=== PATIENT | male | born 1940 | race Caucasian/White ===

== ENCOUNTER 2016-05-14 15:08 | Inpatient (IN) | payer MEDICARE, MEDICAID ==
[~2016-05-14] VITALS: Ht 182.9 cm; Wt 74.5 kg
[~2016-05-14 15:08] MED LIST: ASPIRIN ADULT L81 M3 PO; CARDIZEM LA240 MG PO; CEFDINIR300 M1 PO; CYCLOBENZAPRINE10 MG PO; DELTASONE20 MG PO; DIGITEK250 MCG PO; FLEXERIL10 MG PO; OMEPRAZOLE20 MG PO; POTASSIUM CHLO10 ME4 PO; SYMBICORT1 AE1 IH; TAMSULOSIN HYD0.4 MG PO; VICODIN 7.5/501 EACH PO; XARELTO20 MG PO
--- NOTE | 2016-05-14 15:42 | HISTORY AND PHYSICAL REPORT ---
Demographics: Admit date: 05/14/16 Chief complaint: SHORTNESS OF BREATH PRIMARY DIAGNOSIS: EXACERBATION OF COPD FAILED OP TEST Allergies: Coded Allergies: No Known Allergies (01/02/16) History of present illness: History of present illness: 75 YEAR OLD male with COPD and atrial fibrillation who presented to office last week with complaint of dyspneA WITH cough productive of yellow sputum. patient was started on antibiotics. In follow up 72 hours later patient had not improved and was more dypneic . Despite this he refused hospitalization. Patient returned to today feeling poorly with dyspnea and cough. His lungs had diffuse rhonchi and wheezes with right basilar rales. He has been admitted for treatment of acute bronchitis and pneumonia with copd exacerbation Past medical history: Family HX Family Hx Insignificant Yes Immunization HX DT/Tetanus Unknown Flu NEVER Pneumonia REFUSED General CAD? No Angina: No AL: Yes Hypertension? Yes Hyperlipidemia? Yes CHF? No DVT? No PE? No COPD? Yes Asthma? Yes Anemia? No GERD? No Gastric ulcers? No GI Bleed? No Hernia? No Thyroid Problems? No Hypothyroidism? No CVA? No Seizures? No Diabetes? No Renal Insuffiency? No UTI? No Stones? No GB Disease: No Nephritic Syndrome? No Asplenia? No Hepatitis? No Sickle Cell Disease? No Arthritis? No Migraines? No Cataracts? Yes Glaucoma? No MRSA? No HIV? No TB? No Anxiety? No Depression? No Cancer? No More? Yes Additional hx: ATRIAL FIB Past Surgical HX Previous Surgery?Y HERNIA REPAIR 1959' LT MUSCLE ARM & LEG RIGHT KNEE SURGERY CATARACTS ON R EYE Current home meds: Reported Medications Aspirin (Aspirin EC) 81 MG PO DAILY 30 Days Potassium Chloride 10 MEQ PO DAILY 30 Days Omeprazole (Omeprazole 20MG) 20 MG PO DAILY 30 Days BUDESONIDE/FORMOTEROL FUMARATE (Symbicort 160-4.5 Mcg Inhaler) 1 PUFF IH BID 30 Days Cyclobenzaprine Hcl (Cyclobenzaprine 10MG) 10 MG PO DAILY TAMSULOSIN HCL (Tamsulosin 0.4MG) 0.4 MG PO QHS Digoxin (Digitek) 250 MCG PO DAILY Social Hx: Smoking HX Tobacco No Alcohol Alcohol: No Hx of Drug Use Drug Use? No Review of systems: Constitutional chills, fever. Respiratory see HPI. Cardiovascular no symptoms reported Gastrointestinal/Abdominal no symptoms reported Genitourinary no symptoms reported. Musculoskeletal no symptoms reported. Neurological Yes: no symptoms reported. 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 COPD exacerbation 2. Pneumonia Plan: admit for IV antibiotics, steroids
[2016-05-14 16:05] LABS: HEMOGLOBIN 17.4 g/dL (14.1-18.0); LYMPH # 4.7 K/mm3 (0.7-4.5); LYMPH % 23.5 % (10-50)
[2016-05-14 16:08] LABS: BUN 26 mg/dL (7-18); GFR (ESTIMATED) 59 ML/MIN (>60)
[2016-05-14 16:41] VITALS: BP 110/80
[2016-05-14] MEDS ORDERED: DALIRESP500 MCG PO (16:58)
[2016-05-14] MEDS ORDERED: AZITHROMYCIN250 M1 PO (16:59)
[2016-05-14] MEDS ORDERED: FUROSEMIDE 40MG40 M1 PO (16:59)
[2016-05-14] MEDS ORDERED: ACETAMINOPHEN-H1 TA2 PO (17:00)
[2016-05-14 17:06] LABS: NEUTROPHILS 63 % (42-76)
[2016-05-14 17:14] VITALS: BP 117/79
[2016-05-14 17:27] LABS: ALLEN'S TEST Y
[2016-05-14 17:28] LABS: OXYGEN RA
[2016-05-14 17:49] VITALS: BP 120/73
[2016-05-14 19:47] VITALS: BP 116/52
[2016-05-14 20:11] VITALS: BP 116/52
[2016-05-15] VITALS (8 sets, daily range): BP systolic 111–135; BP diastolic 62–77
[2016-05-15 06:19] LABS: LYMPH % 29.1 % (10-50)
[2016-05-15 06:31] LABS: HEMOGLOBIN 15.1 g/dL (14.1-18.0)
--- NOTE | 2016-05-15 06:52 | RADIOLOGY REPORT PS360 ---
CHEST(2 VIEWS-NOT PORTABLE) HISTORY: shortness of breath, emphysema R/O PNEUMONIA ORDERING PHYSICIAN: Fletcher Stevenson MD PATIENT AGE: 75 years COMPARISON: 08/24/2015 FINDINGS: The cardiomediastinal silhouette and pulmonary vascularity are within normal limits. Chronic interstitial changes are present with pleural thickening bilaterally and chronic parenchymal opacity in the left lower lobe. The findings are similar when compared to 07/13/2015. No lobar consolidation or collapse.. No acute bony abnormalities. IMPRESSION: COPD with chronic pleural parenchymal changes, no acute finding
--- NOTE | 2016-05-15 07:04 | ACUTE CARE PROGRESS NOTE (QUA) ---
Progress Notes Subjective Date 05/15/16 Time 0701 Note Patient reports feeling about the same. Cough is productive of thick white sputum. No fevers overnight. He is awake and alert. Standing at bedside he has audible chest congestion. When asked to cough he seems mostly to produce sputum and phlegm from the back of his throat as opposed coughing. Lung exam reveals diffuse rhonchi and expiratory wheezes. Heart has a regular rate and rhythm. Chest x-ray from yesterday when compared to previous chest x-rays shows chronic changes with questionable RIGHT lower lobe infiltrate best seen on the lateral film Await cultures. Continue antibiotics. Start steroids. Speech consult for swallowing evaluation Objective Findings Last VS-Temp:97.9 B/P:111/62 Pulse:65 Resp:18 SaO2:96 OXYGEN Last weight lbs:164 oz:4 K.503 Method:Bed Scales Laboratory Tests 05/15/16 0600: WBC 17.2 H, RBC 5.34, Hgb 15.1, Hct 46.0, MCV 86.2, RDW 14.9, Plt Count 186, MPV 9.2, Gran % 60.4, Gran # 10.4 H, Lymphocytes % 29.1, Monocytes % 5.3, Eosinophils % 4.6, Basophils % 0.6, Lymphocytes # 5.0 H, Monocytes # 0.9, Eosinophils # 0.8 H, Basophils # 0.1, PUBS MCHC 32.5, MCH 28.0 05/14/16 1726: ABG pH 7.44, ABG pCO2 (Temp Corrct 42.9, ABG pO2 (Temp Correct 65.0 L, ABG HCO3 29.2 H, ABG Total CO2 30.0 H, ABG O2 Sat (Calculated) 93, Serg Test Y, Blood Gas Comments RIGHT RADIAL 05/14/16 1550: Sodium 136, Potassium 4.2, Chloride 96 L, Carbon Dioxide 35 H, BUN 26 H, Creatinine 1.2, Estimated GFR (MDRD) 59, Glucose 118 H, Calcium 8.6, WBC 19.8 H, RBC 6.17, Hgb 17.4, Hct 53.1 H, MCV 86.0, RDW 15.0, Plt Count 206, MPV 9.8, Gran % 66.8, Gran # 13.2 H, Total Counted 100, Lymphocytes % 23.5, Monocytes % 5.6, Eosinophils % 3.2, Basophils % 0.9, Neutrophils 63, Lymphocytes (Manual) 32 , Lymphocytes # 4.7 H, Monocytes (Manual) 5, Monocytes # 1.1 H, Eosinophils # 0.6 H, Basophils # 0.2, Platelet Estimate NORMAL, Macrocytosis 3+, PUBS MCHC 32.8, MCH 28.2, Mycoplasma pneumon IgM NON-REACTIVE Microbiology 05/14 2154 SPUTUM: Sputum Culture - RES 05/14 2154 SPUTUM: Gram Stain - RES 05/14 1549 BLOOD: Anaerobic Blood Culture - RECD 05/14 155 BLOOD: Aerobic Blood Culture - RECD 05/14 155 BLOOD: Anaerobic Blood Culture - RECD 05/14 1549 BLOOD: Aerobic Blood Culture - RECD Reviewed: medications, vital signs, lab results Assessment/Plan Problem List 1. COPD exacerbation 2. Pneumonia Patient condition Stable This inpt stay is expected to cross 2 MNs from start of care Yes
--- NOTE | 2016-05-15 07:42 | PHARMACY CLINIC NOTE ---
Patient Demographics Patient Demographics Admission date: 05/14/16 Date: 05/15/16 Time: 0741 Allergies Coded Allergies: No Known Allergies (01/02/16) HEIGHT- FT: 6 IN: 0.00 K.503 VTE General Information Labs: Laboratory Tests 05/15 05/14 0600 1550 Hematology Hgb (14.1 - 18.0 g/dL) 15.1 17.4 Hct (42.0 - 52.0 %) 46.0 53.1 H Plt Count (142 - 424 K/mm3) 186 206 Disclaimer The following section includes nursing documentation that has been pulled in for pharmacy review. Clinical trial participant? No VTE prophylaxis [id number] VTE prophylaxis ordered? Yes Type of prophylaxis/treatment: KISHOR at 0742
--- NOTE | 2016-05-15 15:33 | ST BEDSIDE DYSPHAGIA EVAL ---
SUBJECTIVE-DYSPHAGIA Date: 05/15/16 Time: 1500 Eval Type: Initial Certification - Admitted Date: 05/14/16 Primary Diagnosis: EXACERBATION OF COPD FAILED OP TEST Reason for Consult: DYSPHAGIA Pt/Caregiver Concerns: PATIENT REPORTS NO DIFFICULTIES Onset of symptoms- 05/14/16 0100 Symptoms have worsened? NO improved? NO resolved? NO since onset. Current Diet: REGULAR/THINS Allergies Coded Allergies: No Known Allergies (01/02/16) Home Medications Reported Medications Roflumilast (Daliresp) 500 MCG PO DAILY #30 Azithromycin (Azithromycin 250MG Tab) 250 MG PO DAILY #15 Furosemide 40 MG PO BID #30 HYDROCODONE/ACETAMINOPHEN (Hydrocodon-Acetaminophen 5-325) 1 TAB PO PRN PRN PAIN #30 Aspirin (Aspirin EC) 81 MG PO DAILY 30 Days Potassium Chloride 10 MEQ PO DAILY 30 Days Omeprazole (Omeprazole 20MG) 20 MG PO DAILY 30 Days BUDESONIDE/FORMOTEROL FUMARATE (Symbicort 160-4.5 Mcg Inhaler) 1 PUFF IH BID 30 Days Cyclobenzaprine Hcl (Cyclobenzaprine 10MG) 10 MG PO DAILY TAMSULOSIN HCL (Tamsulosin 0.4MG) 0.4 MG PO QHS Digoxin (Digitek) 250 MCG PO DAILY Is this assessment r/t stroke? No OBJECTIVE COMMUNICATION/COGNITION Barriers to communication/cog? No ORAL-MOTOR STRUCTURE/FUNCTION Structure/Function WFL: Labial, Buccal, Lingual, Velar, Mandibular. Facial Asymmetry None Laryngeal Function Strong: Voluntary Cough, Throat Clearing. Vocal Quality Normal Dentition Edentulous RESPIRATORY STATUS/HISTORY Is resp status/hx a concern? Yes Requires Oxygen: Cannula Breathes from mouth? No Risk-fatigue due to comp.resp? Yes DYSPHAGIA SIGNS W/CONSISTENCY Any S/S of Dysphagia? No ASSESSMENT/PLAN ASSESSMENT Impression Mr. Sawyer, a 75 year old male, was referred for a bedside evaluation of swallowing by his physician, Dr. Stevenson. Mr. Sawyer reports he has no difficulties with swallowing. He said he will get choked on water occasionally. Mr. Sawyer was given the following consistencies: thins via straw and open cup and regular. No signs of dysphagia were noted. At this time, no diet modifications are warranted. Speech therapy is not recommended. Should problems continue, a modfied barium swallow would be recommended. PLAN SWALLOW GUIDELINES Standard Aspiration Prec. PATIENT/CAREGIVER EDUCATION Able-recall/restate what told? Yes RN educated on Diet Consistency Rehab Medicare G Code Plan Medicare/G Code eligible? 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
[2016-05-16] VITALS (7 sets, daily range): BP systolic 101–138; BP diastolic 51–66
[2016-05-16 06:59] LABS: HEMOGLOBIN 15.8 g/dL (14.1-18.0); LYMPH # 1.8 K/mm3 (0.7-4.5); LYMPH % 7.4 % (10-50)
--- NOTE | 2016-05-16 08:18 | ACUTE CARE PROGRESS NOTE (QUA) ---
Progress Notes Subjective Date 05/16/16 Time 0816 Note Patient finally feels like he is starting to improve. He notices less dyspnea. Speech evaluation was had yesterday and he does not aspirate. Patient appears comfortable and is resting without any nasal cannula oxygen. Lung exam is significant for less wheezing compared to yesterday but rhonchi remain. There are no focal rales. White count has increased but I believe this is due to the steroids 1. Continue steroids and antibiotics 2. Pulmonary consultation today 3. Given Vistaril when necessary anxiety Objective Findings Last VS-Temp:98.2 B/P:135/64 Pulse:86 Resp:20 SaO2:93 OXYGEN Last weight lbs:164 oz:4 K.503 Method:Bed Scales Laboratory Tests 05/16/16 0605: Sodium 134 L, Potassium 3.8, Chloride 98, Carbon Dioxide 29, BUN 24 H, Creatinine 1.0, Estimated Creat Clear 68, Estimated GFR (MDRD) 73, Glucose 150 H, Calcium 8.5, WBC 24.6 *H, RBC 5.46, Hgb 15.8, Hct 47.2, MCV 86.4, RDW 15.3, Plt Count 185, MPV 10.0, Gran % 90.6 H, Gran # 22.3 H, Lymphocytes % 7.4 L, Monocytes % 1.9, Eosinophils % 0.0 L, Basophils % 0.1, Lymphocytes # 1.8, Monocytes # 0.5, Eosinophils # 0.0, Basophils # 0.0, PUBS MCHC 33.6, MCH 29.0 Assessment/Plan Problem List 1. COPD exacerbation 2. Pneumonia Patient condition Stable This inpt stay is expected to cross 2 MNs from start of care Yes at 0817
[2016-05-16 09:34] LABS: NEUTROPHILS 93 % (42-76)
--- NOTE | 2016-05-16 18:07 | CONSULT NOTE ---
Consult Note Note: Reason for consultation: Chronic obstructive pulmonary disease exacerbation Requested by: Dr. Stevenson Chief complaint: "My chest was hurting so much." History of present illness: Mr. 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 I have been following him for several years and last saw him in mid March at which time he was relatively stable, dyspneic with ordinary activities of daily living and complaining of a persistent cough which was productive of variable amounts of thick white, sometimes yellow or brownish sputum. He was wheezing, as always lately despite taking Symbicort 160/4.5 twice daily, Atrovent and azithromycin on Wednesdays and Fridays to help prevent exacerbations. Unfortunately, Mr. Sawyer continues to smoke (although he denies it). I watched him light up a cigarette after the last visit when he went out to the parking lot. In the last several weeks, he's been more dyspneic than usual and has had more cough now productive of darker sputum. He said that the reason he came to the hospital was because he was having severe substernal chest pains radiating to the LEFT side. He was also much more breathless than usual. Treatment with methylprednisolone, bronchodilators and levofloxacin has helped quite a bit and I suspect that cessation of smoking here has also been of benefit to him. He feels much better today and is coughing up sputum more readily. He is not recall having any fever area of his appetite is good and he was eating when I came to his bedside. The tray was pretty much clean. He has chronic pain which is always with him. Mr. Sawyer says he sleeping better and he has not recently had symptoms of esophageal reflux. He is edentulous. The rest of the 14 point review of systems is currently negative. He has chronic lymphocytic leukemia which does not require treatment currently. Dr. Boyce is following him for this. I reviewed the inpatient medications. Social history: Mrs. Sawyer has Occasions of diabetes and Mr. Sawyer is her primary caregiver. A neighbor has come over to help now. This neighbor is the sister of the young man who helps Mr. Sawyer around the house and to is now his healthcare surrogate. Mr. Sawyer tried to chop wood during a nice day a couple of weeks ago. "I could only get through one piece and then I quit." Breathlessness stopped him. 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 Family history is significant for the fact that his father of lung cancer. All of his siblings have and he has no family except his . They never had children, I believe. On physical examination, Mr. Somers is a chronically ill-appearing man who is alert and oriented and appears much better than described in the medical record. He actually appears better than he did at the time of the last visit to me. Vital signs: Blood pressure 138/61, temperature 98.6, pulse 50, respiratory rate 20 and oxygen saturation 97 percent on room air. HEENT: Sclerae clear; oropharynx; no evidence of thrush. Neck: No adenopathy Chest: Symmetrical expansion; hyperresonance by percussion bilaterally; prolonged expiratory phase of ventilation with diffuse expiratory wheezes. Heart: Regular rhythm; no murmur Skin: Ecchymoses over the forearms; no rash Extremities: No clubbing or edema. I reviewed his chest x-ray and see no evidence of pneumonia. Assessment and plan: Mr. Sawyer is suffering an acute exacerbation of chronic obstructive pulmonary disease likely brought on by smoking. Chest pain has apparently resolved and he told me that he had seen a sander and polisher here. That is apparently not the case. If he will admit that he smoking and except some help in quitting, he may suffer from frequent exacerbations less. I recommend that he go home on azithromycin on Wednesdays and Fridays as well as Daliresp in addition to his other respiratory medications. Thank you for the opportunity to participate in his care once again. at 1807
[2016-05-17] VITALS (7 sets, daily range): BP systolic 105–131; BP diastolic 56–75
[2016-05-17 06:40] LABS: LYMPH # 1.5 K/mm3 (0.7-4.5)
[2016-05-17 08:34] LABS: NEUTROPHILS 91 % (42-76)
--- NOTE | 2016-05-17 08:48 | ACUTE CARE PROGRESS NOTE (QUA) ---
Progress Notes Subjective Date 05/17/16 Time 0845 Note Patient reports feeling better. His cough remains productive and his sputum has grown Staphylococcus hemolyticus. This is sensitive to clindamycin. He is in no distress. Lungs still have diffuse rhonchi but no wheezing. Heart has a regular rate and rhythm. White blood cell count is decreased I have switched his antibiotics to IV clindamycin for the next 24 hours. I anticipate discharge tomorrow with oral clindamycin. Patient also needs to stop smoking. Objective Findings Last VS-Temp:97.6 B/P:105/56 Pulse:83 Resp:22 SaO2:95 ROOM AIR Last weight lbs:164 oz:4 K.503 Method:Bed Scales Laboratory Tests 05/17/16 0615: WBC 19.0 H, RBC 5.27, Hgb 15.0, Hct 46.0, MCV 87.4, RDW 15.3, Plt Count 200, MPV 9.6, Gran % 88.6 H, Gran # 16.9 H, Total Counted 100, Lymphocytes % 8.0 L , Monocytes % 3.2, Eosinophils % 0.1, Basophils % 0.1, Neutrophils 91 H, Lymphocytes (Manual) 5 L, Lymphocytes # 1.5, Monocytes (Manual) 4, Monocytes # 0.6, Eosinophils # 0.0, Basophils # 0.0, Platelet Estimate NORMAL, PUBS MCHC 32.6, MCH 28.5 Assessment/Plan Problem List 1. COPD exacerbation 2. Pneumonia Patient condition Improving Plan: continue current care, make medication changes This inpt stay is expected to cross 2 MNs from start of care Yes at 0847
[2016-05-18 00:20] VITALS: BP 144/71
[2016-05-18 03:47] VITALS: BP 139/75
[2016-05-18 07:17] LABS: HEMOGLOBIN 14.9 g/dL (14.1-18.0); LYMPH # 2.6 K/mm3 (0.7-4.5); LYMPH % 15.6 % (10-50)
--- NOTE | 2016-05-18 07:25 | ACUTE CARE PROGRESS NOTE (QUA) ---
Progress Notes Subjective Date 05/18/16 Time 0723 Note Patient feels better. Sputum production is decreasing. He denies dyspnea this morning and has been resting without any use of supplemental oxygen. Patient looks better. Lung exam still has rhonchi and faint wheezes although rhonchi clear significantly after coughing. Heart has regular rate and rhythm. Patient is improving. He will be discharged home to continue outpatient steroids and antibiotics. He will follow-up in the office in one week Objective Findings Last VS-Temp:97.1 B/P:139/75 Pulse:66 Resp:18 SaO2:92 ROOM AIR Last weight lbs:164 oz:4 K.503 Method:Bed Scales Assessment/Plan Problem List 1. COPD exacerbation 2. Acute bronchitis 3. Infection, staphylococcal Patient condition Improving Plan: initiate discharge plan This inpt stay is expected to cross 2 MNs from start of care Yes at 0772
--- NOTE | 2016-05-18 07:26 | Discharge Summary ---
Demographics Admit date: 05/14/16 Discharge date: 05/18/16 Discharge diagnoses Problem List 1. COPD exacerbation 2. Acute bronchitis 3. Infection, staphylococcal History of present illness History of present illness 75 YEAR OLD male with COPD and atrial fibrillation who presented to office last week with complaint of dyspneA WITH cough productive of yellow sputum. patient was started on antibiotics. In follow up 72 hours later patient had not improved and was more dypneic . Despite this he refused hospitalization. Patient returned to today feeling poorly with dyspnea and cough. His lungs had diffuse rhonchi and wheezes with right basilar rales. He has been admitted for treatment of acute bronchitis and pneumonia with copd exacerbation. Patient was admitted and chest x-ray did not reveal any pneumonia. White blood cell count was elevated. Patient was started on Levaquin intravenously and IV Solu-Medrol. Within 24 hours of IV Solu-Medrol patient's wheezing began to improve. After 48 hours his sputum culture grew Staphylococcus hemolyticus that was sensitive to clindamycin. Antibiotics were switched to IV clindamycin. Patient's rhonchi improved after switching antibiotics. After 24 hours patient became significantly more ambulatory and was able to be weaned from oxygen. He was evaluated by pulmonology service who agreed with diagnosis of chronic obstructive pulmonary disease exacerbation. Patient has chronic bronchitis as well. On the day of discharge the patient still had pain wheezing but significantly improved. He was ambulating without dyspnea. He was discharged home and will follow-up in the office in one week. Medications Medications: Discharge meds are as noted. Follow up Follow up in office in: 7 DAYS with: Fletcher Stevenson MD at [id number]
[2016-05-18] MEDS ORDERED: PREDNISONE20 MG PO (07:28)
[2016-05-18] MEDS ORDERED: CLINDAMYCIN HC300 MG PO (07:28)
[2016-05-18] MEDS ORDERED: VISTARIL25 MG PO (07:30)
[2016-05-18 08:30] VITALS: BP 135/75
[2016-05-18 08:35] VITALS: BP 135/75
[2016-05-18 08:50] LABS: NEUTROPHILS 84 % (42-76)
[2016-05-18 09:45] VITALS: BP 135/75
== END 2016-05-18 09:55 | disposition home or self-care (01) | DRG 192 ==
LOC: 2ND 15:08
PROVIDERS: Family Medicine
DX: J44.1 Chronic obstructive pulmonary disease with (acute) exacerbation (principal); I48.91 Unspecified atrial fibrillation; B95.7 Other staphylococcus as the cause of diseases classified elsewhere; J20.9 Acute bronchitis, unspecified; J44.0 Chronic obstructive pulmonary disease with (acute) lower respiratory infection; I10 Essential (primary) hypertension
CPT/HCPCS: G0238

== ENCOUNTER 2016-10-24 14:28 | Inpatient (IN) | payer MEDICARE, MEDICAID ==
[~2016-10-24] VITALS: Ht 182.9 cm; Wt 86.2 kg
[2016-10-24] VITALS (12 sets, daily range): BP systolic 108–156; BP diastolic 53–94
[~2016-10-24 14:28] MED LIST changes: +ACETAMINOPHEN-H1 TA2 PO; +AZITHROMYCIN250 M1 PO; +CLINDAMYCIN HC300 MG PO; +DALIRESP500 MCG PO; +FUROSEMIDE 40MG40 M1 PO; +PREDNISONE20 MG PO; +VISTARIL25 MG PO
--- NOTE | 2016-10-24 14:37 | Emergency Room Report ---
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 N Clinical Suspician of Infection? N Mental Status: 1 - Regular (Normal Baseline) Sepsis Risk:Severe Sepsis Risk Have you (or family members/close friends) recently traveled outside the [place]? N If Yes, where/when: Have you had exposure to infectious disease within the past month? TB? Other? Specify: Comment The patient arrives by ambulance complaining of rapid heartbeat, shortness breath, chest pain. He says that he has chronic chest pain but it is worse today. He indicates he has a history of an irregular heartbeat in the past and has been told he needs a pacemaker. He does not know his specific diagnosis. He says he has been short of breath since Saturday. He has a history of chronic obstructive pulmonary disease. 3 hours ago he began dispensing a racing heartbeat and had increased chest pain, increased shortness of breath, diaphoresis, and near syncope. ALLERGIES Coded Allergies: No Known Allergies (10/24/16) Home Medications Reported Medications Roflumilast (Daliresp) 500 MCG PO DAILY #30 TAB Bisoprolol Fumarate 5 MG PO DAILY #30 Furosemide 40 MG PO BID #30 HYDROCODONE/ACETAMINOPHEN (Hydrocodon-Acetaminophen 5-325) 1 TAB PO PRN PRN PAIN #30 CETIRIZINE HCL (Cetirizine 10MG) 10 MG PO DAILYP PRN allergies Roflumilast (Daliresp) 500 MCG PO DAILY Azithromycin (Azithromycin 250MG TAB) 250 MG PO DAILY Aspirin (Aspirin EC) 81 MG PO DAILY 30 Days Potassium Chloride 10 MEQ PO DAILY 30 Days Omeprazole (Omeprazole 20MG) 20 MG PO DAILY 30 Days Cyclobenzaprine Hcl (Cyclobenzaprine 10MG) 10 MG PO DAILY TAMSULOSIN HCL (Tamsulosin 0.4MG) 0.4 MG PO QHS Digoxin (Digitek) 250 MCG PO DAILY History Medical History General CAD? No Angina: No [place]: Yes Hypertension? Yes Hyperlipidemia? Yes CHF? No DVT? No PE? No COPD? Yes Asthma? Yes Anemia? No GERD? No Gastric ulcers? No GI Bleed? No Hernia? No Thyroid Problems? No Hypothyroidism? No CVA? No Seizures? No Diabetes? No Renal Insuffiency? No End Stage Renal Disease? No UTI? No Stones? No GB Disease: No Nephritic Syndrome? No Asplenia? No Hepatitis? No Sickle Cell Disease? No Arthritis? No Migraines? No Cataracts? Yes Glaucoma? No MRSA? No HIV? No TB? No Anxiety? No Depression? No Cancer? No More? Yes Additional hx: ATRIAL FIB Immunization Hx Ped.Immunizations UTD Yes DT/Tetanus Unknown Flu Refused Pneumonia Received In Past Surgical Hx Previous Surgery?Y HERNIA REPAIR LT MUSCLE ARM & LEG RIGHT KNEE SURGERY CATARACTS ON R EYE HERNIA 2016 Family History Family Hx Diabetes No CAD No Hypertension Yes Hyperlipidemia No Cancer No TB No Social History Smoking Hx Smoker: Former Smoker Tobacco: No Type Cigarettes Packs/day < 1 Pack Alcohol Alcohol: No Review of Systems All Other Systems Reviewed and Negative Constitutional diaphoresis, weakness Respiratory shortness of breath Cardiovascular chest pain, palpitations Physical Exam Vital Signs Vital Signs Date Time Temp Pulse Resp B/P Pulse O2 O2 Flow FiO2 Ox Delivery Rate 10/24 1611 118 24 126/75 99 15 10/24 1432 97.8 157 26 98 General Appearance moderate distress, tachypnea with auditory wheezing and rhonchi Eye Exam - bilateral eye normal exam, bilateral eye PERRL, bilateral eye EOMI Ear, Nose, Throat hearing grossly normal, normal ENT inspection Neck normal inspection, non-tender, supple, full range of motion Respiratory Status Yes: trachea midline, chest symmetrical, non tender chest. No: respiratory distress. Lung Sounds bilateral: normal breath sounds, lungs clear. Cardiovascular no peripheral edema, no gallop, no JVD, no murmur, no rub, tachycardia, irregularly irregular Peripheral Pulses Pulses normal Yes Gastrointestinal normal bowel sounds, normal exam, non tender, soft, no organomegaly Extremities non-tender, normal range of motion, normal inspection Neurologic alert, normal exam, oriented x 3 Mental status normal mood/affect Skin intact, normal color, warm/dry Medical Decision Making LABS/Meds/Orders Pt receiving controlled substance in ED? No Results/Orders Laboratory Tests 10/24/16 1435: B-Natriuretic Peptide 35 10/24/16 1435: Sodium 143, Potassium 4.0, Chloride 105, Carbon Dioxide 29, BUN 12, Creatinine 1.0, Estimated Creat Clear 74, Estimated GFR (MDRD) 73, Glucose 103, Calcium 8.5 , Total Bilirubin 0.6, AST 14 L, ALT 12, Alkaline Phosphatase 117 H, Creatine Kinase 48, CK-MB (CK-2) Rel Index 1.0, CK and CKMB Interp < 0.5, Troponin I < 0.02, Total Protein 7.1, Albumin 3.0 L, Globulin 4.1 H, Albumin/Globulin Ratio 0.7 L, PT 10.1, INR 0.94, APTT 24.1, WBC 18.2 H, RBC 5.97, Hgb 15.6, Hct 50.3, MCV 84.3, RDW 15.4, Plt Count 188, MPV 9.0, Gran % 52.2, Gran # 9.5 H, Total Counted 100, Lymphocytes % 30.0, Monocytes % 4.1, Eosinophils % 12.6 H, Basophils % 1.1, Neutrophils 48, Lymphocytes (Manual) 34, Lymphocytes # 5.5 H, Monocytes (Manual) 4, Monocytes # 0.8, Eosinophils # 2.3 H, Eosinophils # ( Manual) 10 H, Basophils # 0.2, Basophils # (Manual) 4 H, Platelet Estimate NORMAL, PUBS MCHC 31.0 L, MCH 26.1 L, Digoxin < 0.20 L Current Medication Orders Sig/Martin Start time Last Medication Dose Route Stop Time Status Admin Sodium Chloride 1,000 ML .STK-MED ONE 10/24 1630 DC IV Digoxin 0.25 MG ONCE ONE 10/24 161 WI 10/24 IV 10/24 161 1647 Diltiazem HCl 100 MG ONCE ONE 10/24 1514 10/24 Sodium Chloride 100 ML IV 10/25 0114 1649 Diltiazem HCl 20 MG ONCE ONE 10/24 151 WI 10/24 IV 10/24 151 1650 Enoxaparin Sodium 80 MG ONCE ONE 10/24 151 WI 10/24 SC 10/24 151 1647 Etomidate 7.5 MG ONCE ONE 10/24 151 WI IV 10/24 151 Furosemide 40 MG ONCE ONE 10/24 151 DC 07/ IV 10/24 1516 1647 Morphine Sulfate 4 MG ONCE ONE 10/24 1515 DC 07/ IV 10/24 1516 1648 Ondansetron HCl 4 MG ONCE ONE 10/24 1515 DC 07/ IV 10/24 1516 1646 Sodium Chloride 100 ML .STK-MED ONE 10/24 1502 DC IV Diltiazem HCl 0 .STK-MED ONE 10/24 1501 DC IV Sodium Chloride 1,000 ML .STK-MED ONE 10/24 1449 DC IV Aspirin 0 .STK-MED ONE 10/24 1437 DC .ROUTE Nitroglycerin 0 .STK-MED ONE 10/24 1437 DC SL Diltiazem HCl 0 .STK-MED ONE 10/24 1435 DC IV Sodium Chloride 10 ML PRN PRN 10/24 1430 AC IV 10/25 1430 Orders Procedure Date/time Status BRAIN NATRIURETIC PEPTIDE 10/24 1506 Complete DIGOXIN 10/24 1442 Complete DIFFERENTIAL-WBC 10/24 1435 Complete ELECTROCARDIOGRAM REQUEST 10/24 1431 Active CHEST-PORTABLE 10/24 1431 Active IV SALINE LOCK 10/24 1431 Active PARTIAL THROMBOPLASTIN TIME 10/24 1431 Complete PROTHROMBIN TIME 10/24 1431 Complete CBC WITH AUTO DIFF 10/24 1431 Complete CARDIAC ENZYMES 10/24 1431 Complete CHEM 12 PROFILE 10/24 1431 Complete 12 LEAD EKG-RUSH (INITIAL) 10/24 UNK Active CM/EKG CM/EKG Comments EKG interpreted by John Randall MD: Rhythm: Atrial fibrillation with rapid response Rate: 161 [place]: LEFT Ectopy: none Conduction: RIGHT bundle branch block, old ST Segment Changes: none T Wave Changes: none Q Waves: none No evidence of acute ischemia or injury XRAY/CT/US XRAY/CT/US XRAY chest Comment X-ray interpreted by radiologist: Congestive heart failure, chronic pleural thickening Progress - 3:10 PM: Case discussed with Dr. Armstrong. He recommends continuing Cardizem drip, Lasix, anticoagulate with Lovenox, and admit. 4:25 PM: I have discussed the case with Dr. Sutherland for Dr. Stevenson who agrees to admit the patient to the hospital. We discussed the patient's clinical information, including history, exam, laboratory and radiology results and ED course. Per hospital procedure, I will write temporary bridge inpatient orders on the patient. Specific orders requested by the admitting physician: No antibiotics at this time. Continue Cardizem drip. Repeat digoxin dose at 10 PM. Admit to stepdown unit. Procedures Cath/NG/IV/CPR/Add.Proc Progress Cardioversion performed for rapid atrial fibrillation with chest pain, shortness of breath, respiratory distress. Informed consent obtained. The patient was sedated with etomidate 7.5 mg. 100 percent oxygen by nonrebreather mask. alarm security or surveillance monitor. Defibrillator pads applied. Cardioverted with 120 J, 200 J, 200 J biphasic without change in rhythm. The patient tolerated well. Departure Departure Disposition Still a Patient Clinical Impression Primary Impression: Rapid atrial fibrillation Secondary Impressions: Chest pain Qualifiers: Chest pain type: unspecified Qualified Code: R07.9 - Chest pain, unspecified Congestive heart failure Qualifiers: Congestive heart failure type: unspecified congestive heart failure type Congestive heart failure chronicity: acute Qualified Code: I50.9 - Heart failure, unspecified Condition STABLE Referrals Fletcher Stevenson MD (Family) ED Critical Care Critical Care Yes Time spent 30-74 min Vital system(s) involved: Circulatory Failure I was present at bedside for Coordinating pt's care, Interpreting EKGs/Strips , During my initial exam, Reviewing lab results, Reviewing old records, Discussing pt condition, For re-examinations, Examining radiographs
[2016-10-24 14:57] LABS: HEMOGLOBIN 15.6 g/dL (14.1-18.0); LYMPH # 5.5 K/mm3 (0.7-4.5)
--- OUTSIDE RECORDS SUMMARY | 2016-10-24 15:02 | External Medical Summary Rpt ---
Author Author , Organization [employer] Address Unknown Phone Unavailable Care Team Providers Care Rail Engineer Name Role Phone A Kristy QUEZADA MD PSC, A Unavailable Unavailable Kristy QUEZADA MD PSC [facility], [facility] Unavailable Unavailable [facility], [facility] Unavailable Unavailable SOL SUN KAYODE, Unavailable Unavailable SOL SUN KAYODE ALLRAN JR RITA, ALLRAN Unavailable Unavailable JR RITA AYOOB AND, AYOOB AND Unavailable Unavailable BEINEKE, BEINEKE Unavailable Unavailable TANYA AND, TANYA Unavailable Unavailable AND BESSON JENNA, BESSON Unavailable Unavailable JENNA WALLACE JAMILAH, Unavailable Unavailable WALLACE JAMILAH WALLACE JAMILAH, Unavailable Unavailable WALLACE JAMILAH FONTANEZ ALL, FONTANEZ ALL Unavailable Unavailable ROBBINS JESS, ROBBINS Unavailable Unavailable JESS [facility] Unavailable Unavailable SERVICE, [facility] Unavailable Unavailable SERVICE, [facility] Unavailable Unavailable [facility], [facility] Unavailable Unavailable [facility], [facility] Unavailable Unavailable LAB, [facility] COOK JOSH, COOK JOSH Unavailable Unavailable BRENDEN REINA, BRENDEN REINA Unavailable Unavailable FRANCESCA EMY, Unavailable Unavailable FRANCESCA EMY FRANCESCA EMY, Unavailable Unavailable FRANCESCA EMY FRANCESCA, SHASHI, Unavailable Unavailable FRANCESCA, SHASHI ARIANNA CHR, Unavailable Unavailable ARIANNA CHR DELL CAR, DELL CAR Unavailable Unavailable EVAN PHI, Unavailable Unavailable EVAN PHI FIELD AMB, FIELD AMB Unavailable Unavailable QUAN, Unavailable Unavailable QUAN PELAEZ NAN, PELAEZ Unavailable Unavailable NAN MAHMOOD LEATHA, MAHMOOD LEATHA Unavailable Unavailable TAYLOR KEYANA, TAYLOR Unavailable Unavailable KEYANA [facility] Unavailable Unavailable INC, [facility] Unavailable Unavailable HOSPITAL P, [facility] DONTE RUIZ, Unavailable Unavailable DONTE RUIZ [facility], Unavailable Unavailable [facility] ARMENDARIZ JENNA, ARMENDARIZ JENNA Unavailable Unavailable HUI MIKHAIL, HUI MIKHAIL Unavailable Unavailable BECKY MAR, BECKY Unavailable Unavailable MAR [facility], [facility] KUMAR MARIAN, Unavailable Unavailable KUMAR MARIAN NINI, CALLIE W, Unavailable Unavailable NINI, CALLIE W [facility] Un[facility] Un[facility] GLENN JR, GLENN JR Unavailable Unavailable GLENN JR DWI, GLENN Unavailable Unavailable JR DWI [facility] Un[facility] Unavailable [facility], [facility] CHERISE ART, CHERISE Unavailable Unavailable ART JAMES CON, JAMES CON Unavailable Unavailable POLLOCK, POLLOCK Unavailable Unavailable POLLOCK JAM, Unavailable Unavailable POLLOCK JAM POLLOCK JAM, Unavailable Unavailable POLLOCK JAM NELLY, JANE P, Unavailable Unavailable NELLY, JANE P [facility] Unavailable Unavailable LAB [facility] Unavailable Unavailable [facility], [facility] LORI BET, LORI BET Unavailable Unavailable KIRILL, KIRILL Unavailable Unavailable KIRILL JENNA, KIRILL JENNA Unavailable Unavailable ALIRIO BRILL YOL, Unavailable Unavailable ALIRIO BRILL YOL REYEZ CLEO, REYEZ CLEO Unavailable [facility]available [facility] Unavailable Unavailable LAB[facility] PAVEZ MAR, PAVEZ MAR Unavailable Unavailable PAULA JURGEN Unavailable Unavailable ANNEL, PAULA JURGEN [facility]EL [facility] Unavailable [facility]available [facility], [id number], Unavailable Unavailable [id number] Unavailable [facility]available [id number] [address] [id number], [facility] [id number] [address] [id number] TANIYA ABIMAEL, TANIYA ABIMAEL Unavailable Unavailable SHANELL CAR, Unavailable Unavailable SHANELL CAR SHASHY KEY, SHASHY Unavailable Unavailable KEY RHIANNON, RHIANNON Unavailable Unavailable SONG MIREYA, SONG MIREYA Unavailable Unavailable [facility], MILDRED Unavailable Unavailable [facility] Unavailable [facility] Unavailable Un[facility] Unavailable Un[facility], [facility] Unavailable Unavailable [facility], [facility] JAMES DON, Unavailable Unavailable JAMES DON JAMES DON, Unavailable Unavailable JAMES DON JAMES, DON R, Unavailable Unavailable JAMES, DON R RAYMOND RONNY, RAYMOND Unavailable Unavailable RONNY JANENE PALMA, JANENE Unavailable Unavailable PALMA JANENE MADALYN, JANENE Unavailable Unavailable MADALYN DAVIS, OTTO Unavailable Unavailable [facility], Unavailable Unavailable [facility] Unavailable [facility] HIEU GAMEZ, HIEU Unavailable Unavailable [facility], Unavailable [facility], Unavailable [facility]available [facility] LUKEKEISHAJERO NIXON, Unavailable Unavailable JONAHTIMOTEOYA MAR Purpose Continuity of Care Document - 04-25-2007 through 2016 Problems Code Diagnosis DOS Provider Status 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 09-11-2016 [facility] E785 HYPERLIPIDE 09-04-2016 [facility] PHYSICIANS UNSPECIFIED GROUP I119 HYPERTENSIV 09-04-2016 [facility] E HEART PHYSICIANS DISEASE GROUP WITHOUT HEART FAILURE 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 J410 SIMPLE 09-04-2016 Darnell GARLAND MD PSC BRONCHITIS J449 CHRONIC 09-04-2016 [facility] OBSTRUCTIVE PHYSICIANS PULMONARY GROUP DISEASE UNS R0600 DYSPNEA 09-04-2016 [facility] UNSPECIFIED PHYSICIANS GROUP R938 ABNORMAL 09-04-2016 [facility] FIND ON DX PHYSICIANS IMAGING OT GROUP SPEC BODY STRCT I200 UNSTABLE 08-27-2016 [facility] ANGINA PHYSICIANS GROUP I10 ESSENTIAL 08-25-2016 [facility] P N P45150 ASH TAZLINA 08-25-2016 [facility] ANGINA PECTORIS I272 OTHER 08-25-2016 [facility] R0602 SHORTNESS 08-25-2016 [facility] R079 CHEST PAIN 08-25-2016 [facility] I4891 UNSPECIFIED 07-03-2016 [facility]IAL HOME FIBRILLATIO MEDICAL N EQUIPME I482 CHRONIC 06-14-2016 Darnell QUEZADA ATRIAL PSC FIBRILLATIO N J9610 CHRONIC 06-14-2016 Darnell QUEZADA RESPIRATORY PSC FAIL UNS HYPOXIA/HYP ERCAPNIA R296 REPEATED 06-14-2016 Darnell KHAN MD PSC B957 OTH 05-14-2016 [facility] STAPHY[facility]OC [facility] CUSS CAUSE INC OF DZ CLASSIFIED ELSW J209 ACUTE 05-14-2016 [facility] BRONCHITIS [facility] UNSPECIFIED INC J440 COPD WITH 05-14-2016 [facility] ACUTE LOWER [facility] INC RESPIRATORY INFECTION J441 CHRONIC 05-14-2016 [facility] OBSTRUCTIVE [facility] PULMONARY INC DZ W/EXACERBAT ION 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-08-2016 Darnell CARR MD PSC FIBRILLATIO N C9110 CHRONIC 01-11-2016 [facility] 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 R634 ABNORMAL 01-11-2016 [facility] WEIGHT LOSS [facility] INC R1110 VOMITING 01-09-2016 [facility] UNSPECIFIED PHYSICIANS GROUP K828 OTHER 01-02-2016 [place] SPECIFIED MEDICAL DISEASES OF IMAGING ASS GALLBLADDER R630 ANOREXIA 01-02-2016 [facility] K921 MELENA 11-07-2015 [facility] PHYSICIANS GROUP K5710 DIVERTICULO 11-03-2015 [place] SIS SM MEDICAL INTEST W/O IMAGING ASS PERF/ABSC W/O BLEED R195 OTHER FECAL 11-03-2015 [facility] ABNORMALITI IMAGING ASS ES U14545 LYMPHOCYTOS 10-26-2015 [facility] IS PATHOLOGY SYMPTOMATIC LAB NETW J690 PNEUMONITIS 10-26-2015 [facility] DUE TO SERV INHALATION [facility] OF FOOD AND VOMIT B370 CANDIDAL 10-19-2015 [facility] STOMATITIS SERV [facility] R112 NAUSEA WITH 10-19-2015 [facility] VOMIT[facility] SERV UNSPECIFIED FOUNDATION I509 HEART 10-15-2015 [facility] FAILURE HOME UNSPECIFIED MEDICAL EQUIPME R531 WEAKNESS 09-20-2015 [facility] 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 SERV [facility] R9431 ABNORMAL 09-18-2015 [facility] ELECTROCARD SERV IOGRAM [facility] I4510 UNSPECIFIED 09-15-2015 [facility] RIGHT [facility] BUNDLE-BRAN FOUNDATION CH BLOCK R001 BRADYCARDIA 09-15-2015 [facility] UNSPECIFIED F[facility]ATION B965 PSEUDOMONAS 09-14-2015 [facility] CAUSE OF SERV DZ [facility] CLASSIFIED ELSEWHERE J9600 ACUTE 09-14-2015 [facility]ATORY SERV FAIL UNS FOUNDATION HYPOXIA/HYP ERCAPNIA J9811 ATELECTASIS 09-14-2015 [facility] M28581 ENCOUNTER 09-14-2015 [facility] SURG [facility] AFTERCARE [facility] FLW SURG DIGESTIVE SYS Z049 ENCOUNTER 09-13-2015 [facility] EXAMINATION SERV &OBSERVATIO FOUNDATION N FOR UNS REASON K5900 CONSTIPATIO 09-12-2015 [facility] N [facility] UNSPECIFIED F[facility]ATION R140 ABDOMINAL 09-10-2015 [facility] DISTENSION SERV GASEOUS [facility] R0989 OTH SPEC SX 09-09-2015 [facility] & SIGNS SERV INVLV THE FOUNDATION CIRC & RESP SYS R918 OTHER 09-09-2015 [facility] NONSPECIFIC SERV ABNORMAL [facility] FINDING OF LUNG FIELD A419 SEPSIS 09-08-2015 [facility] UNSPECIFIED SERV ORGANISM FOUNDATION E873 ALKALOSIS 09-08-2015 [facility] E876 HYPOKALEMIA 09-08-2015 [facility] J90 PLEURAL 09-08-2015 [facility] EFFUSION SERV NOT FOUNDATION ELSEWHERE CLASSIFIED J9620 ACUTE 09-08-2015 [facility] CHRONIC SERV RESP FAIL FOUNDATION UNS HYPOXIA/HYP ERCAPNIA J984 OTHER 09-08-2015 [facility] DISORDERS SERV OF LUNG FOUNDATION R109 UNSPECIFIED 09-08-2015 [facility] ABDOMINAL SERV PAIN [facility] Z4682 ENCOUNTER 09-08-2015 [facility] ADJUST HOSPI NON-VASCULA R CATHETER 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-07-2015 [facility] DISORDER SERV UNSPECIFIED FOUNDATION I517 CARDIOMEGAL 09-07-2015 [facility] Y SERV [facility] I5189 OTHER 09-07-2015 [facility] ILL-DEFINED SERV HEART [facility] DISEASES R0902 HYPOXEMIA 09-06-2015 [facility] R0689 OTHER 09-02-2015 [facility] ABNORMALITI SERV ES OF FOUNDATION BREATHING J942 HEMOTHORAX 08-30-2015 [facility] J948 OTHER 08-30-2015 [facility] SPECIFIED SERV PLEURAL FOUNDATION CONDITIONS L538 OTHER 08-30-2015 [facility] SPECIFIED SERV ERYTHEMATOU FOUNDATION S CONDITIONS Z9889 OTHER 08-30-2015 [facility] SPECIFIED SERV POSTPROCEDU FOUNDATION RAL STATES 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 K4030 UNILAT 08-25-2015 [place] [facility] NGUYEN W/OBST HOSPI W/O GANGRN NOT RECUR K4040 UNILAT 08-25-2015 [facility] IN[facility]INAL SERV NGUYEN FOUNDATION W/GANGREN NOT SPEC RECUR 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-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 [facility] 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 USE SERV OF [facility] ANTICOAGULA NTS K78818 ELEVATED 08-24-2015 [facility] P UNSPECIFIED K4090 UNILAT 08-24-2015 [facility] INGUINAL SERV NGUYEN W/O FOUNDATION OBST/GANGRE N NOT RECUR K5660 UNSPECIFIED 08-24-2015 [facility] INTESTINAL AMBULANCE SERVICE OBSTRUCTION R1031 RIGHT LOWER 08-24-2015 [facility] PAIN HOSPI 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 J189 PNEUMONIA 08-03-2015 [place] UNSPECIFIED MEDICAL ORGANISM IMAGING ASS J439 EMPHYSEMA 08-03-2015 [place] UNSPECIFIED [facility] INTERNAL MED J929 PLEURAL 08-03-2015 [place] [facility] WITHOUT IMAGING ASS ASBESTOS R002 PALPITATION 08-03-2015 [facility] S [facility] R031 NONSPECIFIC 08-03-2015 [facility] LOW SERV BLOOD-PRESS FOUNDATION URE READING R42 DIZZINESS 08-03-2015 [facility] AND [facility] GIDDINESS FOUNDATION 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 08-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 [place] 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 MED J42 UNSPECIFIED 07-13-2015 [place] CHRONIC MEDICAL BRONCHITIS IMAGING ASS Z7722 CONTACT W/ 07-13-2015 [facility] & SUSPECTED SERV EXPOS [facility] ENVIR TOBACCO SMOKE J40 BRONCHITIS 03-25-2015 [place] NOT MEDICAL SPECIFIED IMAGING ASS ACUTE OR CHRONIC R091 PLEURISY 01-21-2015 [facility] 4280 CONGESTIVE 01-14-2015 [facility] HOME FAILURE MEDICAL UNSPECIFIED EQUIPME 15829 OBSTRUCTIVE 01-14-2015 [facility] WITHOUT EXACERBAT 496 CHRONIC 01-14-[address] [facility] HOME OBSTRUCTION MEDICAL NEC EQUIPME 64092 NUCLEAR 12-28-2014 [facility] SCLEROSIS JAMILAH 31717 OBST 09-06-2014 A Kristy QUEZADA CHRONIC PSC BRONCHITIS W/ACUTE BRONCHITIS 58420 LOSS OF 09-06-2014 A Kristy QUEZADA WEIGHT PSC 53220 OTHER CHEST 09-06-2014 A Kristy QUEZADA PAIN PSC 52267 OBSTRUCTIVE 09-05-2014 [facility] SLEEP HOME APNEA MEDICAL EQUIPME 7242 LUMBAGO 04-01-2014 A Kristy QUEZADA MD PSC V0382 NEED PROPH 04-01-2014 A Kristy QUEZADA VACCINATION PSC AGAINST STREP PNEUMONE 25639 ATRIAL 01-13-2014 [facility] F[facility]RILLATIO [facility] N INC 08783 REFLUX 01-13-2014 [facility] ESOPHAGITIS [facility] INC 86766 UNS 01-13-2014 [facility] GASTRITIS&G [facility] ASTRODUODIT INC IS W/O MENTION HEMORR 51463 ABDOMINAL 01-13-2014 [facility] PAIN, [facility] GENERALIZED INC V5869 LONG-TERM 01-13-2014 [facility] (CURRENT) [facility] USE OF INC OTHER MEDICATIONS 55712 CHEST PAIN 11-24-2013 [facility] UNSPECIFIED [facility] INC 5110 PLEURISY 10-29-2013 [place] WITHOUT MEDICAL MENTION IMAGING ASS EFFUS/CURRE NT TB 7862 COUGH 10-29-2013 [facility] 81920 INSOMNIA 12-16-2012 A Kristy QUEZADA UNSPECIFIED PSC 89522 OTHER 12-16-2012 A Kristy QUEZADA MALAISE AND PSC FATIGUE 47472 FEVER 05-23-2012 J[facility] UNSPECIFIED DON 40698 WHEEZING 05-23-2012 JAMES DON 1120 CANDIDIASIS 05-21-2012 JAMES OF MOUTH DON 78943 OTHER 05-21-2012 FRANCESCA DISEASES OF EMY LUNG NOT ELSEWHERE CLASSIFIED 4940 BRONCHIECTA 01-28-2012 [place] SIS WITHOUT MEDICAL ACUTE IMAGING ASS EXACERBATIO N 5119 UNSPECIFIED 01-28-2012 [place] PLEURAL MEDICAL EFFUSION IMAGING ASS 59916 OTHER 01-28-2012 [facility] NONSPECIFIC [facility] ABNORMAL INC FINDING OF LUNG FIELD 09867 OSTEOARTHRO 01-02-2012 JAMES S INVLV MX DON SITES BUT NOT SPEC GEN 79200 OBSTRUCTIVE 11-12-2011 [facility] CHRONIC [facility] BRONCHITIS INC WITH EXACERBATIO N 99392 ESOPHAGEAL 11-12-2011 [facility] REFLUX [facility] INC 2859 UNSPECIFIED 10-05-2011 [facility] ANEMIA [facility] INC 5180 PULMONARY 10-05-2011 [place] COLLAPSE [facility] 486 PNEUMONIA, 09-28-2011 [place] ORGANISM MEDICAL UNSPECIFIED IMAGING ASS 5070 PNEUMONITIS 09-28-2011 [place] DUE TO JAM INHALATION OF FOOD OR VOMITUS 26971 SHORTNESS 09-28-2011 [facility] OF BREATH [facility] INC 15981 ABDOMINAL 09-28-2011 [facility] PAIN, [facility] EPIGASTRIC INC V1261 PERSONAL 09-28-2011 [facility] HISTORY JAM PNEUMONIA RECURRENT 46678 PNEUMONIA 06-08-2011 JAMES DUE TO DON OTHER SPECIFIED BACTERIA 2724 OTHER AND 05-11-2011 [facility] UNSPECIFIED PHYSICIANS [place] HYPERLIPIDE [place] 2768 HYPOPOTASSE 05-11-2011 [facility] [place] PHYSICIANS [place] 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 6019 UNSPECIFIED 05-11-2011 [place] [address] PAIN IN 05-11-2011 COMBINED JOINT, PHYSICIANS MULTIPLE LA SITES 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 5183 PULMONARY 11-28-2009 [facility] A 56617 ACUTE 11-28-2009 [facility] SERV FAILURE FOUNDATIO 7856 ENLARGEMENT 11-28-2009 [facility] NODES 7931 NONSPEC 11-28-2009 [facility] FIND RAD SERV OTH EXAM FOUNDATIO BODY STRUCT LUNG FIELD V1582 PERS HX 11-28-2009 [place] TOBACCO USE [facility] PRESENTING [facility] V7282 PRE-OPERATI 11-28-2009 [facility] VE SERV RESPIRATORY FOUNDATIO EXAMINATION 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 42322 DYSPHAGIA 11-18-2009 [place] UNSPECIFIED MEDICAL IMAGING ASS 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 88409 OSTEOARTHRO 08-23-2009 [facility] SIS UNSPEC DON R WHETHER GEN/LOC LOWER LEG 82389 OSTEOARTHRO 08-23-2009 [facility] S UNSPEC DON R GEN/LOC OTH SPEC SITES 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 RUIZ A N OF RETINA UNSPECIFIED 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 [facility] & 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-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[facility] & SENILE [facility]ITREOUS MACULAR ASSOCIATES DEGENERAMANDIO O N OF RETINA 86191 CRYSTALLINE 07-20-2008 [facility] & DEPOSITS VITREOUS IN VITREOUS ASSOCIATES O 4610 ACUTE 02-27-2008 E[facility], MAXILLARY DON R SINUSITIS 4659 ACUTE URIS 02-27-2008 [facility], OF DON R UNSPECIFIED SITE 8472 LUMBAR 11-14-2007 ERIKA, SPRAIN AND DON R STRAIN 4660 ACUTE 08-02-2007 JAMES, BRONCHITIS DON R 4871 INFLUENZA 07-04-2007 [facility], WITH OTHER DON R RESPIRATORY MANIFESTATI ONS 53092 PAIN IN 04-25-2007 JAMES, JOINT, DON R SHOULDER REGION 98581 UNSPECIFIED 04-25-2007 E[facility], SYNOVITIS DON R AND TENOSYNOVIT IS D64.9 ANEMIA, UNSPECIFIED D72.829 ELEVATED WHITE BLOOD CELL COUNT, UNSPECIFIED I45.2 BIFASCICULA R BLOCK I48.91 UNSPECIFIED ATRIAL FIBRILLATIO N J44.0 CHRONIC OBSTRUCTIVE PULMON DISEASE W ACUTE LOWER RESP INFCT J44.9 CHRONIC OBSTRUCTIVE PULMONARY DISEASE, UNSPECIFIED K40.90 UNIL INGUINAL HERNIA, W/O OBST OR GANGR, NOT SPCF RECUR K56.69 OTHER INTESTINAL OBSTRUCTION R07.9 CHEST PAIN, UNSPECIFIED R10.9 UNSPECIFIED ABDOMINAL PAIN Medications Na ND Rx Da Fi Fi Am Da Di Ph RX Ph St me C No te ll ll ou ys ag ar # ys at rm s nt no ma ic us Or Da si cy ia de te s n re d CE 16 05 06 30 30 00 RI Ac TI 71 -2 -1 .0 00 TE ti RI 40 3- 6- 00 01 ve ZI 27 20 20 18 AI NE 10 17 17 50 D 2 54 PH HC AR L MA 10 CY MG #3 93 TA 8 BL ET LO 63 05 08 3 [address] Ac RA 30 -1 -1 .0 TE 41 EP ti ZE 40 7- 6- 00 28 HE ve PA 77 20 20 AI NS M 30 10 10 D 1 5 PH DO MG AR N MA R TA CY BL ET 03 93 8 # 03 93 LO 00 05 06 3 [address] Ac RA 22 -1 -2 .0 TE 41 EP ti ZE 82 7- 1- 00 28 HE ve PA 05 20 20 AI NS M 95 10 10 D 1 0 PH DO MG AR N MA R TA CY BL ET 03 93 8 # 03 93 LO 00 05 05 3 [address] Ac RA 22 -1 -1 .0 TE 41 EP ti ZE 82 7- 7- 00 28 HE ve PA 05 20 20 AI NS M 95 10 10 D 1 0 PH DO MG AR N MA R TA CY BL ET 03 93 8 # 03 93 TN 00 04 04 00 12 6 RI 72 No Ac OM 60 -1 -2 0. TE 86 t ti ET 31 2- 4- 00 86 Av ve PERAZA 58 20 20 0 AI ai ZI 55 08 08 D la NE 8 PH bl -C AR e OD M EI #3 NE 93 8 SY RU P Procedures Procedure DOS Code Location Performer Comment ADMN SET A7003 YOUR YOUR SM VOL 7 PHARMACY PHARMACY NONFILTR card.io PNEUMAT NEBULIZR DISPBL ALBUTEROL J7620 YOUR YOUR TO 2.5 7 PHARMACY PHARMACY MG & card.io IPRATROPI UM BROM TO 0.5 MG ALBUTEROL J7620 A C A C TO 2.5 7 PILAR QUEZADA MD MG & PSC PSC IPRATROPI UM BROM TO 0.5 MG ECG 65295 [facility] ROUTINE 7 PHYSICIAN ECG S GROUP W/LEAST 12 LDS I&R ONLY R & L HRT 50130 [facility] CATH 7 PHYSICIAN WINJX HRT S GROUP ART& L VENTR IMG RADIOLOGI 54083 [facility] C 7 MEDICAL EXAMINATI IMAGING ON CHEST ASS [place] FRONTAL ECG 35885 [facility] ELIZABETH ROUTINE 7 [facility] W/LEAST P 12 LDS I&R ONLY ADMN SET A7003 YOUR YOUR SM VOL 7 PHARMACY PHARMACY NONFILTR [employer] PNEUMAT NEBULIZR DISPBL ALBUTEROL J7620 YOUR YOUR TO 2.5 7 PHARMACY PHARMACY [employer] IPRATROPI UM BROM TO 0.5 MG O2 CONC 1 E1390 [facility] [place] 7 HOME HOME 85%/>02 MEDICAL MEDICAL CONC AT EQUIPME EQUIPME PRSC FLW RATE O2 CONC 1 E1390 [facility] [place] 7 HOME HOME 85%/>02 MEDICAL MEDICAL CONC AT EQUIPME EQUIPME PRSC FLW RATE RADIOLOGI 20668 [facility] C EXAM 7 MEDICAL MEDICAL CHEST 2 IMAGING IMAGING VIEWS ASS ASS FRONTAL&L ATERAL O2 CONC 1 E1390 [facility] [place] 7 HOME HOME 85%/>02 MEDICAL MEDICAL CONC AT EQUIPME EQUIPME PRSC FLW RATE O2 CONC 1 E1390 [facility] [place] 6 HOME HOME 85%/>02 MEDICAL MEDICAL CONC AT EQUIPME EQUIPME PRSC FLW RATE O2 CONC 1 E1390 [facility] [place] 6 HOME HOME 85%/>02 MEDICAL MEDICAL CONC AT EQUIPME EQUIPME PRSC FLW RATE PHRM Q0513 YOUR YOUR DISPENSIN 6 PHARMACY PHARMACY G FEE [employer] INHALATIO N RX; PER 30 DAYS ALBUTEROL J7620 YOUR YOUR TO 2.5 6 PHARMACY PHARMACY [employer] IPRATROPI UM BROM TO 0.5 MG ADMN SET A7003 YOUR YOUR SM VOL 6 PHARMACY PHARMACY [facility] LLC LLC PNEUMAT NEBULIZR DISPBL O2 CONC 1 E1390 [facility] [place] 6 HOME HOME 85%/>02 MEDICAL MEDICAL CONC AT [facility] G0463 [facility] A[facility] OUTPATIEN 6 [facility] T CLIN INC INC VISIT ASSESS & MGMT PT O2 CONC [address] [facility] 6 HOME HOME 85%/>02 MEDICAL MEDICAL CONC AT EQUIPCHI [facility] FLW RATE COMPREHEN 89921 [facility] SIVE 6 MEM HOSP MEM HOS[facility] METABOLIC INC INC PANEL LOCM Q9967 [facility] [phone] MEM HOS[facility] MG/ML INC INC IODINE CONCENTRA TION PER ML COLLECTIO 54630 [facility] N VENOUS 6 [facility] [place] [address] [facility] ABDOMEN 6 MEM HOS[facility]OS[facility] W/CONTRAS INC INC T MATERIAL BLOOD 76726 [facility] COUNT 6 MEM H[facility] COMPLETE INC INC AUTO&AUTO DIFRNTL WBC ANES 47388 [facility] UPPER GI 6 ANESTH PALMA ENDOSCOPY OF THE PROXIMAL BLUE TO DUODENUM O2 CONC [address] [facility] [facility] 6 HOME HOME 85%/>02 MEDICAL MEDICAL CONC AT [facility] FL[facility] RATE O2 CONC [address] [facility] 6 HOME MAR 85%/>02 MEDICAL CONC AT [facility] FLW RATE RADEX 28094 LUCY AYALA UPPER GI 6 [facility] W/WO INC INC GLUCAGON/ DELAY IMAGES W/KUB RADEX 60505 [place] ALL UPPER GI 6 MEDICAL W/WO IMAGING GLUCAGON/ ASS DELAY IMGES W/O KUB FLOW 70764 LUCY AYAL[facility] CYTOMETRY 6 [facility] CELL INC INC SURF MARKER TECHL ONLY 1ST FLOW 23229 LUC[facility] AYAL[facility] CYTOMETRY 6 [facility] CELL INC INC SURF MARKER TECHL ONLY EA COLLECTIO 43453 LUC[facility] AYALA N VENOUS 6 [facility] BLOOD INC INC VENIPUNCT URE FLOW 21213 MOLECULAR MOLECULAR CYTOMETRY 6 INTERPJ PATHOLOGY PATHOLOGY 2-8 LAB NETW LAB NETW MARKERS NEBULIZER E0570 MILDRED LEVY WITH 6 HOME HOME COMPRESSO MEDICAL MEDICAL R EQUIPME EQUIPME O2 CONC 1 E1390 MILDRED DILLON DEL PORT 6 HOME KEY 85%/>02 MEDICAL CONC AT EQUIPME PRSC FLW RATE WALKER E0143 [facility] FOLDING 6 WHEELED ADJUSTABL E/FIXED HEIGHT SEAT E0156 [facility] ATTACHMEN 6 T WALKER ECG 04127 [place] TANIYA ABIMAEL ROUTINE 6 MEDICAL ECG SERV W/LEAST FOUNDATIO 12 LDS N I&R ONLY ECG 06994 [place] PELAEZ ROUTINE 6 MEDICAL NAN ECG SERV W/LEAST FOUNDATIO 12 LDS N I&R ONLY SBSQ 19703 [facility] 6 MEDICAL KEYANA CARE/DAY SERV 25 FOUNDATIO MINUTES N RADIOLOGI 54217 [place] JAMES CON C 6 MEDICAL EXAMINATI SERV ON CHEST FOUNDATIO SINGLE N VIEW FRONTAL RADIOLOGI 74880 [place] WILLIEK C 6 MEDICAL AYA MAR EXAMINATI SERV ON CHEST FOUNDATIO SINGLE N VIEW FRONTAL SBSQ 13134 [place] [facility] 6 MEDICAL KEYANA CARE/DAY SERV 15 FOUNDATIO MINUTES N SBSQ [address] [facility] 6 MEDICAL KEYANA CARE/DAY SERV 15 FOUNDATIO MINUTES N RADIOLOGI 28524 [place] ARMENDARIZ JENNA C 6 MEDICAL EXAMINATI SERV ON CHEST FOUNDATIO SINGLE N VIEW FRONTAL RADIOLOGI 65876 [place] MAHMOOD LEATHA C 6 MEDICAL EXAMINATI SERV ON CHEST FOUNDATIO SINGLE N VIEW FRONTAL SBSQ [address] [place] [address] [facility] 6 MEDICAL CARE/DAY SERV 25 FOUNDATIO MINUTES N RADIOLOGI 08073 [place] MAHMOOD LEATHA C 6 MEDICAL EXAMINATI SERV ON CHEST FOUNDATIO SINGLE N VIEW FRONTAL RADEX 48083 [place] OTTO ABDOMEN 1 6 MEDICAL SUSAN SERV ANTEROPOS FOUNDATIO TERIOR N VIEW ECG 14228 [facility] ROUTINE 6 MEDICAL ECG SERV W/LEAST FOUNDATIO 12 LDS N I&R ONLY SBSQ 69930 [facility] 6 MEDICAL CARE/DAY SERV 25 FOUNDATIO MINUTES N CRIT[address] [facility] 6 MEDICAL ILL/INJUR SERV ED FOUNDATIO PATIENT N INIT 30-74 MIN ECG 65885 [facility] ROUTINE 6 MEDICAL ECG SERV W/LEAST FOUNDATIO 12 LDS N I&R ONLY RADEX 36352 [facility] 6 Y OF CAR [place] [facility] TER[place]IEW RADIOLOGI 23897 [place] MAHMOOD LEATHA C 6 MEDICAL EXAMINATI SERV ON CHE[place] [address] [place] REYEZ CLEO ABDOMEN & 6 MEDICAL PELVIS SERV W/CONTRAS FOUNDATIO T N [place] [address] THORAX 15933 [place] CRANE CON 6 MEDICAL W/CONTRAS SERV T FOUNDATIO MATERIAL N RADEX 95492 [facility] SHANELL ABDOMEN 1 6 Y OF CAR [place] [facility] TERIOR VIEW RADIOLOGI 59218 [place] ZAGUROVSK C 6 MEDICAL AYA MAR EXAMINATI SERV ON CHEST FOUNDATIO SINGLE N VIEW FRONTAL SBSQ 29317 [facility] 6 MEDICAL CARE/DAY SERV 25 FOUNDATIO MINUTES N RADEX ABD 01705 [place] PAULA COMPL 6 MEDICAL JURGEN AQT ABD SERV ANNEL W/S/E/D FOUNDATIO VIEWS 1 N VIEW CH RADIOLOGI 34817 [place] CRANE CON C 6 MEDICAL EXAMINATI SERV ON CHEST FOUNDATIO SINGLE N VIEW FRONTAL SBSQ 21821 [facility] 6 MEDICAL AND CARE/DAY SERV 25 FOUNDATIO MINUTES [address] [facility] 6 MEDICAL [place] CARE/DAY SERV 30 FOUNDATIO MINUTES N ECG 48814 [facility] ROUTINE 6 MEDICAL ECG SERV W/LEAST FOUNDATIO 12 LDS N I&R ONLY ECHO 05522 [place] [facility] 6 MEDICAL ERIKA 2D SERV W/WOM-MOD FOUNDATIO E COMPL N SPEC&COLR D SBSQ 38542 [facility] 6 MEDICAL AND CARE/DAY SERV 25 FOUNDATIO MINUTES N RADIOLOGI 67853 [place] JAMES CON C 6 MEDICAL EXAMINATI SERV ON CHEST FOUNDATIO SINGLE N VIEW FRONTAL RADIOLOGI 75852 [place] JAMES CON C 6 MEDICAL EXAMINATI SERV ON CHEST FOUNDATIO SINGLE N VIEW FRONTAL ECG 43489 [place] SAGE CHI ROUTINE 6 MEDICAL ECG SERV W/LEAST FOUNDATIO 12 LDS N I&R ONLY RADIOLOGI 01979 [place] [facility] MED[facility] AYA MAR EXAMINATI SERV ON CHEST FOUNDATIO SINGLE N VIEW FRONTAL RADEX 78301 [facility] ABDOMEN 1 6 Y OF CAR [place] [facility] TERIOR VIEW RADEX 32232 [place] CHERISE ABDOMEN 1 6 MEDICAL ART SERV ANTEROPOS FOUNDATIO TERIOR N VIEW RADIOLOGI 68955 [place] ROBBINS C 6 MEDICAL JESS EXAMINATI SERV ON CHEST FOUNDATIO SINGLE N VIEW FRONT[place] CT THORAX 18654 [place] ARMENDARIZ JENNA 6 MEDICAL W/[place] [address] [place] AYOOB AND ABDOMEN & 6 MEDICAL PELVIS SERV W/CONTRAS FOUNDATIO T N MATERIAL RADIOLOGI 53740 [place] LUKEROK C 6 MEDICAL AYA MAR EXAMINATI SERV ON CHEST FOUNDATIO SINGLE N VIEW FRONTAL RADEX 40502 [facility] ABDOMEN 1 6 Y OF CAR [place] [facility] TERIOR VIEW RADEX 71777 [facility] ABDOMEN 1 6 Y OF CAR [place] [facility] TERIOR VIEW SBSQ 70772 [facility] 6 MEDICAL AND CARE/DAY SERV 25 FOUNDATIO MINUTES N SBSQ 85122 [facility] 6 MEDICAL AND CARE/DAY SERV 25 FOUNDATIO MINUTES N RADIOLOGI 80329 [place] DELL CAR C 6 MEDICAL EXAMINATI SERV ON CHEST FOUNDATIO SINGLE N VIEW FRONTAL RADIOLOGI 03764 [place] JAMES CON C 6 MEDICAL EXAMINATI SERV ON CHEST FOUNDATIO SINGLE N VIEW FRONTAL ECG 64306 [place] PELAEZ ROUTINE 6 MEDICAL NAN ECG SERV W/LEAST FOUNDATIO 12 LDS N I&R ONLY ECG 87498 [facility] AM[facility] MIKHAIL ROUTINE 6 MEDICAL ECG SERV W/LEAST FOUNDATIO 12 LDS N I&R ONLY ARTL 49485 UNIVERSIT UNIVERS CATHJ/CAN 6 Y OF Y OF [facility] MN[facility] [place] [address] [facility] SURG 6 MEDICAL FRANCO PATHOLOGY SERV FOUNDATIO GROSS&JESS N ROSCOPIC EXAM LEVEL III 03158 [facility] SURG 6 MEDICAL FRANCO PATHOLOGY SERV FOUNDATIO GROSS&JESS N ROSCOPIC EXAM ANESTHESI 86068 UNIVERS LORI BET A HERNIA 6 Y OF REPAIR [place] [facility] ABDOMEN NOS SBSQ 65092 [facility] 6 MEDICAL RONNY CARE/DAY SERV 25 FOUNDATIO MINUTES N RPR 1ST 38015 [facility] 6 MEDICAL RONNY HRNA AGE SERV 5 YRS/> FOUNDATIO INCARCERA N KISHOR THER 78335 LUCY AYALA PROPH/DX 6 [facility] NJX EA INC INC SEQL IV PUSH SBST/DRUG FAC CREATINE 75595 LUCY AYALA KINASE 6 [facility] [place] [address] LUCY AYALA LIPASE 6 [place] [address] [place] FONTANE[place] ALL ABDOMEN & 6 MEDICAL PELVIS IMAGING W/O ASS CONTRAST MATERIAL INITIAL 68139 [facility] 6 MEDICAL CHR CARE/DAY SERV [place] [address] LUCY AYALA AMYLASE 6 [facility] INC INC CREATINE 23377 LUCY AYALA KINASE MB 6 [facility] FRACTION INC INC ONLY INJECTION J2405 LUCY AYALA 6 [facility] ONDANSETR INC INC ON HCL PER 1 MG INJ J2543 LUCY AYALA PIPERACIL 6 [facility] YONATHAN INC INC SOD/TAZOB ACTAM SOD 1 G/0.125 G RADIOLOGI 19494 [place] FONT[place] ALL C 6 MEDICAL EXAMINATI IMAGING ON [place] [address] LUCYJOAN AYALA TROPONIN 6 [facility] QUANTITAT INC INC ARCENIO ECG 45179 LUCY AYALA ROUTINE 6 [facility] ECG INC INC W/LEAST 12 LDS TRCG ONLY W/[place] [address] LUCY AYALA INFUSION 6 [facility] THERAPY/P INC INC ROPHYLAXI S /DX 1ST TO 1 HR COMPREHEN 80839 LUCY AYALA SIVE 6 [facility] METABOLIC INC INC PANEL ECG 85283 LUCY IVÁNMARIBEL ROUTINE 6 [facility] W/LEAST P 12 LDS I&R ONLY GROUND A0425 [facility] MILEAGE 6 AMBULANCE AMBULANCE PER SERVICE SERVICE STATUTE MILE AMBULANCE A0429 [facility] SERVICE 6 AMBULANCE AMBULANCE BLS SERVICE SERVICE EMERGENCY TRANSPORT BLOOD 54258 LUCY AYALA COUNT 6 [facility] COMPLETE INC INC AUTO&AUTO DIFRNTL WBC COLLECTIO 94142 A Kristy WEST N VENOUS 6 PILAR PLEITEZ BLOOD PSC VENIPUNCT URE BLOOD 32009 A Kristy ROY JENNA COUNT 6 PILAR PLEITEZ COMPLETE PSC AUTO&AUTO DIFRNTL WBC NEBULIZER E0570 MILDRED MILDRED WITH 6 HOME HOME COMPRESSO MEDICAL MEDICAL R EQUIPME EQUIPME ECG 74992 LUCY BEVERLY ROUTINE 6 [facility] W/LEAST P 12 LDS I&R ONLY RADIOLOGI 18608 [place] FRANCESCA C 6 MEDICAL EMY EXAMINATI IMAGING ON CHEST ASS SINGLE VIEW FRONTAL INITIAL 53133 [facility] 6 [facility] CARE/DAY INTERNAL 70 MED MINUTES NEBULIZER E0570 MILDRED LEVY WITH 6 HOME HOME COMPRESSO MEDICAL MEDICAL R EQUIPME EQUIPME COLLECTIO 65882 LUCY AYALA N VENOUS 6 [facility] BLOOD INC INC VENIPUNCT URE COMPREHEN 25461 LUCY AYALA SIVE 6 [facility] METABOLIC INC INC PANEL PHRM Q0513 YOUR YOUR DISPENSIN 6 PHARMACY PHARMACY [facility] [employer] INHALATIO N RX; PER 30 DAYS RADIOLOGI 99543 [facility] ALL C 6 MEDICAL EXAMINATI IMAGING ON CHEST ASS SINGLE VIEW FRONTAL BLOOD 17618 LUCY AYALA COUNT 6 [facility] COMPLETE INC INC AUTO&AUTO DIFRNTL WBC RADIOLOGI 84881 LUCY AAYLA C EXAM 6 [facility] CHEST 2 INC INC VIEWS FRONTAL&L ATERAL ADMN SET A7003 YOUR YOUR SM VOL 6 PHARMACY PHARMACY NONFILTR [employer] PNEUMAT NEBULIZR DISPBL ALBUTEROL J7620 YOUR YOUR TO 2.5 6 PHARMACY PHARMACY [employer] IPRATROPI UM BROM TO 0.5 MG NEBULIZER E0570 MILDRED MILDRED WITH 6 HOME HOME COMPRESSO MEDICAL MEDICAL R EQUIPME EQUIPME NEBULIZER E0570 MILDRED MILDRED WITH 6 HOME HOME COMPRESSO MEDICAL MEDICAL R EQUIPME EQUIPME PHRM Q0513 YOUR YOUR DISPENSIN 5 PHARMACY PHARMACY [employer] INHALATIO N RX; PER 30 DAYS ALBUTEROL J7620 YOUR YOUR TO 2.5 5 PHARMACY PHARMACY So[facility] IPRATROPI UM BROM TO 0.5 MG RADIOLOGI 76707 [facility] ALL C EXAM 5 MEDICAL CHEST 2 IMAGING VIEWS ASS FRONTAL&L ATERAL CT THORAX 56173 LUCY AYALA 5 [facility] W/CONTRAS INC INC T MATERIAL RADIOLOGI 75473 LUCY AYALA C EXAM 5 [facility] CHEST 2 INC INC VIEWS FRONTAL&L ATERAL PHARM G0333 YOUR YOUR DISPEN 5 PHARMACY PHARMACY FEE INHAL [employer] RX; INITIAL 30-DAY SUPPLY NEBULIZER E0570 MILDRED LEVY WITH 5 HOME HOME COMPRESSO MEDICAL MEDICAL R EQUIPME EQUIPME ALBUTEROL J7620 YOUR YOUR TO 2.5 5 PHARMACY PHARMACY [employer] IPRATROPI UM BROM TO 0.[address] [facility] REMOVAL 5 JAMILAH JAMILAH INSERTION OF LENS CONTINUOU E0601 MILDRED ELVY S 5 HOME HOME POSITIVE MEDICAL MEDICAL AIRWAY EQUIPME EQUIPME PRESSURE DEVICE CONTINUOU E0601 MILDRED LEVY S 5 HOME HOME POSITIVE MEDICAL MEDICAL AIRWAY EQUIPME EQUIPME PRESSURE DEVICE CONTINUOU E0601 MILDRED LEVY S 5 HOME HOME POSITIVE MEDICAL MEDICAL AIRWAY EQUIPME EQUIPME PRESSURE DEVICE CONTINUOU E0601 MILDRED LEVY S 5 HOME HOME POSITIVE MEDICAL MEDICAL AIRWAY EQUIPME EQUIPME PRESSURE DEVICE CONTINUOU E0601 MILDRED LEVY S 5 HOME HOME POSITIVE MEDICAL MEDICAL AIRWAY EQUIPME EQUIPME PRESSURE DEVICE CONTINUOU E0601 MILDRED LEVY S 4 HOME HOME POSITIVE MEDICAL MEDICAL AIRWAY EQUIPME EQUIPME PRESSURE DEVICE FULL FACE A7030 MILDRED LEVY MASK 4 HOME HOME USED MEDICAL MEDICAL W/POS EQUIPME EQUIPME ARWAY PRESS DEVICE EA POLYSOM 13627 NEERAJ NIXON 6/>YRS 4 SLEEP 4/> NEUROSCIE ADDL NCES CENT AMA ATTND POLYSOM 33340 LUCY AYALA 6/>YRS 4 [facility] SLEEP 4/> INC INC ADDL AMA ATTND IMC/IMC G0461 LUCY AYALA PER 4 [facility] SPECIMEN; INC INC 1ST SNGL/MPX ANTIBODY STN SPECIAL 62970 LUCY AYALA STAIN 4 [facility] GROUP 1 INC INC MICROORGA NISMS I&R SPCL STN 38236 LUCY AYALA 2 I&R 4 [facility] EXCPT INC INC MICROORG/ ENZYME/[place] [address] LUCY AYALA SURG 4 [facility] PATHOLOGY INC INC GROSS&[place] [address] LUCY AYALA INFUSION 4 [facility] THERAPY INC INC PROPHYLAX IS/[place] [address] LUCY AYALA INFUSION 4 [facility] THERAPY/P INC INC ROPHYLAXI S /DX 1ST TO 1 HR SPMTRY 79614 LUCY AYALA W/VC 4 [facility] EXPIRATOR INC INC Y ALFREDO W/WO MXML VOL VNTJ ECHO 71696 LUCY LUCY TTHRC R-T 4 [facility] 2D INC INC W/WOM-MOD E COMPL SPEC&COLR D MYOCARDIA 73569 LUCY AYALA L SPECT 4 [facility] MULTIPLE INC INC STUDIES CV STRS 19668 GLENN ELIZABETH JR TST 4 DWI DWI XERS&/OR RX CONT ECG I&R ONLY MYOCARDIA 87482 TEX Parra 4 MEDICAL EMY PERFUSION IMAGING PLANAR ASS MULTIPLE STUDIES CV STRS 63551 KEITH PARKER JOSH TST 4 XERS&/OR RX CONT ECG W/O I&R RADIOLOGI 14055 LUCY AYALA C EXAM 4 [facility] CHEST 2 INC INC VIEWS FRONTAL&L ATERAL PRTBLE E0431 MILDRED MILDRED GASEOUS 3 HOME HOME O2 SYS MEDICAL MEDICAL RENT; EQUIPME EQUIPME FLWMTR HUMIDFR&M ASK PRTBLE E0431 MILDRED MILDRED GASEOUS 3 HOME HOME O2 SYS MEDICAL MEDICAL RENT; EQUIPME EQUIPME FLWMTR HUMIDFR&M ASK PRTBLE E0431 MILDRED MLIDRED GASEOUS 3 HOME HOME O2 SYS MEDICAL MEDICAL RENT; EQUIPME EQUIPME FLWMTR HUMIDFR&M ASK PRTBLE E0431 MILDRED MILDRED GASEOUS 3 HOME HOME O2 SYS MEDICAL MEDICAL RENT; EQUIPME EQUIPME FLWMTR HUMIDFR&M ASK INJ J0702 ERIKA JAMES BETAMETHA 3 DON DON SONE ACETATE & PHOSPHATE 3 MG RADIOLOGI 47999 FRANCESCA MA C EXAM 3 EMY EMY CHEST 2 VIEWS FRONTAL&L ATERAL INJECTION J0690 ERIKA WHITLOCKHENS 3 DON DON CEFAZOLIN SODIUM 500 MG PRTBLE E0431 MILDRED MILDRED GASEOUS 3 HOME HOME O2 SYS MEDICAL MEDICAL RENT; EQUIPME EQUIPME FLWMTR HUMIDFR&M ASK PRTBLE E0431 MILDRED MILDRED GASEOUS 2 HOME HOME O2 SYS MEDICAL MEDICAL RENT; EQUIPME EQUIPME FLWMTR HUMIDFR&M ASK PRTBLE E0431 MILDRED BARBERRELL GASEOUS 2 HOME HOME O2 SYS MEDICAL MEDICAL RENT; EQUIPME EQUIPME FLWMTR HUMIDFR&M ASK CT THORAX 43156 LUCY AYALA W/O 2 [facility] CONTRAST INC INC MATERIAL 3D 39016 LUCY AYALA RENDERING 2 [facility] INC INC W/INTERP& POSTPROC DIFF WORK STATION PRTBLE E0431 MILDRED MILDRED GASEOUS 2 HOME HOME O2 SYS MEDICAL MEDICAL RENT; EQUIPME EQUIPME FLWMTR HUMIDFR&M ASK TOBACCO 23105 JAMES JAMES USE 2 DON DON CESSATION INTERMEDI ATE 3-10 MINUTES PRTBLE E0431 MILDRED MILDRED GASEOUS 2 HOME HOME O2 SYS MEDICAL MEDICAL RENT; EQUIPME EQUIPME FLWMTR HUMIDFR&M ASK PRTBLE E0431 MILDRED MILDRED GASEOUS 2 HOME HOME O2 SYS MEDICAL MEDICAL RENT; EQUIPME EQUIPME FLWMTR HUMIDFR&M ASK SPMTRY 87963 LUCY AYALA W/VC 2 [facility] EXPIRATOR INC INC Y ALFREDO W/WO MXML VOL VNTJ RADIOLOGI 59457 LUCY AYALA C EXAM 2 [facility] CHEST 2 INC INC VIEWS FRONTAL&L ATERAL PRTBLE E0431 MILDRED BARBERRELL GASEOUS 2 HOME HOME O2 SYS MEDICAL MEDICAL RENT; EQUIPME EQUIPME FLWMTR HUMIDFR&M ASK NONINVASI 05161 LUCY AYALA VE 2 [facility] EAR/PULSE INC INC OXIMETRY SINGLE DETER THORACENT 08054 LUCY AYALA ESIS 2 [facility] PUNCTURE INC INC PLEURAL CAVITY ASPIRATIO N CYTP 70962 PATHOLOGY PATHOLOGY SLCTV 2 & & CELL CYTOLOGY CYTOLOGY ENHANCEME LAB LAB NT INTERPJ XCPT C/V COLLECTIO 72881 LUCY AYALA N VENOUS 2 [facility] BLOOD INC INC VENIPUNCT URE RADIOLOGI 48785 LUCY AYALA C EXAM 2 [facility] CHEST 2 INC INC VIEWS FRONTAL&L ATERAL CYANOCOBA 70161 LUCY AYALA BETTIE 2 [facility] VITAMIN INC INC B-12 TISS FRED 96264 LUCY AYALA SLIDE 2 [facility] SAMPS INC INC SKN/HR/NL S FNGI/ECTO PARASIT CUL BACT 99151 LUCY AYALA XCPT 2 [facility] URINE INC INC BLOOD/STO OL AEROBIC ISOL CULTURE 82489 LUCY AYALA BACTERIAL 2 [facility] ANY INC INC SOURCE ANAEROBIC ISO&ID CULTURE 34366 LUCY AYALA TUBERCLE/ 2 [facility] OTH INC INC ACID-FAST BACILLI ANY ISOL SMR PRIM 97094 LUCY AYALA SRC 2 [facility] GRAM/GIEM INC INC SA STAIN BCT FUNGI/VAHID L CELL 43401 LUCY AYALA COUNT 2 [facility] MISC BODY INC INC FLUIDS W/[place] [address] LUCY AYALA GUIDANCE 2 [facility] [place] [address] LUCY AYAL[facility] IRON 2 [facility] INC INC CARBOXYHE 93308 LUCY AYALA MOGLOBIN 2 [facility] QUANTITAT INC INC ARCENIO BLOOD 86855 LUCY AYALA GASES ANY 2 [facility] INC INC COMBINATI ON PH PCO2 PO2 CO2 HCO3 GLUCOSE 39163 LUCY AYALA BODY 2 [facility] FLUID INC INC OTHER THAN BLOOD IRON 87179 LUCY AYALA BINDING 2 [facility] CAPACITY INC INC LACTATE 45115 LUCY AYALA DEHYDROGE 2 [facility] NASE LDH INC INC PROTEIN 60280 LUCY AYALA XCPT 2 [facility] REFRACTOM INC INC ETRY SERUM PLASMA/WH L BLD CT THORAX 08041 LUCY AYALA W/O 2 [facility] CONTRAST INC INC MATERIAL CT THORAX 95976 LUCY AYALA W/O 2 [facility] CONTRAST INC INC MATERIAL SPUTUM 74702 LUCY AYALA OBTAINING 2 [facility] SPEC INC INC AEROSOL INDUCED TX SPX 3D 02401 [facility] ANFRANCESCA RENDERING 2 MEDICAL EMY IMAGING W/INTERP& ASS POSTPROC DIFF WORK STATION ECG 14636 LUCY AYALA ROUTINE 2 [facility] ECG INC INC W/LEAST 12 LDS TRCG ONLY W/O I&R ECG 26820 RUSH BEVERLY ROUTINE 2 JENNA JENNA ECG W/LEAST 12 LDS I&R ONLY PRTBLE E0431 MILDRED MILDRED GASEOUS 2 HOME HOME O2 SYS MEDICAL MEDICAL RENT; EQUIPME EQUIPME FLWMTR HUMIDFR&M ASK PRTBLE E0431 MILDRED MILDRED GASEOUS 2 HOME HOME O2 SYS MEDICAL MEDICAL RENT; EQUIPME EQUIPME FLWMTR HUMIDFR&M ASK SPMTRY 75707 MARIS POLLOCK W/VC 2 JAM JAM EXPIRATOR Y ALFREDO W/WO MXML VOL VNTJ PRTBLE E0431 MILDRED MILDRED GASEOUS 2 HOME HOME O2 SYS MEDICAL MEDICAL RENT; EQUIPME EQUIPME FLWMTR HUMIDFR&M ASK PRTBLE E0431 MILDRED MILDRED GASEOUS 2 HOME HOME O2 SYS MEDICAL MEDICAL RENT; EQUIPME EQUIPME FLWMTR HUMIDFR&M ASK RADIOLOGI 62201 ERIKA JAMES C EXAM 2 DON DON CHEST 2 VIEWS FRONTAL&L ATERAL CT THORAX 94229 [place] FRANCESCA 2 MEDICAL EMY W/CONTRAS IMAGING T ASS MATERIAL BLOOD 80732 COMBINED COMBINED COUNT 2 PHYSICIAN PHYSICIAN COMPLETE S LA S LA AUTO&[place] [address] COMBINED COMBINED PROSTATE 2 PHYSICIAN PHYSICIAN SPECIFIC S LA S LA ANTIGEN TOTAL LIPID 26324 COMBINED COMBINED PANEL 2 PHYSICIAN PHYSICIAN S LA S LA COMPREHEN 30158 COMBINED COMBINED SIVE 2 PHYSICIAN PHYSICIAN METABOLIC S LA S LA PANEL PRTBLE E0431 MILDRED BARBERRELL GASEOUS 2 HOME HOME O2 SYS MEDICAL MEDICAL RENT; EQUIPME EQUIPME FLWMTR HUMIDFR&M ASK O2 CONC 1 E1390 MILDRED MILDRED DEL PORT 2 HOME HOME 85%/>02 MEDICAL MEDICAL CONC AT EQUIPME EQUIPME [facility] FLW RATE O2 CONC 1 E1390 MILDRED LUIS PORT 1 HOME HOME 85%/>02 MEDICAL MEDICAL CONC AT EQUIPME EQU[facility]ME [facility] FLW RATE PRTBLE E0431 MILDRED LEVY GASEOUS 1 HOME HOME O2 SYS MEDICAL MEDICAL RENT; EQUIPME EQUIPME FLWMTR HUMIDFR&M ASK PRTBLE E0431 MILDRED LEVY GASEOUS 1 HOME HOME O2 SYS MEDICAL MEDICAL RENT; EQUIPME EQUIPME FLWMTR HUMIDFR&M ASK O2 CONC 1 E1390 MILDRED [place] 1 HOME HOME 85%/>02 MEDICAL MEDICAL CONC AT EQUIPME EQUIPME [facility] FLW RATE O2 CONC 1 E1390 MILDRED LUIS PORT 1 HOME HOME 85%/>02 MEDICAL MEDICAL CONC AT EQUIPME EQUIPME [facility] FLW RATE PRTBLE E0431 MILDRED LEVY GASEOUS 1 HOME HOME O2 SYS MEDICAL MEDICAL RENT; EQUIPME EQUIPME FLWMTR HUMIDFR&M ASK PRTBLE E0431 MILDRED LEVY GASEOUS 1 HOME HOME O2 SYS MEDICAL MEDICAL RENT; EQUIPME EQUIPME FLWMTR HUMIDFR&M ASK O2 CONC 1 E1390 MILDRED [place] 1 HOME HOME 85%/>02 MEDICAL MEDICAL CONC AT EQUIPME EQUIPME [facility] FLW RATE O2 CONC 1 E1390 MILDRED [place] 1 HOME MED HOME MED 85%/>02 EQUIP. L EQUIP. L CONC AT [facility] FLW RATE PRTBLE E0431 MILDRED LEVY GASEOUS 1 HOME MED HOME MED O2 SYS EQUIP. L EQUIP. L RENT; FLWMTR HUMIDFR&M ASK PRTBLE E0431 MILDRED LEVY GASEOUS 1 HOME MED HOME MED O2 SYS EQUIP. L EQUIP. L RENT; FLWMTR HUMIDFR&M ASK O2 CONC 1 E1390 MILDRED [place] 1 HOME MED HOME MED 85%/>02 EQUIP. L EQUIP. L CONC AT [facility] FLW RATE O2 CONC 1 E1390 MILDRED LEVY [facility] 1 HOME MED HOME MED 85%/>02 EQUIP. L EQUIP. L CONC AT [facility] FLW RATE PRTBLE E0431 MILDRED LEVY GASEOUS 1 HOME MED HOME MED O2 SYS EQUIP. L EQUIP. L RENT; [facility] HUMIDFR&M ASK PRTBLE E0431 MILDRED LEVY GASEOUS 1 HOME MED HOME MED O2 SYS EQUIP. L EQUIP. L RENT; [facility] HUMIDFR&M ASK O2 CONC 1 E1390 MILDRED LEVY [facility] 1 HOME MED HOME MED 85%/>02 EQUIP. L EQUIP. L CONC AT [facility] FLW RATE PRTBLE E0431 MILDRED LEVY GASEOUS 1 HOME MED HOME MED O2 SYS EQUIP. L EQUIP. L RENT; [facility] HUMIDFR&M ASK O2 CONC 1 E1390 MILDRED LEVY [facility] 1 HOME MED HOME MED 85%/>02 EQUIP. L EQUIP. L CONC AT [facility] FLW RATE PRTBLE E0431 MILDRED LEVY GASEOUS 0 HOME MED HOME MED O2 SYS EQUIP. L EQUIP. L RENT; [facility] HUMIDFR&M ASK O2 CONC 1 E1390 MILDRED LEVY [facility] 0 HOME MED HOME MED 85%/>02 EQUIP. L EQUIP. L CONC AT [facility] FLW RATE O2 CONC 1 E1390 MILDRED LEVY [facility] 0 HOME MED HOME MED 85%/>02 EQUIP. L EQUIP. L CONC AT [facility] FLW RATE PRTBLE E0431 MILDRED LEVY GASEOUS 0 HOME MED HOME MED O2 SYS EQUIP. L EQUIP. L RENT; [facility] HUMIDFR&M ASK PRTBLE E0431 MILDRED L[facility] GASEOUS 0 HOME MED HOME MED O2 SYS EQUIP. L EQUIP. L RENT; [facility] HUMIDFR&M ASK O2 CONC 1 E1390 [place] DEL PORT 0 HOME MED HOME MED 85%/>02 EQUIP. L EQUIP. L CONC AT [facility] FLW RATE PRTBLE E0431 [facility] L[facility]Y GASEOUS 0 HOME MED HOME MED O2 SYS EQUIP. L EQUIP. L RENT; [facility] HUMIDFR&M ASK O2 CONC 1 E1390 [place] DEL PORT 0 HOME MED HOME MED 85%/>02 EQUIP. L EQUIP. L CONC AT [facility] FLW RATE CULTURE 94182 [facility] FUNGI 0 Y Y DEFINITIV [facility] E ID EACH ORGANISM YEAST CULTURE 65487 [facility] FNGI 0 Y Y MOLD/YEAS [facility] T PRSMPTV OTH XCPT BLOOD SPECIAL 51095 [place] STAIN 0 [facility] 1 SERV MICROORGA FOUNDATIO NISMS I&R BRONCHOSC 64374 [place]UMAR OPY 0 MEDICAL MARIAN W/TRANSBR SERV ONCHIAL FOUNDATIO LUNG BX 1 LOBE BRONCHOSC 94932 [place] OPY 0 MEDICAL MARIAN NEEDLE BX SERV TRACHEA FOUNDATIO MAIN STEM&/BRO N CONCENTRA 30395 [facility] TION 0 Y Y INFECTIOU [facility] S AGENTS VIRUS 52460 [facility] TISS CUL 0 Y [facility] ON [facility]TOPATH[facility] C EFFECT IADNA NOS 84105 [facility] 0 Y Y AMPLIFIED [facility] PROBE TQ EACH ORGANISM CYTP FINE 64949 [place]ENDEN REINA NDL 0 MEDICAL ASPIRATE SERV IMMT FOUNDATIO CYTOHIST STD DX 1ST CYTP EVAL 92542 [place] REINA FINE 0 MEDICAL NEEDLE SERV ASPIRATE FOUNDATIO INTERP & RE[place] [address] [place] AL[place] SURG 0 [facility] BRILL YOL PATHOLOGY SERV FOUNDATIO GROSS&JESS ROSCOPIC EXAM VIRUS 90485 [facility] CENTRIFUG 0 Y Y E ENHNCD [facility] ID IMFLUOR STAIN EA SMR PRIM 34819 [facility] SRC 0 Y Y GRAM/GIEM [facility] SA STAIN BCT FUNGI/VAHID L CUL BACT 41188 [facility] XCPT 0 Y Y URINE [facility] BLOOD/STO OL AEROBIC ISOL IAADI 88856 [facility] PNEUMOCUS 0 Y Y TIS [facility] CARINII BRNCHSC 69474 [facility] W/BRNCL 0 Y Y [facility] SMR PRIM 63450 [facility] SRC 0 Y Y FLUORESCE [facility] NT&/AFS BCT FNGI PARASIT TISS FRED 17813 [facility] SLIDE 0 Y Y [facility] SKN/HR/NL S FNGI/ECTO PARASIT CULTURE 51118 [facility] TUBERCLE/ 0 [facility] ANY ISOL CELL 01279 [facility] COUNT 0 Y Y MISC BODY [facility] FLUIDS W/DIFFERE NTIAL COUNT RADIOLOGI 57134 [place] ROBBINS C 0 MEDICAL JESS EXAMINATI SERV ON CHEST FOUNDATIO [place] FRONTAL INJECTION J2250 [facility] 0 Y Y [place] [facility] HCL PER 1 MG INJECTION J3010 [facility] FENTANYL 0 Y Y CITRATE [facility] 0.1 MG O2 CONC 1 E1390 [place] PORT 0 HOME MED HOME MED 85%/>02 EQUIP. L EQUIP. L CONC AT [facility] FLW RATE PRTBLE E0431 ML[facility]RED LEVY GASEOUS 0 HOME MED HOME MED O2 SYS EQUIP. L EQUIP. L RENT; [facility] HUMIDFR&M ASK PHLEBOTOM 10858 COMBINED COMBINED Y 0 PHYSICIAN PHYSICIAN THERAPEUT S LA S LA IC SEPARATE PROCEDURE RADEX 30348 [facility] ESOPHAGUS 0 [facility] INC INC DUP-SCAN 20022 [facility] XTR VEINS 0 [facility] COMPLETE INC INC BILATERAL STUDY BLOOD 02455 [facility] COUNT 0 [facility] COMPLETE INC INC AUTO&AUTO DIFRNTL WBC COLLECTIO 24820 [facility] N VENOUS 0 [facility] BLOOD INC INC VENIPUNCT URE BRNCDILAT 71689 [facility] RSPSE 0 [facility] SPMTRY INC INC PRE&POST- BRNCDILAT ADMN PULMONARY 64366 [place] POLLOCK STRESS 0 MEDICAL JAM TESTING SERV SIMPLE FOUNDATIO COMPREHEN 70566 [facility] SIVE 0 [facility] METABOLIC INC INC PANEL COMPREHEN 19672 COMBINED COMBINED SIVE 0 PHYSICIAN PHYSICIAN METABOLIC S LAB S LAB PANEL COLLECTIO 87263 COMBINED COMBINED N VENOUS 0 PHYSICIAN PHYSICIAN BLOOD S LAB S LAB VENIPUNCT [address] THORAX 39831 LUCY AYALA W/O 0 [facility] CONTRAST INC INC MATERIAL 3D 67419 LUCY AYALA RENDERING 0 [facility] INC INC W/INTERP& POSTPROC DIFF WORK STATION RADIOLOGI 35839 [place] FRANCESCA Wagner EXAM 0 MEDICAL EMY CHEST 2 IMAGING VIEWS ASS FRONTAL&L ATERAL PRTBLE E0431 [facility] MIL[facility]ED GASEOUS 0 HOME MED HOME MED O2 SYS EQUIP. [facility] CONC 1 E1390 [place] MIL[place] DEL PORT 0 HOME MED HOME MED 85%/>02 EQUIP. EQUIP. CONC AT [facility] FLW RATE O2 CONC 1 E1390 [place] DEL [place] 0 HOME MED HOME MED 85%/>02 EQUIP. EQUIP. CONC AT [facility] FLW RATE PRTBLE E0431 [facility] MILDRED GASEOUS 0 HOME MED HOME MED O2 SYS EQUIP. EQUIP. RENT; [facility] HUMIDFR&M ASK ECG 96393 ERIKA JAMES, ROUTINE 0 DON R DON R ECG W/LEAST 12 LDS W/I&R RADIOLOGI 23545 ERIKA JAMES C EXAM 0 DON R DON R CHEST 2 VIEWS FRONTAL&L ATERAL INJECTION J1940 ERIKA JAMES 0 DON R DON R FUROSEMID E UP TO 20 MG RADIOLOGI 61712 ERIKA JAMES C 0 DON R DON R EXAMINATI ON CHEST [facility] 56956 ERIKA JAMES, DISCHARGE 0 DON R DON R DAY MANAGEMEN T 30 MIN/< RADIOLOGI 20747 [place] Kristy VILLEGAS EXAM 0 MEDICAL JANE P CHEST 2 IMAGING VIEWS ASSOCIATE FRONTAL&L S ATERAL SBSQ 29008 [facility] 0 DON R DON R CARE/DAY 25 MINUTES SBSQ 39434 [facility] 0 DON R DON R CARE/DAY 25 MINUTES SBSQ 01074 [facility] 0 DON R DON R CARE/DAY 25 MINUTES 3D 78256 [facility], RENDERING 0 MEDICAL SHASHI IMAGING W/INTERP& ASSOCIATE POSTPROC S DIFF WORK STATION CT THORAX 89446 [facility] W/CONTRAS IMAGING T ASSOCIATE MATERIAL S [facility] 76136 [facility] 0 DON R DON R CARE/DAY 25 MINUTES [facility] 92800 [facility] 0 DON R DON R CARE/DAY 25 MINUTES INITIAL 53981 [facility] 0 DON R DON R CARE/DAY 50 MINUTES RADIOLOGI 19234 [place] FRANCESCA EXAM 0 MEDICAL SHASHI CHEST 2 IMAGING VIEWS ASSOCIATE FRONTAL&L S ATERAL RADIOLOGI 13525 ERIKA JAMES 0 DON R DON R EXAMINATI ON CHEST [facility] FRONTAL OPHTH 65379 [facility] 9 DONTE A DONTE A XM&EVAL COMPRHNSV ESTAB PT 1/ SCANNING 01271 RETINA & NINI, OPHTHALMI 9 VITREOUS CALLIE W C IMAGING ASSOCIATE S O POSTERIOR SGM UNI OPHTH 25944 [facility] NINI, MEDICAL 9 VITREOUS CALLIE W XM&EVAL ASSOCIATE INTERMEDI S O ATE ESTAB PT INJECTION J1040 ERIKA JAMES, 8 DON R DON R METHYLPRE DNISOLONE ACETATE 80 MG OPHTH 64800 [facility] NINI, MEDICAL 8 VITREOUS CALLIE W XM&EVAL ASSOCIATE INTERMEDI S O ATE ESTAB PT SCANNING 47698 [facility] & NINI, OPHTHALMI 8 VITREOUS CALLIE W C IMAGING ASSOCIATE S O POSTERIOR SGM UNI INJECTION J1040 ERIKA JAMES, Adán DON R DON R METHYLPRE DNISOLONE ACETATE 80 MG OPHTH 71490 SARA RUIZ, [facility] 8 DONTE KENT A XM&EVAL COMPRHNSV ESTAB PT 1/ SCANNING 87475 RET[facility] & NINI, OPHTHALMI 8 VITREOUS CALLIE Winkler C IMAGING ASSOCIATE S O POSTERIOR SGM UNI OPHTH 24387 [facility] NINI, MEDICAL 8 VITREOUS CALLIE W XM&EVAL ASSOCIATE INTERMEDI S O ATE ESTAB PT INJECTION J1040 ERIKA JAMES 8 DON R DON R METHYLPRE DNISOLONE ACETATE 80 MG RADIOLOGI 58640 ERIKA JAMES C EXAM 8 DON R DON R CHEST 2 VIEWS FRONTAL&L ATERAL OPHTH 44013 [facility] & RET[facility] & MEDICAL 8 VITREOUS VITREOUS XM&EVAL ASSOCIATE ASSOCIATE INTERMEDI S O S O ATE ESTAB PT SCANNING 02939 RET[facility] & RETINA & OPHTHALMI 8 VITREOUS VITREOUS C IMAGING ASSOCIATE ASSOCIATE S O S O POSTERIOR SGM UNI SCANNING 48443 RETINA & RETINA & OPHTHALMI 8 VITREOUS VITREOUS C IMAGING ASSOCIATE ASSOCIATE S O S O POSTERIOR SGM UNI OPHTH 55777 [facility] & RETINA & MEDICAL 8 VITREOUS VITREOUS XM&EVAL ASSOCIATE ASSOCIATE INTERMEDI S O S O ATE ESTAB PT INJECTION J1100 ERIKA JAMES, Adán DON R DON R DEXAMETHO SONE SODIUM PHOSPHATE 1 MG Encounters Encounter Start End Date Code Location Performer Type Date OFFICE 24800 [facility] RHIANNON OUTPATIEN 7 7 PHYSICIAN T VISIT S GROUP 40 MINUTES OFFICE 44319 Darnell VELASQUEZ 7 7 PILAR P[place]ITE[place] T VISIT [facility] 15 MINUTES OFFICE 60253 [facility] 7 7 Y OF CK T VISIT [place] 25 HOSPI [facility] LUCY - 7 7 [facility] INPATIENT INC OFFICE 94592 A Kristy ROY OUTPATIEN 7 7 [place]ITE[place] T VISIT [facility] 15 MINUTES OFFICE 64494 A Kristy VELASQUEZ 7 7 [place] T VISIT [facility] 15 MINUTES HOSPITAL LUCY - 6 6 [facility] OUTPATIEN [facility] T OFFICE 39274 [place] [facility] OUTPATIEN 6 6 MEDICAL JAM T VISIT SERV 25 FOUNDATIO MINUTES N OFFICE 74095 [facility] ALLRAN JR OUTPATIEN 6 6 PHYSICIAN RITA T VISIT S GROUP 10 MINUTES HOSPITAL LUCY - 6 6 [facility] OUTPATIEN INC T OFFICE 31161 LUCY EVAN OUTPATIEN 6 6 [facility] VISIT [facility] 10 P MINUTES OFFICE 38011 [place] OUTPATI[place] 6 6 MEDICAL JAM T VISIT SERV 15 FOUNDATIO MINUTES N OFFICE 57944 [facility] ALLRAN JR OUTPATIEN 6 6 PHYSICIAN RITA T VISIT S GROUP 15 MINUTES OFFICE 99752 LUCY EVAN OUTPATIEN 6 6 [facility] 20 HOSPITAL MINUTES HOSPITAL LUCY - 6 6 [facility] OUTPATIEN INC T OFFICE 19596 [facility] ALLRAN JR OUTPATIEN 6 6 PHYSICIAN RITA T NEW 45 S GROUP MINUTES HOSPITAL LUCY - 6 6 [facility] OUTPATIEN INC T OFFICE 72527 [place] OUTPATIEN 6 6 MEDICAL JAM T VISIT SERV 25 FOUNDATIO MINUTES N OFFICE 84649 [place] OUTPATI[facility] 6 6 MEDICAL JAM T VISIT SERV 25 FOUNDATIO MINUTES HOSPITAL LUCY - 6 6 [facility] OUTPATIEN INC T [facility]ERGENCY 67906 [facility] 6 Y OF MADALYN VISIT [facility] HOSPI SEVERITY& THREAT FUN OFFICE 58739 A C KIRILL WEST OUTPATIEN 6 6 P[place]AR [place]ITE[place] T VISIT PSC 15 MINUTES OFFICE 46287 A Kristy WEST OUTPATIEN 6 6 [place] T VISIT [facility] 15 MINUTES OFFICE 04506 [place] OUTPATIEN 6 6 MEDICAL JAM T VISIT SERV 40 FOUNDATIO MINUTES HOSPITAL LUCY - 6 6 [facility] INPATIENT INC OFFICE 50864 [place] OUTPATIEN 6 6 MEDICAL T VISIT SERV 25 FOUNDATIO MINUTES [facility] LUCY - 6 6 [facility] OUTPATIEN [facility] OFFICE 99637 [place] OUTPATIEN 6 6 MEDICAL JAM T VISIT SERV 15 FOUNDATIO MINUTES [facility] LUCY - 5 5 [facility] OUTPATIEN [facility] LUCY - 5 5 [facility] OUTPATIEN [facility] LUCY - 5 5 [facility] OUTPATIEN [facility] OFFICE 89810 A C FIELD AMB OUTPATIEN 5 5 PILAR [place]LEITE[place] T VISIT PSC 15 MINUTES OFFICE 44645 A C FIELD AMB OUTPATIEN 4 4 P[place] T VISIT PSC 15 MINUTES HOSPITAL LUCY - 4 4 [facility] OUTPATIEN [facility] LUCY - 4 4 [facility]PATIEN [facility] LUCY - 4 4 [facility] LUCY - 4 4 [facility] LUCY [facility] 4 4 [facility] LUCY - 4 4 [facility] OUTPATIEN [facility] LUCY - 4 4 [facility] OUTPATIEN [facility] OFFICE 71116 FIELD AMB FIELD AMB OUTPATIEN 4 4 T VISIT 15 MINUTES OFFICE 96083 FIELD AMB FIELD AMB OUTPATIEN 3 3 T VISIT 15 MINUTES OFFICE 26936 A C FIELD AMB OUTPATIEN 3 3 PILAR PLEITEZ T NEW 30 PSC MINUTES OFFICE 11700 ERIKA MELENDREZS OUTPATIEN 3 3 DON DON T VISIT 15 MINUTES HOSPITAL LUCY - 3 3 [facility]PATIEN [facility] OFFICE 77414 JAMES JAMES OUTPATIEN 3 3 DON DON T VISIT 15 MINUTES HOSPITAL LUCY - 2 2 [facility]PATI[facility] OFFICE 61788 JAMES JAMES OUTPATIEN 2 2 DON DON T VISIT 15 MINUTES HOSPITAL LUCY - 2 2 [facility] OUTPATIEN [facility] LUCY - 2 2 [facility] LUCY - 2 2 [facility] LUCY - 2 2 [facility] OFFICE 02501 JAMES JAMES OUTPATIEN 2 2 DON DON T VISIT 15 MINUTES OFFICE 57516 JAMES JAMES OUTPATIEN 1 1 DON DON T VISIT 15 MINUTES OFFICE 74964 JAMES JAMES OUTPATIEN 1 1 DON DON T VISIT 15 MINUTES OFFICE 16424 JAMES JAMES OUTPATIEN 1 1 DON DON T VISIT 15 MINUTES OFFICE 66746 JAMES JAMES OUTPATIEN 1 1 DON DON T VISIT 15 MINUTES HOSPITAL UNIVERSIT - 0 0 [facility] L[facility] - 0 0 [facility] LUCY - 0 0 [facility]UC[facility] - 0 0 [facility] LUCY - 0 0 [facility] OFFICE 09317 ERIKA JAMES OUTPATIEN 0 0 DON R DON R T VISIT 15 MINUTES OFFICE 86417 ERIKA JAMES OUTPATIEN 0 0 DON R DON R T VISIT 25 MINUTES OFFICE 08691 ERIKA JAMES OUTPATIEN 0 0 DON R DON R T VISIT 15 MINUTES OFFICE 77603 ERIKA JAMES OUTPATIEN 8 8 DON R DON R T VISIT 15 MINUTES OFFICE 69429 EIRKA JAMES OUTPATIEN 8 8 DON R DON R T VISIT 15 MINUTES OFFICE 54719 ERIKA JAMES OUTPATIEN 8 8 DON R DON R T VISIT 15 MINUTES OFFICE 00199 ERIKA JAMES OUTPATIEN 8 8 DON R DON R T VISIT 15 MINUTES OFFICE 13556 ERIKA JAMES OUTPATIEN 8 8 DON R DON R T VISIT 15 MINUTES
--- OUTSIDE RECORDS SUMMARY | 2016-10-24 15:02 | External Medical Summary Rpt ---
Author Author , Organization [employer] Address Unknown Phone Unavailable Care Team Providers Care Stripper Color Name Role Phone A Kristy QUEZADA MD [...] Unavailable [facility]available Unavailable SERVICE, [facility] Unavailable Unavailable SERVICE, Powered by [facility] Unavailable Unavailable [place], [...] TAYLOR KEYANA, TAYLOR Unavailable Unavailable KEYANA LUCY [facility] Unavailable Unavailable INC, [facility] Unavailable Unavailable HOSPITAL P, [facility] DONTE RUIZ, Unavailable Unavailable DONTE RUIZ [facility], Unavailable Unavailable [facility] ARMENDARIZ JENNA, ARMENDARIZ JENNA Unavailable Unavailable HUI MIKHAIL, HUI MIKHAIL Unavailable Unavailable BECKY MAR, BECKY Unavailable Unavailable [facility], [facility] KUMAR MARIAN, Unavailable Unavailable KUMAR MARIAN NINI, CALLIE W, Unavailable Unavailable NINI, CALLIE W [facility] Un[facility] Un[facility] GLENN JR, GLENN JR Unavailable Unavailable GLENN JR DWI, GLENN Unavailable Unavailable JR DWI [facility] Unavailable Unavailable INTERNAL MED, [facility] CHERISE ART, CHERISE Unavailable Unavailable [...] PHARM #[id number] [facility] Unavailable Unavailable [id number] # [id number], [facility] [id number] # [id number] TANIYA ABIMAEL, TANIYA ABIMAEL Unavailable [...] Unavailable [facility], Unavailable Unavailable [facility] Unavailable [facility] HIEU GAMEZ, HIEU Unavailable Unavailable [facility], Unavailable [facility], Unavailable [facility]available [facility] LUKEKEISHAJERO NIXON, Unavailable Unavailable JONAHTIMOTEOYA MAR Purpose Continuity of Care Document - 04-25-2007 through 2016 Problems Code Diagnosis DOS Provider Status 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 09-11-2016 [facility] E785 HYPERLIPIDE 09-04-2016 [facility] UNSPECIFIED GROUP I119 HYPERTENSIV 09-04-2016 [facility] E HEART PHYSICIANS DISEASE GROUP WITHOUT HEART FAILURE 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 W/[facility] P ANGINA PECTORIS I272 OTHER 08-25-2016 [facility] SHORTNESS 08-25-2016 [facility] R079 CHEST PAIN 08-25-2016 [facility] UNSPECIFIED [facility]ING ASS I4891 UNSPECIFIED 07-03-2016 [...] MD PSC FIBRILLATIO N C9110 CHRONIC 01-11-2016 [facility] 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 R634 ABNORMAL 01-11-2016 [facility] WE[facility] R1110 VOMITING 01-09-2016 [facility] UNSPECIFIED PHYSICIANS GROUP K828 OTHER 01-02-2016 [facility] SPECIFIED MEDICAL DISEASES OF IMAGING ASS GALLBLADDER R630 ANOREXIA 01-02-2016 [facility] K921 MELENA 11-07-2015 [facility] GROUP K5710 DIVERTICULO 11-03-2015 [facility] SIS SM MEDICAL INTEST W/O IMAGING ASS PERF/ABSC W/O BLEED R195 OTHER FECAL 11-03-2015 [facility] ABNORMALITI IMAGING ASS ES S51342 LYMPHOCYTOS 10-26-2015 [facility] IS PATHOLOGY SYMPTOMATIC LAB NETW J690 PNEUMONITIS 10-26-2015 [facility] DUE TO SERV INHALATION [facility] OF FOOD AND VOMIT B370 CANDIDAL 10-19-2015 [facility] STOMATITIS SERV [facility] R112 NAUSEA WITH 10-19-2015 [facility] VOM[facility] UNSPECIFIED FOUNDATION I509 HEART 10-15-2015 [facility] FAILURE HOME UNSPECIFIED MEDICAL EQUIPME R531 WEAKNESS 09-20-2015 [facility] 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 SERV [facility] R9431 ABNORMAL 09-18-2015 [facility] ELECTROCARD SERV IOGRAM [facility] I4510 UNSPECIFIED 09-15-2015 [facility] RIGHT [facility] BUNDLE-BRAN FOUNDATION CH BLOCK R001 BRADYCARDIA 09-15-2015 [facility] UNSPECIFIED FOUNDATION B965 PSEUDOMONAS 09-14-2015 [facility] CAUSE OF SERV DZ [facility] CLASSIFIED ELSEWHERE J9600 ACUTE 09-14-2015 [facility]ATORY SERV FAIL UNS FOUNDATION HYPOXIA/HYP ERCAPNIA J9811 ATELECTASIS 09-14-2015 [facility] L49164 ENCOUNTER 09-14-2015 [facility] SURG [facility] AFTERCARE [facility] FLW SURG DIGESTIVE SYS Z049 ENCOUNTER 09-13-2015 [facility] EXAMINATION SERV &OBSERVATIO FOUNDATION N FOR UNS REASON K5900 CONSTIPATIO 09-12-2015 [facility] N SERV UNSPECIFIED FOUNDATION R140 ABDOMINAL 09-10-2015 [facility] DISTENSION SERV GASEOUS FOUNDATION R0989 OTH SPEC SX 09-09-2015 [facility] & SIGNS SERV INVLV THE FOUNDATION CIRC & RESP SYS R918 OTHER 09-09-2015 [facility] NONSPECIFIC SERV ABNORMAL [facility]OUNDATION FINDING OF LUNG FIELD A419 SEPSIS 09-08-2015 [facility] UNSPECIFIED SERV ORGANISM FOUNDATION E873 ALKALOSIS 09-08-2015 [facility] E876 HYPOKALEMIA 09-08-2015 [place] [facility] J90 PLEURAL 09-08-2015 [facility] EFFUSION SERV NOT FOUNDATION ELSEWHERE CLASSIFIED J9620 ACUTE 09-08-2015 [facility] CHRONIC SERV RESP FAIL FOUNDATION UNS HYPOXIA/HYP ERCAPNIA J984 OTHER 09-08-2015 [facility] DISORDERS SERV OF LUNG FOUNDATION R109 UNSPECIFIED 09-08-2015 [facility] ABDOMINAL SERV PAIN FOUND[facility] Z4682 ENCOUNTER 09-08-2015 [facility] ADJUST HOSPI NON-VASCULA R CATHETER 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-07-2015 [facility] DISORDER SERV UNSPECIFIED FOUNDATION I517 CARDIOMEGAL 09-07-2015 [facility] Y [facility] I5189 OTHER 09-07-2015 [facility] ILL-DEFINED SERV HEART [facility] DISEASES R0902 HYPOXEMIA 09-06-2015 [facility] R0689 OTHER 09-02-2015 [facility] ABNORMALITI SERV ES OF FOUNDATION BREATHING J942 HEMOTHORAX 08-30-2015 [facility] J948 OTHER 08-30-2015 [facility] SPECIFIED SERV PLEURAL FOUNDATION CONDITIONS L538 OTHER 08-30-2015 [facility] SPECIFIED SERV ERYTHEMATOU FOUNDATION S CONDITIONS Z9889 OTHER 08-30-2015 [facility] SPECIFIED SERV POSTPROCEDU FOUNDATION RAL STATES 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 K4030 UNILAT 08-25-2015 [facility] INGUINAL [facility] N[facility] W/OBST HOSPI W/O GANGRN NOT RECUR K4040 UNILAT 08-25-2015 [facility]AL [facility] NGUYEN FOUNDATION W/GANGREN NOT SPEC RECUR 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 08-25-2015 [facility] CURRENT USE SERV OF [facility]ATION ANTICOAGULA NTS N73108 ELEVATED 08-24-2015 [facility] P UNSPECIFIED K4090 UNILAT 08-24-2015 [facility]AL SERV NGUYEN W/O FOUNDATION OBST/GANGRE N NOT RECUR K5660 UNSPECIFIED 08-24-2015 [facility] INTESTINAL AMBULANCE SERVICE OBSTRUCTION R1031 RIGHT LOWER 08-24-2015 [facility] PAIN HOSPI 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 08-24-2015 [facility] 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 J189 PNEUMONIA 08-03-2015 [facility] UNSPECIFIED MEDICAL ORGANISM IMAGING ASS J439 EMPHYSEMA 08-03-2015 [place] UNSPECIFIED [place] INTERNAL MED J929 PLEURAL 08-03-2015 [facility] WITHOUT IMAGING ASS ASBESTOS R002 PALPITATION 08-03-2015 [facility] S [facility] R031 NONSPECIFIC 08-03-2015 [facility] LOW SERV BLOOD-PRESS [facility]OUNDATION URE READING R42 DIZZINESS 08-03-2015 [facility] AND [facility] GIDDINESS FOUND[facility] 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 08-03-2015 [place] SUPPLEMENTA INTERNAL L OXYGEN MED J42 UNSPECIFIED 07-13-2015 [facility] CHRONIC MEDICAL BRONCHITIS IMAGING ASS Z7722 CONTACT W/ 07-13-2015 [facility] & SUSPECTED SERV EXPOS [facility] ENVIR TOBACCO SMOKE J40 BRONCHITIS 03-25-2015 [facility] NOT MEDICAL SPECIFIED IMAGING ASS ACUTE OR CHRONIC R091 PLEURISY 01-21-2015 [facility] 4280 CONGESTIVE 01-14-2015 [facility] HE[facility] HOME FAILURE MEDICAL UNSPECIFIED EQUIPME 67446 OBSTRUCTIVE 01-14-2015 [facility] WITHOUT EXACERBAT 496 CHRONIC 01-14-[address] [facility] [address] HOME OBSTRUCTION MEDICAL NEC EQUIPME 55819 NUCLEAR 12-28-2014 [facility] SCLEROSIS JAMILAH 44797 OBST 09-06-2014 A Kristy QUEZADA CHRONIC PSC BRONCHITIS W/ACUTE BRONCHITIS 40854 LOSS OF 09-06-2014 A Kristy QUEZADA WEIGHT PSC 15075 OTHER CHEST 09-06-2014 A Kristy QUEZADA PAIN PSC 52643 OBSTRUCTIVE 09-05-2014 [facility] SLEEP HOME APNEA MEDICAL EQUIPME 7242 LUMBAGO 04-01-2014 A Kristy QUEZADA MD PSC V0382 NEED PROPH 04-01-2014 A Kristy QUEZADA VACCINATION PSC AGAINST STREP PNEUMONE 42822 ATRIAL 01-13-2014 [facility] FIBRILLATIO [facility] N INC 29043 REFLUX 01-13-2014 [facility] ESOPHAGITIS [facility] INC 58923 UNS 01-13-2014 [facility] GASTRITIS&G [facility] ASTRODUODIT INC IS W/O MENTION HEMORR 70413 ABDOMINAL 01-13-2014 [facility] PAIN, MEM [facility] GENERALIZED INC V5869 LONG-TERM 01-13-2014 [facility] (CURRENT) [facility] USE OF INC OTHER MEDICATIONS 12828 CHEST PAIN 11-24-2013 [facility] UNSPECIFIED [facility] INC 5110 PLEURISY 10-29-2013 [facility] WITHOUT MEDICAL MENTION IMAGING ASS EFFUS/CURRE NT TB 7862 COUGH 10-29-2013 [facility] 92259 INSOMNIA 12-16-2012 A Kristy QUEZADA UNSPECIFIED PSC 02280 OTHER 12-16-2012 A Kristy QUEZADA MALAISE AND PSC FATIGUE 20516 FEVER 05-23-2012 [facility] UNSPECIFIED DON 99614 WHEEZING 05-23-2012 J[facility] DON 1120 CANDIDIASIS 05-21-2012 J[facility] OF MOUTH DON 72683 OTHER 05-21-2012 FRANC[facility]CA DISEASES OF EMY LUNG NOT ELSEWHERE CLASSIFIED 4940 BRONCHIECTA 01-28-2012 [facility] SIS WITHOUT MEDICAL ACUTE IMAGING ASS EXACERBATIO N 5119 UNSPECIFIED 01-28-2012 [facility] PLEURAL MEDICAL EFFUSION IMAGING ASS 21289 OTHER 01-28-2012 [facility] NONSPECIFIC [facility] ABNORMAL INC FINDING OF LUNG FIELD 76190 OSTEOARTHRO 01-02-2012 JAMES S INVLV MX DON SITES [place] [address] OBSTRUCTIVE 11-12-2011 [facility] CHRONIC [facility] BRONCHITIS INC WITH EXACERBATIO N 76301 ESOPHAGEAL 11-12-2011 [facility] REFLUX [facility] INC 2859 UNSPECIFIED 10-05-2011 [facility] ANEMIA [facility] INC 5180 PULMONARY 10-05-2011 [facility] COLLAPSE MEDICAL IMAGING ASS 486 PNEUMONIA, 09-28-2011 [facility] ORGANISM MEDICAL UNSPECIFIED IMAGING ASS 5070 PNEUMONITIS 09-28-2011 [place] DUE TO JAM INHALATION OF FOOD OR VOMITUS 17574 SHORTNESS 09-28-2011 [facility] OF BREATH [facility] INC 80994 ABDOMINAL 09-28-2011 [facility] PAIN, MEM [facility] EPIGASTRIC INC V1261 PERSONAL 09-28-2011 [facility] HISTORY JAM PNEUMONIA RECURRENT 79442 PNEUMONIA 06-08-2011 [facility] DUE TO DON OTHER SPECIFIED BACTERIA 2724 OTHER AND 05-11-2011 [facility] UNSPECIFIED PHYSICIANS [place] HYPERLIPIDE [place] 2768 HYPOPOTASSE 05-11-2011 [facility] [place] PH[facility]IC[facility] [place] 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 55222 OSTEOARTHRO 08-23-2009 [facility] SIS UNSPEC DON R WHETHER GEN/LOC LOWER LEG 35395 OSTEOARTHRO 08-23-2009 [facility] S UNSPEC DON R GEN/LOC OTH SPEC SITES 13765 MACULAR 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 RUIZ A N OF RETINA UNSPECIFIED 01150 NONEXUDATIV 07-20-2008 [facility] & 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 79551 EXUDATIVE 07-20-2008 [facility] & SENILE [facility] DEGENERAMANDIO O N OF RETINA 46578 CRYSTALLINE 07-20-2008 [facility] & DEPOSITS VITREOUS IN VITREOUS ASSOCIATES O 4610 ACUTE 02-27-2008 ERIKA, MAXILLARY DON R SINUSITIS 4659 ACUTE URIS 02-27-2008 E[facility]KA, OF DON R UNSPECIFIED SITE 8472 LUMBAR 11-14-2007 ERIKA, SPRAIN AND DON R STRAIN 4660 ACUTE 08-02-2007 JAMES, BRONCHITIS DON R 4871 INFLUENZA 07-04-2007 ERIKA, WITH OTHER DON R RESPIRATORY MANIFESTATI ONS 52209 PAIN IN 04-25-2007 JAMES, JOINT, DON R SHOULDER REGION 91969 UNSPECIFIED 04-25-2007 ERIKA, SYNOVITIS DON R AND [...] ET 03 93 8 # 03 93 [place] 00 04 04 00 12 6 RI [...] YOUR SM VOL 7 PHARMACY PHARMACY NONFILTR [employer] PNEUMAT NEBULIZR DISPBL ALBUTEROL J7620 YOUR YOUR TO 2.5 7 PHARMACY PHARMACY [employer] IPRATROPI UM BROM TO 0.5 MG ALBUTEROL J7620 A C A C TO 2.5 7 PILAR QUEZADA MD MG & PSC PSC IPRATROPI UM BROM TO 0.5 MG ECG 76928 [facility] ROUTINE 7 PHYSICIAN ECG S GROUP W/LEAST 12 LDS I&R ONLY R & L HRT 22286 [facility] CATH 7 PHYSICIAN WINJX HRT S GROUP ART& L VENTR IMG RADIOLOGI 15208 [facility] C 7 MEDICAL EXAMINATI IMAGING ON CHEST ASS SINGLE VIEW FRONTAL ECG 73141 [facility] EL[facility]AB[facility] ROUTINE 7 [facility] W/LEAST P 12 LDS I&R ONLY ADMN SET A7003 YOUR YOUR SM VOL 7 PHARMACY PHARMACY NONFILTR [employer] PNEUMAT NEBULIZR DISPBL ALBUTEROL J7620 YOUR YOUR TO 2.5 7 PHARMACY PHARMACY [employer] IPRATROPI UM BROM TO 0.5 MG O2 CONC 1 E1390 [facility] [place] 7 HOME HOME 85%/>02 MEDICAL MEDICAL CONC AT EQUIPME EQUIPME PRSC FLW RATE O2 CONC 1 E1390 [facility] [place] 7 HOME HOME 85%/>02 MEDICAL MEDICAL CONC AT EQUIPME EQUIPME PRSC FLW RATE RADIOLOGI 39590 [facility] C EXAM 7 MEDICAL MEDICAL CHEST [...] YOUR DISPENSIN 6 PHARMACY PHARMACY G FEE [employer] INHALATIO N RX; PER 30 DAYS ALBUTEROL J7620 YOUR YOUR TO 2.5 6 PHARMACY PHARMACY [employer] IPRATROPI UM BROM TO 0.5 MG ADMN SET A7003 YOUR YOUR SM VOL 6 PHARMACY PHARMACY NONFILTR LLC LLC PNEUMAT NEBULIZR DISPBL O2 CONC 1 E1390 [facility] 6 HOME HOME 85%/>02 MEDICAL MEDICAL CONC [facility] G0463 [facility] AYALA OUTPATIEN 6 MEM H[facility] T CLIN INC INC VISIT ASSESS & MGMT PT O2 CONC 1 E1390 [facility] 6 HOME HOME 85%/>02 MEDICAL MEDICAL [facility] FL[facility] COMPREHEN 16014 [facility] A[facility]AL[facility] SIVE 6 MEM HOSP MEM [facility]OSP METABOLIC INC INC PANEL LOCM Q9967 [facility] AYALA 300-399 6 MEM HOS[facility] MG/ML INC INC IODINE CONCENTRA TION PER ML COLLECTIO 94208 [facility] AYAAL N VENOUS 6 [facility] [place] [address] [facility] ABDOMEN 6 MEM H[facility] W/CONTRAS INC INC T MATERIAL BLOOD 74842 [facility] COUNT 6 MEM H[facility] COMPLETE INC INC AUTO&AUTO DIFRNTL WBC ANES 69482 [facility] UPPER GI 6 ANESTH PALMA ENDOSCOPY OF THE PROXIMAL BLUE TO DUODENUM O2 CONC 1 E1390 [facility] 6 HOME HOME 85%/>02 MEDICAL MEDICAL CONC [facility] O2 CONC 1 E1390 [facility] 6 HOME MAR 85%/>02 MEDICAL CONC AT [facility] FLW RATE RADEX 61741 [facility] AYALA UPPER GI 6 MEM HOSP [facility]OS[facility] W/WO INC INC GLUCAGON/ DELAY IMAGES W/KUB RADEX 24634 [facility] FONTANEZ ALL UPPER GI 6 MEDICAL W/WO IMAGING GLUCAGON/ ASS DELAY IMGES W/O KUB FLOW 82981 [facility] CYTOMETRY 6 MEM HOSP MEM HOS[facility] CELL INC INC SURF MARKER TECHL ONLY 1ST FLOW 46924 [facility] CYTOMETRY 6 MEM HOS[facility] MEM HOS[facility] CELL INC INC SURF MARKER TECHL ONLY EA COLLECTIO 42156 [facility] A[facility] N VENOUS 6 MEM HOSP MEM HOSP BLOOD INC INC VENIPUNCT URE FLOW 37959 MOLECULAR MOLECULAR CYTOMETRY 6 INTERPJ PATHOLOGY PATHOLOGY [...] ABLECARE ABLECARE ATTACHMEN 6 T WALKER ECG 76427 [place] TANIYA ABIMAEL ROUTINE 6 MEDICAL ECG SERV W/LEAST FOUNDATIO 12 LDS N I&R ONLY ECG 32594 [place] PELAEZ ROUTINE 6 MEDICAL NAN ECG SERV W/LEAST FOUNDATIO 12 LDS N I&R ONLY SBSQ 73974 [facility] 6 MEDICAL KEYANA CARE/DAY SERV 25 FOUNDATIO MINUTES N RADIOLOGI 84077 [place] JAMES CON C 6 MEDICAL EXAMINATI SERV ON CHEST FOUNDATIO SINGLE N VIEW FRONTAL RADIOLOGI 99672 [place] WILLIEK C 6 MEDICAL AYA MAR EXAMINATI SERV ON CHEST FOUNDATIO SINGLE N VIEW FRONTAL SBSQ 70489 [place] [facility] 6 MEDICAL KEYANA CARE/DAY SERV 15 FOUNDATIO MINUTES N SBSQ 32272 [facility] 6 MEDICAL KEYANA CARE/DAY SERV 15 FOUNDATIO MINUTES N RADIOLOGI 32829 [place] ARMENDARIZ JENNA C 6 MEDICAL EXAMINATI SERV ON CHEST FOUNDATIO SINGLE N VIEW FRONTAL RADIOLOGI 70257 [place] MAHMOOD LEATHA C 6 MEDICAL EXAMINATI SERV ON CHEST FOUNDATIO SINGLE N VIEW FRONTAL SBSQ 04328 [place] [facility] 6 MEDICAL CARE/DAY SERV 25 FOUNDATIO MINUTES N RADIOLOGI 54800 [place] MAHMOOD LEATHA C 6 MEDICAL EXAMINATI SERV ON CHEST FOUNDATIO SINGLE N VIEW FRONTAL RADEX 07447 [place] ABDOMEN 1 6 MEDICAL SUSAN SERV ANTEROPOS FOUNDATIO TERIOR N VIEW ECG 59852 [facility] ROUTINE 6 MEDICAL ECG SERV W/LEAST FOUNDATIO 12 LDS N I&R ONLY SBSQ 97634 [facility] 6 MEDICAL CARE/DAY SERV 25 FOUNDATIO MINUTES N CRITICAL 09465 [facility] 6 MEDICAL ILL/INJUR SERV ED FOUNDATIO PATIENT N INIT 30-74 MIN ECG 91380 [facility] ROUTINE 6 MEDICAL ECG SERV W/LEAST FOUNDATIO 12 LDS N I&R ONLY RADEX 75762 [facility] 6 Y OF CAR [facility]TEROPOS HOS[facility] TERIOR VIEW RADIOLOGI 61284 [place] MAHMOOD LEATHA C 6 MEDICAL EXAMINATI SERV [place] [address] [place] REYEZ CLEO ABDOMEN & 6 MEDICAL PELVIS SERV W/CONTRAS FOUNDATIO T N MATERIAL [facility] THORAX 85434 [place] CON 6 MEDICAL W/CONTRAS SERV T FOUNDATIO MATERIAL N RADEX 16347 [facility] SH[facility] ABDOMEN 1 6 Y OF CAR [facility] ANTEROPOS [facility] TERIOR VIEW RADIOLOGI 26632 [place] ZAGUROVSK C 6 MEDICAL AYA MAR EXAMINATI SERV ON CHEST FOUNDATIO SINGLE N VIEW FRONTAL SBSQ 50852 [facility] 6 MEDICAL CARE/DAY SERV 25 FOUNDATIO MINUTES N RADEX ABD 70246 [place] PAULA COMPL 6 MEDICAL JURGEN AQT ABD SERV ANNEL W/S/E/D FOUNDATIO VIEWS 1 N VIEW CH RADIOLOGI 57574 [place] CON C 6 MEDICAL EXAMINATI SERV ON CHEST FOUNDATIO SINGLE N VIEW FRONTAL SBSQ 94479 [facility] 6 MEDICAL AND CARE/DAY SERV 25 FOUNDATIO MINUTES N INITIAL 18589 [facility] 6 MEDICAL SUN KAYODE CARE/DAY SERV 30 FOUNDATIO MINUTES N ECG 94940 [facility] ROUTINE 6 MEDICAL ECG SERV W/LEAST FOUNDATIO 12 LDS N I&R ONLY ECHO 65692 [place] [facility] MEDICAL ERIKA 2D SERV W/WOM-MOD FOUNDATIO E COMPL N SPEC&COLR D SBSQ 91213 [facility] 6 MEDICAL AND CARE/DAY SERV 25 FOUNDATIO MINUTES N RADIOLOGI 52973 [place] CON C 6 MEDICAL EXAMINATI SERV ON CHEST FOUNDATIO SINGLE N VIEW FRONTAL RADIOLOGI 70204 [place] CON C 6 MEDICAL EXAMINATI SERV ON CHEST FOUNDATIO SINGLE N VIEW FRONTAL ECG 99033 [place] SAGE CHI ROUTINE 6 MEDICAL ECG SERV W/LEAST FOUNDATIO 12 LDS N I&R ONLY RADIOLOGI 72859 [facility] MEDICAL AYA MAR EXAMINATI SERV ON CHEST FOUNDATIO SINGLE N VIEW FRONTAL RADEX 61897 [facility] SH[facility] ABDOMEN 1 6 Y OF CAR [facility] [facility]OS[facility] TERIOR VIEW RADEX 64120 [place] CHERISE ABDOMEN 1 6 MEDICAL ART SERV ANTEROPOS FOUNDATIO TERIOR N VIEW RADIOLOGI 63509 [place] ROBBINS C 6 MEDICAL JESS EXAMINATI SERV ON CHEST FOUNDATIO SINGLE N VIEW FRONTAL CT THORAX 10168 [place] ARMENDARIZ JENNA 6 MEDICAL W/[place] [address] [place] AYOOB AND ABDOMEN & 6 MEDICAL PELVIS SERV W/CONTRAS FOUNDATIO T N MATERIAL RADIOLOGI 57321 [place] LUKEROK C 6 MEDICAL AYA MAR EXAMINATI SERV ON CHEST FOUNDATIO SINGLE N VIEW FRONTAL RADEX 92309 [facility] SH[facility] ABDOMEN 1 6 Y OF CAR [facility] [facility] TERIOR VIEW RADEX 74125 [facility] ABDOMEN 1 6 Y OF CAR [facility] ANTER[facility] TERIOR VIEW SBSQ 91811 [facility] 6 MEDICAL AND CARE/DAY SERV 25 FOUNDATIO MINUTES N SBSQ 68686 [facility] 6 MEDICAL AND CARE/DAY SERV 25 FOUNDATIO MINUTES N RADIOLOGI 54486 [place] DELL CAR C 6 MEDICAL EXAMINATI SERV ON CHEST FOUNDATIO SINGLE N VIEW FRONTAL RADIOLOGI 31985 [place] JAMES CON C 6 MEDICAL EXAMINATI SERV ON CHEST FOUNDATIO SINGLE N VIEW FRONTAL ECG 40014 [place] PELAE[place] ROUTINE 6 MEDICAL NAN ECG SERV W/LEAST FOUNDATIO 12 LDS N I&R ONLY ECG 25750 [facility] AMES MIKHAIL ROUTINE 6 MEDICAL ECG SERV W/LEAST FOUNDATIO 12 LDS N I&R ONLY ARTL 12841 [facility] UNIVERS CATHJ/CAN 6 Y OF Y OF NULJ [facility] MNTR/[facility] [place] [address] [facility] SURG 6 MEDICAL FRANCO PATHOLOGY SERV FOUNDATIO GROSS&JESS N ROSCOPIC EXAM LEVEL III 44591 [facility] SURG 6 MEDICAL FRANCO PATHOLOGY SERV FOUNDATIO GROSS&JESS N ROSCOPIC EXAM ANESTHESI 38539 UNIVERS LORI BET A HERNIA 6 Y OF REPAIR [facility] ABDOMEN NOS SBSQ 97560 [facility] 6 MEDICAL RONNY CARE/DAY SERV 25 FOUNDATIO MINUTES N RPR 1ST 76198 [facility] RONNY HRNA AGE SERV 5 YRS/> FOUNDATIO INCARCERA N KISHOR THER 61958 [facility] PROPH/DX 6 [facility] NJX EA INC INC SEQL IV PUSH SBST/DRUG FAC CREATINE 38872 [facility] KINASE 6 [facility] [place] [address] [facility] LIPASE 6 [place] [address] [facility] ALL ABDOMEN & 6 MEDICAL PELVIS IMAGING W/O ASS CONTRAST MATERIAL INITIAL 27523 [facility] 6 MEDICAL CHR CARE/DAY SERV [place] [address] [facility] AMYLASE 6 [facility] INC INC CREATINE 64138 [facility] KINASE MB 6 [facility] FRACTION INC INC ONLY INJECTION J2405 [facility] 6 [facility] ONDANSETR INC INC ON HCL PER 1 MG INJ J2543 [facility] PIPERACIL 6 [facility] YONATHAN INC INC SOD/TAZOB ACTAM SOD 1 G/0.125 G RADIOLOGI 49542 [facility] ALL C 6 MEDICAL EXAMINATI IMAGING [place] [address] L[facility]YJOAN A[facility] TROPONIN 6 [facility] QUANTITAT INC INC ARCENIO ECG 96204 [facility] ROUTINE 6 [facility] ECG INC INC W/LEAST 12 LDS TRCG ONLY W/[place] [address] [facility] INFUSION 6 [facility] THERAPY/P INC INC ROPHYLAXI S /DX 1ST TO 1 HR COMPREHEN 39739 [facility] SIVE 6 [facility] METABOLIC INC INC PANEL ECG 61070 LUCY IVÁNMARIBEL ROUTINE 6 [facility] W/LEAST P 12 LDS I&R ONLY GROUND A0425 [facility] 6 AMBULANCE AMBULANCE PER SERVICE SERVICE STATUTE MILE AMBULANCE A0429 [facility] SERVICE 6 AMBULANCE AMBULANCE BLS SERVICE SERVICE EMERGENCY TRANSPORT BLOOD 84494 [facility] COUNT 6 [facility] COMPLETE INC INC AUTO&AUTO DIFRNTL WBC COLLECTIO 49552 A Kristy WEST N VENOUS 6 [facility] BLOOD PSC VENIPUNCT URE BLOOD 37973 A Kristy ROY JENNA COUNT 6 [facility] [place] COMPLETE PSC AUTO&AUTO DIFRNTL WBC NEBULIZER E0570 [facility] MIL[facility] WITH 6 HOME HOME COMPRESSO MEDICAL MEDICAL R EQUIPME EQUIPME ECG 43887 LUCY BEVERLY ROUTINE 6 [facility] W/LEAST P 12 LDS I&R ONLY RADIOLOGI 10807 [facility] FRANCES[facility] C 6 MEDICAL EMY EXAMINATI IMAGING ON CHEST ASS SINGLE [place]IEW FRONTAL INITIAL 93190 [facility] 6 [facility] CARE/DAY INTERNAL 70 MED MINUTES NEBULIZER E0570 MILDRED LEVY WITH 6 HOME HOME [facility]PRESSO MEDICAL MEDICAL R EQUIPME EQUIPME COLLECTIO 98811 LUCY AYALA N VENOUS 6 [facility] BLOOD INC INC VENIPUNCT URE COMPREHEN 38602 LUCY AYALA SIVE 6 [facility] METABOLIC INC INC PANEL PHRM Q0513 YOUR YOUR DISPENSIN 6 PHARMACY PHARMACY [employer] INHALATIO N RX; PER 30 DAYS RADIOLOGI 72001 [facility] ALL C 6 MEDICAL EXAMINATI IMAGING ON CHEST ASS SINGLE VIEW FRONTAL BLOOD 67890 LUCY AYALA COUNT 6 [facility] COMPLETE INC INC AUTO&AUTO DIFRNTL WBC RADIOLOGI 32842 LUCY AYALA C EXAM 6 [facility] CHEST 2 INC INC VIEWS FRONTAL&L ATERAL ADMN SET A7003 YOUR YOUR SM VOL 6 PHARMACY PHARMACY NONFILTR [employer] PNEUMAT NEBULIZR DISPBL ALBUTEROL J7620 YOUR YOUR TO 2.5 6 PHARMACY PHARMACY [employer] IPRATROPI UM BROM TO 0.5 MG NEBULIZER E0570 MILDRED MILDRED WITH 6 HOME HOME COMPRESSO MEDICAL MEDICAL R EQUIPME EQUIPME NEBULIZER E0570 MILDRED MILDRED WITH 6 HOME HOME COMPRESSO MEDICAL MEDICAL R EQUIPME EQUIPME PHRM Q0513 YOUR YOUR DISPENSIN 5 PHARMACY PHARMACY [employer] INHALATIO N RX; PER 30 DAYS ALBUTEROL J7620 YOUR YOUR TO 2.5 5 PHARMACY PHARMACY [employer] IPRATROPI UM BROM TO 0.5 MG RADIOLOGI 76341 [facility] ALL C EXAM 5 MEDICAL CHEST 2 IMAGING VIEWS ASS FRONTAL&L ATERAL CT THORAX 08484 LUCY AAYLA 5 [facility] W/CONTRAS INC INC T MATERIAL RADIOLOGI 09767 LUCY AYALA C EXAM 5 [facility] CHEST 2 INC INC VIEWS FRONTAL&L ATERAL PHARM G0333 YOUR YOUR DISPEN 5 PHARMACY PHARMACY FEE INHAL [employer] RX; INITIAL 30-DAY SUPPLY NEBULIZER E0570 MILDRED LEVY WITH 5 HOME HOME [facility]PRESS[facility] MEDICAL MEDICAL R EQUIPME EQUIPME ALBUTEROL J7620 YOUR YOUR TO 2.5 5 PHARMACY PHARMACY [employer] IPRATROPI UM BROM TO 0.5 MG CATARACT 87774 [facility] REMOVAL 5 JAMILAH JAMILAH INSERTION OF LENS CONTINUOU E0601 MILDRED LEVY S 5 HOME [...] EQUIPME EQUIPME ARWAY PRESS DEVICE EA POLYSOM 24668 NEERAJ NIXON 6/>YRS 4 SLEEP 4/> NEUROSCIE ADDL NCES CENT AMA ATTND POLYSOM 78823 LUCY AYALA 6/>YRS 4 [facility] SLEEP 4/> INC INC ADDL AMA ATTND IMC/IMC G0461 LUCY AYALA PER 4 [facility] SPECIMEN; INC INC 1ST SNGL/MPX ANTIBODY STN SPECIAL 37678 LUCY AYALA STAIN 4 [facility] GROUP 1 INC INC MICROORGA NISMS I&R SPCL STN 90536 LUCY AYALA 2 I&R 4 [facility] EXCPT INC INC MICROORG/ ENZYME/[place] [address] LUCY AYALA SURG 4 [facility] PATHOLOGY INC INC GROSS&[place] EX[place] [address] LUCY AYALA INFUSION 4 [facility] THERAPY INC INC PROPHYLAX IS/[place] [address] LUCY AYALA INFUSION 4 [facility] THERAPY/P INC INC ROPHYLAXI S /DX 1ST TO 1 HR SPMTRY 86809 LUCY AYALA W/VC 4 [facility] EXPIRATOR INC INC Y ALFREDO W/WO MXML VOL VNTJ ECHO 75687 LUCY LUCY TTHRC R-T 4 [facility] 2D INC INC W/WOM-MOD E COMPL SPEC&COLR D MYOCARDIA 62985 LUCY AYALA L SPECT 4 [facility] MULTIPLE INC INC STUDIES CV STRS 94648 GLENN ELIZABETH JR TST 4 DWI DWI XERS&/OR RX CONT ECG I&R ONLY MYOCARDIA 33582 TEX Parra 4 MEDICAL EMY PERFUSION IMAGING PLANAR ASS MULTIPLE STUDIES CV STRS 88182 KEITH PARKER JOSH TST 4 XERS&/OR RX CONT ECG W/O I&R RADIOLOGI 74819 LUCY AYALA C EXAM 4 [facility] CHEST 2 INC INC [...] SONE ACETATE & PHOSPHATE 3 MG RADIOLOGI 87329 FRANCESCA MA C EXAM 3 EMY EMY [...] EQUIPME EQUIPME FLWMTR HUMIDFR&M ASK CT THORAX 73898 LUCY AYALA W/O 2 [facility] CONTRAST INC INC MATERIAL 3D 79723 LUCY AYALA RENDERING 2 [facility] INC INC W/INTERP& POSTPROC DIFF WORK STATION PRTBLE E0431 MILDRED MILDRED GASEOUS 2 HOME HOME O2 SYS MEDICAL MEDICAL RENT; EQUIPME EQUIPME FLWMTR HUMIDFR&M ASK TOBACCO 73388 JAMES JAMES USE 2 DON DON CESSATION INTERMEDI ATE 3-10 MINUTES PRTBLE E0431 MILDRED MILDRED GASEOUS 2 HOME HOME O2 SYS MEDICAL MEDICAL RENT; EQUIPME EQUIPME FLWMTR HUMIDFR&M ASK PRTBLE E0431 MILDRED MILDRED GASEOUS 2 HOME HOME O2 SYS MEDICAL MEDICAL RENT; EQUIPME EQUIPME FLWMTR HUMIDFR&M ASK SPMTRY 26295 LUCY AYALA W/VC 2 [facility] EXPIRATOR INC INC Y ALFREDO W/WO MXML VOL VNTJ RADIOLOGI 85215 LUCY AYALA C EXAM 2 [facility] CHEST 2 INC INC VIEWS FRONTAL&L ATERAL PRTBLE E0431 MILDRED BARBERRELL GASEOUS 2 HOME HOME O2 SYS MEDICAL MEDICAL RENT; EQUIPME EQUIPME FLWMTR HUMIDFR&M ASK NONINVASI 37702 LUCY AYALA VE 2 [facility] EAR/PULSE INC INC OXIMETRY SINGLE DETER THORACENT 88779 LUCY AYALA ESIS 2 [facility] PUNCTURE INC INC PLEURAL CAVITY ASPIRATIO N CYTP 30707 PATHOLOGY PATHOLOGY SLCTV 2 & & CELL CYTOLOGY CYTOLOGY ENHANCEME LAB LAB NT INTERPJ XCPT C/V COLLECTIO 45126 LUCY AYALA N VENOUS 2 [facility] BLOOD INC INC VENIPUNCT URE RADIOLOGI 46426 LUCY AYALA C EXAM 2 [facility] CHEST 2 INC INC VIEWS FRONTAL&L ATERAL CYANOCOBA 59087 LUCY AYALA BETTIE 2 [facility] VITAMIN INC INC B-12 TISS FRED 07209 LUCY AYALA SLIDE 2 [facility] SAMPS INC INC SKN/HR/NL S FNGI/ECTO PARASIT CUL BACT 52302 LUCY AYALA XCPT 2 [facility] URINE INC INC BLOOD/STO OL AEROBIC ISOL CULTURE 32190 LUCY AYALA BACTERIAL 2 [facility] ANY INC INC SOURCE ANAEROBIC ISO&ID CULTURE 43638 LUCY AYALA TUBERCLE/ 2 [facility] OTH INC INC ACID-FAST BACILLI ANY ISOL SMR PRIM 15742 LUCY AYALA SRC 2 [facility] GRAM/GIEM INC INC SA STAIN BCT FUNGI/VAHID L CELL 26749 LUCY AYALA COUNT 2 [facility] MISC BODY INC [place] [address] LUCY AYALA GUIDANCE 2 [facility] [place] [address] LUCY AYALA IRON 2 [facility] INC INC CARBOXYHE 86212 LUCY AYALA MOGLOBIN 2 [facility] QUANTITAT INC INC ARCENIO BLOOD 24764 LUCY AYALA GASES ANY 2 [facility] INC INC COMBINATI ON PH PCO2 PO2 CO2 HCO3 GLUCOSE 64222 LUCY AYALA BODY 2 [facility] FLUID INC INC OTHER THAN BLOOD IRON 57040 LUCY AYALA BINDING 2 [facility] CAPACITY INC INC LACTATE 75649 LUCY AYALA DEHYDROGE 2 [facility] NASE LDH INC INC PROTEIN 91888 LUCY AYALA XCPT 2 [facility] REFRACTOM INC INC ETRY SERUM PLASMA/WH L BLD CT THORAX 65724 LUCY AYALA W/O 2 [facility] CONTRAST INC INC MATERIAL CT THORAX 94377 LUCY AYALA W/O 2 [facility] CONTRAST INC INC MATERIAL SPUTUM 99816 LUCY AYALA OBTAINING 2 [facility] SPEC INC INC AEROSOL INDUCED TX SPX 3D 20966 [facility] ANFRANCESCA RENDERING 2 MEDICAL EMY IMAGING W/INTERP& ASS POSTPROC DIFF WORK STATION ECG 41691 LUCY AYALA ROUTINE 2 [facility] ECG INC INC W/LEAST 12 LDS TRCG ONLY W/O I&R ECG 12542 RUSH BEVERLY ROUTINE 2 JENNA JENNA ECG W/LEAST 12 LDS I&R ONLY PRTBLE E0431 MILDRED MILDRED GASEOUS 2 HOME HOME O2 SYS MEDICAL MEDICAL RENT; EQUIPME EQUIPME FLWMTR HUMIDFR&M ASK PRTBLE E0431 MILDRED MILDRED GASEOUS 2 HOME HOME O2 SYS MEDICAL MEDICAL RENT; EQUIPME EQUIPME FLWMTR HUMIDFR&M ASK SPMTRY 86348 MARIS POLLOCK W/VC 2 JAM JAM EXPIRATOR Y ALFREDO W/WO MXML VOL VNTJ PRTBLE E0431 MILDRED MILDRED GASEOUS 2 HOME HOME O2 SYS MEDICAL MEDICAL RENT; EQUIPME EQUIPME FLWMTR HUMIDFR&M ASK PRTBLE E0431 MILDRED MILDRED GASEOUS 2 HOME HOME O2 SYS MEDICAL MEDICAL RENT; EQUIPME EQUIPME FLWMTR HUMIDFR&M ASK RADIOLOGI 46580 ERIKA JAMES C EXAM 2 DON DON CHEST 2 VIEWS FRONTAL&L ATERAL CT THORAX 85097 [place] FRANCESCA 2 MEDICAL EMY W/CONTRAS IMAGING T ASS MATERIAL BLOOD 50263 COMBINED COMBINED COUNT 2 PHYSICIAN PHYSICIAN COMPLETE S LA S LA AUTO&[place] [address] COMBINED COMBINED PROSTATE 2 PHYSICIAN PHYSICIAN SPECIFIC S LA S LA ANTIGEN TOTAL LIPID 58454 COMBINED COMBINED PANEL 2 PHYSICIAN PHYSICIAN S LA S LA COMPREHEN 41844 COMBINED COMBINED SIVE 2 PHYSICIAN PHYSICIAN METABOLIC S LA S LA PANEL PRTBLE E0431 MILDRED BARBERRELL GASEOUS 2 HOME HOME O2 SYS MEDICAL MEDICAL RENT; EQUIPME EQUIPME FLWMTR HUMIDFR&M ASK O2 CONC 1 E1390 MILDRED MILDRED DEL PORT 2 HOME HOME 85%/>02 MEDICAL MEDICAL CONC AT EQUIPME EQUIPME [facility] FLW RATE O2 CONC 1 E1390 MILDRED [place] 1 HOME HOME 85%/>02 MEDICAL MEDICAL CONC AT EQUIPME [facility] FL[facility] PRTBLE E0431 MILDRED LEVY GASEOUS 1 HOME HOME O2 SYS MEDICAL MEDICAL RENT; EQUIPME EQUIPME FLWMTR HUMIDFR&M ASK PRTBLE E0431 MILDRED LEVY GASEOUS 1 HOME HOME O2 SYS MEDICAL MEDICAL RENT; EQUIPME EQUIPME FLWMTR HUMIDFR&M ASK O2 CONC 1 E1390 MILDRED [place] 1 HOME HOME 85%/>02 MEDICAL MEDICAL CONC AT EQUIPME EQUIPME [facility] FLW RATE O2 CONC 1 E1390 MILDRED [place] 1 HOME HOME 85%/>02 MEDICAL MEDICAL CONC AT EQUIPME EQUIPME [facility] FLW RATE PRTBLE E0431 MILDRED LEVY GASEOUS 1 HOME HOME O2 SYS MEDICAL MEDICAL RENT; EQUIPME EQUIPME FLWMTR HUMIDFR&M ASK PRTBLE E0431 MILDRED LEVY GASEOUS 1 HOME HOME O2 SYS MEDICAL MEDICAL RENT; EQUIPME EQUIPME FLWMTR HUMIDFR&M ASK O2 CONC 1 E1390 MIL[place] 1 HOME HOME 85%/>02 MEDICAL MEDICAL CONC AT EQUIPME EQUIPME [facility] FLW RATE O2 CONC 1 E1390 MILDRED [place] 1 HOME MED HOME MED 85%/>02 EQUIP. L EQUIP. L CONC AT [facility] FLW RATE PRTBLE E0431 MILDRED LEVY GASEOUS 1 HOME MED HOME MED O2 SYS EQUIP. L EQUIP. L RENT; FLWMTR HUMIDFR&M ASK PRTBLE E0431 MILDRED LEVY GASEOUS 1 HOME MED HOME MED O2 SYS EQUIP. L EQUIP. L RENT; FLWMTR HUMIDFR&M ASK O2 CONC 1 E1390 MIL[place] 1 HOME MED HOME MED 85%/>02 EQUIP. L EQUIP. L CONC AT [facility] FLW RATE O2 CONC 1 E1390 MILDRED LEVY [facility] PORT 1 HOME MED HOME MED 85%/>02 EQUIP. L EQUIP. L CONC AT [facility] FLW RATE PRTBLE E0431 MILDRED LEVY GASEOUS 1 HOME MED HOME MED O2 SYS EQUIP. L EQUIP. L RENT; [facility] HUMIDFR&M ASK PRTBLE E0431 MILDRED LEVY GASEOUS 1 HOME MED HOME MED O2 SYS EQUIP. L EQUIP. L RENT; [facility] HUMIDFR&M ASK O2 CONC [address] [facility] 1 HOME MED HOME MED 85%/>02 EQUIP. L EQUIP. L CONC AT [facility] FLW RATE PRTBLE E0431 MILDRED LEVY GASEOUS 1 HOME MED HOME MED O2 SYS EQUIP. L EQUIP. L RENT; [facility] HUMIDFR&M ASK O2 CONC [address] [facility] 1 HOME MED HOME MED 85%/>02 EQUIP. L EQUIP. L CONC AT [facility] FLW RATE PRTBLE E0431 MILDRED LEVY GASEOUS 0 HOME MED HOME MED O2 SYS EQUIP. L EQUIP. L RENT; [facility] HUMIDFR&M ASK O2 CONC 1 E1390 MILDRED LEVY [facility] PORT 0 HOME MED HOME MED 85%/>02 EQUIP. L EQUIP. L CONC AT [facility] FLW RATE O2 CONC 1 E1390 MILDRED LEVY [facility] PORT 0 HOME MED HOME MED 85%/>02 EQUIP. L EQUIP. L CONC AT [facility] FLW RATE PRTBLE E0431 MILDRED LEVY GASEOUS 0 HOME MED HOME MED O2 SYS EQUIP. L EQUIP. L RENT; [facility] HUMIDFR&M ASK PRTBLE E0431 MILDRED LEVY GASEOUS 0 HOME MED HOME MED O2 SYS EQUIP. L EQUIP. L RENT; [facility] HUMIDFR&M ASK O2 CONC 1 E1390 [place] 0 HOME MED HOME MED 85%/>02 EQUIP. L EQUIP. L CONC AT [facility] FLW RATE PRTBLE E0431 MILDRED LEVY GASEOUS 0 HOME MED HOME MED O2 SYS EQUIP. L EQUIP. L RENT; FLWMTR HUMIDFR&M ASK O2 CONC 1 E1390 [place] 0 HOME MED HOME MED 85%/>02 EQUIP. L EQUIP. L CONC AT [facility] FLW RATE CULTURE 13738 [facility] FUNGI 0 Y Y DEFINITIV [facility] E ID EACH ORGANISM YEAST CULTURE 63232 [facility] FNGI 0 Y Y MOLD/YEAS [facility] T PRSMPTV OTH XCPT BLOOD SPECIAL 04103 [place] ALIRIO STAIN 0 [facility] YOL GROUP 1 SERV MICROORGA FOUNDATIO NISMS I&R BRONCHOSC 48598 [place] KUMAR OPY 0 MEDICAL MARIAN W/TRANSBR SERV ONCHIAL FOUNDATIO LUNG BX 1 LOBE BRONCHOSC 71408 [place] KUMAR OPY 0 MEDICAL MARIAN NEEDLE BX SERV TRACHEA FOUNDATIO MAIN STEM&/BRO N CONCENTRA 09544 [facility] TION 0 Y Y INFECTIOU [facility] S AGENTS VIRUS 48251 [facility] TISS CUL 0 Y [facility] ON CYTOPATHI C EFFECT IADNA NOS 86042 [facility] 0 Y Y AMPLIFIED [facility] PROBE TQ EACH ORGANISM CYTP FINE 79480 [place] BRENDEN REINA NDL 0 MEDICAL ASPIRATE SERV IMMT FOUNDATIO CYTOHIST STD DX 1ST CYTP EVAL 33591 [place] REINA FINE 0 MEDICAL NEEDLE SERV ASPIRATE FOUNDATIO INTERP & RE[place] [address] [place] ALIRIO SURG 0 [facility] BRILL YOL PATHOLOGY SERV FOUNDATIO GROSS&JESS ROSCOPIC EXAM VIRUS 49722 [facility] CENTRIFUG 0 Y Y E ENHNCD [facility] ID IMFLUOR STAIN EA SMR PRIM 43133 [facility] SRC 0 Y Y GRAM/GIEM [facility] SA STAIN BCT FUNGI/VAHID L CUL BACT 77418 [facility] XCPT 0 Y Y URINE [facility] BLOOD/STO OL AEROBIC ISOL IAADI 30368 [facility] PNEUMOCUS 0 Y Y TIS [facility] CARINII BRNCHSC 56223 [facility] W/BRNCL 0 Y Y [facility] LAVAGE SMR PRIM 91329 [facility] SRC 0 Y Y FLUORESCE [facility] NT&/AFS BCT FNGI PARASIT TISS FRED 38099 [facility] SLIDE 0 Y Y [facility] SKN/HR/NL S FNGI/ECTO PARASIT CULTURE 47051 [facility] TUBERCLE/ 0 Y Y [facility] ACID-FAST BACILLI ANY ISOL CELL 57085 [facility] COUNT 0 Y Y MISC BODY [facility] FLUIDS W/DIFFERE NTIAL COUNT RADIOLOGI 64140 [place] ROBBINS C 0 MEDICAL JESS EXAMINATI SERV ON CHEST FOUNDATIO [place] FRONTAL INJECTION J2250 [facility] 0 Y Y MIDAZOLAM [facility] HCL PER 1 MG INJECTION J3010 [facility] FENTANYL 0 Y Y CITRATE [facility] 0.1 MG O2 CONC 1 E1390 MILDRED LEVY [place] 0 HOME MED HOME MED 85%/>02 EQUIP. L EQUIP. L CONC AT [facility] FLW RATE PRTBLE E0431 MILDRED LEVY GASEOUS 0 HOME MED HOME MED O2 SYS EQUIP. L EQUIP. L RENT; FLWMTR HUMIDFR&M ASK PHLEBOTOM 01923 COMBINED COMBINED Y 0 PHYSICIAN PHYSICIAN THERAPEUT S LA S LA IC SEPARATE PROCEDURE RADEX 57947 LUCY AYALA ESOPHAGUS 0 [facility] INC INC DUP-SCAN 88948 LUCY AYALA XTR VEINS 0 [facility] COMPLETE INC INC BILATERAL STUDY BLOOD 52674 LUC[facility]AL[facility] COUNT 0 [facility] COMPLETE INC INC AUTO&AUTO DIFRNTL WBC COLLECTIO 55035 LUCY AYALA N VENOUS 0 [facility] BLOOD INC INC VENIPUNCT URE BRNCDILAT 72262 LUCY AYALA RSPSE 0 [facility] SPMTRY INC INC PRE&POST- BRNCDILAT ADMN PULMONARY 87727 [place] POLLOCK STRESS 0 MEDICAL JAM TESTING SERV SIMPLE FOUNDATIO COMPREHEN 92769 LUCY AYALA SIVE 0 [facility] METABOLIC INC INC PANEL COMPREHEN 67706 COMBINED COMBINED SIVE 0 PHYSICIAN PHYSICIAN METABOLIC S LAB S LAB PANEL COLLECTIO 77464 COMBINED COMBINED N VENOUS 0 PHYSICIAN PHYSICIAN BLOOD S LAB S LAB VENIPUNCT URE CT THORAX 90097 LUCY AYALA W/O 0 MEM [facility] CONTRAST INC INC MATERIAL 3D 38160 LUCY AYALA RENDERING 0 [facility] INC INC W/INTERP& POSTPROC DIFF WORK STATION RADIOLOGI 69647 [place] FRANCESCA Wganer EXAM 0 MEDICAL EMY CHEST 2 IMAGING VIEWS ASS FRONTAL&L ATERAL PRTBLE E0431 MILDRED MILDRED GASEOUS 0 HOME MED HOME MED O2 SYS EQUIP. [facility]. [facility] H[facility] ASK O2 CONC 1 E1390 MILDRED MIL[place] PORT 0 HOME MED HOME MED 85%/>02 EQUIP. EQUIP. CONC AT [facility] FLW RATE O2 CONC 1 E1390 MILDRED [place] 0 HOME MED HOME MED 85%/>02 EQUIP. EQUIP. CONC AT [facility] FLW RATE PRTBLE E0431 MILDRED MILDRED GASEOUS 0 HOME MED HOME MED O2 SYS EQUIP. EQUIP. RENT; [facility] HUMIDFR&M ASK ECG 60284 ERIKA JAMES, ROUTINE 0 DON R DON R ECG W/LEAST 12 LDS W/I&R RADIOLOGI 97585 ERIKA JAMES C EXAM 0 DON R DON R CHEST 2 VIEWS FRONTAL&L ATERAL INJECTION J1940 ERIKA JAMES 0 DON R DON R FUROSEMID E UP TO 20 MG RADIOLOGI 82796 ERIKA JAMES C 0 DON R DON R EXAMINATI ON CHEST [facility] 42161 ERIKA JAMES, DISCHARGE 0 DON R DON R DAY MANAGEMEN T 30 MIN/< RADIOLOGI 43315 [place] Kristy VILLEGAS EXAM 0 MEDICAL JANE P CHEST 2 IMAGING VIEWS ASSOCIATE FRONTAL&L S ATERAL SBSQ 47480 [facility] 0 DON R DON R CARE/DAY 25 MINUTES SBSQ 29326 [facility] 0 DON R DON R CARE/DAY 25 MINUTES SBSQ 53125 [facility] 0 DON R DON R CARE/DAY 25 MINUTES 3D 26066 [facility], RENDERING 0 MEDICAL SHASHI IMAGING W/INTERP& ASSOCIATE POSTPROC S DIFF WORK STATION CT THORAX 29919 [facility] MEDICAL SHASHI W/CONTRAS IMAGING T ASSOCIATE MATERIAL S [facility] 57493 [facility] 0 DON R DON R CARE/DAY 25 MINUTES [facility] 29436 [facility] 0 DON R DON R CARE/DAY 25 MINUTES INITIAL 34338 [facility] 0 DON R DON R CARE/DAY 50 MINUTES RADIOLOGI 76514 [place] FRANCESCA EXAM 0 MEDICAL SHASHI CHEST 2 IMAGING VIEWS ASSOCIATE FRONTAL&L S ATERAL RADIOLOGI 31890 ERIKA JAMES 0 DON R DON R EXAMINATI ON CHEST SINGLE VIEW FRONTAL OPHTH 49628 [facility] 9 DONTE A DONTE A XM&EVAL COMPRHNSV ESTAB PT 1/ SCANNING 10610 RETINA & NINI, OPHTHALMI 9 VITREOUS CALLIE W C IMAGING ASSOCIATE S O POSTERIOR SGM UNI OPHTH 89453 [facility] & NINI, MEDICAL 9 VITREOUS CALLIE W XM&EVAL ASSOCIATE INTERMEDI S O ATE ESTAB PT INJECTION J1040 ERIKA JAMES, 8 DON R DON R METHYLPRE DNISOLONE ACETATE 80 MG OPHTH 21673 [facility] & NINI, MEDICAL 8 VITREOUS CALLIE W XM&EVAL ASSOCIATE INTERMEDI S O ATE ESTAB PT SCANNING 65590 RETINA & NINI, OPHTHALMI 8 VITREOUS CALLIE W C IMAGING ASSOCIATE S O POSTERIOR SGM UNI INJECTION J1040 ERIKA JAMES, Adán DON R DON R METHYLPRE DNISOLONE ACETATE 80 MG OPHTH 97596 SARA RUIZ, [facility] 8 DONTE KENT A XM&EVAL COMPRHNSV ESTAB PT 1/ SCANNING 47375 RETINA & NINI, OPHTHALMI 8 VITREOUS CALLIE Winkler C IMAGING ASSOCIATE S O POSTERIOR SGM UNI OPHTH 19911 RETINA & NINI, MEDICAL 8 VITREOUS CALLIE W XM&EVAL ASSOCIATE INTERMEDI S O ATE ESTAB PT INJECTION J1040 ERIKA JAMES 8 DON R DON R METHYLPRE DNISOLONE ACETATE 80 MG RADIOLOGI 34659 ERIKA JAMES C EXAM 8 DON R DON R CHEST 2 VIEWS FRONTAL&L ATERAL OPHTH 73227 RETINA & RETINA & MEDICAL 8 VITREOUS VITREOUS XM&EVAL ASSOCIATE ASSOCIATE INTERMEDI S O S O ATE ESTAB PT SCANNING 21396 RETINA & RETINA & OPHTHALMI 8 VITREOUS VITREOUS C IMAGING ASSOCIATE ASSOCIATE S O S O POSTERIOR SGM UNI SCANNING 84028 RETINA & RETINA & OPHTHALMI 8 VITREOUS VITREOUS C IMAGING ASSOCIATE ASSOCIATE S O S O POSTERIOR SGM UNI OPHTH 08824 RETINA & RETINA & MEDICAL 8 VITREOUS VITREOUS XM&EVAL ASSOCIATE ASSOCIATE INTERMEDI S O S O ATE ESTAB PT INJECTION [id number] ERIKA JAMES, Adán DON R DON R DEXAMETHO SONE SODIUM PHOSPHATE 1 MG Encounters Encounter Start End Date Code Location Performer Type Date OFFICE 58593 [facility]ON OUTPATIEN 7 7 PHYSICIAN T VISIT S GROUP 40 MINUTES OFFICE 74172 Darnell VELASQUEZ 7 7 [place] [place] T VISIT PSYCHIATRIC 15 MINUTES OFFICE 79654 [facility] OUTPATIEN 7 7 Y OF CK T VISIT [place] 25 HOSPI [facility] LUC[facility] - 7 7 [facility] OFFICE 78315 A Kristy ROY OUTPATIEN 7 7 [place] [place] T VISIT PSYCHIATRIC 15 MINUTES OFFICE 96999 A Kristy VELASQUEZ 7 7 [place] [place] T VISIT PSC 15 MINUTES [facility] - [facility] [place] 00281 [place] [facility] [facility] 6 6 MEDICAL JAM T VISIT SERV 25 FOUNDATIO MINUTES N OFFICE 85762 [facility] ALLRAN JR OUTPATIEN 6 6 PHYSICIAN RITA T VISIT S GROUP 10 MINUTES [facility]OSPITAL L[facility] - 6 6 [facility] T OFFICE 34172 [facility] OUTPATIEN 6 6 [facility] VISIT [facility] 10 P MINUTES OFFICE 01446 [place] 6 6 MEDICAL JAM T VISIT SERV 15 FOUNDATIO MINUTES N OFFICE 80289 [facility] OUTPATIEN 6 6 PHYSICIAN RITA T VISIT S GROUP 15 MINUTES OFFICE 49403 [facility] OUTPATIEN 6 6 [facility] 20 HOSPITAL MINUTES [facility]OSPITAL LUCY - 6 6 [facility] OUTPATI[facility] INC T OFFICE 50461 [facility] OUTPATIEN 6 6 PHYSICIAN RITA T NEW 45 S GROUP MINUTES HOSPITAL LUCY - 6 6 [facility] T OFFICE 82078 [place] [facility] 6 6 MEDICAL JAM T VISIT SERV 25 FOUNDATIO MINUTES N OFFICE 76925 [place] [facility] 6 6 MEDICAL JAM T VISIT SERV 25 FOUNDATIO MINUTES [facility]OSPITAL LUCY - 6 6 [facility] OUTPATIEN INC T EMERGENCY 52581 [facility] 6 6 Y OF MADALYN VISIT [facility] HOSPI SEVERITY& THREAT FUN OFFICE 87854 A C KIRILL WEST OUTPATIEN 6 6 [place] T VISIT PSC 15 MINUTES OFFICE 48121 A Kristy WEST OUTPATIEN 6 6 [place] T VISIT PSC 15 MINUTES OFFICE 94485 [place] 6 6 MEDICAL JAM T VISIT SERV 40 FOUNDATIO MINUTES [facility]OSPITAL LUCY - 6 6 [facility]IENT [facility] OFFICE 49718 [place] [facility] 6 6 MEDICAL T VISIT SERV 25 FOUNDATIO MINUTES [facility] - 6 6 [facility]PAT[facility]EN [facility] OFFICE 90212 [place]PATI[facility] 6 6 MEDICAL JAM T VISIT SERV 15 FOUNDATIO MINUTES [facility] - 5 5 [facility] LUCY [facility] 5 5 [facility] OUTPAT[facility]EN [facility] LUCY - 5 5 [facility] OFFICE 55857 A C FIELD AMB OUTPATIEN 5 5 [place] T VISIT PSC 15 MINUTES OFFICE 76698 A C FIELD AMB OUTPATIEN 4 4 [facility] [place] T VISIT PSC 15 MINUTES [facility]OSPITAL LUCY - 4 4 [facility]UC[facility] - 4 4 [facility] LUCY - 4 4 [facility] LUCY - 4 4 [facility] LUCY - 4 4 [facility] - 4 4 [facility] 4 4 [facility] OFFICE 17129 FIELD AMB FIELD AMB OUTPATIEN 4 4 T VISIT 15 MINUTES OFFICE 77852 FIELD AMB FIELD AMB OUTPATIEN 3 3 T VISIT 15 MINUTES OFFICE 84243 A C FIELD AMB OUTPATIEN 3 3 PILAR PLEITEZ T NEW 30 PSC MINUTES OFFICE 09993 ERIKA MELENDREZS OUTPATIEN 3 3 DON DON T VISIT 15 MINUTES [facility] LUC[facility] - 3 3 [facility] OFFICE 70650 JAMES JAMES OUTPATIEN 3 3 DON DON T VISIT 15 MINUTES [facility] LUCY - 2 2 [facility] OFFICE 67117 JAMES JAMES OUTPATIEN 2 2 DON DON T VISIT 15 MINUTES [facility] LUCY - 2 2 [facility] - 2 2 [facility] LUCY - 2 2 [facility] LUCY - 2 2 [facility] OFFICE 00187 JAMES JAMES OUTPATIEN 2 2 DON DON T VISIT 15 MINUTES OFFICE 81251 JAMES JAMES OUTPATIEN 1 1 DON DON T VISIT 15 MINUTES OFFICE [id number] JAMES JAMES OUTPATIEN 1 1 DON DON T VISIT 15 MINUTES OFFICE [id number] JAMES JAMES OUTPATIEN 1 1 DON DON T VISIT 15 MINUTES OFFICE [id number] JAMES JAMES OUTPATIEN 1 1 DON DON T VISIT 15 [facility]ES [facility] OFFICE [id number] ERIKA JAMES OUTPATIEN 0 0 DON R DON R T VISIT 15 MINUTES OFFICE [id number] ERIKA JAMES OUTPATIEN 0 0 DON R DON R T VISIT 25 MINUTES OFFICE [id number] ERIKA JAMES OUTPATIEN 0 0 DON R DON R T VISIT 15 MINUTES OFFICE [id number] ERIKA JAMES OUTPATIEN 8 8 DON R DON R T VISIT 15 MINUTES OFFICE 11230 ERIKA JAMES OUTPATIEN 8 8 DON R DON R T VISIT 15 MINUTES OFFICE [id number] ERIKA JAMES OUTPATIEN 8 8 DON R DON R T VISIT 15 MINUTES OFFICE [id number] ERIKA JAMES OUTPATIEN 8 8 DON R DON R T VISIT 15 MINUTES OFFICE [id number] ERIKA JAMES OUTPATIEN 8 8 DON R DON R T VISIT 15 MINUTES
--- OUTSIDE RECORDS SUMMARY | 2016-10-24 15:09 | External Medical Summary Rpt ---
Author Author , Organization [employer] Address Unknown Phone Unavailable Care Team Providers Care Balance Staff Inspector Name Role Phone A Kristy QUEZADA MD [...] JENNA WALLACE JAMILAH, Unavailable Unavailable WALLACE JAMILAH WALALCE JAMILAH, Unavailable Unavailable WALLACE JAMILAH FONTANEZ ALL, FONTANEZ ALL Unavailable Unavailable ROBBINS JESS, ROBBINS Unavailable Unavailable JESS [facility] Unavailable Unavailable SERVICE, [facility] Unavailable Unavailable SERVICE, [facility] Unavailable Unavailable [facility], [facility] Unavailable Unavailable [facility], [facility] Unavailable Unavailable LAB, [facility] COOK JOSH, COOK JOSH Unavailable Unavailable FRANCESCA EMY, Unavailable Unavailable FRANCESCA [...] Unavailable TAYLOR KEYANA, TAYLOR Unavailable Unavailable KEYANA [facility] Unavailable Unavailable INC, [facility] Unavailable Unavailable HOSPITAL P, [facility] P DONTE RUIZ A, Unavailable Unavailable DONTE RUIZ [facility], Unavailable Unavailable [facility] ARMENDARIZ JENNA, ARMENDARIZ JENNA Unavailable Unavailable HUI MIKHAIL, HUI MIKHAIL Unavailable Unavailable BECKY NIXON, BECKY Unavailable Unavailable [facility], [facility] NINI, CALLIE W, Unavailable Unavailable NINI, CALLIE W [facility] Un[facility] Un[facility] Un[facility] GLENN JR, GLENN JR Unavailable Unavailable GLENN JR DWI, GLENN Unavailable Unavailable JR DWI [facility] Unavailable Unavailable INTERNAL MED, [facility] JAMES CON, JAMES CON Unavailable Unavailable POLLOCK, POLLOCK Unavailable Unavailable POLLOCK JAM, Unavailable Unavailable POLLOCK JAM POLLOCK JAM, Unavailable Unavailable POLLOCK JAM NELLY KEY, NELLY Unavailable Unavailable KEY NELLY, JANE P, Unavailable Unavailable NELLY, JANE P [facility] Unavailable Unavailable LAB [facility], [facility] Unavailable Unavailable [facility], [facility] LORI BET, LORI BET Unavailable Unavailable KIRILL, KIRILL Unavailable Unavailable KIRILL JENNA, KIRILL JENNA Unavailable Unavailable REYEZ CLEO, REYEZ CLEO Unavailable [facility]available [facility] Unavailable Unavailable LAB[facility] PAVEZ MAR, PAVEZ MAR Unavailable Unavailable PAULA JURGEN Unavailable Unavailable ANNEL, PAULA JURGEN ANNEL [facility]available [facility], [id number], Unavailable Unavailable [id number] Unavailable Unavailable [id number] [address] [id number], [facility] [id number] # [id number] SHANELL CAR, Unavailable Unavailable SHANELL CAR SHASHY [...] RONNY JANENE PALMA, JANENE Unavailable Unavailable PALMA JNAENE BERGMAN, JANENE Unavailable Unavailable OTTO BOOTH Unavailable Unavailable [facility], Unavailable Unavailable [facility] Unavailable [facility] HIEU FRANCO, HIEU Unavailable Unavailable [facility], Unavailable [facility], Unavailable [facility]available [facility] ZAGUROVSKAYA MAR, Unavailable Unavailable ZAGUROVSKAYA MAR Purpose Continuity of Care Document - 04-25-2007 through 2016 Problems Code Diagnosis DOS Provider Status 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 UNSPECIFIED GROUP I119 HYPERTENSIV 09-04-[address] [facility] E HEART PHYSICIANS DISEASE GROUP WITHOUT HEART FAILURE I2510 [facility] [place] 09-04-[address] 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 ANTERIOR PHYSICIANS FASCICULAR GROUP BLOCK J410 SIMPLE 09-04-2016 A Kristy GARLAND MD PSC BRONCHITIS J449 CHRONIC 09-04-[address] [facility] OBSTRUCTIVE PHYSICIANS PULMONARY GROUP DISEASE UNS R0600 DYSPNEA 09-04-[address] [facility] UNSPECIFIED PHYSICIANS GROUP R938 ABNORMAL 09-04-[address] [facility] FIND ON DX PHYSICIANS IMAGING OT GROUP SPEC BODY STRCT I200 UNSTABLE 08-27-[address] [facility] ANGINA PHYSICIANS GROUP I10 ESSENTIAL 08-25-2016 [facility] P N [id number] [facility] [place] 08-25-2016 [facility] W/[facility] P ANGINA PECTORIS I272 OTHER 08-25-2016 [facility] P HYPERTENSIO N R0602 SHORTNESS 08-25-2016 [place] [facility] R079 CHEST PAIN 08-25-2016 [facility] I4891 UNSPECIFIED 07-03-2016 [facility] ATRIAL HOME FIBRILLATIO MEDICAL N EQUIPME I482 CHRONIC 06-14-2016 A Kristy QUEZADA ATRIAL PSC FIBRILLATIO N J9610 CHRONIC 06-14-2016 A Kristy QUEZADA RESPIRATORY PSC FAIL UNS HYPOXIA/HYP ERCAPNIA R296 REPEATED 06-14-2016 A Kristy KHAN MD PSC B957 OTH 05-14-2016 [facility] CUSS CAUSE INC OF DZ CLASSIFIED ELSW J209 ACUTE 05-14-2016 [facility] BRONCHITIS [facility] UNSPECIFIED INC J440 COPD WITH 05-14-2016 [facility] ACUTE LOWER [facility] INC RESPIRATORY INFECTION J441 CHRONIC 05-14-2016 [facility] OBSTRUCTIVE [facility] PULMONARY INC DZ W/EXACERBAT ION 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 UNSPECIFIED PHYSICIANS GROUP K828 OTHER 01-02-2016 [facility] SPECIFIED MEDICAL DISEASES OF IMAGING ASS GALLBLADDER R630 ANOREXIA 01-02-2016 [facility] K921 MELENA 11-07-[address] [facility] K5710 DIVERTICULO 11-03-2015 [facility] S[facility] SM MEDICAL INTEST W/O IMAGING ASS PERF/ABSC W/O BLEED R195 OTHER FECAL 11-03-2015 [facility] ABNORMALITI IM[facility] ASS ES A95228 LYMPHOCYTOS 10-26-2015 [facility] IS PATHOLOGY SYMPTOMATIC LAB NETW J690 PNEUMONITIS 10-26-2015 [facility] INHALATION [facility] OF FOOD AND VOMIT B370 CANDIDAL 10-19-2015 [facility] STOMATITIS SERV [facility] R112 NAUSEA WITH 10-19-2015 [facility] VOMIT[facility] SERV UNSPECIFIED FOUNDATION I509 HEART 10-15-2015 [facility] FAILURE HOME UNSPECIFIED MEDICAL EQUIPME R531 WEAKNESS 09-20-2015 [facility] 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 [facility] R BLOCK SERV [facility] R9431 ABNORMAL 09-18-2015 [facility] ELECTROCARD SERV IOGRAM FOUND[facility] I4510 UNSPECIFIED 09-15-2015 [facility] RIGHT [facility] BUNDLE-BRAN FOUND[facility] CH BLOCK R001 BRADYCARDIA 09-15-2015 [facility] UNSPECIFIED FOUNDATION B965 PSEUDOMONAS 09-14-2015 [facility] CAUSE OF SERV DZ [facility] CLASSIFIED ELSEWHERE J9600 ACUTE 09-14-2015 [facility] RESPIRATORY SERV FAIL UNS FOUNDATION HYPOXIA/HYP ERCAPNIA J9811 ATELECTASIS 09-14-2015 [facility] N03060 ENCOUNTER 09-14-2015 [facility] SURG [facility] AFTERCARE [facility] FLW SURG DIGESTIVE SYS Z049 ENCOUNTER 09-13-2015 [facility] EXAMINATION SERV &OBSERVATIO FOUNDATION N FOR UNS REASON K5900 CONSTIPATIO 09-12-2015 [facility] N SERV UNSPECIFIED FOUNDATION R140 ABDOMINAL 09-10-2015 [facility] DISTENSION SERV GASEOUS [facility]OUNDATION R0989 OTH SPEC SX 09-09-2015 [facility] & SIGNS SERV INVLV THE FOUNDATION CIRC & RESP SYS R918 OTHER 09-09-2015 [facility] NONSPECIFIC SERV ABNORMAL [facility]OUNDATION FINDING OF LUNG FIELD A419 SEPSIS 09-08-2015 [facility] UNSPECIFIED SERV ORGANISM FOUNDATION E873 ALKALOSIS 09-08-2015 [facility] E876 HYPOKALEMIA 09-08-2015 [facility] J90 PLEURAL 09-08-2015 [facility] EFFUSION SERV NOT FOUNDATION ELSEWHERE CLASSIFIED J9620 ACUTE 09-08-2015 [facility] CHRONIC SERV RESP FAIL FOUNDATION UNS HYPOXIA/HYP ERCAPNIA J984 OTHER 09-08-2015 [facility] DISORDERS SERV OF LUNG FOUNDATION R109 UNSPECIFIED 09-08-2015 [facility] ABDOMINAL SERV PAIN FOUND[facility] Z4682 ENCOUNTER 09-08-2015 [facility] NON-VASCULA R CATHETER 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-07-2015 [facility] DISORDER SERV UNSPECIFIED FOUNDATION I517 CARDIOMEGAL 09-07-2015 [facility] Y SERV [facility] I5189 OTHER 09-07-2015 [facility] ILL-DEFINED SERV HEART [facility]OUNDATION DISEASES R0902 HYPOXEMIA 09-06-2015 [facility] R0689 OTHER 09-02-2015 [facility] ABNORMALITI SERV ES OF FOUNDATION BREATHING J942 HEMOTHORAX 08-30-2015 [facility] J948 OTHER 08-30-2015 [facility] SPECIFIED SERV PLEURAL FOUNDATION CONDITIONS L538 OTHER 08-30-2015 [facility] SPECIFIED SERV ERYTHEMATOU FOUNDATION S CONDITIONS Z9889 OTHER 08-30-2015 [facility] SPECIFIED SERV POSTPROCEDU FOUNDATION RAL STATES 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 J189 PNEUMONIA 08-03-2015 [facility] UNSPECIFIED [facility]ICAL ORGANISM IMAGING ASS J439 EMPHYSEMA 08-03-2015 [place] UNSPECIFIED BRUIN INTERNAL MED J929 PLEURAL 08-03-2015 [facility] WITHOUT IMAGING ASS ASBESTOS R002 PALPITATION 08-03-2015 [facility] S [facility] R031 NONSPECIFIC 08-03-2015 [facility] LOW SERV BLOOD-PRESS [facility] URE READING R42 DIZZINESS 08-03-2015 [facility] AND SERV GIDDINESS [facility] 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 MED J42 UNSPECIFIED 07-13-2015 [place] CHRONIC MEDICAL BRONCHITIS IMAGING ASS Z7722 CONTACT W/ 07-13-2015 [facility] & SUSPECTED SERV EXPOS [facility] ENVIR TOBACCO SMOKE J40 BRONCHITIS 03-25-2015 [facility] NOT MEDICAL SPECIFIED IMAGING ASS ACUTE OR CHRONIC R091 PLEURISY 01-21-2015 [facility] 4280 CONGESTIVE 01-14-2015 [facility] HE[facility] HOME FAILURE MEDICAL UNSPECIFIED EQUIPME 32136 OBSTRUCTIVE 01-14-2015 [facility] WITHOUT EXACERBAT 496 CHRONIC 01-14-[address] [facility] HOME OBSTRUCTION MEDICAL NEC EQUIPME 63602 NUCLEAR 12-28-2014 [facility] SCLEROSIS JAMILAH 44791 OBST 09-06-2014 A Kristy QUEZADA CHRONIC PSC BRONCHITIS W/ACUTE BRONCHITIS 09660 LOSS OF 09-06-2014 A Kristy QUEZADA WEIGHT PSC 09292 OTHER CHEST 09-06-2014 A Kristy QUEZADA PAIN PSC 36307 OBSTRUCTIVE 09-05-2014 [facility] SLEEP HOME APNEA MEDICAL EQUIPME 7242 LUMBAGO 04-01-2014 A Kristy QUEZADA MD PSC V0382 NEED PROPH 04-01-2014 A Kristy QUEZADA VACCINATION PSC AGAINST STREP PNEUMONE 21080 ATRIAL 01-13-2014 [facility] FIBRILLATIO [facility] N INC 42909 REFLUX 01-13-2014 [facility] ESOPHAGITIS [facility] INC 78607 UNS 01-13-2014 [facility] GASTRITIS&G [facility] ASTRODUODIT INC IS W/O MENTION HEMORR 53329 ABDOMINAL 01-13-2014 [facility] PAIN, [facility] GENERALIZED INC V5869 LONG-TERM 01-13-2014 [facility] (CURRENT) [facility] USE OF INC OTHER MEDICATIONS 95761 CHEST PAIN 11-24-2013 [facility] UNSPECIFIED [facility] INC 5110 PLEURISY 10-29-2013 [facility] WITHOUT MEDICAL MENTION IMAGING ASS EFFUS/CURRE NT TB 7862 COUGH 10-29-2013 [facility] 45780 INSOMNIA 12-16-2012 A Kristy ANDREAIFIED PSC 73898 OTHER 12-16-2012 Darnell QUEZADA MALAISE AND PSC FATIGUE 26842 FEVER 05-23-2012 J[facility] UNSPECIFIED DON 47270 WHEEZING 05-23-2012 JAMES DON 1120 CANDIDIASIS 05-21-2012 J[facility] OF MOUTH DON 39473 OTHER 05-21-2012 FRANCESCA DISEASES OF EMY LUNG NOT ELSEWHERE CLASSIFIED 4940 BRONCHIECTA 01-28-2012 [place] SIS WITHOUT MEDICAL ACUTE IMAGING ASS EXACERBATIO N 5119 UNSPECIFIED 01-28-2012 [facility] PLEURAL MEDICAL EFFUSION IMAGING ASS 70922 OTHER 01-28-2012 [facility] NONSPECIFIC [facility] ABNORMAL INC FINDING OF LUNG FIELD 17405 OSTEOARTHRO 01-02-2012 JAMES S INVLV MX DON SITES BUT [place] SPEC GEN 80074 OBSTRUCTIVE 11-12-2011 [facility] CHRONIC [facility] BRONCHITIS INC WITH EXACERBATIO N 73679 ESOPHAGEAL 11-12-2011 [facility] REFLUX [facility] INC 2859 UNSPECIFIED 10-05-2011 [facility] ANEMIA [facility] INC 5180 PULMONARY 10-05-2011 [facility] 486 PNEUMONIA, 09-28-2011 [facility] ORGANISM MEDICAL UNSPECIFIED IMAGING ASS 5070 PNEUMONITIS 09-28-2011 [place] DUE TO JAM INHALATION OF FOOD OR VOMITUS 12869 SHORTNESS 09-28-2011 [facility] OF BREATH [facility] INC 78128 ABDOMINAL 09-28-2011 [facility] PAIN, [facility] EPIGASTRIC INC V1261 PERSONAL 09-28-2011 [facility] HISTORY JAM PNEUMONIA RECURRENT 26571 PNEUMONIA 06-08-2011 JAMES DUE TO DON OTHER SPECIFIED BACTERIA 2724 OTHER AND 05-11-2011 [facility] UNSPECIFIED PHYSICIANS [place] HYPERLIPIDE [place] 2768 HYPOPOTASSE 05-11-2011 [facility] [place] PHYSICIANS [place] 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 6019 UNSPECIFIED 05-11-2011 [place] [address] PAIN IN 05-11-2011 COMBINED JOINT, PHYSICIANS MULTIPLE LA SITES 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 5183 PULMONARY 11-28-2009 [facility] A 20092 ACUTE 11-28-2009 [facility] RESPIRATORY SERV FAILURE FOUNDATIO 7856 ENLARGEMENT 11-28-2009 [facility] NODES 7931 NONSPEC 11-28-2009 [place] [facility] F[facility] RAD SERV OTH EXAM FOUNDATIO BODY STRUCT LUNG FIELD V1582 PERS HX 11-28-2009 [facility] PRESENTING [facility] V7282 PRE-OPERATI 11-28-2009 [place] [facility] VE SERV RESPIRATORY FOUNDATIO EXAMINATION 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 16056 DYSPHAGIA 11-18-2009 [place] UNSPECIFIED [facility]ICAL IMAGING ASS 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, 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, ATORY DON R PULMONARY FIBROSIS 12946 OSTEOARTHRO 08-23-2009 JAMES, SIS UNSPEC DON R WHETHER GEN/LOC LOWER LEG 12183 OSTEOARTHRO 08-23-2009 ERIKA, S UNSPEC DON R GEN/LOC OTH SPEC SITES 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 RUIZ A N OF RETINA UNSPECIFIED 81281 NONEXUDATIV 07-20-2008 RET[facility] & 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 44858 EXUDATIVE 07-20-2008 [facility] & SENILE [facility] DEGENERATIO O N OF RETINA 41147 CRYSTALLINE 07-20-2008 RET[facility] & DEPOSITS VITREOUS IN VITREOUS ASSOCIATES O 4610 ACUTE 02-27-2008 JAMES, MAXILLARY DON R SINUSITIS 4659 ACUTE URIS 02-27-2008 ERIKA, OF DON R UNSPECIFIED SITE 8472 LUMBAR 11-14-2007 JAMES, SPRAIN AND DON R STRAIN 4660 ACUTE 08-02-2007 JAMES, BRONCHITIS DON R 4871 INFLUENZA 07-04-2007 ERIKA, WITH OTHER DON R RESPIRATORY MANIFESTATI ONS 86213 PAIN IN 04-25-2007 JAMES, JOINT, DON R SHOULDER REGION 09379 UNSPECIFIED 04-25-2007 JAMES, SYNOVITIS DON R AND TENOSYNOVIT IS Medications Na ND Rx Da Fi Fi [...] ET 03 93 8 # 03 93 MA 00 04 04 00 12 6 RI 72 No Ac OM 60 -1 -2 0. TE 86 t ti ET 31 2 4 00 86 Av ve PERAZA 58 20 20 0 AI ai ZI 55 08 08 D la NE 8 PH bl -C AR e OD M EI #3 NE 93 8 SY RU P Procedures Procedure DOS Code Location Performer Comment ADMN SET A7003 YOUR YOUR SM VOL 7 PHARMACY PHARMACY [facility] [employer] [employer] [facility] PNEUMAT NEBULIZR DISPBL ALBUTEROL J7620 YOUR YOUR TO 2.5 7 PHARMACY PHARMACY & [facility] [facility] IPRATROPI UM BROM TO 0.5 MG ALBUTEROL J7620 A C A C TO 2.5 7 PILAR QUEZADA MD MG & PSC PSC IPRATROPI UM BROM TO 0.5 MG ECG 92576 [facility] ROUTINE 7 PHYSICIAN ECG S GROUP W/LEAST 12 LDS I&R ONLY R & L HRT 87860 [facility] CATH 7 PHYSICIAN WINJX HRT S GROUP ART& L VENTR IMG RADIOLOGI [address] [facility] [address] C 7 MEDICAL EXAMINATI IMAGING ON CHEST ASS SINGLE VIEW FRONTAL ECG 00330 [facility] ELIZABETH JR ROUTINE 7 [facility] W/LEAST P 12 LDS I&R ONLY ADMN SET A7003 YOUR YOUR SM VOL 7 PHARMACY PHARMACY [employer] PNEUMAT NEBULIZR DISPBL ALBUTEROL J7620 YOUR YOUR TO 2.5 7 PHARMACY PHARMACY [facility] IPRATROPI UM BROM TO 0.5 MG O2 CONC 1 E1390 [facility] 7 HOME HOME 85%/>02 MEDICAL MEDICAL CONC AT EQUIPME EQUIPME PRSC FLW RATE O2 CONC 1 E1390 [facility] 7 HOME HOME 85%/>02 MEDICAL MEDICAL CONC AT EQUIPME EQUIPME PRSC [place] RADIOLOGI 92483 [facility] C EXAM 7 MEDICAL MEDICAL CHEST 2 IMAGING IMAGING VIEWS ASS ASS FRONTAL&L ATERAL O2 CONC 1 E1390 [facility] [place] 7 HOME HOME 85%/>02 MEDICAL MEDICAL CONC AT EQUIPME EQUIPME PRSC FLW RATE O2 CONC 1 E1390 [facility] [place] 6 HOME HOME 85%/>02 MEDICAL MEDICAL CONC AT EQUIPME EQUIPME PRSC FLW R[place] O2 CONC 1 E1390 [facility] HOME HOME 85%/>02 MEDICAL MEDICAL CONC AT EQUIPME EQUIPME PRSC FLW RATE PHRM Q0513 YOUR YOUR DISPENSIN 6 PHARMACY PHARMACY G FEE [facility] INHALATIO N RX; PER 30 DAYS ADMN SET A7003 YOUR YOUR SM VOL 6 PHARMACY PHARMACY [employer] PNEUMAT NEBULIZR DISPBL ALBUTEROL J7620 YOUR YOUR TO 2.5 6 PHARMACY PHARMACY [facility] IPRATROPI UM BROM TO 0.5 MG O2 CONC 1 E1390 [facility] 6 HOME HOME 85%/>02 MEDICAL MEDICAL CONC AT EQUIPME [facility]QU[facility] G0463 [facility] AYALA OUTPATIEN 6 MEM H[facility] T CLIN INC INC VISIT ASSESS & MGMT PT O2 CONC 1 E1390 [facility] [place] 6 HOME HOME 85%/>02 MEDICAL MEDICAL CONC [place] [address] L[facility] AYALA ABDOMEN 6 [facility] W/CONTRAS INC INC T MATERIAL LOCM Q9967 L[facility] AYALA [phone] 6 [facility] MG/ML INC INC IODINE CONCENTRA TION PER ML COLLECTIO 77267 [facility] AYALA N VENOUS 6 [facility] BLOOD INC INC VENIPUNCT URE COMPREHEN 23782 [facility] A[facility]AL[facility] SIVE 6 [facility] METABOLIC INC INC PANEL BLOOD 35123 [facility] AYALA COUNT 6 [facility] COMPLETE INC INC AUTO&AUTO DIFRNTL WBC ANES 57000 [facility] UPPER GI 6 ANESTH PALMA ENDOSCOPY OF THE PROXIMAL BLUE TO DUODENUM O2 CONC 1 E1390 [facility] [place] 6 HOME HOME 85%/>02 MEDICAL MEDICAL CONC AT EQUIPME EQUIPME PRS FLW RATE RADEX 24079 TEX FONTANEZ ALL UPPER GI 6 MEDICAL W/WO IMAGING GLUCAGON/ ASS DELAY IMGES W/O KUB O2 CONC 1 E1390 [facility] 6 HOME MAR 85%/>02 MEDICAL CONC AT EQUIPME [facility] FLW RATE RADEX 98061 [facility] AYALA UPPER GI 6 [facility] HOS[facility] W/WO INC INC GLUCAGON/ DELAY IMAGES W/KUB FLOW 53535 [facility] AYALA CYTOMETRY 6 [facility] CELL INC INC SURF MARKER TECHL ONLY 1ST FLOW 37916 MOLECULAR MOLECULAR CYTOMETRY 6 [facility] PATHOLOGY 2-8 LAB NETW LAB NETW MARKERS FLOW 56594 [facility] AYALA CYTOMETRY 6 [facility] CELL INC INC SURF MARKER TECHL ONLY EA COLLECTIO 65064 [facility] AYALA N VENOUS 6 [facility] BLOOD INC INC VENIPUNCT URE NEBULIZER E0570 [facility] LEV[facility] WITH 6 HOME HOME COMPRESSO MEDICAL MEDICAL R EQUIPME EQUIPME O2 CONC 1 E1390 [facility] [place] 6 HOME KEY 85%/>02 MEDICAL CONC AT EQUIPME [facility] FLW RATE SEAT E0156 [facility] ATTACHMEN 6 T WALKER WALKER E0143 [facility] FOLDING 6 WHEELED ADJUSTABL E/FIXED HEIGHT ECG 88333 [place] [facility] ROUTINE 6 MEDICAL ECG SERV W/LEAST FOUNDATIO 12 LDS N I&R ONLY ECG 68870 [place] [facility] ROUTINE 6 MEDICAL NAN ECG SERV W/LEAST FOUNDATIO 12 LDS N I&R ONLY RADIOLOGI 47067 [place] JAMES CON C 6 MEDICAL EXAMINATI SERV ON CHEST FOUNDATIO SINGLE N VIEW FRONTAL SBSQ 07707 [place] [facility] 6 MEDICAL KEYANA CARE/DAY SERV 25 FOUNDATIO MINUTES N SBSQ 75143 [facility] 6 MEDICAL KEYANA CARE/DAY SERV 15 FOUNDATIO MINUTES N RADIOLOGI 48976 [place] [facility] C 6 MEDICAL AYA MAR EXAMINATI SERV ON CHEST FOUNDATIO SINGLE N VIEW FRONTAL RADIOLOGI 66572 [place] [facility] C 6 MEDICAL EXAMINATI SERV ON CHEST FOUNDATIO SINGLE N VIEW FRONTAL SBSQ 29743 [facility] 6 MEDICAL KEYANA CARE/DAY SERV 15 FOUNDATIO MINUTES N SBSQ 46368 [place] [facility] 6 MEDICAL CARE/DAY SERV 25 FOUNDATIO MINUTES N RADIOLOGI 88663 [place] [facility] C 6 MEDICAL EXAMINATI SERV ON CHEST FOUNDATIO SINGLE N VIEW FRONTAL RADIOLOGI 73047 [place] [facility] C 6 MEDICAL EXAMINATI SERV ON CHEST FOUNDATIO SINGLE N [place]IEW FRONTAL ECG [address] [place] [facility] ROUTINE 6 MEDICAL ECG SERV W/LEAST FOUNDATIO 12 LDS N I&R ONLY SBSQ 71548 [place] [facility] 6 MEDICAL CARE/DAY SERV 25 FOUNDATIO MINUTES N RADEX 50553 [place] [facility] ABDOMEN 1 6 MEDICAL SUSAN SERV ANTEROPOS FOUNDATIO TERIOR N VIEW CRITICAL 29105 [place] [facility] CARE 6 MEDICAL ILL/INJUR SERV ED FOUNDATIO PATIENT N INIT 30-74 MIN RADEX 18449 [facility] ABDOMEN 1 6 Y OF CAR [place] [facility] TERIOR VIEW ECG [address] [place] [facility] ROUTINE 6 MEDICAL ECG SERV W/LEAST FOUNDATIO 12 LDS N I&R ONLY RADIOLOGI 51978 [place] [facility] LE[facility] C 6 MEDICAL EXAMINATI SERV ON CHEST FOUNDATIO SINGLE N VIEW FRONTAL RADIOLOGI 26163 [place] [facility] C 6 MEDICAL AYA MAR EXAMINATI SERV ON CHEST FOUNDATIO SINGLE N VIEW FRONTAL SBSQ 81204 [facility] 6 MEDICAL CARE/DAY SERV [address] [place] [address] [place] [facility] ABDOMEN & 6 MEDICAL PELVIS SERV W/CONTRAS FOUNDATIO T N MATERIAL RADEX 36483 [facility] ABDOMEN 1 7 Y OF CAR TEX ANTEROPOS HOSPI TERIOR VIEW CT THORAX [address] [place] [facility] CON 6 MEDICAL W/CONTRAS SERV T FOUNDATIO MATERIAL N RADEX ABD 54170 [place] [facility] COMPL 6 MEDICAL JURGEN AQT ABD SERV ANNEL W/S/E/D FOUNDATIO VIEWS 1 N VIEW CH INITIAL [address] [place] [address] MEDICAL SUN KAYODE CARE/DAY SERV 30 FOUNDATIO MINUTES N ECG 35783 [facility] ROUTINE 6 MEDICAL ECG SERV W/LEAST FOUNDATIO 12 LDS N I&R ONLY SBSQ 80512 [place] [address] MEDICAL AND CARE/DAY SERV 25 FOUNDATIO MINUTES N RADIOLOGI 89312 [place] [facility] CON C 6 MEDICAL EXAMINATI SERV ON CHEST FOUNDATIO SINGLE N VIEW FRONTAL ECHO 08449 [place] [facility] TTH[facility] R-T 6 MEDICAL ERIKA 2D SERV W/WOM-MOD FOUNDATIO E COMPL N SPEC&COLR D SBSQ 75310 [place] [address] MEDICAL AND CARE/DAY SERV 25 FOUNDATIO MINUTES N RADIOLOGI 89957 [place] [facility] CON C 6 MEDICAL EXAMINATI SERV ON CHEST FOUNDATIO SINGLE N VIEW FRONTAL RADIOLOGI 93639 [place] [facility] CON C 6 MEDICAL EXAMINATI SERV ON CHEST FOUNDATIO SINGLE N VIEW FRONTAL ECG 20443 [facility] ROUTINE 6 MEDICAL ECG SERV W/LEAST FOUNDATIO 12 LDS N I&R ONLY RADIOLOGI 58014 [place] [facility]ER[facility] C 6 MEDICAL AYA MAR EXAMINATI SERV ON CHEST FOUNDATIO SINGLE N VIEW FRONTAL RADEX 07960 [facility] ABDOMEN 1 6 Y OF CAR TEX ANTEROPOS HOSPI TERIOR VIEW RADEX 64467 [place] [facility]EROG[place] ABDOMEN 1 6 MEDICAL AYA MAR SERV ANTEROPOS FOUNDATIO TERIOR N VIEW RADIOLOGI 85155 [place] [facility] C 6 MEDICAL JESS EXAMINATI SERV ON CHEST FOUNDATIO SINGLE N VIEW FRONTAL RADIOLOGI 17024 [place] [facility]OGALL[facility] C 6 MEDICAL AYA MAR EXAMINATI SERV ON [place] [address] [place] AYOO[facility] AND ABDOMEN & 6 MEDICAL PELVIS SERV W/CONTRAS FOUNDATIO T N MATERIAL RADEX 70150 [facility]ANELL ABDOMEN 1 7 Y OF CAR TEX ANTEROPOS HOSPI TERIOR VIEW CT THORAX [address] [place] ARMENDARIZ JENNA 6 MEDICAL W/CONTRAS SERV T FOUNDATIO MATERIAL N RADEX 64554 [facility] SHANELL ABDOMEN 1 6 Y OF CAR [place] [facility] TERIOR VIEW SBSQ 00465 [facility] 6 MEDICAL AND CARE/DAY SERV 25 FOUNDATIO MINUTES N RADIOLOGI 72946 [place] DELL CAR C 6 MEDICAL EXAMINATI SERV ON CHEST FOUNDATIO SINGLE N VIEW FRONTAL SBSQ 26363 [facility] 6 MEDICAL AND CARE/DAY SERV 25 FOUNDATIO MINUTES N RADIOLOGI 48262 [place] JAMES CON C 6 MEDICAL EXAMINATI SERV ON CHEST FOUNDATIO SINGLE N VIEW FRONTAL ECG 47338 [place] PELAEZ ROUTINE 6 MEDICAL NAN ECG SERV W/LEAST FOUNDATIO 12 LDS N I&R ONLY ECG 19921 [place] HUI MIKHAIL ROUTINE 6 MEDICAL ECG SERV W/LEAST FOUNDATIO 12 [place] [address] [place] HIEU SURG 6 MEDICAL FRANCO PATHOLOGY SERV FOUNDATIO GROSS&JESS N ROSCOPIC EXAM LEVEL III 08804 [place] HIEU SURG 6 MEDICAL FRANCO PATHOLOGY SERV FOUNDATIO GROSS&JESS N ROSCOPIC EXAM SBSQ 89936 [facility] 6 MEDICAL RONNY CARE/DAY SERV 25 FOUNDATIO MINUTES N ARTL 54777 [facility] CATHJ/CAN 6 Y OF Y OF N[facility] MNTR/[facility] SFUSION SPX PRQ ANESTHESI 60925 [facility] LORI BET A HERNIA 6 Y OF REPAIR [place] [facility] ABDOMEN NOS RPR 1ST 51366 [facility] 6 MEDICAL RONNY HRNA AGE SERV 5 YRS/> FOUNDATIO INCARCERA N KISHOR INITIAL 87991 [facility] 6 MEDICAL CHR CARE/DAY SERV 50 FOUNDATIO MINUTES N GROUND A0425 [facility] MILEAGE 6 AMBULANCE AMBULANCE PER SERVICE SERVICE STATUTE MILE AMBULANCE A0429 [facility] SERVICE 6 AMBULANCE AMBULANCE BLS SERVICE SERVICE EMERGENCY TRANSPORT BLOOD 96053 LUCY AYALA COUNT 6 [facility] COMPLETE INC INC AUTO&[place] [address] LUC[facility] AYALA LIPASE 6 [facility] INC INC CREATINE 54567 LUCY AYALA KINASE 6 [facility] [place] [address] LUCY AYALA TROPONIN 6 [facility] [place] [address] LUCY AYALA AMYLASE 6 [facility] INC INC CREATINE 64056 LUCY AYALA KINASE MB 6 [facility] FRACTION INC INC ONLY COMPREHEN 56442 LUC[facility] AYALA SIVE 6 [facility] METABOLIC INC INC PANEL INJECTION J2405 LUC[facility] AYALA 6 [facility] ONDANSETR INC INC ON HCL PER 1 MG INJ J2543 LUCY AYALA PIPERACIL 6 [facility] YONATHAN INC INC SOD/TAZOB ACTAM SOD 1 G/0.125 G ECG 22729 LUCY BEVERLY ROUTINE [address] [facility] W/LEAST P 12 LDS I&R ONLY RADIOLOGI 65810 [place] FONTANE[place] ALL C 6 MEDICAL EXAMINATI IMAGING [place] [address] LUCY AYALA INFUSION 6 [facility] THERAPY/P INC INC ROPHYLAXI S /DX 1ST TO 1 HR THER 71386 LUCY AYALA PROPH/DX 6 [facility] NJX EA INC INC SEQL IV PUSH SBST/[place] [address] [place] FONT[place] ALL ABDOMEN & 6 MEDICAL PELVIS IMAGING W/O ASS CONTRAST MATERIAL ECG 35090 LUCY LUCY ROUTINE 6 [facility] ECG INC INC W/LEAST 12 LDS TRCG ONLY W/O I&R BLOOD 63894 Darnell ROY JENNA COUNT 6 [facility] COMPLETE PSC AUTO&AUTO DIFRNTL WBC COLLECTIO 91937 Darnell WEST N VENOUS 6 PILAR PLEITEZ BLOOD PSC VENIPUNCT URE NEBULIZER E0570 MILDRED LEVY WITH 6 HOME HOME COMPRESSO MEDICAL MEDICAL R EQUIPME EQUIPME INITIAL [address]/DAY INTERNAL 70 MED MINUTES RADIOLOGI 58273 [place] FRANCESCA C 6 MEDICAL EMY EXAMINATI IMAGING ON CHEST ASS SINGLE VIEW FRONTAL ECG 74003 LUCY BEVERLY ROUTINE [address] [facility] W/LEAST P 12 LDS I&R ONLY NEBULIZER E0570 MILDRED LEVY WITH 6 HOME HOME COMPRESSO MEDICAL MEDICAL R EQUIPME EQUIPME COLLECTIO 42737 LUCY AYALA N VENOUS 6 [facility] BLOOD INC INC VENIPUNCT URE ADMN SET A7003 YOUR YOUR SM VOL 6 PHARMACY PHARMACY NONFILTR [facility] PNEUMAT NEBULIZR DISPBL COMPREHEN 50900 LUCY AYALA SIVE 6 [facility] METABOLIC INC INC PANEL BLOOD 61658 LUCY AYALA COUNT 6 [facility] COMPLETE INC INC AUTO&AUTO DIFRNTL WBC PHRM Q0513 YOUR YOUR DISPENSIN 6 PHARMACY PHARMACY G FEE [facility] INHALATIO N RX; PER 30 DAYS RADIOLOGI 66774 LUCY Wagner EXAM 6 [facility] CHEST 2 INC INC VIEWS FRONTAL&L ATERAL RADIOLOGI 93912 [place] FONT[place] ALL C 6 MEDICAL EXAMINATI IMAGING ON CHEST ASS SINGLE VIEW FRONTAL ALBUTEROL J7620 YOUR YOUR TO 2.5 6 PHARMACY PHARMACY [facility] [employer] LLC IPRATROPI UM BROM TO 0.5 MG NEBULIZER E0570 MILDRED LEVY WITH 6 HOME HOME COMPRESSO MEDICAL MEDICAL R EQUIPME EQUIPME NEBULIZER E0570 MILDRED LEVY WITH 6 HOME HOME COMPRESSO MEDICAL MEDICAL R EQUIPME EQUIPME PHRM Q0513 YOUR YOUR DISPENSIN 5 PHARMACY PHARMACY G FEE [facility] LLC INHALATIO N RX; PER 30 DAYS ALBUTEROL J7620 YOUR YOUR TO 2.5 5 PHARMACY PHARMACY MG & [facility] IPRATROPI UM BROM TO 0.5 MG RADIOLOGI 76371 [facility] ALL C EXAM 5 MEDICAL CHEST 2 IMAGING VIEWS ASS FRONTAL&L ATERAL CT THORAX 45780 [facility] ALL 5 MEDICAL W/CONTRAS IMAGING T ASS MATERIAL RADIOLOGI 58595 [facility] ALL C EXAM 5 MEDICAL CHEST 2 IMAGING VIEWS ASS FRONTAL&L ATERAL NEBULIZER E0570 MILDRED LEVY WITH 5 HOME HOME COMPRESSO MEDICAL MEDICAL R EQUIPME EQUIPME PHARM G0333 YOUR YOUR DISPEN 5 PHARMACY PHARMACY FEE [facility] [employer] [facility] RX; INITIAL 30-DAY SUPPLY ALBUTEROL J7620 YOUR YOUR TO 2.5 5 PHARMACY PHARMACY [facility] IPRATROPI UM BROM TO 0.5 MG CATARACT 63061 [facility] REMOVAL 5 JAMILAH JAMILAH INSERTION OF LENS CONTINUOU E0601 MILDRED LEVY S 5 HOME HOME POSITIVE MEDICAL MEDICAL AIRWAY EQUIPME EQUIPME PRESSURE DEVICE CONTINUOU E0601 MILDRED MILDRED S 5 HOME HOME POSITIVE MEDICAL MEDICAL AIRWAY EQUIPME EQUIPME PRESSURE DEVICE CONTINUOU E0601 MILDRED MILDRED S 5 HOME HOME POSITIVE MEDICAL MEDICAL AIRWAY EQUIPME EQUIPME PRESSURE DEVICE CONTINUOU E0601 MILDRED BARBERRELL S 5 HOME HOME POSITIVE MEDICAL MEDICAL AIRWAY EQUIPME EQUIPME PRESSURE DEVICE CONTINUOU E0601 MILDRED LEVY S 5 HOME HOME POSITIVE MEDICAL MEDICAL AIRWAY EQUIPME EQUIPME PRESSURE DEVICE CONTINUOU E0601 MILDRED LEVY S 4 HOME HOME POSITIVE MEDICAL MEDICAL AIRWAY EQUIPME EQUIPME PRESSURE DEVICE FULL FACE A7030 MILDRED MILDRED MASK 4 HOME HOME USED MEDICAL MEDICAL W/POS EQUIPME EQUIPME ARWAY PRESS DEVICE EA POLYSOM 41162 NEERAJ KERN MAR 6/>YRS 4 SLEEP 4/> NEUROSCIE ADDL NCES CENT AMA ATTND POLYSOM 65261 LUCY AYALA 6/>YRS 4 [facility] SLEEP 4/> [place] [address] LUCY AYALA SURG 4 [facility] PATHOLOGY INC INC GROSS&JESS ROSCOPIC EXAM IMC/IMC G0461 LUCY AYALA PER 4 [facility] SPECIMEN; INC INC 1ST SNGL/MPX ANTIBODY STN SPECIAL 00387 LUCY AYALA STAIN 4 [facility] GROUP 1 INC INC MICROORGA NISMS I&R SPCL STN 96423 LUCY YAALA 2 I&R 4 [facility] EXCPT INC INC MICROORG/ ENZYME/[place] [address] LUCY AYALA INFUSION 4 [facility] THERAPY INC INC PROPHYLAX [place] [address] LUCY AYALA INFUSION 4 [facility] THERAPY/P INC INC ROPHYLAXI S /DX 1ST TO 1 HR SPMTRY 21377 LUCY AYALA W/VC 4 [facility] EXPIRATOR INC INC Y ALFREDO W/WO MXML VOL VNTJ ECHO 77798 LUCY AYALA TTHRC R-T 4 [facility] 2D INC INC W/WOM-MOD E COMPL SPEC&COLR D CV STRS 88588 GLENN MORALES GLENN JR TST 4 DWI DWI XERS&/OR RX CONT ECG I&R ONLY MYOCARDIA 33672 LUCY AYALA L SPECT 4 [facility] MULTIPLE INC INC STUDIES MYOCARDIA 40193 TEX MA L 4 MEDICAL EMY PERFUSION IMAGING PLANAR ASS MULTIPLE STUDIES CV STRS 92236 KEITH MORENO TST 4 XERS&/OR RX CONT ECG W/O I&R RADIOLOGI 27431 [place] FRANCESCA C EXAM 4 MEDICAL EMY CHEST 2 IMAGING VIEWS ASS [...] SONE ACETATE & PHOSPHATE 3 MG RADIOLOGI 06909 LUCY AYALA C EXAM 3 [facility] CHEST 2 INC INC VIEWS FRONTAL&L ATERAL INJECTION J0690 ERIKA JAMES 3 DON DON CEFAZOLIN SODIUM 500 MG PRTBLE E0431 MILDRED MILDRED GASEOUS 3 HOME HOME O2 SYS MEDICAL MEDICAL RENT; EQUIPME EQUIPME FLWMTR HUMIDFR&M ASK PRTBLE E0431 MILDRED MILDRED GASEOUS 2 HOME HOME O2 SYS MEDICAL MEDICAL RENT; EQUIPME EQUIPME FLWMTR HUMIDFR&M ASK PRTBLE E0431 MILDRED MILDRED GASEOUS 2 HOME HOME O2 SYS MEDICAL MEDICAL RENT; EQUIPME EQUIPME FLWMTR HUMIDFR&M ASK CT THORAX 64713 [place] FRANCES[place] W/O 2 MEDICAL EMY CONTRAST IMAGING MATERIAL ASS 3D 98405 [place] FR[place] RENDERING 2 MEDICAL EMY IMAGING W/INTERP& ASS POSTPROC DIFF WORK STATION PRTBLE E0431 MILDRED MILDRED GASEOUS 2 HOME HOME O2 SYS MEDICAL MEDICAL RENT; EQUIPME EQUIPME FLWMTR HUMIDFR&M ASK TOBACCO 70461 ERIKA WHITLOCKHENS USE 2 DON DON CESSATION INTERMEDI ATE 3-10 MINUTES PRTBLE E0431 MILDRED MILDRED GASEOUS 2 HOME HOME O2 SYS MEDICAL MEDICAL RENT; EQUIPME EQUIPME FLWMTR HUMIDFR&M ASK PRTBLE E0431 MILDRED MILDRED GASEOUS 2 HOME HOME O2 SYS MEDICAL MEDICAL RENT; EQUIPME EQUIPME FLWMTR HUMIDFR&M ASK RADIOLOGI 37389 [place] FRANCESCA C EXAM 2 MEDICAL EMY CHEST 2 IMAGING VIEWS ASS FRONTAL&L ATERAL SPMTRY 00924 MARIS POLLOCK W/VC 2 JAM JAM EXPIRATOR Y ALFREDO W/WO MXML VOL VNTJ PRTBLE E0431 MILDRED MILDRED GASEOUS 2 HOME HOME O2 SYS MEDICAL MEDICAL RENT; EQUIPME EQUIPME FLWMTR [place]FR&[place] [address] LUCY AYALA IRON 2 [facility] INC INC CARBOXYHE 11294 LUCY AYALA MOGLOBIN 2 [facility] QUANTITAT INC INC ARECNIO BLOOD 46000 LUCY AYALA GASES ANY 2 [facility] INC INC COMBINATI ON PH PCO2 PO2 CO2 HCO3 GLUCOSE 97617 LUCY AYALA BODY 2 [facility] FLUID INC INC OTHER THAN BLOOD IRON 13563 LUCY AYALA BINDING 2 [facility] CAPACITY INC INC LACTATE 19971 LUCY AYALA DEHYDROGE 2 [facility] NASE LDH INC INC PROTEIN 46722 LUCY AYALA XCPT 2 [facility] REFRACTOM INC INC ETRY SERUM PLASMA/WH L BLD CYANOCOBA 96888 LUCY AYALA BETTIE 2 [facility] VITAMIN INC INC B-12 THORACENT 95992 LUCY AYALA ESIS 2 [facility] PUNCTURE INC INC PLEURAL CAVITY ASPIRATIO N COLLECTIO 66238 LUCY AYALA N VENOUS 2 [facility] BLOOD INC INC VENIPUNCT URE CYTP 81957 PATHOLOGY PATHOLOGY SLCTV 2 & & CELL CYTOLOGY CYTOLOGY ENHANCEME LAB LAB NT INTERPJ XCPT C/V NONINVASI 28363 LUCY AYALA VE 2 [facility] EAR/PULSE INC INC OXIMETRY SINGLE DETER TISS FRED 40158 LUCY LUCY SLIDE 2 [facility] SAMPS INC INC SKN/HR/NL S FNGI/ECTO PARASIT CUL BACT 77867 LUCY BOBON XCPT 2 [facility] URINE INC INC BLOOD/STO OL AEROBIC ISOL CULTURE 44466 LUCYJOAN AYALA BACTERIAL 2 [facility] ANY INC INC SOURCE ANAEROBIC ISO&ID CULTURE 82977 LUCY AYALA TUBERCLE/ 2 [facility] OTH INC INC ACID-FAST BACILLI ANY ISOL RADIOLOGI 03067 LUCY AYALA C EXAM 2 [facility] CHEST 2 INC INC VIEWS FRONTAL&L ATERAL CT THORAX 05241 LUCY AYALA W/O 2 [facility] CONTRAST INC INC MATERIAL CELL 45039 LUCY AYALA COUNT 2 [facility] MISC BODY INC INC FLUIDS W/DIFFERE NTIAL COUNT SMR PRIM 50348 LUCY LUCY SRC 2 [facility] GRAM/GIEM INC INC SA STAIN BCT FUNGI/[place] [address] LUCY AYALA GUIDANCE 2 [facility] NEEDLE INC INC PLACEMENT 3D 02365 [place] FRACNESCA RENDERING 2 MEDICAL EMY IMAGING W/INTERP& ASS POSTPROC DIFF WORK STATION ECG 57570 LUCY AYALA ROUTINE 2 [facility] ECG INC INC W/LEAST 12 LDS TRCG ONLY W/O I&R SPUTUM 30637 LUCY AYALA OBTAINING 2 [facility] SPEC INC INC AEROSOL INDUCED TX SPX ECG 07696 RUSH BEVERLY ROUTINE 2 JENNA JENNA ECG W/LEAST 12 LDS I&R ONLY CT THORAX 88411 LUCY AYALA W/O 2 [facility] CONTRAST INC INC MATERIAL PRTBLE E0431 MILDRED MILDRED GASEOUS 2 HOME HOME O2 SYS MEDICAL MEDICAL RENT; EQUIPME EQUIPME FLWMSR HUMIDFR&M ASK PRTBLE E0431 MILDRED MILDRED GASEOUS 2 HOME HOME O2 SYS MEDICAL MEDICAL RENT; EQUIPME EQUIPME FLWMTR HUMIDFR&M ASK SPMTRY 14516 LUCY AYALA W/VC 2 [facility] EXPIRATOR INC INC Y ALFREDO W/WO MXML VOL VNTJ PRTBLE E0431 MILDRED MILDRED GASEOUS 2 HOME HOME O2 SYS MEDICAL MEDICAL RENT; EQUIPME EQUIPME FLWMTR HUMIDFR&M ASK PRTBLE E0431 MILDRED BARBERRELL GASEOUS 2 HOME HOME O2 SYS MEDICAL MEDICAL RENT; EQUIPME EQUIPME FLWMTR HUMIDFR&M ASK RADIOLOGI 06948 ERIKA JAMES C EXAM 2 DON DON CHEST 2 VIEWS FRONTAL&L ATERAL CT THORAX 53811 [place] FRANCESCA 2 MEDICAL EMY W/CONTRAS IMAGING T ASS MATERIAL COMPREHEN 41495 COMBINED COMBINED SIVE 2 PHYSICIAN PHYSICIAN [place] [address] COMBINED COMBINED PROSTATE 2 PHYSICIAN PHYSICIAN SPECIFIC S LA S LA ANTIGEN TOTAL LIPID 47143 COMBINED COMBINED PANEL 2 PHYSICIAN PHYSICIAN S LA S LA BLOOD 54024 COMBINED COMBINED COUNT 2 PHYSICIAN PHYSICIAN COMPLETE S LA S LA AUTO&AUTO DIFRNTL WBC PRTBLE E0431 MILDRED LEVY GASEOUS 2 HOME HOME O2 SYS MEDICAL MEDICAL RENT; EQUIPME EQUIPME FLWMTR HUMIDFR&M ASK O2 CONC 1 E1390 MILDRED LEVY DEL PORT 2 HOME HOME 85%/>02 MEDICAL MEDICAL CONC AT EQUIPME EQUIPME PRSC FLW RATE O2 CONC 1 E1390 MILDRED LEVY [place] 1 HOME HOME 85%/>02 MEDICAL MEDICAL CONC AT EQUIPME EQUIPME PRSC FLW RATE PRTBLE E0431 MILDRED MILDRED GASEOUS 1 HOME HOME O2 SYS MEDICAL MEDICAL RENT; EQUIPME EQUIPME FLWMTR HUMIDFR&M ASK PRTBLE E0431 MILDRED MILDRED GASEOUS 1 HOME HOME O2 SYS MEDICAL MEDICAL RENT; EQUIPME EQUIPME FLWMTR HUMIDFR&M ASK O2 CONC 1 E1390 MILDRED LEVY [place] 1 HOME HOME 85%/>02 MEDICAL MEDICAL CONC AT EQUIPME EQUIPME PRSC FLW RATE O2 CONC 1 E1390 MILDRED [place] 1 HOME HOME 85%/>02 MEDICAL MEDICAL CONC AT EQUIPME EQUIPME [facility] FLW RATE PRTBLE E0431 MILDRED LEVY GASEOUS 1 HOME HOME O2 SYS MEDICAL MEDICAL RENT; [facility] ASK PRTBLE E0431 MILDRED LEVY GASEOUS 1 HOME HOME O2 SYS MEDICAL MEDICAL RENT; EQUIPME EQUIPME [facility] HUMIDFR&M ASK O2 CONC 1 E1390 MILDRED [place] 1 HOME HOME 85%/>02 MEDICAL MEDICAL CONC AT EQUIPME EQUIPME [facility] FLW RATE O2 CONC 1 E1390 MILDRED LUIS [facility] 1 HOME MED HOME MED 85%/>02 EQUIP. L EQUIP. L CONC AT [facility] FLW RATE PRTBLE E0431 MILDRED LEVY GASEOUS 1 HOME MED HOME MED O2 SYS EQUIP. L EQUIP. L RENT; [facility] HUMIDFR&M ASK PRTBLE E0431 MILDRED LEVY GASEOUS 1 HOME MED HOME MED O2 SYS EQUIP. L EQUIP. L RENT; [facility] HUMIDFR&M ASK O2 CONC 1 E1390 [place] 1 HOME MED HOME MED 85%/>02 EQUIP. L EQUIP. L CONC AT [facility] FLW RATE O2 CONC 1 E1390 MILDRED LUIS [facility] 1 HOME MED HOME MED 85%/>02 EQUIP. L EQUIP. L CONC AT [facility] FLW RATE PRTBLE E0431 MILDRED LEVY GASEOUS 1 HOME MED HOME MED O2 SYS EQUIP. L EQUIP. L RENT; [facility] HUMIDFR&M ASK PRTBLE E0431 MILDRED LEVY GASEOUS 1 HOME MED HOME MED O2 SYS EQUIP. L EQUIP. L RENT; [facility] HUMIDFR&M ASK O2 CONC 1 E1390 [place] 1 HOME MED HOME MED 85%/>02 EQUIP. L EQUIP. L CONC AT [facility] FLW RATE O2 CONC 1 E1390 MILDRED [place] 1 HOME MED HOME MED 85%/>02 EQUIP. L EQUIP. L CONC AT [facility] FLW RATE PRTBLE E0431 MILDRED LEVY GASEOUS 1 HOME MED HOME MED O2 SYS EQUIP. L EQUIP. L RENT; FLWMS[facility] HUMIDFR&M ASK PRTBLE E0431 MILDRED BARBERRELL GASEOUS 0 HOME MED HOME MED O2 SYS EQUIP. L EQUIP. L RENT; [facility] HUMIDFR&M ASK O2 CONC 1 E1390 [place] 0 HOME MED HOME MED 85%/>02 EQUIP. L EQUIP. L CONC AT [facility] FLW RATE O2 CONC 1 E1390 MILDRED [place] 0 HOME MED HOME MED 85%/>02 EQUIP. L EQUIP. L CONC AT [facility] FLW RATE PRTBLE E0431 MILDRED LEVY GASEOUS 0 HOME MED HOME MED O2 SYS EQUIP. L EQUIP. L RENT; [facility] HUMIDFR&M ASK PRTBLE E0431 MILDRED BARBERRELL GASEOUS 0 HOME MED HOME MED O2 SYS EQUIP. L EQUIP. L RENT; [facility] HUMIDFR&M ASK O2 CONC 1 E1390 MILDRED [place] 0 HOME MED HOME MED 85%/>02 EQUIP. L EQUIP. L CONC AT [facility] FLW RATE O2 CONC 1 E1390 MILDRED [place] 0 HOME MED HOME MED 85%/>02 EQUIP. L EQUIP. L CONC AT [facility] FLW RATE PRTBLE E0431 MILDRED LEVY GASEOUS 0 HOME MED HOME MED O2 SYS EQUIP. L EQUIP. L RENT; [facility] HUMIDFR&M ASK CULTURE 34804 [facility] FNGI 0 Y Y MOLD/[facility] T PRSMPTV OTH XCPT BLOOD BRONCHOSC 66165 [facility] 0 Y Y [facility] 1 LOBE BRONCHOSC 51637 [facility] 0 Y Y NEEDLE [facility] TRACHEA MAIN STEM&/BRO N SPECIAL 33562 [facility] STAIN 0 Y Y GROUP 1 [facility] MICROORGA NISMS I&R CYTP FINE 11438 [facility] NDL 0 Y Y ASPIRATE [facility] IMMT CYTOHIST STD DX 1ST CYTP EVAL 09372 [facility] FINE 0 Y Y NEEDLE [facility] ASPIRATE INTERP & REPORT BRNCHSC 70277 [facility] W/BRNCL 0 Y Y ALVEOLAR [facility] LAVAGE CONCENTRA 62421 [facility] TION 0 Y Y INFECTIOU [facility] S AGENTS VIRUS 17792 [facility] TISS CUL 0 Y Y INOCULATI [facility] ON CYTOPATHI C EFFECT IADNA NOS 19732 [facility] 0 Y Y AMPLIFIED [facility] PROBE TQ EACH ORGANISM CULTURE 33475 [facility] FUNGI 0 [facility] E ID EACH ORGANISM YEAST SMR PRIM 79398 [facility] SRC 0 Y Y GRAM/GIEM [facility] SA STAIN BCT FUNGI/VAHID L VIRUS 09996 [facility] CENTRIFUG 0 Y Y E ENHNCD [facility] ID IMFLUOR STAIN EA CELL 15120 [facility] COUNT 0 Y Y MISC BODY [facility] FLUIDS W/[place] [address] [facility] SURG 0 Y Y PATHOLOGY [facility] GROSS&JESS ROSCOPIC EXAM CUL BACT 53007 [facility] XCPT 0 Y Y URINE [facility] BLOOD/STO OL AEROBIC ISOL SMR PRIM 92741 [facility] SRC 0 Y Y FLUORESCE [facility] NT&/AFS BCT FNGI PARASIT TISS FRED 75258 [facility] SLIDE 0 Y Y [facility] SKN/HR/NL S FNGI/ECTO PARASIT CULTURE 73369 [facility] TUBERCLE/ 0 Y Y OTH [facility] ACID-FAST BACILLI ANY ISOL IAADI 47428 [facility] PNEUMOCUS 0 Y Y TIS [facility] CARINII INJECTION J2250 [facility] 0 Y Y MIDAZOLAM [facility] HCL PER 1 MG RADIOLOGI 35604 [facility] C 0 Y Y EXAMINATI [facility] ON CHEST SINGLE VIEW FRONTAL INJECTION J3010 [facility] FENTANYL 0 Y Y [facility] 0.1 MG O2 CONC 1 E1390 MILDRED LEVY [place] 0 HOME MED HOME MED 85%/>02 EQUIP. L EQUIP. L CONC AT [facility] FLW RATE PRTBLE E0431 MILDRED LEVY GASEOUS 0 HOME MED HOME MED O2 SYS EQUIP. L EQUIP. L RENT; FLWMTR HUMIDFR&M ASK PHLEBOTOM 64516 COMBINED COMBINED Y 0 PHYSICIAN PHYSICIAN THERAPEUT S LA S LA IC SEPARATE PROCEDURE RADEX 19444 [place] FRANC[facility] ESOPHAGUS 0 MEDICAL EMY IMAGING ASS DUP-SCAN 19784 [place] FRANC[facility] XTR VEINS 0 MEDICAL EMY COMPLETE IMAGING ASS BILATERAL STUDY COLLECTIO 18411 LUCY AYALA N VENOUS 0 [facility] BLOOD INC INC VENIPUNCT URE COMPREHEN 64303 LUCY AYALA SIVE 0 [facility] METABOLIC INC INC PANEL BLOOD 54063 LUCY AYALA COUNT 0 [facility] COMPLETE INC INC AUTO&AUTO DIFRNTL WBC PULMONARY 44751 [place] STRESS 0 MEDICAL JAM TESTING SERV SIMPLE FOUNDATIO BRNCDILAT 03637 LUCY AYALA RSPSE 0 [facility] SPMTRY INC INC PRE&POST- BRNCDILAT ADMN CT THORAX 87221 [place] NELLY W/O 0 MEDICAL KEY CONTRAST IMAGING MATERIAL ASS COMPREHEN 29514 COMBINED COMBINED SIVE 0 PHYSICIAN PHYSICIAN METABOLIC S LAB S LAB PANEL COLLECTIO 34544 COMBINED COMBINED N VENOUS 0 PHYSICIAN PHYSICIAN BLOOD S LAB S LAB VENIPUNCT URE 3D 68146 [place] NELLY RENDERING 0 MEDICAL KEY IMAGING W/INTERP& ASS POSTPROC DIFF WORK STATION RADIOLOGI 02175 [place] FRANCESCA C EXAM 0 MEDICAL EMY CHEST 2 IMAGING VIEWS ASS FRONTAL&L ATERAL O2 CONC 1 E1390 [facility] LEVY DEL PORT 0 HOME MED HOME MED 85%/>02 EQUIP. EQUIP. CONC AT [facility] FLW RATE PRTBLE E0431 [facility] BARBERRELL GASEOUS 0 HOME MED HOME MED O2 SYS EQUIP. EQUIP. RENT; [facility] FLWMTR HUMIDFR&M ASK PRTBLE E0431 [facility] GASEOUS 0 HOME MED HOME MED O2 SYS EQUIP. EQUIP. RENT; [facility] FLWMTR HUMIDFR&M ASK RADIOLOGI 62496 ERIKA JAMES C EXAM 0 DON R DON R CHEST 2 VIEWS FRONTAL&L ATERAL O2 CONC 1 E1390 [place] LEVY DEL PORT 0 HOME MED HOME MED 85%/>02 EQUIP. EQUIP. CONC AT [facility] FLW RATE ECG 33892 ERIKA JAMES, ROUTINE 0 DON R DON R ECG W/LEAST 12 LDS W/I&R INJECTION J1940 ERIKA JAMES, 0 DON R DON R FUROSEMID E UP TO 20 MG RADIOLOGI 89751 ERIKA JAMES 0 DON R DON R EXAMINATI ON CHEST [place] [facility] [address]96[address] ERIKA JAMES, DISCHARGE 0 DON R DON R DAY MANAGEMEN T 30 MIN/< [facility] [address] [facility] 0 DON R DON R CARE/DAY 25 MINUTES RADIOLOGI 68820 Kristy VALENTIN EXAM 0 MEDICAL JANE P CHEST 2 IMAGING VIEWS ASSOCIATE FRONTAL&L S ATERAL [facility] [address] [facility] 0 DON R DON R CARE/DAY 25 MINUTES [facility] [address] [facility] 0 DON R DON R CARE/DAY 25 MINUTES [facility] [address]165 [facility] 0 DON R DON R CARE/DAY [address] THORAX 89338 [place] FRANCESCA, 0 MEDICAL SHASHI W/CONTRAS IMAGING T ASSOCIATE MATERIAL S 3D 24998 [place] FRANCESCA, RENDERING 0 MEDICAL SHASHI IMAGING W/INTERP& ASSOCIATE POSTPROC S DIFF WORK STATION [facility] [address] [facility] 0 DON R DON R CARE/DAY 25 MINUTES INITIAL 88973 [facility] 0 DON R DON R CARE/DAY 50 MINUTES RADIOLOGI 45157 ERIKA JAMES 0 DON R DON R EXAMINATI ON CHEST [place] FRONTAL RADIOLOGI 88611 [place] Kristy MA EXAM 0 MEDICAL SHASHI CHEST 2 IMAGING VIEWS ASSOCIATE FRONTAL&L S ATERAL OPHTH 01807 RUIZ, KIT [facility] 9 DONTE A DONTE A XM&EVAL COMPRHNSV ESTAB PT 1/> SCANNING 35188 RETINA & NINI, OPHTHALMI 9 VITREOUS CALLIE W C IMAGING ASSOCIATE S O POSTERIOR SGM UNI OPHTH 42438 RETINA & NINI, MEDICAL 9 VITREOUS CALLIE W XM&EVAL ASSOCIATE INTERMEDI S O ATE ESTAB PT INJECTION J1040 ERIKA JAMES 8 DON R DON R METHYLPRE DNISOLONE ACETATE 80 MG SCANNING 45752 RETINA & NINI, OPHTHALMI 8 VITREOUS CALLIE W C IMAGING ASSOCIATE S O POSTERIOR SGM UNI OPHTH 43928 RETINA & NINI, MEDICAL 8 VITREOUS CALLIE W XM&EVAL ASSOCIATE INTERMEDI S O ATE ESTAB PT INJECTION J1040 ERIKA JAMES 8 DON R DON R METHYLPRE DNISOLONE ACETATE 80 MG [facility] 84546 [facility] DONTE A DONTE A XM&EVAL COMPRHNSV ESTAB PT 1/> SCANNING 03850 RETINA & NINI, OPHTHALMI 8 VITREOUS CALLIE W C IMAGING ASSOCIATE S O POSTERIOR SGM UNI OPHTH 80400 RETINA & NINI, MEDICAL 8 VITREOUS CALLIE W XM&EVAL ASSOCIATE INTERMEDI S O ATE ESTAB PT INJECTION J1040 ERIKA JAMES 8 DON R DON R METHYLPRE DNISOLONE ACETATE 80 MG RADIOLOGI 14466 ERIKA JAMES C EXAM 8 DON R DON R CHEST 2 VIEWS FRONTAL&L ATERAL SCANNING 31140 RETINA & RETINA & OPHTHALMI 8 VITREOUS VITREOUS C IMAGING ASSOCIATE ASSOCIATE S O S O POSTERIOR SGM UNI OPHTH 45387 RETINA & RETINA & MEDICAL 8 VITREOUS VITREOUS XM&EVAL ASSOCIATE ASSOCIATE INTERMEDI S O S O ATE ESTAB PT OPHTH 54961 RETINA & RETINA & MEDICAL 8 VITREOUS VITREOUS XM&EVAL ASSOCIATE ASSOCIATE INTERMEDI S O S O ATE ESTAB PT SCANNING 39131 RETINA & RETINA & OPHTHALMI 8 VITREOUS VITREOUS C IMAGING ASSOCIATE ASSOCIATE S O S O POSTERIOR SGM UNI INJECTION J1100 ERIKA JAMES, Adán RUTHERFORD R DON R DEXAMETHO SONE SODIUM PHOSPHATE 1 MG Encounters Encounter Start End Date Code Location Performer Type Date OFFICE [address] [facility] RHIANNON OUTGINO 7 7 PHYSICIAN T VISIT S GROUP 40 MINUTES OFFICE 70870 A Kristy VELASQUEZ 7 7 [facility]ES [facility] 7 Y OF CK T VISIT [place] 25 HOSPI MINUTES OFFICE 30897 Darnell [facility] OUTGINO 7 7 [facility]ES [facility] LUCY - 7 7 [facility] OFFICE 99973 Darnell [facility] OUTPATIRYLEE 7 7 PILAR [place] T VISIT [facility] 15 MINUTES OFFICE 64943 [facility] PO[facility]OCK OUTPATIEN 6 6 MEDICAL JAM T VISIT SERV 25 FOUNDATIO MINUTES [facility] - 6 6 [facility] T OFFICE [address] [facility] [place] OUTPATIEN 6 6 PHYSICIAN RITA T VISIT S GROUP 10 MINUTES [facility]OSP[facility] - 6 6 [facility] T OFFICE 12595 [facility] [place] [facility]PATI[facility] 6 6 [facility] 10 P MINUTES OFFICE 25496 [place] OUTPATIEN 6 6 MEDICAL JAM T VISIT SERV 15 FOUNDATIO MINUTES N OFFICE 21444 [facility] DICKEYIMONE OUTPATIEN [address] [facility] 20 HOSPITAL MINUTES P OFFICE [address] [facility] ALLRAN JR OUTPATIEN 6 6 PHYSICIAN RITA T VISIT S GROUP 15 MINUTES [facility]OSPITAL LUCY - 6 6 [facility] T OFFICE [address] [facility] ALLRAN JR OUTPATIEN 6 6 PHYSICIAN RITA T NEW 45 S GROUP MINUTES OFFICE 16635 [place] OUTPATIEN 6 6 MEDICAL JAM T VISIT SERV 25 FOUNDATIO MINUTES [facility] LUCY - 6 6 [facility] OUTPATIEN INC T OFFICE 93182 [place] OUTPATIEN 6 6 MEDICAL JAM T VISIT SERV 25 FOUNDATIO MINUTES HOSPITAL LUCY - 6 6 [facility] OUTPATIEN INC T EMERGENCY 73506 [facility] DEPT 6 6 Y OF MADALYN [facility]ISIT [facility] SEVER[facility]& [facility] OFFICE 16140 A Kristy WEST OUTPATIEN 6 6 PILAR PLEITEZ T VISIT PSC 15 MINUTES OFFICE 97018 A Kristy WEST OUTPATIEN 6 6 PILAR PLEITEZ T VISIT PSC 15 MINUTES OFFICE 23509 [place] OUTPATIEN 6 6 MEDICAL JAM T VISIT SERV 40 FOUNDATIO MINUTES N HOSPITAL LUCY - 6 6 [facility] INPATIENT INC OFFICE 95230 [place] OUTPATIEN 6 6 MEDICAL T VISIT SERV 25 FOUNDATIO MINUTES [facility] LUCY - 6 6 [facility] OUTPATIEN INC T OFFICE 58276 [place] OUTPATI[facility] 6 6 MEDICAL JAM T VISIT SERV 15 FOUNDATIO MINUTES [facility] LUCY - 5 5 [facility] LUCY - 5 5 [facility] LUCY - 5 5 [facility] OFFICE 12233 A C FIELD AMB OUTPATIEN 5 5 PILAR PLEITEZ T VISIT PSC 15 MINUTES OFFICE 95672 A C FIELD AMB OUTPATIEN 4 4 PILAR PLE[facility] T VISIT PSC 15 MINUTES [facility]OSP[facility] LUCY - 4 4 [facility] LUCY - 4 4 [facility] LUCY - 4 4 [facility] LUCY [facility] 4 4 [facility] LUCY - 4 4 [facility] LUCY - 4 4 [facility] LUCY - 4 4 [facility] OFFICE 27765 FIELD AMB FIELD AMB OUTPATIEN 4 4 T VISIT 15 MINUTES OFFICE 37577 FIELD AMB FIELD AMB OUTPATIEN 3 3 T VISIT 15 MINUTES OFFICE 75292 A C FIELD AMB OUTPATIEN 3 3 PILAR PLEITEZ T NEW 30 PSC MINUTES OFFICE 01423 ERIKA MELENDREZS OUTPATIEN 3 3 DON DON T VISIT 15 MINUTES [facility]OSP[facility] LUCY - 3 3 [facility] OFFICE 37558 ERIKA WHITLOCKHENS OUTPATIEN 3 3 DON DON T VISIT 15 MINUTES [facility]OSPITAL LUCY - 2 2 [facility] OFFICE 47803 ERIKA MELENDREZS OUTPATIEN 2 2 DON DON T VISIT 15 MINUTES HOSPITAL LUCY - 2 2 [facility]PATI[facility] LUCY - 2 2 [facility] LUC[facility] 2 2 [facility] LUCY - 2 2 [facility] OFFICE 21860 ERIKA MELENDREZS OUTPATIEN 2 2 DON DON T VISIT 15 MINUTES OFFICE 95744 ERIKA WHITLOCKHENS OUTPATIEN 1 1 DON DON T VISIT 15 MINUTES OFFICE 61472 ERIKA WHITLOCKHENS OUTPATIEN 1 1 DON DON T VISIT 15 MINUTES OFFICE 11036 ERIKA WHITLOCKHENS OUTPATIEN 1 1 DON DON T VISIT 15 MINUTES OFFICE 25200 ERIKA JAMES OUTPATIEN 1 1 DON DON T VISIT 15 MINUTES HOSPITAL UNIVERSIT - 0 0 [facility] LUCY - 0 0 [facility] - 0 0 [facility] 0 0 [facility] LUCY - 0 0 [facility] OFFICE 16653 ERIKA JAMES, OUTPATIEN 0 0 DON R DON R T VISIT 15 MINUTES OFFICE 68125 ERIKA JAMES OUTPATIEN 0 0 DON R DON R T VISIT 25 MINUTES OFFICE 89308 ERIKA JAMES OUTPATIEN 0 0 DON R DON R T VISIT 15 MINUTES OFFICE 92730 JAMESERIKA OUTPATIEN 8 8 DON R DON R T VISIT 15 MINUTES OFFICE 43006 ERIKA JAMES OUTPATIEN 8 8 DON R DON R T VISIT 15 MINUTES OFFICE 54774 ERIKA JAMES OUTPATIEN 8 8 DON R DON R T VISIT 15 MINUTES OFFICE 78358 ERIKA JAMES OUTPATIEN 8 8 DON R DON R T VISIT 15 MINUTES OFFICE 63770 ERIKA JAMES OUTPATIEN 8 8 DON R DON R T VISIT 15 MINUTES
--- OUTSIDE RECORDS SUMMARY | 2016-10-24 15:09 | External Medical Summary Rpt ---
Author Author , Organization [employer] Address Unknown Phone Unavailable Care Team Providers Care Substance Abuse Nurse Name Role Phone A Kristy QUEZADA MD [...] Unavailable [facility] Un[facility] Unavailable [facility], [facility] Unavailable Unavailable SERVICE, [facility] Unavailable Unavailable [place], [...] Unavailable TAYLOR KEYANA, TAYLOR Unavailable Unavailable KEYANA [facility] Unavailable Unavailable INC, [facility] Unavailable Unavailable [facility]OSPITAL P, [facility] DONTE RUIZ A, Unavailable Unavailable DONTE RUIZ [facility], Unavailable Unavailable [facility] ARMENDARIZ JENNA, ARMENDARIZ JENNA Unavailable Unavailable HUI MIKHAIL, HUI MIKHAIL Unavailable Unavailable BECKY NIXON, BECKY Unavailable Unavailable [facility], [facility] NINI, CALLIE W, Unavailable Unavailable NINI, CALLIE W [facility] Un[facility] Un[facility] GLENN JR, GLENN JR Unavailable Unavailable GLENN JR DWI, GLENN Unavailable Unavailable JR DWI [facility] Unavailable Unavailable INTERNAL MED, [facility] JAMES CON, JAMES CON Unavailable [...] PHARM #[id number] [facility] Unavailable Unavailable [id number] # [id number], [facility] [id number] # [id number] SHANELL CAR, Unavailable Unavailable SHANELL [...] JANENE PALMA, JANENE Unavailable Unavailable PALMA JANENE BERGMAN, JANENE Unavailable Unavailable OTTO BOOTH Unavailable Unavailable [facility], Unavailable [facility]available [facility] HIEU FRANCO, HIEU Unavailable Unavailable [facility], Unavailable [facility], Unavailable Unavailable [facility] ZAGUROVSKAYA MAR, Unavailable Unavailable ZAGUROVSKAYA MAR Purpose Continuity of Care Document - 04-25-2007 through 2016 Problems Code Diagnosis DOS Provider Status 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 09-11-2016 [facility] E785 HYPERLIPIDE 09-04-2016 [facility] UNSPECIFIED GROUP I119 HYPERTENSIV 09-04-2016 [facility] E HEART PHYSICIANS DISEASE GROUP WITHOUT HEART FAILURE 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 FASCICULAR GROUP BLOCK J410 SIMPLE 09-04-2016 A Kristy GARLAND MD PSC BRONCHITIS J449 CHRONIC 09-04-2016 [facility] OBSTRUCTIVE PHYSICIANS PULMONARY GROUP DISEASE UNS R0600 DYSPNEA 09-04-2016 [facility] UNSPECIFIED PHYSICIANS GROUP R938 ABNORMAL 09-04-2016 [facility] FIND ON DX PHYSICIANS IMAGING OT GROUP SPEC BODY STRCT I200 UNSTABLE 08-27-2016 [facility] ANGINA PHYSICIANS GROUP I10 ESSENTIAL 08-25-2016 [facility] P N F28006 ASHD [place] 08-25-2016 [facility] P ANGINA PECTORIS I272 OTHER 08-25-2016 [facility] P HYPERTENSIO N R0602 SHORTNESS 08-25-2016 [place] [facility] R079 CHEST PAIN 08-25-2016 [facility] I4891 UNSPECIFIED 07-03-2016 [...] MD PSC FIBRILLATIO N C9110 CHRONIC 01-11-2016 [facility] 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 R634 ABNORMAL 01-11-2016 [facility] INC R1110 VOMITING 01-09-2016 [facility] UNSPECIFIED PHYSICIANS GROUP K828 OTHER 01-02-2016 [facility] SPEC[facility] DISEASES OF IMAGING ASS GALLBLADDER R630 ANOREXIA 01-02-2016 [facility] K921 MELENA 11-07-2015 [facility] K5710 DIVERTICULO 11-03-2015 [place] S[facility] SM MEDICAL INTEST W/O IMAGING ASS PERF/ABSC W/O BLEED R195 OTHER FECAL 11-03-2015 [facility] ABNORMALITI IMAGING ASS ES S01680 LYMPHOCYTOS 10-26-2015 MOLECULAR IS PATHOLOGY SYMPTOMATIC LAB NETW J690 PNEUMONITIS 10-26-2015 [facility] DUE TO SERV INHALATION [facility]OUNDATION OF FOOD AND VOMIT B370 CANDIDAL 10-19-2015 [facility] STOMATITIS SERV [facility] R112 NAUSEA WITH 10-19-2015 [facility] VOMITING SERV UNSPECIFIED FOUNDATION I509 HEART 10-15-2015 [facility] FAILURE HOME UNSPECIFIED MEDICAL EQUIPME R531 WEAKNESS 09-20-2015 [facility] 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 [facility] R BLOCK SERV FOUND[facility] R9431 ABNORMAL 09-18-2015 [facility] ELECTROCARD SERV IOGRAM FOUNDATION I4510 UNSPECIFIED 09-15-2015 [facility] RIGHT SERV BUNDLE-BRAN FOUNDATION CH BLOCK R001 BRADYCARDIA 09-15-2015 [facility] UNSPECIFIED FOUNDATION B965 PSEUDOMONAS 09-14-2015 [facility] CAUSE OF SERV DZ [facility] CLASSIFIED ELSEWHERE J9600 ACUTE 09-14-2015 [facility] RESPIRATORY SERV FAIL UNS FOUNDATION HYPOXIA/HYP ERCAPNIA J9811 ATELECTASIS 09-14-2015 [facility] D66326 ENCOUNTER 09-14-2015 [facility] SURG SERV AFTERCARE F[facility] FLW SURG DIGESTIVE SYS Z049 ENCOUNTER 09-13-2015 [facility] EXAMINATION SERV &OBSERVATIO FOUNDATION N FOR UNS REASON K5900 CONSTIPATIO 09-12-2015 [facility] N SERV UNSPECIFIED FOUNDATION R140 ABDOMINAL 09-10-2015 [facility] DISTENSION SERV GASEOUS FOUNDATION R0989 OTH SPEC SX 09-09-2015 [facility] & SIGNS SERV INVLV THE FOUNDATION CIRC & RESP SYS R918 OTHER 09-09-2015 [facility] NONSPECIFIC SERV ABNORMAL FOUNDATION FINDING OF LUNG FIELD A419 SEPSIS 09-08-2015 [facility] UNSPECIFIED SERV ORGANISM FOUNDATION E873 ALKALOSIS 09-08-2015 [facility] E876 HYPOKALEMIA 09-08-2015 [facility] J90 PLEURAL 09-08-2015 [facility] EFFUSION SERV NOT FOUNDATION ELSEWHERE CLASSIFIED J9620 ACUTE 09-08-2015 [facility] CHRONIC SERV RESP FAIL FOUNDATION UNS HYPOXIA/HYP ERCAPNIA J984 OTHER 09-08-2015 [facility] DISORDERS SERV OF LUNG FOUNDATION R109 UNSPECIFIED 09-08-2015 [facility] ABDOMINAL SERV PAIN FOUNDATION Z4682 ENCOUNTER 09-08-2015 [facility] ADJUST HOSPI NON-VASCULA R CATHETER 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 SERV UNSPECIFIED FOUNDATION I517 CARDIOMEGAL 09-07-2015 [facility] Y SERV [facility] I5189 OTHER 09-07-2015 [facility] ILL-DEFINED SERV HEART FOUNDATION DISEASES R0902 HYPOXEMIA 09-06-2015 [facility] R0689 OTHER 09-02-2015 [facility] ABNORMALITI SERV ES OF FOUNDATION BREATHING J942 HEMOTHORAX 08-30-2015 [facility] J948 OTHER 08-30-2015 [facility] SPECIFIED SERV PLEURAL FOUNDATION CONDITIONS L538 OTHER 08-30-2015 [facility] SPECIFIED SERV ERYTHEMATOU FOUNDATION S CONDITIONS Z9889 OTHER 08-30-2015 [place] [facility] SPECIFIED SERV POSTPROCEDU FOUNDATION RAL STATES 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 K4030 UNILAT 08-25-2015 [facility] INGUINAL [facility] NGUYEN W/OBST HOSPI W/O GANGRN NOT RECUR K4040 UNILAT 08-25-2015 [facility] INGUINAL SERV NGUYEN FOUNDATION W/GANGREN NOT SPEC RECUR Z7901 REGISTERED ART THERAPIST 08-25-2015 [facility] CURRENT USE SERV OF FOUNDATION ANTICOAGULA NTS Y97410 ELEVATED 08-24-2015 [facility] P UNSPECIFIED K4090 UNILAT 08-24-2015 [place] [facility] INGUINAL SERV NGUYEN W/O FOUNDATION OBST/GANGRE N NOT RECUR K5660 UNSPECIFIED 08-24-2015 [facility] INTESTINAL AMBULANCE SERVICE OBSTRUCTION R1031 RIGHT LOWER 08-24-2015 [facility] QU[facility]RANT [facility] PAIN HOSPI 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 J189 PNEUMONIA 08-03-2015 [place] UNSPECIFIED MEDICAL ORGANISM IMAGING ASS J439 EMPHYSEMA 08-03-2015 [place] UNSPECIFIED [place] INTERNAL MED J929 PLEURAL 08-03-2015 [place] [facility] WITHOUT IMAGING ASS ASBESTOS R002 PALPITATION 08-03-2015 [place] [facility] S SERV [facility] R031 NONSPECIFIC 08-03-2015 [place] [facility] LOW SERV BLOOD-PRESS [facility] URE READING R42 DIZZINESS 08-03-2015 [place] [facility] AND SERV GIDDINESS [facility] 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 08-03-2015 [place] SUPPLEMENTA INTERNAL L OXYGEN MED J42 UNSPECIFIED 07-13-2015 [place] CHRONIC MEDICAL BRONCHITIS IMAGING ASS Z7722 CONTACT W/ 07-13-2015 [place] [facility] & SUSPECTED SERV EXPOS [facility] ENVIR TOBACCO SMOKE J40 BRONCHITIS 03-25-2015 [place] NOT MEDICAL SPECIFIED IMAGING ASS ACUTE OR CHRONIC R091 PLEURISY 01-21-2015 [facility] 4280 CONGESTIVE 01-14-2015 [facility] HE[facility] HOME FAILURE MEDICAL UNSPECIFIED EQUIPME 06465 OBSTRUCTIVE 01-14-2015 [facility] WITHOUT EXACERBAT 496 CHRONIC 01-14-[address] [facility] [address] HOME OBSTRUCTION MEDICAL NEC EQUIPME 63878 NUCLEAR 12-28-2014 [facility] SCLEROSIS JAMILAH 16145 OBST 09-06-2014 A Kristy QUEZADA CHRONIC PSC BRONCHITIS W/ACUTE BRONCHITIS 45187 LOSS OF 09-06-2014 A Kristy QUEZADA WEIGHT PSC 49515 OTHER CHEST 09-06-2014 A Kristy QUEZADA PAIN PSC 06090 OBSTRUCTIVE 09-05-2014 [facility] SLEEP HOME APNEA MEDICAL EQUIPME 7242 LUMBAGO 04-01-2014 A Kristy QUEZADA MD PSC V0382 NEED PROPH 04-01-2014 A Kristy QUEZADA VACCINATION PSC AGAINST STREP PNEUMONE 40634 ATRIAL 01-13-2014 [facility] FIBRILLATIO [facility] N INC 78963 REFLUX 01-13-2014 [facility] ESOPHAGITIS [facility] INC 90713 UNS 01-13-2014 [facility] GASTRITIS&G [facility] ASTRODUODIT INC IS W/O MENTION HEMORR 13068 ABDOMINAL 01-13-2014 [facility] PAIN, MEM [facility] GENERALIZED INC V5869 LONG-TERM 01-13-2014 [facility] (CURRENT) [facility] USE OF INC OTHER MEDICATIONS 22602 CHEST PAIN 11-24-2013 [facility] UNSPECIFIED [facility] INC 5110 PLEURISY 10-29-2013 [place] WITHOUT MEDICAL MENTION IMAGING ASS EFFUS/CURRE NT TB 7862 COUGH 10-29-2013 [facility] 53475 INSOMNIA 12-16-2012 A Kristy ANDREAIFIED PSC 84328 OTHER 12-16-2012 Darnell QUEZADA MALAISE AND PSC FATIGUE 79296 FEVER 05-23-2012 J[facility] UNSPECIFIED DON 38071 WHEEZING 05-23-2012 J[facility] DON 1120 CANDIDIASIS 05-21-2012 J[facility] OF MOUTH DON 01610 OTHER 05-21-2012 FRANC[facility]CA DISEASES OF EMY LUNG NOT ELSEWHERE CLASSIFIED 4940 BRONCHIECTA 01-28-2012 [place] SIS WITHOUT MEDICAL ACUTE IMAGING ASS EXACERBATIO N 5119 UNSPECIFIED 01-28-2012 [place] PLEURAL MEDICAL EFFUSION IMAGING ASS 44077 OTHER 01-28-2012 [facility] NONSPECIFIC [facility] ABNORMAL INC FINDING OF LUNG FIELD 13541 OSTEOARTHRO 01-02-2012 JAMES S INVLV MX DON SITES [place] 97949 OBSTRUCTIVE 11-12-2011 [facility] CHRONIC [facility] BRONCHITIS INC WITH EXACERBATIO N 63176 ESOPHAGEAL 11-12-2011 [facility] REFLUX [facility] INC 2859 UNSPECIFIED 10-05-2011 [facility] ANEMIA [facility] INC 5180 PULMONARY 10-05-2011 [place] [facility]LL[facility]SE [facility] 486 PNEUMONIA, 09-28-2011 [place] ORGANISM MEDICAL UNSPECIFIED IMAGING ASS 5070 PNEUMONITIS 09-28-2011 [place] DUE TO JAM INHALATION OF FOOD OR VOMITUS 91070 SHORTNESS 09-28-2011 [facility] OF BREATH [facility] INC 25105 ABDOMINAL 09-28-2011 [facility] PAIN, MEM [facility]OS[facility] EPIGASTRIC INC V1261 PERSONAL 09-28-2011 [place] HISTORY JAM PNEUMONIA RECURRENT 20302 PNEUMONIA 06-08-2011 J[facility] DUE TO DON OTHER SPECIFIED BACTERIA 2724 OTHER AND 05-11-2011 [facility] UNSPECIFIED PHYSICIANS [place] HYPERLIPIDE [place] 2768 HYPOPOTASSE 05-11-2011 [facility] [place] PHYSICIANS [place] 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 6019 UNSPECIFIED 05-11-2011 [place] [address] PAIN IN 05-11-2011 COMBINED JOINT, PHYSICIANS MULTIPLE LA SITES 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 5183 PULMONARY 11-28-2009 [facility] A 51951 ACUTE 11-28-2009 [place] [facility] RESPIRATORY SERV FAILURE FOUNDATIO 7856 ENLARGEMENT 11-28-2009 [facility] NODES 7931 NONSPEC 11-28-2009 [place] [facility] FIND RAD SERV OTH EXAM [facility]ATIO BODY STRUCT LUNG FIELD V1582 PERS HX 11-28-2009 [facility] V7282 PRE-OPERATI 11-28-2009 [place] [facility] VE SERV RESPIRATORY [facility]ATIO EXAMINATION 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 26781 DYSPHAGIA 11-18-2009 [place] UNSPECIFIED MEDICAL IMAGING ASS 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, 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, ATORY DON R PULMONARY FIBROSIS 21319 OSTEOARTHRO 08-23-2009 JAMES, SIS UNSPEC DON R WHETHER GEN/LOC LOWER LEG 19822 OSTEOARTHRO 08-23-2009 ERIKA, S UNSPEC DON R GEN/LOC OTH SPEC SITES 31568 MACULAR 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 RUIZ A N OF RETINA UNSPECIFIED 54103 NONEXUDATIV 07-20-2008 RET[facility] & 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 05802 EXUDATIVE 07-20-2008 [facility] & SENILE [facility] DEGENERATIO O N OF RETINA 55057 CRYSTALLINE 07-20-2008 [place] & DEPOSITS VITREOUS IN VITREOUS ASSOCIATES O 4610 ACUTE 02-27-2008 JAMES, MAXILLARY DON R SINUSITIS 4659 ACUTE URIS 02-27-2008 ERIKA, OF DON R UNSPECIFIED SITE 8472 LUMBAR 11-14-2007 JAMES, SPRAIN AND DON R STRAIN 4660 ACUTE 08-02-2007 JAMES, BRONCHITIS DON R 4871 INFLUENZA 07-04-2007 ERIKA, WITH OTHER DON R RESPIRATORY MANIFESTATI ONS 64870 PAIN IN 04-25-2007 JAMES, JOINT, DON R SHOULDER REGION 18690 UNSPECIFIED 04-25-2007 JAMES, SYNOVITIS DON R AND [...] ET 03 93 8 # 03 93 SD 00 04 04 00 12 6 RI [...] YOUR YOUR SM VOL 7 PHARMACY PHARMACY [facility] [employer] [facility] PNEUMAT NEBULIZR DISPBL ALBUTEROL J7620 YOUR YOUR TO 2.5 7 PHARMACY PHARMACY & [employer] [facility] IPRATROPI UM BROM TO 0.5 MG ALBUTEROL J7620 A C A C TO 2.5 7 PILAR QUEZADA MD MG & PSC PSC IPRATROPI UM BROM TO 0.5 MG ECG 09181 [facility] ROUTINE 7 PHYSICIAN ECG S GROUP W/LEAST 12 LDS I&R ONLY R & L HRT 62018 [facility] CATH 7 PHYSICIAN WINJX HRT S GROUP ART& L VENTR IMG RADIOLOGI 09174 [place] [facility] 7 MEDICAL EXAMINATI IMAGING ON CHEST ASS SINGLE VIEW FRONTAL ECG 97285 [facility] ELIZABETH JR ROUTINE 7 [facility] W/LEAST P 12 LDS I&R ONLY ADMN SET A7003 YOUR YOUR SM VOL 7 PHARMACY PHARMACY [employer] PNEUMAT NEBULIZR DISPBL ALBUTEROL J7620 YOUR YOUR TO 2.5 7 PHARMACY PHARMACY [employer] IPRATROPI UM BROM TO 0.5 MG O2 CONC 1 E1390 [facility] [place] 7 HOME HOME 85%/>02 MEDICAL MEDICAL CONC AT EQUIPME EQUIPME PRSC FLW RATE O2 CONC 1 E1390 [facility] [place] 7 HOME HOME 85%/>02 MEDICAL MEDICAL CONC AT EQUIPME EQUIPME PRSC [place]W [place] RADIOLOGI 28118 [facility] C EXAM 7 MEDICAL MEDICAL CHEST 2 IMAGING IMAGING VIEWS ASS ASS FRONTAL&L ATERAL O2 CONC 1 E1390 [facility] [place] 7 HOME HOME 85%/>02 MEDICAL MEDICAL CONC AT EQUIPME EQUIPME PRSC FLW RATE O2 CONC 1 E1390 [facility] [place] 6 HOME HOME 85%/>02 MEDICAL MEDICAL CONC AT EQUIPME EQUIPME PRSC FLW RATE O2 CONC 1 E1390 [facility] HOME HOME 85%/>02 MEDICAL MEDICAL CONC AT EQUIPME EQUIPME PRSC FLW RATE PHRM Q0513 YOUR YOUR DISPENSIN 6 PHARMACY PHARMACY [employer] INHALATIO N RX; PER 30 DAYS ADMN SET A7003 YOUR YOUR SM VOL 6 PHARMACY PHARMACY [employer] PNEUMAT NEBULIZR DISPBL ALBUTEROL J7620 YOUR YOUR TO 2.5 6 PHARMACY PHARMACY [employer] IPRATROPI UM BROM TO 0.5 MG O2 CONC 1 E1390 [facility] 6 HOME HOME 85%/>02 MEDICAL MEDICAL CONC AT EQUIPME [facility]QU[facility]ME [facility] G0463 [facility] AYALA OUTPATIEN 6 [facility] T CLIN INC INC VISIT ASSESS & MGMT PT O2 CONC 1 E1390 [facility] [place] 6 HOME HOME 85%/>02 MEDICAL MEDICAL CONC [place] [address] [facility] A[facility] ABDOMEN 6 [facility] W/CONTRAS INC INC T MATERIAL LOCM Q9967 L[facility] AYALA [phone] 6 [facility] MG/ML INC INC IODINE CONCENTRA TION PER ML COLLECTIO 82010 [facility] N VENOUS 6 [facility] BLOOD INC INC VENIPUNCT URE COMPREHEN 93284 [facility] SIVE 6 [facility]OS[facility] METABOLIC INC INC PANEL BLOOD 57505 [facility] AYAL[facility] COUNT 6 [facility] COMPLETE INC INC AUTO&AUTO DIFRNTL WBC ANES 13779 [facility] UPPER GI 6 ANESTH [place] ENDOSCOPY OF THE PROXIMAL BLUE TO DUODENUM O2 CONC 1 E1390 [facility] [place] 6 HOME HOME 85%/>02 MEDICAL MEDICAL CONC AT EQUIPME EQUIPME PRS FLW RATE RADEX 25502 TEX FONTANEZ ALL UPPER GI 6 MEDICAL W/WO IMAGING GLUCAGON/ ASS DELAY IMGES W/O KUB O2 CONC 1 E1390 [facility] [place] 6 HOME MAR 85%/>02 MEDICAL CONC AT EQUIPME [facility] FLW RATE RADEX 59538 LUCY AYALA UPPER GI 6 [facility] W/WO INC INC GLUCAGON/ DELAY IMAGES W/KUB FLOW 25872 LUC[facility] AYALA CYTOMETRY 6 [facility] CELL INC INC SURF MARKER TECHL ONLY 1ST FLOW 14451 MOLECULAR MOLECULAR CYTOMETRY 6 [facility] PATHOLOGY PATHOLOGY 2-8 LAB NETW LAB NETW MARKERS FLOW 70641 [facility] AYALA CYTOMETRY 6 [facility]OS[facility] CELL INC INC SURF MARKER TECHL ONLY EA COLLECTIO 73681 [facility] A[facility]ALA N VENOUS 6 [facility] BLOOD INC INC VENIPUNCT URE NEBULIZER E0570 [facility] LEVY WITH 6 HOME HOME COMPRESSO MEDICAL MEDICAL R EQUIPME EQUIPME O2 CONC 1 E1390 [facility] [place] 6 HOME KEY 85%/>02 MEDICAL CONC AT EQUIPME [facility] FLW RATE SEAT E0156 [facility] ATTACHMEN 6 T WALKER WALKER E0143 [facility] FOLDING 6 WHEELED ADJUSTABL E/FIXED HEIGHT ECG 07697 [place] [facility] ROUTINE 6 MEDICAL ECG SERV W/LEAST FOUNDATIO 12 LDS N I&R ONLY ECG [address] [place] [facility] ROUTINE 6 MEDICAL NAN ECG SERV W/LEAST FOUNDATIO 12 LDS N I&R ONLY RADIOLOGI 76822 [place] [facility] CON C 6 MEDICAL EXAMINATI SERV ON CHEST FOUNDATIO S[place] N [place] FRONTAL SBSQ 04192 [place] [facility] 6 MEDICAL KEYANA CARE/DAY SERV 25 FOUNDATIO MINUTES N SBSQ 62282 [facility] 6 MEDICAL KEYANA CARE/DAY SERV 15 FOUNDATIO MINUTES N RADIOLOGI 53084 [place] [facility] 6 MEDICAL AYA MAR EXAMINATI SERV ON CHEST FOUNDATIO SINGLE N VIEW FRONTAL RADIOLOGI 32975 [place] [facility] C 6 MEDICAL EXAMINATI SERV ON CHEST FOUNDATIO SINGLE N [place] FRONTAL SBSQ 48044 [place] [facility] 6 MEDICAL KEYANA CARE/DAY SERV 15 FOUNDATIO MINUTES N SBSQ 34747 [place] [facility] 6 MEDICAL CARE/DAY SERV 25 FOUNDATIO MINUTES N RADIOLOGI 83748 [place] [facility] C 6 MEDICAL EXAMINATI SERV ON CHEST FOUNDATIO SINGLE N [place]IEW FRONTAL RADIOLOGI 69052 [place] [facility] C 6 MEDICAL EXAMINATI SERV ON CHEST FOUNDATIO SINGLE N VIEW FRONTAL ECG 25276 [place] [facility] ROUTINE 6 MEDICAL ECG SERV W/LEAST FOUNDATIO 12 LDS N I&R ONLY SBSQ 60846 [place] [facility] 6 MEDICAL CARE/DAY SERV 25 FOUNDATIO MINUTES N RADEX 78468 [place] [facility] ABDOMEN 1 6 MEDICAL SUSAN SERV ANTEROPOS FOUNDATIO TERIOR N VIEW CRITICAL 46415 [place] [facility] CARE 6 MEDICAL ILL/INJUR SERV ED FOUNDATIO PATIENT N INIT 30-74 MIN RADEX 66425 [facility] SHANELL ABDOMEN 1 6 Y OF CAR [place] [facility] TERIOR VIEW ECG 78591 [place] [facility] ROUTINE 6 MEDICAL ECG SERV W/LEAST FOUNDATIO 12 LDS N I&R ONLY RADIOLOGI 60974 [place] [facility] LEATHA C 6 MEDICAL EXAMINATI SERV ON CHEST FOUNDATIO SINGLE N VIEW FRONTAL RADIOLOGI 46203 [place] [facility] C 6 MEDICAL AYA MAR EXAMINATI SERV ON CHEST FOUNDATIO SINGLE N VIEW FRONTAL SBSQ 30902 [facility] 6 MEDICAL CARE/DAY SERV [address] [place] [address] [place] REYE[facility] CLEO ABDOMEN & 6 MEDICAL PELVIS SERV W/CONTRAS FOUNDATIO T N MATERIAL RADEX 19757 [facility] ABDOMEN 1 6 Y OF CAR [place] [facility]TEROP[facility] [place] THORAX [address] [place] CON 6 MEDICAL W/CONTRAS SERV T FOUNDATIO MATERIAL N RADEX ABD 27744 [place] [facility] COMPL 6 MEDICAL JURGEN AQT ABD SERV ANNEL W/S/E/D FOUNDATIO VIEWS 1 N VIEW CH INITIAL [address] [place] [address] MEDICAL SUN KAYODE CARE/DAY SERV 30 FOUNDATIO MINUTES N ECG 40714 [facility] ROUTINE 6 MEDICAL ECG SERV W/LEAST FOUNDATIO 12 LDS N I&R ONLY SBSQ 10608 [place] [address] MEDICAL AND CARE/DAY SERV 25 FOUNDATIO MINUTES N RADIOLOGI 78732 [place] [facility] CON C 6 MEDICAL EXAMINATI SERV ON CHEST FOUNDATIO SINGLE [place] FRONTAL ECHO 87327 [place] [facility] TTHRC R-T 6 MEDICAL ERIKA 2D SERV W/WOM-MOD FOUNDATIO E COMPL N SPEC&COLR D SBSQ 22811 [place] [address] MEDICAL AND CARE/DAY SERV 25 FOUNDATIO MINUTES N RADIOLOGI 23319 [place] [facility] CON C 6 MEDICAL EXAMINATI SERV ON CHEST FOUNDATIO SINGLE N [place] FRONTAL RADIOLOGI 51778 [place] CON C 6 MEDICAL EXAMINATI SERV ON CHEST FOUNDATIO SINGLE N VIEW FRONTAL ECG 30604 [facility] ROUTINE 6 MEDICAL ECG SERV W/LEAST FOUNDATIO 12 LDS N I&R ONLY RADIOLOGI 88018 [place] LUKEROVSK C 6 MEDICAL AYA MAR EXAMINATI SERV ON CHEST FOUNDATIO SINGLE N VIEW FRONTAL RADEX 72357 [facility] SHANE[facility] ABDOMEN 1 6 Y OF CAR [place] ANTEROPOS HOSPI TERIOR [place]IEW RADEX 44667 [place] LUKEROGALLITOK ABDOMEN 1 6 MEDICAL AYA MAR SERV ANTEROPOS FOUNDATIO TERIOR N VIEW RADIOLOGI 74527 [place] [facility] C 6 MEDICAL JESS EXAMINATI SERV ON CHEST FOUNDATIO SINGLE N [place] FRONTAL RADIOLOGI 11056 [place] LUKEROGALLIT[facility] C 6 MEDICAL AYA MAR EXAMINATI SERV ON CHE[place] [address] [place] AYOOB AND ABDOMEN & 6 MEDICAL PELVIS SERV W/CONTRAS FOUNDATIO T N MATERIAL RADEX 16434 [facility] SHANE[facility] ABDOMEN 1 6 Y OF CAR [place] [facility] [place] THORAX 52420 [place] ARMENDARIZ JENNA 6 MEDICAL W/CONTRAS SERV T FOUNDATIO MATERIAL N RADEX 58673 UNIVERSIT SHANELL ABDOMEN 1 6 Y OF CAR [place] [facility] TERIOR VIEW SBSQ 27403 [facility] 6 MEDICAL AND CARE/DAY SERV 25 FOUNDATIO MINUTES N RADIOLOGI 35069 [place] DELL CAR C 6 MEDICAL EXAMINATI SERV ON CHEST FOUNDATIO SINGLE N VIEW FRONTAL SBSQ 39215 [facility] 6 MEDICAL AND CARE/DAY SERV 25 FOUNDATIO MINUTES N RADIOLOGI 39363 [place] JAMES CON C 6 MEDICAL EXAMINATI SERV ON CHEST FOUNDATIO SINGLE N VIEW FRONTAL ECG 42027 [place] PELAEZ ROUTINE 6 MEDICAL NAN ECG SERV W/LEAST FOUNDATIO 12 LDS N I&R ONLY ECG 54032 [place] HUI MIKHAIL ROUTINE 6 MEDICAL ECG SERV W/LEAST FOUNDATIO 12 LDS [place] [address] [place] HIEU SURG 6 MEDICAL FRANCO PATHOLOGY SERV FOUNDATIO GROSS&JESS N ROSCOPIC EXAM LEVEL III 28407 [place] HIEU SUR[place] 6 MEDICAL FRANCO PATHOLOGY SERV FOUNDATIO GROSS&JESS N ROSCOPIC EXAM SBSQ 81092 [facility] 6 MEDICAL RONNY CARE/DAY SERV 25 FOUNDATIO MINUTES N ARTL 39758 [facility] CATHJ/CAN 6 Y OF Y OF NULJ [facility] SFUSION SPX PRQ ANESTHESI 56610 [facility] BET A HERNIA 6 Y OF REPAIR [facility] A[facility] NOS RPR 1ST 82710 [facility] 6 MEDICAL RONNY HRNA AGE SERV 5 YRS/> FOUNDATIO INCARCERA N KISHOR INITIAL 34928 [facility] 6 MEDICAL CHR CARE/DAY SERV 50 FOUNDATIO MINUTES N GROUND A0425 [facility] MILEAGE 6 AMBULANCE AMBULANCE PER SERVICE SERVICE STATUTE MILE AMBULANCE A0429 [facility] SERVICE 6 AMBULANCE AMBULANCE BLS SERVICE SERVICE EMERGENCY TRANSPORT BLOOD 86218 [facility] COUNT 6 [facility] COMPLETE INC INC AUTO&[place] [address] [facility] LIPASE 6 [facility] INC INC CREATINE 11572 [facility] KINASE 6 [facility] [place] [address] [facility] TROPONIN 6 [facility] [address] [facility] AMYLASE 6 [facility] INC INC CREATINE 56745 [facility] KINASE MB 6 [facility] FRACTION INC INC ONLY COMPREHEN 56814 [facility] SIVE 6 [facility] METABOLIC INC INC PANEL INJECTION J2405 [facility] ONDANSETR INC INC ON HCL PER 1 MG INJ J2543 [facility] PIPERACIL 6 [facility] YONATHAN INC INC SOD/TAZOB ACTAM SOD 1 G/0.125 G ECG 61607 [facility] BEVERLY ROUTINE 6 [facility] W/LEAST P 12 LDS I&R ONLY RADIOLOGI 35447 [place] FONTANE[facility] ALL C 6 MEDICAL EXAMINATI [place]AGING [place] [address] [facility] INFUSION 6 [facility] THERAPY/P INC INC ROPHYLAXI S /DX 1ST TO 1 HR THER 93316 [facility] PROPH/DX 6 [facility] NJX EA INC INC SEQL IV PUSH SBST/[place] [address] [place] ALL ABDOMEN & 6 MEDICAL PELVIS IMAGING W/O ASS CONTRAST MATERIAL ECG 83812 LUCY LUCY ROUTINE 6 [facility] ECG INC INC W/LEAST 12 LDS TRCG ONLY W/O I&R BLOOD 54006 Darnell ROY JENNA COUNT 6 [place] P[place] COMPLETE PSC AUTO&AUTO DIFRNTL WBC COLLECTIO 92404 Darnell WEST N VENOUS 6 [place] BLOOD PSC VENIPUNCT URE NEBULIZER E0570 MILDRED LEVY WITH 6 HOME HOME COMPRESSO MEDICAL MEDICAL R EQUIPME EQUIPME INITIAL [address]/DAY INTERNAL 70 MED MINUTES RADIOLOGI 29568 [place]ANC[place] C 6 MEDICAL EMY EXAMINATI IMAGING ON CHEST ASS SINGLE VIEW FRONTAL ECG 73077 LUCY BEVERLY ROUTINE 6 [facility] W/LEAST P 12 LDS I&R ONLY NEBULIZER E0570 MILDRED LEVY WITH 6 HOME HOME COMPRESSO MEDICAL MEDICAL R EQUIPME EQUIPME COLLECTIO 04083 LUCY AYALA N VENOUS 6 [facility] BLOOD INC INC VENIPUNCT URE ADMN SET A7003 YOUR YOUR SM VOL 6 PHARMACY PHARMACY NONFILTR [employer] PNEUMAT NEBULIZR DISPBL COMPREHEN 24919 LUCY AYALA SIVE 6 [facility] METABOLIC INC INC PANEL BLOOD 69669 LUCY AYALA COUNT 6 [facility] COMPLETE INC INC AUTO&AUTO DIFRNTL WBC PHRM Q0513 YOUR YOUR DISPENSIN 6 PHARMACY PHARMACY G FEE [employer] INHALATIO N RX; PER 30 DAYS RADIOLOGI 56300 LUCY Wagner EXAM 6 [facility] CHEST 2 INC INC VIEWS FRONTAL&L ATERAL RADIOLOGI 39818 [place]ONT[place] ALL C 6 MEDICAL EXAMINATI IMAGING [...] TO 2.5 5 PHARMACY PHARMACY [employer] IPRATROPI UM BROM TO 0.5 MG RADIOLOGI 57693 [facility] ALL C EXAM 5 MEDICAL CHEST 2 IMAGING VIEWS ASS FRONTAL&L ATERAL CT THORAX 54545 [facility] ALL 5 MEDICAL W/CONTRAS IMAGING T ASS MATERIAL RADIOLOGI 12978 [facility] ALL C EXAM 5 MEDICAL CHEST 2 IMAGING VIEWS ASS FRONTAL&L ATERAL NEBULIZER E0570 MILDRED LEVY WITH 5 HOME HOME COMPRESSO MEDICAL MEDICAL R EQUIPME EQUIPME PHARM [id number] YOUR YOUR DISPEN 5 PHARMACY PHARMACY F[employer] RX; INITIAL 30-DAY SUPPLY ALBUTEROL J7620 YOUR YOUR TO 2.5 5 PHARMACY PHARMACY [employer] IPRATROPI UM BROM TO 0.5 MG CATARACT 64375 [facility] REMOVAL 5 JAMILAH JAMILAH INSERTION OF LENS [...] EQUIPME EQUIPME ARWAY PRESS DEVICE EA POLYSOM 53743 NEERAJ KERN MAR 6/>YRS 4 SLEEP 4/> NEUROSCIE ADDL NCES CENT AMA ATTND POLYSOM 76976 LUCY AYALA 6/>YRS 4 [facility] SLEEP 4/> [place] [address] LUCY AYALA SURG 4 [facility] PATHOLOGY INC INC GROSS&JESS ROSCOPIC EXAM IMC/IMC G0461 LUCY AYALA PER 4 [facility] SPECIMEN; INC INC 1ST SNGL/MPX ANTIBODY STN SPECIAL 41143 ULCY AYALA STAIN 4 [facility] GROUP 1 INC INC MICROORGA NISMS I&R SPCL STN 66536 LUCY AYALA 2 I&R 4 [facility] EXCPT INC INC MICROORG/ ENZYME/[place] [address] LUCY AYALA INFUSION 4 [facility] THERAPY INC INC PROPHYLAX IS/[place] [address] LUCY AYALA INFUSION 4 [facility] THERAPY/P INC INC ROPHYLAXI S /DX 1ST TO 1 HR SPMTRY 76366 LUCY AYALA W/VC 4 [facility] EXPIRATOR INC INC Y ALFREDO W/WO MXML VOL VNTJ ECHO 71499 LUCY AYALA TTHRC R-T 4 [facility] 2D INC INC W/WOM-MOD E COMPL SPEC&COLR D CV STRS 27906 GLENN MORALES GLENN JR TST 4 DWI DWI XERS&/OR RX CONT ECG I&R ONLY MYOCARDIA 46225 LUCY AYALA L SPECT 4 [facility] MULTIPLE INC INC STUDIES MYOCARDIA 24815 [place] MA L 4 MEDICAL EMY PERFUSION IMAGING PLANAR ASS MULTIPLE STUDIES CV STRS 08632 KEITH MORENO TST 4 XERS&/OR RX CONT ECG W/O I&R RADIOLOGI 83366 [place] FR[place] C EXAM 4 MEDICAL EMY [...] SONE ACETATE & PHOSPHATE 3 MG RADIOLOGI 63595 LUCY AYALA C EXAM 3 [facility] [...] EQUIPME EQUIPME FLWMTR HUMIDFR&M ASK CT THORAX 08092 [place] W/O 2 MEDICAL EMY CONTRAST IMAGING MATERIAL ASS 3D 25742 [place] RENDERING 2 MEDICAL EMY IMAGING W/INTERP& ASS POSTPROC DIFF WORK STATION PRTBLE E0431 MILDRED MILDRED GASEOUS 2 HOME HOME O2 SYS MEDICAL MEDICAL RENT; EQUIPME EQUIPME FLWMTR HUMIDFR&M ASK TOBACCO 20383 ERIKA WHITLOCKHENS USE 2 DON DON CESSATION INTERMEDI ATE 3-10 MINUTES PRTBLE E0431 MILDRED MILDRED GASEOUS 2 HOME HOME O2 SYS MEDICAL MEDICAL RENT; EQUIPME EQUIPME FLWMTR HUMIDFR&M ASK PRTBLE E0431 MILDRED MILDRED GASEOUS 2 HOME HOME O2 SYS MEDICAL MEDICAL RENT; EQUIPME EQUIPME FLWMTR HUMIDFR&M ASK RADIOLOGI 13304 [place] C EXAM 2 MEDICAL EMY CHEST 2 IMAGING VIEWS ASS FRONTAL&L ATERAL SPMTRY 74044 MARIS POLLOCK W/VC 2 JAM JAM EXPIRATOR Y ALFREDO W/WO MXML VOL VNTJ PRTBLE E0431 MILDRED MILDRED GASEOUS 2 HOME HOME O2 SYS MEDICAL MEDICAL RENT; EQUIPME EQUIPME FLWMTR [place]FR&[place] [address] LUCY AYALA IRON 2 [facility] INC INC CARBOXYHE 83583 LUCY AYALA MOGLOBIN 2 [facility] QUANTITAT INC INC ARCENIO BLOOD 68114 LUCY AYALA GASES ANY 2 [facility] INC INC COMBINATI ON PH PCO2 PO2 CO2 HCO3 GLUCOSE 80140 LUCY AYALA BODY 2 [facility] FLUID INC INC OTHER THAN BLOOD IRON 23324 LUCY AYALA BINDING 2 [facility] CAPACITY INC INC LACTATE 99974 LUCY AYALA DEHYDROGE 2 [facility] NASE LDH INC INC PROTEIN 46131 LUCY AYALA XCPT 2 [facility] REFRACTOM INC INC ETRY SERUM PLASMA/WH L BLD CYANOCOBA 24372 LUCY AYALA BETTIE 2 [facility] VITAMIN INC INC B-12 THORACENT 26680 LUCY AYALA ESIS 2 [facility] PUNCTURE INC INC PLEURAL CAVITY ASPIRATIO N COLLECTIO 36252 LUCY AYALA N VENOUS 2 [facility] BLOOD INC INC VENIPUNCT URE CYTP 07590 PATHOLOGY PATHOLOGY SLCTV 2 & & CELL CYTOLOGY CYTOLOGY ENHANCEME LAB LAB NT INTERPJ XCPT C/V NONINVASI 06815 LUCY AYALA VE 2 [facility] EAR/PULSE INC INC OXIMETRY SINGLE DETER TISS FRED 98576 LUCY LUCY SLIDE 2 [facility] SAMPS INC INC SKN/HR/NL S FNGI/ECTO PARASIT CUL BACT 57263 LUCY BOBON XCPT 2 [facility] URINE INC INC BLOOD/STO OL AEROBIC ISOL CULTURE 37400 LUCYJOAN AYALA BACTERIAL 2 [facility] ANY INC INC SOURCE ANAEROBIC ISO&ID CULTURE 71301 LUCY AYALA TUBERCLE/ 2 [facility] OTH INC INC ACID-FAST BACILLI ANY ISOL RADIOLOGI 14188 LUCY AYALA C EXAM 2 [facility] CHEST 2 INC INC VIEWS FRONTAL&L ATERAL CT THORAX 17269 LUCY AYALA W/O 2 [facility] CONTRAST INC INC MATERIAL CELL 67420 LUCY AYALA COUNT 2 [facility] BODY INC INC FLUIDS W/DIFFERE NTIAL COUNT SMR PRIM 88131 LUCY LUCY SRC 2 [facility] GRAM/GIEM INC INC SA STAIN BCT FUNGI/[place] [address] LUCY AYALA GUIDANCE 2 [facility] NEEDLE INC INC PLACEMENT 3D 18941 [place] RENDERING 2 MEDICAL EMY IMAGING W/INTERP& ASS POSTPROC DIFF WORK STATION ECG 53590 LUCY AYALA ROUTINE 2 [facility] ECG INC INC W/LEAST 12 LDS TRCG ONLY W/O I&R SPUTUM 30764 LUCY AYALA OBTAINING 2 [facility] SPEC INC INC AEROSOL INDUCED TX SPX ECG 05682 [place] BEVERLY ROUTINE 2 JENNA JENNA ECG W/LEAST 12 LDS I&R ONLY CT THORAX 71684 LUCY AYALA W/O 2 [facility] CONTRAST INC INC MATERIAL PRTBLE E0431 MILDRED MILDRED GASEOUS 2 HOME HOME O2 SYS MEDICAL MEDICAL RENT; EQUIPME EQUIPME FLWMIR HUMIDFR&M ASK PRTBLE E0431 MILDRED MILDRED GASEOUS 2 HOME HOME O2 SYS MEDICAL MEDICAL RENT; EQUIPME EQUIPME FLWMTR HUMIDFR&M ASK SPMTRY 79904 LUCY AYALA W/VC 2 [facility] EXPIRATOR INC INC Y ALFREDO W/WO MXML VOL VNTJ PRTBLE E0431 MILDRED MILDRED GASEOUS 2 HOME HOME O2 SYS MEDICAL MEDICAL RENT; EQUIPME EQUIPME FLWMTR HUMIDFR&M ASK PRTBLE E0431 MILDRED BARBERRELL GASEOUS 2 HOME HOME O2 SYS MEDICAL MEDICAL RENT; EQUIPME EQUIPME FLWMTR HUMIDFR&M ASK RADIOLOGI 20452 ERIKA JAMES C EXAM 2 DON DON CHEST 2 VIEWS FRONTAL&L ATERAL CT THORAX 89157 [place] 2 MEDICAL EMY W/CONTRAS IMAGING T ASS MATERIAL COMPREHEN 71310 COMBINED COMBINED SIVE 2 PHYSICIAN PHYSICIAN [place] [address] COMBINED COMBINED PROSTATE 2 PHYSICIAN PHYSICIAN SPECIFIC S LA S LA ANTIGEN TOTAL LIPID 68891 COMBINED COMBINED PANEL 2 PHYSICIAN PHYSICIAN S LA S LA BLOOD 89892 COMBINED COMBINED COUNT 2 PHYSICIAN PHYSICIAN COMPLETE [...] 85%/>02 MEDICAL MEDICAL CONC AT EQUIPME EQUIPME [facility] FLW RATE PRTBLE E0431 MILDRED LEVY GASEOUS 1 HOME HOME O2 SYS MEDICAL MEDICAL RENT; EQUIP[facility] H[facility]&M ASK PRTBLE E0431 MILDRED LEVY GASEOUS 1 HOME HOME O2 SYS MEDICAL MEDICAL RENT; [facility] HUMID[facility]&M ASK O2 CONC 1 E1390 [place] 1 HOME HOME 85%/>02 MEDICAL MEDICAL CONC AT EQUIPME EQUIPME [facility] FLW RATE O2 CONC 1 E1390 MILDRED [place] [facility] 1 HOME MED HOME MED 85%/>02 EQUIP. L EQUIP. L CONC AT [facility] FLW RATE PRTBLE E0431 MILDRED LEVY GASEOUS 1 HOME MED HOME MED O2 SYS EQUIP. L EQUIP. L RENT; [facility] HUMIDFR&M ASK PRTBLE E0431 MILDRED LEVY GASEOUS 1 HOME MED HOME MED O2 SYS EQUIP. L EQUIP. L RENT; [facility] HUMIDFR&M ASK O2 CONC 1 E1390 [place] 1 HOME MED HOME MED 85%/>02 EQUIP. L EQUIP. L CONC AT [facility] FLW RATE O2 CONC 1 E1390 MILDRED [place] [facility] 1 HOME MED HOME MED 85%/>02 EQUIP. L EQUIP. L CONC AT [facility] FLW RATE PRTBLE E0431 MILDRED LEVY GASEOUS 1 HOME MED HOME MED O2 SYS EQUIP. L [facility]QUIP. L [facility] H[facility] ASK PRTBLE E0431 MILDRED LEVY GASEOUS 1 HOME MED HOME MED O2 SYS EQUIP. L EQUIP. L RENT; [facility] HUMIDFR&M ASK O2 CONC 1 E1390 [place] 1 HOME MED HOME MED 85%/>02 EQUIP. L EQUIP. L CONC AT [facility] FLW RATE O2 CONC 1 E1390 [place] 1 HOME MED HOME MED 85%/>02 EQUIP. L EQUIP. L CONC AT [facility] FLW RATE PRTBLE E0431 MILDRED LEVY GASEOUS 1 HOME MED HOME MED O2 SYS EQUIP. L EQUIP. L RENT; [facility] HUMIDFR&M ASK PRTBLE E0431 MILDRED BARBERRE[place] GASEOUS 0 HOME MED HOME MED O2 SYS EQUIP. L EQUIP. L RENT; [facility] HUMIDFR&M ASK O2 CONC 1 E1390 [place] 0 HOME MED HOME MED 85%/>02 EQUIP. L EQUIP. L CONC AT [facility] FLW RATE O2 CONC 1 E1390 [place] 0 HOME MED HOME MED 85%/>02 EQUIP. L EQUIP. L CONC AT [facility] FLW RATE PRTBLE E0431 MILDRED LEVY GASEOUS 0 HOME MED HOME MED O2 SYS EQUIP. L EQUIP. L RENT; [facility] HUMIDFR&M ASK PRTBLE E0431 MILDRED [place] GASEOUS 0 HOME MED HOME MED O2 SYS EQUIP. L EQUIP. L RENT; [facility] HUMIDFR&M ASK O2 CONC 1 E1390 [place] 0 HOME MED HOME MED 85%/>02 EQUIP. L EQUIP. L CONC AT [facility] FLW RATE O2 CONC 1 E1390 [place] 0 HOME MED HOME MED 85%/>02 EQUIP. L EQUIP. L CONC AT [facility] FLW RATE PRTBLE E0431 MILDRED LEVY GASEOUS 0 HOME MED HOME MED O2 SYS EQUIP. L EQUIP. L RENT; [facility] HUMIDFR&M ASK CULTURE 01025 [facility] FNGI 0 Y Y MOLD/[facility] T PRSMPTV OTH XCPT BLOOD BRONCHOSC 34116 [facility] [place] 0 Y Y [facility] L[facility] 1 LOBE BRONCHOSC 37220 [facility] [place] 0 Y Y NEEDLE [facility] [place] [facility] TRACHEA MAIN STEM&/BRO N SPECIAL 80636 [facility] STAIN 0 Y Y GROUP 1 [facility] MICROORGA NISMS I&R CYTP FINE 01927 [facility] NDL 0 Y Y ASPIRATE [facility] IMMT CYTOHIST STD DX 1ST CYTP EVAL 59186 [facility] FINE 0 Y Y NEEDLE [facility] ASPIRATE INTERP & REPORT BRNCHSC 42748 [facility] W/BRNCL 0 Y Y ALVEOLAR [facility] LAVAGE CONCENTRA 99840 [facility] TION 0 Y Y INFECTIOU [facility] S AGENTS VIRUS 48216 [facility] TISS CUL 0 Y Y INOCULATI [facility] ON CYTOPATHI C EFFECT IADNA NOS 78526 [facility] 0 Y Y AMPLIFIED [facility] PROBE TQ EACH ORGANISM CULTURE 27091 [facility] FUNGI [facility] E ID EACH ORGANISM YEAST SMR PRIM 06195 [facility] SRC 0 Y Y GRAM/GIEM [facility] SA STAIN BCT FUNGI/VAHID L VIRUS 66215 [facility] CENTRIFUG 0 Y Y E ENHNCD [facility] ID IMFLUOR STAIN EA CELL 56375 [facility] COUNT 0 Y Y MISC BODY [facility] FLUIDS W/[place] [address] [facility] SURG 0 Y Y PATHOLOGY [facility] GROSS&JESS ROSCOPIC EXAM CUL BACT 16130 [facility] XCPT 0 Y Y URINE [facility] BLOOD/STO OL AEROBIC ISOL SMR PRIM 29070 [facility] SRC 0 Y Y FLUORESCE [facility] NT&/AFS BCT FNGI PARASIT TISS FRED 13577 [facility] SLIDE 0 Y Y [facility] SKN/HR/NL S FNGI/ECTO PARASIT CULTURE 44891 [facility] TUBERCLE/ 0 Y Y OTH [facility] ACID-FAST BACILLI ANY ISOL IAADI 17263 [facility] PNEUMOCUS 0 Y Y TIS [facility] CARINII INJECTION J2250 [facility] 0 Y Y MIDAZOLAM [facility] HCL PER 1 MG RADIOLOGI 64987 [facility] C 0 Y Y EXAMINATI [facility] ON CHEST [place] FRONTAL INJECTION J3010 [facility] FENTANYL 0 Y Y [facility] 0.1 MG O2 CONC 1 E1390 [place] 0 HOME MED HOME MED 85%/>02 EQUIP. L EQUIP. L CONC AT [facility] FLW RATE PRTBLE E0431 MILDRED LEVY GASEOUS 0 HOME MED HOME MED O2 SYS EQUIP. L EQUIP. L RENT; FL[facility] HUMIDFR&M ASK PHLEBOTOM 49522 COMBINED COMBINED Y 0 PHYSICIAN PHYSICIAN THERAPEUT S LA S LA IC SEPARATE PROCEDURE RADEX 83074 [place] ESOPHAGUS 0 MEDICAL EMY IMAGING ASS DUP-SCAN 25832 [place] XTR VEINS 0 MEDICAL EMY COMPLETE IMAGING ASS BILATERAL STUDY COLLECTIO 64896 LUCY AYALA N VENOUS 0 [facility] BLOOD INC INC VENIPUNCT URE COMPREHEN 76516 LUCY AYALA SIVE 0 [facility] METABOLIC INC INC PANEL BLOOD 66420 LUC[facility] AYALA COUNT 0 [facility] COMPLETE INC INC AUTO&AUTO DIFRNTL WBC PULMONARY 21447 [place] PO[place] STRESS 0 MEDICAL JAM TESTING SERV SIMPLE FOUNDATIO BRNCDILAT 43320 LUCY AYALA RSPSE 0 [facility] SPMTRY INC INC PRE&POST- BRNCDILAT ADMN CT THORAX 59424 [place] NELLY W/O [address] MEDICAL [address] CONTRAST IMAGING MATERIAL ASS COMPREHEN 30381 COMBINED COMBINED SIVE 0 PHYSICIAN PHYSICIAN METABOLIC S LAB S LAB PANEL COLLECTIO 25679 COMBINED COMBINED N VENOUS 0 PHYSICIAN PHYSICIAN BLOOD S LAB S LAB VENIPUNCT URE 3D 05116 [place] NE[place] RENDERING 0 MEDICAL KEY IMAGING W/INTERP& ASS POSTPROC DIFF WORK STATION RADIOLOGI 93199 [place] C EXAM 0 MEDICAL EMY CHEST 2 IMAGING VIEWS ASS FRONTAL&L ATERAL O2 CONC 1 E1390 [place] 0 HOME MED HOME MED 85%/>02 EQUIP. EQUIP. CONC AT [facility] FLW RATE PRTBLE E0431 MILDRED BARBERRELL GASEOUS 0 HOME MED HOME MED O2 SYS EQUIP. EQUIP. RENT; [facility] FLWMTR HUMIDFR&M ASK PRTBLE E0431 MILDRED MILDRED GASEOUS 0 HOME MED HOME MED O2 SYS EQUIP. EQUIP. RENT; [facility] FLWMTR HUMIDFR&M ASK RADIOLOGI 76893 ERIKA JAMES C EXAM 0 DON R DON R CHEST 2 VIEWS FRONTAL&L ATERAL O2 CONC 1 E1390 [place] 0 HOME MED HOME MED 85%/>02 EQUIP. EQUIP. CONC AT [facility] FLW RATE ECG 38077 ERIKA JAMES, ROUTINE 0 DON R DON R ECG W/LEAST 12 LDS W/I&R INJECTION J1940 ERIKA JAMES, 0 DON R DON R FUROSEMID E UP TO 20 MG RADIOLOGI 23483 ERIKA JAMES 0 DON R DON R EXAMINATI ON CHEST [facility] [facility] 68690 ERIKA JAMES, DISCHARGE 0 DON R DON R DAY MANAGEMEN T 30 MIN/< [facility] 63364 [facility] 0 DON R DON R CARE/DAY 25 MINUTES RADIOLOGI 15387 Kristy VALENTIN EXAM 0 MEDICAL JANE P CHEST 2 IMAGING VIEWS ASSOCIATE FRONTAL&L S ATERAL [facility] 33485 [facility] 0 DON R DON R CARE/DAY 25 MINUTES [facility] 37077 [facility] 0 DON R DON R CARE/DAY 25 MINUTES [facility] 64098 [facility] 0 DON R DON R CARE/DAY [address] THORAX 65293 [place], 0 MEDICAL SHASHI W/CONTRAS IMAGING T ASSOCIATE MATERIAL S 3D 68039 [place], RENDERING 0 MEDICAL SHASHI IMAGING W/INTERP& ASSOCIATE POSTPROC S DIFF WORK STATION [facility] 29235 [facility] 0 DON R DON R CARE/DAY 25 MINUTES INITIAL 05093 [facility] 0 DON R DON R CARE/DAY 50 MINUTES RADIOLOGI 89911 ERIKA JAMES 0 DON R DON R EXAMINATI ON CHEST SINGLE VIEW FRONTAL RADIOLOGI 92028 [place] Kristy MA EXAM 0 MEDICAL SHASHI CHEST 2 IMAGING VIEWS ASSOCIATE FRONTAL&L S ATERAL OPHTH 43684 RUIZ, [facility] 9 DONTE A DONTE A XM&EVAL COMPRHNSV ESTAB PT 1/> SCANNING 69089 RETINA & NINI, OPHTHALMI 9 VITREOUS CALLIE W C IMAGING ASSOCIATE S O POSTERIOR SGM UNI OPHTH 78247 RETINA & NINI, MEDICAL 9 VITREOUS CALLIE W XM&EVAL ASSOCIATE INTERMEDI S O ATE ESTAB PT INJECTION J1040 ERIKA JAMES 8 DON R DON R METHYLPRE DNISOLONE ACETATE 80 MG SCANNING 14413 RETINA & NINI, OPHTHALMI 8 VITREOUS CALLIE W C IMAGING ASSOCIATE S O POSTERIOR SGM UNI OPHTH 39858 RETINA & NINI, MEDICAL 8 VITREOUS CALLIE W XM&EVAL ASSOCIATE INTERMEDI S O ATE ESTAB PT INJECTION J1040 ERIKA JAMES 8 DON R DON R METHYLPRE DNISOLONE ACETATE 80 MG OPHTH 42323 [facility] 8 DONTE A DONTE A XM&EVAL COMPRHNSV ESTAB PT 1/> SCANNING 89983 RETINA & NINI, OPHTHALMI 8 VITREOUS CALLIE W C IMAGING ASSOCIATE S O POSTERIOR SGM UNI OPHTH 45884 RETINA & NINI, MEDICAL 8 VITREOUS CALLIE W XM&EVAL ASSOCIATE INTERMEDI S O ATE ESTAB PT INJECTION J1040 ERIKA JAMES 8 DON R DON R METHYLPRE DNISOLONE ACETATE 80 MG RADIOLOGI 72538 ERIKA JAMES C EXAM 8 DON R DON R CHEST 2 VIEWS FRONTAL&L ATERAL SCANNING 98795 RETINA & RETINA & OPHTHALMI 8 VITREOUS VITREOUS C IMAGING ASSOCIATE ASSOCIATE S O S O POSTERIOR SGM UNI OPHTH 38100 RETINA & RETINA & MEDICAL 8 VITREOUS VITREOUS XM&EVAL ASSOCIATE ASSOCIATE INTERMEDI S O S O ATE ESTAB PT OPHTH 74121 RETINA & RETINA & MEDICAL 8 VITREOUS VITREOUS XM&EVAL ASSOCIATE ASSOCIATE INTERMEDI S O S O ATE ESTAB PT SCANNING 81278 RETINA & RETINA & OPHTHALMI 8 VITREOUS VITREOUS C IMAGING ASSOCIATE ASSOCIATE S O S O POSTERIOR SGM UNI INJECTION J1100 ERIKA JAMES, Adán RUTHERFORD R DON R DEXAMETHO SONE SODIUM PHOSPHATE 1 MG Encounters Encounter Start End Date Code Location Performer Type Date OFFICE 00374 [facility] RHIANNON OUTGINO 7 7 PHYSICIAN T VISIT S GROUP 40 MINUTES OFFICE 91855 A Kristy VELASQUEZ 7 7 PILAR PLEITEZ T VISIT [facility] 15 MINUTES OFFICE 06061 [facility] OUTPATIRYLEE 7 7 Y OF CK T VISIT [place] 25 HOSPI MINUTES OFFICE 37711 Darnell ROY OUTGINO 7 7 PILAR PLEITEZ T VISIT [facility] 15 MINUTES HOSPITAL LUCY - 7 7 [facility] INPATIENT INC OFFICE 08699 Darnell ROY OUTPATIRYLEE 7 7 PILAR PLEITEZ T VISIT [facility] 15 MINUTES OFFICE 18560 ELIO POLLOCK OUTPATIEN 6 6 MEDICAL JAM T VISIT SERV 25 FOUNDATIO MINUTES HOSPITAL LUCY - 6 6 [facility] OUTPATIEN INC T OFFICE 40881 [facility] OUTPATIEN 6 6 PHYSICIAN RITA T VISIT S GROUP 10 MINUTES HOSPITAL LUCY - 6 6 [facility] OUTPATIEN INC T OFFICE 14366 [facility] [place] OUTPATIEN 6 6 [facility] T VISIT HOSPITAL 10 P MINUTES OFFICE 23757 [place] PO[place] OUTPATIEN 6 6 MEDICAL JAM T VISIT SERV 15 FOUNDATIO MINUTES N OFFICE 18706 LUCY DICKEYIMONE OUTPATIEN 6 6 [facility] 20 HOSPITAL MINUTES P OFFICE 75888 [facility] ALLRAN JR OUTPATIEN 6 6 PHYSICIAN RITA T VISIT S GROUP 15 MINUTES HOSPITAL LUCY - 6 6 [facility] OUTPATIEN INC T OFFICE 60197 [facility] ALLRAN JR OUTPATIEN 6 6 PHYSICIAN RITA T NEW 45 S GROUP MINUTES OFFICE 56429 [place] OUTPATIEN 6 6 MEDICAL JAM T VISIT SERV 25 FOUNDATIO MINUTES [facility] LUCY - 6 6 [facility] OUTPATIEN INC T OFFICE 15527 [place] OUTPATIEN 6 6 MEDICAL JAM T VISIT SERV 25 FOUNDATIO MINUTES HOSPITAL LUCY - 6 6 [facility] OUTPATIEN INC T EMERGENCY 25941 [facility] DEPT 6 6 Y OF MADALYN VISIT [facility]VERITY& THREAT [facility] OFFICE 64771 A Kristy WEST OUTPATIEN 6 6 PILAR PLEITEZ T VISIT PSC 15 MINUTES OFFICE 36432 A Kristy WEST OUTPATIEN 6 6 PILAR PLEITEZ T VISIT PSC 15 MINUTES OFFICE 91665 [place] OUTPATIEN 6 6 MEDICAL JAM T VISIT SERV 40 FOUNDATIO MINUTES N HOSPITAL LUCY - 6 6 [facility] INPATIENT INC OFFICE 15028 [place] OUTPATIEN 6 6 MEDICAL T VISIT SERV 25 FOUNDATIO MINUTES [facility] LUCY - 6 6 [facility] OUTPATIEN INC T OFFICE 97760 [place] OUTPATIEN 6 6 MEDICAL JAM T VISIT SERV 15 FOUNDATIO MINUTES [facility] LUCY - 5 5 [facility] OUTPATIEN [facility] LUCY - 5 5 [facility] OUTPATIEN [facility] LUCY [facility] 5 5 [facility] OUTPATIEN [facility] OFFICE 35932 A C FIELD AMB OUTPATIEN 5 5 PILAR PLEITEZ T VISIT PSC 15 MINUTES OFFICE 20885 A C FIELD AMB OUTPATIEN 4 4 PILAR PLEITEZ T VISIT PSC 15 MINUTES HOSPITAL LUCY - 4 4 [facility] OUTPATIEN [facility] LUCY [facility] 4 4 [facility] OUTPATIEN [facility] LUCY - 4 4 [facility] OUTPATIEN [facility] LUCY - 4 4 [facility] LUCY - 4 4 [facility] LUCY - 4 4 [facility] LUCY - 4 4 [facility]PATI[facility] OFFICE 10516 FIELD AMB FIELD AMB OUTPATIEN 4 4 T VISIT 15 MINUTES OFFICE 66368 FIELD AMB FIELD AMB OUTPATIEN 3 3 T VISIT 15 MINUTES OFFICE 68324 A C FIELD AMB OUTPATIEN 3 3 PILAR PLEITEZ T NEW 30 PSC MINUTES OFFICE 46328 ERIKA MELENDREZS OUTPATIEN 3 3 DON DON T VISIT 15 MINUTES HOSPITAL LUCY - 3 3 [facility] OUTPATIEN [facility] OFFICE 82382 ERIKA WHITLOCKHENS OUTPATIEN 3 3 DON DON T VISIT 15 MINUTES HOSPITAL LUCY - 2 2 [facility] OUTPATIEN [facility] OFFICE 92897 ERIKA MELENDREZS OUTPATIEN 2 2 DON DON T VISIT 15 MINUTES HOSPITAL LUCY - 2 2 [facility] OUTPATIEN [facility] LUCY - 2 2 [facility] 2 2 [facility] OFFICE 69124 ERIKA MELENDREZS OUTPATIEN 2 2 DON DON T VISIT 15 MINUTES OFFICE 34149 ERIKA WHITLOCKHENS OUTPATIEN 1 1 DON DON T VISIT 15 MINUTES OFFICE 29729 ERIKA WHITLOCKHENS OUTPATIEN 1 1 DON DON T VISIT 15 MINUTES OFFICE 01257 ERIKA WHITLOCKHENS OUTPATIEN 1 1 DON DON T VISIT 15 MINUTES OFFICE 70434 ERIKA JAMES OUTPATIEN 1 1 DON DON T VISIT 15 MINUTES HOSPITAL UNIVERSIT - 0 0 [facility] - 0 0 [facility] 0 0 [facility] 0 [facility] LUCY - 0 0 [facility] OUTPATIEN [facility] OFFICE 95549 ERIKA JAMES, OUTPATIEN 0 0 DON R DON R T VISIT 15 MINUTES OFFICE [id number] ERIKA JAMES OUTPATIEN 0 0 DON R DON R T VISIT 25 MINUTES OFFICE [id number] ERIKA JAMES OUTPATIEN 0 0 DON R DON R T VISIT 15 MINUTES OFFICE [id number] JAMESERIKA OUTPATIEN 8 8 DON R DON R T VISIT 15 MINUTES OFFICE [id number] ERIKA JAMES OUTPATIEN 8 8 DON R DON R T VISIT 15 MINUTES OFFICE [id number] ERIKA JAMES OUTPATIEN 8 8 DON R DON R T VISIT 15 MINUTES OFFICE [id number] ERIKA JAMES OUTPATIEN 8 8 DON R DON R T VISIT 15 MINUTES OFFICE [id number] ERIKA JAMES OUTPATIEN 8 8 DON R DON R T VISIT 15 MINUTES
--- OUTSIDE RECORDS SUMMARY | 2016-10-24 15:10 | External Medical Summary Rpt ---
Author Author , Organization [employer] Address Unknown Phone Unavailable Purpose Continuity of Care Document - 09-20-2015 through 2016 Immunization Name Date Route CVX Reacti Commen Provid Is Given on t er Refuse d PPV23 Histor B12586 No 2015 ical Inform ation - Source Unspec ified PPV23 Histor [facility] No 2016 ical Inform ation - Source Unspec ified
--- OUTSIDE RECORDS SUMMARY | 2016-10-24 15:10 | External Medical Summary Rpt ---
Author Author , Organization [employer] Address Unknown Phone Unavailable Purpose Continuity of Care Document - 09-20-2015 through 2016 Immunization Name Date Route CVX Reacti Commen Provid Is Given on t er Refuse d PPV23 Histor [id number] No 2015 ical Inform ation - Source Unspec ified PPV23 Histor [facility]1 No 2016 ical Inform ation - Source Unspec ified
--- OUTSIDE RECORDS SUMMARY | 2016-10-24 15:10 | External Medical Summary Rpt ---
Author Author RANDALL Thompson, [employer] Organization [employer] Address Unknown Phone Unavailable Results Urea nitrogen [Mass/volume] in Serum or Plasma Observa Value Referen Units Interpr Notes Date tion ce etation Range Urea 7 - 18 mg/dL Normal No September 14 nitrogen informati 2016 [Mass/vol on in 12:22 PM ume] in source Serum or data Plasma CREATININE Observa Value Referen Units Interpr Notes Date tion ce etation Range Creatinin 0.70 - mg/dL Normal No September 14 e 1.30 informati 2016 [Mass/vol on in 12:22 PM ume] in source Serum or data Plasma Estimated >60 ML/MIN No REFERENCE September 14 informati RANGE: 2017 glomerula on in >60 12:22 PM r source ML/MIN/1. filtratio data 73 SQUARE n rate METERSIf (GF this patient is -A merican, then multiply theresult by 1.210.
--- OUTSIDE RECORDS SUMMARY | 2016-10-24 15:10 | External Medical Summary Rpt ---
Author Author RANDALL Thompson, [employer] [employer] Organization [employer] Address Unknown Phone Unavailable [...]
[2016-10-24 15:20] LABS: BUN 12 mg/dL (7-18)
[2016-10-24 15:22] LABS: NEUTROPHILS 48 % (42-76)
[2016-10-24 15:25] LABS: GFR (ESTIMATED) 73 ML/MIN (>60)
[2016-10-24] MEDS ORDERED: BISOPROLOL FM5 MG PO (16:57)
[2016-10-24] MEDS ORDERED: CETIRIZINE HCL10 MG PO (16:57)
[2016-10-24] MEDS ORDERED: DALIRESP500 MCG PO ×2 (16:59→21:10)
[2016-10-24] MEDS ORDERED: AZITHROMYCIN250 MG PO (17:00)
--- OUTSIDE RECORDS SUMMARY | 2016-10-24 17:10 | External Medical Summary Rpt ---
Author Author , Organization [employer] Address Unknown Phone Unavailable Care Team Providers Care Hospice Case Manager Name Role Phone A Kristy QUEZADA MD [...] Unavailable [facility] Unavailable Unavailable SERVICE, [facility] Unavailable Unavailable SERVICE, [facility] Unavailable Unavailable [place], [...] TAYLOR KEYANA, TAYLOR Unavailable Unavailable KEYANA [facility] Un[facility], [facility] Unavailable Unavailable [facility]PITAL P, [facility] DONTE RUIZ, Unavailable Unavailable DONTE RUIZ [facility], Unavailable Unavailable [facility] ARMENDARIZ JENNA, ARMENDARIZ JENNA Unavailable Unavailable HUI MIKHAIL, HUI MIKHAIL Unavailable Unavailable BECKY MAR, BECKY Unavailable Unavailable [facility] NINI, CALLIE W, Unavailable Unavailable NINI, CALLIE W [facility] Un[facility] Un[facility] GLENN JR, GLENN JR Unavailable Unavailable GLENN JR DWI, GLENN Unavailable Unavailable JR DWI [facility] Unavailable Unavailable INTERNAL MED, [facility] JAMES CON, JAMES CON Unavailable [...] PHARM #[id number] [facility] Unavailable Unavailable [id number] [address] [id number], [facility] [id number] # [id number] SHANELL CAR, Unavailable Unavailable SHANELL CAR SHASHY KEY, SHASHY Unavailable Unavailable RHIANNON GLEASON Unavailable Unavailable SONG MIREYA, SONG MIREYA Unavailable [...] RAYMOND RONNY, RAYMOND Unavailable Unavailable RONNY JANENE WALDROP, JANENE Unavailable Unavailable PALMA JANENE BERGMAN, JANENE Unavailable Unavailable OTTO BOOTH Unavailable Unavailable [facility], Unavailable Unavailable [facility] [facility] HIEU GAMEZ, HIEU Unavailable Unavailable [facility], Unavailable [facility], Unavailable [facility]available [facility] MARINA NIXON, Unavailable Unavailable MARINA NIXON Purpose Continuity of Care Document - 04-25-2007 through 2016 Problems Code Diagnosis DOS Provider Status 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 09-11-2016 [facility] E785 HYPERLIPIDE 09-04-2016 [facility] UNSPECIFIED GROUP I119 HYPERTENSIV 09-04-2016 [facility] E HEART PHYSICIANS DISEASE GROUP WITHOUT HEART FAILURE 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 J410 SIMPLE 09-04-2016 A Kristy QUEZADA CHRONIC PSC BRONCHITIS J449 CHRONIC 09-04-2016 [facility] OBSTRUCTIVE PHYSICIANS PULMONARY GROUP DISEASE UNS R0600 DYSPNEA 09-04-2016 [facility] UNSPECIFIED PHYSICIANS GROUP R938 ABNORMAL 09-04-2016 [facility] FIND ON DX PHYSICIANS IMAGING OTH GROUP SPEC BODY STRCT I200 UNSTABLE 08-27-2016 [facility] ANGINA PHYSICIANS GROUP I10 ESSENTIAL 08-25-2016 [facility] P N R26498 ASHD HAVASUPAI 08-25-2016 [facility] W/[facility] P ANGINA PECTORIS I272 OTHER 08-25-2016 [facility] R0602 SHORTNESS 08-25-2016 [facility] BRE[facility] MEDICAL IMAGING ASS R079 CHEST PAIN 08-25-2016 [place] [facility] I4891 UNSPECIFIED 07-03-2016 [...] W/EXACERBAT ION 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-08-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 Kristy QUEZADA ATRIAL PSC FIBRILLATIO N 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 R634 ABNORMAL 01-11-2016 [facility] R1110 VOMITING 01-09-2016 [facility] UNSPECIFIED PHYSICIANS GROUP K828 OTHER 01-02-2016 [place] SPECIFIED [facility]ICAL DISEASES OF IMAGING ASS GALLBLADDER R630 ANOREXIA 01-02-2016 [facility] K921 MELENA 11-07-2015 [facility] K5710 DIVERTICULO 11-03-2015 [place] SIS SM MEDICAL INTEST W/O IMAGING ASS PERF/ABSC W/O BLEED R195 OTHER FECAL 11-03-2015 [place] [facility] ABNORMALITI IMAGING ASS ES C62127 LYMPHOCYTOS 10-26-2015 MOLE[facility] IS PATHOLOGY SYMPTOMATIC LAB NETW J690 PNEUMONITIS 10-26-2015 [facility] DUE TO SERV INHALATION [facility]OUNDATION OF FOOD AND VOMIT B370 CANDIDAL 10-19-2015 [facility] STOMATITIS SERV FOUNDATION R112 NAUSEA WITH 10-19-2015 [facility] VOMITING SERV UNSPECIFIED FOUNDATION I509 HEART 10-15-2015 [facility] FAILURE HOME UNSPECIFIED MEDICAL EQUIPME R531 WEAKNESS 09-20-2015 [facility] 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 SERV FOUNDATION R9431 ABNORMAL 09-18-2015 [facility] ELECTROCARD SERV IOGRAM FOUNDATION I4510 UNSPECIFIED 09-15-2015 [facility] RIGHT SERV BUNDLE-BRAN FOUNDATION CH BLOCK R001 BRADYCARDIA 09-15-2015 [facility] UNSPECIFIED FOUNDATION B965 PSEUDOMONAS 09-14-2015 [facility] CAUSE OF SERV DZ [facility]OUNDATION CLASSIFIED ELSEWHERE J9600 ACUTE 09-14-2015 [facility] RESPIRATORY SERV FAIL UNS FOUNDATION HYPOXIA/HYP ERCAPNIA J9811 ATELECTASIS 09-14-2015 [facility] X19238 ENCOUNTER 09-14-2015 [facility] SURG SERV AFTERCARE [facility] FLW SURG DIGESTIVE SYS Z049 ENCOUNTER 09-13-2015 [facility] EXAMINATION SERV &OBSERVATIO FOUNDATION N FOR UNS REASON K5900 CONSTIPATIO 09-12-2015 [facility] N SERV UNSPECIFIED FOUNDATION R140 ABDOMINAL 09-10-2015 [facility] DISTENSION SERV GASEOUS FOUNDATION R0989 OTH SPEC SX 09-09-2015 [facility] & SIGNS SERV INVLV THE FOUNDATION CIRC & RESP SYS R918 OTHER 09-09-2015 [facility] NONSPECIFIC SERV ABNORMAL [facility]OUNDATION FINDING OF LUNG FIELD A419 SEPSIS 09-08-2015 [facility] UNSPECIFIED SERV ORGANISM FOUNDATION E873 ALKALOSIS 09-08-2015 [facility] E876 HYPOKALEMIA 09-08-2015 [facility] J90 PLEURAL 09-08-2015 [facility] EFFUSION SERV NOT FOUNDATION ELSEWHERE CLASSIFIED J9620 ACUTE 09-08-2015 [facility] CHRONIC SERV RESP FAIL FOUNDATION UNS HYPOXIA/HYP ERCAPNIA J984 OTHER 09-08-2015 [facility] DISORDERS SERV OF LUNG FOUNDATION R109 UNSPECIFIED 09-08-2015 [facility] ABDOMINAL SERV PAIN FOUNDATION Z4682 ENCOUNTER 09-08-2015 [facility] ADJUST HOSPI NON-VASCULA R CATHETER 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 SERV UNSPECIFIED FOUNDATION I517 CARDIOMEGAL 09-07-2015 [facility] Y SERV [facility] I5189 OTHER 09-07-2015 [facility] ILL-DEFINED SERV HEART FOUNDATION DISEASES R0902 HYPOXEMIA 09-06-2015 [facility] R0689 OTHER 09-02-2015 [facility] ABNORMALITI SERV ES OF FOUNDATION BREATHING J942 HEMOTHORAX 08-30-2015 [facility] J948 OTHER 08-30-2015 [facility] SPECIFIED SERV PLEURAL FOUNDATION CONDITIONS L538 OTHER 08-30-2015 [facility] SPECIFIED SERV ERYTHEMATOU FOUNDATION S CONDITIONS Z9889 OTHER 08-30-2015 [facility] SPECIFIED SERV POSTPROCEDU FOUNDATION RAL STATES 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 K4030 UNILAT 08-25-2015 [facility] NGUYEN W/OBST HOSPI W/O GANGRN NOT RECUR K4040 UNILAT 08-25-2015 [facility] INGUINAL SERV NGUYEN FOUNDATION W/GANGREN NOT SPEC RECUR Z7901 DEFECT CUTTER 08-25-2015 [facility] CURRENT USE SERV OF FOUNDATION ANTICOAGULA NTS E55626 ELEVATED 08-24-2015 [facility] P UNSPECIFIED K4090 UNILAT 08-24-2015 [facility] INGUINAL SERV NGUYEN W/O FOUNDATION OBST/GANGRE N NOT RECUR K5660 UNSPECIFIED 08-24-2015 [facility] INTESTINAL AMBULANCE SERVICE OBSTRUCTION R1031 RIGHT LOWER 08-24-2015 [facility] PAIN HOSPI 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 J189 PNEUMONIA 08-03-2015 [place] UNSPECIFIED [facility]ICAL ORGANISM IMAGING ASS J439 EMPHYSEMA 08-03-2015 [facility] UNSPECIFIED [place] INTERNAL MED J929 PLEURAL 08-03-2015 [place] PLAQUE MEDICAL WITHOUT IMAGING ASS ASBESTOS R002 PALPITATION 08-03-2015 [facility] S [facility] R031 NONSPECIFIC 08-03-2015 [facility] LOW SERV BLOOD-PRESS FOUNDATION URE READING R42 DIZZINESS 08-03-2015 [facility] AND SERV GIDDINESS [facility] 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 08-03-2015 [facility] [place] SUPPLEMENTA INTERNAL L OXYGEN MED J42 UNSPECIFIED 07-13-2015 [place] CHRONIC MEDICAL BRONCHITIS IMAGING ASS Z7722 CONTACT W/ 07-13-2015 [facility] & SUSPECTED SERV EXPOS [facility] ENVIR TOBACCO SMOKE J40 BRONCHITIS 03-25-2015 [place] NOT MEDICAL SPECIFIED IMAGING ASS ACUTE OR CHRONIC R091 PLEURISY 01-21-2015 [facility] 4280 CONGESTIVE 01-14-2015 [facility] HE[facility] HOME FAILURE MEDICAL UNSPECIFIED EQUIPME 77458 OBSTRUCTIVE 01-14-2015 [facility] WITHOUT EXACERBAT 496 CHRONIC 01-14-[address] [facility] [address] HOME OBSTRUCTION MEDICAL NEC EQUIPME 04774 NUCLEAR 12-28-2014 [facility] SCLEROSIS JAMILAH 11281 OBST 09-06-2014 A Kristy QUEZADA CHRONIC PSC BRONCHITIS W/ACUTE BRONCHITIS 40448 LOSS OF 09-06-2014 A Kristy QUEZADA WEIGHT PSC 76965 OTHER CHEST 09-06-2014 A Kristy QUEZADA PAIN PSC 97474 OBSTRUCTIVE 09-05-2014 [facility] SLEEP HOME APNEA MEDICAL EQUIPME 7242 LUMBAGO 04-01-2014 A Kristy QUEZADA MD PSC V0382 NEED PROPH 04-01-2014 A Kristy QUEZADA VACCINATION PSC AGAINST STREP PNEUMONE 83584 ATRIAL 01-13-2014 [facility]RILLATIO [facility] N INC 01290 REFLUX 01-13-2014 [facility] ESOPHAGITIS [facility] INC 79395 UNS 01-13-2014 [facility] GASTRITIS&G [facility] ASTRODUODIT INC IS W/O MENTION HEMORR 29574 ABDOMINAL 01-13-2014 [facility] PAIN, [facility] GENERALIZED INC V5869 LONG-TERM 01-13-2014 [facility] (CURRENT) [facility] USE OF INC OTHER MEDICATIONS 84530 CHEST PAIN 11-24-2013 [facility] UNSPECIFIED [facility] INC 5110 PLEURISY 10-29-2013 [place] WITHOUT MEDICAL MENTION IMAGING ASS EFFUS/CURRE NT TB 7862 COUGH 10-29-2013 [facility] 84138 INSOMNIA 12-16-2012 A Kristy ANDREAIFIED PSC 24209 OTHER 12-16-2012 Darnell QUEZADA MALAISE AND PSC FATIGUE 38861 FEVER 05-23-2012 JAMES UNSPECIFIED DON 47966 WHEEZING 05-23-2012 JAMES DON 1120 CANDIDIASIS 05-21-2012 JAMES OF MOUTH DON 88470 OTHER 05-21-2012 FRANCESCA DISEASES OF EMY LUNG NOT ELSEWHERE CLASSIFIED 4940 BRONCHIECTA 01-28-2012 [place] SIS WITHOUT MEDICAL ACUTE IMAGING ASS EXACERBATIO N 5119 UNSPECIFIED 01-28-2012 [place] PLEURAL MEDICAL EFFUSION IMAGING ASS 73907 OTHER 01-28-2012 [facility] NONSPECIFIC [facility] ABNORMAL INC FINDING OF LUNG FIELD 44396 OSTEOARTHRO 01-02-2012 JAMES S INVLV MX DON SITES BUT [place] SPEC GEN 07881 OBSTRUCTIVE 11-12-2011 [facility] CHRONIC [facility] BRONCHITIS INC WITH EXACERBATIO N 38600 ESOPHAGEAL 11-12-2011 [facility] REFLUX [facility] INC 2859 UNSPECIFIED 10-05-2011 [facility] ANEMIA [facility] 5180 PULMONARY 10-05-2011 [place] COLLAPSE [facility] 486 PNEUMONIA, 09-28-2011 [place] ORGANISM MEDICAL UNSPECIFIED IMAGING ASS 5070 PNEUMONITIS 09-28-2011 [facility] DUE TO JAM INHALATION OF FOOD OR VOMITUS 66159 SHORTNESS 09-28-2011 [facility] OF BREATH [facility] INC 54841 ABDOMINAL 09-28-2011 [facility] PAIN, [facility] EPIGASTRIC INC V1261 PERSONAL 09-28-2011 [facility] HISTORY JAM PNEUMONIA RECURRENT 59895 PNEUMONIA 06-08-2011 JAMES DUE TO DON OTHER SPECIFIED BACTERIA 2724 OTHER AND 05-11-2011 [facility] UNSPECIFIED PHYSICIANS [place] HYPERLIPIDE WILMAR 2768 HYPOPOTASSE 05-11-2011 [facility] [place] PHYSICIANS [place] 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 6019 UNSPECIFIED 05-11-2011 [place] [address] PAIN IN 05-11-2011 COMBINED JOINT, PHYSICIANS MULTIPLE LA SITES 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 5183 PULMONARY 11-28-2009 [facility] A 36507 ACUTE 11-28-2009 [facility]ICAL RESPIRATORY SERV FAILURE FOUNDATIO 7856 ENLARGEMENT 11-28-2009 [facility] NODES 7931 NONSPEC 11-28-2009 [place] [facility] FIND RAD SERV OTH EXAM FOUNDATIO BODY STRUCT LUNG FIELD V1582 PERS HX 11-28-2009 [facility] TOBACCO USE [facility] PRESENTING [facility] V7282 PRE-OPERATI 11-28-2009 [facility]ICAL VE SERV RESPIRATORY FOUNDATIO EXAMINATION 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 11497 DYSPHAGIA 11-18-2009 [place] UNSPECIFIED [facility]ICAL IMAGING ASS 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, 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 ATORY DON R PULMONARY FIBROSIS 78696 OSTEOARTHRO 08-23-2009 ERIKA, SIS UNSPEC DON R WHETHER GEN/LOC LOWER LEG 27947 OSTEOARTHRO 08-23-2009 ERIKA S UNSPEC DON R GEN/LOC OTH SPEC SITES 81577 MACULAR 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 RUIZ A N OF RETINA UNSPECIFIED 57474 NONEXUDATIV 07-20-2008 RET[facility] & 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 50820 EXUDATIVE 07-20-2008 [facility] & SENILE [facility] DEGENERATIO O N OF RETINA 73073 CRYSTALLINE 07-20-2008 RETINA & DEPOSITS VITREOUS IN VITREOUS ASSOCIATES O 4610 ACUTE 02-27-2008 JAMES, MAXILLARY DON R SINUSITIS 4659 ACUTE URIS 02-27-2008 ERIKA, OF DON R UNSPECIFIED SITE 8472 LUMBAR 11-14-2007 JAMES, SPRAIN AND DON R STRAIN 4660 ACUTE 08-02-2007 JAMES, BRONCHITIS DON R 4871 INFLUENZA 07-04-2007 ERIKA, WITH OTHER DON R RESPIRATORY MANIFESTATI ONS 39827 PAIN IN 04-25-2007 JAMES, JOINT, DON R SHOULDER REGION 54166 UNSPECIFIED 04-25-2007 JAMES, SYNOVITIS DON R AND TENOSYNOVIT IS D64.9 [...] #3 NE 93 8 SY RU P Results Labs Lab Lab Date Result Refere Interp Status Commen Order Detail nces retati t Range on Differential panel, method unspecified - (10-24-2016 14:35) LYMPH 34 % 10% - Normal complet 017 50% ed 14:35 Platele NORMAL complet ts 017 ed [Presen 14:35 ce] in Blood by Light microsc opy Procedures Procedure DOS Code Location Performer Comment ADMN SET A7003 YOUR YOUR VOL 7 PHARMACY PHARMACY [employer] [facility] PNEUMAT NEBULIZR DISPBL ALBUTEROL J7620 YOUR YOUR TO 2.5 7 PHARMACY PHARMACY [employer] IPRATROPI UM BROM TO 0.5 MG ALBUTEROL J7620 A C A C TO 2.5 7 PILAR QUEZADA MD MG & PSC PSC IPRATROPI UM BROM TO 0.5 MG ECG 11511 [facility] ROUTINE 7 PHYSICIAN ECG S GROUP W/LEAST 12 LDS I&R ONLY R & L HRT 56183 [facility] CATH 7 PHYSICIAN WINJX HRT S GROUP ART& L VENTR IMG RADIOLOGI 80847 [facility] C 7 MEDICAL EXAMINATI IMAGING ON CHEST ASS SINGLE VIEW FRONTAL ECG 72634 [facility] ROUTINE 7 [facility] W/LEAST P 12 LDS I&R ONLY ALBUTEROL J7620 YOUR YOUR TO 2.5 7 PHARMACY PHARMACY [facility] [employer] IPRATROPI UM BROM TO 0.5 MG ADMN SET A7003 YOUR YOUR SM VOL 7 PHARMACY PHARMACY [employer] PNEUMAT NEBULIZR DISPBL O2 CONC 1 E1390 [facility] DEL [place] 7 HOME HOME 85%/>02 MEDICAL MEDICAL CONC AT EQUIPME EQUIPME PRSC FLW RATE O2 CONC 1 E1390 [facility] 7 HOME HOME 85%/>02 MEDICAL MEDICAL CONC AT EQUIPME EQUIPME PRSC FLW RATE RADIOLOGI 13837 [facility] C EXAM 7 MEDICAL MEDICAL CHEST [...] CONC AT EQUIPME EQUIPME PRSC FLW RATE ADMN SET A7003 YOUR YOUR SM VOL 6 PHARMACY PHARMACY [employer] [facility] PNEUMAT NEBULIZR DISPBL ALBUTEROL J7620 YOUR YOUR TO 2.5 6 PHARMACY PHARMACY MG & LLC LLC IPRATROPI UM BROM TO 0.5 MG PHRM Q0513 YOUR YOUR DISPENSIN 6 PHARMACY PHARMACY G [facility] LLC INHALATIO N RX; PER 30 DAYS O2 CONC 1 E1390 [facility] LEVY [facility] 6 HOME HOME 85%/>02 MEDICAL MEDICAL CONC AT [facility] G0463 [facility] BOBON OUTPATIEN 6 MEM HOS[facility] MEM HOS[facility] T CLIN INC INC VISIT ASSESS & MGMT PT O2 CONC 1 E1390 [facility] [place] [address] HOME HOME 85%/>02 MEDICAL MEDICAL CONC AT [facility] FLW RATE COMPREHEN 23003 [facility] AYALA SIVE 6 MEM HOSP MEM HOSP METABOLIC INC INC PANEL BLOOD 45272 [facility] AYALA COUNT 6 MEM HOS[facility] MEM HOS[facility] COMPLETE INC INC AUTO&AUTO DIFRNTL WBC COLLECTIO 47122 [facility] AYALA N VENOUS 6 [facility] H[facility] [place] [address] L[facility] A[facility]ALA ABDOMEN 6 MEM HOS[facility]OS[facility] W/CONTRAS INC INC T MATERIAL LOCM Q9967 L[facility] AYALA [phone] [facility]OS[facility] MG/ML INC INC IODINE CONCENTRA TION PER ML ANES 21331 [facility] UPPER GI 6 ANESTH PALMA ENDOSCOPY OF THE PROXIMAL BLUE TO DUODENUM O2 CONC 1 E1390 [facility] [place] [address] HOME HOME 85%/>02 MEDICAL MEDICAL CONC AT [facility] FLW RATE RADEX 84174 [place] FONTANEZ ALL UPPER GI 6 MEDICAL W/WO IMAGING GLUCAGON/ ASS DELAY IMGES W/O KUB O2 CONC 1 E1390 [facility] PENA [facility] 6 HOME MAR 85%/>02 MEDICAL CONC AT [facility] FLW RATE RADEX 80420 [facility] AYALA UPPER GI 6 MEM HOSP MEM HOSP W/WO INC INC GLUCAGON/ DELAY IMAGES W/KUB COLLECTIO 55904 [facility] AYALA N VENOUS 6 MEM HOSP MEM HOSP BLOOD INC INC VENIPUNCT URE FLOW 51061 [facility] AYALA CYTOMETRY 6 MEM HOSP MEM HOSP CELL INC INC SURF MARKER TECHL ONLY EA FLOW 41023 MOLECULAR MOLECULAR CYTOMETRY 6 INTERPJ PATHOLOGY PATHOLOGY 2-8 LAB NETW LAB NETW MARKERS FLOW 81534 [facility] AYALA CYTOMETRY 6 MEM HOSP MEM HOSP CELL INC INC SURF MARKER TECHL ONLY 1ST NEBULIZER E0570 [facility] LEVY WITH 6 HOME HOME COMPRESSO MEDICAL MEDICAL R EQUIPME EQUIPME O2 CONC 1 E1390 [facility] DILLON DEL PORT 6 HOME KEY 85%/>02 MEDICAL CONC AT EQUIPME PRSC FLW RATE SEAT E0156 [facility] ATTACHMEN 6 T WALKER WALKER E0143 [facility] FOLDING 6 WHEELED ADJUSTABL E/FIXED HEIGHT ECG 89205 [facility] CH[facility] ROUTINE 6 MEDICAL ECG SERV W/LEAST FOUNDATIO 12 LDS N I&R ONLY ECG 66322 [place] PELAEZ ROUTINE 6 MEDICAL NAN ECG SERV W/LEAST FOUNDATIO 12 LDS N I&R ONLY SBSQ 55099 [facility] 6 MEDICAL KEYANA CARE/DAY SERV 25 FOUNDATIO MINUTES N RADIOLOGI 69128 [place] JAMES CON C 6 MEDICAL EXAMINATI SERV ON CHEST FOUNDATIO SINGLE N VIEW FRONTAL RADIOLOGI 03313 [place] WILLIEK C 6 MEDICAL AYA MAR EXAMINATI SERV ON CHEST FOUNDATIO SINGLE N VIEW FRONTAL SBSQ 99652 [facility] 6 MEDICAL KEYANA CARE/DAY SERV 15 FOUNDATIO MINUTES N SBSQ 03232 [facility] 6 MEDICAL KEYANA CARE/DAY SERV 15 FOUNDATIO MINUTES N RADIOLOGI 39940 [place] CHAPPELL JENNA C 6 MEDICAL EXAMINATI SERV ON CHEST FOUNDATIO SINGLE N VIEW FRONTAL RADIOLOGI 56937 [facility] 6 MEDICAL EXAMINATI SERV ON CHEST FOUNDATIO SINGLE N VIEW FRONTAL SBSQ 95618 [facility] 6 MEDICAL CARE/DAY SERV 25 FOUNDATIO MINUTES N SBSQ 87497 [place] [facility] 6 MEDICAL CARE/DAY SERV 25 FOUNDATIO MINUTES N RADIOLOGI 43726 [place] MAHMOOD LEATHA C 6 MEDICAL EXAMINATI SERV ON CHEST FOUNDATIO SINGLE N VIEW FRONTAL RADEX 49365 [place] [facility] ABDOMEN 1 6 MEDICAL SUSAN SERV ANTEROPOS FOUNDATIO TERIOR N VIEW ECG 10490 [place] [facility] ROUTINE 6 MEDICAL ECG SERV W/LEAST FOUNDATIO 12 LDS N I&R ONLY ECG 29247 [facility] ROUTINE 6 MEDICAL ECG SERV W/LEAST FOUNDATIO 12 LDS N I&R ONLY RADEX 22833 [facility] SHANELL ABDOMEN 1 6 Y OF CAR TEX ANTEROPOS HOSPI TERIOR [place]IEW RADIOLOGI 79985 [place] MAHMOOD [facility] C 6 MEDICAL EXAMINATI SERV ON CHEST FOUNDATIO SINGLE N VIEW FRONTAL CRITICAL 51242 [place] [facility] CARE 6 MEDICAL ILL/INJUR SERV ED FOUNDATIO PATIENT N INIT 30-74 MIN SBSQ 69438 [place] [facility] 6 MEDICAL CARE/DAY SERV 25 FOUNDATIO MINUTES N RADIOLOGI 95290 [place] [facility]GUROGALL[facility] C 6 MEDICAL AYA MAR EXAMINATI SERV ON CHEST FOUNDATIO SINGLE N [place] FRONTAL CT THORAX 36713 [place] JAMES CON 6 MEDICAL W/CONTRAS SERV T FOUNDATIO MATERIAL N RADEX 17507 [facility] SHANELL ABDOMEN 1 6 Y [place] [address] [place] REYEZ CLEO ABDOMEN & 6 MEDICAL PELVIS SERV W/CONTRAS FOUNDATIO T N MATERIAL ECG 68580 [place] [facility] ROUTINE 6 MEDICAL ECG SERV W/LEAST FOUNDATIO 12 LDS N I&R ONLY ECHO 82062 [place] [facility] TTHRC R-T 6 MEDICAL ERIKA 2D SERV W/WOM-MOD FOUNDATIO E COMPL N SPEC&COLR D RADEX ABD 72419 [place] PAULA COMPL 6 MEDICAL JURGEN AQT ABD SERV ANNEL W/S/E/D FOUNDATIO VIEWS 1 N VIEW CH RADIOLOGI 40898 [place] JAMES QUISPE C 6 MEDICAL EXAMINATI SERV ON CHEST FOUNDATIO SINGLE N VIEW FRONTAL SBSQ 01557 [facility] 6 MEDICAL AND CARE/DAY SERV 25 FOUNDATIO MINUTES N INITIAL 38963 [facility] 6 MEDICAL SUN KAYODE CARE/DAY SERV 30 FOUNDATIO MINUTES N SBSQ 19096 [facility] 6 MEDICAL AND CARE/DAY SERV 25 FOUNDATIO MINUTES N RADIOLOGI 46342 [place] JAMES CON C 6 MEDICAL EXAMINATI SERV ON CHEST FOUNDATIO SINGLE N [place]IEW FRONTAL RADIOLOGI 22972 [place] JAMES CON C 6 MEDICAL EXAMINATI SERV ON CHEST FOUNDATIO SINGLE N [place]IEW FRONTAL ECG 48914 [place] SAGE CHI ROUTINE 6 MEDICAL ECG SERV W/LEAST FOUNDATIO 12 LDS N I&R ONLY RADEX 61367 [facility] ABDOMEN 1 6 Y OF CAR [place] [facility]TEROPOS [facility] [place] RADIOLOGI 07058 [place] JONAHGUROVSK C 6 MEDICAL AYA MAR EXAMINATI SERV ON CHEST FOUNDATIO SINGLE N [place]IEW FRONTAL RADIOLOGI 04382 [place] ROBBINS C 6 MEDICAL JESS EXAMINATI SERV ON CHEST FOUNDATIO SINGLE N [place]IEW FRONTAL RADEX 07983 [place] ZAGUROVSK ABDOMEN 1 6 MEDICAL AYA MAR SERV ANTEROPOS FOUNDATIO TERIOR N VIEW RADEX 18282 [facility] ABDOMEN 1 6 Y OF CAR [place] ANTEROPOS HOSPI [place]IOR VIEW RADIOLOGI 16500 [place] ZAGUROVSK C 6 MEDICAL AYA MAR EXAMINATI SERV ON CHEST FOUNDATIO SINGLE N VIEW FRONTAL CT THORAX 66069 [place] ARMENDARIZ JENNA 6 MEDICAL W/[place] [address] [place] AYOOB AND ABDOMEN & 6 MEDICAL PELVIS SERV W/CONTRAS FOUNDATIO T N MATERIAL RADEX 93391 UNIVERSIT SHANELL ABDOMEN 1 6 Y OF CAR [place] [facility] TERIOR VIEW SBSQ 90212 [facility] 6 MEDICAL AND CARE/DAY SERV 25 FOUNDATIO MINUTES N SBSQ 30441 [facility] 6 MEDICAL AND CARE/DAY SERV 25 FOUNDATIO MINUTES N RADIOLOGI 15205 [place] DELL CAR C 6 MEDICAL EXAMINATI SERV ON CHEST FOUNDATIO SINGLE N VIEW FRONTAL RADIOLOGI 53836 [place] JAMES CON C 6 MEDICAL EXAMINATI SERV ON CHEST FOUNDATIO SINGLE N VIEW FRONTAL ECG 05902 [place] PELAEZ ROUTINE 6 MEDICAL NAN ECG SERV W/LEAST FOUNDATIO 12 LDS N I&R ONLY ECG 60067 [place] HUI MIKHAIL ROUTINE 6 MEDICAL ECG SERV W/LEAST FOUNDATIO 12 LDS N [place] L[place] [address] [place] HIEU SURG 6 MEDICAL FRANCO PATHOLOGY SERV FOUNDATIO GROSS&JESS N ROSCOPIC EXAM SBSQ 54611 [facility] 6 MEDICAL RONNY CARE/DAY SERV 25 FOUNDATIO MINUTES N ARTL 29426 [facility] CATH/CAN 7 Y OF Y [facility] SFUSION SPX PRQ RPR 1ST 81557 [facility] INGUN 6 MEDICAL RONNY HRNA AGE SERV 5 YRS/> FOUNDATIO INCARCERA N KISHOR ANESTHESI 81164 [facility] BET A HERNIA 6 Y OF REPAIR [place] [facility] ABDOMEN NOS LEVEL III 35815 [place] HIEU SURG 6 MEDICAL FRANCO PATHOLOGY SERV FOUNDATIO GROSS&JESS N ROSCOPIC EXAM ECG 05607 [facility] ROUTINE 6 [facility] ECG INC INC W/LEAST 12 LDS TRCG ONLY W/O I&[place] [address] [place] [facility] ABDOMEN & 6 MEDICAL PELVIS IMAGING W/[place] [address] [facility] AMYLASE 6 [facility] INC INC CREATINE 33926 [facility] KINASE MB 6 [facility] FRACTION INC INC ONLY BLOOD 88763 [facility] COUNT 6 [facility] COMPLETE INC INC AUTO&[place] [address] [facility] TROPONIN 6 [facility] QUANTITAT INC INC ARCENIO RADIOLOGI 29171 [place] [facility] C 6 MEDICAL EXAMINATI IMAGING [place] [address] [facility] LIPASE 6 [facility] INC INC CREATINE 13965 [facility] KINASE 6 [facility] TOTAL INC INC THER 63937 LUC[facility] AYAL[facility] PROPH/DX 6 [facility] NJX EA INC INC SEQL IV PUSH SBST/DRUG FAC INJECTION J2405 LUCYJOAN BOBON 6 [facility] ONDANSETR INC INC ON HCL PER 1 MG INJ J2543 LUCY AYALA [facility] YONATHAN INC INC SOD/TAZOB ACTAM SOD 1 G/0.125 G COMPREHEN 03134 LUCY AYALA SIVE 6 [facility] METABOLIC INC INC PANEL ECG 79203 LUCY BEVERLY ROUTINE 6 [facility] W/LEAST P 12 LDS [place] [address] LUCY AYLAA INFUSION 6 [facility] THERAPY/P INC INC ROPHYLAXI S /DX 1ST TO 1 HR GROUND A0425 [facility] 6 AMBULANCE AMBULANCE PER SERVICE SERVICE STATUTE MILE AMBULANCE A0429 [facility] SERVICE 6 AMBULANCE AMBULANCE BLS SERVICE SERVICE EMERGENCY TRANSPORT INITIAL [address] CARE/DAY SERV 50 FOUNDATIO MINUTES N BLOOD 24692 Darnell ROY JENNA COUNT 6 PILAR PLEITEZ COMPLETE PSC AUTO&AUTO DIFRNTL WBC COLLECTIO 18566 Darnell WEST N VENOUS 6 PILAR PLEITEZ BLOOD PSC VENIPUNCT URE NEBULIZER E0570 MILDRED LEVY WITH 6 HOME HOME COMPRESSO MEDICAL MEDICAL R EQUIPME EQUIPME ECG 62198 LUCY BEVERLY ROUTINE 6 [facility] W/LEAST P 12 LDS I&R ONLY RADIOLOGI 68184 [facility] FRANCES[facility] 6 MEDICAL EMY EXAMINATI IMAGING ON CHEST ASS SINGLE VIEW FRONTAL INITIAL [address] CARE/DAY INTERNAL 70 MED MINUTES NEBULIZER E0570 MILDRED LEVY WITH 6 HOME HOME COMPRESSO MEDICAL MEDICAL R EQUIPME EQUIPME COMPREHEN 77996 LUCY AYALA SIVE 6 [facility] METABOLIC INC INC PANEL RADIOLOGI 17222 LUCY AYALA C EXAM 6 [facility] CHEST 2 INC INC VIEWS FRONTAL&L ATERAL RADIOLOGI 02213 [facility] ESTEE ALL C 6 MEDICAL EXAMINATI IMAGING ON CHEST ASS SINGLE VIEW FRONTAL BLOOD 53765 LUCY AYALA COUNT 6 [facility] COMPLETE INC INC AUTO&AUTO DIFRNTL WBC COLLECTIO 85012 LUCY AYALA N VENOUS 6 [facility] BLOOD INC INC VENIPUNCT URE ADMN SET A7003 YOUR YOUR SM VOL 6 PHARMACY PHARMACY NONFILTR [employer] PNEUMAT NEBULIZR DISPBL ALBUTEROL J7620 YOUR YOUR TO 2.5 6 PHARMACY PHARMACY [email or web address] IPRATROPI UM BROM TO 0.5 MG PHRM Q0513 YOUR YOUR DISPENSIN 6 PHARMACY PHARMACY [employer] INHALATIO N RX; PER 30 DAYS NEBULIZER E0570 MILDRED BARBERRELL WITH 6 HOME HOME COMPRESSO MEDICAL MEDICAL R EQUIPME EQUIPME NEBULIZER E0570 MILDRED LEVY WITH 6 HOME HOME COMPRESSO MEDICAL MEDICAL R EQUIPME EQUIPME ALBUTEROL J7620 YOUR YOUR TO 2.5 5 PHARMACY PHARMACY [email or web address] IPRATROPI UM BROM TO 0.5 MG PHRM Q0513 YOUR YOUR DISPENSIN 5 PHARMACY PHARMACY [employer] INHALATIO N RX; PER 30 DAYS RADIOLOGI 13919 [place] FONTANE[place] ALL C EXAM 5 MEDICAL CHEST 2 IMAGING VIEWS ASS FRONTAL&L ATERAL CT THORAX 13852 [place] FONT[place] ALL 5 MEDICAL W/CONTRAS IMAGING T ASS MATERIAL RADIOLOGI 33878 [place] ESTEE ALL C EXAM 5 MEDICAL CHEST 2 IMAGING VIEWS ASS FRONTAL&L ATERAL NEBULIZER E0570 MILDRED LEVY WITH 5 HOME HOME COMPRESSO MEDICAL MEDICAL R EQUIPME EQUIPME PHARM G0333 YOUR YOUR DISPEN 5 PHARMACY PHARMACY [employer] RX; INITIAL 30-DAY SUPPLY ALBUTEROL J7620 YOUR YOUR TO 2.5 5 PHARMACY PHARMACY [employer] [facility] IPRATROPI UM BROM TO 0.5 MG CATARACT 89730 [facility] REMOVAL 5 JAMILAH JAMILAH INSERTION OF LENS CONTINUOU E0601 MILDRED BARBERRELL S 5 HOME [...] PRESSURE DEVICE CONTINUOU E0601 MILDRED MILDRED S 4 HOME HOME POSITIVE MEDICAL MEDICAL AIRWAY EQUIPME EQUIPME PRESSURE DEVICE FULL FACE A7030 MILDRED BARBERRELL MASK 4 HOME HOME USED MEDICAL MEDICAL W/POS EQUIPME EQUIPME ARWAY PRESS DEVICE EA POLYSOM 14635 NEERAJ KERN MAR 6/>YRS 4 SLEEP 4/> NEUROSCIE ADDL NCES CENT AMA ATTND POLYSOM 27203 LUCY AYALA 6/>YRS 4 [facility] SLEEP 4/> INC INC ADDL AMA ATTND IMC/IMC G0461 LUCY AYALA PER 4 [facility] SPECIMEN; INC INC 1ST SNGL/MPX ANTIBODY STN SPECIAL 55864 LUCY AYALA STAIN 4 [facility] GROUP 1 INC INC MICROORGA NISMS I&R SPCL STN 96507 LUCY AYALA 2 I&R 4 [facility] EXCPT INC INC MICROORG/ ENZYME/[place] [address] LUCY AYALA INFUSION 4 [facility] THERAPY INC INC PROPHYLAX IS/[place] [address] LUCY AYALA SURG 4 [facility] PATHOLOGY INC INC GROSS&[place] [address] LUCY AYALA INFUSION 4 [facility] THERAPY/P INC INC ROPHYLAXI S /DX 1ST TO 1 HR SPMTRY 84536 LUCY AYALA W/VC 4 [facility] EXPIRATOR INC INC Y ALFREDO W/WO MXML VOL VNTJ ECHO 25567 ULCY AYALA TTHRC R-T 4 [facility] 2D INC INC W/WOM-MOD E COMPL SPEC&COLR D MYOCARDIA 17578 LUCY AYALA L SPECT 4 [facility] MULTIPLE INC INC STUDIES CV STRS 65705 GLENN JR GLENN JR TST 4 DWI DWI XERS&/OR RX CONT ECG I&R ONLY CV STRS 58318 KEITH PARKER JOSH TST 4 XERS&/OR RX CONT ECG W/O I&R MYOCARDIA 37709 TEX MA L 4 MEDICAL EMY PERFUSION IMAGING PLANAR ASS MULTIPLE STUDIES RADIOLOGI 04211 [place] FRANCSECA C EXAM 4 MEDICAL EMY CHEST 2 [...] SONE ACETATE & PHOSPHATE 3 MG RADIOLOGI 96434 LUCY AYALA C EXAM 3 [facility] [...] EQUIPME EQUIPME FLWMTR HUMIDFR&M ASK CT THORAX 51072 [place]ANC[place] W/O 2 MEDICAL EMY CONTRAST IMAGING MATERIAL ASS 3D 93035 [place] RENDERING 2 MEDICAL EMY IMAGING W/INTERP& ASS POSTPROC DIFF WORK STATION PRTBLE E0431 MILDRED MILDRED GASEOUS 2 HOME HOME O2 SYS MEDICAL MEDICAL RENT; EQUIPME EQUIPME FLWMTR HUMIDFR&M ASK TOBACCO 04851 JAMES JAMES USE 2 DON DON CESSATION INTERMEDI ATE 3-10 MINUTES PRTBLE E0431 MILDRED MILDRED GASEOUS 2 HOME HOME O2 SYS MEDICAL MEDICAL RENT; EQUIPME EQUIPME FLWMTR HUMIDFR&M ASK PRTBLE E0431 MILDRED MILDRED GASEOUS 2 HOME HOME O2 SYS MEDICAL MEDICAL RENT; EQUIPME EQUIPME FLWMTR HUMIDFR&M ASK SPMTRY 50223 MARIS POLLOCK W/VC 2 JAM JAM EXPIRATOR Y ALFREDO W/WO MXML VOL VNTJ RADIOLOGI 43691 [place]ANC[place] C EXAM 2 MEDICAL EMY CHEST 2 IMAGING VIEWS ASS FRONTAL&L ATERAL PRTBLE E0431 MILDRED MILDRED GASEOUS 2 HOME HOME O2 SYS MEDICAL MEDICAL RENT; EQUIPME EQUIPME FLWMTR HUMIDFR&M ASK CT THORAX 35152 LUCY AYALA W/O 2 [facility] CONTRAST INC INC MATERIAL SMR PRIM 06001 LUCY AYALA SRC 2 [facility] GRAM/GIEM INC INC SA STAIN BCT FUNGI/VAHID L RADIOLOGI 17767 LUCY AYALA C EXAM 2 [facility] CHEST 2 INC INC VIEWS FRONTAL&L ATERAL CYTP 34796 PATHOLOGY PATHOLOGY SLCTV 2 & & CELL CYTOLOGY CYTOLOGY ENHANCEME LAB LAB NT INTERPJ XCPT C/V NONINVASI 02774 ULCY AYALA VE 2 [facility] EAR/PULSE [place] [address] LUCY AYALA GUIDANCE 2 [facility] NEEDLE INC INC PLACEMENT CUL BACT 15033 LUCY AYALA XCPT 2 [facility] URINE INC INC BLOOD/STO OL AEROBIC ISOL CULTURE 07522 LUCY AYALA BACTERIAL 2 [facility] ANY INC INC SOURCE ANAEROBIC ISO&ID CULTURE 43217 LUCY AYALA TUBERCLE/ 2 [facility] OTH INC INC ACID-FAST BACILLI ANY ISOL TISS FRED 72564 LUCY AYALA SLIDE 2 [facility] SAMPS INC INC SKN/HR/NL S FNGI/ECTO PARASIT COLLECTIO 95770 LUCY AYALA N VENOUS 2 [facility] BLOOD [place] [address] LUCY AYALA IRON 2 [facility] INC INC CARBOXYHE 37209 LUCY AYALA MOGLOBIN 2 [facility] QUANTITAT INC INC ARCENIO CYANOCOBA 34382 LUCY AYALA BETTIE 2 [facility] VITAMIN INC INC B-12 THORACENT 60796 LUCY AYALA ESIS 2 [facility] PUNCTURE INC INC PLEURAL CAVITY ASPIRATIO N BLOOD 67045 LUCY AYALA GASES ANY 2 [facility] INC INC COMBINATI ON PH PCO2 PO2 CO2 HCO3 GLUCOSE 20420 LUCY AYALA BODY 2 [facility] FLUID INC INC OTHER THAN BLOOD IRON 90095 LUCY AYALA BINDING 2 [facility] CAPACITY INC INC LACTATE 64376 LUCY AYALA DEHYDROGE 2 [facility] NASE LDH INC INC PROTEIN 40862 LUCY AYALA XCPT 2 [facility] REFRACTOM INC INC ETRY SERUM PLASMA/WH L BLD CELL 22530 LUCY AYALA COUNT 2 [facility] MISC BODY INC INC FLUIDS W/DIFFERE NTIAL COUNT SPUTUM 65539 LUCY AYALA OBTAINING 2 [facility] SPEC INC INC AEROSOL INDUCED TX SPX ECG 89337 LUCY AYALA ROUTINE 2 [facility] ECG INC INC W/LEAST 12 LDS TRCG ONLY W/O I&R 3D 83144 [place] RENDERING 2 MEDICAL EMY IMAGING W/INTERP& ASS POSTPROC DIFF WORK STATION ECG 84372 RUSH BEVERLY ROUTINE 2 JENNA JENNA ECG W/LEAST 12 LDS I&R ONLY CT THORAX 18563 LUCY AYALA W/O 2 [facility] CONTRAST INC INC MATERIAL PRTBLE E0431 MILDRED MILDRED GASEOUS 2 HOME HOME O2 SYS MEDICAL MEDICAL RENT; EQUIPME EQUIPME FLWMTR HUMIDFR&M ASK PRTBLE E0431 MILDRED MILDRED GASEOUS 2 HOME HOME O2 SYS MEDICAL MEDICAL RENT; EQUIPME EQUIPME FLWMTR HUMIDFR&M ASK SPMTRY 96844 LUCY AYALA W/VC 2 [facility] EXPIRATOR INC INC Y ALFREDO W/WO MXML VOL VNTJ PRTBLE E0431 MILDRED MILDRED GASEOUS 2 HOME HOME O2 SYS MEDICAL MEDICAL RENT; EQUIPME EQUIPME FLWMTR HUMIDFR&M ASK PRTBLE E0431 MILDRED MILDRED GASEOUS 2 HOME HOME O2 SYS MEDICAL MEDICAL RENT; EQUIPME EQUIPME FLWMTR HUMIDFR&M ASK RADIOLOGI 32158 ERIKA JAMES C EXAM 2 DON DON CHEST 2 VIEWS FRONTAL&L ATERAL CT THORAX 42294 [place] 2 MEDICAL EMY W/CONTRAS IMAGING T ASS MATERIAL COMPREHEN 52926 COMBINED COMBINED SIVE 2 PHYSICIAN PHYSICIAN METABOLIC S LA S LA PANEL BLOOD 52675 COMBINED COMBINED COUNT 2 PHYSICIAN PHYSICIAN COMPLETE S LA S LA AUTO&[place] [address] COMBINED COMBINED PROSTATE 2 PHYSICIAN PHYSICIAN SPECIFIC S LA S LA ANTIGEN TOTAL LIPID 64911 COMBINED COMBINED PANEL 2 PHYSICIAN PHYSICIAN S LA S LA O2 CONC 1 E1390 MILDRED MILDRED [place] PORT 2 HOME HOME 85%/>02 MEDICAL MEDICAL CONC AT EQUIPME EQUIPME PRSC FLW RATE PRTBLE E0431 MILDRED LEVY GASEOUS 2 HOME [...] EQUIPME PRSC FLW RATE PRTBLE E0431 MILDRED LEVY GASEOUS [...] EQUIPME PRSC FLW RATE PRTBLE E0431 MILDRED LEVY GASEOUS 1 HOME HOME O2 SYS MEDICAL MEDICAL RENT; EQUIPME EQUIPME FLWMTR HUMIDFR&M ASK PRTBLE E0431 MILDRED LEVY GASEOUS 1 HOME MED HOME MED O2 SYS EQUIP. L EQUIP. L RENT; FLWMTR HUMIDFR&M ASK O2 CONC 1 E1390 [place] 1 HOME MED HOME MED 85%/>02 EQUIP. L EQUIP. L CONC AT [facility] FLW RATE O2 CONC 1 E1390 [place] 1 HOME MED HOME MED 85%/>02 EQUIP. L EQUIP. L CONC AT PRS FLW RATE PRTBLE E0431 MILDRED LEVY GASEOUS 1 HOME MED HOME MED O2 SYS EQUIP. L EQUIP. L RENT; [facility] HUMIDFR&M ASK PRTBLE E0431 MILDRED LEVY GASEOUS 1 HOME MED HOME MED O2 SYS EQUIP. L EQUIP. L RENT; [facility] HUMIDFR&M ASK O2 CONC 1 E1390 MILDRED [place] 1 HOME MED HOME MED 85%/>02 EQUIP. L EQUIP. L CONC AT [facility] FLW RATE O2 CONC 1 E1390 [place] 1 HOME MED HOME MED 85%/>02 EQUIP. L EQUIP. L CONC AT [facility] FLW RATE PRTBLE E0431 MILDRED LEVY GASEOUS 1 HOME MED HOME MED O2 SYS EQUIP. L EQUIP. L RENT; [facility] HUMIDFR&M ASK PRTBLE E0431 MILDRED LEVY GASEOUS 1 HOME MED HOME MED O2 SYS EQUIP. L EQUIP. L RENT; [facility] HUMIDFR&M ASK O2 CONC 1 E1390 MILDRED LEVY [facility] 1 HOME MED HOME MED 85%/>02 EQUIP. L EQUIP. L CONC AT [facility] FLW RATE PRTBLE E0431 MILDRED LEVY GASEOUS 0 HOME MED HOME MED O2 SYS EQUIP. L EQUIP. L RENT; [facility] HUMIDFR&M ASK O2 CONC 1 E1390 [place] 0 HOME MED HOME MED 85%/>02 EQUIP. L EQUIP. L CONC AT [facility] FLW RATE O2 CONC 1 E1390 [place] 0 HOME MED HOME MED 85%/>02 EQUIP. L EQUIP. L CONC AT [facility] FLW RATE PRTBLE E0431 MILDRED LEVY GASEOUS 0 HOME MED HOME MED O2 SYS EQUIP. L EQUIP. L RENT; [facility] HUMIDFR&M ASK O2 CONC 1 E1390 [place] 0 HOME MED HOME MED 85%/>02 EQUIP. L EQUIP. L CONC AT [facility] FLW RATE PRTBLE E0431 [...] 85%/>02 EQUIP. L EQUIP. L CONC AT [facility] FLW RATE INJECTION J2250 [facility] 0 Y Y MIDAZOLAM [facility] HCL PER 1 MG VIRUS 92018 [facility] CENTRIFUG 0 Y Y E ENHNCD [facility] ID IMFLUOR STAIN EA CULTURE 63377 [facility] FUNGI 0 Y Y DEFINITIV [facility] E ID EACH ORGANISM YEAST SMR PRIM 02068 [facility] SRC 0 Y Y GRAM/GIEM [facility] SA STAIN BCT FUNGI/VAHID L CYTP FINE 37554 [facility] NDL 0 Y Y ASPIRATE [facility] IMMT CYTOHIST STD DX 1ST CYTP EVAL 22568 [facility] FINE 0 Y Y NEEDLE [facility] ASPIRATE INTERP & REPORT CULTURE 44976 [facility] FNGI 0 Y Y MOLD/YEAS [facility] T PRSMPTV OTH XCPT BLOOD SPECIAL 09070 [facility] STAIN 0 Y Y GROUP 1 [facility] MICROORSC NISMS I&R CONCENTRA 01669 [facility] TION 0 Y Y INFECTIOU [facility] S AGENTS VIRUS 16403 [facility] TISS CUL 0 [facility] ON CYTOPATHI C EFFECT IADNA NOS 94647 [facility] UNIVERS 0 Y Y AMPLIFIED [facility] PROBE TQ EACH ORGANISM INJECTION J3010 [facility] UNIVERS FENTANYL 0 Y Y CITRATE [facility] 0.1 MG BRNCHSC 43609 [facility] UNIVERS W/BRNCL 0 Y Y ALVEOLAR [facility] LAVAGE RADIOLOGI 95141 [facility] C 0 [facility] ON CHEST SINGLE VIEW FRONTAL BRONCHOSC 21716 [facility] OPY 0 Y Y W/TRANSBR [facility] ONCHIAL LUNG BX 1 LOBE BRONCHOSC 89796 [facility] OPY 0 Y Y NEEDLE BX [facility] TRACHEA MAIN STEM&/BRO N IAADI 68304 [facility] PNEUMOCUS 0 Y Y TIS [facility] CARINII SMR PRIM 39112 [facility] SRC 0 Y Y FLUORESCE [facility] NT&/AFS BCT FNGI PARASIT TISS FRED 81618 [facility] SLIDE 0 Y Y [facility] SKN/HR/NL S FNGI/ECTO PARASIT CULTURE 08574 [facility] TUBERCLE/ 0 Y [facility] ACID-FAST BACILLI ANY ISOL CUL BACT 59908 [facility] XCPT 0 Y Y URINE [facility] BLOOD/STO OL AEROBIC ISOL CELL 24946 [facility] COUNT 0 Y Y MISC BODY [facility] FLUIDS [place] [address] [facility] SURG 0 Y Y PATHOLOGY [facility] GROSS&JESS ROSCOPIC EXAM PRTBLE E0431 MILDRED LEVY GASEOUS 0 HOME MED HOME MED O2 SYS EQUIP. L EQUIP. L RENT; FLWMTR HUMIDFR&M ASK O2 CONC 1 E1390 MILDRED [place] 0 HOME MED HOME MED 85%/>02 EQUIP. L EQUIP. L CONC AT [facility] FLW RATE RADEX 89300 [place] ESOPHAGUS 0 MEDICAL EMY IMAGING ASS DUP-SCAN 71540 [place] XTR VEINS 0 MEDICAL EMY COMPLETE IMAGING ASS BILATERAL STUDY PHLEBOTOM 00226 COMBINED COMBINED Y 0 PHYSICIAN PHYSICIAN THERAPEUT S LA S LA IC SEPARATE PROCEDURE BLOOD 49229 L[facility]AL[facility] COUNT 0 [facility] COMPLETE INC INC AUTO&AUTO DIFRNTL WBC COMPREHEN 94666 LUC[facility] SIVE 0 [facility] METABOLIC INC INC PANEL COLLECTIO 45811 LUCY AYALA N VENOUS 0 [facility] BLOOD INC INC VENIPUNCT URE BRNCDILAT 82001 LUCY AYALA RSPSE 0 [facility] PRE&POST- BRNCDILAT ADMN PULMONARY 61557 ELIO POLLOCK STRESS 0 MEDICAL JAM TESTING SERV SIMPLE FOUNDATIO CT THORAX 04460 [facility] W/O 0 MEDICAL KEY CONTRAST IMAGING MATERIAL ASS COLLECTIO 01237 COMBINED COMBINED N VENOUS 0 PHYSICIAN PHYSICIAN BLOOD S LAB S LAB VENIPUNCT URE COMPREHEN 86608 COMBINED COMBINED SIVE 0 PHYSICIAN PHYSICIAN METABOLIC S LAB S LAB PANEL 3D 40775 [place] NELLY RENDERING 0 MEDICAL KEY IMAGING W/INTERP& ASS POSTPROC DIFF WORK STATION RADIOLOGI 20408 [place] C EXAM 0 MEDICAL EMY CHEST 2 IMAGING VIEWS ASS FRONTAL&L ATERAL O2 CONC 1 E1390 MILDRED MILDRED [place] 0 HOME MED HOME MED 85%/>02 EQUIP. EQUIP. CONC AT [facility] FLW RATE PRTBLE E0431 MILDRED MILDRED GASEOUS 0 HOME MED HOME MED O2 SYS EQUIP. EQUIP. RENT; [facility] FLWMTR HUMIDFR&M ASK PRTBLE E0431 MILDRED MILDRED GASEOUS 0 HOME MED HOME MED O2 SYS EQUIP. EQUIP. RENT; [facility] FLWMTR HUMIDFR&M ASK RADIOLOGI 04965 ERIKA JAMES C EXAM 0 DON R DON R CHEST 2 VIEWS FRONTAL&L ATERAL ECG 34111 REIKA JAMES, ROUTINE 0 DON R DON R ECG W/LEAST 12 LDS W/I&R O2 CONC 1 E1390 MILDRED BARBERRELL [place] 0 HOME MED HOME MED 85%/>02 EQUIP. EQUIP. CONC AT [employer] [facility] FLW RATE INJECTION J1940 ERIKA JAMES, 0 DON R DON R FUROSEMID E UP TO 20 MG RADIOLOGI 18466 ERIKA JAMES C 0 DON R DON R EXAMINATI ON CHEST SINGLE VIEW [facility] 43345 ERIKA JAMES, DISCHARGE 0 DON R DON R DAY MANAGEMEN T 30 MIN/< SBSQ 87253 [facility] 0 DON R DON R CARE/DAY 25 MINUTES RADIOLOGI 07065 [place] Kristy VILLEGAS EXAM 0 MEDICAL JANE P CHEST 2 IMAGING VIEWS ASSOCIATE FRONTAL&L S ATERAL [facility] 80738 [facility] 0 DON R DON R CARE/DAY [address] [facility] 41866 [facility] 0 DON R DON R CARE/DAY 25 MINUTES [facility] 42257 [facility] 0 DON R DON R CARE/DAY 25 MINUTES 3D 32188 [place], RENDERING 0 MEDICAL SHASHI IMAGING W/INTERP& ASSOCIATE POSTPROC S DIFF WORK STATION CT THORAX 45141 [place], 0 MEDICAL SHASHI W/CONTRAS IMAGING T ASSOCIATE MATERIAL S [facility] 84561 [facility] 0 DON R DON R CARE/DAY 25 MINUTES RADIOLOGI 47397 JAMES JAMES, 0 DON R DON R EXAMINATI ON CHEST SINGLE VIEW FRONTAL RADIOLOGI 39549 [place] EXAM 0 MEDICAL SHASHI CHEST 2 IMAGING VIEWS ASSOCIATE FRONTAL&L S ATERAL INITIAL 55621 [facility] 0 DON R DON R CARE/DAY 50 MINUTES OPHTH 88564 [facility] 9 DONTE A DONTE A XM&EVAL COMPRHNSV ESTAB PT 1/> SCANNING 95709 [facility] & NINI, OPH[facility]ALMI 9 VITREOUS CALLIE W C IMAGING ASSOCIATE S O POSTERIOR SGM UNI OPHTH 26231 [facility] NINI, [facility] 9 VITREOUS CALLIE W XM&EVAL ASSOCIATE INTERMEDI S O ATE ESTAB PT INJECTION J1040 ERIKA JAMES, 8 DON R DON R METHYLPRE DNISOLONE ACETATE 80 MG OPHTH 12144 RETINA & NINI, [facility] 8 VITREOUS CALLIE W XM&EVAL ASSOCIATE INTERMEDI S O ATE ESTAB PT SCANNING 36369 [facility] & NINI, OPH[facility]ALMI 8 VITREOUS CALLIE Winkler C IMAGING ASSOCIATE S O POSTERIOR SGM UNI INJECTION J1040 ERIKA JAMES 8 DON R DON R METHYLPRE DNISOLONE ACETATE 80 MG OPHTH 59283 SARA RUIZ, [facility] 8 DONTE A DONTE A XM&EVAL COMPRHNSV ESTAB PT 1/ SCANNING 13359 [facility] & NINI, OPHTHALMI 8 VITREOUS CALLIE Winkler C IMAGING ASSOCIATE S O POSTERIOR SGM UNI OPHTH 97649 [facility] & NINI, MEDICAL 8 VITREOUS CALLIE W XM&EVAL ASSOCIATE INTERMEDI S O ATE ESTAB PT INJECTION J1040 ERIKA JAMES 8 DON R DON R METHYLPRE DNISOLONE ACETATE 80 MG RADIOLOGI 14179 ERIKA JAMES C EXAM 8 DON R DON R CHEST 2 VIEWS FRONTAL&L ATERAL SCANNING 09599 [facility] & OPHTHALMI 8 VITREOUS VITREOUS C IMAGING ASSOCIATE ASSOCIATE S O S O POSTERIOR SGM UNI OPHTH 45560 [facility] & MEDICAL 8 VITREOUS VITREOUS XM&EVAL ASSOCIATE ASSOCIATE INTERMEDI S O S O ATE ESTAB PT OPHTH 17673 [facility] & MEDICAL 8 VITREOUS VITREOUS XM&EVAL ASSOCIATE ASSOCIATE INTERMEDI S O S O ATE ESTAB PT SCANNING 78786 [facility] & OPHTHALMI 8 VITREOUS VITREOUS C IMAGING ASSOCIATE ASSOCIATE S O S O POSTERIOR SGM UNI INJECTION J1100 ERIKA JAMES 8 DON R DON R DEXAMETHO SONE SODIUM PHOSPHATE 1 MG Encounters Encounter Start End Date Code Location Performer Type Date OFFICE 46402 [facility] RHIANNON OUTPATIEN 7 7 PHYSICIAN T VISIT S GROUP 40 MINUTES OFFICE 30436 Darnell ROY OUTPATIEN 7 7 PILAR PLEITEZ T VISIT [facility] 15 MINUTES OFFICE 43308 FATUMA GARRISON OUTPATIEN 7 7 Y OF CK T VISIT [place] 25 HOSPI [facility] LUCY - 7 7 [facility] INPATIENT INC OFFICE 47697 A Kristy ROY OUTPATIRYLEE 7 7 PILAR PLEITEZ T VISIT PSC 15 MINUTES OFFICE 87783 A Kristy ROY OUTGINO 7 7 PILAR PLEITE[place] T VISIT PSC 15 MINUTES [facility] LUCY - [facility] 6 [facility]IEN [facility] T OFFICE 96752 ELIO MAGAÑAICK OUTPATIEN 6 6 MEDICAL JAM T VISIT SERV 25 FOUNDATIO MINUTES N OFFICE 41300 [facility] ALLMIGUEL ANGEL MORALES OUTPATIEN 6 6 PHYSICIAN RITA T VISIT S GROUP 10 MINUTES [facility]OSPITAL LUCY - 6 6 [facility] OUTPATIEN INC T OFFICE 41048 [facility]UCY EVAN OUTPATIEN [address] [facility] 10 P MINUTES OFFICE 82131 [place] OUTPATIEN 6 6 MEDICAL JAM T VISIT SERV 15 FOUNDATIO MINUTES N OFFICE 98899 [facility] ALLRAN JR OUTPATIEN 6 6 PHYSICIAN RITA T VISIT S GROUP 15 MINUTES OFFICE 88606 LUCY EVAN OUTPATIEN 6 6 [facility] 20 HOSPITAL MINUTES HOSPITAL LUCY - 6 6 [facility] OUTPATIEN INC T OFFICE 27552 [facility] ALLRAN JR OUTPATIEN 6 6 PHYSICIAN RITA T NEW 45 S GROUP MINUTES HOSPITAL LUCY - 6 6 [facility] OUTPATIEN INC T OFFICE 59694 [place] OUTPATIEN 6 6 MEDICAL JAM T VISIT SERV 25 FOUNDATIO MINUTES N OFFICE 12783 [place] OUTPATI[place] 6 6 MEDICAL JAM T VISIT SERV 25 FOUNDATIO MINUTES N EMERGENCY 73129 FATUMA WATTERS DEPT 6 6 Y OF MADALYN VISIT [facility] HOSPI SEVERITY& THREAT [facility] LUCY - 6 6 [facility] OUTPATIEN INC T OFFICE 87408 A Kristy ROY JENNA OUTPATIEN 6 6 PILAR PLEITEZ T VISIT PSC 15 MINUTES OFFICE 16136 A Kristy ROY JENNA OUTPATIEN 6 6 PILAR PLEITEZ T VISIT PSC 15 MINUTES OFFICE 04745 [place] OUTPATIEN 6 6 MEDICAL JAM T VISIT SERV 40 FOUNDATIO MINUTES [facility] LUCY - 6 6 [facility] INPATIENT INC OFFICE 14049 [place] OUTPATI[place] 6 6 MEDICAL T VISIT SERV 25 FOUNDATIO MINUTES [facility] LUCY - 6 6 [facility] OUTPATIEN [facility] OFFICE 16150 [place] OUTPATI[place] 6 6 MEDICAL JAM T VISIT SERV 15 FOUNDATIO MINUTES [facility] LUCY - 5 5 [facility] OUTPATIEN [facility] LUCY - 5 5 [facility] OUTPATIEN [facility] LUCY - 5 5 [facility]PATIEN [facility] OFFICE 89220 A C FIELD AMB OUTPATIEN 5 5 PILAR PLEITEZ T VISIT PSC 15 MINUTES OFFICE 87354 A C FIELD AMB OUTPATIEN 4 4 PILAR PLEITEZ T VISIT PSC 15 MINUTES [facility]OSPITAL LUCY - 4 4 [facility] LUC[facility] - 4 4 [facility]PATIEN [facility] LUCY - 4 4 [facility]PAT[facility] LUCY [facility] 4 4 [facility] OUTPAT[facility] LUCY - 4 4 [facility]UC[facility] - 4 4 [facility] LUCY - 4 4 [facility] OFFICE 16222 FIELD AMB FIELD AMB OUTPATIEN 4 4 T VISIT 15 MINUTES OFFICE 94165 FIELD AMB FIELD AMB OUTPATIEN 3 3 T VISIT 15 MINUTES OFFICE 81595 A C FIELD AMB OUTPATIEN 3 3 PILAR PLEITEZ T NEW 30 PSC MINUTES OFFICE 27500 ERIKA WHITLOCKHENS OUTPATIEN 3 3 DON DON T VISIT 15 MINUTES OFFICE 04469 JAMES JAMES OUTPATIEN 3 3 DON DON T VISIT 15 MINUTES [facility]OSPITAL LUCY - 3 3 [facility] 2 [facility] 88430 JAMES [facility]AMES OUTPATIEN 2 2 DON DON T VISIT 15 MINUTES HOSPITAL LUCY - 2 2 [facility] LUC[facility] - 2 2 [facility] [facility] - 2 2 [facility]IEN [facility] OFFICE [id number] J[facility] J[facility] OUTPATIEN 2 2 DON DON T VISIT 15 MINUTES OFFICE 87838 JAMES JAMES OUTPATIEN 1 1 DON DON T VISIT 15 MINUTES OFFICE [id number] JAMES JAMES OUTPATIEN 1 1 DON DON T VISIT 15 MINUTES OFFICE [id number] [facility] OUTPATIEN 1 1 DON DON T VISIT 15 MINUTES OFFICE 28014 [facility] OUTPATIEN 1 1 DON [facility] V[facility] 15 [facility] OFFICE [id number] ERIKA JAMES OUTPATIEN 0 0 DON R DON R T VISIT 15 MINUTES OFFICE [id number] ERIKA JAMES OUTPATIEN 0 0 DON R DON R T VISIT 25 MINUTES OFFICE 77819 ERIKA JAMES OUTPATIEN 0 0 DON R DON R T VISIT 15 MINUTES OFFICE [id number] ERIKA JAMES OUTPATIEN 8 8 DON R DON R T VISIT 15 MINUTES OFFICE [id number] ERIKA JAMES OUTPATIEN 8 8 DON R DON R T VISIT 15 MINUTES OFFICE [id number] ERIKA JAMES OUTPATIEN 8 8 DON R DON R T VISIT 15 MINUTES OFFICE 60415 ERIKA JAMES OUTPATIEN 8 8 DON R DON R T VISIT 15 MINUTES OFFICE 90465 ERIKA JAMES OUTPATIEN 8 8 DON R DON R T VISIT 15 MINUTES
--- OUTSIDE RECORDS SUMMARY | 2016-10-24 17:10 | External Medical Summary Rpt ---
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 Name Role Phone A Kristy QUEZADA MD [...] Unavailable [facility] Unavailable Unavailable SERVICE, [facility] Unavailable Unavailable SERVICE, [facility] Unavailable Unavailable [place], [...] Unavailable Unavailable INC, [facility] Unavailable Unavailable HOSPITAL P, [facility] DONTE RUIZ, Unavailable Unavailable DONTE RUIZ [facility], Unavailable Unavailable [facility] ARMENDARIZ JENNA, ARMENDARIZ JENNA Unavailable Unavailable HUI MIKHAIL, HUI MIKHAIL Unavailable Unavailable BECKY MAR, BECKY Unavailable Unavailable MAR [facility], [facility] NINI, CALLIE W, Unavailable Unavailable NINI, CALLIE W [facility] Unavailable Unavailable [facility] Un[facility] GLENN JR, GLENN JR Unavailable Unavailable GLENN JR DWI, GLENN Unavailable Unavailable JR DWI [facility] Unavailable Unavailable INTERNAL MED, [facility] JAMES CON, JAMES CON Unavailable Unavailable POLLOCK, POLLOCK Unavailable Unavailable POLLOCK JAM, Unavailable Unavailable POLLOCK JAM POLLOCK JAM, Unavailable Unavailable PLOLOCK JAM NELLY KEY, NELLY Unavailable Unavailable KEY [...] PHARM #[id number] [facility] Unavailable Unavailable [id number] # [id number], [facility] [id number] # [id number] SHANELL CAR, Unavailable Unavailable SHANELL [...] JANENE Unavailable Unavailable OTTO BOOTH Unavailable Unavailable [facility], Unavailable Unavailable [facility] HIEU GAMEZ, HIEU Unavailable Unavailable [facility], Unavailable [facility]available [facility], Unavailable [facility]available [facility] MARINA NIXON, Unavailable Unavailable MARINA NIXON Purpose Continuity of Care Document - 04-25-2007 through 2016 Problems Code Diagnosis DOS Provider Status 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 09-11-2016 [facility] E785 HYPERLIPIDE 09-04-2016 [facility] UNSPECIFIED GROUP I119 HYPERTENSIV 09-04-2016 [facility] E HEART PHYSICIANS DISEASE GROUP WITHOUT HEART FAILURE 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 R634 ABNORMAL 01-11-2016 [facility] R1110 VOMITING 01-09-2016 [facility] UNSPECIFIED PHYSICIANS GROUP K828 OTHER 01-02-2016 [facility] SPECIFIED MEDICAL DISEASES OF IMAGING ASS GALLBLADDER R630 ANOREXIA 01-02-2016 [facility] K921 MELENA 11-07-2015 [facility] GROUP K5710 DIVERTICULO 11-03-2015 [facility] SIS SM MEDICAL INTEST W/O IMAGING ASS PERF/ABSC W/O BLEED R195 OTHER FECAL 11-03-2015 [facility] ABNORMALITI IMAGING ASS ES U50601 LYMPHOCYTOS 10-26-2015 MOLE[facility] IS PATHOLOGY SYMPTOMATIC LAB NETW J690 PNEUMONITIS 10-26-2015 [facility] DUE TO SERV INHALATION [facility]OUNDATION OF FOOD AND VOMIT B370 CANDIDAL 10-19-2015 [facility] STOMATITIS SERV FOUND[facility] R112 NAUSEA WITH 10-19-2015 [facility] VOMITING SERV UNSPECIFIED FOUNDATION I509 HEART 10-15-2015 [facility] FAILURE HOME UNSPECIFIED MEDICAL EQUIPME R531 WEAKNESS 09-20-2015 [facility] 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 [facility]ICAL R BLOCK SERV FOUNDATION R9431 ABNORMAL 09-18-2015 [facility] ELECTROCARD SERV IOGRAM FOUNDATION I4510 UNSPECIFIED 09-15-2015 [facility] RIGHT SERV BUNDLE-BRAN FOUNDATION CH BLOCK R001 BRADYCARDIA 09-15-2015 [facility] SERV UNSPECIFIED FOUNDATION B965 PSEUDOMONAS 09-14-2015 [facility] CAUSE OF SERV DZ FOUNDATION CLASSIFIED ELSEWHERE J9600 ACUTE 09-14-2015 [facility] RESPIRATORY SERV FAIL UNS FOUNDATION HYPOXIA/HYP ERCAPNIA J9811 ATELECTASIS 09-14-2015 [facility] C76287 ENCOUNTER 09-14-2015 [facility] SURG SERV AFTERCARE F[facility]ATION FLW SURG DIGESTIVE SYS Z049 ENCOUNTER 09-13-2015 [facility] EXAMINATION SERV &OBSERVATIO FOUNDATION N FOR UNS REASON K5900 CONSTIPATIO 09-12-2015 [facility] N SERV UNSPECIFIED FOUNDATION R140 ABDOMINAL 09-10-2015 [facility] DISTENSION SERV GASEOUS FOUNDATION R0989 OTH SPEC SX 09-09-2015 [facility] & SIGNS SERV INVLV THE FOUNDATION CIRC & RESP SYS R918 OTHER 09-09-2015 [facility] NONSPECIFIC SERV ABNORMAL FOUNDATION FINDING OF LUNG FIELD A419 SEPSIS 09-08-2015 [facility] UNSPECIFIED SERV ORGANISM FOUNDATION E873 ALKALOSIS 09-08-2015 [facility] E876 HYPOKALEMIA 09-08-2015 [facility] J90 PLEURAL 09-08-2015 [facility] EFFUSION SERV NOT FOUNDATION ELSEWHERE CLASSIFIED J9620 ACUTE 09-08-2015 [facility] CHRONIC SERV RESP FAIL FOUNDATION UNS HYPOXIA/HYP ERCAPNIA J984 OTHER 09-08-2015 [facility] DISORDERS SERV OF LUNG FOUNDATION R109 UNSPECIFIED 09-08-2015 [facility] ABDOMINAL SERV PAIN FOUNDATION Z4682 ENCOUNTER 09-08-2015 [facility] ADJUST HOSPI NON-VASCULA R CATHETER 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 SERV UNSPECIFIED FOUNDATION I517 CARDIOMEGAL 09-07-2015 [facility] Y SERV FOUNDATION I5189 OTHER 09-07-2015 [facility] ILL-DEFINED SERV HEART FOUNDATION DISEASES R0902 HYPOXEMIA 09-06-2015 [facility] R0689 OTHER 09-02-2015 [facility] ABNORMALITI SERV ES OF FOUNDATION BREATHING J942 HEMOTHORAX 08-30-2015 [facility] J948 OTHER 08-30-2015 [facility] SPECIFIED SERV PLEURAL FOUNDATION CONDITIONS L538 OTHER 08-30-2015 [facility] SPECIFIED SERV ERYTHEMATOU FOUNDATION S CONDITIONS Z9889 OTHER 08-30-2015 [facility] SPECIFIED SERV POSTPROCEDU FOUNDATION RAL STATES 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 K4030 UNILAT 08-25-2015 [facility] NGUYEN W/OBST HOSPI W/O GANGRN NOT RECUR K4040 UNILAT 08-25-2015 [facility] INGUINAL SERV NGUYEN FOUNDATION W/GANGREN NOT SPEC RECUR 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 ANTICOAGULA NTS R25659 ELEVATED 08-24-2015 [facility] P UNSPECIFIED K4090 UNILAT 08-24-2015 [facility] INGUINAL SERV NGUYEN W/O FOUNDATION OBST/GANGRE N NOT RECUR K5660 UNSPECIFIED 08-24-2015 [facility] INTESTINAL AMBULANCE SERVICE OBSTRUCTION R1031 RIGHT LOWER 08-24-2015 [facility] PAIN HOSPI 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 J189 PNEUMONIA 08-03-2015 [facility] UNSPECIFIED MEDICAL ORGANISM IMAGING ASS J439 EMPHYSEMA 08-03-2015 [facility] UNSPECIFIED [facility] INTERNAL MED J929 PLEURAL 08-03-2015 [facility]QUE MEDICAL WITHOUT IMAGING ASS ASBESTOS R002 PALPITATION 08-03-2015 [facility] S SERV [facility] R031 NONSPECIFIC 08-03-2015 [facility] LOW SERV BLOOD-PRESS FOUNDATION URE READING R42 DIZZINESS 08-03-2015 [facility] AND SERV GIDDINESS [facility] 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 08-03-2015 [facility] [place] SUPPLEMENTA INTERNAL L OXYGEN MED J42 UNSPECIFIED 07-13-2015 [facility] CHRONIC MEDICAL BRONCHITIS IMAGING ASS Z7722 CONTACT W/ 07-13-2015 [facility] & SUSPECTED SERV EXPOS [facility] ENVIR TOBACCO SMOKE J40 BRONCHITIS 03-25-2015 [facility] NOT MEDICAL SPECIFIED IMAGING ASS ACUTE OR CHRONIC R091 PLEURISY 01-21-2015 [facility] 4280 CONGESTIVE 01-14-2015 [facility] HE[facility] HOME FAILURE MEDICAL UNSPECIFIED EQUIPME 14041 OBSTRUCTIVE 01-14-2015 [facility] WITHOUT EXACERBAT 496 CHRONIC 01-14-[address] [facility] [address] HOME OBSTRUCTION MEDICAL NEC EQUIPME 68630 NUCLEAR 12-28-2014 [facility] SCLEROSIS JAMILAH 70862 OBST 09-06-2014 A Kristy QUEZADA CHRONIC PSC BRONCHITIS W/ACUTE BRONCHITIS 10100 LOSS OF 09-06-2014 A Kristy QUEZADA WEIGHT PSC 31303 OTHER CHEST 09-06-2014 A Kristy QUEZADA PAIN PSC 54956 OBSTRUCTIVE 09-05-2014 [facility] SLEEP HOME APNEA MEDICAL EQUIPME 7242 LUMBAGO 04-01-2014 A Kristy QUEZADA MD PSC V0382 NEED PROPH 04-01-2014 A Kristy QUEZADA VACCINATION PSC AGAINST STREP PNEUMONE 72938 ATRIAL 01-13-2014 [facility] FIBRILLATIO [facility] N INC 46578 REFLUX 01-13-2014 [facility] ESOPHAGITIS [facility] INC 19815 UNS 01-13-2014 [facility] GASTRITIS&G [facility] ASTRODUODIT INC IS W/O MENTION HEMORR 75461 ABDOMINAL 01-13-2014 [facility] PAIN, [facility] GENERALIZED INC V5869 LONG-TERM 01-13-2014 [facility] (CURRENT) [facility] USE OF INC OTHER MEDICATIONS 53810 CHEST PAIN 11-24-2013 [facility] UNSPECIFIED [facility] INC 5110 PLEURISY 10-29-2013 [facility] WITHOUT MEDICAL MENTION IMAGING ASS EFFUS/CURRE NT TB 7862 COUGH 10-29-2013 [facility] 03597 INSOMNIA 12-16-2012 A Kristy ANDREAIFIED PSC 62816 OTHER 12-16-2012 Darnell QUEZADA MALAISE AND PSC FATIGUE 88543 FEVER 05-23-2012 J[facility] UNSPECIFIED DON 00462 WHEEZING 05-23-2012 JAMES DON 1120 CANDIDIASIS 05-21-2012 JAMES OF MOUTH DON 17087 OTHER 05-21-2012 FRANCESCA DISEASES OF EMY LUNG NOT ELSEWHERE CLASSIFIED 4940 BRONCHIECTA 01-28-2012 [facility] SIS WITHOUT MEDICAL ACUTE IMAGING ASS EXACERBATIO N 5119 UNSPECIFIED 01-28-2012 [facility] PLEURAL MEDICAL EFFUSION IMAGING ASS 21029 OTHER 01-28-2012 [facility] NONSPECIFIC [facility] ABNORMAL INC FINDING OF LUNG FIELD 81770 OSTEOARTHRO 01-02-2012 JAMES S INVLV MX DON [place]ITES [place] [address] OBSTRUCTIVE 11-12-2011 [facility] CHRONIC [facility] BRONCHITIS INC WITH EXACERBATIO N 01516 ESOPHAGEAL 11-12-2011 [facility] REFLUX [facility] INC 2859 UNSPECIFIED 10-05-2011 [facility] ANEMIA [facility] 5180 PULMONARY 10-05-2011 [facility] COLLAPSE MEDICAL IMAGING ASS 486 PNEUMONIA, 09-28-2011 [facility] ORGANISM MEDICAL UNSPECIFIED IMAGING ASS 5070 PNEUMONITIS 09-28-2011 [facility] DUE TO JAM INHALATION OF FOOD OR VOMITUS 36629 SHORTNESS 09-28-2011 [facility] OF BREATH [facility] INC 72813 ABDOMINAL 09-28-2011 [facility] PAIN, MEM [facility]OS[facility] EPIGASTRIC INC V1261 PERSONAL 09-28-2011 [facility] HISTORY JAM PNEUMONIA RECURRENT 95033 PNEUMONIA 06-08-2011 JAMES DUE TO DON OTHER SPECIFIED BACTERIA 2724 OTHER AND 05-11-2011 [facility] UNSPECIFIED PHYSICIANS [place] HYPERLIPIDE WILMRA 2768 HYPOPOTASSE 05-11-2011 [facility] [place] 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 6019 UNSPECIFIED 05-11-2011 [place] [address] PAIN IN 05-11-2011 COMBINED JOINT, PHYSICIANS MULTIPLE LA SITES 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 5183 PULMONARY 11-28-2009 [facility] A 15883 ACUTE 11-28-2009 [facility] RESPIRATORY SERV FAILURE [facility] 7856 ENLARGEMENT 11-28-2009 [facility] NODES 7931 NONSPEC 11-28-2009 [place] [facility] FIND RAD SERV OTH EXAM [facility] BODY STRUCT LUNG FIELD V1582 PERS HX 11-28-2009 [facility] TOBACCO USE [facility] PRESENTING [facility]AR[facility] V7282 PRE-OPERATI 11-28-2009 [facility] MEDICAL VE SERV RESPIRATORY [facility]IO EXAMINATION 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 13207 DYSPHAGIA 11-18-2009 [facility] UNSPECIFIED MEDICAL IMAGING ASS 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, 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 ATORY DON R PULMONARY FIBROSIS 33325 OSTEOARTHRO 08-23-2009 ERIKA, SIS UNSPEC DON R WHETHER GEN/LOC LOWER LEG 38493 OSTEOARTHRO 08-23-2009 ERIKA S UNSPEC DON R GEN/LOC OTH SPEC SITES 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 MACULAR 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 RUIZ A N OF RETINA UNSPECIFIED 57804 NONEXUDATIV 07-20-2008 RET[facility] & 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 82239 EXUDATIVE 07-20-2008 [facility] & SENILE [facility] DEGENERATIO O N OF RETINA 96509 CRYSTALLINE 07-20-2008 RETINA & DEPOSITS VITREOUS IN VITREOUS ASSOCIATES O 4610 ACUTE 02-27-2008 JAMES, MAXILLARY DON R SINUSITIS 4659 ACUTE URIS 02-27-2008 ERIKA, OF DON R UNSPECIFIED SITE 8472 LUMBAR 11-14-2007 JAMES, SPRAIN AND DON R STRAIN 4660 ACUTE 08-02-2007 JAMES, BRONCHITIS DON R 4871 INFLUENZA 07-04-2007 ERIKA, WITH OTHER DON R RESPIRATORY MANIFESTATI ONS 00540 PAIN IN 04-25-2007 JAMES, JOINT, DON R SHOULDER REGION 82584 UNSPECIFIED 04-25-2007 JAMES, SYNOVITIS DON R AND [...] ET 03 93 8 # 03 93 [place] 00 04 04 00 12 6 RI [...] YOUR TO 2.5 7 PHARMACY PHARMACY [facility] IPRATROPI UM BROM TO 0.5 MG ALBUTEROL J7620 A C A C TO 2.5 7 PILAR QUEZADA MD MG & PSC PSC IPRATROPI UM BROM TO 0.5 MG ECG 04642 [facility] ROUTINE 7 PHYSICIAN ECG S GROUP W/LEAST 12 LDS I&R ONLY R & L HRT 01136 [facility] CATH 7 PHYSICIAN WINJX HRT S GROUP ART& L VENTR IMG RADIOLOGI 84900 [facility] C 7 MEDICAL EXAMINATI IMAGING ON CHEST ASS SINGLE VIEW FRONTAL ECG 03887 [facility] ELIZABETH ROUTINE 7 [facility] W/LEAST P 12 LDS I&R ONLY ALBUTEROL J7620 YOUR YOUR TO 2.5 7 PHARMACY PHARMACY [facility] IPRATROPI UM BROM TO 0.5 MG ADMN SET A7003 YOUR YOUR SM VOL 7 PHARMACY PHARMACY Medstro PNEUMAT NEBULIZR DISPBL O2 CONC 1 E1390 [facility] DEL PORT 7 HOME HOME 85%/>02 MEDICAL MEDICAL CONC AT EQUIPME EQUIPME PRSC FLW RATE O2 CONC 1 E1390 [facility] [place] 7 HOME HOME 85%/>02 MEDICAL MEDICAL CONC AT EQUIPME EQUIPME PRSC FLW RATE RADIOLOGI 39295 [facility] C EXAM 7 MEDICAL MEDICAL [...] DAYS O2 CONC 1 E1390 [facility] 6 HOME HOME 85%/>02 MEDICAL MEDICAL CONC [facility] G0463 [facility] B[facility]ON OUTPATIEN 6 [facility] T CLIN INC INC VISIT ASSESS & MGMT PT O2 CONC 1 E1390 [facility] [place] [address] HOME HOME 85%/>02 MEDICAL MEDICAL CONC AT [facility] FLW RATE COMPREHEN 11512 [facility] AYALA SIVE 6 MEM HOS[facility] MEM HOS[facility] METABOLIC INC INC PANEL BLOOD 38856 [facility] COUNT 6 [facility]OS[facility] COMPLETE INC INC AUTO&AUTO DIFRNTL WBC COLLECTIO 63277 [facility] A[facility]AL[facility] N VENOUS 6 [facility] [place] [address] [facility] ABDOMEN 6 [facility] W/CONTRAS INC INC T MATERIAL LOCM Q9967 L[facility] AYALA [phone] 6 [facility]OS[facility] MG/ML INC INC IODINE CONCENTRA TION PER ML ANES 96374 [facility] UPPER GI 6 ANESTH PALMA ENDOSCOPY OF THE PROXIMAL BLUE TO DUODENUM O2 CONC 1 E1390 [facility] [place] [address] HOME HOME 85%/>02 MEDICAL MEDICAL CONC AT [facility] FLW RATE RADEX 51338 [facility] FONTANEZ ALL UPPER GI 6 MEDICAL W/WO IMAGING GLUCAGON/ ASS DELAY IMGES W/O KUB O2 CONC 1 E1390 [facility] PENA [facility] 6 HOME MAR 85%/>02 MEDICAL CONC AT [facility] FLW RATE RADEX 94007 [facility] AYALA UPPER GI 6 MEM HOSP MEM HOSP W/WO INC INC GLUCAGON/ DELAY IMAGES W/KUB COLLECTIO 24368 [facility] A[facility]AL[facility] N VENOUS 6 MEM HOSP MEM HOSP BLOOD INC INC VENIPUNCT URE FLOW 03792 [facility] A[facility] CYTOMETRY 6 MEM HOSP MEM HOSP CELL INC INC SURF MARKER TECHL ONLY EA FLOW 84185 MOLECULAR MOLECULAR CYTOMETRY 6 INTERPJ PATHOLOGY PATHOLOGY 2-8 LAB NETW LAB NETW MARKERS FLOW 57353 [facility] AYALA CYTOMETRY 6 MEM HOSP MEM [...] FOLDING 6 WHEELED ADJUSTABL E/FIXED HEIGHT ECG 35965 [facility] ROUTINE 6 MEDICAL ECG SERV W/LEAST FOUNDATIO 12 LDS N I&R ONLY ECG 13958 [place] PELAE[facility] ROUTINE 6 MEDICAL NAN ECG SERV W/LEAST FOUNDATIO 12 LDS N I&R ONLY SBSQ 30657 [facility] 6 MEDICAL KEYANA CARE/DAY SERV 25 FOUNDATIO MINUTES N RADIOLOGI 96747 [place] JAMES CON C 6 MEDICAL EXAMINATI SERV ON CHEST FOUNDATIO SINGLE N VIEW FRONTAL RADIOLOGI 33912 [place] WILLIEK C 6 MEDICAL AYA MAR EXAMINATI SERV ON CHEST FOUNDATIO SINGLE N VIEW FRONTAL SBSQ 65105 [facility] 6 MEDICAL KEYANA CARE/DAY SERV 15 FOUNDATIO MINUTES N SBSQ 23976 [facility] 6 MEDICAL KEYANA CARE/DAY SERV 15 FOUNDATIO MINUTES N RADIOLOGI 78566 [place] JENNA C 6 MEDICAL EXAMINATI SERV ON CHEST FOUNDATIO SINGLE N VIEW FRONTAL RADIOLOGI 43770 [facility] 6 MEDICAL EXAMINATI SERV ON CHEST FOUNDATIO SINGLE N VIEW FRONTAL SBSQ 49491 [facility] 6 MEDICAL CARE/DAY SERV 25 FOUNDATIO MINUTES N SBSQ 16497 [place] [facility] 6 MEDICAL CARE/DAY SERV 25 FOUNDATIO MINUTES N RADIOLOGI 78282 [place] MA[facility]MO[facility] LEATHA C 6 MEDICAL EXAMINATI SERV ON CHEST FOUNDATIO SINGLE N VIEW FRONTAL RADEX 23835 [place] [facility] ABDOMEN 1 6 MEDICAL SUSAN SERV ANTEROPOS FOUNDATIO TERIOR N VIEW ECG 60808 [place] [facility] ROUTINE 6 MEDICAL ECG SERV W/LEAST FOUNDATIO 12 LDS N I&R ONLY ECG 91899 [facility] ROUTINE 6 MEDICAL ECG SERV W/LEAST FOUNDATIO 12 LDS N I&R ONLY RADEX 74799 [facility] SH[facility] ABDOMEN 1 6 Y OF CAR TEX ANTEROPOS HOSPI TERIOR VIEW RADIOLOGI 88702 [place] MAHMOOD [facility] C 6 MEDICAL EXAMINATI SERV ON CHEST FOUNDATIO SINGLE N [place]IEW FRONTAL CRITICAL 95103 [place] [facility] CARE 6 MEDICAL ILL/INJUR SERV ED FOUNDATIO PATIENT N INIT 30-74 MIN SBSQ 59537 [place] [facility] 6 MEDICAL CARE/DAY SERV 25 FOUNDATIO MINUTES N RADIOLOGI 92545 [place] [facility] C 6 MEDICAL AYA MAR EXAMINATI SERV ON CHEST FOUNDATIO SINGLE N [place] FRONTAL CT THORAX 23918 [place] JAMES CON 6 MEDICAL W/CONTRAS SERV T FOUNDATIO MATERIAL N RADEX 97725 [facility] ABDOMEN 1 6 Y [place] [address] [place] REYEZ CLEO ABDOMEN & 6 MEDICAL PELVIS SERV W/CONTRAS FOUNDATIO T N MATERIAL ECG 62793 [place] [facility] ROUTINE 6 MEDICAL ECG SERV W/LEAST FOUNDATIO 12 LDS N I&R ONLY ECHO 55807 [place] [facility] TTH[facility] R-T 6 MEDICAL ERIKA 2D SERV W/WOM-MOD FOUNDATIO E COMPL N SPEC&COLR D RADEX ABD 66539 [place] PAULA COMPL 6 MEDICAL JURGEN AQT ABD SERV ANNEL W/S/E/D FOUNDATIO VIEWS 1 N VIEW CH RADIOLOGI 65883 [place] JAMES QUISPE C 6 MEDICAL EXAMINATI SERV ON CHEST FOUNDATIO SINGLE N VIEW FRONTAL SBSQ 57541 [facility] 6 MEDICAL AND CARE/DAY SERV 25 FOUNDATIO MINUTES N INITIAL 76811 [facility] 6 MEDICAL SUN KAYODE CARE/DAY SERV 30 FOUNDATIO MINUTES N SBSQ 66218 [facility] 6 MEDICAL AND CARE/DAY SERV 25 FOUNDATIO MINUTES N RADIOLOGI 92059 [place] J[facility] CON C 6 MEDICAL EXAMINATI SERV ON CHEST FOUNDATIO SINGLE N [place]IEW FRONTAL RADIOLOGI 47288 [place] JAMES CON C 6 MEDICAL EXAMINATI SERV ON CHEST FOUNDATIO SINGLE N [place]IEW FRONTAL ECG 24979 [place] [facility] CH[facility] ROUTINE 6 MEDICAL ECG SERV W/LEAST FOUNDATIO 12 LDS N I&R ONLY RADEX 04668 [facility] ABDOMEN 1 6 Y OF CAR [facility] ANTEROPOS HOSPI [place] RADIOLOGI 01825 [place] JONAHGUROVSK C 6 MEDICAL AYA MAR EXAMINATI SERV ON CHEST FOUNDATIO SINGLE N VIEW FRONTAL RADIOLOGI 65480 [place] ROBBINS C 6 MEDICAL JESS EXAMINATI SERV ON CHEST FOUNDATIO SINGLE N VIEW FRONTAL RADEX 47728 [place] ZAGUROVSK ABDOMEN 1 6 MEDICAL AYA MAR SERV ANTEROPOS FOUNDATIO TERIOR N VIEW RADEX 88379 [facility] ABDOMEN 1 6 Y OF CAR [facility] ANTEROPOS HOSPI [place]IOR [place] RADIOLOGI 87266 [place] ZAGUROVSK C 6 MEDICAL AYA MAR EXAMINATI SERV ON CHEST FOUNDATIO SINGLE N [place] FRONT[place] THORAX 86175 [place] ARMENDAR[facility] JENNA 6 MEDICAL W/[place] [address] [place] AYOOB AND ABDOMEN & 6 MEDICAL PELVIS SERV W/CONTRAS FOUNDATIO T N MATERIAL RADEX 00920 [facility] ABDOMEN 1 6 Y OF CAR [facility] ANTEROPOS HOSPI TERIOR [place]IEW SBSQ 74011 [facility] 6 MEDICAL AND CARE/DAY SERV 25 FOUNDATIO MINUTES N SBSQ 23676 [facility] 6 MEDICAL AND CARE/DAY SERV 25 FOUNDATIO MINUTES N RADIOLOGI 47108 [place] DELL CAR C 6 MEDICAL EXAMINATI SERV ON CHEST FOUNDATIO SINGLE N [place]IEW FRONTAL RADIOLOGI 49660 [place] JAMES CON C 6 MEDICAL EXAMINATI SERV ON CHEST FOUNDATIO SINGLE N VIEW FRONTAL ECG 68402 [place] PELAE[facility] ROUTINE 6 MEDICAL NAN ECG SERV W/LEAST FOUNDATIO 12 LDS N I&R ONLY ECG 08043 [place] HUI MIKHAIL ROUTINE 6 MEDICAL ECG SERV W/LEAST FOUNDATIO 12 LDS N [place] [address] [place] HIEU SURG 6 MEDICAL FRANCO PATHOLOGY SERV FOUNDATIO GROSS&JESS N ROSCOPIC EXAM SBSQ 44475 [facility] 6 MEDICAL RONNY CARE/DAY SERV 25 FOUNDATIO MINUTES N ARTL 76918 [facility] CATH/CAN 7 Y OF Y OF NULJ [facility] MNTR/[facility] HOSPI SFUSION SPX PRQ RPR 1ST 63934 [facility] 6 MEDICAL RONNY HRNA AGE SERV 5 YRS/> FOUNDATIO INCARCERA N KISHOR ANESTHESI 20064 [facility] BET A HERNIA 7 Y OF REPAIR [facility] ABDOMEN NOS LEVEL III 08885 [place] [facility] SURG 6 MEDICAL FRANCO PATHOLOGY SERV FOUNDATIO GROSS&JESS N ROSCOPIC EXAM ECG 26812 [facility] ROUTINE 6 [facility] ECG INC INC W/LEAST 12 LDS TRCG ONLY W/O I&R [place] [address] [facility] FONTANEZ ALL ABDOMEN & 6 MEDICAL PELVIS IMAGING W/[place] [address] [facility] AMYLASE 6 [facility] INC INC CREATINE 52216 [facility] KINASE MB 6 [facility] FRACTION INC INC ONLY BLOOD 22517 [facility] COUNT 6 [facility] COMPLETE INC INC AUTO&[place] [address] [facility] TROPONIN 6 [facility] QUANTITAT INC INC ARCENIO RADIOLOGI 29656 [facility] FONTANEZ ALL C 6 MEDICAL EXAMINATI IMAGING [place] [address] [facility] LIPASE 6 [facility] INC INC CREATINE 34713 L[facility] KINASE 6 [facility] TOTAL INC INC THER 15662 LUC[facility]AL[facility] PROPH/DX 6 [facility] NJX EA INC INC SEQL IV PUSH SBST/DRUG FAC INJECTION J2405 LUCYJOAN BOBON 6 [facility] ONDANSETR INC INC ON HCL PER 1 MG INJ J2543 [facility] PIPERACIL 6 [facility] YONATHAN INC INC SOD/TAZOB ACTAM SOD 1 G/0.125 G COMPREHEN 90132 LUC[facility] A[facility]AL[facility] SIVE 6 [facility] METABOLIC INC INC PANEL ECG 47900 LUCY BEVERLY ROUTINE 6 [facility] W/LEAST P 12 LDS I&[place] [address] LUCY AYALA INFUSION 6 [facility] THERAPY/P INC INC ROPHYLAXI S /DX 1ST TO 1 HR GROUND A0425 [facility] 6 AMBULANCE AMBULANCE PER SERVICE SERVICE STATUTE MILE AMBULANCE [id number] [facility] SERVICE 6 AMBULANCE AMBULANCE BLS SERVICE SERVICE EMERGENCY TRANSPORT INITIAL [address] CARE/DAY SERV 50 FOUNDATIO MINUTES N BLOOD 65460 Darnell ROY JENNA COUNT 6 PILAR PLEITEZ COMPLETE PSC AUTO&AUTO DIFRNTL WBC COLLECTIO 71072 Darnell WEST N VENOUS 6 PILAR PLEITEZ BLOOD PSC VENIPUNCT URE NEBULIZER E0570 [facility] WITH 6 HOME HOME COMPRESSO MEDICAL MEDICAL R EQUIPME EQUIPME ECG 11270 LUCY BEVERLY ROUTINE 6 [facility] W/LEAST P 12 LDS I&R ONLY RADIOLOGI 56877 [facility] FRANCESCA 6 MEDICAL EMY EXAMINATI IMAGING ON CHEST ASS SINGLE VIEW FRONTAL INITIAL [address] CARE/DAY INTERNAL 70 MED MINUTES NEBULIZER E0570 [facility] WITH 6 HOME HOME COMPRESSO MEDICAL MEDICAL R EQUIPME EQUIPME COMPREHEN 80735 [facility] METABOLIC INC INC PANEL RADIOLOGI 07255 [facility] C EXAM 6 [facility] CHEST 2 INC INC VIEWS FRONTAL&L ATERAL RADIOLOGI 00473 [facility] ESTEE ALL C 6 MEDICAL EXAMINATI IMAGING ON CHEST ASS SINGLE VIEW FRONTAL BLOOD 34892 LUCY A[facility]AL[facility] COUNT 6 [facility] COMPLETE INC INC AUTO&AUTO DIFRNTL WBC COLLECTIO 50899 LUCY AYALA N VENOUS 6 [facility] BLOOD INC INC VENIPUNCT URE ADMN SET A7003 YOUR YOUR SM VOL 6 PHARMACY PHARMACY NONFILTR Connolly PNEUMAT NEBULIZR DISPBL ALBUTEROL J7620 YOUR YOUR TO 2.5 6 PHARMACY PHARMACY Elastera IPRATROPI UM BROM TO 0.5 MG PHRM Q0513 YOUR YOUR DISPENSIN 6 PHARMACY PHARMACY [facility] INHALATIO N RX; PER 30 DAYS NEBULIZER E0570 MILDRED BARBERRELL WITH 6 HOME HOME COMPRESSO MEDICAL MEDICAL R EQUIPME EQUIPME NEBULIZER E0570 MILDRED LEVY WITH 6 HOME HOME [facility] R EQUIPME EQUIPME ALBUTEROL J7620 YOUR YOUR TO 2.5 5 PHARMACY PHARMACY Elaster[facility] IPRATROPI UM BROM TO 0.5 MG PHRM Q0513 YOUR YOUR DISPENSIN 5 PHARMACY PHARMACY [facility] INHALATIO N RX; PER 30 DAYS RADIOLOGI 76591 [facility] FONTANEZ ALL C EXAM 5 MEDICAL CHEST 2 IMAGING VIEWS ASS FRONTAL&L ATERAL CT THORAX 71035 [facility]RE FONTANEZ ALL 5 MEDICAL W/CONTRAS IMAGING T ASS MATERIAL RADIOLOGI 96786 [facility]RE ESTEE ALL C EXAM 5 MEDICAL CHEST 2 IMAGING VIEWS ASS FRONTAL&L ATERAL NEBULIZER E0570 MILDRED LEVY WITH 5 HOME HOME COMPRESSO MEDICAL MEDICAL R EQUIPME EQUIPME PHARM G0333 YOUR YOUR DISPEN 5 PHARMACY PHARMACY [employer] RX; INITIAL 30-DAY SUPPLY ALBUTEROL J7620 YOUR YOUR TO 2.5 5 PHARMACY PHARMACY [facility] IPRATROPI UM BROM TO 0.5 MG CATARACT 99169 [facility] REMOVAL 5 JAMILAH JAMILAH INSERTION [...] EQUIPME EQUIPME ARWAY PRESS DEVICE EA POLYSOM 90711 NEERAJ KERN MAR 6/>YRS 4 SLEEP 4/> NEUROSCIE ADDL NCES CENT AMA ATTND POLYSOM 98454 LUCY AYALA 6/>YRS 4 [facility] SLEEP 4/> INC INC ADDL AMA ATTND IMC/IMC G0461 LUCY AYALA PER 4 [facility] SPECIMEN; INC INC 1ST SNGL/MPX ANTIBODY STN SPECIAL 00234 LUCY AYALA STAIN 4 [facility] GROUP 1 INC INC MICROORGA NISMS I&R SPCL STN 28338 LUCY AYALA 2 I&R 4 [facility] EXCPT INC INC MICROORG/ ENZYME/[place] [address] LUCY AYALA INFUSION 4 [facility] THERAPY INC INC PROPHYLAX IS/[place] L[place] [address] LUCY AYALA SURG 4 [facility] PATHOLOGY INC INC GROSS&[place] [address] LUCY A[facility]ALA INFUSION 4 [facility] THERAPY/P INC INC ROPHYLAXI S /DX 1ST TO 1 HR SPMTRY 05638 LUC[facility]AL[facility] W/VC 4 [facility] EXPIRATOR INC INC Y ALFREDO W/WO MXML VOL VNTJ ECHO 90485 LUCY AYALA TTHRC R-T 4 [facility] 2D INC INC W/WOM-MOD E COMPL SPEC&COLR D MYOCARDIA 59079 LUCY AYALA L SPECT 4 [facility] MULTIPLE INC INC STUDIES CV STRS 31181 GLENN JR GLENN JR TST 4 DWI DWI XERS&/OR RX CONT ECG I&R ONLY CV STRS 95947 KEITH PARKER JOSH TST 4 XERS&/OR RX CONT ECG W/O I&R MYOCARDIA 98444 TEX MA L 4 MEDICAL EMY PERFUSION IMAGING PLANAR ASS MULTIPLE STUDIES RADIOLOGI 22614 [facility]RE FRANCESCA C EXAM 4 MEDICAL EMY CHEST [...] SONE ACETATE & PHOSPHATE 3 MG RADIOLOGI 90262 LUCY AYALA C EXAM 3 [facility] [...] EQUIPME EQUIPME FLWMTR HUMIDFR&M ASK CT THORAX 20635 [facility]RE FRANCESCA W/O 2 MEDICAL EMY CONTRAST IMAGING MATERIAL ASS 3D 95418 [facility]RE FRANCESCA RENDERING 2 MEDICAL EMY IMAGING W/INTERP& ASS POSTPROC DIFF WORK STATION PRTBLE E0431 MILDRED MILDRED GASEOUS 2 HOME HOME O2 SYS MEDICAL MEDICAL RENT; EQUIPME EQUIPME FLWMTR HUMIDFR&M ASK TOBACCO 20808 JAMES JAMES USE 2 DON DON CESSATION INTERMEDI ATE 3-10 MINUTES PRTBLE E0431 MILDRED MILDRED GASEOUS 2 HOME HOME O2 SYS MEDICAL MEDICAL RENT; EQUIPME EQUIPME FLWMTR HUMIDFR&M ASK PRTBLE E0431 MILDRED MILDRED GASEOUS 2 HOME HOME O2 SYS MEDICAL MEDICAL RENT; EQUIPME EQUIPME FLWMTR HUMIDFR&M ASK SPMTRY 25239 MARIS POLLOCK W/VC 2 JAM JAM EXPIRATOR Y ALFREDO W/WO MXML VOL VNTJ RADIOLOGI 02249 [facility] FRANCESCA C EXAM 2 MEDICAL EMY CHEST 2 IMAGING VIEWS ASS FRONTAL&L ATERAL PRTBLE E0431 MILDRED MILDRED GASEOUS 2 HOME HOME O2 SYS MEDICAL MEDICAL RENT; EQUIPME EQUIPME FLWMTR HUMIDFR&M ASK CT THORAX 48151 LUCY A[facility]AL[facility] W/O 2 [facility] CONTRAST INC INC MATERIAL SMR PRIM 53978 LUCY AYALA SRC 2 [facility] GRAM/GIEM INC INC SA STAIN BCT FUNGI/VAHID L RADIOLOGI 04075 LUCY AYALA C EXAM 2 [facility] CHEST 2 INC INC VIEWS FRONTAL&L ATERAL CYTP 60356 PATHOLOGY PATHOLOGY SLCTV 2 & & CELL CYTOLOGY CYTOLOGY ENHANCEME LAB LAB NT INTERPJ XCPT C/V NONINVASI 58228 LUCY A[facility]ALA VE 2 [facility] EAR/PULSE [place] [address] LUCY AYALA GUIDANCE 2 [facility] NEEDLE INC INC PLACEMENT CUL BACT 22841 LUCY AYALA XCPT 2 [facility] URINE INC INC BLOOD/STO OL AEROBIC ISOL CULTURE 27812 LUCY A[facility]ALA BACTERIAL 2 [facility] ANY INC INC SOURCE ANAEROBIC ISO&ID CULTURE 60235 LUCY AYALA TUBERCLE/ 2 [facility] OTH INC INC ACID-FAST BACILLI ANY ISOL TISS FRED 80700 LUCY AYALA SLIDE 2 [facility] SAMPS INC INC SKN/HR/NL S FNGI/ECTO PARASIT COLLECTIO 53698 LUCY AYALA N VENOUS 2 [facility] [place] [address] LUCY AYALA IRON 2 [facility] INC INC CARBOXYHE 56023 LUCY AYALA MOGLOBIN 2 [facility] QUANTITAT INC INC ARCENIO CYANOCOBA 76559 LUCY AYALA BETTIE 2 [facility] VITAMIN INC INC B-12 THORACENT 56163 LUCY AYALA ESIS 2 [facility] PUNCTURE INC INC PLEURAL CAVITY ASPIRATIO N BLOOD 35586 LUCY AYALA GASES ANY 2 [facility] INC INC COMBINATI ON PH PCO2 PO2 CO2 HCO3 GLUCOSE 06310 LUCY AYALA BODY 2 [facility] FLUID INC INC OTHER THAN BLOOD IRON 86852 LUCY AYALA BINDING 2 [facility] CAPACITY INC INC LACTATE 44468 LUCY AYALA DEHYDROGE 2 [facility] NASE LDH INC INC PROTEIN 73054 LUCY AYALA XCPT 2 [facility] REFRACTOM INC INC ETRY SERUM PLASMA/WH L BLD CELL 60527 LUCY AYALA COUNT 2 [facility] MISC BODY INC INC FLUIDS W/DIFFERE NTIAL COUNT SPUTUM 65921 LUCY AYALA OBTAINING 2 [facility] SPEC INC INC AEROSOL INDUCED [place] SPX ECG 29928 LUCY AYALA ROUTINE 2 [facility] ECG INC INC W/LEAST 12 LDS TRCG ONLY W/O I&R 3D 99414 NEW HAMPSHIRE FRANCESCA RENDERING 2 MEDICAL EMY IMAGING W/INTERP& ASS POSTPROC DIFF WORK STATION ECG 78969 RUSH BEVERLY ROUTINE 2 JENNA JENNA ECG W/LEAST 12 LDS I&R ONLY CT THORAX 71837 LUCY A[facility]ALA W/O 2 [facility] CONTRAST INC INC MATERIAL PRTBLE E0431 MILDRED MILDRED GASEOUS 2 HOME HOME O2 SYS MEDICAL MEDICAL RENT; EQUIPME EQUIPME FLWMTR HUMIDFR&M ASK PRTBLE E0431 MILDRED MILDRED GASEOUS 2 HOME HOME O2 SYS MEDICAL MEDICAL RENT; EQUIPME EQUIPME FLWMTR HUMIDFR&M ASK SPMTRY 54149 LUC[facility] A[facility]ALA W/VC 2 [facility] EXPIRATOR INC INC Y ALFREDO W/WO MXML VOL VNTJ PRTBLE E0431 MILDRED MILDRED GASEOUS 2 HOME HOME O2 SYS MEDICAL MEDICAL RENT; EQUIPME EQUIPME FLWMTR HUMIDFR&M ASK PRTBLE E0431 MILDRED MILDRED GASEOUS 2 HOME HOME O2 SYS MEDICAL MEDICAL RENT; EQUIPME EQUIPME FLWMTR HUMIDFR&M ASK RADIOLOGI 72583 ERIKA JAMES C EXAM 2 DON DON CHEST 2 VIEWS FRONTAL&L ATERAL CT THORAX 96653 [place]AMPSHIRE FRANCESCA 2 MEDICAL EMY W/CONTRAS IMAGING T ASS MATERIAL COMPREHEN 50087 COMBINED COMBINED SIVE 2 PHYSICIAN PHYSICIAN METABOLIC S LA S LA PANEL BLOOD 06149 COMBINED COMBINED COUNT 2 PHYSICIAN PHYSICIAN COMPLETE S LA S LA AUTO&[place] [address] COMBINED COMBINED PROSTATE 2 PHYSICIAN PHYSICIAN SPECIFIC S LA S LA ANTIGEN TOTAL LIPID 28417 COMBINED COMBINED PANEL 2 PHYSICIAN PHYSICIAN S [...] 85%/>02 EQUIP. L EQUIP. L CONC AT [facility] FLW RATE O2 CONC 1 E1390 MIL[place] 1 HOME MED HOME MED 85%/>02 EQUIP. L EQUIP. L CONC AT PRS FLW RATE PRTBLE E0431 MILDRED LEVY GASEOUS 1 HOME MED HOME MED O2 SYS EQUIP. L EQUIP. L RENT; [facility] HUMIDFR&M ASK PRTBLE E0431 MILDRED LEVY GASEOUS 1 HOME MED HOME MED O2 SYS EQUIP. L EQUIP. L RENT; [facility] HUMIDFR&M ASK O2 CONC 1 E1390 MILDR[place] 1 HOME MED HOME MED 85%/>02 EQUIP. L EQUIP. L CONC AT [facility] FLW RATE O2 CONC 1 E1390 MIL[place] 1 HOME MED HOME MED 85%/>02 EQUIP. L EQUIP. L CONC AT [facility] FLW RATE PRTBLE E0431 MILDRED LEVY GASEOUS 1 HOME MED HOME MED O2 SYS EQUIP. L EQUIP. L RENT; [facility] HUMIDFR&M ASK PRTBLE E0431 MILDRED LEVY GASEOUS 1 HOME MED HOME MED O2 SYS EQUIP. L EQUIP. L RENT; [facility] HUMIDFR&M ASK O2 CONC 1 E1390 MILDRED LEVY [facility] 1 HOME MED HOME MED 85%/>02 EQUIP. L EQUIP. L CONC AT [facility] FLW RATE PRTBLE E0431 MILDRED LEVY GASEOUS 0 HOME MED HOME MED O2 SYS EQUIP. L EQUIP. L RENT; [facility] HUMIDFR&M ASK O2 CONC 1 E1390 [place] 0 HOME MED HOME MED 85%/>02 EQUIP. L EQUIP. L CONC AT [facility] FLW RATE O2 CONC 1 E1390 [place] 0 HOME MED HOME MED 85%/>02 EQUIP. L EQUIP. L CONC AT [facility] FLW RATE PRTBLE E0431 MILDRED LEVY GASEOUS 0 HOME MED HOME MED O2 SYS EQUIP. L EQUIP. L RENT; [facility] HUMIDFR&M ASK O2 CONC 1 E1390 MILDR[place] 0 HOME MED HOME MED 85%/>02 EQUIP. L EQUIP. L CONC AT [facility] FLW RATE PRTBLE E0431 MILDRED LEVY GASEOUS 0 HOME MED HOME MED O2 SYS EQUIP. L EQUIP. L RENT; FLWMTR HUMIDFR&M ASK PRTBLE E0431 MILDRED LEVY GASEOUS 0 HOME MED HOME MED O2 SYS EQUIP. L EQUIP. L RENT; FLWMTR HUMIDFR&M ASK O2 CONC 1 E1390 MILDRED [place] 0 HOME MED HOME MED 85%/>02 EQUIP. L EQUIP. L CONC AT [facility] FLW RATE INJECTION J2250 [facility] 0 Y Y MIDAZOLAM [facility] HCL PER 1 MG VIRUS 03184 [facility] CENTRIFUG 0 Y Y E ENHNCD [facility] ID IMFLUOR STAIN EA CULTURE 37165 [facility] FUNGI 0 Y Y DEFINITIV [facility] E ID EACH ORGANISM YEAST SMR PRIM 79130 [facility] SRC 0 Y Y GRAM/GIEM [facility] SA STAIN BCT FUNGI/VAHID L CYTP FINE 96538 [facility] NDL 0 Y Y ASPIRATE [facility] IMMT CYTOHIST STD DX 1ST CYTP EVAL 80996 [facility] FINE 0 Y Y NEEDLE [facility] ASPIRATE INTERP & REPORT CULTURE 04807 [facility] FNGI 0 Y Y MOLD/YEAS [facility] T PRSMPTV OTH XCPT BLOOD SPECIAL 50647 [facility] STAIN 0 Y Y GROUP 1 [facility] MICROORDE NISMS I&R CONCENTRA 97767 [facility] TION 0 Y Y INFECTIOU [facility] S AGENTS VIRUS 14348 [facility] TISS CUL 0 [facility] ON CYTOPATHI C EFFECT IADNA NOS 87387 [facility] UNIVERS 0 Y Y AMPLIFIED [facility] PROBE TQ EACH ORGANISM INJECTION J3010 [facility] UNIVERS FENTANYL 0 Y Y CITRATE [facility] 0.1 MG BRNCHSC 23499 [facility] W/BRNCL 0 Y Y ALVEOLAR [facility] LAVAGE RADIOLOGI 30089 [facility] C 0 [facility] ON CHEST SINGLE VIEW FRONTAL BRONCHOSC 22828 [facility] OPY 0 Y Y W/TRANSBR [facility] ONCHIAL LUNG BX 1 LOBE BRONCHOSC 58723 [facility] OPY 0 Y Y NEEDLE BX [facility] TRACHEA MAIN STEM&/BRO N IAADI 09566 [facility] PNEUMOCUS 0 Y Y TIS [facility] CARINII SMR PRIM 76638 [facility] SRC 0 Y Y FLUORESCE [facility] NT&/AFS BCT FNGI PARASIT TISS FRED 96544 [facility] SLIDE 0 Y Y [facility] SKN/HR/NL S FNGI/ECTO PARASIT CULTURE 20604 [facility] TUBERCLE/ [facility] ACID-FAST BACILLI ANY ISOL CUL BACT 98701 [facility] XCPT 0 Y Y URINE [facility] BLOOD/STO OL AEROBIC ISOL CELL 40311 [facility] COUNT 0 Y Y MISC BODY [facility] FLUIDS [place] [address] [facility] SURG 0 Y Y PATHOLOGY [facility] GROSS&JESS ROSCOPIC EXAM PRTBLE E0431 MILDRED LVEY GASEOUS 0 HOME MED HOME MED O2 SYS EQUIP. L EQUIP. L RENT; FLWMTR HUMIDFR&M ASK O2 CONC 1 E1390 MILDRED [place] DEL [place] 0 HOME MED HOME MED 85%/>02 EQUIP. L EQUIP. L CONC AT [facility] FLW RATE RADEX 27534 [facility]HIRE FRANCESCA ESOPHAGUS 0 MEDICAL EMY IMAGING ASS DUP-SCAN 05121 [facility]HIRE FRANCESCA XTR VEINS 0 MEDICAL EMY COMPLETE IMAGING ASS BILATERAL STUDY PHLEBOTOM 64737 COMBINED COMBINED Y 0 PHYSICIAN PHYSICIAN THERAPEUT S LA S LA IC SEPARATE PROCEDURE BLOOD 75817 [facility] COUNT 0 [facility] COMPLETE INC INC AUTO&AUTO DIFRNTL WBC COMPREHEN 72991 [facility] SIVE 0 [facility] METABOLIC INC INC PANEL COLLECTIO 75005 LUCY AYALA N VENOUS 0 [facility] BLOOD INC INC VENIPUNCT URE BRNCDILAT 69694 L[facility] RSPSE 0 [facility] PRE&POST- BRNCDILAT ADMN PULMONARY 57952 ELIO POLLOCK STRESS 0 MEDICAL JAM TESTING SERV SIMPLE FOUNDATIO CT THORAX 46100 [facility] W/O 0 MEDICAL KEY CONTRAST IMAGING MATERIAL ASS COLLECTIO 45140 COMBINED COMBINED N VENOUS 0 PHYSICIAN PHYSICIAN BLOOD S LAB S LAB VENIPUNCT URE COMPREHEN 41152 COMBINED COMBINED SIVE 0 PHYSICIAN PHYSICIAN METABOLIC S LAB S LAB PANEL 3D 61094 NEW HAMPS[facility]RE NELLY RENDERING 0 MEDICAL KEY IMAGING W/INTERP& ASS POSTPROC DIFF WORK STATION RADIOLOGI 08399 [facility]HIRE FRANCESCA C EXAM 0 MEDICAL EMY CHEST 2 IMAGING VIEWS ASS FRONTAL&L ATERAL O2 CONC 1 E1390 MILDRED [place]DR[place] 0 HOME MED HOME MED 85%/>02 EQUIP. EQUIP. CONC AT [facility] FLW RATE PRTBLE E0431 MILDRED MILDRED GASEOUS 0 HOME MED HOME MED O2 SYS EQUIP. EQUIP. RENT; [facility] FLWMTR HUMIDFR&M ASK PRTBLE E0431 MILDRED MILDRED GASEOUS 0 HOME MED HOME MED O2 SYS EQUIP. EQUIP. 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 EQUIP. CONC AT [facility] FLW RATE INJECTION J1940 ERIKA JAMES, 0 DON R DON R FUROSEMID E UP TO 20 MG RADIOLOGI 23064 ERIKA JAMES C 0 DON R DON R EXAMINATI ON CHEST SINGLE [place]IEW [facility] 32979 ERIKA JAMES, DISCHARGE 0 DON R DON R DAY MANAGEMEN T 30 MIN/< SBSQ 01364 [facility] 0 DON R DON R CARE/DAY 25 MINUTES RADIOLOGI 90861 [facility] Kristy VILLEGAS EXAM 0 MEDICAL JANE P CHEST 2 IMAGING VIEWS ASSOCIATE FRONTAL&L S ATERAL [facility] 46406 [facility] 0 DON R DON R CARE/DAY 25 MINUTES [facility] 50718 [facility] 0 DON R DON R CARE/DAY 25 MINUTES [facility] 93087 [facility] 0 DON R DON R CARE/DAY 25 MINUTES 3D 45203 [facility]HIRE FRANCESCA, RENDERING 0 MEDICAL SHASHI IMAGING W/INTERP& ASSOCIATE POSTPROC S DIFF WORK STATION CT THORAX 70654 NEW HAMPSHIRE FRANCESCA, 0 MEDICAL SHASHI W/CONTRAS IMAGING T ASSOCIATE MATERIAL S [facility] 45409 [facility] 0 DON R DON R CARE/DAY 25 MINUTES RADIOLOGI 68281 JAMES JAMES, 0 DON R DON R EXAMINATI ON CHEST SINGLE VIEW FRONTAL RADIOLOGI 13374 NEW [facility]AMPSHIRE FRANCESCA EXAM 0 MEDICAL SHASHI CHEST 2 IMAGING VIEWS ASSOCIATE FRONTAL&L S ATERAL INITIAL 02868 [facility] 0 DON R DON R CARE/DAY 50 MINUTES OPHTH 68745 [facility] 9 DONTE A DONTE A XM&EVAL COMPRHNSV ESTAB PT 1/> SCANNING 63541 RETINA & NINI, OPHTHALMI 9 VITREOUS CALLIE W C IMAGING ASSOCIATE S O POSTERIOR SGM UNI OPHTH 61037 RETINA & NINI, [facility] 9 VITREOUS CALLIE W XM&EVAL ASSOCIATE INTERMEDI S O ATE ESTAB PT INJECTION J1040 ERIKA JAMES, 8 DON R DON R METHYLPRE DNISOLONE ACETATE 80 MG OPHTH 90124 RETINA & NINI, [facility] 8 VITREOUS CALLIE W XM&EVAL ASSOCIATE INTERMEDI S O ATE ESTAB PT SCANNING 67630 RETINA & NINI, OPHTHALMI 8 VITREOUS CALLIE Winkler C IMAGING ASSOCIATE S O POSTERIOR SGM UNI INJECTION J1040 ERIKA JAMES 8 DON R DON R METHYLPRE DNISOLONE ACETATE 80 MG OPHTH 56156 SARA RUIZ, [facility] 8 DONTE A DONTE A XM&EVAL COMPRHNSV ESTAB PT 1/ SCANNING 26314 RETINA & NINI, OPHTHALMI 8 VITREOUS CALLIE Winkler C IMAGING ASSOCIATE S O POSTERIOR SGM UNI OPHTH 77458 RETINA & NINI, MEDICAL 8 VITREOUS CALLIE W XM&EVAL ASSOCIATE INTERMEDI S O ATE ESTAB PT INJECTION J1040 ERIKA JAMES 8 DON R DON R METHYLPRE DNISOLONE ACETATE 80 MG RADIOLOGI 56299 ERIKA JAMES C EXAM 8 DON R DON R CHEST 2 VIEWS FRONTAL&L ATERAL SCANNING 91516 RETINA & RETINA & OPHTHALMI 8 VITREOUS VITREOUS C IMAGING ASSOCIATE ASSOCIATE S O S O POSTERIOR SGM UNI OPHTH 25875 RETINA & RETINA & MEDICAL 8 VITREOUS VITREOUS XM&EVAL ASSOCIATE ASSOCIATE INTERMEDI S O S O ATE ESTAB PT OPHTH 45429 RETINA & RETINA & MEDICAL 8 VITREOUS VITREOUS XM&EVAL ASSOCIATE ASSOCIATE INTERMEDI S O S O ATE ESTAB PT SCANNING 94847 RETINA & RETINA & OPHTHALMI 8 VITREOUS VITREOUS C IMAGING ASSOCIATE ASSOCIATE S O S O POSTERIOR SGM UNI INJECTION J1100 ERIKA JAMES 8 DON R DON R DEXAMETHO SONE SODIUM PHOSPHATE 1 MG Encounters Encounter Start End Date Code Location Performer Type Date OFFICE 28203 [facility] RHIANNON OUTPATIEN 7 7 PHYSICIAN T VISIT S GROUP 40 MINUTES OFFICE 00450 Darnell RO[facility] OUTPATIEN 7 7 PILAR PLEITEZ T VISIT [facility] 15 MINUTES OFFICE 80265 FATUMA GARRISON OUTPATIEN 7 7 Y OF CK T VISIT [facility] 25 HOSPI [facility] LUCY - 7 7 [facility] INPATIENT INC OFFICE 87568 A Kristy ROY OUTPATIRYLEE 7 7 PILAR PLEITEZ T VISIT PSC 15 MINUTES OFFICE 70299 A Kristy ROY OUTGINO 7 7 PILAR PLEITEZ T VISIT PSC 15 MINUTES HOSPITAL LUCY - 6 6 [facility] OUTPATIEN INC T OFFICE 66087 ELIO MAGAÑAICK OUTPATIEN 6 6 MEDICAL JAM T VISIT SERV 25 FOUNDATIO MINUTES N OFFICE 05787 [facility] ALLMIGUEL ANGEL MORALES OUTPATIEN 6 6 PHYSICIAN RITA T VISIT S GROUP 10 MINUTES HOSPITAL LUCY - 6 6 [facility] T OFFICE 28758 LUCY EVAN OUTPATIEN 6 6 [facility] 10 P MINUTES OFFICE 95587 [place] OUTPATIEN 6 6 MEDICAL JAM T VISIT SERV 15 FOUNDATIO MINUTES N OFFICE 74235 [facility] ALLRAN JR OUTPATIEN 6 6 PHYSICIAN RITA T VISIT S GROUP 15 MINUTES OFFICE 07244 LUCY EVAN OUTPATIEN 6 6 [facility] 20 HOSPITAL MINUTES HOSPITAL LUCY - 6 6 [facility] OUTPATIEN INC T OFFICE 47487 [facility] ALLRAN JR OUTPATIEN 6 6 PHYSICIAN RITA T NEW 45 S GROUP MINUTES HOSPITAL LUCY - 6 6 [facility] OUTPATIEN INC T OFFICE 36217 [place] OUTPATIEN 6 6 MEDICAL JAM T VISIT SERV 25 FOUNDATIO MINUTES N OFFICE 26985 [place] OUTPATI[place] 6 6 MEDICAL JAM T VISIT SERV 25 FOUNDATIO MINUTES N EMERGENCY 20048 FATUMA WATTERS DEPT 6 6 Y OF MADALYN VISIT [facility] SEVERITY& THREAT [facility] LUCY - 6 6 [facility] OUTPATIEN INC T OFFICE 68465 A Kristy ROY JENNA OUTPATIEN 6 6 PILAR PLEITEZ T VISIT PSC 15 MINUTES OFFICE 50857 A Kristy ROY JENNA OUTPATIEN 6 6 PILAR PLEITEZ T VISIT PSC 15 MINUTES OFFICE 88159 [place] OUTPATIEN 6 6 MEDICAL JAM T VISIT SERV 40 FOUNDATIO MINUTES [facility] LUCY - 6 6 [facility] INPATIENT INC OFFICE 04754 [place] OUTPATI[place] 6 6 MEDICAL T VISIT SERV 25 FOUNDATIO MINUTES [facility] LUCY - 6 6 [facility]PATI[facility] OFFICE 43203 [place] OUTPATIEN 6 6 MEDICAL JAM T VISIT SERV 15 FOUNDATIO MINUTES [facility] LUCY - 5 5 [facility] OUTPATIEN [facility] LUCY [facility] 5 5 [facility]PAT[facility] LUCY - 5 5 [facility] OFFICE 10781 A C FIELD AMB OUTPATIEN 5 5 PILAR PLEITEZ T VISIT PSC 15 MINUTES OFFICE 69672 A C FIELD AMB OUTPATIEN 4 4 PILAR PLEITEZ T VISIT PSC 15 MINUTES HOSPITAL LUCY - 4 4 [facility] LUCY - 4 4 [facility] LUCY - 4 4 [facility] LUCY - 4 4 [facility]UC[facility] - 4 4 [facility] LUC[facility] - 4 4 [facility] LUCY - 4 4 [facility] OFFICE 02624 FIELD AMB FIELD AMB OUTPATIEN 4 4 T VISIT 15 MINUTES OFFICE 33908 FIELD AMB FIELD AMB OUTPATIEN 3 3 T VISIT 15 MINUTES OFFICE 70300 A C FIELD AMB OUTPATIEN 3 3 PILAR PLEITEZ T NEW 30 PSC MINUTES OFFICE 63329 ERIKA WHITLOCKHENS OUTPATIEN 3 3 DON DON T VISIT 15 MINUTES OFFICE 77727 JAMES JAMES OUTPATIEN 3 3 DON DON T VISIT 15 MINUTES HOSPITAL LUCY - 3 3 [facility] LUCY [facility] 2 2 [facility] OFF[facility] 44269 JAMES JAMES OUTPATIEN 2 2 DON DON T VISIT 15 MINUTES HOSPITAL LUCY - 2 2 [facility] LUCY - 2 2 [facility] 2 2 [facility] LUCY - 2 2 [facility] OFFICE 32154 JAMES JAMES OUTPATIEN 2 2 DON DON T VISIT 15 MINUTES OFFICE 62962 JAMES JAMES OUTPATIEN 1 1 DON DON T VISIT 15 MINUTES OFFICE 16440 JAMES JAMES OUTPATIEN 1 1 DON DON T VISIT 15 MINUTES OFFICE 49671 JAMES JAMES OUTPATIEN 1 1 DON DON T VISIT 15 MINUTES OFFICE 76364 JAMES JAMES OUTPATIEN 1 1 DON DON T VISIT 15 MINUTES [facility] 0 [facility] LUCY - 0 0 [facility] OFFICE 41252 ERIKA JAMES OUTPATIEN 0 0 DON R DON R T VISIT 15 MINUTES OFFICE 23914 ERIKA JAMES OUTPATIEN 0 0 DON R DON R T VISIT 25 MINUTES OFFICE [id number] ERIKA JAMES OUTPATIEN 0 0 DON R DON R T VISIT 15 MINUTES OFFICE [id number] ERIKA JAMES OUTPATIEN 8 8 DON R DON R T VISIT 15 MINUTES OFFICE [id number] ERIKA JAMES OUTPATIEN 8 8 DON R DON R T VISIT 15 MINUTES OFFICE [id number] ERIKA JAMES OUTPATIEN 8 8 DON R DON R T VISIT 15 MINUTES OFFICE [id number] ERIKA JAMES OUTPATIEN 8 8 DON R DON R T VISIT 15 MINUTES OFFICE [id number] ERIKA JAMES OUTPATIEN 8 8 DON R DON R T VISIT 15 MINUTES
--- OUTSIDE RECORDS SUMMARY | 2016-10-24 17:16 | External Medical Summary Rpt ---
Author Author , Organization [employer] Address Unknown Phone Unavailable Care Team Providers Care Head Of Loss Prevention Name Role Phone A Kristy QUEZADA MD [...] Unavailable [facility] Unavailable Unavailable SERVICE, [facility] Unavailable Unavailable SERVICE, [facility] Unavailable Unavailable [place], [...] Unavailable TAYLOR KEYANA, TAYLOR Unavailable Unavailable KEYANA [facility] Unavailable Unavailable INC, [facility] Unavailable Unavailable HOSPITAL P, [facility] P DONTE RUIZ A, Unavailable Unavailable DONTE RUIZ [facility], Unavailable Unavailable [facility] ARMENDARIZ JENNA, ARMENDARIZ JNENA Unavailable Unavailable HUI MIKHAIL, HUI MIKHAIL Unavailable Unavailable BECKY NIXON, BECKY Unavailable Unavailable [facility] Un[facility] Un[facility], [facility] NINI, CALLIE W, Unavailable Unavailable NINI, CALLIE W [facility] Unavailable Unavailable [facility] Un[facility] GLENN JR, GLENN JR Unavailable Unavailable GLENN JR DWI, GLENN Unavailable Unavailable JR DWI [facility] Unavailable Unavailable INTERNAL MED, [facility] JAMES CON, JAMES CON [...] PHARM #[id number] [facility] Unavailable Unavailable [id number] # [id number], [facility] [id number] # [id number] SHANELL CAR, Unavailable Unavailable SHANELL [...] Unavailable Unavailable OTTO BOOTH Unavailable Unavailable [facility], Unavailable Unavailable [facility] Unavailable [facility], [facility] HIEU FRANCO, HIEU Unavailable Unavailable [facility], Unavailable [facility], Unavailable Unavailable [facility] ZAGUROVSKAYA MAR, Unavailable Unavailable ZAGUROVSKAYA MAR Purpose Continuity of Care Document - 04-25-2007 through 2016 Problems Code Diagnosis DOS Provider Status 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 08-25-2016 [facility] W/[facility] P ANGINA PECTORIS I272 OTHER 08-25-2016 [facility] P HYPERTENSIO N R0602 SHORTNESS 08-25-2016 [place] [facility] R079 CHEST PAIN 08-25-2016 [facility] UNSPECIFIED MEDICAL IMAGING ASS I4891 UNSPECIFIED 07-03-2016 [...] MD PSC FIBRILLATIO N C9110 CHRONIC 01-11-2016 [facility] 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 R634 ABNORMAL 01-11-2016 [facility] INC R1110 VOMITING 01-09-2016 [facility] UNSPECIFIED PHYSICIANS GROUP K828 OTHER 01-02-2016 [place] SPECIFIED MEDICAL DISEASES OF IMAGING ASS GALLBLADDER R630 ANOREXIA 01-02-2016 [facility] K921 MELENA 11-07-2015 [facility] K5710 DIVERTICULO 11-03-2015 [place] SIS SM MEDICAL INTEST W/O IMAGING ASS PERF/ABSC W/O BLEED R195 OTHER FECAL 11-03-2015 [facility] [place] [facility] ABNORMALITI IMAGING ASS ES H00244 LYMPHOCYTOS 10-26-2015 [facility] IS PATHOLOGY SYMPTOMATIC LAB NETW J690 PNEUMONITIS 10-26-2015 [facility] DUE TO SERV INHALATION [facility] OF FOOD AND VOMIT B370 CANDIDAL 10-19-2015 [facility] STOMATITIS SERV [facility] R112 NAUSEA WITH 10-19-2015 [place] [facility] UNSPECIFIED FOUNDATION I509 HEART 10-15-2015 [facility] FAILURE HOME UNSPECIFIED MEDICAL EQUIPME R531 WEAKNESS 09-20-2015 [facility] 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 SERV [facility] R9431 ABNORMAL 09-18-2015 [facility] ELECTROCARD SERV IOGRAM FOUNDATION I4510 UNSPECIFIED 09-15-2015 [facility] RIGHT SERV BUNDLE-BRAN FOUNDATION CH BLOCK R001 BRADYCARDIA 09-15-2015 [facility] UNSPECIFIED [facility]OUNDATION B965 PSEUDOMONAS 09-14-2015 [facility] CAUSE OF SERV DZ [facility] CLASSIFIED ELSEWHERE J9600 ACUTE 09-14-2015 [facility]PIRATORY SERV FAIL UNS FOUNDATION HYPOXIA/HYP ERCAPNIA J9811 ATELECTASIS 09-14-2015 [facility] A32975 ENCOUNTER 09-14-2015 [facility] SURG SERV AFTERCARE [facility] FLW SURG DIGESTIVE SYS Z049 ENCOUNTER 09-13-2015 [facility] EXAMINATION SERV &OBSERVATIO FOUNDATION N FOR UNS REASON K5900 CONSTIPATIO 09-12-2015 [place] [facility] N SERV UNSPECIFIED FOUNDATION R140 ABDOMINAL 09-10-2015 [facility] DISTENSION SERV GASEOUS [facility]OUND[facility] R0989 OTH SPEC SX 09-09-2015 [place] [facility] & SIGNS SERV INVLV THE FOUNDATION CIRC & RESP SYS R918 OTHER 09-09-2015 [place] [facility] NONSPECIFIC SERV ABNORMAL [facility]OUNDATION FINDING OF LUNG FIELD A419 SEPSIS 09-08-2015 [facility] UNSPECIFIED SERV ORGANISM FOUNDATION E873 ALKALOSIS 09-08-2015 [facility] E876 HYPOKALEMIA 09-08-2015 [facility] J90 PLEURAL 09-08-2015 [facility] EFFUSION SERV NOT FOUNDATION ELSEWHERE CLASSIFIED J9620 ACUTE 09-08-2015 [place] [facility] CHRONIC SERV RESP FAIL FOUNDATION UNS HYPOXIA/HYP ERCAPNIA J984 OTHER 09-08-2015 [facility] DISORDERS SERV OF LUNG FOUNDATION R109 UNSPECIFIED 09-08-2015 [place] [facility] ABDOMINAL SERV PAIN FOUND[facility] Z4682 ENCOUNTER 09-08-2015 [facility] NON-VASCULA R CATHETER 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-07-2015 [place] [facility] DISORDER SERV UNSPECIFIED FOUNDATION I517 CARDIOMEGAL 09-07-2015 [place] [facility] Y SERV [facility] I5189 OTHER 09-07-2015 [facility] ILL-DEFINED SERV HEART [facility] DISEASES R0902 HYPOXEMIA 09-06-2015 [facility] R0689 OTHER 09-02-2015 [place] [facility] ABNORMALITI SERV ES OF FOUNDATION BREATHING J942 HEMOTHORAX 08-30-2015 [facility] J948 OTHER 08-30-2015 [place] [facility] SPECIFIED SERV PLEURAL FOUNDATION CONDITIONS L538 OTHER 08-30-2015 [place] [facility] SPECIFIED SERV ERYTHEMATOU FOUNDATION S CONDITIONS Z9889 OTHER 08-30-2015 [place] [facility] SPECIFIED SERV POSTPROCEDU FOUNDATION RAL STATES 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 K4030 UNILAT 08-25-2015 [place] INGUINAL [facility] NGUYEN W/OBST HOSPI W/O GANGRN NOT RECUR K4040 UNILAT 08-25-2015 [place] [facility]AL SERV NGUYEN FOUNDATION W/GANGREN NOT SPEC RECUR Z7901 PRIVATE WATCHMAN 08-25-2015 [place] [facility] CURRENT USE SERV OF FOUNDATION ANTICOAGULA NTS M19413 ELEVATED 08-24-2015 [facility] P UNSPECIFIED K4090 UNILAT 08-24-2015 [place] [facility] INGUINAL SERV NGUYEN W/O FOUNDATION OBST/GANGRE N NOT RECUR K5660 UNSPECIFIED 08-24-2015 [facility] INTESTINAL AMBULANCE SERVICE OBSTRUCTION R1031 RIGHT LOWER 08-24-2015 [place] QUADRANT [facility] PAIN HOSPI 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 J189 PNEUMONIA 08-03-2015 [place] UNSPECIFIED MEDICAL ORGANISM IMAGING ASS J439 EMPHYSEMA 08-03-2015 [place] UNSPECIFIED EDNA INTERNAL MED J929 PLEURAL 08-03-2015 [place] [facility]ICAL WITHOUT IMAGING ASS ASBESTOS R002 PALPITATION 08-03-2015 [place] [facility] S SERV [facility] R031 NONSPECIFIC 08-03-2015 [place] [facility] LOW SERV BLOOD-PRESS [facility] URE READING R42 DIZZINESS 08-03-2015 [place] [facility] AND SERV GIDDINESS [facility] 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 08-03-2015 [place] ON EDNA SUPPLEMENTA INTERNAL L OXYGEN MED J42 UNSPECIFIED 07-13-2015 [place] CHRONIC MEDICAL BRONCHITIS IMAGING ASS Z7722 CONTACT W/ 07-13-2015 [place] [facility] & SUSPECTED SERV EXPOS [facility] ENVIR TOBACCO SMOKE J40 BRONCHITIS 03-25-2015 [place] NOT MEDICAL SPECIFIED IMAGING ASS ACUTE OR CHRONIC R091 PLEURISY 01-21-2015 [facility] [facility] 4280 CONGESTIVE 01-14-2015 [facility] HOME FAILURE MEDICAL UNSPECIFIED EQUIPME 77852 OBSTRUCTIVE 01-14-2015 [facility] WITHOUT EXACERBAT 496 CHRONIC 01-14-[address] [facility] [address] HOME OBSTRUCTION MEDICAL NEC EQUIPME 28251 NUCLEAR 12-28-2014 [place] SCLEROSIS JAMILAH 81777 OBST 09-06-2014 A Kristy QUEZADA CHRONIC PSC BRONCHITIS W/ACUTE BRONCHITIS 62532 LOSS OF 09-06-2014 A Kristy QUEZADA WEIGHT PSC 01814 OTHER CHEST 09-06-2014 A Kristy QUEZADA PAIN PSC 72507 OBSTRUCTIVE 09-05-2014 [facility] SLEEP HOME APNEA MEDICAL EQUIPME 7242 LUMBAGO 04-01-2014 A Kristy QUEZADA MD PSC V0382 NEED PROPH 04-01-2014 A Kristy QUEZADA VACCINATION PSC AGAINST STREP PNEUMONE 49075 ATRIAL 01-13-2014 [facility] FIBRILLATIO [facility] N INC 14230 REFLUX 01-13-2014 [facility] ESOPHAGITIS [facility] INC 53477 UNS 01-13-2014 [facility] GASTRITIS&G [facility] ASTRODUODIT INC IS W/O MENTION HEMORR 73360 ABDOMINAL 01-13-2014 [facility] PAIN, MEM [facility]OS[facility] GENERALIZED INC V5869 LONG-TERM 01-13-2014 [facility] (CURRENT) [facility] USE OF INC OTHER MEDICATIONS 42756 CHEST PAIN 11-24-2013 [facility] UNSPECIFIED [facility] INC 5110 PLEURISY 10-29-2013 [place] WITHOUT MEDICAL MENTION IMAGING ASS EFFUS/CURRE NT TB 7862 COUGH 10-29-2013 [facility] [place] [facility] 60521 INSOMNIA 12-16-2012 A Kristy ANDREAIFIED PSC 70977 OTHER 12-16-2012 Darnell QUEZADA MALAISE AND PSC FATIGUE 15063 FEVER 05-23-2012 [facility] UNSPECIFIED DON 23038 WHEEZING 05-23-2012 J[facility] DON 1120 CANDIDIASIS 05-21-2012 [facility] OF MOUTH DON 85857 OTHER 05-21-2012 [facility] DISEASES OF EMY LUNG NOT ELSEWHERE CLASSIFIED 4940 BRONCHIECTA 01-28-2012 [place] SIS WITHOUT MEDICAL ACUTE IMAGING ASS EXACERBATIO N 5119 UNSPECIFIED 01-28-2012 [place] PLEURAL MEDICAL EFFUSION IMAGING ASS 98671 OTHER 01-28-2012 [facility] NONSPECIFIC [facility] ABNORMAL INC FINDING OF LUNG FIELD 70342 OSTEOARTHRO 01-02-2012 JAMES S INVLV MX DON SITES BUT [place] SPEC GEN 13267 OBSTRUCTIVE 11-12-2011 [facility] CHRONIC [facility] BRONCHITIS INC WITH EXACERBATIO N 09850 ESOPHAGEAL 11-12-2011 [facility] REFLUX [facility] INC 2859 UNSPECIFIED 10-05-2011 [facility] ANEMIA [facility] INC 5180 PULMONARY 10-05-2011 [place] COLLAPSE [facility]ING ASS 486 PNEUMONIA, 09-28-2011 [place] ORGANISM MEDICAL UNSPECIFIED IMAGING ASS 5070 PNEUMONITIS 09-28-2011 [place] DUE TO JAM INHALATION OF FOOD OR VOMITUS 25221 SHORTNESS 09-28-2011 [facility] OF BREATH [facility] INC 70910 ABDOMINAL 09-28-2011 [facility] PAIN, MEM HOS[facility] EPIGASTRIC INC V1261 PERSONAL 09-28-2011 [place] HISTORY JAM PNEUMONIA RECURRENT 53125 PNEUMONIA 06-08-2011 [facility] DUE TO DON OTHER SPECIFIED BACTERIA 2724 OTHER AND 05-11-2011 [facility] UNSPECIFIED PHYSICIANS [place] HYPERLIPIDE [place] 2768 HYPOPOTASSE 05-11-2011 [facility] [place] PHYSICIANS [place] 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 6019 UNSPECIFIED 05-11-2011 [place] [address] PAIN IN 05-11-2011 COMBINED JOINT, PHYSICIANS MULTIPLE [place] SITES 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 5183 PULMONARY 11-28-2009 [facility] A 68457 ACUTE 11-28-2009 [place] [facility] RESPIRATORY SERV FAILURE FOUNDATIO 7856 ENLARGEMENT 11-28-2009 [facility] NODES 7931 NONSPEC 11-28-2009 [place] [facility] FIND RAD SERV OTH EXAM [facility]AT[facility] BODY STRUCT LUNG FIELD V1582 PERS HX 11-28-2009 [facility] PRESENTING [facility] V7282 PRE-OPERATI 11-28-2009 [place] [facility] VE SERV RESPIRATORY [facility]OUNDATIO EXAMINATION 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 20964 DYSPHAGIA 11-18-2009 [place] UNSPECIFIED MEDICAL IMAGING ASS 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, 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, ATORY DON R PULMONARY FIBROSIS 24861 OSTEOARTHRO 08-23-2009 JAMES, SIS UNSPEC DON R WHETHER GEN/LOC LOWER LEG 15146 OSTEOARTHRO 08-23-2009 E[place]KA, S UNSPEC DON R GEN/LOC OTH SPEC SITES 42297 MACULAR 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 RUIZ A N OF RETINA UNSPECIFIED 14973 NONEXUDATIV 07-20-2008 [facility] & 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 40321 EXUDATIVE 07-20-2008 [facility] & SENILE [facility] DEGENERATIO O N OF RETINA 36533 CRYSTALLINE 07-20-2008 [place] & DEPOSITS VITREOUS IN VITREOUS ASSOCIATES O 4610 ACUTE 02-27-2008 JAMES, MAXILLARY DON R SINUSITIS 4659 ACUTE URIS 02-27-2008 [place], OF DON R UNSPECIFIED SITE 8472 LUMBAR 11-14-2007 JAMES, SPRAIN AND DON R STRAIN 4660 ACUTE 08-02-2007 JAMES, BRONCHITIS DON R 4871 INFLUENZA 07-04-2007 ERIKA, WITH OTHER DON R RESPIRATORY MANIFESTATI ONS 45284 PAIN IN 04-25-2007 JAMES, JOINT, DON R SHOULDER REGION 12007 UNSPECIFIED 04-25-2007 JAMES, SYNOVITIS DON R AND [...] ET 03 93 8 # 03 93 AL 00 04 04 00 12 6 RI 72 No Ac OM 60 -1 -2 0. TE 86 t ti ET 31 4 00 86 Av ve PERAZA 58 20 20 0 AI ai ZI 55 08 08 D la NE 8 PH bl -C AR e OD M EI #3 NE 93 8 SY RU P Procedures Procedure DOS Code Location Performer Comment ADMN SET A7003 YOUR YOUR SM VOL 7 PHARMACY PHARMACY [facility] delicious [facility] PNEUMAT NEBULIZR DISPBL ALBUTEROL J7620 YOUR YOUR TO 2.5 7 PHARMACY PHARMACY & delicious [facility] IPRATROPI UM BROM TO 0.5 MG ALBUTEROL J7620 A C A C TO 2.5 7 PILAR QUEZADA MD MG & PSC PSC IPRATROPI UM BROM TO 0.5 MG ECG 53789 [facility] ROUTINE 7 PHYSICIAN ECG S GROUP W/LEAST 12 LDS I&R ONLY R & L HRT 52542 [facility] RHIANNON CATH 7 PHYSICIAN WINJX HRT S GROUP ART& L VENTR IMG ECG 99230 [facility] ROUTINE 7 [facility] W/LEAST P 12 LDS I&R ONLY RADIOLOGI 52835 [facility] 7 MEDICAL EXAMINATI IMAGING ON CHEST ASS SINGLE VIEW FRONTAL ADMN SET A7003 YOUR YOUR SM VOL 7 PHARMACY PHARMACY [employer] PNEUMAT NEBULIZR DISPBL ALBUTEROL J7620 YOUR YOUR TO 2.5 7 PHARMACY PHARMACY [employer] IPRATROPI UM BROM TO 0.5 MG O2 CONC 1 E1390 [facility] PORT 7 HOME HOME 85%/>02 MEDICAL MEDICAL CONC AT EQUIPME EQUIPME PRSC FLW RATE O2 CONC 1 E1390 [facility] [place] 7 HOME HOME 85%/>02 MEDICAL MEDICAL CONC AT EQUIPME EQUIPME PRSC FLW RATE RADIOLOGI 38664 [facility] C EXAM 7 MEDICAL MEDICAL CHEST 2 [...] YOUR YOUR SM VOL 6 PHARMACY PHARMACY [employer] PNEUMAT NEBULIZR DISPBL PHRM Q0513 YOUR YOUR DISPENSIN 6 PHARMACY PHARMACY [facility] [employer] INHALATIO N RX; PER 30 DAYS ALBUTEROL J7620 YOUR YOUR TO 2.5 6 PHARMACY PHARMACY [employer] IPRATROPI UM BROM TO 0.5 MG O2 CONC 1 E1390 [facility] HOME HOME 85%/>02 MEDICAL MEDICAL CONC AT EQUIPME EQUIPME [facility] G0463 [facility] AYALA OUTPATIEN 6 MEM HOS[facility] T CLIN INC INC VISIT ASSESS & MGMT PT O2 CONC 1 E1390 [facility] HOME HOME 85%/>02 MEDICAL MEDICAL CONC AT EQUIPME EQUIPME PRSC FLW RATE COLLECTIO 29662 [facility] AYAL[facility] N VENOUS 6 MEM HOSP [facility]OS[facility] BLOOD INC INC VENIPUNCT URE COMPREHEN 61530 [facility] SIVE 6 MEM HOS[facility] METABOLIC INC INC PANEL BLOOD 29722 [facility] COUNT 6 [facility] COMPLETE INC INC AUTO&[place] [address] [facility] ABDOMEN 6 MEM HOS[facility] W/CONTRAS INC INC T MATERIAL LOCM Q9967 L[facility] A[facility]ALA 300-399 6 MEM HOS[facility] MG/ML INC INC IODINE CONCENTRA TION PER ML ANES 23167 [facility] UPPER GI 6 ANESTH PALMA ENDOSCOPY OF THE PROXIMAL BLUE TO DUODENUM O2 CONC 1 E1390 [facility] LUIS PORT 6 HOME HOME 85%/>02 MEDICAL MEDICAL CONC AT EQUIPME EQUIPME PRS FLW RATE O2 CONC 1 E1390 [facility] PENA DEL PORT 6 HOME MAR 85%/>02 MEDICAL CONC AT EQUIPME [facility] FLW RATE RADEX 32714 [facility] ALL UPPER GI 6 MEDICAL W/WO IMAGING GLUCAGON/ ASS DELAY IMGES W/O KUB RADEX 52515 [facility] A[facility]AL[facility] UPPER GI 6 MEM HOSP [facility] W/WO INC INC GLUCAGON/ DELAY IMAGES W/KUB FLOW 02618 MOLECULAR MOLECULAR CYTOMETRY 6 INTER PATHOLOGY PATHOLOGY 2-8 LAB NETW LAB NETW MARKERS COLLECTIO 35310 [facility] A[facility] N VENOUS 6 [facility] BLOOD INC INC VENIPUNCT URE FLOW 70760 [facility] AYALA CYTOMETRY 6 [facility] CELL INC INC SURF MARKER TECHL ONLY 1ST FLOW 27670 [facility] AYALA CYTOMETRY 6 [facility] CELL INC INC SURF MARKER TECHL ONLY EA NEBULIZER E0570 [facility] LEVY WITH 6 HOME HOME COMPRESSO MEDICAL MEDICAL R EQUIPME EQUIPME O2 CONC 1 E1390 [facility] DILLON DEL PORT 6 HOME KEY 85%/>02 MEDICAL CONC AT EQUIPME PRS FLW RATE SEAT E0156 [facility] ATTACHMEN 6 T WALKER WALKER E0143 [facility] FOLDING 6 WHEELED ADJUSTABL E/FIXED HEIGHT ECG 94922 [place] [facility] ROUTINE 6 MEDICAL ECG SERV W/LEAST FOUNDATIO 12 LDS N I&R ONLY ECG 61907 [facility] ROUTINE 6 MEDICAL NAN ECG SERV W/LEAST FOUNDATIO 12 LDS N I&R ONLY RADIOLOGI 74068 [place] JAMES CON C 6 MEDICAL EXAMINATI SERV ON CHEST FOUNDATIO SINGLE N VIEW FRONTAL SBSQ 53036 [facility] 6 MEDICAL EKYANA CARE/DAY SERV 25 FOUNDATIO MINUTES N RADIOLOGI 79354 [place] ZAGUROVSK C 6 MEDICAL AYA MAR EXAMINATI SERV ON CHEST FOUNDATIO SINGLE N VIEW FRONTAL SBSQ 56053 [facility] 6 MEDICAL KEYANA CARE/DAY SERV 15 FOUNDATIO MINUTES N SBSQ 92864 [facility] 6 MEDICAL KEYANA CARE/DAY SERV 15 FOUNDATIO MINUTES N RADIOLOGI 56051 [place] JENNA C 6 MEDICAL EXAMINATI SERV ON CHEST FOUNDATIO SINGLE N VIEW FRONTAL RADIOLOGI 04943 [place] LEATHA C 6 MEDICAL EXAMINATI SERV ON CHEST FOUNDATIO SINGLE N VIEW FRONTAL SBSQ 95698 [facility] 6 MEDICAL CARE/DAY SERV 25 FOUNDATIO MINUTES N SBSQ 28702 [facility] 6 MEDICAL CARE/DAY SERV 25 FOUNDATIO MINUTES N RADIOLOGI 68859 [place] [facility] C 6 MEDICAL EXAMINATI SERV ON CHEST FOUNDATIO SINGLE N VIEW FRONTAL ECG 03469 [facility] MEDICAL ECG SERV W/LEAST FOUNDATIO 12 LDS N I&R ONLY RADEX 99630 [place] [facility] ABDOMEN 1 6 MEDICAL SUSAN SERV ANTEROPOS FOUNDATIO TERIOR N VIEW RADEX 29229 [facility] ABDOMEN 1 6 [facility] TERIOR VIEW ECG 81783 [facility] 6 MEDICAL ECG SERV W/LEAST FOUNDATIO 12 LDS N I&R ONLY RADIOLOGI 01965 [place] [facility] C 6 MEDICAL EXAMINATI SERV ON CHEST FOUNDATIO SINGLE N VIEW FRONTAL CRITICAL 77892 [place] [facility] 6 MEDICAL ILL/INJUR SERV ED FOUNDATIO PATIENT N INIT MIN SBSQ 91773 [facility] 6 MEDICAL CARE/DAY SERV 25 FOUNDATIO MINUTES N RADIOLOGI 97459 [place] [facility] C 6 MEDICAL AYA MAR EXAMINATI SERV ON CHEST [place] [address] [place] REYEZ CLEO ABDOMEN & 6 MEDICAL PELVIS SERV W/CONTRAS FOUNDATIO T N MATERIAL RADEX 12044 [facility] ABDOMEN 1 6 Y OF CAR TEX ANTEROPOS HOSPI TERIOR VIEW [facility] THORAX [address]6566 [place] [facility] CON 6 MEDICAL W/CONTRAS SERV T FOUNDATIO MATERIAL N RADEX ABD 87414 [place] PAUL[facility] COMPL 6 MEDICAL JURGEN AQT ABD SERV ANNEL W/S/E/D FOUNDATIO VIEWS 1 N VIEW CH ECG 08030 [place] [facility] ROUTINE 6 MEDICAL ECG SERV W/LEAST FOUNDATIO 12 LDS N I&R ONLY ECHO 36379 [place] [facility] TTHRC R-T 6 MEDICAL ERIKA 2D SERV W/WOM-MOD FOUNDATIO E COMPL N SPEC&COLR D RADIOLOGI 08698 [place] [facility] CON C 6 MEDICAL EXAMINATI SERV ON CHEST FOUNDATIO SINGLE N VIEW FRONTAL SBSQ 32079 [place] [address] MEDICAL AND CARE/DAY SERV 25 FOUNDATIO MINUTES N INITIAL 08483 [place] [address] MEDICAL SUN KAYODE CARE/DAY SERV 30 FOUNDATIO MINUTES N SBSQ 91633 [facility] 6 MEDICAL AND CARE/DAY SERV 25 FOUNDATIO MINUTES N RADIOLOGI 08345 [place] J[facility] CON C 6 MEDICAL EXAMINATI SERV ON CHEST FOUNDATIO SINGLE N VIEW FRONTAL RADIOLOGI 44118 [place] [facility] CON C 6 MEDICAL EXAMINATI SERV ON CHEST FOUNDATIO SINGLE N VIEW FRONTAL ECG 28533 [place] [facility] ROUTINE 6 MEDICAL ECG SERV W/LEAST FOUNDATIO 12 LDS N I&R ONLY RADIOLOGI 93562 [place] WILLIEK C 6 MEDICAL AYA MAR EXAMINATI SERV ON CHEST FOUNDATIO SINGLE N VIEW FRONTAL RADEX 64701 [facility] ABDOMEN 1 6 Y OF CAR TEX ANTEROPOS HOSPI TERIOR VIEW RADEX 36219 [place] JONAHGUROLEONOR ABDOMEN 1 6 MEDICAL AYA MAR SERV ANTEROPOS FOUNDATIO TERIOR N VIEW RADIOLOGI 23042 [place] ROBBINS C 6 MEDICAL JESS EXAMINATI SERV ON CHEST FOUNDATIO SINGLE N VIEW FRONTAL RADIOLOGI 51466 [place] JONAHGUROGALLITOK C 6 MEDICAL AYA MAR EXAMINATI SERV ON CHE[place] [address] [place] AYOOB AND ABDOMEN & 6 MEDICAL PELVIS SERV W/CONTRAS FOUNDATIO T N MATERIAL RADEX 88778 UNIVERSIT SHANELL ABDOMEN 1 7 Y OF CAR TEX ANTEROPOS HOSPI TERIOR VIEW CT THORAX [address] [place] ARMENDARIZ JENNA 6 MEDICAL W/CONTRAS SERV T FOUNDATIO MATERIAL N RADEX 85218 UNIVERSIT SHANELL ABDOMEN 1 7 Y OF CAR [facility] [place] [place] [facility]OS[facility] TERIOR VIEW SBSQ 07771 [facility] 6 MEDICAL AND CARE/DAY SERV 25 FOUNDATIO MINUTES N SBSQ 53513 [facility] 6 MEDICAL AND CARE/DAY SERV 25 FOUNDATIO MINUTES N RADIOLOGI 00693 [place] DELL CAR C 6 MEDICAL EXAMINATI SERV ON CHEST FOUNDATIO SINGLE N VIEW FRONTAL RADIOLOGI 80808 [place] JAMES CON C 6 MEDICAL EXAMINATI SERV ON CHEST FOUNDATIO SINGLE N VIEW FRONTAL ECG 29681 [place] PELAEZ ROUTINE 6 MEDICAL NAN ECG SERV W/LEAST FOUNDATIO 12 LDS N I&R ONLY ECG 70964 [place] HUI MIKHAIL ROUTINE 6 MEDICAL ECG SERV W/LEAST FOUNDATIO 12 LDS N I&R ONLY SBSQ 39965 [facility] 6 MEDICAL RONNY CARE/DAY SERV [place] [address] [place] HIEU SURG 6 MEDICAL FRANCO PATHOLOGY SERV FOUNDATIO GROSS&JESS N ROSCOPIC EXAM LEVEL III 00904 [place] HIEU SURG 6 MEDICAL FRANCO PATHOLOGY SERV FOUNDATIO GROSS&JESS N ROSCOPIC EXAM ARTL 98012 [facility] UNIVERS CATHJ/CAN 6 Y OF Y OF NULJ [facility] SFUSION SPX PRQ ANESTHESI 40631 FATUMA SANDOVAL BET A HERNIA 6 Y OF REPAIR [facility] ABDOMEN NOS RPR 1ST 58807 [facility] INGUN 6 MEDICAL RONNY HRNA AGE SERV 5 YRS/> FOUNDATIO INCARCERA N KISHOR COMPREHEN 00769 [facility] SIVE 6 [facility] METABOLIC INC INC PANEL CREATINE 96522 [facility] KINASE 6 [place] [address] [facility] AMYLASE 6 [facility] INC INC CREATINE 53766 L[facility] AYALA KINASE MB 6 [facility] FRACTION INC INC ONLY AMBULANCE A0429 [facility] SERVICE 6 AMBULANCE AMBULANCE BLS SERVICE [place] [address] LUCY AYALA TROPONIN 6 [facility] QUANTITAT INC INC ARCENIO INITIAL 40784 [facility] 6 MEDICAL CHR CARE/DAY SERV 50 FOUNDATIO MINUTES N BLOOD 24579 [facility] AYAL[facility] COUNT 6 [facility] COMPLETE INC INC AUTO&AUTO DIFRNTL WBC GROUND A0425 [facility] PER SERVICE SERVICE STATUTE MILE ECG 99586 LUC[facility] BEVERLY ROUTINE 6 [facility] W/LEAST P 12 LDS I&[place] [address] [facility] ALL ABDOMEN & 6 MEDICAL PELVIS IMAGING W/O ASS CONTRAST MATERIAL ECG 40090 [facility] A[facility]ALA ROUTINE 6 [facility] ECG INC INC W/LEAST 12 LDS TRCG ONLY W/O I&R RADIOLOGI 22255 [facility] [place] [facility] 6 MEDICAL EXAMINATI [place]AGING [place] [address] LUCY AYALA INFUSION 6 [facility] MEM HOSP THERAPY/P INC INC ROPHYLAXI S /DX 1ST TO 1 [place] [address] LUCY AYALA LIPASE 6 [facility] INC INC INJECTION J2405 [facility] 6 [facility] ONDANSETR INC INC ON HCL PER 1 MG INJ J2543 [facility] PIPERACIL 6 [facility] YONATHAN INC INC SOD/TAZOB ACTAM SOD 1 G/0.125 G THER 68920 LUC[facility]AL[facility] PROPH/DX 6 [facility] NJX EA INC INC SEQL IV PUSH SBST/DRUG FAC BLOOD 26664 Darnell ROY JENNA COUNT 6 PILAR PLEITEZ COMPLETE PSC AUTO&AUTO DIFRNTL WBC COLLECTIO 51595 Darnell WEST N VENOUS 6 PILAR PLEITEZ BLOOD PSC VENIPUNCT URE NEBULIZER E0570 MIL[facility]Y WITH 6 HOME HOME [facility]PRESSO MEDICAL MEDICAL R EQUIPME EQUIPME INITIAL [address] CARE/DAY INTERNAL 70 MED MINUTES RADIOLOGI 37280 [place] FRANCESCA C 6 MEDICAL EMY EXAMINATI IMAGING ON CHEST ASS SINGLE VIEW FRONTAL ECG 04241 CRESTON RUSH ROUTINE [address] [place] [address] W/LEAST P 12 LDS I&R ONLY NEBULIZER E0570 MILDRED LEVY WITH 6 HOME HOME [facility]PRESS[facility] MEDICAL MEDICAL R EQUIPME EQUIPME ADMN SET A7003 YOUR YOUR SM VOL 6 PHARMACY PHARMACY NONFILTR [facility] PNEUMAT NEBULIZR DISPBL PHRM Q0513 YOUR YOUR DISPENSIN 6 PHARMACY PHARMACY G [facility] INHALATIO N RX; PER 30 DAYS RADIOLOGI 21531 LUC[facility] AYAL[facility] C EXAM 6 [facility] CHEST 2 INC INC VIEWS FRONTAL&L ATERAL RADIOLOGI 89164 [place] FONTANEZ ALL C 6 MEDICAL EXAMINATI IMAGING ON CHEST ASS SINGLE VIEW FRONTAL ALBUTEROL J7620 YOUR YOUR TO 2.5 6 PHARMACY PHARMACY [facility] IPRATROPI UM BROM TO 0.5 MG COLLECTIO 69126 LUCY AYALA N VENOUS 6 [facility] BLOOD INC INC VENIPUNCT URE COMPREHEN 83539 [facility]AL[facility] SIVE 6 [facility] METABOLIC INC INC PANEL BLOOD 62109 LUC[facility] A[facility]AL[facility] COUNT 6 [facility] COMPLETE INC INC AUTO&AUTO DIFRNTL WBC NEBULIZER E0570 [place] WITH 6 HOME HOME COMPRESSO MEDICAL MEDICAL R EQUIPME EQUIPME NEBULIZER E0570 MIL[place]Y WITH 6 HOME HOME COMPRESSO MEDICAL MEDICAL R EQUIPME EQUIPME PHRM Q0513 YOUR YOUR DISPENSIN 5 PHARMACY PHARMACY G [facility] INHALATIO N RX; PER 30 DAYS ALBUTEROL J7620 YOUR YOUR TO 2.5 5 PHARMACY PHARMACY [facility] IPRATROPI UM BROM TO 0.5 MG RADIOLOGI 13991 [facility] ALL C EXAM 5 MEDICAL CHEST 2 IMAGING VIEWS ASS FRONTAL&L ATERAL CT THORAX 11719 [facility] ALL 5 MEDICAL W/CONTRAS IMAGING T ASS MATERIAL RADIOLOGI 28283 [facility] ALL C EXAM 5 MEDICAL CHEST 2 IMAGING VIEWS ASS FRONTAL&L ATERAL PHARM G0333 YOUR YOUR DISPEN 5 PHARMACY PHARMACY [facility] LLC RX; INITIAL 30-DAY SUPPLY NEBULIZER E0570 MIL[place]Y WITH 5 HOME HOME COMPRESSO MEDICAL MEDICAL R EQUIPME EQUIPME ALBUTEROL J7620 YOUR YOUR TO 2.5 5 PHARMACY PHARMACY [facility] IPRATROPI UM BROM TO 0.5 MG CATARACT 68272 [facility] REMOVAL 5 JAMILAH JAMILAH INSERTION OF [...] EQUIPME EQUIPME ARWAY PRESS DEVICE EA POLYSOM 60477 NEERAJ KERN MAR 6/>YRS 4 SLEEP 4/> NEUROSCIE ADDL NCES CENT AMA ATTND POLYSOM 49282 LUCY AYALA 6/>YRS 4 [facility] SLEEP 4/> INC INC ADDL AMA ATTND IMC/IMC G0461 LUC[facility]AL[facility] PER 4 [facility] SPECIMEN; INC INC 1ST SNGL/[place] [address] LUCY AYALA SURG 4 [facility] PATHOLOGY INC INC GROSS&JESS ROSCOPIC EXAM SPECIAL 90838 LUCY AYALA STAIN 4 [facility] GROUP 1 INC INC MICROORGA NISMS I&R SPCL STN 39983 LUCY AYALA 2 I&R 4 [facility] EXCPT INC INC MICROORG/ ENZYME/[place] [address] LUCY AYALA INFUSION 4 [facility] THERAPY INC INC PROPHYLAX IS/[place] [address] LUCY AYALA INFUSION 4 [facility] THERAPY/P INC INC ROPHYLAXI S /DX 1ST TO 1 HR SPMTRY 07772 LUCY AYALA W/VC 4 [facility] EXPIRATOR INC INC Y ALFREDO W/WO MXML VOL VNTJ ECHO 47701 LUCY AYALA TTHRC R-T 4 [facility] 2D INC INC W/WOM-MOD E COMPL SPEC&COLR D CV STRS 69706 KEITH MORENO TST 4 XERS&/OR RX CONT ECG W/O I&R MYOCARDIA 33879 TEX Parra 4 MEDICAL EMY PERFUSION IMAGING PLANAR ASS MULTIPLE STUDIES MYOCARDIA 75465 LUCY AYALA L SPECT 4 [facility] MULTIPLE INC INC STUDIES CV STRS 51548 GLENN ELIZABETH JR TST 4 DWI DWI XERS&/OR RX CONT ECG I&R ONLY RADIOLOGI 51952 [place] FRANCESCA C EXAM 4 MEDICAL EMY [...] DON SONE ACETATE & PHOSPHATE 3 MG INJECTION J0690 JAMES JAMES 3 DON DON CEFAZOLIN SODIUM 500 MG RADIOLOGI 97466 LUCY AYALA C EXAM 3 [facility] [...] EQUIPME EQUIPME FLWMTR HUMIDFR&M ASK CT THORAX 41031 [place] FRANCES[facility] W/O 2 MEDICAL EMY CONTRAST IMAGING MATERIAL ASS 3D 73525 [place] FRANCES[facility] RENDERING 2 MEDICAL EMY IMAGING W/INTERP& ASS POSTPROC DIFF WORK STATION PRTBLE E0431 MILDRED MILDRED GASEOUS 2 HOME HOME O2 SYS MEDICAL MEDICAL RENT; EQUIPME EQUIPME FLWMTR HUMIDFR&M ASK TOBACCO 64010 JAMES JAMES USE 2 DON DON CESSATION INTERMEDI ATE 3-10 MINUTES PRTBLE E0431 MILDRED MILDRED GASEOUS 2 HOME HOME O2 SYS MEDICAL MEDICAL RENT; EQUIPME EQUIPME FLWMTR HUMIDFR&M ASK PRTBLE E0431 MILDRED MILDRED GASEOUS 2 HOME HOME O2 SYS MEDICAL MEDICAL RENT; EQUIPME EQUIPME FLWMTR HUMIDFR&M ASK RADIOLOGI 09543 TEX MA C EXAM 2 MEDICAL EMY CHEST 2 IMAGING VIEWS ASS FRONTAL&L ATERAL SPMTRY 27003 MARIS POLLOCK W/VC 2 JAM JAM EXPIRATOR Y ALFREDO W/WO MXML VOL VNTJ PRTBLE E0431 MILDRED MILDRED GASEOUS 2 HOME HOME O2 SYS MEDICAL MEDICAL RENT; EQUIPME EQUIPME FLWMTR HUMIDFR&M ASK CYANOCOBA 11888 LUC[facility] A[facility]ALA BETTIE 2 [facility] VITAMIN INC INC B-12 THORACENT 66837 LUCY AYALA ESIS 2 [facility] PUNCTURE INC INC [place] [address] LUCY AYALA IRON 2 [facility] INC INC CARBOXYHE 32770 LUCY AYALA MOGLOBIN 2 [facility] QUANTITAT INC INC ARCENIO COLLECTIO 74364 LUCY AYALA N VENOUS 2 [facility] BLOOD INC INC VENIPUNCT URE CELL 07920 LUCY AYALA COUNT 2 [facility] MISC BODY INC INC FLUIDS W/DIFFERE NTIAL COUNT CYTP 60864 PATHOLOGY PATHOLOGY SLCTV 2 & & CELL CYTOLOGY CYTOLOGY ENHANCEME LAB LAB NT INTERPJ XCPT C/V SMR PRIM 17245 LUCY AYALA SRC 2 [facility] GRAM/GIEM INC INC SA STAIN BCT FUNGI/VAHID L BLOOD 51096 LUCY AYALA GASES ANY 2 [facility] INC INC COMBINATI ON PH PCO2 PO2 CO2 HCO3 GLUCOSE 46419 LUCY AYALA BODY 2 [facility] FLUID INC INC OTHER THAN BLOOD IRON 06383 LUCY AYALA BINDING 2 [facility] CAPACITY INC INC CUL BACT 02769 LUCY LUCY XCPT 2 [facility] URINE INC INC BLOOD/STO OL AEROBIC ISOL CULTURE 31976 LUCYJOAN AYALA BACTERIAL 2 [facility] ANY INC INC SOURCE ANAEROBIC ISO&ID CULTURE 34692 LUCY AYALA TUBERCLE/ 2 [facility] OTH INC INC ACID-FAST BACILLI ANY ISOL LACTATE 55309 LUCY AYALA DEHYDROGE 2 [facility] NASE LDH INC INC PROTEIN 19664 LUCY AYALA XCPT 2 [facility] REFRACTOM INC INC ETRY SERUM PLASMA/WH L BLD TISS FRED 40903 LUCY AYALA SLIDE 2 [facility] SAMPS INC INC SKN/HR/NL S FNGI/ECTO PARASIT NONINVASI 89583 LUCY AYALA VE 2 [facility] EAR/PULSE INC INC OXIMETRY SINGLE DETER RADIOLOGI 90270 LUCY AYALA C EXAM 2 [facility] CHEST 2 INC INC VIEWS FRONTAL&L ATERAL CT THORAX 34518 LUCY AYALA W/O 2 [facility] [place] [address] LUCY AYALA GUIDANCE 2 [facility] NEEDLE INC INC PLACEMENT 3D 57725 [place] FRANCES[facility] RENDERING 2 MEDICAL EMY IMAGING W/INTERP& ASS POSTPROC DIFF WORK STATION CT THORAX 14300 LUCY AYALA W/O 2 [facility] CONTRAST INC INC MATERIAL ECG 31316 RUSH BEVERLY ROUTINE 2 JENNA JENNA ECG W/LEAST 12 LDS I&R ONLY ECG 66357 LUCY AYALA ROUTINE 2 [facility] ECG INC INC W/LEAST 12 LDS TRCG ONLY W/O I&R SPUTUM 43887 LUCY AYALA OBTAINING 2 [facility] SPEC INC INC AEROSOL INDUCED TX SPX PRTBLE E0431 MILDRED LEVY GASEOUS 2 HOME HOME O2 SYS MEDICAL MEDICAL RENT; [facility] ASK PRTBLE E0431 MIL[place] GASEOUS 2 HOME HOME O2 SYS MEDICAL MEDICAL RENT; EQUIPME EQUIPME FLWMTR HUMIDFR&M ASK SPMTRY 30814 LUC[facility] A[facility] W/VC 2 [facility] EXPIRATOR INC INC Y ALFREDO W/WO MXML VOL VNTJ PRTBLE E0431 MIL[place] GASEOUS 2 HOME HOME O2 SYS MEDICAL MEDICAL RENT; EQUIPME EQUIPME FLWMTR HUMIDFR&M ASK PRTBLE E0431 [place] GASEOUS 2 HOME HOME O2 SYS MEDICAL MEDICAL RENT; EQUIPME EQUIPME FLWMTR HUMIDFR&M ASK RADIOLOGI 05110 ERIKA JAMES C EXAM 2 DON DON CHEST 2 VIEWS FRONTAL&L ATERAL CT THORAX 35236 [place] FRANCESCA 2 MEDICAL EMY W/[place] [address] COMBINED COMBINED PROSTATE 2 PHYSICIAN PHYSICIAN SPECIFIC S LA S LA ANTIGEN TOTAL COMPREHEN 38870 COMBINED COMBINED SIVE 2 PHYSICIAN PHYSICIAN METABOLIC S LA S LA PANEL BLOOD 38951 COMBINED COMBINED COUNT 2 PHYSICIAN PHYSICIAN COMPLETE S LA S LA AUTO&AUTO DIFRNTL WBC LIPID 27267 COMBINED COMBINED PANEL 2 PHYSICIAN PHYSICIAN S LA S LA PRTBLE E0431 MILDRED LEVY GASEOUS 2 HOME [...] O2 SYS MEDICAL MEDICAL RENT; EQUIPME EQUIPME [facility] HUMIDFR&M ASK O2 CONC 1 E1390 [place] 1 HOME HOME 85%/>02 MEDICAL MEDICAL CONC AT EQUIPME EQUIPME [facility] FLW RATE PRTBLE E0431 MILDRED LEVY GASEOUS 1 HOME HOME O2 SYS MEDICAL MEDICAL RENT; EQUIPME EQUIPME [facility] HUMIDFR&M ASK O2 CONC 1 E1390 MILDRED LU[place] [facility] 1 HOME HOME 85%/>02 MEDICAL MEDICAL CONC AT EQUIPME EQUIPME [facility] FLW RATE O2 CONC 1 E1390 MILDRED LUIS [facility] 1 HOME MED HOME MED 85%/>02 EQUIP. L EQUIP. L CONC AT [facility] FLW RATE PRTBLE E0431 MILDRED LEVY GASEOUS 1 HOME MED HOME MED O2 SYS EQUIP. L EQUIP. L RENT; [facility] HUMIDFR&M ASK PRTBLE E0431 MILDRED LEVY GASEOUS 1 HOME MED HOME MED O2 SYS EQUIP. L EQUIP. L RENT; [facility] HUMIDFR&M ASK O2 CONC 1 E1390 [place] 1 HOME MED HOME MED 85%/>02 EQUIP. L EQUIP. L CONC AT [facility] FLW RATE O2 CONC 1 E1390 MILDRED LUIS [facility] 1 HOME MED HOME MED 85%/>02 EQUIP. L EQUIP. L CONC AT [facility] FLW RATE PRTBLE E0431 MILDRED LEVY GASEOUS 1 HOME MED HOME MED O2 SYS EQUIP. L [facility]. L [facility] PRTBLE E0431 MILDR[place] LEV[place] GASEOUS 1 HOME MED HOME MED O2 SYS EQUIP. L [facility]QUIP. L [facility] ASK O2 CONC 1 E1390 [place] 1 HOME MED HOME MED 85%/>02 EQUIP. L EQUIP. L CONC AT [facility] FLW RATE O2 CONC 1 E1390 MILDRED [place] 1 HOME MED HOME MED 85%/>02 EQUIP. L EQUIP. L CONC AT [facility] FLW RATE PRTBLE E0431 MILDRED LEVY GASEOUS 1 HOME MED HOME MED O2 SYS EQUIP. L EQUIP. L RENT; [facility] HUMIDFR&M ASK PRTBLE E0431 MILDRED LEVY GASEOUS 0 HOME MED HOME MED O2 SYS EQUIP. L EQUIP. L RENT; [facility] HUMIDFR&M ASK O2 CONC 1 E1390 [place] 0 HOME MED HOME MED 85%/>02 EQUIP. L EQUIP. L CONC AT [facility] FLW RATE O2 CONC 1 E1390 [place] 0 HOME MED HOME MED 85%/>02 EQUIP. L EQUIP. L CONC AT [facility] FLW RATE PRTBLE E0431 MILDRED LEVY GASEOUS 0 HOME MED HOME MED O2 SYS EQUIP. L EQUIP. L RENT; [facility] HUMIDFR&M ASK PRTBLE E0431 MILDRED [place] GASEOUS 0 HOME MED HOME MED O2 SYS EQUIP. L EQUIP. L RENT; [facility] HUMIDFR&M ASK O2 CONC 1 E1390 [place] 0 HOME MED HOME MED 85%/>02 EQUIP. L EQUIP. L CONC AT [facility] FLW RATE PRTBLE E0431 MILDRED LEVY GASEOUS 0 HOME MED HOME MED O2 SYS EQUIP. L EQUIP. L RENT; [facility] HUMIDFR&M ASK O2 CONC 1 E1390 [place] 0 HOME MED HOME MED 85%/>02 EQUIP. L EQUIP. L CONC AT [facility] FLW RATE SPECIAL 51471 [facility] STAIN 0 Y Y GROUP 1 [facility] MICROORGA NISMS I&R BRONCHOSC 56213 [facility] Y Y W/TRANSMT. [facility] ONCHIAL LUNG BX 1 LOBE BRONCHOSC 48232 [facility] OPY 0 Y Y NEEDLE [facility] TRACHEA MAIN STEM&/BRO N CULTURE 36571 [facility] FNGI 0 Y Y MOLD/[facility] T PRSMPTV OTH XCPT BLOOD IAADI 87774 [facility] PNEUMOCUS 0 Y Y TIS [facility] CARINII SMR PRIM 84026 [facility] SRC 0 Y Y FLUORESCE [facility] NT&/AFS BCT FNGI PARASIT TISS FRED 66092 [facility] SLIDE 0 [facility] SKN/HR/NL S FNGI/ECTO PARASIT CULTURE 50173 [facility] TUBERCLE/ 0 Y Y OTH [facility] ACID-FAST BACILLI ANY ISOL BRNCHSC 44107 [facility] W/BRNCL 0 Y Y ALVEOLAR [facility] LAVAGE CUL BACT 28874 [facility] XCPT 0 Y Y URINE [facility] BLOOD/STO OL AEROBIC ISOL VIRUS 91122 [facility] CENTRIFUG 0 Y Y E [facility] ID IMFLUOR STAIN EA CULTURE 42469 [facility] FUNGI 0 Y Y DEFINITIV [facility] E ID EACH ORGANISM [facility] PRIM 85291 [facility] SRC 0 Y Y GRAM/GIEM [facility] SA STAIN BCT FUNGI/VAHID L CELL 40149 [facility] COUNT 0 Y Y MISC BODY [facility] FLU[place] [address] [facility] SURG 0 Y Y PATHOLOGY [facility] GROSS&JESS ROSCOPIC EXAM CYTP FINE 42786 [facility] NDL 0 Y Y ASPIRATE [facility] IMMT CYTOHIST STD DX 1ST CYTP EVAL 41308 [facility] FINE 0 Y Y NEEDLE [facility] ASPIRATE INTERP & REPORT CONCENTRA 52624 [facility] TION 0 Y Y INFECTIOU [facility] S AGENTS VIRUS 35528 [facility] TISS CUL 0 Y [facility] ON CYTOPATHI C EFFECT IADNA NOS 94941 [facility] 0 Y Y AMPLIFIED [facility] PROBE TQ EACH ORGANISM RADIOLOGI 09286 [facility] C 0 [facility] ON CHEST SINGLE VIEW FRONTAL INJECTION J2250 [facility] 0 Y Y MIDAZOLAM [facility] HCL PER 1 MG INJECTION J3010 [facility] FENTANYL 0 Y Y CITRATE [facility] 0.1 MG O2 CONC 1 E1390 [place] 0 HOME MED HOME MED 85%/>02 EQUIP. L EQUIP. L CONC AT [facility] FLW RATE PRTBLE E0431 MILDRED LEVY GASEOUS 0 HOME MED HOME MED O2 SYS EQUIP. L EQUIP. L RENT; [facility] HUMIDFR&M ASK PHLEBOTOM 10012 COMBINED COMBINED Y 0 PHYSICIAN PHYSICIAN THERAPEUT S LA S LA IC SEPARATE PROCEDURE RADEX 06796 [place] [facility] ESOPHAGUS 0 MEDICAL MEY IMAGING ASS DUP-SCAN 27179 [place] [facility] XTR VEINS 0 MEDICAL EMY COMPLETE IMAGING ASS BILATERAL STUDY PULMONARY 05287 [place] PO[place] STRESS 0 MEDICAL JAM TESTING SERV SIMPLE FOUNDATIO BRNCDILAT 66866 LUC[facility] RSPSE 0 [facility] SPMTRY INC INC PRE&POST- BRNCDILAT ADMN BLOOD 75724 [facility] COUNT 0 [facility] COMPLETE INC INC AUTO&AUTO DIFRNTL WBC COLLECTIO 30081 [facility]UC[facility] N VENOUS 0 [facility] BLOOD INC INC VENIPUNCT URE COMPREHEN 80788 LUCY AYALA SIVE 0 [facility] METABOLIC INC INC PANEL COMPREHEN 94470 COMBINED COMBINED SIVE 0 PHYSICIAN PHYSICIAN METABOLIC S LAB S LAB PANEL COLLECTIO 51216 COMBINED COMBINED N VENOUS 0 PHYSICIAN PHYSICIAN BLOOD S LAB S LAB VENIPUNCT URE CT THORAX 81993 [place] NELLY W/O 0 MEDICAL KEY CONTRAST IMAGING MATERIAL ASS 3D 77877 [place] NELLY RENDERING 0 MEDICAL KEY IMAGING W/INTERP& ASS POSTPROC DIFF WORK STATION RADIOLOGI 89086 [place] FRANCESCA C EXAM 0 MEDICAL EMY CHEST 2 IMAGING VIEWS ASS FRONTAL&L ATERAL PRTBLE E0431 MIL[place] L[place] GASEOUS 0 HOME MED HOME MED O2 SYS EQUIP. EQUIP. RENT; [facility] NYWMTR HUMIDFR&M ASK O2 CONC 1 E1390 [place] 0 HOME MED HOME MED 85%/>02 EQUIP. EQUIP. CONC AT [facility] FLW RATE O2 CONC 1 E1390 MILDRED [place] 0 HOME MED HOME MED 85%/>02 EQUIP. EQUIP. CONC AT [facility] FLW RATE PRTBLE E0431 MILDRED LEVY GASEOUS 0 HOME MED HOME MED O2 SYS EQUIP. EQUIP. RENT; [facility] FL[facility]DER HUMIDFR&M ASK RADIOLOGI 46910 ERIKA JAMES C EXAM 0 DON R DON R CHEST 2 VIEWS FRONTAL&L ATERAL ECG 77119 ERIKA JAMES, ROUTINE 0 DON R DON R ECG W/LEAST 12 LDS W/I&R INJECTION J1940 ERIKA JAMES, 0 DON R DON R FUROSEMID E UP TO 20 MG RADIOLOGI 68159 ERIKA JAMES C 0 DON R DON R EXAMINATI ON CHEST SING[facility] 88765 JAMESERIKA VELASCO, DISCHARGE 0 DON R DON R DAY MANAGEMEN T 30 MIN/< RADIOLOGI 76988 Kristy VALENTIN EXAM 0 MEDICAL JANE P CHEST 2 IMAGING VIEWS ASSOCIATE FRONTAL&L S ATERAL [facility] 9[address] [facility] 0 DON R DON R CARE/DAY 25 MINUTES [facility] [address] [facility] 0 DON R DON R CARE/DAY 25 MINUTES [facility] [address]1937 [facility] 0 DON R DON R CARE/DAY 25 MINUTES [facility] 98146 [facility] 0 DON R DON R CARE/DAY [address] THORAX 41471 [place] [facility], 0 MEDICAL SHASHI W/CONTRAS IMAGING T ASSOCIATE MATERIAL S 3D 74356 [place] [facility], RENDERING 0 MEDICAL SHASHI IMAGING W/INTERP& ASSOCIATE POSTPROC S DIFF WORK STATION [facility] [address] [facility] 0 DON R DON R CARE/DAY 25 MINUTES INITIAL 07560 [facility] 0 DON R DON R CARE/DAY 50 MINUTES RADIOLOGI 10487 ERIKA JAMES 0 DON R DON R EXAMINATI ON CHEST SINGLE VIEW FRONTAL RADIOLOGI 76707 [place] Kristy MA EXAM 0 MEDICAL SHASHI CHEST 2 IMAGING VIEWS ASSOCIATE FRONTAL&L S ATERAL OPHTH 94790 [facility], [facility] 9 DONTE A DONTE A XM&EVAL COMPRHNSV ESTAB PT 1/> OPHTH 11816 RETINA & NINI, MEDICAL 9 VITREOUS CALLIE W XM&EVAL ASSOCIATE INTERMEDI S O ATE ESTAB PT SCANNING 38787 RETINA & NINI, OPHTHALMI 9 VITREOUS CALLIE W C IMAGING ASSOCIATE S O POSTERIOR SGM UNI INJECTION J1040 ERIKA JAMES 8 DON R DON R METHYLPRE DNISOLONE ACETATE 80 MG SCANNING 95533 [facility] & NINI, OPHTHALMI 8 VITREOUS CALLIE W C IMAGING ASSOCIATE S O POSTERIOR SGM UNI OPHTH 63894 RET[facility] & NINI, MEDICAL 8 VITREOUS CALLIE W XM&EVAL ASSOCIATE INTERMEDI S O ATE ESTAB PT INJECTION J1040 ERIKA JAMES 8 DON R DON R METHYLPRE DNISOLONE ACETATE 80 MG [facility] 49566 [facility] 8 DONTE A DONTE A XM&EVAL COMPRHNSV ESTAB PT 1/> OPHTH 48810 RETINA & NINI, MEDICAL 8 VITREOUS CALLIE W XM&EVAL ASSOCIATE INTERMEDI S O ATE ESTAB PT SCANNING 19723 RETINA & NINI, OPHTHALMI 8 VITREOUS CALLIE W C IMAGING ASSOCIATE S O POSTERIOR SGM UNI INJECTION J1040 ERIKA JAMES 8 DON R DON R METHYLPRE DNISOLONE ACETATE 80 MG RADIOLOGI 69777 ERIKA JAMES C EXAM 8 DON R DON R CHEST 2 VIEWS FRONTAL&L ATERAL SCANNING 16322 RET[facility] & RETINA & OPHTHALMI 8 VITREOUS VITREOUS C IMAGING ASSOCIATE ASSOCIATE S O S O POSTERIOR SGM UNI OPHTH 05007 RET[facility] & RETINA & MEDICAL 8 VITREOUS VITREOUS XM&EVAL ASSOCIATE ASSOCIATE INTERMEDI S O S O ATE ESTAB PT OPHTH 95979 [facility] & RET[facility] & MEDICAL 8 VITREOUS VITREOUS XM&EVAL ASSOCIATE ASSOCIATE INTERMEDI S O S O ATE ESTAB PT SCANNING 35281 RETINA & RETINA & OPHTHALMI 8 VITREOUS VITREOUS C IMAGING ASSOCIATE ASSOCIATE S O S O POSTERIOR SGM UNI INJECTION [id number] ERIKA JAMES, Adán RUTHERFORD R DON R DEXAMETHO SONE SODIUM PHOSPHATE 1 MG Encounters Encounter Start End Date Code Location Performer Type Date OFFICE 58073 [facility] RHIANNON OUTPATIRYLEE 7 7 PHYSICIAN T VISIT S GROUP 40 MINUTES OFFICE 06976 A Kristy ROY OUTPATIRYLEE 7 7 PILAR PLEITEZ T VISIT PSC 15 MINUTES OFFICE [address] [facility] OUTPATIRYLEE 7 7 Y OF CK T VISIT [place] 25 HOS[facility] MINUTES [facility] - 7 7 [facility] INPATIENT INC OFFICE [id number] A Kristy ROY OUTPATIEN 7 7 PILAR PLEITEZ T VISIT PSC 15 MINUTES OFFICE 23337 A Kristy ROY OUTPATIEN 7 7 [facility] [place] T VISIT PSC 15 MINUTES [facility] - 6 6 [facility] OUTPATIEN INC T OFFICE 28615 [facility] POLLOCK OUTPATIEN 6 6 MEDICAL JAM T VISIT SERV 25 FOUNDATIO MINUTES N OFFICE 16241 [facility] FANTA MORALES OUTPATIEN 6 6 PHYSICIAN RITA T VISIT S GROUP 10 MINUTES [facility]OSPITAL LUC[facility] - 6 6 [facility] OUTPATIEN INC T OFFICE 02050 [facility] OUTPATIEN 6 6 [facility] T VISIT HOSPITAL 10 P MINUTES OFFICE 84961 [place] OUTPATIEN 6 6 MEDICAL JAM T VISIT SERV 15 FOUNDATIO MINUTES N OFFICE 69252 [facility] OUTPATIEN 6 6 [facility] MINUT[facility] P OFFICE 19130 [facility] ALLRAN JR OUTPATIEN 6 6 PHYSICIAN RITA T VISIT S GROUP 15 MINUTES [facility]OSPITAL LUCY - 6 6 [facility] OUTPATIEN INC T OFFICE 48239 [facility] ALLRAN JR OUTPATIEN 6 6 PHYSICIAN RITA T NEW 45 S GROUP MINUTES OFFICE 87563 [place] OUTPATIEN 6 6 MEDICAL JAM T VISIT SERV 25 FOUNDATIO MINUTES [facility] LUCY - 6 6 [facility] OUTPATIEN INC T OFFICE 81891 [place] OUTPATIEN 6 6 MEDICAL JAM T VISIT SERV 25 FOUNDATIO MINUTES N EMERGENCY 88997 [facility] DEPT 6 6 Y OF MADALYN VISIT [facility] SEVER[facility]& THREAT [facility] LUCY - 6 6 [facility] OUTPATIEN INC T OFFICE 06461 A Kristy WEST OUTPATIEN 6 6 P[place]LEITE[place] T VISIT PSC 15 MINUTES OFFICE 33944 A Kristy WEST OUTPATIEN 6 6 PILAR PLEITEZ T VISIT PSC 15 MINUTES OFFICE 86434 [place] OUTPATIEN 6 6 MEDICAL JAM T VISIT SERV 40 FOUNDATIO MINUTES N HOSPITAL LUCY - 6 6 [facility] INPATIENT INC OFFICE 41835 [place] OUTPATIEN 6 6 MEDICAL T VISIT SERV 25 FOUNDATIO MINUTES [facility] LUCY - 6 6 [facility] OUTPATIEN INC T [place]ICE 52980 [place] OUTPATIEN 6 6 MEDICAL JAM T VISIT SERV 15 FOUNDATIO MINUTES [facility] LUCY - 5 5 [facility] OUTPATIEN [facility] L[facility] - 5 5 [facility] LUCY - 5 5 [facility] OFFICE 50996 A C FIELD AMB OUTPATIEN 5 5 PILAR PLEITEZ T VISIT PSC 15 MINUTES OFFICE 17753 A C FIELD AMB OUTPATIEN 4 4 PILAR PLEITEZ T VISIT PSC 15 MINUTES [facility]OSPITAL LUCY - 4 4 [facility]IEN [facility]UC[facility] - 4 4 [facility]PATI[facility]UC[facility] - 4 4 [facility] LUC[facility] - 4 4 [facility]UC[facility] - 4 4 [facility] - 4 4 [facility] LUCY - 4 4 [facility] OFFICE 53872 FIELD AMB FIELD AMB OUTPATIEN 4 4 T VISIT 15 MINUTES OFFICE 45125 FIELD AMB FIELD AMB OUTPATIEN 3 3 T VISIT 15 MINUTES OFFICE 32593 A C FIELD AMB OUTPATIEN 3 3 PILAR PLEITEZ T NEW 30 PSC MINUTES OFFICE 50415 ERIKA MELENDREZS OUTPATIEN 3 3 DON DON T VISIT 15 MINUTES [facility]OSPITAL LUCY - 3 3 [facility] OFFICE 58703 ERIKA WHITLOCKHENS OUTPATIEN 3 3 DON DON T VISIT 15 MINUTES [facility]OSPITAL LUCY - 2 2 [facility] OFFICE 75348 ERIKA MELENDREZS OUTPATIEN 2 2 DON DON T VISIT 15 MINUTES [facility]OSPITAL LUCY - 2 2 [facility] OUT[facility]EN [facility]UC[facility] [address] [facility] [address] [facility] OUTPATIEN [facility] OFFICE [id number] ERIKA MELENDREZS OUTPATIEN 2 2 DON DON T VISIT 15 MINUTES OFFICE [id number] ERIKA WHITLOCKHENS OUTPATIEN 1 1 DON DON T VISIT 15 MINUTES OFFICE [id number] ERIKA WHITLOCKHENS OUTPATIEN 1 1 DON DON T VISIT 15 MINUTES OFFICE [id number] ERIKA WHITLOCKHENS OUTPATIEN 1 1 DON DON T VISIT 15 MINUTES OFFICE [id number] ERIKA JAMES OUTPATIEN 1 1 DON DON T VISIT 15 MINUTES [facility]OSPITAL UN[facility]ERS[facility] - 0 0 [facility] 0 0 [facility] 0 0 [facility] OUTPATIEN [facility] OFFICE [id number] ERIKA JAMES, OUTPATIEN 0 0 DON R DON R T VISIT 15 MINUTES OFFICE [id number] ERIKA JAMES OUTPATIEN 0 0 DON R DON R T VISIT 25 MINUTES OFFICE [id number] ERIKA JAMES OUTPATIEN 0 0 DON R DON R T VISIT 15 MINUTES OFFICE [id number] JAMESERIKA OUTPATIEN 8 8 DON R DON R T VISIT 15 MINUTES OFFICE 16062 ERIKA JAMES OUTPATIEN 8 8 DON R DON R T VISIT 15 MINUTES OFFICE [id number] ERIKA JAMES OUTPATIEN 8 8 DON R DON R T VISIT 15 MINUTES OFFICE [id number] ERIKA JAMES OUTPATIEN 8 8 DON R DON R T VISIT 15 MINUTES OFFICE 11596 ERIKA JMAES OUTPATIEN 8 8 DON R DON R T VISIT 15 MINUTES
--- OUTSIDE RECORDS SUMMARY | 2016-10-24 17:16 | External Medical Summary Rpt ---
Author Author , Organization [employer] Address Unknown Phone Unavailable Care Team Providers Care Design Painter Name Role Phone A Kristy QUEZADA MD [...] Unavailable [facility]available Unavailable SERVICE, [employer] [facility] Unavailable Unavailable SERVICE, [employer] [facility] Unavailable Unavailable [place], [...] Unavailable TAYLOR KEYANA, TAYLOR Unavailable Unavailable KEYANA [facility] Unavailable Unavailable INC, [facility] Unavailable Unavailable HOSPITAL P, [facility] DONTE RUIZ A, Unavailable Unavailable DONTE RUIZ [facility], Unavailable Unavailable [facility] ARMENDARIZ JENNA, ARMENDARIZ JENNA Unavailable Unavailable HUI MIKHAIL, HUI MIKHAIL Unavailable Unavailable BECKY NIXON, BECKY Unavailable Unavailable [facility], [facility] NINI, CALLIE W, Unavailable Unavailable NINI, CALLIE W [facility] Un[facility] GLENN JR, GLENN JR Unavailable Unavailable GLENN JR DWI, GLENN Unavailable Unavailable JR DWI [facility] Unavailable Unavailable INTER[facility] MED, [facility] JAMES CON, JAMES CON [...] PHARM #[id number] [facility] Unavailable Unavailable [id number] # [id number], [facility] [id number] # [id number] SHANELL CAR, Unavailable Unavailable SHANELL [...] EQUIPME JAMES DON, Unavailable Unavailable JAMES DON JAEMS DON, Unavailable Unavailable JAMES DON JAMES, DON R, Unavailable Unavailable JAMES, DON R RAYMOND RONNY, RAYMOND Unavailable Unavailable RONNY JANENE PALMA, JANENE Unavailable Unavailable PALMA JANENE BERGMAN, JANENE Unavailable Unavailable OTTO BOOTH Unavailable Unavailable [facility], Unavailable Unavailable [facility] HIEU FRANCO, HIEU Unavailable Unavailable [facility], Unavailable [facility], Unavailable [facility]available [facility] ZAGUROVSKAYA MAR, Unavailable Unavailable ZAGUROVSKAYA MAR Purpose Continuity of Care Document - 04-25-2007 through 2016 Problems Code Diagnosis DOS Provider Status 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 09-11-2016 [facility] E785 HYPERLIPIDE 09-04-2016 [facility] UNSPECIFIED GROUP I119 HYPERTENSIV 09-04-2016 [facility] E HEART PHYSICIANS DISEASE GROUP WITHOUT HEART FAILURE I2510 [facility] [place] 09-04-2016 [facility] 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 W/[facility] P ANGINA PECTORIS I272 OTHER 08-25-2016 [facility] HYPERTENSIO N R0602 SHORTNESS 08-25-2016 [place] [facility] R079 CHEST PAIN 08-25-2016 [facility] I4891 UNSPECIFIED 07-03-2016 [...] MD PSC FIBRILLATIO N C9110 CHRONIC 01-11-2016 [facility] 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 R634 ABNORMAL 01-11-2016 [facility] WEIGHT LOSS [facility] INC R1110 VOMITING 01-09-2016 [facility] UNSPECIFIED PHYSICIANS GROUP K828 OTHER 01-02-2016 [place] SPECIFIED MEDICAL DISEASES OF IMAGING ASS GALLBLADDER R630 ANOREXIA 01-02-2016 [facility] K921 MELENA 11-07-2015 [facility] K5710 DIVERTICULO 11-03-2015 [place] SIS SM MEDICAL INTEST W/O IMAGING ASS PERF/ABSC W/O BLEED R195 OTHER FECAL 11-03-2015 [facility] ABNORMALITI IMAGING ASS ES 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 LYMPHOCYTOS 10-26-2015 MOLEC[facility] IS PATHOLOGY SYMPTOMATIC LAB NETW J690 PNEUMONITIS 10-26-2015 [facility] D[facility] TO [facility] INHALATION [facility] OF FOOD AND VOMIT B370 CANDIDAL 10-19-2015 [facility] STOMATITIS SERV [facility] R112 NAUSEA WITH 10-19-2015 [facility] VOMIT[facility] SERV UNSPECIFIED FOUNDATION I509 HEART 10-15-2015 [facility] FAILURE HOME UNSPECIFIED MEDICAL EQUIPME R531 WEAKNESS 09-20-2015 [facility] 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 SERV [facility] R9431 ABNORMAL 09-18-2015 [facility] ELECTROCARD SERV IOGRAM FOUNDATION I4510 UNSPECIFIED 09-15-2015 [facility] RIGHT SERV BUNDLE-BRAN FOUNDATION CH BLOCK R001 BRADYCARDIA 09-15-2015 [facility] UNSPECIFIED FOUNDATION B965 PSEUDOMONAS 09-14-2015 [facility] CAUSE OF SERV DZ [facility] CLASSIFIED ELSEWHERE J9600 ACUTE 09-14-2015 [facility] RESPIRATORY SERV FAIL UNS FOUNDATION HYPOXIA/HYP ERCAPNIA J9811 ATELECTASIS 09-14-2015 [facility] V35683 ENCOUNTER 09-14-2015 [facility] SURG SERV AFTERCARE [facility] FLW SURG DIGESTIVE SYS Z049 ENCOUNTER 09-13-2015 [facility] EXAMINATION SERV &OBSERVATIO FOUNDATION N FOR UNS REASON K5900 CONSTIPATIO 09-12-2015 [facility] N SERV UNSPECIFIED FOUNDATION R140 ABDOMINAL 09-10-2015 [facility] DISTENSION SERV GASEOUS [facility]OUND[facility] R0989 OTH SPEC SX 09-09-2015 [facility] & SIGNS SERV INVLV THE FOUNDATION CIRC & RESP SYS R918 OTHER 09-09-2015 [facility] NONSPECIFIC SERV ABNORMAL [facility]OUNDATION FINDING OF LUNG FIELD A419 SEPSIS 09-08-2015 [facility] UNSPECIFIED SERV ORGANISM FOUNDATION E873 ALKALOSIS 09-08-2015 [facility] E876 HYPOKALEMIA 09-08-2015 [facility] J90 PLEURAL 09-08-2015 [facility] EFFUSION SERV NOT FOUNDATION ELSEWHERE CLASSIFIED J9620 ACUTE 09-08-2015 [facility] CHRONIC SERV RESP FAIL FOUNDATION UNS HYPOXIA/HYP ERCAPNIA J984 OTHER 09-08-2015 [facility] DISORDERS SERV OF LUNG FOUNDATION R109 UNSPECIFIED 09-08-2015 [facility] ABDOMINAL SERV PAIN FOUNDATION Z4682 ENCOUNTER 09-08-2015 [facility] ADJUST HOSPI NON-VASCULA R CATHETER 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 SERV UNSPECIFIED FOUNDATION I517 CARDIOMEGAL 09-07-2015 [facility] Y SERV [facility] I5189 OTHER 09-07-2015 [facility] ILL-DEFINED SERV HEART [facility]ATION DISEASES R0902 HYPOXEMIA 09-06-2015 [facility] R0689 OTHER 09-02-2015 [facility] ABNORMALITI SERV ES OF FOUNDATION BREATHING J942 HEMOTHORAX 08-30-2015 [facility] J948 OTHER 08-30-2015 [facility] SPECIFIED SERV PLEURAL FOUNDATION CONDITIONS L538 OTHER 08-30-2015 [facility] SPECIFIED SERV ERYTHEMATOU FOUNDATION S CONDITIONS Z9889 OTHER 08-30-2015 [facility] SPECIFIED SERV POSTPROCEDU FOUNDATION RAL STATES 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 K4030 UNILAT 08-25-2015 [place] INGUINAL [facility] NGUYEN W/OBST HOSPI W/O GANGRN NOT RECUR K4040 UNILAT 08-25-2015 [facility] INGUINAL SERV NGUYEN FOUNDATION W/GANGREN NOT SPEC RECUR 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 [facility] 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 USE SERV OF FOUNDATION ANTICOAGULA NTS D41777 ELEVATED 08-24-2015 [facility] P UNSPECIFIED K4090 UNILAT 08-24-2015 [facility] INGUINAL SERV NGUYEN W/O FOUNDATION OBST/GANGRE N NOT RECUR K5660 UNSPECIFIED 08-24-2015 [facility] INTESTINAL AMBULANCE SERVICE OBSTRUCTION R1031 RIGHT LOWER 08-24-2015 [place] QUADRANT [facility] PAIN HOSPI 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 J189 PNEUMONIA 08-03-2015 [place] UNSPECIFIED MEDICAL ORGANISM IMAGING ASS J439 EMPHYSEMA 08-03-2015 [place] UNSPECIFIED [place] INTERNAL MED J929 PLEURAL 08-03-2015 [place] [facility]ICAL WITHOUT IMAGING ASS ASBESTOS R002 PALPITATION 08-03-2015 [facility] S [facility] R031 NONSPECIFIC 08-03-2015 [facility] LOW SERV BLOOD-PRESS [facility] URE READING R42 DIZZINESS 08-03-2015 [facility] AND SERV GIDDINESS [facility] 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 08-03-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 MED J42 UNSPECIFIED 07-13-2015 [place] CHRONIC MEDICAL BRONCHITIS IMAGING ASS Z7722 CONTACT W/ 07-13-2015 [facility] & SUSPECTED SERV EXPOS [facility] ENVIR TOBACCO SMOKE J40 BRONCHITIS 03-25-2015 [place] NOT MEDICAL SPECIFIED IMAGING ASS ACUTE OR CHRONIC R091 PLEURISY 01-21-2015 [facility] 4280 CONGESTIVE 01-14-2015 [facility] HEART HOME FAILURE MEDICAL UNSPECIFIED EQUIPME 24951 OBSTRUCTIVE 01-14-2015 [facility] WITHOUT EXACERBAT 496 CHRONIC 01-14-[address] [facility] [address] HOME OBSTRUCTION MEDICAL NEC EQUIPME 35679 NUCLEAR 12-28-2014 [facility] SCLEROSIS JAMILAH 33973 OBST 09-06-2014 A Kristy QUEZADA CHRONIC PSC BRONCHITIS W/ACUTE BRONCHITIS 09337 LOSS OF 09-06-2014 A Kristy QUEZADA WEIGHT PSC 11046 OTHER CHEST 09-06-2014 A Kristy QUEZADA PAIN PSC 49186 OBSTRUCTIVE 09-05-2014 [facility] SLEEP HOME APNEA MEDICAL EQUIPME 7242 LUMBAGO 04-01-2014 A Kristy QUEZADA MD PSC V0382 NEED PROPH 04-01-2014 A Kristy QUEZADA VACCINATION PSC AGAINST STREP PNEUMONE 94377 ATRIAL 01-13-2014 [facility] FIBRILLATIO [facility] N INC 25730 REFLUX 01-13-2014 [facility] ESOPHAGITIS [facility] INC 80601 UNS 01-13-2014 [facility] GASTRITIS&G [facility] ASTRODUODIT INC IS W/O MENTION HEMORR 98726 ABDOMINAL 01-13-2014 [facility] PAIN, MEM HOSP GENERALIZED INC V5869 LONG-TERM 01-13-2014 [facility] (CURRENT) [facility] USE OF INC OTHER MEDICATIONS 70966 CHEST PAIN 11-24-2013 [facility] UNSPECIFIED [facility] INC 5110 PLEURISY 10-29-2013 [place] WITHOUT MEDICAL MENTION IMAGING ASS EFFUS/CURRE NT TB 7862 COUGH 10-29-2013 [facility] 47528 INSOMNIA 12-16-2012 A Kristy ANDREAIFIED PSC 49657 OTHER 12-16-2012 Darnell QUEZADA MALAISE AND PSC FATIGUE 45582 FEVER 05-23-2012 J[facility] UNSPECIFIED DON 51917 WHEEZING 05-23-2012 JAMES DON 1120 CANDIDIASIS 05-21-2012 JAMES OF MOUTH DON 23547 OTHER 05-21-2012 FRANCESCA DISEASES OF EMY LUNG NOT ELSEWHERE CLASSIFIED 4940 BRONCHIECTA 01-28-2012 [place] SIS WITHOUT MEDICAL ACUTE IMAGING ASS EXACERBATIO N 5119 UNSPECIFIED 01-28-2012 [place] PLEURAL MEDICAL EFFUSION IMAGING ASS 96591 OTHER 01-28-2012 [facility] NONSPECIFIC [facility] ABNORMAL INC FINDING OF LUNG FIELD 24983 OSTEOARTHRO 01-02-2012 JAMES S INVLV MX DON SITES [place] SPEC GEN 22207 OBSTRUCTIVE 11-12-2011 [facility] CHRONIC [facility] BRONCHITIS INC WITH EXACERBATIO N 10590 ESOPHAGEAL 11-12-2011 [facility] REFLUX [facility] INC 2859 UNSPECIFIED 10-05-2011 [facility] ANEMIA [facility] INC 5180 PULMONARY 10-05-2011 [place] [facility]SE [facility] 486 PNEUMONIA, 09-28-2011 [place] ORGANISM MEDICAL UNSPECIFIED IMAGING ASS 5070 PNEUMONITIS 09-28-2011 [place] DUE TO JAM INHALATION OF FOOD OR VOMITUS 46153 SHORTNESS 09-28-2011 [facility] OF BREATH [facility] INC 19045 ABDOMINAL 09-28-2011 [facility] PAIN, MEM HOS[facility] EPIGASTRIC INC V1261 PERSONAL 09-28-2011 [place] HISTORY JAM PNEUMONIA RECURRENT 45469 PNEUMONIA 06-08-2011 JAMES DUE TO DON OTHER SPECIFIED BACTERIA 2724 OTHER AND 05-11-2011 [facility] UNSPECIFIED PHYSICIANS [place] HYPERLIPIDE [place] 2768 HYPOPOTASSE 05-11-2011 [facility]ED [place] PHYSICIANS [place] 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, ATORY DON R PULMONARY FIBROSIS 10039 OSTEOARTHRO 08-23-2009 JAMES, SIS UNSPEC DON R WHETHER GEN/LOC LOWER LEG 43380 OSTEOARTHRO 08-23-2009 ERIKA, S UNSPEC DON R GEN/LOC OTH SPEC SITES 40454 MACULAR 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 RUIZ A N OF RETINA UNSPECIFIED 19874 NONEXUDATIV 07-20-2008 RETINA & 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 82480 EXUDATIVE 07-20-2008 RET[facility] & SENILE [facility]REOUS [facility] ASS[facility] DEGENERATIO O N OF RETINA 96915 CRYSTALLINE 07-20-2008 RETINA & DEPOSITS VITREOUS IN VITREOUS ASSOCIATES O 4610 ACUTE 02-27-2008 JAMES, MAXILLARY DON R SINUSITIS 4659 ACUTE URIS 02-27-2008 ERIKA, OF DON R UNSPECIFIED SITE 8472 LUMBAR 11-14-2007 JAMES, SPRAIN AND DON R STRAIN 4660 ACUTE 08-02-2007 JAMES, BRONCHITIS DON R 4871 INFLUENZA 07-04-2007 ERIKA, WITH OTHER DON R RESPIRATORY MANIFESTATI ONS 89681 PAIN IN 04-25-2007 JAMES, JOINT, DON R SHOULDER REGION 86542 UNSPECIFIED 04-25-2007 JAMES, SYNOVITIS DON R AND [...] YOUR YOUR SM VOL 7 PHARMACY PHARMACY [facility] PNEUMAT NEBULIZR DISPBL ALBUTEROL J7620 YOUR YOUR TO 2.5 7 PHARMACY PHARMACY & [employer] [facility] IPRATROPI UM BROM TO 0.5 MG ALBUTEROL J7620 A C A C TO 2.5 7 PILAR QUEZADA MD MG & PSC PSC IPRATROPI UM BROM TO 0.5 MG ECG 14914 [facility] ROUTINE 7 PHYSICIAN ECG S GROUP W/LEAST 12 LDS I&R ONLY R & L HRT 97364 [facility] RHIANNON CATH 7 PHYSICIAN WINJX HRT S GROUP ART& L VENTR IMG ECG 56224 [facility] ELIZABETH ROUTINE 7 [facility] W/LEAST P 12 LDS I&R ONLY RADIOLOGI 01126 [facility] 7 MEDICAL EXAMINATI IMAGING ON CHEST ASS SINGLE VIEW FRONTAL ADMN SET A7003 YOUR YOUR SM VOL 7 PHARMACY PHARMACY [employer] PNEUMAT NEBULIZR DISPBL ALBUTEROL J7620 YOUR YOUR TO 2.5 7 PHARMACY PHARMACY [employer] IPRATROPI UM BROM TO 0.5 MG O2 CONC 1 E1390 [facility] DEL PORT 7 HOME HOME 85%/>02 MEDICAL MEDICAL CONC AT EQUIPME EQUIPME PRSC FLW RATE O2 CONC 1 E1390 [facility] [place] 7 HOME HOME 85%/>02 MEDICAL MEDICAL CONC AT EQUIPME EQUIPME PRSC FLW RATE RADIOLOGI 07065 [facility] C EXAM 7 MEDICAL MEDICAL CHEST [...] YOUR YOUR SM VOL 6 PHARMACY PHARMACY [employer] PNEUMAT NEBULIZR DISPBL PHRM Q0513 YOUR YOUR DISPENSIN 6 PHARMACY PHARMACY G F[facility] [employer] INHALATIO N RX; PER 30 DAYS ALBUTEROL J7620 YOUR YOUR TO 2.5 6 PHARMACY PHARMACY [employer] IPRATROPI UM BROM TO 0.5 MG O2 CONC 1 E1390 [facility] HOME HOME 85%/>02 MEDICAL MEDICAL CONC AT EQUIPME EQUIPME PRSC [facility] G0463 [facility] AYALA OUTPATIEN 6 MEM HOS[facility]OS[facility] T CLIN INC INC VISIT ASSESS & MGMT PT O2 CONC 1 E1390 [facility] HOME HOME 85%/>02 MEDICAL MEDICAL CONC AT EQUIPME EQUIPME PRSC FLW RATE COLLECTIO 72017 [facility] AYALA N VENOUS 6 MEM HOSP [facility]OS[facility] BLOOD INC INC VENIPUNCT URE COMPREHEN 90701 [facility] SIVE 6 MEM HOS[facility] METABOLIC INC INC PANEL BLOOD 14587 [facility] A[facility]AL[facility] COUNT 6 [facility] COMPLETE INC INC AUTO&[place] [address] [facility] A[facility]ALA ABDOMEN 6 MEM HOS[facility] W/CONTRAS INC INC T MATERIAL LOCM Q9967 L[facility] AYALA 300-399 6 MEM HOS[facility] MG/ML INC INC IODINE CONCENTRA TION PER ML ANES 24394 [facility] UPPER GI 6 ANESTH PALMA ENDOSCOPY OF THE PROXIMAL BLUE TO DUODENUM O2 CONC 1 E1390 [facility] LUIS PORT 6 HOME HOME 85%/>02 MEDICAL MEDICAL CONC AT EQUIPME EQUIPME PRS FLW RATE O2 CONC 1 E1390 [facility] PENA DEL PORT 6 HOME MAR 85%/>02 MEDICAL CONC AT EQUIPME RUST FLW RATE RADEX 78169 [facility] ALL UPPER GI 6 MEDICAL W/WO IMAGING GLUCAGON/ ASS DELAY IMGES W/O KUB RADEX 89288 [facility] AYALA UPPER GI 6 MEM HOSP [facility] W/WO INC INC GLUCAGON/ DELAY IMAGES W/KUB FLOW 15224 MOLECULAR MOLECULAR CYTOMETRY 6 INTER PATHOLOGY PATHOLOGY 2-8 LAB NETW LAB NETW MARKERS COLLECTIO 20873 [facility] AYALA N VENOUS 6 [facility] H[facility] BLOOD INC INC VENIPUNCT URE FLOW 03479 LUC[facility] AYALA CYTOMETRY 6 [facility] CELL INC INC SURF MARKER TECHL ONLY 1ST FLOW 80551 [facility] AYALA CYTOMETRY 6 MEM HOS[facility] CELL INC INC SURF MARKER TECHL ONLY EA NEBULIZER E0570 [facility] LEVY WITH 6 HOME HOME COMPRESSO MEDICAL MEDICAL R EQUIPME EQUIPME O2 CONC 1 E1390 [facility] DILLON DEL PORT 6 HOME KEY 85%/>02 MEDICAL CONC AT EQUIPME PRS FLW RATE SEAT E0156 [facility] ATTACHMEN 6 T WALKER WALKER E0143 [facility] FOLDING 6 WHEELED ADJUSTABL E/FIXED HEIGHT ECG 86884 [place] [facility] ROUTINE 6 MEDICAL ECG SERV W/LEAST FOUNDATIO 12 LDS N I&R ONLY ECG 13946 [place] [facility] ROUTINE 6 MEDICAL NAN ECG SERV W/LEAST FOUNDATIO 12 LDS N I&R ONLY RADIOLOGI 87675 [place] JAMES CON C 6 MEDICAL EXAMINATI SERV ON CHEST FOUNDATIO SINGLE N VIEW FRONTAL SBSQ 15163 [facility] 6 MEDICAL KEYANA CARE/DAY SERV 25 FOUNDATIO MINUTES N RADIOLOGI 73256 [place] ZAGUROVSK C 6 MEDICAL AYA MAR EXAMINATI SERV ON CHEST FOUNDATIO SINGLE N VIEW FRONTAL SBSQ 35744 [facility] 6 MEDICAL KEYANA CARE/DAY SERV 15 FOUNDATIO MINUTES N SBSQ 30577 [facility] 6 MEDICAL KEYANA CARE/DAY SERV 15 FOUNDATIO MINUTES N RADIOLOGI 19091 [place] LULA JENNA C 6 MEDICAL EXAMINATI SERV ON CHEST FOUNDATIO SINGLE N VIEW FRONTAL RADIOLOGI 04473 [place] C 6 MEDICAL EXAMINATI SERV ON CHEST FOUNDATIO SINGLE N VIEW FRONTAL SBSQ 91982 [facility] 6 MEDICAL CARE/DAY SERV 25 FOUNDATIO MINUTES N SBSQ 21222 [facility] 6 MEDICAL CARE/DAY SERV 25 FOUNDATIO MINUTES N RADIOLOGI 30762 [place] [facility] C 6 MEDICAL EXAMINATI SERV ON CHEST FOUNDATIO SINGLE N VIEW FRONTAL ECG 45016 [place] [facility] MEDICAL ECG SERV W/LEAST FOUNDATIO 12 LDS N I&R ONLY RADEX 29343 [place] [facility] ABDOMEN 1 6 MEDICAL SUSAN SERV ANTEROPOS FOUNDATIO TERIOR N VIEW RADEX 03895 [facility] A[facility]OM[facility] 1 6 Y [facility] TERIOR VIEW ECG 38477 [place] [facility] R[facility] 6 MEDICAL ECG SERV W/LEAST FOUNDATIO 12 LDS N I&R ONLY RADIOLOGI 90740 [place] C 6 MEDICAL EXAMINATI SERV ON CHEST FOUNDATIO SINGLE N VIEW FRONTAL CRITICAL 65401 [place] [facility] 6 MEDICAL ILL/INJUR SERV ED FOUNDATIO PATIENT N INIT MIN SBSQ 13985 [facility] 6 MEDICAL CARE/DAY SERV 25 FOUNDATIO MINUTES N RADIOLOGI 63977 [place] [facility] C 6 MEDICAL AYA MAR EXAMINATI SERV ON CHE[place] [address] [place] REYEZ CLEO ABDOMEN & 6 MEDICAL PELVIS SERV W/CONTRAS FOUNDATIO T N MATERIAL RADEX 04246 [facility] ABDOMEN 1 6 Y OF CAR TEX ANTEROPOS HOSPI TERIOR VIEW [facility] THORAX [address]757 [place] JAMES CON 6 MEDICAL W/CONTRAS SERV T FOUNDATIO MATERIAL N RADEX ABD 62885 [place] PAULA COMPL 6 MEDICAL JURGEN AQT ABD SERV ANNEL W/S/E/D FOUNDATIO VIEWS 1 N VIEW CH ECG 63497 [place] [facility] ROUTINE 6 MEDICAL ECG SERV W/LEAST FOUNDATIO 12 LDS N I&R ONLY ECHO 17638 [place] [facility] TTHRC R-T 6 MEDICAL ERIKA 2D SERV W/WOM-MOD FOUNDATIO E COMPL N SPEC&COLR D RADIOLOGI 72509 [place] CON C 6 MEDICAL EXAMINATI SERV ON CHEST FOUNDATIO SINGLE N VIEW FRONTAL SBSQ 35863 [place] [address] MEDICAL AND CARE/DAY SERV 25 FOUNDATIO MINUTES N INITIAL 24291 [place] [address] MEDICAL SUN KAYODE CARE/DAY SERV 30 FOUNDATIO MINUTES N SBSQ 04892 [facility] 6 MEDICAL AND CARE/DAY SERV 25 FOUNDATIO MINUTES N RADIOLOGI 66978 [place] J[place] CON C 6 MEDICAL EXAMINATI SERV ON CHEST FOUNDATIO SINGLE N VIEW FRONTAL RADIOLOGI 07300 [place] CON C 6 MEDICAL EXAMINATI SERV ON CHEST FOUNDATIO SINGLE N VIEW FRONTAL ECG 52904 [place] [facility] ROUTINE 6 MEDICAL ECG SERV W/LEAST FOUNDATIO 12 LDS N I&R ONLY RADIOLOGI 84955 [place] WILLIEK C 6 MEDICAL AYA MAR EXAMINATI SERV ON CHEST FOUNDATIO SINGLE N VIEW FRONTAL RADEX 35705 [facility] ABD[facility] 1 6 Y OF CAR TEX ANTEROPOS HOSPI TERIOR VIEW RADEX 17216 [place] JONAHGUROLEONOR ABDOMEN 1 6 MEDICAL AYA MAR SERV ANTEROPOS FOUNDATIO TERIOR N VIEW RADIOLOGI 96402 [place] ROBBINS C 6 MEDICAL JESS EXAMINATI SERV ON CHEST FOUNDATIO SINGLE N VIEW FRONTAL RADIOLOGI 38374 [place] JONAHGUROGALLITOK C 6 MEDICAL AYA MAR EXAMINATI SERV ON CHE[place] [address] [place] AYOOB AND ABDOMEN & 6 MEDICAL PELVIS SERV W/CONTRAS FOUNDATIO T N MATERIAL RADEX 19971 [facility] ABDOMEN 1 7 Y OF CAR TEX ANTEROPOS HOSPI TERIOR VIEW CT THORAX [address] [place] ARMENDARIZ JENNA 6 MEDICAL W/CONTRAS SERV T FOUNDATIO MATERIAL N RADEX 71838 UNIVERSIT SHANELL ABDOMEN 1 7 Y OF CAR [facility] TERIOR VIEW SBSQ 309[address] [facility] 6 MEDICAL AND CARE/DAY SERV 25 FOUNDATIO MINUTES N SBSQ 39604 [facility] 6 MEDICAL AND CARE/DAY SERV 25 FOUNDATIO MINUTES N RADIOLOGI 50090 [place] DELL CAR C 6 MEDICAL EXAMINATI SERV ON CHEST FOUNDATIO SINGLE N VIEW FRONTAL RADIOLOGI 50729 [place] JAMES CON C 6 MEDICAL EXAMINATI SERV ON CHEST FOUNDATIO SINGLE N VIEW FRONTAL ECG 80588 [place] PELAEZ ROUTINE 6 MEDICAL NAN ECG SERV W/LEAST FOUNDATIO 12 LDS N I&R ONLY ECG 16538 [place] HUI MIKHAIL ROUTINE 6 MEDICAL ECG SERV W/LEAST FOUNDATIO 12 LDS N I&R ONLY SBSQ 16537 [facility] 6 MEDICAL RONNY CARE/DAY SERV 25 [place] [address] [place] HIEU SURG 6 MEDICAL FRANCO PATHOLOGY SERV FOUNDATIO GROSS&JESS N ROSCOPIC EXAM LEVEL III 46990 [place] HIEU SURG 6 MEDICAL FRANCO PATHOLOGY SERV FOUNDATIO GROSS&JESS N ROSCOPIC EXAM ARTL [address]184 [facility] UNIVERS CATHJ/CAN 6 Y OF Y OF NULJ [facility] SFUSION SPX PRQ ANESTHESI 32750 FATUMA SANDOVAL BET A HERNIA 6 Y OF REPAIR [facility] ABD[facility] NOS RPR [address] [facility] INGUN 6 MEDICAL RONNY HRNA AGE SERV 5 YRS/> FOUNDATIO INCARCERA N KISHOR COMPREHEN 88722 [facility] SIVE 6 [facility] METABOLIC INC INC PANEL CREATINE 73066 [facility] KINASE 6 [place] [address] [facility] AMYLASE 6 [facility] INC INC CREATINE 99181 L[facility] AYALA KINASE MB 6 [facility] FRACTION INC INC ONLY AMBULANCE A0429 [facility] SERVICE 6 AMBULANCE AMBULANCE BLS SERVICE [place] [address] L[facility] A[facility]AL[facility] TROPONIN 6 [facility] QUANTITAT INC INC ARCENIO INITIAL 59063 [facility] 6 MEDICAL CHR CARE/DAY SERV 50 FOUNDATIO MINUTES N BLOOD 86585 [facility] COUNT 6 [facility] COMPLETE INC INC AUTO&AUTO DIFRNTL WBC GROUND A0425 [facility] PER SERVICE SERVICE STATUTE MILE ECG 44557 LUCY BEVERLY ROUTINE 6 [facility] W/LEAST P 12 LDS I&[place] [address] [facility] ALL ABDOMEN & 6 MEDICAL PELVIS IMAGING W/O ASS CONTRAST MATERIAL ECG 17771 [facility] A[facility]ALA ROUTINE 6 [facility] ECG INC INC W/LEAST 12 LDS TRCG ONLY W/O I&R RADIOLOGI 84857 [place] [facility] 6 MEDICAL EXAMINATI IMAGING [place] [address] [facility] A[facility] INFUSION 6 [facility] THERAPY/P INC INC ROPHYLAXI S /DX 1ST TO 1 [place] [address] [facility] A[facility] LIPASE 6 [facility] INC INC INJECTION [id number] [facility] ONDANSETR INC INC ON HCL PER 1 MG INJ J2543 LUCY [facility]AL[facility] PIPERACIL 6 [facility] YONATHAN INC INC SOD/TAZOB ACTAM SOD 1 G/0.125 G THER 81135 LUCY AYALA PROPH/DX 6 [facility] NJX EA INC INC SEQL IV PUSH SBST/DRUG FAC BLOOD 28469 Darnell ROY JENNA COUNT 6 PILAR PLEITEZ COMPLETE PSC AUTO&AUTO DIFRNTL WBC COLLECTIO 01666 Darnell WEST N VENOUS 6 PILAR PLEITEZ BLOOD PSC VENIPUNCT URE NEBULIZER E0570 MILDRED LEVY WITH 6 HOME HOME [facility] MEDICAL MEDICAL R EQUIPME EQUIPME INITIAL [address] CARE/DAY INTERNAL 70 MED MINUTES RADIOLOGI 30162 [place] FR[place] C 6 MEDICAL EMY EXAMINATI IMAGING ON CHEST ASS SINGLE VIEW FRONTAL ECG 10976 [place]USH ROUTINE [address] [place] [address] W/LEAST P 12 LDS I&R ONLY NEBULIZER E0570 MILDRED LEVY WITH 6 HOME HOME [facility]PRESS[facility] MEDICAL MEDICAL R EQUIPME EQUIPME ADMN SET A7003 YOUR YOUR SM VOL 6 PHARMACY PHARMACY NONFILTR [employer] PNEUMAT NEBULIZR DISPBL PHRM Q0513 YOUR YOUR DISPENSIN 6 PHARMACY PHARMACY G FEE [employer] INHALATIO N RX; PER 30 DAYS RADIOLOGI 24435 LUCY AYALA C EXAM 6 [facility] CHEST 2 INC INC VIEWS FRONTAL&L ATERAL RADIOLOGI 54125 [place] FONTANEZ ALL C 6 MEDICAL EXAMINATI IMAGING ON CHEST ASS SINGLE VIEW FRONTAL ALBUTEROL J7620 YOUR YOUR TO 2.5 6 PHARMACY PHARMACY [facility] IPRATROPI UM BROM TO 0.5 MG COLLECTIO 07419 LUCY AYALA N VENOUS 6 [facility] BLOOD INC INC VENIPUNCT URE COMPREHEN 67591 LUCY A[facility]ALA SIVE 6 [facility] METABOLIC INC INC PANEL BLOOD 43282 LUCY AYALA COUNT 6 [facility] COMPLETE INC INC AUTO&AUTO DIFRNTL WBC NEBULIZER E0570 MILDRED LEVY WITH 6 HOME HOME COMPRESSO MEDICAL MEDICAL R EQUIPME EQUIPME NEBULIZER E0570 MILDRED LEVY WITH 6 HOME HOME COMPRESSO MEDICAL MEDICAL R EQUIPME EQUIPME PHRM Q0513 YOUR YOUR DISPENSIN 5 PHARMACY PHARMACY G FEE [employer] INHALATIO N RX; PER 30 DAYS ALBUTEROL J7620 YOUR YOUR TO 2.5 5 PHARMACY PHARMACY [facility] IPRATROPI UM BROM TO 0.5 MG RADIOLOGI 53863 [facility] ALL C EXAM 5 MEDICAL CHEST 2 IMAGING VIEWS ASS FRONTAL&L ATERAL CT THORAX 26014 [facility] ALL 5 MEDICAL W/CONTRAS IMAGING T ASS MATERIAL RADIOLOGI 29419 [facility] ALL C EXAM 5 MEDICAL CHEST 2 IMAGING VIEWS ASS FRONTAL&L ATERAL PHARM G0333 YOUR YOUR DISPEN 5 PHARMACY PHARMACY FEE [employer] [facility] RX; INITIAL 30-DAY SUPPLY NEBULIZER E0570 MILDRED LEVY WITH 5 HOME HOME COMPRESSO MEDICAL MEDICAL R EQUIPME EQUIPME ALBUTEROL J7620 YOUR YOUR TO 2.5 5 PHARMACY PHARMACY MG & [employer] IPRATROPI UM BROM TO 0.5 MG CATARACT 40512 [facility] REMOVAL 5 JAMILAH JAMILAH INSERTION OF LENS [...] EQUIPME EQUIPME ARWAY PRESS DEVICE EA POLYSOM 40717 NEERAJ KERN MAR 6/>YRS 4 SLEEP 4/> NEUROSCIE ADDL NCES CENT AMA ATTND POLYSOM 44996 LUCY AYALA 6/>YRS 4 [facility] SLEEP 4/> INC INC ADDL AMA ATTND IMC/IMC G0461 LUC[facility]AL[facility] PER 4 [facility] SPECIMEN; INC INC 1ST SNGL/[place] [address] LCUY AYALA SURG 4 [facility] PATHOLOGY INC INC GROSS&JESS ROSCOPIC EXAM SPECIAL 67641 LUCY AYALA STAIN 4 [facility] GROUP 1 INC INC MICROORGA NISMS I&R SPCL STN 22239 LUCY AYALA 2 I&R 4 [facility] EXCPT INC INC MICROORG/ ENZYME/[place] [address] LUCY AYALA INFUSION 4 [facility] THERAPY INC [place] [address] LUCY AYALA INFUSION 4 [facility] THERAPY/P INC INC ROPHYLAXI S /DX 1ST TO 1 HR SPMTRY 50723 LUCY AYALA W/VC 4 [facility] EXPIRATOR INC INC Y ALFREDO W/WO MXML VOL VNTJ ECHO 98522 LUCY AYALA TTHRC R-T 4 [facility] 2D INC INC W/WOM-MOD E COMPL SPEC&COLR D CV STRS 57528 KEITH MORENO TST 4 XERS&/OR RX CONT ECG W/O I&R MYOCARDIA 47709 TEX Parra 4 MEDICAL EMY PERFUSION IMAGING PLANAR ASS MULTIPLE STUDIES MYOCARDIA 04854 LUCY AYALA L SPECT 4 [facility] MULTIPLE INC INC STUDIES CV STRS 40648 GLENN ELIZABETH JR TST 4 DWI DWI XERS&/OR RX CONT ECG I&R ONLY RADIOLOGI 64924 [place] FRANCES[place] C EXAM 4 MEDICAL EMY [...] DON DON CEFAZOLIN SODIUM 500 MG RADIOLOGI 98961 LUCY AYALA C EXAM 3 [facility] [...] EQUIPME EQUIPME FLWMTR HUMIDFR&M ASK CT THORAX 48703 [place] FRANCES[place] W/O 2 MEDICAL EMY CONTRAST IMAGING MATERIAL ASS 3D 84453 [place] FRANCES[place] RENDERING 2 MEDICAL EMY IMAGING W/INTERP& ASS POSTPROC DIFF WORK STATION PRTBLE E0431 MILDRED MILDRED GASEOUS 2 HOME HOME O2 SYS MEDICAL MEDICAL RENT; EQUIPME EQUIPME FLWMTR HUMIDFR&M ASK TOBACCO 49345 JAMES JAMES USE 2 DON DON CESSATION INTERMEDI ATE 3-10 MINUTES PRTBLE E0431 MILDRED MILDRED GASEOUS 2 HOME HOME O2 SYS MEDICAL MEDICAL RENT; EQUIPME EQUIPME FLWMTR HUMIDFR&M ASK PRTBLE E0431 MILDRED MILDRED GASEOUS 2 HOME HOME O2 SYS MEDICAL MEDICAL RENT; EQUIPME EQUIPME FLWMTR HUMIDFR&M ASK RADIOLOGI 75828 TEX MA C EXAM 2 MEDICAL EMY CHEST 2 IMAGING VIEWS ASS FRONTAL&L ATERAL SPMTRY 16220 MARIS POLLOCK W/VC 2 JAM JAM EXPIRATOR Y ALFREDO W/WO MXML VOL VNTJ PRTBLE E0431 MILDRED MILDRED GASEOUS 2 HOME HOME O2 SYS MEDICAL MEDICAL RENT; EQUIPME EQUIPME FLWMTR HUMIDFR&M ASK CYANOCOBA 53864 LUCY AYALA BETTIE 2 [facility] VITAMIN INC INC B-12 THORACENT 78636 LUCY AYALA ESIS 2 [facility] PUNCTURE INC [place] [address] LUCY AYALA IRON 2 [facility] INC INC CARBOXYHE 97729 LUCY AYALA MOGLOBIN 2 [facility] QUANTITAT INC INC ARCENIO COLLECTIO 65554 LUCY AYALA N VENOUS 2 [facility] BLOOD INC INC VENIPUNCT URE CELL 45473 LUCY AYALA COUNT 2 [facility] MISC BODY INC INC FLUIDS W/DIFFERE NTIAL COUNT CYTP 42959 PATHOLOGY PATHOLOGY SLCTV 2 & & CELL CYTOLOGY CYTOLOGY ENHANCEME LAB LAB NT INTERPJ XCPT C/V SMR PRIM 56545 LUCY AYALA SRC 2 [facility] GRAM/GIEM INC INC SA STAIN BCT FUNGI/VAHID L BLOOD 78658 LUCY AYALA GASES ANY 2 [facility] INC INC COMBINATI ON PH PCO2 PO2 CO2 HCO3 GLUCOSE 21511 LUCY AYALA BODY 2 [facility] FLUID INC INC OTHER THAN BLOOD IRON 74723 LUCY AYALA BINDING 2 [facility] CAPACITY INC INC CUL BACT 84925 LUCY LUCY XCPT 2 [facility] URINE INC INC BLOOD/STO OL AEROBIC ISOL CULTURE 97896 LUCYJOAN AYALA BACTERIAL 2 [facility] ANY INC INC SOURCE ANAEROBIC ISO&ID CULTURE 00246 LUCY AYALA TUBERCLE/ 2 [facility] OTH INC INC ACID-FAST BACILLI ANY ISOL LACTATE 36251 LUCY AYALA DEHYDROGE 2 [facility] NASE LDH INC INC PROTEIN 05182 LUCY AYALA XCPT 2 [facility] REFRACTOM INC INC ETRY SERUM PLASMA/WH L BLD TISS FRED 86631 LUCY AYALA SLIDE 2 [facility] SAMPS INC INC SKN/HR/NL S FNGI/ECTO PARASIT NONINVASI 44392 LUCY AYALA VE 2 [facility] EAR/PULSE INC INC OXIMETRY SINGLE DETER RADIOLOGI 60512 LUCY AYALA C EXAM 2 [facility] CHEST 2 INC INC VIEWS FRONTAL&L ATERAL CT THORAX 30039 LUCY AYALA W/O 2 [facility] [place] [address] LUCY AYALA GUIDANCE 2 [facility] NEEDLE INC INC PLACEMENT 3D 27966 [place] FRANCES[place] RENDERING 2 MEDICAL EMY IMAGING W/INTERP& ASS POSTPROC DIFF WORK STATION CT THORAX 50531 LUCY AYALA W/O 2 [facility] CONTRAST INC INC MATERIAL ECG 38428 [place] ROUTINE 2 JENNA JENNA ECG W/LEAST 12 LDS I&R ONLY ECG 35846 LUCY AYALA ROUTINE 2 [facility] ECG INC INC W/LEAST 12 LDS TRCG ONLY W/O I&R SPUTUM 66166 LUCY AYALA OBTAINING 2 [facility] SPEC INC INC AEROSOL INDUCED TX SPX PRTBLE E0431 MILDRED LEVY GASEOUS 2 HOME HOME O2 SYS MEDICAL MEDICAL RENT; EQUIPME [facility] H[facility] ASK PRTBLE E0431 MILDRED LEVY GASEOUS 2 HOME HOME O2 SYS MEDICAL MEDICAL RENT; EQUIPME EQUIPME FLWMTR HUMIDFR&M ASK SPMTRY 79461 LUCY AYALA W/VC 2 [facility] EXPIRATOR INC INC Y ALFREDO W/WO MXML VOL VNTJ PRTBLE E0431 MILDRED LEVY GASEOUS 2 HOME HOME O2 SYS MEDICAL MEDICAL RENT; EQUIPME EQUIPME FLWMTR HUMIDFR&M ASK PRTBLE E0431 MILDRED LEVY GASEOUS 2 HOME HOME O2 SYS MEDICAL MEDICAL RENT; EQUIPME EQUIPME FLWMTR HUMIDFR&M ASK RADIOLOGI 07097 ERIKA JAMES C EXAM 2 DON DON CHEST 2 VIEWS FRONTAL&L ATERAL CT THORAX 55629 [place] FRANCESCA 2 MEDICAL EMY W/[place] [address] COMBINED COMBINED PROSTATE 2 PHYSICIAN PHYSICIAN SPECIFIC S LA S LA ANTIGEN TOTAL COMPREHEN 39823 COMBINED COMBINED SIVE 2 PHYSICIAN PHYSICIAN METABOLIC S LA S LA PANEL BLOOD 20741 COMBINED COMBINED COUNT 2 PHYSICIAN PHYSICIAN COMPLETE S LA S LA AUTO&AUTO DIFRNTL WBC LIPID 83641 COMBINED COMBINED PANEL 2 PHYSICIAN PHYSICIAN S [...] O2 SYS MEDICAL MEDICAL RENT; EQUIPME EQUIPME FLWDCR HUMIDFR&M ASK O2 CONC 1 E1390 [place] 1 HOME HOME 85%/>02 MEDICAL MEDICAL CONC AT EQUIPME EQUIPME RUST FLW RATE PRTBLE E0431 MILDRED LEVY GASEOUS 1 HOME HOME O2 SYS MEDICAL MEDICAL RENT; EQUIPME EQUIPME [facility] HUMIDFR&M ASK O2 CONC 1 E1390 MILDRED LUIS [facility] 1 HOME HOME 85%/>02 MEDICAL MEDICAL CONC AT EQUIPME EQUIPME RUST FLW RATE O2 CONC 1 E1390 MILDRED LUIS [facility] 1 HOME MED HOME MED 85%/>02 EQUIP. L EQUIP. L CONC AT RUST FLW RATE PRTBLE E0431 MILDRED LEVY GASEOUS 1 HOME MED HOME MED O2 SYS EQUIP. L EQUIP. L RENT; [facility] HUMIDFR&M ASK PRTBLE E0431 MILDRED LEVY GASEOUS 1 HOME MED HOME MED O2 SYS EQUIP. L EQUIP. L RENT; [facility] HUMIDFR&M ASK O2 CONC 1 E1390 [place] 1 HOME MED HOME MED 85%/>02 EQUIP. L EQUIP. L CONC AT RUST FLW RATE O2 CONC 1 E1390 MILDRED LUIS [facility] 1 HOME MED HOME MED 85%/>02 EQUIP. L EQUIP. L CONC AT RUST FLW RATE PRTBLE E0431 MILDRED LEVY GASEOUS 1 HOME MED HOME MED O2 SYS EQUIP. L EQUIP. L RENT; [facility] HUMIDFR&M ASK PRTBLE E0431 MILDRED LEVY GASEOUS 1 HOME MED HOME MED O2 SYS EQUIP. L EQUIP. L RENT; [facility] HUMIDFR&M ASK O2 CONC 1 E1390 [place] 1 HOME MED HOME MED 85%/>02 EQUIP. L EQUIP. L CONC AT RUST FLW RATE O2 CONC 1 E1390 MILDRED [place] 1 HOME MED HOME MED 85%/>02 EQUIP. L EQUIP. L CONC AT RUST FLW RATE PRTBLE E0431 MILDRED LEVY GASEOUS 1 HOME MED HOME MED O2 SYS EQUIP. L EQUIP. L [facility]ENT; [facility] HUM[facility]&M ASK PRTBLE E0431 MILDRED LEVY GASEOUS 0 HOME MED HOME MED O2 SYS EQUIP. L EQUIP. L RENT; [facility] HUMIDFR&M ASK O2 CONC 1 E1390 [place] 0 HOME MED HOME MED 85%/>02 EQUIP. L EQUIP. L CONC AT RUST FLW RATE O2 CONC 1 E1390 [place] 0 HOME MED HOME MED 85%/>02 EQUIP. L EQUIP. L CONC AT RUST FLW RATE PRTBLE E0431 MILDRED LEVY GASEOUS 0 HOME MED HOME MED O2 SYS EQUIP. L EQUIP. L RENT; [facility] HUMIDFR&M ASK PRTBLE E0431 MILDRED [place] GASEOUS 0 HOME MED HOME MED O2 SYS EQUIP. L EQUIP. L RENT; [facility] HUMIDFR&M ASK O2 CONC 1 E1390 [place] 0 HOME MED HOME MED 85%/>02 EQUIP. L EQUIP. L CONC AT RUST FLW RATE PRTBLE E0431 MILDRED LEVY GASEOUS 0 HOME MED HOME MED O2 SYS EQUIP. L EQUIP. L RENT; [facility] HUMIDFR&M ASK O2 CONC 1 E1390 [place] 0 HOME MED HOME MED 85%/>02 EQUIP. L EQUIP. L CONC AT RUST FLW RATE SPECIAL 11764 [facility] STAIN 0 Y Y GROUP 1 [facility] MICROORGA NISMS I&R BRONCHOSC 09954 [facility] W/TRANSYALE [facility] ONCHIAL LUNG BX 1 LOBE BRONCHOSC 04605 [facility] OPY 0 Y Y NEEDLE [facility] MAIN STEM&/BRO N CULTURE 22480 [facility] FNGI 0 Y Y MOLD/[facility] T PRSMPTV OTH XCPT BLOOD IAADI 89463 [facility] PNEUMOCUS 0 Y Y TIS [facility]OSP[facility] CARINII SMR PRIM 58070 [facility] SRC 0 Y Y FLUORESCE [facility] NT&/AFS BCT FNGI PARASIT TISS FRED 62724 [facility] SLIDE 0 Y Y [facility] SKN/HR/NL S FNGI/ECTO PARASIT CULTURE 24352 [facility] TUBERCLE/ 0 Y Y OTH [facility] ACID-FAST BACILLI ANY ISOL BRNCHSC 70546 [facility] W/BRNCL 0 Y Y ALVEOLAR [facility] LAVAGE CUL BACT 84576 [facility] XCPT 0 Y Y URINE [facility] BLOOD/STO OL AEROBIC ISOL VIRUS 18462 [facility] CENTRIFUG 0 Y Y E [facility] ID IMFLUOR STAIN EA CULTURE 64987 [facility] FUNGI 0 Y Y DEFINITIV [facility] E ID EACH ORGANISM [facility] PRIM 70623 [facility] SRC 0 Y Y GRAM/GIEM [facility] SA STAIN BCT FUNGI/VAHID L CELL 80394 [facility] COUNT 0 Y Y MISC BODY [facility] FLUIDS [place] [address] [facility] SURG 0 Y Y PATHOLOGY [facility] GROSS&JESS ROSCOPIC EXAM CYTP FINE 98255 [facility] NDL 0 Y Y ASPIRATE [facility] IMMT CYTOHIST STD DX 1ST CYTP EVAL 64380 [facility] FINE 0 Y Y NEEDLE [facility] ASPIRATE INTERP & REPORT CONCENTRA 26115 [facility] TION 0 Y Y INFECTIOU [facility] S AGENTS VIRUS 08556 [facility] TISS CUL 0 Y [facility] ON CYTOPATHI C EFFECT IADNA NOS 50784 [facility] 0 Y Y AMPLIFIED [facility] PROBE TQ EACH ORGANISM RADIOLOGI 76826 [facility] C 0 Y [facility] ON CHEST SINGLE VIEW FRONTAL INJECTION J2250 [facility] 0 Y Y MIDAZOLAM [facility] HCL PER 1 MG INJECTION J3010 [facility] FENTANYL 0 Y Y CITRATE [facility] 0.1 MG O2 CONC 1 E1390 [place] 0 HOME MED HOME MED 85%/>02 EQUIP. L EQUIP. L CONC AT RUST FLW RATE PRTBLE E0431 MIDLRED LEVY GASEOUS 0 HOME MED HOME MED O2 SYS EQUIP. L EQUIP. L RENT; [facility] HUMIDFR&M ASK PHLEBOTOM 94361 COMBINED COMBINED Y 0 PHYSICIAN PHYSICIAN THERAPEUT S LA S LA IC SEPARATE PROCEDURE RADEX 28076 [place] [facility] ESOPHAGUS 0 MEDICAL EMY IMAGING ASS DUP-SCAN 63720 [place] XTR VEINS 0 MEDICAL EMY COMPLETE IMAGING ASS BILATERAL STUDY PULMONARY 08170 [place] STRESS 0 MEDICAL JAM TESTING SERV SIMPLE FOUNDATIO BRNCDILAT 46159 LUCY AYALA RSPSE 0 [facility] SPMTRY INC INC PRE&POST- BRNCDILAT ADMN BLOOD 63993 LUCY AYALA COUNT 0 [facility] COMPLETE INC INC AUTO&AUTO DIFRNTL WBC COLLECTIO 43557 LUCY AYALA N VENOUS 0 [facility] BLOOD INC INC VENIPUNCT URE COMPREHEN 23186 LUCY AYALA SIVE 0 [facility] METABOLIC INC INC PANEL COMPREHEN 72909 COMBINED COMBINED SIVE 0 PHYSICIAN PHYSICIAN METABOLIC S LAB S LAB PANEL COLLECTIO 02818 COMBINED COMBINED N VENOUS 0 PHYSICIAN PHYSICIAN BLOOD S LAB S LAB VENIPUNCT URE CT THORAX 65874 [place] NELLY W/O 0 MEDICAL KEY CONTRAST IMAGING MATERIAL ASS 3D 82758 [place] NELLY RENDERING 0 MEDICAL KEY IMAGING W/INTERP& ASS POSTPROC DIFF WORK STATION RADIOLOGI 96254 [place] FRANC[place] C EXAM 0 MEDICAL EMY CHEST 2 IMAGING VIEWS ASS FRONTAL&L ATERAL PRTBLE E0431 MILDRED LEVY GASEOUS 0 HOME MED HOME MED O2 SYS EQUIP. EQUIP. RENT; LLC [facility] MOWMTR HUMIDFR&M ASK O2 CONC 1 E1390 [place] 0 HOME MED HOME MED 85%/>02 EQUIP. EQUIP. CONC AT [facility] FLW RATE O2 CONC 1 E1390 MILDRED [place] 0 HOME MED HOME MED 85%/>02 EQUIP. EQUIP. CONC AT [facility] FLW RATE PRTBLE E0431 MILDRED LEVY GASEOUS 0 HOME MED HOME MED O2 SYS EQUIP. EQUIP. RENT; [facility] FLWDCR HUMIDFR&M ASK RADIOLOGI 71525 ERIKA JAMES C EXAM 0 DON R DON R CHEST 2 VIEWS FRONTAL&L ATERAL ECG 34847 ERIKA JAMES, ROUTINE 0 DON R DON R ECG W/LEAST 12 LDS W/I&R INJECTION J1940 ERIKA JAMES, 0 DON R DON R FUROSEMID E UP TO 20 MG RADIOLOGI 45064 ERIKA JAMES C 0 DON R DON R EXAMINATI ON CHEST [facility] 62220 JAMESERIKA VELASCO, DISCHARGE 0 DON R DON R DAY MANAGEMEN T 30 MIN/< RADIOLOGI 61935 Kristy VALENTIN EXAM 0 MEDICAL JANE P CHEST 2 IMAGING VIEWS ASSOCIATE FRONTAL&L S ATERAL [facility] 70724 [facility] 0 DON R DON R CARE/DAY 25 MINUTES [facility] 01307 [facility] 0 DON R DON R CARE/DAY 25 MINUTES [facility] 50102 [facility] 0 DON R DON R CARE/DAY 25 MINUTES [facility] 35531 [facility] 0 DON R DON R CARE/DAY [address] THORAX 52716 [place], 0 MEDICAL SHASHI W/CONTRAS IMAGING T ASSOCIATE MATERIAL S 3D 31164 [place]ANC[place], RENDERING 0 MEDICAL SHASHI IMAGING W/INTERP& ASSOCIATE POSTPROC S DIFF WORK STATION [facility] 03283 [facility] 0 DON R DON R CARE/DAY 25 MINUTES INITIAL 04971 [facility] 0 DON R DON R CARE/DAY 50 MINUTES RADIOLOGI 72867 ERIKA JAMES 0 DON R DON R EXAMINATI ON CHEST SINGLE VIEW FRONTAL RADIOLOGI 76566 [place] Kristy MA EXAM 0 MEDICAL SHASHI CHEST 2 IMAGING VIEWS ASSOCIATE FRONTAL&L S ATERAL OPHTH 33655 [facility], [facility] 9 DONTE A DONTE A XM&EVAL COMPRHNSV ESTAB PT 1/> OPHTH 11275 RETINA & NINI, MEDICAL 9 VITREOUS CALLIE W XM&EVAL ASSOCIATE INTERMEDI S O ATE ESTAB PT SCANNING 94451 [facility] NINI, OPHTHALMI 9 VITREOUS CALLIE W C IMAGING ASSOCIATE S O POSTERIOR SGM UNI INJECTION J1040 ERIKA JAMES 8 DON R DON R METHYLPRE DNISOLONE ACETATE 80 MG SCANNING 84104 [facility], OPHTHALMI 8 VITREOUS CALLIE W C IMAGING ASSOCIATE S O POSTERIOR SGM UNI OPHTH 73130 [facility] NINI, MEDICAL 8 VITREOUS CALLIE W XM&EVAL ASSOCIATE INTERMEDI S O ATE ESTAB PT INJECTION J1040 ERIKA JAMES 8 DON R DON R METHYLPRE DNISOLONE ACETATE 80 MG OPHTH 87531 [facility] 8 DONTE A DONTE A XM&EVAL COMPRHNSV ESTAB PT 1/> OPHTH 96423 [facility] NINI, MEDICAL 8 VITREOUS CALLIE W XM&EVAL ASSOCIATE INTERMEDI S O ATE ESTAB PT SCANNING 62847 [facility] NINI, OPHTHALMI 8 VITREOUS CALLIE W C IMAGING ASSOCIATE S O POSTERIOR SGM UNI INJECTION J1040 ERIKA JAMES 8 DON R DON R METHYLPRE DNISOLONE ACETATE 80 MG RADIOLOGI 58625 ERIKA JAMES C EXAM 8 DON R DON R CHEST 2 VIEWS FRONTAL&L ATERAL SCANNING 25567 [facility] RET[facility] & OPHTHALMI 8 VITREOUS VITREOUS C IMAGING ASSOCIATE ASSOCIATE S O S O POSTERIOR SGM UNI OPHTH 62409 [facility] & MEDICAL 8 VITREOUS VITREOUS XM&EVAL ASSOCIATE ASSOCIATE INTERMEDI S O S O ATE ESTAB PT OPHTH 02378 [facility] & MEDICAL 8 VITREOUS VITREOUS XM&EVAL ASSOCIATE ASSOCIATE INTERMEDI S O S O ATE ESTAB PT SCANNING 23467 RET[facility] & RETINA & OPHTHALMI 8 VITREOUS VITREOUS C IMAGING ASSOCIATE ASSOCIATE S O S O POSTERIOR SGM UNI INJECTION J1100 ERIKA JAMES, Adán RUTHERFORD R DON R DEXAMETHO SONE SODIUM PHOSPHATE 1 MG Encounters Encounter Start End Date Code Location Performer Type Date OFFICE 21278 [facility] RHIANNON OUTPATIRYLEE 7 7 PHYSICIAN T VISIT S GROUP 40 MINUTES OFFICE 21782 A Kristy ROY OUTPATIRYLEE 7 7 PILAR PLEITEZ T VISIT PSC 15 MINUTES OFFICE [address] [facility] OUTPATIRYLEE 7 7 Y OF CK T VISIT [place] 25 HOSPI MINUTES [facility] - 7 7 [facility] INPATIENT INC OFFICE 35333 A Kristy ROY OUTPATIEN 7 7 PILAR PLEITEZ T VISIT PSC 15 MINUTES OFFICE 14723 A Kristy ROY OUTPATIEN 7 7 PILAR PLEITEZ T VISIT PSC 15 MINUTES HOSPITAL LUCY - 6 6 [facility] OUTPATIEN INC T OFFICE 97240 ELIO POLLOCK OUTPATIEN 6 6 MEDICAL JAM T VISIT SERV 25 FOUNDATIO MINUTES N OFFICE 95635 [facility] OUTPATIEN 6 6 PHYSICIAN RITA T VISIT S GROUP 10 MINUTES HOSPITAL LUCY - 6 6 [facility] OUTPATIEN INC T OFFICE 96633 [facility] [place] OUTPATIEN 6 6 [facility] 10 P MINUTES OFFICE 71424 [place] OUTPATIEN 6 6 MEDICAL JAM T VISIT SERV 15 FOUNDATIO MINUTES N OFFICE 01769 [facility] [place] OUTPATIEN 6 6 [facility] 20 HOSPITAL MINUTES P OFFICE 90981 [facility] ALLRAN JR OUTPATIEN 6 6 PHYSICIAN RITA T VISIT S GROUP 15 MINUTES HOSPITAL LUCY - 6 6 [facility] OUTPATIEN INC T OFFICE 93579 [facility] ALLRAN JR OUTPATIEN 6 6 PHYSICIAN RITA T NEW 45 S GROUP MINUTES OFFICE 35280 [place] OUTPATIEN 6 6 MEDICAL JAM T VISIT SERV 25 FOUNDATIO MINUTES [facility] LUCY - 6 6 [facility] OUTPATIEN INC T OFFICE 54660 [place] OUTPATIEN 6 6 MEDICAL JAM T VISIT SERV 25 FOUNDATIO MINUTES N EMERGENCY 52966 [facility] DEPT 6 6 Y OF MADALYN VISIT [facility] HOSPI SEVERITY& THREAT [facility] LUCY - 6 6 [facility] OUTPATIEN INC T OFFICE 02205 A Kristy WEST OUTPATIEN 6 6 PLIAR PLEITEZ T VISIT PSC 15 MINUTES OFFICE 38143 A Kristy WEST OUTPATIEN 6 6 PILAR PLEITEZ T VISIT PSC 15 MINUTES OFFICE 62368 [place] OUTPATIEN 6 6 MEDICAL JAM T VISIT SERV 40 FOUNDATIO MINUTES N HOSPITAL LUCY - 6 6 [facility] INPATIENT INC OFFICE 85271 [place] OUTPATIEN 6 6 MEDICAL T VISIT SERV 25 FOUNDATIO MINUTES [facility] LUCY - 6 6 [facility] OUTPATIEN INC T OFFICE 29323 [place] OUTPATIEN 6 6 MEDICAL JAM T VISIT SERV 15 FOUNDATIO MINUTES [facility] LUCY - 5 5 [facility]PATIEN [facility] LUCY - 5 5 [facility] LUCY - 5 5 [facility] OFFICE 91235 A C FIELD AMB OUTPATIEN 5 5 PILAR PLEITEZ T VISIT PSC 15 MINUTES OFFICE 76319 A C FIELD AMB OUTPATIEN 4 4 PILAR PLEITEZ T VISIT PSC 15 MINUTES HOSPITAL LCUY - 4 4 [facility] LUCY [facility] 4 4 [facility] - 4 4 [facility] - 4 4 [facility] - 4 4 [facility] - 4 4 [facility] - 4 4 [facility] OFFICE 48015 FIELD AMB FIELD AMB OUTPATIEN 4 4 T VISIT 15 MINUTES OFFICE 69368 FIELD AMB FIELD AMB OUTPATIEN 3 3 T VISIT 15 MINUTES OFFICE 64954 A C FIELD AMB OUTPATIEN 3 3 PILAR PLEITEZ T NEW 30 PSC MINUTES OFFICE 18553 ERIKA MELENDREZS OUTPATIEN 3 3 DON DON T VISIT 15 MINUTES HOSPITAL LUCY - 3 3 [facility] OFFICE 02097 ERIKA WHITLOCKHENS OUTPATIEN 3 3 DON DON T VISIT 15 MINUTES [facility]OSPITAL LUCY - 2 2 [facility] OFFICE 97765 ERIKA MELENDREZS OUTPATIEN 2 2 DON DON T VISIT 15 MINUTES HOSPITAL LUCY - 2 2 [facility] LUC[facility] - [address] [facility] [address] [facility] 2 [facility] OFF[facility] 96978 ERIKA MELENDREZS OUTPATIEN 2 2 DON DON T VISIT 15 MINUTES OFFICE 28005 ERIKA WHITLOCKHENS OUTPATIEN 1 1 DON DON T VISIT 15 MINUTES OFFICE 12556 ERIKA WHITLOCKHENS OUTPATIEN 1 1 DON DON T VISIT 15 MINUTES OFFICE 89598 ERIKA WHITLOCKHENS OUTPATIEN 1 1 DON DON T VISIT 15 MINUTES OFFICE 08609 ERIKA JAMES OUTPATIEN 1 1 DON DON T VISIT 15 MINUTES HOSPITAL UNIVERSIT - 0 0 [facility] LUCY - 0 0 [facility] [facility] OFFICE 99973 ERIKA JAMES, OUTPATIEN 0 0 DON R DON R T VISIT 15 MINUTES OFFICE [id number] ERIKA JAMES OUTPATIEN 0 0 DON R DON R T VISIT 25 MINUTES OFFICE [id number] ERIKA JAMES OUTPATIEN 0 0 DON R DON R T VISIT 15 MINUTES OFFICE [id number] JAMESERIKA OUTPATIEN 8 8 DON R DON R T VISIT 15 MINUTES OFFICE 03958 ERIKA JAMES OUTPATIEN 8 8 DON R DON R T VISIT 15 MINUTES OFFICE [id number] ERIKA JAMES OUTPATIEN 8 8 DON R DON R T VISIT 15 MINUTES OFFICE 06080 ERIKA JAMES OUTPATIEN 8 8 DON R DON R T VISIT 15 MINUTES OFFICE [id number] ERIKA JAMES OUTPATIEN 8 8 DON R DON R T VISIT 15 MINUTES
--- OUTSIDE RECORDS SUMMARY | 2016-10-24 17:16 | External Medical Summary Rpt ---
Author Author , Organization [employer] Address Unknown Phone Unavailable Purpose Continuity of Care Document - 09-20-2015 through 2016 Immunization Name Date Route CVX Reacti Commen Provid Is Given on t er Refuse d PPV23 Histor N07028 No 2015 ical Inform ation - Source Unspec ified PPV23 Histor UKHC1 No 2016 ical Inform ation - Source Unspec ified
--- OUTSIDE RECORDS SUMMARY | 2016-10-24 17:16 | External Medical Summary Rpt ---
Author Author , Organization [employer] Address Unknown Phone Unavailable Purpose Continuity of Care Document - 09-20-2015 through 2016 Immunization Name Date Route CVX Reacti Commen Provid Is Given on t er Refuse d PPV23 Histor [id number] No 2015 ical Inform ation - Source Unspec ified PPV23 Histor UKHC1 No 2016 ical Inform ation - Source Unspec ified
--- OUTSIDE RECORDS SUMMARY | 2016-10-24 17:17 | External Medical Summary Rpt ---
Author Author [employer], [employer] [facility] [employer] Address Unknown Phone Unavailable Results Natriutietic peptide B [Mass/volume] in Serum or Plasma Observa Value Referen Units Interpr Notes Date tion ce etation Range Natriutie 0 - 100 pg/mL Normal No Oct 24 tic inform2016 2:35 peptide B on in PM source [Mass/vol data ume] in Serum or Plasma CBC W Auto Differential panel in Blood Observa Value Referen Units Interpr Notes Date ti ce etation Range Basophils 0 - 0.2 K/MM3 Normal No Oct 24 inform2016 2:35 [#/volume on in PM ] in source Blood by data Automated count Basophils 0.1 - 2.0 % Normal No Oct 24 / informati 2016 2:35 leukocyte on in PM s in source Blood by data Automated count Eosinophi 0.0 - 0.4 K/mm3 High No Oct 24 ls informati 2016 2:35 [#/volume on in PM ] in source Blood by data Automated count Eosinophi 0.1 - % High No Oct 24 ls/100 12.0 informati 2016 2:35 leukocyte on in PM s in source Blood by data Automated count Granulocy 1.3 - 8.0 K/mm3 High No Oct 24 anisa informati 2016 2:35 [#/volume on in PM ] in source Blood by data Automated count Granulocy 37.0 - % Normal No Oct 24 anisa/100 80.0 informati 2016 2:35 leukocyte on in PM s in source Blood by data Automated count Hematocri 42.0 - % Normal No Oct 24 t [Volume 52.0 ati 2016 2:35 on in PM Fraction] source of Blood data Hemoglobi 14.1 - g/dL Normal No Oct 24 n 18.0 informati 2016 2:35 [Mass/vol on in PM ume] in source Blood data Lymphocyt 0.7 - 4.5 K/mm3 High No Oct 24 es 2016 2:35 [#/volume on in PM ] in source Unspecifi data ed specimen by Automated count Lymphocyt 10 - 50 % Normal No Oct 24 es 2016 2:35 [#/volume on in PM ] in source Unspecifi data ed specimen by Automated count Erythrocy 27 - 31.2 pg Low No Oct 24 te mean 2016 2:35 corpuscul on in PM ar source hemoglobi data n [Entitic mass] Erythrocy 31.8 - g/dl Low No Oct 24 te mean 35.4 2016 2:35 corpuscul on in PM ar source hemoglobi data n concentra tion [Mass/vol ume] by Automated count Erythrocy 82.2 - fl Normal No Oct 24 te mean 97.8 2016 2:35 corpuscul on in PM ar volume source [Entitic data volume] by Automated count Monocytes 0.1 - 1.0 K/mm3 Normal No Oct 242016 2:35 [#/volume on in PM ] in source Blood by data Automated count Monocytes 1.7 - 9.3 % Normal No Oct 242016 2:35 leukocyte on in PM s in source Blood by data Automated count Platelet 7.4 - fl Normal No Oct 24 mean 10.4 2016 2:35 volume on in PM [Entitic source volume] data in Blood by Automated count Platelets 142 - 424 K/mm3 No No Oct 24ati inform2016 2:35 [#/volume on in on in PM ] in source source Blood data data Erythrocy 4.6 - 6.2 M/mm3 Normal No Oct 24 anisa 2016 2:35 [#/volume on in PM ] in source Amniotic data fluid Erythrocy 11.5 - % Normal No Oct 24 te 17.5 2016 2:35 distribut on in PM ion width source [Entitic data volume] by Automated count Leukocyte 4.8 - K/MM3 High No Oct 24 s 10.8 2016 2:35 [#/volume on in PM ] in source Blood data Differential panel, method unspecified - Observa Value Referen Units Interpr Notes Date tion ce etation Range Basophils 0 - 1 % High No Oct 242016 2:35 leukocyte on in PM s in source Blood by data Automated count Eosinophi 0 - 3 % High No Oct 242016 2:35 leukocyte on in PM s in source Blood by data Manual count LYMPH 34 10 - 50 % Normal No Oct 24 inform2016 tion in 2:35 PM source data Monocytes 2 - 9 % Normal No Oct 24 /100 inform2016 2:35 leukocyte on in PM s in source Blood by data Automated count Platele NORMAL No No No No Oct 24 ts informa informa informa inform2016 [Presen tion in tion in tion in tion in 2:35 PM ce] in source source source source Blood data data data data by Light microsc opy Neutrophi 42 - 76 % Normal No Oct 24 ls 2016 2:35 [#/volume on in PM ] in source Blood by data Automated count Cells No #CELLS No No Oct 24 Counted informati informati inform2016 2:35 Total [#] on in on in on in PM in Blood source source source data data data INR in Blood by Coagulation assay Observa Value Referen Units Interpr Notes Date ti etation Range IS PATIENT ON ANTICOAGULANTS? N PTT RESULTS MUST BE CALLED IF PT ON HEPARIN!!! 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 N PTT RESULTS MUST BE CALLED IF PT ON HEPARIN!!! Y Activated 23.6 - SECONDS Normal No Oct 24 partial 34.0 inform2016 2:35 thrombpla on in PM stin time source (aPTT) data in Platelet poor plasma by Coagulati on assay Urea nitrogen [Mass/volume] in Serum or Plasma Observa Value Referen Units Interpr Notes Date ti ce etation Range Urea 7 - 18 [...]
--- OUTSIDE RECORDS SUMMARY | 2016-10-24 17:17 | External Medical Summary Rpt ---
[...] 2016 2:35 Coagulati on in on in [id number] PM on assay source source CATION data [...]
[2016-10-24 17:25] LABS: URINE BILIRUBIN - DIPSTICK NEGATIVE (NEG); URINE BLOOD NEGATIVE (NEG)
[2016-10-24 17:49] LABS: URINE SQUAMOUS CELLS OCC #/hpf (OCC)
--- NOTE | 2016-10-24 18:01 | HISTORY AND PHYSICAL REPORT ---
Demographics: Admit date: 10/24/16 Chief complaint: Shortness of air and tachycardia PRIMARY DIAGNOSIS: RAPID A FIB, CHF Allergies: Coded Allergies: No Known Allergies (10/24/16) History of present illness: History of present illness: 76-year-old white male, patient of Dr. Stevenson, well known to cardiology service who is currently in the process of being worked up for pacemaker implantation for dysrhythmia/atrial fibrillation episodes who presented to the emergency department with rapid heart rate, found to be in rapid atrial fibrillation and wheezing and short of air. He was given several doses of medication in the emergency department and placed on diltiazem drip, transferred to the step down unit for further violation and I examined him there this evening. He states he feels "some better" but continues to have shortness of air and cough along with a feeling of dyspnea. Past medical history: Family HX Diabetes No CAD No Hypertension Yes Hyperlipidemia No Cancer No TB No Immunization HX Ped.Immunizations UTD Yes DT/Tetanus Unknown Flu Refused Pneumonia Received In Past General CAD? No Angina: No NM: Yes Hypertension? Yes Hyperlipidemia? Yes CHF? No DVT? No PE? No COPD? Yes Asthma? Yes Anemia? No GERD? No Gastric ulcers? No GI Bleed? No Hernia? No Thyroid Problems? No Hypothyroidism? No CVA? No Seizures? No Diabetes? No Renal Insuffiency? No UTI? No Stones? No GB Disease: No Nephritic Syndrome? No Asplenia? No Hepatitis? No Sickle Cell Disease? No Arthritis? No Migraines? No Cataracts? Yes Glaucoma? No MRSA? No HIV? No TB? No Anxiety? No Depression? No Cancer? No More? Yes Additional hx: ATRIAL FIB Past Surgical HX Previous Surgery?Y HERNIA REPAIR 1959' LT MUSCLE ARM & LEG RIGHT KNEE SURGERY CATARACTS ON R EYE HERNIA 2016 Current home meds: Reported Medications Roflumilast (Daliresp) 500 MCG PO DAILY #30 TAB Bisoprolol Fumarate 5 MG PO DAILY #30 Furosemide 40 MG PO BID #30 HYDROCODONE/ACETAMINOPHEN (Hydrocodon-Acetaminophen 5-325) 1 TAB PO PRN PRN PAIN #30 CETIRIZINE HCL (Cetirizine 10MG) 10 MG PO DAILYP PRN allergies Roflumilast (Daliresp) 500 MCG PO DAILY Azithromycin (Azithromycin 250MG TAB) 250 MG PO DAILY Aspirin (Aspirin EC) 81 MG PO DAILY 30 Days Potassium Chloride 10 MEQ PO DAILY 30 Days Omeprazole (Omeprazole 20MG) 20 MG PO DAILY 30 Days Cyclobenzaprine Hcl (Cyclobenzaprine 10MG) 10 MG PO DAILY TAMSULOSIN HCL (Tamsulosin 0.4MG) 0.4 MG PO QHS Digoxin (Digitek) 250 MCG PO DAILY Social Hx: Smoking HX Tobacco No Type Cigarettes Packs/day < 1 PACK Alcohol Alcohol: No Hx of Drug Use Drug Use? No Patien't marital status is Patient's support system is good Review of systems: Constitutional malaise, weakness. Respiratory cough, SOB with excertion, SOB at rest, wheezing. Cardiovascular see HPI Gastrointestinal/Abdominal difficulty swallowing, nausea Genitourinary No: dysuria, frequency, hesitancy. Musculoskeletal No: no symptoms reported. Neurological No: see HPI. Exam: Lab data for last 24 hours: Laboratory Tests 10/24/16 1710: Urine Color YELLOW, Urine Appearance CLEAR, Urine pH 6.0, Ur Specific Parsons 1.015, Urine Protein NEGATIVE, Urine Ketones NEGATIVE, Urine Blood NEGATIVE, Urine Nitrate NEGATIVE, Urine Bilirubin NEGATIVE, Urine Urobilinogen 0.2, Ur Leukocyte Esterase NEGATIVE, Urine RBC 3-5, Urine WBC OCC, Ur Squamous Epith Cells OCC, Urine Bacteria TRACE, Hyaline Casts OCC, Urine Glucose NEGATIVE 10/24/16 1435: B-Natriuretic Peptide 35 10/24/16 1435: Sodium 143, Potassium 4.0, Chloride 105, Carbon Dioxide 29, BUN 12, Creatinine 1.0, Estimated Creat Clear 74, Estimated GFR (MDRD) 73, Glucose 103, Calcium 8.5 , Total Bilirubin 0.6, AST 14 L, ALT 12, Alkaline Phosphatase 117 H, Creatine Kinase 48, CK-MB (CK-2) Rel Index 1.0, CK and CKMB Interp < 0.5, Troponin I < 0.02, Total Protein 7.1, Albumin 3.0 L, Globulin 4.1 H, Albumin/Globulin Ratio 0.7 L, PT 10.1, INR 0.94, APTT 24.1, WBC 18.2 H, RBC 5.97, Hgb 15.6, Hct 50.3, MCV 84.3, RDW 15.4, Plt Count 188, MPV 9.0, Gran % 52.2, Gran # 9.5 H, Total Counted 100, Lymphocytes % 30.0, Monocytes % 4.1, Eosinophils % 12.6 H, Basophils % 1.1, Neutrophils 48, Lymphocytes (Manual) 34, Lymphocytes # 5.5 H, Monocytes (Manual) 4, Monocytes # 0.8, Eosinophils # 2.3 H, Eosinophils # ( Manual) 10 H, Basophils # 0.2, Basophils # (Manual) 4 H, Platelet Estimate NORMAL, PUBS MCHC 31.0 L, MCH 26.1 L, Digoxin < 0.20 L Admission vital signs: 1ST Vital Signs Result Date Time Pulse Ox 98 10/24 1432 Temp 97.8 10/24 143 Pulse 157 10/24 1432 Resp 26 10/24 1432 B/P 99/62 10/24 1509 O2 Flow Rate 15 10/24 1524 Additional information: Patient is alert, wearing oxygen mask, verbal and communicative. Appears dyspneic, but is able to finish short sentences. Heart rate in the low 100 range, and irregular rhythm. Wheezing and rhonchi throughout all lung [place]. Coughing up some yellow sputum. Abdomen soft nontender, extremities with poor perfusion, significant hygiene issues with poorly trimmed onychomycotic nails, but only 1+ edema in his feet. Able to move arms, legs and cranial nerves with no problems. Plan: Problem List 1. COPD exacerbation 2. Atrial fibrillation with RVR 3. Congestive heart failure Plan: I agree with admission -I've added nebulizer treatments with Xopenex to avoid further tachycardia, intravenous Solu-Medrol because of the COPD appearance and IV antibiotics. Cardiology ventilation a.m. Digoxin seems to have been the most effective medication use in the ER to help lower his heart rate. One more dose this evening. Please note 1 hour critical care time including record review. at 1801
--- NOTE | 2016-10-24 20:28 | RADIOLOGY REPORT PS360 ---
CHEST-PORTABLE HISTORY: Chest pain CP ORDERING PHYSICIAN: Fletcher Stevenson MD PATIENT AGE: 76 years COMPARISON: 08/25/2016 FINDINGS: There is cardiomegaly with pulmonary is congestion consistent with CHF. There is overlying artifact from defibrillator device. Pleural thickening is noted on the right and there is chronic blunting of the left CP angle. Study is somewhat limited technically. IMPRESSION: CHF with chronic changes.
[2016-10-24] MEDS ORDERED: ANORO ELLIPTA1 POW IH ×2 (21:00→21:01)
[2016-10-24] MEDS ORDERED: ARNUITY EL100 MCG/Ac IH (21:03)
[2016-10-24] MEDS ORDERED: NITROGLYCERIN0.4 MG SL (21:05)
[2016-10-24] MEDS ORDERED: NYSTATIN SU60 ML/BOT PO (21:15)
[2016-10-25] VITALS (29 sets, daily range): BP systolic 110–152; BP diastolic 50–99
[2016-10-25 06:00] LABS: HEMOGLOBIN 15.9 g/dL (14.1-18.0); LYMPH % 16.2 % (10-50)
--- NOTE | 2016-10-25 07:15 | ACUTE CARE PROGRESS NOTE (QUA) ---
Progress Notes Subjective Date 10/25/16 Time 0713 Note Patient reports feeling some better this morning. Nursing staff reports the patient showed a lot of variability in his heart rate reaching a low of 39 overnight. Nursing also reports that his heart rate will jump from 70 up to 150. Patient is awake and alert this morning. Heart is irregularly irregular. Lungs sound better than usual. He has expiratory wheezes posteriorly with rhonchi throughout. Cardiology consult today for the patient's sick sinus syndrome Objective Findings Last VS-Temp:98.0 B/P:122/88 Pulse:99 Resp:20 SaO2:96 OXYGEN Last weight lbs:188 oz:3 K.36 Method:Bed Scales I&O Past 24 Hrs-ending at 0700 10/25 0700 Intake Total 1565 Output Total 1525 Balance 40 Assessment/Plan Problem List 1. COPD exacerbation 2. Atrial fibrillation with RVR 3. Congestive heart failure Qualifiers: Congestive heart failure type: unspecified congestive heart failure type Congestive heart failure chronicity: acute Qualified Code: I50.9 - Heart failure , unspecified Patient condition Stable Plan: continue current care, consult bottoming room inspector This inpt stay is expected to cross 2 MNs from start of care Yes
--- NOTE | 2016-10-25 07:41 | PHARMACY CLINIC NOTE ---
Patient Demographics Patient Demographics Admission date: 10/24/16 Date: 10/25/16 Time: 0740 Allergies Coded Allergies: No Known Allergies (10/24/16) HEIGHT- FT: 6 IN: 0.00 K.360 VTE General Information Labs: Laboratory Tests 10/25 10/24 0530 1435 Coagulation PT (9.4 - 11.8 SECONDS) 10.1 INR (0.9 - 1.1) 0.94 APTT (23.6 - 34.0 SECONDS) 24.1 Hematology Hgb (14.1 - 18.0 g/dL) 15.9 15.6 Hct (42.0 - 52.0 %) 50.7 50.3 Plt Count (142 - 424 K/mm3) 176 188 Disclaimer The following section includes nursing documentation that has been pulled in for pharmacy review. Patient's VTE score: 3 Patient's VTE Risk: LOW RISK Clinical trial participant? No VTE prophylaxis NQF [id number] VTE prophylaxis ordered? Yes Type of prophylaxis/treatment: Lovenox, KISHOR (1MG/KG) at 0740
--- NOTE | 2016-10-25 08:59 | CONSULT NOTE ---
Standard Demographics Patient Demo Date of Consultation: 10/25/16 Referring Provider: Fletcher Stevenson MD Reason for Consultation: A. fib with RVR, SSS PRIMARY DIAGNOSIS: RAPID A FIB, CHF Problem list Problem list: 1. Chronic obstructive pulmonary disease/chronic bronchitis A. Chronic oxygen therapy B. History of tobacco use discontinued one year ago 2. Hypertension A. Echo, 08/2016, 1. Normal left ventricular size, mild concentric left ventricular hypertrophy, visually estimated ejection fraction 55% with no obvious regional wall motion abnormality, grade 1 diastolic dysfunction seen without tissue Doppler evidence of raised left atrial pressure. 2. Mild mitral and tricuspid regurgitation, calculated right ventricular systolic pressure 47 mmHg consistent with moderate pulmonary hypertension. 3. No significant pericardial effusion noted. 3. History of atrial fibrillation. A. History of gastrointestinal bleed on Xarelto therapy. 4. Non-obstructive CAD A. Cardiac cath, 09/2016, mild CAD, normal LVEF, mild LVEDP and pulmonary HTN. History of present illness: History of present illness: 76-year-old white male, patient of Dr. Stevenson, well known to cardiology service who is currently in the process of being worked up for pacemaker implantation for dysrhythmia/atrial fibrillation episodes who presented to the emergency department with rapid heart rate, found to be in rapid atrial fibrillation and wheezing and short of air. He was given several doses of medication in the emergency department and placed on diltiazem drip, transferred to the step down unit for further evaluation. The above per Dr. Sutherland. Pt relates 3 days of increasing SOA, LE edema and intermittent palpitations with the worst episode occurring yesterday that prompted ER visit. Pt was sedated in ER with 3 unsuccessful attempts at cardioversion due to unstable a.fib with RVR. Overnight, the patient was noted to have marked bradycardia with pauses of up to 4 sec on diltiazem gtt despite decreasing doses. Currently in bed without acute distress. Telemetry shows HR in the low 100's. Pt with audible wheezing but denies chest pains. Past Medical History: General: Hypertension Yes CVA No Seizures No TB No COPD Yes Asthma Yes Diabetes No Angina No DC Yes Hyperlipidemia Yes Cancer No Ulcers No MRSA No GB Disease No Additional hx ATRIAL FIB Past Surgical HX: Previous Surgery?Y HERNIA REPAIR 1960'S LT MUSCLE ARM & LEG RIGHT KNEE SURGERY CATARACTS ON R EYE HERNIA 2016 Allergies Coded Allergies: No Known Allergies (10/24/16) Home medications: Reported Medications Omeprazole (Omeprazole 20MG) 40 MG PO DAILY 30 Days Furosemide 40 MG PO BID #30 HYDROCODONE/ACETAMINOPHEN (Hydrocodon-Acetaminophen 5-325) 1 TAB PO DAILYP PRN PAIN #30 TAB CETIRIZINE HCL (Cetirizine 10MG) 10 MG PO DAILYP PRN ALLERGIES Bisoprolol Fumarate 5 MG PO DAILY #30 TAB UMECLIDINIUM BRM/VILANTEROL TR (Anoro Ellipta 62.5-25 Mcg INH) 1 POW IH DAILY Fluticasone Furoate (Arnuity Ellipta) 100 MCG IH DAILY NITROGLYCERIN (Nitrostat) 0.4 MG SL [id number] PRN CHEST PAIN Roflumilast (Daliresp) 500 MCG PO DAILY NYSTATIN (Nystatin Susp 100,000 Units/Ml 60ML) 5 ML PO QID Aspirin (Aspirin EC) 81 MG PO DAILY 30 Days Potassium Chloride 10 MEQ PO DAILY 30 Days Cyclobenzaprine Hcl (Cyclobenzaprine 10MG) 10 MG PO DAILY TAMSULOSIN HCL (Tamsulosin 0.4MG) 0.4 MG PO QHS Digoxin (Digitek) 250 MCG PO DAILY Current Medications: Current Medications Aspirin 81 MG DAILY PO Bisoprolol Fumarate 5 MG DAILY PO Digoxin 0.25 MG DAILY PO Levalbuterol HCl 0 .STK-MED ONE INH (DC) Morphine Sulfate 0 .STK-MED ONE .ROUTE (DC) Sodium Chloride 100 ML .STK-MED ONE IV (DC) Diltiazem HCl 0 .STK-MED ONE IV (DC) Enoxaparin Sodium 80 MG BID SC Furosemide 40 MG BID PO Digoxin 0.25 MG ONCE ONE IV (DC) Levalbuterol HCl 0.63 MG TIDRT INH Azithromycin 0 .STK-MED ONE IV (DC) Ceftriaxone Sodium 0 .STK-MED ONE IV (DC) Sodium Chloride 100 ML .STK-MED ONE IV (DC) Sodium Chloride 250 ML .STK-MED ONE IV (DC) Sodium Chloride 50 ML .STK-MED ONE IV (DC) Diltiazem HCl 0 .STK-MED ONE IV (DC) Ceftriaxone Sodium 1 GM Q24H IV Sodium Chloride 50 ML Levalbuterol HCl 0.63 MG ONCE ONE INH (DC) Azithromycin 500 MG DAILY IV Sodium Chloride 250 ML Methylprednisolone Sodium Succinate 80 MG Q8 IV Diltiazem HCl 100 MG .Q6H40M IV Sodium Chloride 100 ML Morphine Sulfate 2 MG Q2HP PRN IV Nicotine 21 MG DAILYP PRN TD Ondansetron HCl 4 MG Q6HP PRN IV Sodium Chloride 10 ML PRN PRN IV Digoxin 0 .STK-MED ONE .ROUTE (DC) Enoxaparin Sodium 0 .STK-MED ONE SC (DC) Ondansetron HCl 0 .STK-MED ONE .ROUTE (DC) Furosemide 0 .STK-MED ONE .ROUTE (DC) Morphine Sulfate 0 .STK-MED ONE .ROUTE (DC) Sodium Chloride 1,000 ML .STK-MED ONE IV (DC) Digoxin 0.25 MG ONCE ONE IV (DC) Diltiazem HCl 100 MG ONCE ONE IV (DC) Sodium Chloride 100 ML Diltiazem HCl 20 MG ONCE ONE IV (DC) Enoxaparin Sodium 80 MG ONCE ONE SC (DC) Etomidate 7.5 MG ONCE ONE IV (DC) Furosemide 40 MG ONCE ONE IV (DC) Morphine Sulfate 4 MG ONCE ONE IV (DC) Ondansetron HCl 4 MG ONCE ONE IV (DC) Sodium Chloride 100 ML .STK-MED ONE IV (DC) Diltiazem HCl 0 .STK-MED ONE IV (DC) Sodium Chloride 1,000 ML .STK-MED ONE IV (DC) Aspirin 0 .STK-MED ONE .ROUTE (DC) Nitroglycerin 0 .STK-MED ONE SL (DC) Diltiazem HCl 0 .STK-MED ONE IV (DC) Sodium Chloride 10 ML PRN PRN IV Immunization HX Ped.Immunizations UTD Yes DT/Tetanus Unknown Flu Refused Pneumonia RECEIVED IN PAST TB Test in last year No Family history Family HX Family Hx Insignificant No Diabetes No CAD No Hypertension Yes Hyperlipidemia No Cancer No TB No Social Hx: Smoking HX Tobacco No Type Cigarettes Packs/day < 1 PACK Alcohol Alcohol: No Hx of Drug Use Drug Use? No Review of systems: Constitutional see HPI, weakness. Respiratory see HPI, orthopnea, shortness of breath, SOB with excertion, SOB at rest. Cardiovascular see HPI, palpitations Gastrointestinal/Abdominal No no symptoms reported Genitourinary No: no symptoms reported. Musculoskeletal back pain. Neurological No: no symptoms reported. Exam: Admission Vital Signs: 1ST Vital Signs Result Date Time Pulse Ox 98 10/24 1432 Temp 97.8 10/24 1432 Pulse 157 / 1432 Resp 26 10/24 1432 B/P 99/62 10/24 1509 O2 Flow Rate 15 10/24 1524 O2 Delivery OXYGEN 10/24 1730 Last Vital Signs: Vital Signs Result Date Time O2 Flow Rate 3 10/25 0844 Pulse Ox 89 10/25 0830 B/P 137/89 10/25 0830 Temp 97.7 10/25 0830 Pulse 131 10/25 0830 Resp 25 10/25 0830 O2 Delivery OXYGEN 10/25 0800 Exam General appearance: awake, no acute distress Neck: JVD Cardiovascular: irregularly irregular, tachycardia Respiratory: diminished breath sounds, wheezing Extremities: moves all, trace edema of LE's noted. Neuro: alert, intact, oriented, speech clear Laboratory data: Laboratory Tests 10/25/16 0530: Sodium 139, Potassium 4.2, Chloride 102, Carbon Dioxide 31, BUN 13, Creatinine 1.0, Estimated Creat Clear 78, Estimated GFR (MDRD) 73, Glucose 158 H, Calcium 8.5, WBC 12.4 H, RBC 5.98, Hgb 15.9, Hct 50.7, MCV 84.9, RDW 15.1, Plt Count 176, MPV 9.8, Gran % 82.1 H, Gran # 10.2 H, Lymphocytes % 16.2, Monocytes % 1.2 L, Eosinophils % 0.1, Basophils % 0.3, Lymphocytes # 2.0, Monocytes # 0.2, Eosinophils # 0.0, Basophils # 0.0, PUBS MCHC 31.4 L, MCH 26.6 L 10/25/16 0100: Troponin I < 0.02 10/24/16 2159: Troponin I < 0.02 10/24/16 1903: Troponin I < 0.02 10/24/16 1710: Urine Color YELLOW, Urine Appearance CLEAR, Urine pH 6.0, Ur Specific Pyatt 1.015, Urine Protein NEGATIVE, Urine Ketones NEGATIVE, Urine Blood NEGATIVE, Urine Nitrate NEGATIVE, Urine Bilirubin NEGATIVE, Urine Urobilinogen 0.2, Ur Leukocyte Esterase NEGATIVE, Urine RBC 3-5, Urine WBC OCC, Ur Squamous Epith Cells OCC, Urine Bacteria TRACE, Hyaline Casts OCC, Urine Glucose NEGATIVE 10/24/16 1435: B-Natriuretic Peptide 35 10/24/16 1435: Sodium 143, Potassium 4.0, Chloride 105, Carbon Dioxide 29, BUN 12, Creatinine 1.0, Estimated Creat Clear 74, Estimated GFR (MDRD) 73, Glucose 103, Calcium 8.5 , Total Bilirubin 0.6, AST 14 L, ALT 12, Alkaline Phosphatase 117 H, Creatine Kinase 48, CK-MB (CK-2) Rel Index 1.0, CK and CKMB Interp < 0.5, Troponin I < 0.02, Total Protein 7.1, Albumin 3.0 L, Globulin 4.1 H, Albumin/Globulin Ratio 0.7 L, PT 10.1, INR 0.94, APTT 24.1, WBC 18.2 H, RBC 5.97, Hgb 15.6, Hct 50.3, MCV 84.3, RDW 15.4, Plt Count 188, MPV 9.0, Gran % 52.2, Gran # 9.5 H, Total Counted 100, Lymphocytes % 30.0, Monocytes % 4.1, Eosinophils % 12.6 H, Basophils % 1.1, Neutrophils 48, Lymphocytes (Manual) 34, Lymphocytes # 5.5 H, Monocytes (Manual) 4, Monocytes # 0.8, Eosinophils # 2.3 H, Eosinophils # ( Manual) 10 H, Basophils # 0.2, Basophils # (Manual) 4 H, Platelet Estimate NORMAL, PUBS MCHC 31.0 L, MCH 26.1 L, Digoxin < 0.20 L Plan: Assessment: 1. A. fib with RVR and now marked bradycardia with pauses up to 4 sec on rate control medications (beta cherise, diltiazem), consistent with Sick sinus syndrome. CHADS-VASc score is at least 4 which places him in category for skilled nursing anticoagulation for thromboembolism prophylaxis. Pt was on a/c last year but taken off due to melena. Pt doesn't remember any workup for etiology but melena resolved after discontinuation of a/c. Will keep on lovenox for now and observe for recurrent melena. 2. CHF on CXR but with normal BNP 3. Mild CAD by recent cath. Normal Troponins this admission. 4. COPD with pulmonary HTN, mild, by recent echo. 5. HTN Recommendations: 1. Continue current meds and adjust to maintain control of A. fib without exacerbating bradycardia and pauses. 2. Continue pulmonary toiletry to improve pulmonary status. 3. Plan pacemaker placement tomorrow. at 5349
[2016-10-26] VITALS (20 sets, daily range): BP systolic 101–132; BP diastolic 55–79
--- NOTE | 2016-10-26 06:49 | ACUTE CARE PROGRESS NOTE (QUA) ---
Progress Notes Subjective Date 10/26/16 Time 0647 Note Patient reports he feels "about the same". He continues to have a moist cough. He converted to sinus rhythm around 2 PM yesterday afternoon. He is scheduled for pacemaker implantation this morning. Patient is awake and alert. Lungs have diffuse rhonchi. Heart has a regular rate and rhythm. Pacemaker implantation today. Continue steroids and nebulizers for his chronic obstructive pulmonary disease. Patient is about at his baseline pulmonary status. Objective Findings Last VS-Temp:98.2 B/P:125/68 Pulse:51 Resp:20 SaO2:97 OXYGEN Last weight lbs:189 oz:3 K.814 Method:Bed Scales Assessment/Plan Problem List 1. COPD exacerbation 2. Atrial fibrillation with RVR 3. Congestive heart failure Qualifiers: Congestive heart failure type: unspecified congestive heart failure type Congestive heart failure chronicity: acute Qualified Code: I50.9 - Heart failure , unspecified Patient condition Improving Plan: continue current care This inpt stay is expected to cross 2 MNs from start of care Yes at 0648
--- NOTE | 2016-10-26 07:31 | ACUTE CARE PROGRESS NOTE (QUA) ---
Progress Notes Subjective Date 10/26/16 Time 0725 Note 76 yo WM in bed in NAD. No chest pains. Telemetry shows sinus rhythm. Objective Findings Last VS-Temp:98.2 B/P:125/68 Pulse:51 Resp:20 SaO2:97 OXYGEN Last weight lbs:189 oz:3 K.814 Method:Bed Scales Exam General appearance: alert, awake, no acute distress Cardiovascular: regular rate & rhythm Respiratory: Diffuse wheezing bilaterally. ABD: soft, no tenderness Extremities: moves all, no peripheral edema Neuro: alert, intact, oriented Reviewed: medications, vital signs, lab results Assessment/Plan Problem List 1. COPD exacerbation 2. Atrial fibrillation with RVR Assessment/Plan: Back in sinus rhythm since yesterday. Cardizem stopped due to bradycardia. He continues on bisoprolol and digoxin. Will need anticoagulation after pacer inserted. 3. 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 Sick sinus syndrome Assessment/Plan: Pt with bifascicular block and tachy-charly syndrome. Pt to have dual chamber pacemaker inserted today. 6. Tachy-charly syndrome Patient condition Stable Plan: As above. This inpt stay is expected to cross 2 MNs from start of care Yes at 0730
--- NOTE | 2016-10-26 15:29 | Anesthesia Record ---
Anesthesia Record Part I Total IV fluids: 700 EBL (ml): 15 Urine Output: 0 B/P: 114/49 % SaO2: 95 Pulse: 70 Resps: 16 Temp: 97.8 Patient is: Awake, Mask O2, Stable Stable to PACU at: 1520 at 1528
--- NOTE | 2016-10-26 15:29 | Anesthesia Record ---
Anesthesia Record Part II Discharge time: 1550 Destination: Second Floor PACU nurse assessment review? Yes Patient is: Stable Anesthesia complications? No at 2062
--- NOTE | 2016-10-26 15:41 | RADIOLOGY REPORT PS360 ---
CHEST-PORTABLE COMPARISON: Portable upright chest 10/24/2016 HISTORY: Pacemaker placement TECHNIQUE: Portable upright chest FINDINGS: There is a left infraclavicular pacemaker noted in place with dual chamber electrodes both in good position. There is mild cardio megaly with left ventricular prominence. There is diffuse pleural calcification plaquing right lower lateral chest. Mild pulmonary congestion persists. There are monitor lines overlying the chest. IMPRESSION: Satisfactory placement of cardiac pacemaker and electrodes
[2016-10-27 04:30] VITALS: BP 139/76
[2016-10-27 05:04] LABS: LYMPH # 1.7 K/mm3 (0.7-4.5); LYMPH % 10.5 % (10-50)
[2016-10-27 05:09] LABS: HEMOGLOBIN 13.9 g/dL (14.1-18.0)
[2016-10-27 05:40] LABS: NEUTROPHILS 80 % (42-76)
--- NOTE | 2016-10-27 07:13 | ACUTE CARE PROGRESS NOTE (QUA) ---
Progress Notes Subjective Date 10/27/16 Time 0712 Note Patient is without complaints this morning. He is desiring discharge. He had pacemaker implantation late yesterday afternoon. He denies shoulder pain this morning. Currently he is heart rate is 70 and paced on the monitor. He awakens easily this morning. Noticeable chronic rhonchi when breathing. Lungs have expiratory wheezes and rhonchi. No rales are heard. Heart rate is regular. Abdomen is soft. Patient will be given an additional dose of Lasix this morning. Area continue his steroids. I have asked the patient to see how the morning goes and ambulate within his room. If no problems he will be discharged home later this afternoon with outpatient follow-up with cardiology Objective Findings Last VS-Temp:97.6 B/P:139/76 Pulse:70 Resp:20 SaO2:95 OXYGEN Last weight lbs:190 oz:0 K.183 Method:Bed Scales Laboratory Tests 10/27/16 0410: Sodium 139, Potassium 4.9, Chloride 103, Carbon Dioxide 35 H, BUN 32 H, Creatinine 1.2, Estimated Creat Clear 65, Estimated GFR (MDRD) 59, Glucose 115 H, Calcium 8.4 L, WBC 16.5 H, RBC 5.25, Hgb 13.9 L, Hct 44.6, MCV 84.9, RDW 15.4, Plt Count 172, MPV 9.7, Gran % 85.1 H, Gran # 14.0 H, Total Counted 100, Lymphocytes % 10.5, Monocytes % 4.3, Eosinophils % 0.0 L, Basophils % 0.1, Neutrophils 80 H, Band Neutrophils 6, Lymphocytes (Manual) 14, Lymphocytes # 1.7, Monocytes # 0.7, Eosinophils # 0.0, Basophils # 0.0, Platelet Estimate NORMAL, Hypochromasia 1+, Poikilocytosis SL., Anisocytosis 1+, Rouleaux SL., PUBS MCHC 31.2 L, MCH 26.5 L Assessment/Plan Problem List 1. COPD exacerbation 2. Atrial fibrillation with RVR 3. 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 Sick sinus syndrome 6. Tachy-charly syndrome Patient condition Improving This inpt stay is expected to cross 2 MNs from start of care Yes at 0713
[2016-10-27 08:00] VITALS: BP 128/67
[2016-10-27 09:45] VITALS: BP 125/69
[2016-10-27 12:00] VITALS: BP 125/69
[2016-10-27] MEDS ORDERED: ELIQUIS5 MG PO (15:20)
[2016-10-27 17:40] VITALS: BP 125/69
--- NOTE | 2016-10-27 18:03 | RADIOLOGY REPORT PS360 ---
PACEMAKER/DEFIBRILLATOR COMPARISON: Portable upright chest same date HISTORY: Pacemaker placement TECHNIQUE: Fluoroscopy in surgery FINDINGS: Single fluoroscopic spot film shows the dual chamber electrodes both appearing to be in satisfactory position. IMPRESSION: Satisfactory pacemaker electrodes placement
--- NOTE | 2016-10-31 14:56 | Operative Note ---
Pacemaker Procedure performed: Pacemaker placement Date of procedure: 10/26/16 Time: 1000 Preoperative Diagnosis: Symptomatic Tachy/Servando syndrome Indication for test: See above Complications: None EBL Less than 10 ml Technique: 1% Lidocaine with epinephrine used to anesthetize the left anterior aspect of the chest.Scalpel was used to make the initial cutaneous incision while electrocautery was used to dissect down into the fascia. The fascia was lifted off the pectoralis muscle and digitally manipulated creating a pocket for the pacemaker. The patient was then placed in Trendelenburg position and the subclavian vein was accessed via the Selinger technique. A 7 [place] sheath was placed under fluoroscopic guidance into the subclavian vein. Following this, an additional wire was placed into the sheath. Now, with two wires inside the 7 [place] sheath, this sheath was removed, maintaining the two wires in the subclavian vein. The sheath and dilator was then placed over one of the wires while keeping the other wire in place within the subclavian vein. The dilator was removed from the sheath. Using fluoroscopic guidance, the ventricular lead was placed into the right ventricular apex, screwed and secured into place. Electronic interrogation proved acceptable thresholds and voltage within the lead. Using 3-0 silk, the ventricular lead was then secured into place. Lead was secured to the fascia using the 3-0 silk. Following this, the sheath was pealed away. An additional 7 [place] fresh sheath and dilator was placed over the existing wire. Using fluoroscopic guidance, the atrial lead was then placed into the right atrial appendage and screwed and secured in place. Electrical interrogation demonstrated acceptable thresholds and voltage numbers. The atrial lead was then secured into place using 3-0 silk and then the lead was finally secured to the fascia. With both the atria and ventricular leads in place with acceptable thresholds and sensitivity, the atrial and ventricular leads were placed into the pacemaker generator. Pacemaker generator was then secured to the fascia using 3-0 silk. 1 gram of Ancef was used to flush the pocket. Following the pacemaker being secured to the fascia and in place, Monocryl was used to close the subcutaneous layers while natalee were used to close the cutaneous layer. A pressure dressing was placed and the patient was transferred to the postop holding area in stable condition for postoperative care. Impression: Procedure 1. Pocket formation for PPM. 2. Placement of atrial sensing and pacing coil into the right atrial appendage. 3. Placement of ventricular sensing and pacing coil in the right ventricular apex. 4. Permanent PPM placement. Interrogation: Generator [employer] Model # [id number] Serial # [id number] RA Model # [id number] Serial # [id number] P-wave 4.0 Impedance 540 Threshold 1.4 Pulse Width 0.4 mA RVA Model # [id number] Serial # [id number] R-wave 7-8 Impedance 900 Threshold 0.7 Pulse Width 0.4 mA Pacing Parameters: Mode: DDDR Base/Max Track: 70/110 Max Sensor No D/S at 10 volts Plan: Routine post op care at 6321
--- NOTE | 2016-10-31 14:56 | Operative Note ---
Pacemaker Procedure performed: Pacemaker placement Date of procedure: 10/26/16 Time: 1000 Preoperative Diagnosis: Symptomatic Tachy/Servando syndrome Indication for test: See above Complications: None EBL Less than 10 ml Technique: 1% Lidocaine with epinephrine used to anesthetize the left anterior aspect of the chest.Scalpel was used to make the initial cutaneous incision while electrocautery was used to dissect down into the fascia. The fascia was lifted off the pectoralis muscle and digitally manipulated creating a pocket for the pacemaker. The patient was then placed in Trendelenburg position and the subclavian vein was accessed via the Selinger technique. A 7 [place] sheath was placed under fluoroscopic guidance into the subclavian vein. Following this, an additional wire was placed into the sheath. Now, with two wires inside the 7 [place] sheath, this sheath was removed, maintaining the two wires in the subclavian vein. The sheath and dilator was then placed over one of the wires while keeping the other wire in place within the subclavian vein. The dilator was removed from the sheath. Using fluoroscopic guidance, the ventricular lead was placed into the right ventricular apex, screwed and secured into place. Electronic interrogation proved acceptable thresholds and voltage within the lead. Using 3-0 silk, the ventricular lead was then secured into place. Lead was secured to the fascia using the 3-0 silk. Following this, the sheath was pealed away. An additional 7 [place] fresh sheath and dilator was placed over the existing wire. Using fluoroscopic guidance, the atrial lead was then placed into the right atrial appendage and screwed and secured in place. Electrical interrogation demonstrated acceptable thresholds and voltage numbers. The atrial lead was then secured into place using 3-0 silk and then the lead was finally secured to the fascia. With both the atria and ventricular leads in place with acceptable thresholds and sensitivity, the atrial and ventricular leads were placed into the pacemaker generator. Pacemaker generator was then secured to the fascia using 3-0 silk. 1 gram of Ancef was used to flush the pocket. Following the pacemaker being secured to the fascia and in place, Monocryl was used to close the subcutaneous layers while natalee were used to close the cutaneous layer. A pressure dressing was placed and the patient was transferred to the postop holding area in stable condition for postoperative care. Impression: Procedure 1. Pocket formation for PPM. 2. Placement of atrial sensing and pacing coil into the right atrial appendage. 3. Placement of ventricular sensing and pacing coil in the right ventricular apex. 4. Permanent PPM placement. Interrogation: Generator [employer] Model # [id number] Serial # [id number] RA Model # [id number] Serial # [id number] P-wave 4.0 Impedance 540 Threshold 1.4 Pulse Width 0.4 mA RVA Model # [id number] Serial # [id number] R-wave 7-8 Impedance 900 Threshold 0.7 Pulse Width 0.4 mA Pacing Parameters: Mode: DDDR Base/Max Track: 70/110 Max Sensor No D/S at 10 volts Plan: Routine post op care at 1490
[2016-11-05] MEDS ORDERED: BISOPROLOL 5MG T5 MG PO (07:10)
[2016-11-05] MEDS ORDERED: AUGMENTIN 875-1 EACH PO (07:12)
[2016-11-05] MEDS ORDERED: DELTASONE20 MG PO (07:13)
[2016-11-06] MEDS ORDERED: CARDIZEM CD 12120 MG PO (06:33)
== END 2016-10-27 17:47 | disposition home or self-care (01) | DRG 243 ==
LOC: ER 14:28 → 2ND 16:34
PROVIDERS: Emergency Medicine; Family Medicine; Internal Medicine
PROC: 02H63JZ Insertion of Pacemaker Lead into Right Atrium, Percutaneous Approach (ICD-10-PCS; 2016-10-26)
PROC: 02HK3JZ Insertion of Pacemaker Lead into Right Ventricle, Percutaneous Approach (ICD-10-PCS; 2016-10-26)
PROC: 0JH606Z Insertion of Pacemaker, Dual Chamber into Chest Subcutaneous Tissue and Fascia, Open Approach (ICD-10-PCS; principal; 2016-10-26 11:30)
DX: I49.5 Sick sinus syndrome (principal); J44.1 Chronic obstructive pulmonary disease with (acute) exacerbation; I50.9 Heart failure, unspecified; I45.2 Bifascicular block; I48.91 Unspecified atrial fibrillation; Z45.09 Encounter for adjustment and management of other cardiac device
CPT/HCPCS: C1785; C1898; J0456; J2405

== ENCOUNTER 2016-11-15 12:27 | Inpatient (IN) | payer MEDICARE, MEDICAID ==
[~2016-11-15] VITALS: Ht 182.9 cm; Wt 82.2 kg
[2016-11-15] VITALS (11 sets, daily range): BP systolic 90–161; BP diastolic 51–82
[~2016-11-15 12:27] MED LIST changes: +ANORO ELLIPTA1 POW IH; +ARNUITY EL100 MCG/Ac IH; +AUGMENTIN 875-1 EACH PO; +AZITHROMYCIN250 MG PO; +BISOPROLOL 5MG T5 MG PO; +BISOPROLOL FM5 MG PO; +CARDIZEM CD 12120 MG PO; +CETIRIZINE HCL10 MG PO; +ELIQUIS5 MG PO; +NITROGLYCERIN0.4 MG SL; +NYSTATIN SU60 ML/BOT PO
--- OUTSIDE RECORDS SUMMARY | 2016-11-15 14:10 | External Medical Summary Rpt ---
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 Name Role Phone A Kristy QUEZADA MD PSC, Darnell Unavailable Unavailable Kristy QUEZADA MD PSC [facility], [...] Unavailable ROBBINS JESS, ROBBINS Unavailable Unavailable JESS [facility] Unavailable Unavailable SERVICE, [facility] Unavailable Unavailable SERVICE, [facility] Unavailable Unavailable [place], [...] TAYLOR KEYANA, TAYLOR Unavailable Unavailable KEYANA [facility] Unavailable Un[facility] Unavailable Unavailable [facility]PITAL P, [facility] DONTE RUIZ, Unavailable Unavailable DONTE RUIZ [facility], Unavailable Unavailable [facility] ARMENDARIZ JENNA, ARMENDARIZ JENNA Unavailable Unavailable HUI MIKHAIL, HUI MIKHAIL Unavailable Unavailable BECKY MAR, BECKY Unavailable Unavailable MAR [facility] KUMAR MARIAN, Unavailable Unavailable KUMAR MARIAN NINI, CALLIE W, Unavailable Unavailable NINI, CALLIE W [facility] Un[facility] GLENN JR, GLENN JR Unavailable Unavailable GLENN JR DWI, GLENN Unavailable Unavailable JR DWI [facility] Unavailable Unavailable [facility], [facility] JAMES CON, JAMES CON Unavailable Unavailable POLLOCK, POLLOCK Unavailable Unavailable POLLOCK JAM, Unavailable Unavailable POLLOCK JAM POLLOCK JAM, Unavailable Unavailable POLLOCK JAM JANE VILLEGAS P, Unavailable Unavailable JANE VILLEGAS P [facility] Unavailable Unavailable [facility] Unavailable Unavailable [facility] LORI BET, LORI BET Unavailable Unavailable KIRILL, KIRILL Unavailable Unavailable KIRILL JENNA, KIRILL JENNA Unavailable Unavailable ALIRIO BRILL YOL, Unavailable Unavailable ALIRIO BRILL YOL REYEZ CLEO, REYEZ CLEO Unavailable Unavailable VALORIE NEEL, VALORIE NEEL Unavailable Unavailable [facility] Unavailable Unavailable LAB[facility] PAVEZ MAR, PAVEZ MAR Unavailable Unavailable PAULA JURGEN Unavailable Unavailable ANNEL, PAULA JURGEN [facility]EL [facility]available [facility], [id number], Unavailable Unavailable [id number] Unavailable Unavailable [id number] [address] [id number], [facility] [id number] # [id number] SHANELL CAR, Unavailable Unavailable SHANELL [...] PALMA JANENE MADALYN, JANENE Unavailable Unavailable MADALYN OTTO SUSAN, OTTO Unavailable Unavailable [facility], Unavailable Unavailable [facility] Unavailable [facility], [facility] HIEU FRANCO, HIEU Unavailable Unavailable [facility], Unavailable [facility]available [facility], Unavailable [facility]available [facility] MARINA NIXON, Unavailable Unavailable MARINA NIXON Purpose Continuity of Care Document - 04-25-2007 through 2016 Problems Code Diagnosis DOS Provider Status E785 HYPERLIPIDE 10-04-2016 [facility] UNSPECIFIED GROUP I119 HYPERTENSIV 10-04-2016 [facility] E HEART PHYSICIANS DISEASE GROUP WITHOUT HEART FAILURE 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 J449 CHRONIC 10-04-2016 [facility] OBSTRUCTIVE PHYSICIANS PULMONARY GROUP DISEASE UNS R0600 DYSPNEA 10-04-2016 [facility] UNSPECIFIED PHYSICIANS GROUP R0602 SHORTNESS 09-14-2016 [place] [facility] R918 OTHER 09-14-2016 [place] NONSPECIFIC MEDICAL ABNORMAL IMAGING ASS FINDING OF LUNG FIELD 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 09-11-2016 [facility] BR[facility]CH[facility] LLC J410 SIMPLE 09-04-2016 A Kristy QUEZADA CHRONIC PSC BRONCHITIS R938 ABNORMAL 09-04-2016 [facility] FIND ON DX PHYSICIANS IMAGING OTH GROUP SPEC BODY STRCT I200 UNSTABLE 08-27-2016 [facility] ANGINA PHYSICIANS GROUP I10 ESSENTIAL 08-25-2016 [facility] P N [id number] ASHD CONFEDERATED SALISH 08-25-2016 [facility] W/[facility] P ANGINA PECTORIS I272 OTHER 08-25-2016 [facility] P HYPERTENSIO N R079 CHEST PAIN 08-25-2016 [place] U[facility]PECIFIED [facility]ICAL IMAGING ASS I4891 UNSPECIFIED 07-03-2016 [facility] FIBRILLATIO MEDICAL N EQUIPME I482 CHRONIC 06-14-2016 A Kristy QUEZADA ATRIAL PSC FIBRILLATIO N J9610 CHRONIC 06-14-2016 A Kristy QUEZADA RESPIRATORY PSC FAIL UNS HYPOXIA/HYP ERCAPNIA R296 REPEATED 06-14-2016 Darnell KHAN MD PSC J441 CHRONIC 05-25-2016 Darnell QUEZADA OBSTRUCTIVE PSC PULMONARY DZ W/EXACERBAT ION B957 OT 05-14-2016 [facility] STAPHYLOCOC [facility] CUSS CAUSE INC OF DZ CLASSIFIED ELSW J209 ACUTE 05-14-2016 [facility] BRONCHITIS [facility] UNSPECIFIED INC J440 COPD WITH 05-14-2016 [facility] ACUTE LOWER [facility] INC RESPIRATORY INFECTION 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 QUEZADA ATRIAL PSC FIBRILLATIO N I5020 UNSPECIFIED 05-10-2016 A Kristy QUEZADA SYSTOLIC PSC CONGESTIVE HEART FAILURE C9110 CHRONIC 01-11-2016 [facility] MEDICAL 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 R634 ABNORMAL 01-11-2016 [facility] WEIGHT LOSS [facility] INC R1110 VOMITING 01-09-2016 [facility] UNSPECIFIED PHYSICIANS GROUP K828 OTHER 01-02-2016 [place] SPECIFIED MEDICAL DISEASES OF IMAGING ASS GALLBLADDER R630 ANOREXIA 01-02-2016 [facility] K921 MELENA 11-07-2015 [facility] K5710 DIVERTICULO 11-03-2015 [place] SIS SM MEDICAL INTEST W/O IMAGING ASS PERF/ABSC W/O BLEED R195 OTHER FECAL 11-03-2015 [place] [facility] ABNORMALITI IMAGING ASS ES U15871 LYMPHOCYTOS 10-26-2015 [facility] IS PATHOLOGY SYMPTOMATIC LAB NETW J690 PNEUMONITIS 10-26-2015 [facility] MED[facility] DUE TO SERV INHALATION FOUNDATION OF FOOD AND VOMIT Z09 ENC F/U 10-20-2015 A Kristy QUEZADA EXAM AFTR PSC CMPL TX OTH THAN MALIG NEOPLSM B370 CANDIDAL 10-19-2015 [facility] STOMATITIS SERV FOUNDATION R112 NAUSEA WITH 10-19-2015 [facility] VOMITING SERV UNSPECIFIED FOUNDATION I509 HEART 10-15-2015 [facility] FAILURE HOME UNSPECIFIED MEDICAL EQUIPME R531 WEAKNESS 09-20-2015 [facility] 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 [facility] MEDICAL R BLOCK SERV FOUNDATION R9431 ABNORMAL 09-18-2015 [facility] MEDICAL ELECTROCARD SERV IOGRAM FOUNDATION I4510 UNSPECIFIED 09-15-2015 [facility] MEDICAL RIGHT SERV BUNDLE-BRAN FOUNDATION CH BLOCK R001 BRADYCARDIA 09-15-2015 [facility] SERV UNSPECIFIED FOUNDATION B965 PSEUDOMONAS 09-14-2015 [facility] CAUSE OF SERV DZ FOUNDATION CLASSIFIED ELSEWHERE J9600 ACUTE 09-14-2015 [facility]ICAL RESPIRATORY SERV FAIL UNS FOUNDATION HYPOXIA/HYP ERCAPNIA J9811 ATELECTASIS 09-14-2015 [facility] G81073 ENCOUNTER 09-14-2015 [facility] SURG SERV AFTERCARE FOUNDATION FLW SURG DIGESTIVE SYS Z049 ENCOUNTER 09-13-2015 [facility] EXAMINATION SERV &OBSERVATIO FOUNDATION N FOR UNS REASON K5900 CONSTIPATIO 09-12-2015 [facility]ICAL N SERV UNSPECIFIED FOUNDATION R140 ABDOMINAL 09-10-2015 [facility] MEDICAL DISTENSION SERV GASEOUS FOUNDATION R0989 OTH SPEC SX 09-09-2015 [facility] MEDICAL & SIGNS SERV INVLV THE FOUNDATION CIRC & RESP SYS A419 SEPSIS 09-08-2015 [facility] MEDICAL UNSPECIFIED SERV ORGANISM FOUNDATION E873 ALKALOSIS 09-08-2015 [place] [facility] E876 HYPOKALEMIA 09-08-2015 [facility] SERV FOUNDATION J90 PLEURAL 09-08-2015 [facility] MEDICAL EFFUSION SERV NOT FOUNDATION ELSEWHERE CLASSIFIED J9620 ACUTE 09-08-2015 [facility] MEDICAL CHRONIC SERV RESP FAIL FOUNDATION UNS HYPOXIA/HYP ERCAPNIA J984 OTHER 09-08-2015 [facility] MEDICAL DISORDERS SERV OF LUNG FOUNDATION R109 UNSPECIFIED 09-08-2015 [facility] MEDICAL ABDOMINAL SERV PAIN FOUNDATION Z4682 ENCOUNTER 09-08-2015 [facility] ADJUST HOSPI NON-VASCULA R CATHETER 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-07-2015 [facility] DISORDER SERV UNSPECIFIED FOUNDATION I517 CARDIOMEGAL 09-07-2015 [facility] Y SERV FOUNDATION I5189 OTHER 09-07-2015 [facility] MEDICAL ILL-DEFINED SERV HEART FOUNDATION DISEASES R0902 HYPOXEMIA 09-06-2015 [facility] R0689 OTHER 09-02-2015 [facility] MEDICAL ABNORMALITI SERV ES OF FOUNDATION BREATHING J942 HEMOTHORAX 08-30-2015 [facility] J948 OTHER 08-30-2015 [facility] MEDICAL SPECIFIED SERV PLEURAL FOUNDATION CONDITIONS L538 OTHER 08-30-2015 [facility] MEDICAL SPECIFIED SERV ERYTHEMATOU FOUNDATION S CONDITIONS Z9889 OTHER 08-30-2015 [facility] SPECIFIED SERV POSTPROCEDU FOUNDATION RAL STATES 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 K4030 UNILAT 08-25-2015 [place] INGUINAL [facility] NGUYEN W/OBST HOSPI W/O GANGRN NOT RECUR K4040 UNILAT 08-25-2015 [facility] INGUINAL SERV NGUYEN FOUNDATION W/GANGREN NOT SPEC RECUR Z7901 FDC 08-25-2015 [facility] MEDICAL CURRENT USE SERV OF FOUNDATION ANTICOAGULA NTS Y83829 ELEVATED 08-24-2015 [facility] BLOOD [facility]OSPITAL P UNSPECIFIED K4090 UNILAT 08-24-2015 [facility] INGUINAL SERV NGUYEN W/O FOUNDATION OBST/GANGRE N NOT RECUR K5660 UNSPECIFIED 08-24-2015 [facility] INTESTINAL AMBULANCE SERVICE OBSTRUCTION R1031 RIGHT LOWER 08-24-2015 [facility] Z27390 PERSONAL 08-24-2015 [facility] 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 J439 EMPHYSEMA 08-03-2015 [place] UNSPECIFIED [place] INTERNAL MED R002 PALPITATION 08-03-2015 [facility]ICAL S SERV FOUNDATION R031 NONSPECIFIC 08-03-2015 [facility] LOW SERV BLOOD-PRESS FOUNDATION URE READING R42 DIZZINESS 08-03-2015 [facility] AND SERV GIDDINESS FOUNDATION 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 08-03-2015 [place] SUPPLEMENTA INTERNAL L OXYGEN MED J189 PNEUMONIA 07-13-2015 [facility] UNSPECIFIED [facility] ORGANISM INC Z7722 CONTACT W/ 07-13-2015 [facility] & SUSPECTED SERV EXPOS [facility] ENVIR TOBACCO SMOKE J40 BRONCHITIS 03-25-2015 [place] NOT MEDICAL SPECIFIED IMAGING ASS ACUTE OR CHRONIC J929 PLEURAL 02-02-2015 [place] [facility]ICAL WITHOUT IMAGING ASS ASBESTOS R091 PLEURISY 01-21-2015 [place] [facility] 4280 CONGESTIVE 01-14-2015 [facility] HEART HOME FAILURE MEDICAL UNSPECIFIED EQUIPME 16088 OBSTRUCTIVE 01-14-2015 [facility]ACY [facility] WITHOUT EXACERBAT 496 CHRONIC 01-14-[address] [facility] [address] HOME OBSTRUCTION MEDICAL NEC EQUIPME 64015 NUCLEAR 12-28-2014 [place] SCLEROSIS JAMILAH 13526 OBST 09-06-2014 A Kristy QUEZADA CHRONIC PSC BRONCHITIS W/ACUTE BRONCHITIS 33546 LOSS OF 09-06-2014 A Kristy QUEZADA WEIGHT PSC 78049 OTHER CHEST 09-06-2014 A Kristy QUEZADA PAIN PSC 55385 OBSTRUCTIVE 09-05-2014 [facility] SLEEP HOME APNEA MEDICAL EQUIPME 7242 LUMBAGO 04-01-2014 A Kristy QUEZADA MD PSC V0382 NEED PROPH 04-01-2014 A Kristy QUEZADA VACCINATION PSC AGAINST STREP PNEUMONE 37554 ATRIAL 01-13-2014 [facility] FIBRILLATIO [facility] N INC 07869 REFLUX 01-13-2014 [facility] ESOPHAGITIS [facility] INC 76585 UNS 01-13-2014 [facility] GASTRITIS&G [facility] ASTRODUODIT INC IS W/O MENTION HEMORR 15140 ABDOMINAL 01-13-2014 [facility] PAIN, [facility] GENERALIZED INC V5869 LONG-TERM 01-13-2014 [facility] (CURRENT) [facility] USE OF INC OTHER MEDICATIONS 07202 CHEST PAIN 11-24-2013 [facility] UNSPECIFIED [facility] INC 5110 PLEURISY 10-29-2013 [place] WITHOUT MEDICAL MENTION IMAGING ASS EFFUS/CURRE NT TB 7862 COUGH 10-29-2013 [facility] 51538 INSOMNIA 12-16-2012 A Kristy QUEZADA UNSPECIFIED PSC 65467 OTHER 12-16-2012 A Kristy QUEZADA MALAISE AND PSC FATIGUE 27339 FEVER 05-23-2012 [facility] UNSPECIFIED DON 90848 WHEEZING 05-23-2012 JAMES DON 1120 CANDIDIASIS 05-21-2012 J[facility] OF MOUTH DON 25943 OTHER 05-21-2012 FRANCESCA DISEASES OF EMY LUNG NOT ELSEWHERE CLASSIFIED 4940 BRONCHIECTA 01-28-2012 [place] SIS WITHOUT MEDICAL ACUTE IMAGING ASS EXACERBATIO N 5119 UNSPECIFIED 01-28-2012 [place] PLEURAL MEDICAL EFFUSION IMAGING ASS 81188 OTHER 01-28-2012 [facility] NONSPECIFIC [facility] ABNORMAL INC FINDING OF LUNG FIELD 51226 OSTEOARTHRO 01-02-2012 JAMES S INVLV MX DON SITES BUT [place] SPEC GEN 17705 OBSTRUCTIVE 11-12-2011 [facility] CHRONIC [facility] BRONCHITIS INC WITH EXACERBATIO N 28895 ESOPHAGEAL 11-12-2011 [facility] REFLUX [facility] INC 2859 UNSPECIFIED 10-05-2011 [facility] ANEMIA [facility] INC 5180 PULMONARY 10-05-2011 [place] COLLAPSE [facility]ING ASS 486 PNEUMONIA, 09-28-2011 [place] ORGANISM MEDICAL UNSPECIFIED IMAGING ASS 5070 PNEUMONITIS 09-28-2011 [place] DUE TO JAM INHALATION OF FOOD OR VOMITUS 51678 SHORTNESS 09-28-2011 [facility] OF BREATH [facility] INC 34094 ABDOMINAL 09-28-2011 [facility] PAIN, MEM [facility] EPIGASTRIC INC V1261 PERSONAL 09-28-2011 [place] HISTORY JAM PNEUMONIA RECURRENT 45316 PNEUMONIA 06-08-2011 JAMES DUE TO DON OTHER SPECIFIED BACTERIA 2724 OTHER AND 05-11-2011 [facility] UNSPECIFIED PHYSICIANS [place] HYPERLIPIDE [place] 2768 HYPOPOTASSE 05-11-2011 [facility] [place] PHYSICIANS [place] 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 6019 UNSPECIFIED 05-11-2011 [place] [address] PAIN IN 05-11-2011 COMBINED JOINT, PHYSICIANS MULTIPLE LA SITES 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 5183 PULMONARY 11-28-2009 [facility] A 70607 ACUTE 11-28-2009 [facility] MEDICAL RESPIRATORY SERV FAILURE FOUNDATIO 7856 ENLARGEMENT 11-28-2009 [facility] NODES 7931 NONSPEC 11-28-2009 PR MEDICAL FIND RAD SERV OTH EXAM FOUNDATIO BODY STRUCT LUNG FIELD V1582 PERS HX 11-28-2009 [facility] USE [facility] 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 49893 DYSPHAGIA 11-18-2009 [place] UNSPECIFIED MEDICAL IMAGING ASS 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, 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 09112 OSTEOARTHRO 08-23-2009 [facility], SIS UNSPEC DON R WHETHER GEN/LOC LOWER LEG 80336 OSTEOARTHRO 08-23-2009 [facility], S UNSPEC DON R GEN/LOC OTH SPEC SITES 91740 MACULAR 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 RUIZ A N OF RETINA UNSPECIFIED 96676 NONEXUDATIV 07-20-2008 [facility] & 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 06616 EXUDATIVE 07-20-2008 [facility] & SENILE [facility]REOUS MACULAR ASSOCIATES DEGENERATIO O N OF RETINA 09915 CRYSTALLINE 07-20-2008 RET[facility] & DEPOSITS VITREOUS IN VITREOUS ASSOCIATES O 4610 ACUTE 02-27-2008 [facility], MAXILLARY DON R SINUSITIS 4659 ACUTE URIS 02-27-2008 [facility], OF DON R UNSPECIFIED SITE 8472 LUMBAR 11-14-2007 JAMES, SPRAIN AND DON R STRAIN 4660 ACUTE 08-02-2007 [facility], BRONCHITIS DON R 4871 INFLUENZA 07-04-2007 [facility], WITH OTHER DON R RESPIRATORY MANIFESTATI ONS 13802 PAIN IN 04-25-2007 ERIKA, JOINT, DON R SHOULDER REGION 31207 UNSPECIFIED 04-25-2007 [facility], SYNOVITIS DON R AND TENOSYNOVIT IS D64.9 ANEMIA, UNSPECIFIED D72.829 ELEVATED WHITE BLOOD CELL COUNT, UNSPECIFIED I45.2 BIFASCICULA R BLOCK I48.91 UNSPECIFIED ATRIAL FIBRILLATIO N I50.9 HEART FAILURE, UNSPECIFIED J18.9 PNEUMONIA, UNSPECIFIED ORGANISM J44.0 CHRONIC OBSTRUCTIVE PULMON DISEASE W ACUTE LOWER RESP INFCT J44.9 CHRONIC OBSTRUCTIVE PULMONARY DISEASE, UNSPECIFIED K40.90 UNIL INGUINAL HERNIA, W/O OBST OR GANGR, NOT SPCF RECUR K56.69 OTHER INTESTINAL OBSTRUCTION K92.1 MELENA R07.9 CHEST PAIN, UNSPECIFIED R10.9 UNSPECIFIED ABDOMINAL PAIN Medications Na ND Rx Da Fi Fi Am Da Di Ph RX Ph St me C No te ll ll ou ys ag ar # ys at rm s nt no ma ic us Or Da si cy ia de te s n re d CE 16 06 07 30 30 00 RI Ac TI 71 -2 -1 .0 00 TE ti RI 40 0- 4- 00 01 ve ZI 27 20 20 18 AI NE 10 17 17 50 D 2 54 PH HC AR L MA 10 CY MG #3 93 TA 8 BL ET CE 16 05 06 30 30 00 [...] ET 03 93 8 # 03 93 WA 00 04 04 00 12 6 RI [...] Range on Differential panel, method unspecified - (11-09-2016 10:03) Anisocy 11-09-2 1+ complet tosis 017 ed [Presen 10:03 ce] in Blood LYMPH 13 % 10% - Normal complet 017 50% ed 10:03 Platele 11-09-2 NORMAL complet ts 017 ed [Presen 10:03 ce] in Blood by Light microsc opy Differential panel, method unspecified - (11-05-2016 06:30) Hypochr 17-2 1+ complet omia 017 ed [Presen 06:30 ce] in Blood LYMPH 31 % 10% - Normal complet 017 50% ed 06:30 Platele NORMAL complet ts 017 ed [Presen 06:30 ce] in Blood by Light microsc opy Differential panel, method unspecified - (11-02-2016 06:15) Anisocy -14-2 1+ complet tosis 017 ed [Presen 06:15 ce] in Blood Hypochr 11-02-2 1+ complet omia 017 ed [Presen 06:15 ce] in Blood LYMPH 26 % 10% - Normal complet 017 50% ed 06:15 Blood 1+ complet smear 017 ed finding 06:15 [Identi fier] in Blood by Light microsc opy Platele MOD complet ts 017 DECREAS ed [Presen 06:15 E ce] in Blood by Light microsc opy Urinalysis dipstick W Reflex Microscopic panel in Urine (11-01-2016 00:15) Bacteri OCC O complet a 017 ed [Presen 00:15 ce] in Urine sedimen t by Light microsc opy Erythro 3-5 0 complet cytes 017 ed [Presen 00:15 ce] in Urine sedimen t by Light microsc opy Urinalysis dipstick W Reflex Microscopic panel in Urine (11-01-2016 00:15) Appeara CLEAR CLEAR complet nce of 017 ed Urine 00:15 Bilirub NEGATIV NEG complet in 017 E ed [Presen 00:15 ce] in Urine by Test strip Erythro NEGATIV NEG complet cytes 017 E ed [Presen 00:15 ce] in Urine Color YELLOW YELLOW complet of 017 ed Urine 00:15 Ketones NEGATIV NEG complet 017 E ed [Presen 00:15 ce] in Urine by Automat ed test strip Mucus NEGATIV NEG complet [Presen 017 E ed ce] in 00:15 Urine sedimen t by Light microsc opy Nitrite NEGATIV NEG complet 017 E ed [Presen 00:15 ce] in Urine by Test strip Urobili 0.2 NEG complet nogen 017 ed [Presen 00:15 ce] in Urine by Test strip Differential panel, method unspecified - (10-31-2016 21:52) Anisocy 1+ complet tosis 017 ed [Presen 21:52 ce] in Blood LYMPH 27 % 10% - Normal complet 017 50% ed 21:52 Platele NORMAL complet ts 017 ed [Presen 21:52 ce] in Blood by Light microsc opy Differential panel, method unspecified - (10-27-2016 04:10) Anisocy 1+ complet tosis 017 ed [Presen 04:10 ce] in Blood Hypochr 1+ complet omia 017 ed [Presen 04:10 ce] in Blood LYMPH 14 % 10% - Normal complet 017 50% ed 04:10 Platele NORMAL complet ts 017 ed [Presen 04:10 ce] in Blood by Light microsc opy Poikilo SL. complet cytosis 017 ed 04:10 [Presen ce] in Blood by Light microsc opy Rouleau SL. complet x 017 ed [Presen 04:10 ce] in Blood by Light microsc opy Urinalysis dipstick W Reflex Microscopic panel in Urine (10-24-2016 17:10) Bacteri 07-05-2 TRACE O complet a 017 ed [Presen 17:10 ce] in Urine sedimen t by Light microsc opy Hyaline OCC NONE complet casts 017 ed [Presen 17:10 ce] in Urine sedimen t by Light microsc opy Erythro 3-5 0 complet cytes 017 ed [Presen 17:10 ce] in Urine sedimen t by Light microsc opy Epithel OCC OCC complet ial 017 ed cells.s 17:10 quamous [Presen ce] in Urine sedimen t by Microsc opy high power field Urinalysis dipstick W Reflex Microscopic panel in Urine (10-24-2016 17:10) Appeara CLEAR CLEAR complet nce of 017 ed Urine 17:10 Bilirub NEGATIV NEG complet in 017 E ed [Presen 17:10 ce] in Urine by Test strip Erythro NEGATIV NEG complet cytes 017 E ed [Presen 17:10 ce] in Urine Color YELLOW YELLOW complet of 017 ed Urine 17:10 Ketones NEGATIV NEG complet 017 E ed [Presen 17:10 ce] in Urine by Automat ed test strip Mucus NEGATIV NEG complet [Presen 017 E ed ce] in 17:10 Urine sedimen t by Light microsc opy Nitrite NEGATIV NEG complet 017 E ed [Presen 17:10 ce] in Urine by Test strip Urobili 0.2 NEG complet nogen 017 ed [Presen 17:10 ce] in Urine by Test strip Differential panel, method unspecified - (10-24-2016 14:35) LYMPH 34 % 10% - Normal complet 017 50% ed 14:35 Platele NORMAL complet ts 017 ed [Presen 14:35 ce] in Blood by Light microsc opy Procedures Procedure DOS Code Location Performer Comment ECG [id number] [facility] ROUTINE 7 PHYSICIAN ECG S GROUP W/LEAST 12 LDS I&R ONLY CT THORAX 00771 [facility] 7 MEDICAL W/CONTRAS IMAGING T ASS MATERIAL ADMN SET A7003 YOUR YOUR SM VOL 7 PHARMACY PHARMACY [employer] PNEUMAT NEBULIZR DISPBL ALBUTEROL J7620 YOUR YOUR TO 2.5 7 PHARMACY PHARMACY [employer] IPRATROPI UM BROM TO 0.5 MG ALBUTEROL J7620 A C A C TO 2.5 7 PILAR QUEZADA MD MG & PSC PSC IPRATROPI UM BROM TO 0.[address] [facility] ROUTINE 7 PHYSICIAN ECG S GROUP W/LEAST 12 LDS I&R ONLY R & L HRT [address] [facility] CATH 7 PHYSICIAN WINJX HRT S GROUP ART& L VENTR IMG RADIOLOGI 38933 [facility] C 7 MEDICAL EXAMINATI IMAGING ON CHEST ASS SINGLE VIEW FRONTAL ECG 25610 [facility] ROUTINE 7 [facility] W/LEAST P 12 LDS I&R ONLY ALBUTEROL J7620 YOUR YOUR TO 2.5 7 PHARMACY PHARMACY [employer] IPRATROPI UM BROM TO 0.5 MG ADMN SET A7003 YOUR YOUR SM VOL 7 PHARMACY PHARMACY [employer] PNEUMAT NEBULIZR DISPBL O2 CONC 1 E1390 [facility] 7 HOME HOME 85%/>02 MEDICAL MEDICAL CONC AT EQUIPME EQUIPME PRSC FLW RATE O2 CONC 1 E1390 [facility] 7 HOME HOME 85%/>02 MEDICAL MEDICAL CONC AT EQUIPME EQUIPME PRSC FLW RATE SBSQ 68125 [facility] 7 MEDICAL CARE/DAY SERV 25 FOUNDATIO MINUTES N RADIOLOGI 89055 [facility] C EXAM 7 MEDICAL MEDICAL CHEST 2 IMAGING IMAGING VIEWS ASS ASS FRONTAL&L ATERAL O2 CONC 1 E1390 [facility] [place] 7 HOME HOME 85%/>02 MEDICAL MEDICAL CONC AT EQUIPME EQUIPME PRSC FLW RATE O2 CONC 1 E1390 [facility] 6 HOME HOME 85%/>02 MEDICAL MEDICAL CONC AT EQUIPME EQUIPME PRSC FLW RATE O2 CONC 1 E1390 [facility]JIND[facility] [place] 6 HOME HOME 85%/>02 [facility] FL[facility] ADMN SET [id number] YOUR YOUR SM VOL 6 PHARMACY PHARMACY [facility] PNEUMAT NEBULIZR DISPBL ALBUTEROL [id number] YOUR YOUR TO 2.5 6 PHARMACY PHARMACY [facility] IPRATROPI UM BROM TO 0.5 MG PHRM Q0513 YOUR YOUR DISPENSIN 6 PHARMACY PHARMACY [facility] INHALATIO N RX; PER 30 DAYS O2 CONC 1 E1390 [facility] 6 HOME HOME 85%/>02 MEDICAL MEDICAL CONC AT [facility] RATE HOSPITAL [id number] LUCY A[facility] OUTPATIEN 6 [facility] T CLIN INC INC VISIT ASSESS & MGMT PT O2 CONC 1 E1390 [facility] 6 HOME HOME 85%/>02 MEDICAL MEDICAL CONC AT [facility] FLW RATE BLOOD 19131 LUC[facility] COUNT 6 [facility] COMPLETE INC INC AUTO&[place] [address] L[facility] ABDOMEN 6 [facility] W/CONTRAS INC INC T MATERIAL COMPREHEN 94475 [facility] SIVE 6 [facility] METABOLIC INC INC PANEL COLLECTIO 12016 LUC[facility] N VENOUS 6 [facility] BLOOD INC INC VENIPUNCT URE LOCM Q9967 LUCY AYALA [phone] [facility] MG/ML INC INC IODINE CONCENTRA TION PER ML ANES 44151 [facility] UPPER GI 6 ANESTH PALMA ENDOSCOPY OF THE PROXIMAL BLUE TO DUODENUM O2 CONC 1 E1390 [facility] 6 HOME HOME 85%/>02 MEDICAL MEDICAL CONC AT [facility] FLW RATE O2 CONC 1 E1390 [facility] 6 HOME MAR 85%/>02 MEDICAL CONC AT [facility] FLW RATE RADEX 72967 LUCY AYALA UPPER GI 6 [facility] W/WO INC INC GLUCAGON/ DELAY IMAGES W/KUB RADEX 56961 [place]ONT[place] ALL UPPER GI 6 MEDICAL W/WO IMAGING GLUCAGON/ ASS DELAY IMGES W/O KUB COLLECTIO 12684 LUCY AYALA N VENOUS 6 [facility] BLOOD INC INC VENIPUNCT URE FLOW 68619 LUCY AYALA CYTOMETRY 6 [facility] CELL INC INC SURF MARKER TECHL ONLY EA FLOW 80102 MOLECULAR MOLECULAR CYTOMETRY 6 INTERPJ PATHOLOGY PATHOLOGY 2-8 LAB NETW LAB NETW MARKERS FLOW 75289 LUC[facility] AYALA CYTOMETRY 6 [facility] MEM [...] FOLDING 6 WHEELED ADJUSTABL E/FIXED HEIGHT ECG 55102 [place] [facility] CHI ROUTINE 6 MEDICAL ECG SERV W/LEAST FOUNDATIO 12 LDS N I&R ONLY ECG 36750 [place] PELAEZ ROUTINE 6 MEDICAL NAN ECG SERV W/LEAST FOUNDATIO 12 LDS N I&R ONLY SBSQ 49873 [facility] 6 MEDICAL KEYANA CARE/DAY SERV 25 FOUNDATIO MINUTES N RADIOLOGI 16362 [place] JAMES CON C 6 MEDICAL EXAMINATI SERV ON CHEST FOUNDATIO SINGLE N VIEW FRONTAL RADIOLOGI 90264 [place] WILLIEK C 6 MEDICAL AYA MAR EXAMINATI SERV ON CHEST FOUNDATIO SINGLE N VIEW FRONTAL SBSQ 51260 [facility] 6 MEDICAL KEYANA CARE/DAY SERV 15 FOUNDATIO MINUTES N SBSQ [address] [facility] 6 MEDICAL KEYANA CARE/DAY SERV 15 FOUNDATIO MINUTES N RADIOLOGI 31803 [place] ZEARING JENNA C 6 MEDICAL EXAMINATI SERV ON CHEST FOUNDATIO SINGLE N VIEW FRONTAL RADIOLOGI 05547 [place] LEATHA C 6 MEDICAL EXAMINATI SERV ON CHEST FOUNDATIO SINGLE N VIEW FRONTAL SBSQ 25115 [facility] 6 MEDICAL CARE/DAY SERV 25 FOUNDATIO MINUTES N SBSQ 07829 [facility] 6 MEDICAL CARE/DAY SERV 25 FOUNDATIO MINUTES N ECG 50681 [facility] ROUTINE 6 MEDICAL ECG SERV W/LEAST FOUNDATIO 12 LDS N I&R ONLY RADEX 49728 [place] OTT[place] ABDOMEN 1 6 MEDICAL SUSAN SERV ANTEROPOS FOUNDATIO TERIOR N VIEW RADIOLOGI 84327 [place] MAHMOOD LEATHA C 6 MEDICAL EXAMINATI SERV ON CHEST FOUNDATIO SINGLE N VIEW FRONTAL RADIOLOGI 87661 [place] JAMES CON C 6 MEDICAL EXAMINATI SERV ON CHEST FOUNDATIO SINGLE N VIEW FRONTAL RADEX 50184 [facility] ABDOM[facility] 1 6 Y OF CAR [place] [facility] TERIOR VIEW CRITICAL 66133 [facility] 6 MEDICAL ILL/INJUR SERV ED FOUNDATIO PATIENT N INIT 30-74 MIN ECG 29208 [facility] ROUTINE 6 MEDICAL ECG SERV W/LEAST FOUNDATIO 12 LDS N I&R ONLY SBSQ 51543 [place] [facility] 6 MEDICAL CARE/DAY SERV 25 FOUNDATIO MINUTES N RADEX 45008 [facility] ABDOMEN 1 6 Y OF CAR [place] [facility] TERIOR VIEW RADIOLOGI 61459 [place] ZAGUROVSK C 6 MEDICAL AYA MAR EXAMINATI SERV ON CHEST FOUNDATIO SINGLE N VIEW FRONTAL CT THORAX 31966 [place] JAMES CON 6 MEDICAL W/[place] [address] [place] REYEZ CLEO ABDOMEN & 6 MEDICAL PELVIS SERV W/CONTRAS FOUNDATIO T N MATERIAL RADIOLOGI 08488 [place] JAMES CON C 6 MEDICAL EXAMINATI SERV ON CHEST FOUNDATIO SINGLE N VIEW FRONTAL RADEX ABD 33191 [place] PAULA COMPL 6 MEDICAL JURGEN AQT ABD SERV ANNEL W/S/E/D FOUNDATIO VIEWS 1 N VIEW CH INITIAL 42774 [place] [facility] 6 MEDICAL SUN KAYODE CARE/DAY SERV 30 FOUNDATIO MINUTES N SBSQ [address]24 [facility] 6 MEDICAL AND CARE/DAY SERV 25 FOUNDATIO MINUTES N ECG 79292 [place] [facility] ROUTINE 6 MEDICAL ECG SERV W/LEAST FOUNDATIO 12 LDS N I&R ONLY ECHO 97045 [place] MILDRED TTHRC R-T 6 MEDICAL ERIKA 2D SERV W/WOM-MOD FOUNDATIO E COMPL N SPEC&COLR D SBSQ 64124 [place] [address] MEDICAL AND CARE/DAY SERV 25 FOUNDATIO MINUTES N RADIOLOGI 98532 [place] JAMES CON C 6 MEDICAL EXAMINATI SERV ON CHEST FOUNDATIO SINGLE N VIEW FRONTAL RADIOLOGI 22260 [place] JAMES CON C 6 MEDICAL EXAMINATI SERV ON CHEST FOUNDATIO SINGLE N VIEW FRONTAL ECG 83550 [place] [facility] ROUTINE 6 MEDICAL ECG SERV W/LEAST FOUNDATIO 12 LDS N I&R ONLY RADIOLOGI 00455 [place] ZAGUROVSK C 6 MEDICAL AYA MAR EXAMINATI SERV ON CHEST FOUNDATIO SINGLE N VIEW FRONTAL RADIOLOGI 08512 [place] ROBBINS C 6 MEDICAL JESS EXAMINATI SERV ON CHEST FOUNDATIO SINGLE N VIEW FRONTAL RADEX 32822 [place] ZAGUROVSK ABDOMEN 1 6 MEDICAL AYA MAR SERV ANTEROPOS FOUNDATIO TERIOR N VIEW RADIOLOGI 06239 [place] ZAGUROVSK C 6 MEDICAL AYA MAR EXAMINATI SERV ON CHEST FOUNDATIO SINGLE N VIEW FRONTAL CT THORAX 46333 [place] ARMENDARIZ JENNA 6 MEDICAL W/[place] [address] [place] AYOOB AND ABDOMEN & 6 MEDICAL PELVIS SERV W/CONTRAS FOUNDATIO T N MATERIAL RADEX 74948 [place] VALORIE NEEL ABDOMEN 1 6 MEDICAL SERV ANTEROPOS FOUNDATIO TERIOR N VIEW SBSQ [address]8791 [facility] 6 MEDICAL AND CARE/DAY SERV 25 FOUNDATIO MINUTES N SBSQ 46596 [place] [address] MEDICAL AND CARE/DAY SERV 25 FOUNDATIO MINUTES N RADIOLOGI 81350 [place] DELL CAR C 6 MEDICAL EXAMINATI SERV ON CHEST FOUNDATIO SINGLE N VIEW FRONTAL RADIOLOGI 31178 [place] JAMES CON C 6 MEDICAL EXAMINATI SERV ON CHEST FOUNDATIO SINGLE N VIEW FRONTAL ECG 34204 [place] PELAEZ ROUTINE 6 MEDICAL NAN ECG SERV W/LEAST FOUNDATIO 12 LDS N I&R ONLY SBSQ 59297 [facility] 6 MEDICAL RONNY CARE/DAY SERV 25 [place] [address] [place] HIEU SURG 6 MEDICAL FRANCO PATHOLOGY SERV FOUNDATIO GROSS&JESS N ROSCOPIC EXAM LEVEL III 14351 [place] HIEU SURG 6 MEDICAL FRANCO PATHOLOGY SERV FOUNDATIO GROSS&JESS N ROSCOPIC EXAM ANESTHESI 10064 [facility] PLAN[facility] BET A HERNIA 6 Y OF REPAIR [place] [facility] ABDOMEN NOS RPR 1ST [address] [place] [facility] INGUN 6 MEDICAL RONNY HRNA AGE SERV 6 YRS/> FOUNDATIO INCARCERA N KISHOR ECG 03275 [place] HUI MIKHAIL ROUTINE 6 MEDICAL ECG SERV W/LEAST FOUNDATIO 12 LDS N I&R ONLY ARTL 83311 [facility] CATHJ/CAN 6 Y OF Y OF NUL[facility] MNTR[facility] [place] [address] LUCY AYALA INFUSION 6 [facility] THERAPY/P INC INC ROPHYLAXI S /DX 1ST TO 1 HR INITIAL 04394 [facility] 6 MEDICAL CHR CARE/DAY SERV 50 FOUNDATIO MINUTES N GROUND A0425 [facility] 6 AMBULANCE AMBULANCE PER SERVICE SERVICE STATUTE MILE AMBULANCE A0429 [facility] SERVICE 6 AMBULANCE AMBULANCE BLS SERVICE SERVICE EMERGENCY TRANSPORT THER 90713 LUCY AYALA PROPH/DX 6 [facility] NJX EA INC INC SEQL IV PUSH SBST/DRUG FAC RADIOLOGI 39908 [place] FONT[place] C 6 MEDICAL EXAMINATI IMAGING ON CHEST ASS SINGLE VIEW FRONTAL BLOOD 29308 LUCY AYALA COUNT 6 [facility] COMPLETE INC INC AUTO&[place] [address] LUCY AYALA TROPONIN 6 [facility] QUANTITAT INC INC ARCENIO CREATINE 81234 LUCY AYALA KINASE 6 [facility] [address] LUCY AYALA LIPASE 6 [facility] INC INC ECG 34991 LUC[facility]YALA ROUTINE 6 [facility] ECG INC INC W/LEAST 12 LDS TRCG ONLY W/O I&[place] [address] [facility] ALL ABDOMEN & 6 MEDICAL PELVIS IMAGING W/O ASS CONTRAST MATERIAL INJECTION J2405 LUCY LUCY 6 [facility] ONDANSETR INC INC ON HCL PER 1 MG INJ J2543 LUCY AYALA PIPERACIL 6 [facility] YONATHAN INC INC SOD/TAZOB ACTAM SOD 1 G/0.125 G COMPREHEN 85660 LUCY AYALA SIVE 6 [facility] METABOLIC INC INC PANEL ECG 65293 LUCY BEVERLY ROUTINE 6 [facility] W/LEAST P 12 LDS I&[place] [address] LUCY AYALA AMYLASE 6 [facility] INC INC CREATINE 06448 LUCY AYALA KINASE MB 6 [facility] FRACTION INC INC ONLY COLLECTIO 79721 A Kristy ROY JENNA N VENOUS 6 PILAR PLEITEZ BLOOD PSC VENIPUNCT URE BLOOD 87182 A Kristy ROY JENNA COUNT 6 PILAR PLEITEZ COMPLETE PSC AUTO&AUTO DIFRNTL WBC NEBULIZER E0570 MILDRED LEVY WITH 6 HOME HOME COMPRESSO MEDICAL MEDICAL R EQUIPME EQUIPME INITIAL 07731 [facility] 6 [facility] CARE/DAY INTERNAL 70 MED MINUTES ECG 03081 LUCY BEVERLY ROUTINE 6 [facility] W/LEAST P 12 LDS I&R ONLY NEBULIZER E0570 MILDRED MILDRED WITH 6 HOME HOME COMPRESSO MEDICAL MEDICAL R EQUIPME EQUIPME COMPREHEN 75533 LUCY AYALA SIVE 6 [facility] METABOLIC INC INC PANEL COLLECTIO 76756 LUCY AYALA N VENOUS 6 [facility] BLOOD INC INC VENIPUNCT URE ALBUTEROL J7620 YOUR YOUR TO 2.5 6 PHARMACY PHARMACY [employer] IPRATROPI UM BROM TO 0.5 MG ADMN SET A7003 YOUR YOUR SM VOL 6 PHARMACY PHARMACY NONFILTR mycirQle PNEUMAT NEBULIZR DISPBL BLOOD 98486 LUC[facility] AYALA COUNT 6 [facility] COMPLETE INC INC AUTO&AUTO DIFRNTL WBC RADIOLOGI 83605 LUCY AYALA C EXAM 6 [facility] CHEST 2 INC INC VIEWS FRONTAL&L ATERAL PHRM Q0513 YOUR YOUR DISPENSIN 6 PHARMACY PHARMACY [employer] INHALATIO N RX; PER 30 DAYS NEBULIZER E0570 MILDRED LEVY WITH 6 HOME HOME COMPRESSO MEDICAL MEDICAL R EQUIPME EQUIPME NEBULIZER E0570 MILDRED LEVY WITH 6 HOME HOME COMPRESSO MEDICAL MEDICAL R EQUIPME EQUIPME ALBUTEROL J7620 YOUR YOUR TO 2.5 5 PHARMACY PHARMACY [employer] IPRATROPI UM BROM TO 0.5 MG PHRM Q0513 YOUR YOUR DISPENSIN 5 PHARMACY PHARMACY [employer] INHALATIO N RX; PER 30 DAYS RADIOLOGI 05160 LUCY AYALA C EXAM 5 [facility] CHEST 2 INC INC VIEWS FRONTAL&L ATERAL CT THORAX 41031 [facility] ALL 5 MEDICAL W/CONTRAS IMAGING T ASS MATERIAL RADIOLOGI 79034 LUCY AYALA C EXAM 5 [facility] CHEST 2 INC INC VIEWS FRONTAL&L ATERAL ALBUTEROL J7620 YOUR YOUR TO 2.5 5 PHARMACY PHARMACY [employer] IPRATROPI UM BROM TO 0.5 MG NEBULIZER E0570 MILDRED LEVY WITH 5 HOME HOME COMPRESSO MEDICAL MEDICAL R EQUIPME EQUIPME PHARM G0333 YOUR YOUR DISPEN 5 PHARMACY PHARMACY Tk20 [employer] RX; INITIAL 30-DAY SUPPLY CATARACT 08203 WALLACE GONSALEZ REMOVAL 5 JAMILAH JAMILAH INSERTION OF LENS [...] EQUIPME EQUIPME ARWAY PRESS DEVICE EA POLYSOM 90749 NEERAJ KERN MAR 6/>YRS 4 SLEEP 4/> NEUROSCIE ADDL NCES CENT AMA ATTND POLYSOM 03319 LUCY AYALA 6/>YRS 4 [facility] SLEEP 4/> INC INC ADDL AMA ATTND IMC/IMC G0461 LUCY AYALA PER 4 [facility] SPECIMEN; INC INC 1ST SNGL/[place] [address] LUCY AYALA SURG 4 [facility] PATHOLOGY INC INC GROSS&[place] [address] LUCY AYALA INFUSION 4 [facility] THERAPY INC INC PROPHYLAX IS/DX [place] HOUR SPCL STN 83260 LUCY AYALA 2 I&R 4 [facility] EXCPT INC INC MICROORG/ ENZYME/IM CYT SPECIAL 91983 LUCY AYALA STAIN 4 [facility] GROUP 1 INC [place] MICROORGA NISMS [place] [address] LUCY AYALA INFUSION 4 [facility] THERAPY/P INC INC ROPHYLAXI S /DX 1ST TO 1 HR SPMTRY 42471 LUCY AYALA W/VC 4 [facility] EXPIRATOR INC INC Y ALFREDO W/WO MXML VOL VNTJ ECHO 55205 LUCY AYALA TTHRC R-T 4 [facility] 2D INC INC W/WOM-MOD E COMPL SPEC&COLR D CV STRS 06721 GLENN ELIZABETH JR TST 4 DWI DWI XERS&/OR RX CONT ECG I&R ONLY CV STRS 49857 KEITH MORENO TST 4 XERS&/OR RX CONT ECG W/O I&R MYOCARDIA 24155 TEX Parra 4 MEDICAL EMY PERFUSION IMAGING PLANAR ASS MULTIPLE STUDIES MYOCARDIA 44031 LUCY AYALA L SPECT 4 [facility] MULTIPLE INC INC STUDIES RADIOLOGI 28427 LUCY Wagner EXAM 4 [facility] CHEST 2 INC [...] EQUIPME EQUIPME FLWMTR HUMIDFR&M ASK INJ J0702 JAMESKRISTA WHITLOCKHENS BETAMETHA 3 DON DON SONE ACETATE & PHOSPHATE 3 MG RADIOLOGI 83437 LUCY AYALA C EXAM 3 [facility] CHEST 2 INC INC VIEWS FRONTAL&L ATERAL INJECTION J0690 JAMES JAMES 3 DON DON [...] MEDICAL RENT; EQUIPME EQUIPME FLWMTR HUMIDFR&M ASK 3D 26486 LUCY AYALA RENDERING 2 [facility] INC INC W/INTERP& POSTPROC DIFF WORK STATION CT THORAX 98202 LUCYJOAN BOBON W/O 2 [facility] CONTRAST INC INC MATERIAL PRTBLE E0431 MILDRED MILDRED GASEOUS 2 HOME HOME O2 SYS MEDICAL MEDICAL RENT; EQUIPME EQUIPME FLWMTR HUMIDFR&M ASK TOBACCO 26048 JAMES JAMES USE 2 DON DON CESSATION INTERMEDI ATE 3-10 MINUTES PRTBLE E0431 MILDRED MILDRED GASEOUS 2 HOME HOME O2 SYS MEDICAL MEDICAL RENT; EQUIPME EQUIPME FLWMTR HUMIDFR&M ASK PRTBLE E0431 MILDRED MILDRED GASEOUS 2 HOME HOME O2 SYS MEDICAL MEDICAL RENT; EQUIPME EQUIPME FLWMTR HUMIDFR&M ASK SPMTRY 38318 LUCY AYALA W/VC 2 [facility] EXPIRATOR INC INC Y ALFREDO W/WO MXML VOL VNTJ RADIOLOGI 34839 [place] FRANCES[place] C EXAM 2 MEDICAL EMY CHEST 2 IMAGING VIEWS ASS FRONTAL&L ATERAL PRTBLE E0431 MILDRED MILDRED GASEOUS 2 HOME HOME O2 SYS MEDICAL MEDICAL RENT; EQUIPME EQUIPME FLWMTR HUMIDFR&M ASK COLLECTIO 39812 LUCY AYALA N VENOUS 2 [facility] [place] [address] LUCY AYALA IRON 2 [facility] INC INC CELL 59856 LUCY AYALA COUNT 2 [facility] MISC BODY INC INC FLUIDS W/DIFFERE NTIAL COUNT CARBOXYHE 44348 LUCY AYALA MOGLOBIN 2 [facility] QUANTITAT INC INC ARCENIO CYANOCOBA 87235 LUCY AYALA BETTIE 2 [facility] VITAMIN INC INC B-12 THORACENT 01586 [facility] [place] ESIS 2 MEDICAL EMY PUNCTURE IMAGING PLEURAL ASS CAVITY ASPIRATIO N CYTP 72557 PATHOLOGY PATHOLOGY SLCTV 2 & & CELL CYTOLOGY CYTOLOGY ENHANCEME LAB LAB NT INTERPJ XCPT C/V RADIOLOGI 78200 [facility] C EXAM 2 MEDICAL EMY CHEST 2 IMAGING VIEWS ASS FRONTAL&L ATERAL CT THORAX 34787 [place] FRANC[place] W/O 2 MEDICAL EMY CONTRAST IMAGING MATERIAL ASS PROTEIN 46347 LUCY AYALA XCPT 2 [facility] REFRACTOM INC INC ETRY SERUM PLASMA/WH L BLD CUL BACT 02723 LUCY AYALA XCPT 2 [facility] URINE INC INC BLOOD/STO OL AEROBIC ISOL TISS FRED 17922 LUCY AYALA SLIDE 2 [facility] SAMPS INC INC SKN/HR/NL S FNGI/ECTO PARASIT CULTURE 88136 LUCY AYALA BACTERIAL 2 [facility] ANY INC INC SOURCE ANAEROBIC ISO&ID CULTURE 77988 LUCY AYALA TUBERCLE/ 2 [facility] OTH INC INC [place] [address] [place] GUIDANCE 2 MEDICAL EMY NEEDLE IMAGING PLACEMENT ASS GLUCOSE 78377 LUCY AYALA BODY 2 [facility] FLUID INC INC OTHER THAN BLOOD IRON 47957 LUCY AYALA BINDING 2 [facility] CAPACITY INC INC LACTATE 39309 LUCY AYALA DEHYDROGE 2 [facility] NASE LDH INC INC SMR PRIM 53255 LUCY AYALA SRC 2 [facility] GRAM/GIEM INC INC SA STAIN BCT FUNGI/VAHID L BLOOD 03663 LUCY AYALA GASES ANY 2 [facility] INC INC COMBINATI ON PH PCO2 PO2 CO2 HCO3 NONINVASI 07911 LUCY AYALA VE 2 [facility] EAR/PULSE INC INC OXIMETRY SINGLE DETER 3D 96558 [place] RENDERING 2 MEDICAL EMY IMAGING W/INTERP& ASS POSTPROC DIFF WORK STATION CT THORAX 04831 [facility]/O 2 MEDICAL EMY CONTRAST IMAGING MATERIAL ASS ECG 45629 LUCY AYALA ROUTINE 2 [facility] ECG INC INC W/LEAST 12 LDS TRCG ONLY W/O I&R SPUTUM 91216 LUCY AYALA OBTAINING 2 [facility] SPEC INC INC AEROSOL INDUCED TX SPX ECG 37659 [place] BEVER[facility] ROUTINE 2 JENNA JENNA ECG W/LEAST 12 LDS I&R ONLY PRTBLE E0431 MILDRED MILDRED GASEOUS 2 HOME HOME O2 SYS MEDICAL MEDICAL RENT; EQUIPME EQUIPME FLWMTR HUMIDFR&M ASK PRTBLE E0431 MILDRED MILDRED GASEOUS 2 HOME HOME O2 SYS MEDICAL MEDICAL RENT; EQUIPME EQUIPME FLWMTR HUMIDFR&M ASK SPMTRY 06613 MARIS POLLOCK W/VC 2 JAM JAM EXPIRATOR Y ALFREDO W/WO MXML VOL VNTJ PRTBLE E0431 MILDRED MILDRED GASEOUS 2 HOME HOME O2 SYS MEDICAL MEDICAL RENT; EQUIPME EQUIPME FLWMTR HUMIDFR&M ASK PRTBLE E0431 MILDRED BARBERRELL GASEOUS 2 HOME HOME O2 SYS MEDICAL MEDICAL RENT; EQUIPME EQUIPME FLWMTR HUMIDFR&M ASK RADIOLOGI 94317 ERIKA JAMES C EXAM 2 DON DON CHEST 2 VIEWS FRONTAL&L ATERAL CT THORAX 79287 [facility] [place] 2 MEDICAL EMY W/CONTRAS IMAGING T ASS MATERIAL BLOOD 65591 COMBINED COMBINED COUNT 2 PHYSICIAN PHYSICIAN COMPLETE S LA S LA AUTO&AUTO DIFRNTL WBC LIPID 60375 COMBINED COMBINED PANEL 2 [place] [address] COMBINED COMBINED PROSTATE 2 PHYSICIAN PHYSICIAN SPECIFIC S LA S LA ANTIGEN TOTAL COMPREHEN 28148 COMBINED COMBINED SIVE 2 PHYSICIAN PHYSICIAN METABOLIC S LA S LA PANEL PRTBLE E0431 MILDRED LEVY GASEOUS 2 HOME HOME O2 SYS MEDICAL MEDICAL RENT; EQUIPME EQUIPME FLWMTR HUMIDFR&M ASK O2 CONC 1 E1390 MILDRED LEVY [place] 2 HOME HOME 85%/>02 MEDICAL MEDICAL CONC AT EQUIPME EQUIPME PRSC FLW RATE O2 CONC 1 E1390 MILDRED [place] 1 HOME HOME 85%/>02 MEDICAL MEDICAL CONC AT E[facility] PRTB[facility] E0431 MILDRED LEVY GASEOUS 1 HOME HOME O2 SYS MEDICAL MEDICAL RENT; EQUIPME EQUIPME FLWMTR HUMIDFR&M ASK PRTBLE E0431 MILDRED LEVY GASEOUS 1 HOME HOME O2 SYS MEDICAL MEDICAL RENT; EQUIPME EQUIPME FLWMTR HUMIDFR&M ASK O2 CONC 1 E1390 MILDRED [place] 1 HOME HOME 85%/>02 MEDICAL MEDICAL CONC AT EQUIPME EQUIPME [facility] FLW RATE O2 CONC 1 E1390 MILDRED [place] 1 HOME HOME 85%/>02 MEDICAL MEDICAL CONC AT EQUIPME EQUIPME [facility] FLW RATE PRTBLE E0431 MILDRED LEVY GASEOUS 1 HOME HOME O2 SYS MEDICAL MEDICAL RENT; EQUIPME EQUIPME FLWMTR HUMIDFR&M ASK PRTBLE E0431 MILDRED LEVY GASEOUS 1 HOME HOME O2 SYS MEDICAL MEDICAL RENT; EQUIPME EQUIPME FLWMTR HUMIDFR&M ASK O2 CONC 1 E1390 MILDRED [place] 1 HOME HOME 85%/>02 MEDICAL MEDICAL CONC AT EQUIPME EQUIPME [facility] FLW RATE O2 CONC 1 E1390 MILDRED VARMA 1 HOME MED HOME MED 85%/>02 EQUIP. L EQUIP. L CONC AT [facility] FLW RATE PRTBLE E0431 MILDRED LEVY GASEOUS 1 HOME MED HOME MED O2 SYS EQUIP. L EQUIP. L RENT; FLWMTR HUMIDFR&M ASK PRTBLE E0431 MILDRED LEVY GASEOUS 1 HOME MED HOME MED O2 SYS EQUIP. L EQUIP. L RENT; FLWMTR HUMIDFR&M ASK O2 CONC 1 E1390 [place] 1 HOME MED HOME MED 85%/>02 EQUIP. L EQUIP. L CONC AT [facility] FLW RATE O2 CONC 1 E1390 [place] 1 HOME MED HOME MED 85%/>02 EQUIP. L EQUIP. L CONC AT [facility] FLW RATE PRTBLE E0431 MILDRED LEVY GASEOUS 1 HOME MED HOME MED O2 SYS EQUIP. L EQUIP. L RENT; [facility] HUMIDFR&M ASK PRTBLE E0431 MILDRED BARBERRELL GASEOUS 1 HOME MED HOME MED O2 SYS EQUIP. L EQUIP. L RENT; [facility] HUMIDFR&M ASK O2 CONC 1 E1390 MILDRED [place] 1 HOME MED HOME MED 85%/>02 EQUIP. L EQUIP. L CONC AT [facility] FLW RATE O2 CONC 1 E1390 [place]ED [place] 1 HOME MED HOME MED 85%/>02 EQUIP. L EQUIP. L CONC AT [facility] FLW RATE PRTBLE E0431 MILDRED LEVY GASEOUS 1 HOME MED HOME MED O2 SYS EQUIP. L EQUIP. L RENT; [facility] HUMIDFR&M ASK PRTBLE E0431 MILDRED LEVY GASEOUS 0 HOME MED HOME MED O2 SYS EQUIP. L EQUIP. L RENT; [facility] HUMIDFR&M ASK O2 CONC 1 E1390 MILDRED [place] 0 HOME MED HOME MED 85%/>02 EQUIP. L EQUIP. L CONC AT [facility] FLW RATE O2 CONC 1 E1390 MIL[place]ED [place] 0 HOME MED HOME MED 85%/>02 EQUIP. L EQUIP. L CONC AT [facility] FLW RATE PRTBLE E0431 MILDRED LEVY GASEOUS 0 HOME MED HOME MED O2 SYS EQUIP. L EQUIP. L RENT; [facility] HUMIDFR&M ASK PRTBLE E0431 MILDRED LEVY GASEOUS 0 HOME MED HOME MED O2 SYS EQUIP. L EQUIP. L RENT; [facility] HUMIDFR&M ASK O2 CONC 1 E1390 MILDERD LEVY [place] 0 HOME MED HOME MED 85%/>02 EQUIP. L EQUIP. L CONC AT [facility] FLW RATE O2 CONC 1 E1390 MILDRED [place] 0 HOME MED HOME MED 85%/>02 EQUIP. L EQUIP. L CONC AT [facility] FLW RATE PRTBLE E0431 MILDRED MILDRED GASEOUS 0 HOME MED HOME MED O2 SYS EQUIP. L EQUIP. L RENT; FLWMTR HUMIDFR&M ASK CELL 86206 [facility] COUNT 0 Y Y MISC BODY [facility] FLUIDS W/DIFFERE NTIAL COUNT BRONCHOSC 97622 [place] KUM[place] OPY 0 MEDICAL MARIAN W/TRANSBR SERV ONCHIAL FOUNDATIO LUNG BX 1 LOBE BRONCHOSC 08647 [place] [facility] OP[place] 0 MEDICAL MARIAN NEEDLE BX SERV TRACHEA FOUNDATIO MAIN STEM&/BRO N CYTP FINE 66003 [facility] NDL 0 Y Y ASPIRATE [facility] IMMT CYTOHIST STD DX 1ST CYTP EVAL 05690 [facility] 0 Y Y NEEDLE [facility] ASPIRATE INTERP & REPORT CONCENTRA 64704 [facility] TION 0 Y Y INFECTIOU [facility] S AGENTS VIRUS 09553 [facility] TISS CUL 0 Y Y INOCULATI [facility] ON CYTOPATHI C EFFECT IADNA NOS 46778 [facility] 0 Y Y AMPLIFIED [facility] [place] [address] [place] [facility] SURG [facility] Y[facility] SERV FOUNDATIO GROSS&JESS ROSCOPIC EXAM INJECTION J2250 [facility] UNIVERSIT 0 Y Y [place] [facility] HCL PER 1 MG SMR PRIM 56579 [facility] SRC 0 Y Y GRAM/GIEM [facility] SA STAIN BCT FUNGI/VAHID L VIRUS 67785 [facility] CENTRIFUG 0 Y Y E ENHNCD [facility] ID IMFLUOR STAIN EA CULTURE 31369 [facility] FNGI 0 Y Y MOLD/YEAS [facility] T PRSMPTV OTH XCPT BLOOD SPECIAL 72418 [place] [facility] STAIN 0 MEDICAL BRILL YOL GROUP 1 SERV MICROORGA FOUNDATIO NISMS I&R CULTURE 53380 [facility] FUNGI 0 Y Y DEFINITIV [facility] E ID EACH ORGANISM YEAST INJECTION J3010 [facility] FENTANYL 0 Y Y CITRATE [facility] 0.1 MG BRNCHSC 00716 [facility] W/BRNCL 0 Y Y ALVEOLAR [facility] [place] RADIOLOGI 71474 [facility] C 0 Y Y EXAMINATI [facility] ON CHEST SINGLE VIEW FRONTAL CULTURE 39640 [facility] TUBERCLE/ 0 [facility]-FAST BACILLI ANY ISOL SMR PRIM 02435 [facility] SRC 0 Y Y FLUORESCE [facility] NT&/AFS BCT FNGI PARASIT TISS FRED 40465 [facility] SLIDE 0 Y Y [facility] SKN/HR/NL S FNGI/ECTO PARASIT IAADI 73868 [facility] PNEUMOCUS 0 Y Y TIS [facility] CARINII CUL BACT 08912 [facility] XCPT 0 Y Y URINE [facility] BLOOD/STO OL AEROBIC ISOL O2 CONC 1 E1390 [facility] LEVY DEL PORT 0 HOME MED HOME MED 85%/>02 EQUIP. L EQUIP. L CONC AT [facility] FLW RATE PRTBLE E0431 [facility] BARBERRELL GASEOUS 0 HOME MED HOME MED O2 SYS EQUIP. L EQUIP. L RENT; FLWMTR HUMIDFR&M ASK PHLEBOTOM 03630 COMBINED COMBINED Y 0 PHYSICIAN PHYSICIAN THERAPEUT S LA S LA IC SEPARATE PROCEDURE RADEX 57698 [facility] ESOPHAGUS 0 [facility] INC INC DUP-SCAN 04288 [facility] XTR VEINS 0 [facility] COMPLETE INC INC BILATERAL STUDY BLOOD 60584 [facility] COUNT 0 [facility] COMPLETE INC INC AUTO&AUTO DIFRNTL WBC COMPREHEN 43204 [facility] SIVE 0 [facility] METABOLIC INC INC PANEL COLLECTIO 76469 [facility] N VENOUS 0 [facility] BLOOD INC INC VENIPUNCT URE PULMONARY 63471 [place] POLLOCK STRESS 0 MEDICAL JAM TESTING SERV SIMPLE FOUNDATIO BRNCDILAT 53622 [facility] RSPSE 0 [facility] SPMTRY INC INC PRE&POST- BRNCDILAT ADMN COLLECTIO 18480 COMBINED COMBINED N VENOUS 0 PHYSICIAN PHYSICIAN BLOOD S LAB S LAB VENIPUNCT URE COMPREHEN 14050 COMBINED COMBINED SIVE 0 PHYSICIAN PHYSICIAN METABOLIC S LAB S LAB PANEL CT THORAX 07848 [facility] W/O 0 [facility] CONTRAST INC INC MATERIAL 3D 10859 [facility] RENDERING 0 [facility] INC W/INTERP& POSTPROC DIFF WORK STATION RADIOLOGI 69306 [place] FRANCES[place] EXAM 0 MEDICAL EMY CHEST 2 IMAGING VIEWS ASS FRONTAL&L ATERAL O2 CONC 1 E1390 [facility] [place] DEL [place] 0 HOME MED HOME MED 85%/>02 EQUIP. EQUIP. CONC AT [facility] FLW RATE PRTBLE E0431 [facility] MILDRED GASEOUS 0 HOME MED HOME MED O2 SYS EQUIP. EQUIP. RENT; [facility] FLWMTR HUMIDFR&M ASK PRTBLE E0431 [facility]ED GASEOUS 0 HOME MED HOME MED O2 SYS EQUIP. EQUIP. RENT; [facility] FLWMTR HUMIDFR&M ASK ECG 22354 ERIKA JAMES, ROUTINE 0 DON R DON R ECG W/LEAST 12 LDS W/I&R O2 CONC 1 E1390 [place] [place] DEL PORT 0 HOME MED HOME MED 85%/>02 EQUIP. EQUIP. CONC AT [facility] FLW RATE RADIOLOGI 24049 ERIKA JAMES C EXAM 0 DON R DON R CHEST 2 VIEWS FRONTAL&L ATERAL INJECTION J1940 ERIKA JAMES, 0 DON R DON R FUROSEMID E UP TO 20 MG RADIOLOGI 23639 ERIKA JAMES C 0 DON R DON R EXAMINATI ON CHEST [facility] [place] [address] ERIKA JAMES, DISCHARGE 0 DON R DON R DAY MANAGEMEN T 30 MIN/< SBSQ 08633 ERIKA JAMES, [facility] 0 DON R DON R CARE/DAY 25 MINUTES RADIOLOGI [id number] [place] Kristy VILLEGAS EXAM 0 MEDICAL JANE P CHEST 2 IMAGING VIEWS ASSOCIATE FRONTAL&L S ATERAL SBSQ 98517 [facility] 0 DON R DON R CARE/DAY [address] [facility] 0 DON R DON R CARE/[facility] [address] 0 DON R DON R CARE/DAY [address] THORAX [address] [place] FRANCESCA, 0 MEDICAL SHASHI W/CONTRAS IMAGING T ASSOCIATE MATERIAL S 3D 90695 [place] FRANCESCA, RENDERING 0 MEDICAL SHASHI IMAGING W/INTERP& ASSOCIATE POSTPROC S DIFF WORK STATION [facility] [address] [facility] 0 DON R DON R CARE/DAY 25 MINUTES RADIOLOGI 04122 [place] FRANCESCA, C EXAM 0 MEDICAL SHASHI CHEST 2 IMAGING VIEWS ASSOCIATE FRONTAL&L S ATERAL RADIOLOGI 28006 [facility] 0 DON R DON R EXAMINATI ON CHEST SINGLE VIEW FRONTAL INITIAL [address]2629 [facility] 0 DON R DON R CARE/DAY 50 MINUTES [facility] 07708 [facility] 9 DONTE A DONTE A XM&EVAL COMPRHNSV ESTAB PT 1/ OPHTH 55011 [facility] NINI, [facility] 9 VITREOUS CALLIE W XM&EVAL ASSOCIATE INTERMEDI S O ATE ESTAB PT SCANNING 02235 [facility] NINI, [facility] 9 VITREOUS CALLIE W C IMAGING ASSOCIATE S O POSTERIOR SGM UNI INJECTION J1040 ERIKA JAMES, Adán DON R DON R METHYLPRE DNISOLONE ACETATE 80 MG SCANNING 48331 [facility] N[facility]I, [facility] 8 VITREOUS CALLIE W C IMAGING ASSOCIATE S O POSTERIOR SGM UNI OPHTH 63798 [facility] NINI, MEDICAL 8 VITREOUS CALLIE W XM&EVAL ASSOCIATE INTERMEDI S O ATE ESTAB PT INJECTION J1040 ERIKA JAMES, Adán DON R DON R METHYLPRE DNISOLONE ACETATE 80 MG OPHTH 63672 RUIZ, RUIZ, MEDICAL 8 DONTE A DONTE A XM&EVAL COMPRHNSV ESTAB PT 1/ SCANNING 60402 [facility]I, [facility]PH[facility] 8 VITREOUS CALLIE W C IMAGING ASSOCIATE S O POSTERIOR SGM UNI OPHTH 90529 [facility], MEDICAL 8 VITREOUS CALLIE W XM&EVAL ASSOCIATE INTERMEDI S O ATE ESTAB PT INJECTION J1040 ERIKA JAMES 8 DON R DON R METHYLPRE DNISOLONE ACETATE 80 MG RADIOLOGI 41298 ERIKA JAMES C EXAM 8 DON R DON R CHEST 2 VIEWS FRONTAL&L ATERAL OPHTH 69259 [facility] & MEDICAL 8 VITREOUS VITREOUS XM&EVAL ASSOCIATE ASSOCIATE INTERMEDI S O S O ATE ESTAB PT SCANNING 37780 [facility] & OPHTHALMI 8 VITREOUS VITREOUS C IMAGING ASSOCIATE ASSOCIATE S O S O POSTERIOR SGM UNI SCANNING 65866 [facility] & OPHTHALMI 8 VITREOUS VITREOUS C IMAGING ASSOCIATE ASSOCIATE S O S O POSTERIOR SGM UNI OPHTH 05268 [facility] & MEDICAL 8 VITREOUS VITREOUS XM&EVAL ASSOCIATE ASSOCIATE INTERMEDI S O S O ATE ESTAB PT INJECTION J1100 ERIKA JAMES 8 DON R DON R DEXAMETHO SONE SODIUM PHOSPHATE 1 MG Encounters Encounter Start End Date Code Location Performer Type Date OFFICE [id number] [facility] OUTPATIEN 7 7 PHYSICIAN T VISIT S GROUP 25 MINUTES OFFICE 25203 [facility] OUTPATIEN 7 7 PHYSICIAN T VISIT S GROUP 40 MINUTES OFFICE 25177 Darnell ROY OUTPATIRYLEE 7 7 PILAR PLEITEZ T VISIT [facility] 15 MINUTES OFFICE 58508 ELIDA BLADIMIR OUTPATIEN 7 7 Y OF CK T VISIT [place] 25 HOSPI MINUTES OFFICE 67475 Darnell ROY OUTGINO 7 7 PILAR PLEITEZ T VISIT [facility] 15 MINUTES HOSPITAL LUCY - 7 7 [facility] INPATIENT INC OFFICE 84884 A Kristy ROY OUTPATIEN 7 7 PILAR PLEITEZ T VISIT P[facility] 15 MINUTES OFFICE 79894 A Kristy ROY OUTPATIEN 7 7 PILAR PLEITEZ T VISIT PSC 15 MINUTES OFFICE 90141 A Kristy ROY OUTPATIEN 7 7 PILAR PLEITEZ T VISIT PSC 15 MINUTES OFFICE 28974 [place] MARIS OUTPATIEN 6 6 MEDICAL JAM T VISIT SERV 25 FOUNDATIO MINUTES HOSPITAL LUCY - 6 6 [facility] OUTPATIEN INC T OFFICE 05503 [facility] ALLRAN JR OUTPATIEN 6 6 PHYSICIAN RITA T VISIT S GROUP 10 MINUTES HOSPITAL LUCY - 6 6 [facility] OUTPATIEN INC T OFFICE 98778 LUCY EVAN OUTPATIEN 6 6 [facility] VISIT HOSPITAL 10 P MINUTES OFFICE 31976 A C KIRILL OUTPATIEN 6 6 PILAR PLEITEZ T VISIT PSC 15 MINUTES OFFICE 72203 ELIO POLLOCK OUTPATIEN 6 6 MEDICAL JAM T VISIT SERV 15 FOUNDATIO MINUTES N OFFICE 13426 LUCY EVAN OUTPATIEN 6 6 [facility] 20 HOSPITAL MINUTES P OFFICE 81861 [facility] JR OUTPATIEN 6 6 PHYSICIAN RITA T VISIT S GROUP 15 MINUTES HOSPITAL LUCY - 6 6 [facility] OUTPATIEN INC T OFFICE 41171 [facility] ALL[facility] JR OUTPATIEN 6 6 PHYSICIAN RITA T NEW 45 S GROUP MINUTES HOSPITAL LUCY - 6 6 [facility] OUTPATIEN INC T OFFICE 45792 ELIO POLLOCK OUTPATIEN 6 6 MEDICAL JAM T VISIT SERV 25 FOUNDATIO MINUTES N OFFICE 75277 A C KIRILL OUTPATIEN 6 6 PILAR PLEITEZ T VISIT PSC 15 MINUTES OFFICE 71262 [place] MARIS OUTPATIEN 6 6 MEDICAL JAM T VISIT SERV 25 FOUNDATIO MINUTES HOSPITAL LUCY - 6 6 [facility] OUTPATIEN INC EMERGENCY 09930 [facility] 6 6 Y OF MADALYN VISIT [facility] HOSPI SEVERITY& THREAT [facility] OFFICE 91344 A Kristy ROY JENNA OUTPATIEN 6 6 PILAR PLEITEZ T VISIT PSC 15 MINUTES OFFICE 20979 A Kristy ROY JENNA OUTPATIEN 6 6 PILAR PLEITEZ T VISIT PSC 15 MINUTES OFFICE 67874 [place] POLLOCK OUTPATIEN 6 6 MEDICAL JAM T VISIT SERV 40 FOUNDATIO MINUTES [facility] LUCY - 6 6 [facility] INPATIENT [facility] LUCY - 6 6 [facility] OUTPATIEN [facility] OFFICE 66989 [place] POLOLCK OUTPATIEN 6 6 MEDICAL T VISIT SERV 25 FOUNDATIO MINUTES OFFICE 69334 [place] POLLOCK OUTPATIEN 6 6 MEDICAL JAM T VISIT SERV 15 FOUNDATIO MINUTES [facility] LUCY - 5 5 [facility] OUTPATIEN INC [facility] LUCY - 5 5 [facility] OUTPATIEN [facility] HOSPITAL LUCY [facility] 5 5 [facility] OUTPATIEN [facility] OFFICE 14447 A C FIELD AMB OUTPATIEN 5 5 PILAR PLEITEZ T VISIT PSC 15 MINUTES OFFICE 26152 A C FIELD AMB OUTPATIEN 4 4 PILAR PLEITEZ T VISIT PSC 15 MINUTES HOSPITAL LUCY - 4 4 [facility] OUTPATIEN [facility] LUCY - 4 4 [facility] OUTPATIEN [facility] LUCY - 4 4 [facility] OUTPATIEN INC [facility] LUCY [facility] 4 4 [facility]PATIEN [facility] HOSPITAL LUCY - 4 4 [facility] OUTPATIEN INC [facility] LUCY [facility] 4 4 [facility] OUTPATIEN INC [facility] LUCY - 4 4 [facility] OUTPATIEN INC OFFICE 67696 FIELD AMB FIELD AMB OUTPATIEN 4 4 T VISIT 15 MINUTES OFFICE 64933 FIELD AMB FIELD AMB OUTPATIEN 3 3 T VISIT 15 MINUTES OFFICE 03011 A C FIELD AMB OUTPATIEN 3 3 PILAR PLETIEZ T NEW 30 PSC MINUTES OFFICE 76234 JAMES JAMES OUTPATIEN 3 3 DON DON T VISIT 15 MINUTES HOSPITAL LUCY - 3 3 [facility] OUTPATIEN [facility] T OFFICE 36719 JAMES JAMES OUTPATIEN 3 3 DON DON T VISIT 15 MINUTES HOSPITAL LUCY - 2 2 [facility] OUTPATIEN [facility] OFFICE 27052 JAMES JAMES OUTPATIEN 2 2 DON DON T VISIT 15 MINUTES HOSPITAL LUCY - 2 2 [facility] OUTPATIEN [facility] HOSPITAL LUCY - 2 2 [facility]PATIEN [facility] LUCY - 2 2 [facility]IEN [facility] HOSPITAL LUCY - 2 2 [facility] OUTPATIEN [facility] T OFFICE 11938 JAMES JAMES OUTPATIEN 2 2 DON DON T VISIT 15 MINUTES OFFICE 53359 JAMES JAMES OUTPATIEN 1 1 DON DON T VISIT 15 MINUTES OFFICE 43785 JAMES JAMES OUTPATIEN 1 1 DON DON T VISIT 15 MINUTES OFFICE 35112 ERIKA JAMES OUTPATIEN 1 1 DON DON T VISIT 15 MINUTES OFFICE 58439 ERIKA JAMES OUTPATIEN 1 1 DON DON T VISIT 15 MINUTES [facility]OSP[facility] LUCY - 0 0 [facility] LUCY - 0 0 [facility] LUCY - 0 0 [facility] OUTPATIEN [facility] OFFICE 29948 CHINYERE JAMESHENS, OUTPATIEN 0 0 DON R DON R T VISIT 15 MINUTES OFFICE 73505 JAMES, JAMES, OUTPATIEN 0 0 DON R DON R T VISIT 25 MINUTES OFFICE 14788 JAMES, JAMES, OUTPATIEN 0 0 DON R DON R T VISIT 15 MINUTES OFFICE 19598 JAMES, JAMES, OUTPATIEN 8 8 DON R DON R T VISIT 15 MINUTES OFFICE 36155 ERIKA JAMES, OUTPATIEN 8 8 DON R DON R T VISIT 15 MINUTES OFFICE 41123 JAMES, JAMES, OUTPATIEN 8 8 DON R DON R T VISIT 15 MINUTES OFFICE 55077 ERIKA JAMES, OUTPATIEN 8 8 DON R DON R T VISIT 15 MINUTES OFFICE 82664 ERIKA JAMES, OUTPATIEN 8 8 DON R DON R T VISIT 15 MINUTES
--- OUTSIDE RECORDS SUMMARY | 2016-11-15 14:10 | External Medical Summary Rpt ---
Author Author , RANDALL PEREIRA Address Unknown Phone [email or web address] Care Team Providers Care Contract Driver Name Role Phone A Kristy QUEZADA MD PSC, Darnell Unavailable Unavailable Kristy QUEZADA MD PSC [facility], [facility]CARE Unavailable Unavailable [facility], [facility] Unavailable Unavailable SLO SUN KAYODE, Unavailable Unavailable SOL SUN KAYODE ALLRAN JR RITA, ALLRAN Unavailable Unavailable JR RITA AYOOB AND, AYOOB AND Unavailable Unavailable BEINEKE, BEINEKE Unavailable Unavailable TANYA AND, TANYA Unavailable Unavailable AND BESSON JENNA, BESSON Unavailable Unavailable JENNA WALLACE JAMILAH, Unavailable Unavailable WALLACE JAMILAH WALLACE JAMILAH, Unavailable Unavailable WALLACE JAMILAH FONTANEZ ALL, FONTANEZ ALL Unavailable Unavailable ROBBINS JESS, ROBBINS Unavailable Unavailable JESS [facility] Unavailable Unavailable SERVICE, [facility] Unavailable Unavailable SERVICE, [facility] Unavailable Unavailable [place], [...] TAYLOR KEYANA, TAYLOR Unavailable Unavailable KEYANA [facility] Unavailable Unavailable INC, [facility] Unavailable Unavailable HOSPITAL P, [facility] P DONTE RUIZ, Unavailable Unavailable DONTE RUIZ [facility], Unavailable Unavailable [facility] ARMENDARIZ JENNA, ARMENDARIZ JENNA Unavailable [...] [facility] [place] Unavailable Unavailable INTERNAL MED, [facility] JAMES CON, JAMES CON [...] PHARM #[id number] [facility] Unavailable Unavailable [id number] # [id number], [facility] [id number] # [id number] SHANELL CAR, Unavailable Unavailable SHANELL [...] Unavailable MADALYN OTTO SUSAN, OTTO Unavailable Unavailable [facility], Unavailable Unavailable [facility] Unavailable [facility], [facility] HIEU FRANCO, HIEU Unavailable Unavailable [facility], Unavailable [facility]available [facility], Unavailable Unavailable [facility] MARINA NIXON, Unavailable Unavailable MARINA NIXON Purpose Continuity of Care Document - 04-25-2007 through 2016 Problems Code Diagnosis DOS Provider Status E785 HYPERLIPIDE 10-04-2016 [facility] UNSPECIFIED GROUP I119 HYPERTENSIV 10-04-2016 [place] E HEART [facility] DISEASE GROUP WITHOUT HEART FAILURE I2510 [facility] [place] 10-04-2016 [place] 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 J449 CHRONIC 10-04-2016 [place] OBSTRUCTIVE [facility] PULMONARY GROUP DISEASE UNS R0600 DYSPNEA 10-04-2016 [place] UNSPECIFIED [facility]ICIANS GROUP R0602 SHORTNESS 09-14-2016 [place] OF BREATH MEDICAL IMAGING ASS R918 OTHER 09-14-2016 [place] NONSPECIFIC MEDICAL ABNORMAL IMAGING ASS FINDING OF LUNG FIELD 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 09-11-2016 [facility] T [facility]Y [facility] LLC J410 SIMPLE 09-04-2016 A Kristy QUEZADA CHRONIC PSC BRONCHITIS R938 ABNORMAL 09-04-2016 [place] FIND ON DX [facility] IMAGING OTH GROUP SPEC BODY STRCT I200 UNSTABLE 08-27-2016 [place] ANGINA [facility] GROUP I10 ESSENTIAL 08-25-2016 [facility] P N L27027 [facility] [place] 08-25-2016 [facility] P ANGINA PECTORIS I272 OTHER 08-25-2016 [facility] P HYPERTENSIO N R079 CHEST PAIN 08-25-2016 [place] UNSPECIFIED MEDICAL [...] PSC CONGESTIVE HEART FAILURE C9110 CHRONIC 01-11-2016 [place] [facility] 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 R634 ABNORMAL 01-11-2016 [facility] WEIGHT LOSS [facility] INC R1110 VOMITING 01-09-2016 [place] UNSPECIFIED [facility]ICIANS GROUP K828 OTHER 01-02-2016 [place] SPECIFIED MEDICAL DISEASES OF IMAGING ASS GALLBLADDER R630 ANOREXIA 01-02-2016 [place] [facility] K921 MELENA 11-07-2015 [facility] K5710 DIVERTICULO 11-03-2015 [place] SIS SM MEDICAL INTEST W/O IMAGING ASS PERF/ABSC W/O BLEED R195 OTHER FECAL 11-03-2015 [place] MEDICAL ABNORMALITI IMAGING ASS ES E21098 LYMPHOCYTOS 10-26-2015 [facility] IS PATHOLOGY SYMPTOMATIC LAB NETW J690 PNEUMONITIS 10-26-2015 [place] [facility] DUE TO SERV INHALATION [facility]OUNDATION OF FOOD AND VOMIT Z09 ENC F/U 10-20-2015 A Kristy QUEZADA EXAM AFTR PSC CMPL TX OTH THAN MALIG NEOPLSM B370 CANDIDAL 10-19-2015 [place] [facility] STOMATITIS SERV [facility] R112 NAUSEA WITH 10-19-2015 [place] [facility] VOMITING SERV UNSPECIFIED FOUNDATION I509 HEART 10-15-2015 [facility] FAILURE HOME UNSPECIFIED MEDICAL EQUIPME R531 WEAKNESS 09-20-2015 [facility] 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 [place] [facility] R BLOCK SERV [facility] R9431 ABNORMAL 09-18-2015 [place] [facility] ELECTROCARD SERV IOGRAM FOUNDATION I4510 UNSPECIFIED 09-15-2015 [facility] RIGHT SERV BUNDLE-BRAN FOUNDATION CH BLOCK R001 BRADYCARDIA 09-15-2015 [facility] SERV UNSPECIFIED FOUNDATION B965 PSEUDOMONAS 09-14-2015 [facility] CAUSE OF SERV DZ FOUNDATION CLASSIFIED ELSEWHERE J9600 ACUTE 09-14-2015 [facility] RESPIRATORY SERV FAIL UNS FOUNDATION HYPOXIA/HYP ERCAPNIA J9811 ATELECTASIS 09-14-2015 [facility] R61784 ENCOUNTER 09-14-2015 [facility] SURG SERV [facility] FLW SURG DIGESTIVE SYS Z049 ENCOUNTER 09-13-2015 [facility] EXAMINATION SERV &OBSERVATIO FOUNDATION N FOR UNS REASON K5900 CONSTIPATIO 09-12-2015 [facility] N SERV UNSPECIFIED FOUNDATION R140 ABDOMINAL 09-10-2015 [facility] DISTENSION SERV GASEOUS FOUNDATION R0989 OTH SPEC SX 09-09-2015 [facility] & SIGNS SERV INVLV THE FOUNDATION CIRC & RESP SYS A419 SEPSIS 09-08-2015 [facility] UNSPECIFIED SERV ORGANISM FOUNDATION E873 ALKALOSIS 09-08-2015 [place] [facility] E876 HYPOKALEMIA 09-08-2015 [facility] J90 PLEURAL 09-08-2015 [facility] EFFUSION SERV NOT FOUNDATION ELSEWHERE CLASSIFIED J9620 ACUTE 09-08-2015 [facility] CHRONIC SERV RESP FAIL FOUNDATION UNS HYPOXIA/HYP ERCAPNIA J984 OTHER 09-08-2015 [place] [facility] DISORDERS SERV OF LUNG FOUNDATION R109 UNSPECIFIED 09-08-2015 [place] [facility] ABDOMINAL SERV PAIN FOUNDATION Z4682 ENCOUNTER 09-08-2015 [facility] ADJUST HOSPI NON-VASCULA R CATHETER 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-07-2015 [place] [facility] DISORDER SERV UNSPECIFIED FOUNDATION I517 CARDIOMEGAL 09-07-2015 [facility] Y SERV [facility] I5189 OTHER 09-07-2015 [facility] ILL-DEFINED SERV HEART FOUNDATION DISEASES R0902 HYPOXEMIA 09-06-2015 [facility] R0689 OTHER 09-02-2015 [facility] ABNORMALITI SERV ES OF FOUNDATION BREATHING J942 HEMOTHORAX 08-30-2015 [facility] J948 OTHER 08-30-2015 [facility] SPECIFIED SERV PLEURAL FOUNDATION CONDITIONS L538 OTHER 08-30-2015 [place] [facility] SPECIFIED SERV ERYTHEMATOU FOUNDATION S CONDITIONS Z9889 OTHER 08-30-2015 [place] [facility] SPECIFIED SERV POSTPROCEDU FOUNDATION RAL STATES 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 K4030 UNILAT 08-25-2015 [facility] NGUYEN W/OBST HOSPI W/O GANGRN NOT RECUR K4040 UNILAT 08-25-2015 [facility] INGUINAL SERV NGUYEN FOUNDATION W/GANGREN NOT SPEC RECUR Z7901 SENIOR LIVING 08-25-2015 [place] [facility] CURRENT USE SERV OF FOUNDATION ANTICOAGULA NTS T65688 ELEVATED 08-24-2015 [facility] BLOOD [facility] P UNSPECIFIED K4090 UNILAT 08-24-2015 [place] [facility] INGUINAL SERV NGUYEN W/O FOUNDATION OBST/GANGRE N NOT RECUR K5660 UNSPECIFIED 08-24-2015 [facility] INTESTINAL AMBULANCE SERVICE OBSTRUCTION R1031 RIGHT LOWER 08-24-2015 [facility] PAIN HOSPI 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-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 [facility] 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 J439 EMPHYSEMA 08-03-2015 [place] UNSPECIFIED [facility] INTERNAL MED R002 PALPITATION 08-03-2015 [place] [facility] S SERV [facility] R031 NONSPECIFIC 08-03-2015 [facility] LOW SERV BLOOD-PRESS FOUNDATION URE READING R42 DIZZINESS 08-03-2015 [facility] AND SERV GIDDINESS FOUNDATION 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 MED J189 PNEUMONIA 07-13-2015 [facility] UNSPECIFIED [facility] HOS[facility] ORGANISM INC Z7722 CONTACT W/ 07-13-2015 [place] [facility] & SUSPECTED SERV EXPOS [facility] ENVIR TOBACCO SMOKE J40 BRONCHITIS 03-25-2015 [place] NOT MEDICAL SPECIFIED IMAGING ASS ACUTE OR CHRONIC J929 PLEURAL 02-02-2015 [place] [facility] MEDICAL WITHOUT IMAGING ASS ASBESTOS R091 PLEURISY 01-21-2015 [place] [facility] 4280 CONGESTIVE 01-14-2015 [facility] HEART HOME FAILURE MEDICAL UNSPECIFIED EQUIPME 47666 OBSTRUCTIVE 01-14-2015 [facility] WITHOUT EXACERBAT 496 CHRONIC 01-14-[address] [facility] HOME OBSTRUCTION MEDICAL NEC EQUIPME 32489 NUCLEAR 12-28-2014 [facility] SCLEROSIS JAMILAH 41323 OBST 09-06-2014 A Kristy QUEZADA CHRONIC PSC BRONCHITIS W/ACUTE BRONCHITIS 67887 LOSS OF 09-06-2014 A Kristy QUEZADA WEIGHT PSC 38328 OTHER CHEST 09-06-2014 A Kristy QUEZADA PAIN PSC 55858 OBSTRUCTIVE 09-05-2014 [facility] SLEEP 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 MEDICAL EQUIPME 7242 LUMBAGO 04-01-2014 A Kristy QUEZADA MD PSC V0382 NEED PROPH 04-01-2014 A Kristy QUEZADA VACCINATION PSC AGAINST STREP PNEUMONE 06812 ATRIAL 01-13-2014 [facility] FIBRILLATIO [facility] N INC 35057 REFLUX 01-13-2014 [facility] ESOPHAGITIS [facility] INC 32809 UNS 01-13-2014 [facility] GASTRITIS&G [facility] ASTRODUODIT INC IS W/O MENTION HEMORR 52657 ABDOMINAL 01-13-2014 [facility] PAIN, MEM [facility] GENERALIZED INC V5869 LONG-TERM 01-13-2014 [facility] (CURRENT) [facility] USE OF INC OTHER MEDICATIONS 28179 CHEST PAIN 11-24-2013 [facility] UNSPECIFIED [facility] INC 5110 PLEURISY 10-29-2013 [place] WITHOUT MEDICAL MENTION IMAGING ASS EFFUS/CURRE NT TB 7862 COUGH 10-29-2013 [place] [facility] 93864 INSOMNIA 12-16-2012 A Kristy QUEZADA UNSPECIFIED PSC 19314 OTHER 12-16-2012 A Kristy QUEZADA MALAISE AND PSC FATIGUE 89524 FEVER 05-23-2012 J[facility] UNSPECIFIED DON 72241 WHEEZING 05-23-2012 JAMES DON 1120 CANDIDIASIS 05-21-2012 J[facility] OF MOUTH DON 34992 OTHER 05-21-2012 FRANCESCA DISEASES OF EMY LUNG NOT ELSEWHERE CLASSIFIED 4940 BRONCHIECTA 01-28-2012 [place] SIS WITHOUT MEDICAL ACUTE IMAGING ASS EXACERBATIO N 5119 UNSPECIFIED 01-28-2012 [place] PLEURAL MEDICAL EFFUSION IMAGING ASS 96316 OTHER 01-28-2012 [facility] NONSPECIFIC [facility] ABNORMAL INC FINDING OF LUNG FIELD 01647 OSTEOARTHRO 01-02-2012 JAMES S INVLV MX [place] [address] OBSTRUCTIVE 11-12-2011 [facility] CHRONIC [facility] BRONCHITIS INC WITH EXACERBATIO N 30591 ESOPHAGEAL 11-12-2011 [facility] REFLUX [facility] INC 2859 UNSPECIFIED 10-05-2011 [facility] ANEMIA [facility] INC 5180 PULMONARY 10-05-2011 [place] COLLAPSE MEDICAL IMAGING ASS 486 PNEUMONIA, 09-28-2011 [place] ORGANISM MEDICAL UNSPECIFIED IMAGING ASS 5070 PNEUMONITIS 09-28-2011 [place] DUE TO JAM INHALATION OF FOOD OR VOMITUS 50909 SHORTNESS 09-28-2011 [facility] OF BREATH [facility] INC 58160 ABDOMINAL 09-28-2011 [facility] PAIN, MEM [facility] EPIGASTRIC INC V1261 PERSONAL 09-28-2011 [place] HISTORY JAM PNEUMONIA RECURRENT 93260 PNEUMONIA 06-08-2011 JAMES DUE TO DON OTHER SPECIFIED BACTERIA 2724 OTHER AND 05-11-2011 [facility] UNSPECIFIED PHYSICIANS [place] HYPERLIPIDE [place] 2768 HYPOPOTASSE 05-11-2011 [facility] [place] [facility] [place] 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 6019 UNSPECIFIED 05-11-2011 [place] [address] PAIN IN 05-11-2011 COMBINED JOINT, PHYSICIANS MULTIPLE [place] SITES 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 5183 PULMONARY 11-28-2009 [facility] A 57191 ACUTE 11-28-2009 [place] [facility] RESPIRATORY SERV FAILURE FOUNDATIO 7856 ENLARGEMENT 11-28-2009 [facility] NODES 7931 NONSPEC 11-28-2009 [place] [facility]ICAL FIND RAD SERV OTH EXAM FOUNDATIO BODY STRUCT LUNG FIELD V1582 PERS HX 11-28-2009 [facility] PRESENTING [facility] V7282 PRE-OPERATI 11-28-2009 [place] [facility] VE SERV RESPIRATORY FOUNDATIO EXAMINATION 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 75457 DYSPHAGIA 11-18-2009 [place] UNSPECIFIED MEDICAL IMAGING ASS 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, 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 43006 OSTEOARTHRO 08-23-2009 ERIKA, SIS UNSPEC DON R WHETHER GEN/LOC LOWER LEG 47692 OSTEOARTHRO 08-23-2009 ERIKA, S UNSPEC DON R GEN/LOC OTH SPEC SITES 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 MACULAR 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 RUIZ A N OF RETINA UNSPECIFIED 81186 NONEXUDATIV 07-20-2008 [facility] & 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 64151 EXUDATIVE 07-20-2008 [place] & SENILE [facility]RE[facility] MAC[facility] ASS[facility] DEGENERATIO O N OF RETINA 63383 CRYSTALLINE 07-20-2008 [place] & DEPOSITS VITREOUS IN VITREOUS ASSOCIATES O 4610 ACUTE 02-27-2008 ERIKA, MAXILLARY DON R SINUSITIS 4659 ACUTE URIS 02-27-2008 ERIKA, OF DON R UNSPECIFIED SITE 8472 LUMBAR 11-14-2007 JAMES, SPRAIN AND DON R STRAIN 4660 ACUTE 08-02-2007 ERIKA, BRONCHITIS DON R 4871 INFLUENZA 07-04-2007 ERIKA, WITH OTHER DON R RESPIRATORY MANIFESTATI ONS 47095 PAIN IN 04-25-2007 ERIKA, JOINT, DON R SHOULDER REGION 17193 UNSPECIFIED 04-25-2007 ERIKA, SYNOVITIS DON R AND [...] Procedure DOS Code Location Performer Comment ECG 68628 [place] [facility] ROUTINE 7 PHYSICIAN ECG S GROUP W/LEAST 12 LDS I&R ONLY CT THORAX 79905 [facility] 7 MEDICAL W/CONTRAS IMAGING T ASS MATERIAL ADMN SET A7003 YOUR YOUR SM VOL 7 PHARMACY PHARMACY [facility] PNEUMAT NEBULIZR DISPBL ALBUTEROL J7620 YOUR YOUR TO 2.5 7 PHARMACY PHARMACY [facility] [facility] IPRATROPI UM BROM TO 0.5 MG ALBUTEROL J7620 A C A C TO 2.5 7 PILAR QUEZADA MD MG & PSC PSC IPRATROPI UM BROM TO 0.5 MG ECG 03468 [facility] ROUTINE 7 PHYSICIAN ECG S GROUP W/LEAST 12 LDS I&R ONLY R & L HRT 99563 [facility] CATH 7 PHYSICIAN WINJX HRT S GROUP ART& L VENTR IMG RADIOLOGI 82061 [facility] C 7 MEDICAL EXAMINATI IMAGING ON CHEST ASS SINGLE VIEW FRONTAL ECG 64360 [facility] ELIZABETH ROUTINE 7 [facility] W/LEAST P 12 LDS I&R ONLY ALBUTEROL J7620 YOUR YOUR TO 2.5 7 PHARMACY PHARMACY [facility] [facility] IPRATROPI UM BROM TO 0.5 MG ADMN SET A7003 YOUR YOUR SM VOL 7 PHARMACY PHARMACY [employer] PNEUMAT NEBULIZR DISPBL O2 CONC 1 E1390 [facility] PORT 7 HOME HOME 85%/>02 MEDICAL MEDICAL CONC AT EQUIPME EQUIPME PRSC FLW RATE O2 CONC 1 E1390 [facility]EV[facility] 7 HOME HOME 85%/>02 MEDICAL MEDICAL CONC AT EQUIPME EQUIPME PRSC FLW RATE SBSQ 50112 [facility] 7 MEDICAL CARE/DAY SERV 25 FOUNDATIO MINUTES N RADIOLOGI 85076 [facility] C EXAM 7 MEDICAL MEDICAL CHEST 2 IMAGING IMAGING VIEWS ASS ASS FRONTAL&L ATERAL O2 CONC 1 E1390 [facility] LEVY [place] 7 HOME HOME 85%/>02 MEDICAL MEDICAL CONC AT EQUIPME EQUIPME PRSC FLW RATE O2 CONC 1 E1390 [facility] PORT 6 HOME HOME 85%/>02 MEDICAL MEDICAL CONC AT EQUIPME EQUIPME PRSC FLW RATE O2 CONC 1 E1390 [facility]TEJINDER [facility] [place] 6 HOME HOME 85%/>02 [facility] ADMN SET A7003 YOUR YOUR SM VOL 6 PHARMACY PHARMACY [employer] [facility] LLC PNEUMAT NEBULIZR DISPBL ALBUTEROL J7620 YOUR YOUR TO 2.5 6 PHARMACY PHARMACY [facility] LLC IPRATROPI UM BROM TO 0.5 MG PHRM Q0513 YOUR YOUR DISPENSIN 6 PHARMACY PHARMACY [facility] INHALATIO N RX; PER 30 DAYS O2 CONC 1 E1390 [facility] LUIS [facility] 6 HOME HOME 85%/>02 MEDICAL MEDICAL CONC AT [facility] FLW RATE HOSPITAL G0463 [facility] AYALA OUTPATIEN 6 [facility] T CLIN INC INC VISIT ASSESS & MGMT PT O2 CONC 1 E1390 [facility] 6 HOME HOME 85%/>02 MEDICAL MEDICAL CONC AT [facility] FLW RATE BLOOD 20472 [facility] AYALA COUNT 6 MEM H[facility] COMPLETE INC INC AUTO&[place] [address] [facility] AYALA ABDOMEN 6 MEM HOS[facility] W/CONTRAS INC INC T MATERIAL COMPREHEN 96395 [facility] AYALA SIVE 6 MEM HOSP [facility] METABOLIC INC INC PANEL COLLECTIO 92599 [facility] AYALA N VENOUS 6 MEM HOS[facility]OS[facility] BLOOD INC INC VENIPUNCT URE LOCM Q9967 L[facility] AYALA 300-399 6 MEM HOSP [facility] MG/ML INC INC IODINE CONCENTRA TION PER ML ANES 44402 [facility] UPPER GI 6 ANESTH PALMA ENDOSCOPY OF THE PROXIMAL BLUE TO DUODENUM O2 CONC 1 E1390 [facility] 6 HOME HOME 85%/>02 MEDICAL MEDICAL CONC AT [facility] FLW RATE O2 CONC 1 E1390 [facility] 6 HOME MAR 85%/>02 MEDICAL CONC AT [facility] FLW RATE RADEX 72881 [facility] A[facility]AL[facility] UPPER GI 6 MEM H[facility] W/WO INC INC GLUCAGON/ DELAY IMAGES W/KUB RADEX 76584 [place] FONTANEZ ALL UPPER GI 6 MEDICAL W/WO IMAGING GLUCAGON/ ASS DELAY IMGES W/O KUB COLLECTIO 50183 [facility] A[facility]AL[facility] N VENOUS 6 [facility] H[facility] BLOOD INC INC VENIPUNCT URE FLOW 87808 [facility] A[facility] CYTOMETRY 6 [facility] CELL INC INC SURF MARKER TECHL ONLY EA FLOW 32315 MOLECULAR MOLECULAR CYTOMETRY 6 INTERPJ PATHOLOGY PATHOLOGY 2-8 LAB NETW LAB NETW MARKERS FLOW 94484 [facility] A[facility]ALA CYTOMETRY 6 MEM HOSP MEM [...] FOLDING 6 WHEELED ADJUSTABL E/FIXED HEIGHT ECG 45431 [place] [facility]AGE CHI ROUTINE 6 MEDICAL ECG SERV W/LEAST FOUNDATIO 12 LDS N I&R ONLY ECG 49886 [place] PELAEZ ROUTINE 6 MEDICAL NAN ECG SERV W/LEAST FOUNDATIO 12 LDS N I&R ONLY SBSQ 90215 [facility] 6 MEDICAL KEYANA CARE/DAY SERV 25 FOUNDATIO MINUTES N RADIOLOGI 43221 [place] JAMES CON C 6 MEDICAL EXAMINATI SERV ON CHEST FOUNDATIO SINGLE N VIEW FRONTAL RADIOLOGI 56663 [place] WILLIEK C 6 MEDICAL AYA MAR EXAMINATI SERV ON CHEST FOUNDATIO SINGLE N VIEW FRONTAL SBSQ 76010 [facility] 6 MEDICAL KEYANA CARE/DAY SERV 15 FOUNDATIO MINUTES N SBSQ 73465 [facility] 6 MEDICAL KEYANA CARE/DAY SERV 15 FOUNDATIO MINUTES N RADIOLOGI 08290 [place] ASTORIA JENNA C 6 MEDICAL EXAMINATI SERV ON CHEST FOUNDATIO SINGLE N VIEW FRONTAL RADIOLOGI 58771 [place] MADERA LEATHA C 6 MEDICAL EXAMINATI SERV ON CHEST FOUNDATIO SINGLE N VIEW FRONTAL SBSQ 30527 [facility] 6 MEDICAL CARE/DAY SERV 25 FOUNDATIO MINUTES N SBSQ 42134 [facility] 6 MEDICAL CARE/DAY SERV 25 FOUNDATIO MINUTES N ECG 76536 [facility] ROUTINE 6 MEDICAL ECG SERV W/LEAST FOUNDATIO 12 LDS N I&R ONLY RADEX 29169 [place] OTTO ABDOMEN 1 6 MEDICAL SUSAN SERV ANTEROPOS FOUNDATIO TERIOR N VIEW RADIOLOGI 58277 [place] MAHMOOD LEATHA C 6 MEDICAL EXAMINATI SERV ON CHEST FOUNDATIO SINGLE N VIEW FRONTAL RADIOLOGI 43998 [place] JAMES CON C 6 MEDICAL EXAMINATI SERV ON CHEST FOUNDATIO SINGLE N VIEW FRONTAL RADEX 64609 [facility] ABD[facility]EN 1 6 Y OF CAR [place] ANTEROPOS HOSPI TERIOR VIEW CRITICAL 18349 [facility] 6 MEDICAL ILL/INJUR SERV ED FOUNDATIO PATIENT N INIT 30-74 MIN ECG 12105 [facility] ROUTINE 6 MEDICAL ECG SERV W/LEAST FOUNDATIO 12 LDS N I&R ONLY SBSQ 87144 [place] [facility] 6 MEDICAL CARE/DAY SERV 25 FOUNDATIO MINUTES N RADEX 77972 [facility] ABDOMEN 1 6 Y OF [place] ANTEROPOS HOSPI TERIOR VIEW RADIOLOGI 06302 [place] ZAGUROVSK C 6 MEDICAL AYA MAR EXAMINATI SERV ON CHEST FOUNDATIO SINGLE N VIEW FRONTAL CT THORAX 90868 [place] JAMES CON 6 MEDICAL W/[place] [address] [place] REYEZ CLEO ABDOMEN & 6 MEDICAL PELVIS SERV W/CONTRAS FOUNDATIO T N MATERIAL RADIOLOGI 66235 [place] JAMES CON C 6 MEDICAL EXAMINATI SERV ON CHEST FOUNDATIO SINGLE N VIEW FRONTAL RADEX ABD 25500 [place] PAULA COMPL 6 MEDICAL JURGEN AQT ABD SERV ANNEL W/S/E/D FOUNDATIO VIEWS 1 N VIEW CH INITIAL 33886 [place] [facility] 6 MEDICAL SUN KAYODE CARE/DAY SERV 30 FOUNDATIO MINUTES N SBSQ 78998 [facility] 6 MEDICAL AND CARE/DAY SERV 25 FOUNDATIO MINUTES N ECG 34441 [place] [facility] ROUTINE 6 MEDICAL ECG SERV W/LEAST FOUNDATIO 12 LDS N I&R ONLY ECHO 46571 [place] [facility] R-T 6 MEDICAL ERKIA 2D SERV W/WOM-MOD FOUNDATIO E COMPL N SPEC&COLR D SBSQ 33021 [place] [address] MEDICAL AND CARE/DAY SERV 25 FOUNDATIO MINUTES N RADIOLOGI 03910 [place] JAMES CON C 6 MEDICAL EXAMINATI SERV ON CHEST FOUNDATIO SINGLE N VIEW FRONTAL RADIOLOGI 30163 [place] [facility]AMES CON C 6 MEDICAL EXAMINATI SERV ON CHEST FOUNDATIO SINGLE N VIEW FRONTAL ECG 46928 [facility] ROUTINE 6 MEDICAL ECG SERV W/LEAST FOUNDATIO 12 LDS N I&R ONLY RADIOLOGI 36272 [place] ZAGUROVSK C 6 MEDICAL AYA MAR EXAMINATI SERV ON CHEST FOUNDATIO SINGLE N VIEW FRONTAL RADIOLOGI 15088 [place] ROBBINS C 6 MEDICAL JESS EXAMINATI SERV ON CHEST FOUNDATIO SINGLE N VIEW FRONTAL RADEX 64032 [place] ZAGUROVSK ABDOMEN 1 6 MEDICAL AYA MAR SERV ANTEROPOS FOUNDATIO TERIOR N VIEW RADIOLOGI 10964 [place] ZAGUROVSK C 6 MEDICAL AYA MAR EXAMINATI SERV ON CHEST FOUNDATIO SINGLE N VIEW FRONTAL CT THORAX 73309 [place] ARMENDARIZ JENNA 6 MEDICAL W/[place] [address] [place] AYOOB AND ABDOMEN & 6 MEDICAL PELVIS SERV W/CONTRAS FOUNDATIO T N MATERIAL RADEX 30585 [place] VALORIE NEEL ABDOMEN 1 6 MEDICAL SERV ANTEROPOS FOUNDATIO TERIOR N VIEW SBSQ 60870 [facility] 6 MEDICAL AND CARE/DAY SERV 25 FOUNDATIO MINUTES N SBSQ 39061 [place] [address] MEDICAL AND CARE/DAY SERV 25 FOUNDATIO MINUTES N RADIOLOGI 54205 [place] DELL CAR C 6 MEDICAL EXAMINATI SERV ON CHEST FOUNDATIO SINGLE N VIEW FRONTAL RADIOLOGI 22973 [place] JAMES CON C 6 MEDICAL EXAMINATI SERV ON CHEST FOUNDATIO SINGLE N VIEW FRONTAL ECG 75922 [place] PELAEZ ROUTINE 6 MEDICAL NAN ECG SERV W/LEAST FOUNDATIO 12 LDS N I&R ONLY SBSQ 44798 [facility] 6 MEDICAL RONNY CARE/DAY SERV [place] [address] [place] HIEU SURG 6 MEDICAL FRANCO PATHOLOGY SERV FOUNDATIO GROSS&JESS N ROSCOPIC EXAM LEVEL III 69250 [place]IE[place] SURG 6 MEDICAL FRANCO PATHOLOGY SERV FOUNDATIO GROSS&JESS N ROSCOPIC EXAM ANESTHESI 47316 [facility] BET A HERNIA 6 Y OF REPAIR [place] [facility] ABDOM[facility] NOS RPR 1ST 10517 [facility] IN[facility] 6 MEDICAL RONNY HRNA AGE SERV 5 YRS/> FOUNDATIO INCARCERA N KISHOR ECG 24523 [place] HUI MIKHAIL ROUTINE 6 MEDICAL ECG SERV W/LEAST FOUNDATIO 12 LDS N I&R ONLY ARTL 09311 [facility] CATHJ/CAN 6 Y OF Y OF NULJ [facility] MNTR[facility] [place] [address] L[facility] AYAL[facility] INFUSION 6 [facility] THERAPY/P INC INC ROPHYLAXI S /DX 1ST TO 1 HR INITIAL 07863 [facility] 6 MEDICAL CHR CARE/DAY SERV 50 FOUNDATIO MINUTES N GROUND A0425 [facility] AM[facility]ULANCE PER SERVICE SERVICE STATUTE MILE AMBULANCE A0429 [facility] SERVICE 6 AMBULANCE AMBULANCE BLS SERVICE SERVICE EMERGENCY TRANSPORT THER 68082 [facility] PROPH/DX 6 [facility] NJX EA INC INC SEQL IV PUSH SBST/DRUG FAC RADIOLOGI 45574 [place] ALL C 6 MEDICAL EXAMINATI IMAGING ON CHEST ASS SINGLE VIEW FRONTAL BLOOD 35182 [facility] COUNT 6 [facility] COMPLETE INC INC AUTO&[place] [address] [facility] A[facility] TROPONIN 6 [facility] QUANTITAT INC INC ARCENIO CREATINE 77751 [facility] KINASE 6 [facility] [place] [address] [facility] LIPASE 6 [facility] INC INC ECG 64657 [facility] ROUTINE 6 [facility] ECG INC INC W/LEAST 12 LDS TRCG ONLY W/O I&[place] [address] [facility] ALL ABDOMEN & 6 MEDICAL PELVIS IMAGING W/O ASS CONTRAST MATERIAL INJECTION J2405 [facility] LUCY 6 [facility] ONDANSETR INC INC ON HCL PER 1 MG INJ J2543 [facility] A[facility] PIPERACIL 6 [facility] [employer] INC INC SOD/TAZOB ACTAM SOD 1 G/0.125 G COMPREHEN 91802 LUCY AYALA SIVE 6 [facility] METABOLIC INC INC PANEL ECG 86880 LUCY BEVERLY ROUTINE 6 [facility] W/LEAST P 12 LDS [place] [address] LUCY AYALA AMYLASE 6 [facility] INC INC CREATINE 40954 LUCY AYALA KINASE MB 6 [facility] FRACTION INC INC ONLY COLLECTIO 69438 A Kristy ROY JENNA N VENOUS 6 PILAR PLEITEZ BLOOD PSC VENIPUNCT URE BLOOD 22610 A Kristy ROY JENNA COUNT 6 PILAR [place]LEITE[place] COMPLETE PSC AUTO&AUTO DIFRNTL WBC NEBULIZER E0570 MILDRED LEVY WITH 6 HOME HOME COMPRESSO MEDICAL MEDICAL R EQUIPME EQUIPME INITIAL 64169 [facility] 6 [facility] CARE/DAY INTERNAL 70 MED MINUTES ECG 78982 LUCY BEVERLY ROUTINE 6 [facility] W/LEAST P 12 LDS I&R ONLY NEBULIZER E0570 MILDRED MILDRED WITH 6 HOME HOME COMPRESSO MEDICAL MEDICAL R EQUIPME EQUIPME COMPREHEN 26318 LUCY AYALA SIVE 6 [facility] METABOLIC INC INC PANEL COLLECTIO 77566 LUCY AYALA N VENOUS 6 [facility] BLOOD INC INC VENIPUNCT URE ALBUTEROL J7620 YOUR YOUR TO 2.5 6 PHARMACY PHARMACY Team[employer] IPRATROPI UM BROM TO 0.5 MG ADMN SET A7003 YOUR YOUR SM VOL 6 PHARMACY PHARMACY NONFILTR Fredio PNEUMAT NEBULIZR DISPBL BLOOD 18587 LUCY AYALA COUNT 6 [facility] COMPLETE INC INC AUTO&AUTO DIFRNTL WBC RADIOLOGI 15746 LUCY AYALA C EXAM 6 [facility] CHEST 2 INC INC VIEWS FRONTAL&L ATERAL PHRM Q0513 YOUR YOUR DISPENSIN 6 PHARMACY PHARMACY [employer] INHALATIO N RX; PER 30 DAYS NEBULIZER E0570 MILDRED LEVY WITH 6 HOME HOME COMPRESSO MEDICAL MEDICAL R EQUIPME EQUIPME NEBULIZER E0570 MILDRED LEVY WITH 6 HOME HOME COMPRESSO MEDICAL MEDICAL R EQUIPME EQUIPME ALBUTEROL J7620 YOUR YOUR TO 2.5 5 PHARMACY PHARMACY Team[employer] IPRATROPI UM BROM TO 0.5 MG PHRM Q0513 YOUR YOUR DISPENSIN 5 PHARMACY PHARMACY [employer] INHALATIO N RX; PER 30 DAYS RADIOLOGI 91672 LUCY AYALA C EXAM 5 [facility] CHEST 2 INC INC VIEWS FRONTAL&L ATERAL CT THORAX 92737 [facility] ALL 5 MEDICAL W/CONTRAS IMAGING T ASS MATERIAL RADIOLOGI 17117 LUCY AYALA C EXAM 5 [facility] CHEST 2 INC INC VIEWS FRONTAL&L ATERAL ALBUTEROL J7620 YOUR YOUR TO 2.5 5 PHARMACY PHARMACY [employer] IPRATROPI UM BROM TO 0.5 MG NEBULIZER E0570 MILDRED LEVY WITH 5 HOME HOME COMPRESSO MEDICAL MEDICAL R EQUIPME EQUIPME PHARM G0333 YOUR YOUR DISPEN 5 PHARMACY PHARMACY [employer] RX; INITIAL 30-DAY SUPPLY CATARACT 24472 WALLACE GONSALEZ REMOVAL 5 JAMILAH JAMILAH INSERTION [...] EQUIPME EQUIPME ARWAY PRESS DEVICE EA POLYSOM 10725 NEERAJ KERN MAR 6/>YRS 4 SLEEP 4/> NEUROSCIE ADDL NCES CENT AMA ATTND POLYSOM 09200 LUCY AYALA 6/>YRS 4 [facility] SLEEP 4/> INC INC ADDL AMA ATTND IMC/IMC G0461 LUCY AYALA PER 4 [facility] SPECIMEN; INC INC 1ST SNGL/[place] [address] LUCY AYALA SURG 4 [facility] PATHOLOGY INC INC GROSS&[place] [address] LUCY AYALA INFUSION 4 [facility] THERAPY INC INC PROPHYLAX IS/DX EA HOUR SPCL STN 72957 LUCY AYALA 2 I&R 4 [facility] EXCPT INC INC MICROORG/ ENZYME/IM CYT SPECIAL 73974 LUCY AYALA STAIN 4 [facility] GROUP 1 INC INC MICROORGA NISMS [place] [address] LUCY AYALA INFUSION 4 [facility] THERAPY/P INC INC ROPHYLAXI S /DX 1ST TO 1 HR SPMTRY 24575 LUCY AYALA W/VC 4 [facility] EXPIRATOR INC INC Y ALFREDO W/WO MXML VOL VNTJ ECHO 51111 LUCY AYALA TTHRC R-T 4 [facility] 2D INC INC W/WOM-MOD E COMPL SPEC&COLR D CV STRS 39442 GLENN ELIZABETH JR TST 4 DWI DWI XERS&/OR RX CONT ECG I&R ONLY CV STRS 52579 KEITH MORENO TST 4 XERS&/OR RX CONT ECG W/O I&R MYOCARDIA 70427 TEX Parra 4 MEDICAL EMY PERFUSION IMAGING PLANAR ASS MULTIPLE STUDIES MYOCARDIA 05381 LUCY AYALA L SPECT 4 [facility] MULTIPLE INC INC STUDIES RADIOLOGI 16172 LUCY Wagner EXAM 4 [facility] MEM [...] SONE ACETATE & PHOSPHATE 3 MG RADIOLOGI 52632 LUCY AYALA C EXAM 3 [facility] CHEST 2 INC INC VIEWS FRONTAL&L ATERAL INJECTION J0690 JAMES JMAES 3 DON DON CEFAZOLIN SODIUM 500 MG PRTBLE E0431 MILDRED MILDRED GASEOUS 3 HOME HOME O2 SYS MEDICAL MEDICAL RENT; EQUIPME EQUIPME FLWMTR HUMIDFR&M ASK PRTBLE E0431 MILDRED MILDRED GASEOUS 2 HOME HOME O2 SYS MEDICAL MEDICAL RENT; EQUIPME EQUIPME FLWMTR HUMIDFR&M ASK PRTBLE E0431 MILDRED MILDRED GASEOUS 2 HOME HOME O2 SYS MEDICAL MEDICAL RENT; EQUIPME EQUIPME FLWMTR HUMIDFR&M ASK 3D 86602 LUCY AYALA RENDERING 2 [facility] INC INC W/INTERP& POSTPROC DIFF WORK STATION CT THORAX 47058 LUCYJOAN BOBON W/O 2 [facility] CONTRAST INC INC MATERIAL PRTBLE E0431 MILDRED MILDRED GASEOUS 2 HOME HOME O2 SYS MEDICAL MEDICAL RENT; EQUIPME EQUIPME FLWMTR HUMIDFR&M ASK TOBACCO 04477 JAMES JAMES USE 2 DON DON CESSATION INTERMEDI ATE 3-10 MINUTES PRTBLE E0431 MILDRED MILDRED GASEOUS 2 HOME HOME O2 SYS MEDICAL MEDICAL RENT; EQUIPME EQUIPME FLWMTR HUMIDFR&M ASK PRTBLE E0431 MILDRED MILDRED GASEOUS 2 HOME HOME O2 SYS MEDICAL MEDICAL RENT; EQUIPME EQUIPME FLWMTR HUMIDFR&M ASK SPMTRY 83088 LUCY AYALA W/VC 2 [facility] EXPIRATOR INC INC Y ALFREDO W/WO MXML VOL VNTJ RADIOLOGI 27407 [place] FRANCES[place] C EXAM 2 MEDICAL EMY CHEST 2 IMAGING VIEWS ASS FRONTAL&L ATERAL PRTBLE E0431 MILDRED MILDRED GASEOUS 2 HOME HOME O2 SYS MEDICAL MEDICAL RENT; EQUIPME EQUIPME FLWMTR HUMIDFR&M ASK COLLECTIO 34387 LUCY AYALA N VENOUS 2 [facility] [place]LO[place] [address] LUCY AYALA IRON 2 [facility] INC INC CELL 93041 LUCY AYALA COUNT 2 [facility] MISC BODY INC INC FLUIDS W/DIFFERE NTIAL COUNT CARBOXYHE 88838 LUCY AYALA MOGLOBIN 2 [facility] QUANTITAT INC INC ARCENIO CYANOCOBA 11210 LUCY AYALA BETTIE 2 [facility] VITAMIN INC INC B-12 THORACENT 26547 [facility] ESIS 2 MEDICAL EMY PUNCTURE IMAGING PLEURAL ASS CAVITY ASPIRATIO N CYTP 98541 PATHOLOGY PATHOLOGY SLCTV 2 & & CELL CYTOLOGY CYTOLOGY ENHANCEME LAB LAB NT INTERPJ XCPT C/V RADIOLOGI 55147 JOSE LMUSCOGEEJanet MA C EXAM 2 MEDICAL EMY CHEST 2 IMAGING VIEWS ASS FRONTAL&L ATERAL CT THORAX 28625 [place] FRANC[place] W/O 2 MEDICAL EMY CONTRAST IMAGING MATERIAL ASS PROTEIN 39466 LUCY AYALA XCPT 2 [facility] REFRACTOM INC INC ETRY SERUM PLASMA/WH L BLD CUL BACT 94792 LUCY AYALA XCPT 2 [facility] URINE INC INC BLOOD/STO OL AEROBIC ISOL TISS FRED 42046 LUCY AYALA SLIDE 2 [facility] SAMPS INC INC SKN/HR/NL S FNGI/ECTO PARASIT CULTURE 17786 LUCY AYALA BACTERIAL 2 [facility] ANY INC INC SOURCE ANAEROBIC ISO&ID CULTURE 08376 LUCY AYALA TUBERCLE/ 2 [facility] OTH INC INC [place] [address] [place] FRANCESCA GUIDANCE 2 MEDICAL EMY NEEDLE IMAGING PLACEMENT ASS GLUCOSE 71878 LUCY AYALA BODY 2 [facility] FLUID INC INC OTHER THAN BLOOD IRON 03501 LUCY AYALA BINDING 2 [facility] CAPACITY INC INC LACTATE 96113 LUCY AYALA DEHYDROGE 2 [facility] NASE LDH INC INC SMR PRIM 85978 LUCY AYALA SRC 2 [facility] GRAM/GIEM INC INC SA STAIN BCT FUNGI/VAHID L BLOOD 16904 LUCY AYALA GASES ANY 2 [facility] INC INC COMBINATI ON PH PCO2 PO2 CO2 HCO3 NONINVASI 09270 LUCY AYALA VE 2 [facility] EAR/PULSE INC INC OXIMETRY SINGLE DETER 3D 31259 [place] FRANCESCA RENDERING 2 MEDICAL EMY IMAGING W/INTERP& ASS POSTPROC DIFF WORK STATION CT THORAX 79678 [facility] 2 MEDICAL EMY CONTRAST IMAGING MATERIAL ASS ECG 52371 LUCY AYALA ROUTINE 2 [facility] ECG INC INC W/LEAST 12 LDS TRCG ONLY W/O I&R SPUTUM 88176 LUCY AYALA OBTAINING 2 [facility] SPEC INC INC AEROSOL INDUCED TX SPX ECG 70173 RUSH BEVERLY ROUTINE 2 JENNA JENNA ECG W/LEAST 12 LDS I&R ONLY PRTBLE E0431 MILDRED MILDRED GASEOUS 2 HOME HOME O2 SYS MEDICAL MEDICAL RENT; EQUIPME EQUIPME FLWMTR HUMIDFR&M ASK PRTBLE E0431 MILDRED MILDRED GASEOUS 2 HOME HOME O2 SYS MEDICAL MEDICAL RENT; EQUIPME EQUIPME FLWMTR HUMIDFR&M ASK SPMTRY 40830 MARIS POLLOCK W/VC 2 JAM JAM EXPIRATOR Y ALFREDO W/WO MXML VOL VNTJ PRTBLE E0431 MILDRED MILDRED GASEOUS 2 HOME HOME O2 SYS MEDICAL MEDICAL RENT; EQUIPME EQUIPME FLWMTR HUMIDFR&M ASK PRTBLE E0431 MILDRED BARBERRELL GASEOUS 2 HOME HOME O2 SYS MEDICAL MEDICAL RENT; EQUIPME EQUIPME FLWMTR HUMIDFR&M ASK RADIOLOGI 30915 ERIKA JAMES C EXAM 2 DON DON CHEST 2 VIEWS FRONTAL&L ATERAL CT THORAX 65793 [facility] 2 MEDICAL EMY W/CONTRAS IMAGING T ASS MATERIAL BLOOD 19852 COMBINED COMBINED COUNT 2 PHYSICIAN PHYSICIAN COMPLETE S LA S LA AUTO&AUTO DIFRNTL WBC LIPID 20951 COMBINED COMBINED PANEL 2 [place] [address] COMBINED COMBINED PROSTATE 2 PHYSICIAN PHYSICIAN SPECIFIC S LA S LA ANTIGEN TOTAL COMPREHEN 22544 COMBINED COMBINED SIVE 2 PHYSICIAN PHYSICIAN METABOLIC [...] 85%/>02 MEDICAL MEDICAL CONC AT [facility] PRTB[facility] E0431 MILDRED LEVY GASEOUS 1 HOME HOME O2 SYS MEDICAL MEDICAL RENT; EQUIPME EQUIPME FLWMTR HUMIDFR&M ASK PRTBLE E0431 MILDRED LEVY GASEOUS 1 HOME HOME O2 SYS MEDICAL MEDICAL RENT; EQUIPME EQUIPME FLWMTR HUMIDFR&M ASK O2 CONC 1 E1390 [place] 1 HOME HOME 85%/>02 MEDICAL MEDICAL CONC AT EQUIPME EQUIPME [facility] FLW RATE O2 CONC 1 E1390 MILDRED [place] 1 HOME HOME 85%/>02 MEDICAL MEDICAL CONC AT EQUIPME EQUIPME [facility] FLW RATE PRTBLE E0431 MILDRED LEVY GASEOUS 1 HOME HOME O2 SYS MEDICAL MEDICAL RENT; EQUIPME EQUIPME FLWMTR HUMIDFR&M ASK PRTBLE E0431 MILDRED LEVY GASEOUS 1 HOME HOME O2 SYS MEDICAL MEDICAL RENT; EQUIPME EQUIPME FLWMTR HUMIDFR&M ASK O2 CONC 1 E1390 MILDR[place] 1 HOME HOME 85%/>02 MEDICAL MEDICAL CONC AT EQUIPME EQUIPME [facility] FLW RATE O2 CONC 1 E1390 MILDRED VARMA 1 HOME MED HOME MED 85%/>02 EQUIP. L EQUIP. L CONC AT [facility] FLW RATE PRTBLE E0431 MILDRED LEVY GASEOUS 1 HOME MED HOME MED O2 SYS EQUIP. L EQUIP. L RENT; FLWMTR HUMIDFR&M ASK PRTBLE E0431 MILDRED LEVY GASEOUS 1 HOME MED HOME MED O2 SYS EQUIP. L EQUIP. L RENT; FLWMTR HUMIDFR&M ASK O2 CONC 1 E1390 [place] 1 HOME MED HOME MED 85%/>02 EQUIP. L EQUIP. L CONC AT [facility] FLW RATE O2 CONC 1 E1390 MILDRED [place] 1 HOME MED HOME MED 85%/>02 EQUIP. L EQUIP. L CONC AT [facility] FLW RATE PRTBLE E0431 MILDRED LEVY GASEOUS 1 HOME MED HOME MED O2 SYS EQUIP. L EQUIP. L RENT; [facility] HUMIDFR&M ASK PRTBLE E0431 MILDRED BARBERRELL GASEOUS 1 HOME MED HOME MED O2 SYS EQUIP. L EQUIP. L RENT; [facility] HUMIDFR&M ASK O2 CONC 1 E1390 MILDRED [place] 1 HOME MED HOME MED 85%/>02 EQUIP. L EQUIP. L CONC AT [facility] FLW RATE O2 CONC 1 E1390 MILDRED [place] 1 HOME MED HOME MED 85%/>02 EQUIP. L EQUIP. L CONC AT [facility] FLW RATE PRTBLE E0431 MILDRED LEVY GASEOUS 1 HOME MED HOME MED O2 SYS EQUIP. L EQUIP. L RENT; [facility] HUMIDFR&M ASK PRTBLE E0431 MILDRED LEVY GASEOUS 0 HOME MED HOME MED O2 SYS EQUIP. L EQUIP. L RENT; [facility] HUMIDFR&M ASK O2 CONC 1 E1390 MILDRED [place] 0 HOME MED HOME MED 85%/>02 EQUIP. L EQUIP. L CONC AT [facility] FLW RATE O2 CONC 1 E1390 MILDRED [place] 0 HOME MED HOME MED 85%/>02 EQUIP. L EQUIP. L CONC AT [facility] FLW RATE PRTBLE E0431 MILDRED LEVY GASEOUS 0 HOME MED HOME MED O2 SYS EQUIP. L EQUIP. L RENT; [facility] HUMIDFR&M ASK PRTBLE E0431 MILDRED LEVY GASEOUS 0 HOME MED HOME MED O2 SYS EQUIP. L EQUIP. L RENT; [facility] HUMIDFR&M ASK O2 CONC 1 E1390 MILDRED [place] 0 HOME MED HOME MED 85%/>02 EQUIP. L EQUIP. L CONC AT [facility] FLW RATE O2 CONC 1 E1390 MILDRED [place] 0 HOME MED HOME MED 85%/>02 EQUIP. L EQUIP. L CONC AT [facility] FLW RATE PRTBLE E0431 MILDRED MILDRED GASEOUS 0 HOME MED HOME MED O2 SYS EQUIP. L EQUIP. L RENT; FLWMTR HUMIDFR&M ASK CELL 08135 [facility] COUNT 0 Y Y MISC BODY [facility] FLUIDS W/DIFFERE NTIAL COUNT BRONCHOSC 31447 [place] KUMAR OPY 0 MEDICAL MARIAN W/TRANSBR SERV ONCHIAL FOUNDATIO LUNG BX 1 LOBE BRONCHOSC 37171 [place] KUMAR OPY 0 MEDICAL MARIAN NEEDLE BX SERV TRACHEA FOUNDATIO MAIN STEM&/BRO N CYTP FINE 28529 [facility] NDL 0 Y Y ASPIRATE [facility] IMMT CYTOHIST STD DX 1ST CYTP EVAL 50274 [facility] 0 Y Y NEEDLE [facility] ASPIRATE INTERP & REPORT CONCENTRA 83028 [facility] TION 0 Y Y INFECTIOU IRA [facility] S AGENTS VIRUS 04526 [facility] TISS CUL 0 Y Y INOCULATI [facility] ON CYTOPATHI C EFFECT IADNA NOS 03572 [facility] 0 Y Y AMPLIFIED [facility] [place] [address] [place] ALIRIO SURG 0 MEDICAL [facility] Y[facility] PATHOLOGY SERV FOUNDATIO GROSS&JESS ROSCOPIC EXAM INJECTION J2250 [facility]IVERSIT 0 Y Y MIDAZOLAM [facility] HCL PER 1 MG SMR PRIM 15934 [facility] SRC 0 Y Y GRAM/GIEM [facility] SA STAIN BCT FUNGI/VAHID L VIRUS 50431 [facility] CENTRIFUG 0 Y Y E ENHNCD [facility] ID IMFLUOR STAIN EA CULTURE 40268 [facility] FNGI 0 Y Y MOLD/YEAS [facility] T PRSMPTV OTH XCPT BLOOD SPECIAL 03733 [place] ALIRIO STAIN 0 MEDICAL BRILL YOL GROUP 1 SERV MICROORGA FOUNDATIO NISMS I&R CULTURE 37292 [facility] FUNGI 0 Y Y DEFINITIV [facility] E ID EACH ORGANISM YEAST INJECTION J3010 [facility] FENTANYL 0 Y Y CITRATE [facility] 0.1 MG BRNCHSC 05402 [facility] W/BRNCL 0 Y Y ALVEOLAR [facility] LAVAGE RADIOLOGI 42945 [facility] C 0 Y Y EXAMINATI [facility] ON CHEST SINGLE [place]IEW FRONTAL CULTURE 24271 [facility] TUBERCLE/ 0 Y [facility] ACID-FAST BACILLI ANY ISOL SMR PRIM 98004 [facility] SRC 0 Y Y FLUORESCE [facility] NT&/AFS BCT FNGI PARASIT TISS FRED 91748 [facility] SLIDE 0 Y Y [facility] SKN/HR/NL S FNGI/ECTO PARASIT IAADI 96681 [facility] PNEUMOCUS 0 Y Y TIS [facility] CARINII CUL BACT 27433 [facility] XCPT 0 Y Y URINE [facility] BLOOD/STO OL AEROBIC ISOL O2 CONC 1 E1390 MILDRED [place]Y [place] 0 HOME MED HOME MED 85%/>02 EQUIP. L EQUIP. L CONC AT [facility] FLW RATE PRTBLE E0431 MILDRED BARBERRELL GASEOUS 0 HOME MED HOME MED O2 SYS EQUIP. L EQUIP. L RENT; FLWMTR HUMIDFR&M ASK PHLEBOTOM 00772 COMBINED COMBINED Y 0 PHYSICIAN PHYSICIAN THERAPEUT S LA S LA IC SEPARATE PROCEDURE RADEX 09939 LUCY AYALA ESOPHAGUS 0 [facility] INC INC DUP-SCAN 79109 LUCY AYALA XTR VEINS 0 [facility] COMPLETE INC INC BILATERAL STUDY BLOOD 11885 LUCY AYALA COUNT 0 [facility] COMPLETE INC INC AUTO&AUTO DIFRNTL WBC COMPREHEN 03304 LUCY AYALA SIVE 0 [facility] METABOLIC INC INC PANEL COLLECTIO 42317 LUCY AYALA N VENOUS 0 [facility] BLOOD INC INC VENIPUNCT URE PULMONARY 89979 [place] POLLOCK STRESS 0 MEDICAL JAM TESTING SERV SIMPLE FOUNDATIO BRNCDILAT 51841 LUCY AYALA RSPSE 0 [facility] SPMTRY INC INC PRE&POST- BRNCDILAT ADMN COLLECTIO 95448 COMBINED COMBINED N VENOUS 0 PHYSICIAN PHYSICIAN BLOOD S LAB S LAB VENIPUNCT URE COMPREHEN 95507 COMBINED COMBINED SIVE 0 PHYSICIAN PHYSICIAN METABOLIC S LAB S LAB PANEL CT THORAX 95214 LUCY AYALA W/O 0 [facility] CONTRAST INC INC MATERIAL 3D 45738 LUCY AYALA RENDERING 0 [facility] INC INC W/INTERP& POSTPROC DIFF WORK STATION RADIOLOGI 27527 [place] FRANC[place] Wagner EXAM 0 MEDICAL EMY CHEST 2 IMAGING VIEWS ASS FRONTAL&L ATERAL O2 CONC 1 E1390 MILDRED [place] 0 HOME MED HOME MED 85%/>02 EQUIP. EQUIP. CONC AT [facility] FLW RATE PRTBLE E0431 MILDRED MILDRED GASEOUS 0 HOME MED HOME MED O2 SYS EQUIP. EQUIP. RENT; [facility] FLWMTR HUMIDFR&M ASK PRTBLE E0431 MILDRED MILDRED GASEOUS 0 HOME MED HOME MED O2 SYS EQUIP. EQUIP. RENT; [facility] FLWMTR HUMIDFR&M ASK ECG 42125 ERIKA JAMES, ROUTINE 0 DON R DON R ECG W/LEAST 12 LDS W/I&R O2 CONC 1 E1390 MILDRED MILDRED [place] PORT 0 HOME MED HOME MED 85%/>02 EQUIP. EQUIP. CONC AT [facility] FLW RATE RADIOLOGI 68999 ERIKA JAMES C EXAM 0 DON R DON R CHEST 2 VIEWS FRONTAL&L ATERAL INJECTION J1940 ERIKA JAMES, 0 DON R DON R FUROSEMID E UP TO 20 MG RADIOLOGI 26822 ERIKA JAMES C 0 DON R DON R EXAMINATI ON CHEST [facility] [facility] 56929 ERIKA JAMES, DISCHARGE 0 DON R DON R DAY MANAGEMEN T 30 MIN/< SBSQ 85833 ERIKA JAMES, [facility] 0 DON R DON R CARE/DAY 25 MINUTES RADIOLOGI 84495 [place] Kristy VILLEGAS EXAM 0 MEDICAL JANE P CHEST 2 IMAGING VIEWS ASSOCIATE FRONTAL&L S ATERAL SBSQ 51988 [facility] 0 DON R DON R CARE/DAY 25 MINUTES SBSQ 86906 [facility] 0 DON R DON R CARE/DAY 25 MINUTES [facility] 25[facility] 0 DON R DON R CARE/DAY [address] THORAX 89250 [place] FRANCESCA, 0 MEDICAL SHASHI W/CONTRAS IMAGING T ASSOCIATE MATERIAL S 3D 64860 [place] FRANC[place], RENDERING 0 MEDICAL SHASHI IMAGING W/INTERP& ASSOCIATE POSTPROC S DIFF WORK STATION [facility] 21809 [facility] 0 DON R DON R CARE/DAY 25 MINUTES RADIOLOGI 31037 [place] FRANC[place], C EXAM 0 MEDICAL SHASHI CHEST 2 IMAGING VIEWS ASSOCIATE FRONTAL&L S ATERAL RADIOLOGI 52344 [facility] 0 DON R DON R EXAMINATI ON CHEST [place] FRONTAL INITIAL 90985 [facility] 0 DON R DON R CARE/DAY 50 MINUTES OPHTH 12716 [facility] DONTE A DONTE A XM&EVAL COMPRHNSV ESTAB PT 1/ OPHTH 23637 RETINA & NINI, [facility] 9 VITREOUS CALLIE W XM&EVAL ASSOCIATE INTERMEDI S O ATE ESTAB PT SCANNING 11938 RETINA & NINI, OPHTHALMI 9 VITREOUS CALLIE W C IMAGING ASSOCIATE S O POSTERIOR SGM UNI INJECTION J1040 ERIKA JAMES, Adán DON R DON R METHYLPRE DNISOLONE ACETATE 80 MG SCANNING 13497 RETINA & NINI, OPHTHALMI 8 VITREOUS CALLIE W C IMAGING ASSOCIATE S O POSTERIOR SGM UNI OPHTH 69876 RETINA & NINI, MEDICAL 8 VITREOUS CALLIE W XM&EVAL ASSOCIATE INTERMEDI S O ATE ESTAB PT INJECTION J1040 ERIKA JAMES, Adán DON R DON R METHYLPRE DNISOLONE ACETATE 80 MG OPHTH [id number] RUIZ, RUZI, MEDICAL 8 DONTE A DONTE A XM&EVAL COMPRHNSV ESTAB PT 1/ SCANNING 70150 RETINA & NINI, OPHTHALMI 8 VITREOUS CALLIE W C IMAGING ASSOCIATE S O POSTERIOR SGM UNI OPHTH 99478 RETINA & NINI, MEDICAL 8 VITREOUS CALLIE W XM&EVAL ASSOCIATE INTERMEDI S O ATE ESTAB PT INJECTION J1040 ERIKA JAMES 8 DON R DON R METHYLPRE DNISOLONE ACETATE 80 MG RADIOLOGI 74194 ERIKA JAMES C EXAM 8 DON R DON R CHEST 2 VIEWS FRONTAL&L ATERAL OPHTH 73375 RETINA & RETINA & MEDICAL 8 VITREOUS VITREOUS XM&EVAL ASSOCIATE ASSOCIATE INTERMEDI S O S O ATE ESTAB PT SCANNING 54797 RETINA & RETINA & OPHTHALMI 8 VITREOUS VITREOUS C IMAGING ASSOCIATE ASSOCIATE S O S O POSTERIOR SGM UNI SCANNING 72691 RETINA & RETINA & OPHTHALMI 8 VITREOUS VITREOUS C IMAGING ASSOCIATE ASSOCIATE S O S O POSTERIOR SGM UNI OPHTH 65037 RETINA & RETINA & MEDICAL 8 VITREOUS VITREOUS XM&EVAL ASSOCIATE ASSOCIATE INTERMEDI S O S O ATE ESTAB PT INJECTION J1100 ERIKA JAMES 8 DON R DON R DEXAMETHO SONE SODIUM PHOSPHATE 1 MG Encounters Encounter Start End Date Code Location Performer Type Date OFFICE 76385 [place] [facility] 7 7 PHYSICIAN T VISIT S GROUP 25 MINUTES OFFICE 86588 [place] [facility] 7 7 PHYSICIAN T VISIT S GROUP 40 MINUTES OFFICE 77087 Darn[facility] RO[facility] OUTPATIRYLEE 7 7 PILAR PLEITEZ T VISIT [facility] 15 MINUTES OFFICE 56715 [place] BLADIMIR OUTPATIEN 7 7 Y OF CK T VISIT [place] 25 HOSPI MINUTES OFFICE 31858 Darnell ROY OUTGINO 7 7 PILAR PLEITEZ T VISIT [facility] 15 MINUTES [facility]OSPITAL LUCY - 7 7 [facility] INPATIENT INC OFFICE 24042 A Kristy ROY OUTPATIEN 7 7 PILAR [place]ITE[place] T VISIT [facility] 15 MINUTES OFFICE 60618 A Kristy ROY OUTPATIEN 7 7 [facility] [place] T VISIT [facility] 15 MINUTES OFFICE 63025 A Kristy ROY OUTPATIEN 7 7 PILAR PLEITEZ T VISIT [facility] 15 MINUTES OFFICE 76459 [place] [facility] OUTPATIEN 6 6 MEDICAL JAM T VISIT SERV 25 [facility]AT[facility] MINUTES [facility] LUC[facility] - 6 6 [facility] T OFFICE 68511 [place] [facility] OUTPATI[facility] 6 6 PHYSICIAN RITA T VISIT S GROUP 10 MINUTES [facility]OSPITAL LUCY - 6 6 [facility] OUTPATIEN INC T OFFICE 75060 [facility] OUTPATIEN 6 6 [facility] 10 P MINUTES OFFICE 87245 A C KIRILL OUTPATIEN 6 6 PILAR PLEITEZ T VISIT PSC 15 MINUTES OFFICE 32420 ELIO POLLOCK OUTPATIEN 6 6 MEDICAL JAM T VISIT SERV 15 FOUNDATIO MINUTES N OFFICE 56957 [facility] EV[facility] OUTPATIEN 6 6 [facility] 20 HOSPITAL MINUTES P OFFICE 00439 [place] [facility] OUTPATIEN 6 6 PHYSICIAN RITA T VISIT S GROUP 15 MINUTES HOSPITAL LUCY - 6 6 [facility] OUTPATI[facility] INC T OFFICE 07669 [place] [facility] OUTPATIEN 6 6 PHYSICIAN RITA T NEW 45 S GROUP MINUTES HOSPITAL LUCY - 6 6 [facility] OUTPATIEN INC T OFFICE 94086 ELIO POLLOCK OUTPATIEN 6 6 MEDICAL JAM T VISIT SERV 25 FOUNDATIO MINUTES N OFFICE 88448 A C KIRILL OUTPATIEN 6 6 PILAR PLEITEZ T VISIT PSC 15 MINUTES OFFICE 22201 [place] [facility] OUTPATIEN 6 6 MEDICAL JAM T VISIT SERV 25 FOUNDATIO MINUTES HOSPITAL LUCY - 6 6 [facility] OUTPATIEN INC EMERGENCY 91558 [facility] 6 Y OF [facility]ADALYN VISIT [facility] H[facility] SEVERITY& THREAT [facility] OFFICE 83153 A Kristy ROY JENNA OUTPATIEN 6 6 PILAR [place]LEITE[place] T VISIT PSC 15 MINUTES OFFICE 62450 A Kristy ROY JENNA OUTPATIEN 6 6 PILAR PLEITEZ T VISIT PSC 15 MINUTES OFFICE 68756 [place] PO[place] OUTPATIEN 6 6 MEDICAL JAM T VISIT SERV 40 FOUNDATIO MINUTES [facility] LUCY - 6 6 [facility] INPATIENT [facility] LUCY - 6 6 [facility] OUTPATIEN [facility] OFFICE 85166 [place] OUTPATIEN 6 6 MEDICAL T VISIT SERV 25 FOUNDATIO MINUTES OFFICE 24035 [place] OUTPATIEN 6 6 MEDICAL JAM T VISIT SERV 15 FOUNDATIO MINUTES [facility] LUCY - 5 5 [facility] OUTPATIEN INC [facility] LUCY - 5 5 [facility] OUTPATIEN [facility] LUCY - 5 5 [facility] OUTPATIEN [facility] OFFICE 27938 A C FIELD AMB OUTPATIEN 5 5 PILAR PLEITEZ T VISIT PSC 15 MINUTES OFFICE 76814 A C FIELD AMB OUTPATIEN 4 4 P[facility]AR [facility] T VISIT PSC 15 MINUTES [facility]OSPITAL LUCY - 4 4 [facility] OUTPATIEN [facility] LUCY - 4 4 [facility] OUTPATIEN [facility] LUCY - 4 4 [facility] 4 4 [facility] OUTPATIEN [facility] OFFICE [id number] FIELD AMB FIELD AMB OUTPATIEN 4 4 T VISIT 15 MINUTES OFFICE [id number] FIELD AMB FIELD AMB OUTPATIEN 3 3 T VISIT 15 MINUTES OFFICE 95769 A C FIELD AMB OUTPATIEN 3 3 PILAR PLEITEZ T NEW 30 PSC MINUTES OFFICE 26022 JAMES JAMES OUTPATIEN 3 3 DON DON T VISIT 15 MINUTES [facility]OSPITAL LUCY - 3 3 [facility] T OFFICE [id number] JAMES JAMES OUTPATIEN 3 3 DON DON T VISIT 15 MINUTES [facility]OSPITAL LUCY [facility] 2 2 [facility] OFFICE [id number] JAMES JAMES OUTPATIEN 2 2 DON DON T VISIT 15 MINUTES [facility]OSPITAL LUCY - 2 2 [facility] LUCY [facility] 2 2 [facility] LUCY - 2 2 [facility] LUCY - 2 2 [facility] T OFFICE [id number] JAMES JAMES OUTPATIEN 2 2 DON DON T VISIT 15 MINUTES OFFICE 03747 JAMES JAMES OUTPATIEN 1 1 DON DON T VISIT 15 MINUTES OFFICE 74501 JAMES JAMES OUTPATIEN 1 1 DON DON T VISIT 15 MINUTES OFFICE [id number] ERIKA JAMES OUTPATIEN 1 1 DON DON T VISIT 15 MINUTES OFFICE 02175 ERIKA JAMES OUTPATIEN 1 1 DON DON T VISIT 15 MINUTES [facility]UC[facility] - 0 0 [facility] LUCY - 0 0 [facility] LUCY [facility] 0 0 [facility] OFFICE 88119 CHINYERE JAMESHENS, OUTPATIEN 0 0 DON R DON R T VISIT 15 MINUTES OFFICE 31548 JAMES, JAMES, OUTPATIEN 0 0 DON R DON R T VISIT 25 MINUTES OFFICE 78170 JAMES, JAMES, OUTPATIEN 0 0 DON R DON R T VISIT 15 MINUTES OFFICE 81627 JAMES, JAMES, OUTPATIEN 8 8 DON R DON R T VISIT 15 MINUTES OFFICE 47787 ERIKA JAMES, OUTPATIEN 8 8 DON R DON R T VISIT 15 MINUTES OFFICE 53648 JAMES, JAMES, OUTPATIEN 8 8 DON R DON R T VISIT 15 MINUTES OFFICE [id number] ERIKA JAMES, OUTPATIEN 8 8 DON R DON R T VISIT 15 MINUTES OFFICE 61186 ERIKA JAMES, OUTPATIEN 8 8 DON R DON R T VISIT 15 MINUTES
--- OUTSIDE RECORDS SUMMARY | 2016-11-15 14:18 | External Medical Summary Rpt ---
Author Author , RANDALL Organization RANDALL Address Unknown Phone [email or web address] Care Team Providers Care Global Manager Name Role Phone A Kristy QUEZADA [...] Unavailable [facility] Unavailable Unavailable SERVICE, [facility] Unavailable Unavailable SERVICE, [facility] Unavailable Unavailable [place], [...] Unavailable Unavailable INC, [facility] Unavailable Unavailable HOSPITAL P, [facility] DONTE RUIZ, Unavailable Unavailable DONTE RUIZ [facility], Unavailable Unavailable [facility] ARMENDARIZ JENNA, ARMENDARZI JENNA Unavailable Unavailable HUI MIKHAIL, HIU MIKHAIL Unavailable Unavailable BECKY MAR, BECKY Unavailable Unavailable [facility] NINI, CALLIE W, Unavailable Unavailable NINI, CALLIE W [facility] Un[facility]available [facility] GLENN JR, GLENN JR Unavailable Unavailable GLENN JR DWI, GLENN Unavailable Unavailable JR DWI [facility] Unavailable Unavailable INTERNAL MED, [facility] JAMES CON, JAMES CON Unavailable Unavailable POLLOCK, POLLOCK Unavailable Unavailable POLLOCK JAM, Unavailable Unavailable POLLOCK JAM POLLOCK JAM, Unavailable Unavailable POLLOCK JAM NELLY KEY, NELLY Unavailable Unavailable KEY NELLY, JANE P, Unavailable Unavailable [facility] Unavailable Unavailable LAB [facility], [facility] Unavailable Unavailable [facility], [facility] LORI BET, LORI BET Unavailable Unavailable KIRILL, KIRILL Unavailable Unavailable KIRILL JENNA, KIRILL JENNA Unavailable Unavailable REYEZ CLEO, REYEZ CLEO Unavailable Unavailable VALORIE NEEL, VALORIE NEEL Unavailable [facility]available [facility] Unavailable Unavailable LAB, [facility] PAVEZ MAR, PAVEZ MAR Unavailable Unavailable PAULA JURGEN Unavailable Unavailable ANNEL, PAULA JURGEN ANNEL [facility] Unavailable Unavailable [facility], [id number], Unavailable Unavailable [id number] Unavailable Unavailable [id number] [address] [id number], [facility] [address] # [id number] SHANELL CAR, Unavailable Unavailable SHANELL CAR SHAARTEMIOY KEY, SHAMARIO Unavailable Unavailable KEY RHIANNON, RHIANNON Unavailable Unavailable [...] RAYMOND RONNY, RAYMOND Unavailable Unavailable RONNY JANENE GARZAF, JANENE Unavailable Unavailable PALMA JANENE BERGMAN, JANENE Unavailable Unavailable OTTO BOOTH Unavailable Unavailable [facility], Unavailable Unavailable [facility] Unavailable [facility] HIEU FRACNO, HIEU Unavailable Unavailable [facility], Unavailable [facility], Unavailable [facility]available [facility] MARINA TIFFANI, Unavailable Unavailable MARINA TIFFANI Purpose Continuity of Care Document - 04-25-2007 through 2016 Problems Code Diagnosis DOS Provider Status E785 HYPERLIPIDE 10-04-2016 [facility] PHYS[facility]IANS UNSPECIFIED GROUP I119 HYPERTENSIV 10-04-2016 [facility] E HEART PHYSICIANS DISEASE GROUP WITHOUT HEART FAILURE 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 J449 CHRONIC 10-04-2016 [facility] OBSTRUCTIVE PHYSICIANS PULMONARY GROUP DISEASE UNS R0600 DYSPNEA 10-04-2016 [facility] UNSPECIFIED PHYSICIANS GROUP R0602 SHORTNESS 09-14-2016 [facility] R918 OTHER 09-14-2016 [place] NONSPECIFIC MEDICAL ABNORMAL IMAGING ASS FINDING OF LUNG FIELD 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 N R079 CHEST PAIN 08-25-2016 [place] UNSPECIFIED [facility]ICAL IMAGING ASS I4891 UNSPECIFIED 07-03-2016 [facility] FIBRILLATIO MEDICAL N EQUIPME I482 CHRONIC 06-14-2016 A Kristy QUEZADA ATRIAL [facility] FIBRILLATIO N J9610 CHRONIC 06-14-2016 A Kristy QUEZADA RESPIRATORY PSC FAIL UNS HYPOXIA/HYP ERCAPNIA R296 REPEATED 06-14-2016 A Kristy KHAN MD PSC J441 CHRONIC 05-25-2016 A Kristy QUEZADA OBSTRUCTIVE PSC PULMONARY DZ W/EXACERBAT ION B957 OTH 05-14-2016 [facility] STAPHYLOCOC [facility] CUSS CAUSE INC OF DZ CLASSIFIED ELSW J209 ACUTE 05-14-2016 [facility] BRONCHITIS [facility] UNSPECIFIED INC J440 COPD WITH 05-14-2016 [facility] ACUTE LOWER [facility] RESPIRATORY INFECTION 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 QUEZADA ATRIAL [facility] FIBRILLATIO N I5020 UNSPECIFIED 05-10-2016 A Kristy QUEZADA SYSTOLIC [facility] CONGESTIVE HEART FAILURE C9110 CHRONIC 01-11-2016 [place] [facility] 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 R634 ABNORMAL 01-11-2016 [facility] WEIGHT LOSS [facility] INC R1110 VOMITING 01-09-2016 [facility] UNSPECIFIED PHYSICIANS GROUP K828 OTHER 01-02-2016 [place] SPECIFIED MEDICAL DISEASES OF IMAGING ASS GALLBLADDER R630 ANOREXIA 01-02-2016 [facility] K921 MELENA 11-07-2015 [facility] K5710 DIVERTICULO 11-03-2015 [place] SIS SM MEDICAL INTEST W/O IMAGING ASS PERF/ABSC W/O BLEED R195 OTHER FECAL 11-03-2015 [place] [facility] ABNORMALITI IMAGING ASS ES S08044 LYMPHOCYTOS 10-26-2015 [facility] IS PATHOLOGY SYMPTOMATIC LAB [...] J9811 ATELECTASIS 09-14-2015 [facility] O81959 ENCOUNTER 09-14-2015 [place] [facility] FLW SURG DIGESTIVE SYS Z049 ENCOUNTER 09-13-2015 [place] [facility] EXAMIN[facility] SERV &OBSERVATIO FOUNDATION N FOR UNS REASON K5900 CONSTIPATIO 09-12-2015 [place] [facility] [place] [facility] UNSPECIFIED [facility] R140 ABDOMINAL 09-10-2015 [place] [facility] GASEOUS [facility] R0989 OTH SPEC SX 09-09-2015 [place] [facility] SIGNS SERV INVLV THE [facility]OUNDATION CIRC & RESP SYS A419 SEPSIS 09-08-2015 [place] [facility] UNSPECIFIED SERV ORGANISM [facility] E873 ALKALOSIS 09-08-2015 [facility] E876 HYPOKALEMIA 09-08-2015 [facility] J90 PLEURAL 09-08-2015 [place] [facility] EFFUSION SERV NOT FOUNDATION ELSEWHERE CLASSIFIED J9620 ACUTE 09-08-2015 [place] [facility] CHRONIC SERV RESP FAIL FOUNDATION UNS HYPOXIA/HYP ERCAPNIA J984 OTHER 09-08-2015 [place] [facility] DISORDERS SERV OF LUNG [facility]OUND[facility] R109 UNSPECIFIED 09-08-2015 [place] [facility] ABDOMINAL SERV PAIN [facility] Z4682 ENCOUNTER 09-08-2015 [facility] ADJUST HOSPI NON-VASCULA R CATHETER I459 CONDUCTION [...] POSTPROCEDU FOUNDATION RAL STATES 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 K4030 UNILAT 08-25-2015 [facility] INGUINAL [facility] NGUYEN W/OBST HOSPI W/O GANGRN NOT RECUR K4040 UNILAT 08-25-2015 [place] [facility] IN[facility]AL [facility] NGUYEN FOUNDATION W/GANGREN NOT SPEC RECUR 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[place] [facility] 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 USE SERV OF [facility]ATION ANTICOAGULA NTS Y51151 ELEVATED 08-24-2015 [facility] BLOOD [facility] P UNSPECIFIED K4090 UNILAT 08-24-2015 [place] [facility] IN[facility]INAL SERV NGUYEN W/O FOUNDATION OBST/GANGRE N NOT RECUR K5660 UNSPECIFIED 08-24-2015 [facility] INTESTINAL AMBULANCE SERVICE OBSTRUCTION R1031 RIGHT LOWER 08-24-2015 [facility] PAIN HOSPI 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 J439 EMPHYSEMA 08-03-2015 [facility] UNSPECIFIED [place] INTERNAL MED R002 PALPITATION 08-03-2015 [place] [facility] S [facility] R031 NONSPECIFIC 08-03-2015 [place] [facility] LOW SERV BLOOD-PRESS [facility]ATION URE READING R42 DIZZINESS 08-03-2015 [place] [facility] GIDDINESS FOUND[facility] 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 MED J189 PNEUMONIA 07-13-2015 [facility] UNSPECIFIED MEM HOSP ORGANISM INC Z7722 CONTACT W/ 07-13-2015 [place] [facility] & SUSPECTED SERV EXPOS [facility] ENVIR TOBACCO SMOKE J40 BRONCHITIS 03-25-2015 [place] NOT MEDICAL SPECIFIED IMAGING ASS ACUTE OR CHRONIC J929 PLEURAL 02-02-2015 [place] PLAQUE MEDICAL WITHOUT IMAGING ASS ASBESTOS R091 PLEURISY 01-21-2015 [place] [facility] 4280 CONGESTIVE 01-14-2015 [facility] FAILURE MEDICAL UNSPECIFIED EQUIPME 92077 OBSTRUCTIVE 01-14-2015 [facility] WITHOUT EXACERBAT 496 CHRONIC 01-14-[address] [facility] [address] [facility] OBSTRUCTION MEDICAL NEC EQUIPME 26996 NUCLEAR 12-28-2014 [facility] SCLEROSIS JAMILAH 66989 OBST 09-06-2014 A Kristy QUEZADA CHRONIC PSC BRONCHITIS W/ACUTE BRONCHITIS 68652 LOSS OF 09-06-2014 A Kristy QUEZADA WEIGHT PSC 12330 OTHER CHEST 09-06-2014 A Kristy QUEZADA PAIN PSC 15158 OBSTRUCTIVE 09-05-2014 [facility] SLEEP 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 MEDICAL EQUIPME 7242 LUMBAGO 04-01-2014 A Kristy QUEZADA MD PSC V0382 NEED PROPH 04-01-2014 A Kristy QUEZADA VACCINATION PSC AGAINST STREP PNEUMONE 73153 ATRIAL 01-13-2014 [facility] FIBRILLATIO [facility] N INC 41768 REFLUX 01-13-2014 [facility] ESOPHAGITIS [facility] INC 06360 UNS 01-13-2014 [facility] GASTRITIS&G [facility] ASTRODUODIT INC IS W/O MENTION HEMORR 68398 ABDOMINAL 01-13-2014 [facility] PAIN, MEM [facility]OS[facility] GENERALIZED INC V5869 LONG-TERM 01-13-2014 [facility] (CURRENT) [facility] USE OF INC OTHER MEDICATIONS 31133 CHEST PAIN 11-24-2013 [facility] UNSPECIFIED [facility] INC 5110 PLEURISY 10-29-2013 [place] WITHOUT MEDICAL MENTION IMAGING ASS EFFUS/CURRE NT TB 7862 COUGH 10-29-2013 [place] [facility] 94859 INSOMNIA 12-16-2012 A Krisyt QUEZADA UNSPECIFIED PSC 55809 OTHER 12-16-2012 A Kristy QUEZADA MALAISE AND PSC FATIGUE 33598 FEVER 05-23-2012 JAMES UNSPECIFIED DON 04114 WHEEZING 05-23-2012 JAMES DON 1120 CANDIDIASIS 05-21-2012 JAMES OF MOUTH DON 03331 OTHER 05-21-2012 FRANCESCA DISEASES OF EMY LUNG NOT ELSEWHERE CLASSIFIED 4940 BRONCHIECTA 01-28-2012 [place] SIS WITHOUT MEDICAL ACUTE IMAGING ASS EXACERBATIO N 5119 UNSPECIFIED 01-28-2012 [place] PLEURAL MEDICAL EFFUSION IMAGING ASS 50876 OTHER 01-28-2012 [facility] NONSPECIFIC [facility] ABNORMAL INC FINDING OF LUNG FIELD 31970 OSTEOARTHRO 01-02-2012 E[facility]KA S INVLV MX DON [place]IT[place] [address] OBSTRUCTIVE 11-12-2011 [facility] CHRONIC [facility] BRONCHITIS INC WITH EXACERBATIO N 77938 ESOPHAGEAL 11-12-2011 [facility] REFLUX [facility] INC 2859 UNSPECIFIED 10-05-2011 [facility] ANEMIA [facility] INC 5180 PULMONARY 10-05-2011 [place] COLLAPSE MEDICAL IMAGING ASS 486 PNEUMONIA, 09-28-2011 [place] ORGANISM MEDICAL UNSPECIFIED IMAGING ASS 5070 PNEUMONITIS 09-28-2011 [facility] DUE TO JAM INHALATION OF FOOD OR VOMITUS 07238 SHORTNESS 09-28-2011 [facility] OF BREATH [facility] INC 03597 ABDOMINAL 09-28-2011 [facility] PAIN, MEM HOS[facility] EPIGASTRIC INC V1261 PERSONAL 09-28-2011 [facility] HISTORY JAM PNEUMONIA RECURRENT 88815 PNEUMONIA 06-08-2011 JAMES DUE TO DON OTHER SPECIFIED BACTERIA 2724 OTHER AND 05-11-2011 COMBINED UNSPECIFIED PHYSICIANS [place] HYPERLIPIDE [place] 2768 HYPOPOTASSE 05-11-2011 [facility]ED [place] PHYSICIANS [place] 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 6019 UNSPECIFIED 05-11-2011 [place] [address] PAIN IN 05-11-2011 COMBINED JOINT, PHYSICIANS MULTIPLE LA SITES 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 5183 PULMONARY 11-28-2009 [facility] A 94255 ACUTE 11-28-2009 [place] [facility] RESP[facility]ATORY SERV FAILURE FOUNDATIO 7856 ENLARGEMENT 11-28-2009 [facility] NODES 7931 NONSPEC 11-28-2009 [place] [facility] FIND RAD SERV OTH EXAM F[facility]ATIO BODY STRUCT LUNG FIELD V1582 PERS HX 11-28-2009 [facility] TOBACCO USE [facility] PRESENTING [facility] V7282 PRE-OPERATI 11-28-2009 [place] [facility] VE SERV RESPIRATORY FOUNDATIO EXAMINATION 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 86760 DYSPHAGIA 11-18-2009 [place] UNSPECIFIED MEDICAL IMAGING ASS 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 DON R PULMONARY FIBROSIS 52546 OSTEOARTHRO 08-23-2009 [facility] SIS UNSPEC DON R WHETHER GEN/LOC LOWER LEG 32518 OSTEOARTHRO 08-23-2009 [facility] S UNSPEC DON R GEN/LOC OTH SPEC SITES 15416 MACULAR 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 RUIZ A N OF RETINA UNSPECIFIED 82119 NONEXUDATIV 07-20-2008 RET[facility] & 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 12816 EXUDATIVE 07-20-2008 RET[facility] & SENILE [facility]ITREOUS MAC[facility] ASSOC[facility]ATES DEGENERATIO O N OF RETINA 99622 CRYSTALLINE 07-20-2008 RETINA & DEPOSITS VITREOUS IN VITREOUS ASSOCIATES O 4610 ACUTE 02-27-2008 JAMES, MAXILLARY DON R SINUSITIS 4659 ACUTE URIS 02-27-2008 [facility], OF DON R UNSPECIFIED SITE 8472 LUMBAR 11-14-2007 JAMES, SPRAIN AND DON R STRAIN 4660 ACUTE 08-02-2007 JAMES, BRONCHITIS DON R 4871 INFLUENZA 07-04-2007 E[facility]KA, WITH OTHER DON R RESPIRATORY MANIFESTATI ONS 02179 PAIN IN 04-25-2007 JAMES, JOINT, DON R SHOULDER REGION 97044 UNSPECIFIED 04-25-2007 JAMES, SYNOVITIS DON R AND [...] ET 03 93 8 # 03 93 [place] 00 04 04 00 12 6 RI [...] Procedure DOS Code Location Performer Comment ECG 59141 [facility] ROUTINE 7 PHYSICIAN ECG S GROUP W/LEAST 12 LDS I&R ONLY CT THORAX [address] [place] [address] MEDICAL W/CONTRAS IMAGING T ASS MATERIAL ADMN SET A7003 YOUR YOUR SM VOL 7 PHARMACY PHARMACY NONFILTR [employer] PNEUMAT NEBULIZR DISPBL ALBUTEROL J7620 YOUR YOUR TO 2.5 7 PHARMACY PHARMACY [employer] [facility] IPRATROPI UM BROM TO 0.5 MG ALBUTEROL J7620 A C A C TO 2.5 7 PILAR QUEZADA MD MG & PSC PSC IPRATROPI UM BROM TO 0.5 MG ECG 92640 [facility] ROUTINE 7 PHYSICIAN ECG S GROUP W/LEAST 12 LDS I&R ONLY R & L HRT 94389 [facility] CATH 7 PHYSICIAN WINJX HRT S GROUP ART& L VENTR IMG ECG 45302 [facility] GLENN MORALES ROUTINE 7 [facility] W/LEAST P 12 LDS I&R ONLY RADIOLOGI 09812 [facility] C 7 MEDICAL EXAMINATI IMAGING ON CHEST ASS SINGLE VIEW FRONTAL ADMN SET A7003 YOUR YOUR SM VOL 7 PHARMACY PHARMACY NONFILTR [employer] PNEUMAT NEBULIZR DISPBL ALBUTEROL J7620 YOUR YOUR TO 2.5 7 PHARMACY PHARMACY [employer] [facility] IPRATROPI UM BROM TO 0.5 MG O2 CONC 1 E1390 [facility] [place] 7 HOME HOME 85%/>02 MEDICAL MEDICAL CONC AT EQUIPME EQUIPME PRSC FLW RATE O2 CONC 1 E1390 [facility] [place] 7 HOME HOME 85%/>02 MEDICAL MEDICAL CONC AT EQUIPME EQUIPME PRSC FLW RATE SBSQ 33763 [facility] 7 MEDICAL CARE/DAY SERV 25 FOUNDATIO MINUTES N RADIOLOGI 28156 [facility] C EXAM 7 MEDICAL MEDICAL [...] MG O2 CONC 1 E1390 [facility] 6 HOME HOME 85%/>02 MEDICAL MEDICAL CONC AT [facility] FLW RATE HOSPITAL G0463 [facility] AYALA OUTPATIEN 6 MEM HOSP MEM HOS[facility] T CLIN INC INC VISIT ASSESS & MGMT PT O2 CONC 1 E1390 [facility] 6 HOME HOME 85%/>02 MEDICAL MEDICAL CONC AT [facility] FLW RATE COMPREHEN 59448 L[facility] AYALA SIVE 6 [facility] METABOLIC INC INC PANEL LOCM Q9967 [facility] AYALA 300-399 6 [facility] H[facility] MG/ML INC INC IODINE CONCENTRA TION PER ML COLLECTIO 80932 [facility] AYALA N VENOUS 6 MEM [facility] BLOOD INC INC VENIPUNCT URE BLOOD 87886 [facility] AYALA COUNT 6 MEM HOS[facility] COMPLETE INC INC AUTO&[place] [address] [facility] AYALA ABDOMEN 6 MEM HOSP [facility]OS[facility] W/CONTRAS INC INC T MATERIAL ANES 78886 [facility] UPPER GI 6 ANESTH PALMA ENDOSCOPY OF THE PROXIMAL BLUE TO DUODENUM O2 CONC 1 E1390 [facility] LEVY [facility] 6 HOME HOME 85%/>02 MEDICAL MEDICAL CONC AT [facility] FLW RATE O2 CONC 1 E1390 [facility]NA [facility] 6 HOME MAR 85%/>[address] [facility] FLW RATE RADEX 27208 [facility] AYALA UPPER GI 6 MEM HOSP MEM HOSP W/WO INC INC GLUCAGON/ DELAY IMAGES W/KUB RADEX 09177 TEX FONTANEZ ALL UPPER GI 6 MEDICAL W/WO IMAGING GLUCAGON/ ASS DELAY IMGES W/O KUB COLLECTIO 06484 [facility] A[facility]ALA N VENOUS 6 MEM HOSP MEM HOSP BLOOD INC INC VENIPUNCT URE FLOW 59727 [facility] AYALA CYTOMETRY 6 MEM HOSP MEM HOSP CELL INC INC SURF MARKER TECHL ONLY 1ST FLOW 98360 LUCY LUCY CYTOMETRY 6 MEM HOSP MEM HOSP CELL INC INC SURF MARKER TECHL ONLY EA FLOW 63526 MOLE[facility]ULAR MOLECULAR CYTOMETRY 6 INTER PATHOLOGY PATHOLOGY 2-8 LAB NETW LAB NETW MARKERS NEBULIZER E0570 [facility] WITH 6 HOME HOME COMPRESSO MEDICAL MEDICAL R EQUIPME EQUIPME O2 CONC 1 E1390 [facility] [place] 6 HOME EKY 85%/>02 MEDICAL CONC AT EQUIPME PRSC FLW RATE WALKER E0143 [facility] 6 WHEELED ADJUSTABL E/FIXED HEIGHT SEAT E0156 [facility] ATTACHMEN 6 T WALKER ECG 32388 [place] [facility] ROUTINE 6 MEDICAL ECG SERV W/LEAST FOUNDATIO 12 LDS N I&R ONLY ECG [address] [place] [facility] ROUTINE 6 MEDICAL NAN ECG SERV W/LEAST FOUNDATIO 12 LDS N I&R ONLY SBSQ 15210 [facility] 6 MEDICAL KEYANA CARE/DAY SERV 25 FOUNDATIO MINUTES N RADIOLOGI 02829 [place] JAMES CON C 6 MEDICAL EXAMINATI SERV ON CHEST FOUNDATIO SINGLE N VIEW FRONTAL RADIOLOGI 24495 [place] WILLIEK C 6 MEDICAL AYA MAR EXAMINATI SERV ON CHEST FOUNDATIO SINGLE N VIEW FRONTAL SBSQ 48842 [facility] 6 MEDICAL KEYANA CARE/DAY SERV 15 FOUNDATIO MINUTES N SBSQ 54063 [facility] 6 MEDICAL KEYANA CARE/DAY SERV 15 FOUNDATIO MINUTES N RADIOLOGI 80335 [place] MARCELLO JENNA C 6 MEDICAL EXAMINATI SERV ON CHEST FOUNDATIO SINGLE N VIEW FRONTAL RADIOLOGI 27149 [place] MAHMOOD LEATHA C 6 MEDICAL EXAMINATI SERV ON CHEST FOUNDATIO SINGLE N VIEW FRONTAL SBSQ 33476 [facility] 6 MEDICAL CARE/DAY SERV 25 FOUNDATIO MINUTES N ECG 35853 [place] [facility] ROUTINE 6 MEDICAL ECG SERV W/LEAST FOUNDATIO 12 LDS N I&R ONLY RADIOLOGI 55335 [place] MAHMOOD LEATHA C 6 MEDICAL EXAMINATI SERV ON CHEST FOUNDATIO SINGLE N VIEW FRONTAL SBSQ 50681 [facility] 6 MEDICAL CARE/DAY SERV 25 FOUNDATIO MINUTES N RADEX 97053 [place] [facility] ABDOMEN 1 6 MEDICAL SUSAN SERV ANTEROPOS FOUNDATIO TERIOR N VIEW RADEX 46457 [facility]OM[facility] 1 6 Y OF CAR [place] ANTEROPOS HOSPI TERIOR VIEW CRITICAL 71588 [facility] 6 MEDICAL ILL/INJUR SERV ED FOUNDATIO PATIENT N INIT 30-74 MIN RADIOLOGI 20313 [place] JAMES CON C 6 MEDICAL EXAMINATI SERV ON CHEST FOUNDATIO SINGLE N VIEW FRONTAL ECG 22026 [facility] ROUTINE 6 MEDICAL ECG SERV W/LEAST FOUNDATIO 12 LDS N I&[place] [address] [place] REYEZ CLEO ABDOMEN & 6 MEDICAL PELVIS SERV W/CONTRAS FOUNDATIO T N MATERIAL CT THORAX 71843 [facility] 6 MEDICAL W/CONTRAS SERV T FOUNDATIO MATERIAL N RADIOLOGI 08390 [place] JONAHGUROK C 6 MEDICAL AYA MAR EXAMINATI SERV ON CHEST FOUNDATIO SINGLE N VIEW FRONTAL SBSQ 04122 [facility] 6 MEDICAL CARE/DAY SERV 25 FOUNDATIO MINUTES N RADEX 68029 [facility] GUADALUPITA ABDOMEN 1 6 Y OF CAR [place] ANTEROPOS HOSPI TERIOR VIEW SBSQ 99856 [place] [address] MEDICAL AND CARE/DAY SERV 25 FOUNDATIO MINUTES N RADIOLOGI 33524 [place] JAMES CON C 6 MEDICAL EXAMINATI SERV ON CHEST FOUNDATIO SINGLE N VIEW FRONTAL INITIAL 95280 [facility] 6 MEDICAL SUN KAYODE CARE/DAY SERV 30 FOUNDATIO MINUTES N ECG 24063 [facility] ROUTINE 6 MEDICAL ECG SERV W/LEAST FOUNDATIO 12 LDS N I&R ONLY ECHO 82852 [place] [facility] R-T 6 MEDICAL ERIKA 2D SERV W/WOM-MOD FOUNDATIO E COMPL N SPEC&COLR D RADEX ABD 07457 [place] PAULA COMPL 6 MEDICAL JURGEN AQT ABD SERV ANNEL W/S/E/D FOUNDATIO VIEWS 1 N VIEW CH SBSQ 41916 [facility] 6 MEDICAL AND CARE/DAY SERV 25 FOUNDATIO MINUTES N RADIOLOGI 28531 [place] JAMES CON C 6 MEDICAL EXAMINATI SERV ON CHEST FOUNDATIO SINGLE N VIEW FRONTAL RADIOLOGI 06397 [place] JAMES CON C 6 MEDICAL EXAMINATI SERV ON CHEST FOUNDATIO SINGLE N VIEW FRONTAL ECG 56710 [place] [facility] CHI ROUTINE 6 MEDICAL ECG SERV W/LEAST FOUNDATIO 12 LDS N I&R ONLY RADIOLOGI 06477 [place] ZAGUROVSK C 6 MEDICAL AYA MAR EXAMINATI SERV ON CHEST FOUNDATIO SINGLE N VIEW FRONTAL RADIOLOGI 78942 [place] ROBBINS C 6 MEDICAL JESS EXAMINATI SERV ON CHEST FOUNDATIO SINGLE N VIEW FRONTAL RADEX 31939 [place] ZAGUROVSK ABDOMEN 1 6 MEDICAL AYA MAR SERV ANTEROPOS FOUNDATIO TERIOR N VIEW RADIOLOGI 05266 [place] ZAGUROVSK C 6 MEDICAL AYA MAR EXAMINATI SERV ON CHEST FOUNDATIO SINGLE N VIEW FRONTAL CT THORAX 16610 [place] ARMENDARIZ JENNA 6 MEDICAL W/[place] [address] [place] AYOOB AND ABDOMEN & 6 MEDICAL PELVIS SERV W/CONTRAS FOUNDATIO T N MATERIAL RADEX 89464 [place] VALORIE NEEL ABDOMEN 1 6 MEDICAL SERV ANTEROPOS FOUNDATIO TERIOR N VIEW SBSQ 49979 [facility] 6 MEDICAL AND CARE/DAY SERV 25 FOUNDATIO MINUTES N SBSQ 54683 [facility] 6 MEDICAL AND CARE/DAY SERV 25 FOUNDATIO MINUTES N RADIOLOGI 75885 [place] DELL CAR C 6 MEDICAL EXAMINATI SERV ON CHEST FOUNDATIO SINGLE N VIEW FRONTAL RADIOLOGI 28887 [place] JAMES CON C 6 MEDICAL EXAMINATI SERV ON CHEST FOUNDATIO SINGLE N VIEW FRONTAL ECG 29507 [place] PELAEZ ROUTINE 6 MEDICAL NAN ECG SERV W/LEAST FOUNDATIO 12 LDS N I&R ONLY ECG 32812 ELIO AMES MIKHAIL ROUTINE 6 MEDICAL ECG SERV W/LEAST FOUNDATIO 12 LDS N I&R ONLY ARTL 44441 [facility] CATHJ/CAN 6 Y OF Y OF NULJ [facility] MNTR[facility] SFUSION SPX PRQ RPR 1ST 42042 [facility] 6 MEDICAL RONNY HRNA AGE SERV 6 YRS/> FOUNDATIO INCARCERA N KISHOR SBSQ 09258 [facility] 6 MEDICAL RONNY CARE/DAY SERV 25 [place] [address] [facility] SURG 6 MEDICAL FRANCO PATHOLOGY SERV FOUNDATIO GROSS&JESS N ROSCOPIC EXAM LEVEL III [address] [facility] SURG 6 MEDICAL FRANCO PATHOLOGY SERV FOUNDATIO GROSS&JESS N ROSCOPIC EXAM ANESTHESI 20733 [facility] BET A HERNIA 6 Y [place] [address] [place]OM[place] & 6 MEDICAL PELVIS IMAGING W/O ASS CONTRAST MATERIAL ECG 85174 [facility] ROUTINE 6 [facility] ECG INC INC W/LEAST 12 LDS TRCG ONLY W/O I&R RADIOLOGI 66643 [place] C 6 MEDICAL EXAMINATI IMAGING ON CHEST ASS SINGLE VIEW FRONTAL COMPREHEN 02088 [facility] SIVE 6 [facility] [place] [address] [facility] AMYLASE 6 [facility] INC INC CREATINE 02268 [facility] KINASE MB 6 [facility] FRACTION INC INC ONLY INITIAL 78437 [facility] 6 MEDICAL CHR CARE/DAY SERV 50 FOUNDATIO MINUTES N GROUND A0425 [facility] MILEAGE 6 AMBULANCE AMBULANCE PER SERVICE SERVICE STATUTE MILE AMBULANCE A0429 [facility] SERVICE 6 AMBULANCE AMBULANCE BLS [place] [address] [facility] INFUSION 6 [facility] THERAPY/P INC INC ROPHYLAXI S /DX 1ST TO 1 HR INJECTION J2405 [facility]ON [facility] ONDANSETR INC INC ON HCL PER 1 MG INJ J2543 [facility] PIPERACIL 6 [facility] YONATHAN INC INC SOD/TAZOB ACTAM SOD 1 G/0.125 G CREATINE 15952 [facility] KINASE 6 [facility] TOTAL INC INC THER 88003 [facility]AL[facility] PROPH/DX 6 [facility] NJX EA INC INC SEQL IV [place]ST/[place] [address] [facility] [facility] [place] [address] LUCY AYALA TROPONIN 6 [facility] QUANTITAT INC INC ARCENIO BLOOD 24884 LUCY AYALA COUNT 6 [facility] COMPLETE INC INC AUTO&AUTO DIFRNTL WBC ECG 17696 LUCY BESMARIBEL ROUTINE 6 [facility] W/LEAST P 12 LDS I&R ONLY BLOOD 59447 A C KIRILL JENNA COUNT 6 PILAR PLEITEZ COMPLETE PSC AUTO&AUTO DIFRNTL WBC COLLECTIO 82068 A Kristy WEST N VENOUS 6 PILAR PLEITEZ BLOOD PSC VENIPUNCT URE NEBULIZER E0570 MILDREDTEJINDER LEVY WITH 6 HOME HOME COMPRESSO MEDICAL MEDICAL R EQUIPME EQUIPME ECG 32431 [facility] W/LEAST P 12 LDS I&R ONLY INITIAL [address]/DAY INTERNAL 70 MED MINUTES NEBULIZER E0570 MILDRED LEVY WITH 6 HOME HOME COMPRESSO MEDICAL MEDICAL R EQUIPME EQUIPME ADMN SET A7003 YOUR YOUR SM VOL 6 PHARMACY PHARMACY NONFILTR [employer] PNEUMAT NEBULIZR DISPBL BLOOD 46710 LUCY AYALA COUNT 6 [facility] COMPLETE INC INC AUTO&AUTO DIFRNTL WBC PHRM Q0513 YOUR YOUR DISPENSIN 6 PHARMACY PHARMACY G FEE [employer] INHALATIO N RX; PER 30 DAYS RADIOLOGI 19816 LUCY AYALA C EXAM 6 [facility] CHEST 2 INC INC VIEWS FRONTAL&L ATERAL COMPREHEN 67528 LUCY AYALA SIVE 6 [facility] METABOLIC INC INC PANEL COLLECTIO 72099 LUCY AYALA N VENOUS 6 [facility] BLOOD INC INC VENIPUNCT URE ALBUTEROL J7620 [...] IPRATROPI UM BROM TO 0.5 MG RADIOLOGI 28349 [facility] C EXAM 5 MEDICAL CHEST 2 IMAGING VIEWS ASS FRONTAL&L ATERAL CT THORAX 62008 [facility] ALL 5 MEDICAL W/CONTRAS IMAGING T ASS MATERIAL RADIOLOGI 59259 [facility] C EXAM 5 MEDICAL CHEST 2 IMAGING VIEWS ASS FRONTAL&L ATERAL NEBULIZER E0570 MILDRED LEVY WITH 5 HOME HOME COMPRESSO MEDICAL MEDICAL R EQUIPME EQUIPME ALBUTEROL J7620 YOUR YOUR TO 2.5 5 PHARMACY PHARMACY [employer] IPRATROPI UM BROM TO 0.5 MG PHARM G0333 YOUR YOUR DISPEN 5 PHARMACY PHARMACY [employer] RX; INITIAL 30-DAY SUPPLY CATARACT 49927 WALLACE LINDSEYFORD REMOVAL 5 JAMILAH JAMILAH INSERTION OF LENS [...] EQUIPME EQUIPME ARWAY PRESS DEVICE EA POLYSOM 19058 NEERAJ KERN MAR 6/>YRS 4 SLEEP 4/> NEUROSCIE ADDL NCES CENT AMA ATTND POLYSOM 43467 LUCY AYALA 6/>YRS 4 [facility] SLEEP 4/> [place] [address] LUCY AYALA INFUSION 4 [facility] THERAPY INC INC PROPHYLAX IS/DX EA HOUR IMC/IMC G0461 LUCY AYALA PER 4 [facility] SPECIMEN; INC INC 1ST SNGL/[place] [address] LUCY AYALA SURG 4 [facility] PATHOLOGY INC INC GROSS&JESS ROSCOPIC EXAM SPECIAL 87718 LUCY AYALA STAIN 4 [facility] GROUP 1 INC INC MICROORGA NISMS I&R SPCL STN 05370 LUCY AYALA 2 I&R 4 [facility] EXCPT INC INC MICROORG/ [place]ZYME/[place] [address] LUCY AYALA INFUSION 4 [facility] THERAPY/P INC INC ROPHYLAXI S /DX 1ST TO 1 HR SPMTRY 08963 LUCY AYALA W/VC 4 [facility] EXPIRATOR INC INC Y ALFREDO W/WO MXML VOL VNTJ ECHO 73645 LUCY AYALA TTHRC R-T 4 [facility] 2D INC INC W/WOM-MOD E COMPL SPEC&COLR D MYOCARDIA 82678 LUCY AYALA L SPECT 4 [facility] MULTIPLE INC INC STUDIES CV STRS 61335 GLENN ELIZABETH JR TST 4 DWI DWI XERS&/OR RX CONT ECG I&R ONLY CV STRS 37109 KEITH PARKER JOSH TST 4 XERS&/OR RX CONT ECG W/O I&R MYOCARDIA 38315 [place] L 4 MEDICAL EMY PERFUSION IMAGING PLANAR ASS MULTIPLE STUDIES RADIOLOGI 87580 [place] C EXAM 4 MEDICAL EMY CHEST [...] SONE ACETATE & PHOSPHATE 3 MG RADIOLOGI 88688 LUCY AYALA C EXAM 3 [facility] [...] EQUIPME EQUIPME FLWMTR HUMIDFR&M ASK CT THORAX 41879 TEX MA W/O 2 MEDICAL EMY CONTRAST IMAGING MATERIAL ASS 3D 70790 [place] RENDERING 2 MEDICAL EMY IMAGING W/INTERP& ASS POSTPROC DIFF WORK STATION PRTBLE E0431 MILDRED MILDRED GASEOUS 2 HOME HOME O2 SYS MEDICAL MEDICAL RENT; EQUIPME EQUIPME FLWMTR HUMIDFR&M ASK TOBACCO 15676 JMAES JAMES USE 2 DON DON CESSATION INTERMEDI ATE 3-10 MINUTES PRTBLE E0431 MILDRED MILDRED GASEOUS 2 HOME HOME O2 SYS MEDICAL MEDICAL RENT; EQUIPME EQUIPME FLWMTR HUMIDFR&M ASK PRTBLE E0431 MILDRED MILDRED GASEOUS 2 HOME HOME O2 SYS MEDICAL MEDICAL RENT; EQUIPME EQUIPME FLWMTR HUMIDFR&M ASK SPMTRY 18605 POLLOCK POLLOCK W/VC 2 JAM JAM EXPIRATOR Y ALFREDO W/WO MXML VOL VNTJ RADIOLOGI 93112 [facility] C EXAM 2 MEDICAL EMY CHEST 2 IMAGING VIEWS ASS FRONTAL&L ATERAL PRTBLE E0431 MILDRED MILDRED GASEOUS 2 HOME HOME O2 SYS MEDICAL MEDICAL RENT; EQUIPME EQUIPME FLWMTR HUMIDFR&M ASK CYTP 90953 PATHOLOGY PATHOLOGY SLCTV 2 & & CELL CYTOLOGY CYTOLOGY ENHANCEME LAB LAB NT INTERPJ XCPT C/V COLLECTIO 03392 LUCY AYALA N VENOUS 2 [facility] BLOOD INC INC VENIPUNCT URE CUL BACT 18318 LUCY AYALA XCPT 2 [facility] URINE INC INC BLOOD/STO OL AEROBIC ISOL CULTURE 73783 LUCY AYALA BACTERIAL 2 [facility] ANY INC INC SOURCE ANAEROBIC ISO&ID CULTURE 70524 LUCY AYALA TUBERCLE/ 2 [facility] OTH INC INC ACID-FAST BACILLI ANY ISOL TISS FRED 21755 LUCY AYALA SLIDE 2 [facility] SAMPS INC INC SKN/HR/NL S FNGI/ECTO PARASIT BLOOD 94066 LUCY AYALA GASES ANY 2 [facility] INC INC COMBINATI ON PH PCO2 PO2 CO2 HCO3 GLUCOSE 27878 LUCY AYALA BODY 2 [facility] FLUID INC INC OTHER THAN BLOOD IRON 74084 LUCY BOBON BINDING 2 [facility] CAPACITY INC INC LACTATE 44902 LUCYJOAN AYALA DEHYDROGE 2 [facility] [place] [address] LUCY AYALA IRON 2 [facility] INC INC CARBOXYHE 63759 LUCYJOAN AYALA MOGLOBIN 2 [facility] QUANTITAT INC INC ARCENIO RADIOLOGI 32398 LUCY AYALA C EXAM 2 [facility] CHEST 2 INC INC VIEWS FRONTAL&L ATERAL SMR PRIM 86071 LUCY AYALA SRC 2 [facility] GRAM/GIEM INC INC SA STAIN BCT FUNGI/VAHID L CT THORAX 02611 LUCY AYALA W/O 2 [facility] CONTRAST INC INC MATERIAL PROTEIN 28684 LUCY AYALA XCPT 2 [facility] REFRACTOM INC INC ETRY SERUM PLASMA/[place] [address] LUCY AYALA GUIDANCE 2 [facility] NEEDLE INC INC PLACEMENT CYANOCOBA 45968 LUCY AYALA BETTIE 2 [facility] VITAMIN INC INC B-12 NONINVASI 13226 LUCY AYALA VE 2 [facility] EAR/PULSE INC INC OXIMETRY SINGLE DETER CELL 62677 LUCY AYALA COUNT 2 [facility] MISC BODY INC INC FLUIDS W/DIFFERE NTIAL COUNT THORACENT 19711 LUCY AYALA ESIS 2 [facility] PUNCTURE INC INC PLEURAL CAVITY ASPIRATIO N ECG 86871 LUCY AYALA ROUTINE 2 [facility] ECG INC INC W/LEAST 12 LDS TRCG ONLY W/O I&R SPUTUM 81126 LUCY AYALA OBTAINING 2 [facility] SPEC INC INC AEROSOL INDUCED TX SPX 3D 76656 [place] RENDERING 2 MEDICAL EMY IMAGING W/INTERP& ASS POSTPROC DIFF WORK STATION ECG 95682 RUSH BEVERLY ROUTINE 2 JENNA JENNA ECG W/LEAST 12 LDS I&R ONLY CT THORAX 97279 LUCY AYALA W/O 2 [facility] CONTRAST INC INC MATERIAL PRTBLE E0431 MILDRED MILDRED GASEOUS 2 HOME HOME O2 SYS MEDICAL MEDICAL RENT; EQUIPME EQUIPME FLWMTR HUMIDFR&M ASK PRTBLE E0431 MILDRED MILDRED GASEOUS 2 HOME HOME O2 SYS MEDICAL MEDICAL RENT; EQUIPME EQUIPME FLWMTR HUMIDFR&M ASK SPMTRY 88609 LUCY AYALA W/VC 2 [facility] EXPIRATOR INC INC Y ALFREDO W/WO MXML VOL VNTJ PRTBLE E0431 MILDRED MILDRED GASEOUS 2 HOME HOME O2 SYS MEDICAL MEDICAL RENT; EQUIPME EQUIPME FLWMTR HUMIDFR&M ASK PRTBLE E0431 MILDRED MILDRED GASEOUS 2 HOME HOME O2 SYS MEDICAL MEDICAL RENT; EQUIPME EQUIPME FLWMTR HUMIDFR&M ASK RADIOLOGI 65318 ERIKA JAMES C EXAM 2 DON DON CHEST 2 VIEWS FRONTAL&L ATERAL CT THORAX 02590 [facility] W/CONTRAS IMAGING T ASS MATERIAL COMPREHEN 90178 COMBINED COMBINED SIVE 2 PHYSICIAN PHYSICIAN METABOLIC S LA S LA PANEL LIPID 01345 COMBINED COMBINED PANEL 2 PHYSICIAN PHYSICIAN S LA S LA BLOOD 75219 COMBINED COMBINED COUNT 2 PHYSICIAN PHYSICIAN COMPLETE S LA S LA AUTO&[place] [address] COMBINED COMBINED PROSTATE 2 PHYSICIAN PHYSICIAN SPECIFIC S LA S LA ANTIGEN TOTAL O2 CONC 1 E1390 MILDRED LEVY [place] 2 HOME HOME 85%/>02 MEDICAL MEDICAL CONC AT EQUIPME EQUIPME PRSC FLW RATE PRTBLE E0431 MILDRED MILDRED GASEOUS 2 HOME [...] 85%/>02 MEDICAL MEDICAL CONC AT EQUIPME EQUIPME [email or web address] FLW RATE PRTBLE E0431 MILDRED LEVY GASEOUS 1 HOME HOME O2 SYS MEDICAL MEDICAL RENT; EQUIPME EQUIPME FLWPRR HUMIDFR&M ASK PRTBLE E0431 MILDRED LEVY GASEOUS 1 HOME HOME O2 SYS MEDICAL MEDICAL RENT; EQUIPME EQUIPME FLWPRR HUMIDFR&M ASK O2 CONC 1 E1390 MILDRED [place] 1 HOME HOME 85%/>02 MEDICAL MEDICAL CONC AT EQUIPME EQUIPME [facility] [email or web address] FLW RATE O2 CONC 1 E1390 MILDRED VARMA 1 HOME HOME 85%/>02 MEDICAL MEDICAL CONC AT EQUIPME EQUIPME [facility] [[email or web address] FLW RATE PRTBLE E0431 MILDRED LEVY GASEOUS 1 HOME HOME O2 SYS MEDICAL MEDICAL RENT; EQUIPME EQUIPME FLWPRR HUMIDFR&M ASK PRTBLE E0431 MILDRED LEVY GASEOUS 1 HOME MED HOME MED O2 SYS EQUIP. L [facility]. L [facility]; [facility] O2 CONC 1 E1390 MILDRED LUIS [facility] 1 HOME MED HOME MED 85%/>02 EQUIP. L EQUIP. L CONC AT [facility] [[email or web address]] FLW RATE O2 CONC 1 E1390 MILDRED LUIS [facility] 1 HOME MED HOME MED 85%/>02 EQUIP. L EQUIP. L CONC AT [facility] [[email or web address]] FLW RATE PRTBLE E0431 MILDRED LEVY GASEOUS 1 HOME MED HOME MED O2 SYS EQUIP. L EQUIP. L RENT; FLWMTR HUMIDFR&M ASK PRTBLE E0431 MILDRED LEVY GASEOUS 1 HOME MED HOME MED O2 SYS EQUIP. L EQUIP. L RENT; FLWMTR HUMIDFR&M ASK O2 CONC 1 E1390 MILDRED LUIS [facility] 1 HOME MED HOME MED 85%/>02 EQUIP. L EQUIP. L CONC AT [facility] [[email or web address]] FLW RATE O2 CONC 1 E1390 MILDRED LUIS [facility] 1 HOME MED HOME MED 85%/>02 EQUIP. L EQUIP. L CONC AT [facility] [[email or web address]] FLW RATE PRTBLE E0431 MILDRED [place] GASEOUS 1 HOME MED HOME MED O2 SYS EQUIP. L EQUIP. L RENT; FLWPRR HUMIDFR&M ASK PRTBLE E0431 MILDRED [place] GASEOUS 1 HOME MED HOME MED O2 SYS EQUIP. L EQUIP. L RENT; [facility] HUMIDFR&M ASK O2 CONC 1 E1390 [place] 1 HOME MED HOME MED 85%/>02 EQUIP. L EQUIP. L CONC AT [facility] [[email or web address]] FLW RATE O2 CONC 1 E1390 [place]DRED [place] 0 HOME MED HOME MED 85%/>02 EQUIP. L EQUIP. L CONC AT [facility] [[email or web address]] FLW RATE PRTBLE E0431 MILDRED [place] GASEOUS 0 HOME MED HOME MED O2 SYS EQUIP. L EQUIP. L RENT; [facility] HUMIDFR&M ASK PRTBLE E0431 MILDRED [place] GASEOUS 0 HOME MED HOME MED O2 SYS EQUIP. L EQUIP. L RENT; [facility] HUMIDFR&M ASK O2 CONC 1 E1390 [place]ED [place] 0 HOME MED HOME MED 85%/>02 EQUIP. L EQUIP. L CONC AT [facility] [[email or web address]] FLW RATE O2 CONC 1 E1390 [place] 0 HOME MED HOME MED 85%/>02 EQUIP. L EQUIP. L CONC AT [facility] [[email or web address]] FLW RATE PRTBLE E0431 MIDLRED [place] GASEOUS 0 HOME MED HOME MED O2 SYS EQUIP. L EQUIP. L RENT; [facility] HUMIDFR&M ASK O2 CONC 1 E1390 [place]DRED [place] 0 HOME MED HOME MED 85%/>02 EQUIP. L EQUIP. L CONC AT [facility] [[email or web address]] FLW RATE PRTBLE E0431 MILDRED MILDRED GASEOUS 0 HOME MED HOME MED O2 SYS EQUIP. L EQUIP. L RENT; [facility] HUMIDFR&M ASK RADIOLOGI 76791 [facility] C 0 Y Y [facility] ON CHEST [facility] [facility] 44425 [facility] W/BRNCL 0 Y Y [facility] CYTP FINE 77439 [facility] NDL 0 Y Y ASPIRATE [facility] IMMT CYTOHIST STD DX 1ST CYTP EVAL 49608 [facility] FINE 0 Y Y NEEDLE [facility] ASPIRATE INTERP & [place] [address] [facility] SURG 0 Y Y PATHOLOGY [facility] GROSS&JESS ROSCOPIC EXAM CONCENTRA 68009 [facility] TION 0 Y Y INFECTIOU [facility] S AGENTS VIRUS 97817 [facility] TISS CUL 0 Y Y INOCULATI [facility] ON CYTOPATHI C EFFECT IADNA NOS 17526 [facility] 0 Y Y AMPLIFIED [facility] PROBE TQ EACH ORGANISM IAADI 06734 [facility] PNEUMOCUS 0 Y Y TIS [facility] CARINII SMR PRIM 79454 [facility] SRC 0 Y Y FLUORESCE [facility] NT&/AFS BCT FNGI PARASIT TISS FRED 85577 [facility] SLIDE 0 Y Y [facility] SKN/HR/NL S FNGI/ECTO PARASIT CULTURE 39932 [facility] TUBERCLE/ 0 Y Y OTH [facility] ACID-FAST BACILLI ANY ISOL CUL BACT 76858 [facility] XCPT 0 Y Y URINE [facility] BLOOD/STO OL AEROBIC ISOL VIRUS 78353 [facility] CENTRIFUG 0 Y Y E [facility] ID IMFLUOR STAIN EA CULTURE 21015 [facility] FUNGI 0 Y Y DEFINITIV [facility] E ID EACH ORGANISM YEAST SMR PRIM 17388 [facility] SRC 0 Y Y GRAM/GIEM [facility] SA STAIN BCT FUNGI/VAHID L INJECTION J3010 [facility] FENTANYL 0 Y Y CITRATE [facility] 0.1 MG CELL 24958 [facility] COUNT 0 Y Y MISC BODY [facility] FLUIDS W/DIFFERE NTIAL COUNT BRONCHOSC 97275 [facility] OPY 0 Y Y W/TRANSBR [facility] ONCHIAL LUNG BX 1 LOBE BRONCHOSC 53198 [facility] OPY 0 Y Y NEEDLE BX [facility] TRACHEA MAIN STEM&/BRO N INJECTION J2250 [facility] 0 Y Y MIDAZOLAM [facility] HCL PER 1 MG CULTURE 42160 [facility] FNGI 0 Y Y MOLD/YEAS [facility] T PRSMPTV OTH XCPT BLOOD SPECIAL 66686 [facility] STAIN 0 Y Y GROUP 1 [facility] MICROORGA NISMS I&R O2 CONC 1 E1390 [place] 0 HOME MED HOME MED 85%/>02 EQUIP. L EQUIP. L CONC AT [facility] [email or web address] FLW RATE PRTBLE E0431 MILDRED LEVY GASEOUS 0 HOME MED HOME MED O2 SYS EQUIP. L EQUIP. L RENT; FLWMTR HUMIDFR&M ASK PHLEBOTOM 42670 COMBINED COMBINED Y 0 PHYSICIAN PHYSICIAN THERAPEUT S LA S LA IC SEPARATE PROCEDURE DUP-SCAN 22779 [place] [facility] XTR VEINS 0 MEDICAL EMY COMPLETE IMAGING ASS BILATERAL STUDY RADEX 81045 [place] ESOPHAGUS 0 MEDICAL EMY IMAGING ASS BLOOD 31355 LUCY AYALA COUNT 0 [facility] COMPLETE INC INC AUTO&AUTO DIFRNTL WBC BRNCDILAT 71546 LUCY AYALA RSPSE 0 [facility] SPMTRY INC INC PRE&POST- BRNCDILAT ADMN PULMONARY 12691 [place] POLLOCK STRESS 0 MEDICAL JAM TESTING SERV SIMPLE FOUNDATIO COMPREHEN 57594 LUCY AYALA SIVE 0 [facility] METABOLIC INC INC PANEL COLLECTIO 72346 LUCY AYALA N VENOUS 0 [facility] BLOOD INC INC VENIPUNCT URE COLLECTIO 62127 COMBINED COMBINED N VENOUS 0 PHYSICIAN PHYSICIAN BLOOD S LAB S LAB VENIPUNCT URE COMPREHEN 81918 COMBINED COMBINED SIVE 0 PHYSICIAN PHYSICIAN METABOLIC S LAB S LAB PANEL CT THORAX 13508 [place] NELLY W/O 0 MEDICAL KEY CONTRAST IMAGING MATERIAL ASS 3D 07342 [place] NELLY RENDERING 0 MEDICAL KEY IMAGING W/INTERP& ASS POSTPROC DIFF WORK STATION RADIOLOGI 22513 [place] Wagner EXAM 0 MEDICAL EMY CHEST 2 IMAGING VIEWS ASS FRONTAL&L ATERAL O2 CONC 1 E1390 MIL[place]ED [place] 0 HOME MED HOME MED 85%/>02 EQUIP. EQUIP. CONC AT [facility] FLW RATE PRTBLE E0431 MILDRED MILDRED GASEOUS 0 HOME MED HOME MED O2 SYS EQUIP. EQUIP. RENT; [employer] FLWMTR HUMIDFR&M ASK PRTBLE E0431 MILDRED MILDRED GASEOUS 0 HOME MED HOME MED O2 SYS EQUIP. EQUIP. RENT; [employer] FLWMTR HUMIDFR&M ASK O2 CONC 1 E1390 MILDRED [place] 0 HOME MED HOME MED 85%/>02 EQUIP. EQUIP. CONC AT [facility] FLW RATE RADIOLOGI 81353 ERIKA JAMES C EXAM 0 DON R DON R CHEST 2 VIEWS FRONTAL&L ATERAL INJECTION J1940 ERIKA JAMES, 0 DON R DON R FUROSEMID E UP TO 20 MG ECG 70162 ERIKA JAMES, ROUTINE 0 DON R DON R ECG W/LEAST 12 LDS W/I&R RADIOLOGI 51749 ERIKA JAMES, C 0 DON R DON R EXAMINATI ON CHEST [facility] 07889 ERIKA JAMES, DISCHARGE 0 DON R DON R DAY MANAGEMEN T 30 MIN/< RADIOLOGI 23847 [place] Kristy VILLEGAS EXAM 0 MEDICAL JANE P CHEST 2 IMAGING VIEWS ASSOCIATE FRONTAL&L S ATERAL SBSQ 86790 [facility] DON R DON R CARE/DAY 25 MINUTES [facility] 86002 [facility] DON R DON R CARE/DAY 25 MINUTES SBS 75596 JAMES, [facility] 0 DON R DON R CARE/DAY 25 MINUTES [facility] 32456 JAMES, [facility] 0 DON R DON R CARE/DAY 25 MINUTES 3D 50970 [place], RENDERING 0 MEDICAL SHASHI IMAGING W/INTERP& ASSOCIATE POSTPROC S DIFF WORK STATION CT THORAX 66499 [place], 0 MEDICAL SHASHI W/CONTRAS IMAGING T ASSOCIATE MATERIAL S SBSQ 29299 [facility] 0 DON R DON R CARE/DAY [address] [facility] 0 DON R DON R CARE/DAY 50 MINUTES RADIOLOGI 16164 [place], C EXAM 0 MEDICAL SHASHI CHEST 2 IMAGING VIEWS ASSOCIATE FRONTAL&L S ATERAL RADIOLOGI 38354 ERIKA JAMES 0 DON R DON R EXAMINATI ON CHEST S[facility] FRONTAL OPHTH 52625 [facility] 9 DONTE A DONTE A XM&EVAL COMPRHNSV ESTAB PT 1/> SCANNING 55158 RETINA & NINI, OPHTHALMI 9 VITREOUS CALLIE W C IMAGING ASSOCIATE S O POSTERIOR SGM UNI OPHTH 28352 RETINA & NINI, MEDICAL 9 VITREOUS CALLIE W XM&EVAL ASSOCIATE INTERMEDI S O ATE ESTAB PT INJECTION J1040 ERIKA JAMES, 8 DON R DON R METHYLPRE DNISOLONE ACETATE 80 MG OPHTH 74078 RETINA & NINI, MEDICAL 8 VITREOUS CALLIE W XM&EVAL ASSOCIATE INTERMEDI S O ATE ESTAB PT SCANNING 99035 RETINA & NINI, OPHTHALMI 8 VITREOUS CALLIE W C IMAGING ASSOCIATE S O POSTERIOR SGM UNI INJECTION J1040 ERIKA JAMES, 8 DON R DON R METHYLPRE DNISOLONE ACETATE 80 MG OPHTH 50244 [facility] 8 DONTE A DONTE A XM&EVAL COMPRHNSV ESTAB PT 1/> SCANNING 85873 RETINA & NINI, OPHTHALMI 8 VITREOUS CALLIE W C IMAGING ASSOCIATE S O POSTERIOR SGM UNI OPHTH 49961 RETINA & NINI, MEDICAL 8 VITREOUS CALLIE W XM&EVAL ASSOCIATE INTERMEDI S O ATE ESTAB PT INJECTION J1040 ERIKA JAMES 8 DON R KRISH R METHYLPRE DNISOLONE ACETATE 80 MG RADIOLOGI 89645 ERIKA JAMES C EXAM 8 DON R KRISH R CHEST 2 VIEWS FRONTAL&L ATERAL OPHTH 67151 RETINA & RETINA & MEDICAL 8 VITREOUS VITREOUS XM&EVAL ASSOCIATE ASSOCIATE INTERMEDI S O S O ATE ESTAB PT SCANNING 25006 RETINA & RETINA & OPHTHALMI 8 VITREOUS VITREOUS C IMAGING ASSOCIATE ASSOCIATE S O S O POSTERIOR SGM UNI SCANNING 59176 RETINA & RETINA & OPHTHALMI 8 VITREOUS VITREOUS C IMAGING ASSOCIATE ASSOCIATE S O S O POSTERIOR SGM UNI OPHTH 06573 RETINA & RETINA & MEDICAL 8 VITREOUS VITREOUS XM&EVAL ASSOCIATE ASSOCIATE INTERMEDI S O S O ATE ESTAB PT INJECTION J1100 ERIKA JAMES 8 DON R KRISH R DEXAMETHO SONE SODIUM PHOSPHATE 1 MG Encounters Encounter Start End Date Code Location Performer Type Date OFFICE 61149 [facility] OUTPATIEN 7 7 PHYSICIAN T VISIT S GROUP 25 MINUTES OFFICE 67112 [facility] OUTPATIEN 7 7 PHYSICIAN T VISIT S GROUP 40 MINUTES OFFICE 37173 A Kristy ROY OUTPATIEN 7 7 PILAR PLEITEZ T VISIT [facility] 15 MINUTES OFFICE 41428 [facility] 7 Y OF [place] T VISIT [place] 25 HOSPI MINUTES OFFICE 68721 A Kristy ROY OUTPATIEN 7 7 PILAR PLEITE[place] T VISIT [facility] 15 MINUTES HOSPITAL LUCY - 7 7 [facility] OFFICE 85037 A Kristy ROY OUTPATIEN 7 7 P[place]AR [place]LEITE[place] T VISIT [facility] 15 MINUTES OFFICE 27611 A Kristy ROY OUTPATIEN 7 7 [place] T VISIT PSC 15 MINUTES OFFICE 22322 A Kristy ROY OUTPATIEN 7 7 [place] T VISIT [facility] 15 MINUTES HOSPITAL LUCY - 6 6 [facility] T OFFICE 69914 [place] [facility] OUTPATIEN 6 6 MEDICAL JAM T VISIT SERV 25 FOUNDATIO MINUTES N OFFICE 87188 [facility] ALLRAN JR OUTPATIEN 6 6 PHYSICIAN RITA T VISIT S GROUP 10 MINUTES HOSPITAL LUCY - 6 6 [facility] OUTPATI[facility] INC T OFFICE 62126 LUCY EVAN OUTPATIEN 6 6 [facility] T VISIT HOSPITAL 10 P MINUTES OFFICE 57405 Darnell ROY OUTPATIEN 6 6 PILAR PLEITEZ T VISIT PSC 15 MINUTES OFFICE 24723 ELIO POLLOCK OUTPATIEN 6 6 MEDICAL JAM T VISIT SERV 15 FOUNDATIO MINUTES N OFFICE 63268 [facility] ALLRAN JR OUTPATIEN 6 6 PHYSICIAN RITA T VISIT S GROUP 15 MINUTES OFFICE 95037 LUCY EVAN OUTPATIEN 6 6 [facility] T [facility] 20 HOSPITAL MINUTES P HOSPITAL LUCY - 6 6 [facility] OUTPATIEN INC T OFFICE 29117 [facility] ALLRAN JR OUTPATIEN 6 6 PHYSICIAN RITA T NEW 45 S GROUP MINUTES HOSPITAL LUCY - 6 6 [facility] OUTPATIEN INC T OFFICE 60947 [place] OUTPATIEN 6 6 MEDICAL JAM T VISIT SERV 25 FOUNDATIO MINUTES N OFFICE 05446 Darnell ROY OUTPATIEN 6 6 PILAR PLEITEZ T VISIT PSC 15 MINUTES OFFICE 25485 [place] MARIS OUTPATIEN 6 6 MEDICAL JAM T VISIT SERV 25 FOUNDATIO MINUTES N HOSPITAL LUCY - 6 6 [facility] OUTPATIEN INC T EMERGENCY 42778 [facility] DEPT 6 6 Y OF MADALYN VISIT [facility] HOSPI SEVERITY& THREAT FUN OFFICE 38761 A Kristy ROY JENNA OUTPATIEN 6 6 P[place]AR [place] T VISIT PSC 15 MINUTES OFFICE 23020 A C KIRILL JENNA OUTPATIEN 6 6 PILAR PLEITE[place] T VISIT PSC 15 MINUTES HOSPITAL LUCY - 6 6 MEM [facility] INPATIENT [facility] OFFICE 61497 [place] OUTPATIEN 6 6 MEDICAL JAM T VISIT SERV 40 FOUNDATIO MINUTES [facility] LUCY - 6 6 [facility] OUTPATIEN [facility] OFFICE 39651 [place] OUTPATIEN 6 6 MEDICAL T VISIT SERV 25 FOUNDATIO MINUTES OFFICE 74027 [place] OUTPATIEN 6 6 MEDICAL JAM T VISIT SERV 15 FOUNDATIO MINUTES HOSPITAL LUCY - 5 5 [facility] OUTPATIEN [facility] LUCY - 5 5 [facility] OUTPATI[facility] H[facility]PITAL LUCY - 5 5 [facility] OUTPATIEN [facility] OFFICE 81025 A C FIELD AMB OUTPATIEN 5 5 PILAR PLEITEZ T VISIT PSC 15 MINUTES OFFICE 67596 A C FIELD AMB OUTPATIEN 4 4 PILAR [place]LEITE[place] T VISIT PSC 15 MINUTES HOSPITAL LUCY - 4 4 [facility] OUTPATIEN [facility] ULCY - 4 4 [facility] OUTPATIEN [facility] LUCY [facility] 4 4 [facility] OUTPATIEN [facility] LUCY [facility] 4 4 [facility] OUTPATIEN [facility] LUCY - 4 4 [facility]PATI[facility] LUCY - 4 4 [facility] LUCY - 4 4 [facility] OUTPATIEN [facility] OFFICE 75790 FIELD AMB FIELD AMB OUTPATIEN 4 4 T VISIT 15 MINUTES OFFICE 61084 FIELD AMB FIELD AMB OUTPATIEN 3 3 T VISIT 15 MINUTES OFFICE 48115 A C FIELD AMB OUTPATIEN 3 3 PILAR PLEITEZ NEW 30 PSC MINUTES OFFICE 15644 JAMES JAMES OUTPATIEN 3 3 DON DON T VISIT 15 MINUTES OFFICE 31374 JAMES JAMES OUTPATIEN 3 3 DON DON T VISIT 15 MINUTES HOSPITAL LUCY - 3 3 [facility] OUT[facility] H[facility]PITAL LUCY - 2 2 [facility] OFFICE 17964 JAMES [facility] OUT[facility] 2 2 [facility] DON T VISIT 15 MINUTES [facility]UC[facility] - 2 2 [facility]UC[facility] - 2 2 [facility] - 2 2 [facility] LUC[facility] - 2 2 [facility] OFFICE [id number] [facility] OUTPATIEN 2 2 DON DON T VISIT 15 MINUTES OFFICE [id number] [facility] OUTPATIEN 1 1 DON DON T VISIT 15 MINUTES OFFICE [id number] [facility] OUTPATIEN 1 1 DON DON T VISIT 15 MINUTES OFFICE [id number] [facility] OUTPATIEN 1 1 DON DON T VISIT 15 MINUTES OFFICE [id number] [facility] OUTPATIEN 1 1 DON DON T VISIT 15 MINUTES HOSPITAL UNIVERSIT - 0 0 [facility]UC[facility] - 0 0 [facility] - 0 0 [facility] LUCY - 0 0 [facility] LUCY - 0 0 [facility] OFFICE [id number] ERIKA JAMES OUTPATIEN 0 0 DON R DON R T VISIT 15 MINUTES OFFICE [id number] E[facility] OUTPATIEN 0 0 DON R DON R T VISIT 25 MINUTES OFFICE [id number] E[facility]KA JAMES OUTPATIEN 0 0 DON R DON R T VISIT 15 MINUTES OFFICE [id number] ERIKA JAMES OUTPATIEN 8 8 DON R DON R T VISIT 15 MINUTES OFFICE [id number] ERIKA JAMES OUTPATIEN 8 8 DON R DON R T VISIT 15 MINUTES OFFICE [id number] E[facility]KA JAMES OUTPATIEN 8 8 DON R DON R T VISIT 15 MINUTES OFFICE [id number] [facility] OUTPATIEN 8 8 DON R DON R T VISIT 15 MINUTES OFFICE [id number] [facility] JAMES OUTPATIEN 8 8 DON R DON R T VISIT 15 MINUTES
--- OUTSIDE RECORDS SUMMARY | 2016-11-15 14:18 | External Medical Summary Rpt ---
Author Author , RANDALL Organization RANDALL Address Unknown Phone [email or web address] Care Team Providers Care Hog Scalder Name Role Phone A Kristy QUEZADA MD [...] Unavailable [facility] Unavailable Unavailable SERVICE, [facility] Unavailable Unavailable SERVICE, [facility] Unavailable Unavailable [place], [...] Unavailable Unavailable INC, [facility] Unavailable Unavailable HOSPITAL P, [facility] DONTE RUIZ, Unavailable Unavailable DONTE RUIZ [facility], Unavailable Unavailable [facility] ARMENDARIZ JENNA, ARMENDARIZ JENNA [...] JR DWI, GLENN Unavailable Unavailable JR DWI [facility] Unavailable Unavailable INTERNAL MED, [facility] JAMES CON, JAMES CON Unavailable Unavailable POLLOCK, POLLOCK Unavailable Unavailable POLLOCK JAM, Unavailable Unavailable POLLOCK JAM POLLOCK JAM, Unavailable Unavailable POLLOCK JAM NELLY KEY, NELLY Unavailable Unavailable KEY NELLY, JANE P, Unavailable Unavailable [facility] Unavailable Unavailable [facility], [facility] Unavailable Unavailable [facility] LORI BET, LOIR BET Unavailable Unavailable KIRILL, KIRILL Unavailable Unavailable [...] PHARM #[id number] [facility] Unavailable Unavailable [id number] # [id number], [facility] [id number] # [id number] SHANELL CAR, Unavailable Unavailable SHANELL [...] JANENE Unavailable Unavailable OTTO BOOTH Unavailable Unavailable [facility], Unavailable Unavailable [facility][1] Unavailable [place] [facility] HIEU FRANCO, HIEU Unavailable Unavailable [facility], Unavailable [facility], Unavailable Unavailable [facility] MARINA TIFFANI, Unavailable Unavailable MARINA TIFFANI Purpose Continuity of Care Document - 04-25-2007 through 2016 Problems Code Diagnosis DOS Provider Status E785 HYPERLIPIDE 10-04-2016 [facility] UNSPECIFIED GROUP I119 HYPERTENSIV 10-04-2016 [facility] E HEART PHYSICIANS DISEASE GROUP WITHOUT HEART FAILURE I2510 [place] 10-04-2016 [facility] CORONARY PHYSICIANS ARTERY W/O GROUP ANGINA PECTORIS 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 J449 CHRONIC 10-04-2016 [facility] OBSTRUCTIVE PHYSICIANS PULMONARY GROUP DISEASE UNS R0600 DYSPNEA 10-04-2016 [facility] UNSPECIFIED PHYSICIANS GROUP R0602 SHORTNESS 09-14-2016 [facility] R918 OTHER 09-14-2016 [place] NONSPECIFIC MEDICAL ABNORMAL IMAGING ASS FINDING OF LUNG FIELD 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 09-11-2016 [facility] BRONCHITIS LLC J410 SIMPLE 09-04-2016 A Kristy GARLAND MD PSC BRONCHITIS R938 ABNORMAL 09-04-2016 [facility] FIND ON DX PHYSICIANS IMAGING OTH GROUP SPEC BODY STRCT I200 UNSTABLE 08-27-2016 [facility] ANGINA PHYSICIANS GROUP I10 ESSENTIAL 08-25-2016 [facility] P N [id number] [place] [place] 08-25-2016 [facility] W[facility] P ANGINA PECTORIS I272 OTHER 08-25-2016 [facility] R079 CHEST PAIN 08-25-2016 [place] UNSPECIFIED MEDICAL IMAGING ASS I4891 UNSPECIFIED 07-03-2016 [facility] HOME FIBRILLATIO MEDICAL N EQUIPME I482 CHRONIC 06-14-2016 A Kristy QUEZADA [facility]IAL 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 FIBRILLATIO N I5020 UNSPECIFIED 05-10-2016 A Kristy QUEZADA SYSTOLIC [facility] CONGESTIVE HEART FAILURE C9110 CHRONIC 01-11-2016 [place] [facility] 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 R634 ABNORMAL 01-11-2016 [facility] R1110 VOMITING 01-09-2016 [facility] UNSPECIFIED PHYSICIANS GROUP K828 OTHER 01-02-2016 [place] SPECIFIED MEDICAL DISEASES OF IMAGING ASS GALLBLADDER R630 ANOREXIA 01-02-2016 [place] [facility] K921 MELENA 11-07-2015 [facility] K5710 DIVERTICULO 11-03-2015 [place] SIS SM MEDICAL INTEST W/O IMAGING ASS PERF/ABSC W/O BLEED R195 OTHER FECAL 11-03-2015 [place] [facility] ABNORMALITI IMAGING ASS ES H99145 LYMPHOCYTOS 10-26-2015 [facility] IS PATHOLOGY SYMPTOMATIC LAB NETW J690 PNEUMONITIS 10-26-2015 [place] [facility] DUE TO SERV INHALATION [facility] OF FOOD AND VOMIT Z09 ENC F/U 10-20-2015 A Kristy QUEZADA EXAM AFTR PSC CMPL TX OTH THAN MALIG NEOPLSM B370 CANDIDAL 10-19-2015 [place] [facility] STOMATITIS SERV [facility] R112 NAUSEA WITH 10-19-2015 [place] [facility] VOMITING SERV UNSPECIFIED FOUNDATION I509 HEART 10-15-2015 [facility] FAILURE HOME UNSPECIFIED MEDICAL EQUIPME R531 WEAKNESS 09-20-2015 [facility] 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 [place] [facility] R BLOCK SERV [facility] R9431 ABNORMAL 09-18-2015 [place] [facility] ELECTROCARD SERV IOGRAM FOUND[facility] I4510 UNSPECIFIED 09-15-2015 [place] [facility] RIGHT SERV BUNDLE-BRAN FOUNDATION CH BLOCK R001 BRADYCARDIA 09-15-2015 [place] [facility] SERV UNSPECIFIED FOUNDATION B965 PSEUDOMONAS 09-14-2015 [place] [facility] CAUSE OF SERV DZ [facility] CLASSIFIED ELSEWHERE J9600 ACUTE 09-14-2015 [place] [facility] RESPIRATORY SERV FAIL UNS FOUNDATION HYPOXIA/HYP ERCAPNIA J9811 ATELECTASIS 09-14-2015 [place] [facility] SERV [facility] W15004 ENCOUNTER 09-14-2015 [place] [facility] SURG SERV AFTERCARE [facility] FLW SURG DIGESTIVE SYS Z049 ENCOUNTER 09-13-2015 [place] [facility] EXAMINATION SERV &OBSERVATIO FOUNDATION N FOR UNS REASON K5900 CONSTIPATIO 09-12-2015 [place] [facility] N SERV UNSPECIFIED [facility] R140 ABDOMINAL 09-10-2015 [place] [facility] DISTENSION SERV GASEOUS [facility] R0989 OTH SPEC SX 09-09-2015 [place] [facility] & SIGNS SERV INVLV THE FOUNDATION CIRC & RESP SYS A419 SEPSIS 09-08-2015 [place] [facility] UNSPECIFIED SERV ORGANISM FOUNDATION E873 ALKALOSIS 09-08-2015 [place] [facility] E876 HYPOKALEMIA 09-08-2015 [place] [facility] J90 PLEURAL 09-08-2015 [place] [facility] EFFUSION SERV NOT FOUNDATION ELSEWHERE CLASSIFIED J9620 ACUTE 09-08-2015 [place] [facility] CHRONIC SERV RESP FAIL FOUNDATION UNS HYPOXIA/HYP ERCAPNIA J984 OTHER 09-08-2015 [place] [facility] DISORDERS SERV OF LUNG FOUNDATION R109 UNSPECIFIED 09-08-2015 [place] [facility] ABDOMINAL SERV PAIN FOUNDATION Z4682 ENCOUNTER 09-08-2015 [facility] ADJUST HOSPI NON-VASCULA R CATHETER 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-07-2015 [place] [facility] DISORDER SERV UNSPECIFIED FOUNDATION I517 CARDIOMEGAL 09-07-2015 [place] [facility] Y SERV [facility] I5189 OTHER 09-07-2015 [place] [facility] ILL-DEFINED SERV HEART [facility] DISEASES R0902 HYPOXEMIA 09-06-2015 [place] [facility] SERV [facility] R0689 OTHER 09-02-2015 [place] [facility] ABNORMALITI SERV ES OF FOUNDATION BREATHING J942 HEMOTHORAX 08-30-2015 [place] [facility] SERV [facility] J948 OTHER 08-30-2015 [place] [facility] SPECIFIED SERV PLEURAL FOUNDATION CONDITIONS L538 OTHER 08-30-2015 [place] [facility] SPECIFIED SERV ERYTHEMATOU FOUNDATION S CONDITIONS Z9889 OTHER 08-30-2015 [place] [facility] SPECIFIED SERV POSTPROCEDU FOUNDATION RAL STATES 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 K4030 UNILAT 08-25-2015 [facility]AL [facility] NGUYEN W/OBST HOSPI W/O GANGRN NOT RECUR K4040 UNILAT 08-25-2015 [place] [facility] INGUINAL SERV NGUYEN FOUNDATION W/GANGREN NOT SPEC RECUR Z7901 BUSINESS CONSULT 08-25-2015 [place] [facility] CURRENT USE SERV OF FOUNDATION ANTICOAGULA NTS B26963 ELEVATED 08-24-2015 [facility] BLOOD [facility] P UNSPECIFIED K4090 UNILAT 08-24-2015 [place] [facility] INGUINAL SERV NGUYEN W/O FOUNDATION OBST/GANGRE N NOT RECUR K5660 UNSPECIFIED 08-24-2015 [facility] INTESTINAL AMBULANCE SERVICE OBSTRUCTION R1031 RIGHT LOWER 08-24-2015 [facility] PAIN HOSPI I02517 PERSONAL 08-24-2015 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 J439 EMPHYSEMA 08-03-2015 [facility] INTERNAL MED R002 PALPITATION 08-03-2015 [place] [facility] S SERV [facility] R031 NONSPECIFIC 08-03-2015 [place] [facility] LOW SERV BLOOD-PRESS [facility]ATION URE READING R42 DIZZINESS 08-03-2015 [place] [facility] AND SERV GIDDINESS FOUNDATION 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 08-03-2015 [facility] SUPPLEMENTA INTERNAL L OXYGEN MED J189 PNEUMONIA 07-13-2015 [facility] UNSPECIFIED [facility] ORGANISM INC Z7722 CONTACT W/ 07-13-2015 [place] [facility] & SUSPECTED SERV EXPOS [facility] ENVIR TOBACCO SMOKE J40 BRONCHITIS 03-25-2015 [place] NOT MEDICAL SPECIFIED IMAGING ASS ACUTE OR CHRONIC J929 PLEURAL 02-02-2015 [place] PLAQUE MEDICAL WITHOUT IMAGING ASS ASBESTOS R091 PLEURISY 01-21-2015 [place] [facility] 4280 CONGESTIVE 01-14-2015 [facility] HOME FAILURE MEDICAL UNSPECIFIED EQUIPME 25695 OBSTRUCTIVE 01-14-2015 [facility] WITHOUT EXACERBAT 496 CHRONIC 01-14-[address] [facility] [address] [facility] OBSTRUCTION MEDICAL NEC EQUIPME 31376 NUCLEAR 12-28-2014 [facility] SCLEROSIS JAMILAH 93207 OBST 09-06-2014 A Kristy QUEZADA CHRONIC PSC BRONCHITIS W/ACUTE BRONCHITIS 30162 LOSS OF 09-06-2014 A Kristy QUEZADA WEIGHT PSC 33310 OTHER CHEST 09-06-2014 A Krisyt QUEZADA PAIN PSC 57660 OBSTRUCTIVE 09-05-2014 [facility] SLEEP HOME APNEA MEDICAL EQUIPME 7242 LUMBAGO 04-01-2014 A Kristy QUEZADA MD PSC V0382 NEED PROPH 04-01-2014 A Kristy QUEZADA VACCINATION PSC AGAINST STREP PNEUMONE 09374 ATRIAL 01-13-2014 [facility] FIBRILLATIO [facility] N INC 80712 REFLUX 01-13-2014 [facility] ESOPHAGITIS [facility] INC 47223 UNS 01-13-2014 [facility] GASTRITIS&G [facility] ASTRODUODIT INC IS W/O MENTION HEMORR 75918 ABDOMINAL 01-13-2014 [facility] PAIN, [facility] GENERALIZED INC V5869 LONG-TERM 01-13-2014 [facility] (CURRENT) [facility] USE OF INC OTHER MEDICATIONS 72218 CHEST PAIN 11-24-2013 [facility] UNSPECIFIED [facility] INC 5110 PLEURISY 10-29-2013 [place] WITHOUT MEDICAL MENTION IMAGING ASS EFFUS/CURRE NT TB 7862 COUGH 10-29-2013 [place] [facility] 88007 INSOMNIA 12-16-2012 A Kristy QUEZADA UNSPECIFIED PSC 75276 OTHER 12-16-2012 A Kristy QUEZADA MALAISE AND PSC FATIGUE 29007 FEVER 05-23-2012 J[facility] UNSPECIFIED DON 21585 WHEEZING 05-23-2012 JAMES DON 1120 CANDIDIASIS 05-21-2012 JAMES OF MOUTH DON 84305 OTHER 05-21-2012 FRANC[facility] DISEASES OF EMY LUNG NOT ELSEWHERE CLASSIFIED 4940 BRONCHIECTA 01-28-2012 [place] SIS WITHOUT MEDICAL ACUTE IMAGING ASS EXACERBATIO N 5119 UNSPECIFIED 01-28-2012 [place] PLEURAL MEDICAL EFFUSION IMAGING ASS 36786 OTHER 01-28-2012 [facility] NONSPECIFIC [facility] ABNORMAL INC FINDING OF LUNG FIELD 47984 OSTEOARTHRO 01-02-2012 E[facility] S INVLV MX DON SITES BUT [place] SPEC GEN 130[address] OBSTRUCTIVE 11-12-2011 [facility] CHRONIC [facility] BRONCHITIS INC WITH EXACERBATIO N 23016 ESOPHAGEAL 11-12-2011 [facility] REFLUX [facility] INC 2859 UNSPECIFIED 10-05-2011 [facility] ANEMIA [facility] 5180 PULMONARY 10-05-2011 [place] COLLAPSE MEDICAL IMAGING ASS 486 PNEUMONIA, 09-28-2011 [place] ORGANISM MEDICAL UNSPECIFIED IMAGING ASS 5070 PNEUMONITIS 09-28-2011 [facility] DUE TO JAM INHALATION OF FOOD OR VOMITUS 30809 SHORTNESS 09-28-2011 [facility] OF BREATH [facility] INC 72807 ABDOMINAL 09-28-2011 [facility] PAIN, [facility] EPIGASTRIC INC V1261 PERSONAL 09-28-2011 [facility] HISTORY JAM PNEUMONIA RECURRENT 35348 PNEUMONIA 06-08-2011 JAMES DUE TO DON OTHER SPECIFIED BACTERIA 2724 OTHER AND 05-11-2011 [facility]BIN[facility] UNSPECIFIED PHYSICIANS [place] HYPERLIPIDE [place] 2768 HYPOPOTASSE 05-11-2011 [facility] [place] PHYSICIANS [place] 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 6019 UNSPECIFIED 05-11-2011 [place] [address] PAIN IN 05-11-2011 COMBINED JOINT, PHYSICIANS MULTIPLE LA SITES 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 5183 PULMONARY 11-28-2009 [facility] A 69457 ACUTE 11-28-2009 [place] [facility] RESPIRATORY SERV FAILURE FOUNDATIO 7856 ENLARGEMENT 11-28-2009 [facility] NODES 7931 NONSPEC 11-28-2009 [place] MEDICAL FIND RAD SERV OTH EXAM FOUNDATIO BODY STRUCT LUNG FIELD V1582 PERS HX 11-28-2009 [facility] TOBACCO USE [facility] PRESENTING HAZAR[facility] V7282 PRE-OPERATI 11-28-2009 [place] MEDICAL VE SERV RESPIRATORY FOUNDATIO EXAMINATION 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 44681 DYSPHAGIA 11-18-2009 [place] UNSPECIFIED MEDICAL IMAGING ASS 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 53061 OSTEOARTHRO 08-23-2009 [facility] SIS UNSPEC DON R WHETHER GEN/LOC LOWER LEG 40611 OSTEOARTHRO 08-23-2009 [facility] S UNSPEC DON R GEN/LOC OTH SPEC SITES 65860 MACULAR 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 RUIZ A N OF RETINA UNSPECIFIED 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 07-20-2008 RET[place] & 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 19879 EXUDATIVE 07-20-2008 [facility] & SENILE VITREOUS MACULAR ASSOCIATES DEGENERATIO O N OF RETINA 13072 CRYSTALLINE 07-20-2008 [place] & DEPOSITS VITREOUS IN VITREOUS ASSOCIATES O 4610 ACUTE 02-27-2008 JAMES, MAXILLARY DON R SINUSITIS 4659 ACUTE URIS 02-27-2008 [facility], OF DON R UNSPECIFIED SITE 8472 LUMBAR 11-14-2007 JAMES, SPRAIN AND DON R STRAIN 4660 ACUTE 08-02-2007 JAMES, BRONCHITIS DON R 4871 INFLUENZA 07-04-2007 ERIKA, WITH OTHER DON R RESPIRATORY MANIFESTATI ONS 55618 PAIN IN 04-25-2007 JAMES, JOINT, DON R SHOULDER REGION 62323 UNSPECIFIED 04-25-2007 JAMES, SYNOVITIS DON R AND [...] ET 03 93 8 # [address] 00 04 04 00 12 6 RI [...] Procedure DOS Code Location Performer Comment ECG 18195 [facility] ROUTINE 7 PHYSICIAN ECG S GROUP W/LEAST 12 LDS I&R ONLY CT THORAX [address] [place] [address] MEDICAL W/CONTRAS IMAGING T ASS MATERIAL ADMN SET A7003 YOUR YOUR SM VOL 7 PHARMACY PHARMACY NONFILTR [employer] PNEUMAT NEBULIZR DISPBL ALBUTEROL J7620 YOUR YOUR TO 2.5 7 PHARMACY PHARMACY [employer] [facility] IPRATROPI UM BROM TO 0.5 MG ALBUTEROL J7620 A C A C TO 2.5 7 PILAR QUEZADA MD MG & PSC PSC IPRATROPI UM BROM TO 0.5 MG ECG 05769 [facility] ROUTINE 7 PHYSICIAN ECG S GROUP W/LEAST 12 LDS I&R ONLY R & L HRT 19132 [facility] CATH 7 PHYSICIAN WINJX HRT S GROUP ART& L VENTR IMG ECG 13482 [facility] ROUTINE 7 [facility] W/LEAST P 12 LDS I&R ONLY RADIOLOGI 94636 [facility] C 7 MEDICAL EXAMINATI IMAGING ON CHEST ASS SINGLE VIEW FRONTAL ADMN SET A7003 YOUR YOUR SM VOL 7 PHARMACY PHARMACY NONFILTR [facility] PNEUMAT NEBULIZR DISPBL ALBUTEROL J7620 YOUR [...] AT EQUIPME EQUIPME PRSC FLW RATE SBSQ 11987 [facility] 7 MEDICAL CARE/DAY SERV 25 FOUNDATIO MINUTES N RADIOLOGI 63509 [facility] C EXAM 7 MEDICAL MEDICAL CHEST 2 [...] MG O2 CONC 1 E1390 [facility] 6 HOME HOME 85%/>02 MEDICAL MEDICAL CONC AT [facility] G0463 [facility] AYALA OUTPATIEN 6 MEM H[facility] T CLIN INC INC VISIT ASSESS & MGMT PT O2 CONC 1 E1390 [facility] 6 HOME HOME 85%/>02 MEDICAL MEDICAL CONC AT [facility] FLW RATE COMPREHEN 27770 [facility] A[facility]AL[facility] SIVE 6 MEM HOSP [facility] METABOLIC INC INC PANEL LOCM Q9967 [facility] AYALA [phone] [facility] MG/ML INC INC IODINE CONCENTRA TION PER ML COLLECTIO 47609 [facility] A[facility]ALA N VENOUS 6 MEM H[facility] BLOOD INC INC VENIPUNCT URE BLOOD 46188 [facility] A[facility]AL[facility] COUNT 6 MEM H[facility] COMPLETE INC INC AUTO&[place] [address] [facility] ABDOMEN 6 MEM HOS[facility] W/CONTRAS INC INC T MATERIAL ANES 86165 [facility] UPPER GI 6 ANESTH PALMA ENDOSCOPY OF THE PROXIMAL BLUE TO DUODENUM O2 CONC 1 E1390 [facility] 6 HOME HOME 85%/>02 MEDICAL MEDICAL CONC AT [facility] FLW RATE O2 CONC 1 E1390 [facility] 6 HOME MAR 85%/>02 MEDICAL CONC AT [facility] FLW RATE RADEX 83795 [facility] AYALA UPPER GI 6 MEM HOSP [facility]OS[facility] W/WO INC INC GLUCAGON/ DELAY IMAGES W/KUB RADEX 80562 TEX FONTANEZ ALL UPPER GI 6 MEDICAL W/WO IMAGING GLUCAGON/ ASS DELAY IMGES W/O KUB COLLECTIO 07702 [facility] A[facility]ALA N VENOUS 6 MEM HOSP MEM HOSP BLOOD INC INC VENIPUNCT URE FLOW 57751 [facility] AYALA CYTOMETRY 6 MEM HOSP [facility] HOS[facility] CELL INC INC SURF MARKER TECHL ONLY 1ST FLOW 52806 L[facility] LUCY CYTOMETRY 6 MEM HOSP MEM HOSP CELL INC INC SURF MARKER TECHL ONLY EA FLOW 63559 MOLE[facility]ULAR MOLECULAR CYTOMETRY 6 INTER PATHOLOGY PATHOLOGY 2-8 LAB NETW LAB NETW MARKERS NEBULIZER E0570 [facility] LEVY WITH 6 HOME HOME COMPRESSO MEDICAL MEDICAL R EQUIPME EQUIPME O2 CONC 1 E1390 [facility] D[place] DEL [place] 6 HOME KEY 85%/>02 MEDICAL CONC AT EQUIPME PRSC FLW RATE WALKER E0143 [facility] F[facility]ING 6 WHEELED ADJUSTABL E/FIXED HEIGHT SEAT E0156 [facility] ATTACHMEN 6 T WALKER ECG 57261 [place] [facility] ROUTINE 6 MEDICAL ECG SERV W/LEAST FOUNDATIO 12 LDS N I&R ONLY ECG 79180 [place] [facility] ROUTINE 6 MEDICAL NAN ECG SERV W/LEAST FOUNDATIO 12 LDS N I&R ONLY SBSQ 19310 [facility] 6 MEDICAL KEYANA CARE/DAY SERV 25 FOUNDATIO MINUTES N RADIOLOGI 70564 [place] JAMES CON C 6 MEDICAL EXAMINATI SERV ON CHEST FOUNDATIO SINGLE N VIEW FRONTAL RADIOLOGI 11665 [place] WILLIEK C 6 MEDICAL AYA MAR EXAMINATI SERV ON CHEST FOUNDATIO SINGLE N VIEW FRONTAL SBSQ 77611 [facility] 6 MEDICAL KEYANA CARE/DAY SERV 15 FOUNDATIO MINUTES N SBSQ 96036 [facility] 6 MEDICAL KEYANA CARE/DAY SERV 15 FOUNDATIO MINUTES N RADIOLOGI 89019 [place] MARCELLO JENNA C 6 MEDICAL EXAMINATI SERV ON CHEST FOUNDATIO SINGLE N VIEW FRONTAL RADIOLOGI 06804 [place] MAHMOOD LEATHA C 6 MEDICAL EXAMINATI SERV ON CHEST FOUNDATIO SINGLE N VIEW FRONTAL SBSQ 93916 [facility] 6 MEDICAL CARE/DAY SERV 25 FOUNDATIO MINUTES N ECG 06166 [place] [facility] ROUTINE 6 MEDICAL ECG SERV W/LEAST FOUNDATIO 12 LDS N I&R ONLY RADIOLOGI 23298 [place] MAHMOOD LEATHA C 6 MEDICAL EXAMINATI SERV ON CHEST FOUNDATIO SINGLE N VIEW FRONTAL SBSQ 82961 [facility] 6 MEDICAL CARE/DAY SERV 25 FOUNDATIO MINUTES N RADEX 23397 [place] [facility] ABDOMEN 1 6 MEDICAL SUSAN SERV ANTEROPOS FOUNDATIO TERIOR N VIEW RADEX 32555 [facility]OM[facility] 1 6 Y OF CAR [place] ANTEROPOS HOSPI TERIOR VIEW CRITICAL 80613 [facility] 6 MEDICAL ILL/INJUR SERV ED FOUNDATIO PATIENT N INIT 30-74 MIN RADIOLOGI 36140 [place] JAMES CON C 6 MEDICAL EXAMINATI SERV ON CHEST FOUNDATIO SINGLE N VIEW FRONTAL ECG 15850 [facility] ROUTINE 6 MEDICAL ECG SERV W/LEAST FOUNDATIO 12 LDS N I&[place] [address] [place] REYEZ CLEO ABDOMEN & 6 MEDICAL PELVIS SERV W/CONTRAS FOUNDATIO T N MATERIAL CT THORAX 57487 [place] 6 MEDICAL W/CONTRAS SERV T FOUNDATIO MATERIAL N RADIOLOGI 96436 [place] JONAH[place] C 6 MEDICAL AYA MAR EXAMINATI SERV ON CHEST FOUNDATIO SINGLE N VIEW FRONTAL SBSQ 06750 [facility] 6 MEDICAL CARE/DAY SERV 25 FOUNDATIO MINUTES N RADEX 84804 [facility] ABDOMEN 1 6 Y OF CAR [place] ANTEROPOS HOSPI TERIOR VIEW SBSQ 04050 [place] [address] MEDICAL AND CARE/DAY SERV 25 FOUNDATIO MINUTES N RADIOLOGI 66593 [place] JAMES CON C 6 MEDICAL EXAMINATI SERV ON CHEST FOUNDATIO SINGLE N VIEW FRONTAL INITIAL 52034 [facility] 6 MEDICAL SUN KAYODE CARE/DAY SERV 30 FOUNDATIO MINUTES N ECG 76013 [facility] ROUTINE 6 MEDICAL ECG SERV W/LEAST FOUNDATIO 12 LDS N I&R ONLY ECHO 18474 [place] [facility] R-T 6 MEDICAL ERIKA 2D SERV W/WOM-MOD FOUNDATIO E COMPL N SPEC&COLR D RADEX ABD 12468 [place] PAULA COMPL 6 MEDICAL JURGEN AQT ABD SERV ANNEL W/S/E/D FOUNDATIO VIEWS 1 N VIEW CH SBSQ 05082 [facility] 6 MEDICAL AND CARE/DAY SERV 25 FOUNDATIO MINUTES N RADIOLOGI 33347 [place] JAMES CON C 6 MEDICAL EXAMINATI SERV ON CHEST FOUNDATIO SINGLE N VIEW FRONTAL RADIOLOGI 65732 [place] JAMES CON C 6 MEDICAL EXAMINATI SERV ON CHEST FOUNDATIO SINGLE N VIEW FRONTAL ECG 86753 [place] [facility] CHI ROUTINE 6 MEDICAL ECG SERV W/LEAST FOUNDATIO 12 LDS N I&R ONLY RADIOLOGI 64649 [place] ZAGUROVSK C 6 MEDICAL AYA MAR EXAMINATI SERV ON CHEST FOUNDATIO SINGLE N VIEW FRONTAL RADIOLOGI 10465 [place] ROBBINS C 6 MEDICAL JESS EXAMINATI SERV ON CHEST FOUNDATIO SINGLE N VIEW FRONTAL RADEX 20756 [place] ZAGUROVSK ABDOMEN 1 6 MEDICAL AYA MAR SERV ANTEROPOS FOUNDATIO TERIOR N VIEW RADIOLOGI 61123 [place] ZAGUROVSK C 6 MEDICAL AYA MAR EXAMINATI SERV ON CHEST FOUNDATIO SINGLE N VIEW FRONTAL CT THORAX 67998 [place] ARMENDARIZ JENNA 6 MEDICAL W/[place] [address] [place] AYOOB AND ABDOMEN & 6 MEDICAL PELVIS SERV W/CONTRAS FOUNDATIO T N MATERIAL RADEX 26062 [place] VALORIE NEEL ABDOMEN 1 6 MEDICAL SERV ANTEROPOS FOUNDATIO TERIOR N VIEW SBSQ 44687 [facility] 6 MEDICAL AND CARE/DAY SERV 25 FOUNDATIO MINUTES N SBSQ 12982 [facility] 6 MEDICAL AND CARE/DAY SERV 25 FOUNDATIO MINUTES N RADIOLOGI 08228 [place] DELL CAR C 6 MEDICAL EXAMINATI SERV ON CHEST FOUNDATIO SINGLE N VIEW FRONTAL RADIOLOGI 67616 [place] JAMES CON C 6 MEDICAL EXAMINATI SERV ON CHEST FOUNDATIO SINGLE N VIEW FRONTAL ECG 13980 [place] PELAEZ ROUTINE 6 MEDICAL NAN ECG SERV W/LEAST FOUNDATIO 12 LDS N I&R ONLY ECG 99728 ELIO AMES MIKHAIL ROUTINE 6 MEDICAL ECG SERV W/LEAST FOUNDATIO 12 LDS N I&R ONLY ARTL 82321 [facility]CAN 6 Y OF Y OF N[facility]J [facility] SFUSION SPX PRQ RPR 1ST 335[address] [facility] 6 MEDICAL RONNY HRNA AGE SERV 6 YRS/> FOUNDATIO INCARCERA N KISHOR SBSQ 92744 [facility] 6 MEDICAL RONNY CARE/DAY SERV 25 [place] [address] [facility] SURG 6 MEDICAL FRANCO PATHOLOGY SERV FOUNDATIO GROSS&JESS N ROSCOPIC EXAM LEVEL III 92742 [facility] SURG 6 MEDICAL FRANCO PATHOLOGY SERV FOUNDATIO GROSS&JESS N ROSCOPIC EXAM ANESTHESI 13723 [facility] BET A HERNIA 6 Y [place] [address] [place] ABDOMEN & 6 MEDICAL PELVIS IMAGING W/O ASS CONTRAST MATERIAL ECG 32351 [facility] ROUTINE 6 [facility] ECG INC INC W/LEAST 12 LDS TRCG ONLY W/O I&R RADIOLOGI 77953 [place] C 6 MEDICAL EXAMINATI IMAGING ON CHEST ASS SINGLE VIEW FRONTAL COMPREHEN 42792 [facility] SIVE 6 [facility] [address] [facility] AMYLASE 6 [facility] INC INC CREATINE 72856 LUC[facility] AYAL[facility] KINASE MB 6 [facility] FRACTION INC INC ONLY INITIAL 26315 [facility] 6 MEDICAL CHR CARE/DAY SERV 50 FOUNDATIO MINUTES N GROUND A0425 [facility] MILEAGE 6 AMBULANCE AMBULANCE PER SERVICE SERVICE STATUTE MILE AMBULANCE A0429 [facility] SERVICE 6 AMBULANCE AMBULANCE BLS [place] [address] [facility] INFUSION 6 [facility] THERAPY/P INC INC ROPHYLAXI S /DX 1ST TO 1 HR INJECTION J2405 [facility]OBON [facility] ONDANSETR INC INC ON HCL PER 1 MG INJ J2543 [facility] PIPERACIL 6 [facility] YONATHAN INC INC SOD/TAZOB ACTAM SOD 1 G/0.125 G CREATINE 61078 [facility] KINASE 6 [facility] TOTAL INC INC THER 75482 LUC[facility] AYALA PROPH/DX 6 [facility] NJX EA INC INC SEQL IV [place] SBST/[place] [address] [facility] LIPASE 6 [place] [address] LUC[facility] AYALA TROPONIN 6 [facility] QUANTITAT INC INC ARCENIO BLOOD 28833 [facility] COUNT 6 [facility] COMPLETE INC INC AUTO&AUTO DIFRNTL WBC ECG 11409 LUCY BESMARIBEL ROUTINE 6 [facility] W/LEAST P 12 LDS I&R ONLY BLOOD 74822 A C KIRILL JENNA COUNT 6 [facility] [place] COMPLETE PSC AUTO&AUTO DIFRNTL WBC COLLECTIO 29851 A Kristy WEST N VENOUS 6 PILAR PLEITE[place] BLOOD PSC VENIPUNCT URE NEBULIZER [id number] MILDREDTEJINDER LEVY WITH 6 HOME HOME COMPRESSO MEDICAL MEDICAL R EQUIPME EQUIPME ECG [address] [facility] 6 [facility] W/LEAST P 12 LDS I&R ONLY INITIAL [address]/DAY INTERNAL 70 MED MINUTES NEBULIZER E0570 MILDRED LEVY WITH 6 HOME HOME COMPRESSO MEDICAL MEDICAL R EQUIPME EQUIPME ADMN SET [id number] YOUR YOUR SM VOL 6 PHARMACY PHARMACY NONFILTR [facility] PNEUMAT NEBULIZR DISPBL BLOOD 16573 LUCY AYALA COUNT 6 [facility] COMPLETE INC INC AUTO&AUTO DIFRNTL WBC PHRM Q0513 YOUR YOUR DISPENSIN 6 PHARMACY PHARMACY G FEE [facility] INHALATIO N RX; PER 30 DAYS RADIOLOGI 28391 LUCY AYALA C EXAM 6 [facility] CHEST 2 INC INC VIEWS FRONTAL&L ATERAL COMPREHEN 72677 LUCY AYALA SIVE 6 [facility] METABOLIC INC INC PANEL COLLECTIO 71841 LUCY AYALA N VENOUS 6 [facility] BLOOD INC INC VENIPUNCT URE ALBUTEROL J7620 [...] IPRATROPI UM BROM TO 0.5 MG RADIOLOGI 12042 [facility] ALL C EXAM 5 MEDICAL CHEST 2 IMAGING VIEWS ASS FRONTAL&L ATERAL CT THORAX 70725 [facility] ALL 5 MEDICAL W/CONTRAS IMAGING T ASS MATERIAL RADIOLOGI 65776 [facility] ALL C EXAM 5 MEDICAL CHEST 2 IMAGING VIEWS ASS FRONTAL&L ATERAL NEBULIZER E0570 MLIDRED LEVY WITH 5 HOME HOME COMPRESSO MEDICAL MEDICAL R EQUIPME EQUIPME ALBUTEROL J7620 YOUR YOUR TO 2.5 5 PHARMACY PHARMACY 8 [employer] [facility] IPRATROPI UM BROM TO 0.5 MG PHARM G0333 YOUR YOUR DISPEN 5 PHARMACY PHARMACY [facility] [employer] [facility] RX; INITIAL 30-DAY SUPPLY CATARACT 40902 WALLACE LINDSEYFORD REMOVAL 5 JAMILAH JAMILAH INSERTION [...] EQUIPME EQUIPME ARWAY PRESS DEVICE EA POLYSOM 60574 NEERAJ KERN MAR 6/>YRS 4 SLEEP 4/> NEUROSCIE ADDL NCES CENT AMA ATTND POLYSOM 02172 LUCY AYALA 6/>YRS 4 [facility] SLEEP 4/> [place] [address] LUCY AYALA INFUSION 4 [facility] THERAPY INC INC PROPHYLAX IS/DX EA HOUR IMC/IMC G0461 LUCY AYALA PER 4 [facility] SPECIMEN; INC INC 1ST SNGL/[place] [address] LUCY AYALA SURG 4 [facility] PATHOLOGY INC INC GROSS&JESS ROSCOPIC EXAM SPECIAL 52065 LUCY AYALA STAIN 4 [facility] GROUP 1 INC INC MICROORGA NISMS I&R SPCL STN 45698 LUCY AYALA 2 I&R 4 [facility] EXCPT INC INC MICROORG/ ENZYME/[place] [address] LUCY AYALA INFUSION 4 [facility] THERAPY/P INC INC ROPHYLAXI S /DX 1ST TO 1 HR SPMTRY 88017 LUCY AYALA W/VC 4 [facility] EXPIRATOR INC INC Y ALFREDO W/WO MXML VOL VNTJ ECHO 51979 LUCY AYALA TTHRC R-T 4 [facility] 2D INC INC W/WOM-MOD E COMPL SPEC&COLR D MYOCARDIA 28054 LUCY AYALA L SPECT 4 [facility] MULTIPLE INC INC STUDIES CV STRS 98387 GLENN ELIZABETH JR TST 4 DWI DWI XERS&/OR RX CONT ECG I&R ONLY CV STRS 91022 KEITH PARKER JOSH TST 4 XERS&/OR RX CONT ECG W/O I&R MYOCARDIA 22284 [place] L 4 MEDICAL EMY PERFUSION IMAGING PLANAR ASS MULTIPLE STUDIES RADIOLOGI 79000 [place] C EXAM 4 MEDICAL EMY [...] SONE ACETATE & PHOSPHATE 3 MG RADIOLOGI 13613 LUCY AYALA C EXAM 3 [facility] [...] EQUIPME EQUIPME FLWMTR HUMIDFR&M ASK CT THORAX 21317 TEX MA W/O 2 MEDICAL EMY CONTRAST IMAGING MATERIAL ASS 3D 34496 [place] RENDERING 2 MEDICAL EMY IMAGING W/INTERP& ASS POSTPROC DIFF WORK STATION PRTBLE E0431 MILDRED MILDRED GASEOUS 2 HOME HOME O2 SYS MEDICAL MEDICAL RENT; EQUIPME EQUIPME FLWMTR HUMIDFR&M ASK TOBACCO 06133 JAMES JAMES USE 2 DON DON CESSATION INTERMEDI ATE 3-10 MINUTES PRTBLE E0431 MILDRED MILDRED GASEOUS 2 HOME HOME O2 SYS MEDICAL MEDICAL RENT; EQUIPME EQUIPME FLWMTR HUMIDFR&M ASK PRTBLE E0431 MILDRED MILDRED GASEOUS 2 HOME HOME O2 SYS MEDICAL MEDICAL RENT; EQUIPME EQUIPME FLWMTR HUMIDFR&M ASK SPMTRY 68732 POLLOCK POLLOCK W/VC 2 JAM JAM EXPIRATOR Y ALFREDO W/WO MXML VOL VNTJ RADIOLOGI 95703 [facility] C EXAM 2 MEDICAL EMY CHEST 2 IMAGING VIEWS ASS FRONTAL&L ATERAL PRTBLE E0431 MILDRED MILDRED GASEOUS 2 HOME HOME O2 SYS MEDICAL MEDICAL RENT; EQUIPME EQUIPME FLWMTR HUMIDFR&M ASK CYTP 48945 PATHOLOGY PATHOLOGY SLCTV 2 & & CELL CYTOLOGY CYTOLOGY ENHANCEME LAB LAB NT INTERPJ XCPT C/V COLLECTIO 30192 LUCY AYALA N VENOUS 2 [facility] BLOOD INC INC VENIPUNCT URE CUL BACT 69686 LUCY AYALA XCPT 2 [facility] URINE INC INC BLOOD/STO OL AEROBIC ISOL CULTURE 43478 LUCY AYALA BACTERIAL 2 [facility] ANY INC INC SOURCE ANAEROBIC ISO&ID CULTURE 23081 LUCY AYALA TUBERCLE/ 2 [facility] OTH INC INC ACID-FAST BACILLI ANY ISOL TISS FRED 67296 LUCY AYALA SLIDE 2 [facility] SAMPS INC INC SKN/HR/NL S FNGI/ECTO PARASIT BLOOD 69624 LUCY AYALA GASES ANY 2 [facility] INC INC COMBINATI ON PH PCO2 PO2 CO2 HCO3 GLUCOSE 45073 LUCY AYALA BODY 2 [facility] FLUID INC INC OTHER THAN BLOOD IRON 24676 LUCY BOBON BINDING 2 [facility] CAPACITY INC INC LACTATE 75846 LUCYJOAN AYALA DEHYDROGE 2 [facility] [place] [address] LUCY AYALA IRON 2 [facility] INC INC CARBOXYHE 65643 LUCYJOAN AYALA MOGLOBIN 2 [facility] QUANTITAT INC INC ARCENIO RADIOLOGI 25761 LUYC AYALA C EXAM 2 [facility] CHEST 2 INC INC VIEWS FRONTAL&L ATERAL SMR PRIM 36332 LUCY AYALA SRC 2 [facility] GRAM/GIEM INC INC SA STAIN BCT FUNGI/VAHID L CT THORAX 09057 LUCY AYALA W/O 2 [facility] CONTRAST INC INC MATERIAL PROTEIN 69031 LUCY AYALA XCPT 2 [facility] REFRACTOM INC INC ETRY SERUM PLASMA/[place] [address] LUCY AYALA GUIDANCE 2 [facility] NEEDLE INC INC PLACEMENT CYANOCOBA 04689 LUCY AYALA BETTIE [facility] VITAMIN INC INC B-12 NONINVASI 48114 LUCY AYALA VE [address] [facility] EAR/PULSE INC INC OXIMETRY SINGLE DETER CELL 56083 LUCY AYALA COUNT 2 [facility] MISC BODY INC INC FLUIDS W/DIFFERE NTIAL COUNT THORACENT 28581 LUCY AYALA ESIS [address] [facility] PUNCTURE INC INC PLEURAL CAVITY ASPIRATIO N ECG 32708 LUCY AYALA ROUTINE 2 [facility] ECG INC INC W/LEAST 12 LDS TRCG ONLY W/O I&R SPUTUM 55179 LUCY AYALA OBTAINING 2 [facility] SPEC INC INC AEROSOL INDUCED TX SPX 3D 54303 [place] RENDERING 2 MEDICAL EMY IMAGING W/INTERP& ASS POSTPROC DIFF WORK STATION ECG 06699 RUSH BEVERLY ROUTINE 2 JENNA JENNA ECG W/LEAST 12 LDS I&R ONLY CT THORAX 15406 LUCY AYALA W/O 2 [facility] CONTRAST INC INC MATERIAL PRTBLE E0431 MILDRED MILDRED GASEOUS 2 HOME HOME O2 SYS MEDICAL MEDICAL RENT; EQUIPME EQUIPME FLWMTR HUMIDFR&M ASK PRTBLE E0431 MILDRED MILDRED GASEOUS 2 HOME HOME O2 SYS MEDICAL MEDICAL RENT; EQUIPME EQUIPME FLWMTR HUMIDFR&M ASK SPMTRY 46501 LUCY AYALA W/VC 2 [facility] EXPIRATOR INC INC Y ALFREDO W/WO MXML VOL VNTJ PRTBLE E0431 MILDRED MILDRED GASEOUS 2 HOME HOME O2 SYS MEDICAL MEDICAL RENT; EQUIPME EQUIPME FLWMTR HUMIDFR&M ASK PRTBLE E0431 MILDRED MILDRED GASEOUS 2 HOME HOME O2 SYS MEDICAL MEDICAL RENT; EQUIPME EQUIPME FLWMTR HUMIDFR&M ASK RADIOLOGI 47901 ERIKA JAMES C EXAM 2 DON DON CHEST 2 VIEWS FRONTAL&L ATERAL CT THORAX 23538 [facility] MEDICAL EMY W/CONTRAS IMAGING T ASS MATERIAL COMPREHEN 32685 COMBINED COMBINED SIVE 2 PHYSICIAN PHYSICIAN METABOLIC S LA S LA PANEL LIPID 15727 COMBINED COMBINED PANEL 2 PHYSICIAN PHYSICIAN S LA S LA BLOOD 45904 COMBINED COMBINED COUNT 2 PHYSICIAN PHYSICIAN COMPLETE S LA S LA AUTO&[place] [address] COMBINED COMBINED PROSTATE 2 PHYSICIAN PHYSICIAN SPECIFIC [...] 85%/>02 MEDICAL MEDICAL CONC AT EQUIPME EQUIPME [facility] FLW RATE PRTBLE E0431 MILDRED LEVY GASEOUS 1 HOME HOME O2 SYS MEDICAL MEDICAL RENT; EQUIPME EQUIPME FLWLAR HUMIDFR&M ASK PRTBLE E0431 MILDRED LEVY GASEOUS 1 HOME HOME O2 SYS MEDICAL MEDICAL RENT; EQUIPME EQUIPME FLWLAR HUMIDFR&M ASK O2 CONC 1 E1390 MILDRED [place] 1 HOME HOME 85%/>02 MEDICAL MEDICAL CONC AT EQUIPME EQUIPME [facility] FLW RATE O2 CONC 1 E1390 MILDRED VARMA 1 HOME HOME 85%/>02 MEDICAL MEDICAL CONC AT EQUIPME EQUIPME [facility] FLW RATE PRTBLE E0431 MILDRED LEVY GASEOUS 1 HOME HOME O2 SYS MEDICAL MEDICAL RENT; EQUIPME EQUIPME FLWLAR HUMIDFR&M ASK PRTBLE E0431 MILDRED LEVY GASEOUS 1 HOME MED HOME MED O2 SYS EQUIP. L EQUIP. L [facility]; [facility] ASK O2 CONC 1 E1390 MILDRED LUIS [facility] 1 HOME MED HOME MED 85%/>02 EQUIP. L EQUIP. L CONC AT [facility] FLW RATE O2 CONC 1 E1390 MILDRED LUIS [facility] 1 HOME MED HOME MED 85%/>02 EQUIP. L EQUIP. L CONC AT [facility] FLW RATE PRTBLE E0431 MILDRED LEVY GASEOUS 1 HOME MED HOME MED O2 SYS EQUIP. L EQUIP. L RENT; FLWMTR HUMIDFR&M ASK PRTBLE E0431 MILDRED LEVY GASEOUS 1 HOME MED HOME MED O2 SYS EQUIP. L EQUIP. L RENT; FLWMTR HUMIDFR&M ASK O2 CONC 1 E1390 MILDRED LUIS [facility] 1 HOME MED HOME MED 85%/>02 EQUIP. L EQUIP. L CONC AT [facility] FLW RATE O2 CONC 1 E1390 MILDRED LU[place] [facility] 1 HOME MED HOME MED 85%/>02 EQUIP. L EQUIP. L CONC AT [facility] FLW RATE PRTBLE E0431 MILDRED [place] GASEOUS 1 HOME MED HOME MED O2 SYS EQUIP. L EQUIP. L RENT; FLWLAR HUMIDFR&M ASK PRTBLE E0431 MILDRED [place] GASEOUS 1 HOME MED HOME MED O2 SYS EQUIP. L EQUIP. L RENT; [facility] HUMIDFR&M ASK O2 CONC 1 E1390 [place] 1 HOME MED HOME MED 85%/>02 EQUIP. L EQUIP. L CONC AT [facility] FLW RATE O2 CONC 1 E1390 [place] 0 HOME MED HOME MED 85%/>02 EQUIP. L EQUIP. L CONC AT [facility] FLW RATE PRTBLE E0431 MILDRED [place] GASEOUS 0 HOME MED HOME MED O2 SYS EQUIP. L EQUIP. L RENT; [facility] HUMIDFR&M ASK PRTBLE E0431 MILDRED [place] GASEOUS 0 HOME MED HOME MED O2 SYS EQUIP. L EQUIP. L RENT; [facility] HUMIDFR&M ASK O2 CONC 1 E1390 [place] 0 HOME MED HOME MED 85%/>02 EQUIP. L EQUIP. L CONC AT [facility] FLW RATE O2 CONC 1 E1390 [place] 0 HOME MED HOME MED 85%/>02 EQUIP. L EQUIP. L CONC AT [facility] FLW RATE PRTBLE E0431 MILDRED [place] GASEOUS 0 HOME MED HOME MED O2 SYS EQUIP. L EQUIP. L RENT; [facility] HUMIDFR&M ASK O2 CONC 1 E1390 [place] 0 HOME MED HOME MED 85%/>02 EQUIP. L EQUIP. L CONC AT [facility] FLW RATE PRTBLE E0431 MILDRED MILDRED GASEOUS 0 HOME MED HOME MED O2 SYS EQUIP. L EQUIP. L RENT; [facility] HUMIDFR&M ASK RADIOLOGI 52134 [facility] C 0 [facility] 36532 [facility] W/BRNCL 0 Y Y ALVEOLAR [facility] L[facility] CYTP FINE 95023 [facility] NDL 0 Y Y ASPIRATE [facility] IMMT CYTOHIST STD DX 1ST CYTP EVAL 28461 [facility] FINE 0 Y Y NEEDLE [facility] ASPIRATE INTERP & RE[place] [address] [facility] SURG 0 Y Y PATHOLOGY [facility] GROSS&JESS ROSCOPIC EXAM CONCENTRA 82020 [facility] TION 0 Y Y INFECTIOU [facility] S AGENTS VIRUS 39391 [facility] TISS CUL 0 Y Y INOCULATI [facility] ON CYTOPATHI C EFFECT IADNA NOS 02964 [facility] 0 Y Y AMPLIFIED [facility] PROBE TQ EACH ORGANISM IAADI 75062 [facility] PNEUMOCUS 0 Y Y TIS [facility] CARINII SMR PRIM 66500 [facility] SRC 0 Y Y FLUORESCE [facility] NT&/AFS BCT FNGI PARASIT TISS FRED 01883 [facility] SLIDE 0 Y Y [facility] SKN/HR/NL S FNGI/ECTO PARASIT CULTURE 66476 [facility] TUBERCLE/ 0 Y Y OTH [facility] ACID-FAST BACILLI ANY ISOL CUL BACT 56219 [facility] XCPT 0 Y Y URINE [facility] BLOOD/STO OL AEROBIC ISOL VIRUS 34268 [facility] CENTRIFUG 0 Y Y E [facility] ID IMFLUOR STAIN EA CULTURE 09557 [facility] FUNGI 0 Y Y DEFINITIV [facility] E ID EACH ORGANISM YEAST SMR PRIM 83806 [facility] SRC 0 Y Y GRAM/GIEM [facility] SA STAIN BCT FUNGI/VAHID L INJECTION J3010 [facility] FENTANYL 0 Y Y CITRATE [facility] 0.1 MG CELL 65658 [facility] COUNT 0 Y Y MISC BODY [facility] FLUIDS W/DIFFERE NTIAL COUNT BRONCHOSC 54472 [facility] OPY 0 Y Y W/TRANSBR [facility] ONCHIAL LUNG BX 1 LOBE BRONCHOSC 30465 [facility] OPY 0 Y Y NEEDLE BX [facility] TRACHEA MAIN STEM&/BRO N INJECTION J2250 [facility] 0 Y Y MIDAZOLAM [facility] HCL PER 1 MG CULTURE 34664 [facility] FNGI 0 Y Y MOLD/YEAS [facility] T PRSMPTV OTH XCPT BLOOD SPECIAL 42437 [facility] STAIN 0 Y Y GROUP 1 [facility] MICROORGA NISMS I&R O2 CONC 1 E1390 MILDR[place] 0 HOME MED HOME MED 85%/>02 EQUIP. L EQUIP. L CONC AT [facility] FLW RATE PRTBLE E0431 MILDRED LEVY GASEOUS 0 HOME MED HOME MED O2 SYS EQUIP. L EQUIP. L RENT; FLWMTR HUMIDFR&M ASK PHLEBOTOM 06004 COMBINED COMBINED Y 0 PHYSICIAN PHYSICIAN THERAPEUT S LA S LA IC SEPARATE PROCEDURE DUP-SCAN 17425 [place] XTR VEINS 0 MEDICAL EMY COMPLETE IMAGING ASS BILATERAL STUDY RADEX 95493 [place] ESOPHAGUS 0 MEDICAL EMY IMAGING ASS BLOOD 07097 [facility] COUNT 0 [facility] COMPLETE INC INC AUTO&AUTO DIFRNTL WBC BRNCDILAT 27948 LUC[facility] RSPSE 0 [facility] SPMTRY INC INC PRE&POST- BRNCDILAT ADMN PULMONARY 74985 [place] STRESS 0 MEDICAL JAM TESTING SERV SIMPLE FOUNDATIO COMPREHEN 59636 [facility] SIVE 0 [facility] METABOLIC INC INC PANEL COLLECTIO 83226 LUC[facility] A[facility] N VENOUS 0 [facility] BLOOD INC INC VENIPUNCT URE COLLECTIO 23658 COMBINED COMBINED N VENOUS 0 PHYSICIAN PHYSICIAN BLOOD S LAB S LAB VENIPUNCT URE COMPREHEN 08935 COMBINED COMBINED SIVE 0 PHYSICIAN PHYSICIAN METABOLIC S LAB S LAB PANEL CT THORAX 98412 [place] NELLY W/O 0 MEDICAL KEY CONTRAST IMAGING MATERIAL ASS 3D 68335 [place] NELLY RENDERING 0 MEDICAL KEY IMAGING W/INTERP& ASS POSTPROC DIFF WORK STATION RADIOLOGI 57296 [place] Wagner EXAM 0 MEDICAL EMY CHEST 2 IMAGING VIEWS ASS FRONTAL&L ATERAL O2 CONC 1 E1390 MILDRED [place] 0 HOME MED HOME MED 85%/>02 EQUIP. EQUIP. CONC AT [facility] FLW RATE PRTBLE E0431 MILDRED MILDRED GASEOUS 0 HOME MED HOME MED O2 SYS EQUIP. EQUIP. RENT; [facility] FLWMTR HUMIDFR&M ASK PRTBLE E0431 MILDRED MILDRED GASEOUS 0 HOME MED HOME MED O2 SYS EQUIP. EQUIP. RENT; [facility] FLWMTR HUMIDFR&M ASK O2 CONC 1 E1390 MILDRED [place] PORT 0 HOME MED HOME MED 85%/>02 EQUIP. EQUIP. CONC AT [facility] FLW RATE RADIOLOGI 98750 ERIKA JAMES C EXAM 0 DON R DON R CHEST 2 VIEWS FRONTAL&L ATERAL INJECTION J1940 ERIKA JAMES, 0 DON R DON R FUROSEMID E UP TO 20 MG ECG 56212 ERIKA JAMES, ROUTINE 0 DON R DON R ECG W/LEAST 12 LDS W/I&R RADIOLOGI 83277 ERIKA JAMES, C 0 DON R DON R EXAMINATI ON CHEST [facility] 02494 ERIKA JAMES, DISCHARGE 0 DON R DON R DAY MANAGEMEN T 30 MIN/< RADIOLOGI 54721 [place] Kristy VILLEGAS EXAM 0 MEDICAL JANE P CHEST 2 IMAGING VIEWS ASSOCIATE FRONTAL&L S ATERAL SBSQ 64123 [facility] 0 DON R DON R CARE/DAY 25 MINUTES [facility] 41756 [facility] R DON R CARE/DAY 25 MINUTES SBS 07511 JAMES, [facility] 0 DON R DON R CARE/DAY 25 MINUTES [facility] 87335 JAMES, [facility] 0 DON R DON R CARE/DAY 25 MINUTES 3D 33973 [place], RENDERING 0 MEDICAL SHASHI IMAGING W/INTERP& ASSOCIATE POSTPROC S DIFF WORK STATION CT THORAX 47388 [place], 0 MEDICAL SHASHI W/CONTRAS IMAGING T ASSOCIATE MATERIAL S SBSQ 69134 [facility] 0 DON R DON R CARE/DAY 25 MINUTES INITIAL 33099 [facility] 0 DON R DON R CARE/DAY 50 MINUTES RADIOLOGI 77927 [place], C EXAM 0 MEDICAL SHASHI CHEST 2 IMAGING VIEWS ASSOCIATE FRONTAL&L S ATERAL RADIOLOGI 64570 ERIKA JAMES 0 DON R DON R EXAMINATI ON CHEST SINGLE VIEW FRONTAL OPHTH 82407 [facility] DONTE A DONTE A XM&EVAL COMPRHNSV ESTAB PT 1/> SCANNING 14787 RETINA & NINI, OPHTHALMI 9 VITREOUS CALLIE W C IMAGING ASSOCIATE S O POSTERIOR SGM UNI OPHTH 18865 RETINA & NINI, MEDICAL 9 VITREOUS CALLIE W XM&EVAL ASSOCIATE INTERMEDI S O ATE ESTAB PT INJECTION J1040 ERIKA JAMES, 8 DON R DON R METHYLPRE DNISOLONE ACETATE 80 MG OPHTH 91655 RETINA & NINI, MEDICAL 8 VITREOUS CALLIE W XM&EVAL ASSOCIATE INTERMEDI S O ATE ESTAB PT SCANNING 04589 RETINA & NINI, OPHTHALMI 8 VITREOUS CALLIE W C IMAGING ASSOCIATE S O POSTERIOR SGM UNI INJECTION J1040 ERIKA JAMES, 8 DON R DON R METHYLPRE DNISOLONE ACETATE 80 MG OPHTH 14226 [facility] 8 DONTE A DONTE A XM&EVAL COMPRHNSV ESTAB PT 1/> SCANNING 27870 RETINA & NINI, OPHTHALMI 8 VITREOUS CALLIE W C IMAGING ASSOCIATE S O POSTERIOR SGM UNI OPHTH 33975 RETINA & NINI, MEDICAL 8 VITREOUS CALLIE W XM&EVAL ASSOCIATE INTERMEDI S O ATE ESTAB PT INJECTION J1040 ERIKA JAMES 8 DON R KRISH R METHYLPRE DNISOLONE ACETATE 80 MG RADIOLOGI 64294 ERIKA JAMES C EXAM 8 DON R KRISH R CHEST 2 VIEWS FRONTAL&L ATERAL OPHTH 46804 RETINA & RETINA & MEDICAL 8 VITREOUS VITREOUS XM&EVAL ASSOCIATE ASSOCIATE INTERMEDI S O S O ATE ESTAB PT SCANNING 05310 RETINA & RETINA & OPHTHALMI 8 VITREOUS VITREOUS C IMAGING ASSOCIATE ASSOCIATE S O S O POSTERIOR SGM UNI SCANNING 75086 RETINA & RETINA & OPHTHALMI 8 VITREOUS VITREOUS C IMAGING ASSOCIATE ASSOCIATE S O S O POSTERIOR SGM UNI OPHTH 79060 RETINA & RETINA & MEDICAL 8 VITREOUS VITREOUS XM&EVAL ASSOCIATE ASSOCIATE INTERMEDI S O S O ATE ESTAB PT INJECTION J1100 ERIKA JAMES 8 DON R KRISH R DEXAMETHO SONE SODIUM PHOSPHATE 1 MG Encounters Encounter Start End Date Code Location Performer Type Date OFFICE 54325 [facility] OUTPATI[facility] 7 7 PHYSICIAN T VISIT S GROUP 25 MINUTES OFFICE 98521 [facility] OUTPATI[facility] 7 7 PHYSICIAN T VISIT S GROUP 40 MINUTES OFFICE 17465 A Kristy ROY OUTPATIEN 7 7 PILAR PLEITEZ T VISIT [facility] [address]ES [address] [facility] 7 Y OF CK T VISIT [place] 25 HOSPI MINUTES OFFICE 75084 A Kristy ROY OUTPATIEN 7 7 PILAR PLEITEZ T VISIT [facility] 15 MINUTES HOSPITAL LUCY - 7 7 [facility] INPATIENT INC OFFICE 83326 A Kristy ROY OUTPATIEN 7 7 PILAR PLEITEZ T VISIT [facility] 15 MINUTES OFFICE 48028 A Kristy ROY OUTPATIEN 7 7 [place] T VISIT PSC 15 MINUTES OFFICE 43900 A Kristy ROY OUTPATIEN 7 7 [place] T VISIT PSC 15 MINUTES HOSPITAL LUCY - 6 6 [facility] OUT[facility] T OFFICE 76287 [place] OUTPATIEN 6 6 MEDICAL JAM T VISIT SERV 25 FOUNDATIO MINUTES N OFFICE 45124 [facility] JR OUTPATIEN 6 6 PHYSICIAN RITA T VISIT S GROUP 10 MINUTES HOSPITAL LUCY - 6 6 [facility] OUTPATIEN INC T OFFICE 23826 [facility]UCY EVAN OUTPATIEN 6 6 [facility] T VISIT HOSPITAL 10 P MINUTES OFFICE 98537 Darnell ROY OUTPATIEN 6 6 [place] [place] T VISIT PSC 15 MINUTES OFFICE 08424 ELIO POLLOCK OUTPATIEN 6 6 MEDICAL JAM T VISIT SERV 15 FOUNDATIO MINUTES N OFFICE 74679 [facility] JR OUTPATIEN 6 6 PHYSICIAN RITA T VISIT S GROUP 15 MINUTES OFFICE 57433 [facility] EV[facility] OUTPATIEN 6 6 [facility] T [facility] 20 HOSPITAL MINUTES P HOSPITAL LUCY - 6 6 [facility] OUTPATIEN INC T OFFICE 15875 [facility] OUTPATIEN 6 6 PHYSICIAN RITA T NEW 45 S GROUP MINUTES HOSPITAL LUCY - 6 6 [facility] OUTPATIEN INC T OFFICE 32670 [place] OUTPATIEN 6 6 MEDICAL JAM T VISIT SERV 25 FOUNDATIO MINUTES N OFFICE 38014 Darnell ROY OUTPATIEN 6 6 [place] T VISIT PSC 15 MINUTES OFFICE 97306 [place] OUTPATIEN 6 6 MEDICAL JAM T VISIT SERV 25 FOUNDATIO MINUTES N HOSPITAL LUCY - 6 6 [facility] OUTPATIEN INC T EMERGENCY 46471 [facility] DEPT 6 6 Y OF MADALYN VISIT [facility] HOSPI SEVERITY& THREAT FUN OFFICE 49570 A Kristy ROY JENNA OUTPATIEN 6 6 [place] T VISIT PSC 15 MINUTES OFFICE 98470 A C KIRILL JENNA OUTPATIEN 6 6 [place] T VISIT PSC 15 MINUTES HOSPITAL LUCY - 6 6 [facility] INPATIENT [facility] OFFICE 63124 [place] OUTPATIEN 6 6 MEDICAL JAM T VISIT SERV 40 FOUNDATIO MINUTES [facility] LUCY - 6 6 [facility] OUTPATIEN [facility] OFFICE 71278 [place] OUTPATIEN 6 6 MEDICAL T VISIT SERV 25 FOUNDATIO MINUTES OFFICE 56252 [place] OUTPATIEN 6 6 MEDICAL JAM T VISIT SERV 15 FOUNDATIO MINUTES HOSPITAL LUCY - 5 5 [facility] OUTPATIEN [facility] LUCY - 5 5 [facility] OUTPATIEN [facility] LUCY [facility] 5 5 [facility] OUTPATIEN [facility] OFFICE 12435 A C FIELD AMB OUTPATIEN 5 5 [place] T VISIT PSC 15 MINUTES OFFICE 42791 A C FIELD AMB OUTPATIEN 4 4 [place] T VISIT PSC 15 MINUTES HOSPITAL LUCY - 4 4 [facility] OUTPATIEN [facility]UC[facility] - 4 4 [facility] LUCY - 4 4 [facility] LUCY - 4 4 [facility]PATIEN [facility] LUCY - 4 4 [facility] OUTPATIEN [facility] LUCY [facility] 4 4 [facility] OUTPATIEN [facility] LUCY - 4 4 [facility] OUTPATIEN [facility] OFFICE 48107 FIELD AMB FIELD AMB OUTPATIEN 4 4 T VISIT 15 MINUTES OFFICE 45229 FIELD AMB FIELD AMB OUTPATIEN 3 3 T VISIT 15 MINUTES OFFICE 56689 A C FIELD AMB OUTPATIEN 3 3 PILAR PLEITE[place] NEW 30 PSC MINUTES OFFICE 86387 JAMES JAMES OUTPATIEN 3 3 DON DON T VISIT 15 MINUTES OFFICE 93241 JAMES JAMES OUTPATIEN 3 3 DON DON T VISIT 15 MINUTES HOSPITAL LUCY - 3 3 [facility] OUTPATIEN [facility] LUCY - 2 2 [facility] OUTPATIEN [facility] OFFICE 09482 JAMES JAMES OUTPATIEN 2 2 DON DON T VISIT 15 MINUTES HOSPITAL LUCY - 2 2 [facility] OUTPATIEN [facility] LUCY [facility] 2 2 [facility]PATIEN [facility] LUCY - 2 2 [facility] LUCY - 2 2 [facility] OFFICE 15465 JAMES JAMES OUTPATIEN 2 2 DON DON T VISIT 15 MINUTES OFFICE 87708 JAMES JAMES OUTPATIEN 1 1 DON DON T VISIT 15 MINUTES OFFICE 02384 JAMES JAMES OUTPATIEN 1 1 DON DON T VISIT 15 MINUTES OFFICE 30830 JAMES JAMES OUTPATIEN 1 1 DON DON T VISIT 15 MINUTES OFFICE 52770 JAMES JAMES OUTPATIEN 1 1 DON DON T VISIT 15 MINUTES HOSPITAL UNIVERSIT - 0 0 [facility] LUCY - 0 0 [facility] OUTPATIEN [facility] LUCY - 0 0 [facility] LUCY - 0 0 [facility] - [facility] [facility] OFF[facility] [id number] ERIKA JAMES OUTPATIEN 0 0 DON R DON R T VISIT 15 MINUTES OFFICE [id number] ERIKA JAMES OUTPATIEN 0 0 DON R DON R T VISIT 25 MINUTES OFFICE [id number] ERIKA JAMES OUTPATIEN 0 0 DON R DON R T VISIT 15 MINUTES OFFICE [id number] ERIKA JAMES OUTPATIEN 8 8 DON R DON R T VISIT 15 MINUTES OFFICE [id number] ERIKA JAMES OUTPATIEN 8 8 DON R DON R T VISIT 15 MINUTES OFFICE [id number] ERIKA JAMES OUTPATIEN 8 8 DON R DON R T VISIT 15 MINUTES OFFICE [id number] ERIKA JAMES OUTPATIEN 8 8 DON R DON R T VISIT 15 MINUTES OFFICE [id number] ERIKA JAMES OUTPATIEN 8 8 DON R DON R T VISIT 15 MINUTES
--- OUTSIDE RECORDS SUMMARY | 2016-11-15 14:20 | External Medical Summary Rpt ---
Demographics Preferred Language Swazi Marital Status Unknown Gnosticism Affiliation Unknown Race Unknown Ethnic Group Unknown Author Author RANDALL Address Unknown Phone Immunization Unable to retrieve immunization data due to connection failure with Immunization Registry. Please try again later.
--- OUTSIDE RECORDS SUMMARY | 2016-11-15 14:20 | External Medical Summary Rpt ---
Demographics Preferred Language Nigerien Marital Status Unknown Bahai Affiliation Unknown Race Unknown Ethnic Group Unknown Author Author RANDALL Address Unknown Phone Immunization Unable to retrieve immunization data due to connection failure with Immunization Registry. Please try again later.
--- OUTSIDE RECORDS SUMMARY | 2016-11-15 14:21 | External Medical Summary Rpt ---
Author Author [employer], [employer] Organization [employer] Address Unknown Phone Unavailable Results CBC W Auto Differential panel in Blood Observa Value Referen Units Interpr Notes Date tion ce etation Range Granulocy 1.3 - 8.0 K/mm3 High No Nov 09 anisa informati 2016 [#/volume on in 10:03 AM ] in source Blood by data Automated count Granulocy 37.0 - % High No Nov 09 anisa/100 80.0 informati 2016 leukocyte on in 10:03 AM s in source Blood by data Automated count Hematocri 42.0 - % Normal No Nov 09 t [Volume 52.0 informati 2016 on in 10:03 AM Fraction] source of Blood data Hemoglobi 14.1 - g/dL Normal No Nov 09 n 18.0 informati 2016 [Mass/vol on in 10:03 AM ume] in source Blood data Lymphocyt 0.7 - 4.5 K/mm3 Normal No Nov 09 es informati 2016 [#/volume on in 10:03 AM ] in source Unspecifi data ed specimen by Automated count Lymphocyt 10 - 50 % Normal No Nov 09 es informati 2016 [#/volume on in 10:03 AM ] in source Unspecifi data ed specimen by Automated count Erythrocy 27 - 31.2 pg Low No Nov 09 te mean inform2016 corpuscul on in 10:03 AM ar source hemoglobi data n [Entitic mass] Erythrocy 31.8 - g/dl Normal No Nov 09 te mean 35.4 2016 corpuscul on in 10:03 AM ar source hemoglobi data n concentra tion [Mass/vol ume] by Automated count Erythrocy 82.2 - fL Low No Nov 09 te mean 97.8 2016 corpuscul on in 10:03 AM ar volume source [Entitic data volume] by Automated count Monocytes 0.1 - 1.0 K/mm3 Normal No Nov 09 informati 2016 [#/volume on in 10:03 AM ] in source Blood by data Automated count Monocytes 1.7 - 9.3 % Normal No Nov 092016 leukocyte on in 10:03 AM s in source Blood by data Automated count Platelets 142 - 424 K/mm3 Normal No Nov 092016 [#/volume on in 10:03 AM ] in source Blood data Erythrocy 4.6 - 6.2 M/mm3 High No Nov 09 anisa 2016 [#/volume on in 10:03 AM ] in source Amniotic data fluid Erythrocy 11.5 - % High No Nov 09 te 17.5 2016 distribut on in 10:03 AM ion width source [Entitic data volume] by Automated count Leukocyte 4.8 - K/mm3 High Nov 09 s 10.8 alert NOTIFICAT 2017 [#/volume ION 10:03 AM ] in RESULT Blood 11/09 1317 Dougie Romo Differential panel, method unspecified - Observa Value Referen Units Interpr Notes Date tion ce etation Range Anisocy 1+ No No No No Nov 09 tosis informa informa informa informa 2016 [Presen tion in tion in tion in tion in 10:03 ce] in source source source source AM Blood data data data data LYMPH 13 10 - 50 % Normal No Nov 092016 tion in 10:03 source AM data Monocytes 2 - 9 % Normal No Nov 092016 leukocyte on in 10:03 AM s in source Blood by data Automated count Platele NORMAL No No No No Nov 09 ts informa informa informa informa 2016 [Presen tion in tion in tion in tion in 10:03 ce] in source source source source AM Blood data data data data by Light microsc opy Neutrophi 42 - 76 % High No Nov 09 ls 2016 [#/volume on in 10:03 AM ] in source Blood by data Automated count Cells No #CELLS No No Nov 09 Counted informati informati ati 2016 Total [#] on in on in on in 10:03 AM in Blood source source source data data data Digoxin [Mass/volume] in Serum or Plasma Observa Value Referen Units Interpr Notes Date tion ce etation Range Digoxin 1.15 - ng/mL Normal No Nov 05 [Mass/vol 2.56 2016 3:46 ume] in on in PM Serum or source Plasma data CBC W Auto Differential panel in Blood Observa Value Referen Units Interpr Notes Date tion ce etation Range Basophils 0 - 0.2 K/MM3 Normal No Nov 05 informati 2016 6:30 [#/volume on in AM ] in source Blood by data Automated count Basophils 0.1 - 2.0 % Normal No Nov 05 / informati 2016 6:30 leukocyte on in AM s in source Blood by data Automated count Eosinophi 0.0 - 0.4 K/mm3 Normal No Nov 05 ls informati 2016 6:30 [#/volume on in AM ] in source Blood by data Automated count Eosinophi 0.1 - % Normal No Nov 05 ls/100 12.0 informati 2016 6:30 leukocyte on in AM s in source Blood by data Automated count Granulocy 1.3 - 8.0 K/mm3 High No Nov 05 anisa informati 2016 6:30 [#/volume on in AM ] in source Blood by data Automated count Granulocy 37.0 - % Normal No Nov 05 anisa/100 80.0 informati 2016 6:30 leukocyte on in AM s in source Blood by data Automated count Hematocri 42.0 - % Normal No Nov 05 t [Volume 52.0 informati 2016 6:30 on in AM Fraction] source of Blood data Hemoglobi 14.1 - g/dL Normal No Nov 05 n 18.0 informati 2016 6:30 [Mass/vol on in AM ume] in source Blood data Lymphocyt 0.7 - 4.5 K/mm3 Normal No Nov 05 es informati 2016 6:30 [#/volume on in AM ] in source Unspecifi data ed specimen by Automated count Lymphocyt 10 - 50 % Normal No Nov 05 es informati 2016 6:30 [#/volume on in AM ] in source Unspecifi data ed specimen by Automated count Erythrocy 27 - 31.2 pg Low No Nov 05 te mean informati 2016 6:30 corpuscul on in AM ar source hemoglobi data n [Entitic mass] Erythrocy 31.8 - g/dl Normal No Nov 05 te mean 35.4 informati 2016 6:30 corpuscul on in AM ar source hemoglobi data n concentra tion [Mass/vol ume] by Automated count Erythrocy 82.2 - fl Normal No Nov 05 te mean 97.8 informati 2017 6:30 corpuscul on in AM ar volume source [Entitic data volume] by Automated count Monocytes 0.1 - 1.0 K/mm3 High No Nov 05 informati 2016 6:30 [#/volume on in AM ] in source Blood by data Automated count Monocytes 1.7 - 9.3 % Normal No Nov 05 informati 2016 6:30 leukocyte on in AM s in source Blood by data Automated count Platelet 7.4 - fl Normal No Nov 05 mean 10.4 informati 2016 6:30 volume on in AM [Entitic source volume] data in Blood by Automated count Platelets 142 - 424 K/mm3 No Nov 05 informati informati 2017 6:30 [#/volume on in on in AM ] in source source Blood data data Erythrocy 4.6 - 6.2 M/mm3 Normal No Nov 05 anisa informati 2016 6:30 [#/volume on in AM ] in source Amniotic data fluid Erythrocy 11.5 - % Normal No Nov 05 te 17.5 informati 2016 6:30 distribut on in AM ion width source [Entitic data volume] by Automated count Leukocyte 4.8 - K/MM3 High No Nov 05 s 10.8 alert informati 2016 6:30 [#/volume on in AM ] in source Blood data Differential panel, method unspecified - Observa Value Referen Units Interpr Notes Date tion ce etation Range Lymphocyt 0 - 5 % High No Nov 05 es informati 2016 6:30 Variant/1 on in AM 00 source leukocyte data s in Blood by Manual count Hypochr 1+ No No No No Nov 05 omia informa informa informa informa 2016 [Presen tion in tion in tion in tion in 6:30 AM ce] in source source source source Blood data data data data LYMPH 31 10 - 50 % Normal No Nov 05 inform2016 tion in 6:30 AM source data Monocytes 2 - 9 % Normal No Nov 05 informati 2016 6:30 leukocyte on in AM s in source Blood by data Automated count Platele NORMAL No No No No Nov 05 ts informa informa informa informa 2016 [Presen tion in tion in tion in tion in 6:30 AM ce] in source source source source Blood data data data data by Light microsc opy Neutrophi 42 - 76 % Normal No Nov 05 ls informati 2016 6:30 [#/volume on in AM ] in source Blood by data Automated count Cells No #CELLS No No Nov 05 Counted informati informati informati 2017 6:30 Total [#] on in on in on in AM in Blood source source source data data data Comprehensive metabolic 2000 panel in Serum or Plasma Observa Value Referen Units Interpr Notes Date tion ce etation Range Albumin/G 1.1 - 1.8 No Low No Nov 05 lobulin informati informati 2016 6:30 [Mass on in on in AM ratio] in source source Serum or data data Plasma Albumin 3.4 - 5.0 gm/dL Low No Nov 05 [Mass/vol informati 2016 6:30 ume] in on in AM Serum or source Plasma data Alkaline 46 - 116 U/L Normal No Nov 05 phosphata informati 2016 6:30 se on in AM [Enzymati source c data activity/ volume] in Serum or Plasma Bilirubin 0.2 - 1.0 mg/dL Normal No Nov 05 .total informati 2016 6:30 [Mass/vol on in AM ume] in source Serum or data Plasma Urea 7 - 18 mg/dL High No Nov 05 nitrogen informati 2016 6:30 [Mass/vol on in AM ume] in source Serum or data Plasma Calcium 8.5 - mg/dL Normal No Nov 05 [Mass/vol 10.1 informati 2016 6:30 ume] in on in AM Serum or source Plasma data Chloride 98 - 107 mmoL/L Normal No Nov 05 [Moles/vo informati 2016 6:30 lume] in on in AM Serum or source Plasma data Carbon 21.0 - mmoL/L Normal No Nov 05 dioxide, 32.0 informati 2017 6:30 total on in AM [Moles/vo source lume] in data Serum or Plasma Creatinin 0.70 - mg/dL Normal No Nov 05 e 1.30 informati 2016 6:30 [Mass/vol on in AM ume] in source Serum or data Plasma Creatinin 50 - 200 ML/MIN Normal No Nov 05 e renal informati 2016 6:30 clearance on in AM source predicted data by Cockcroft -Gault formula Estimated >60 ML/MIN No REFERENCE Nov 05 informati RANGE: 2017 6:30 glomerula on in >60 AM r source ML/MIN/1. filtratio data 73 SQUARE n rate METERSIf (GF this patient is -A merican, then multiply theresult by 1.210. Globulin 1.3 - 3.2 gm/dL High No Nov 05 [Mass/vol informati 2016 6:30 ume] in on in AM Serum source data Glucose 74 - 106 mg/dL Normal No Nov 05 [Mass/vol informati 2016 6:30 ume] in on in AM Serum or source Plasma data Potassium 3.5 - 5.1 mmoL/L Normal No Nov 052016 6:30 [Moles/vo on in AM lume] in source Serum or data Plasma Sodium 136 - 145 mmoL/L Normal No Nov 05 [Moles/vo informati 2016 6:30 lume] in on in AM Serum or source Plasma data Aspartate 15 - 37 U/L Low No Nov 05 informati 2016 6:30 aminotran on in AM sferase source [Enzymati data c activity/ volume] in Serum or Plasma Alanine 12 - 78 U/L Normal No Nov 05 aminotran 2016 6:30 sferase on in AM [Enzymati source c data activity/ volume] in Serum or Plasma Protein 6.4 - 8.2 gm/dL Normal No Nov 05 [Mass/vol informati 2016 6:30 ume] in on in AM Serum or source Plasma data CBC W Auto Differential panel in Blood Observa Value Referen Units Interpr Notes Date tion ce etation Range Basophils 0 - 0.2 K/MM3 Normal No Nov 02ati 2016 6:15 [#/volume on in AM ] in source Blood by data Automated count Basophils 0.1 - 2.0 % Normal No Nov 02 informati 2016 6:15 leukocyte on in AM s in source Blood by data Automated count Eosinophi 0.0 - 0.4 K/mm3 High No Nov 02 ls informati 2016 6:15 [#/volume on in AM ] in source Blood by data Automated count Eosinophi 0.1 - % Normal No Nov 02 ls/100 12.0 informati 2016 6:15 leukocyte on in AM s in source Blood by data Automated count Granulocy 1.3 - 8.0 K/mm3 High No Nov 02 anisa informati 2016 6:15 [#/volume on in AM ] in source Blood by data Automated count Granulocy 37.0 - % Normal No Nov 02 anisa100 80.0 informati 2017 6:15 leukocyte on in AM s in source Blood by data Automated count Hematocri 42.0 - % Normal No Nov 02 t [Volume 52.0 informati 2016 6:15 on in AM Fraction] source of Blood data Hemoglobi 14.1 - g/dL Normal No Nov 02 n 18.0 informati 2017 6:15 [Mass/vol on in AM ume] in source Blood data Lymphocyt 0.7 - 4.5 K/mm3 High No Nov 02 es informati 2016 6:15 [#/volume on in AM ] in source Unspecifi data ed specimen by Automated count Lymphocyt 10 - 50 % Normal No Nov 02 es informati 2017 6:15 [#/volume on in AM ] in source Unspecifi data ed specimen by Automated count Erythrocy 27 - 31.2 pg Low No Nov 02 te mean informati 2016 6:15 corpuscul on in AM ar source hemoglobi data n [Entitic mass] Erythrocy 31.8 - g/dl Normal No Nov 02 te mean 35.4 informati 2016 6:15 corpuscul on in AM ar source hemoglobi data n concentra tion [Mass/vol ume] by Automated count Erythrocy 82.2 - fl Normal No Nov 02 te mean 97.8 informati 2017 6:15 corpuscul on in AM ar volume source [Entitic data volume] by Automated count Monocytes 0.1 - 1.0 K/mm3 Normal No Nov 02 informati 2016 6:15 [#/volume on in AM ] in source Blood by data Automated count Monocytes 1.7 - 9.3 % Normal No Oct 14 /100 informati 2016 6:15 leukocyte on in AM s in source Blood by data Automated count Platelet 7.4 - fl Normal No Nov 02 mean 10.4 informati 2017 6:15 volume on in AM [Entitic source volume] data in Blood by Automated count Platelets 142 - 424 K/mm3 Low No Nov 02 informati 2017 6:15 [#/volume on in AM ] in source Blood data Erythrocy 4.6 - 6.2 M/mm3 Normal No Nov 02 anisa informati 2017 6:15 [#/volume on in AM ] in source Amniotic data fluid Erythrocy 11.5 - % Normal No Nov 02 te 17.5 informati 2017 6:15 distribut on in AM ion width source [Entitic data volume] by Automated count Leukocyte 4.8 - K/MM3 High No Nov 02 s 10.8 informati 2016 6:15 [#/volume on in AM ] in source Blood data Differential panel, method unspecified - Observa Value Referen Units Interpr Notes Date tion ce etation Range Anisocy 1+ No No No No Nov 02 tosis informa informa informa informa 2016 [Presen tion in tion in tion in tion in 6:15 AM ce] in source source source source Blood data data data data Neutrophi 0 - 8 % Normal No Nov 02 ls.band informati 2016 6:15 form/100 on in AM leukocyte source s in data Blood by Automated count Eosinophi 0 - 3 % High No Nov 02 ls/100 informati 2016 6:15 leukocyte on in AM s in source Blood by data Manual count Hypochr 1+ No No No No Nov 02 omia informa informa informa informa 2016 [Presen tion in tion in tion in tion in 6:15 AM ce] in source source source source Blood data data data data LYMPH 26 10 - 50 % Normal No Nov 02 informa 2017 tion in 6:15 AM source data Blood 1+ No No No No Nov 02 smear informa informa informa informa 2017 finding tion in tion in tion in tion in 6:15 AM source source source source [Identi data data data data fier] in Blood by Light microsc opy Monocytes 2 - 9 % Normal No Oct 14 / informati 2016 6:15 leukocyte on in AM s in source Blood by data Automated count Platele MOD No No No No Nov 02 ts DECREAS informa informa informa informa 2016 [Presen E tion in tion in tion in tion in 6:15 AM ce] in source source source source Blood data data data data by Light microsc opy Neutrophi 42 - 76 % Normal No Nov 02 ls informati 2016 6:15 [#/volume on in AM ] in source Blood by data Automated count Cells No #CELLS No No Nov 02 Counted informati informati informati 2016 6:15 Total [#] on in on in on in AM in Blood source source source data data data Basic metabolic panel in Blood Observa Value Referen Units Interpr Notes Date tion ce etation Range Urea 7 - 18 mg/dL High No Nov 02 nitrogen informati 2016 6:15 [Mass/vol on in AM ume] in source Serum or data Plasma Calcium 8.5 - mg/dL Low No Nov 02 [Mass/vol 10.1 informati 2016 6:15 ume] in on in AM Serum or source Plasma data Chloride 98 - 107 mmoL/L Normal No Oct 14 [Moles/vo informati 2016 6:15 lume] in on in AM Serum or source Plasma data Carbon 21.0 - mmoL/L Normal No Nov 02 dioxide, 32.0 informati 2016 6:15 total on in AM [Moles/vo source lume] in data Serum or Plasma Creatinin 0.70 - mg/dL Normal No Nov 02 e 1.30 informati 2016 6:15 [Mass/vol on in AM ume] in source Serum or data Plasma Creatinin 50 - 200 ML/MIN Normal No Nov 02 e renal informati 2016 6:15 clearance on in AM source predicted data by Cockcroft -Gault formula Estimated >60 ML/MIN No REFERENCE Nov 02 informati RANGE: 2017 6:15 glomerula on in >60 AM r source ML/MIN/1. filtratio data 73 SQUARE n rate METERSIf (GF this patient is -A merican, then multiply theresult by 1.210. Glucose 74 - 106 mg/dL Normal No Nov 02 [Mass/vol informati 2016 6:15 ume] in on in AM Serum or source Plasma data Potassium 3.5 - 5.1 mmoL/L Normal No Nov 02 informati 2016 6:15 [Moles/vo on in AM lume] in source Serum or data Plasma Sodium 136 - 145 mmoL/L Normal No Oct 14 [Moles/vo informati 2016 6:15 lume] in on in AM Serum or source Plasma data Lactate [Moles/volume] in Blood Observa Value Referen Units Interpr Notes Date tion ce etation Range Lactate 0.4 - 2.0 mmol/L Normal No Oct 13 [Moles/vo informati 2016 lume] in on in 12:20 AM Blood source data Urinalysis dipstick W Reflex Microscopic panel in Urine Observa Value Referen Units Interpr Notes Date tion ce etation Range Appeara CLEAR CLEAR No No No Oct 13 nce of informa informa informa 2017 Urine tion in tion in tion in 12:15 source source source AM data data data Bacteri OCC O No No No Nov 01 a informa informa informa 2017 [Presen tion in tion in tion in 12:15 ce] in source source source AM Urine data data data sedimen t by Light microsc opy Bilirub NEGATIV NEG No No No Nov 01 in E informa informa informa 2017 [Presen tion in tion in tion in 12:15 ce] in source source source AM Urine data data data by Test strip Erythro NEGATIV NEG No No No Nov 01 cytes E informa informa informa 2017 [Presen tion in tion in tion in 12:15 ce] in source source source AM Urine data data data Color YELLOW YELLOW No No No Nov 01 of informa informa informa 2017 Urine tion in tion in tion in 12:15 source source source AM data data data Glucose NEG No No No Nov 01 [Mass/vol informati informati informati 2017 ume] in on in on in on in 12:15 AM Urine by source source source Test data data data strip Ketones NEGATIV NEG mg/dL No No Nov 01 E informa informa 2016 [Presen tion in tion in 12:15 ce] in source source AM Urine data data by Automat ed test strip Mucus NEGATIV NEG No No No Nov 01 [Presen E informa informa informa 2016 ce] in tion in tion in tion in 12:15 Urine source source source AM sedimen data data data t by Light microsc opy Nitrite NEGATIV NEG No No No Nov 01 E informa informa informa 2016 [Presen tion in tion in tion in 12:15 ce] in source source source AM Urine data data data by Test strip pH of 5.0 - 8.5 No Normal No Nov 01 Urine informati informati 2017 on in on in 12:15 AM source source data data Protein NEG mg/dL No No Nov 01 [Mass/vol informati informati 2017 ume] in on in on in 12:15 AM Urine by source source Automated data data test strip Erythro 3-5 0 rbc/hpf No No Nov 01 cytes informa informa 2016 [Presen tion in tion in 12:15 ce] in source source AM Urine data data sedimen t by Light microsc opy Specific 1.005 - No Normal No Nov 01 gravity 1.030 informati informati 2017 of Urine on in on in 12:15 AM source source data data Urobili 0.2 NEG E.U./dL No No Nov 01 nogen informa informa 2016 [Presen tion in tion in 12:15 ce] in source source AM Urine data data by Test strip Urinalysis dipstick W Reflex Microscopic panel in Urine Observa Value Referen Units Interpr Notes Date tion ce etation Range Appeara CLEAR CLEAR No No No Nov 01 nce of informa informa informa 2017 Urine tion in tion in tion in 12:15 source source source AM data data data Bilirub NEGATIV NEG No No No Nov 01 in E informa informa informa 2016 [Presen tion in tion in tion in 12:15 ce] in source source source AM Urine data data data by Test strip Erythro NEGATIV NEG No No No Nov 01 cytes E informa informa informa 2016 [Presen tion in tion in tion in 12:15 ce] in source source source AM Urine data data data Color YELLOW YELLOW No No No Nov 01 of informa informa informa 2016 Urine tion in tion in tion in 12:15 source source source AM data data data Glucose NEG No No No Nov 01 [Mass/vol informati informati informati 2016 ume] in on in on in on in 12:15 AM Urine by source source source Test data data data strip Ketones NEGATIV NEG mg/dL No No Nov 01 E informa informa 2016 [Presen tion in tion in 12:15 ce] in source source AM Urine data data by Automat ed test strip Mucus NEGATIV NEG No No No Nov 01 [Presen E informa informa informa 2016 ce] in tion in tion in tion in 12:15 Urine source source source AM sedimen data data data t by Light microsc opy Nitrite NEGATIV NEG No No No Nov 01 E informa informa informa 2016 [Presen tion in tion in tion in 12:15 ce] in source source source AM Urine data data data by Test strip pH of 5.0 - 8.5 No Normal No Nov 01 Urine informati informati 2017 on in on in 12:15 AM source source data data Protein NEG mg/dL No No Nov 01 [Mass/vol informati informati 2016 ume] in on in on in 12:15 AM Urine by source source Automated data data test strip Specific 1.005 - No Normal No Nov 01 gravity 1.030 ati 2016 of Urine on in on in 12:15 AM source source data data Urobili 0.2 NEG E.U./dL No No Nov 01 nogen informa informa 2016 [Presen tion in tion in 12:15 ce] in source source AM Urine data data by Test strip Digoxin [Mass/volume] in Serum or Plasma Observa Value Referen Units Interpr Notes Date tion ce etation Range Digoxin 1.15 - ng/mL Normal No Nov 01 [Mass/vol 2.56 informati 2016 ume] in on in Serum or source Plasma data CBC W Auto Differential panel in Blood Observa Value Referen Units Interpr Notes Date ti ce etation Range Basophils 0 - 0.2 K/MM3 Normal No Oct 312016 9:52 [#/volume on in PM ] in source Blood by data Automated count Basophils 0.1 - 2.0 % Normal No Oct 31 informati 2016 9:52 leukocyte on in PM s in source Blood by data Automated count Eosinophi 0.0 - 0.4 K/mm3 High No Oct 31 ls ati 2016 9:52 [#/volume on in PM ] in source Blood by data Automated count Eosinophi 0.1 - % Normal No Oct 31 ls/100 12.0 informati 2016 9:52 leukocyte on in PM s in source Blood by data Automated count Granulocy 1.3 - 8.0 K/mm3 High No Oct 31 anisa informati 2016 9:52 [#/volume on in PM ] in source Blood by data Automated count Granulocy 37.0 - % Normal No Oct 31 anisa/100 80.0 informati 2016 9:52 leukocyte on in PM s in source Blood by data Automated count Hematocri 42.0 - % Normal No Oct 31 t [Volume 52.0 ati 2016 9:52 on in PM Fraction] source of Blood data Hemoglobi 14.1 - g/dL No No Oct 31 n 18.0 informati informati 2016 9:52 [Mass/vol on in on in PM ume] in source source Blood data data Lymphocyt 0.7 - 4.5 K/mm3 High No Oct 31 es informati 2016 9:52 [#/volume on in PM ] in source Unspecifi data ed specimen by Automated count Lymphocyt 10 - 50 % Normal No Oct 31 es informati 2016 9:52 [#/volume on in PM ] in source Unspecifi data ed specimen by Automated count Erythrocy 27 - 31.2 pg Low No Oct 31 te mean informati 2016 9:52 corpuscul on in PM ar source hemoglobi data n [Entitic mass] Erythrocy 31.8 - g/dl Normal No Oct 31 te mean 35.4 informati 2016 9:52 corpuscul on in PM ar source hemoglobi data n concentra tion [Mass/vol ume] by Automated count Erythrocy 82.2 - fl Normal No Oct 31 te mean 97.8 informati 2016 9:52 corpuscul on in PM ar volume source [Entitic data volume] by Automated count Monocytes 0.1 - 1.0 K/mm3 Normal No Oct 31 informati 2016 9:52 [#/volume on in PM ] in source Blood by data Automated count Monocytes 1.7 - 9.3 % Normal No Oct 31 / informati 2017 9:52 leukocyte on in PM s in source Blood by data Automated count Platelet 7.4 - fl Normal No Oct 31 mean 10.4 informati 2017 9:52 volume on in PM [Entitic source volume] data in Blood by Automated count Platelets 142 - 424 K/mm3 Normal No Oct 31 informati 2017 9:52 [#/volume on in PM ] in source Blood data Erythrocy 4.6 - 6.2 M/mm3 Normal No Oct 31 anisa informati 2016 9:52 [#/volume on in PM ] in source Amniotic data fluid Erythrocy 11.5 - % Normal No Oct 31 te 17.5 informati 2016 9:52 distribut on in PM ion width source [Entitic data volume] by Automated count Leukocyte 4.8 - K/MM3 High No Oct 31 s 10.8 alert informati 2017 9:52 [#/volume on in PM ] in source Blood data Differential panel, method unspecified - Observa Value Referen Units Interpr Notes Date tion ce etation Range Anisocy 1+ No No No No Oct 31 tosis informa informa informa informa 2017 [Presen tion in tion in tion in tion in 9:52 PM ce] in source source source source Blood data data data data Eosinophi 0 - 3 % High No Oct 31 ls/ inform2016 9:52 leukocyte on in PM s in source Blood by data Manual count LYMPH 27 10 - 50 % Normal No Oct 31 inform2016 tion in 9:52 PM source data Monocytes 2 - 9 % Normal No Oct 312016 9:52 leukocyte on in PM s in source Blood by data Automated count Platele NORMAL No No No No Oct 31 ts informa informa inform inform2016 [Presen tion in tion in tion in tion in 9:52 PM ce] in source source source source Blood data data data data by Light microsc opy Neutrophi 42 - 76 % Normal No Oct 31 ls 2016 9:52 [#/volume on in PM ] in source Blood by data Automated count Cells No #CELLS No No Oct 31 Counted informati ati 2016 9:52 Total [#] on in on in on in PM in Blood source source source data data data CBC W Auto Differential panel in Blood Observa Value Referen Units Interpr Notes Date tion ce etation Range Basophils 0 - 0.2 K/MM3 Normal No Oct 272016 4:10 [#/volume on in AM ] in source Blood by data Automated count Basophils 0.1 - 2.0 % Normal No Oct 27 informati 2016 4:10 leukocyte on in AM s in source Blood by data Automated count Eosinophi 0.0 - 0.4 K/mm3 Normal No Oct 27 ls ati 2016 4:10 [#/volume on in AM ] in source Blood by data Automated count Eosinophi 0.1 - % Low No Oct 27 12.0 informati 2016 4:10 leukocyte on in AM s in source Blood by data Automated count Granulocy 1.3 - 8.0 K/mm3 High No Oct 27 anisa ati 2016 4:10 [#/volume on in AM ] in source Blood by data Automated count Granulocy 37.0 - % High No Oct 27 anisa/100 80.0 informati 2016 4:10 leukocyte on in AM s in source Blood by data Automated count Hematocri 42.0 - % Normal No Oct 27 t [Volume 52.0 ati 2016 4:10 on in AM Fraction] source of Blood data Hemoglobi 14.1 - g/dL Low No Oct 27 n 18.0 informati 2016 4:10 [Mass/vol on in AM ume] in source Blood data Lymphocyt 0.7 - 4.5 K/mm3 Normal No Oct 27 es informati 2017 4:10 [#/volume on in AM ] in source Unspecifi data ed specimen by Automated count Lymphocyt 10 - 50 % Normal No Oct 27 es informati 2016 4:10 [#/volume on in AM ] in source Unspecifi data ed specimen by Automated count Erythrocy 27 - 31.2 pg Low No Oct 27 te mean informati 2016 4:10 corpuscul on in AM ar source hemoglobi data n [Entitic mass] Erythrocy 31.8 - g/dl Low No Oct 27 te mean 35.4 informati 2016 4:10 corpuscul on in AM ar source hemoglobi data n concentra tion [Mass/vol ume] by Automated count Erythrocy 82.2 - fl Normal No Oct 27 te mean 97.8 informati 2016 4:10 corpuscul on in AM ar volume source [Entitic data volume] by Automated count Monocytes 0.1 - 1.0 K/mm3 Normal No Oct 27 informati 2016 4:10 [#/volume on in AM ] in source Blood by data Automated count Monocytes 1.7 - 9.3 % Normal No Oct 27 /100 informati 2017 4:10 leukocyte on in AM s in source Blood by data Automated count Platelet 7.4 - fl Normal No Oct 27 mean 10.4 informati 2016 4:10 volume on in AM [Entitic source volume] data in Blood by Automated count Platelets 142 - 424 K/mm3 Normal No Oct 27 informati 2016 4:10 [#/volume on in AM ] in source Blood data Erythrocy 4.6 - 6.2 M/mm3 Normal No Oct 27 anisa informati 2017 4:10 [#/volume on in AM ] in source Amniotic data fluid Erythrocy 11.5 - % Normal No Oct 27 te 17.5 informati 2016 4:10 distribut on in AM ion width source [Entitic data volume] by Automated count Leukocyte 4.8 - K/MM3 High No Oct 27 s 10.8 informati 2016 4:10 [#/volume on in AM ] in source Blood data Differential panel, method unspecified - Observa Value Referen Units Interpr Notes Date tion ce etation Range Anisocy 1+ No No No No Oct 27 tosis informa informa informa informa 2016 [Presen tion in tion in tion in tion in 4:10 AM ce] in source source source source Blood data data data data Neutrophi 0 - 8 % Normal No Oct 27 ls.band informati 2017 4:10 form/100 on in AM leukocyte source s in data Blood by Automated count Hypochr 1+ No No No No Oct 27 omia informa informa informa informa 2016 [Presen tion in tion in tion in tion in 4:10 AM ce] in source source source source Blood data data data data LYMPH 14 10 - 50 % Normal No Oct 27 informa 2016 tion in 4:10 AM source data Platele NORMAL No No No No Oct 27 ts informa informa informa informa 2016 [Presen tion in tion in tion in tion in 4:10 AM ce] in source source source source Blood data data data data by Light microsc opy Poikilo SL. No No No No Oct 27 cytosis informa informa informa informa 2016 tion in tion in tion in tion in 4:10 AM [Presen source source source source ce] in data data data data Blood by Light microsc opy Neutrophi 42 - 76 % High No Oct 27 ls informati 2016 4:10 [#/volume on in AM ] in source Blood by data Automated count Rouleau SL. No No No No Oct 27 x informa informa informa informa 2016 [Presen tion in tion in tion in tion in 4:10 AM ce] in source source source source Blood data data data data by Light microsc opy Cells No #CELLS No No Oct 27 Counted informati informati informati 2017 4:10 Total [#] on in on in on in AM in Blood source source source data data data Basic metabolic panel in Blood Observa Value Referen Units Interpr Notes Date tion ce etation Range Urea 7 - 18 mg/dL High No Oct 27 nitrogen informati 2017 4:10 [Mass/vol on in AM ume] in source Serum or data Plasma Calcium 8.5 - mg/dL Low No Oct 27 [Mass/vol 10.1 informati 2017 4:10 ume] in on in AM Serum or source Plasma data Chloride 98 - 107 mmoL/L Normal No Oct 27 [Moles/vo informati 2016 4:10 lume] in on in AM Serum or source Plasma data Carbon 21.0 - mmoL/L High No Oct 27 dioxide, 32.0 informati 2016 4:10 total on in AM [Moles/vo source lume] in data Serum or Plasma Creatinin 0.70 - mg/dL Normal No Oct 27 e 1.30 informati 2016 4:10 [Mass/vol on in AM ume] in source Serum or data Plasma Creatinin 50 - 200 ML/MIN Normal No Oct 27 e renal informati 2016 4:10 clearance on in AM source predicted data by Cockcroft -Gault formula Estimated >60 ML/MIN No REFERENCE Oct 27 informati RANGE: 2017 4:10 glomerula on in >60 AM r source ML/MIN/1. filtratio data 73 SQUARE n rate METERSIf (GF this patient is -A merican, then multiply theresult by 1.210. Glucose 74 - 106 mg/dL High No Oct 27 [Mass/vol informati 2016 4:10 ume] in on in AM Serum or source Plasma data Potassium 3.5 - 5.1 mmoL/L Normal No Oct 27 informati 2016 4:10 [Moles/vo on in AM lume] in source Serum or data Plasma Sodium 136 - 145 mmoL/L Normal No Oct 27 [Moles/vo informati 2016 4:10 lume] in on in AM Serum or source Plasma data Basic metabolic panel in Blood Observa Value Referen Units Interpr Notes Date tion ce etation Range Urea 7 - 18 mg/dL Normal No Oct 25 nitrogen informati 2016 5:30 [Mass/vol on in AM ume] in source Serum or data Plasma Calcium 8.5 - mg/dL Normal No Oct 25 [Mass/vol 10.1 informati 2016 5:30 ume] in on in AM Serum or source Plasma data Chloride 98 - 107 mmoL/L Normal No Oct 25 [Moles/vo informati 2016 5:30 lume] in on in AM Serum or source Plasma data Carbon 21.0 - mmoL/L Normal No Oct 25 dioxide, 32.0 informati 2016 5:30 total on in AM [Moles/vo source lume] in data Serum or Plasma Creatinin 0.70 - mg/dL Normal No Oct 25 e 1.30 informati 2016 5:30 [Mass/vol on in AM ume] in source Serum or data Plasma Creatinin 50 - 200 ML/MIN Normal No Oct 25 e renal informati 2016 5:30 clearance on in AM source predicted data by Cockcroft -Gault formula Estimated >60 ML/MIN No REFERENCE Oct 25 informati RANGE: 2017 5:30 glomerula on in >60 AM r source ML/MIN/1. filtratio data 73 SQUARE n rate METERSIf (GF this patient is -A merican, then multiply theresult by 1.210. Glucose 74 - 106 mg/dL High No Oct 25 [Mass/vol informati 2016 5:30 ume] in on in AM Serum or source Plasma data Potassium 3.5 - 5.1 mmoL/L Normal No Oct 25 informati 2016 5:30 [Moles/vo on in AM lume] in source Serum or data Plasma Sodium 136 - 145 mmoL/L Normal No Oct 25 [Moles/vo informati 2016 5:30 lume] in on in AM Serum or source Plasma data CBC W Auto Differential panel in Blood Observa Value Referen Units Interpr Notes Date tion ce etation Range Basophils 0 - 0.2 K/MM3 Normal No Oct 25 informati 2016 5:30 [#/volume on in AM ] in source Blood by data Automated count Basophils 0.1 - 2.0 % Normal No Oct 25 informati 2016 5:30 leukocyte on in AM s in source Blood by data Automated count Eosinophi 0.0 - 0.4 K/mm3 Normal No Oct 25 ls informati 2016 5:30 [#/volume on in AM ] in source Blood by data Automated count Eosinophi 0.1 - % Normal No Oct 25 ls/100 12.0 informati 2016 5:30 leukocyte on in AM s in source Blood by data Automated count Granulocy 1.3 - 8.0 K/mm3 High No Oct 25 anisa informati 2016 5:30 [#/volume on in AM ] in source Blood by data Automated count Granulocy 37.0 - % High No Oct 25 anisa/100 80.0 informati 2016 5:30 leukocyte on in AM s in source Blood by data Automated count Hematocri 42.0 - % Normal No Oct 25 t [Volume 52.0 informati 2017 5:30 on in AM Fraction] source of Blood data Hemoglobi 14.1 - g/dL Normal No Oct 25 n 18.0 informati 2017 5:30 [Mass/vol on in AM ume] in source Blood data Lymphocyt 0.7 - 4.5 K/mm3 Normal No Oct 25 es informati 2017 5:30 [#/volume on in AM ] in source Unspecifi data ed specimen by Automated count Lymphocyt 10 - 50 % Normal No Oct 25 es informati 2016 5:30 [#/volume on in AM ] in source Unspecifi data ed specimen by Automated count Erythrocy 27 - 31.2 pg Low No Oct 25 te mean informati 2017 5:30 corpuscul on in AM ar source hemoglobi data n [Entitic mass] Erythrocy 31.8 - g/dl Low No Oct 25 te mean 35.4 informati 2017 5:30 corpuscul on in AM ar source hemoglobi data n concentra tion [Mass/vol ume] by Automated count Erythrocy 82.2 - fl Normal No Oct 25 te mean 97.8 informati 2016 5:30 corpuscul on in AM ar volume source [Entitic data volume] by Automated count Monocytes 0.1 - 1.0 K/mm3 Normal No Oct 25 informati 2017 5:30 [#/volume on in AM ] in source Blood by data Automated count Monocytes 1.7 - 9.3 % Low No Oct 6 /100 informati 2017 5:30 leukocyte on in AM s in source Blood by data Automated count Platelet 7.4 - fl Normal No Oct 25 mean 10.4 informati 2017 5:30 volume on in AM [Entitic source volume] data in Blood by Automated count Platelets 142 - 424 K/mm3 Normal No Oct 25 informati 2017 5:30 [#/volume on in AM ] in source Blood data Erythrocy 4.6 - 6.2 M/mm3 Normal No Oct 25 anisa informati 2017 5:30 [#/volume on in AM ] in source Amniotic data fluid Erythrocy 11.5 - % Normal No Oct 25 te 17.5 informati 2017 5:30 distribut on in AM ion width source [Entitic data volume] by Automated count Leukocyte 4.8 - K/MM3 High No Oct 25 s 10.8 informati 2016 5:30 [#/volume on in AM ] in source Blood data Urinalysis dipstick W Reflex Microscopic panel in Urine Observa Value Referen Units Interpr Notes Date tion ce etation Range Appeara CLEAR CLEAR No No No Oct 24 nce of informa informa informa 2017 Urine tion in tion in tion in 5:10 PM source source source data data data Bacteri TRACE O No No No Oct 24 a informa informa informa 2016 [Presen tion in tion in tion in 5:10 PM ce] in source source source Urine data data data sedimen t by Light microsc opy Bilirub NEGATIV NEG No No No Oct 24 in E informa informa informa 2017 [Presen tion in tion in tion in 5:10 PM ce] in source source source Urine data data data by Test strip Erythro NEGATIV NEG No No No Oct 24 cytes E informa informa informa 2016 [Presen tion in tion in tion in 5:10 PM ce] in source source source Urine data data data Color YELLOW YELLOW No No No Oct 24 of informa informa informa 2016 Urine tion in tion in tion in 5:10 PM source source source data data data Glucose NEG No No No Oct 24 [Mass/vol informati informati informati 2017 5:10 ume] in on in on in on in PM Urine by source source source Test data data data strip Hyaline OCC NONE #/lpf No No Oct 24 casts informa informa 2016 [Presen tion in tion in 5:10 PM ce] in source source Urine data data sedimen t by Light microsc opy Ketones NEGATIV NEG mg/dL No No Oct 24 E informa informa 2016 [Presen tion in tion in 5:10 PM ce] in source source Urine data data by Automat ed test strip Mucus NEGATIV NEG No No No Oct 24 [Presen E informa informa informa 2017 ce] in tion in tion in tion in 5:10 PM Urine source source source sedimen data data data t by Light microsc opy Nitrite NEGATIV NEG No No No Oct 24 E informa informa informa 2016 [Presen tion in tion in tion in 5:10 PM ce] in source source source Urine data data data by Test strip pH of 5.0 - 8.5 No Normal No Oct 24 Urine informati informati 2017 5:10 on in on in PM source source data data Protein NEG mg/dL No No Oct 24 [Mass/vol informati informati 2016 5:10 ume] in on in on in PM Urine by source source Automated data data test strip Erythro 3-5 0 rbc/hpf No No Oct 24 cytes informa informa 2016 [Presen tion in tion in 5:10 PM ce] in source source Urine data data sedimen t by Light microsc opy Specific 1.005 - No Normal No Oct 24 gravity 1.030 informati informati 2017 5:10 of Urine on in on in PM source source data data Epithel OCC OCC #/hpf No No Oct 24 ial informa informa 2016 cells.s tion in tion in 5:10 PM quamous source source data data [Presen ce] in Urine sedimen t by Microsc opy high power field Urobili 0.2 NEG E.U./dL No No Oct 24 nogen informa informa 2016 [Presen tion in tion in 5:10 PM ce] in source source Urine data data by Test strip Leukocyte O wbc/hpf No No Oct 24 s informati informati 2017 5:10 [#/volume on in on in PM ] in source source Urine data data Urinalysis dipstick W Reflex Microscopic panel in Urine Observa Value Referen Units Interpr Notes Date tion ce etation Range Appeara CLEAR CLEAR No No No Oct 24 nce of informa informa informa 2017 Urine tion in tion in tion in 5:10 PM source source source data data data Bilirub NEGATIV NEG No No No Oct 24 in E informa informa informa 2016 [Presen tion in tion in tion in 5:10 PM ce] in source source source Urine data data data by Test strip Erythro NEGATIV NEG No No No Oct 24 cytes E informa informa informa 2016 [Presen tion in tion in tion in 5:10 PM ce] in source source source Urine data data data Color YELLOW YELLOW No No No Oct 24 of informa informa informa 2017 Urine tion in tion in tion in 5:10 PM source source source data data data Glucose NEG No No No Oct 24 [Mass/vol informati informati informati 2016 5:10 ume] in on in on in on in PM Urine by source source source Test data data data strip Ketones NEGATIV NEG mg/dL No No Oct 24 E informa informa 2016 [Presen tion in tion in 5:10 PM ce] in source source Urine data data by Automat ed test strip Mucus NEGATIV NEG No No No Oct 24 [Presen E informa informa informa 2016 ce] in tion in tion in tion in 5:10 PM Urine source source source sedimen data data data t by Light microsc opy Nitrite NEGATIV NEG No No No Oct 24 E informa informa informa 2016 [Presen tion in tion in tion in 5:10 PM ce] in source source source Urine data data data by Test strip pH of 5.0 - 8.5 No Normal No Oct 24 Urine informati informati 2016 5:10 on in on in PM source source data data Protein NEG mg/dL No No Oct 24 [Mass/vol informati informati 2016 5:10 ume] in on in on in PM Urine by source source Automated data data test strip Specific 1.005 - No Normal No Oct 24 gravity 1.030 informati informati 2016 5:10 of Urine on in on in PM source source data data Urobili 0.2 NEG E.U./dL No No Oct 24 nogen informa informa 2016 [Presen tion in tion in 5:10 PM ce] in source source Urine data data by Test strip Natriutietic peptide B [Mass/volume] in Serum or Plasma Observa Value Referen Units Interpr Notes Date ti ce etation Range Natriutie 0 - 100 pg/mL Normal No Oct 24 tic ati 2016 2:35 peptide B on in PM source [Mass/vol data ume] in Serum or Plasma CBC W Auto Differential panel in Blood Observa Value Referen Units Interpr Notes Date tion ce etation Range Basophils 0 - 0.2 K/MM3 Normal No Oct 24 inform2016 2:35 [#/volume on in PM ] in source Blood by data Automated count Basophils 0.1 - 2.0 % Normal No Oct 24 /100 informati 2016 2:35 leukocyte on in PM s in source Blood by data Automated count Eosinophi 0.0 - 0.4 K/mm3 High No Oct 24 ls 2016 2:35 [#/volume on in PM ] in source Blood by data Automated count Eosinophi 0.1 - % High No Oct 24 ls/100 12.0 inform2016 2:35 leukocyte on in PM s in source Blood by data Automated count Granulocy 1.3 - 8.0 K/mm3 High No Oct 24 anisa inform2016 2:35 [#/volume on in PM ] in source Blood by data Automated count Granulocy 37.0 - % Normal No Oct 24 anisa/100 80.0 inform2016 2:35 leukocyte on in PM s in source Blood by data Automated count Hematocri 42.0 - % Normal No Oct 24 t [Volume 52.0 2016 2:35 on in PM Fraction] source of Blood data Hemoglobi 14.1 - g/dL Normal No Oct 24 n 18.0 inform2016 2:35 [Mass/vol on in PM ume] in source Blood data Lymphocyt 0.7 - 4.5 K/mm3 High No Oct 24 es inform2016 2:35 [#/volume on in PM ] in source Unspecifi data ed specimen by Automated count Lymphocyt 10 - 50 % Normal No Oct 242016 2:35 [#/volume on in PM ] in source Unspecifi data ed specimen by Automated count Erythrocy 27 - 31.2 pg Low No Oct 24 te mean 2016 2:35 corpuscul on in PM ar source hemoglobi data n [Entitic mass] Erythrocy 31.8 - g/dl Low No Oct 24 te mean 35.4 inform2016 2:35 corpuscul on in PM ar source [...] 1.7 - 9.3 % Normal No Oct 24 /100 inform2016 2:35 leukocyte on in PM s in source Blood by data Automated count Platelet 7.4 - fl Normal No Oct 24 mean 10.4 inform2016 2:35 volume on in PM [Entitic source volume] data in Blood by Automated count Platelets 142 - 424 K/mm3 No No Oct 24 inform2016 2:35 [#/volume on in on in [...] 0 - 3 % High No Oct 24 ls/100 2016 2:35 leukocyte on in PM s in source Blood by data Manual count LYMPH 34 10 - 50 % Normal No Oct 242016 tion in 2:35 PM source data Monocytes 2 - 9 % Normal No Oct 242016 2:35 leukocyte [...] No #CELLS No No Oct 24 Counted ati ati inform2016 2:35 Total [#] on in on [...] 24 Blood by informati informati THE SX2 2017 2:35 Coagulati on in on in [id number] PM on assay source source CATION data data INR RANGETHER APY FOR DVT, PE, ATRIAL FIB; 2.0 - 3.0PROPHY LAXIS FOR VTETHERAP Y FOR MECHANICA L HEART 2.5 - 3.5VALVE; PREVENTIO N OF SYSTEMICE MBOLISM SECONDARY TO AMI Prothromb 9.4 - SECONDS Normal No Oct 24 in time 11.8 informati 2016 2:35 (PT) in on in PM [...] SECONDS Normal No Oct 24 partial 34.0 informati 2016 2:35 thrombpla on in PM stin time [...]
--- OUTSIDE RECORDS SUMMARY | 2016-11-15 14:21 | External Medical Summary Rpt ---
[...] 2017 2:35 Coagulati on in on in [id number] PM on assay source source CATION data [...]
[2016-11-15 15:09] LABS: BUN 29 mg/dL (7-18)
[2016-11-15 15:10] LABS: GFR (ESTIMATED) 42 ML/MIN (>60)
[2016-11-15 15:12] LABS: HEMOGLOBIN 16.9 g/dL (14.1-18.0); LYMPH # 1.9 K/mm3 (0.7-4.5); LYMPH % 7.3 % (10-50)
[2016-11-15] MEDS ORDERED: PREDNISONE50 MG PO (15:20)
[2016-11-15] MEDS ORDERED: CARDIZEM CD240 MG PO (15:24)
--- NOTE | 2016-11-15 17:30 | HISTORY AND PHYSICAL REPORT ---
Demographics: Admit date: 11/15/16 Chief complaint: Weakness PRIMARY DIAGNOSIS: A.FIB WITH RVR Allergies: Coded Allergies: No Known Allergies (10/26/16) History of present illness: History of present illness: 76-year-old male with recent history of sick sinus syndrome and placement of a pacemaker within the application integration engineer's office today and found to be in atrial fibrillation with rapid ventricular response along with signs of dehydration including hypotension. Patient was direct admitted to the medical surgical floor on the stepdown unit. Since admission he has been given a bolus of normal saline which is raised his blood pressure from 90 systolic to 120s. His heart rate remains in the 150s and is irregular but now that his blood pressure is elevated he has been placed on a Cardizem drip. Nursing staff reports pulse will vary between 150 and 80. Patient seems somewhat confused and somnolent on initial nursing evaluation, but nurse currently tells me he has become more lucid and is already looking better after receiving IV fluids. The patient himself has had a rough month. This is his third hospitalization this month. Patient has a tendency to do well while hospitalized but declines quickly once discharged. After his last discharge from the hospital he presented to my office within a few days with complaints of generalized weakness and "not doing well". He has had blood in his stool and his Eliquis was stopped. A complete blood count was performed which was significant for elevated white blood cell count which is likely secondary to chronic lymphocytic leukemia. Patient had brief episodes of a shocking-type chest pain. He was sent to the cardiology office for pacemaker interrogation. Patient tells me there was nothing wrong with his pacemaker. He followed up in the cardiology office today and was subsequently admitted. Patient's home life is somewhat rough. Even in his poor health he tries to take care of of his . He tells me that he did not have any air conditioning at home. Past medical history: Family HX Family Hx Insignificant No Diabetes No CAD No Hypertension Yes Hyperlipidemia No Cancer No TB No Immunization HX DT/Tetanus 1-4 Years Ago Flu Refused Pneumonia Received In Past TB Test in last year No General CAD? Yes Angina: No ID: Yes Hypertension? Yes Hyperlipidemia? Yes CHF? No DVT? No PE? No COPD? Yes Asthma? Yes Anemia? No GERD? No Gastric ulcers? No GI Bleed? No Hernia? No Thyroid Problems? No Hypothyroidism? No CVA? No Seizures? No Diabetes? No Renal Insuffiency? No UTI? No Stones? No GB Disease: No Nephritic Syndrome? No Asplenia? No Hepatitis? No Sickle Cell Disease? No Arthritis? No Migraines? No Cataracts? Yes Glaucoma? No MRSA? No HIV? No TB? No Anxiety? No Depression? No Cancer? No More? Yes Additional hx: ATRIAL FIB Past Surgical HX Previous Surgery?Y HERNIA REPAIR 1960'S LT MUSCLE ARM & LEG RIGHT KNEE SURGERY CATARACTS ON R EYE HERNIA 2016 CARDIAC PACER 10/25/16 Current home meds: Active Scripts Apixaban (Eliquis) 5 MG PO BID #60 TAB Ref 2 Prov: 10/27/16 Reported Medications Omeprazole (Omeprazole 20MG) 40 MG PO DAILY 30 Days Furosemide 40 MG PO BID #30 HYDROCODONE/ACETAMINOPHEN (Hydrocodon-Acetaminophen 5-325) 1 TAB PO DAILYP PRN PAIN #30 TAB CETIRIZINE HCL (Cetirizine 10MG) 10 MG PO DAILYP PRN ALLERGIES UMECLIDINIUM BRM/VILANTEROL TR (Anoro Ellipta 62.5-25 Mcg INH) 1 POW IH DAILY Fluticasone Furoate (Arnuity Ellipta) 100 MCG IH DAILY NITROGLYCERIN (Nitrostat) 0.4 MG SL [id number] PRN CHEST PAIN Roflumilast (Daliresp) 500 MCG PO DAILY Prednisone (Prednisone 50MG) 50 MG PO DAILY DILTIAZEM HCL (Diltiazem 24HR Cd) 240 MG PO BID Aspirin (Aspirin EC) 81 MG PO DAILY 30 Days Potassium Chloride 10 MEQ PO DAILY 30 Days Cyclobenzaprine Hcl (Cyclobenzaprine 10MG) 10 MG PO DAILY TAMSULOSIN HCL (Tamsulosin 0.4MG) 0.4 MG PO QHS Digoxin (Digitek) 250 MCG PO DAILY Social Hx: Smoking HX Tobacco Yes Packs/day < 1 PACK Are you/the child exposed to second-hand smoke: No Alcohol Alcohol: No Hx of Drug Use Drug Use? No Review of systems: Constitutional weakness. Respiratory cough, shortness of breath, SOB with excertion, SOB at rest. Cardiovascular chest pain, palpitations Gastrointestinal/Abdominal no symptoms reported Genitourinary no symptoms reported. Musculoskeletal no symptoms reported. Neurological Yes: see HPI. Exam: Lab data for last 24 hours: Laboratory Tests 11/15/16 1430: Sodium 133 L, Potassium 3.4 L, Chloride 98, Carbon Dioxide 26, BUN 29 H, Creatinine 1.6 H, Estimated GFR (MDRD) 42, Glucose 148 H, Calcium 8.9, Total Bilirubin 1.2 H, AST 11 L, ALT 16, Alkaline Phosphatase 114, Troponin I < 0.02 , B-Natriuretic Peptide 45, Total Protein 7.1, Albumin 3.3 L, Globulin 3.8 H, Albumin/Globulin Ratio 0.9 L, WBC 25.1 *H, RBC 6.23 H, Hgb 16.9, Hct 51.8, MCV 83.1, RDW 16.0, Plt Count 183, MPV 9.3, Gran % 89.0 H, Gran # 22.4 H, Lymphocytes % 7.3 L, Monocytes % 3.0, Eosinophils % 0.4, Basophils % 0.2, Lymphocytes # 1.9, Monocytes # 0.8, Eosinophils # 0.1, Basophils # 0.1, PUBS MCHC 32.7, MCH 27.2 Admission vital signs: 1ST Vital Signs Result Date Time Pulse Ox 96 11/15 1542 B/P 111/82 11/15 1542 O2 Delivery OXYGEN 11/15 1542 Temp 98.9 11/15 1542 Pulse 155 11/15 1542 Resp 22 11/15 1542 Additional information: Elderly male, somewhat disheveled, is not appear distressed. Oropharynx is dry. Neck is without lymphadenopathy or carotid bruits. Lungs have scattered rhonchi which is baseline for the patient. Heart is irregularly irregular and tachycardic. Abdomen is soft and nontender. Extremities are warm to the touch and there is no edema. Plan: Problem List 1. 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 Cardiac pacemaker in situ 4. COPD (chronic obstructive pulmonary disease) Plan: 1. Admit to stepdown on IV fluids. Patient is received a 2 L bolus and will continue with normal saline at 100 ML's per hour. Continue Cardizem drip. Patient was given metoprolol initially to avoid any effect on blood pressure. Now the blood pressure has improved I will stop his metoprolol and place him on bisoprolol which he was on previously. When the patient was on both Xarelto and Eliquis he developed gastrointestinal bleeding. Patient will be given Lovenox while hospitalized. Cardiology has been consult 2. Home medications for chronic obstructive pulmonary disease 3. A peripheral smear has been ordered for CLL
[2016-11-15 17:52] LABS: NEUTROPHILS 90 % (42-76)
[2016-11-16] VITALS (8 sets, daily range): BP systolic 86–112; BP diastolic 49–67
[2016-11-16 06:02] LABS: LYMPH # 3.4 K/mm3 (0.7-4.5); LYMPH % 24.4 % (10-50)
[2016-11-16 06:23] LABS: HEMOGLOBIN 14.6 g/dL (14.1-18.0)
--- NOTE | 2016-11-16 07:03 | ACUTE CARE PROGRESS NOTE (QUA) ---
Progress Notes Subjective Date 11/16/16 Time 0700 Note Patient tells me he feels slightly better today but "not much". He continues to have a cough with white and yellow sputum production. Sputum culture has been sent. Yesterday evening around 9 PM he converted to a paced rhythm. Cardizem drip was stopped and he was continued on beta blockers. Oral Cardizem was held due to hypotension. Patient is awake and alert this morning. Lungs have some diffuse and scattered rhonchi. Heart has a regular rhythm. Abdomen is soft. Patient be removed from stepdown to acute care bed. Continue telemetry monitoring. Beta blockers didn't changed to bisoprolol. Continue digoxin. PT and OT consults have been ordered as I anticipate placing the patient in swing bed for some physical rehabilitation. Objective Findings Last VS-Temp:96.7 B/P:108/67 Pulse:73 Resp:18 SaO2:98 ROOM AIR Last weight lbs:170 oz:4 K.225 Method:Bed Scales Laboratory Tests 11/16/16 0535: Sodium 136, Potassium 3.5, Chloride 103, Carbon Dioxide 26, BUN 19 H, Creatinine 1.0, Estimated Creat Clear 70, Estimated GFR (MDRD) 73, Glucose 90, Calcium 8.0 L, WBC 14.1 H, RBC 5.38, Hgb 14.6, Hct 45.8, MCV 85.1, RDW 16.4, Plt Count 154, MPV 8.7, Gran % 69.2, Gran # 9.7 H, Lymphocytes % 24.4, Monocytes % 3.2, Eosinophils % 3.0, Basophils % 0.3, Lymphocytes # 3.4, Monocytes # 0.4, Eosinophils # 0.4, Basophils # 0.0, PUBS MCHC 31.8, MCH 27.1 11/15/16 1430: Sodium 133 L, Potassium 3.4 L, Chloride 98, Carbon Dioxide 26, BUN 29 H, Creatinine 1.6 H, Estimated GFR (MDRD) 42, Glucose 148 H, Calcium 8.9, Total Bilirubin 1.2 H, AST 11 L, ALT 16, Alkaline Phosphatase 114, Troponin I < 0.02 , B-Natriuretic Peptide 45, Total Protein 7.1, Albumin 3.3 L, Globulin 3.8 H, Albumin/Globulin Ratio 0.9 L, WBC 25.1 *H, RBC 6.23 H, Hgb 16.9, Hct 51.8, MCV 83.1, RDW 16.0, Plt Count 183, MPV 9.3, Gran % 89.0 H, Gran # 22.4 H, Total Counted 100, Lymphocytes % 7.3 L, Monocytes % 3.0, Eosinophils % 0.4, Basophils % 0.2, Neutrophils 90 H, Lymphocytes (Manual) 7 L, Lymphocytes # 1.9, Monocytes (Manual) 2, Monocytes # 0.8, Eosinophils # 0.1, Basophils # 0.1, RBC/ WBC/PLT Morphology NORMAL, Atypical Lymphocytes 1, Platelet Estimate NORMAL, PUBS MCHC 32.7, MCH 27.2 Microbiology 11/15 2199 SPUTUM: Sputum Culture - RES 11/15 2199 SPUTUM: Gram Stain - RES Vital Signs Date Time Temp Pulse Resp B/P Pulse O2 O2 Flow FiO2 Ox Delivery Rate 11/16 0632 2 11/16 0632 98 ROOM AIR 11/16 0600 73 108/67 100 ROOM AIR 11/16 0504 93 ROOM AIR 11/16 0400 96.7 70 18 105/60 94 11/16 0304 3 11/16 0211 3 11/16 0200 77 98/65 97 OXYGEN 3 11/16 0148 18 11/16 0145 3 11/16 0110 3 11/16 0000 70 93/62 99 OXYGEN 3 11/15 2351 3 Assessment/Plan Problem List 1. 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 Cardiac pacemaker in situ 4. COPD (chronic obstructive pulmonary disease) Patient condition Stable Plan: continue current care This inpt stay is expected to cross 2 MNs from start of care Yes
--- NOTE | 2016-11-16 07:47 | PHARMACY CLINIC NOTE ---
Patient Demographics Patient Demographics Admission date: 11/15/16 Date: 11/16/16 Time: 0747 Allergies Coded Allergies: No Known Allergies (10/26/16) HEIGHT- FT: 6 IN: 0.00 K.214 VTE General Information Labs: Laboratory Tests 11/16 11/15 0535 1430 Hematology Hgb (14.1 - 18.0 g/dL) 14.6 16.9 Hct (42.0 - 52.0 %) 45.8 51.8 Plt Count (142 - 424 K/mm3) 154 183 Disclaimer The following section includes nursing documentation that has been pulled in for pharmacy review. Patient's VTE score: 3 Patient's VTE Risk: LOW RISK Clinical trial participant? No VTE prophylaxis [id number] [id number] VTE prophylaxis ordered? Yes Type of prophylaxis/treatment: KISHOR at 0747
[2016-11-16] MEDS ORDERED: CARTIA XT120 MG PO (10:25)
[2016-11-16] MEDS ORDERED: APAP/HYDROCODON1 TA9 PO (10:30)
--- NOTE | 2016-11-16 17:34 | RADIOLOGY REPORT PS360 ---
CHEST(2 VIEWS-NOT PORTABLE) HISTORY: DYSPNEA ORDERING PHYSICIAN: Fletcher Stevenson MD PATIENT AGE: 76 years COMPARISON: 11/02/2016 FINDINGS: Bipolar pacer is present. There is normal heart size. Chronic pulmonary interstitial changes are noted with chronic bilateral pleural thickening. Patchy density in both lower lobes is chronic. This however somewhat more prominent in the lingula and could be due to superimposed pneumonia.. IMPRESSION: 1. Chronic interstitial changes with chronic pleural thickening and pleural calcification. 2. Suspect superimposed infiltrate and/or atelectatic change within the lingula
[2016-11-17] VITALS (7 sets, daily range): BP systolic 111–131; BP diastolic 64–77
--- NOTE | 2016-11-17 07:08 | ACUTE CARE PROGRESS NOTE (QUA) ---
Progress Notes Subjective Date 11/17/16 Time 0705 Patient/family reports: cough (productive), fatigue (moderate constant), shortness of breath (at intervals) Objective Findings Last VS-Temp:97.5 B/P:112/57 Pulse:72 Resp:18 SaO2:95 ROOM AIR Last weight lbs:181 oz:4 K.215 Method:Bed Scales Exam General appearance: awake, no acute distress Cardiovascular: regular rate & rhythm, pacemaker Respiratory: no respiratory distress, trachea midline, rhonchi (diffuse) Reviewed: medications, vital signs Assessment/Plan Problem List 1. 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 Cardiac pacemaker in situ 4. COPD (chronic obstructive pulmonary disease) Patient condition Stable Plan: continue current care, ambulate This inpt stay is expected to cross 2 MNs from start of care Yes at 0707
[2016-11-18] VITALS (8 sets, daily range): BP systolic 130–153; BP diastolic 65–89
--- NOTE | 2016-11-18 07:10 | ACUTE CARE PROGRESS NOTE (QUA) ---
Progress Notes Subjective Date 11/18/16 Time 0708 Note Patient has no complaints. He is producing copious amounts of whitish yellow sputum. He was able to ambulate at least twice in the hallway yesterday approximately 60 feet. He reports feeling stronger. His rhythm on telemetry monitoring remains paced. Patient is awake and alert. Lungs have diffuse rhonchi which is baseline. Heart has a regular rate and rhythm. I've encouraged him to ambulate more today. No other changes in medications. Anticipate discharge tomorrow if there are no set backs Objective Findings Last VS-Temp:97.8 B/P:144/89 Pulse:70 Resp:20 SaO2:96 OXYGEN Last weight lbs:181 oz:4 K.215 Method:Bed Scales Assessment/Plan Problem List 1. 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 Cardiac pacemaker in situ 4. COPD (chronic obstructive pulmonary disease) Patient condition Stable Plan: continue current care This inpt stay is expected to cross 2 MNs from start of care Yes at 0709
[2016-11-19 04:09] VITALS: BP 138/79
--- NOTE | 2016-11-19 07:08 | ACUTE CARE PROGRESS NOTE (QUA) ---
Progress Notes Subjective Date 11/19/16 Time 0706 Note Patient states he feels "about so so". He continues to have cough with white sputum production. He denies chest pain. He remains in a paced rhythm. Patient is in no distress. Lungs have diffuse rhonchi that clear somewhat with coughing. Heart has a regular rate and rhythm. Discharge patient home today. He will be placed back on his bisoprolol as this is what he has been on during hospitalization. DC Cardizem at discharge. Follow- up in my office in 2 days Objective Findings Last VS-Temp:98.3 B/P:138/79 Pulse:70 Resp:20 SaO2:95 ROOM AIR Last weight lbs:181 oz:4 K.215 Method:Bed Scales Assessment/Plan Problem List 1. 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 Cardiac pacemaker in situ 4. COPD (chronic obstructive pulmonary disease) Patient condition Improving Plan: initiate discharge plan This inpt stay is expected to cross 2 MNs from start of care Yes at 0707
--- NOTE | 2016-11-19 07:11 | Discharge Summary ---
Demographics Admit date: 11/15/16 Discharge date: 11/19/16 Discharge diagnoses Problem List 1. 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 Cardiac pacemaker in situ 4. COPD (chronic obstructive pulmonary disease) History of present illness History of present illness 76-year-old male with recent history of sick sinus syndrome and placement of a pacemaker within the recycling tech's office today and found to be in atrial fibrillation with rapid ventricular response along with signs of dehydration including hypotension. Patient was direct admitted to the medical surgical floor on the stepdown unit. Since admission he has been given a bolus of normal saline which is raised his blood pressure from 90 systolic to 120s. His heart rate remains in the 150s and is irregular but now that his blood pressure is elevated he has been placed on a Cardizem drip. Nursing staff reports pulse will vary between 150 and 80. Patient seems somewhat confused and somnolent on initial nursing evaluation, but nurse currently tells me he has become more lucid and is already looking better after receiving IV fluids. The patient himself has had a rough month. This is his third hospitalization this month. Patient has a tendency to do well while hospitalized but declines quickly once discharged. After his last discharge from the hospital he presented to my office within a few days with complaints of generalized weakness and "not doing well". He has had blood in his stool and his Eliquis was stopped. A complete blood count was performed which was significant for elevated white blood cell count which is likely secondary to chronic lymphocytic leukemia. Patient had brief episodes of a shocking-type chest pain. He was sent to the cardiology office for pacemaker interrogation. Patient tells me there was nothing wrong with his pacemaker. He followed up in the cardiology office today and was subsequently admitted. Patient's home life is somewhat rough. Even in his poor health he tries to take care of of his . He tells me that he did not have any air conditioning at home. Patient was admitted and placed on a Cardizem drip after receiving a 2 L fluid bolus. The fluid bolus improve the patient's blood pressure and by the evening the patient converted to a sinus rhythm. He was continued on his home digoxin. Initially on the day of admission he was given oral metoprolol to help with rate control. THis was switched back to bisoprolol, which the patient had been on previously, to minimize the effects of beta blockers on his chronic obstructive pulmonary disease. Patient's blood pressure could not tolerate both Cardizem and bisoprolol, so Cardizem was held. Patient was continued on digoxin. From that point patient remained in a paced rhythm the rest of his hospitalization. Patient has long-standing chronic obstructive pulmonary disease with chronic bronchitis and produced a milky whitish yellow sputum. Patient's sputum culture grew normal respiratory javier. He did not have any signs of infection while hospitalized. The day following admission patient went under PT evaluation to assess skeletal needs. He was deemed appropriate for home. Patient was monitored through the weekend and kept on IV fluids to ensure adequate hydration status periods fluids were weaned. He remained in paced rhythm. Patient was discharged home. Patient will follow-up in my office in 48 hours. Medications Medications: Discharge meds are as noted. Follow up Follow up in office in: 2 DAYS with: Fletcher Stevenson MD at 0711
[2016-11-19] MEDS ORDERED: BISOPROLOL FUMA10 MG PO (07:15)
[2016-11-19] MEDS ORDERED: APAP/HYDROCODON1 TA9 PO (07:16)
[2016-11-19 08:39] VITALS: BP 125/78
[2016-11-19 08:54] VITALS: BP 125/78
== END 2016-11-19 09:20 | disposition home or self-care (01) | DRG 310 ==
LOC: CARDIO 12:27 → 2ND 13:58 → CARDIO 13:58 → 2ND 14:08
PROVIDERS: Family Medicine
DX: I48.91 Unspecified atrial fibrillation (principal); I49.5 Sick sinus syndrome; Z99.81 Dependence on supplemental oxygen; I10 Essential (primary) hypertension; Z87.891 Personal history of nicotine dependence; Z95.0 Presence of cardiac pacemaker; J44.9 Chronic obstructive pulmonary disease, unspecified; J42 Unspecified chronic bronchitis

== ENCOUNTER 2016-12-05 17:58 | Inpatient (IN) | payer MEDICARE, MEDICAID ==
[~2016-12-05] VITALS: Ht 182.9 cm; Wt 82.3 kg
[~2016-12-05 17:58] MED LIST changes: +APAP/HYDROCODON1 TA9 PO; +BISOPROLOL FUMA10 MG PO; +CARDIZEM CD240 MG PO; +CARTIA XT120 MG PO; +PREDNISONE50 MG PO
[2016-12-05 18:01] VITALS: BP 123/64
[2016-12-05 18:23] LABS: HEMOGLOBIN 13.9 g/dL (14.1-18.0); LYMPH # 3.7 K/mm3 (0.7-4.5); LYMPH % 23.9 % (10-50)
--- NOTE | 2016-12-05 18:34 | Emergency Room Report ---
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 N Clinical Suspician of Infection? N Mental Status: 1 - Regular (Normal Baseline) Sepsis Risk:Possible Sepsis Risk Have you (or family members/close friends) recently traveled outside the [place]? N If Yes, where/when: Have you had exposure to infectious disease within the past month? N TB? Other? Specify: Source patient, RN notes reviewed, RN/MD, EMS notes reviewed Exam Limitations no limitations Comment This is a 76-year-old male patient presented emergency room with chest pain shows a breath onset earlier this morning. Patient received a pacemaker recently, placed by Dr. Eliseo Armstrong. He is known with coronary artery disease, also chronic obstructive pulmonary disease. Patient has any recent travel or recent exposure to sick contacts. ALLERGIES Coded Allergies: No Known Allergies (10/26/16) Home Medications Active Scripts Bisoprolol Fumarate 10 MG PO DAILY #30 TAB Ref 1 Prov: 11/19/16 HYDROCODONE/ACETAMINOPHEN (Hydrocodon-Acetaminoph 7.5-325) 1 TAB PO BID #60 TAB Prov: 11/19/16 Reported Medications Omeprazole (Omeprazole 20MG) 40 MG PO DAILY 30 Days Furosemide 40 MG PO BID #30 CETIRIZINE HCL (Cetirizine 10MG) 10 MG PO DAILYP PRN ALLERGIES UMECLIDINIUM BRM/VILANTEROL TR (Anoro Ellipta 62.5-25 Mcg INH) 1 POW IH DAILY Fluticasone Furoate (Arnuity Ellipta) 100 MCG IH DAILY NITROGLYCERIN (Nitrostat) 0.4 MG SL [id number] PRN CHEST PAIN Roflumilast (Daliresp) 500 MCG PO DAILY Aspirin (Aspirin EC) 81 MG PO DAILY 30 Days Potassium Chloride 10 MEQ PO DAILY 30 Days Cyclobenzaprine Hcl (Cyclobenzaprine 10MG) 10 MG PO DAILY TAMSULOSIN HCL (Tamsulosin 0.4MG) 0.4 MG PO QHS Digoxin (Digitek) 250 MCG PO DAILY History Medical History General CAD? Yes Angina: No [place]: Yes Hypertension? Yes Hyperlipidemia? Yes CHF? No DVT? No PE? No COPD? Yes Asthma? Yes Anemia? No GERD? No Gastric ulcers? No GI Bleed? No Hernia? No Thyroid Problems? No Hypothyroidism? No CVA? No Seizures? No Diabetes? No Renal Insuffiency? No End Stage Renal Disease? No UTI? No Stones? No BPH? No GB Disease: No Nephritic Syndrome? No Asplenia? No Hepatitis? No Sickle Cell Disease? No Arthritis? No Migraines? No Cataracts? Yes Glaucoma? No MRSA? No HIV? No TB? No Anxiety? No Depression? No Cancer? No More? Yes Additional hx: ATRIAL FIB Immunization Hx DT/Tetanus 1-4 Years Ago Flu Refused Pneumonia Received In Past Surgical Hx Previous Surgery?Y HERNIA REPAIR LT MUSCLE ARM & LEG RIGHT KNEE SURGERY CATARACTS ON R EYE HERNIA 2016 CARDIAC PACER 10/25/16 Family History Family Hx Diabetes No CAD No Hypertension Yes Hyperlipidemia No Cancer No TB No Social History Smoking Hx Smoker: Never Smoker Tobacco: No Packs/day < 1 Pack Alcohol Alcohol: No Review of Systems All Other Systems Reviewed and Negative Cardiovascular chest pain, palpitations Physical Exam Vital Signs Vital Signs Date Time Temp Pulse Resp B/P Pulse O2 O2 Flow FiO2 Ox Delivery Rate 12/05 1841 22 12/05 1801 98.0 161 22 123/64 97 15 General Appearance normal appearance, WD/WN, mild distress Respiratory Status Yes: trachea midline, chest symmetrical, non tender chest. No: respiratory distress. Lung Sounds bilateral: wheezing. 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 No Comment 1829-case discussed with Dr. Sutherland, advised the patient presentation, findings, ED course. Dr. Sutherland agreeable with hospitalization, agreeable with cardiology consult. Care transferred Dr. Sutherland at this time. I'll write temporary admission orders per hospital protocol. Upon patient's arrival to the floor the. Nurse will contact Dr. Sutherland in order to obtain full inpatient admission orders. Results/Orders Laboratory Tests 12/05/161919: VBG pH 7.35, VBG Total CO2 24.0, VBG O2 Sat (Calc) 96 H, VBG Base Excess -2.3, Mixed VBG pCO2 43.0, Mixed VBG pO2 93.0 H, Mixed VBG HCO3 23.0 12/05/161804: Sodium 142, Potassium 3.7, Chloride 108 H, Carbon Dioxide 26, BUN 9, Creatinine 1.4 H, Estimated Creat Clear 61, Estimated GFR (MDRD) 49, Glucose 115 H, Calcium 7.8 L, Total Bilirubin 0.3, AST 9 L, ALT 11 L, Alkaline Phosphatase 138 H, Creatine Kinase 19 L, CK-MB (CK-2) Rel Index 2.6, CK and CKMB Interp < 0.5, Troponin I 0.02, B-Natriuretic Peptide 43, Total Protein 5.7 L, Albumin 2.5 L, Globulin 3.2, Albumin/Globulin Ratio 0.8 L, PT 10.6, INR 0.98, APTT 23.6, D-Dimer 620 *H, WBC 15.5 H, RBC 5.17, Hgb 13.9 L, Hct 42.6, MCV 82.3, RDW 16.4, Plt Count 191, MPV 8.6, Gran % 67.0, Gran # 10.4 H, Total Counted 100 , Lymphocytes % 23.9, Monocytes % 5.2, Eosinophils % 3.0, Basophils % 0.9, Neutrophils 59, Lymphocytes (Manual) 35, Lymphocytes # 3.7, Monocytes (Manual) 4 , Monocytes # 0.8, Eosinophils # 0.5 H, Eosinophils # (Manual) 1, Basophils # 0.1, Basophils # (Manual) 1, Platelet Estimate NORMAL, PUBS MCHC 32.7, MCH 26.9 L Current Medication Orders Sig/Martin Start time Last Medication Dose Route Stop Time Status Admin Sodium Chloride 100 ML .STK-MED ONE 12/06 1835 DC IV Diltiazem HCl 0 .STK-MED ONE 12/05 1834 DC IV Aspirin 0 .STK-MED ONE 12/05 1833 DC .ROUTE Diltiazem HCl 0 .STK-MED ONE 12/05 1833 DC IV Nitroglycerin 0 .STK-MED ONE 12/05 1834 DC SL Albuterol/Ipratropium 0 .STK-MED ONE 12/05 1820 DC INH Albuterol/Ipratropium 3 ML ONCE ONE 12/05 1815 DC INH 12/05 1816 Aspirin 325 MG ONCE ONE 12/05 1815 DC 12/05 PO 12/05 1816 1841 Diltiazem HCl 20 MG ONCE ONE 12/05 1815 DC 12/05 IV 12/05 1816 1840 Diltiazem HCl 100 MG ONCE ONE 12/05 1815 AC 12/05 Sodium Chloride 100 ML IV 12/06 1414 1841 Nitroglycerin 0.4 MG [id number] PRN 12/05 1815 AC 12/05 SL 1841 Sodium Chloride 10 ML PRN PRN 12/05 1815 AC 12/05 IV 12/06 1804 1842 Orders Procedure Date/time Status RT REQUEST DUONEB 12/05 1808 Active ARTERIAL BLOOD GAS REQUEST 12/05 1808 Active DIFFERENTIAL-WBC 12/05 1805 Complete ELECTROCARDIOGRAM REQUEST 12/05 1804 Active CHEST-PORTABLE 12/05 1804 Active IV SALINE LOCK 12/05 1804 Active ONSHORE DIVER 12/05 1804 Active PARTIAL THROMBOPLASTIN TIME 12/05 1804 Complete PROTHROMBIN TIME 12/05 1804 Complete D-DIMER 12/05 1804 Complete COMPLETE METABOLIC PANEL 12/05 1804 Complete CBC WITH AUTO DIFF 12/05 1804 Complete CARDIAC ENZYMES 12/05 1804 Complete BRAIN NATRIURETIC PEPTIDE 12/05 1804 Complete CM/EKG 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 of ischemic chgs, no ectopy, normal QRS, normal CA, no EKG for comparison, non-spec. ST/Twave chgs, ST elevation, ST depression, LBBB, RBBB, ectopy, abnormal Q waves XRAY/CT/US XRAY/CT/US XRAY chest XR interpretation by reviewed by me Xray Results abnormal Comment Pacemaker, chronic changes consistent with chronic obstructive pulmonary disease , cardiomegaly Departure Departure Time of Disposition 1832 Disposition Still a Patient Clinical Impression Primary Impression: Rapid atrial fibrillation Secondary Impressions: Acute bronchitis Qualifiers: Bronchitis organism: unspecified organism Qualified Code: J20.9 - Acute bronchitis, unspecified Chest pain Qualifiers: Chest pain type: unspecified Qualified Code: R07.9 - Chest pain, unspecified COPD exacerbation Condition STABLE ED Critical Care Critical Care Yes Time spent 30-74 min Vital system(s) involved: Circulatory Failure I was present at bedside for Coordinating pt's care, Interpreting EKGs/Strips , During my initial exam, Reviewing lab results, Reviewing old records, Discussing pt condition, For re-examinations, Examining radiographs If Critical Care minutes are documented, the time involved in the performance of seperately reportable procedures was not counted toward critical care time documented. I directly delivered medical care to this critically ill and/or injured patient. Timely evaluation and treatment was necessary to address the significant organ system(s) dysfunction present in this patient. at 1957
--- NOTE | 2016-12-05 18:34 | Emergency Room Report ---
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 N Clinical Suspician of Infection? N Mental Status: 1 - Regular (Normal Baseline) Sepsis Risk:Possible Sepsis Risk Have you (or family members/close friends) recently traveled outside the [place]? N If Yes, where/when: Have you had exposure to infectious disease within the past month? N TB? Other? Specify: Source patient, RN notes reviewed, RN/MD, EMS notes reviewed Exam Limitations no limitations Comment This is a 76-year-old male patient presented emergency room with chest pain shows a breath onset earlier this morning. Patient received a pacemaker recently, placed by Dr. Eliseo Armstrong. He is known with coronary artery disease, also chronic obstructive pulmonary disease. Patient has any recent travel or recent exposure to sick contacts. ALLERGIES Coded Allergies: No Known Allergies (10/26/16) Home Medications Active Scripts Bisoprolol Fumarate 10 MG PO DAILY #30 TAB Ref 1 Prov: 11/19/16 HYDROCODONE/ACETAMINOPHEN (Hydrocodon-Acetaminoph 7.5-325) 1 TAB PO BID #60 TAB Prov: 11/19/16 Reported Medications Omeprazole (Omeprazole 20MG) 40 MG PO DAILY 30 Days Furosemide 40 MG PO BID #30 CETIRIZINE HCL (Cetirizine 10MG) 10 MG PO DAILYP PRN ALLERGIES UMECLIDINIUM BRM/VILANTEROL TR (Anoro Ellipta 62.5-25 Mcg INH) 1 POW IH DAILY Fluticasone Furoate (Arnuity Ellipta) 100 MCG IH DAILY NITROGLYCERIN (Nitrostat) 0.4 MG SL [id number] PRN CHEST PAIN Roflumilast (Daliresp) 500 MCG PO DAILY Aspirin (Aspirin EC) 81 MG PO DAILY 30 Days Potassium Chloride 10 MEQ PO DAILY 30 Days Cyclobenzaprine Hcl (Cyclobenzaprine 10MG) 10 MG PO DAILY TAMSULOSIN HCL (Tamsulosin 0.4MG) 0.4 MG PO QHS Digoxin (Digitek) 250 MCG PO DAILY History Medical History General CAD? Yes Angina: No CO: Yes Hypertension? Yes Hyperlipidemia? Yes CHF? No DVT? No PE? No COPD? Yes Asthma? Yes Anemia? No GERD? No Gastric ulcers? No GI Bleed? No Hernia? No Thyroid Problems? No Hypothyroidism? No CVA? No Seizures? No Diabetes? No Renal Insuffiency? No End Stage Renal Disease? No UTI? No Stones? No BPH? No GB Disease: No Nephritic Syndrome? No Asplenia? No Hepatitis? No Sickle Cell Disease? No Arthritis? No Migraines? No Cataracts? Yes Glaucoma? No MRSA? No HIV? No TB? No Anxiety? No Depression? No Cancer? No More? Yes Additional hx: ATRIAL FIB Immunization Hx DT/Tetanus 1-4 Years Ago Flu Refused Pneumonia Received In Past Surgical Hx Previous Surgery?Y HERNIA REPAIR LT MUSCLE ARM & LEG RIGHT KNEE SURGERY CATARACTS ON R EYE HERNIA 2016 CARDIAC PACER 10/25/16 Family History Family Hx Diabetes No CAD No Hypertension Yes Hyperlipidemia No Cancer No TB No Social History Smoking Hx Smoker: Never Smoker Tobacco: No Packs/day < 1 Pack Alcohol Alcohol: No Review of Systems All Other Systems Reviewed and Negative Cardiovascular chest pain, palpitations Physical Exam Vital Signs Vital Signs Date Time Temp Pulse Resp B/P Pulse O2 O2 Flow FiO2 Ox Delivery Rate 12/05 1841 22 12/05 1801 98.0 161 22 123/64 97 15 General Appearance normal appearance, WD/WN, mild distress Respiratory Status Yes: trachea midline, chest symmetrical, non tender chest. No: respiratory distress. Lung Sounds bilateral: wheezing. 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 No Comment 1829-case discussed with Dr. Sutherland, advised the patient presentation, findings, ED course. Dr. Sutherland agreeable with hospitalization, agreeable with cardiology consult. Care transferred Dr. Sutherland at this time. I'll write temporary admission orders per hospital protocol. Upon patient's arrival to the floor the. Nurse will contact Dr. Sutherland in order to obtain full inpatient admission orders. Results/Orders Laboratory Tests 12/05/161919: VBG pH 7.35, VBG Total CO2 24.0, VBG O2 Sat (Calc) 96 H, VBG Base Excess -2.3, Mixed VBG pCO2 43.0, Mixed VBG pO2 93.0 H, Mixed VBG HCO3 23.0 12/05/161804: Sodium 142, Potassium 3.7, Chloride 108 H, Carbon Dioxide 26, BUN 9, Creatinine 1.4 H, Estimated Creat Clear 61, Estimated GFR (MDRD) 49, Glucose 115 H, Calcium 7.8 L, Total Bilirubin 0.3, AST 9 L, ALT 11 L, Alkaline Phosphatase 138 H, Creatine Kinase 19 L, CK-MB (CK-2) Rel Index 2.6, CK and CKMB Interp < 0.5, Troponin I 0.02, B-Natriuretic Peptide 43, Total Protein 5.7 L, Albumin 2.5 L, Globulin 3.2, Albumin/Globulin Ratio 0.8 L, PT 10.6, INR 0.98, APTT 23.6, D-Dimer 620 *H, WBC 15.5 H, RBC 5.17, Hgb 13.9 L, Hct 42.6, MCV 82.3, RDW 16.4, Plt Count 191, MPV 8.6, Gran % 67.0, Gran # 10.4 H, Total Counted 100 , Lymphocytes % 23.9, Monocytes % 5.2, Eosinophils % 3.0, Basophils % 0.9, Neutrophils 59, Lymphocytes (Manual) 35, Lymphocytes # 3.7, Monocytes (Manual) 4 , Monocytes # 0.8, Eosinophils # 0.5 H, Eosinophils # (Manual) 1, Basophils # 0.1, Basophils # (Manual) 1, Platelet Estimate NORMAL, PUBS MCHC 32.7, MCH 26.9 L Current Medication Orders Sig/Martin Start time Last Medication Dose Route Stop Time Status Admin Sodium Chloride 100 ML .STK-MED ONE 12/06 1835 DC IV Diltiazem HCl 0 .STK-MED ONE 12/05 1834 DC IV Aspirin 0 .STK-MED ONE 12/05 1833 DC .ROUTE Diltiazem HCl 0 .STK-MED ONE 12/05 1833 DC IV Nitroglycerin 0 .STK-MED ONE 12/05 1834 DC SL Albuterol/Ipratropium 0 .STK-MED ONE 12/05 1820 DC INH Albuterol/Ipratropium 3 ML ONCE ONE 12/05 1815 DC INH 12/05 1816 Aspirin 325 MG ONCE ONE 12/05 1815 DC 12/05 PO 12/05 1816 1841 Diltiazem HCl 20 MG ONCE ONE 12/05 1815 DC 12/05 IV 12/05 1816 1840 Diltiazem HCl 100 MG ONCE ONE 12/05 1815 AC 12/05 Sodium Chloride 100 ML IV 12/06 1414 1841 Nitroglycerin 0.4 MG [id number] PRN 12/05 1815 AC 12/05 SL 1841 Sodium Chloride 10 ML PRN PRN 12/05 1815 AC 12/05 IV 12/06 1804 1842 Orders Procedure Date/time Status RT REQUEST DUONEB 12/05 1808 Active ARTERIAL BLOOD GAS REQUEST 12/05 1808 Active DIFFERENTIAL-WBC 12/05 1805 Complete ELECTROCARDIOGRAM REQUEST 12/05 1804 Active CHEST-PORTABLE 12/05 1804 Active IV SALINE LOCK 12/05 1804 Active WAITER/WAITRESS CABIN CLASS 12/05 1804 Active PARTIAL THROMBOPLASTIN TIME 12/05 1804 Complete PROTHROMBIN TIME 12/05 1804 Complete D-DIMER 12/05 1804 Complete COMPLETE METABOLIC PANEL 12/05 1804 Complete CBC WITH AUTO DIFF 12/05 1804 Complete CARDIAC ENZYMES 12/05 1804 Complete BRAIN NATRIURETIC PEPTIDE 12/05 1804 Complete CM/EKG CM/publicity agent Rhythm Atrial Fibrillation Rate 157 Ectopy No Comments No acute ischemic changes EKG rate, NSR, rhythm, no evid. of ischemic chgs, no ectopy, normal QRS, normal MI, no EKG for comparison, non-spec. ST/Twave chgs, ST elevation, ST depression, LBBB, RBBB, ectopy, abnormal Q waves XRAY/CT/US XRAY/CT/US XRAY chest XR interpretation by reviewed by me Xray Results abnormal Comment Pacemaker, chronic changes consistent with chronic obstructive pulmonary disease , cardiomegaly Departure Departure Time of Disposition 1832 Disposition Still a Patient Clinical Impression Primary Impression: Rapid atrial fibrillation Secondary Impressions: Acute bronchitis Qualifiers: Bronchitis organism: unspecified organism Qualified Code: J20.9 - Acute bronchitis, unspecified Chest pain Qualifiers: Chest pain type: unspecified Qualified Code: R07.9 - Chest pain, unspecified COPD exacerbation Condition STABLE ED Critical Care Critical Care Yes Time spent 30-74 min Vital system(s) involved: Circulatory Failure I was present at bedside for Coordinating pt's care, Interpreting EKGs/Strips , During my initial exam, Reviewing lab results, Reviewing old records, Discussing pt condition, For re-examinations, Examining radiographs If Critical Care minutes are documented, the time involved in the performance of seperately reportable procedures was not counted toward critical care time documented. I directly delivered medical care to this critically ill and/or injured patient. Timely evaluation and treatment was necessary to address the significant organ system(s) dysfunction present in this patient. at 1956
[2016-12-05 18:45] LABS: BUN 9 mg/dL (7-18)
[2016-12-05 18:49] LABS: GFR (ESTIMATED) 49 ML/MIN (>60)
--- OUTSIDE RECORDS SUMMARY | 2016-12-05 18:51 | External Medical Summary Rpt ---
Author Author , RANDALL Dial RANDALL Address Unknown Phone [email or web address] Team Providers Care Credit Operations Processor Name Role Phone A Kristy QUEZADA MD [...] JAMILAH WALLACE JAMILAH, Unavailable Unavailable WALLACE JAMILAH FONTANEZ, FONTANEZ Unavailable Unavailable FONTANEZ ALL, FONTANEZ ALL Unavailable Unavailable ROBBINS JESS, ROBBINS Unavailable Unavailable JESS [facility] Unavailable Unavailable SERVICE, [facility] Unavailable Unavailable SERVICE[facility] Unavailable Unavailable [facility], [facility] Unavailable Unavailable [facility], [facility] Unavailable Unavailable LAB, [facility] COOK JOSH, COOK JOSH Unavailable Unavailable BRENDEN REINA, BRENDEN REINA Unavailable Unavailable FRANCESCA, FRANCESCA Unavailable Unavailable FRANCESCA EMY, Unavailable Unavailable FRANCESCA [...] KEYANA, TAYLOR Unavailable Unavailable KEYANA [facility] Unavailable Unavailable INC, [facility] Unavailable Unavailable HOSPITAL P, [facility] P RUIZ, DONTE A, Unavailable Unavailable RUIZ, DONTE A [facility], Unavailable Unavailable [facility] ARMENDARIZ JENNA, ARMENDARIZ JENNA Unavailable Unavailable HUI MIKHAIL, HUI MIKHAIL Unavailable Unavailable BECKY NIXON, BECKY Unavailable Unavailable [facility], [facility] KUMAR MARIAN, Unavailable Unavailable KUMAR MARIAN NINI, CALLIE W, Unavailable Unavailable NINI, CALLIE W [facility] Un[facility] Un[facility] GLENN JR, GLENN JR Unavailable Unavailable GLENN JR DWI, GLENN Unavailable Unavailable JR DWI [facility] Unavailable Unavailable INTERNAL MED, [facility] JAMES CON, JAMES [...] [facility] #[id number] [facility] Unavailable Unavailable [id number] # [id number], [facility] [id number] # [id number] SHANELL, SHANELL Unavailable Unavailable SHANELL CAR, Unavailable Unavailable SHANELL CAR SHASHY KEY, SHASHY Unavailable Unavailable KEY JURADO, RHIANNON Unavailable Unavailable SONG MIREYA, SONG MIREYA Unavailable Unavailable [facility], [facility] Unavailable Unavailable E[facility] Un[facility] Un[facility] Unavailable Unavailable [facility], [facility] JAMES DON, Unavailable Unavailable JAMES DON JAMES DON, Unavailable Unavailable JAMES DON JAMES, DON R, Unavailable Unavailable JAMES, DON R RAYMOND RONNY, RAYMOND Unavailable Unavailable RONNY JANENE PALMA, JANENE Unavailable Unavailable PALMA OTTO SUSAN, OTTO Unavailable Unavailable SUSAN [facility], Unavailable Unavailable [facility] Unavailable 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 10-09-2016 [facility] E785 HYPERLIPIDE 10-04-2016 [facility] UNSPECIFIED GROUP I119 HYPERTENSIV 10-04-2016 [facility] E HEART PHYSICIANS DISEASE GROUP WITHOUT HEART FAILURE 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 10-04-2016 [facility] ANTERIOR PHYSICIANS FASCICULAR GROUP BLOCK J449 CHRONIC 10-04-2016 [facility] OBSTRUCTIVE PHYSICIANS PULMONARY GROUP DISEASE UNS R0600 DYSPNEA 10-04-2016 [facility] UNSPECIFIED PHYSICIANS GROUP R0602 SHORTNESS 09-14-2016 [facility] R918 OTHER 09-14-2016 [facility] NONSPECIFIC MEDICAL ABNORMAL IMAGING ASS FINDING OF LUNG FIELD R938 ABNORMAL 09-14-2016 [facility] FIND ON DX [facility] IMAGING OTH INC SPEC BODY STRCT R9431 ABNORMAL 09-14-2016 [facility] ELECTROCARD [facility] IOGRAM INC J410 SIMPLE 09-04-2016 A Kristy GARLAND MD PSC BRONCHITIS I4891 UNSPECIFIED 09-02-2016 [facility] FIBRILLATIO MEDICAL N EQUIPME I200 UNSTABLE 08-27-2016 [facility] ANGINA PHYSICIANS GROUP I10 ESSENTIAL 08-25-2016 [facility] P N P50232 ASHD KIANA 08-25-2016 [facility] P ANGINA PECTORIS I272 OTHER 08-25-2016 [facility] P HYPERTENSIO N R079 CHEST PAIN 08-25-2016 [facility]ING ASS I482 CHRONIC 06-14-2016 Darnell CARR MD [facility] FIBRILLATIO N J9610 CHRONIC 06-14-2016 Darnell QUEZADA RESPIRATORY [facility] FAIL UNS HYPOXIA/HYP ERCAPNIA R296 REPEATED 06-14-2016 Darnell KHAN MD PSC J441 CHRONIC 05-25-2016 Darnell ANN MD [facility] PULMONARY DZ W/EXACERBAT ION B957 OTH 05-14-2016 [facility] STAPHYLOCOC [facility] CUSS CAUSE INC OF DZ CLASSIFIED ELSW J209 ACUTE 05-14-2016 [facility] BRONCHITIS [facility] UNSPECIFIED INC J440 COPD WITH 05-14-2016 [facility] ACUTE LOWER [facility] INC RESPIRATORY INFECTION 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 QUEZADA ATRIAL [facility] FIBRILLATIO N I5020 UNSPECIFIED 05-10-2016 A Kristy QUEZADA SYSTOLIC [facility] CONGESTIVE HEART FAILURE C9110 CHRONIC 01-11-2016 [facility] 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 R634 ABNORMAL 01-11-2016 [facility] WEIGHT LOSS [facility] INC R1110 VOMITING 01-09-2016 [facility] UNSPECIFIED PHYSICIANS GROUP K828 OTHER 01-02-2016 [facility] SPECIFIED MEDICAL DISEASES OF IMAGING ASS GALLBLADDER R630 ANOREXIA 01-02-2016 [facility] K921 MELENA 11-07-2015 [facility] K5710 DIVERTICULO 11-03-2015 [facility] SIS SM MEDICAL INTEST W/O IMAGING ASS PERF/ABSC W/O BLEED R195 OTHER FECAL 11-03-2015 [facility] ABNORMALITI IMAGING ASS ES M06953 LYMPHOCYTOS 10-26-2015 [facility] IS PATHOLOGY SYMPTOMATIC LAB NETW J690 PNEUMONITIS 10-26-2015 [facility] DUE TO SERV INHALATION [facility] OF FOOD AND VOMIT Z09 ENC F/U 10-20-2015 A Kristy QUEZADA EXAM AFTR PSC CMPL TX OTH THAN MALIG NEOPLSM B370 CANDIDAL 10-19-2015 [facility] STOMATITIS SERV [facility] R112 NAUSEA WITH 10-19-2015 [facility] VOMITING SERV UNSPECIFIED FOUNDATION I509 HEART 10-15-2015 [facility] FAILURE HOME UNSPECIFIED MEDICAL EQUIPME R531 WEAKNESS 09-20-2015 [facility] 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 [facility] R BLOCK SERV FOUNDATION I4510 UNSPECIFIED 09-15-2015 [facility] RIGHT SERV BUNDLE-BRAN FOUNDATION CH BLOCK R001 BRADYCARDIA 09-15-2015 [facility] UNSPECIFIED FOUNDATION B965 PSEUDOMONAS 09-14-2015 [facility] CAUSE OF SERV DZ [facility] CLASSIFIED ELSEWHERE J9600 ACUTE 09-14-2015 [facility] RESPIRATORY SERV FAIL UNS FOUNDATION HYPOXIA/HYP ERCAPNIA J9811 ATELECTASIS 09-14-2015 [facility] L76864 ENCOUNTER 09-14-2015 [facility] SURG SERV AFTERCARE [facility] FLW SURG DIGESTIVE SYS Z049 ENCOUNTER 09-13-2015 [facility] EXAMINATION SERV &OBSERVATIO FOUNDATION N FOR UNS REASON K5900 CONSTIPATIO 09-12-2015 [facility] N SERV UNSPECIFIED FOUNDATION R140 ABDOMINAL 09-10-2015 [facility] DISTENSION SERV GASEOUS FOUNDATION R0989 OTH SPEC SX 09-09-2015 [facility] & SIGNS SERV INVLV THE FOUNDATION CIRC & RESP SYS A419 SEPSIS 09-08-2015 [facility] UNSPECIFIED SERV ORGANISM FOUNDATION E873 ALKALOSIS 09-08-2015 [facility] E876 HYPOKALEMIA 09-08-2015 [facility] J90 PLEURAL 09-08-2015 [facility] EFFUSION SERV NOT FOUNDATION ELSEWHERE CLASSIFIED J9620 ACUTE 09-08-2015 [facility] CHRONIC SERV RESP FAIL FOUNDATION UNS HYPOXIA/HYP ERCAPNIA J984 OTHER 09-08-2015 [facility] DISORDERS SERV OF LUNG FOUNDATION R109 UNSPECIFIED 09-08-2015 [facility] ABDOMINAL SERV PAIN FOUNDATION Z4682 ENCOUNTER 09-08-2015 [facility] ADJUST HOSPI NON-VASCULA R CATHETER 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-07-2015 [facility] DISORDER SERV UNSPECIFIED FOUNDATION I517 CARDIOMEGAL 09-07-2015 [facility] Y SERV [facility] I5189 OTHER 09-07-2015 [facility] ILL-DEFINED SERV HEART FOUNDATION DISEASES R0902 HYPOXEMIA 09-06-2015 [facility] R0689 OTHER 09-02-2015 [facility] ABNORMALITI SERV ES OF FOUNDATION BREATHING J942 HEMOTHORAX 08-30-2015 [facility] J948 OTHER 08-30-2015 [facility] SPECIFIED SERV PLEURAL FOUNDATION CONDITIONS L538 OTHER 08-30-2015 [facility] SPECIFIED SERV ERYTHEMATOU FOUNDATION S CONDITIONS Z9889 OTHER 08-30-2015 [facility] SPECIFIED SERV POSTPROCEDU FOUNDATION RAL STATES 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 K4030 UNILAT 08-25-2015 [place] INGUINAL [facility] NGUYEN W/OBST HOSPI W/O GANGRN NOT RECUR K4040 UNILAT 08-25-2015 [facility] INGUINAL SERV NGUYEN FOUNDATION W/GANGREN NOT SPEC RECUR Z7901 SUPERVISOR SHAVING AND SPLITTING 08-25-2015 [facility] CURRENT USE SERV OF FOUNDATION ANTICOAGULA NTS Y74613 ELEVATED 08-24-2015 [facility] BLOOD [facility] P UNSPECIFIED K4090 UNILAT 08-24-2015 [facility] INGUINAL SERV NGUYEN W/O FOUNDATION OBST/GANGRE N NOT RECUR K5660 UNSPECIFIED 08-24-2015 [facility] SERVICE OBSTRUCTION R1031 RIGHT LOWER 08-24-2015 [facility] PAIN HOSPI V75696 PERSONAL 08-24-2015 [facility] 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 J189 PNEUMONIA 08-03-2015 [facility] UNSPECIFIED MEDICAL ORGANISM IMAGING ASS J439 EMPHYSEMA 08-03-2015 [place] UNSPECIFIED [place] INTERNAL MED J929 PLEURAL 08-03-2015 [facility] WITHOUT IMAGING ASS ASBESTOS R002 PALPITATION 08-03-2015 [facility] S SERV [facility] R031 NONSPECIFIC 08-03-2015 [facility] LOW SERV BLOOD-PRESS [facility] URE READING R42 DIZZINESS 08-03-2015 [facility] AND SERV GIDDINESS FOUNDATION 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 08-03-2015 [place] ON [place] SUPPLEMENTA INTERNAL L OXYGEN MED J42 UNSPECIFIED 07-13-2015 [facility] CHRONIC MEDICAL BRONCHITIS IMAGING ASS Z7722 CONTACT W/ 07-13-2015 [facility] & SUSPECTED SERV EXPOS FOUNDATION ENVIR TOBACCO SMOKE J40 BRONCHITIS 03-25-2015 [facility] NOT MEDICAL SPECIFIED IMAGING ASS ACUTE OR CHRONIC R091 PLEURISY 01-21-2015 [facility] 4280 CONGESTIVE 01-14-2015 [facility] HEART HOME FAILURE MEDICAL UNSPECIFIED EQUIPME 21822 OBSTRUCTIVE 01-14-2015 [facility] WITHOUT EXACERBAT 496 CHRONIC 01-14-[address] [facility] HOME OBSTRUCTION MEDICAL NEC EQUIPME 11150 NUCLEAR 12-28-2014 [facility] SCLEROSIS JAMILAH 48614 OBST 09-06-2014 A Kristy QUEZADA CHRONIC PSC BRONCHITIS W/ACUTE BRONCHITIS 98574 LOSS OF 09-06-2014 A Kristy QUEZADA WEIGHT PSC 95385 OTHER CHEST 09-06-2014 A Kristy QUEZADA PAIN PSC 17412 OBSTRUCTIVE 09-05-2014 [facility] SLEEP HOME APNEA MEDICAL EQUIPME 7242 LUMBAGO 04-01-2014 A Kristy QUEZADA MD PSC V0382 NEED PROPH 04-01-2014 A Kristy QUEZADA VACCINATION PSC AGAINST STREP PNEUMONE 02502 ATRIAL 01-13-2014 [facility] FIBRILLATIO [facility] N INC 82041 REFLUX 01-13-2014 [facility] ESOPHAGITIS [facility] INC 37765 UNS 01-13-2014 [facility] GASTRITIS&G [facility] ASTRODUODIT INC IS W/O MENTION HEMORR 86189 ABDOMINAL 01-13-2014 [facility] PAIN, [facility] GENERALIZED INC V5869 LONG-TERM 01-13-2014 [facility] (CURRENT) [facility] USE OF INC OTHER MEDICATIONS 77865 CHEST PAIN 11-24-2013 [facility] UNSPECIFIED [facility] INC 5110 PLEURISY 10-29-2013 [facility] WITHOUT MEDICAL MENTION IMAGING ASS EFFUS/CURRE NT TB 7862 COUGH 10-29-2013 [facility] 62992 INSOMNIA 12-16-2012 A Kristy QUEZADA UNSPECIFIED PSC 62632 OTHER 12-16-2012 A Kristy QUEZADA MALAISE AND PSC FATIGUE 02864 FEVER 05-23-2012 J[facility] UNSPECIFIED DON 81174 WHEEZING 05-23-2012 J[facility] DON 1120 CANDIDIASIS 05-21-2012 J[facility] OF MOUTH DON 52718 OTHER 05-21-2012 FRANCESCA DISEASES OF EMY LUNG NOT ELSEWHERE CLASSIFIED 4940 BRONCHIECTA 01-28-2012 [facility] SIS WITHOUT MEDICAL ACUTE IMAGING ASS EXACERBATIO N 5119 UNSPECIFIED 01-28-2012 [facility] PLEURAL MEDICAL EFFUSION IMAGING ASS 20162 OTHER 01-28-2012 [facility] NONSPECIFIC [facility] ABNORMAL INC FINDING OF LUNG FIELD 10495 OSTEOARTHRO 01-02-2012 JAMES S INVLV MX DON SITES BUT [place] SPEC [place] [address] OBSTRUCTIVE 11-12-2011 [facility] CHRONIC [facility] BRONCHITIS INC WITH EXACERBATIO N 01626 ESOPHAGEAL 11-12-2011 [facility] REFLUX [facility] INC 2859 UNSPECIFIED 10-05-2011 [facility] ANEMIA [facility] INC 5180 PULMONARY 10-05-2011 [facility] 486 PNEUMONIA, 09-28-2011 [facility] ORGANISM MEDICAL UNSPECIFIED IMAGING ASS 5070 PNEUMONITIS 09-28-2011 [place] DUE TO JAM INHALATION OF FOOD OR VOMITUS 95428 SHORTNESS 09-28-2011 [facility] OF BREATH [facility] INC 83709 ABDOMINAL 09-28-2011 [facility] PAIN, [facility] EPIGASTRIC INC V1261 PERSONAL 09-28-2011 [place] HISTORY JAM PNEUMONIA RECURRENT 80797 PNEUMONIA 06-08-2011 JAMES DUE TO DON OTHER SPECIFIED BACTERIA 2724 OTHER AND 05-11-2011 [facility] UNSPECIFIED PHYSICIANS LA HYPERLIPIDE [place] 2768 HYPOPOTASSE 05-11-2011 [facility] [place] PHYSICIANS [place] 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[facility], 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 81406 OSTEOARTHRO 08-23-2009 ERIKA, SIS UNSPEC DON R WHETHER GEN/LOC LOWER LEG 13666 OSTEOARTHRO 08-23-2009 [facility], S UNSPEC DON R GEN/LOC OTH SPEC SITES 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 A N OF RETINA UNSPECIFIED 33322 NONEXUDATIV 07-20-2008 [facility] & 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 56218 EXUDATIVE 07-20-2008 [facility] & SENILE [facility] DEGENERAMANDIO O N OF RETINA 34149 CRYSTALLINE 07-20-2008 [facility] & DEPOSITS VITREOUS IN VITREOUS ASSOCIATES O 4610 ACUTE 02-27-2008 JAMES, MAXILLARY DON R SINUSITIS 4659 ACUTE URIS 02-27-2008 [facility], OF DON R UNSPECIFIED SITE 8472 LUMBAR 11-14-2007 JAMES, SPRAIN AND DON R STRAIN 4660 ACUTE 08-02-2007 JAMES, BRONCHITIS DON R 4871 INFLUENZA 07-04-2007 E[facility], WITH OTHER DON R RESPIRATORY MANIFESTATI ONS 76517 PAIN IN 04-25-2007 JAMES, JOINT, DON R SHOULDER REGION 53896 UNSPECIFIED 04-25-2007 JAMES, SYNOVITIS DON R AND TENOSYNOVIT IS Medications Na ND Rx Da Fi Fi Am Da Di Ph RX Ph St me C No te ll ll ou ys ag ar # ys at rm s nt no ma ic us Or Da si cy ia de te s n re d RA 11 07 08 30 30 00 RI Ac 82 -1 -0 .0 00 TE ti 23 0- 4- 00 01 ve PI 16 20 20 17 AI RI 91 17 17 87 D N 0 71 PH EC AR MA 81 CY MG #3 93 TA 8 BL ET CE 16 06 07 30 30 00 [...] ET 03 93 8 # 03 93 VA 00 04 04 00 12 6 RI [...] Range on Differential panel, method unspecified - (11-15-2016 14:30) LYMPH 7 % 10% - Low complet 017 50% ed 14:30 Platele NORMAL complet ts 017 ed [Presen 14:30 ce] in Blood by Light microsc opy Erythro NORMAL complet cyte 017 ed morphol 14:30 ogy finding [Identi fier] in Blood Differential panel, method unspecified - (11-09-2016 10:03) Anisocy 11-09-2 1+ complet tosis 017 ed [Presen 10:03 ce] in Blood LYMPH 13 % 10% - Normal complet 017 50% ed 10:03 Platele NORMAL complet ts 017 ed [Presen 10:03 ce] in Blood by Light microsc opy Differential panel, method unspecified - (11-05-2016 06:30) Hypochr 1+ complet omia 017 ed [Presen 06:30 ce] in Blood LYMPH 31 % 10% - Normal complet 017 50% ed 06:30 Platele NORMAL complet ts 017 ed [Presen 06:30 ce] in Blood by Light microsc opy Differential panel, method unspecified - (11-02-2016 06:15) Anisocy 11-02-2 1+ complet tosis 017 ed [Presen 06:15 ce] in Blood Hypochr 1+ complet omia 017 ed [Presen 06:15 [...] Microscopic panel in Urine (10-24-2016 17:10) Bacteri TRACE O complet a 017 ed [Presen [...] Procedures Procedure DOS Code Location Performer Comment ALBUTEROL J7620 YOUR YOUR TO 2.5 7 PHARMACY PHARMACY MG & [employer] [facility] IPRATROPI UM BROM TO 0.5 MG ADMN SET A7003 YOUR YOUR SM VOL 7 PHARMACY PHARMACY [facility] PNEUMAT NEBULIZR DISPBL ECG 34674 [facility] ROUTINE 7 PHYSICIAN ECG S GROUP W/LEAST 12 LDS [place] [address] LUC[facility] AYALA UREA 7 [facility] H[facility] NITROGEN INC INC QUANTITAT ARCENIO [facility] THORAX 48095 [facility] 7 MEDICAL W/CONTRAS IMAGING T ASS MATERIAL CREATININ 59699 LUC[facility] AYALA E BLOOD 7 [facility] H[facility] INC INC ALBUTEROL J7620 YOUR YOUR TO 2.5 7 PHARMACY PHARMACY [facility] [employer] IPRATROPI UM BROM TO 0.5 MG ADMN SET A7003 YOUR YOUR SM VOL 7 PHARMACY PHARMACY [facility] PNEUMAT NEBULIZR DISPBL ALBUTEROL J7620 A C A C TO 2.5 7 PILAR QUEZADA MD MG & PSC PSC IPRATROPI UM BROM TO 0.5 MG ECG 71728 [facility] ROUTINE 7 PHYSICIAN ECG S GROUP W/LEAST 12 LDS I&R ONLY O2 CONC 1 E1390 [facility] LUIS [facility] 7 HOME HOME 85%/>02 [facility]ICAL [facility] R & L HRT 99608 [facility] CATH 7 PHYSICIAN WINJX HRT S GROUP ART& L VENTR IMG RADIOLOGI 55206 [facility] 7 MEDICAL EXAMINATI IMAGING ON CHEST ASS SINGLE VIEW FRONTAL ECG 52345 LUC[facility] ELIZABETH JR ROUTINE 7 [facility]PITAL W/LEAST P 12 LDS I&R ONLY ALBUTEROL J7620 YOUR YOUR TO 2.5 7 PHARMACY PHARMACY [facility] [employer] IPRATROPI UM BROM TO 0.5 MG ADMN SET A7003 YOUR YOUR SM VOL 7 PHARMACY PHARMACY [facility] PNEUMAT NEBULIZR DISPBL O2 CONC 1 E1390 [facility] LEVY [facility] 7 HOME HOME 85%/>02 MEDICAL MEDICAL CONC AT EQUIPME EQUIPME PRSC FLW RATE O2 CONC 1 E1390 [facility] LEVY [place] 7 HOME HOME 85%/>02 MEDICAL MEDICAL CONC AT EQUIPME EQUIPME PRSC FLW RATE SBSQ 36960 [facility] 7 MEDICAL CARE/DAY SERV 25 FOUNDATIO MINUTES N RADIOLOGI 88435 [facility] C EXAM 7 MEDICAL MEDICAL CHEST [...] YOUR SM VOL 6 PHARMACY PHARMACY NONFILTR [facility] PNEUMAT NEBULIZR DISPBL O2 CONC 1 E1390 [facility] [place] 6 HOME HOME 85%/>02 MEDICAL MEDICAL CONC AT EQUIPME EQUIPME PRSC [facility] G0463 L[facility] AYALA OUTPATIEN 6 MEM HOSP [facility] T CLIN INC INC VISIT ASSESS & MGMT PT O2 CONC 1 E1390 [facility] [place] 6 HOME HOME 85%/>02 MEDICAL MEDICAL CONC [place] [address] [place] FONTANE[facility] ALL ABDOMEN 6 MEDICAL W/CONTRAS IMAGING T ASS MATERIAL COLLECTIO 98791 LUCY AYALA N VENOUS 6 MEM HOSP [facility] BLOOD INC INC VENIPUNCT URE COMPREHEN 06331 [facility] A[facility]AL[facility] SIVE 6 [facility] HOS[facility] METABOLIC INC INC PANEL LOCM Q9967 [facility] AYALA 300-399 6 [facility] H[facility] MG/ML INC INC IODINE CONCENTRA TION PER ML BLOOD 84199 [facility] A[facility]ALA COUNT 6 [facility] HOS[facility]OS[facility] COMPLETE INC INC AUTO&AUTO DIFRNTL WBC ANES 91668 [facility] UPPER GI 6 ANESTH PALMA ENDOSCOPY OF THE PROXIMAL BLUE TO DUODENUM O2 CONC 1 E1390 [facility] [place] 6 HOME HOME 85%/>[address] [facility] FLW RATE RADEX 47926 L[facility] AYALA UPPER GI 6 MEM HOSP MEM HOSP W/WO INC INC GLUCAGON/ DELAY IMAGES W/KUB O2 CONC 1 E1390 [facility] PENA [place] 6 HOME MAR 85%/>02 MEDICAL CONC AT [facility] FLW RATE RADEX 49027 [place] FONTANEZ ALL UPPER GI 6 MEDICAL W/WO IMAGING GLUCAGON/ ASS DELAY IMGES W/O KUB COLLECTIO 63561 [facility] AYALA N VENOUS 6 MEM [facility] HOSP BLOOD INC INC VENIPUNCT URE FLOW 96889 L[facility] AYALA CYTOMETRY 6 [facility] CELL INC INC SURF MARKER TECHL ONLY EA FLOW 24190 LUCY AYALA CYTOMETRY 6 MEM HOSP [facility] HOSP CELL INC INC SURF MARKER TECHL ONLY 1ST FLOW 95395 MOLECULAR MOLECULAR CYTOMETRY 6 [facility] PATHOLOGY PATHOLOGY 2-8 LAB NETW LAB NETW MARKERS NEBULIZER E0570 [facility] LEVY WITH 6 HOME HOME [facility] O2 CONC 1 E1390 [facility] [place] 6 HOME KEY 85%/>02 MEDICAL CONC AT [facility] FLW RATE SEAT E0156 [facility] ATTACHMEN 6 T WALKER WALKER E0143 [facility] FOLDING 6 WHEELED ADJUSTABL E/FIXED HEIGHT ECG 92326 [place] SAGE CHI ROUTINE 6 MEDICAL ECG SERV W/LEAST FOUNDATIO 12 LDS N I&R ONLY ECG 26106 [place] PELAEZ ROUTINE 6 MEDICAL NAN ECG SERV W/LEAST FOUNDATIO 12 LDS N I&R ONLY RADIOLOGI 10035 [place] JAMES CON C 6 MEDICAL EXAMINATI SERV ON CHEST FOUNDATIO SINGLE N VIEW FRONTAL SBSQ 25293 [facility] 6 MEDICAL KEYANA CARE/DAY SERV 25 FOUNDATIO MINUTES N RADIOLOGI 79180 [place] WILLIEK C 6 MEDICAL AYA MAR EXAMINATI SERV ON CHEST FOUNDATIO SINGLE N VIEW FRONTAL SBSQ 76685 [facility] 6 MEDICAL KEYANA CARE/DAY SERV 15 FOUNDATIO MINUTES N SBSQ 36516 [facility] 6 MEDICAL KEYANA CARE/DAY SERV 15 FOUNDATIO MINUTES N RADIOLOGI 77560 [place] [facility] C 6 MEDICAL EXAMINATI SERV ON CHEST FOUNDATIO SINGLE N VIEW FRONTAL SBSQ 67052 [facility] 6 MEDICAL CARE/DAY SERV 25 FOUNDATIO MINUTES N RADIOLOGI 95824 [place] [facility] LEATHA C 6 MEDICAL EXAMINATI SERV ON CHEST FOUNDATIO SINGLE N VIEW FRONTAL RADIOLOGI 39441 [place] [facility] C 6 MEDICAL EXAMINATI SERV ON CHEST FOUNDATIO SINGLE N VIEW FRONTAL SBSQ 27384 [facility] 6 MEDICAL CARE/DAY SERV 25 FOUNDATIO MINUTES N ECG 41895 [facility] ROUTINE 6 MEDICAL ECG SERV W/LEAST FOUNDATIO 12 LDS N I&R ONLY RADEX 03088 [place] [facility] ABDOMEN 1 6 MEDICAL SUSAN SERV ANTEROPOS FOUNDATIO TERIOR N VIEW ECG 42160 [facility] ROUTINE 6 MEDICAL ECG SERV W/LEAST FOUNDATIO 12 LDS N I&R ONLY RADIOLOGI 78534 [place] [facility] LE[facility] C 6 MEDICAL EXAMINATI SERV ON CHEST FOUNDATIO SINGLE N VIEW FRONTAL RADEX 36286 [facility] ABDOMEN 1 6 Y OF CAR [place] [facility] TERIOR VIEW CRITICAL 73947 [facility] CARE 6 MEDICAL ILL/INJUR SERV ED FOUNDATIO PATIENT N INIT 30-74 MIN RADEX 35143 [facility] 1 6 Y [facility] VIEW RADIOLOGI 23353 [place] [facility] C 6 MEDICAL AYA MAR EXAMINATI SERV ON CHEST FOUNDATIO SINGLE N VIEW FRONTAL SBSQ 31442 [place] [facility] 6 MEDICAL CARE/DAY SERV [address] THORAX [address]5627 [place] [facility] CON 6 MEDICAL W/[place] [address] [place] [facility] ABDOMEN & 6 MEDICAL PELVIS SERV W/CONTRAS FOUNDATIO T N MATERIAL RADIOLOGI 20889 [place] [facility] CON C 6 MEDICAL EXAMINATI SERV ON CHEST FOUNDATIO SINGLE N VIEW FRONTAL RADEX ABD 36861 [facility] 6 MEDICAL JURGEN AQT ABD SERV ANNEL W/S/E/D FOUNDATIO VIEWS 1 N VIEW CH SBSQ 27274 [facility] 6 MEDICAL AND CARE/DAY SERV 25 FOUNDATIO MINUTES N INITIAL 47259 [place] [address] MEDICAL [place] CARE/DAY SERV 30 FOUNDATIO MINUTES N ECG 00807 [facility] ROUTINE 6 MEDICAL ECG SERV W/LEAST FOUNDATIO 12 LDS N I&R ONLY ECHO 49188 [facility] TTHR R-T 6 MEDICAL [place] 2D SERV W/WOM-MOD FOUNDATIO E COMPL N SPEC&COLR D SBS[place] 91422 [facility] [facility] 6 MEDICAL AND CARE/DAY SERV 25 FOUNDATIO MINUTES N RADIOLOGI 90953 [place] JAMES CON C 6 MEDICAL EXAMINATI SERV ON CHEST FOUNDATIO SINGLE N VIEW FRONTAL ECG 23344 [facility] ROUTINE 6 MEDICAL ECG SERV W/LEAST FOUNDATIO 12 LDS N I&R ONLY RADIOLOGI 69869 [place] JAMES CON C 6 MEDICAL EXAMINATI SERV ON CHEST FOUNDATIO SINGLE N VIEW FRONTAL RADEX 12005 [facility] ABDOMEN 1 6 Y OF [facility] TERIOR VIEW RADIOLOGI 88347 [place] WILLIEK C 6 MEDICAL AYA MAR EXAMINATI SERV ON CHEST FOUNDATIO SINGLE N VIEW FRONTAL RADIOLOGI 78000 [place] ROBBINS C 6 MEDICAL JESS EXAMINATI SERV ON CHEST FOUNDATIO SINGLE N VIEW FRONTAL RADEX 82820 [place] ZAGUROVSK ABDOMEN 1 6 MEDICAL AYA MAR SERV ANTEROPOS FOUNDATIO TERIOR N VIEW CT THORAX 69772 [place] ARMENDARIZ JENNA 6 MEDICAL W/CONTRAS SERV T FOUNDATIO MATERIAL N RADEX 22250 [facility] ABDOMEN 1 6 Y OF [place] [facility] TERIOR VIEW RADIOLOGI 82814 [place] ZAGUROVSK C 6 MEDICAL AYA MAR EXAMINATI SERV ON CHE[place] [address] [place] AYOOB AND ABDOMEN & 6 MEDICAL PELVIS SERV W/CONTRAS FOUNDATIO T N MATERIAL RADEX 96041 [facility] ABDOMEN 1 6 [facility] [place] [facility] TERIOR VIEW SBSQ 06981 [facility] 6 MEDICAL AND CARE/DAY SERV 25 FOUNDATIO MINUTES N SBSQ 83887 [facility] 6 MEDICAL AND CARE/DAY SERV 25 FOUNDATIO MINUTES N RADIOLOGI 98387 [place] DELL CAR C 6 MEDICAL EXAMINATI SERV ON CHEST FOUNDATIO SINGLE N VIEW FRONTAL ECG 68823 [place] HUI MIKHAIL ROUTINE 6 MEDICAL ECG SERV W/LEAST FOUNDATIO 12 LDS N I&R ONLY RADIOLOGI 75753 [place] JAMES CON C 6 MEDICAL EXAMINATI SERV ON CHEST FOUNDATIO SINGLE N VIEW FRONTAL ANESTHESI 89307 [facility] 6 Y [facility] [facility] ABDOMEN NOS ECG 67088 [place] HUI MIKHAIL ROUTINE 6 MEDICAL ECG SERV W/LEAST FOUNDATIO 12 LDS N I&R ONLY SBSQ 03510 [facility] 6 MEDICAL RONNY CARE/DAY SERV 25 FOUNDATIO MINUTES N RPR 1ST 44188 [facility] 6 MEDICAL RONNY HRNA AGE SERV 5 YRS/> [place] [address] [place] HIEU SURG 6 MEDICAL FRANCO PATHOLOGY SERV FOUNDATIO GROSS&JESS N ROSCOPIC EXAM LEVEL III 07461 [place] HIEU SURG 6 MEDICAL FRANCO PATHOLOGY SERV FOUNDATIO GROSS&JESS N ROSCOPIC EXAM ARTL 13406 [facility] CATH/CAN 6 Y OF Y OF NULJ [facility] SFUSION SPX PRQ INITIAL 83492 [place] [address] MEDICAL [facility] CARE/DAY SERV 50 [place] [address] LUCY AYALA INFUSION 6 [facility] THERAPY/P INC INC ROPHYLAXI S /DX 1ST TO 1 [place] [address] L[facility] A[facility]AL[facility] TROPONIN 6 [facility] QUANTITAT INC INC ARCENIO BLOOD 96802 L[facility] AYAL[facility] COUNT 6 [facility] COMPLETE INC INC AUTO&AUTO DIFRNTL WBC INJECTION J2405 [facility] A[facility]AL[facility] 6 [facility] ONDANSETR INC INC ON HCL PER 1 MG INJ J2543 LUC[facility] AYALA PIPERACIL 6 [facility] YONATHAN INC INC SOD/TAZOB ACTAM SOD 1 G/0.125 G COMPREHEN 87305 LUC[facility] AYALA SIVE 6 [facility] [place] [address] LUC[facility] AYALA AMYLASE 6 [facility] INC INC CREATINE 68456 LUCY AYALA KINASE MB 6 [facility] FRACTION INC INC ONLY GROUND A0425 [facility] MILEAGE 6 AMBULANCE AMBULANCE PER SERVICE SERVICE STATUTE MILE AMBULANCE A0429 [facility] SERVICE 6 AMBULANCE AMBULANCE BLS SERVICE SERVICE EMERGENCY TRANSPORT ECG 08091 LUCY BEVERLY ROUTINE 6 [facility] W/LEAST P 12 LDS I&[place] [address] LUCY AYALA LIPASE 6 [place] [address] LUCY AYALA ABDOMEN & 6 [facility] PELVIS INC INC W/O CONTRAST MATERIAL ECG 19720 LUC[facility] AYALA ROUTINE 6 [facility] ECG INC INC W/LEAST 12 LDS TRCG ONLY W/O I&R CREATINE 82815 [facility] KINASE 6 [facility] TOTAL INC INC RADIOLOGI 65112 L[facility] A[facility]ALA C 6 [facility] EXAMINATI INC INC ON CHEST SINGLE VIEW FRONTAL THER 68458 LUCY AYALA PROPH/DX 6 [facility] NJX EA INC INC SEQL IV PUSH SBST/DRUG FAC BLOOD 63328 Darnell Wagner KIRILL JENNA COUNT 6 PILAR PLEITEZ COMPLETE PSC AUTO&AUTO DIFRNTL WBC COLLECTIO 50599 Darnell Wagner KIRILL JENNA N VENOUS 6 PILAR PLEITEZ BLOOD PSC VENIPUNCT URE NEBULIZER E0570 MILDRED LEVY WITH 6 HOME HOME COMPRESSO MEDICAL MEDICAL R EQUIPME EQUIPME ECG 63669 LUCY BEVERLY ROUTINE 6 [facility] W/LEAST P 12 LDS I&R ONLY INITIAL 32961 [facility] 6 [facility]/DAY INTERNAL 70 MED MINUTES RADIOLOGI 65991 [place] FR[place] C 6 MEDICAL EXAMINATI IMAGING ON CHEST ASS SINGLE VIEW FRONTAL NEBULIZER E0570 MILDRED LEVY WITH 6 HOME HOME COMPRESSO MEDICAL MEDICAL R EQUIPME EQUIPME COMPREHEN 03007 [facility] A[facility] SIVE 6 [facility] METABOLIC INC INC PANEL COLLECTIO 72555 LUC[facility] AYALA N VENOUS 6 [facility] BLOOD INC INC VENIPUNCT URE RADIOLOGI 78440 LUC[facility] AYALA C EXAM 6 [facility] CHEST 2 INC INC VIEWS FRONTAL&L ATERAL BLOOD 86971 LUC[facility] AYALA COUNT 6 [facility] COMPLETE INC INC AUTO&AUTO DIFRNTL WBC RADIOLOGI 60943 [place] FONT[place] [facility] 6 MEDICAL EXAMINATI IMAGING ON CHEST ASS SINGLE VIEW FRONTAL ALBUTEROL J7620 YOUR YOUR TO 2.5 6 PHARMACY PHARMACY [employer] IPRATROPI UM BROM TO 0.5 MG ADMN SET A7003 YOUR YOUR SM VOL 6 PHARMACY PHARMACY NONFILTR [employer] PNEUMAT NEBULIZR DISPBL PHRM Q0513 YOUR YOUR DISPENSIN 6 PHARMACY PHARMACY G FEE [employer] INHALATIO N RX; PER 30 DAYS NEBULIZER [...] IPRATROPI UM BROM TO 0.5 MG RADIOLOGI 55696 LUCY AYALA C EXAM 5 [facility] CHEST 2 INC INC VIEWS FRONTAL&L ATERAL CT THORAX 16498 L[facility] 5 [facility] W/CONTRAS INC INC T MATERIAL RADIOLOGI 07739 [facility] C EXAM 5 MEDICAL CHEST 2 IMAGING VIEWS ASS FRONTAL&L ATERAL NEBULIZER E0570 MILDRED LEVY WITH 5 HOME HOME COMPRESSO MEDICAL MEDICAL R EQUIPME EQUIPME ALBUTEROL J7620 YOUR YOUR TO 2.5 5 PHARMACY PHARMACY MG & [employer] IPRATROPI UM BROM TO 0.5 MG PHARM G0333 YOUR YOUR DISPEN 5 PHARMACY PHARMACY FEE [employer] [facility] RX; INITIAL 30-DAY SUPPLY CATARACT [address] [facility] REMOVAL 5 JAMILAH JAMILAH INSERTION OF LENS CONTINUOU E0601 MILDRED MILDRED S 5 HOME [...] EQUIPME EQUIPME ARWAY PRESS DEVICE EA POLYSOM 13719 [place] [facility] MAR 6/>YRS 4 SLEEP 4/> NEUROSCIE ADDL NCES CENT AMA ATTND POLYSOM 62039 LUCY AYALA 6/>YRS 4 [facility] SLEEP 4/> [place] [address] LUCY LUCY SURG 4 [facility] PATHOLOGY INC INC GROSS&[place] [address] LUC[facility] AYALA INFUSION 4 [facility] THERAPY INC INC PROPHYLAX IS/DX EA HOUR SPCL STN 30040 LUCY AYALA 2 I&R 4 [facility] EXCPT INC INC MICROORG/ ENZYME/IM CYT SPECIAL 45661 LUC[facility] AYALA STAIN 4 [facility] GROUP 1 INC INC MICROORGA NISMS I&R IMC/IMC G0461 [facility] PER 4 [facility] SPECIMEN; INC INC 1ST SNGL/[place] [address] L[facility] A[facility] INFUSION 4 [facility] THERAPY/P INC INC ROPHYLAXI S /DX 1ST TO 1 HR SPMTRY 92299 L[facility] A[facility] W/VC 4 [facility] EXPIRATOR INC INC Y ALFREDO W/WO MXML VOL VNTJ ECHO 45865 L[facility] AYAL[facility] TTHRC R-T 4 [facility] 2D INC INC W/WOM-MOD E COMPL SPEC&COLR D CV STRS 23635 GLENN ELIZABETH JR TST 4 DWI DWI XERS&/OR RX CONT ECG I&R ONLY MYOCARDIA 34194 TEX Parra 4 MEDICAL EMY PERFUSION IMAGING PLANAR ASS MULTIPLE STUDIES MYOCARDIA 81897 [facility] A[facility] L SPECT 4 [facility] MULTIPLE INC INC STUDIES CV STRS 73934 KEITH MORENO TST 4 XERS&/OR RX CONT ECG W/O I&R RADIOLOGI 49367 TEX Wagner EXAM 4 MEDICAL EMY CHEST 2 IMAGING VIEWS ASS FRONTAL&L ATERAL PRTBLE E0431 MILDRED LEVY GASEOUS 3 HOME HOME O2 SYS MEDICAL [...] SONE ACETATE & PHOSPHATE 3 MG RADIOLOGI 15583 [facility] C EXAM 3 EMY EMY CHEST 2 VIEWS FRONTAL&L ATERAL INJECTION J0690 ERIKA JAMES [...] EQUIPME EQUIPME FLWMTR HUMIDFR&M ASK CT THORAX 78677 [facility] W/O 2 MEDICAL EMY CONTRAST IMAGING MATERIAL ASS 3D 18849 [facility] RENDERING 2 MEDICAL EMY IMAGING W/INTERP& ASS POSTPROC DIFF WORK STATION PRTBLE E0431 MILDRED MILDRED GASEOUS 2 HOME HOME O2 SYS MEDICAL MEDICAL RENT; EQUIPME EQUIPME FLWMTR HUMIDFR&M ASK TOBACCO 99047 JAMES JAMES USE 2 DON DON CESSATION INTERMEDI ATE 3-10 MINUTES PRTBLE E0431 MILDRED MILDRED GASEOUS 2 HOME HOME O2 SYS MEDICAL MEDICAL RENT; EQUIPME EQUIPME FLWMTR HUMIDFR&M ASK PRTBLE E0431 MILDRED MILDRED GASEOUS 2 HOME HOME O2 SYS MEDICAL MEDICAL RENT; EQUIPME EQUIPME FLWMTR HUMIDFR&M ASK SPMTRY 14036 [facility] W/VC 2 [facility] EXPIRATOR INC INC Y ALFREDO W/WO MXML VOL VNTJ RADIOLOGI 24507 [place] [facility] C EXAM 2 MEDICAL EMY CHEST 2 IMAGING VIEWS ASS FRONTAL&L ATERAL PRTBLE E0431 MILDRED BARBERRELL GASEOUS 2 HOME HOME O2 SYS MEDICAL MEDICAL RENT; EQUIPME EQUIPME FLWMTR HUMIDFR&M ASK RADIOLOGI 86071 [facility] C EXAM 2 MEDICAL EMY CHEST 2 IMAGING VIEWS ASS FRONTAL&L ATERAL SMR PRIM 30069 LUCY AYALA SRC 2 [facility] GRAM/GIEM INC INC SA STAIN BCT FUNGI/VAHID L PROTEIN 98116 LUCY AYALA XCPT 2 [facility] REFRACTOM INC INC ETRY SERUM PLASMA/WH L BLD LACTATE 79084 LUCY AYAL[facility] DEHYDROGE 2 [facility] NASE LDH INC INC IRON 63089 LUCY AYALA BINDING 2 [facility] CAPACITY INC INC GLUCOSE 22712 LUCY AYALA BODY 2 [facility] FLUID INC INC OTHER THAN BLOOD BLOOD 50684 LUCY AYALA GASES ANY 2 [facility] INC INC COMBINATI ON PH PCO2 PO2 CO2 [address]CO[address] THORAX 07994 [facility] W/O 2 MEDICAL EMY CONTRAST IMAGING MATERIAL ASS TISS FRED 76586 LUCY AYALA SLIDE 2 [facility] SAMPS INC INC SKN/HR/NL S FNGI/ECTO PARASIT CULTURE 43411 LUCY AYALA TUBERCLE/ 2 [facility] OTH INC INC ACID-FAST BACILLI ANY ISOL CULTURE 57738 LUCY AYALA BACTERIAL 2 [facility] ANY INC INC SOURCE ANAEROBIC ISO&ID CUL BACT 00634 LUCY AYALA XCPT 2 [facility] URINE INC INC BLOOD/[place] [address] [place] GUIDANCE 2 MEDICAL EMY NEEDLE IMAGING PLACEMENT ASS CYANOCOBA 70770 LUCY AYALA BETTIE 2 [facility] VITAMIN INC INC B-12 THORACENT 98756 [facility] ESIS 2 MEDICAL EMY PUNCTURE IMAGING PLEURAL [place] [address] LUCY AYALA IRON 2 [facility] INC INC CARBOXYHE 66752 LUCY AYALA MOGLOBIN 2 [facility] QUANTITAT INC INC ARCENIO CELL 84574 LUCY AYALA COUNT 2 [facility] MISC BODY INC INC FLUIDS W/DIFFERE NTIAL COUNT COLLECTIO 64541 LUCY AYALA N VENOUS 2 [facility] BLOOD INC INC VENIPUNCT URE CYTP 76732 PATHOLOGY PATHOLOGY SLCTV 2 & & CELL CYTOLOGY CYTOLOGY ENHANCEME LAB LAB NT INTERPJ XCPT C/V NONINVASI 73333 LUCY AYALA VE 2 [facility] EAR/PULSE INC INC OXIMETRY SINGLE DETER ECG 13461 LUC[facility] AYALA ROUTINE 2 [facility] ECG INC INC W/LEAST 12 LDS TRCG ONLY W/O I&R ECG 64415 RUSH BEVERLY ROUTINE 2 JENNA JENNA ECG W/LEAST 12 LDS I&R ONLY CT THORAX 62372 [place] [facility] W/O 2 MEDICAL EMY CONTRAST IMAGING MATERIAL ASS 3D 95051 [place] RENDERING 2 MEDICAL EMY IMAGING W/INTERP& ASS POSTPROC DIFF WORK STATION SPUTUM 75788 LUCY AYALA OBTAINING 2 [facility] SPEC INC INC AEROSOL INDUCED TX SPX PRTBLE E0431 MILDRED BARBERRELL GASEOUS 2 HOME HOME O2 SYS MEDICAL MEDICAL RENT; EQUIPME EQUIPME FLWMTR HUMIDFR&M ASK PRTBLE E0431 MILDRED BAR[place]RELL GASEOUS 2 HOME HOME O2 SYS MEDICAL MEDICAL RENT; EQUIPME EQUIPME FLWMTR HUMIDFR&M ASK SPMTRY 86941 [facility] W/VC 2 [facility] EXPIRATOR INC INC Y ALFREDO W/WO MXML VOL VNTJ PRTBLE E0431 MILDRED MILDRED GASEOUS 2 HOME HOME O2 SYS MEDICAL MEDICAL RENT; EQUIPME EQUIPME FLWMTR HUMIDFR&M ASK PRTBLE E0431 MILDRED MILDRED GASEOUS 2 HOME HOME O2 SYS MEDICAL MEDICAL RENT; EQUIPME EQUIPME FLWMTR HUMIDFR&M ASK RADIOLOGI 48766 ERIKA JAMES C EXAM 2 DON DON CHEST 2 VIEWS FRONTAL&L ATERAL CT THORAX 50082 [place] [facility] 2 MEDICAL EMY W/CONTRAS IMAGING T ASS MATERIAL COMPREHEN 75171 COMBINED COMBINED SIVE 2 PHYSICIAN PHYSICIAN [place] [address] COMBINED COMBINED PROSTATE 2 PHYSICIAN PHYSICIAN SPECIFIC S LA S LA ANTIGEN TOTAL LIPID 49799 COMBINED COMBINED PANEL 2 PHYSICIAN PHYSICIAN S LA S LA BLOOD 35029 COMBINED COMBINED COUNT 2 PHYSICIAN PHYSICIAN COMPLETE S LA S LA AUTO&AUTO DIFRNTL WBC O2 CONC 1 E1390 MILDRED LEVY DEL [...] EQUIPME PRSC FLW RATE PRTBLE E0431 MILDRED BARBERRELL GASEOUS 1 HOME HOME O2 SYS MEDICAL MEDICAL RENT; EQUIPME EQUIPME FLWMTR HUMIDFR&M ASK O2 CONC 1 E1390 MILDRED LUIS [facility] 1 HOME HOME 85%/>02 MEDICAL MEDICAL CONC AT EQUIPME EQUIPME [facility] FLW RATE O2 CONC 1 E1390 MILDRED LUIS [facility] 1 HOME HOME 85%/>02 MEDICAL MEDICAL CONC AT EQUIPME EQUIPME [facility] FLW RATE PRTBLE E0431 MILDRED LEVY GASEOUS 1 HOME HOME O2 SYS MEDICAL MEDICAL RENT; EQUIPME EQUIPME [facility] HUMIDFR&M ASK O2 CONC 1 E1390 MILDRED LUIS [facility] 1 HOME MED HOME MED 85%/>02 EQUIP. [...] ASK O2 CONC 1 E1390 MILDRED [facility]IS [facility] 1 HOME MED HOME MED 85%/>02 EQUIP. L EQUIP. L CONC AT [facility] FLW RATE O2 CONC 1 E1390 MILDRED LUIS [facility] 1 HOME MED HOME MED 85%/>02 EQUIP. L EQUIP. L CONC AT [facility] FLW RATE PRTBLE E0431 MILDRED LEVY GASEOUS 1 HOME MED HOME MED O2 SYS EQUIP. L EQUIP. L RENT; [facility] HUM[facility] AS[facility] O2 CONC 1 E1390 MILDRED [facility]IS [facility] 1 HOME MED HOME MED 85%/>02 EQUIP. [...] HUMIDFR&M ASK O2 CONC 1 E1390 MILDRED [place] 0 HOME MED HOME MED [...] HUMIDFR&M ASK O2 CONC 1 E1390 [facility] MED HOME MED 85%/>02 EQUIP. L EQUIP. L CONC AT [facility] FLW RATE INJECTION J2250 [facility] 0 Y Y MIDAZOLAM [facility] HCL PER 1 MG SMR PRIM 62873 [facility] SRC 0 Y Y GRAM/GIEM [facility] SA STAIN BCT FUNGI/VAHID L CULTURE 30087 [facility] FUNGI 0 Y Y DEFINITIV [facility] E ID EACH ORGANISM YEAST VIRUS 64232 [facility] CENTRIFUG 0 Y [facility] IMFLUOR STAIN EA RADIOLOGI 47336 [place] ROBBINS C 0 MEDICAL JESS EXAMINATI SERV ON CHEST FOUNDATIO SINGLE VIEW FRONTAL SPECIAL 25779 [place] ALIRIO STAIN 0 MEDICAL BRILL YOL GROUP 1 SERV MICROORGA FOUNDATIO NISMS I&R CULTURE 84533 [facility] FNGI 0 Y Y MOLD/YEAS [facility] T PRSMPTV OTH XCPT BLOOD BRONCHOSC 42227 [place] KUMAR OPY 0 MEDICAL MARIAN NEEDLE BX SERV TRACHEA FOUNDATIO MAIN STEM&/BRO N BRONCHOSC 98356 [place] KUMAR OPY 0 MEDICAL MARIAN W/TRANSBR SERV ONCHIAL FOUNDATIO LUNG BX 1 LOBE INJECTION J3010 [facility] FENTANYL 0 Y Y CITRATE [facility] 0.1 MG BRNCHSC 72329 [facility] W/BRNCL 0 Y Y ALVEOLAR [facility] LAVAGE CUL BACT 85153 [facility] XCPT 0 Y Y URINE [facility] BLOOD/STO OL AEROBIC ISOL TISS FRED 71311 [facility] SLIDE 0 Y Y [facility] SKN/HR/NL S FNGI/ECTO PARASIT SMR PRIM 78779 [facility] SRC 0 Y Y FLUORESCE [facility] NT&/AFS BCT FNGI PARASIT CULTURE 31394 [facility] TUBERCLE/ 0 Y Y OTH [facility] ACID-FAST BACILLI ANY ISOL IAADI 69843 [facility] PNEUMOCUS 0 Y Y TIS [facility] CARINII CONCENTRA 89392 [facility] TION 0 Y Y INFECTIOU [facility] S AGENTS VIRUS 70394 [facility] TISS CUL 0 Y Y INOCULATI [facility] ON CYTOPATHI C EFFECT IADNA NOS 75713 [facility] 0 Y Y AMPLIFIED [facility] PROBE TQ EACH ORGANISM CELL 55927 [facility] COUNT 0 Y Y MISC BODY [facility] FL[place] [address] [place] ALIRIO SURG 0 MEDICAL BRILL YOL PATHOLOGY SERV FOUNDATIO GROSS&JESS ROSCOPIC EXAM CYTP FINE 66829 [place] BRENDEN REINA NDL 0 MEDICAL ASPIRATE SERV IMMT FOUNDATIO CYTOHIST STD DX 1ST CYTP EVAL 90885 [place] BREND[place] REINA FINE 0 MEDICAL NEEDLE SERV ASPIRATE FOUNDATIO INTERP & REPORT PRTBLE E0431 MILDRED LEVY GASEOUS 0 HOME MED HOME MED O2 SYS EQUIP. L EQUIP. L RENT; FLWMTR HUMIDFR&M ASK O2 CONC 1 E1390 [place]ED L[place]Y [place] PORT 0 HOME MED HOME MED 85%/>02 EQUIP. L EQUIP. L CONC AT [facility] FLW RATE RADEX 63168 LUCY AYALA ESOPHAGUS 0 [facility] INC INC PHLEBOTOM 22205 COMBINED COMBINED Y 0 PHYSICIAN PHYSICIAN THERAPEUT S LA S LA IC SEPARATE PROCEDURE DUP-SCAN 20591 LUCY AYALA XTR VEINS 0 [facility] COMPLETE INC INC BILATERAL STUDY BRNCDILAT 80761 LUCY AYALA RSPSE 0 [facility] SPMTRY INC INC PRE&POST- BRNCDILAT ADMN BLOOD 47507 LUCY AYALA COUNT 0 [facility] COMPLETE INC INC AUTO&AUTO DIFRNTL WBC PULMONARY 85385 [place] PLOLOCK STRESS 0 MEDICAL JAM TESTING SERV SIMPLE FOUNDATIO COMPREHEN 12208 LUCY AYALA SIVE 0 [facility] METABOLIC INC INC PANEL COLLECTIO 33202 LUCY AYALA N VENOUS 0 [facility] BLOOD INC INC VENIPUNCT URE COLLECTIO 74434 COMBINED COMBINED N VENOUS 0 PHYSICIAN PHYSICIAN BLOOD S LAB S LAB VENIPUNCT URE COMPREHEN 62567 COMBINED COMBINED SIVE 0 PHYSICIAN PHYSICIAN METABOLIC S LAB S LAB PANEL CT THORAX 01034 LUCY AYALA W/O 0 [facility] CONTRAST INC INC MATERIAL 3D 78500 LUCY AYALA RENDERING 0 [facility] INC INC W/INTERP& POSTPROC DIFF WORK STATION RADIOLOGI 10571 LUCY AYALA C EXAM 0 [facility] CHEST 2 INC INC VIEWS FRONTAL&L ATERAL O2 CONC 1 E1390 [place] 0 HOME MED HOME MED 85%/>02 EQUIP. EQUIP. CONC AT [facility] FLW RATE PRTBLE E0431 MILDRED LEVY GASEOUS 0 HOME MED HOME MED O2 SYS EQUIP. EQUIP. RENT; [facility] FLWMTR HUMIDFR&M ASK PRTBLE E0431 MILDRED BARBERRELL GASEOUS 0 HOME MED HOME MED O2 SYS EQUIP. EQUIP. RENT; [facility] FLWMTR HUMIDFR&M ASK O2 CONC 1 E1390 MILDRED LEVY DEL PORT 0 HOME MED HOME MED 85%/>02 EQUIP. EQUIP. CONC AT [facility] FLW RATE ECG 68409 ERIKA JAMES, ROUTINE 0 DON R DON R ECG W/LEAST 12 LDS W/I&R RADIOLOGI 34554 ERIKA JAMES C EXAM 0 DON R DON R CHEST 2 VIEWS FRONTAL&L ATERAL INJECTION J1940 ERIKA JAMES, 0 DON R DON R FUROSEMID E UP TO 20 MG RADIOLOGI 93343 ERIKA JAMES 0 DON R DON R EXAMINATI ON CHEST [facility] 74084 JAMESERIKA VELASCO, DISCHARGE 0 DON R DON R DAY MANAGEMEN T 30 MIN/< RADIOLOGI 23601 Kristy VALENTIN EXAM 0 MEDICAL JANE P CHEST 2 IMAGING VIEWS ASSOCIATE FRONTAL&L S ATERAL [facility] 28673 [facility] 0 DON R DON R CARE/DAY 25 MINUTES [facility] 30029 [facility] 0 DON R DON R CARE/DAY 25 MINUTES [facility] 34426 [facility] 0 DON R DON R CARE/DAY 25 MINUTES [facility] 25380 [facility] 0 DON R DON R CARE/DAY [address] THORAX 03749 [place], 0 MEDICAL SHASHI W/CONTRAS IMAGING T ASSOCIATE MATERIAL S 3D 05416 [place], RENDERING 0 MEDICAL SHASHI IMAGING W/INTERP& ASSOCIATE POSTPROC S DIFF WORK STATION [facility] [address] [facility] 0 DON R DON R CARE/DAY 25 MINUTES RAD[facility] 62822 ERIKA JAMES 0 DON R DON R EXAMINATI ON CHEST S[facility]DAY 50 MINUTES RAD[facility]OLOGI [id number] [facility] TITUS EXAM 0 MEDICAL SHASHI CHEST 2 IMAGING VIEWS ASSOCIATE FRONTAL&L S ATERAL OPHTH 35310 RUIZ, [facility] 9 DONTE A DONTE A XM&EVAL COMPRHNSV ESTAB PT 1/> SCANNING 16807 RETINA & NINI, OPHTHALMI 9 VITREOUS CALLIE W C IMAGING ASSOCIATE S O POSTERIOR SGM UNI OPHTH 25028 RETINA & NINI, MEDICAL 9 VITREOUS CALLIE W XM&EVAL ASSOCIATE INTERMEDI S O ATE ESTAB PT INJECTION [id number] ERIKA JAMES 8 DON R DON R METHYLPRE DNISOLONE ACETATE 80 MG SCANNING [id number] RETINA & NINI, OPHTHALMI 8 VITREOUS CALLIE W C IMAGING ASSOCIATE S O POSTERIOR SGM UNI OPHTH 52413 RETINA & NINI, MEDICAL 8 VITREOUS CALLIE W XM&EVAL ASSOCIATE INTERMEDI S O ATE ESTAB PT INJECTION [id number] ERIKA JAMES, Adán DON R DON R METHYLPRE DNISOLONE ACETATE 80 MG OPHTH 57801 [facility] A DONTE A XM&EVAL COMPRHNSV ESTAB PT 1/> SCANNING 29572 RETINA & NINI, OPHTHALMI 8 VITREOUS CALLIE W C IMAGING ASSOCIATE S O POSTERIOR SGM UNI OPHTH 21984 RETINA & NINI, MEDICAL 8 VITREOUS CALLIE W XM&EVAL ASSOCIATE INTERMEDI S O ATE ESTAB PT INJECTION [id number] ERIKA JAMES 8 DON R DON R METHYLPRE DNISOLONE ACETATE 80 MG RADIOLOGI 15944 ERIKA JAMES C EXAM 8 DON R DON R CHEST 2 VIEWS FRONTAL&L ATERAL SCANNING 02-19-200 58486 RETINA & RETINA & OPHTHALMI 8 VITREOUS VITREOUS C IMAGING ASSOCIATE ASSOCIATE S O S O POSTERIOR SGM [facility] OPH 77057 RETINA & RETINA & MEDICAL 8 VITREOUS VITREOUS XM&EVAL ASSOCIATE ASSOCIATE INTERMEDI S O S O ATE ESTAB PT SCANNING 65492 RETINA & RETINA & OPHTHALMI 8 VITREOUS VITREOUS C IMAGING ASSOCIATE ASSOCIATE S O S O POSTERIOR SGM [facility] OPH 32372 RETINA & RETINA & MEDICAL 8 VITREOUS VITREOUS XM&EVAL ASSOCIATE ASSOCIATE INTERMEDI S O S O ATE ESTAB PT INJECTION J1100 ERIKA JAMES, Adán [place] R DON R DEXAMETHO SONE SODIUM PHOSPHATE 1 MG Encounters Encounter Start End Date Code Location Performer Type Date OFFICE 24851 [facility] RHIANNON OUTPATIEN 7 7 PHYSICIAN T VISIT S GROUP 25 MINUTES [facility]OSPITAL LUCY - 7 7 [facility] OUTPATIEN INC T OFFICE 33788 [facility] RHIANNON OUTPATIEN 7 7 PHYSICIAN T VISIT S GROUP 40 MINUTES OFFICE 51205 A C [facility] OUTPATIEN 7 7 [facility]AR PLEITEZ T VISIT [facility] 15 MINUTES OFFICE 28073 [facility] Y OF CK T VISIT [place] 25 HOSPI MINUTES OFFICE 94565 A [facility] OUTPATIEN 7 7 PILAR PLEITEZ T VISIT [facility] 15 MINUTES OFFICE 07556 A [facility] OUTPATIEN 7 7 [facility] T VISIT [facility] 15 MINUTES [facility]OSPITAL LUCY - 7 7 [facility] INPATIENT INC OFFICE 57045 A C [facility] OUTPATIEN 7 7 PILAR PLEITEZ T VISIT PSC 15 MINUTES OFFICE 32241 A [facility] OUTPATIEN 7 7 PILAR PLEITEZ T VISIT [facility] 15 MINUTES [facility]OSPITAL LUCY - 6 6 [facility] OUT[facility] INC T OFFICE 83993 ELIO POLLOCK OUTPATIRYLEE 6 6 MEDICAL JAM T VISIT SERV 25 FOUNDATIO MINUTES N OFFICE 23817 [facility] ALLRAN JR OUTPATIEN 6 6 PHYSICIAN RITA T VISIT S GROUP 10 MINUTES HOSPITAL LUCY - 6 6 [facility] OUTPATIEN INC T OFFICE 64462 [facility] EVAN OUTPATIEN 6 6 [facility] VISIT HOSPITAL 10 P MINUTES OFFICE 67119 A Kristy ROY OUTPATIEN 6 6 PILAR PLEITEZ T VISIT PSC 15 MINUTES OFFICE 22653 ELIO POLLOCK OUTPATIEN 6 6 MEDICAL JAM T VISIT SERV 15 FOUNDATIO MINUTES N OFFICE 82134 [facility] ALLRAN JR OUTPATIEN 6 6 PHYSICIAN RITA T VISIT S GROUP 15 MINUTES OFFICE 49396 [facility] EV[facility] OUTPATIEN 6 6 [facility] 20 HOSPITAL MINUTES HOSPITAL LUCY - 6 6 [facility] OUTPATIEN INC T OFFICE 53689 [facility] ALLRAN JR OUTPATIEN 6 6 [facility] T NEW 45 S GROUP MINUTES OFFICE 36913 [place] OUTPATIEN 6 6 MEDICAL JAM T VISIT SERV 25 [facility]UT[facility] - [facility] 6 [facility] T OFFICE [id number] A Kristy ROY OUTPATIRYLEE 6 6 PILAR PLEITEZ T VISIT PSC 15 MINUTES OFFICE 30931 [place] OUTPATIEN 6 6 MEDICAL JAM T VISIT SERV 25 FOUNDATIO MINUTES N EMERGENCY 06096 [facility] DEPT 6 6 [facility] VISIT [facility] HIGH SEVERITY& THREAT [facility] LUCY - 6 6 [facility] OUTPATIEN INC T OFFICE 64812 A Kristy WEST OUTPATIEN 6 6 PILAR [place] T VISIT PSC 15 MINUTES OFFICE 59660 A Kristy WEST OUTPATIEN 6 6 PILAR PLEITEZ T VISIT PSC 15 MINUTES OFFICE 61523 ELIO DODSONPOLLOCK OUTPATIEN 6 6 MEDICAL JAM T VISIT SERV 40 FOUNDATIO MINUTES [facility] LUCY - 6 6 [facility] INPATIENT [facility] LUCY - 6 6 [facility] OUTPATIEN [facility] OFFICE 71708 ELIO POLLOCK OUTPATIEN 6 6 MEDICAL T VISIT SERV 25 FOUNDATIO MINUTES OFFICE 94864 ELIO POLLOCK OUTPATIEN 6 6 MEDICAL JAM T VISIT SERV 15 FOUNDATIO MINUTES [facility] LUCY - 5 5 [facility] OUTPATIEN [facility] LUCY - 5 5 [facility] LUCY - 5 5 [facility] OUTPATI[facility] OFFICE 37454 A C FIELD AMB OUTPATIEN 5 5 PILAR PLEITEZ T VISIT PSC 15 MINUTES OFFICE 95973 A C FIELD AMB OUTPATIEN 4 4 PILAR P[facility] T VISIT PSC 15 MINUTES [facility]OSPITAL LUCY - 4 4 [facility] OUTPAT[facility]EN [facility] LUCY [facility] 4 4 [facility] OUTPAT[facility]EN [facility] LUCY - 4 4 [facility] LUCY - 4 4 [facility] LUCY - 4 4 [facility] LUCY - 4 4 [facility]EN [facility] LUCY - 4 4 [facility] OFFICE 90698 FIELD AMB FIELD AMB OUTPATIEN 4 4 T VISIT 15 MINUTES OFFICE 76631 FIELD AMB FIELD AMB OUTPATIEN 3 3 T VISIT 15 MINUTES OFFICE 66741 A C FIELD AMB OUTPATIEN 3 3 PILAR PLEITEZ NEW 30 PSC MINUTES OFFICE 38570 ERIKA MELENDREZS OUTPATIEN 3 3 DON DON T VISIT 15 MINUTES OFFICE 89404 ERIKA MELENDREZS OUTPATIEN 3 3 DON DON T VISIT 15 MINUTES HOSPITAL LUCY - [address] [facility] OUTPATIEN [facility] LUCY [facility] [address] [facility] OUTPATIEN [facility] OFFICE 99200 ERIKA MELENDREZS OUTPATIEN 2 2 DON DON T [facility]ISIT 15 MINUTES HOSPITAL LUCY - [address] [facility] [address] [facility] [address] [facility] 2 2 [facility] 51054 ERIKA MELENDREZS OUTPATIEN 2 2 DON DON T VISIT 15 MINUTES OFFICE 12174 JAMES JAMES OUTPATIEN 1 1 DON DON T VISIT 15 MINUTES OFFICE 53884 JAMES JAMES OUTPATIEN 1 1 DON DON T VISIT 15 MINUTES OFFICE 89885 JAMES JAMES OUTPATIEN 1 1 DON DON T VISIT 15 MINUTES OFFICE 00532 JAMES JAMES OUTPATIEN 1 1 DON DON T VISIT 15 MINUTES HOSPITAL UNIVERSIT - 0 0 [facility] LUCY - [address] [facility] LUCY [facility] [address] [facility] OFFICE 45616 ERIKA JAMES OUTPATIEN 0 0 DON R DON R T VISIT 15 MINUTES OFFICE 58523 ERIKA JAMES OUTPATIEN 0 0 DON R DON R T VISIT 25 MINUTES OFFICE 24541 ERIKA JAMES OUTPATIEN 0 0 DON R DON R T VISIT 15 MINUTES OFFICE 94957 ERIKA JAMES OUTPATIEN 8 8 DON R DON R T VISIT 15 MINUTES OFFICE 44612 ERIKA JAMES OUTPATIEN 8 8 DON R DON R T VISIT 15 MINUTES OFFICE 81362 ERIKA JAMES OUTPATIEN 8 8 DON R DON R T VISIT 15 MINUTES OFFICE 12823 ERIKA JAMES OUTPATIEN 8 8 DON R DON R T VISIT 15 MINUTES OFFICE 59952 ERIKA JAMES OUTPATIEN 8 8 DON R DON R T VISIT 15 MINUTES
--- OUTSIDE RECORDS SUMMARY | 2016-12-05 18:51 | External Medical Summary Rpt ---
Author Author , RANDALL Dial RANDALL Address Unknown Phone [email or web address] Care Team Providers Care Oracle Endeca Consultant Name Role Phone A Kristy QUEZADA MD [...] Unavailable Unavailable JENNA WALLACE JAMILAH, Unavailable Unavailable WALLAEC JAMILAH WALLACE JAMILAH, Unavailable Unavailable WALLACE JAMILAH FONTANEZ, FONTANEZ Unavailable Unavailable FONTANEZ ALL, FONTANEZ ALL Unavailable Unavailable ROBBINS JESS, ROBBINS Unavailable Unavailable JESS [facility] Unavailable Unavailable SERVICE, [facility] Unavailable Unavailable SERVICE, [facility] Unavailable Unavailable [place], [...] Unavailable TAYLOR KEYANA, TAYLOR Unavailable Unavailable KEYANA [facility] Unavailable Unavailable INC, [facility] Unavailable Unavailable HOSPITAL P, [facility] P RUIZ, DONTE A, Unavailable Unavailable RUIZ, DONTE A [facility], Unavailable Unavailable [facility] ARMENDARIZ JENNA, ARMENDARIZ JENNA Unavailable Unavailable HUI MIKHAIL, HUI MIKHAIL Unavailable Unavailable BECKY NIXON, BECKY Unavailable Unavailable [facility], [facility] KUMAR MARIAN, Unavailable Unavailable KUMAR MARIAN NINI, CALLIE W, Unavailable Unavailable NINI, CALLIE W [facility] Un[facility] Unavailable [facility] GLENN JR, GLENN JR Unavailable Unavailable GLENN JR DWI, GLENN Unavailable Unavailable JR DWI [place] Unavailable Unavailable INTERNAL MED, [facility] JAMES CON, JAMES [...] PHARM #[id number] [facility] Unavailable [facility]available [id number] # [id number], [facility] [id number] # [id number] SHANELL, SHANELL Unavailable Unavailable SHANELL [...] PALMA OTTO SUSAN, OTTO Unavailable Unavailable SUSAN [facility], Unavailable Unavailable [facility] Unavailable [facility], [facility] HIEU GAMEZ, HIEU Unavailable Unavailable [facility], Unavailable [facility], Unavailable Unavailable [facility] JEANEGALLITOJERO MAR, Unavailable Unavailable JONAHGUROVSKAYA MAR Purpose Continuity of Care Document - 04-25-2007 through 2016 Problems Code Diagnosis DOS Provider Status 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 [place] [facility] UNSPECIFIED GROUP I119 HYPERTENSIV 10-04-2016 [facility] E HEART PHYSICIANS DISEASE GROUP WITHOUT HEART FAILURE I2510 [facility] [place] 10-04-2016 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 OBSTRUCTIVE PHYSICIANS PULMONARY GROUP DISEASE UNS R0600 DYSPNEA 10-04-2016 [facility] UNSPECIFIED PHYSICIANS GROUP R0602 SHORTNESS 09-14-2016 [place] OF [facility]ATH [facility] R918 OTHER 09-14-2016 [place] NONSPECIFIC MEDICAL ABNORMAL IMAGING ASS FINDING OF LUNG FIELD R938 ABNORMAL 09-14-2016 [facility] FIND ON DX [facility] IMAGING OTH INC SPEC BODY STRCT R9431 ABNORMAL 09-14-2016 [facility] ELECTROCARD [facility] IOGRAM INC J410 SIMPLE 09-04-2016 A Kristy GARLAND MD PSC BRONCHITIS I4891 UNSPECIFIED 09-02-2016 [facility]IAL HOME FIBRILLATIO MEDICAL N EQUIPME I200 UNSTABLE 08-27-2016 [facility] ANGINA PHYSICIANS GROUP I10 ESSENTIAL 08-25-2016 [facility] P N P95827 [facility] [place] 08-25-2016 [facility] P ANGINA PECTORIS I272 OTHER 08-25-2016 [facility] P HYPERTENSIO N R079 CHEST PAIN 08-25-2016 [place] UNSPECIFIED MEDICAL IMAGING ASS I482 CHRONIC 06-14-2016 Darnell CARR MD [facility] FIBRILLATIO N J9610 CHRONIC 06-14-2016 Darnell QUEZADA RESPIRATORY [facility] FAIL UNS HYPOXIA/HYP ERCAPNIA R296 REPEATED 06-14-2016 Darnell KHAN MD PSC J441 CHRONIC 05-25-2016 Darnell ANN MD [facility] PULMONARY DZ W/EXACERBAT ION B957 OTH 05-14-2016 [facility] STAPHYLOCOC [facility] CUSS CAUSE INC OF DZ CLASSIFIED ELSW J209 ACUTE 05-14-2016 [facility] BRONCHITIS [facility] UNSPECIFIED INC J440 COPD WITH 05-14-2016 [facility] ACUTE LOWER [facility] INC RESPIRATORY INFECTION 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 UNSPECIFIED PHYSICIANS GROUP K828 OTHER 01-02-2016 [place] SPECIFIED MEDICAL DISEASES OF IMAGING ASS GALLBLADDER R630 ANOREXIA 01-02-2016 [facility] K921 MELENA 11-07-2015 [facility] K5710 DIVERTICULO 11-03-2015 [place] SIS SM MEDICAL INTEST W/O IMAGING ASS PERF/ABSC W/O BLEED R195 OTHER FECAL 11-03-2015 [place] MEDICAL ABNORMALITI IMAGING ASS ES C15085 LYMPHOCYTOS 10-26-2015 [facility] IS PATHOLOGY SYMPTOMATIC LAB NETW J690 PNEUMONITIS 10-26-2015 [facility] DUE TO SERV INHALATION [facility] OF FOOD AND VOMIT Z09 ENC F/U 10-20-2015 A Kristy QUEZADA EXAM AFTR PSC CMPL TX OTH THAN MALIG NEOPLSM B370 CANDIDAL 10-19-2015 [facility] STOMATITIS SERV FOUNDATION R112 NAUSEA WITH 10-19-2015 [facility] VOMITING SERV UNSPECIFIED FOUNDATION I509 HEART 10-15-2015 [facility] FAILURE HOME UNSPECIFIED MEDICAL EQUIPME R531 WEAKNESS 09-20-2015 [facility] 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 [facility] R BLOCK SERV FOUNDATION I4510 UNSPECIFIED 09-15-2015 [facility] RIGHT SERV BUNDLE-BRAN FOUNDATION CH BLOCK R001 BRADYCARDIA 09-15-2015 [facility] SERV UNSPECIFIED FOUNDATION B965 PSEUDOMONAS 09-14-2015 [facility] CAUSE OF SERV DZ FOUNDATION CLASSIFIED ELSEWHERE J9600 ACUTE 09-14-2015 [facility] RESPIRATORY SERV FAIL UNS FOUNDATION HYPOXIA/HYP ERCAPNIA J9811 ATELECTASIS 09-14-2015 [facility] R95213 ENCOUNTER 09-14-2015 [facility] SURG SERV AFTERCARE F[facility] FLW SURG DIGESTIVE SYS Z049 ENCOUNTER 09-13-2015 [facility] EXAMINATION SERV &OBSERVATIO FOUNDATION N FOR UNS REASON K5900 CONSTIPATIO 09-12-2015 [facility] N SERV UNSPECIFIED FOUNDATION R140 ABDOMINAL 09-10-2015 [facility] DISTENSION SERV GASEOUS FOUNDATION R0989 OTH SPEC SX 09-09-2015 [facility] & SIGNS SERV INVLV THE FOUNDATION CIRC & RESP SYS A419 SEPSIS 09-08-2015 [facility] UNSPECIFIED SERV ORGANISM FOUNDATION E873 ALKALOSIS 09-08-2015 [facility] E876 HYPOKALEMIA 09-08-2015 [facility] J90 PLEURAL 09-08-2015 [facility] EFFUSION SERV NOT FOUNDATION ELSEWHERE CLASSIFIED J9620 ACUTE 09-08-2015 [facility] CHRONIC SERV RESP FAIL FOUNDATION UNS HYPOXIA/HYP ERCAPNIA J984 OTHER 09-08-2015 [facility] DISORDERS SERV OF LUNG FOUNDATION R109 UNSPECIFIED 09-08-2015 [facility] ABDOMINAL SERV PAIN FOUNDATION Z4682 ENCOUNTER 09-08-2015 [facility] NON-VASCULA R CATHETER 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-07-2015 [facility] DISORDER SERV UNSPECIFIED FOUNDATION I517 CARDIOMEGAL 09-07-2015 [facility] Y SERV FOUNDATION I5189 OTHER 09-07-2015 [facility] ILL-DEFINED SERV HEART FOUNDATION DISEASES R0902 HYPOXEMIA 09-06-2015 [facility] R0689 OTHER 09-02-2015 [facility] ABNORMALITI SERV ES OF FOUNDATION BREATHING J942 HEMOTHORAX 08-30-2015 [facility] J948 OTHER 08-30-2015 [facility] SPECIFIED SERV PLEURAL FOUNDATION CONDITIONS L538 OTHER 08-30-2015 [facility] SPECIFIED SERV ERYTHEMATOU FOUNDATION S CONDITIONS Z9889 OTHER 08-30-2015 [facility] SPECIFIED SERV POSTPROCEDU FOUNDATION RAL STATES 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 K4030 UNILAT 08-25-2015 [place] INGUINAL [facility] NGUYEN W/OBST HOSPI W/O GANGRN NOT RECUR K4040 UNILAT 08-25-2015 [facility] INGUINAL SERV NGUYEN FOUNDATION W/GANGREN NOT SPEC RECUR Z7901 DIGITAL FORENSIC ANALYST 08-25-2015 [facility] CURRENT USE SERV OF FOUNDATION ANTICOAGULA NTS S38756 ELEVATED 08-24-2015 [facility] BLOOD [facility] P UNSPECIFIED K4090 UNILAT 08-24-2015 [facility] INGUINAL SERV NGUYEN W/O FOUNDATION OBST/GANGRE N NOT RECUR K5660 UNSPECIFIED 08-24-2015 [facility] SERVICE OBSTRUCTION R1031 RIGHT LOWER 08-24-2015 [facility] PAIN HOSPI 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 PERSONAL 08-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 [facility] 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 J189 PNEUMONIA 08-03-2015 [place] UNSPECIFIED MEDICAL ORGANISM IMAGING ASS J439 EMPHYSEMA 08-03-2015 [place] UNSPECIFIED [place] INTERNAL MED J929 PLEURAL 08-03-2015 [place] PLAQUE MEDICAL WITHOUT IMAGING ASS ASBESTOS R002 PALPITATION 08-03-2015 [facility] S SERV FOUNDATION R031 NONSPECIFIC 08-03-2015 [facility] LOW SERV BLOOD-PRESS FOUNDATION URE READING R42 DIZZINESS 08-03-2015 [facility] AND SERV GIDDINESS FOUNDATION 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 MED J42 UNSPECIFIED 07-13-2015 [place] CHRONIC MEDICAL BRONCHITIS IMAGING ASS Z7722 CONTACT W/ 07-13-2015 [facility] & SUSPECTED SERV EXPOS FOUNDATION ENVIR TOBACCO SMOKE J40 BRONCHITIS 03-25-2015 [place] NOT MEDICAL SPECIFIED IMAGING ASS ACUTE OR CHRONIC R091 PLEURISY 01-21-2015 [facility] [place] [facility] 4280 CONGESTIVE 01-14-2015 [facility] HEART HOME FAILURE MEDICAL UNSPECIFIED EQUIPME 82369 OBSTRUCTIVE 01-14-2015 [facility] WITHOUT EXACERBAT 496 CHRONIC 01-14-[address] [facility] [address] HOME OBSTRUCTION MEDICAL NEC EQUIPME 54917 NUCLEAR 12-28-2014 [facility] SCLEROSIS JAMILAH 49205 OBST 09-06-2014 A Kristy QUEZADA CHRONIC PSC BRONCHITIS W/ACUTE BRONCHITIS 56775 LOSS OF 09-06-2014 A Kristy QUEZADA WEIGHT PSC 93441 OTHER CHEST 09-06-2014 A Kristy QUEZADA PAIN PSC 43603 OBSTRUCTIVE 09-05-2014 [facility] SLEEP HOME APNEA MEDICAL EQUIPME 7242 LUMBAGO 04-01-2014 A Kristy QUEZADA MD PSC V0382 NEED PROPH 04-01-2014 A Kristy QUEZADA VACCINATION PSC AGAINST STREP PNEUMONE 72457 ATRIAL 01-13-2014 [facility] FIBRILLATIO [facility] N INC 15557 REFLUX 01-13-2014 [facility] ESOPHAGITIS [facility] INC 83013 UNS 01-13-2014 [facility] GASTRITIS&G [facility] ASTRODUODIT INC IS W/O MENTION HEMORR 73401 ABDOMINAL 01-13-2014 [facility] PAIN, [facility] GENERALIZED INC V5869 LONG-TERM 01-13-2014 [facility] (CURRENT) [facility] USE OF INC OTHER MEDICATIONS 95849 CHEST PAIN 11-24-2013 [facility] UNSPECIFIED [facility] INC 5110 PLEURISY 10-29-2013 [place] WITHOUT MEDICAL MENTION IMAGING ASS EFFUS/CURRE NT TB 7862 COUGH 10-29-2013 [facility] [place] [facility] 74277 INSOMNIA 12-16-2012 A Kristy QUEZADA UNSPECIFIED PSC 51767 OTHER 12-16-2012 A Kristy QUEZADA MALAISE AND PSC FATIGUE 88667 FEVER 05-23-2012 [place] UNSPECIFIED DON 20487 WHEEZING 05-23-2012 JAMES DON 1120 CANDIDIASIS 05-21-2012 AJMES OF MOUTH DON 14485 OTHER 05-21-2012 FRANCESCA DISEASES OF EMY LUNG NOT ELSEWHERE CLASSIFIED 4940 BRONCHIECTA 01-28-2012 [place] SIS WITHOUT MEDICAL ACUTE IMAGING ASS EXACERBATIO N 5119 UNSPECIFIED 01-28-2012 [place] PLEURAL MEDICAL EFFUSION IMAGING ASS 28514 OTHER 01-28-2012 [facility] NONSPECIFIC [facility] ABNORMAL INC FINDING OF LUNG FIELD 07280 OSTEOARTHRO 01-02-2012 JAMES S INVLV MX DON [place]IT[place] [address] OBSTRUCTIVE 11-12-2011 [facility] CHRONIC [facility] BRONCHITIS INC WITH EXACERBATIO N 24331 ESOPHAGEAL 11-12-2011 [facility] REFLUX [facility] INC 2859 UNSPECIFIED 10-05-2011 [facility] ANEMIA [facility] INC 5180 PULMONARY 10-05-2011 [place] COLLAPSE MEDICAL IMAGING ASS 486 PNEUMONIA, 09-28-2011 [place] ORGANISM MEDICAL UNSPECIFIED IMAGING ASS 5070 PNEUMONITIS 09-28-2011 [place] DUE TO JAM INHALATION OF FOOD OR VOMITUS 95554 SHORTNESS 09-28-2011 [facility] OF BREATH [facility] INC 02554 ABDOMINAL 09-28-2011 [facility] PAIN, MEM [facility] EPIGASTRIC INC V1261 PERSONAL 09-28-2011 [place] HISTORY JAM PNEUMONIA RECURRENT 75564 PNEUMONIA 06-08-2011 [facility] DUE TO DON OTHER SPECIFIED BACTERIA 2724 OTHER AND 05-11-2011 [facility] UNSPECIFIED PHYSICIANS [place] HYPERLIPIDE [place] 2768 HYPOPOTASSE 05-11-2011 [facility]ED [place] PHYSICIANS [place] 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 4149 UNSPECIFIED 05-11-2011 [facility] CHRONIC DON ISCHEMIC HEART DISEASE 6019 UNSPECIFIED 05-11-2011 [place] [address] PAIN IN 05-11-2011 COMBINED JOINT, PHYSICIANS MULTIPLE LA SITES 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 5183 PULMONARY 11-28-2009 [facility] A 85984 ACUTE 11-28-2009 [facility] RESPIRATORY SERV FAILURE FOUNDATIO 7856 ENLARGEMENT 11-28-2009 [facility] NODES 7931 NONSPEC 11-28-2009 [facility] MEDICAL FIND RAD SERV OTH EXAM FOUNDATIO BODY STRUCT LUNG FIELD V1582 PERS HX 11-28-2009 [place] TOBACCO USE [facility] PRESENTING [facility] V7282 PRE-OPERATI 11-28-2009 [facility]ICAL VE SERV RESPIRATORY FOUNDATIO EXAMINATION 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 07432 DYSPHAGIA 11-18-2009 [place] UNSPECIFIED MEDICAL IMAGING ASS 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, 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 81144 OSTEOARTHRO 08-23-2009 ERIKA, SIS UNSPEC DON R WHETHER GEN/LOC LOWER LEG 26835 OSTEOARTHRO 08-23-2009 ERIKA, S UNSPEC DON R GEN/LOC OTH SPEC SITES 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 A N OF RETINA UNSPECIFIED 61108 NONEXUDATIV 07-20-2008 [facility] & 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 32622 EXUDATIVE 07-20-2008 [facility] & SENILE [facility]ITREOUS MAC[facility] ASSOC[facility] DEGENERAMANDIO O N OF RETINA 99880 CRYSTALLINE 07-20-2008 [place] & DEPOSITS VITREOUS IN VITREOUS ASSOCIATES O 4610 ACUTE 02-27-2008 JAMES, MAXILLARY DON R SINUSITIS 4659 ACUTE URIS 02-27-2008 ERIKA, OF DON R UNSPECIFIED SITE 8472 LUMBAR 11-14-2007 JAMES, SPRAIN AND DON R STRAIN 4660 ACUTE 08-02-2007 JAMES, BRONCHITIS DON R 4871 INFLUENZA 07-04-2007 ERIKA, WITH OTHER DON R RESPIRATORY MANIFESTATI ONS 23947 PAIN IN 04-25-2007 JAMES, JOINT, DON R SHOULDER REGION 66747 UNSPECIFIED 04-25-2007 JAMES, SYNOVITIS DON R AND [...] ET 03 93 8 # 03 93 OR 00 04 04 00 12 6 RI [...] TO 2.5 7 PHARMACY PHARMACY MG & [employer] IPRATROPI UM BROM TO 0.5 MG ADMN SET A7003 YOUR YOUR SM VOL 7 PHARMACY PHARMACY [employer] [facility] PNEUMAT NEBULIZR DISPBL ECG [address] [facility] ROUTINE 7 PHYSICIAN ECG S GROUP W/LEAST 12 LDS [place] [address] [facility] AYALA UREA 7 [facility] NITROGEN INC INC QUANTITAT ARCENIO CT THORAX 61110 [facility] 7 MEDICAL W/CONTRAS IMAGING T ASS MATERIAL CREATININ 89218 LUC[facility] AYALA E BLOOD 7 [facility] INC INC ALBUTEROL J7620 YOUR YOUR TO 2.5 7 PHARMACY PHARMACY [employer] IPRATROPI UM BROM TO 0.5 MG ADMN SET A7003 YOUR YOUR SM VOL 7 PHARMACY PHARMACY [facility] PNEUMAT NEBULIZR DISPBL ALBUTEROL J7620 A C A C TO 2.5 7 PILAR QUEZADA MD MG & PSC PSC IPRATROPI UM BROM TO 0.[address] [facility] ROUTINE 7 PHYSICIAN ECG S GROUP W/LEAST 12 LDS I&R ONLY O2 CONC 1 E1390 [facility] 7 HOME HOME 85%/>02 MEDICAL MEDICAL [facility] FLW RATE R & L HRT 37946 [facility] CATH 7 PHYSICIAN WINJX HRT S GROUP ART& L VENTR IMG RADIOLOGI 19038 [facility] 7 MEDICAL EXAMINATI IMAGING ON CHEST ASS SINGLE VIEW FRONTAL ECG 33780 L[facility] ELIZABETH JR ROUTINE 7 [facility] W/LEAST P 12 LDS I&R ONLY ALBUTEROL J7620 YOUR YOUR TO 2.5 7 PHARMACY PHARMACY [employer] IPRATROPI UM BROM TO 0.5 MG ADMN SET A7003 YOUR YOUR SM VOL 7 PHARMACY PHARMACY [employer] PNEUMAT NEBULIZR DISPBL O2 CONC 1 E1390 [facility] 7 HOME HOME 85%/>02 MEDICAL MEDICAL CONC AT EQUIPME EQUIPME PRSC FLW RATE O2 CONC 1 E1390 [facility] [place] 7 HOME HOME 85%/>02 MEDICAL MEDICAL CONC AT EQUIPME EQUIPME PRSC FLW RATE SBSQ 21736 [facility] 7 MEDICAL CARE/DAY SERV 25 FOUNDATIO MINUTES N RADIOLOGI 89390 [facility] C EXAM 7 MEDICAL MEDICAL [...] YOUR SM VOL 6 PHARMACY PHARMACY NONFILTR [employer] PNEUMAT NEBULIZR DISPBL O2 CONC 1 [...] [place] [address] [place] FONTANEZ ALL ABDOMEN 6 MEDICAL W/CONTRAS IMAGING T ASS MATERIAL COLLECTIO 74845 [facility] AYALA N VENOUS 6 [facility] BLOOD INC INC VENIPUNCT URE COMPREHEN 67476 [facility] A[facility]ALA SIVE 6 [facility] METABOLIC INC INC PANEL LOCM Q9967 [facility] AYALA 300-399 6 [facility] MG/ML INC INC IODINE CONCENTRA TION PER ML BLOOD 14713 [facility] AYALA COUNT 6 [facility] COMPLETE INC INC AUTO&AUTO DIFRNTL WBC ANES 84174 [facility] UPPER GI 6 ANESTH PALMA ENDOSCOPY OF THE PROXIMAL BLUE TO DUODENUM O2 CONC 1 E1390 [facility] [place] 6 HOME HOME 85%/>02 MEDICAL MEDICAL CONC AT [facility] FLW RATE RADEX 79859 L[facility] AYALA UPPER GI 6 MEM HOSP [facility]OS[facility] W/WO INC INC GLUCAGON/ DELAY IMAGES W/KUB O2 CONC 1 E1390 [facility] PENA [place] 6 HOME MAR 85%/>02 MEDICAL CONC AT [facility] FLW RATE RADEX 75588 TEX FONTANEZ ALL UPPER GI 6 MEDICAL W/WO IMAGING GLUCAGON/ ASS DELAY IMGES W/O KUB COLLECTIO 39147 [facility] AYALA N VENOUS 6 [facility] BLOOD INC INC VENIPUNCT URE FLOW 86218 LUCY AYALA CYTOMETRY 6 [facility] CELL INC INC SURF MARKER TECHL ONLY EA FLOW 32328 LUCY AYALA CYTOMETRY 6 [facility] CELL INC INC SURF MARKER TECHL ONLY 1ST FLOW 92076 MOLECULAR MOLECULAR CYTOMETRY 6 [facility] [place] PATHOLOGY PATHOLOGY 2-8 LAB NETW LAB NETW MARKERS NEBULIZER E0570 [facility] LEVY WITH 6 HOME HOME COMPRESSO MEDICAL MEDICAL [facility] O2 CONC 1 E1390 [facility] D[place] 6 HOME KEY 85%/>02 MEDICAL CONC AT [facility] FLW RATE SEAT E0156 [facility] ATTACHMEN 6 T WALKER [place]ER E0143 [facility] FOLDING 6 WHEELED ADJUSTABL E/FIXED HEIGHT ECG 97977 [place] SAGE CHI ROUTINE 6 MEDICAL ECG SERV W/LEAST FOUNDATIO 12 LDS N I&R ONLY ECG 55022 [place] PELAEZ ROUTINE 6 MEDICAL NAN ECG SERV W/LEAST FOUNDATIO 12 LDS N I&R ONLY RADIOLOGI 97029 [place] JAMES CON C 6 MEDICAL EXAMINATI SERV ON CHEST FOUNDATIO SINGLE N VIEW FRONTAL SBSQ 17483 [facility] 6 MEDICAL KEYANA CARE/DAY SERV 25 FOUNDATIO MINUTES N RADIOLOGI 99832 [place] WILLIEK C 6 MEDICAL AYA MAR EXAMINATI SERV ON CHEST FOUNDATIO SINGLE N VIEW FRONTAL SBSQ 26886 [facility] 6 MEDICAL KEYANA CARE/DAY SERV 15 FOUNDATIO MINUTES N SBSQ 05445 [facility] 6 MEDICAL KEYANA CARE/DAY SERV 15 FOUNDATIO MINUTES N RADIOLOGI 34012 [place] [facility] C 6 MEDICAL EXAMINATI SERV ON CHEST FOUNDATIO SINGLE N VIEW FRONTAL SBSQ 60868 [facility] 6 MEDICAL CARE/DAY SERV 25 FOUNDATIO MINUTES N RADIOLOGI 75150 [place] MAHMOOD LEATHA C 6 MEDICAL EXAMINATI SERV ON CHEST FOUNDATIO SINGLE N VIEW FRONTAL RADIOLOGI 45515 [place] [facility] C 6 MEDICAL EXAMINATI SERV ON CHEST FOUNDATIO SINGLE N VIEW FRONTAL SBSQ 71024 [facility] 6 MEDICAL CARE/DAY SERV 25 FOUNDATIO MINUTES N ECG 77874 [facility] ROUTINE 6 MEDICAL ECG SERV W/LEAST FOUNDATIO 12 LDS N I&R ONLY RADEX 18796 [place] OTT[facility] ABDOMEN 1 6 MEDICAL SUSAN SERV ANTEROPOS FOUNDATIO TERIOR N VIEW ECG 95492 [facility] ROUTINE 6 MEDICAL ECG SERV W/LEAST FOUNDATIO 12 LDS N I&R ONLY RADIOLOGI 51747 [place] MAHMOOD LEATHA C 6 MEDICAL EXAMINATI SERV ON CHEST FOUNDATIO SINGLE N VIEW FRONTAL RADEX 08769 [facility] ABDOMEN 1 6 Y OF CAR [place] [facility]TER[facility] HOS[facility] TERIOR VIEW CRITICAL 95008 [facility] CARE 6 MEDICAL ILL/INJUR SERV ED FOUNDATIO PATIENT N INIT 30-74 MIN RADEX 01466 [facility] SHANELL ABDOMEN 1 6 Y [facility] AN[facility]OPOS HOSPI TERIOR VIEW RADIOLOGI 30330 [place] WILLIEK C 6 MEDICAL AYA MAR EXAMINATI SERV ON CHEST FOUNDATIO SINGLE N VIEW FRONTAL SBSQ 19959 [place] [facility] 6 MEDICAL CARE/DAY SERV [address] THORAX 96868 [place] JAMES CON 6 MEDICAL W/[place] [address] [place] REYEZ CLEO ABDOMEN & 6 MEDICAL PELVIS SERV W/CONTRAS FOUNDATIO T N MATERIAL RADIOLOGI 26176 [place] JAMES CON C 6 MEDICAL EXAMINATI SERV ON CHEST FOUNDATIO SINGLE N VIEW FRONTAL RADEX ABD 64394 [place] PAUL[facility] COMPL 6 MEDICAL JURGEN AQT ABD SERV ANNEL W/S/E/D FOUNDATIO VIEWS 1 N VIEW CH SBSQ 04367 [facility] 6 MEDICAL AND CARE/DAY SERV 25 FOUNDATIO MINUTES N INITIAL [address]17 [place] [address] MEDICAL SUN KAYDOE CARE/DAY SERV 30 FOUNDATIO MINUTES N ECG 28561 [facility] ROUTINE 6 MEDICAL ECG SERV W/LEAST FOUNDATIO 12 LDS N I&R ONLY ECHO 82337 [facility] R-T 6 MEDICAL ERIKA 2D SERV W/WOM-MOD FOUNDATIO E COMPL N SPEC&COLR D SBSQ 13198 [facility] 6 MEDICAL AND CARE/DAY SERV 25 FOUNDATIO MINUTES N RADIOLOGI 85198 [place] CON C 6 MEDICAL EXAMINATI SERV ON CHEST FOUNDATIO SINGLE N VIEW FRONTAL ECG 04018 [facility] ROUTINE 6 MEDICAL ECG SERV W/LEAST FOUNDATIO 12 LDS N I&R ONLY RADIOLOGI 02961 [place] CON C 6 MEDICAL EXAMINATI SERV ON CHEST FOUNDATIO SINGLE N VIEW FRONTAL RADEX 27768 UNIVERSIT SHANELL ABDOMEN 1 6 Y OF [facility] ANTEROPOS HOSPI TERIOR VIEW RADIOLOGI 37964 [place] WILLIEK C 6 MEDICAL AYA MAR EXAMINATI SERV ON CHEST FOUNDATIO SINGLE N VIEW FRONTAL RADIOLOGI 75739 [place] ROBBINS C 6 MEDICAL JESS EXAMINATI SERV ON CHEST FOUNDATIO SINGLE N VIEW FRONTAL RADEX 57578 [place] ZAGUROVSK ABDOMEN 1 6 MEDICAL AYA MAR SERV ANTEROPOS FOUNDATIO TERIOR N VIEW [place] THORAX [address] [place] ARMENDARIZ JENNA 6 MEDICAL W/CONTRAS SERV T FOUNDATIO MATERIAL N RADEX 77093 UNIVERSIT SHANELL ABDOMEN 1 6 Y OF [place] [facility] TERIOR VIEW RADIOLOGI 34977 [place] ZAGUROVSK C 6 MEDICAL AYA MAR EXAMINATI SERV ON [place] [address] [place] AYOOB AND ABDOMEN & 6 MEDICAL PELVIS SERV W/CONTRAS FOUNDATIO T N MATERIAL RADEX 45462 UNIVERSIT SHANELL ABDOMEN 1 6 Y OF [place] [facility] TERIOR VIEW SBSQ 28652 [facility] 6 MEDICAL AND CARE/DAY SERV 25 FOUNDATIO MINUTES N SBSQ 64357 [facility] 6 MEDICAL AND CARE/DAY SERV 25 FOUNDATIO MINUTES N RADIOLOGI 11110 [place] DELL CAR C 6 MEDICAL EXAMINATI SERV ON CHEST FOUNDATIO SINGLE N VIEW FRONTAL ECG 83235 [place] HUI MIKHAIL ROUTINE 6 MEDICAL ECG SERV W/LEAST FOUNDATIO 12 LDS N I&R ONLY RADIOLOGI 11497 [place] CON C 6 MEDICAL EXAMINATI SERV ON CHEST FOUNDATIO SINGLE N VIEW FRONTAL ANESTHESI 29295 [facility] Y OF [facility] ABDOMEN NOS ECG 08818 [place] MIKHAIL ROUTINE 6 MEDICAL ECG SERV W/LEAST FOUNDATIO 12 LDS N I&R ONLY SBSQ 66871 [facility] 6 MEDICAL RONNY CARE/DAY SERV 25 FOUNDATIO MINUTES N RPR 1ST 18834 [facility] 6 MEDICAL RONNY HRNA AGE SERV 5 YRS/> [place] [address] [place] 6 MEDICAL FRANCO PATHOLOGY SERV FOUNDATIO GROSS&JESS N ROSCOPIC EXAM LEVEL III 22143 [place] SUR[place] 6 MEDICAL FRANCO PATHOLOGY SERV FOUNDATIO GROSS&JESS N ROSCOPIC EXAM ARTL 96273 [facility] CATH/CAN 7 Y OF Y OF [facility] SFUSION SPX PRQ INITIAL [address] [place] [address] [facility] CARE/DAY SERV [place] [address] LUCY A[facility]A [facility]FUSION 6 [facility] THERAPY/P INC INC ROPHYLAXI S /DX 1ST TO 1 [place] [address] LUC[facility] A[facility] TROPONIN 6 [facility] QUANTITAT INC INC ARCENIO BLOOD 19581 L[facility] COUNT 6 [facility] COMPLETE INC INC AUTO&AUTO DIFRNTL WBC INJECTION J2405 [facility] 6 [facility] ONDANSETR INC INC ON HCL PER 1 MG INJ J2543 L[facility] PIPERACIL 6 [facility] YONATHAN INC INC SOD/TAZOB ACTAM SOD 1 G/0.125 G COMPREHEN 40100 [facility] SIVE 6 [facility] [place] [address] LUC[facility] A[facility]AL[facility] AMYLASE 6 [facility] INC INC CREATINE 16997 LUCY AYALA KINASE MB 6 [facility] FRACTION INC INC ONLY GROUND A0425 [facility] MILEAGE 6 AMBULANCE AMBULANCE PER SERVICE SERVICE STATUTE MILE AMBULANCE A0429 [facility] SERVICE 6 AMBULANCE AMBULANCE BLS SERVICE SERVICE EMERGENCY TRANSPORT ECG 93620 LUCY BEVERLY ROUTINE 6 [facility] W/LEAST P 12 LDS [place] [address] LUCY AYALA LIPASE 6 [place] [address] LUCY AYALA ABDOMEN & 6 [facility] PELVIS INC INC W/O CONTRAST MATERIAL ECG 41515 LUC[facility] A[facility]ALA ROUTINE 6 [facility] ECG INC INC W/LEAST 12 LDS TRCG ONLY W/O I&R CREATINE 85685 [facility] KINASE 6 [facility] TOTAL INC INC RADIOLOGI 90672 L[facility] C 6 [facility] EXAMINATI INC INC ON CHEST SINGLE VIEW FRONTAL THER 46493 LUC[facility] A[facility]ALA PROPH/DX 6 [facility] NJX EA INC INC SEQL IV PUSH SBST/DRUG FAC BLOOD 94701 Darnell Wagner KIRILL JENNA COUNT 6 [facility] COMPLETE PSC AUTO&AUTO DIFRNTL WBC COLLECTIO 75169 Darnell Wagner KIRILL JENNA N VENOUS 6 PILAR PLEITEZ BLOOD PSC VENIPUNCT URE NEBULIZER E0570 [facility] WITH 6 HOME HOME COMPRESSO MEDICAL MEDICAL R EQUIPME EQUIPME ECG 18447 LUCY BEVERLY ROUTINE 6 [facility] W/LEAST P 12 LDS I&R ONLY INITIAL 74499 [facility] 6 [facility]/DAY INTERNAL 70 MED MINUTES RADIOLOGI 19280 [place] FRANC[facility] C 6 MEDICAL EXAMINATI IMAGING ON CHEST ASS SINGLE VIEW FRONTAL NEBULIZER E0570 MIL[place] [place]EVY WITH 6 HOME HOME COMPRESSO MEDICAL MEDICAL R EQUIPME EQUIPME COMPREHEN 48979 LUC[facility] A[facility]ALA SIVE 6 [facility] METABOLIC INC INC PANEL COLLECTIO 95414 LUCY AYALA N VENOUS 6 [facility] BLOOD INC INC VENIPUNCT URE RADIOLOGI 26573 LUCY AYALA C EXAM 6 [facility] CHEST 2 INC INC VIEWS FRONTAL&L ATERAL BLOOD 96409 L[facility] A[facility]ALA COUNT 6 [facility] COMPLETE INC INC AUTO&AUTO DIFRNTL WBC RADIOLOGI 29027 [place] FONTANEZ C 6 MEDICAL EXAMINATI IMAGING ON CHEST ASS SINGLE VIEW FRONTAL ALBUTEROL J7620 YOUR YOUR TO 2.5 6 PHARMACY PHARMACY [facility] [employer] [facility] IPRATROPI UM BROM TO 0.5 MG ADMN SET A7003 YOUR YOUR SM VOL 6 PHARMACY PHARMACY NONFILTR [facility] PNEUMAT NEBULIZR DISPBL PHRM Q0513 YOUR YOUR DISPENSIN 6 PHARMACY PHARMACY G FEE [employer] [employer] INHALATIO N RX; PER 30 DAYS [...] IPRATROPI UM BROM TO 0.5 MG RADIOLOGI 92857 LUC[facility] AYALA C EXAM 5 [facility] CHEST 2 INC INC VIEWS FRONTAL&L ATERAL CT THORAX 75658 [facility] 5 [facility] W/CONTRAS INC INC T MATERIAL RADIOLOGI 18682 [facility] C EXAM 5 MEDICAL CHEST 2 IMAGING VIEWS ASS FRONTAL&L ATERAL NEBULIZER E0570 [facility] [place]Y WITH 5 HOME HOME COMPRESSO MEDICAL MEDICAL R EQUIPME EQUIPME ALBUTEROL J7620 YOUR YOUR TO 2.5 5 PHARMACY PHARMACY MG & [employer] IPRATROPI UM BROM TO 0.5 MG PHARM G0333 YOUR YOUR DISPEN 5 PHARMACY PHARMACY FEE [employer] [facility] RX; INITIAL 30-DAY SUPPLY CATARACT 05687 [facility] REMOVAL 5 JAMILAH JAMILAH INSERTION [...] EQUIPME EQUIPME ARWAY PRESS DEVICE EA POLYSOM 09303 [place] PAVEZ MAR 6/>YRS 4 SLEEP 4/> NEUROSCIE ADDL NCES CENT AMA ATTND POLYSOM 24333 LUCY AYALA 6/>YRS 4 [facility] SLEEP 4/> [place] [address] LUCY LUCY SURG 4 [facility] PATHOLOGY INC INC GROSS&[place] [address] L[facility] A[facility] INFUSION 4 [facility] THERAPY INC INC PROPHYLAX [place] SPCL STN 28004 LUCY AYALA 2 I&R 4 [facility] EXCPT INC INC MICROORG/ ENZYME/IM CYT SPECIAL 46991 LUC[facility] A[facility]ALA STAIN 4 [facility] GROUP 1 INC INC MICROORGA NISMS I&R IMC/IMC G0461 [facility] PER 4 [facility] SPECIMEN; INC INC 1ST SNGL/[place] [address] L[facility] INFUSION 4 [facility] THERAPY/P INC INC ROPHYLAXI S /DX 1ST TO 1 HR SPMTRY 19907 L[facility] W/VC 4 [facility] EXPIRATOR INC INC Y ALFREDO W/WO MXML VOL VNTJ ECHO 15713 LUCY AYALA TTHRC R-T 4 [facility] 2D INC INC W/WOM-MOD E COMPL SPEC&COLR D CV STRS 45518 GLENN ELIZABETH JR TST 4 DWI DWI XERS&/OR RX CONT ECG I&R ONLY MYOCARDIA 62305 TEX Parra 4 MEDICAL EMY PERFUSION IMAGING PLANAR ASS MULTIPLE STUDIES MYOCARDIA 42163 LUC[facility] AYALA L SPECT 4 [facility] MULTIPLE INC INC STUDIES CV STRS 95241 KEITH MORENO TST 4 XERS&/OR RX CONT ECG W/O I&R RADIOLOGI 34057 TEX Wagner EXAM 4 MEDICAL EMY CHEST 2 IMAGING VIEWS ASS FRONTAL&L ATERAL PRTBLE E0431 MILDRED LEVY GASEOUS 3 HOME HOME O2 SYS MEDICAL MEDICAL RENT; EQUIPME EQUIPME FLWMTR HUMIDFR&M ASK PRTBLE E0431 MILDRED IMLDRED GASEOUS 3 HOME HOME O2 SYS MEDICAL [...] SONE ACETATE & PHOSPHATE 3 MG RADIOLOGI 16131 [facility] C EXAM 3 EMY EMY CHEST 2 [...] EQUIPME EQUIPME FLWMTR HUMIDFR&M ASK CT THORAX 61542 [place] W/O 2 MEDICAL EMY CONTRAST IMAGING MATERIAL ASS 3D 20782 [place] RENDERING 2 MEDICAL EMY IMAGING W/INTERP& ASS POSTPROC DIFF WORK STATION PRTBLE E0431 MILDRED MILDRED GASEOUS 2 HOME HOME O2 SYS MEDICAL MEDICAL RENT; EQUIPME EQUIPME FLWMTR HUMIDFR&M ASK TOBACCO 58519 JAMES JAMES USE 2 DON DON CESSATION INTERMEDI ATE 3-10 MINUTES PRTBLE E0431 MILDRED MILDRED GASEOUS 2 HOME HOME O2 SYS MEDICAL MEDICAL RENT; EQUIPME EQUIPME FLWMTR HUMIDFR&M ASK PRTBLE E0431 MILDRED MILDRED GASEOUS 2 HOME HOME O2 SYS MEDICAL MEDICAL RENT; EQUIPME EQUIPME FLWMTR HUMIDFR&M ASK SPMTRY 05179 LUCY AYALA W/VC 2 [facility] EXPIRATOR INC INC Y ALFREDO W/WO MXML VOL VNTJ RADIOLOGI 65364 [place] [facility] C EXAM 2 MEDICAL EMY CHEST 2 IMAGING VIEWS ASS FRONTAL&L ATERAL PRTBLE E0431 MILDRED BARBERRELL GASEOUS 2 HOME HOME O2 SYS MEDICAL MEDICAL RENT; EQUIPME EQUIPME FLWMTR HUMIDFR&M ASK RADIOLOGI 54036 [place] C EXAM 2 MEDICAL EMY CHEST 2 IMAGING VIEWS ASS FRONTAL&L ATERAL SMR PRIM 02933 LUCY AYALA SRC 2 [facility] GRAM/GIEM INC INC SA STAIN BCT FUNGI/VAHID L PROTEIN 82225 LUCY AYALA XCPT 2 [facility] REFRACTOM INC INC ETRY SERUM PLASMA/WH L BLD LACTATE 94260 LUCY AYAL[facility] DEHYDROGE 2 [facility] NASE LDH INC INC IRON 75093 LUCY AYALA BINDING 2 [facility] CAPACITY INC INC GLUCOSE 55878 LUCY AYALA BODY 2 [facility] FLUID INC INC OTHER THAN BLOOD BLOOD 24818 LUCY AYALA GASES ANY 2 [facility] INC INC COMBINATI ON PH PCO2 PO2 CO[address] THORAX 62506 [place] W/O 2 MEDICAL EMY CONTRAST IMAGING MATERIAL ASS TISS FRED 03547 LUCY AYALA SLIDE 2 [facility] SAMPS INC INC SKN/HR/NL S FNGI/ECTO PARASIT CULTURE 20354 LUCY AYALA TUBERCLE/ 2 [facility] OTH INC INC ACID-FAST BACILLI ANY ISOL CULTURE 63839 LUCY A[facility]ALA BACTERIAL 2 [facility] ANY INC INC SOURCE ANAEROBIC ISO&ID CUL BACT 64798 LUCY AYALA XCPT 2 [facility] URINE INC INC BLOOD/[place] [address] [place] [facility] GUIDANCE 2 MEDICAL EMY NEEDLE IMAGING PLACEMENT ASS CYANOCOBA 01582 LUCY AYALA BETTIE 2 [facility] VITAMIN INC INC B-12 [address] [facility] ARROWJanet MA ESIS 2 MEDICAL EMY PUNCTURE IMAGING PLEURAL [place] [address] LUCY AYALA IRON 2 [facility] INC INC CARBOXYHE 25800 LUCY AYALA MOGLOBIN 2 [facility] QUANTITAT INC INC ARCENIO CELL 55487 LUCY AYALA COUNT 2 [facility] MISC BODY INC INC FLUIDS W/DIFFERE NTIAL COUNT COLLECTIO 18539 LUCY AYALA N VENOUS 2 [facility] BLOOD INC INC VENIPUNCT URE CYTP 35140 PATHOLOGY PATHOLOGY SLCTV 2 & & CELL CYTOLOGY CYTOLOGY ENHANCEME LAB LAB NT INTERPJ XCPT C/V NONINVASI 99161 LUCY AYALA VE 2 [facility] EAR/PULSE INC INC OXIMETRY SINGLE DETER ECG 85216 LUCY AYALA ROUTINE 2 [facility] ECG INC INC W/LEAST 12 LDS TRCG ONLY W/O I&R ECG 89421 RUSH BEVERLY ROUTINE 2 JENNA JENNA ECG W/LEAST 12 LDS I&R ONLY CT THORAX 69714 [place] FRANC[place] W/O 2 MEDICAL EMY CONTRAST IMAGING MATERIAL ASS 3D 39732 [place] FRANCES[place] RENDERING 2 MEDICAL EMY IMAGING W/INTERP& ASS POSTPROC DIFF WORK STATION SPUTUM 66682 LUCY AYALA OBTAINING 2 [facility] SPEC INC INC AEROSOL INDUCED TX SPX PRTBLE E0431 MILDRED BAR[place]RE[place] GASEOUS 2 HOME HOME O2 SYS MEDICAL MEDICAL RENT; EQUIPME EQUIPME FLWMTR HUMIDFR&M ASK PRTBLE E0431 [place] GASEOUS 2 HOME HOME O2 SYS MEDICAL MEDICAL RENT; EQUIPME EQUIPME FLWMTR HUMIDFR&M ASK SPMTRY 28803 LUCY AYALA W/VC 2 [facility] EXPIRATOR INC INC Y ALFREDO W/WO MXML VOL VNTJ PRTBLE E0431 MILDRED MILDRED GASEOUS 2 HOME HOME O2 SYS MEDICAL MEDICAL RENT; EQUIPME EQUIPME FLWMTR HUMIDFR&M ASK PRTBLE E0431 MILDRED MILDRED GASEOUS 2 HOME HOME O2 SYS MEDICAL MEDICAL RENT; EQUIPME EQUIPME FLWMTR HUMIDFR&M ASK RADIOLOGI 63279 ERIKA JAMES C EXAM 2 DON DON CHEST 2 VIEWS FRONTAL&L ATERAL CT THORAX 62117 [place] FRANCES[place] 2 MEDICAL EMY W/CONTRAS IMAGING T ASS MATERIAL COMPREHEN 01690 COMBINED COMBINED SIVE 2 PHYSICIAN PHYSICIAN [place] [address] COMBINED COMBINED PROSTATE 2 PHYSICIAN PHYSICIAN SPECIFIC S LA S LA ANTIGEN TOTAL LIPID 42101 COMBINED COMBINED PANEL 2 PHYSICIAN PHYSICIAN S LA S LA BLOOD 39941 COMBINED COMBINED COUNT 2 PHYSICIAN PHYSICIAN COMPLETE [...] ASK O2 CONC 1 E1390 MILDRED [facility]IS [facility] 1 HOME HOME 85%/>02 MEDICAL MEDICAL CONC AT EQUIPME EQUIPME [facility] FLW RATE O2 CONC 1 E1390 MILDRED LUIS [facility] 1 HOME HOME 85%/>02 MEDICAL MEDICAL CONC AT EQUIPME EQUIPME [facility] FLW RATE PRTBLE E0431 MILDRED LEVY GASEOUS 1 HOME HOME O2 SYS MEDICAL MEDICAL RENT; EQUIPME EQUIPME [facility] HUMIDFR&M ASK O2 CONC 1 E1390 MILDRED LUIS [facility] 1 HOME MED HOME MED 85%/>02 EQUIP. L EQUIP. L CONC AT [facility] FLW RATE PRTBLE E0431 MILDRED LEVY GASEOUS 1 HOME MED HOME MED O2 SYS EQUIP. L EQUIP. L RENT; [facility] HUMIDFR&M ASK PRTBLE E0431 MILDRED LEVY GASEOUS 1 HOME MED HOME MED O2 SYS EQUIP. L EQUIP. L RENT; [facility] HUMIDFR&M ASK O2 CONC 1 E1390 MILDRED LUIS [facility] 1 HOME MED HOME MED 85%/>02 EQUIP. L EQUIP. L CONC AT [facility] FLW RATE O2 CONC 1 E1390 MILDRED LUIS [facility] 1 HOME MED HOME MED 85%/>02 EQUIP. L EQUIP. L CONC AT [facility] FLW RATE PRTBLE E0431 MILDRED LEVY GASEOUS 1 HOME MED HOME MED O2 SYS EQUIP. L EQUIP. L RENT; [facility] HUMIDFR&M ASK O2 CONC 1 E1390 MILDRED LUIS [facility] 1 HOME MED HOME MED 85%/>02 EQUIP. L EQUIP. L CONC AT [facility] FLW RATE PRTBLE E0431 MILDRED LEVY GASEOUS 1 HOME MED HOME MED O2 SYS EQUIP. L EQUIP. L RENT; [facility] HUMIDFR&M ASK PRTBLE E0431 MILDRED LEVY GASEOUS 1 HOME MED HOME MED O2 SYS EQUIP. L EQUIP. L RENT; [facility] HUMIDFR&M ASK O2 CONC 1 E1390 MIL[place] 1 HOME MED HOME MED 85%/>02 EQUIP. L EQUIP. L CONC AT [facility] FLW RATE O2 CONC 1 E1390 [place] 0 HOME MED HOME MED 85%/>02 EQUIP. L EQUIP. L CONC AT [facility] FLW RATE PRTBLE E0431 MILDRED BARBERRELL GASEOUS 0 HOME MED HOME MED O2 SYS EQUIP. L EQUIP. L RENT; FLWMTR HUMIDFR&M ASK O2 CONC 1 E1390 [place] 0 HOME MED HOME MED 85%/>02 EQUIP. L EQUIP. L CONC AT [facility] FLW RATE PRTBLE E0431 MILDRED LEVY GASEOUS 0 HOME MED HOME MED O2 SYS EQUIP. L EQUIP. L RENT; FLWMTR HUMIDFR&M ASK O2 CONC 1 E1390 [place] 0 HOME MED HOME MED 85%/>02 EQUIP. L EQUIP. L CONC AT [facility] FLW RATE PRTBLE E0431 MILDRED LEVY GASEOUS 0 HOME MED HOME MED O2 SYS EQUIP. L EQUIP. L RENT; FLWMTR HUMIDFR&M ASK PRTBLE E0431 MILDRED LEVY GASEOUS 0 HOME MED HOME MED O2 SYS EQUIP. L EQUIP. L RENT; FLWMTR HUMIDFR&M ASK O2 CONC 1 E1390 [facility] HOME MED 85%/>02 EQUIP. L EQUIP. L CONC AT [facility] FLW RATE INJECTION J2250 [facility] 0 Y Y MIDAZOLAM [facility] HCL PER 1 MG SMR PRIM 98498 [facility] SRC 0 Y Y GRAM/GIEM [facility] SA STAIN BCT FUNGI/VAHID L CULTURE 14601 [facility] FUNGI 0 Y Y DEFINITIV [facility] E ID EACH ORGANISM YEAST VIRUS 20393 [facility] CENTRIFUG [address] [facility] [facility] ID IMFLUOR STAIN EA RADIOLOGI 58212 [place] ROBBINS C 0 MEDICAL JESS EXAMINATI SERV ON CHEST FOUNDATIO [place]ING[place] FRONTAL SPECIAL 08092 [place] ALIRIO STAIN 0 MEDICAL BRILL YOL GROUP 1 SERV MICROORGA FOUNDATIO NISMS I&R CULTURE 65291 [facility] FNGI 0 Y Y MOLD/YEAS [facility] T PRSMPTV OTH XCPT BLOOD BRONCHOSC 05970 [place] KUMAR OPY 0 MEDICAL MARIAN NEEDLE BX SERV TRACHEA FOUNDATIO MAIN STEM&/BRO N BRONCHOSC 27937 [place] KUM[place] OPY 0 MEDICAL MARIAN W/TRANSBR SERV ONCHIAL FOUNDATIO LUNG BX 1 LOBE INJECTION J3010 [facility] FENTANYL 0 Y Y CITRATE [facility] 0.1 MG BRNCHSC 15327 [facility] W/BRNCL 0 Y Y ALVEOLAR [facility] LAVAGE CUL BACT 51196 [facility] XCPT 0 Y Y URINE [facility] BLOOD/STO OL AEROBIC ISOL TISS FRED 28939 [facility] SLIDE 0 Y [facility] SKN/HR/NL S FNGI/ECTO PARASIT SMR PRIM 25375 [facility] SRC 0 Y Y FLUORESCE [facility] NT&/AFS BCT FNGI PARASIT CULTURE 26844 [facility] TUBERCLE/ 0 Y Y OTH [facility] ACID-FAST BACILLI ANY ISOL IAADI 48726 [facility] PNEUMOCUS 0 Y Y TIS [facility] CARINII CONCENTRA 44501 [facility] TION 0 Y Y INFECTIOU [facility] S AGENTS VIRUS 25827 [facility] TISS CUL 0 Y Y INOCULATI [facility] ON CYTOPATHI C EFFECT IADNA NOS 07415 [facility] 0 Y Y AMPLIFIED [facility] PROBE TQ EACH ORGANISM CELL 53165 [facility] COUNT 0 Y Y MISC BODY [facility] FL[place] [address] [place] ALIRIO SURG 0 MEDICAL BRILL YOL PATHOLOGY SERV FOUNDATIO GROSS&JESS ROSCOPIC EXAM CYTP FINE 70221 [place] REINA NDL 0 MEDICAL ASPIRATE SERV IMMT FOUNDATIO CYTOHIST STD DX 1ST CYTP EVAL 03321 [place] REINA FINE 0 MEDICAL NEEDLE SERV ASPIRATE FOUNDATIO INTERP & REPORT PRTBLE E0431 MILDRED LEVY GASEOUS 0 HOME MED HOME MED O2 SYS EQUIP. L EQUIP. L RENT; FLWMTR HUMIDFR&M ASK O2 CONC 1 E1390 [place] 0 HOME MED HOME MED 85%/>02 EQUIP. L EQUIP. L CONC AT [facility] FLW RATE RADEX 04203 LUCY AYALA ESOPHAGUS 0 [facility] INC INC PHLEBOTOM 85679 COMBINED COMBINED Y 0 PHYSICIAN PHYSICIAN THERAPEUT S LA S LA IC SEPARATE PROCEDURE DUP-SCAN 88703 LUCY AYALA XTR VEINS 0 [facility] COMPLETE INC INC BILATERAL STUDY BRNCDILAT 27745 LUCY AYALA RSPSE 0 [facility] SPMTRY INC INC PRE&POST- BRNCDILAT ADMN BLOOD 55773 LUCY AYALA COUNT 0 [facility] COMPLETE INC INC AUTO&AUTO DIFRNTL WBC PULMONARY 68921 [place] POLLOCK STRESS 0 MEDICAL JAM TESTING SERV SIMPLE FOUNDATIO COMPREHEN 96949 LUCY AYALA SIVE 0 [facility] METABOLIC INC INC PANEL COLLECTIO 08009 LUCY AYALA N VENOUS 0 [facility] BLOOD INC INC VENIPUNCT URE COLLECTIO 91351 COMBINED COMBINED N VENOUS 0 PHYSICIAN PHYSICIAN BLOOD S LAB S LAB VENIPUNCT URE COMPREHEN 72597 COMBINED COMBINED SIVE 0 PHYSICIAN PHYSICIAN METABOLIC S LAB S LAB PANEL CT THORAX 08917 LUCY AYALA W/O 0 [facility] CONTRAST INC INC MATERIAL 3D 81286 LUCY AYALA RENDERING 0 [facility] INC INC W/INTERP& POSTPROC DIFF WORK STATION RADIOLOGI 95761 LUCY AYALA C EXAM 0 [facility] CHEST 2 INC INC VIEWS FRONTAL&L ATERAL O2 CONC 1 E1390 [place] 0 HOME MED HOME MED 85%/>02 EQUIP. EQUIP. CONC AT [facility] FLW RATE PRTBLE E0431 MILDRED LEVY GASEOUS 0 HOME MED HOME MED O2 SYS EQUIP. EQUIP. RENT; [facility] FLWMTR HUMIDFR&M ASK PRTBLE E0431 MILDRED BARBERRELL GASEOUS 0 HOME MED HOME MED O2 SYS EQUIP. EQUIP. RENT; [facility] FLWMTR HUMIDFR&M ASK O2 CONC 1 E1390 [place] 0 HOME MED HOME MED 85%/>02 EQUIP. EQUIP. CONC AT [facility] FLW RATE ECG 21058 ERIKA JAMES, ROUTINE 0 DON R DON R ECG W/LEAST 12 LDS W/I&R RADIOLOGI 82368 ERIKA JAMES C EXAM 0 DON R DON R CHEST 2 VIEWS FRONTAL&L ATERAL INJECTION J1940 ERIKA JAMES, 0 DON R DON R FUROSEMID E UP TO 20 MG RADIOLOGI 73193 ERIKA JAMES 0 DON R DON R EXAMINATI ON CHEST SINGLE [facility]IEW [facility] 08343 JAMESERIKA VELASCO, DISCHARGE 0 DON R DON R DAY MANAGEMEN T 30 MIN/< RADIOLOGI 54171 Kristy VALENTIN EXAM 0 MEDICAL JANE P CHEST 2 IMAGING VIEWS ASSOCIATE FRONTAL&L S ATERAL [facility] 66536 [facility] 0 DON R DON R CARE/DAY 25 MINUTES [facility] 14424 [facility] 0 DON R DON R CARE/DAY 25 MINUTES [facility] 57533 [facility] 0 DON R DON R CARE/DAY 25 MINUTES [facility] 73683 [facility] 0 DON R DON R CARE/DAY [address] THORAX 49274 [place] [facility], 0 MEDICAL SHASHI W/CONTRAS IMAGING T ASSOCIATE MATERIAL S 3D 72703 [place] [facility], RENDERING 0 MEDICAL SHASHI IMAGING W/INTERP& ASSOCIATE POSTPROC S DIFF WORK STATION [facility] 75247 [facility] 0 DON R DON R CARE/DAY 25 MINUTES RADIOLOGI 89067 ERIKA JAMES 0 DON R DON R EXAMINATI ON CHEST SINGLE VIEW FRONTAL [facility]ITIAL 01762 [facility] DON R DON R CARE/DAY 50 MINUTES RADIOLOGI [address] [facility] ARROWKristy TITUS EXAM 0 MEDICAL SHASHI CHEST 2 IMAGING VIEWS ASSOCIATE FRONTAL&L S ATERAL OPHTH 11110 [facility], [facility] 9 DONTE A DONTE A XM&EVAL COMPRHNSV ESTAB PT 1/> SCANNING 90221 RETINA & NINI, OPHTHALMI 9 VITREOUS CALLIE W C IMAGING ASSOCIATE S O POSTERIOR SGM UNI OPHTH 04928 RETINA & NINI, MEDICAL 9 VITREOUS CALLIE W XM&EVAL ASSOCIATE INTERMEDI S O ATE ESTAB PT INJECTION J1040 ERIKA JAMES 8 DON R DON R METHYLPRE DNISOLONE ACETATE 80 MG SCANNING 13127 RETINA & NINI, OPHTHALMI 8 VITREOUS CALLIE W C IMAGING ASSOCIATE S O POSTERIOR SGM UNI OPHTH 18202 RETINA & NINI, MEDICAL 8 VITREOUS CALLIE W XM&EVAL ASSOCIATE INTERMEDI S O ATE ESTAB PT INJECTION [id number] ERIKA JAMES, Adán DON R DON R METHYLPRE DNISOLONE ACETATE 80 MG [facility] 75973 [facility] A DONTE A XM&EVAL COMPRHNSV ESTAB PT 1/> SCANNING 47061 RETINA & NINI, OPHTHALMI 8 VITREOUS CALLIE W C IMAGING ASSOCIATE S O POSTERIOR SGM UNI OPHTH 01101 RETINA & NINI, MEDICAL 8 VITREOUS CALLIE W XM&EVAL ASSOCIATE INTERMEDI S O ATE ESTAB PT INJECTION [id number] ERIKA JAMES 8 DON R DON R METHYLPRE DNISOLONE ACETATE 80 MG RADIOLOGI 73458 ERIKA JAMES C EXAM 8 DON R DON R CHEST 2 VIEWS FRONTAL&L ATERAL SCANNING 02-19-200 [id number] RETINA & RETINA & OPHTHALMI 8 VITREOUS VITREOUS C IMAGING ASSOCIATE ASSOCIATE S O S O POSTERIOR SGM [facility] OPH 16574 RETINA & RETINA & MEDICAL 8 VITREOUS VITREOUS XM&EVAL ASSOCIATE ASSOCIATE INTERMEDI S O S O ATE ESTAB PT SCANNING 14084 RETINA & RETINA & OPHTHALMI 8 VITREOUS VITREOUS C IMAGING ASSOCIATE ASSOCIATE S O S O POSTERIOR SGM [facility] OPH 70763 RETINA & RETINA & MEDICAL 8 VITREOUS VITREOUS XM&EVAL ASSOCIATE ASSOCIATE INTERMEDI S O S O ATE ESTAB PT INJECTION J1100 ERIKA JAMES, Adán [place] R DON R DEXAMETHO SONE SODIUM PHOSPHATE 1 MG Encounters Encounter Start End Date Code Location Performer Type Date OFFICE 18022 [facility] OUTPATIEN 7 7 PHYSICIAN T VISIT S GROUP 25 MINUTES [facility]OSPITAL LUCY - 7 7 [facility] INC T OFFICE 66035 [facility] OUTPATIEN 7 7 PHYSICIAN T VISIT S GROUP 40 MINUTES OFFICE 54766 A C [place] OUTPATIEN 7 7 [place] T VISIT [facility] 15 MINUTES OFFICE 87540 [facility] OUT[facility] 7 7 Y OF CK T VISIT [place] 25 HOSPI MINUTES OFFICE 85181 A C [place] OUTPATIEN 7 7 [place] T VISIT [facility] 15 MINUTES OFFICE 45965 A C [place] OUTPATIEN 7 7 [place] T VISIT [facility] 15 MINUTES [facility]OSPITAL LUCY - 7 7 [facility] INPATIENT INC OFFICE 68948 A C [place] OUTPATIEN 7 7 [place] T VISIT [facility] 15 MINUTES OFFICE 80084 A C [place] OUTPATIEN 7 7 [place] T VISIT [facility] 15 MINUTES [facility]OSPITAL LUCY - 6 6 [facility] OUT[facility] INC T OFFICE 72043 ELIO POLLOCK OUTPATIRYLEE 6 6 MEDICAL JAM T VISIT SERV 25 FOUNDATIO MINUTES N OFFICE 75196 [facility] JR OUTPATIEN 6 6 PHYSICIAN RITA T VISIT S GROUP 10 MINUTES HOSPITAL LUCY - 6 6 [facility] OUTPATIEN INC T OFFICE 22194 [facility] EVAN OUTPATIEN 6 6 [facility] VISIT HOSPITAL 10 P MINUTES OFFICE 24045 A Kristy ROY OUTPATIEN 6 6 [place] T VISIT PSC 15 MINUTES OFFICE 97554 ELIO POLLOCK OUTPATIEN 6 6 MEDICAL JAM T VISIT SERV 15 FOUNDATIO MINUTES N OFFICE 54173 [facility] JR OUTPATIEN 6 6 PHYSICIAN RITA T VISIT S GROUP 15 MINUTES OFFICE 64720 LUCY EVAN OUTPATIEN 6 6 [facility] 20 HOSPITAL MINUTES HOSPITAL LUCY - 6 6 [facility] OUTPATIEN INC T OFF[facility] 92820 [facility] JR OUTPATIEN 6 6 PHYSICIAN [facility] T NEW 45 S GROUP MINUTES OFFICE 38137 [place] OUTPATIEN 6 6 MEDICAL JAM T VISIT SERV 25 FOUNDATIO MINUTES HOSPITAL LUCY - 6 6 [facility] OUTPATIEN INC T OFFICE 18003 A Kristy ROY OUTPATIRYLEE 6 6 [place] T VISIT PSC 15 MINUTES OFFICE 24352 [place] OUTPATIEN 6 6 MEDICAL JAM T VISIT SERV 25 FOUNDATIO MINUTES N EMERGENCY 83083 [facility] DEPT 6 6 [facility] VISIT INC HIGH SEVERITY& THREAT [facility] LUCY - 6 6 [facility] OUTPATIEN INC T OFFICE 85279 A Kristy WEST OUTPATIEN 6 6 [place] T VISIT PSC 15 MINUTES OFFICE 29517 A Kristy WEST OUTPATIEN 6 6 [place] T VISIT PSC 15 MINUTES OFFICE 76632 ELIO DODSONPOLLOCK OUTPATIEN 6 6 MEDICAL JAM T VISIT SERV 40 FOUNDATIO MINUTES [facility] LUCY - 6 6 [facility] INPATIENT [facility] LUCY - 6 6 [facility] OUTPATIEN [facility] OFF[facility] 19838 ELIO POLLOCK OUTPATIEN 6 6 MEDICAL T VISIT SERV 25 FOUNDATIO MINUTES OFFICE 16072 ELIO POLLOCK OUTPATIEN 6 6 MEDICAL JAM T VISIT SERV 15 FOUNDATIO MINUTES [facility] LUCY - 5 5 [facility] OUTPATIEN [facility] LUC[facility] - 5 5 [facility]IEN [facility] LUCY - 5 5 [facility] 47659 A C FIELD AMB OUTPATIEN 5 5 [place] T VISIT PSC 15 MINUTES OFFICE 50569 A C FIELD AMB OUTPATIEN 4 4 PILAR [facility] T VISIT PSC 15 MINUTES [facility] - [facility] OFF[facility] [id number] FIELD AMB FIELD AMB OUTPATIEN 4 4 T VISIT 15 MINUTES OFFICE 77101 FIELD AMB FIELD AMB OUTPATIEN 3 3 T VISIT 15 MINUTES OFFICE [id number] A C FIELD AMB OUTPATIEN 3 3 PILAR PLEITEZ NEW 30 PSC MINUTES OFFICE 42850 ERIKA MELENDREZS OUTPATIEN 3 3 DON DON T VISIT 15 MINUTES OFFICE 01957 ERIKA MELENDREZS OUTPATIEN 3 3 DON DON T VISIT 15 MINUTES [facility]OS[facility] - 3 3 [facility] 2 2 [facility] OUTPATI[facility] 35138 ERIKA MELENDREZS OUTPATIEN 2 2 DON DON T [facility]ISIT 15 MINUTES [facility]OSP[facility] - 2 2 [facility] 2 [facility] OFFICE 97735 ERIKA MELENDREZS OUTPATIEN 2 2 DON DON T VISIT 15 MINUTES OFFICE 44406 JAMES JAMES OUTPATIEN 1 1 DON DON T VISIT 15 MINUTES OFFICE 56275 JAMES JAMES OUTPATIEN 1 1 DON DON T VISIT 15 MINUTES OFFICE 65457 [facility] OUTPATIEN 1 1 DON DON T VISIT 15 MINUTES OFFICE 67258 [facility] OUTPATIEN 1 1 DON DON T VISIT 15 MINUTES HOSPITAL UNIVERSIT - 0 0 [facility] - 0 0 [facility] 51154 ERIKA JAMES OUTPATIEN 0 0 DON R DON R T VISIT 15 MINUTES OFFICE 25121 ERIKA JAMES OUTPATIEN 0 0 DON R DON R T VISIT 25 MINUTES OFFICE 35702 ERIKA JAMES OUTPATIEN 0 0 DON R DON R T VISIT 15 MINUTES OFFICE 95050 ERIKA JAMES OUTPATIEN 8 8 DON R DON R T VISIT 15 MINUTES OFFICE 82208 ERIKA JAMES OUTPATIEN 8 8 DON R DON R T VISIT 15 MINUTES OFFICE 97870 ERIKA JAMES OUTPATIEN 8 8 DON R DON R T VISIT 15 MINUTES OFFICE 71526 ERIKA JAMES OUTPATIEN 8 8 DON R DON R T VISIT 15 MINUTES OFFICE 68237 ERIKA JAMES OUTPATIEN 8 8 DON R DON R T VISIT 15 MINUTES
--- OUTSIDE RECORDS SUMMARY | 2016-12-05 18:57 | External Medical Summary Rpt ---
Author Author , RANDALL PEREIRA Address Unknown Phone [email or web address] Care Team Providers Care Screw Machine Hand Name Role Phone A Kristy QUEZADA MD [...] Unavailable ROBBINS JESS, ROBBINS Unavailable Unavailable JESS [facility] Unavailable Unavailable SERVICE, [facility] Unavailable Unavailable SERVICE, [facility] Un[facility] Unavailable [place], [facility] Unavailable Unavailable [facility], [facility] Unavailable Unavailable LAB, [facility] COOK JOSH, COOK JOSH Unavailable Unavailable FRANCESCA, FRANCESCA Unavailable Unavailable FRANCESCA [...] Unavailable TAYLOR KEYANA, TAYLOR Unavailable Unavailable KEYANA [facility] Unavailable Unavailable INC, [facility], [facility] DONTE RUIZ, Unavailable Unavailable DONTE RUIZ [facility], Unavailable Unavailable [facility] ARMENDARIZ JENNA, ARMENDARIZ JENNA Unavailable [...] DWI, GLENN Unavailable Unavailable JR DWI [facility] [place] Unavailable Unavailable [facility], [facility] JAMES CON, JAMES CON Unavailable [...] PHARM #[id number] [facility] Unavailable Unavailable [id number] # [id number], [facility] [id number] # [id number] TANIYA ABIMAEL, TANIYA ABIMAEL Unavailable Unavailable SHANELL, SHANELL Unavailable Unavailable SHANELL CAR, Unavailable [...] Unavailable MADALYN OTTO SUSAN, OTTO Unavailable Unavailable [facility], Unavailable Unavailable 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 10-09-2016 [facility] E785 HYPERLIPIDE 10-04-2016 [facility] UNSPECIFIED GROUP I119 HYPERTENSIV 10-04-2016 [facility] E HEART PHYSICIANS DISEASE GROUP WITHOUT HEART FAILURE 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 CHRONIC 10-04-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[facility] OBSTRUCTIVE PHYSICIANS PULMONARY GROUP DISEASE UNS R0600 DYSPNEA 10-04-2016 [facility] UNSPECIFIED PHYSICIANS GROUP R0602 SHORTNESS 09-14-2016 [place] OF BREATH MEDICAL IMAGING ASS R918 OTHER 09-14-2016 [place] NONSPECIFIC MEDICAL ABNORMAL IMAGING ASS FINDING OF LUNG FIELD R938 ABNORMAL 09-14-2016 [facility] FIND ON DX [facility] IMAGING OT INC SPEC BODY STRCT R9431 ABNORMAL 09-14-2016 [facility] ELECTROCARD [facility] IOGRAM INC J410 SIMPLE 09-04-2016 A Kristy GARLAND MD PSC BRONCHITIS I4891 UNSPECIFIED 09-02-2016 [facility] HOME FIBRILLATIO MEDICAL N EQUIPME I200 UNSTABLE 08-27-2016 [facility] ANGINA PHYSICIANS GROUP I10 ESSENTIAL 08-25-2016 [facility] P N [id number] [facility] MI'KMAQ 08-25-2016 [facility] P ANGINA PECTORIS I272 OTHER 08-25-2016 [facility] P HYPERTENSIO N R079 CHEST PAIN 08-25-2016 [place] UNSPECIFIED MEDICAL IMAGING ASS I482 CHRONIC 06-14-2016 A Kristy QUEZADA [facility]IAL [facility] FIBRILLATIO N J9610 CHRONIC 06-14-2016 A Kristy QUEZADA RESPIRATORY PSC FAIL UNS HYPOXIA/HYP ERCAPNIA R296 REPEATED 06-14-2016 A Kristy KHAN MD PSC J441 CHRONIC 05-25-2016 A Kristy ANN MD PSC PULMONARY DZ W/EXACERBAT ION B957 OTH [...] PSC CONGESTIVE HEART FAILURE C9110 CHRONIC 01-11-2016 [place] [facility] 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 R634 ABNORMAL 01-11-2016 [facility] WEIGHT LOSS [facility] INC R1110 VOMITING 01-09-2016 [facility] UNSPECIFIED PHYSICIANS GROUP K828 OTHER 01-02-2016 [place] SPECIFIED MEDICAL DISEASES OF IMAGING ASS GALLBLADDER R630 ANOREXIA 01-02-2016 [place] [facility] K921 MELENA 11-07-2015 [facility] K5710 DIVERTICULO 11-03-2015 [place] SIS SM MEDICAL INTEST W/O IMAGING ASS PERF/ABSC W/O BLEED R195 OTHER FECAL 11-03-2015 [place] [facility] ABNORMALITI IMAGING ASS ES C04650 LYMPHOCYTOS 10-26-2015 [facility] IS PATHOLOGY SYMPTOMATIC LAB NETW J690 PNEUMONITIS 10-26-2015 [place] [facility] DUE TO SERV INHALATION [facility] OF FOOD AND VOMIT Z09 ENC F/U 10-20-2015 A Kristy QUEZADA EXAM AFTR PSC CMPL TX OTH THAN MALIG NEOPLSM B370 CANDIDAL 10-19-2015 [place] [facility] STOMATITIS SERV [facility] R112 NAUSEA WITH 10-19-2015 [place] [facility] VOMITING SERV UNSPECIFIED FOUNDATION I509 HEART 10-15-2015 [facility] FAILURE HOME UNSPECIFIED MEDICAL EQUIPME R531 WEAKNESS 09-20-2015 [facility] 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[facility] R BLOCK SERV [facility] I4510 UNSPECIFIED 09-15-2015 [place] [facility] RIGHT SERV BUNDLE-BRAN FOUNDATION CH BLOCK R001 BRADYCARDIA 09-15-2015 [place] [facility] UNSPECIFIED FOUNDATION B965 PSEUDOMONAS 09-14-2015 [place] [facility] CAUSE OF SERV DZ [facility] CLASSIFIED ELSEWHERE J9600 ACUTE 09-14-2015 [place] [facility] RESPIRATORY SERV FAIL UNS FOUNDATION HYPOXIA/HYP ERCAPNIA J9811 ATELECTASIS 09-14-2015 [place] [facility] C63595 ENCOUNTER 09-14-2015 [place] [facility] SURG SERV AFTERCARE F[facility] FLW SURG DIGESTIVE SYS Z049 ENCOUNTER 09-13-2015 [place] [facility] EXAMINATION SERV &OBSERVATIO FOUNDATION N FOR UNS REASON K5900 CONSTIPATIO 09-12-2015 [place] [facility] N SERV UNSPECIFIED FOUNDATION R140 ABDOMINAL 09-10-2015 [place] [facility] DISTENSION SERV GASEOUS [facility]OUND[facility] R0989 OTH SPEC SX 09-09-2015 [place] [facility] & SIGNS SERV INVLV THE FOUNDATION CIRC & RESP SYS A419 SEPSIS 09-08-2015 [place] [facility] UNSPECIFIED SERV ORGANISM FOUNDATION E873 ALKALOSIS 09-08-2015 [place] [facility] E876 HYPOKALEMIA 09-08-2015 [place] [facility] J90 PLEURAL 09-08-2015 [place] [facility] EFFUSION SERV NOT FOUNDATION ELSEWHERE CLASSIFIED J9620 ACUTE 09-08-2015 [place] [facility] CHRONIC SERV RESP FAIL FOUNDATION UNS HYPOXIA/HYP ERCAPNIA J984 OTHER 09-08-2015 [place] [facility] DISORDERS SERV OF LUNG FOUNDATION R109 UNSPECIFIED 09-08-2015 [place] [facility] ABDOMINAL SERV PAIN FOUNDATION Z4682 ENCOUNTER 09-08-2015 [facility] ADJUST HOSPI NON-VASCULA R CATHETER 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-07-2015 [place] [facility] DISORDER SERV UNSPECIFIED FOUNDATION I517 CARDIOMEGAL 09-07-2015 [place] [facility] Y SERV [facility] I5189 OTHER 09-07-2015 [place] [facility] ILL-DEFINED SERV HEART FOUNDATION DISEASES R0902 HYPOXEMIA 09-06-2015 [place] [facility] R0689 OTHER 09-02-2015 [place] [facility] ABNORMALITI SERV ES OF FOUNDATION BREATHING J942 HEMOTHORAX 08-30-2015 [place] [facility] J948 OTHER 08-30-2015 [place] [facility] SPECIFIED SERV PLEURAL FOUNDATION CONDITIONS L538 OTHER 08-30-2015 [place] [facility] SPECIFIED SERV ERYTHEMATOU FOUNDATION S CONDITIONS Z9889 OTHER 08-30-2015 [place] [facility] SPECIFIED SERV POSTPROCEDU FOUNDATION RAL STATES 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 NGUYEN W/OBST HOSPI W/O GANGRN NOT RECUR K4040 UNILAT 08-25-2015 [place] [facility] IN[facility]INAL SERV NGUYEN FOUNDATION W/GANGREN NOT SPEC RECUR Z7901 ASSISTED 08-25-2015 [place] [facility] CURRENT USE SERV OF FOUNDATION ANTICOAGULA NTS M69072 ELEVATED 08-24-2015 [facility] BLOOD [facility] P UNSPECIFIED K4090 UNILAT 08-24-2015 [place] [facility] INGUINAL SERV NGUYEN W/O FOUNDATION OBST/GANGRE N NOT RECUR K5660 UNSPECIFIED 08-24-2015 [facility] AMBULANCE SERVICE OBSTRUCTION R1031 RIGHT LOWER 08-24-2015 [facility] PAIN HOSPI V33777 PERSONAL 08-24-2015 [facility] 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 J189 PNEUMONIA 08-03-2015 [place] UNSPECIFIED MEDICAL ORGANISM IMAGING ASS J439 EMPHYSEMA 08-03-2015 [place] UNSPECIFIED [place] INTERNAL MED J929 PLEURAL 08-03-2015 [place] PLAQUE MEDICAL WITHOUT IMAGING ASS ASBESTOS R002 PALPITATION 08-03-2015 [place] [facility] S SERV [facility] R031 NONSPECIFIC 08-03-2015 [place] [facility] LOW SERV BLOOD-PRESS FOUNDATION URE READING R42 DIZZINESS 08-03-2015 [place] [facility] AND SERV GIDDINESS FOUNDATION 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 MED J42 UNSPECIFIED 07-13-2015 [place] CHRONIC MEDICAL BRONCHITIS IMAGING ASS Z7722 CONTACT W/ 07-13-2015 [place] [facility] & SUSPECTED SERV EXPOS [facility] EMERGENC[facility] DEPART[facility] ENVIR TOBACCO SMOKE J40 BRONCHITIS 03-25-2015 [place] NOT MEDICAL SPECIFIED IMAGING ASS ACUTE OR CHRONIC R091 PLEURISY 01-21-2015 [place] [facility] 4280 CONGESTIVE 01-14-2015 [facility] HOME FAILURE MEDICAL UNSPECIFIED EQUIPME 81467 OBSTRUCTIVE 01-14-2015 [facility] WITHOUT EXACERBAT 496 CHRONIC 01-14-[address] [facility] [address] HOME OBSTRUCTION MEDICAL NEC EQUIPME 79713 NUCLEAR 12-28-2014 [place] SCLEROSIS JAMILAH 87599 OBST 09-06-2014 A Kristy QUEZADA CHRONIC PSC BRONCHITIS W/ACUTE BRONCHITIS 63650 LOSS OF 09-06-2014 A Kristy QUEZADA WEIGHT PSC 63622 OTHER CHEST 09-06-2014 A Kristy QUEZADA PAIN PSC 53548 OBSTRUCTIVE 09-05-2014 [facility] SLEEP HOME APNEA MEDICAL EQUIPME 7242 LUMBAGO 04-01-2014 A Kristy QUEZADA MD PSC V0382 NEED PROPH 04-01-2014 A Kristy QUEZADA VACCINATION PSC AGAINST STREP PNEUMONE 75288 ATRIAL 01-13-2014 [facility] FIBRILLATIO [facility] N INC 86472 REFLUX 01-13-2014 [facility] ESOPHAGITIS [facility] INC 31209 UNS 01-13-2014 [facility] GASTRITIS&G [facility] ASTRODUODIT INC IS W/O MENTION HEMORR 47336 ABDOMINAL 01-13-2014 [facility] PAIN, [facility] GENERALIZED INC V5869 LONG-TERM 01-13-2014 [facility] (CURRENT) [facility] USE OF INC OTHER MEDICATIONS 81331 CHEST PAIN 11-24-2013 [facility] UNSPECIFIED [facility] INC 5110 PLEURISY 10-29-2013 [place] WITHOUT MEDICAL MENTION IMAGING ASS EFFUS/CURRE NT TB 7862 COUGH 10-29-2013 [place] [facility] 96269 INSOMNIA 12-16-2012 A Kristy QUEZADA UNSPECIFIED PSC 45454 OTHER 12-16-2012 A Kristy QUEZADA MALAISE AND PSC FATIGUE 66051 FEVER 05-23-2012 J[facility] UNSPECIFIED DON 57700 WHEEZING 05-23-2012 JAMES DON 1120 CANDIDIASIS 05-21-2012 J[facility] OF MOUTH DON 60383 OTHER 05-21-2012 FRANCESCA DISEASES OF EMY LUNG NOT ELSEWHERE CLASSIFIED 4940 BRONCHIECTA 01-28-2012 [place] SIS WITHOUT MEDICAL ACUTE IMAGING ASS EXACERBATIO N 5119 UNSPECIFIED 01-28-2012 [place] PLEURAL MEDICAL EFFUSION IMAGING ASS 05391 OTHER 01-28-2012 [facility] NONSPECIFIC [facility] ABNORMAL INC FINDING OF LUNG FIELD 18742 OSTEOARTHRO 01-02-2012 JAMES S INVLV MX DON SITES BUT [place] SPEC [place] 66645 OBSTRUCTIVE 11-12-2011 [facility] CHRONIC [facility] BRONCHITIS INC WITH EXACERBATIO N 66166 ESOPHAGEAL 11-12-2011 [facility] REFLUX [facility] INC 2859 UNSPECIFIED 10-05-2011 [facility] ANEMIA [facility] INC 5180 PULMONARY 10-05-2011 [place] COLLAPSE MEDICAL IMAGING ASS 486 PNEUMONIA, 09-28-2011 [place] ORGANISM MEDICAL UNSPECIFIED IMAGING ASS 5070 PNEUMONITIS 09-28-2011 [place] DUE TO JAM INHALATION OF FOOD OR VOMITUS 46334 SHORTNESS 09-28-2011 [facility] OF BREATH [facility] INC 67820 ABDOMINAL 09-28-2011 [facility] PAIN, MEM [facility] EPIGASTRIC INC V1261 PERSONAL 09-28-2011 [place] HISTORY JAM PNEUMONIA RECURRENT 09911 PNEUMONIA 06-08-2011 J[facility] DUE TO DON OTHER SPECIFIED BACTERIA 2724 OTHER AND 05-11-2011 [facility] UNSPECIFIED PHYSICIANS [place] HYPERLIPIDE [place] 2768 HYPOPOTASSE 05-11-2011 [facility] [place] PHYSICIANS [place] 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 6019 UNSPECIFIED 05-11-2011 [place] [address] PAIN IN 05-11-2011 COM[facility]ED JOINT, PHYSICIANS MULTIPLE LA SITES 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 5183 PULMONARY 11-28-2009 [facility] [place] [place] A 14288 ACUTE 11-28-2009 [place] [facility] RESPIRATORY SERV FAILURE FOUNDATIO 7856 ENLARGEMENT 11-28-2009 [facility] NODES 7931 NONSPEC 11-28-2009 [place] [facility] FIND RAD SERV OTH EXAM FOUNDATIO BODY STRUCT LUNG FIELD V1582 PERS HX 11-28-2009 [place] TOBACCO USE [facility] PRESENTING [facility]ZAR[facility] V7282 PRE-OPERATI 11-28-2009 [place] [facility] VE SERV RESPIRATORY FOUNDATIO EXAMINATION 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 95808 DYSPHAGIA 11-18-2009 [place] UNSPECIFIED MEDICAL IMAGING ASS 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, 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 06021 OSTEOARTHRO 08-23-2009 [facility], SIS UNSPEC DON R WHETHER GEN/LOC LOWER LEG 52851 OSTEOARTHRO 08-23-2009 [facility], S UNSPEC DON R GEN/LOC OTH SPEC SITES 70994 MACULAR 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 RUIZ A N OF RETINA UNSPECIFIED 91782 NONEXUDATIV 07-20-2008 [facility] & 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 02398 EXUDATIVE 07-20-2008 [place] & SENILE [facility] DEGENERATIO O N OF RETINA 25324 CRYSTALLINE 07-20-2008 [place] & DEPOSITS VITREOUS IN VITREOUS ASSOCIATES O 4610 ACUTE 02-27-2008 JAMES, MAXILLARY DON R SINUSITIS 4659 ACUTE URIS 02-27-2008 [facility], OF DON R UNSPECIFIED SITE 8472 LUMBAR 11-14-2007 E[facility]KA, SPRAIN AND DON R STRAIN 4660 ACUTE 08-02-2007 [facility], BRONCHITIS DON R 4871 INFLUENZA 07-04-2007 [facility], WITH OTHER DON R RESPIRATORY MANIFESTATI ONS 40763 PAIN IN 04-25-2007 ERIKA, JOINT, DON R SHOULDER REGION 40132 UNSPECIFIED 04-25-2007 [facility], SYNOVITIS DON R AND TENOSYNOVIT IS Medications [...] YOUR YOUR SM VOL 7 PHARMACY PHARMACY [facility] PNEUMAT NEBULIZR DISPBL ECG 44119 [facility] ROUTINE 7 PHYSICIAN ECG S GROUP W/LEAST 12 LDS I&[place] [address] [facility] A[facility]ALA UREA 7 [facility] NITROGEN INC INC QUANTITAT ARCENIO CT THORAX 92987 [facility] A[facility]ALA 7 [facility] W/CONTRAS INC INC T MATERIAL CREATININ 06943 [facility] AYALA E BLOOD 7 [facility] INC INC ALBUTEROL J7620 YOUR YOUR TO 2.5 7 PHARMACY PHARMACY MG & [facility] IPRATROPI UM BROM TO 0.5 MG ADMN SET A7003 YOUR YOUR SM VOL 7 PHARMACY PHARMACY Time [facility] PNEUMAT NEBULIZR DISPBL ALBUTEROL J7620 A C A C TO 2.5 7 PILAR QUEZADA MD MG & PSC PSC IPRATROPI UM BROM TO 0.5 MG ECG 47076 [facility] ROUTINE 7 PHYSICIAN ECG S GROUP W/LEAST 12 LDS I&R ONLY O2 CONC 1 E1390 [facility] LUIS [facility] 7 HOME HOME 85%/>02 MEDICAL MEDICAL CONC AT EQUIPME EQU[facility] FLW RATE R & L HRT 75025 [facility] CATH 7 PHYSICIAN WINJX HRT S GROUP ART& L VENTR IMG RADIOLOGI 67398 [facility] 7 MEDICAL EXAMINATI IMAGING ON CHEST ASS SINGLE VIEW FRONTAL ECG 92849 [facility] ELIZABETH JR ROUTINE [address] [facility] W/LEAST P 12 LDS I&R ONLY ALBUTEROL J7620 YOUR YOUR TO 2.5 7 PHARMACY PHARMACY MG & [facility] IPRATROPI UM BROM TO 0.5 MG ADMN SET A7003 YOUR YOUR SM VOL 7 PHARMACY PHARMACY Time [facility] PNEUMAT NEBULIZR DISPBL O2 CONC 1 E1390 [facility] LEVY [facility] 7 HOME HOME 85%/>02 MEDICAL MEDICAL CONC AT EQUIPME E[facility] FLW RATE O2 CONC 1 E1390 [facility] VARMA 7 HOME HOME 85%/>02 MEDICAL MEDICAL CONC AT EQUIPMERCY EMERGENCY DEPARTMENT FLW RATE SBSQ 44492 [facility] 7 MEDICAL CARE/DAY SERV 25 FOUNDATIO MINUTES N RADIOLOGI 69932 [facility] C EXAM 7 MEDICAL MEDICAL CHEST 2 IMAGING IMAGING VIEWS ASS ASS FRONTAL&L ATERAL O2 CONC 1 E1390 [facility] LU[facility] 7 HOME HOME 85%/>02 MEDICAL MED[facility] O2 CONC 1 E1390 [facility] 6 HOME HOME 85%/>02 MEDICAL MEDICAL CONC [facility] O2 CONC 1 E1390 [facility] LUIS [facility] 6 HOME HOME 85%/>02 MEDICAL MEDICAL CONC AT EQUIPMERCY EMERGENCY DEPARTMENT FLW RATE ALBUTEROL J7620 YOUR YOUR TO 2.5 6 PHARMACY PHARMACY [facility] IPRATROPI UM BROM TO 0.5 MG ADMN SET A7003 YOUR YOUR SM VOL 6 PHARMACY PHARMACY NONFILTR [email or web address] [facility] PNEUMAT NEBULIZR DISPBL PHRM Q0513 YOUR YOUR DISPENSIN 6 PHARMACY PHARMACY G FEE [email or web address] [facility] INHALATIO N RX; PER 30 DAYS O2 CONC 1 E1390 [facility] LUIS [facility] 6 HOME HOME 85%/>02 MEDICAL MEDICAL CONC AT EQUIPMERCY EMERGENCY DEPARTMENT FLW RATE HOSPITAL G0463 [facility] AYALA OUTPATIEN 6 MEM HOSP [facility] T CLIN INC INC VISIT ASSESS & MGMT PT O2 CONC 1 E1390 [facility] LUIS [facility] 6 HOME HOME 85%/>02 MEDICAL MEDICAL CONC [facility] [place] [address] [facility] A[facility] ABDOMEN 6 MEM HOSP [facility]OS[facility] W/CONTRAS INC INC T MATERIAL BLOOD 48464 [facility] COUNT 6 MEM HOS[facility]OS[facility] COMPLETE INC INC AUTO&AUTO DIFRNTL WBC COLLECTIO 16212 [facility] N VENOUS 6 MEM HOSP [facility] BLOOD INC INC VENIPUNCT URE COMPREHEN 05641 [facility] SIVE 6 MEM HOSP [facility] METABOLIC INC INC PANEL LOCM Q9967 [facility] AYALA 300-399 6 MEM HOSP [facility] HOS[facility] MG/ML INC INC IODINE CONCENTRA TION PER ML ANES 31444 [facility] UPPER GI 6 ANESTH PALMA ENDOSCOPY OF THE PROXIMAL BLUE TO DUODENUM O2 CONC 1 E1390 [facility] LEV[facility] [place] 6 HOME HOME 85%/>02 MEDICAL MEDICAL CONC AT EQUIPME [facility] FLW RATE RADEX 94559 [facility] AYALA UPPER GI 6 MEM HOSP [facility] HOSP W/WO INC INC GLUCAGON/ DELAY IMAGES W/KUB O2 CONC 1 E1390 [facility] [place] 6 HOME MAR 85%/>02 MEDICAL CONC AT [facility] FLW RATE RADEX 11546 TEX FONTANEZ ALL UPPER GI 6 MEDICAL W/WO IMAGING GLUCAGON/ ASS DELAY IMGES W/O KUB COLLECTIO 55579 [facility] N VENOUS 6 MEM HOS[facility] BLOOD INC INC VENIPUNCT URE FLOW 39077 [facility] A[facility] CYTOMETRY 6 MEM HOSP [facility] HOS[facility] CELL INC INC SURF MARKER TECHL ONLY EA FLOW 70294 [facility] A[facility] CYTOMETRY 6 MEM HOS[facility]OS[facility] CELL INC INC SURF MARKER TECHL ONLY 1ST FLOW 07992 MOLECULAR MOLECULAR CYTOMETRY 6 [facility] PATHOLOGY PATHOLOGY 2-8 LAB NETW LAB NETW MARKERS NEBULIZER E0570 [facility] LEVY WITH 6 HOME HOME COMPRESSO MEDICAL MEDICAL R EQUIPME EQUIPME O2 CONC 1 E1390 [facility] D[place] 6 HOME KEY 85%/>02 MEDICAL CONC AT EQUIPME [facility] FLW RATE SEAT E0156 [facility] ATTACHMEN 6 T WALKER WALKER E0143 [facility] FOLDING 6 WHEELED ADJUSTABL E/FIXED HEIGHT ECG 23863 [place] TANIYA ABIMAEL ROUTINE 6 MEDICAL ECG SERV W/LEAST FOUNDATIO 12 LDS N I&R ONLY ECG 51635 [place] PELAEZ ROUTINE 6 MEDICAL NAN ECG SERV W/LEAST FOUNDATIO 12 LDS N I&R ONLY SBSQ 64992 [place] [facility] 6 MEDICAL KEYANA CARE/DAY SERV 25 FOUNDATIO MINUTES N RADIOLOGI 21350 [place] JAMES CON C 6 MEDICAL EXAMINATI SERV ON CHEST FOUNDATIO SINGLE N VIEW FRONTAL RADIOLOGI 42432 [place] WILLIEK C 6 MEDICAL AYA MAR EXAMINATI SERV ON CHEST FOUNDATIO SINGLE N VIEW FRONTAL SBSQ 97663 [place] [facility] 6 MEDICAL KEYANA CARE/DAY SERV 15 FOUNDATIO MINUTES N SBSQ 74524 [place] [facility] 6 MEDICAL KEYANA CARE/DAY SERV 15 FOUNDATIO MINUTES N RADIOLOGI 41581 [place] ARMENDARIZ JENNA C 6 MEDICAL EXAMINATI SERV ON CHEST FOUNDATIO SINGLE N VIEW FRONTAL RADIOLOGI 77614 [place] MAHMOOD LEATHA C 6 MEDICAL EXAMINATI SERV ON CHEST FOUNDATIO SINGLE N VIEW FRONTAL SBSQ 99929 [place] [facility] 6 MEDICAL CARE/DAY SERV 25 FOUNDATIO MINUTES N SBSQ 37679 [place] [facility] 6 MEDICAL CARE/DAY SERV 25 FOUNDATIO MINUTES N RADIOLOGI 26978 [place] MAHMOOD LEATHA C 6 MEDICAL EXAMINATI SERV ON CHEST FOUNDATIO SINGLE N VIEW FRONTAL ECG 62555 [place] [facility] ROUTINE 6 MEDICAL ECG SERV W/LEAST FOUNDATIO 12 LDS N I&R ONLY RADEX 72069 [place] [facility] ABDOMEN 1 6 MEDICAL SUSAN SERV ANTEROPOS FOUNDATIO TERIOR N VIEW ECG 81584 [place] [facility] ROUTINE 6 MEDICAL ECG SERV W/LEAST FOUNDATIO 12 LDS N I&R ONLY RADEX 29509 [facility] ABDOMEN 1 6 Y OF CAR [place] ANTEROPOS HOSPI TERIOR [place]IEW CRITICAL 25716 [place] [facility] CARE 6 MEDICAL ILL/INJUR SERV ED FOUNDATIO PATIENT N INIT 30-74 MIN RADIOLOGI 68129 [place] [facility] LEATHA C 6 MEDICAL EXAMINATI SERV ON CHEST FOUNDATIO SINGLE N VIEW FRONTAL CT THORAX 33785 [place] CON 6 MEDICAL W/CONTRAS SERV T FOUNDATIO MATERIAL N RADIOLOGI 25901 [place] WILLIEK C 6 MEDICAL AYA MAR EXAMINATI SERV ON CHEST FOUNDATIO SINGLE N VIEW FRONTAL SBSQ 39266 [place] [facility] 6 MEDICAL CARE/DAY SERV 25 FOUNDATIO MINUTES N RADEX 08500 [facility] ABDOMEN 1 6 Y [place] [address] [place] REYEZ CLEO ABDOMEN & 6 MEDICAL PELVIS SERV W/CONTRAS FOUNDATIO T N MATERIAL ECHO 91283 [place] [facility] TTH[facility] R-T 6 MEDICAL ERIKA 2D SERV W/WOM-MOD FOUNDATIO E COMPL N SPEC&COLR D ECG 45274 [facility] ROUTINE 6 MEDICAL ECG SERV W/LEAST FOUNDATIO 12 LDS N I&R ONLY INITIAL 82564 [place] [address] MEDICAL SUN KAYODE CARE/DAY SERV 30 FOUNDATIO MINUTES N SBSQ 23115 [place] [address] MEDICAL AND CARE/DAY SERV 25 FOUNDATIO MINUTES N RADIOLOGI 96471 [place] JAMES CON C 6 MEDICAL EXAMINATI SERV ON CHEST FOUNDATIO SINGLE N VIEW FRONTAL RADEX ABD 22639 [place] PAULA COMPL 6 MEDICAL JURGEN AQT ABD SERV ANNEL W/S/E/D FOUNDATIO VIEWS 1 N VIEW CH SBSQ 15462 [facility] 6 MEDICAL AND CARE/DAY SERV 25 FOUNDATIO MINUTES N RADIOLOGI 99026 [place] JAMES CON C 6 MEDICAL EXAMINATI SERV ON CHEST FOUNDATIO SINGLE N [place]IEW FRONTAL RADIOLOGI 23915 [place] J[place] CON C 6 MEDICAL EXAMINATI SERV ON CHEST FOUNDATIO SINGLE N [place] FRONTAL ECG 97140 [place] [facility] MEDICAL ECG SERV W/LEAST FOUNDATIO 12 LDS N I&R ONLY RADEX 82642 UNIVERS[facility] SHANELL ABDOMEN 1 6 Y OF [place] ANTEROPOS HOSPI [place] RADIOLOGI 80845 [place] WILLIEK C 6 MEDICAL AYA MAR EXAMINATI SERV ON CHEST FOUNDATIO SINGLE N [place]IEW FRONTAL RADIOLOGI 18238 [place] ROBBINS C 6 MEDICAL JESS EXAMINATI SERV ON CHEST FOUNDATIO SINGLE N VIEW FRONTAL RADEX 27374 [place] JONAHGUROVSK ABDOMEN 1 6 MEDICAL AYA MAR SERV ANTEROPOS FOUNDATIO TERIOR N VIEW RADIOLOGI 08681 [place] JONAHGUROVSK C 6 MEDICAL AYA MAR EXAMINATI SERV ON CHEST FOUNDATIO SINGLE N VIEW FRONTAL CT THORAX 86744 [place] ARMENDARIZ JENNA 6 MEDICAL W/CONTRAS SERV T FOUNDATIO MATERIAL N RADEX 08358 UNIVERSIT SHANELL ABDOMEN 1 6 Y [place] [address] [place] AYOOB AND ABDOMEN & 6 MEDICAL PELVIS SERV W/CONTRAS FOUNDATIO T N MATERIAL RADEX 81568 [place] ABDOMEN 1 6 Y [place] ANTEROPOS HOSPI [place] SBSQ [address]396 [place] [address] MEDICAL AND CARE/DAY SERV 25 FOUNDATIO MINUTES N RADIOLOGI 13891 [place] DELL CAR C 6 MEDICAL EXAMINATI SERV ON CHEST FOUNDATIO SINGLE N VIEW FRONTAL SBSQ 93950 [place] [address] MEDICAL AND CARE/DAY SERV 25 FOUNDATIO MINUTES N RADIOLOGI 92773 [place] JAMES CON C 6 MEDICAL EXAMINATI SERV ON CHEST FOUNDATIO SING[place] N [place] FRONTAL ECG 85028 [place] PELAEZ ROUTINE 6 MEDICAL NAN ECG SERV W/LEAST FOUNDATIO 12 LDS N I&R ONLY ECG 73532 [place] HUI MIKHAIL ROUTINE 6 MEDICAL ECG SERV W/LEAST FOUNDATIO 12 LDS N I&R ONLY ARTL 47347 [facility] CATHJ/CAN 6 Y OF Y OF NULJ [facility] MNTR/[facility] H[facility] SFUSION SPX PRQ SBSQ 90260 [facility] 6 MEDICAL RONNY CARE/DAY SERV 25 FOUNDATIO MINUTES N RPR 1ST 96808 [facility] 6 MEDICAL RONNY HRNA AGE SERV 5 YRS/> FOUNDATIO INCARCERA N KISHOR ANESTHESI 22941 [facility] BET A HERNIA 6 Y OF REPA[place] [facility] ABDOMEN NOS L[place] 63904 [place] HIEU SURG 6 MEDICAL FRANCO PATHOLOGY SERV FOUNDATIO GROSS&[place] [address] [place] HIEU SURG 6 MEDICAL FRANCO PATHOLOGY SERV FOUNDATIO GROSS&JESS N ROSCOPIC EXAM COMPREHEN 47609 [facility] AYALA SIVE 6 [facility] [place] [address] LUC[facility] AYALA AMYLASE 6 [facility] INC INC CREATINE 43663 LUCY AYALA [facility]ASE [facility] FRACTION INC INC ONLY INJECTION J2405 [facility] 6 [facility] ONDANSETR INC INC ON HCL PER 1 MG INJ J2543 LUCY AYALA PIPERACIL 6 [facility] YONATHAN INC INC SOD/TAZOB ACTAM SOD 1 G/0.125 G CREATINE 96710 LUCY AYALA KINASE 6 [facility] [place] [address] LUCY AYALA LIPASE 6 [facility] INC INC RADIOLOGI 59673 LUCY A[facility]ALA C 6 [facility] EXAMINATI INC INC ON CHEST SINGLE VIEW FRONTAL THER 00314 LUCY AYALA PROPH/DX 6 [facility] NJX EA INC INC SEQL IV PUSH SBST/DRUG FAC AMBULANCE A0429 [facility] SERVICE 6 AMBULANCE AMBULANCE BLS SERVICE SERVICE EMERGENCY TRANSPORT ECG 55245 LUCY AYALA ROUTINE 6 [facility] ECG INC INC W/LEAST 12 LDS TRCG ONLY W/O I&[place] [address] [place] FONT[place] ALL ABDOMEN & 6 MEDICAL PELVIS IMAGING W/O ASS CONTRAST MATERIAL ECG 89544 LUCY BEVERLY ROUTINE 6 [place] W/LEAST P 12 LDS I&[place] [address] LUCY AYALA INFUSION 6 [facility] THERAPY/P INC INC ROPHYLAXI S /DX 1ST TO 1 [place] [address] LUCY AYALA TROPONIN 6 [facility] QUANTITAT INC INC ARCENIO BLOOD 01555 LUCY AYALA COUNT 6 [facility] COMPLETE INC INC AUTO&AUTO DIFRNTL WBC GROUND A0425 [facility] PER SERVICE SERVICE STATUTE MILE INITIAL 82015 [facility] 6 MEDICAL CHR CARE/DAY SERV 50 FOUNDATIO MINUTES N BLOOD 98061 Darnell Wagner KIRILL JENNA COUNT 6 PILAR PLEITEZ COMPLETE PSC AUTO&AUTO DIFRNTL WBC COLLECTIO 14976 Darnell BELTRANES JENNA N VENOUS 6 PILAR PLEITEZ BLOOD PSC VENIPUNCT URE NEBULIZER E0570 MILDRED LEVY WITH 6 HOME HOME COMPRESSO MEDICAL MEDICAL R EQUIPME EQUIPME INITIAL 49849 [facility] 6 [facility] CARE/DAY INTERNAL 70 MED MINUTES ECG 82009 [facility] ROUTINE 6 [place] W/LEAST P 12 LDS I&R ONLY RADIOLOGI 31838 [facility] FRANC[facility] Wagner 6 MEDICAL EXAMINATI IMAGING ON CHEST ASS SINGLE VIEW FRONTAL NEBULIZER E0570 MILDRED LEVY WITH 6 HOME HOME COMPRESSO MEDICAL MEDICAL R EQUIPME EQUIPME PHRM Q0513 YOUR YOUR DISPENSIN 6 PHARMACY PHARMACY [facility] [employer] [facility] INHALATIO N RX; PER 30 DAYS COLLECTIO 14398 LUCY AYALA N VENOUS 6 [facility] BLOOD INC INC VENIPUNCT URE COMPREHEN 52944 LUCY AYALA SIVE 6 [facility] METABOLIC INC INC PANEL ALBUTEROL J7620 YOUR YOUR TO 2.5 6 PHARMACY PHARMACY [employer] LLC IPRATROPI UM BROM TO 0.5 MG ADMN SET A7003 YOUR YOUR SM VOL 6 PHARMACY PHARMACY NONFILTR [facility] PNEUMAT NEBULIZR DISPBL BLOOD 20913 LUCY AYALA COUNT 6 [facility] COMPLETE INC INC AUTO&AUTO DIFRNTL WBC RADIOLOGI 86216 LUCY Wagner EXAM 6 [facility] CHEST 2 INC INC VIEWS FRONTAL&L ATERAL RADIOLOGI 11082 TEX Wagner 6 MEDICAL EXAMINATI IMAGING ON CHEST ASS [...] TO 2.5 5 PHARMACY PHARMACY MG & [email or web address] IPRATROPI UM BROM TO 0.5 MG RADIOLOGI 81465 [facility] ALL C EXAM 5 MEDICAL CHEST 2 IMAGING VIEWS ASS FRONTAL&L ATERAL CT THORAX 53169 [facility] ALL 5 MEDICAL W/CONTRAS IMAGING T ASS MATERIAL RADIOLOGI 73059 [facility] ALL C EXAM 5 MEDICAL CHEST 2 IMAGING VIEWS ASS FRONTAL&L ATERAL ALBUTEROL J7620 YOUR YOUR TO 2.5 5 PHARMACY PHARMACY MG & [email or web address] IPRATROPI UM BROM TO 0.5 MG PHARM G0333 YOUR YOUR DISPEN 5 PHARMACY PHARMACY [employer] RX; INITIAL 30-DAY SUPPLY NEBULIZER E0570 MILDRDE LEVY WITH 5 HOME HOME COMPRESSO MEDICAL MEDICAL R EQUIPME EQUIPME CATARACT [address] [facility] REMOVAL 5 JAMILAH JAMILAH INSERTION [...] EQUIPME EQUIPME ARWAY PRESS DEVICE EA POLYSOM 14952 NEERAJ KERN MAR 6/>YRS 4 SLEEP 4/> NEUROSCIE ADDL NCES CENT AMA ATTND POLYSOM 86968 LUCY LUCY 6/>YRS 4 [facility] SLEEP 4/> INC INC ADDL AMA ATTND IMC/IMC G0461 LUCY AYALA PER 4 [facility] SPECIMEN; INC INC 1ST SNGL/[place] [address] LUCY LUCY INFUSION 4 [facility] THERAPY INC INC PROPHYLAX IS/DX EA HOUR SPECIAL 94723 LUCY LUCY STAIN 4 [facility] GROUP 1 INC INC MICROORGA NISMS I&R SPCL STN 94420 LUCY AYALA 2 I&R 4 [facility] EXCPT INC INC MICROORG/ ENZYME/[place] L[place] [address] LUCY LUCY SURG 4 [facility] PATHOLOGY INC INC GROSS&[place] [address] LUCY LUYC INFUSION 4 [facility] THERAPY/P INC INC ROPHYLAXI S /DX 1ST TO 1 HR SPMTRY 15087 LUCY AYALA W/VC 4 [facility] EXPIRATOR INC INC Y ALFREDO W/WO MXML VOL VNTJ ECHO 86364 LUCY AYALA TTHRC R-T 4 [facility] 2D INC INC W/WOM-MOD E COMPL SPEC&COLR D MYOCARDIA 89747 LUCY AYALA L SPECT 4 [facility] MULTIPLE INC INC STUDIES CV STRS 98026 [facility] TST 4 XERS&/OR RX CONT ECG W/O I&R MYOCARDIA 30421 TEX MA L 4 MEDICAL EMY PERFUSION IMAGING PLANAR ASS MULTIPLE STUDIES CV STRS 34672 GLENN ELIZABETH JR TST 4 DWI DWI XERS&/OR RX CONT ECG I&R ONLY RADIOLOGI 29574 TEX MA C EXAM 4 MEDICAL EMY CHEST 2 [...] DON DON CEFAZOLIN SODIUM 500 MG RADIOLOGI 18610 LUCY AYALA C EXAM 3 [facility] [...] EQUIPME EQUIPME FLWMTR HUMIDFR&M ASK CT THORAX 08238 [facility] W/O 2 MEDICAL EMY CONTRAST IMAGING MATERIAL ASS 3D 93992 [facility] RENDERING 2 MEDICAL EMY IMAGING W/INTERP& ASS POSTPROC DIFF WORK STATION PRTBLE E0431 MILDRED MILDRED GASEOUS 2 HOME HOME O2 SYS MEDICAL MEDICAL RENT; EQUIPME EQUIPME FLWMTR HUMIDFR&M ASK TOBACCO 85453 JAMES JAMES USE 2 DON DON CESSATION INTERMEDI ATE 3-10 MINUTES PRTBLE E0431 MILDRED MILDRED GASEOUS 2 HOME HOME O2 SYS MEDICAL MEDICAL RENT; EQUIPME EQUIPME FLWMTR HUMIDFR&M ASK PRTBLE E0431 MILDRED MILDRED GASEOUS 2 HOME HOME O2 SYS MEDICAL MEDICAL RENT; EQUIPME EQUIPME FLWMTR HUMIDFR&M ASK RADIOLOGI 88954 LUCY AYALA C EXAM 2 [facility] CHEST 2 INC INC VIEWS FRONTAL&L ATERAL SPMTRY 73682 MARIS POLLOCK W/VC 2 JAM JAM EXPIRATOR Y ALFREDO W/WO MXML VOL VNTJ PRTBLE E0431 MILDRED MILDRED GASEOUS 2 HOME HOME O2 SYS MEDICAL MEDICAL RENT; EQUIPME EQUIPME FLWMTR HUMIDFR&M ASK BLOOD 37080 LUCY AYALA GASES ANY 2 [facility] INC INC COMBINATI ON PH PCO2 PO2 CO2 HCO3 GLUCOSE 99667 LUCY AYALA BODY 2 [facility] FLUID INC INC OTHER THAN BLOOD IRON 60062 LUCY AYALA BINDING 2 [facility] CAPACITY INC INC LACTATE 40271 LUCY AYALA DEHYDROGE 2 [facility] NASE LDH INC INC PROTEIN 79518 LUCY AYALA XCPT 2 [facility] REFRACTOM INC INC ETRY SERUM PLASMA/WH L BLD SMR PRIM 28205 LUCY AYALA SRC 2 [facility] GRAM/GIEM INC INC SA STAIN BCT FUNGI/VAHID L RADIOLOGI 24068 LUCY AYALA C EXAM 2 [facility] CHEST 2 INC INC VIEWS FRONTAL&L ATERAL CT THORAX 84874 LUCY AYALA W/O 2 [facility] CONTRAST INC INC MATERIAL NONINVASI 55082 LUCY AYALA VE 2 [facility] EAR/PULSE INC INC OXIMETRY SINGLE DETER CYTP 72896 PATHOLOGY PATHOLOGY SLCTV 2 & & CELL CYTOLOGY CYTOLOGY ENHANCEME LAB LAB NT INTERPJ XCPT C/V CYANOCOBA 95232 LUCY AYALA BETTIE 2 [facility] VITAMIN INC INC B-12 THORACENT 47174 LUCY AYALA ESIS 2 [facility] PUNCTURE INC INC PLEURAL CAVITY ASPIRATIO N CUL BACT 99392 LUCY AYALA XCPT 2 [facility] URINE INC INC BLOOD/STO OL AEROBIC ISOL CULTURE 61034 LUCY AYALA BACTERIAL 2 [facility] ANY INC INC SOURCE ANAEROBIC ISO&ID CULTURE 56968 LUCY AYALA TUBERCLE/ 2 [facility] OTH INC INC ACID-FAST BACILLI ANY ISOL TISS FRED 25769 LUCY AYALA SLIDE 2 [facility] SAMPS INC INC SKN/HR/NL S FNGI/[place] [address] LUCY AYALA GUIDANCE 2 [facility] NEEDLE INC INC PLACEMENT COLLECTIO 05696 LUCY LUCY N VENOUS 2 [facility] BLOOD INC INC VENIPUNCT URE CELL 22833 LUCYJOAN BOBON COUNT 2 [facility] MISC BODY INC INC FLUIDS W/DIFFERE NTIAL COUNT CARBOXYHE 73890 LUCY AYALA MOGLOBIN 2 [facility] [place] [address] LUCY LUCY IRON 2 [facility] INC INC SPUTUM 31261 LUCY YAALA OBTAINING 2 [facility] SPEC INC INC AEROSOL INDUCED TX SPX ECG 44369 LUCY AYALA ROUTINE 2 [facility] ECG INC INC W/LEAST 12 LDS TRCG ONLY W/O I&R ECG 46899 RUSH BEVERLY ROUTINE 2 JENNA JENNA ECG W/LEAST 12 LDS I&R ONLY CT THORAX 60098 LUCY LUCY W/O 2 [facility] CONTRAST INC INC MATERIAL 3D 81319 [place] RENDERING 2 MEDICAL EMY IMAGING W/INTERP& ASS POSTPROC DIFF WORK STATION PRTBLE E0431 MILDRED BARBERRELL GASEOUS 2 HOME HOME O2 SYS MEDICAL MEDICAL RENT; EQUIPME EQUIPME FLWMTR HUMIDFR&M ASK PRTBLE E0431 MILDRED BARBERRELL GASEOUS 2 HOME HOME O2 SYS MEDICAL MEDICAL RENT; EQUIPME EQUIPME FLWMTR HUMIDFR&M ASK SPMTRY 55121 LUCY AYALA W/VC 2 [facility] EXPIRATOR INC INC Y ALFREDO W/WO MXML VOL VNTJ PRTBLE E0431 MILDRED BARBERRELL GASEOUS 2 HOME HOME O2 SYS MEDICAL MEDICAL RENT; EQUIPME EQUIPME FLWMTR HUMIDFR&M ASK PRTBLE E0431 MILDREDTEJINDER BARBERRELL GASEOUS 2 HOME HOME O2 SYS MEDICAL MEDICAL RENT; EQUIPME EQUIPME FLWMTR HUMIDFR&M ASK RADIOLOGI 94116 ERIKA JAMES C EXAM 2 DON DON CHEST 2 VIEWS FRONTAL&L ATERAL CT THORAX 92346 [place] [facility] 2 MEDICAL EMY W/CONTRAS IMAGING T ASS MATERIAL COMPREHEN 81539 COMBINED COMBINED SIVE 2 PHYSICIAN PHYSICIAN METABOLIC S LA S LA PANEL BLOOD 63741 COMBINED COMBINED COUNT 2 PHYSICIAN PHYSICIAN COMPLETE S LA S LA AUTO&AUTO DIFRNTL WBC LIPID 53291 COMBINED COMBINED PANEL 2 [place]IC[place] [address] COMBINED COMBINED PROSTATE 2 PHYSICIAN PHYSICIAN SPECIFIC S LA S LA ANTIGEN TOTAL PRTBLE E0431 MILDRED LEVY GASEOUS 2 HOME [...] EQUIPME EQUIPME FLWMTR HUMIDFR&M ASK PRTBLE E0431 MILDREDTEJINDER BARBERRELL GASEOUS 1 HOME HOME O2 SYS MEDICAL MEDICAL RENT; EQUIPME EQUIPME FLWMTR HUMIDFR&M ASK O2 CONC 1 E1390 [place] 1 HOME HOME 85%/>02 MEDICAL MEDICAL CONC AT EQUIPME EQUIPME PRSC FLW RATE O2 CONC 1 E1390 IMLDRED [place] 1 HOME HOME 85%/>02 MEDICAL MEDICAL CONC AT EQUIPME EQUIPME PRSC FLW RATE PRTBLE E0431 MILDRED MILDRED GASEOUS 1 HOME HOME O2 SYS MEDICAL MEDICAL RENT; EQUIPME EQUIPME [facility] HUMIDFR&M ASK PRTBLE E0431 MILDRED LEVY GASEOUS 1 HOME HOME O2 SYS MEDICAL MEDICAL RENT; EQUIPME EQUIPME [facility] HUMIDFR&M ASK O2 CONC 1 E1390 MILDRED LUIS [facility] 1 HOME HOME 85%/>02 MEDICAL MEDICAL CONC AT EQUIPME EQUIPME [facility] FLW RATE O2 CONC 1 E1390 MIL[place] 1 HOME MED HOME MED 85%/>02 EQUIP. L EQUIP. L CONC AT [facility] FLW RATE PRTBLE E0431 MILDRED LEVY GASEOUS 1 HOME MED HOME MED O2 SYS EQUIP. L EQUIP. L RENT; [facility] HUMIDFR&M ASK PRTBLE E0431 MILDRED LEVY GASEOUS 1 HOME MED HOME MED O2 SYS EQUIP. L EQUIP. L RENT; [facility] HUMIDFR&M ASK O2 CONC 1 E1390 MILDRED LUIS [facility] 1 HOME MED HOME MED 85%/>02 EQUIP. L EQUIP. L CONC AT [facility] FLW RATE O2 CONC 1 E1390 MILDRED LUIS [facility] 1 HOME MED HOME MED 85%/>02 EQUIP. L EQUIP. L CONC AT [facility] FLW RATE PRTBLE E0431 MILDRED LEVY GASEOUS 1 HOME MED HOME MED O2 SYS EQUIP. L EQUIP. L RENT; [facility] HUMIDFR&M [facility] PRTBLE E0431 MILDRED LEVY GASEOUS 1 HOME MED HOME MED O2 SYS EQUIP. L EQUIP. L RENT; [facility] HUMIDFR&M ASK O2 CONC 1 E1390 MILDRED LUIS [facility] 1 HOME MED HOME MED 85%/>02 EQUIP. L EQUIP. L CONC AT [facility] FLW RATE O2 CONC 1 E1390 MILDRED LUIS [facility] 1 HOME MED HOME MED 85%/>02 EQUIP. L EQUIP. L CONC AT [facility] FLW RATE PRTBLE E0431 MILDRED LEVY GASEOUS 1 HOME MED HOME MED O2 SYS EQUIP. L EQUIP. L RENT; [facility] HUMIDFR&M ASK PRTBLE E0431 MILDRED BARBERRELL GASEOUS 0 HOME MED HOME MED O2 SYS EQUIP. L EQUIP. L RENT; [facility] HUMIDFR&M ASK O2 CONC 1 E1390 [place] 0 HOME MED HOME MED 85%/>02 EQUIP. L EQUIP. L CONC AT [facility] FLW RATE PRTBLE E0431 MILDRED BARBRERELL GASEOUS 0 HOME MED HOME MED O2 SYS EQUIP. L EQUIP. L RENT; [facility] HUMIDFR&M ASK O2 CONC 1 E1390 [place] 0 HOME MED HOME MED 85%/>02 EQUIP. L EQUIP. L CONC AT [facility] FLW RATE PRTBLE E0431 MILDRED BARBERRELL GASEOUS 0 HOME MED HOME MED O2 SYS EQUIP. L EQUIP. L RENT; [facility] HUMIDFR&M ASK O2 CONC 1 E1390 [place] 0 HOME MED HOME MED 85%/>02 EQUIP. L EQUIP. L CONC AT [facility] FLW RATE O2 CONC 1 E1390 [place] 0 HOME MED HOME MED 85%/>02 EQUIP. L EQUIP. L CONC AT [facility] FLW RATE PRTBLE E0431 MILDRED LEVY GASEOUS 0 HOME MED HOME MED O2 SYS EQUIP. L EQUIP. L RENT; [facility] HUMIDFR&M ASK VIRUS 38940 [facility] CENTRIFUG 0 Y Y E [facility] ID IMFLUOR STAIN EA CULTURE 33672 [facility] FUNGI 0 Y [facility] EACH ORGANISM [facility] PRIM 59141 [facility] SRC 0 Y Y GRAM/GIEM [facility] SA STAIN BCT FUNGI/VAHID L INJECTION J2250 [facility] 0 Y Y MIDAZOLAM [facility] HCL PER 1 MG IAADI 12319 [facility] PNEUMOCUS 0 Y Y TIS [facility] CARINII CULTURE 56307 [facility] TUBERCLE/ 0 Y [facility] ACID-FAST BACILLI ANY ISOL SMR PRIM 85922 [facility] SRC 0 Y Y FLUORESCE [facility] NT&/AFS BCT FNGI PARASIT TISS FRED 80030 [facility] SLIDE 0 Y Y [facility] SKN/HR/NL S FNGI/ECTO PARASIT CUL BACT 03639 [facility] XCPT 0 Y Y URINE [facility] BLOOD/STO OL AEROBIC ISOL RADIOLOGI 26824 [facility] C 0 Y [facility] [place] FRONTAL BRNCHSC 39312 [facility] W/BRNCL 0 Y Y ALVEOLAR [facility] LAVAGE INJECTION J3010 [facility] FENTANYL 0 Y Y CITRATE [facility] 0.1 MG CELL 41154 [facility] COUNT 0 Y Y MISC BODY [facility] FLUIDS W/DIFFERE NTIAL COUNT IADNA NOS 03735 [facility] 0 Y Y AMPLIFIED [facility] PROBE TQ EACH ORGANISM VIRUS 21465 [facility] TISS CUL 0 Y [facility] ON CYTOPATHI C EFFECT CONCENTRA 58508 [facility] TION 0 Y Y INFECTIOU [facility] S AGENTS CYTP EVAL 64377 [facility] FINE 0 Y Y NEEDLE [facility] ASPIRATE INTERP & REPORT CYTP FINE 79309 [facility] NDL 0 Y Y ASPIRATE [facility] IMMT CYTOHIST ST[place] 1ST [place] [address] [facility] SURG 0 Y Y PATHOLOGY [facility] GROSS&JESS ROSCOPIC EXAM CULTURE 18515 [facility] FNGI 0 Y Y MOLD/YEAS [facility] T PRSMPTV OTH XCPT BLOOD SPECIAL 64536 [facility] STAIN 0 Y Y GROUP 1 [facility] MICROORGA NISMS I&R BRONCHOSC 61922 [facility] OPY 0 Y Y W/TRANSBR [facility] ONCHIAL LUNG BX 1 LOBE BRONCHOSC 15157 [facility] OPY 0 Y Y NEEDLE BX [facility] TRACHEA MAIN STEM&/BRO N O2 CONC 1 E1390 MIL[place] 0 HOME MED HOME MED 85%/>02 EQUIP. L EQUIP. L CONC AT [facility] FLW RATE PRTBLE E0431 MILDRED MILDRED GASEOUS 0 HOME MED HOME MED O2 SYS EQUIP. L EQUIP. L RENT; [facility] HUMIDFR&M ASK PHLEBOTOM 63071 COMBINED COMBINED Y 0 PHYSICIAN PHYSICIAN THERAPEUT S LA S LA IC SEPARATE PROCEDURE DUP-SCAN 10413 [place] [facility] XTR VEINS 0 MEDICAL EMY COMPLETE IMAGING ASS BILATERAL STUDY RADEX 86915 [place] [facility] ESOPHAGUS 0 MEDICAL EMY IMAGING ASS COLLECTIO 54604 LUCY LUCY N VENOUS 0 [facility] BLOOD INC INC VENIPUNCT URE COMPREHEN 85248 LUCY AYALA SIVE 0 [facility] METABOLIC INC INC PANEL PULMONARY 96252 [place] STRESS 0 MEDICAL JAM TESTING SERV SIMPLE FOUNDATIO BLOOD 77097 LUCY AYALA COUNT 0 [facility] COMPLETE INC INC AUTO&AUTO DIFRNTL WBC BRNCDILAT 09291 LUCY AYALA RSPSE 0 [facility] SPMTRY INC INC PRE&POST- BRNCDILAT ADMN CT THORAX 32466 [place] NE[place] W/O 0 MEDICAL KEY CONTRAST IMAGING MATERIAL ASS COMPREHEN 75578 COMBINED COMBINED SIVE 0 PHYSICIAN PHYSICIAN METABOLIC S LAB S LAB PANEL COLLECTIO 85362 COMBINED COMBINED N VENOUS 0 PHYSICIAN PHYSICIAN BLOOD S LAB S LAB VENIPUNCT URE 3D 33187 [place] RENDERING 0 MEDICAL KEY IMAGING W/INTERP& ASS POSTPROC DIFF WORK STATION RADIOLOGI 65300 [place] C EXAM 0 MEDICAL EMY CHEST 2 IMAGING VIEWS ASS FRONTAL&L ATERAL PRTBLE E0431 MILDRED MILDRED GASEOUS 0 HOME MED HOME MED O2 SYS EQUIP. EQU[facility]. [facility]ENT; [facility] ASK O2 CONC 1 E1390 MILDR[place] 0 HOME MED HOME MED 85%/>02 EQUIP. EQUIP. CONC AT [facility] FLW RATE INJECTION J1940 ERIKA JAMES, 0 DON R DON R FUROSEMID E UP TO 20 MG O2 CONC 1 E1390 MILDRED [place]Y DEL PORT 0 HOME MED HOME MED 85%/>02 EQUIP. EQUIP. CONC AT [facility] FLW RATE RADIOLOGI 96506 ERIKA JAMES C EXAM 0 DON R DON R CHEST 2 VIEWS FRONTAL&L ATERAL PRTBLE E0431 MILDRED LEVY GASEOUS 0 HOME MED HOME MED O2 SYS EQUIP. EQUIP. RENT; [facility] FLWMTR HUMIDFR&M ASK ECG 38100 ERIKA JAMES, ROUTINE 0 DON R DON R ECG W/LEAST 12 LDS W/I&R RADIOLOGI 68928 ERIKA JAMES C 0 DON R DON R EXAMINATI ON CHEST [facility] 21870 ERIKA JAMES, DISCHARGE 0 DON R DON R DAY MANAGEMEN T 30 MIN/< SBSQ 27625 [facility] 0 DON R DON R CARE/DAY 25 MINUTES RADIOLOGI 16518 [facility] 0 MEDICAL JANE P CHEST 2 IMAGING VIEWS ASSOCIATE FRONTAL&L S ATERAL SBSQ 89090 [facility] 0 DON R DON R CARE/DAY 25 MINUTES [facility] 49540 [facility] 0 DON R DON R CARE/DAY [address] THORAX 30051 [place] [facility], 0 MEDICAL SHASHI W/CONTRAS IMAGING T ASSOCIATE MATERIAL S 3D 62253 [place], RENDERING 0 MEDICAL SHASHI IMAGING W/INTERP& ASSOCIATE POSTPROC S DIFF WORK STATION SBS 64037 [facility] 0 DON R DON R CARE/DAY 25 MINUTES SBSQ 83516 [facility] 0 DON R DON R CARE/DAY 25 MINUTES RADIOLOGI 03344 ERIKA JAMES C 0 DON R DON R EXAMINATI ON CHEST SINGLE VIEW FRONTAL INITIAL 79717 [facility] R DON R CARE/DAY 50 MINUTES RADIOLOGI 76230 Kristy OROSCO EXAM 0 MEDICAL SHASHI CHEST 2 IMAGING VIEWS ASSOCIATE FRONTAL&L S ATERAL OPHTH 91026 [facility] 9 DONTE A DONTE A XM&EVAL COMPRHNSV ESTAB PT 1/> OPHTH 51430 [facility] NINI, MEDICAL 9 VITREOUS CALLIE W XM&EVAL ASSOCIATE INTERMEDI S O ATE ESTAB PT SCANNING 06706 [facility] NINI, OPHTHALMI 9 VITREOUS CALLIE W C IMAGING ASSOCIATE S O POSTERIOR SGM UNI INJECTION [id number] ERIKA JAMES, 8 DON R DON R METHYLPRE DNISOLONE ACETATE 80 MG SCANNING 61930 [facility] NINI, OPHTHALMI 8 VITREOUS CALLIE W C IMAGING ASSOCIATE S O POSTERIOR SGM UNI OPHTH 72390 [facility]INI, MEDICAL 8 VITREOUS CALLIE W XM&EVAL ASSOCIATE INTERMEDI S O ATE ESTAB PT INJECTION [id number] ERIKA JAMES, 8 DON R DON R METHYLPRE DNISOLONE ACETATE 80 MG OPHTH 10582 [facility] 8 DONTE A DONTE A XM&EVAL COMPRHNSV ESTAB PT 1/> SCANNING 31350 RETINA & NINI, OPHTHALMI 8 VITREOUS CALLIE W C IMAGING ASSOCIATE S O POSTERIOR SGM UNI OPHTH 67102 [facility] NINI, MEDICAL 8 VITREOUS CALLIE W XM&EVAL ASSOCIATE INTERMEDI S O ATE ESTAB PT INJECTION [id number] ERIKA JAMES, 8 DON R DON R METHYLPRE DNISOLONE ACETATE 80 MG RADIOLOGI 46091 ERIKA JAMES EXAM 8 DON R DON R CHEST 2 VIEWS FRONTAL&L ATERAL SCANNING 18743 [facility] RET[facility] & OPHTHALMI 8 VITREOUS VITREOUS C IMAGING ASSOCIATE ASSOCIATE S O S O POSTERIOR SGM UNI OPHTH 37073 [facility] & MEDICAL 8 VITREOUS VITREOUS XM&EVAL ASSOCIATE ASSOCIATE INTERMEDI S O S O ATE ESTAB PT OPHTH 36411 [facility] & MEDICAL 8 VITREOUS VITREOUS XM&EVAL ASSOCIATE ASSOCIATE INTERMEDI S O S O ATE ESTAB PT SCANNING 07250 [facility] RET[facility] & OPHTHALMI 8 VITREOUS VITREOUS C IMAGING ASSOCIATE ASSOCIATE S O S O POSTERIOR SGM UNI INJECTION J1100 ERIKA JAMES, 8 DON R DON R DEXAMETHO SONE SODIUM PHOSPHATE 1 MG Encounters Encounter Start End Date Code Location Performer Type Date OFFICE 47554 [facility] OUTPATIEN 7 7 PHYSICIAN T VISIT S GROUP 25 MINUTES [facility] OFF[facility] 02845 [facility] OUTPATI[facility] 7 7 PHYSICIAN T VISIT S GROUP 40 MINUTES OFFICE 82415 [facility] OUTPATI[facility] 7 7 P[facility]AR [place] T VISIT PSC 15 MINUTES OFFICE 12220 [facility] 7 Y OF CK T VISIT [place] 25 HOSPI MINUTES OFFICE 61455 [facility] OUTPATIEN 7 7 [facility] [place] T VISIT PSC 15 MINUTES [facility]OSP[facility] LUC[facility] - 7 7 [facility]PATIENT INC OFFICE 33226 [facility] OUTPATI[facility] 7 7 P[facility]AR [place] T VISIT PSC 15 MINUTES OFFICE 39118 [facility] OUTPATI[facility] 7 7 P[place]AR [place] T VISIT PSC 15 MINUTES OFFICE 29596 [facility] OUTPATI[facility] 7 7 [facility] [place] T VISIT PSC 15 MINUTES HOSPITAL LUCY - 6 6 [facility] T [place] 82556 [place] OUTPATIEN 6 6 MEDICAL JAM T VISIT [facility] 25 FOUNDATIO MINUTES N OFFICE 20932 [facility] [place] OUTPATIEN 6 6 PHYSICIAN RITA T VISIT S GROUP 10 MINUTES HOSPITAL LUCY - 6 6 [facility] OUTPATIEN INC T OFFICE 70709 [facility] OUTPATIEN 6 6 [facility] VISIT HOSPITAL 10 P MINUTES OFFICE 98575 A Kristy ROY OUTPATIEN 6 6 PILAR PLEITEZ T VISIT PSC 15 MINUTES OFFICE 56886 [place] [facility] OUTPATIEN 6 6 MEDICAL JAM T VISIT SERV 15 FOUNDATIO MINUTES N OFFICE 87814 [facility] 6 6 [facility] HOSPITAL MIN[facility] P OFFICE 26068 [facility] ALLRAN JR OUTPATIEN 6 6 PHYSICIAN RITA T VISIT S GROUP 15 MINUTES HOSPITAL LUCY - 6 6 [facility] OUTPATI[facility] INC T OFFICE 58923 [facility] OUTPATIEN 6 6 PHYSICIAN RITA T NEW 45 S GROUP MINUTES OFFICE 76864 [place] OUTPATIEN 6 6 MEDICAL JAM T VISIT SERV 25 FOUNDATIO MINUTES N HOSPITAL LUCY - 6 6 [facility] OUTPATIEN INC T OFFICE 43316 A Kristy ROY OUTPATIEN 6 6 PILAR PLEITE[place] T VISIT PSC 15 MINUTES OFFICE 97875 [place]PATI[facility] 6 6 MEDICAL JAM T VISIT SERV 25 FOUNDATIO MINUTES N EMERGENCY 01536 [facility] Y OF MADALYN VISIT [facility] LUCY - 6 6 [facility] OUTPATIEN INC T OFFICE 68719 A Kristy WEST OUTPATIEN 6 6 P[place] [place]LE[place] T VISIT PSC 15 MINUTES OFFICE 54645 A Kristy WEST OUTPATIEN 6 6 [facility] [place] T VISIT PSC 15 MINUTES [facility]OSPITAL LUCY - 6 6 [facility] INPATIENT INC OFFICE 82852 [place] [facility] OUTPATI[facility] 6 6 MEDICAL JAM T VISIT SERV 40 FOUNDATIO MINUTES N OFFICE 84054 [place] [facility] [facility]PATI[facility] 6 6 MEDICAL T VISIT SERV 25 FOUNDATIO MINUTES [facility]OSPITAL LUCY [facility] 6 6 [facility] OFFICE 98939 [place] [facility] [facility]PAT[facility] 6 6 MEDICAL JAM T VISIT SERV 15 FOUNDATIO MINUTES [facility] LUCY - 5 5 [facility] - 5 5 [facility] LUCY - 5 5 [facility] OUTPATIEN INC OFFICE 35462 A C FIELD AMB OUTPATIEN 5 5 P[facility]AR PLEITEZ T VISIT PSC 15 MINUTES OFFICE 68519 A C FIELD AMB OUTPATIEN 4 4 [facility] T VISIT PSC 15 MINUTES [facility]OSPITAL LUCY - 4 4 [facility] 4 4 [facility]EN [facility] LUCY - 4 4 [facility] LUCY [facility] 4 4 [facility] LUCY - 4 [facility] - [facility] - [facility] OFFICE [id number] FIELD AMB FIELD AMB OUTPATIEN 4 4 T VISIT 15 MINUTES OFFICE 11231 FIELD AMB FIELD AMB OUTPATIEN 3 3 T VISIT 15 MINUTES OFFICE 70745 A C FIELD AMB OUTPATIEN 3 3 PILAR PLEITEZ T NEW 30 PSC MINUTES OFFICE 78906 JAMES JAMES OUTPATIEN 3 3 DON DON T VISIT 15 MINUTES [facility] L[facility] - [facility] 3 [facility] OFFICE 41404 ERIKA MELENDREZS OUTPATIEN 3 3 DON DON T VISIT 15 MINUTES [facility] LUC[facility] - 2 2 [facility] OFFICE 17967 ERIKA MELENDREZS OUTPATIEN 2 2 DON DON T [facility]ISIT 15 MINUTES [facility] LUCY - 2 2 [facility] LUCY - 2 2 [facility] 2 2 [facility] OUTPATIEN [facility] OFFICE 05583 ERIKA JAMES OUTPATIEN 2 2 DON DON T VISIT 15 MINUTES OFFICE 98742 ERIKA MELENDREZS OUTPATIEN 1 1 DON DON T VISIT 15 MINUTES OFFICE 43139 ERIKA MELENDREZS OUTPATIEN 1 1 DON DON T VISIT 15 MINUTES OFFICE 63744 ERIKA MELENDREZS OUTPATIEN 1 1 DON DON T VISIT 15 MINUTES OFFICE 50044 ERIKA MELENDREZS OUTPATIEN 1 1 DON DON T VISIT 15 MINUTES [facility] OFFICE 85199 JAMESERIKA VELASCO OUTPATIRYLEE 0 0 DON R DON R T VISIT 15 MINUTES OFFICE 72233 ERIKA JAMES OUTPATIRYLEE 0 0 DON R DON R T VISIT 25 MINUTES OFFICE 57306 ERIKA JAMES OUTPATIRYLEE 0 0 DON R DON R T VISIT 15 MINUTES OFFICE 12933 ERIKA JAMES OUTPATIEN 8 8 DON R DON R T VISIT 15 MINUTES OFFICE 06354 ERIKA JAMES OUTPATIEN 8 8 DON R DON R T VISIT 15 MINUTES OFFICE 94964 ERIKA JAMES OUTPATIEN 8 8 DON R DON R T VISIT 15 MINUTES OFFICE 73962 ERIKA JAMES OUTPATIEN 8 8 DON R DON R T VISIT 15 MINUTES OFFICE 90394 ERIKA JAMES OUTPATIEN 8 8 DON R DON R T VISIT 15 MINUTES
--- OUTSIDE RECORDS SUMMARY | 2016-12-05 18:57 | External Medical Summary Rpt ---
Author Author , RANDALL PEREIRA Address Unknown Phone [email or web address] ([employer]) Care Team Providers Care Strong Nitric Operator Name Role Phone A Kristy QUEZADA MD PSC, A Unavailable Unavailable Kristy QUEZADA MD PSC [facility], [facility] Unavailable Unavailable [facility] Unavailable Unavailable SOL SUN KAYODE, Unavailable Unavailable SOL USN KAYODE ALLRAN JR RITA, ALLRAN Unavailable Unavailable JR RITA AYOOB AND, AYOOB AND Unavailable Unavailable BEINEKE, BEINEKE Unavailable Unavailable TANYA AND, TANYA Unavailable Unavailable AND BESSON JENNA, BESSON Unavailable Unavailable JENNA WALLACE JAMILAH, Unavailable Unavailable WALLACE JAMILAH WALLACE JAMILAH, Unavailable Unavailable WALLACE JAMILAH FONTANEZ, FONTANEZ Unavailable Unavailable FONTANEZ ALL, FONTANEZ ALL Unavailable Unavailable ROBBINS JESS, ROBBINS Unavailable Unavailable JESS [facility] Unavailable Unavailable SERVICE, [facility]available Unavailable SERVICE, [facility] Unavailable Unavailable [place], [...] Unavailable TAYLOR KEYANA, TAYLOR Unavailable Unavailable KEYANA [facility] Unavailable Unavailable INC, [facility] Unavailable Unavailable HOSPITAL P, [facility] P DONTE RUIZ, Unavailable Unavailable DONTE RUIZ [facility], Unavailable Unavailable [facility] ARMENDARIZ JENNA, ARMENDARIZ JENNA Unavailable Unavailable HUI MIKAHIL, HUI MIKHAIL Unavailable Unavailable BECKY MAR, BECKY Unavailable Unavailable [facility] NINI, CALLIE W, Unavailable Unavailable NINI, CALLIE W [facility] Un[facility] GLENN JR, GLENN JR Unavailable Unavailable GLENN JR DWI, GLENN Unavailable Unavailable JR DWI LICKING JOANNA Unavailable Unavailable [facility], [facility] JAMES CON, JAMES CON [...] PHARM #[id number] [facility] Unavailable Unavailable [id number] # [id number], [facility] [id number] # [id number] TANIYA ABIMAEL, TANIYA ABIMAEL Unavailable [...] Unavailable MADALYN OTTO SUSAN, OTTO Unavailable Unavailable [facility], Unavailable Unavailable [facility] HIEU FRANCO, HIEU Unavailable Unavailable [facility], Unavailable [facility]available [facility], Unavailable Unavailable [facility] MARINA NIXON, Unavailable Unavailable MARINA NIXON Purpose Continuity of Care Document - 04-25-2007 through 2016 Problems Code Diagnosis DOS Provider Status 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 10-09-2016 [facility] E785 HYPERLIPIDE 10-04-2016 [facility] W[facility]MAR PHYSICIANS UNSPECIFIED GROUP I119 HYPERTENSIV 10-04-2016 [facility] E HEART PHYSICIANS DISEASE GROUP WITHOUT HEART FAILURE 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 J449 CHRONIC 10-04-2016 [facility] OBSTRUCTIVE PHYSICIANS PULMONARY GROUP DISEASE UNS R0600 DYSPNEA 10-04-2016 [facility] UNSPECIFIED PHYSICIANS GROUP R0602 SHORTNESS 09-14-2016 [place] OF [facility] R918 OTHER 09-14-2016 [place] NONSPECIFIC MEDICAL ABNORMAL IMAGING ASS FINDING OF LUNG FIELD R938 ABNORMAL 09-14-2016 [facility] FIND ON DX [facility] IMAGING OT INC SPEC BODY STRCT R9431 ABNORMAL 09-14-2016 [facility] ELECTROCARD [facility] IOGRAM INC J410 SIMPLE 09-04-2016 A Kristy GARLAND MD PSC BRONCHITIS I4891 UNSPECIFIED 09-02-2016 [facility] ATRIAL HOME FIBRILLATIO MEDICAL N EQUIPME I200 UNSTABLE 08-27-2016 [facility] ANGINA PHYSICIANS GROUP I10 ESSENTIAL 08-25-2016 [facility] P N [id number] 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 R634 ABNORMAL 01-11-2016 [facility] WEIGHT LOSS [facility] INC R1110 VOMITING 01-09-2016 [facility] UNSPECIFIED PHYSICIANS GROUP K828 OTHER 01-02-2016 [place] SPECIFIED MEDICAL DISEASES OF IMAGING ASS GALLBLADDER R630 ANOREXIA 01-02-2016 [facility] K921 MELENA 11-07-2015 [facility] PHYSICIANS GROUP K5710 DIVERTICULO 11-03-2015 [place] SIS SM MEDICAL INTEST W/O IMAGING ASS PERF/ABSC W/O BLEED R195 OTHER FECAL 11-03-2015 [place] [facility] ABNORMALITI IMAGING ASS ES K60502 LYMPHOCYTOS 10-26-2015 [facility] IS PATHOLOGY SYMPTOMATIC LAB NETW J690 PNEUMONITIS 10-26-2015 [facility] DUE TO SERV INHALATION [facility] OF FOOD AND VOMIT Z09 ENC F/U 10-20-2015 A Kristy QUEZADA EXAM AFTR PSC CMPL TX OTH THAN MALIG NEOPLSM B370 CANDIDAL 10-19-2015 [facility] STOMATITIS SERV [facility] R112 NAUSEA WITH 10-19-2015 [facility] VOMITING SERV UNSPECIFIED FOUNDATION I509 HEART 10-15-2015 [facility] FAILURE HOME UNSPECIFIED MEDICAL EQUIPME R531 WEAKNESS 09-20-2015 [facility] 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[facility] R BLOCK SERV [facility] I4510 UNSPECIFIED 09-15-2015 [facility] RIGHT SERV BUNDLE-BRAN FOUNDATION CH BLOCK R001 BRADYCARDIA 09-15-2015 [facility] UNSPECIFIED [facility] B965 PSEUDOMONAS 09-14-2015 [facility] CAUSE OF SERV DZ [facility] CLASSIFIED ELSEWHERE J9600 ACUTE 09-14-2015 [facility] RESPIRATORY SERV FAIL UNS FOUNDATION HYPOXIA/HYP ERCAPNIA J9811 ATELECTASIS 09-14-2015 [facility] J95089 ENCOUNTER 09-14-2015 [facility] SURG SERV AFTERCARE [facility] FLW SURG DIGESTIVE SYS Z049 ENCOUNTER 09-13-2015 [facility] EXAMINATION SERV &OBSERVATIO FOUNDATION N FOR UNS REASON K5900 CONSTIPATIO 09-12-2015 [facility] N SERV UNSPECIFIED FOUNDATION R140 ABDOMINAL 09-10-2015 [place] [facility] DISTENSION SERV GASEOUS [facility] R0989 OTH SPEC SX 09-09-2015 [facility] & SIGNS SERV INVLV THE FOUNDATION CIRC & RESP SYS A419 SEPSIS 09-08-2015 [place] [facility] UNSPECIFIED SERV ORGANISM [facility]ATION E873 ALKALOSIS 09-08-2015 [facility] E876 HYPOKALEMIA 09-08-2015 [facility] J90 PLEURAL 09-08-2015 [place] [facility] EFFUSION SERV NOT FOUNDATION ELSEWHERE CLASSIFIED J9620 ACUTE 09-08-2015 [facility] CHRONIC SERV RESP FAIL FOUNDATION UNS HYPOXIA/HYP ERCAPNIA J984 OTHER 09-08-2015 [facility] DISORDERS SERV OF LUNG FOUNDATION R109 UNSPECIFIED 09-08-2015 [facility] ABDOMINAL SERV PAIN F[facility] Z4682 ENCOUNTER 09-08-2015 [facility] ADJUST HOSPI NON-VASCULA R CATHETER 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-07-2015 [facility] DISORDER SERV UNSPECIFIED FOUNDATION I517 CARDIOMEGAL 09-07-2015 [facility] Y SERV [facility] I5189 OTHER 09-07-2015 [facility] ILL-DEFINED SERV HEART [facility] DISEASES R0902 HYPOXEMIA 09-06-2015 [facility] R0689 OTHER 09-02-2015 [facility] ABNORMALITI SERV ES OF FOUNDATION BREATHING J942 HEMOTHORAX 08-30-2015 [facility] J948 OTHER 08-30-2015 [facility] SPECIFIED SERV PLEURAL FOUNDATION CONDITIONS L538 OTHER 08-30-2015 [facility] SPECIFIED SERV ERYTHEMATOU FOUNDATION S CONDITIONS Z9889 OTHER 08-30-2015 [facility] SPECIFIED SERV POSTPROCEDU FOUNDATION RAL STATES 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 K4030 UNILAT 08-25-2015 [facility] INGUINAL [facility] NGUYEN W/OBST HOSPI W/O GANGRN NOT RECUR K4040 UNILAT 08-25-2015 [place] [facility]AL [facility] NGUYEN FOUNDATION W/GANGREN NOT SPEC RECUR Z7901 CORRECTION 08-25-2015 [facility] CURRENT USE SERV OF FOUNDATION ANTICOAGULA NTS R47656 ELEVATED 08-24-2015 [facility] BLOOD [facility] P UNSPECIFIED K4090 UNILAT 08-24-2015 [place] [facility] INGUINAL SERV NGUYEN W/O FOUNDATION OBST/GANGRE N NOT RECUR K5660 UNSPECIFIED 08-24-2015 [facility] SERVICE OBSTRUCTION R1031 RIGHT LOWER 08-24-2015 [facility] PAIN HOSPI 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 J189 PNEUMONIA 08-03-2015 [place] UNSPECIFIED MEDICAL ORGANISM IMAGING ASS J439 EMPHYSEMA 08-03-2015 [place] UNSPECIFIED JOANNA INTERNAL MED J929 PLEURAL 08-03-2015 [place] [facility] WITHOUT IMAGING ASS ASBESTOS R002 PALPITATION 08-03-2015 [facility] S SERV [facility] R031 NONSPECIFIC 08-03-2015 [facility] LOW SERV BLOOD-PRESS [facility]ATION URE READING R42 DIZZINESS 08-03-2015 [facility] AND SERV GIDDINESS FOUNDATION 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 08-03-2015 [place] [facility]ANNA SUPPLEMENTA INTERNAL L OXYGEN MED J42 UNSPECIFIED 07-13-2015 [place] CHRONIC MEDICAL BRONCHITIS IMAGING ASS Z7722 CONTACT W/ 07-13-2015 [facility] & SUSPECTED SERV EXPOS [facility] EM[facility]PART[facility] ENVIR TOBACCO SMOKE J40 BRONCHITIS 03-25-2015 [place] NOT MEDICAL SPECIFIED IMAGING ASS ACUTE OR CHRONIC R091 PLEURISY 01-21-2015 [facility] 4280 CONGESTIVE 01-14-2015 [facility] HEART HOME FAILURE MEDICAL UNSPECIFIED EQUIPME 55407 OBSTRUCTIVE 01-14-2015 [facility] WITHOUT EXACERBAT 496 CHRONIC 01-14-[address] [facility] [address] HOME OBSTRUCTION MEDICAL NEC EQUIPME 34781 NUCLEAR 12-28-2014 [facility] SCLEROSIS JAMILAH 82052 OBST 09-06-2014 A Kristy QUEZADA CHRONIC PSC BRONCHITIS W/ACUTE BRONCHITIS 63873 LOSS OF 09-06-2014 A Kristy QUEZADA WEIGHT PSC 48544 OTHER CHEST 09-06-2014 A Kristy QUEZADA PAIN PSC 81608 OBSTRUCTIVE 09-05-2014 [facility] SLEEP HOME APNEA MEDICAL EQUIPME 7242 LUMBAGO 04-01-2014 A Kristy QUEZADA MD PSC V0382 NEED PROPH 04-01-2014 A Kristy QUEZADA VACCINATION PSC AGAINST STREP PNEUMONE 26624 ATRIAL 01-13-2014 [facility] FIBRILLATIO [facility] N INC 10051 REFLUX 01-13-2014 [facility] ESOPHAGITIS [facility] INC 87126 UNS 01-13-2014 [facility] GASTRITIS&G [facility] ASTRODUODIT INC IS W/O MENTION HEMORR 12651 ABDOMINAL 01-13-2014 [facility] PAIN, [facility] GENERALIZED INC V5869 LONG-TERM 01-13-2014 [facility] (CURRENT) [facility] USE OF INC OTHER MEDICATIONS 86019 CHEST PAIN 11-24-2013 [facility] UNSPECIFIED [facility] INC 5110 PLEURISY 10-29-2013 [place] WITHOUT MEDICAL MENTION IMAGING ASS EFFUS/CURRE NT TB 7862 COUGH 10-29-2013 [facility] 31737 INSOMNIA 12-16-2012 A Kristy QUEZADA UNSPECIFIED PSC 03932 OTHER 12-16-2012 A Kristy QUEZADA MALAISE AND PSC FATIGUE 03433 FEVER 05-23-2012 JAMES UNSPECIFIED DON 66474 WHEEZING 05-23-2012 JAMES DON 1120 CANDIDIASIS 05-21-2012 J[facility] OF MOUTH DON 54184 OTHER 05-21-2012 [facility] DISEASES OF EMY LUNG NOT ELSEWHERE CLASSIFIED 4940 BRONCHIECTA 01-28-2012 [place] SIS WITHOUT MEDICAL ACUTE IMAGING ASS EXACERBATIO N 5119 UNSPECIFIED 01-28-2012 [place] PLEURAL MEDICAL EFFUSION IMAGING ASS 50596 OTHER 01-28-2012 [facility] NONSPECIFIC [facility] ABNORMAL INC FINDING OF LUNG FIELD 84215 OSTEOARTHRO 01-02-2012 JAMES S INVLV MX DON SITES BUT [place]C [place] 88604 OBSTRUCTIVE 11-12-2011 [facility] CHRONIC [facility] BRONCHITIS INC WITH EXACERBATIO N 68747 ESOPHAGEAL 11-12-2011 [facility] REFLUX [facility] INC 2859 UNSPECIFIED 10-05-2011 [facility] ANEMIA [facility] INC 5180 PULMONARY 10-05-2011 [place] COLLAPSE [facility] 486 PNEUMONIA, 09-28-2011 [place] ORGANISM MEDICAL UNSPECIFIED IMAGING ASS 5070 PNEUMONITIS 09-28-2011 [place] DUE TO JAM INHALATION OF FOOD OR VOMITUS 38919 SHORTNESS 09-28-2011 [facility] OF BREATH [facility] INC 33308 ABDOMINAL 09-28-2011 [facility] PAIN, [facility] EPIGASTRIC INC V1261 PERSONAL 09-28-2011 [place] HISTORY JAM PNEUMONIA RECURRENT 50974 PNEUMONIA 06-08-2011 JAMES DUE TO DON OTHER SPECIFIED BACTERIA 2724 OTHER AND 05-11-2011 COMBINED UNSPECIFIED PHYSICIANS [place] HYPERLIPIDE WILMAR 2768 HYPOPOTASSE 05-11-2011 [facility]ED [place] PHYSICIANS [place] 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 6019 UNSPECIFIED 05-11-2011 [place] [address] PAIN IN 05-11-2011 COMBINED JOINT, PHYSICIANS MULTIPLE LA SITES 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 5183 PULMONARY 11-28-2009 [facility] A 03581 ACUTE 11-28-2009 [facility] RESPIRATORY SERV FAILURE FOUNDATIO 7856 ENLARGEMENT 11-28-2009 [facility] NODES 7931 NONSPEC 11-28-2009 [facility] FIND RAD SERV OTH EXAM FOUNDATIO BODY STRUCT LUNG FIELD V1582 PERS HX 11-28-2009 [facility] TOBACCO USE [facility] PRESENTING HAZAR[facility] V7282 PRE-OPERATI 11-28-2009 [facility] VE SERV RESPIRATORY FOUNDATIO EXAMINATION 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 01135 DYSPHAGIA 11-18-2009 [place] UNSPECIFIED MEDICAL IMAGING ASS 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, 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 56832 OSTEOARTHRO 08-23-2009 ERIKA, SIS UNSPEC DON R WHETHER GEN/LOC LOWER LEG 08261 OSTEOARTHRO 08-23-2009 ERIKA, S UNSPEC DON R GEN/LOC OTH SPEC SITES 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 A N OF RETINA UNSPECIFIED 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 07-20-2008 RETINA & 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 91172 EXUDATIVE 07-20-2008 [facility] & SENILE VITREOUS MACULAR ASSOCIATES DEGENERATIO O N OF RETINA 09835 CRYSTALLINE 07-20-2008 RETINA & DEPOSITS VITREOUS IN VITREOUS ASSOCIATES O 4610 ACUTE 02-27-2008 JAMES, MAXILLARY DON R SINUSITIS 4659 ACUTE URIS 02-27-2008 ERIKA, OF DON R UNSPECIFIED SITE 8472 LUMBAR 11-14-2007 ERIKA, SPRAIN AND DON R STRAIN 4660 ACUTE 08-02-2007 ERIKA, BRONCHITIS DON R 4871 INFLUENZA 07-04-2007 ERIKA, WITH OTHER DON R RESPIRATORY MANIFESTATI ONS 56601 PAIN IN 04-25-2007 ERIKA, JOINT, DON R SHOULDER REGION 56451 UNSPECIFIED 04-25-2007 ERIKA, SYNOVITIS DON R AND [...] ET 03 93 8 # 03 93 KS 00 04 04 00 12 6 RI [...] YOUR YOUR SM VOL 7 PHARMACY PH[facility]ACY [facility] PNEUMAT NEBULIZR DISPBL ECG 48899 [facility] ROUTINE 7 PHYSICIAN ECG S GROUP W/LEAST 12 LDS I&[place] [address] [facility] A[facility]ALA UREA 7 [facility] NITROGEN INC INC QUANTITAT ARCENIO CT THORAX 62530 [facility] AYALA 7 [facility] W/CONTRAS INC INC T MATERIAL CREATININ 70825 [facility] AYALA E BLOOD 7 [facility] INC ALBUTEROL J7620 YOUR YOUR TO 2.5 7 PHARMACY PHARMACY MG & [facility] IPRATROPI UM BROM TO 0.5 MG ADMN SET A7003 YOUR YOUR SM VOL 7 PHARMACY PHARMACY [facility] PNEUMAT NEBULIZR DISPBL ALBUTEROL J7620 A C A C TO 2.5 7 PILAR QUEZADA MD MG & PSC PSC IPRATROPI UM BROM TO 0.5 MG ECG 96184 [facility] ROUTINE 7 PHYSICIAN ECG S GROUP W/LEAST 12 LDS I&R ONLY O2 CONC 1 E1390 [facility] 7 HOME HOME 85%/>02 MEDICAL MEDICAL CONC AT EQUIPME EQUIPME [facility] FLW RATE R & L HRT 33283 [facility] CATH 7 PHYSICIAN WINJX HRT S GROUP ART& L VENTR IMG RADIOLOGI 83989 [facility] 7 MEDICAL EXAMINATI IMAGING ON CHEST ASS SINGLE VIEW FRONTAL ECG 35624 [facility] ELIZABETH JR ROUTINE 7 [facility] W/LEAST P 12 LDS I&R ONLY ALBUTEROL J7620 YOUR YOUR TO 2.5 7 PHARMACY PHARMACY MG & [facility] LLC IPRATROPI UM BROM TO 0.5 MG ADMN SET A7003 YOUR YOUR SM VOL 7 PHARMACY PHARMACY [facility] PNEUMAT NEBULIZR DISPBL O2 CONC 1 E1390 [facility] 7 HOME HOME 85%/>02 MEDICAL MEDICAL CONC AT EQUIPME EQUIPME [facility] FLW RATE O2 CONC 1 E1390 [facility] VARMA 7 HOME HOME 85%/>02 [facility]ICAL MED[facility]BS[facility] 75605 [facility] 7 MEDICAL CARE/DAY SERV 25 FOUNDATIO MINUTES N RADIOLOGI 11631 [facility] C EXAM 7 MEDICAL MEDICAL CHEST 2 IMAGING IMAGING VIEWS ASS ASS FRONTAL&L ATERAL O2 CONC 1 E1390 [facility] 7 HOME HOME 85%/>02 MEDICAL MEDICAL CONC AT [facility] O2 CONC 1 E1390 [facility] [place] 6 HOME HOME 85%/>02 MEDICAL MEDICAL CONC AT [facility] O2 CONC 1 E1390 [facility] 6 HOME HOME 85%/>02 MEDICAL MEDICAL [facility]C [facility] ALBUTEROL J7620 YOUR YOUR TO 2.5 6 PHARMACY PHARMACY [facility] LLC IPRATROPI UM BROM TO 0.5 MG ADMN SET A7003 YOUR YOUR SM VOL 6 PHARMACY PHARMACY NONFILTR [employer] [facility] PNEUMAT NEBULIZR DISPBL PHRM Q0513 YOUR YOUR DISPENSIN 6 PHARMACY PHARMACY G FEE [employer] [facility] INHALATIO N RX; PER 30 DAYS O2 CONC 1 E1390 [facility] 6 HOME HOME 85%/>02 MEDICAL MEDICAL [facility] G0463 [facility] AYALA OUTPATIEN 6 MEM HOS[facility] T CLIN INC INC VISIT ASSESS & MGMT PT O2 CONC 1 E1390 [facility] 6 HOME HOME 85%/>02 MEDICAL MEDICAL CONC AT [facility] [place] [place] [address] L[facility] A[facility]ALA ABDOMEN 6 MEM HOS[facility] W/CONTRAS INC INC T MATERIAL BLOOD 80526 [facility] COUNT 6 MEM H[facility] COMPLETE INC INC AUTO&AUTO DIFRNTL WBC COLLECTIO 13432 [facility] N VENOUS 6 MEM HOSP [facility] BLOOD INC INC VENIPUNCT URE COMPREHEN 27260 [facility] SIVE 6 MEM H[facility] METABOLIC INC INC PANEL LOCM Q9967 [facility] A[facility]ALA 300-399 6 MEM HOSP [facility] MG/ML INC INC IODINE CONCENTRA TION PER ML ANES 91756 [facility] UPPER GI 6 ANESTH PALMA ENDOSCOPY OF THE PROXIMAL BLUE TO DUODENUM O2 CONC 1 E1390 [facility] [place] 6 HOME HOME 85%/>02 MEDICAL MEDICAL CONC AT EQUIPME [facility] FL[facility] RADEX 76455 [facility] AYALA UPPER GI 6 MEM HOSP [facility] W/WO INC INC GLUCAGON/ DELAY IMAGES W/KUB O2 CONC 1 E1390 [facility] [place] 6 HOME MAR 85%/>02 [facility] RADEX 10420 [place] FONTANEZ ALL UPPER GI 6 MEDICAL W/WO IMAGING GLUCAGON/ ASS DELAY IMGES W/O KUB COLLECTIO 36611 [facility] N VENOUS 6 [facility] BLOOD INC INC VENIPUNCT URE FLOW 26037 [facility] CYTOMETRY 6 MEM HOS[facility] CELL INC INC SURF MARKER TECHL ONLY EA FLOW 98002 [facility] CYTOMETRY 6 [facility] H[facility] CELL INC INC SURF MARKER TECHL ONLY 1ST FLOW 08675 MOLECULAR MOLECULAR CYTOMETRY 6 [facility] PATHOLOGY PATHOLOGY 2-8 LAB NETW LAB NETW MARKERS NEBULIZER E0570 [facility] LEVY WITH 6 HOME HOME COMPRESSO MEDICAL MEDICAL R EQUIPME EQUIPME O2 CONC 1 E1390 [facility] [place] 6 HOME KEY 85%/>02 MEDICAL CONC AT EQUIPME [facility] FLW RATE SEAT E0156 [facility]LECARE ATTACHMEN 6 T WALKER WALKER E0143 [facility] FOLDING 6 WHEELED ADJUSTABL E/FIXED HEIGHT ECG 27462 [place] TANIYA ABIMAEL ROUTINE 6 MEDICAL ECG SERV W/LEAST FOUNDATIO 12 LDS N I&R ONLY ECG 37979 [place] PELAEZ ROUTINE 6 MEDICAL NAN ECG SERV W/LEAST FOUNDATIO 12 LDS N I&R ONLY SBSQ 35927 [place] [facility] 6 MEDICAL KEYANA CARE/DAY SERV 25 FOUNDATIO MINUTES N RADIOLOGI 26479 [place]AMES CON C 6 MEDICAL EXAMINATI SERV ON CHEST FOUNDATIO SINGLE N VIEW FRONTAL RADIOLOGI 93591 [place] WILLIEK C 6 MEDICAL AYA MAR EXAMINATI SERV ON CHEST FOUNDATIO SINGLE N VIEW FRONTAL SBSQ 20617 [place] [facility] 6 MEDICAL KEYANA CARE/DAY SERV 15 FOUNDATIO MINUTES N SBSQ 31431 [place] [facility] 6 MEDICAL KEYANA CARE/DAY SERV 15 FOUNDATIO MINUTES N RADIOLOGI 38900 [place] ARMENDARIZ JENNA C 6 MEDICAL EXAMINATI SERV ON CHEST FOUNDATIO SINGLE N VIEW FRONTAL RADIOLOGI 23168 [place] MAHMOOD LEATHA C 6 MEDICAL EXAMINATI SERV ON CHEST FOUNDATIO SINGLE N VIEW FRONTAL SBSQ 51947 [place] [facility] 6 MEDICAL CARE/DAY SERV 25 FOUNDATIO MINUTES N SBSQ 12808 [place] [facility] 6 MEDICAL CARE/DAY SERV 25 FOUNDATIO MINUTES N RADIOLOGI 16131 [place] [facility] LEATHA C 6 MEDICAL EXAMINATI SERV ON CHEST FOUNDATIO SINGLE N VIEW FRONTAL ECG 25321 [place] [facility] ROUTINE 6 MEDICAL ECG SERV W/LEAST FOUNDATIO 12 LDS N I&R ONLY RADEX 68610 [place] [facility] ABDOMEN 1 6 MEDICAL SUSAN SERV ANTEROPOS FOUNDATIO TERIOR N VIEW ECG 91513 [place] [facility] ROUTINE 6 MEDICAL ECG SERV W/LEAST FOUNDATIO 12 LDS N I&R ONLY RADEX 29330 [facility] SHANELL ABDOMEN 1 6 Y OF CAR [place] [facility]TER[facility]OS HOS[facility] TERIOR VIEW CRITICAL 43616 [place] [facility] CARE 6 MEDICAL ILL/INJUR SERV ED FOUNDATIO PATIENT N INIT 30-74 MIN RADIOLOGI 01857 [place] [facility] LEATHA C 6 MEDICAL EXAMINATI SERV ON CHEST FOUNDATIO SINGLE N VIEW FRONTAL CT THORAX 90161 [place] CON 6 MEDICAL W/CONTRAS SERV T FOUNDATIO MATERIAL N RADIOLOGI 88157 [place] WILLIEK C 6 MEDICAL AYA MAR EXAMINATI SERV ON CHEST FOUNDATIO SINGLE N VIEW FRONTAL SBSQ 42596 [place] [facility] 6 MEDICAL CARE/DAY SERV 25 FOUNDATIO MINUTES N RADEX 60151 UNIVERSIT SHANELL ABDOMEN 1 6 Y [place] [address] [place] REYEZ CLEO ABDOMEN & 6 MEDICAL PELVIS SERV W/CONTRAS FOUNDATIO T N MATERIAL ECHO 62027 [place] [facility] R-T 6 MEDICAL ERIKA 2D SERV W/WOM-MOD FOUNDATIO E COMPL N SPEC&COLR D ECG 23198 [facility] ROUTINE 6 MEDICAL ECG SERV W/LEAST FOUNDATIO 12 LDS N I&R ONLY INITIAL [address] [place] [address] MEDICAL SUN KAYODE CARE/DAY SERV 30 FOUNDATIO MINUTES N SBSQ [address]5925 [place] [address] MEDICAL AND CARE/DAY SERV 25 FOUNDATIO MINUTES N RADIOLOGI 15926 [place] CON C 6 MEDICAL EXAMINATI SERV ON CHEST FOUNDATIO SINGLE N VIEW FRONTAL RADEX ABD 59180 [place] PAULA COMPL 6 MEDICAL JURGEN AQT ABD SERV ANNEL W/S/E/D FOUNDATIO VIEWS 1 N VIEW CH SBSQ 56978 [facility] 6 MEDICAL AND CARE/DAY SERV 25 FOUNDATIO MINUTES N RADIOLOGI 82617 [place] CON C 6 MEDICAL EXAMINATI SERV ON CHEST FOUNDATIO SING[place] FRONTAL RADIOLOGI 17546 [place] J[place] CON C 6 MEDICAL EXAMINATI SERV ON CHEST FOUNDATIO SINGLE N [place]IEW FRONTAL ECG 53223 [facility] ROUT[facility] 6 MEDICAL ECG SERV W/LEAST FOUNDATIO 12 LDS N I&R ONLY RADEX 29817 UNIVERSIT SHANELL ABDOMEN 1 6 Y [facility] [place] [facility] [place] RADIOLOGI [address]707 [place] WILLIEK C 6 MEDICAL AYA MAR EXAMINATI SERV ON CHEST FOUNDATIO SINGLE N [place] FRONTAL RADIOLOGI 73924 [place] ROBBINS C 6 MEDICAL JESS EXAMINATI SERV ON CHEST FOUNDATIO SING[place] FRONTAL RADEX 43916 [place] JONAHGUROVSK ABDOMEN 1 6 MEDICAL AYA MAR SERV ANTEROPOS FOUNDATIO [place] RADIOLOGI 82331 [place] JONAHGUROVSK C 6 MEDICAL AYA MAR EXAMINATI SERV ON CHEST FOUNDATIO SINGLE N [place] FR[place] THORAX [address]20 [place] ARMENDARIZ JENNA 6 MEDICAL W/CONTRAS SERV T FOUNDATIO MATERIAL N RADEX 44602 UNIVERSIT SHANELL ABDOMEN 1 6 Y [place] [address] [place] AYOOB AND ABDOMEN & 6 MEDICAL PELVIS SERV W/CONTRAS FOUNDATIO T N MATERIAL RADEX 02040 [facility] [place] ABDOMEN 1 6 Y [facility] [place] [facility] [place] SBSQ [address] [place] [address] MEDICAL AND CARE/DAY SERV 25 FOUNDATIO MINUTES N RADIOLOGI 49268 [place] DELL CAR C 6 MEDICAL EXAMINATI SERV ON CHEST FOUNDATIO SINGLE N [place]IEW FRONTAL SBSQ 50261 [place] [address] MEDICAL AND CARE/DAY SERV 25 FOUNDATIO MINUTES N RADIOLOGI 81966 [place] JAMES CON C 6 MEDICAL EXAMINATI SERV ON CHEST FOUNDATIO SING[place] N [place] FRONTAL ECG 57643 [place] PELAEZ ROUTINE 6 MEDICAL NAN ECG SERV W/LEAST FOUNDATIO 12 LDS N I&R ONLY ECG 28806 [place] HUI MIKHAIL ROUTINE 6 MEDICAL ECG SERV W/LEAST FOUNDATIO 12 LDS N I&R ONLY ARTL 32161 [facility] CATHJ/CAN 6 Y OF Y OF NULJ [facility] MNTR[facility] SFUSION SPX PRQ SBSQ 96942 [facility] 6 MEDICAL RONNY CARE/DAY SERV 25 FOUNDATIO MINUTES N RPR 1ST 07402 [facility] 6 MEDICAL RONNY HRNA AGE SERV 6 YRS/> FOUNDATIO INCARCERA N KISHOR ANESTHESI 94757 [facility] BET A HERNIA 6 Y OF REPAIR [place] [facility] [place] N[place] L[place] [address] [place] HIEU SURG 6 MEDICAL FRANCO PATHOLOGY SERV FOUNDATIO GROSS&[place] [address] [place] HIEU SURG 6 MEDICAL FRANCO PATHOLOGY SERV FOUNDATIO GROSS&JESS N ROSCOPIC EXAM COMPREHEN 52208 LUCY A[facility]A SIVE 6 [facility] [place] [address] LUCY AYALA AMYLASE 6 [facility] INC INC CREATINE 70922 LUCY AYALA KINASE MB 6 [facility] FRACTION INC INC ONLY INJECTION J2405 LUC[facility]A 6 [facility] ONDANSETR INC INC ON HCL PER 1 MG INJ J2543 LUCY AYALA PIPERACIL 6 [facility] YONATHAN INC INC SOD/TAZOB ACTAM SOD 1 G/0.125 G CREATINE 15370 LUCY AYALA KINASE 6 [facility] [place] [address] LUCY AYALA LIPASE 6 [facility] INC INC RADIOLOGI 35125 LUCY A[facility]ALA C 6 [facility] EXAMINATI INC INC ON CHEST SINGLE VIEW FRONTAL THER 12544 LUCY AYALA PROPH/DX 6 [facility] NJX EA INC INC SEQL IV PUSH SBST/DRUG FAC AMBULANCE A0429 [facility] SERVICE 6 AMBULANCE AMBULANCE BLS SERVICE SERVICE EMERGENCY TRANSPORT ECG 76816 LUCY AYALA ROUTINE 6 [facility] ECG INC INC W/LEAST 12 LDS TRCG ONLY W/O I&[place] [address] [place] FONT[place] ALL ABDOMEN & 6 MEDICAL PELVIS IMAGING W/O ASS CONTRAST MATERIAL ECG 71961 LUCY BEVERLY ROUTINE 6 [facility] W/LEAST P 12 LDS I&[place] [address] LUCY AYALA INFUSION 6 [facility] THERAPY/P INC INC ROPHYLAXI S /DX 1ST TO 1 [place] [address] LUCY AYALA TROPONIN 6 [facility] QUANTITAT INC INC ARCENIO BLOOD 95811 LUCY AYALA COUNT 6 [facility] COMPLETE INC INC AUTO&AUTO DIFRNTL WBC GROUND A0425 [facility] AM[facility]UL[facility] PER SERVICE SERVICE STATUTE MILE INITIAL 62719 [facility] 6 MEDICAL CHR CARE/DAY SERV 50 FOUNDATIO MINUTES N BLOOD 71258 Darnell Wagner KIRILL JENNA COUNT 6 PILAR PLEITEZ COMPLETE PSC AUTO&AUTO DIFRNTL WBC COLLECTIO 82175 Darnell BELTRANES JENNA N VENOUS 6 PILAR PLEITEZ BLOOD PSC VENIPUNCT URE NEBULIZER E0570 MILDRED LEVY WITH 6 HOME HOME COMPRESSO MEDICAL MEDICAL R EQUIPME EQUIPME INITIAL 50509 [facility] 6 [facility] CARE/DAY INTERNAL 70 MED MINUTES ECG 54592 [facility] ROUTINE 6 [facility] W/LEAST P 12 LDS I&R ONLY RADIOLOGI 39896 [facility] FRANC[facility] Wagner 6 MEDICAL EXAMINATI IMAGING ON CHEST ASS SINGLE VIEW FRONTAL NEBULIZER E0570 MILDRED LEVY WITH 6 HOME HOME COMPRESSO MEDICAL MEDICAL R EQUIPME EQUIPME PHRM Q0513 YOUR YOUR DISPENSIN 6 PHARMACY PHARMACY [facility] [employer] [facility] INHALATIO N RX; PER 30 DAYS COLLECTIO 24360 LUCY AYALA N VENOUS 6 [facility] BLOOD INC INC VENIPUNCT URE COMPREHEN 99790 LUCY AYALA SIVE 6 [facility] METABOLIC INC INC PANEL ALBUTEROL J7620 YOUR YOUR TO 2.5 6 PHARMACY PHARMACY [employer] [facility] IPRATROPI UM BROM TO 0.5 MG ADMN SET A7003 YOUR YOUR SM VOL 6 PHARMACY PHARMACY NONFILTR [facility] PNEUMAT NEBULIZR DISPBL BLOOD 01269 LUCY AYALA COUNT 6 [facility] COMPLETE INC INC AUTO&AUTO DIFRNTL WBC RADIOLOGI 63312 LUCY Wagner EXAM 6 [facility] CHEST 2 INC INC VIEWS FRONTAL&L ATERAL RADIOLOGI 03340 [place] Wagner 6 MEDICAL EXAMINATI IMAGING ON [...] TO 2.5 5 PHARMACY PHARMACY [employer] IPRATROPI UM BROM TO 0.5 MG RADIOLOGI 72129 [facility] ALL C EXAM 5 MEDICAL CHEST 2 IMAGING VIEWS ASS FRONTAL&L ATERAL CT THORAX 17034 [facility] ALL 5 MEDICAL W/CONTRAS IMAGING T ASS MATERIAL RADIOLOGI 89584 [facility] ALL C EXAM 5 MEDICAL CHEST 2 IMAGING VIEWS ASS FRONTAL&L ATERAL ALBUTEROL J7620 YOUR YOUR TO 2.5 5 PHARMACY PHARMACY [employer] IPRATROPI UM BROM TO 0.5 MG PHARM G0333 YOUR YOUR DISPEN 5 PHARMACY PHARMACY [employer] [facility] RX; INITIAL 30-DAY SUPPLY NEBULIZER E0570 MILDRED LEVY WITH 5 HOME HOME COMPRESSO MEDICAL MEDICAL R EQUIPME EQUIPME CATARACT 70899 [facility] REMOVAL 5 JAMILAH JAMILAH INSERTION [...] EQUIPME EQUIPME ARWAY PRESS DEVICE EA POLYSOM 13519 NEERAJ KERN MAR 6/>YRS 4 SLEEP 4/> NEUROSCIE ADDL NCES CENT AMA ATTND POLYSOM 18911 LUCY LUCY 6/>YRS 4 [facility] SLEEP 4/> INC INC ADDL AMA ATTND IMC/IMC G0461 LUCY AYALA PER 4 [facility] SPECIMEN; INC INC 1ST SNGL/[place] [address] LUCY LUCY INFUSION 4 [facility] THERAPY INC INC PROPHYLAX IS/DX EA HOUR SPECIAL 44638 LUCY LUCY STAIN 4 [facility] GROUP 1 INC INC MICROORGA NISMS I&R SPCL STN 27603 LUCY AYALA 2 I&R 4 [facility] EXCPT INC INC MICROORG/ ENZYME/[place] [address] LUCY LUCY SURG 4 [facility] INC INC GROSS&[place] [address] LUCY LUCY INFUSION 4 [facility] THERAPY/P INC INC ROPHYLAXI S /DX 1ST TO 1 HR SPMTRY 29745 LUCY AYALA W/VC 4 [facility] EXPIRATOR INC INC Y ALFREDO W/WO MXML VOL VNTJ ECHO 85882 LUCY AYALA TTHRC R-T 4 [facility] 2D INC INC W/WOM-MOD E COMPL SPEC&COLR D MYOCARDIA 44619 LUCY AYALA L SPECT 4 [facility] MULTIPLE INC INC STUDIES CV STRS 05202 [facility] TST 4 XERS&/OR RX CONT ECG W/O I&R MYOCARDIA 87756 [place] MA L 4 MEDICAL EMY PERFUSION IMAGING PLANAR ASS MULTIPLE STUDIES CV STRS 28729 [facility] TST 4 DWI DWI XERS&/OR RX CONT ECG I&R ONLY RADIOLOGI 59773 [place] MA C EXAM 4 MEDICAL EMY CHEST 2 IMAGING VIEWS ASS FRONTAL&L ATERAL PRTBLE E0431 MILDRED MILRDED GASEOUS 3 HOME HOME O2 SYS MEDICAL [...] DON DON CEFAZOLIN SODIUM 500 MG RADIOLOGI 93720 LUCY AYALA C EXAM 3 [facility] [...] EQUIPME EQUIPME FLWMTR HUMIDFR&M ASK CT THORAX 19954 [facility] W/O 2 MEDICAL EMY CONTRAST IMAGING MATERIAL ASS 3D 15045 [facility] RENDERING 2 MEDICAL EMY IMAGING W/INTERP& ASS POSTPROC DIFF WORK STATION PRTBLE E0431 MILDRED MILDRED GASEOUS 2 HOME HOME O2 SYS MEDICAL MEDICAL RENT; EQUIPME EQUIPME FLWMTR HUMIDFR&M ASK TOBACCO 52055 JAMES JAMES USE 2 DON DON CESSATION INTERMEDI ATE 3-10 MINUTES PRTBLE E0431 MILDRED MILDRED GASEOUS 2 HOME HOME O2 SYS MEDICAL MEDICAL RENT; EQUIPME EQUIPME FLWMTR HUMIDFR&M ASK PRTBLE E0431 MILDRED MILDRED GASEOUS 2 HOME HOME O2 SYS MEDICAL MEDICAL RENT; EQUIPME EQUIPME FLWMTR HUMIDFR&M ASK RADIOLOGI 51707 LUCY AYALA C EXAM 2 [facility] CHEST 2 INC INC VIEWS FRONTAL&L ATERAL SPMTRY 05930 [facility] POLLOCK W/VC 2 JAM JAM EXPIRATOR Y ALFREDO W/WO MXML VOL VNTJ PRTBLE E0431 MILDRED MILDRED GASEOUS 2 HOME HOME O2 SYS MEDICAL MEDICAL RENT; EQUIPME EQUIPME FLWMTR HUMIDFR&M ASK BLOOD 96582 LUCY AYALA GASES ANY 2 [facility] INC INC COMBINATI ON PH PCO2 PO2 CO2 HCO3 GLUCOSE 69927 LUCY AYALA BODY 2 [facility] FLUID INC INC OTHER THAN BLOOD IRON 45854 LUCY AYALA BINDING 2 [facility] CAPACITY INC INC LACTATE 85318 LUCY AYALA DEHYDROGE 2 [facility] NASE LDH INC INC PROTEIN 07868 LUCY AYALA XCPT 2 [facility] REFRACTOM INC INC ETRY SERUM PLASMA/WH L BLD SMR PRIM 68875 LUCY AYALA SRC 2 [facility] GRAM/GIEM INC INC SA STAIN BCT FUNGI/VAHID L RADIOLOGI 54511 LUCY AYALA C EXAM 2 [facility] CHEST 2 INC INC VIEWS FRONTAL&L ATERAL CT THORAX 12687 LUCY AYALA W/O 2 [facility] CONTRAST INC INC MATERIAL NONINVASI 67387 LUCY AYALA VE 2 [facility] EAR/PULSE INC INC OXIMETRY SINGLE DETER CYTP 98094 PATHOLOGY PATHOLOGY SLCTV 2 & & CELL CYTOLOGY CYTOLOGY ENHANCEME LAB LAB NT INTERPJ XCPT C/V CYANOCOBA 52950 LUCY AYALA BETTIE 2 [facility] VITAMIN INC INC B-12 THORACENT 41683 LUCY AYALA ESIS 2 [facility] PUNCTURE INC INC PLEURAL CAVITY ASPIRATIO N CUL BACT 59951 LUCY AYALA XCPT 2 [facility] URINE INC INC BLOOD/STO OL AEROBIC ISOL CULTURE 66555 LUCY AYALA BACTERIAL 2 [facility] ANY INC INC SOURCE ANAEROBIC ISO&ID CULTURE 28110 LUCY AYALA TUBERCLE/ 2 [facility] OTH INC INC ACID-FAST BACILLI [place]OL TISS FRED 29626 LUCY AYALA SLIDE 2 [facility] SAMPS INC INC SKN/HR/NL S FNGI/[place] [address] LUCY AYALA GUIDANCE 2 [facility] NEEDLE INC INC PLACEMENT COLLECTIO 59747 LUYC LUCY N VENOUS 2 [facility] BLOOD INC INC VENIPUNCT URE CELL 75809 LUCYJOAN BOBON COUNT 2 [facility] MISC BODY INC INC FLUIDS W/DIFFERE NTIAL COUNT CARBOXYHE 84376 LUCY AYALA MOGLOBIN 2 [facility] [place] [address] LUCY LUCY IRON 2 [facility] INC INC SPUTUM 58282 LUCY AYALA OBTAINING 2 [facility] SPEC INC INC AEROSOL INDUCED TX SPX ECG 47886 LUCY AYALA ROUTINE 2 [facility] ECG INC INC W/LEAST 12 LDS TRCG ONLY W/O I&R ECG 16301 [facility] B[facility] ROUTINE 2 JENNA JENNA ECG W/LEAST 12 LDS I&R ONLY CT THORAX 05711 LUCY LUCY W/O 2 [facility] CONTRAST INC INC MATERIAL 3D 61788 [place] [facility]ANC[facility] RENDERING 2 MEDICAL EMY IMAGING W/INTERP& ASS POSTPROC DIFF WORK STATION PRTBLE E0431 MILDRED BARBERRELL GASEOUS 2 HOME HOME O2 SYS MEDICAL MEDICAL RENT; EQUIPME EQUIPME FLWMTR HUMIDFR&M ASK PRTBLE E0431 MILDRED BARBERRELL GASEOUS 2 HOME HOME O2 SYS MEDICAL MEDICAL RENT; EQUIPME EQUIPME FLWMTR HUMIDFR&M ASK SPMTRY 94690 LUCY AYALA W/VC 2 [facility] EXPIRATOR INC INC Y ALFREDO W/WO MXML VOL VNTJ PRTBLE E0431 MILDRED BARBERRELL GASEOUS 2 HOME HOME O2 SYS MEDICAL MEDICAL RENT; EQUIPME EQUIPME FLWMTR HUMIDFR&M ASK PRTBLE E0431 MILDREDTEJINDER BARBERRELL GASEOUS 2 HOME HOME O2 SYS MEDICAL MEDICAL RENT; EQUIPME EQUIPME FLWMTR HUMIDFR&M ASK RADIOLOGI 16505 ERIKA JAMES C EXAM 2 DON DON CHEST 2 VIEWS FRONTAL&L ATERAL CT THORAX 91458 [place] FRANCES[facility] 2 MEDICAL EMY W/CONTRAS IMAGING T ASS MATERIAL COMPREHEN 69348 COMBINED COMBINED SIVE 2 PHYSICIAN PHYSICIAN METABOLIC S LA S LA PANEL BLOOD 23915 COMBINED COMBINED COUNT 2 PHYSICIAN PHYSICIAN COMPLETE S LA S LA AUTO&AUTO DIFRNTL WBC LIPID 49409 COMBINED COMBINED PANEL 2 [place]YSIC[place] [address] COMBINED COMBINED PROSTATE 2 PHYSICIAN PHYSICIAN SPECIFIC [...] O2 SYS MEDICAL MEDICAL RENT; EQUIPME EQUIPME [facility] HUMIDFR&M ASK PRTBLE E0431 MILDRED LEVY GASEOUS 1 HOME HOME O2 SYS MEDICAL MEDICAL RENT; EQUIPME EQUIPME [facility] HUMIDFR&M ASK O2 CONC 1 E1390 MILDRED LUIS [facility] 1 HOME HOME 85%/>02 MEDICAL MEDICAL CONC AT EQUIPME EQUIPME [facility] FLW RATE O2 CONC 1 E1390 [place] 1 HOME MED HOME MED 85%/>02 EQUIP. L EQUIP. L CONC AT [facility] FLW RATE PRTBLE E0431 MILDRED LEVY GASEOUS 1 HOME MED HOME MED O2 SYS EQUIP. L EQUIP. L RENT; [facility] HUMIDFR&M ASK PRTBLE E0431 MILDRED LEVY GASEOUS 1 HOME MED HOME MED O2 SYS EQUIP. L EQUIP. L RENT; [facility] HUMIDFR&M ASK O2 CONC 1 E1390 MILDRED LUIS [facility] 1 HOME MED HOME MED 85%/>02 EQUIP. L EQUIP. L CONC AT [facility] FLW RATE O2 CONC 1 E1390 MILDRED LUIS [facility] 1 HOME MED HOME MED 85%/>02 EQUIP. L EQUIP. L CONC AT [facility] FLW RATE PRTBLE E0431 MILDRED LEVY GASEOUS 1 HOME MED HOME MED O2 SYS EQUIP. L EQUIP. L RENT; [facility] HUMIDFR&M [facility] PRTBLE E0431 MILDRED LEVY GASEOUS 1 HOME MED HOME MED O2 SYS EQUIP. L EQUIP. L RENT; [facility] HUMIDFR&M ASK O2 CONC 1 E1390 MILDRED LUIS [facility] 1 HOME MED HOME MED 85%/>02 EQUIP. L EQUIP. L CONC AT [facility] FLW RATE O2 CONC 1 E1390 MILDRED LUIS [facility] 1 HOME MED HOME MED 85%/>02 EQUIP. L EQUIP. L CONC AT [facility] FLW RATE PRTBLE E0431 MILDRED LEVY GASEOUS 1 HOME MED HOME MED O2 SYS EQUIP. L EQUIP. L RENT; [facility] HUMIDFR&M ASK PRTBLE E0431 MILDRED BARBERRELL GASEOUS 0 HOME MED HOME MED O2 SYS EQUIP. L EQUIP. L RENT; [facility] HUMIDFR&M ASK O2 CONC 1 E1390 [place] 0 HOME MED HOME MED 85%/>02 EQUIP. L EQUIP. L CONC AT [facility] FLW RATE PRTBLE E0431 MILDRED BARBERRELL GASEOUS 0 HOME MED HOME MED O2 SYS EQUIP. L EQUIP. L RENT; [facility] HUMIDFR&M ASK O2 CONC 1 E1390 [place] 0 HOME MED HOME MED 85%/>02 EQUIP. L EQUIP. L CONC AT [facility] FLW RATE PRTBLE E0431 MILDRED BARBERRELL GASEOUS 0 HOME MED HOME MED O2 SYS EQUIP. L EQUIP. L RENT; [facility] HUMIDFR&M ASK O2 CONC 1 E1390 [place] 0 HOME MED HOME MED 85%/>02 EQUIP. L EQUIP. L CONC AT [facility] FLW RATE O2 CONC 1 E1390 [place] 0 HOME MED HOME MED 85%/>02 EQUIP. L EQUIP. L CONC AT [facility] FLW RATE PRTBLE E0431 MILDRED LEVY GASEOUS 0 HOME MED HOME MED O2 SYS EQUIP. L EQUIP. L RENT; [facility] HUMIDFR&M ASK VIRUS 49652 [facility] CENTRIFUG 0 Y Y E [facility] ID IMFLUOR STAIN EA CULTURE 31011 [facility] FUNGI 0 Y Y [facility] ID EACH ORGANISM YEAST [facility] PRIM 21845 [facility] SRC 0 Y Y GRAM/GIEM [facility] SA STAIN BCT FUNGI/VAHID L INJECTION J2250 [facility] 0 Y Y MIDAZOLAM [facility] HCL PER 1 MG IAADI 25434 [facility] PNEUMOCUS 0 Y Y TIS [facility] CARINII CULTURE 14585 [facility] TUBERCLE/ 0 Y Y [facility] [place] ACID-FAST BACILLI ANY ISOL SMR PRIM 05221 [facility] SRC 0 Y Y FLUORESCE [facility] NT&/AFS BCT FNGI PARASIT TISS FRED 64976 [facility] SLIDE 0 Y Y [facility] SKN/HR/NL S FNGI/ECTO PARASIT CUL BACT 39341 [facility] XCPT 0 Y Y URINE [facility] BLOOD/STO OL AEROBIC ISOL RADIOLOGI 62662 [facility] C 0 Y Y EXAMINAST. [facility] ON CHEST SINGLE VIEW FRONTAL BRNCHSC 37707 [facility] W/BRNCL 0 Y Y ALVEOLAR [facility] LAVAGE INJECTION J3010 [facility] FENTANYL 0 Y Y CITRATE [facility] 0.1 MG CELL 52492 [facility] COUNT 0 Y Y MISC BODY [facility] FLUIDS W/DIFFERE NTIAL COUNT IADNA NOS 18792 [facility] 0 Y Y AMPLIFIED [facility] PROBE TQ EACH ORGANISM VIRUS 00641 [facility] TISS CUL 0 Y Y INOCULAST. [facility] ON CYTOPATHI C EFFECT CONCENTRA 04491 [facility] TION 0 Y Y INFECTIOU [facility] S AGENTS CYTP EVAL 53946 [facility] FINE 0 Y Y NEEDLE [facility] ASPIRATE INTERP & REPORT CYTP FINE 02035 [facility] NDL 0 Y Y ASPIRATE [facility] IMMT CYTOHIST STD DX 1ST [place] [address] [facility] SURG 0 Y Y PATHOLOGY [facility] GROSS&JESS ROSCOPIC EXAM CULTURE 71856 [facility] FNGI 0 Y Y MOLD/YEAS [facility] T PRSMPTV OTH XCPT BLOOD SPECIAL 58982 [facility] STAIN 0 Y Y GROUP 1 [facility] MICROORGA NISMS I&R BRONCHOSC 95981 [facility] OPY 0 Y Y W/TRANSBR [facility] ONCHIAL LUNG BX 1 LOBE BRONCHOSC 54451 [facility] OPY 0 Y Y NEEDLE BX [facility] TRACHEA MAIN STEM&/BRO N O2 CONC 1 E1390 [place] 0 HOME MED HOME MED 85%/>02 EQUIP. L EQUIP. L CONC AT [facility] FLW RATE PRTBLE E0431 MILDRED MILDRED GASEOUS 0 HOME MED HOME MED O2 SYS EQUIP. L EQUIP. L RENT; [facility] HUMIDFR&M ASK PHLEBOTOM 95331 COMBINED COMBINED Y 0 PHYSICIAN PHYSICIAN THERAPEUT S LA S LA IC SEPARATE PROCEDURE DUP-SCAN 84174 [place] [facility] XTR VEINS 0 MEDICAL EYM COMPLETE IMAGING ASS BILATERAL STUDY RADEX 20598 [place] [facility] ESOPHAGUS 0 MEDICAL EMY IMAGING ASS COLLECTIO 31899 LUCY LUCY N VENOUS 0 [facility] BLOOD INC INC VENIPUNCT URE COMPREHEN 10336 LUC[facility] A[facility]ALA SIVE 0 [facility] METABOLIC INC INC PANEL PULMONARY 10885 [place] STRESS 0 MEDICAL JAM TESTING SERV SIMPLE FOUNDATIO BLOOD 64794 L[facility] A[facility]ALA COUNT 0 [facility] COMPLETE INC INC AUTO&AUTO DIFRNTL WBC BRNCDILAT 99699 LUC[facility] AYALA RSPSE 0 [facility] SPMTRY INC INC PRE&POST- BRNCDILAT ADMN CT THORAX 36953 [place] NELLY W/O 0 MEDICAL KEY CONTRAST IMAGING MATERIAL ASS COMPREHEN 66346 COMBINED COMBINED SIVE 0 PHYSICIAN PHYSICIAN METABOLIC S LAB S LAB PANEL COLLECTIO 24070 COMBINED COMBINED N VENOUS 0 PHYSICIAN PHYSICIAN BLOOD S LAB S LAB VENIPUNCT URE 3D 41595 [place] NELLY RENDERING 0 MEDICAL KEY IMAGING W/INTERP& ASS POSTPROC DIFF WORK STATION RADIOLOGI 39293 [place] [facility]ANC[facility] C EXAM 0 MEDICAL EMY CHEST 2 IMAGING VIEWS ASS FRONTAL&L ATERAL PRTBLE E0431 MILDRED MILDRED GASEOUS 0 HOME MED HOME MED O2 SYS EQUIP. EQUIP. RENT; [facility] H[facility] ASK O2 CONC 1 E1390 [place] 0 HOME MED HOME MED 85%/>02 EQUIP. EQUIP. CONC AT [facility] FLW RATE INJECTION J1940 ERIKA JAMES, 0 DON R DON R FUROSEMID E UP TO 20 MG O2 CONC 1 E1390 [place] 0 HOME MED HOME MED 85%/>02 EQUIP. EQUIP. CONC AT [facility] FLW RATE RADIOLOGI 75572 ERIKA JAMES C EXAM 0 DON R DON R CHEST 2 VIEWS FRONTAL&L ATERAL PRTBLE E0431 MILDRED LEVY GASEOUS 0 HOME MED HOME MED O2 SYS EQUIP. EQUIP. RENT; [facility] FLWMTR HUMIDFR&M ASK ECG 82801 ERIKA JAMES, ROUTINE 0 DON R DON R ECG W/LEAST 12 LDS W/I&R RADIOLOGI 23546 ERIKA JAMES C 0 DON R DON R EXAMINATI ON CHEST SINGLE VIEW [facility] 71374 ERIKA JAMES, DISCHARGE 0 DON R DON R DAY MANAGEMEN T 30 MIN/< SBSQ 76077 [facility] 0 DON R DON R CARE/DAY 25 MINUTES RADIOLOGI 51293 [facility] EXAM 0 MEDICAL JANE P CHEST 2 IMAGING VIEWS ASSOCIATE FRONTAL&L S ATERAL SBSQ 23323 [facility] 0 DON R DON R CARE/DAY 25 MINUTES [facility] 046[facility] 0 DON R DON R CARE/DAY [address] THORAX 11570 [place] [facility], 0 MEDICAL SHASHI W/CONTRAS IMAGING T ASSOCIATE MATERIAL S 3D 05457 [place] [facility], RENDERING 0 MEDICAL SHASHI IMAGING W/INTERP& ASSOCIATE POSTPROC S DIFF WORK STATION SBS 66555 [facility] 0 DON R DON R CARE/DAY 25 MINUTES SBSQ 04062 [facility] 0 DON R DON R CARE/DAY 25 MINUTES RADIOLOGI 44905 ERIKA JAMES C 0 DON R DON R EXAMINATI ON CHEST SINGLE VIEW FRONTAL INITIAL 05885 [facility] R DON R CARE/DAY 50 MINUTES RADIOLOGI 25161 Kristy OROSCO EXAM 0 MEDICAL SHASHI CHEST 2 IMAGING VIEWS ASSOCIATE FRONTAL&L S ATERAL OPHTH 65267 [facility] 9 DONTE A DONTE A XM&EVAL COMPRHNSV ESTAB PT 1/> OPHTH 06727 [facility]INI, MEDICAL 9 VITREOUS CALLIE W XM&EVAL ASSOCIATE INTERMEDI S O ATE ESTAB PT SCANNING 87672 [facility]IN[facility], OPHTHALMI 9 VITREOUS CALLIE W C IMAGING ASSOCIATE S O POSTERIOR SGM UNI INJECTION J1040 ERIKA JAMES, 8 DON R DON R METHYLPRE DNISOLONE ACETATE 80 MG SCANNING 33770 [facility], OPHTHALMI 8 VITREOUS CALLIE W C IMAGING ASSOCIATE S O POSTERIOR SGM UNI OPHTH 71709 [facility], MEDICAL 8 VITREOUS CALLIE W XM&EVAL ASSOCIATE INTERMEDI S O ATE ESTAB PT INJECTION [id number] ERIKA JAMES, 8 DON R DON R METHYLPRE DNISOLONE ACETATE [address] [facility] ([place], [place]) 8 DONTE A DONTE A XM&EVAL COMPRHNSV ESTAB PT 1/> SCANNING 65538 [facility] NINI, OPHTHALMI 8 VITREOUS CALLIE W C IMAGING ASSOCIATE S O POSTERIOR SGM UNI OPHTH 46271 [facility]INI, MEDICAL 8 VITREOUS CALLIE W XM&EVAL ASSOCIATE INTERMEDI S O ATE ESTAB PT INJECTION [id number] ERIKA JAMES, 8 DON R DON R METHYLPRE DNISOLONE ACETATE 80 MG RADIOLOGI 23190 ERIKA JAMES EXAM 8 DON R DON R CHEST 2 VIEWS FRONTAL&L ATERAL SCANNING 40222 [facility] & OPHTHALMI 8 VITREOUS VITREOUS C IMAGING ASSOCIATE ASSOCIATE S O S O POSTERIOR SGM UNI OPHTH 45588 [facility] & MEDICAL 8 VITREOUS VITREOUS XM&EVAL ASSOCIATE ASSOCIATE INTERMEDI S O S O ATE ESTAB PT OPHTH 20697 [facility] & MEDICAL 8 VITREOUS VITREOUS XM&EVAL ASSOCIATE ASSOCIATE INTERMEDI S O S O ATE ESTAB PT SCANNING 46966 [facility] & OPHTHALMI 8 VITREOUS VITREOUS C IMAGING ASSOCIATE ASSOCIATE S O S O POSTERIOR SGM UNI INJECTION J1100 ERIKA JAMES, 8 DON R DON R DEXAMETHO SONE SODIUM PHOSPHATE 1 MG Encounters Encounter Start End Date Code Location Performer Type Date OFFICE 63636 [facility] R[facility]ANNON OUTPATIEN 7 7 PHYSICIAN T VISIT S GROUP 25 MINUTES [facility] - [facility] T OFFICE 93751 [facility] OUTPATIEN 7 7 PHYSICIAN T VISIT S GROUP 40 MINUTES OFFICE 63493 [facility] OUTPATIEN 7 7 [facility] [place] T VISIT PSC 15 MINUTES OFFICE 08453 [facility] OUTPAT[facility] 7 7 Y OF CK T VISIT [place] 25 HOSPI MINUTES OFFICE 93652 A [facility] OUTPATIEN 7 7 [facility] T VISIT [facility] 15 MINUTES [facility] LUC[facility] - 7 7 [facility] INPATIENT [facility] OFFICE 31892 [facility] OUTPATI[facility] 7 7 [facility] [place] T VISIT PSC 15 MINUTES OFFICE 62913 [facility] OUTPATI[facility] 7 7 [facility] [place] T VISIT PSC 15 MINUTES OFFICE 42402 [facility] OUTPATIEN 7 7 [facility] [place] T VISIT [facility] 15 MINUTES [facility]OSPITAL LUCY - 6 6 [facility] [place] 59645 [place] OUTPATIEN 6 6 MEDICAL JAM T VISIT [facility] 25 FOUNDATIO MINUTES N OFFICE 71154 [facility] FANTA MORALES OUTPATIEN 6 6 PHYSICIAN RITA T VISIT S GROUP 10 MINUTES HOSPITAL LUCY - 6 6 [facility] OUTPATIEN INC T OFFICE 72814 [facility] OUTPATIEN 6 6 [facility] VISIT HOSPITAL 10 P MINUTES OFFICE 56410 A Kristy ROY OUTPATIEN 6 6 PILAR PLEITE[place] T VISIT PSC 15 MINUTES OFFICE 31358 [place] OUTPATIEN 6 6 MEDICAL JAM T VISIT SERV 15 FOUNDATIO MINUTES N OFFICE 99791 [facility] OUTPATIEN 6 6 [facility] 20 HOSPITAL MINUTES P OFFICE 09358 [facility] ALLRAN JR OUTPATIEN 6 6 PHYSICIAN RITA T VISIT S GROUP 15 MINUTES HOSPITAL LUCY - 6 6 [facility] OUTPATIEN INC T OFFICE 17377 [facility] ALLRAN JR OUTPATIEN 6 6 PHYSICIAN RITA T NEW 45 S GROUP MINUTES OFFICE 08444 [place] OUTPATIEN 6 6 MEDICAL JAM T VISIT SERV 25 FOUNDATIO MINUTES N HOSPITAL LUCY - 6 6 [facility] OUTPATIEN INC T OFFICE 87570 A Kristy ROY OUTPATIEN 6 6 PILAR PLEITEZ T VISIT PSC 15 MINUTES OFFICE 01666 [place] OUTPATIEN 6 6 MEDICAL JAM T VISIT SERV 25 FOUNDATIO MINUTES N EMERGENCY 36071 [facility] DEPT 6 6 Y OF MADALYN VISIT [facility] HOSPI SEVERITY& THREAT [facility] LUCY - 6 6 [facility] OUTPATIEN INC T OFFICE 15650 A Kristy WEST OUTPATIEN 6 6 P[place]AR [place]ITE[place] T VISIT PSC 15 MINUTES OFFICE 52800 A Kristy WEST OUTPATIEN 6 6 [facility] [place] T VISIT PSC 15 MINUTES [facility]OSPITAL LUCY - 6 6 [facility] INPATIENT [facility] OFFICE 29647 [place] OUTPATIEN 6 6 MEDICAL JAM T VISIT SERV 40 FOUNDATIO MINUTES N OFFICE 48138 [place] OUTPATIEN 6 6 MEDICAL T VISIT SERV 25 FOUNDATIO MINUTES [facility]OSPITAL LUCY - 6 6 [facility] [place] 10820 [place] OUTPATIEN 6 6 MEDICAL JAM T VISIT SERV 15 FOUNDATIO MINUTES [facility]OSPITAL LUCY - 5 5 [facility] LUCY - 5 5 [facility] LUCY - 5 5 MEM [facility] OFFICE [id number] A C FIELD AMB OUTPATIEN 5 5 PILAR PLEITEZ T VISIT PSC 15 MINUTES OFFICE [id number] A C FIELD AMB OUTPATIEN 4 4 PILAR PLEITEZ T VISIT PSC 15 MINUTES [facility] - 4 4 [facility] - 4 4 [facility] - 4 4 [facility] - 4 4 [facility]UC[facility] - 4 4 [facility] OFFICE [id number] FIELD AMB FIELD AMB OUTPATIEN 4 4 T VISIT 15 MINUTES OFFICE 75724 FIELD AMB FIELD AMB OUTPATIEN 3 3 T VISIT 15 MINUTES OFFICE [id number] A C FIELD AMB OUTPATIEN 3 3 PILAR PLEITEZ T NEW 30 PSC MINUTES OFFICE 69946 JAMES JAMES OUTPATIEN 3 3 DON DON T VISIT 15 MINUTES [facility] LUC[facility] - 3 3 [facility] OFFICE 69844 ERIKA MELENDREZS OUTPATIEN 3 3 DON DON T VISIT 15 MINUTES [facility] LUCY - 2 2 [facility] OFFICE 11247 ERIKA MELENDREZS OUTPATIEN 2 2 DON DON T VISIT 15 MINUTES [facility]OSP[facility] LUCY - 2 2 [facility] - 2 2 [facility] 2 2 [facility] OFFICE 90126 ERIKA JAMES OUTPATIEN 2 2 DON DON T VISIT 15 MINUTES OFFICE 98014 ERIKA MELENDREZS OUTPATIEN 1 1 DON DON T VISIT 15 MINUTES OFFICE 30953 ERIKA MELENDREZS OUTPATIEN 1 1 DON DON T VISIT 15 MINUTES OFFICE 67676 ERIKA MELENDREZS OUTPATIEN 1 1 DON DON T VISIT 15 MINUTES OFFICE 20022 ERIKA MELENDREZS OUTPATIEN 1 1 DON DON T VISIT 15 MINUTES [facility] 0 [facility] OFFICE 34259 JAMESERIKA VELASCO OUTPATIRYLEE 0 0 DON R DON R T VISIT 15 MINUTES OFFICE 95749 ERIKA JAMES OUTPATIRYLEE 0 0 DON R DON R T VISIT 25 MINUTES OFFICE 26296 ERIKA JAMES OUTPATIRYLEE 0 0 DON R DON R T VISIT 15 MINUTES OFFICE 42796 ERIKA JAMES OUTPATIEN 8 8 DON R DON R T VISIT 15 MINUTES OFFICE 30431 ERIKA JAMES OUTPATIEN 8 8 DON R DON R T VISIT 15 MINUTES OFFICE 87324 ERIKA JAMES OUTPATIEN 8 8 DON R DON R T VISIT 15 MINUTES OFFICE 98892 ERIKA JAMES OUTPATIEN 8 8 DON R DON R T VISIT 15 MINUTES OFFICE 59567 ERIKA JAMES OUTPATIEN 8 8 DON R DON R T VISIT 15 MINUTES
--- OUTSIDE RECORDS SUMMARY | 2016-12-05 18:58 | External Medical Summary Rpt ---
Author Author , SOUMYA PEREIRA Address Unknown Phone [email or web address] Immunization Name Date Rout CVX Reac Dose Comm Prov Is Faci e tion ent ider Refu lity Give sed n PPV2 07-0 33 999 Hist D203 No D203 3 1-20 oric 45 45 16 al Info rmat ion - Sour ce Unsp ecif ied PPV2 05-3 33 0.5 Hist [facility] No [facility] 3 1-20 mL oric 1 1 16 al Info rmat ion - Sour ce Unsp ecif ied
--- OUTSIDE RECORDS SUMMARY | 2016-12-05 18:58 | External Medical Summary Rpt ---
Author Author , SOUMYA PEREIRA Address Unknown Phone [email or web address] Immunization Name Date Rout CVX Reac Dose [...]
--- OUTSIDE RECORDS SUMMARY | 2016-12-05 18:59 | External Medical Summary Rpt ---
Author Author [employer], [employer] Organization [employer] Address Unknown Phone Unavailable Results CBC W Auto Differential panel in Blood Observa Value Referen Units Interpr Notes Date tion ce etation Range Basophils 0 - 0.2 K/MM3 Normal No Nov 16 informati 2016 5:35 [#/volume on in AM ] in source Blood by data Automated count Basophils 0.1 - 2.0 % Normal No Nov 16 / informati 2016 5:35 leukocyte on in AM s in source Blood by data Automated count Eosinophi 0.0 - 0.4 K/mm3 Normal No Nov 16 ls informati 2016 5:35 [#/volume on in AM ] in source Blood by data Automated count Eosinophi 0.1 - % Normal No Nov 16 ls/100 12.0 informati 2016 5:35 leukocyte on in AM s in source Blood by data Automated count Granulocy 1.3 - 8.0 K/mm3 High No Nov 16 anisa informati 2016 5:35 [#/volume on in AM ] in source Blood by data Automated count Granulocy 37.0 - % Normal No Nov 16 anisa/100 80.0 informati 2016 5:35 leukocyte on in AM s in source Blood by data Automated count Hematocri 42.0 - % Normal No Nov 16 t [Volume 52.0 informati 2016 5:35 on in AM Fraction] source of Blood data Hemoglobi 14.1 - g/dL No No Nov 16 n 18.0 informati informati 2016 5:35 [Mass/vol on in on in AM ume] in source source Blood data data Lymphocyt 0.7 - 4.5 K/mm3 Normal No Nov 16 es informati 2016 5:35 [#/volume on in AM ] in source Unspecifi data ed specimen by Automated count Lymphocyt 10 - 50 % Normal No Nov 16 es informati 2016 5:35 [#/volume on in AM ] in source Unspecifi data ed specimen by Automated count Erythrocy 27 - 31.2 pg Normal No Nov 16 te mean informati 2016 5:35 corpuscul on in AM ar source hemoglobi data n [Entitic mass] Erythrocy 31.8 - g/dl Normal No Nov 16 te mean 35.4 informati 2016 5:35 corpuscul on in AM ar source hemoglobi data n concentra tion [Mass/vol ume] by Automated count Erythrocy 82.2 - fl Normal No Nov 16 te mean 97.8 informati 2016 5:35 corpuscul on in AM ar volume source [Entitic data volume] by Automated count Monocytes 0.1 - 1.0 K/mm3 Normal No Nov 16 informati 2016 5:35 [#/volume on in AM ] in source Blood by data Automated count Monocytes 1.7 - 9.3 % Normal No Nov 16 /100 informati 2016 5:35 leukocyte on in AM s in source Blood by data Automated count Platelet 7.4 - fl Normal No Nov 16 mean 10.4 informati 2016 5:35 volume on in AM [Entitic source volume] data in Blood by Automated count Platelets 142 - 424 K/mm3 Normal No Nov 16 informati 2016 5:35 [#/volume on in AM ] in source Blood data Erythrocy 4.6 - 6.2 M/mm3 Normal No Nov 16 anisa informati 2016 5:35 [#/volume on in AM ] in source Amniotic data fluid Erythrocy 11.5 - % Normal No Nov 16 te 17.5 informati 2016 5:35 distribut on in AM ion width source [Entitic data volume] by Automated count Leukocyte 4.8 - K/MM3 High No Nov 16 s 10.8 informati 2016 5:35 [#/volume on in AM ] in source Blood data Basic metabolic panel in Blood Observa Value Referen Units Interpr Notes Date tion ce etation Range Urea 7 - 18 mg/dL High No Nov 16 nitrogen informati 2016 5:35 [Mass/vol on in AM ume] in source Serum or data Plasma Calcium 8.5 - mg/dL Low No Nov 16 [Mass/vol 10.1 informati 2016 5:35 ume] in on in AM Serum or source Plasma data Chloride 98 - 107 mmoL/L Normal No Nov 16 [Moles/vo informati 2016 5:35 lume] in on in AM Serum or source Plasma data Carbon 21.0 - mmoL/L Normal No Nov 16 dioxide, 32.0 informati 2016 5:35 total on in AM [Moles/vo source lume] in data Serum or Plasma Creatinin 0.70 - mg/dL No No Nov 16 e 1.30 informati informati 2016 5:35 [Mass/vol on in on in AM ume] in source source Serum or data data Plasma Creatinin 50 - 200 ML/MIN No No Nov 16 e renal informati informati 2016 5:35 clearance on in on in AM source source predicted data data by Cockcroft -Gault formula Estimated >60 ML/MIN No REFERENCE Nov 16 informati RANGE: 2016 5:35 glomerula on in >60 AM r source ML/MIN/1. filtratio data 73 SQUARE n rate METERSIf (GF this patient is -A merican, then multiply theresult by 1.210. Glucose 74 - 106 mg/dL Normal No Nov 16 [Mass/vol informati 2016 5:35 ume] in on in AM Serum or source Plasma data Potassium 3.5 - 5.1 mmoL/L Normal No Nov 162016 5:35 [Moles/vo on in AM lume] in source Serum or data Plasma Sodium 136 - 145 mmoL/L Normal No Nov 16 [Moles/vo ati 2016 5:35 lume] in on in AM Serum or source Plasma data CBC W Auto Differential panel in Blood Observa Value Referen Units Interpr Notes Date tion ce etation Range Basophils 0 - 0.2 K/MM3 Normal No Nov 152016 2:30 [#/volume on in PM ] in source Blood by data Automated count Basophils 0.1 - 2.0 % Normal No Nov 15 informati 2016 2:30 leukocyte on in PM s in source Blood by data Automated count Eosinophi 0.0 - 0.4 K/mm3 Normal No Nov 15 ls informati 2016 2:30 [#/volume on in PM ] in source Blood by data Automated count Eosinophi 0.1 - % Normal No Nov 15 ls 12.0 informati 2016 2:30 leukocyte on in PM s in source Blood by data Automated count Granulocy 1.3 - 8.0 K/mm3 High No Nov 15 anisa informati 2016 2:30 [#/volume on in PM ] in source Blood by data Automated count Granulocy 37.0 - % High No Nov 15 anisa 80.0 informati 2017 2:30 leukocyte on in PM s in source Blood by data Automated count Hematocri 42.0 - % Normal No Nov 15 t [Volume 52.0 informati 2016 2:30 on in PM Fraction] source of Blood data Hemoglobi 14.1 - g/dL Normal No Nov 15 n 18.0 informati 2016 2:30 [Mass/vol on in PM ume] in source Blood data Lymphocyt 0.7 - 4.5 K/mm3 Normal No Nov 15 es informati 2016 2:30 [#/volume on in PM ] in source Unspecifi data ed specimen by Automated count Lymphocyt 10 - 50 % Low No Nov 15 es informati 2016 2:30 [#/volume on in PM ] in source Unspecifi data ed specimen by Automated count Erythrocy 27 - 31.2 pg Normal No Nov 15 te mean informati 2016 2:30 corpuscul on in PM ar source hemoglobi data n [Entitic mass] Erythrocy 31.8 - g/dl Normal No Nov 15 te mean 35.4 informati 2016 2:30 corpuscul on in PM ar source hemoglobi data n concentra tion [Mass/vol ume] by Automated count Erythrocy 82.2 - fl Normal No Nov 15 te mean 97.8 informati 2016 2:30 corpuscul on in PM ar volume source [Entitic data volume] by Automated count Monocytes 0.1 - 1.0 K/mm3 Normal No Nov 15 inform2016 2:30 [#/volume on in PM ] in source Blood by data Automated count Monocytes 1.7 - 9.3 % Normal No Nov 15 /100 informati 2016 2:30 leukocyte on in PM s in source Blood by data Automated count Platelet 7.4 - fl Normal No Nov 15 mean 10.4 informati 2016 2:30 volume on in PM [Entitic source volume] data in Blood by Automated count Platelets 142 - 424 K/mm3 Normal No Nov 15 informati 2016 2:30 [#/volume on in PM ] in source Blood data Erythrocy 4.6 - 6.2 M/mm3 High No Nov 15 anisa informati 2016 2:30 [#/volume on in PM ] in source Amniotic data fluid Erythrocy 11.5 - % Normal No Nov 15 te 17.5 informati 2016 2:30 distribut on in PM ion width source [Entitic data volume] by Automated count Leukocyte 4.8 - K/MM3 High No Nov 15 s 10.8 alert ati 2016 2:30 [#/volume on in PM ] in source Blood data Differential panel, method unspecified - Observa Value Referen Units Interpr Notes Date ti ce etation Range Lymphocyt 0 - 5 % Normal No Nov 15 es 2016 2:30 Variant/1 on in PM 00 source leukocyte data s in Blood by Manual count LYMPH 7 10 - 50 % Low No Nov 15 inform2016 tion in 2:30 PM source data Monocytes 2 - 9 % Normal No Nov 15 /100 informati 2016 2:30 leukocyte on in PM s in source Blood by data Automated count Platele NORMAL No No No No Nov 15 ts informa informa informa informa 2016 [Presen tion in tion in tion in tion in 2:30 PM ce] in source source source source Blood data data data data by Light microsc opy Neutrophi 42 - 76 % High No Nov 15 ls 2016 2:30 [#/volume on in PM ] in source Blood by data Automated count Erythro NORMAL No No No No Nov 15 cyte informa informa informa informa 2017 morphol tion in tion in tion in tion in 2:30 PM ogy source source source source finding data data data data [Identi fier] in Blood Cells No #CELLS No No Nov 15 Counted informati informati informati 2016 2:30 Total [#] on in on in on in PM in Blood source source source data data data CBC W Auto Differential panel in Blood Observa Value Referen Units Interpr Notes Date ti ce etation Range Granulocy 1.3 - 8.0 K/mm3 High No Nov 09 anisa 2016 [#/volume on in 10:03 AM ] in source Blood by data Automated count Granulocy 37.0 - % High No Nov 09 anisa/100 80.0 2016 leukocyte on in 10:03 AM s in source Blood by data Automated count Hematocri 42.0 - % Normal No Nov 09 t [Volume 52.0 2016 on in 10:03 AM Fraction] source of Blood data Hemoglobi 14.1 - g/dL Normal No Nov 09 n 18.0 2016 [Mass/vol on in 10:03 AM ume] in source Blood data Lymphocyt 0.7 - 4.5 K/mm3 Normal No Nov 09 es inform2016 [#/volume on in 10:03 AM ] in source Unspecifi data ed specimen by Automated count Lymphocyt 10 - 50 % Normal No Nov 09 es inform2016 [#/volume on in 10:03 AM ] in source Unspecifi data ed specimen by Automated count Erythrocy 27 - 31.2 pg Low No Nov 09 te mean 2016 corpuscul on in 10:03 AM ar [...] - 1.0 K/mm3 Normal No Nov 09 inform2016 [#/volume on in 10:03 AM ] in source Blood by data Automated count Monocytes 1.7 - 9.3 % Normal No Nov 09 /2016 leukocyte on in 10:03 AM s in [...] - 50 % Normal No Nov 09 inform2016 tion in 10:03 source AM data Monocytes [...] 76 % High No Nov 09 ls inform2016 [#/volume on in 10:03 AM ] in source Blood by data Automated count Cells No #CELLS No No Nov 09 Counted informati informati informati 2016 Total [#] on in on in on in 10:03 AM in Blood source source source data data data Digoxin [Mass/volume] in Serum or Plasma Observa Value Referen Units Interpr Notes Date tion ce etation Range Digoxin 1.15 - ng/mL Normal No Nov 05 [Mass/vol 2.56 ati 2016 3:46 ume] in on in PM Serum or source Plasma data CBC W Auto Differential panel in Blood Observa Value Referen Units Interpr Notes Date tion ce etation Range Basophils 0 - 0.2 K/MM3 Normal No Nov 05 inform2016 6:30 [#/volume on in AM ] in source Blood by data Automated count Basophils 0.1 - 2.0 % Normal No Nov 05 informati 2016 [...] No Nov 05 t [Volume 52.0 informati 2017 6:30 on in AM Fraction] source of Blood data Hemoglobi 14.1 - g/dL Normal No Nov 05 n 18.0 informati 2017 6:30 [Mass/vol on in AM ume] in source Blood data Lymphocyt 0.7 - 4.5 K/mm3 Normal No Nov 05 es informati 2017 6:30 [#/volume on in AM ] in source Unspecifi data ed specimen by Automated count Lymphocyt 10 - 50 % Normal No Nov 05 es informati 2016 6:30 [#/volume on in AM ] in source Unspecifi data ed specimen by Automated count Erythrocy 27 - 31.2 pg Low No Nov 05 te mean informati 2017 6:30 corpuscul on in AM ar source hemoglobi data n [Entitic mass] Erythrocy 31.8 - g/dl Normal No Nov 05 te mean 35.4 informati 2017 6:30 corpuscul on in AM ar source hemoglobi data n concentra tion [Mass/vol ume] by Automated count Erythrocy 82.2 - fl Normal No Nov 05 te mean 97.8 informati 2017 6:30 corpuscul on in AM ar volume source [Entitic data volume] by Automated count Monocytes 0.1 - 1.0 K/mm3 High No Nov 05 informati 2017 6:30 [#/volume on in AM ] in source Blood by data Automated count Monocytes 1.7 - 9.3 % Normal No Nov 05 /100 informati 2017 6:30 leukocyte on in AM s in source Blood by data Automated count Platelet 7.4 - fl Normal No Nov 05 mean 10.4 informati 2017 6:30 volume on in AM [Entitic source volume] data in Blood by Automated count Platelets 142 - 424 K/mm3 No No Nov 05 informati informati 2017 6:30 [#/volume on in on in AM ] in source source Blood data data Erythrocy 4.6 - 6.2 M/mm3 Normal No Nov 05 anisa informati 2017 6:30 [#/volume on in AM ] in source Amniotic data fluid Erythrocy 11.5 - % Normal No Nov 05 te 17.5 informati 2017 6:30 distribut on in AM ion width source [Entitic data volume] by Automated count Leukocyte 4.8 - K/MM3 High No Nov 05 s 10.8 alert informati 2017 6:30 [#/volume on in AM ] in [...] - 9 % Normal No Nov 05 /100 informati 2016 6:30 leukocyte on in AM [...] gm/dL Low No Nov 05 [Mass/vol informati 2017 6:30 ume] in on in AM Serum [...] mg/dL High No Nov 05 nitrogen informati 2017 6:30 [Mass/vol on in AM ume] in [...] Normal No Nov 05 e 1.30 informati 2017 6:30 [Mass/vol on in AM ume] in source Serum or data Plasma Creatinin 50 - 200 ML/MIN Normal No Nov 05 e renal informati 2017 6:30 clearance on in AM source predicted [...] 3.5 - 5.1 mmoL/L Normal No Nov 05 informati 2016 6:30 [Moles/vo on in AM lume] in source Serum or data Plasma Sodium 136 - 145 mmoL/L Normal No Nov 05 [Moles/vo informati 2017 6:30 lume] in on in AM Serum or source Plasma data Aspartate 15 - 37 U/L Low No Nov 05 informati 2016 6:30 aminotran on in AM sferase source [Enzymati data c activity/ volume] in Serum or Plasma Alanine 12 - 78 U/L Normal No Nov 05 aminotran informati 2016 6:30 sferase on in AM [Enzymati source c data activity/ volume] in Serum or Plasma Protein 6.4 - 8.2 gm/dL Normal No Nov 05 [Mass/vol informati 2017 6:30 ume] in on in AM Serum or source Plasma data CBC W Auto Differential panel in Blood Observa Value Referen Units Interpr Notes Date tion ce etation Range Basophils 0 - 0.2 K/MM3 Normal No Nov 02 informati 2016 6:15 [#/volume on in AM ] in source Blood by data Automated count Basophils 0.1 - 2.0 % Normal No Nov 02 /100 informati 2017 6:15 leukocyte on in AM [...] 37.0 - % Normal No Nov 02 anisa/100 80.0 informati 2016 6:15 leukocyte on in AM s in source Blood by data Automated count Hematocri 42.0 - % Normal No Nov 02 t [Volume 52.0 informati 2016 6:15 on in AM Fraction] source of Blood data Hemoglobi 14.1 - g/dL Normal No Nov 02 n 18.0 informati 2016 6:15 [Mass/vol on in AM ume] in source Blood data Lymphocyt 0.7 - 4.5 K/mm3 High No Nov 02 es informati 2016 6:15 [#/volume on in AM ] in source Unspecifi data ed specimen by Automated count Lymphocyt 10 - 50 % Normal No Nov 02 es informati 2016 6:15 [...] No Nov 02 te mean 97.8 informati 2016 6:15 corpuscul on in AM ar volume source [Entitic data volume] by Automated count Monocytes 0.1 - 1.0 K/mm3 Normal No Oct 14 informati 2016 6:15 [#/volume on in AM ] in source Blood by data Automated count Monocytes 1.7 - 9.3 % Normal No Oct 14 /100 informati 2017 6:15 leukocyte on in AM s in source Blood by data Automated count Platelet 7.4 - fl Normal No Nov 02 mean 10.4 informati 2016 6:15 volume on in AM [Entitic source volume] data in Blood by Automated count Platelets 142 - 424 K/mm3 Low No Nov 02 informati 2016 6:15 [#/volume on in AM ] in source Blood data Erythrocy 4.6 - 6.2 M/mm3 Normal No Nov 02 anisa informati 2016 6:15 [#/volume on in AM ] in source Amniotic data fluid Erythrocy 11.5 - % Normal No Nov 02 te 17.5 informati 2016 6:15 distribut on in AM ion width [...] % Normal No Nov 02 ls.band informati 2017 6:15 form/100 on in AM leukocyte source [...] - 50 % Normal No Nov 02 inform2016 tion in 6:15 AM source data Blood 1+ No No No No Cordell 14 smear informa informa informa informa 2017 finding tion in tion in tion in tion in 6:15 AM source source source source [Identi data data data data fier] in Blood by Light microsc opy Monocytes 2 - 9 % Normal No Oct 14 /100 informati 2017 6:15 leukocyte on in AM s in source Blood by data Automated count Platele MOD No No No No Nov 02 ts DECREAS informa informa informa informa 2017 [Presen E tion in tion in tion [...] Low No Nov 02 [Mass/vol 10.1 informati 2017 6:15 ume] in on in AM Serum or source Plasma data Chloride 98 - 107 mmoL/L Normal No Nov 02 [Moles/vo informati 2017 6:15 lume] in on in AM Serum or source Plasma data Carbon 21.0 - mmoL/L Normal No Nov 02 dioxide, 32.0 informati 2016 6:15 total on in AM [Moles/vo source lume] in data Serum or Plasma Creatinin 0.70 - mg/dL Normal No Nov 02 e 1.30 informati 2017 6:15 [Mass/vol on in AM ume] in source Serum or data Plasma Creatinin 50 - 200 ML/MIN Normal No Nov 02 e renal informati 2017 6:15 clearance on in AM source predicted data by Cockcroft -Gault formula Estimated >60 ML/MIN No REFERENCE Nov 02 informati RANGE: 2017 6:15 glomerula on in >60 AM r source ML/MIN/1. filtratio data 73 SQUARE n rate METERSIf (GF this patient is -A merican, then multiply theresult by 1.210. Glucose 74 - 106 mg/dL Normal No Nov 02 [Mass/vol informati 2017 6:15 ume] in on in AM Serum or source Plasma data Potassium 3.5 - 5.1 mmoL/L Normal No Nov 02 informati 2017 6:15 [Moles/vo on in AM lume] in source Serum or data Plasma Sodium 136 - 145 mmoL/L Normal No Nov 02 [Moles/vo informati 2016 6:15 lume] in on in AM Serum or source Plasma data Lactate [Moles/volume] in Blood Observa Value Referen Units Interpr Notes Date tion ce etation Range Lactate 0.4 - 2.0 mmol/L Normal No Nov 01 [Moles/vo informati 2016 lume] in on in [...] No Nov 01 a informa informa informa 2016 [Presen tion [...] No Nov 01 gravity 1.030 informati informati 2016 of Urine on in on in [...] Normal No Nov 01 Urine informati informati 2016 on in on in 12:15 AM source source data data Protein NEG mg/dL No No Nov 01 [Mass/vol informati informati 2016 ume] in on in on in 12:15 AM Urine by source source Automated data data test strip Specific 1.005 - No Normal No Nov 01 gravity 1.030 informati informati 2016 of Urine on in on in 12:15 AM source source data data Urobili 0.2 NEG E.U./dL No No Nov 01 nogen informa informa 2016 [Presen tion in tion in 12:15 ce] in source source AM Urine data data by Test strip Digoxin [Mass/volume] in Serum or Plasma Observa Value Referen Units Interpr Notes Date ti ce etation Range Digoxin 1.15 - ng/mL Normal No Nov 01 [Mass/vol 2.56 informati 2016 ume] in on in Serum or source Plasma data CBC W Auto Differential panel in Blood Observa Value Referen Units Interpr Notes Date ti ce etation Range Basophils 0 - 0.2 K/MM3 Normal No Oct 31 informati 2016 9:52 [#/volume on in PM ] in source Blood by data Automated count Basophils 0.1 - 2.0 % Normal No Oct 31 informati 2016 9:52 leukocyte on in PM s in source Blood by data Automated count Eosinophi 0.0 - 0.4 K/mm3 High No Oct 31 ls informati 2016 9:52 [#/volume on in PM ] in source Blood by data Automated count Eosinophi 0.1 - % Normal No Oct 31 ls/100 12.0 informati 2017 9:52 leukocyte on in PM s in source Blood by data Automated count Granulocy 1.3 - 8.0 K/mm3 High No Oct 31 anisa informati 2016 9:52 [#/volume on in PM ] in source Blood by data Automated count Granulocy 37.0 - % Normal No Oct 31 anisa/100 80.0 informati 2017 9:52 leukocyte on in PM s in source Blood by data Automated count Hematocri 42.0 - % Normal No Oct 31 t [Volume 52.0 informati 2016 9:52 on in PM Fraction] source of Blood data Hemoglobi 14.1 - g/dL No Oct 31 n 18.0 informati informati [...] - 9.3 % Normal No Oct 31 informati 2016 9:52 leukocyte on in PM s in source Blood by data Automated count Platelet 7.4 - fl Normal No Oct 31 mean 10.4 informati 2016 9:52 volume on in PM [Entitic source volume] data in Blood by Automated count Platelets 142 - 424 K/mm3 Normal No Oct 31 inform2016 9:52 [#/volume on in PM ] in source Blood data Erythrocy 4.6 - 6.2 M/mm3 Normal No Oct 31 anisa ati 2016 9:52 [#/volume on in PM ] in source Amniotic data fluid Erythrocy 11.5 - % Normal No Oct 31 te 17.5 informati 2016 9:52 distribut on in PM ion width source [Entitic data volume] by Automated count Leukocyte 4.8 - K/MM3 High No Oct 31 s 10.8 alert ati 2016 9:52 [#/volume on in PM ] in source Blood data Differential panel, method unspecified - Observa Value Referen Units Interpr Notes Date tion ce etation Range Anisocy 1+ No No No No Oct 31 tosis informa informa informa informa 2016 [Presen tion in tion in tion in tion in 9:52 PM ce] in source source source source Blood data data data data Eosinophi 0 - 3 % High No Oct 31 ls/100 informati 2016 9:52 leukocyte on in PM s in source Blood by data Manual count LYMPH 27 10 - 50 % Normal No Oct [id number] tion in 9:52 PM source data Monocytes 2 - 9 % Normal No Oct 31ati 2016 9:52 leukocyte on in PM s in source Blood by data Automated count Platele NORMAL No No No No Oct 31 ts informa informa informa informa 2016 [Presen tion in tion in tion in tion in 9:52 PM ce] in source source source source Blood data data data data by Light microsc opy Neutrophi 42 - 76 % Normal No Oct 31 ls ati 2016 9:52 [#/volume on in PM ] in source Blood by data Automated count Cells No #CELLS No No Oct 31 Counted ati ati ati 2016 9:52 Total [#] on in on in on in PM in Blood source source source data data data CBC W Auto Differential panel in Blood Observa Value Referen Units Interpr Notes Date tion ce etation Range Basophils 0 - 0.2 K/MM3 Normal No Oct 27 informati 2016 4:10 [#/volume on in AM ] in source Blood by data Automated count Basophils 0.1 - 2.0 % Normal No Oct 27 /100 informati 2016 4:10 leukocyte on in AM s in source Blood by data Automated count Eosinophi 0.0 - 0.4 K/mm3 Normal No Oct 27 ls informati 2016 4:10 [#/volume on in AM ] in source Blood by data Automated count Eosinophi 0.1 - % Low No Oct 27 ls/100 12.0 informati 2016 4:10 leukocyte on in AM s in source Blood by data Automated count Granulocy 1.3 - 8.0 K/mm3 High No Oct 27 anisa informati 2016 4:10 [#/volume on in AM ] in source Blood by data Automated count Granulocy 37.0 - % High No Oct 27 anisa/100 80.0 informati 2016 4:10 leukocyte on in AM s in source Blood by data Automated count Hematocri 42.0 - % Normal No Oct 27 t [Volume 52.0 informati 2016 4:10 on in AM Fraction] source of Blood data Hemoglobi 14.1 - g/dL Low No Oct 27 n 18.0 informati 2016 4:10 [Mass/vol on in AM ume] in source Blood data Lymphocyt 0.7 - 4.5 K/mm3 Normal No Oct 27 es informati 2016 4:10 [#/volume on in AM ] in source Unspecifi data ed specimen by Automated count Lymphocyt 10 - 50 % Normal No Oct 27 es 2016 4:10 [#/volume on in AM ] in source Unspecifi data ed specimen by Automated count Erythrocy 27 - 31.2 pg Low No Oct 27 te mean informati 2016 4:10 corpuscul on in AM ar source hemoglobi data n [Entitic mass] Erythrocy 31.8 - g/dl Low Oct 27 te mean 35.4 informati 2016 4:10 corpuscul on in AM ar source hemoglobi data n concentra tion [Mass/vol ume] by Automated count Erythrocy 82.2 - fl Normal Oct 27 te mean 97.8 informati 2016 4:10 corpuscul on in AM ar volume source [Entitic data volume] by Automated count Monocytes 0.1 - 1.0 K/mm3 Normal No Cordell 8 informati 2016 4:10 [#/volume on in AM ] in source Blood by data Automated count Monocytes 1.7 - 9.3 % Normal No Oct 8 /100 informati 2016 4:10 leukocyte on in AM s in source Blood by data Automated count Platelet 7.4 - fl Normal No Oct 27 mean 10.4 ati 2016 4:10 volume on in AM [Entitic source volume] data in Blood by Automated count Platelets 142 - 424 K/mm3 Normal No Oct 27 informati 2016 4:10 [#/volume on in AM ] in source Blood data Erythrocy 4.6 - 6.2 M/mm3 Normal No Oct 27 anisa informati 2016 4:10 [#/volume on in AM [...] 8 % Normal No Oct 27 ls.band ati 2016 4:10 form/100 on in AM leukocyte source [...] data data data by Light microsc opy Parvezlo SL. No No No No Oct 27 [...] in source Blood by data Automated count Boaz SL. No No No No Oct 27 x informa informa informa informa 2016 [Presen tion in tion in tion in tion in 4:10 AM ce] in source source source source Blood data data data data by Light microsc opy Cells No #CELLS No No Oct 27 Counted informati informati informati 2016 4:10 Total [#] on in on in on in AM in Blood source source source data data data Basic metabolic panel in Blood Observa Value Referen Units Interpr Notes Date tion ce etation Range Urea 7 - 18 mg/dL High No Oct 27 nitrogen informati 2016 4:10 [Mass/vol on in AM ume] in source Serum or data Plasma Calcium 8.5 - mg/dL Low No Oct 27 [Mass/vol 10.1 informati 2016 4:10 ume] in on in AM Serum or source Plasma data Chloride 98 - 107 mmoL/L Normal No Oct 27 [Moles/vo informati 2016 4:10 lume] in on in AM Serum or source Plasma data Carbon 21.0 - mmoL/L High No Oct 27 dioxide, 32.0 informati 2017 4:10 total on in AM [Moles/vo source [...] - 2.0 % Normal No Oct 25 / informati 2016 5:30 leukocyte on in AM [...] No Oct 25 t [Volume 52.0 informati 2016 5:30 on in AM Fraction] source of Blood data Hemoglobi 14.1 - g/dL Normal No Oct 25 n 18.0 informati 2016 5:30 [Mass/vol on in AM [...] Low No Oct 25 te mean informati 2016 5:30 corpuscul on in AM ar source [...] 0.1 - 1.0 K/mm3 Normal No Oct 252016 5:30 [#/volume on in AM ] in source Blood by data Automated count Monocytes 1.7 - 9.3 % Low No Oct 6 /100 informati 2016 5:30 leukocyte on in AM s in source Blood by data Automated count Platelet 7.4 - fl Normal No Oct 25 mean 10.4 2016 5:30 volume on in AM [Entitic source volume] data in Blood by Automated count Platelets 142 - 424 K/mm3 Normal No Oct 25 inform2016 5:30 [#/volume on in AM ] in source Blood data Erythrocy 4.6 - 6.2 M/mm3 Normal No Oct 25 anisa ati 2016 5:30 [#/volume on in AM ] in source Amniotic data fluid Erythrocy 11.5 - % Normal No Oct 25 te 17.5 informati 2016 5:30 distribut on in AM ion width [...] Oct 24 nce of informa informa informa 2016 Urine tion [...] No No Oct 24 [Mass/vol informati informati 2017 5:10 ume] in on [...] No No Oct 24 ial informa informa 2017 cells.s tion in tion in 5:10 PM [...] Oct 24 nce of informa informa informa 2016 Urine tion [...] No No Oct 24 nogen informa informa 2017 [Presen tion in tion in 5:10 PM ce] in source source Urine data data by Test strip Natriutietic peptide B [Mass/volume] in Serum or Plasma Observa Value Referen Units Interpr Notes Date ti ce etation Range Natriutie 0 - 100 pg/mL Normal No Oct 24 tic 2016 2:35 peptide B on in PM source [Mass/vol data ume] in Serum or Plasma CBC W Auto Differential panel in Blood Observa Value Referen Units Interpr Notes Date ce etation Range Basophils 0 - 0.2 K/MM3 Normal No Oct 24 inform2016 2:35 [#/volume on in PM ] in source Blood by data Automated count Basophils 0.1 - 2.0 % Normal No Oct 24 inform2016 2:35 leukocyte on in PM s in source Blood by data Automated count Eosinophi 0.0 - 0.4 K/mm3 High No Oct 24 ls ati 2016 2:35 [#/volume on in PM ] in source Blood by data Automated count Eosinophi 0.1 - % High No Oct 24 ls/100 12.0 informati 2016 2:35 leukocyte on in PM s in source Blood by data Automated count Granulocy 1.3 - 8.0 K/mm3 High No Oct 24 anisa 2016 2:35 [#/volume on in PM ] in source Blood by data Automated count Granulocy 37.0 - % Normal No Oct 24 anisa/100 80.0 ati 2016 2:35 leukocyte on in PM s [...] 4.5 K/mm3 High No Oct 24 es informati 2016 2:35 [#/volume on in PM ] in source Unspecifi data ed specimen by Automated count Lymphocyt 10 - 50 % Normal No Oct 24 es informati 2016 2:35 [#/volume on in PM [...] 0.1 - 1.0 K/mm3 Normal No Oct 24 inform2016 2:35 [#/volume [...] - 424 K/mm3 No No Oct 24ati informati 2016 2:35 [#/volume on in on in PM [...] 0 - 1 % High No Oct 24ati 2016 2:35 leukocyte on in PM s in source Blood by data Automated count Eosinophi 0 - 3 % High No Oct 24 lsati 2016 2:35 leukocyte on in PM s in source Blood by data Manual count LYMPH 34 10 - 50 % Normal No Oct 242016 tion in 2:35 PM source data Monocytes 2 - 9 % Normal No Oct 242016 2:35 leukocyte on in PM s in source Blood by data Automated count Platele NORMAL No No No No Oct 24 ts informa a inform inform2016 [Presen tion in tion in [...] Interpr Notes Date ti ce etation Range IS PATIENT ON ANTICOAGULANTS? N PTT RESULTS MUST BE CALLED IF PT ON HEPARIN!!! Y INR in 0.9 - 1.1 No No RAN ON Oct 24 Blood by informati informati THE SX2 2016 2:35 Coagulati on in on in [id number] PM on assay source source CATION data data INR RANGETHER APY FOR DVT, PE, ATRIAL FIB; 2.0 - 3.0PROPHY LAXIS FOR VTETHERAP Y FOR MECHANICA L HEART 2.5 - 3.5VALVE; PREVENTIO N OF SYSTEMICE MBOLISM SECONDARY TO AMI Prothromb 9.4 - SECONDS Normal No Oct 24 in time 11.8 inform2016 2:35 (PT) in on in PM Platelet source poor data plasma by Coagulati on assay Activated partial thrombplastin time (aPTT) in Platelet poor plasma by Coagulation assay Observa Value Referen Units Interpr Notes Date ti ce etation Range IS PATIENT ON ANTICOAGULANTS? [...] 18 mg/dL Normal No September 14 nitrogen ati 2016 [Mass/vol on in 12:22 PM ume] [...]
--- OUTSIDE RECORDS SUMMARY | 2016-12-05 18:59 | External Medical Summary Rpt ---
[...] 2016 2:35 Coagulati on in on in [id number] PM on assay source source CATION data [...]
[2016-12-05 19:00] LABS: NEUTROPHILS 59 % (42-76)
[2016-12-05 19:24] LABS: VENOUS ABE -2.3 MMOL/L (-2.4-2.3)
--- OUTSIDE RECORDS SUMMARY | 2016-12-05 20:00 | External Medical Summary Rpt ---
Author Author , RANDALL REISCAROLINA Address Unknown Phone [email or web address] Care Team Providers Care Shirt Finisher Name Role Phone A Kristy QUEZADA MD [...] Unavailable ROBBINS JESS, ROBBINS Unavailable Unavailable JESS [facility] Unavailable Unavailable SERVICE, [facility] Unavailable Unavailable SERVICE, [facility] Unavailable [...] Unavailable TAYLOR KEYANA, TAYLOR Unavailable Unavailable KEYANA [facility] Unavailable Unavailable INC, [facility] Unavailable Unavailable HOSPITAL P, [facility] DONTE RUIZ A, Unavailable Unavailable DONTE RUIZ A [facility], Unavailable Unavailable [facility] ARMENDARIZ JENNA, ARMENDARIZ JENNA Unavailable Unavailable HUI MIKHAIL, HUI MIKHAIL Unavailable Unavailable BECKY MAR, BECKY Unavailable Unavailable MAR [facility] Unavailable Unavailable IMAGING [facility], [facility] NINI, CALLIE W, Unavailable Unavailable NINI, CALLIE W [facility] Un[facility] Un[facility] Un[facility] GLENN JR, GLENN JR Unavailable Unavailable GLENN JR DWI, GLENN Unavailable Unavailable JR DWI [facility] Unavailable Unavailable INTERNAL MED, [facility] JAMES CON, JAMES [...] PAVEZ MAR, PAVEZ MAR Unavailable Unavailable PAULA JUREGN Unavailable Unavailable ANNEL, PAULA JURGEN ANNEL [facility] Unavailable Unavailable [facility], [id number], Unavailable Unavailable [id number] Unavailable Unavailable [id number] # [id number], [facility] [id number] # [id number] TANIYA ABIMAEL, TANIYA ABIMAEL Unavailable [...] Unavailable MADALYN OTTO SUSAN, OTTO Unavailable Unavailable SUSAN [facility], Unavailable Unavailable [facility] Unavailable [facility]available [facility] HIEU GAMEZ, HIEU Unavailable Unavailable [facility], Unavailable [facility]available [facility], Unavailable Unavailable [facility] MARINA NIXON, Unavailable Unavailable MARINA NIXON Purpose Continuity of Care Document - 04-25-2007 through 2016 Problems Code Diagnosis DOS Provider Status 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 10-09-2016 [facility] E785 HYPERLIPIDE 10-04-2016 [facility] UNSPECIFIED GROUP I119 HYPERTENSIV 10-04-2016 [facility] E HEART PHYSICIANS DISEASE GROUP WITHOUT HEART FAILURE I2510 [facility] [place] 10-04-2016 [facility] 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 J449 CHRONIC 10-04-2016 [facility] OBSTRUCTIVE PHYSICIANS PULMONARY GROUP DISEASE UNS R0600 DYSPNEA 10-04-2016 [facility] UNSPECIFIED PHYSICIANS GROUP R0602 SHORTNESS 09-14-2016 [facility] R918 OTHER 09-14-2016 [facility] NONSPECIFIC MEDICAL ABNORMAL IMAGING ASS FINDING OF LUNG FIELD R938 ABNORMAL 09-14-2016 [facility] FIND ON DX [facility] IMAGING OTH INC SPEC BODY STRCT R9431 ABNORMAL 09-14-2016 [facility] ELECTROCARD [facility] IOGRAM INC J410 SIMPLE 09-04-2016 A Kristy GARLAND MD [facility] BRONCHITIS I4891 UNSPECIFIED 09-02-2016 [facility]IAL HOME FIBRILLATIO MEDICAL N EQUIPME I200 UNSTABLE 08-27-2016 [facility] ANGINA PHYSICIANS GROUP I10 ESSENTIAL 08-25-2016 [facility] P N Q87131 [facility] [place] 08-25-2016 [facility] P ANGINA PECTORIS I272 OTHER 08-25-2016 [facility] P HYPERTENSIO N R079 CHEST PAIN 08-25-2016 [facility] UNSPECIFIED [facility]ICAL IMAGING ASS I482 CHRONIC 06-14-2016 A Kristy QUEZADA ATRIAL [facility] FIBRILLATIO N J9610 CHRONIC 06-14-2016 Darnell QUEZADA RESPIRATORY [facility] FAIL UNS HYPOXIA/HYP ERCAPNIA R296 REPEATED 06-14-2016 A Kristy KHAN MD PSC J441 CHRONIC 05-25-2016 Darnell ANN MD [facility] PULMONARY DZ W/EXACERBAT ION B957 OT 05-14-2016 [...] [facility] INC R1110 VOMITING 01-09-2016 [facility] UNSPECIFIED PHYSICIANS GROUP K828 OTHER 01-02-2016 [facility] SPECIFIED MEDICAL DISEASES OF IMAGING ASS GALLBLADDER R630 ANOREXIA 01-02-2016 [facility] K921 MELENA 11-07-2015 [facility] K5710 DIVERTICULO 11-03-2015 [facility] SIS SM MEDICAL INTEST W/O IMAGING ASS PERF/ABSC W/O BLEED R195 OTHER FECAL 11-03-2015 [facility] ABNORMALITI IMAGING ASS ES 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[facility] IS PATHOLOGY SYMPTOMATIC LAB [...] 09-18-2015 [facility] R BLOCK SERV FOUNDATION I4510 UNSPECIFIED 09-15-2015 [facility] RIGHT SERV BUNDLE-BRAN FOUNDATION CH BLOCK R001 BRADYCARDIA 09-15-2015 [facility] UNSPECIFIED FOUNDATION B965 PSEUDOMONAS 09-14-2015 [facility] CAUSE OF SERV DZ FOUNDATION CLASSIFIED ELSEWHERE J9600 ACUTE 09-14-2015 [facility] RESPIRATORY SERV FAIL UNS FOUNDATION HYPOXIA/HYP ERCAPNIA J9811 ATELECTASIS 09-14-2015 [facility] D29013 ENCOUNTER 09-14-2015 [facility] SURG SERV AFTERCARE [...] UNSPECIFIED SERV ORGANISM FOUNDATION E873 ALKALOSIS 09-08-2015 [facility] E876 HYPOKALEMIA 09-08-2015 [facility] J90 PLEURAL 09-08-2015 [facility] EFFUSION SERV NOT FOUNDATION ELSEWHERE CLASSIFIED J9620 ACUTE 09-08-2015 [facility] CHRONIC SERV RESP FAIL FOUNDATION UNS HYPOXIA/HYP ERCAPNIA J984 OTHER 09-08-2015 [facility] DISORDERS SERV OF LUNG FOUNDATION R109 UNSPECIFIED 09-08-2015 [facility] ABDOMINAL SERV PAIN FOUNDATION Z4682 ENCOUNTER 09-08-2015 [facility] ADJUST HOSPI NON-VASCULA R CATHETER I459 [...] POSTPROCEDU FOUNDATION RAL STATES 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 K4030 UNILAT 08-25-2015 [place] INGUINAL [facility] NGUYEN W/OBST HOSPI W/O GANGRN NOT RECUR K4040 UNILAT 08-25-2015 [facility] INGUINAL SERV NGUYEN FOUNDATION W/GANGREN NOT SPEC RECUR Z7901 UTILITY HAND 08-25-2015 [facility] CURRENT USE SERV OF FOUNDATION ANTICOAGULA NTS Q00840 ELEVATED 08-24-2015 [facility] BLOOD [facility] P UNSPECIFIED K4090 UNILAT 08-24-2015 [facility] INGUINAL SERV NGUYEN W/O FOUNDATION OBST/GANGRE N NOT RECUR K5660 UNSPECIFIED 08-24-2015 [facility] OBSTRUCTION R1031 RIGHT LOWER 08-24-2015 [facility] PAIN HOSPI 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[facility] 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 J189 PNEUMONIA 08-03-2015 [facility] UNSPECIFIED MEDICAL ORGANISM IMAGING ASS J439 EMPHYSEMA 08-03-2015 [place] UNSPECIFIED [facility] INTERNAL MED J929 PLEURAL 08-03-2015 [facility] WITHOUT IMAGING ASS ASBESTOS R002 PALPITATION 08-03-2015 [facility] S SERV FOUNDATION R031 NONSPECIFIC 08-03-2015 [facility] LOW SERV BLOOD-PRESS FOUNDATION URE READING R42 DIZZINESS 08-03-2015 [facility] AND SERV GIDDINESS [facility] 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 MED J42 UNSPECIFIED 07-13-2015 [facility] CHRONIC MEDICAL BRONCHITIS IMAGING ASS Z7722 CONTACT W/ 07-13-2015 [facility] & SUSPECTED SERV EXPOS [facility] ENVIR TOBACCO SMOKE J40 BRONCHITIS 03-25-2015 [facility] NOT MEDICAL SPECIFIED IMAGING ASS ACUTE OR CHRONIC R091 PLEURISY 01-21-2015 [facility] 4280 CONGESTIVE 01-14-2015 [facility] FAILURE MEDICAL UNSPECIFIED EQUIPME 87535 OBSTRUCTIVE 01-14-2015 [facility] WITHOUT EXACERBAT 496 CHRONIC 01-14-[address] [facility] [address] HOME OBSTRUCTION MEDICAL NEC EQUIPME 78379 NUCLEAR 12-28-2014 [place] SCLEROSIS JAMILAH 35705 OBST 09-06-2014 A Kristy QUEZADA CHRONIC PSC BRONCHITIS W/ACUTE BRONCHITIS 05388 LOSS OF 09-06-2014 A Kristy QUEZADA WEIGHT PSC 38497 OTHER CHEST 09-06-2014 A Kristy QUEZADA PAIN PSC 29157 OBSTRUCTIVE 09-05-2014 [facility] SLEEP HOME APNEA MEDICAL EQUIPME 7242 LUMBAGO 04-01-2014 A Kristy QUEZADA MD PSC V0382 NEED PROPH 04-01-2014 A Kristy QUEZADA VACCINATION PSC AGAINST STREP PNEUMONE 57813 ATRIAL 01-13-2014 [facility] FIBRILLATIO [facility] N INC 08212 REFLUX 01-13-2014 [facility] ESOPHAGITIS [facility] INC 55048 UNS 01-13-2014 [facility] GASTRITIS&G [facility] ASTRODUODIT INC IS W/O MENTION HEMORR 67674 ABDOMINAL 01-13-2014 [facility] PAIN, [facility] GENERALIZED INC V5869 LONG-TERM 01-13-2014 [facility] (CURRENT) [facility] USE OF INC OTHER MEDICATIONS 48518 CHEST PAIN 11-24-2013 [facility] UNSPECIFIED [facility] INC 5110 PLEURISY 10-29-2013 [facility] WITHOUT MEDICAL MENTION IMAGING ASS EFFUS/CURRE NT TB 7862 COUGH 10-29-2013 [facility] 69745 INSOMNIA 12-16-2012 A Kristy QUEZADA UNSPECIFIED PSC 36882 OTHER 12-16-2012 A Kristy QUEZADA MALAISE AND PSC FATIGUE 90697 FEVER 05-23-2012 [facility] UNSPECIFIED DON 43292 WHEEZING 05-23-2012 J[facility] DON 1120 CANDIDIASIS 05-21-2012 [facility] OF MOUTH DON 47057 OTHER 05-21-2012 FRANCESCA DISEASES OF EMY LUNG NOT ELSEWHERE CLASSIFIED 4940 BRONCHIECTA 01-28-2012 [facility] SIS WITHOUT MEDICAL ACUTE IMAGING ASS EXACERBATIO N 5119 UNSPECIFIED 01-28-2012 [facility] PLEURAL MEDICAL EFFUSION IMAGING ASS 00292 OTHER 01-28-2012 [facility] NONSPECIFIC [facility] ABNORMAL INC FINDING OF LUNG FIELD 14697 OSTEOARTHRO 01-02-2012 J[facility] S INVLV MX DON [place]IT[place] [address] OBSTRUCTIVE 11-12-2011 [facility] CHRONIC [facility] BRONCHITIS INC WITH EXACERBATIO N 61729 ESOPHAGEAL 11-12-2011 [facility] REFLUX [facility] INC 2859 UNSPECIFIED 10-05-2011 [facility] ANEMIA [facility] INC 5180 PULMONARY 10-05-2011 [facility] COLLAPSE [facility]ICAL IMAGING ASS 486 PNEUMONIA, 09-28-2011 [facility] ORGANISM MEDICAL UNSPECIFIED IMAGING ASS 5070 PNEUMONITIS 09-28-2011 [place] DUE TO JAM INHALATION OF FOOD OR VOMITUS 35467 SHORTNESS 09-28-2011 [facility] OF BREATH [facility] INC 75032 ABDOMINAL 09-28-2011 [facility] PAIN, [facility] EPIGASTRIC INC V1261 PERSONAL 09-28-2011 [place] HISTORY JAM PNEUMONIA RECURRENT 98408 PNEUMONIA 06-08-2011 [facility] DUE TO DON OTHER SPECIFIED BACTERIA 2724 OTHER AND 05-11-2011 [facility] UNSPECIFIED PHYSICIANS LA HYPERLIPIDE [place] 2768 HYPOPOTASSE 05-11-2011 [facility]ED [place] PHYSICIANS LA 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 6019 UNSPECIFIED 05-11-2011 [place] [address] PAIN IN 05-11-2011 COMBINED JOINT, PHYSICIANS MULTIPLE LA SITES 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 UNSPECIFIED 89089 NONEXUDATIV 07-20-2008 RET[facility] & 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 44777 EXUDATIVE 07-20-2008 [facility] & SENILE VITREOUS MACULAR ASSOCIATES GARRYERAKEANU O N OF RETINA 46083 CRYSTALLINE 07-20-2008 RETINA & DEPOSITS VITREOUS IN VITREOUS ASSOCIATES O 4610 ACUTE 02-27-2008 JAMES, MAXILLARY DON R SINUSITIS 4659 ACUTE URIS 02-27-2008 ERIKA, OF DON R UNSPECIFIED SITE 8472 LUMBAR 11-14-2007 ERIKA, SPRAIN AND DON R STRAIN 4660 ACUTE 08-02-2007 ERIKA, BRONCHITIS DON R 4871 INFLUENZA 07-04-2007 ERIKA, WITH OTHER DON R RESPIRATORY MANIFESTATI ONS 02755 PAIN IN 04-25-2007 ERIKA, JOINT, DON R SHOULDER REGION 53405 UNSPECIFIED 04-25-2007 ERIKA, SYNOVITIS DON R AND [...] ET 03 93 8 # 03 93 NM 00 04 04 00 12 6 RI [...] Range on Differential panel, method unspecified - (12-05-2016 18:05) LYMPH 35 % 10% - Normal complet 017 50% ed 18:05 Platele NORMAL complet ts 017 ed [Presen 18:05 ce] in Blood by Light microsc opy Differential panel, method unspecified - (11-15-2016 14:30) LYMPH 7 % 10% - Low complet 017 50% ed 14:30 Platele NORMAL complet ts 017 ed [Presen 14:30 ce] in Blood by Light microsc opy Erythro NORMAL complet cyte 017 ed morphol 14:30 ogy finding [Identi fier] in Blood Differential panel, method unspecified - (11-09-2016 10:03) Anisocy 1+ complet tosis 017 ed [Presen 10:03 ce] in Blood LYMPH 13 % 10% - Normal complet 017 50% ed 10:03 Platele NORMAL complet ts 017 ed [Presen 10:03 ce] in Blood by Light microsc opy Differential panel, method unspecified - (11-05-2016 06:30) Hypochr 2 1+ complet omia 017 ed [Presen 06:30 [...] [Presen 14:35 ce] in Blood by Light [facility] opy Procedures Procedure DOS Code Location Performer Comment ALBUTEROL J7620 YOUR YOUR TO 2.5 7 PHARMACY PHARMACY SET[facility]T [facility] IPRATROPI UM BROM TO 0.5 MG ADMN SET A7003 YOUR YOUR SM VOL 7 PHARMACY PHARMACY [employer] PNEUMAT NEBULIZR DISPBL ECG 07424 [facility] ROUTINE 7 PHYSICIAN ECG S GROUP W/LEAST 12 LDS I&R ONLY CT THORAX 33304 [facility] AYALA 7 [facility] W/[place] [address] LUC[facility] AYALA UREA 7 [facility] NITROGEN INC INC QUANTITAT ARCENIO CREATININ 36638 LUC[facility] AYALA E BLOOD 7 [facility]OS[facility] INC INC ALBUTEROL J7620 YOUR YOUR TO 2.5 7 PHARMACY PHARMACY SETiT [facility] IPRATROPI UM BROM TO 0.5 MG ADMN SET A7003 YOUR YOUR SM VOL 7 PHARMACY PHARMACY [facility] PNEUMAT NEBULIZR DISPBL ALBUTEROL J7620 A C A C TO 2.5 7 PILAR QUEZADA MD MG & PSC PSC IPRATROPI UM BROM TO 0.5 MG ECG 55194 [facility] ROUTINE 7 PHYSICIAN ECG S GROUP W/LEAST 12 LDS I&R ONLY O2 CONC 1 E1390 [facility] VARMA 7 HOME HOME 85%/>02 MEDICAL MEDICAL CONC AT EQUIPME [facility] FLW RATE R & L HRT 82712 [facility] CATH 7 PHYSICIAN WINJX HRT S GROUP ART& L VENTR IMG RADIOLOGI 62072 TEX Wagner 7 MEDICAL EXAMINATI IMAGING ON CHEST ASS SINGLE VIEW FRONTAL ECG 97537 [facility] ELIZABETH JR ROUTINE 7 [facility] W/LEAST P 12 LDS I&R ONLY ALBUTEROL J7620 YOUR YOUR TO 2.5 7 PHARMACY PHARMACY SETiT [facility] IPRATROPI UM BROM TO 0.5 MG ADMN SET A7003 YOUR YOUR SM VOL 7 PHARMACY PHARMACY [employer] PNEUMAT NEBULIZR DISPBL O2 CONC 1 E1390 [facility] [place] 7 HOME HOME 85%/>02 MEDICAL MEDICAL CONC AT EQUIPME EQUIPME PRS FLW RATE O2 CONC 1 E1390 [facility] [place] 7 HOME HOME 85%/>02 MEDICAL MEDICAL CONC AT EQUIPME EQUIPME PRSC FLW RATE SBSQ 62263 [facility] 7 MEDICAL CARE/DAY SERV 25 FOUNDATIO MINUTES N RADIOLOGI 87670 [facility] C EXAM 7 MEDICAL MEDICAL CHEST 2 IMAGING IMAGING VIEWS ASS ASS FRONTAL&L ATERAL O2 CONC [address] [facility] 7 HOME HOME 85%/>02 MEDICAL MEDICAL CONC AT EQUIPME EQUIPME PRSC FLW RATE O2 CONC 1 E1390 [facility] 6 HOME HOME 85%/>02 MEDICAL MEDICAL CONC AT EQUIPME EQUIPME PRSC FLW RATE O2 CONC [address] [facility] 6 HOME HOME 85%/>02 MEDICAL MEDICAL CONC AT EQUIPME EQUIPME PRSC FLW RATE ALBUTEROL J7620 YOUR YOUR TO 2.5 6 PHARMACY PHARMACY [employer] IPRATROPI UM BROM TO 0.5 MG ADMN SET A7003 YOUR YOUR SM VOL 6 PHARMACY PHARMACY [employer] PNEUMAT NEBULIZR DISPBL PHRM Q0513 YOUR YOUR DISPENSIN 6 PHARMACY PHARMACY G [employer] INHALATIO N RX; PER 30 DAYS O2 CONC [address] [facility] 6 HOME HOME 85%/>02 MEDICAL MEDICAL CONC AT EQUIPME EQUIPME [facility]SC [facility] G0463 [facility] AYALA OUTPATIEN 6 [facility] T CLIN INC INC VISIT ASSESS & MGMT PT O2 CONC 1 E1390 [facility] PORT 6 HOME HOME 85%/>02 MEDICAL MEDICAL [place]C [place] [address] L[facility] A[facility]AL[facility] ABDOMEN 6 [facility] W/CONTRAS INC INC T MATERIAL BLOOD 30428 [facility] A[facility]AL[facility] COUNT 6 [facility] COMPLETE INC INC AUTO&AUTO DIFRNTL WBC COLLECTIO 20728 [facility] A[facility]AL[facility] N VENOUS 6 MEM H[facility] BLOOD INC INC VENIPUNCT URE COMPREHEN 77021 [facility] SIVE 6 [facility] H[facility] METABOLIC INC INC PANEL LOCM Q9967 [facility] AYALA [phone] [facility] MG/ML INC INC IODINE CONCENTRA TION PER ML ANES 15658 [facility] UPPER GI 6 ANESTH PALMA ENDOSCOPY OF THE PROXIMAL BLUE TO DUODENUM O2 CONC 1 E1390 [facility] [place] 6 HOME HOME 85%/>02 MEDICAL MEDICAL CONC AT EQUIPME EQUIPME PRS FLW RATE RADEX 99798 [facility] AYALA UPPER GI 6 MEM H[facility] W/WO INC INC GLUCAGON/ DELAY IMAGES W/KUB O2 CONC 1 E1390 [facility] [place] 6 HOME MAR 85%/>02 MEDICAL CONC AT EQUIPME PRS FLW RATE RADEX 93278 [facility] GI 6 MEDICAL W/WO IMAGING GLUCAGON/ ASS DELAY IMGES W/O KUB COLLECTIO 66654 [facility] Voss VENOUS 6 [facility] BLOOD INC INC VENIPUNCT URE FLOW 27556 L[facility] AYALA CYTOMETRY 6 [facility] CELL INC INC SURF MARKER TECHL ONLY EA FLOW 64693 LUC[facility] AYALA CYTOMETRY 6 [facility]OS[facility] CELL INC INC SURF MARKER TECHL ONLY 1ST FLOW 01347 MOLECULAR MOLECULAR CYTOMETRY 6 [facility] PATHOLOGY PATHOLOGY 2-8 LAB NETW LAB NETW MARKERS NEBULIZER E0570 [facility]EV[facility] WITH 6 HOME HOME COMPRESSO MEDICAL MEDICAL R EQUIPME EQUIPME O2 CONC 1 E1390 [facility] [place] 6 HOME KEY 85%/>02 MEDICAL CONC AT EQUIPME PRS FLW RATE SEAT E0156 [facility] ATTACHMEN 6 T WALKER WALKER E0143 [facility] FOLDING 6 WHEELED ADJUSTABL E/FIXED HEIGHT ECG 27583 [place] TANIYA ABIMAEL ROUTINE 6 MEDICAL ECG SERV W/LEAST FOUNDATIO 12 LDS N I&R ONLY ECG 56176 [place] [facility] ROUTINE 6 MEDICAL NAN ECG SERV W/LEAST FOUNDATIO 12 LDS N I&R ONLY SBSQ 73368 [facility] 6 MEDICAL KEYANA CARE/DAY SERV 25 FOUNDATIO MINUTES N RADIOLOGI 67459 [place] JAMES CON C 6 MEDICAL EXAMINATI SERV ON CHEST FOUNDATIO SINGLE N VIEW FRONTAL RADIOLOGI 19366 [place] ZAGUR[facility]SK C 6 MEDICAL AYA MAR EXAMINATI SERV ON CHEST FOUNDATIO SINGLE N VIEW FRONTAL SBSQ 16559 [place] [facility] 6 MEDICAL KEYANA CARE/DAY SERV 15 FOUNDATIO MINUTES N SBSQ 54977 [facility] 6 MEDICAL KEYANA CARE/DAY SERV 15 FOUNDATIO MINUTES N RADIOLOGI 15298 [place] [facility] C 6 MEDICAL EXAMINATI SERV ON CHEST FOUNDATIO SINGLE N VIEW FRONTAL RADIOLOGI 72700 [place] MOSBY LEATHA C 6 MEDICAL EXAMINATI SERV ON CHEST FOUNDATIO SINGLE N VIEW FRONTAL SBSQ 74113 [facility] 6 MEDICAL CARE/DAY SERV 25 FOUNDATIO MINUTES N SBSQ 75955 [facility] 6 MEDICAL CARE/DAY SERV 25 FOUNDATIO MINUTES N RADIOLOGI 95917 [place] MOS[facility] LEATHA C 6 MEDICAL EXAMINATI SERV ON CHEST FOUNDATIO SINGLE N VIEW FRONTAL RADEX 68266 [place] [facility] ABDOMEN 1 6 MEDICAL SUSAN SERV ANTEROPOS FOUNDATIO TERIOR N VIEW ECG 59364 [facility] ROUTINE 6 MEDICAL ECG SERV W/LEAST FOUNDATIO 12 LDS N I&R ONLY RADEX 92148 [facility] ABDOMEN 1 6 Y OF CAR [facility] TERIOR VIEW CRITICAL 96471 [place] [facility] CARE 6 MEDICAL ILL/INJUR SERV ED FOUNDATIO PATIENT N INIT 30-74 MIN RADIOLOGI 32173 [place] MAHMOOD LEATHA C 6 MEDICAL EXAMINATI SERV ON CHEST FOUNDATIO SINGLE N VIEW FRONTAL ECG 71965 [facility] ROUTINE 6 MEDICAL ECG SERV W/LEAST FOUNDATIO 12 LDS N I&R ONLY RADIOLOGI 75721 [place] LUKEROVSK C 6 MEDICAL AYA MAR EXAMINATI SERV ON CHEST FOUNDATIO SINGLE N VIEW FRONTAL SBSQ 59734 [place] [facility] 6 MEDICAL CARE/DAY SERV [address] THORAX 52222 [place] CON 6 MEDICAL W/CONTRAS SERV T FOUNDATIO MATERIAL N RADEX 89230 [facility] SHANELL ABDOMEN 1 6 Y [place] [address] [place] REYEZ CLEO ABDOMEN & 6 MEDICAL PELVIS SERV W/CONTRAS FOUNDATIO T N MATERIAL ECHO 10487 [place] [facility] R-T 6 MEDICAL ERIKA 2D SERV W/WOM-MOD FOUNDATIO E COMPL N SPEC&COLR D SBSQ 85907 [place] [address] MEDICAL AND CARE/DAY SERV 25 FOUNDATIO MINUTES N RADIOLOGI 90833 [place] JAMES CON C 6 MEDICAL EXAMINATI SERV ON CHEST FOUNDATIO SINGLE N VIEW FRONTAL RADEX ABD 49867 PR PAUL[facility] COMPL 6 MEDICAL JURGEN AQT ABD SERV ANNEL W/S/E/D FOUNDATIO VIEWS 1 N VIEW CH INITIAL 84395 [place] [address] MEDICAL SUN KAYODE CARE/DAY SERV 30 FOUNDATIO MINUTES N ECG 17429 [facility] ROUTINE 6 MEDICAL ECG SERV W/LEAST FOUNDATIO 12 LDS N I&R ONLY SBSQ 95405 [facility] 6 MEDICAL AND CARE/DAY SERV 25 FOUNDATIO MINUTES N RADIOLOGI 70519 [place] JAMES CON C 6 MEDICAL EXAMINATI SERV ON CHEST FOUNDATIO SINGLE N VIEW FRONTAL ECG 78472 [facility] ROUTINE 6 MEDICAL ECG SERV W/LEAST FOUNDATIO 12 LDS N I&R ONLY RADIOLOGI 52710 [place] JAMES CON C 6 MEDICAL EXAMINATI SERV ON CHEST FOUNDATIO SINGLE N VIEW FRONTAL RADIOLOGI 02590 [place] LUKEROGALLITOK C 6 MEDICAL AYA MAR EXAMINATI SERV ON CHEST FOUNDATIO SINGLE N VIEW FRONTAL RADEX 61130 [facility] ABDOM[facility] 1 6 [facility] [place] [facility] TERIOR VIEW RADEX 90248 [place] ZAGUROVSK ABDOMEN 1 6 MEDICAL AYA MAR SERV ANTEROPOS FOUNDATIO TERIOR N VIEW RADIOLOGI 77080 [place] ROBBINS C 6 MEDICAL JESS EXAMINATI SERV ON CHEST FOUNDATIO SINGLE N VIEW FRONTAL CT THORAX 62600 [place] ARMENDARIZ JENNA 6 MEDICAL W/CONTRAS SERV T FOUNDATIO MATERIAL N RADIOLOGI 88753 [place] ZAGUROVSK C 6 MEDICAL AYA MAR EXAMINATI SERV ON [place] [address] [place] AYOOB AND ABDOMEN & 6 MEDICAL PELVIS SERV W/CONTRAS FOUNDATIO T N MATERIAL RADEX 65913 [facility] [place] [facility] TERIOR VIEW RADEX 42188 [facility] WANETTE ABDOMEN 1 6 [facility] [place] [facility] TERIOR VIEW SBSQ 53134 [facility] 6 MEDICAL AND CARE/DAY SERV 25 FOUNDATIO MINUTES N RADIOLOGI 34780 [place] DELL CAR C 6 MEDICAL EXAMINATI SERV ON CHEST FOUNDATIO SINGLE N VIEW FRONTAL SBSQ 78117 [facility] 6 MEDICAL AND CARE/DAY SERV 25 FOUNDATIO MINUTES N ECG 79103 [place] PELAEZ ROUTINE 6 MEDICAL NAN ECG SERV W/LEAST FOUNDATIO 12 LDS N I&R ONLY RADIOLOGI 64445 [place] JAMES CON C 6 MEDICAL EXAMINATI SERV ON CHEST FOUNDATIO SINGLE N VIEW FRONTAL ECG 33159 [place] HUI MIKHAIL ROUTINE 6 MEDICAL ECG SERV W/LEAST FOUNDATIO 12 LDS N I&R ONLY ARTL 20000 [facility] CATH/CAN 6 Y [facility] SFUSION SPX PRQ LEVEL III 01140 [place] HIEU SURG 6 MEDICAL FRANCO PATHOLOGY SERV FOUNDATIO GROSS&[place] L[place] [address] [place]IEU SURG 6 MEDICAL FRANCO PATHOLOGY SERV FOUNDATIO GROSS&JESS N ROSCOPIC EXAM SBSQ 10425 [facility] 6 MEDICAL RONNY CARE/DAY SERV 25 FOUNDATIO MINUTES N RPR 1ST 71071 [facility] RONNY HRNA AGE SERV 5 YRS/> FOUNDATIO INCARCERA N KISHOR ANESTHESI 10741 [facility] BET A HERNIA 6 Y OF REPAIR [facility] ABDOMEN NOS CREATINE 92216 [facility] A[facility]AL[facility] KINASE 6 [place] [address] L[facility] AYALA LIPASE 6 [facility] INC INC AMBULANCE [id number] [facility] SERVICE 6 AMBULANCE AMBULANCE BLS SERVICE SERVICE EMERGENCY TRANSPORT RADIOLOGI 70622 [facility] C 6 [facility] EXAMINATI INC INC ON CHEST SINGLE VIEW FRONTAL THER 59188 LUCY AYALA PROPH/DX 6 [facility] NJX EA INC INC SEQL IV PUSH SBST/DRUG FAC COMPREHEN 67313 L[facility] SIVE 6 [facility] [place] [address] LUCY AYALA AMYLASE 6 [facility] INC INC CREATINE 55181 LUCY AYALA KINASE MB 6 [facility] FRACTION INC INC ONLY INJECTION J2405 [facility] 6 [facility] ONDANSETR INC INC ON HCL PER 1 MG INJ J2543 LUCY AYALA PIPERACIL 6 [facility] YONATHAN INC INC SOD/TAZOB ACTAM SOD 1 G/0.125 G ECG 09720 LUCY BEVERLY ROUTINE 6 [facility] W/LEAST P 12 LDS [place] [address] LUCY AYALA INFUSION 6 [facility] THERAPY/P INC INC ROPHYLAXI S /DX 1ST TO 1 [place] [address] LUCY AYALA TROPONIN 6 [facility] QUANTITAT INC INC ARCENIO BLOOD 06001 LUCY AYALA COUNT 6 [facility] COMPLETE INC INC AUTO&AUTO DIFRNTL WBC GROUND A0425 [facility] 6 [facility]ANCE AM[place]UL[place] [address] [place] FONTANEZ ALL ABDOMEN & 6 MEDICAL PELVIS IMAGING W/O ASS CONTRAST MATERIAL ECG 89420 LUCY AYALA ROUTINE 6 [facility] ECG INC INC W/LEAST 12 LDS TRCG ONLY W/O I&R INITIAL 64430 [facility] 6 MEDICAL [facility] CARE/DAY SERV 50 FOUNDATIO MINUTES N COLLECTIO 25903 Darnell ROY JENNA N VENOUS 6 PILAR PLEITE[facility] BLOOD PSC VENIPUNCT URE BLOOD 08176 Darnell ROY JENNA COUNT 6 PILAR P[facility] COMPLETE PSC AUTO&AUTO DIFRNTL WBC NEBULIZER E0570 MILDREDTEJINDER LEVY WITH 6 HOME HOME COMPRESSO MEDICAL MEDICAL R EQUIPME EQUIPME INITIAL [address] CARE/DAY INTERNAL 70 MED MINUTES ECG 59582 [facility] ROUTINE 6 [facility] W/LEAST P 12 LDS I&R ONLY RADIOLOGI 23620 [place] FRANCESCA C 6 MEDICAL EXAMINATI IMAGING ON CHEST ASS SINGLE VIEW FRONTAL NEBULIZER E0570 MILDRED LEVY WITH 6 HOME HOME COMPRESSO MEDICAL MEDICAL R EQUIPME EQUIPME ALBUTEROL J7620 YOUR YOUR TO 2.5 6 PHARMACY PHARMACY [employer] LLC IPRATROPI UM BROM TO 0.5 MG ADMN SET A7003 YOUR YOUR SM VOL 6 PHARMACY PHARMACY NONFILTR LLC LLC PNEUMAT NEBULIZR DISPBL COLLECTIO 54051 LUCY AYALA N VENOUS 6 [facility] BLOOD INC INC VENIPUNCT URE COMPREHEN 46868 LUCY AYALA SIVE 6 [facility] METABOLIC INC INC PANEL BLOOD 63329 LUCY AYALA COUNT 6 [facility] COMPLETE INC INC AUTO&AUTO DIFRNTL WBC RADIOLOGI 28380 LUCY AYALA C EXAM 6 [facility] CHEST 2 INC INC VIEWS FRONTAL&L ATERAL RADIOLOGI 07939 [place] FONTANEZ C 6 MEDICAL EXAMINATI IMAGING ON CHEST ASS SINGLE VIEW FRONTAL PHRM Q0513 YOUR YOUR DISPENSIN 6 PHARMACY PHARMACY G FEE LLC LLC INHALATIO N RX; PER 30 DAYS NEBULIZER E0570 MILDRED LEVY WITH 6 HOME HOME COMPRESSO MEDICAL MEDICAL R EQUIPME EQUIPME NEBULIZER E0570 MILDRED LEVY WITH 6 HOME HOME COMPRESSO MEDICAL MEDICAL R EQUIPME EQUIPME PHRM Q0513 YOUR YOUR DISPENSIN 5 PHARMACY PHARMACY G FEE [employer] INHALATIO N RX; PER 30 DAYS ALBUTEROL J7620 YOUR YOUR TO 2.5 5 PHARMACY PHARMACY [employer] LLC IPRATROPI UM BROM TO 0.5 MG RADIOLOGI 29989 [facility] ALL C EXAM 5 MEDICAL CHEST 2 IMAGING VIEWS ASS FRONTAL&L ATERAL CT THORAX 86901 [facility] ALL 5 MEDICAL W/CONTRAS IMAGING T ASS MATERIAL RADIOLOGI 42714 [facility] ALL C EXAM 5 MEDICAL CHEST 2 IMAGING VIEWS ASS FRONTAL&L ATERAL ALBUTEROL J7620 YOUR YOUR TO 2.5 5 PHARMACY PHARMACY MG & [employer] IPRATROPI UM BROM TO 0.5 MG PHARM G0333 YOUR YOUR DISPEN 5 PHARMACY PHARMACY FEE [employer] LLC RX; INITIAL 30-DAY SUPPLY NEBULIZER E0570 MILDRED LEVY WITH 5 HOME HOME COMPRESSO MEDICAL MEDICAL R EQUIPME EQUIPME CATARACT 68491 [facility] REMOVAL 5 JAMILAH JAMILAH INSERTION [...] EQUIPME EQUIPME ARWAY PRESS DEVICE EA POLYSOM 00891 NEERAJ KERN MAR 6/>YRS 4 SLEEP 4/> NEUROSCIE ADDL NCES CENT AMA ATTND POLYSOM 42672 LUCY AYALA 6/>YRS 4 [facility] SLEEP 4/> INC INC ADDL AMA ATTND IMC/IMC G0461 LUCY AYALA PER 4 [facility] SPECIMEN; INC INC 1ST SNGL/[place] [address] LUCY AYALA SURG 4 [facility] PATHOLOGY INC INC GROSS&JESS ROSCOPIC EXAM SPECIAL 41286 LUCY AYALA STAIN 4 [facility] GROUP 1 INC INC MICROORGA NISMS I&R SPCL STN 06807 LUCY AYALA 2 I&R 4 [facility] EXCPT INC INC MICROORG/ ENZYME/[place] [address] ULCY AYALA INFUSION 4 [facility] THERAPY INC INC PROPHYLAX [place] [address] LUCY AYALA INFUSION 4 [facility] THERAPY/P INC INC ROPHYLAXI S /DX 1ST TO 1 HR SPMTRY 45801 LUCY AYALA W/VC 4 [facility] EXPIRATOR INC INC Y ALFREDO W/WO MXML VOL VNTJ ECHO 89116 LUCY AYALA TTHRC R-T 4 [facility] 2D INC INC W/WOM-MOD E COMPL SPEC&COLR D MYOCARDIA 26690 LUCY AYALA L SPECT 4 [facility] MULTIPLE INC INC STUDIES CV STRS 81169 GLENN JR GLENN JR TST 4 DWI DWI XERS&/OR RX CONT ECG I&R ONLY MYOCARDIA 08938 TEX MA L 4 MEDICAL EMY PERFUSION IMAGING PLANAR ASS MULTIPLE STUDIES CV STRS 28190 KEITH MORENO TST 4 XERS&/OR RX CONT ECG W/O I&R RADIOLOGI 74862 TEX Wagner EXAM 4 MEDICAL EMY CHEST [...] ACETATE & PHOSPHATE 3 MG INJECTION J0690 ERIKA WHITLOCKHENS 3 DON DON CEFAZOLIN SODIUM 500 MG RADIOLOGI 19372 LUCY AYALA C EXAM 3 [facility] [...] EQUIPME EQUIPME FLWMTR HUMIDFR&M ASK CT THORAX 58100 [place] FRANCESCA W/O 2 MEDICAL EMY CONTRAST IMAGING MATERIAL ASS 3D 35015 [place] FRANCESCA RENDERING 2 MEDICAL EMY IMAGING W/INTERP& ASS POSTPROC DIFF WORK STATION PRTBLE E0431 MILDRED MILDRED GASEOUS 2 HOME HOME O2 SYS MEDICAL MEDICAL RENT; EQUIPME EQUIPME FLWMTR HUMIDFR&M ASK TOBACCO 83539 JAMES JAMES USE 2 DON DON CESSATION INTERMEDI ATE 3-10 MINUTES PRTBLE E0431 MILDRED MILDRED GASEOUS 2 HOME HOME O2 SYS MEDICAL MEDICAL RENT; EQUIPME EQUIPME FLWMTR HUMIDFR&M ASK PRTBLE E0431 MILDRED MILDRED GASEOUS 2 HOME HOME O2 SYS MEDICAL MEDICAL RENT; EQUIPME EQUIPME FLWMTR HUMIDFR&M ASK RADIOLOGI 57114 LUCY AYALA C EXAM 2 [facility] CHEST 2 INC INC VIEWS FRONTAL&L ATERAL SPMTRY 08315 MARIS POLLOCK W/VC 2 JAM JAM EXPIRATOR Y ALFREDO W/WO MXML VOL VNTJ PRTBLE E0431 MILDRED MILDRED GASEOUS 2 HOME HOME O2 SYS MEDICAL MEDICAL RENT; EQUIPME EQUIPME FLWMTR HUMIDFR&M ASK CUL BACT 28234 LUCY AYALA XCPT 2 [facility] URINE INC INC BLOOD/STO OL AEROBIC ISOL CULTURE 29325 LUCY AYALA BACTERIAL 2 [facility] ANY INC INC SOURCE ANAEROBIC ISO&ID CULTURE 35877 LUCY AYALA TUBERCLE/ 2 [facility] OTH INC INC ACID-FAST BACILLI ANY ISOL TISS FRED 78325 LUCY AYALA SLIDE 2 [facility] SAMPS INC INC SKN/HR/NL S FNGI/[place] [address] LUCY AYALA GUIDANCE 2 [facility] NEEDLE INC INC PLACEMENT BLOOD 35785 LUCY AYALA GASES ANY 2 [facility] INC INC COMBINATI ON PH PCO2 PO2 CO2 HCO3 GLUCOSE 55007 LUCY AYALA BODY 2 [facility] FLUID INC INC OTHER THAN BLOOD IRON 88901 LUCY AYALA BINDING 2 [facility] CAPACITY INC INC LACTATE 13345 LUCY AYALA DEHYDROGE 2 [facility] NASE LDH INC INC PROTEIN 87815 LUCY AYALA XCPT 2 [facility] REFRACTOM INC INC ETRY SERUM PLASMA/WH L BLD SMR PRIM 03418 LUCY AYALA SRC 2 [facility] GRAM/GIEM INC INC SA STAIN BCT FUNGI/VAHID L RADIOLOGI 60518 LUCYJOAN AYALA C EXAM 2 [facility] CHEST 2 INC INC VIEWS FRONTAL&L ATERAL CT THORAX 36873 LUCY BOBON W/O 2 [facility] CONTRAST INC INC MATERIAL NONINVASI 08644 LUCY AYALA VE 2 [facility] EAR/PULSE INC INC OXIMETRY SINGLE DETER CYANOCOBA 26238 LUCY AYALA BETTIE 2 [facility] VITAMIN INC INC B-12 THORACENT 61995 LUCY AYALA ESIS 2 [facility] PUNCTURE INC INC PLEURAL CAVITY ASPIRATIO N CYTP 86405 PATHOLOGY PATHOLOGY SLCTV 2 & & CELL CYTOLOGY CYTOLOGY ENHANCEME LAB LAB NT INTERPJ XCPT C/V COLLECTIO 77002 LUCY AYALA N VENOUS 2 [facility] BLOOD INC INC VENIPUNCT URE CELL 37331 LUCY AYALA COUNT 2 [facility] MISC BODY INC INC FLUIDS W/DIFFERE NTIAL COUNT CARBOXYHE 76268 LUCY AYALA MOGLOBIN 2 [facility] [place] [address] LUCY LUCY IRON 2 [facility] INC INC SPUTUM 78718 LUCY AYALA OBTAINING 2 [facility] SPEC INC INC AEROSOL INDUCED TX SPX ECG 21345 [facility] B[facility] ROUTINE 2 JENNA JENNA ECG W/LEAST 12 LDS I&R ONLY CT THORAX 16178 LUCY LUCY W/O 2 [facility] CONTRAST INC INC MATERIAL ECG 50161 LUCY AYALA ROUTINE 2 [facility] ECG INC INC W/LEAST 12 LDS TRCG ONLY W/O I&R 3D 88163 TEX MA RENDERING 2 MEDICAL EMY IMAGING W/INTERP& ASS POSTPROC DIFF WORK STATION PRTBLE E0431 MILDRED LEVY GASEOUS 2 HOME HOME O2 SYS MEDICAL MEDICAL RENT; EQUIPME EQUIPME FLWMTR HUMIDFR&M ASK PRTBLE E0431 MILDRED LEVY GASEOUS 2 HOME HOME O2 SYS MEDICAL MEDICAL RENT; EQUIPME EQUIPME FLWMTR HUMIDFR&M ASK SPMTRY 59674 LUCY AYALA W/VC 2 [facility] EXPIRATOR INC INC Y ALFREDO W/WO MXML VOL VNTJ PRTBLE E0431 MILDRED MILDRED GASEOUS 2 HOME HOME O2 SYS MEDICAL MEDICAL RENT; EQUIPME EQUIPME FLWMTR HUMIDFR&M ASK PRTBLE E0431 MILDRED BARBERRELL GASEOUS 2 HOME HOME O2 SYS MEDICAL MEDICAL RENT; EQUIPME EQUIPME FLWMTR HUMIDFR&M ASK RADIOLOGI 50545 ERIKA JAMES C EXAM 2 DON DON CHEST 2 VIEWS FRONTAL&L ATERAL CT THORAX 69635 [place] FRANCESCA 2 MEDICAL EMY W/CONTRAS IMAGING T ASS MATERIAL BLOOD 60997 COMBINED COMBINED COUNT 2 PHYSICIAN PHYSICIAN COMPLETE S LA S LA AUTO&AUTO DIFRNTL WBC LIPID 62952 COMBINED COMBINED PANEL 2 PHYSICIAN PHYSICIAN S LA S LA COMPREHEN 61633 COMBINED COMBINED SIVE 2 PHYSICIAN PHYSICIAN [place] [address] COMBINED COMBINED PROSTATE 2 PHYSICIAN PHYSICIAN SPECIFIC [...] O2 SYS MEDICAL MEDICAL RENT; EQUIPME EQUIPME FLWGAR HUMIDFR&M ASK O2 CONC 1 E1390 MILDRED [facility] 1 HOME HOME 85%/>02 MEDICAL MEDICAL CONC AT EQUIPME EQUIPME [facility] FLW RATE PRTBLE E0431 MILDRED LEVY GASEOUS 1 HOME HOME O2 SYS MEDICAL MEDICAL RENT; EQUIPME EQUIPME FLWGAR HUMIDFR&M ASK O2 CONC 1 E1390 MILDRED [facility] 1 HOME HOME 85%/>02 MEDICAL MEDICAL CONC AT EQUIPME EQUIPME [facility] FLW RATE PRTBLE E0431 MILDRED LEVY GASEOUS 1 HOME MED HOME MED O2 SYS EQUIP. L EQUIP. L [facility]; [facility] AS[facility] O2 CONC 1 E1390 MILDRED [facility] 1 HOME MED HOME MED 85%/>02 EQUIP. L EQUIP. L CONC AT [facility] FLW RATE PRTBLE E0431 MILDRED LEVY GASEOUS 1 HOME MED HOME MED O2 SYS EQUIP. L EQUIP. L RENT; [facility] HUMIDFR&M ASK O2 CONC 1 E1390 MILDRED [facility] 1 HOME MED HOME MED 85%/>02 EQUIP. L EQUIP. L CONC AT [facility] FLW RATE O2 CONC 1 E1390 MILDRED [facility] 1 HOME MED HOME MED 85%/>02 EQUIP. L EQUIP. L CONC AT [facility] FLW RATE PRTBLE E0431 MILDRED LEVY GASEOUS 1 HOME MED HOME MED O2 SYS EQUIP. L EQUIP. L RENT; FLWGAR HUMIDFR&M ASK PRTBLE E0431 MILDRED LEVY GASEOUS 1 HOME MED HOME MED O2 SYS EQUIP. L EQUIP. L RENT; FLWGAR HUMIDFR&M ASK O2 CONC 1 E1390 MILDRED [facility] 1 HOME MED HOME MED 85%/>02 EQUIP. L EQUIP. L CONC AT [facility] FLW RATE O2 CONC 1 E1390 MILDRED [facility] 1 HOME MED HOME MED 85%/>02 EQUIP. L EQUIP. L CONC AT [facility] FLW RATE PRTBLE E0431 MILDRED LEVY GASEOUS 1 HOME MED HOME MED O2 SYS EQUIP. L EQUIP. L RENT; FLWGAR HUMIDFR&M ASK PRTBLE E0431 MILDRED BARBERRELL GASEOUS 0 HOME MED HOME MED O2 SYS EQUIP. L EQUIP. L RENT; [facility] HUMIDFR&M ASK O2 CONC 1 E1390 [place] 0 HOME MED HOME MED 85%/>02 EQUIP. L EQUIP. L CONC AT [facility] FLW RATE O2 CONC 1 E1390 [place] 0 HOME MED HOME MED 85%/>02 EQUIP. L EQUIP. L CONC AT [facility] FLW RATE PRTBLE E0431 MILDRED BARBERRELL GASEOUS 0 HOME MED HOME MED O2 SYS EQUIP. L EQUIP. L RENT; [facility] HUMIDFR&M ASK O2 CONC 1 E1390 [place] 0 HOME MED HOME MED 85%/>02 EQUIP. L EQUIP. L CONC AT [facility] FLW RATE PRTBLE E0431 MILDRED BARBERRELL GASEOUS 0 HOME MED HOME MED O2 SYS EQUIP. L EQUIP. L RENT; [facility] HUMIDFR&M ASK O2 CONC 1 E1390 [place] 0 HOME MED HOME MED 85%/>02 EQUIP. L EQUIP. L CONC AT [facility] FLW RATE PRTBLE E0431 MILDRED MILDRED GASEOUS 0 HOME MED HOME MED O2 SYS EQUIP. L EQUIP. L RENT; [facility] HUMIDFR&M ASK VIRUS 66413 [facility] CENTRIFUG 0 Y Y E [facility] ID IMFLUOR STAIN EA CULTURE 47295 [facility] FUNGI 0 Y Y DEFINITIALICE [facility] E ID EACH ORGANISM YEAST SMR PRIM 01838 [facility] SRC 0 Y Y GRAM/GIEM [facility] SA STAIN BCT FUNGI/VAHID L INJECTION J2250 [facility] [address] [facility] HCL PER 1 MG IAADI 09476 [facility] PNEUMOCUS 0 Y Y TIS [facility] CARINII CULTURE 76326 [facility] TUBERCLE/ [address] [facility] ACID-FAST BACILLI ANY ISOL SMR PRIM 38401 [facility] SRC [address] [facility] NT&/AFS BCT FNGI PARASIT TISS FRED 22602 [facility] SLIDE 0 Y Y [facility] SKN/HR/NL S FNGI/ECTO PARASIT CUL BACT 04018 [facility] XCPT [address] [facility] BLOOD/STO OL AEROBIC ISOL RADIOLOGI 71315 [facility] C 0 Y [facility] CHEST SINGLE VIEW FRONTAL BRNCHSC 02324 [facility] W/BRNCL [address] [facility] LAVAGE INJECTION J3010 [facility] FENTANYL [address] [facility] 0.1 MG CULTURE 82916 [facility] FNGI 0 Y Y MOLD/YEAS [facility] T PRSMPTV OTH XCPT BLOOD SPECIAL 89071 [facility] STAIN 0 [address] [facility] MICROORGA NISMS I&R BRONCHOSC 69904 [facility] OPY 0 Y Y W/TRANSBR [facility] ONCHIAL LUNG BX 1 LOBE BRONCHOSC 06020 [facility] OPY 0 Y Y NEEDLE BX [facility] TRACHEA MAIN STEM&/BRO N CELL 44576 [facility] COUNT [address] [facility] FLUIDS W/DIFFERE NTIAL COUNT IADNA NOS 01946 [facility] [address] [facility] PROBE TQ EACH ORGANISM VIRUS 68690 [facility] TISS CUL 0 Y [facility] ON CYTOPATHI C EFFECT CONCENTRA 94947 [facility] TION [address] [facility] S AGENTS CYTP EVAL 43311 [facility] FINE [address] [facility] ASPIRATE INTERP & REPORT CYTP FINE 67228 [facility] NDL 0 Y Y [facility] IMMT CYTOH[place] STD [place] 1ST [place] [address] [facility] SURG [address] [facility] GROSS&JESS ROSCOPIC EXAM PRTBLE E0431 MILDRED LEVY GASEOUS 0 HOME MED HOME MED O2 SYS EQUIP. L EQUIP. L RENT; FLWMTR HUMIDFR&M ASK O2 CONC 1 E1390 MILDRED MILDR[place] 0 HOME MED HOME MED 85%/>02 EQUIP. L EQUIP. L CONC AT [facility] FLW RATE PHLEBOTOM 49074 COMBINED COMBINED Y 0 PHYSICIAN PHYSICIAN THERAPEUT S LA S LA IC SEPARATE PROCEDURE DUP-SCAN 00735 [place] FR[facility] XTR VEINS 0 MEDICAL EMY COMPLETE IMAGING ASS BILATERAL STUDY RADEX 17133 [place] [facility] ESOPHAGUS 0 MEDICAL EMY IMAGING ASS COLLECTIO 82692 LUCY AYALA N VENOUS 0 [facility] BLOOD INC INC VENIPUNCT URE COMPREHEN 11254 LUCY AYALA SIVE 0 [facility] METABOLIC INC INC PANEL PULMONARY 91998 [place] STRESS 0 MEDICAL JAM TESTING SERV SIMPLE FOUNDATIO BLOOD 52103 LUCYJOAN BOBON COUNT 0 [facility] COMPLETE INC INC AUTO&AUTO DIFRNTL WBC BRNCDILAT 30769 LUCY LUCY RSPSE 0 [facility] SPMTRY INC INC PRE&POST- BRNCDILAT ADMN CT THORAX 28401 [place] NELLY W/O 0 MEDICAL KEY CONTRAST IMAGING MATERIAL ASS 3D 83635 [place] NELLY RENDERING 0 MEDICAL KEY IMAGING W/INTERP& ASS POSTPROC DIFF WORK STATION COMPREHEN 51500 COMBINED COMBINED SIVE 0 PHYSICIAN PHYSICIAN METABOLIC S LAB S LAB PANEL COLLECTIO 94777 COMBINED COMBINED N VENOUS 0 PHYSICIAN PHYSICIAN BLOOD S LAB S LAB VENIPUNCT URE RADIOLOGI 25213 [place] FRANCES[facility] C EXAM 0 MEDICAL EMY CHEST 2 IMAGING VIEWS ASS FRONTAL&L ATERAL O2 CONC 1 E1390 MILDRED [place] 0 HOME MED HOME MED 85%/>02 EQUIP. EQUIP. CONC AT [facility] FLW RATE PRTBLE E0431 MILDRED MILDRED GASEOUS 0 HOME MED HOME MED O2 SYS EQUIP. EQUIP. RENT; [facility] HUMIDFR&M ASK INJECTION J1940 ERIKA JAMES, 0 DON R DON R FUROSEMID E UP TO 20 MG O2 CONC 1 E1390 MILDRED L[place]Y [place] PORT 0 HOME MED HOME MED 85%/>02 EQUIP. EQUIP. CONC AT [facility] FLW RATE RADIOLOGI 99706 ERIKA JAMES, C EXAM 0 DON R DON R CHEST 2 VIEWS FRONTAL&L ATERAL PRTBLE E0431 MILDRED BARBERRELL GASEOUS 0 HOME MED HOME MED O2 SYS EQUIP. EQUIP. RENT; [facility] HUMIDFR&M ASK ECG 40384 ERIKA JAMES, ROUTINE 0 DON R DON R ECG W/LEAST 12 LDS W/I&R RADIOLOGI 69071 ERIKA JAMES, C 0 DON R DON R EXAMINATI ON CHEST SINGLE [facility] 45244 ERIKA JAMES, DISCHARGE 0 DON R DON R DAY MANAGEMEN T 30 MIN/< [facility] 67162 [facility] 0 DON R DON R CARE/DAY 25 MINUTES RADIOLOGI 01985 Kristy VALENTIN EXAM 0 MEDICAL JANE P CHEST 2 IMAGING VIEWS ASSOCIATE FRONTAL&L S ATERAL [facility] 95778 JAMES, [facility] 0 DON R DON R CARE/DAY 25 MINUTES [facility] 07068 JAMES, [facility] 0 DON R DON R CARE/DAY [address] THORAX 75929 [place] FRANC[facility], 0 MEDICAL SHASHI W/CONTRAS IMAGING T ASSOCIATE MATERIAL S 3D 06782 [place] FRANC[facility], RENDERING 0 MEDICAL SHASHI IMAGING W/INTERP& ASSOCIATE POSTPROC S DIFF WORK STATION [facility] 49800 [facility] 0 DON R DON R CARE/DAY 25 MINUTES [facility] 45521 [facility] 0 DON R DON R CARE/DAY 25 MINUTES RADIOLOGI 35623 ERIKA JAMES C 0 DON R DON R EXAMINATI ON CHEST SINGLE VIEW FRONTAL INITIAL 94731 [facility] 0 DON R DON R CARE/DAY 50 MINUTES RADIOLOGI 85925 Kristy OROSCO EXAM 0 MEDICAL SHASHI CHEST 2 IMAGING VIEWS ASSOCIATE FRONTAL&L S ATERAL OPHTH 74516 [facility] 9 DONTE A DONTE A XM&EVAL COMPRHNSV ESTAB PT 1/> OPHTH 72287 RETINA & NINI, MEDICAL 9 VITREOUS CALLIE W XM&EVAL ASSOCIATE INTERMEDI S O ATE ESTAB PT SCANNING 10832 [facility] & NINI, OPHTHALMI 9 VITREOUS CALLIE W C IMAGING ASSOCIATE S O POSTERIOR SGM UNI INJECTION J1040 ERIKA JAMES 8 DON R DON R METHYLPRE DNISOLONE ACETATE 80 MG SCANNING 04952 [facility], OPHTHALMI 8 VITREOUS CALLIE W C IMAGING ASSOCIATE S O POSTERIOR SGM UNI OPHTH 49093 RETINA & NINI, MEDICAL 8 VITREOUS CALLIE W XM&EVAL ASSOCIATE INTERMEDI S O ATE ESTAB PT INJECTION J1040 ERIKA JAMES 8 DON R DON R METHYLPRE DNISOLONE ACETATE 80 MG OPHTH [id number] [facility] 8 DONET A DONTE A XM&EVAL COMPRHNSV ESTAB PT 1/> SCANNING 77610 RETINA & NINI, OPHTHALMI 8 VITREOUS CALLIE W C IMAGING ASSOCIATE S O POSTERIOR SGM UNI OPHTH 12678 RETINA & NINI, MEDICAL 8 VITREOUS CALLIE W XM&EVAL ASSOCIATE INTERMEDI S O ATE ESTAB PT INJECTION J1040 ERIKA JAMES 8 DON R DON R METHYLPRE DNISOLONE ACETATE 80 MG RADIOLOGI 72344 ERIKA JAMES C EXAM 8 DON R DON R CHEST 2 VIEWS FRONTAL&L ATERAL SCANNING 99149 RETINA & RETINA & OPHTHALMI 8 VITREOUS VITREOUS C IMAGING ASSOCIATE ASSOCIATE S O S O POSTERIOR SGM UNI OPHTH 35233 RETINA & RETINA & MEDICAL 8 VITREOUS VITREOUS XM&EVAL ASSOCIATE ASSOCIATE INTERMEDI S O S O ATE ESTAB PT OPHTH 73350 RETINA & RETINA & MEDICAL 8 VITREOUS VITREOUS XM&EVAL ASSOCIATE ASSOCIATE INTERMEDI S O S O ATE ESTAB PT SCANNING 23398 RETINA & RETINA & OPHTHALMI 8 VITREOUS VITREOUS C IMAGING ASSOCIATE ASSOCIATE S O S O POSTERIOR SGM UNI INJECTION J1100 ERIKA JAMES, 8 DON R DON R DEXAMETHO SONE SODIUM PHOSPHATE 1 MG Encounters Encounter Start End Date Code Location Performer Type Date OFFICE [id number] [facility] OUTPATI[facility] 7 7 PHYSICIAN T VISIT S GROUP 25 MINUTES [facility] - [facility] 7 [facility] T OFFICE [id number] [facility] 7 7 PHYSICIAN T VISIT S GROUP 40 MINUTES OFFICE 26486 A C KIRILL OUTPATIEN 7 7 [facility] [place] T VISIT PSC 15 MINUTES OFFICE 68764 FATUMA GARRISON OUTPATIRYLEE 7 7 Y OF CK T VISIT [place] 25 HOSPI MINUTES OFFICE 94411 A C K[facility] OUTPATIEN 7 7 [facility] [place] T VISIT [facility] 15 MINUTES OFFICE 97768 A Kristy ROY OUTPATIEN 7 7 [facility] [place] T VISIT [facility] 15 MINUTES [facility]OSP[facility] LUC[facility] - 7 7 [facility] OFFICE 81891 A Kristy ROY OUTPATIEN 7 7 [facility] [place] T VISIT PSC 15 MINUTES OFFICE 59059 A Kristy ROY OUTPATIEN 7 7 [place] T VISIT PSC 15 MINUTES OFFICE 87725 ELIO POLLOCK OUTPATIEN 6 6 MEDICAL JAM T VISIT [facility] 25 FOUNDATIO MINUTES [facility] LUCY - 6 6 [facility] T OFFICE 69231 [facility] JR OUTPATIEN 6 6 PHYSICIAN RITA T VISIT S GROUP 10 MINUTES HOSPITAL LUCY - 6 6 [facility] T OFFICE 58635 LUCY EVAN OUTPATIEN 6 6 [facility] VISIT HOSPITAL 10 P MINUTES OFFICE 44388 A Kristy ROY OUTPATIEN 6 6 [place] [place] T VISIT PSC 15 MINUTES OFFICE 76825 ELIO POLLOCK OUTPATIEN 6 6 MEDICAL JAM T VISIT SERV 15 FOUNDATIO MINUTES N OFFICE 01913 LUCY EVAN OUTPATIEN 6 6 [facility] 20 HOSPITAL MINUTES P OFFICE 71491 [facility] OUTPATI[facility] 6 6 PHYSICIAN RITA T VISIT S GROUP 15 MINUTES HOSPITAL LUCY - 6 6 [facility] OUTPATI[facility] INC T OFFICE 93226 [facility] OUTPATIEN 6 6 PHYSICIAN RITA T NEW 45 S GROUP MINUTES OFFICE 88342 [place] OUTPATIEN 6 6 MEDICAL JAM T VISIT SERV 25 FOUNDATIO MINUTES [facility]UST LUCY - 6 6 [facility] OUTPATIEN INC T OFFICE 99368 A Kristy FUNEZPATIRYLEE 6 6 PILAR PLEIETZ T VISIT PSC 15 MINUTES OFFICE 05519 ELIO POLLOCK OUTPATIEN 6 6 MEDICAL JAM T VISIT SERV 25 FOUNDATIO MINUTES HOSPITAL LUCY - 6 6 [facility] OUTPATIEN INC T EMERGENCY 84370 FATUMA WATTERS DEPT 6 6 Y OF MADALYN VISIT [facility] HOSPI SEVERITY& THREAT FUN OFFICE 00957 A Kristy WEST OUTPATIRYLEE 6 6 [place] T VISIT PSC 15 MINUTES OFFICE 19523 A C KIRILLMAC WEST OUTPATIEN 6 6 P[place]AR [place]ITE[place] T VISIT PSC 15 MINUTES OFFICE 28472 [place] OUTPATIEN 6 6 MEDICAL JAM T VISIT SERV 40 FOUNDATIO MINUTES [facility]UST LUCY - 6 6 [facility] INPATIENT [facility] LUCY - 6 6 [facility] OUTPATIEN [facility] OFFICE 84508 [place] OUTPATIEN 6 6 MEDICAL T VISIT SERV 25 FOUNDATIO MINUTES OFFICE 80983 ELIO POLLOCK OUTPATIEN 6 6 MEDICAL JAM T VISIT SERV 15 FOUNDATIO MINUTES [facility]UST LUCY - 5 5 [facility] OUTPATIEN [facility] LUCY - 5 5 [facility] OUTPATIEN [facility] LUCY - 5 5 [facility] OUTPATIEN [facility] OFFICE 82348 A C FIELD AMB OUTPATIEN 5 5 PILAR PLEITE[place] T VISIT PSC 15 MINUTES OFFICE 02391 A C FIELD AMB OUTPATIEN 4 4 P[facility] T VISIT PSC 15 MINUTES HOSPITAL LUCY - 4 4 [facility] [facility] 4 4 [facility] - 4 4 [facility] LUYC - 4 4 [facility] LUCY [facility] 4 4 [facility] LUCY - 4 4 [facility] OFFICE [id number] FIELD AMB FIELD AMB OUTPATIEN 4 4 T VISIT 15 MINUTES OFFICE [id number] FIELD AMB FIELD AMB OUTPATIEN 3 3 T VISIT 15 MINUTES OFFICE 74850 A C FIELD AMB OUTPATIEN 3 3 PILAR PLEITEZ T NEW 30 PSC MINUTES OFFICE 03015 ERIKA MELENDREZS OUTPATIEN 3 3 DON DON T VISIT 15 MINUTES [facility] LUCY - 3 3 [facility] OFFICE 66458 JAMES JAMES OUTPATIEN 3 3 DON DON T VISIT 15 MINUTES [facility] LUCY - 2 2 [facility] OFFICE 51620 JAMES JAMES OUTPATIEN 2 2 DON DON T [facility]ISIT 15 MINUTES [facility] LUCY - 2 2 [facility] LUCY - 2 2 [facility] OFFICE 15640 ERIKA MELENDREZS OUTPATIEN 2 2 DON DON T VISIT 15 MINUTES OFFICE 46472 JAMES JAMES OUTPATIEN 1 1 DON DON T VISIT 15 MINUTES OFFICE 25315 JAMES JAMES OUTPATIEN 1 1 DON DON T VISIT 15 MINUTES OFFICE 76767 [facility] OUTPATIEN 1 1 DON DON T VISIT 15 MINUTES OFFICE 45140 [facility] OUTPATIEN 1 1 DON DON T VISIT 15 MINUTES HOSPITAL UNIVERSIT - 0 0 Y [facility] LUCY - 0 0 [facility] OFFICE 36225 ERIKA JAMES OUTPATIEN 0 0 DON R DON R T VISIT 15 MINUTES OFFICE 24829 ERIKA JAMES OUTPATIEN 0 0 DON R DON R T VISIT 25 MINUTES OFFICE 84053 ERIKA JAMES OUTPATIEN 0 0 DON R DON R T VISIT 15 MINUTES OFFICE 59957 ERIKA JAMES OUTPATIEN 8 8 DON R DON R T VISIT 15 MINUTES OFFICE 46640 ERIKA JAMES OUTPATIEN 8 8 DON R DON R T VISIT 15 MINUTES OFFICE 61793 ERIKA JAMES OUTPATIEN 8 8 DON R DON R T VISIT 15 MINUTES OFFICE 48574 ERIKA JAMES OUTPATIRYLEE 8 8 DON R DON R T VISIT 15 MINUTES OFFICE 80582 ERIKA JAMES OUTPATIRYLEE 8 8 DON R DON R T VISIT 15 MINUTES
--- OUTSIDE RECORDS SUMMARY | 2016-12-05 20:00 | External Medical Summary Rpt ---
Author Author , RANDALL REISCAROLINA Address Unknown Phone [email or web address] Care Team Providers Care Conveyancer Name Role Phone A Kristy QUEZADA MD [...] Unavailable ROBBINS JESS, ROBBINS Unavailable Unavailable JESS [facility] Unavailable Unavailable SERVICE, [facility]available Unavailable SERVICE, [facility] Unavailable Unavailable [facility], [facility] Unavailable Unavailable [facility], [facility] Unavailable Unavailable LAB, [facility] COOK JOSH, COOK JOSH Unavailable Unavailable FRANCESCA, FRANCESCA Unavailable Unavailable FRANCESCA EMY, Unavailable Unavailable FRANCESCA EMY FRANCESCA EMY, Unavailable Unavailable RFANCESCA EMY FRANCESCA, SHASHI, Unavailable Unavailable FRANCESCA, SHASHI ARIANNA CHR, Unavailable Unavailable ARIANNA CHR DELL CAR, DELL CAR Unavailable Unavailable EVAN PHI, Unavailable Unavailable EVAN PHI FIELD AMB, FIELD AMB Unavailable Unavailable QUAN, Unavailable Unavailable QUAN PELAEZ NAN, PELAEZ Unavailable Unavailable NAN MAHMOOD LEATHA, MAHMOOD LEATHA Unavailable Unavailable TAYLOR KEYANA, TAYLOR Unavailable Unavailable KEYANA [facility] Unavailable Unavailable INC, [facility] Un[facility] DONTE RUIZ A, Unavailable Unavailable DONTE RUIZ A [facility], Unavailable Unavailable [facility] ARMENDARIZ JENNA, ARMENDARIZ JENNA Unavailable Unavailable HUI MIKHAIL, HUI MIKHAIL Unavailable Unavailable BECKY MAR, BECKY Unavailable Unavailable [facility] Unavailable Unavailable [facility], [facility] NINI, CALLIE W, Unavailable Unavailable NINI, CALLIE W [facility] Un[facility] Unavailable [facility] Un[facility] GLENN JR, GLENN JR Unavailable Unavailable GLENN JR DWI, GLENN Unavailable Unavailable JR DWI [facility] Unavailable Unavailable INTERNAL MED, [facility] JAMES CON, JAMES CON [...] PHARM #[id number] [facility] Unavailable Unavailable [id number] # [id number], [facility] [id number] # [id number] TANIYA ABIMAEL, TANIYA ABIMAEL Unavailable [...] MADALYN OTTO SUSAN, OTTO Unavailable Unavailable SUSAN 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 10-09-2016 [facility] E785 HYPERLIPIDE 10-04-2016 [facility] UNSPECIFIED GROUP I119 HYPERTENSIV 10-04-2016 [facility] E HEART PHYSICIANS DISEASE GROUP WITHOUT HEART FAILURE 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 I444 LEFT 10-04-2016 [facility] ANTERIOR PHYSICIANS FASCICULAR GROUP BLOCK J449 CHRONIC 10-04-2016 [facility] OBSTRUCTIVE PHYSICIANS PULMONARY GROUP DISEASE UNS R0600 DYSPNEA 10-04-2016 [facility] UNSPECIFIED PHYSICIANS GROUP R0602 SHORTNESS 09-14-2016 [facility] R918 OTHER 09-14-2016 [facility] NONSPECIFIC MEDICAL ABNORMAL IMAGING ASS FINDING OF LUNG FIELD R938 ABNORMAL 09-14-2016 [facility] FIND ON DX [facility] IMAGING OTH INC SPEC BODY STRCT R9431 ABNORMAL 09-14-2016 [facility] ELECTROCARD [facility] IOGRAM INC J410 SIMPLE 09-04-2016 A Kristy GARLAND MD [facility] BRONCHITIS I4891 UNSPECIFIED 09-02-2016 [facility] ATRIAL HOME FIBRILLATIO MEDICAL N EQUIPME I200 UNSTABLE 08-27-2016 [facility] ANGINA PHYSICIANS GROUP I10 ESSENTIAL 08-25-2016 [facility] P N [id number] ASHD SLEETMUTE 08-25-2016 [facility] P ANGINA PECTORIS I272 OTHER 08-25-2016 [facility] P HYPERTENSIO N R079 CHEST PAIN 08-25-2016 [facility] UNSPECIFIED [facility] IMAGING ASS I482 CHRONIC 06-14-2016 A Kristy QEUZADA ATRIAL [facility] FIBRILLATIO N J9610 CHRONIC 06-14-2016 Darnell QUEZADA RESPIRATORY [facility] FAIL UNS HYPOXIA/HYP ERCAPNIA R296 REPEATED 06-14-2016 A Kristy KHAN MD PSC J441 CHRONIC 05-25-2016 Darnell ANN MD [facility] PULMONARY DZ W/EXACERBAT ION B957 OT [...] PSC CONGESTIVE HEART FAILURE C9110 CHRONIC 01-11-2016 [facility] 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 R634 ABNORMAL 01-11-2016 [facility] WEIGHT LOSS [facility] INC R1110 VOMITING 01-09-2016 [facility] UNSPECIFIED PHYSICIANS GROUP K828 OTHER 01-02-2016 [facility] SPECIFIED MEDICAL DISEASES OF IMAGING ASS GALLBLADDER R630 ANOREXIA 01-02-2016 [facility] K921 MELENA 11-07-2015 [facility] PH[facility]ANS GROUP K5710 DIVERTICULO 11-03-2015 [facility] SIS SM MEDICAL INTEST W/O IMAGING ASS PERF/ABSC W/O BLEED R195 OTHER FECAL 11-03-2015 [facility] ABNORMALITI IMAGING ASS ES K04166 LYMPHOCYTOS 10-26-2015 [facility] IS PATHOLOGY SYMPTOMATIC LAB NETW J690 PNEUMONITIS 10-26-2015 [facility] DUE TO SERV INHALATION [facility] OF FOOD AND VOMIT Z09 ENC F/U 10-20-2015 A Kristy QUEZADA EXAM AFTR PSC CMPL TX OTH THAN MALIG NEOPLSM B370 CANDIDAL 10-19-2015 [facility] STOMATITIS SERV [facility] R112 NAUSEA WITH 10-19-2015 [facility] VOMITING SERV UNSPECIFIED FOUNDATION I509 HEART 10-15-2015 [facility] FAILURE HOME UNSPECIFIED MEDICAL EQUIPME R531 WEAKNESS 09-20-2015 [facility] 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 [facility] R BLOCK SERV [facility]OUND[facility] I4510 UNSPECIFIED 09-15-2015 [facility] RIGHT SERV BUNDLE-BRAN FOUNDATION CH BLOCK R001 BRADYCARDIA 09-15-2015 [facility] UNSPECIFIED FOUNDATION B965 PSEUDOMONAS 09-14-2015 [facility] CAUSE OF SERV DZ [facility] CLASSIFIED ELSEWHERE J9600 ACUTE 09-14-2015 [facility] RESPIRATORY SERV FAIL UNS FOUNDATION HYPOXIA/HYP ERCAPNIA J9811 ATELECTASIS 09-14-2015 [facility] X10492 ENCOUNTER 09-14-2015 [facility] SURG SERV AFTERCARE [facility] FLW SURG DIGESTIVE SYS Z049 ENCOUNTER 09-13-2015 [facility] EXAMINATION SERV &OBSERVATIO FOUNDATION N FOR UNS REASON K5900 CONSTIPATIO 09-12-2015 [facility] N SERV UNSPECIFIED FOUNDATION R140 ABDOMINAL 09-10-2015 [facility] DISTENSION SERV GASEOUS [facility]OUNDATION R0989 OTH SPEC SX 09-09-2015 [facility] & SIGNS SERV INVLV THE FOUNDATION CIRC & RESP SYS A419 SEPSIS 09-08-2015 [facility] UNSPECIFIED SERV ORGANISM FOUNDATION E873 ALKALOSIS 09-08-2015 [facility] E876 HYPOKALEMIA 09-08-2015 [facility] J90 PLEURAL 09-08-2015 [facility] EFFUSION SERV NOT FOUNDATION ELSEWHERE CLASSIFIED J9620 ACUTE 09-08-2015 [facility] CHRONIC SERV RESP FAIL FOUNDATION UNS HYPOXIA/HYP ERCAPNIA J984 OTHER 09-08-2015 [facility] DISORDERS SERV OF LUNG FOUNDATION R109 UNSPECIFIED 09-08-2015 [facility] ABDOMINAL SERV PAIN FOUND[facility] Z4682 ENCOUNTER 09-08-2015 [facility] ADJUST HOSPI NON-VASCULA R CATHETER 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-07-2015 [facility] DISORDER SERV UNSPECIFIED FOUNDATION I517 CARDIOMEGAL 09-07-2015 [facility] Y SERV [facility] I5189 OTHER 09-07-2015 [facility] ILL-DEFINED SERV HEART [facility] DISEASES R0902 HYPOXEMIA 09-06-2015 [facility] R0689 OTHER 09-02-2015 [facility] ABNORMALITI SERV ES OF FOUNDATION BREATHING J942 HEMOTHORAX 08-30-2015 [facility] J948 OTHER 08-30-2015 [facility] SPECIFIED SERV PLEURAL FOUNDATION CONDITIONS L538 OTHER 08-30-2015 [facility] SPECIFIED SERV ERYTHEMATOU FOUNDATION S CONDITIONS Z9889 OTHER 08-30-2015 [facility] SPECIFIED SERV POSTPROCEDU FOUNDATION RAL STATES 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 K4030 UNILAT 08-25-2015 [facility] INGUINAL [facility] NGUYEN W/OBST HOSPI W/O GANGRN NOT RECUR K4040 UNILAT 08-25-2015 [facility] INGUINAL SERV NGUYEN FOUNDATION W/GANGREN NOT SPEC RECUR Z7901 PIPELINE DISPATCHER 08-25-2015 [facility] CURRENT USE SERV OF FOUNDATION ANTICOAGULA NTS W49300 ELEVATED 08-24-2015 [facility] BLOOD [facility] P UNSPECIFIED K4090 UNILAT 08-24-2015 [facility] INGUINAL SERV NGUYEN W/O FOUNDATION OBST/GANGRE N NOT RECUR K5660 UNSPECIFIED 08-24-2015 [facility] AMBULANCE SERVICE OBSTRUCTION R1031 RIGHT LOWER 08-24-2015 [facility] PA[facility] HOS[facility] 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[facility] 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 J189 PNEUMONIA 08-03-2015 [facility] UNSPECIFIED MEDICAL ORGANISM IMAGING ASS J439 EMPHYSEMA 08-03-2015 [facility] UNSPECIFIED [place] INTERNAL MED J929 PLEURAL 08-03-2015 [facility] WITHOUT IMAGING ASS ASBESTOS R002 PALPITATION 08-03-2015 [facility] S SERV [facility] R031 NONSPECIFIC 08-03-2015 [facility] LOW SERV BLOOD-PRESS [facility]OUND[facility] URE READING R42 DIZZINESS 08-03-2015 [facility] AND SERV GIDDINESS [facility] 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 08-03-2015 [place] [facility] [place] SUPPLEMENTA INTERNAL L OXYGEN MED J42 UNSPECIFIED 07-13-2015 [facility] CHRONIC MEDICAL BRONCHITIS IMAGING ASS Z7722 CONTACT W/ 07-13-2015 [facility] & SUSPECTED SERV EXPOS [facility] ENVIR TOBACCO SMOKE J40 BRONCHITIS 03-25-2015 [facility] NOT MEDICAL SPECIFIED IMAGING ASS ACUTE OR CHRONIC R091 PLEURISY 01-21-2015 [facility] 4280 CONGESTIVE 01-14-2015 [facility] HEART HOME FAILURE MEDICAL UNSPECIFIED EQUIPME 38713 OBSTRUCTIVE 01-14-2015 [facility] WITHOUT EXACERBAT 496 CHRONIC 01-14-[address] [facility] AIR[facility]AY HOME OBSTRUCTION MEDICAL NEC EQUIPME 56036 NUCLEAR 12-28-2014 [facility] SCLEROSIS JAMILAH 60242 OBST 09-06-2014 A Kristy QUEZADA CHRONIC PSC BRONCHITIS W/ACUTE BRONCHITIS 07213 LOSS OF 09-06-2014 A Kristy QUEZADA WEIGHT PSC 92050 OTHER CHEST 09-06-2014 A Kristy QUEZADA PAIN PSC 46535 OBSTRUCTIVE 09-05-2014 [facility] SLEEP HOME APNEA MEDICAL EQUIPME 7242 LUMBAGO 04-01-2014 A Kristy QUEZADA MD PSC V0382 NEED PROPH 04-01-2014 A Kristy QUEZADA VACCINATION PSC AGAINST STREP PNEUMONE 89990 ATRIAL 01-13-2014 [facility] FIBRILLATIO [facility] N INC 19406 REFLUX 01-13-2014 [facility] ESOPHAGITIS [facility] INC 73981 UNS 01-13-2014 [facility] GASTRITIS&G [facility] ASTRODUODIT INC IS W/O MENTION HEMORR 26723 ABDOMINAL 01-13-2014 [facility] PAIN, [facility] GENERALIZED INC V5869 LONG-TERM 01-13-2014 [facility] (CURRENT) [facility] USE OF INC OTHER MEDICATIONS 36891 CHEST PAIN 11-24-2013 [facility] UNSPECIFIED [facility] INC 5110 PLEURISY 10-29-2013 [facility] WITHOUT MEDICAL MENTION IMAGING ASS EFFUS/CURRE NT TB 7862 COUGH 10-29-2013 [facility] 77925 INSOMNIA 12-16-2012 A Kristy QUEZADA UNSPECIFIED PSC 81578 OTHER 12-16-2012 A Kristy QUEZADA MALAISE AND PSC FATIGUE 69358 FEVER 05-23-2012 [facility] UNSPECIFIED DON 65488 WHEEZING 05-23-2012 J[facility] DON 1120 CANDIDIASIS 05-21-2012 J[facility] OF MOUTH DON 37964 OTHER 05-21-2012 FRANCESCA DISEASES OF EMY LUNG NOT ELSEWHERE CLASSIFIED 4940 BRONCHIECTA 01-28-2012 [facility] SIS WITHOUT MEDICAL ACUTE IMAGING ASS EXACERBATIO N 5119 UNSPECIFIED 01-28-2012 [facility] PLEURAL MEDICAL EFFUSION IMAGING ASS 46030 OTHER 01-28-2012 [facility] NONSPECIFIC [facility] ABNORMAL INC FINDING OF LUNG FIELD 33656 OSTEOARTHRO 01-02-2012 JAMES S INVLV MX DON [place] [address] OBSTRUCTIVE 11-12-2011 [facility] CHRONIC [facility] BRONCHITIS INC WITH EXACERBATIO N 60083 ESOPHAGEAL 11-12-2011 [facility] REFLUX [facility] INC 2859 UNSPECIFIED 10-05-2011 [facility] ANEMIA [facility] INC 5180 PULMONARY 10-05-2011 [facility]LL[facility]SE [facility] 486 PNEUMONIA, 09-28-2011 [facility] ORGANISM MEDICAL UNSPECIFIED IMAGING ASS 5070 PNEUMONITIS 09-28-2011 [facility] DUE TO JAM INHALATION OF FOOD OR VOMITUS 06259 SHORTNESS 09-28-2011 [facility] OF BREATH [facility] INC 10934 ABDOMINAL 09-28-2011 [facility] PAIN, [facility] EPIGASTRIC INC V1261 PERSONAL 09-28-2011 [facility] HISTORY JAM PNEUMONIA RECURRENT 21526 PNEUMONIA 06-08-2011 [facility] DUE TO DON OTHER SPECIFIED BACTERIA 2724 OTHER AND 05-11-2011 [facility] UNSPECIFIED PHYSICIANS [place] HYPERLIPIDE [place] 2768 HYPOPOTASSE 05-11-2011 [facility] [place] PHYSICIANS [place] 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 6019 UNSPECIFIED 05-11-2011 [place] [address] PAIN IN 05-11-2011 [facility] JOINT, PHYSICIANS MULTIPLE LA SITES 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 5183 PULMONARY 11-28-2009 [facility] A 87790 ACUTE 11-28-2009 [facility] RESPIRATORY SERV FAILURE FOUNDATIO 7856 ENLARGEMENT 11-28-2009 [facility] NODES 7931 NONSPEC 11-28-2009 [facility] FIND RAD SERV OTH EXAM FOUNDATIO BODY STRUCT LUNG FIELD V1582 PERS HX 11-28-2009 [facility] USE [facility] PRESENTING [facility] V7282 PRE-OPERATI 11-28-2009 [facility] VE SERV RESPIRATORY FOUNDATIO EXAMINATION 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 90712 DYSPHAGIA 11-18-2009 [facility] UNSPECIFIED [facility]ICAL IMAGING ASS 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, 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 67757 OSTEOARTHRO 08-23-2009 ERIKA, SIS UNSPEC DON R WHETHER GEN/LOC LOWER LEG 74926 OSTEOARTHRO 08-23-2009 ERIKA, S UNSPEC DON R GEN/LOC OTH SPEC SITES 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 UNSPECIFIED 22089 NONEXUDATIV 07-20-2008 RET[facility] & 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 07-20-2008 [facility] & SENILE VITREOUS MACULAR ASSOC[facility]ATES GARRYERAKEANU O N OF RETINA 83526 CRYSTALLINE 07-20-2008 RETINA & DEPOSITS VITREOUS IN VITREOUS ASSOCIATES O 4610 ACUTE 02-27-2008 JAMES, MAXILLARY DON R SINUSITIS 4659 ACUTE URIS 02-27-2008 ERIKA, OF DON R UNSPECIFIED SITE 8472 LUMBAR 11-14-2007 ERIKA, SPRAIN AND DON R STRAIN 4660 ACUTE 08-02-2007 ERIKA, BRONCHITIS DON R 4871 INFLUENZA 07-04-2007 ERIKA, WITH OTHER DON R RESPIRATORY MANIFESTATI ONS 50347 PAIN IN 04-25-2007 ERIKA, JOINT, DON R SHOULDER REGION 76847 UNSPECIFIED 04-25-2007 ERIKA, SYNOVITIS DON R AND [...] ET 03 93 8 # 03 93 [place] 00 04 04 00 12 6 RI [...] [Presen 14:35 ce] in Blood by [facility] opy Procedures Procedure DOS Code Location Performer Comment ALBUTEROL J7620 YOUR YOUR TO 2.5 7 PHARMACY PHARMACY [facility] IPRATROPI UM BROM TO 0.5 MG ADMN SET A7003 YOUR YOUR SM VOL 7 PHARMACY [facility] PNEUMAT NEBULIZR DISPBL ECG 88175 [facility] ROUTINE 7 PHYSICIAN ECG S GROUP W/LEAST 12 LDS I&R ONLY CT THORAX 27973 [facility]ALA 7 [facility] W/[place] [address] [facility] AYALA UREA 7 [facility] HOSP NITROGEN INC INC QUANTITAT ARCENIO CREATININ 11954 [facility] AYALA E BLOOD 7 [facility] INC INC ALBUTEROL J7620 YOUR YOUR TO 2.5 7 PHARMACY PHARMACY [facility] IPRATROPI UM BROM TO 0.5 MG ADMN SET A7003 YOUR YOUR SM VOL 7 PHARMACY PHARMACY [facility] PNEUMAT NEBULIZR DISPBL ALBUTEROL J7620 A C A C TO 2.5 7 PILAR QUEZADA MD MG & PSC PSC IPRATROPI UM BROM TO 0.5 MG ECG 15568 [facility] ROUTINE 7 PHYSICIAN ECG S GROUP W/LEAST 12 LDS I&R ONLY O2 CONC 1 E1390 [facility] VARMA 7 HOME HOME 85%/>02 MEDICAL MEDICAL CONC AT EQUIPME [facility] FLW RATE R & L HRT 81601 [facility] CATH 7 PHYSICIAN WINJX HRT S GROUP ART& L VENTR IMG RADIOLOGI 05607 TEX Wagner 7 MEDICAL EXAMINATI IMAGING ON CHEST ASS [place] FRONTAL ECG 78854 [facility] ELIZABETH JR ROUTINE 7 [facility] W/LEAST P 12 LDS I&R ONLY ALBUTEROL J7620 YOUR YOUR TO 2.5 7 PHARMACY PHARMACY [facility] IPRATROPI UM BROM TO 0.5 MG ADMN SET A7003 YOUR YOUR SM VOL 7 PHARMACY PHARMACY [employer] PNEUMAT NEBULIZR DISPBL O2 CONC 1 E1390 [facility] [place] 7 HOME HOME 85%/>02 MEDICAL MEDICAL CONC AT EQUIPME EQUIPME PRS FLW RATE O2 CONC 1 E1390 [facility] [place] 7 HOME HOME 85%/>02 MEDICAL MEDICAL CONC AT EQUIPME EQUIPME PRSC FLW RATE SBSQ 95086 [facility] 7 MEDICAL CARE/DAY SERV 25 FOUNDATIO MINUTES N RADIOLOGI 87734 [facility] C EXAM 7 MEDICAL MEDICAL CHEST 2 IMAGING IMAGING VIEWS ASS ASS FRONTAL&L ATERAL O2 CONC 1 E1390 [facility] 7 HOME HOME 85%/>02 MEDICAL MEDICAL CONC AT EQUIPME EQUIPME PRSC FLW RATE O2 CONC 1 E1390 [facility] LEVY [facility] PORT 6 HOME HOME 85%/>02 MEDICAL MEDICAL CONC AT EQUIPME EQUIPME PRSC FLW RATE O2 CONC 1 E1390 [facility] 6 HOME HOME 85%/>02 MEDICAL MEDICAL CONC AT EQUIPME EQUIPME PRSC FLW RATE ALBUTEROL J7620 YOUR YOUR TO 2.5 6 PHARMACY PHARMACY [employer] IPRATROPI UM BROM TO 0.5 MG ADMN SET A7003 YOUR YOUR SM VOL 6 PHARMACY PHARMACY [employer] PNEUMAT NEBULIZR DISPBL PHRM Q0513 YOUR YOUR DISPENSIN 6 PHARMACY PHARMACY G [employer] INHALATIO N RX; PER 30 DAYS O2 CONC 1 E1390 [facility] 6 HOME HOME 85%/>02 MEDICAL MEDICAL CONC AT EQUIPME [facility]QU[facility] G0463 [facility] A[facility]AL[facility] OUTPATIEN 6 [facility] T CLIN INC INC VISIT ASSESS & MGMT PT O2 CONC 1 E1390 [facility] LEV[facility] PORT 6 HOME HOME 85%/>02 MEDICAL MEDICAL CONC [place] [address] [facility] ABDOMEN 6 [facility] W/CONTRAS INC INC T MATERIAL BLOOD 14690 [facility] COUNT 6 [facility] COMPLETE INC INC AUTO&AUTO DIFRNTL WBC COLLECTIO 87903 [facility] N VENOUS 6 [facility] BLOOD INC INC VENIPUNCT URE COMPREHEN 04907 [facility] SIVE 6 [facility] METABOLIC INC INC PANEL LOCM Q9967 [facility] AYALA [phone] 6 [facility] MG/ML INC INC IODINE CONCENTRA TION PER ML ANES 13204 [facility] UPPER GI 6 ANESTH PALMA ENDOSCOPY OF THE PROXIMAL BLUE TO DUODENUM O2 CONC 1 E1390 [facility] [place] 6 HOME HOME 85%/>02 MEDICAL MEDICAL CONC AT EQUIPME EQUIPME PRS FLW RATE RADEX 93354 [facility] A[facility] UPPER GI 6 [facility] W/WO INC INC GLUCAGON/ DELAY IMAGES W/KUB O2 CONC 1 E1390 [facility] PENA [place] 6 HOME MAR 85%/>02 MEDICAL CONC AT EQUIPME PRS FLW RATE RADEX 57761 [facility] ALL UPPER GI 6 MEDICAL W/WO IMAGING GLUCAGON/ ASS DELAY IMGES W/O KUB COLLECTIO 47893 [facility]oss VENOUS 6 [facility] BLOOD INC INC VENIPUNCT URE FLOW 39884 [facility] AYALA CYTOMETRY 6 [facility] CELL INC INC SURF MARKER TECHL ONLY EA FLOW 07141 [facility] AYALA CYTOMETRY 6 [facility] HOSP CELL INC INC SURF MARKER TECHL ONLY 1ST FLOW 60212 MOLECULAR MOLECULAR CYTOMETRY 6 [facility] PATH[facility] PATHOLOGY 2-8 LAB NETW LAB NETW MARKERS NEBULIZER E0570 [facility] LEVY WITH 6 HOME HOME COMPRESSO MEDICAL MEDICAL R EQUIPME EQUIPME O2 CONC 1 E1390 [facility] D[place] 6 HOME KEY 85%/>02 MEDICAL CONC AT EQUIPME PRS FLW RATE SEAT E0156 [facility] ATTACHMEN 6 T WALKER WALKER E0143 [facility] FOLDING 6 WHEELED ADJUSTABL E/FIXED HEIGHT ECG 21123 [place] TANIYA ABIMAEL ROUTINE 6 MEDICAL ECG SERV W/LEAST FOUNDATIO 12 LDS N I&R ONLY ECG 48760 [place] [facility] ROUTINE 6 MEDICAL NAN ECG SERV W/LEAST FOUNDATIO 12 LDS N I&R ONLY SBSQ 83066 [facility] 6 MEDICAL KEYANA CARE/DAY SERV 25 FOUNDATIO MINUTES N RADIOLOGI 86331 [place] JAMES CON C 6 MEDICAL EXAMINATI SERV ON CHEST FOUNDATIO SINGLE N VIEW FRONTAL RADIOLOGI 64044 [place] [facility] C 6 MEDICAL AYA MAR EXAMINATI SERV ON CHEST FOUNDATIO SINGLE N VIEW FRONTAL SBSQ 19272 [facility] 6 MEDICAL KYEA[place] CARE/DAY SERV 15 FOUNDATIO MINUTES N SBSQ 22265 [facility] 6 MEDICAL KEYANA CARE/DAY SERV 15 FOUNDATIO MINUTES N RADIOLOGI 44440 [place] [facility] 6 MEDICAL EXAMINATI SERV ON CHEST FOUNDATIO SINGLE N VIEW FRONTAL RADIOLOGI 00594 [place] [facility] C 6 MEDICAL EXAMINATI SERV ON CHEST FOUNDATIO SINGLE N VIEW FRONTAL SBSQ 92516 [facility] 6 MEDICAL CARE/DAY SERV 25 FOUNDATIO MINUTES N SBSQ 47798 [facility] 6 MEDICAL CARE/DAY SERV 25 FOUNDATIO MINUTES N RADIOLOGI 53166 [place] LE[facility] C 6 MEDICAL EXAMINATI SERV ON CHEST FOUNDATIO SINGLE N VIEW FRONTAL RADEX 29711 [place] [facility] ABDOMEN 1 6 MEDICAL SUSAN SERV ANTEROPOS FOUNDATIO TERIOR N VIEW ECG 72023 [facility] ROUTINE 6 MEDICAL ECG SERV W/LEAST FOUNDATIO 12 LDS N I&R ONLY RADEX 30158 [facility] ABDOM[facility] 1 6 Y OF CAR [facility] TERIOR VIEW CRITICAL 55994 [place] [facility] C[facility] 6 MEDICAL ILL/INJUR SERV ED FOUNDATIO PATIENT N INIT 30-74 MIN RADIOLOGI 10426 [place] MAHMOOD LEATHA C 6 MEDICAL EXAMINATI SERV ON CHEST FOUNDATIO SINGLE N VIEW FRONTAL ECG 96774 [facility] ROUTINE 6 MEDICAL ECG SERV W/LEAST FOUNDATIO 12 LDS N I&R ONLY RADIOLOGI 20317 [place] LUKEROV[facility] C 6 MEDICAL AYA MAR EXAMINATI SERV ON CHEST FOUNDATIO SINGLE N VIEW FRONTAL SBSQ 58974 [place] [facility] 6 MEDICAL CARE/DAY SERV [address] THORAX [address] [place] [facility] CON 6 MEDICAL W/CONTRAS SERV T FOUNDATIO MATERIAL N RADEX 44464 [facility] ABDOMEN 1 7 Y [place] [address] [place] RE[place] CLEO ABDOMEN & 6 MEDICAL PELVIS SERV W/CONTRAS FOUNDATIO T N MATERIAL ECHO 30438 [place] [facility] R-T 6 MEDICAL ERIKA 2D SERV W/WOM-MOD FOUNDATIO E COMPL N SPEC&COLR D SBSQ 96944 [place] [address] MEDICAL AND CARE/DAY SERV 25 FOUNDATIO MINUTES N RADIOLOGI 18400 [place] J[place] CON C 6 MEDICAL EXAMINATI SERV ON CHEST FOUNDATIO SINGLE N VIEW FRONTAL RADEX ABD 36258 [place] [facility] COMPL 6 MEDICAL JURGEN AQT ABD SERV ANNEL W/S/E/D FOUNDATIO VIEWS 1 N VIEW CH INITIAL [address]30 [place] [address] MEDICAL SUN KAYODE CARE/DAY SERV 30 FOUNDATIO MINUTES N ECG 36062 [facility] ROUTINE 6 MEDICAL ECG SERV W/LEAST FOUNDATIO 12 LDS N I&R ONLY SBSQ 89531 [facility] 6 MEDICAL AND CARE/DAY SERV 25 FOUNDATIO MINUTES N RADIOLOGI 87278 [place] [facility] CON C 6 MEDICAL EXAMINATI SERV ON CHEST FOUNDATIO SINGLE N VIEW FRONTAL ECG 79385 [facility] ROUTINE 6 MEDICAL ECG SERV W/LEAST FOUNDATIO 12 LDS N I&R ONLY RADIOLOGI 62113 [place] [facility] CON C 6 MEDICAL EXAMINATI SERV ON CHEST FOUNDATIO SINGLE N VIEW FRONTAL RADIOLOGI 68695 [place] LUKEROGALLIT[place] C 6 MEDICAL AYA MAR EXAMINATI SERV ON CHEST FOUNDATIO SINGLE N VIEW FRONTAL RADEX 16825 [facility] A[facility]OM[facility] 1 6 Y [facility] [place] RADEX 48168 [place] ZAGUROVSK ABDOMEN 1 6 MEDICAL AYA MAR SERV ANTEROPOS FOUNDATIO TERIOR N VIEW RADIOLOGI 46364 [place] ROBBINS C 6 MEDICAL JESS EXAMINATI SERV ON CHEST FOUNDATIO SINGLE N VIEW FRONTAL CT THORAX 20524 [place] ARMENDARIZ JENNA 6 MEDICAL W/CONTRAS SERV T FOUNDATIO MATERIAL N RADIOLOGI 00618 [place] ZAGUROVSK C 6 MEDICAL AYA MAR EXAMINATI SERV ON [place] [address] [place] AYOOB AND ABDOMEN & 6 MEDICAL PELVIS SERV W/CONTRAS FOUNDATIO T N MATERIAL RADEX 68113 [facility] 6 [facility] [place] RADEX 06010 [facility] 1 6 [facility] [facility] [place] SBSQ 51189 [facility] 6 MEDICAL AND CARE/DAY SERV 25 FOUNDATIO MINUTES N RADIOLOGI 97039 [place] DELL CAR C 6 MEDICAL EXAMINATI SERV ON CHEST FOUNDATIO SINGLE N VIEW FRONTAL SBSQ 93120 [facility] 6 MEDICAL AND CARE/DAY SERV 25 FOUNDATIO MINUTES N ECG 50168 [place] PELAEZ ROUTINE 6 MEDICAL NAN ECG SERV W/LEAST FOUNDATIO 12 LDS N I&R ONLY RADIOLOGI 95699 [place] JAMES CON C 6 MEDICAL EXAMINATI SERV ON CHEST FOUNDATIO SINGLE N VIEW FRONTAL ECG 39684 [place] HUI MIKHAIL ROUTINE 6 MEDICAL ECG SERV W/LEAST FOUNDATIO 12 LDS N I&R ONLY ARTL 09893 [facility] CATH/CAN 6 [facility] SFUSION SPX PRQ LEVEL III 44635 [place] HIEU SURG 6 MEDICAL FRANCO PATHOLOGY SERV FOUNDATIO GROSS&[place] [address] [place] HIEU SURG 6 MEDICAL FRANCO PATHOLOGY SERV FOUNDATIO GROSS&JESS N ROSCOPIC EXAM SBSQ 40191 [facility] 6 MEDICAL RONNY CARE/DAY SERV 25 FOUNDATIO MINUTES N RPR 1ST 82567 [facility] 6 MEDICAL RONNY HRNA AGE SERV 5 YRS/> FOUNDATIO INCARCERA N KISHOR ANESTHESI 44218 [facility] HERNIA 6 Y OF REPAIR [facility] ABDOMEN NOS CREATINE 70272 LUCY AYALA KINASE 6 [facility] [place] [address] LUCY AYALA LIPASE 6 [facility] INC INC AMBULANCE A0429 [facility] SERVICE 6 AMBULANCE AMBULANCE BLS SERVICE SERVICE EMERGENCY TRANSPORT RADIOLOGI 58781 LUC[facility] AYALA C 6 [facility] EXAMINATI INC INC ON CHEST SINGLE VIEW FRONTAL THER 18215 LUCY AYALA PROPH/DX 6 [facility] NJX EA INC INC SEQL IV PUSH SBST/DRUG FAC COMPREHEN 21969 LUCY AYALA SIVE 6 [facility] [place] [address] LUCY AYALA AMYLASE 6 [facility] INC INC CREATINE 00653 LUCY AYALA KINASE MB 6 [facility] FRACTION INC INC ONLY INJECTION J2405 LUCY AYALA 6 [facility] ONDANSETR INC INC ON HCL PER 1 MG INJ J2543 LUCY AYALA PIPERACIL 6 [facility] YONATHAN INC INC SOD/TAZOB ACTAM SOD 1 G/0.125 G ECG 65004 LUCY BEVERLY ROUTINE 6 [facility] W/LEAST P 12 LDS [place] [address] LUCY AYALA INFUSION 6 [facility] THERAPY/P INC INC ROPHYLAXI S /DX 1ST TO 1 [place] [address] LUCY AYALA TROPONIN 6 [facility] QUANTITAT INC INC ARCENIO BLOOD 43271 LUCY AYALA COUNT 6 [facility] COMPLETE INC INC AUTO&AUTO DIFRNTL WBC GROUND A0425 [facility] 6 AMBULANCE AMBULANCE [place] [address] [place] FONT[place] ALL ABDOMEN & 6 MEDICAL PELVIS IMAGING W/O ASS CONTRAST MATERIAL ECG 33337 LUCY AYALA ROUTINE 6 [facility] ECG INC INC W/LEAST 12 LDS TRCG ONLY W/O I&R INITIAL 92921 [facility] 6 MEDICAL [facility] CARE/DAY SERV 50 FOUNDATIO MINUTES N COLLECTIO 96882 Darnell ROY JENNA N VENOUS 6 PILAR PLEITEZ BLOOD PSC VENIPUNCT URE BLOOD 37889 Darnell ROY JENNA COUNT 6 PILAR PLEITEZ COMPLETE PSC AUTO&AUTO DIFRNTL WBC NEBULIZER E0570 MILDREDTEJINDER LEVY WITH 6 HOME HOME COMPRESSO MEDICAL MEDICAL R EQUIPME EQUIPME INITIAL [address] CARE/DAY INTERNAL 70 MED MINUTES ECG 83365 [facility] ROUTINE 6 [facility] W/LEAST P 12 LDS I&R ONLY RADIOLOGI 75904 [place] FR[facility] C 6 MEDICAL EXAMINATI IMAGING ON CHEST ASS SINGLE VIEW FRONTAL NEBULIZER E0570 MILDRED LEVY WITH 6 HOME HOME COMPRESSO MEDICAL MEDICAL R EQUIPME EQUIPME ALBUTEROL J7620 YOUR YOUR TO 2.5 6 PHARMACY PHARMACY [employer] IPRATROPI UM BROM TO 0.5 MG ADMN SET A7003 YOUR YOUR SM VOL 6 PHARMACY PHARMACY [employer] LLC PNEUMAT NEBULIZR DISPBL COLLECTIO 00003 LUCY AYALA N VENOUS 6 [facility] BLOOD INC INC VENIPUNCT URE COMPREHEN 10209 LUCY AYALA SIVE 6 [facility] METABOLIC INC INC PANEL BLOOD 01091 LUCY AYALA COUNT 6 [facility] COMPLETE INC INC AUTO&AUTO DIFRNTL WBC RADIOLOGI 57708 LUCY AYALA C EXAM 6 [facility] CHEST 2 INC INC VIEWS FRONTAL&L ATERAL RADIOLOGI 45527 [place] FONT[place] C 6 MEDICAL EXAMINATI IMAGING [...] YOUR DISPENSIN 5 PHARMACY PHARMACY G FEE [employer] INHALATIO N RX; PER 30 DAYS ALBUTEROL J7620 YOUR YOUR TO 2.5 5 PHARMACY PHARMACY [employer] IPRATROPI UM BROM TO 0.5 MG RADIOLOGI 79075 [facility] ALL C EXAM 5 MEDICAL CHEST 2 IMAGING VIEWS ASS FRONTAL&L ATERAL CT THORAX 55929 [facility] ALL 5 MEDICAL W/CONTRAS IMAGING T ASS MATERIAL RADIOLOGI 76581 [facility] ALL C EXAM 5 MEDICAL CHEST 2 IMAGING VIEWS ASS FRONTAL&L ATERAL ALBUTEROL J7620 YOUR YOUR TO 2.5 5 PHARMACY PHARMACY MG & [employer] IPRATROPI UM BROM TO 0.5 MG PHARM G0333 YOUR YOUR DISPEN 5 PHARMACY PHARMACY FEE [employer] RX; INITIAL 30-DAY SUPPLY NEBULIZER E0570 MILDRED LEVY WITH 5 HOME HOME COMPRESSO MEDICAL MEDICAL R EQUIPME EQUIPME CATARACT [address] [facility] REMOVAL 5 [...] EQUIPME EQUIPME PRESSURE DEVICE FULL FACE A7030 MILDERD MILDRED MASK 4 HOME HOME USED MEDICAL MEDICAL W/POS EQUIPME EQUIPME ARWAY PRESS DEVICE EA POLYSOM 63172 NEERAJ KERN MAR 6/>YRS 4 SLEEP 4/> NEUROSCIE ADDL NCES CENT AMA ATTND POLYSOM 26024 LUCY AYALA 6/>YRS 4 [facility] SLEEP 4/> INC INC ADDL AMA ATTND IMC/IMC G0461 LUCY AYALA PER 4 [facility] SPECIMEN; INC INC 1ST SNGL/[place] [address] LUCY AYALA SURG 4 [facility] PATHOLOGY INC INC GROSS&JESS ROSCOPIC EXAM SPECIAL 90572 LUCY AYALA STAIN 4 [facility] GROUP 1 INC INC MICROORGA NISMS I&R SPCL STN 66623 LUCY AYALA 2 I&R 4 [facility] EXCPT INC INC MICROORG/ ENZYME/[place] [address] LUCY AYALA INFUSION 4 [facility] THERAPY INC INC PROPHYLAX [place] [address] LUCY AYALA INFUSION 4 [facility] THERAPY/P INC INC ROPHYLAXI S /DX 1ST TO 1 HR SPMTRY 64849 LUCY AYALA W/VC 4 [facility] EXPIRATOR INC INC Y ALFREDO W/WO MXML VOL VNTJ ECHO 26985 LUCY AYALA TTHRC R-T 4 [facility] 2D INC INC W/WOM-MOD E COMPL SPEC&COLR D MYOCARDIA 87835 LUCY AYALA L SPECT 4 [facility] MULTIPLE INC INC STUDIES CV STRS 41847 GLENN JR GLENN JR TST 4 DWI DWI XERS&/OR RX CONT ECG I&R ONLY MYOCARDIA 72421 TEX MA L 4 MEDICAL EMY PERFUSION IMAGING PLANAR ASS MULTIPLE STUDIES CV STRS 68480 KEITH MORENO TST 4 XERS&/OR RX CONT ECG W/O I&R RADIOLOGI 08117 TEX Wagner EXAM 4 MEDICAL EMY CHEST [...] DON DON CEFAZOLIN SODIUM 500 MG RADIOLOGI 16804 LUCY AYALA C EXAM 3 [facility] [...] EQUIPME EQUIPME FLWMTR HUMIDFR&M ASK CT THORAX 99827 [place] FRANC[place] W/O 2 MEDICAL EMY CONTRAST IMAGING MATERIAL ASS 3D 58291 [place] FRANC[place] RENDERING 2 MEDICAL EMY IMAGING W/INTERP& ASS POSTPROC DIFF WORK STATION PRTBLE E0431 MILDRED MILDRED GASEOUS 2 HOME HOME O2 SYS MEDICAL MEDICAL RENT; EQUIPME EQUIPME FLWMTR HUMIDFR&M ASK TOBACCO 97195 JAMES JAMES USE 2 DON DON CESSATION INTERMEDI ATE 3-10 MINUTES PRTBLE E0431 MILDRED MILDRED GASEOUS 2 HOME HOME O2 SYS MEDICAL MEDICAL RENT; EQUIPME EQUIPME FLWMTR HUMIDFR&M ASK PRTBLE E0431 MILDRED MILDRED GASEOUS 2 HOME HOME O2 SYS MEDICAL MEDICAL RENT; EQUIPME EQUIPME FLWMTR HUMIDFR&M ASK RADIOLOGI 36266 LUCY AYALA C EXAM 2 [facility] CHEST 2 INC INC VIEWS FRONTAL&L ATERAL SPMTRY 19262 MARIS POLLOCK W/VC 2 JAM JAM EXPIRATOR Y ALFREDO W/WO MXML VOL VNTJ PRTBLE E0431 MILDRED MILDRED GASEOUS 2 HOME HOME O2 SYS MEDICAL MEDICAL RENT; EQUIPME EQUIPME FLWMTR HUMIDFR&M ASK CUL BACT 31535 LUCY AYALA XCPT 2 [facility] URINE INC INC BLOOD/STO OL AEROBIC ISOL CULTURE 60936 LUCY AYALA BACTERIAL 2 [facility] ANY INC INC SOURCE ANAEROBIC ISO&ID CULTURE 90737 LUCY AYALA TUBERCLE/ 2 [facility] OTH INC INC ACID-FAST BACILLI [place]OL TISS FRED 92157 LUCY AYALA SLIDE 2 [facility] SAMPS INC INC SKN/HR/NL S FNGI/[place] [address] LUCY AYALA GUIDANCE 2 [facility] NEEDLE INC INC PLACEMENT BLOOD 32123 LUCY AYALA GASES ANY 2 [facility] INC INC COMBINATI ON PH PCO2 PO2 CO2 HCO3 GLUCOSE 16934 LUCY AYALA BODY 2 [facility] FLUID INC INC OTHER THAN BLOOD IRON 88177 LUCY AYALA BINDING 2 [facility] CAPACITY INC INC LACTATE 30810 LUCY AYALA DEHYDROGE 2 [facility] NASE LDH INC INC PROTEIN 92990 LUCY AYALA XCPT 2 [facility] REFRACTOM INC INC ETRY SERUM PLASMA/WH L BLD SMR PRIM 90409 LUCY AYALA SRC 2 [facility] GRAM/GIEM INC INC SA STAIN BCT FUNGI/VAHID L RADIOLOGI 50484 LUCYJOAN AYALA C EXAM 2 [facility] CHEST 2 INC INC VIEWS FRONTAL&L ATERAL CT THORAX 54609 LUCY BOBON W/O 2 [facility] CONTRAST INC INC MATERIAL NONINVASI 11964 LUCY AYALA VE 2 [facility] EAR/PULSE INC INC OXIMETRY SINGLE DETER CYANOCOBA 16066 LUCY AYALA BETTIE 2 [facility] VITAMIN INC INC B-12 THORACENT 96104 LUCY AYALA ESIS 2 [facility] PUNCTURE INC INC PLEURAL CAVITY ASPIRATIO N CYTP 76852 PATHOLOGY PATHOLOGY SLCTV 2 & & CELL CYTOLOGY CYTOLOGY ENHANCEME LAB LAB NT INTERPJ XCPT C/V COLLECTIO 24261 LUCY AYALA N VENOUS 2 [facility] BLOOD INC INC VENIPUNCT URE CELL 16470 LUCY AYALA COUNT 2 [facility] MISC BODY INC INC FLUIDS W/DIFFERE NTIAL COUNT CARBOXYHE 85000 LUCY AYALA MOGLOBIN 2 [facility] [place] [address] LUCY LUCY IRON 2 [facility] INC INC SPUTUM 39717 LUCY AYALA OBTAINING 2 [facility] SPEC INC INC AEROSOL INDUCED TX SPX ECG 35536 RUSH BEVERLY ROUTINE 2 JENNA JENNA ECG W/LEAST 12 LDS I&R ONLY CT THORAX 05458 LUCY LUCY W/O 2 [facility] CONTRAST INC INC MATERIAL ECG 97650 LUCY AYALA ROUTINE 2 [facility] ECG INC INC W/LEAST 12 LDS TRCG ONLY W/O I&R 3D 43633 TEX MA RENDERING 2 MEDICAL EMY IMAGING W/INTERP& ASS POSTPROC DIFF WORK STATION PRTBLE E0431 MILDRED LEVY GASEOUS 2 HOME HOME O2 SYS MEDICAL MEDICAL RENT; EQUIPME EQUIPME FLWMTR HUMIDFR&M ASK PRTBLE E0431 MILDRED LEVY GASEOUS 2 HOME HOME O2 SYS MEDICAL MEDICAL RENT; EQUIPME EQUIPME FLWMTR HUMIDFR&M ASK SPMTRY 18648 LUCY AYALA W/VC 2 [facility] EXPIRATOR INC INC Y ALFREDO W/WO MXML VOL VNTJ PRTBLE E0431 MILDRED MILDRED GASEOUS 2 HOME HOME O2 SYS MEDICAL MEDICAL RENT; EQUIPME EQUIPME FLWMTR HUMIDFR&M ASK PRTBLE E0431 MILDRED BARBERRELL GASEOUS 2 HOME HOME O2 SYS MEDICAL MEDICAL RENT; EQUIPME EQUIPME FLWMTR HUMIDFR&M ASK RADIOLOGI 74747 ERIKA JAMES C EXAM 2 DON DON CHEST 2 VIEWS FRONTAL&L ATERAL CT THORAX 30423 [place] FR[facility] 2 MEDICAL EMY W/CONTRAS IMAGING T ASS MATERIAL BLOOD 88044 COMBINED COMBINED COUNT 2 PHYSICIAN PHYSICIAN COMPLETE S LA S LA AUTO&AUTO DIFRNTL WBC LIPID 67405 COMBINED COMBINED PANEL 2 PHYSICIAN PHYSICIAN S LA S LA COMPREHEN 58472 COMBINED COMBINED SIVE 2 PHYSICIAN PHYSICIAN [place] [address] COMBINED COMBINED PROSTATE 2 PHYSICIAN PHYSICIAN SPECIFIC [...] O2 SYS MEDICAL MEDICAL RENT; EQUIPME EQUIPME FLWWIR HUMIDFR&M ASK O2 CONC 1 E1390 MILDRED [facility] 1 HOME HOME 85%/>02 MEDICAL MEDICAL CONC AT EQUIPME EQUIPME [facility] FLW RATE PRTBLE E0431 MILDRED LEVY GASEOUS 1 HOME HOME O2 SYS MEDICAL MEDICAL RENT; EQUIPME EQUIPME FLWWIR HUMIDFR&M ASK O2 CONC 1 E1390 MILDRED [facility] 1 HOME HOME 85%/>02 MEDICAL MEDICAL CONC AT EQUIPME EQUIPME [facility] FLW RATE PRTBLE E0431 MILDRED LEVY GASEOUS 1 HOME MED HOME MED O2 SYS EQUIP. L EQUIP. L RENT; [facility] H[facility] AS[facility] O2 CONC 1 E1390 MILDRED [facility] 1 HOME MED HOME MED 85%/>02 EQUIP. L EQUIP. L CONC AT [facility] FLW RATE PRTBLE E0431 MILDRED LEVY GASEOUS 1 HOME MED HOME MED O2 SYS EQUIP. L EQUIP. L RENT; [facility] HUMIDFR&M ASK O2 CONC 1 E1390 MILDRED [facility] 1 HOME MED HOME MED 85%/>02 EQUIP. L EQUIP. L CONC AT [facility] FLW RATE O2 CONC 1 E1390 MILDRED [facility] 1 HOME MED HOME MED 85%/>02 EQUIP. L EQUIP. L CONC AT [facility] FLW RATE PRTBLE E0431 MILDRED LEVY GASEOUS 1 HOME MED HOME MED O2 SYS EQUIP. L EQUIP. L RENT; [facility] HUMIDFR&M ASK PRTBLE E0431 MILDRED LEVY GASEOUS 1 HOME MED HOME MED O2 SYS EQUIP. L EQUIP. L RENT; [facility] HUMIDFR&M ASK O2 CONC 1 E1390 MILDRED [facility] 1 HOME MED HOME MED 85%/>02 EQUIP. L EQUIP. L CONC AT [facility] FLW RATE O2 CONC 1 E1390 MILDRED [facility] 1 HOME MED HOME MED 85%/>02 EQUIP. L EQUIP. L CONC AT [facility] FLW RATE PRTBLE E0431 MILDRED LEVY GASEOUS 1 HOME MED HOME MED O2 SYS EQUIP. L EQUIP. L RENT; [facility] HUMIDFR&M ASK PRTBLE E0431 MILDRED BAR[place]RE[place] GASEOUS 0 HOME MED HOME MED O2 SYS EQUIP. L EQUIP. L RENT; [facility] HUMIDFR&M ASK O2 CONC 1 E1390 [place] 0 HOME MED HOME MED 85%/>02 EQUIP. L EQUIP. L CONC AT [facility] FLW RATE O2 CONC 1 E1390 [place] 0 HOME MED HOME MED 85%/>02 EQUIP. L EQUIP. L CONC AT [facility] FLW RATE PRTBLE E0431 MILDRED BARBERRELL GASEOUS 0 HOME MED HOME MED O2 SYS EQUIP. L EQUIP. L RENT; [facility] HUMIDFR&M ASK O2 CONC 1 E1390 [place] 0 HOME MED HOME MED 85%/>02 EQUIP. L EQUIP. L CONC AT [facility] FLW RATE PRTBLE E0431 MILDRED [place] GASEOUS 0 HOME MED HOME MED O2 SYS EQUIP. L EQUIP. L RENT; [facility] HUMIDFR&M ASK O2 CONC 1 E1390 [place] 0 HOME MED HOME MED 85%/>02 EQUIP. L EQUIP. L CONC AT [facility] FLW RATE PRTBLE E0431 MILDRED MILDRED GASEOUS 0 HOME MED HOME MED O2 SYS EQUIP. L EQUIP. L RENT; [facility] HUMIDFR&M ASK VIRUS 23511 [facility] [address] [facility] ID IMFLUOR STAIN EA CULTURE 04328 [facility] FUNGI 0 Y Y DEFINITIMARIA [facility] E ID EACH ORGANISM YEAST SMR PRIM 54318 [facility] SRC 0 Y Y GRAM/GIEM [facility] SA STAIN BCT FUNGI/VAHID L INJECTION J2250 [facility] 0 Y Y MIDAZOLAM [facility] HCL PER 1 MG IAADI 80064 [facility] PNEUMOCUS 0 Y Y TIS [facility] CARINII CULTURE 49707 [facility] TUBERCLE/ 0 Y Y OTH [facility] ACID-FAST BACILLI ANY ISOL SMR PRIM 30701 [facility] SRC 0 Y Y FLUORESCE [facility] NT&/AFS BCT FNGI PARASIT TISS FRED 01848 [facility] SLIDE 0 Y Y [facility] SKN/HR/NL S FNGI/ECTO PARASIT CUL BACT 34067 [facility] XCPT 0 Y Y URINE [facility] BLOOD/STO OL AEROBIC ISOL RADIOLOGI 64516 [facility] C 0 [facility] ON CHEST SINGLE VIEW FRONTAL BRNCHSC 52451 [facility] W/BRNCL 0 Y Y ALVEOLAR [facility] LAVAGE INJECTION J3010 [facility] FENTANYL 0 Y Y CITRATE [facility] 0.1 MG CULTURE 15571 [facility] FNGI 0 Y Y MOLD/YEAS [facility] T PRSMPTV OTH XCPT BLOOD SPECIAL 96951 [facility] STAIN 0 Y Y GROUP 1 [facility] MICROORGA NISMS I&R BRONCHOSC 61746 [facility] OPY 0 Y Y W/TRANSBR [facility] ONCHIAL LUNG BX 1 LOBE BRONCHOSC 75471 [facility] OPY 0 Y Y NEEDLE BX [facility] TRACHEA MAIN STEM&/BRO N CELL 55646 [facility] COUNT 0 Y Y MISC BODY [facility] FLUIDS W/DIFFERE NTIAL COUNT IADNA NOS 93381 [facility] 0 Y Y AMPLIFIED [facility] PROBE TQ EACH ORGANISM VIRUS 46987 [facility] TISS CUL 0 Y [facility] ON CYTOPATHI C EFFECT CONCENTRA 37801 [facility] TION 0 Y Y INFECTIOU [facility] S AGENTS CYTP EVAL 74755 [facility] FINE 0 Y Y NEEDLE [facility] ASPIRATE INTERP & REPORT CYTP FINE 01490 [facility] NDL 0 Y Y [facility] IMMT CYTOHIST STD [place] 1ST [place] [address] [facility] SURG 0 Y Y PATHOLOGY [facility] GROSS&JESS ROSCOPIC EXAM PRTBLE E0431 MILDRED LEVY GASEOUS 0 HOME MED HOME MED O2 SYS EQUIP. L EQUIP. L RENT; FLWMTR HUMIDFR&M ASK O2 CONC 1 E1390 MILDRED [place] 0 HOME MED HOME MED 85%/>02 EQUIP. L EQUIP. L CONC AT [facility] FLW RATE PHLEBOTOM 38419 COMBINED COMBINED Y 0 PHYSICIAN PHYSICIAN THERAPEUT S LA S LA IC SEPARATE PROCEDURE DUP-SCAN 39617 [place] [facility] XTR VEINS 0 MEDICAL EMY COMPLETE IMAGING ASS BILATERAL STUDY RADEX 15879 [place] [facility] ESOPHAGUS 0 MEDICAL EMY IMAGING ASS COLLECTIO 77553 LUCY AYALA N VENOUS 0 [facility] BLOOD INC INC VENIPUNCT URE COMPREHEN 13290 LUCY AYALA SIVE 0 [facility] METABOLIC INC INC PANEL PULMONARY 70393 [place] STRESS 0 MEDICAL JAM TESTING SERV SIMPLE FOUNDATIO BLOOD 24485 LUCYJOAN BOBON COUNT 0 [facility] COMPLETE INC INC AUTO&AUTO DIFRNTL WBC BRNCDILAT 94171 LUCY LUCY RSPSE 0 [facility] SPMTRY INC INC PRE&POST- BRNCDILAT ADMN CT THORAX 51869 [place] NELLY W/O 0 MEDICAL KEY CONTRAST IMAGING MATERIAL ASS 3D 30857 [place] NELLY RENDERING 0 MEDICAL KEY IMAGING W/INTERP& ASS POSTPROC DIFF WORK STATION COMPREHEN 43823 COMBINED COMBINED SIVE 0 PHYSICIAN PHYSICIAN METABOLIC S LAB S LAB PANEL COLLECTIO 16070 COMBINED COMBINED N VENOUS 0 PHYSICIAN PHYSICIAN BLOOD S LAB S LAB VENIPUNCT URE RADIOLOGI 18335 [place] FR[facility] C EXAM 0 MEDICAL EMY CHEST 2 IMAGING VIEWS ASS FRONTAL&L ATERAL O2 CONC 1 E1390 [place] 0 HOME MED HOME MED 85%/>02 EQUIP. EQUIP. CONC AT [facility] FLW RATE PRTBLE E0431 MILDRED MILDRED GASEOUS 0 HOME MED HOME MED O2 SYS EQUIP. EQUIP. RENT; [facility] HUMIDFR&M ASK INJECTION J1940 ERIKA JAMES, 0 DON R DON R FUROSEMID E UP TO 20 MG O2 CONC 1 E1390 [place] 0 HOME MED HOME MED 85%/>02 EQUIP. EQUIP. CONC AT [facility] FLW RATE RADIOLOGI 11658 ERKIA JAMES, C EXAM 0 DON R DON R CHEST 2 VIEWS FRONTAL&L ATERAL PRTBLE E0431 MILDRED BARBERRELL GASEOUS 0 HOME MED HOME MED O2 SYS EQUIP. EQUIP. RENT; [facility] HUMIDFR&M ASK ECG 89009 ERIKA JAMES, ROUTINE 0 DON R DON R ECG W/LEAST 12 LDS W/I&R RADIOLOGI 99591 ERIKA JAMES, C 0 DON R DON R EXAMINATI ON CHEST SINGLE VIEW [facility] 38111 ERIKA JAMES, DISCHARGE 0 DON R DON R DAY MANAGEMEN T 30 MIN/< [facility] 42568 [facility] 0 DON R DON R CARE/DAY 25 MINUTES RADIOLOGI 76551 Kristy VALENTIN EXAM 0 MEDICAL JANE P CHEST 2 IMAGING VIEWS ASSOCIATE FRONTAL&L S ATERAL [facility] 07937 JAMES, [facility] 0 DON R DON R CARE/DAY 25 MINUTES [facility] 12924 JAMES, [facility] 0 DON R DON R CARE/DAY [address] THORAX 58389 [place] FRANCES[facility], 0 MEDICAL SHASHI W/CONTRAS IMAGING T ASSOCIATE MATERIAL S 3D 62234 [place] [facility], RENDERING 0 MEDICAL SHASHI IMAGING W/INTERP& ASSOCIATE POSTPROC S DIFF WORK STATION [facility] 19255 [facility] 0 DON R DON R CARE/DAY 25 MINUTES [facility] 76018 [facility] 0 DON R DON R CARE/DAY 25 MINUTES RADIOLOGI 81126 ERIKA JAMES C 0 DON R DON R EXAMINATI ON CHEST SINGLE VIEW FRONTAL INITIAL 42339 [facility] 0 DON R DON R CARE/DAY 50 MINUTES RADIOLOGI 33053 Kristy OORSCO EXAM 0 MEDICAL SHASHI CHEST 2 IMAGING VIEWS ASSOCIATE FRONTAL&L S ATERAL OPHTH 53678 [facility] 9 DONTE A DONTE A XM&EVAL COMPRHNSV ESTAB PT 1/> OPHTH 39524 [facility], MEDICAL 9 VITREOUS CALLIE W XM&EVAL ASSOCIATE INTERMEDI S O ATE ESTAB PT SCANNING 74881 [facility], OPHTHALMI 9 VITREOUS CALLIE W C IMAGING ASSOCIATE S O POSTERIOR SGM UNI INJECTION J1040 ERIKA JAMES 8 DON R DON R METHYLPRE DNISOLONE ACETATE 80 MG SCANNING 72701 [facility], OPHTHALMI 8 VITREOUS CALLIE W C IMAGING ASSOCIATE S O POSTERIOR SGM UNI OPHTH 51917 [facility], MEDICAL 8 VITREOUS CALLIE W XM&EVAL ASSOCIATE INTERMEDI S O ATE ESTAB PT INJECTION J1040 ERIKA JAMES 8 DON R DON R METHYLPRE DNISOLONE ACETATE 80 MG OPHTH 36035 [facility] 8 DONTE A DONTE A XM&EVAL COMPRHNSV ESTAB PT 1/> SCANNING 05415 [facility] NINI, OPHTHALMI 8 VITREOUS CALLIE W C IMAGING ASSOCIATE S O POSTERIOR SGM UNI OPHTH 09752 [facility], MEDICAL 8 VITREOUS CALLIE W XM&EVAL ASSOCIATE INTERMEDI S O ATE ESTAB PT INJECTION J1040 ERIKA JAMES 8 DON R DON R METHYLPRE DNISOLONE ACETATE 80 MG RADIOLOGI 96476 ERIKA JAMES C EXAM 8 DON R DON R CHEST 2 VIEWS FRONTAL&L ATERAL SCANNING 09140 [facility] & OPHTHALMI 8 VITREOUS VITREOUS C IMAGING ASSOCIATE ASSOCIATE S O S O POSTERIOR SGM UNI OPHTH 93312 [facility] & MEDICAL 8 VITREOUS VITREOUS XM&EVAL ASSOCIATE ASSOCIATE INTERMEDI S O S O ATE ESTAB PT OPHTH 97186 [facility] & MEDICAL 8 VITREOUS VITREOUS XM&EVAL ASSOCIATE ASSOCIATE INTERMEDI S O S O ATE ESTAB PT SCANNING 30422 [facility] & OPHTHALMI 8 VITREOUS VITREOUS C IMAGING ASSOCIATE ASSOCIATE S O S O POSTERIOR SGM UNI INJECTION J1100 ERIKA JAMES, 8 DON R DON R DEXAMETHO SONE SODIUM PHOSPHATE 1 MG Encounters Encounter Start End Date Code Location Performer Type Date OFFICE [id number] [facility] OUTPATIEN 7 7 PHYSICIAN T VISIT S GROUP 25 MINUTES HOSPITAL LUCY - 7 7 [facility] T OFFICE 82818 [facility] OUTPATI[facility] 7 7 PHYSICIAN T VISIT S GROUP 40 MINUTES OFFICE 23249 A C [facility] OUTPATIEN 7 7 [facility] T VISIT PSC 15 MINUTES OFFICE 64267 FATUMA GARRISON OUTPATIRYLEE 7 7 Y OF CK T VISIT [place] 25 HOSPI MINUTES OFFICE 00958 A C [facility] OUTPATIEN 7 7 [facility] [place] T VISIT [facility] 15 MINUTES OFFICE 84933 A Kristy ROY OUTPATIEN 7 7 [facility] T VISIT [facility] 15 MINUTES HOSPITAL LUCY - 7 7 [facility] INPATIENT INC OFFICE 54130 A Kristy ROY OUTPATIEN 7 7 [facility] [place] T VISIT PSC 15 MINUTES OFFICE 83156 A Kristy ROY OUTPATIEN 7 7 [facility] [place] T VISIT PSC 15 MINUTES OFFICE 68469 ELIO POLLOCK OUTPATIEN 6 6 MEDICAL JAM T VISIT [facility] 25 FOUNDATIO MINUTES [facility] LUCY - 6 6 [facility] T OFFICE 93565 [facility] JR OUTPATIEN 6 6 PHYSICIAN RITA T VISIT S GROUP 10 MINUTES HOSPITAL LUCY - 6 6 [facility] T OFFICE 43281 LUCY EVAN OUTPATIEN [address] [facility] VISIT HOSPITAL 10 P MINUTES OFFICE 08512 A Kristy ROY OUTPATIEN 6 6 PILAR PLEITEZ T VISIT PSC 15 MINUTES OFFICE 62985 ELIO POLLOCK OUTPATIEN 6 6 MEDICAL JAM T VISIT SERV 15 FOUNDATIO MINUTES N OFFICE 27126 LUCY EVAN OUTPATIEN 6 6 [facility] 20 HOSPITAL MINUTES P OFFICE 17184 [facility] JR OUTPATIEN 6 6 PHYSICIAN RITA T VISIT S GROUP 15 MINUTES HOSPITAL LUCY - 6 6 [facility] INC T OFFICE 23568 [facility] OUTPATIEN 6 6 PHYSICIAN RITA T NEW 45 S GROUP MINUTES OFFICE 93464 [place] OUTPATIEN 6 6 MEDICAL JAM T VISIT SERV 25 FOUNDATIO MINUTES [facility] LUCY - 6 6 [facility] OUTPATIEN INC T OFFICE 92690 A Kristy FUNEZPATIRYLEE 6 6 [facility] [place] T VISIT PSC 15 MINUTES OFFICE 07449 ELIO POLLOCK OUTPATIEN 6 6 MEDICAL JAM T VISIT SERV 25 FOUNDATIO MINUTES HOSPITAL LUCY - 6 6 [facility] OUTPATIEN INC T EMERGENCY 27051 FATUMA WATTERS DEPT 6 6 Y OF MADALYN VISIT [facility] H[facility] SEVERITY& THREAT FUN OFFICE 05690 A Kristy WEST OUTPATIRYLEE 6 6 [facility] [place] T VISIT PSC 15 MINUTES OFFICE 20056 A C [facility] OUTPATIEN 6 6 PILAR PLEITEZ T VISIT PSC 15 MINUTES OFFICE 18239 [place] [facility] OUTPATIEN 6 6 MEDICAL JAM T VISIT SERV 40 FOUNDATIO MINUT[facility] - 6 6 [facility] IN[facility] - [facility] [id number] [place] [facility] OUTPATIEN 6 6 MEDICAL T VISIT SERV 25 FOUNDATIO MINUTES OFFICE 47468 ELIO POLLOCK OUTPATIEN 6 6 MEDICAL JAM T VISIT SERV 15 FOUNDATIO MINUTES [facility] LUCY - 5 5 [facility] OUT[facility]IEN [facility] - 5 5 [facility] - 5 5 [facility] 39072 A C FIELD AMB OUTPATIEN 5 5 PILAR PLEITEZ T VISIT PSC 15 MINUTES OFFICE 94374 A C FIELD AMB OUTPATIEN 4 4 PILAR PLEITEZ T VISIT PSC 15 MINUTES [facility] LUCY - 4 4 [facility]UC[facility] - 4 4 [facility] - 4 4 [facility] 23671 FIELD AMB FIELD AMB OUTPATIEN 4 4 T VISIT 15 MINUTES OFFICE 17418 FIELD AMB FIELD AMB OUTPATIEN 3 3 T VISIT 15 MINUTES OFFICE 10313 A C FIELD AMB OUTPATIEN 3 3 PILAR PLEITEZ T NEW 30 PSC MINUTES OFFICE 68017 ERIKA MELENDREZS OUTPATIEN 3 3 DON DON T VISIT 15 MINUTES [facility] - 3 3 [facility] 84215 JAMES JAMES OUTPATIEN 3 3 DON DON T VISIT 15 MINUTES [facility] LUC[facility] - 2 2 [facility] 46231 JAMES JAMES OUTPATIEN 2 2 DON DON T VISIT 15 MINUTES [facility] LUCY - 2 2 [facility] - 2 2 [facility] 92038 ERIKA MELENDREZS OUTPATIEN 2 2 DON DON T VISIT 15 MINUTES OFFICE 48434 JAMES JAMES OUTPATIEN 1 1 DON DON T VISIT 15 MINUTES OFFICE 87557 JAMES JAMES OUTPATIEN 1 1 DON DON T VISIT 15 MINUTES OFFICE 62746 JAMES JAMES OUTPATIEN 1 1 DON DON T VISIT 15 MINUTES OFFICE 59082 JAMES JAMES OUTPATIEN 1 1 DON DON T VISIT 15 MINUTES HOSPITAL [facility]IVERSIT - 0 0 [facility] LUCY - 0 0 [facility] 0 [facility] 93930 ERIKA JAMES OUTPATIEN 0 0 DON R DON R T VISIT 15 MINUTES OFFICE 76748 ERIKA JAMES OUTPATIEN 0 0 DON R DON R T VISIT 25 MINUTES OFFICE 10735 ERIKA JAMES OUTPATIEN 0 0 DON R DON R T VISIT 15 MINUTES OFFICE 76344 ERIKA JAMES OUTPATIEN 8 8 DON R DON R T VISIT 15 MINUTES OFFICE 77085 ERIKA JAMES OUTPATIEN 8 8 DON R DON R T VISIT 15 MINUTES OFFICE 21639 ERIKA JAMES OUTPATIEN 8 8 DON R DON R T VISIT 15 MINUTES OFFICE 03318 ERIKA JAMES OUTPATIRYLEE 8 8 DON R DON R T VISIT 15 MINUTES OFFICE 89083 ERIKA JAMES OUTPATIRYLEE 8 8 DON R DON R T VISIT 15 MINUTES
--- OUTSIDE RECORDS SUMMARY | 2016-12-05 20:05 | External Medical Summary Rpt ---
Author Author , RANDALL PEREIRA Address Unknown Phone [email or web address] 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 Role Phone A Kristy QUEZADA [...] Unavailable ROBBINS JESS, ROBBINS Unavailable Unavailable JESS [facility] Unavailable Unavailable SERVICE, [facility] Unavailable Unavailable SERVICE, [facility] Unavailable Unavailable [...] Unavailable TAYLOR KEYANA, TAYLOR Unavailable Unavailable KEYANA [facility] Un[facility] Un[facility], [facility] Unavailable Unavailable HOSPITAL P, [facility] DONTE RUIZ[facility] Unavailable Unavailable DONTE RUIZ [facility], Unavailable Unavailable [facility] ARMENDARIZ JENNA, ARMENDARIZ JENNA Unavailable Unavailable HUI MIKHAIL, HUI MIKHAIL Unavailable Unavailable BECKY MAR, BECKY Unavailable Unavailable MAR [facility] NINI, CALLIE W, Unavailable Unavailable NINI, CALLIE W [facility] Un[facility] GLENN JR, GLENN JR Unavailable Unavailable GLENN JR DWI, GLENN Unavailable Unavailable JR DWI [facility] Unavailable Unavailable [facility], [facility] JAMES CON, JAMES CON Unavailable [...] PHARM #[id number] [facility] Unavailable Unavailable [id number] # [id number], [facility] [id number] # [id number] TANIYA ABIMAEL, TANIYA ABIMAEL Unavailable [...] RAYMOND RONNY, RAYMOND Unavailable Unavailable RONNY JANENE PLAMA, JANENE Unavailable Unavailable PALMA JANENE MADALYN, JANENE Unavailable Unavailable MADALYN OTTO SUSAN, OTTO Unavailable Unavailable [facility], Unavailable Unavailable [facility] Unavailable [facility] HIEU FRANCO, HIEU Unavailable Unavailable FRANCO [facility], Unavailable [facility]available [facility], Unavailable Unavailable [facility] MARINA NIXON, Unavailable Unavailable MARINA NIXON Purpose Continuity of Care Document - 04-25-2007 through 2016 Problems Code Diagnosis DOS Provider Status 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 10-09-2016 [facility] E785 HYPERLIPIDE 10-04-2016 [facility] UNSPECIFIED GROUP I119 HYPERTENSIV 10-04-2016 [facility] E HEART PHYSICIANS DISEASE GROUP WITHOUT HEART FAILURE 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 J449 CHRONIC 10-04-2016 [facility] OBSTRUCTIVE PHYSICIANS PULMONARY GROUP DISEASE UNS R0600 DYSPNEA 10-04-2016 [facility] UNSPECIFIED PHYSICIANS GROUP R0602 SHORTNESS 09-14-2016 [place] OF [facility]ATH [facility] R918 OTHER 09-14-2016 [place] NONSPECIFIC MEDICAL ABNORMAL IMAGING ASS FINDING OF LUNG FIELD R938 ABNORMAL 09-14-2016 [facility] FIND ON DX [facility] IMAGING OT INC SPEC BODY STRCT R9431 ABNORMAL 09-14-2016 [facility] ELECTROCARD [facility] IOGRAM INC J410 SIMPLE 09-04-2016 A Kristy GARLAND MD PSC BRONCHITIS I4891 UNSPECIFIED 09-02-2016 [facility]IAL HOME FIBRILLATIO MEDICAL N EQUIPME I200 UNSTABLE 08-27-2016 [facility] ANGINA PHYSICIANS GROUP I10 ESSENTIAL 08-25-2016 [facility] P N [id number] [facility] PAIMIUT 08-25-2016 [facility] P ANGINA PECTORIS I272 OTHER 08-25-2016 [facility] HYPERTENSIO N R079 CHEST PAIN 08-25-2016 [place] UNSPECIFIED MEDICAL IMAGING ASS I482 CHRONIC 06-14-2016 A Kristy QUEZADA [facility]IAL [facility] FIBRILLATIO N J9610 CHRONIC 06-14-2016 A Kristy [...] PSC CONGESTIVE HEART FAILURE C9110 CHRONIC 01-11-2016 [facility] 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 R634 ABNORMAL 01-11-2016 [facility] WEIGHT LOSS [facility] INC R1110 VOMITING 01-09-2016 [facility] UNSPECIFIED PHYSICIANS GROUP K828 OTHER 01-02-2016 [place] SPECIFIED MEDICAL DISEASES OF IMAGING ASS GALLBLADDER R630 ANOREXIA 01-02-2016 [facility] K921 MELENA 11-07-2015 [facility]YSIC[facility]ANS GROUP K5710 DIVERTICULO 11-03-2015 [place] SIS SM MEDICAL INTEST W/O IMAGING ASS PERF/ABSC W/O BLEED R195 OTHER FECAL 11-03-2015 [place] [facility] ABNORMALITI IMAGING ASS ES B57609 LYMPHOCYTOS 10-26-2015 [facility] IS PATHOLOGY SYMPTOMATIC LAB NETW J690 PNEUMONITIS 10-26-2015 [facility] DUE TO SERV INHALATION FOUNDATION OF FOOD AND VOMIT Z09 ENC F/U 10-20-2015 A Kristy QUEZADA EXAM AFTR PSC CMPL TX OTH THAN MALIG NEOPLSM B370 CANDIDAL 10-19-2015 [facility] STOMATITIS SERV FOUNDATION R112 NAUSEA WITH 10-19-2015 [facility] VOMITING SERV UNSPECIFIED FOUNDATION I509 HEART 10-15-2015 [facility] FAILURE HOME UNSPECIFIED MEDICAL EQUIPME R531 WEAKNESS 09-20-2015 [facility] 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[facility] R BLOCK SERV [facility] I4510 UNSPECIFIED 09-15-2015 [facility] RIGHT SERV BUNDLE-BRAN FOUNDATION CH BLOCK R001 BRADYCARDIA 09-15-2015 [facility] UNSPECIFIED FOUNDATION B965 PSEUDOMONAS 09-14-2015 [facility] CAUSE OF SERV DZ FOUNDATION CLASSIFIED ELSEWHERE J9600 ACUTE 09-14-2015 [facility] RESPIRATORY SERV FAIL UNS FOUNDATION HYPOXIA/HYP ERCAPNIA J9811 ATELECTASIS 09-14-2015 [facility] X44519 ENCOUNTER 09-14-2015 [facility] SURG SERV AFTERCARE FOUNDATION FLW SURG DIGESTIVE SYS Z049 ENCOUNTER 09-13-2015 [facility] EXAMINATION SERV &OBSERVATIO FOUNDATION N FOR UNS REASON K5900 CONSTIPATIO 09-12-2015 [facility] N SERV UNSPECIFIED FOUNDATION R140 ABDOMINAL 09-10-2015 [place] [facility] DISTENSION SERV GASEOUS FOUNDATION R0989 OTH SPEC SX 09-09-2015 [facility] & SIGNS SERV INVLV THE FOUNDATION CIRC & RESP SYS A419 SEPSIS 09-08-2015 [place] [facility] UNSPECIFIED SERV ORGANISM FOUNDATION E873 ALKALOSIS 09-08-2015 [facility] E876 HYPOKALEMIA 09-08-2015 [facility] J90 PLEURAL 09-08-2015 [place] [facility] EFFUSION SERV NOT FOUNDATION ELSEWHERE CLASSIFIED J9620 ACUTE 09-08-2015 [facility] CHRONIC SERV RESP FAIL FOUNDATION UNS HYPOXIA/HYP ERCAPNIA J984 OTHER 09-08-2015 [facility] DISORDERS SERV OF LUNG FOUNDATION R109 UNSPECIFIED 09-08-2015 [facility] ABDOMINAL SERV PAIN FOUNDATION Z4682 ENCOUNTER 09-08-2015 [facility] ADJUST HOSPI NON-VASCULA R CATHETER 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 SERV UNSPECIFIED FOUNDATION I517 CARDIOMEGAL 09-07-2015 [facility] Y SERV FOUNDATION I5189 OTHER 09-07-2015 [facility] ILL-DEFINED SERV HEART FOUNDATION DISEASES R0902 HYPOXEMIA 09-06-2015 [facility] R0689 OTHER 09-02-2015 [facility] ABNORMALITI SERV ES OF FOUNDATION BREATHING J942 HEMOTHORAX 08-30-2015 [facility] J948 OTHER 08-30-2015 [facility] SPECIFIED SERV PLEURAL FOUNDATION CONDITIONS L538 OTHER 08-30-2015 [facility] SPECIFIED SERV ERYTHEMATOU FOUNDATION S CONDITIONS Z9889 OTHER 08-30-2015 [facility] SPECIFIED SERV POSTPROCEDU FOUNDATION RAL STATES 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 K4030 UNILAT 08-25-2015 [facility] INGUINAL [facility] NGUYEN W/OBST HOSPI W/O GANGRN NOT RECUR K4040 UNILAT 08-25-2015 [place] [facility] IN[facility]INAL SERV NGUYEN FOUNDATION W/GANGREN NOT SPEC RECUR Z7901 CORRECTION 08-25-2015 [facility] CURRENT USE SERV OF FOUNDATION ANTICOAGULA NTS G33765 ELEVATED 08-24-2015 [facility] BLOOD [facility] P UNSPECIFIED K4090 UNILAT 08-24-2015 [place] [facility] INGUINAL SERV NGUYEN W/O FOUNDATION OBST/GANGRE N NOT RECUR K5660 UNSPECIFIED 08-24-2015 [facility] AMBULANCE SERVICE OBSTRUCTION R1031 RIGHT LOWER 08-24-2015 [facility] L08686 PERSONAL 08-24-2015 [facility] 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 J189 PNEUMONIA 08-03-2015 [place] UNSPECIFIED MEDICAL ORGANISM IMAGING ASS J439 EMPHYSEMA 08-03-2015 [place] UNSPECIFIED [facility] INTERNAL MED J929 PLEURAL 08-03-2015 [place] PLAQUE MEDICAL WITHOUT IMAGING ASS ASBESTOS R002 PALPITATION 08-03-2015 [facility] S SERV FOUNDATION R031 NONSPECIFIC 08-03-2015 [facility] LOW SERV BLOOD-PRESS FOUNDATION URE READING R42 DIZZINESS 08-03-2015 [facility] AND SERV GIDDINESS FOUNDATION 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 MED J42 UNSPECIFIED 07-13-2015 [place] CHRONIC MEDICAL BRONCHITIS IMAGING ASS Z7722 CONTACT W/ 07-13-2015 [facility] & SUSPECTED SERV EXPOS [facility] ENVIR TOBACCO SMOKE J40 BRONCHITIS 03-25-2015 [place] NOT MEDICAL SPECIFIED IMAGING ASS ACUTE OR CHRONIC R091 PLEURISY 01-21-2015 [facility] 4280 CONGESTIVE 01-14-2015 [facility] HEART HOME FAILURE MEDICAL UNSPECIFIED EQUIPME 34596 OBSTRUCTIVE 01-14-2015 [facility] WITHOUT EXACERBAT 496 CHRONIC 01-14-[address] [facility] [address] HOME OBSTRUCTION MEDICAL NEC EQUIPME 43524 NUCLEAR 12-28-2014 [facility] SCLEROSIS JAMILAH 47522 OBST 09-06-2014 A Kristy QUEZADA CHRONIC PSC BRONCHITIS W/ACUTE BRONCHITIS 28690 LOSS OF 09-06-2014 A Kristy QUEZADA WEIGHT PSC 70268 OTHER CHEST 09-06-2014 A Kristy QUEZADA PAIN PSC 18998 OBSTRUCTIVE 09-05-2014 [facility] SLEEP HOME APNEA MEDICAL EQUIPME 7242 LUMBAGO 04-01-2014 A Kristy QUEZADA MD PSC V0382 NEED PROPH 04-01-2014 A Kristy QUEZADA VACCINATION PSC AGAINST STREP PNEUMONE 42703 ATRIAL 01-13-2014 [facility] FIBRILLATIO [facility] N INC 08992 REFLUX 01-13-2014 [facility] ESOPHAGITIS [facility] INC 48967 UNS 01-13-2014 [facility] GASTRITIS&G [facility] ASTRODUODIT INC IS W/O MENTION HEMORR 18313 ABDOMINAL 01-13-2014 [facility] PAIN, [facility] GENERALIZED INC V5869 LONG-TERM 01-13-2014 [facility] (CURRENT) [facility] USE OF INC OTHER MEDICATIONS 18258 CHEST PAIN 11-24-2013 [facility] UNSPECIFIED [facility] INC 5110 PLEURISY 10-29-2013 [place] WITHOUT MEDICAL MENTION IMAGING ASS EFFUS/CURRE NT TB 7862 COUGH 10-29-2013 [place] [facility] 91602 INSOMNIA 12-16-2012 A Kristy QUEZADA UNSPECIFIED PSC 57614 OTHER 12-16-2012 A Kristy QUEZADA MALAISE AND PSC FATIGUE 17482 FEVER 05-23-2012 J[facility] UNSPECIFIED DON 14745 WHEEZING 05-23-2012 JAMES DON 1120 CANDIDIASIS 05-21-2012 J[facility] OF MOUTH DON 40534 OTHER 05-21-2012 FRANCESCA DISEASES OF EMY LUNG NOT ELSEWHERE CLASSIFIED 4940 BRONCHIECTA 01-28-2012 [place] SIS WITHOUT MEDICAL ACUTE IMAGING ASS EXACERBATIO N 5119 UNSPECIFIED 01-28-2012 [place] PLEURAL MEDICAL EFFUSION IMAGING ASS 54516 OTHER 01-28-2012 [facility] NONSPECIFIC [facility] ABNORMAL INC FINDING OF LUNG FIELD 85715 OSTEOARTHRO 01-02-2012 JAMES S INVLV MX [place] [address] OBSTRUCTIVE 11-12-2011 [facility] CHRONIC [facility] BRONCHITIS INC WITH EXACERBATIO N 07611 ESOPHAGEAL 11-12-2011 [facility] REFLUX [facility] INC 2859 UNSPECIFIED 10-05-2011 [facility] ANEMIA [facility] INC 5180 PULMONARY 10-05-2011 [place] COLLAPSE [facility]ICAL IM[facility]ING ASS 486 PNEUMONIA, 09-28-2011 [place] ORGANISM MEDICAL UNSPECIFIED IMAGING ASS 5070 PNEUMONITIS 09-28-2011 [place] DUE TO JAM INHALATION OF FOOD OR VOMITUS 39542 SHORTNESS 09-28-2011 [facility] OF BREATH [facility] INC 06756 ABDOMINAL 09-28-2011 [facility] PAIN, MEM [facility] EPIGASTRIC INC V1261 PERSONAL 09-28-2011 [place] HISTORY JAM PNEUMONIA RECURRENT 00141 PNEUMONIA 06-08-2011 JAMES DUE TO DON OTHER SPECIFIED BACTERIA 2724 OTHER AND 05-11-2011 [facility]BIN[facility] UNSPECIFIED PHYSICIANS LA HYPERLIPIDE [place] 2768 HYPOPOTASSE 05-11-2011 [facility]ED [place] PHYSICIANS [place] 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 6019 UNSPECIFIED 05-11-2011 [place] [address] PAIN IN 05-11-2011 COMBINED JOINT, PHYSICIANS MULTIPLE LA SITES 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 5183 PULMONARY 11-28-2009 [facility] A 33573 ACUTE 11-28-2009 [facility] RESPIRATORY SERV FAILURE FOUNDATIO 7856 ENLARGEMENT 11-28-2009 [facility] NODES 7931 NONSPEC 11-28-2009 [facility]ICAL FIND RAD SERV OTH EXAM FOUNDATIO BODY STRUCT LUNG FIELD V1582 PERS HX 11-28-2009 [facility] TOBACCO USE [facility] PRESENTING [facility]ZAR[facility] V7282 PRE-OPERATI 11-28-2009 [facility] VE SERV RESPIRATORY FOUNDATIO EXAMINATION 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 74848 DYSPHAGIA 11-18-2009 [place] UNSPECIFIED MEDICAL IMAGING ASS 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, 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 12434 OSTEOARTHRO 08-23-2009 ERIKA, SIS UNSPEC DON R WHETHER GEN/LOC LOWER LEG 18133 OSTEOARTHRO 08-23-2009 ERIKA, S UNSPEC DON R GEN/LOC OTH SPEC SITES 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 UNSPECIFIED 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 07-20-2008 RET[facility] & 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 65032 EXUDATIVE 07-20-2008 [facility] & SENILE [facility]ITREOUS MACULAR ASSOC[facility]ATES DEGENERATIO O N OF RETINA 12377 CRYSTALLINE 07-20-2008 RETINA & DEPOSITS VITREOUS IN VITREOUS ASSOCIATES O 4610 ACUTE 02-27-2008 JAMES, MAXILLARY DON R SINUSITIS 4659 ACUTE URIS 02-27-2008 ERIKA, OF DON R UNSPECIFIED SITE 8472 LUMBAR 11-14-2007 ERIKA, SPRAIN AND DON R STRAIN 4660 ACUTE 08-02-2007 ERIKA, BRONCHITIS DON R 4871 INFLUENZA 07-04-2007 ERIKA, WITH OTHER DON R RESPIRATORY MANIFESTATI ONS 71503 PAIN IN 04-25-2007 ERIKA, JOINT, DON R SHOULDER REGION 75046 UNSPECIFIED 04-25-2007 ERIKA, SYNOVITIS DON R AND [...] ET 03 93 8 # 03 93 WV 00 04 04 00 12 6 RI [...] YOUR YOUR SM VOL 7 PHARMACY PH[facility] PNEUM[facility] NEBULIZR DISPBL ECG 40637 [facility] ROUTINE 7 PHYSICIAN ECG S GROUP W/LEAST 12 LDS [place] [address] [facility] AYALA UREA 7 [facility] NITROGEN INC INC QUANTITAT ARCENIO CREATININ 48186 [facility] A[facility]AL[facility] E BLOOD 7 [facility] INC INC CT THORAX 38655 [facility] AYALA 7 [facility] W/CONTRAS INC INC T MATERIAL ALBUTEROL J7620 YOUR YOUR TO 2.5 7 PHARMACY PHARMACY [facility] IPRATROPI UM BROM TO 0.5 MG ADMN SET A7003 YOUR YOUR SM VOL 7 PHARMACY [facility] PNEUMAT NEBULIZR DISPBL ALBUTEROL J7620 A C A C TO 2.5 7 PILAR QUEZADA MD MG & PSC PSC IPRATROPI UM BROM TO 0.5 MG ECG 40325 [facility] ROUTINE 7 PHYSICIAN ECG S GROUP W/LEAST 12 LDS I&R ONLY O2 CONC 1 E1390 [facility] 7 HOME HOME 85%/>02 MEDICAL MEDICAL CONC AT EQUIPME EQUIPME [facility] FLW RATE R & L HRT 05033 [facility] CATH 7 PHYSICIAN WINJX HRT S GROUP ART& L VENTR IMG RADIOLOGI 55671 [facility] 7 MEDICAL EXAMINATI IMAGING ON CHEST ASS SINGLE VIEW FRONTAL ECG 61494 L[facility] ELIZABETH JR ROUTINE 7 [facility] W/LEAST P 12 LDS I&R ONLY ALBUTEROL J7620 YOUR YOUR TO 2.5 7 PHARMACY PHARMACY [facility] IPRATROPI UM BROM TO 0.5 MG ADMN SET A7003 YOUR YOUR SM VOL 7 PHARMACY PH[facility]Y [facility] PNEUMAT NEBULIZR DISPBL O2 CONC 1 E1390 [facility] LEVY [facility] 7 HOME HOME 85%/>02 MEDICAL MEDICAL CONC AT EQUIPME EQUIPME [facility] FLW RATE O2 CONC 1 E1390 [facility] 7 HOME HOME 85%/>02 MEDICAL MEDICAL CONC [facility] E[facility] 47588 [facility] 7 MEDICAL CARE/DAY SERV 25 FOUNDATIO MINUTES N RADIOLOGI 59129 [facility] C EXAM 7 MEDICAL MEDICAL CHEST 2 IMAGING IMAGING VIEWS ASS ASS FRONTAL&L ATERAL O2 CONC 1 E1390 [facility] 7 HOME HOME 85%/>02 MEDICAL MEDICAL CONC [facility] E[facility] O2 CONC 1 E1390 [facility] [place] 6 HOME HOME 85%/>02 MEDICAL MEDICAL CONC [facility] E[facility] O2 CONC 1 E1390 [facility] 6 HOME HOME 85%/>02 MEDICAL MEDICAL CONC AT [facility] PHRM Q0513 YOUR YOUR DISPENSIN 6 PHARMACY PHARMACY [facility] INHALATIO N RX; PER 30 DAYS ALBUTEROL J7620 YOUR YOUR TO 2.5 6 PHARMACY PHARMACY [facility] IPRATROPI UM BROM TO 0.5 MG ADMN SET A7003 YOUR YOUR SM VOL 6 PHARMACY PHARMACY NONFILTR [facility] PNEUMAT NEBULIZR DISPBL O2 CONC 1 E1390 [facility] 6 HOME HOME 85%/>02 MEDICAL MEDICAL CONC [facility] E[facility] G0463 [facility] AYALA OUTPATIEN 6 MEM HOSP [facility]OS[facility] T CLIN INC INC VISIT ASSESS & MGMT PT O2 CONC 1 E1390 [facility] 6 HOME HOME 85%/>02 MEDICAL MEDICAL CONC [facility] [place] [address] L[facility] A[facility]AL[facility] ABDOMEN 6 MEM HOSP [facility] W/CONTRAS INC INC T MATERIAL BLOOD 15999 [facility] A[facility]AL[facility] COUNT 6 MEM HOS[facility]OS[facility] COMPLETE INC INC AUTO&AUTO DIFRNTL WBC COLLECTIO 87415 [facility] N VENOUS 6 MEM HOSP [facility]OS[facility] BLOOD INC INC VENIPUNCT URE COMPREHEN 07076 [facility] SIVE 6 MEM HOSP [facility]OS[facility] METABOLIC INC INC PANEL LOCM Q9967 [facility] AYALA 300-399 6 MEM HOSP [facility]OS[facility] MG/ML INC INC IODINE CONCENTRA TION PER ML ANES 51732 [facility] UPPER GI 6 ANESTH PALMA ENDOSCOPY OF THE PROXIMAL BLUE TO DUODENUM O2 CONC 1 E1390 [facility] [place] 6 HOME HOME 85%/>02 MEDICAL MEDICAL CONC AT EQUIPME [facility] FLW RATE RADEX 67401 L[facility] AYALA UPPER GI 6 MEM HOSP MEM HOSP W/WO INC INC GLUCAGON/ DELAY IMAGES W/KUB O2 CONC 1 E1390 [facility] [place] 6 HOME MAR 85%/>02 MEDICAL CONC AT [facility] FLW RATE RADEX 07590 TEX FONTANEZ ALL UPPER GI 6 MEDICAL W/WO IMAGING GLUCAGON/ ASS DELAY IMGES W/O KUB COLLECTIO 90768 [facility] AYALA N VENOUS 6 MEM HOSP [facility] BLOOD INC INC VENIPUNCT URE FLOW 26044 [facility] AYAL[facility] CYTOMETRY 6 MEM HOSP MEM HOSP CELL INC INC SURF MARKER TECHL ONLY EA FLOW 16552 [facility] A[facility]AL[facility] CYTOMETRY 6 MEM HOSP MEM HOS[facility] CELL INC INC SURF MARKER TECHL ONLY 1ST FLOW 02543 MOLECULAR MOLECULAR CYTOMETRY 6 [facility] PATHOLOGY PATHOLOGY 2-8 LAB NETW LAB NETW MARKERS NEBULIZER E0570 [facility] LEVY WITH 6 HOME HOME COMPRESSO MEDICAL MEDICAL R EQUIPME EQUIPME O2 CONC 1 E1390 [facility] [place] 6 HOME KEY 85%/>02 MEDICAL CONC AT [facility] FLW RATE WALKER E0143 [facility] FOLDING 6 WHEELED ADJUSTABL E/FIXED HEIGHT SEAT E0156 [facility] ATTACHMEN 6 T WALKER ECG 81362 [place] TANIYA ABIMAEL ROUTINE 6 MEDICAL ECG SERV W/LEAST FOUNDATIO 12 LDS N I&R ONLY ECG 55926 [place] PELAE[facility] ROUTINE 6 MEDICAL NAN ECG SERV W/LEAST FOUNDATIO 12 LDS N I&R ONLY RADIOLOGI 69087 [place] JAMES CON C 6 MEDICAL EXAMINATI SERV ON CHEST FOUNDATIO SINGLE N VIEW FRONTAL SBSQ 52880 [place] [facility] 6 MEDICAL KEYANA CARE/DAY SERV 25 FOUNDATIO MINUTES N RADIOLOGI 54227 [place] [facility] 6 MEDICAL AYA MAR EXAMINATI SERV ON CHEST FOUNDATIO SINGLE N VIEW FRONTAL SBSQ 23736 [place] [facility] 6 MEDICAL KEYANA CARE/DAY SERV 15 FOUNDATIO MINUTES N SBSQ 13851 [facility] 6 MEDICAL KEYANA CARE/DAY SERV 15 FOUNDATIO MINUTES N RADIOLOGI 06709 [place] [facility] 6 MEDICAL EXAMINATI SERV ON CHEST FOUNDATIO SINGLE N VIEW FRONTAL SBSQ 88453 [facility] 6 MEDICAL CARE/DAY SERV 25 FOUNDATIO MINUTES N RADIOLOGI 60157 [place] [facility] C 6 MEDICAL EXAMINATI SERV ON CHEST FOUNDATIO SINGLE N VIEW FRONTAL RADIOLOGI 76089 [place] [facility] C 6 MEDICAL EXAMINATI SERV ON CHEST FOUNDATIO SINGLE N VIEW FRONTAL RADEX 15313 [place] [facility] 1 6 MEDICAL SUSAN SERV ANTEROPOS FOUNDATIO TERIOR N VIEW ECG 66342 [facility] ROUTINE 6 MEDICAL ECG SERV W/LEAST FOUNDATIO 12 LDS N I&R ONLY SBSQ 72400 [place] [facility] 6 MEDICAL CARE/DAY SERV 25 FOUNDATIO MINUTES N CRITICAL 34587 [place] [facility] 6 MEDICAL ILL/INJUR SERV ED FOUNDATIO PATIENT N INIT 30-74 MIN ECG 92865 [place] [facility] ROUTINE 6 MEDICAL ECG SERV W/LEAST FOUNDATIO 12 LDS N I&R ONLY RADEX 55329 [facility] ABDOMEN 1 6 Y [facility] CAR [facility] TERIOR VIEW RADIOLOGI 56436 [place] [facility] C 6 MEDICAL EXAMINATI SERV ON CHEST FOUNDATIO SINGLE N VIEW FRONTAL CT THORAX 89972 [place] J[facility] CON 6 MEDICAL W/CONTRAS SERV T FOUNDATIO MATERIAL N RADIOLOGI 95474 [place] [facility] C 6 MEDICAL AYA MAR EXAMINATI SERV ON CHEST FOUNDATIO SINGLE N VIEW FRONTAL RADEX 61785 [facility] ABDOMEN 1 6 Y OF CAR [place] [address] [place] REYEZ CLEO ABDOMEN & 6 MEDICAL PELVIS SERV W/CONTRAS FOUNDATIO T N MATERIAL SBSQ 36508 [place] [facility] 6 MEDICAL CARE/DAY SERV 25 FOUNDATIO MINUTES N INITIAL 91960 [place] [facility] 6 MEDICAL SUN KAYODE CARE/DAY SERV 30 FOUNDATIO MINUTES N ECHO 66203 [place] MILDRED TTHR R-T 6 MEDICAL ERIKA 2D SERV W/WOM-MOD FOUNDATIO E COMPL N SPEC&COLR D SBSQ 85422 [facility] 6 MEDICAL AND CARE/DAY SERV 25 FOUNDATIO MINUTES N RADIOLOGI 66601 [place] JAMES CON C 6 MEDICAL EXAMINATI SERV ON CHEST FOUNDATIO SINGLE N VIEW FRONTAL RADEX ABD 15108 [place] PAULA COMPL 6 MEDICAL JURGEN AQT ABD SERV ANNEL W/S/E/D FOUNDATIO VIEWS 1 N VIEW CH ECG 84592 [facility] ROUTINE 6 MEDICAL ECG SERV W/LEAST FOUNDATIO 12 LDS N I&R ONLY SBSQ 52049 [facility] 6 MEDICAL AND CARE/DAY SERV 25 FOUNDATIO MINUTES N RADIOLOGI 25564 [place] J[place] CON C 6 MEDICAL EXAMINATI SERV ON CHEST FOUNDATIO SINGLE N VIEW FRONTAL ECG 77997 [facility] ROUTINE 6 MEDICAL ECG SERV W/LEAST FOUNDATIO 12 LDS N I&R ONLY RADIOLOGI 03488 [place] JAMES CON C 6 MEDICAL EXAMINATI SERV ON CHEST FOUNDATIO SINGLE N VIEW FRONTAL RADIOLOGI 44008 [place] WILLIEK C 6 MEDICAL AYA MAR EXAMINATI SERV ON CHEST FOUNDATIO SINGLE N VIEW FRONTAL RADEX 39812 UNIVERS[facility] SHANELL ABDOMEN 1 6 Y OF TEX ANTEROPOS HOSPI TERIOR VIEW RADIOLOGI 24534 [place] ROBBINS C 6 MEDICAL JESS EXAMINATI SERV ON CHEST FOUNDATIO SINGLE N VIEW FRONTAL RADEX 83864 [place] ZAGUROVSK ABDOMEN 1 6 MEDICAL AYA MAR SERV ANTEROPOS FOUNDATIO TERIOR N VIEW CT THORAX 66568 [place] ARMENDARIZ JENNA 6 MEDICAL W/CONTRAS SERV T FOUNDATIO MATERIAL N RADIOLOGI 38184 [place] ZAGUROVSK C 6 MEDICAL AYA MAR EXAMINATI SERV [place] [address] [place] AYOOB AND ABDOMEN & 6 MEDICAL PELVIS SERV W/CONTRAS FOUNDATIO T N MATERIAL RADEX 31952 [facility]ERS[facility] SHANELL ABDOMEN 1 6 Y [place] [facility] [place] RADEX 97186 [facility] SHANELL ABDOMEN 1 6 Y [facility] [place] [facility] TERIOR VIEW SBSQ 15738 [facility] 6 MEDICAL AND CARE/DAY SERV 25 FOUNDATIO MINUTES N RADIOLOGI 64701 [place] DELL CAR C 6 MEDICAL EXAMINATI SERV ON CHEST FOUNDATIO SINGLE N VIEW FRONTAL SBSQ 77292 [place] [address] MEDICAL AND CARE/DAY SERV 25 FOUNDATIO MINUTES N ECG 40831 [place] PELAEZ ROUTINE 6 MEDICAL NAN ECG SERV W/LEAST FOUNDATIO 12 LDS N I&R ONLY RADIOLOGI 58276 [place] JAMES CON C 6 MEDICAL EXAMINATI SERV ON CHEST FOUNDATIO SINGLE N VIEW FRONTAL ECG 05460 [place] HUI MIKHAIL ROUTINE 6 MEDICAL ECG SERV W/LEAST FOUNDATIO 12 LDS N I&R ONLY RPR 1ST 45929 [facility] INGUN 6 MEDICAL RONNY HRNA AGE SERV 6 YRS/> FOUNDATIO INCARCERA N KISHOR ANESTHESI 63299 [facility] BET A HERNIA 7 Y OF REPAIR [facility] NOS ARTL 53513 [facility] OF Y OF [facility] [facility] H[facility] SFUSION SPX PRQ SBSQ 30240 [place] 6 MEDICAL RONNY CARE/DAY SERV 25 FOUNDATIO MINUTES N LEVEL III 71268 [place] HIEU SURG 6 MEDICAL FRANCO PATHOLOGY SERV FOUNDATIO GROSS&[place] [address] [place] [facility] 6 MEDICAL FRANCO PATHOLOGY SERV FOUNDATIO GROSS&JESS N ROSCOPIC EXAM COMPREHEN 86063 LUCY A[facility]ALA SIVE 6 [facility] [place] [address] LUCY AYALA AMYLASE 6 [facility] INC INC CREATINE 06113 LUCY AYALA KINASE MB 6 [facility] FRACTION INC INC ONLY INJECTION J2405 LUCY A[facility]ALA 6 [facility] ONDANSETR INC INC ON HCL PER 1 MG INJ J2543 LUCY AYALA PIPERACIL 6 [facility] YONATHAN INC INC SOD/TAZOB ACTAM SOD [address] G/[address] [facility] 6 MEDICAL CHR CARE/DAY SERV 50 FOUNDATIO MINUTES N RADIOLOGI 04303 LUCY AYALA C 6 [facility] EXAMINATI INC INC ON CHEST SINGLE VIEW FRONTAL THER 94506 LUCY AYALA PROPH/DX 6 [facility] NJX EA INC INC SEQL IV PUSH SBST/DRUG FAC ECG 64103 LUCY AYALA ROUTINE 6 [facility] ECG INC INC W/LEAST 12 LDS TRCG ONLY W/O I&[place] [address] [place] F[place] ALL ABDOMEN & 6 MEDICAL PELVIS IMAGING W/O ASS CONTRAST MATERIAL ECG 77657 LUCY BEVERLY ROUTINE 6 [facility] W/LEAST P 12 LDS I&[place] [address] LUCY AYALA INFUSION 6 [facility] THERAPY/P INC INC ROPHYLAXI S /DX 1ST TO 1 [place] [address] LUCY AYALA TROPONIN 6 [facility] QUANTITAT INC INC ARCENIO BLOOD 33370 LUCY AYALA COUNT 6 [facility] COMPLETE INC INC AUTO&AUTO DIFRNTL WBC GROUND A0425 [facility] MILEAGE 6 AMBULANCE AMBULANCE PER SERVICE SERVICE STATUTE MILE CREATINE 45583 LUCY AYALA KINASE 6 [facility] [place] [address] LUCY AYALA LIPASE 6 [facility] INC INC AMBULANCE A0429 [facility] SERVICE 6 AMBULANCE AMBULANCE BL SERVICE SERVICE EMERGENCY TRANSPORT BLOOD 15775 Darnell Wagner KIRILL JENNA COUNT 6 PILAR PLEITEZ COMPLETE PSC AUTO&AUTO DIFRNTL WBC COLLECTIO 50252 Darnell Wagner KIRILL JENNA N VENOUS 6 PILAR PLEITEZ BLOOD PSC VENIPUNCT URE NEBULIZER E0570 [facility] WITH 6 HOME HOME COMPRESSO MEDICAL MEDICAL R EQUIPME EQUIPME INITIAL [address] CARE/DAY INTERNAL 70 MED MINUTES ECG 38214 [facility] ROUTINE 6 [facility] W/LEAST P 12 LDS I&R ONLY RADIOLOGI 80977 TEX Wagner 6 MEDICAL EXAMINATI IMAGING ON CHEST ASS SINGLE VIEW FRONTAL NEBULIZER E0570 MILDRED LEVY WITH 6 HOME HOME COMPRESSO MEDICAL MEDICAL R EQUIPME EQUIPME PHRM Q0513 YOUR YOUR DISPENSIN 6 PHARMACY PHARMACY G [employer] INHALATIO N RX; PER 30 DAYS ALBUTEROL J7620 YOUR YOUR TO 2.5 6 PHARMACY PHARMACY [employer] IPRATROPI UM BROM TO 0.5 MG ADMN SET A7003 YOUR YOUR SM VOL 6 PHARMACY PHARMACY NONFILTR [employer] PNEUMAT NEBULIZR DISPBL COLLECTIO 84810 LUCY AYALA N VENOUS 6 [facility] BLOOD INC INC VENIPUNCT URE COMPREHEN 02199 LUCY AYALA SIVE 6 [facility] METABOLIC INC INC PANEL BLOOD 86975 LUCY AYALA COUNT 6 [facility] COMPLETE INC INC AUTO&AUTO DIFRNTL WBC RADIOLOGI 28616 LUCY Wagner EXAM 6 [facility] CHEST 2 INC INC VIEWS FRONTAL&L ATERAL RADIOLOGI 28618 TEX Wagner 6 MEDICAL EXAMINATI IMAGING ON [...] TO 2.5 5 PHARMACY PHARMACY [facility] IPRATROPI UM BROM TO 0.5 MG RADIOLOGI 33423 [facility] EXAM 5 MEDICAL CHEST 2 IMAGING VIEWS ASS FRONTAL&L ATERAL CT THORAX 68212 [facility] ALL 5 MEDICAL W/CONTRAS IMAGING T ASS MATERIAL RADIOLOGI 84104 [facility] ALL C EXAM 5 MEDICAL CHEST 2 IMAGING VIEWS ASS FRONTAL&L ATERAL ALBUTEROL J7620 YOUR YOUR TO 2.5 5 PHARMACY PHARMACY [employer] IPRATROPI UM BROM TO 0.5 MG PHARM G0333 YOUR YOUR DISPEN 5 PHARMACY PHARMACY [employer] RX; INITIAL 30-DAY SUPPLY NEBULIZER E0570 MILDRED [place] WITH 5 HOME HOME COMPRESSO MEDICAL MEDICAL R EQUIPME EQUIPME CATARACT 74221 [facility] REMOVAL 5 JAMILAH JAMILAH INSERTION [...] EQUIPME EQUIPME ARWAY PRESS DEVICE EA POLYSOM 72247 NEERAJ KERN MAR 6/>YRS 4 SLEEP 4/> NEUROSCIE ADDL NCES CENT AMA ATTND POLYSOM 30246 LUCY AYALA 6/>YRS 4 [facility] SLEEP 4/> INC INC ADDL AMA ATTND IMC/IMC G0461 LUCY AYALA PER 4 [facility] SPECIMEN; INC INC 1ST SNGL/MPX ANTIBODY STN SPECIAL 00929 LUCY AYALA STAIN 4 [facility] GROUP 1 INC INC MICROORGA NISMS I&R SPCL STN 71022 LUCY AYALA 2 I&R 4 [facility] EXCPT INC INC MICROORG/ ENZYME/[place] [address] LUCY AYALA INFUSION 4 [facility] THERAPY INC INC PROPHYLAX IS/[place] [address] LUCY AYALA SURG 4 [facility] PATHOLOGY INC INC GROSS&[place] [address] LUCY AYALA INFUSION 4 [facility] THERAPY/P INC INC ROPHYLAXI S /DX 1ST TO 1 HR SPMTRY 66387 LUCY AYALA W/VC 4 [facility] EXPIRATOR INC INC Y ALFREDO W/WO MXML VOL VNTJ ECHO 70612 LUCY AYALA TTHRC R-T 4 [facility] 2D INC INC W/WOM-MOD E COMPL SPEC&COLR D MYOCARDIA 01203 TEX Parra 4 MEDICAL EMY PERFUSION IMAGING PLANAR ASS MULTIPLE STUDIES CV STRS [address] [facility] TST 4 XERS&/OR RX CONT ECG W/O I&R CV STRS 09085 GLENN ELIZABETH JR TST 4 DWI DWI XERS&/OR RX CONT ECG I&R ONLY MYOCARDIA 98844 LUCY AYALA L SPECT 4 [facility] MULTIPLE INC INC STUDIES RADIOLOGI 35347 TEX MA C EXAM 4 MEDICAL EMY [...] DON DON CEFAZOLIN SODIUM 500 MG RADIOLOGI 51292 LUCY AYALA C EXAM 3 [facility] [...] EQUIPME EQUIPME FLWMTR HUMIDFR&M ASK CT THORAX 19189 [facility] W/O 2 MEDICAL EMY CONTRAST IMAGING MATERIAL ASS 3D 66858 [facility] RENDERING 2 MEDICAL EMY IMAGING W/INTERP& ASS POSTPROC DIFF WORK STATION PRTBLE E0431 MILDRED MILDRED GASEOUS 2 HOME HOME O2 SYS MEDICAL MEDICAL RENT; EQUIPME EQUIPME FLWMTR HUMIDFR&M ASK TOBACCO 88876 JAMES JAMES USE 2 DON DON CESSATION INTERMEDI ATE 3-10 MINUTES PRTBLE E0431 MILDRED MILDRED GASEOUS 2 HOME HOME O2 SYS MEDICAL MEDICAL RENT; EQUIPME EQUIPME FLWMTR HUMIDFR&M ASK PRTBLE E0431 MILDRED MILDRED GASEOUS 2 HOME HOME O2 SYS MEDICAL MEDICAL RENT; EQUIPME EQUIPME FLWMTR HUMIDFR&M ASK SPMTRY 01725 MARIS MAGAÑAICK W/VC 2 JAM JAM EXPIRATOR Y ALFREDO W/WO MXML VOL VNTJ RADIOLOGI 22661 LUCY Wagner EXAM 2 [facility] CHEST 2 INC INC VIEWS FRONTAL&L ATERAL PRTBLE E0431 MILDRED MILDRED GASEOUS 2 HOME HOME O2 SYS MEDICAL MEDICAL RENT; EQUIPME EQUIPME FLWMTR HUMIDFR&M ASK BLOOD 70061 LUCY AYALA GASES ANY 2 [facility] INC INC COMBINATI ON PH PCO2 PO2 CO2 HCO3 GLUCOSE 47282 LUCY AYALA BODY 2 [facility] FLUID INC INC OTHER THAN BLOOD IRON 10183 LUCY AYALA BINDING 2 [facility] CAPACITY INC INC LACTATE 31055 LUCY AYALA DEHYDROGE 2 [facility] NASE LDH INC INC PROTEIN 14981 LUCY AYALA XCPT 2 [facility] REFRACTOM INC INC ETRY SERUM PLASMA/WH L BLD SMR PRIM 79546 LUCY AYALA SRC 2 [facility] GRAM/GIEM INC INC SA STAIN BCT FUNGI/VAHID L RADIOLOGI 39425 LUCY Wagner EXAM 2 [facility] CHEST 2 INC INC VIEWS FRONTAL&L ATERAL CT THORAX 94088 ULCY AYALA W/O 2 [facility] CONTRAST INC INC MATERIAL NONINVASI 44879 LUCY AYALA VE 2 [facility] EAR/PULSE INC INC OXIMETRY SINGLE DETER CYTP 57991 PATHOLOGY PATHOLOGY SLCTV 2 & & CELL CYTOLOGY CYTOLOGY ENHANCEME LAB LAB NT INTERPJ XCPT C/V CYANOCOBA 18220 LUCY AYALA BETTIE 2 [facility] VITAMIN INC INC B-12 THORACENT 51664 LUCY AYALA ESIS 2 [facility] PUNCTURE INC INC PLEURAL CAVITY ASPIRATIO N CUL BACT 91361 LUCY AYALA XCPT 2 [facility] URINE INC INC BLOOD/STO OL AEROBIC ISOL CULTURE 70505 LUCY AYALA BACTERIAL 2 [facility] ANY INC INC SOURCE ANAEROBIC ISO&ID CULTURE 10072 LUCY AYALA TUBERCLE/ 2 [facility] OTH INC INC ACID-FAST BACILLI ANY ISOL TISS FRED 21188 LUYC AYALA SLIDE 2 [facility] SAMPS INC INC SKN/HR/NL S FNGI/[place] [address] LUCY AYALA GUIDANCE 2 [facility] NEEDLE INC INC PLACEMENT COLLECTIO 93957 LUCY LUCY N VENOUS 2 [facility] BLOOD INC INC VENIPUNCT URE CELL 92053 LUCYJOAN BOBON COUNT 2 [facility] MISC BODY INC INC FLUIDS W/DIFFERE NTIAL COUNT CARBOXYHE 43224 LUCY AYALA MOGLOBIN 2 [facility] [place] [address] LUCY LUCY IRON 2 [facility] INC INC SPUTUM 50205 LUCY AYALA OBTAINING 2 [facility] SPEC INC INC AEROSOL INDUCED TX SPX ECG 27484 LUCY AYALA ROUTINE 2 [facility] ECG INC INC W/LEAST 12 LDS TRCG ONLY W/O I&R ECG 91697 RUSH BEVERLY ROUTINE 2 JENNA JENNA ECG W/LEAST 12 LDS I&R ONLY CT THORAX 01914 LUCY LUCY W/O 2 [facility] CONTRAST INC INC MATERIAL 3D 03927 [place] FRANCES[facility] RENDERING 2 MEDICAL EMY IMAGING W/INTERP& ASS POSTPROC DIFF WORK STATION PRTBLE E0431 MILDRED BARBERRELL GASEOUS 2 HOME HOME O2 SYS MEDICAL MEDICAL RENT; EQUIPME EQUIPME FLWMTR HUMIDFR&M ASK PRTBLE E0431 MILDR[place] GASEOUS 2 HOME HOME O2 SYS MEDICAL MEDICAL RENT; EQUIPME EQUIPME FLWMTR HUMIDFR&M ASK SPMTRY 45453 LUCY AYALA W/VC 2 [facility] EXPIRATOR INC INC Y ALFREDO W/WO MXML VOL VNTJ PRTBLE E0431 MILDRED [place] GASEOUS 2 HOME HOME O2 SYS MEDICAL MEDICAL RENT; EQUIPME EQUIPME FLWMTR HUMIDFR&M ASK PRTBLE E0431 MILDREDTEJINDER BARBER[place] GASEOUS 2 HOME HOME O2 SYS MEDICAL MEDICAL RENT; EQUIPME EQUIPME FLWMTR HUMIDFR&M ASK RADIOLOGI 45390 ERIKA JAMES C EXAM 2 DON DON CHEST 2 VIEWS FRONTAL&L ATERAL CT THORAX 02472 [place] FRANCES[place] 2 MEDICAL EMY W/CONTRAS IMAGING T ASS MATERIAL COMPREHEN 03225 COMBINED COMBINED SIVE 2 PHYSICIAN PHYSICIAN METABOLIC S LA S LA PANEL BLOOD 09676 COMBINED COMBINED COUNT 2 PHYSICIAN PHYSICIAN COMPLETE S LA S LA AUTO&AUTO DIFRNTL WBC LIPID 97997 COMBINED COMBINED PANEL 2 PHYSIC[place] [address] COMBINED COMBINED PROSTATE 2 PHYSICIAN PHYSICIAN SPECIFIC [...] O2 SYS MEDICAL MEDICAL RENT; EQUIPME EQUIPME [facility] HUMIDFR&M ASK PRTBLE E0431 MILDRED LEVY GASEOUS 1 HOME HOME O2 SYS MEDICAL MEDICAL RENT; EQUIPME EQUIPME [facility] HUMIDFR&M ASK O2 CONC 1 E1390 MILDRED [facility] [facility] 1 HOME HOME 85%/>02 MEDICAL MEDICAL CONC AT EQUIPME EQUIPME [facility] FLW RATE O2 CONC 1 E1390 [place] HOME MED HOME MED 85%/>02 EQUIP. L EQUIP. L CONC AT [facility] FLW RATE PRTBLE E0431 MILDRED LEVY GASEOUS 1 HOME MED HOME MED O2 SYS EQUIP. L EQUIP. L RENT; [facility] HUMIDFR&M ASK PRTBLE E0431 MILDRED LEVY GASEOUS 1 HOME MED HOME MED O2 SYS EQUIP. L EQUIP. L RENT; [facility] HUMIDFR&M ASK O2 CONC 1 E1390 MILDRED [facility] 1 HOME MED HOME MED 85%/>02 EQUIP. L EQUIP. L CONC AT [facility] FLW RATE O2 CONC 1 E1390 MILDRED [facility] [facility] 1 HOME MED HOME MED 85%/>02 EQUIP. L EQUIP. L CONC AT [facility] FLW RATE PRTBLE E0431 MILDRED LEVY GASEOUS 1 HOME MED HOME MED O2 SYS EQUIP. L EQUIP. L RENT; [facility] HUMIDFR&M [facility] PRTBLE E0431 MILDRED LEVY GASEOUS 1 HOME MED HOME MED O2 SYS EQUIP. L EQUIP. L RENT; [facility] HUMIDFR&M ASK O2 CONC 1 E1390 MILDRED [facility] [facility] 1 HOME MED HOME MED 85%/>02 EQUIP. L EQUIP. L CONC AT [facility] FLW RATE O2 CONC 1 E1390 MILDRED [facility] [facility] 1 HOME MED HOME MED 85%/>02 EQUIP. L EQUIP. L CONC AT [facility] FLW RATE PRTBLE E0431 MILDRED LEYV GASEOUS 1 HOME MED HOME MED O2 SYS EQUIP. L EQUIP. L RENT; [facility] HUMIDFR&M ASK PRTBLE E0431 MILDRED [place] GASEOUS 0 HOME MED HOME MED O2 SYS EQUIP. L EQUIP. L RENT; [facility] HUMIDFR&M ASK O2 CONC 1 E1390 [place] 0 HOME MED HOME MED 85%/>02 EQUIP. L EQUIP. L CONC AT [facility] FLW RATE O2 CONC 1 E1390 [place] 0 HOME MED HOME MED 85%/>02 EQUIP. L EQUIP. L CONC AT [facility] FLW RATE PRTBLE E0431 MILDRED [place] GASEOUS 0 HOME MED HOME MED O2 SYS EQUIP. L EQUIP. L RENT; [facility] HUMIDFR&M ASK PRTBLE E0431 [place] GASEOUS 0 HOME MED HOME MED O2 SYS EQUIP. L EQUIP. L RENT; [facility] HUMIDFR&M ASK O2 CONC 1 E1390 [place] 0 HOME MED HOME MED 85%/>02 EQUIP. L EQUIP. L CONC AT [facility] FLW RATE O2 CONC 1 E1390 [place] 0 HOME MED HOME MED 85%/>02 EQUIP. L EQUIP. L CONC AT [facility] FLW RATE PRTBLE E0431 MILDRED MILDRED GASEOUS 0 HOME MED HOME MED O2 SYS EQUIP. L EQUIP. L RENT; [facility] HUMIDFR&M ASK VIRUS 64352 [facility] CENTRIFUG 0 Y Y E [facility] ID IMFLUOR STAIN EA CULTURE 90776 [facility] FUNGI 0 Y Y DEFINITIV [facility] E ID EACH ORGANISM YEAST SMR PRIM 95455 [facility] SRC 0 Y Y GRAM/GIEM [facility] SA STAIN BCT FUNGI/VAHID L INJECTION J2250 [facility] UN[facility]ERS 0 Y Y MID[place]OLAM [facility] HCL PER 1 MG CULTURE 71797 [facility] FNGI 0 Y Y MOLD/YEAS [facility] T PRSMPTV OTH XCPT BLOOD SPECIAL 93189 [facility] STAIN 0 Y Y GROUP 1 [facility] MICROORGA NISMS I&R BRONCHOSC 71994 [facility] OPY 0 Y Y W/[facility] ONCHIAL LUNG BX 1 LOBE IAADI 93956 [facility] PNEUMOCUS 0 Y Y TIS [facility] CARINII CULTURE 73655 [facility] TUBERCLE/ 0 Y Y OTH [facility] ACID-FAST BACILLI ANY ISOL SMR PRIM 78446 [facility] SRC 0 Y Y FLUORESCE [facility] NT&/AFS BCT FNGI PARASIT TISS FRED 62449 [facility] SLIDE [address] [facility] SKN/HR/NL S FNGI/ECTO PARASIT CUL BACT 80122 [facility] XCPT 0 Y Y URINE [facility] BLOOD/STO OL AEROBIC ISOL RADIOLOGI 52142 [facility] C 0 Y [facility] ON CHEST SINGLE VIEW FRONTAL BRNCHSC 91688 [facility] W/BRNCL 0 Y Y ALVEOLAR [facility] LAVAGE INJECTION J3010 [facility] FENTANYL 0 Y Y CITRATE [facility] 0.1 MG CELL 16672 [facility] COUNT 0 Y Y MISC BODY [facility] FLUIDS W/DIFFERE NTIAL COUNT IADNA NOS 71916 [facility] 0 Y Y AMPLIFIED [facility] PROBE TQ EACH ORGANISM VIRUS 85703 [facility] TISS CUL 0 [facility] ON CYTOPATHI C EFFECT CONCENTRA 60355 [facility] TION 0 Y Y INFECTIOU [facility] S AGENTS CYTP EVAL 17216 [facility] FINE 0 Y Y NEEDLE [facility] ASPIRATE INTERP & REPORT CYTP FINE 15281 [facility] NDL 0 Y Y ASPIRATE [facility] IMMT CYTOHIST STD DX 1ST [place] [address] [facility] SURG 0 Y Y PATHOLOGY [facility] GROSS&JESS ROSCOPIC EXAM BRONCHOSC 76995 [facility] OPY 0 Y Y NEEDLE BX [facility] MAIN STEM&/BRO N O2 CONC 1 E1390 [place] 0 HOME MED HOME MED 85%/>02 EQUIP. L EQUIP. L CONC AT [facility] FLW RATE PRTBLE E0431 MILDRED MILDRED GASEOUS 0 HOME MED HOME MED O2 SYS EQUIP. L EQUIP. L RENT; [facility] HUMIDFR&M ASK RADEX 12828 [place] [facility] ESOPHAGUS 0 MEDICAL EMY IMAGING ASS PHLEBOTOM 97327 COMBINED COMBINED Y 0 PHYSICIAN PHYSICIAN THERAPEUT S LA S LA IC SEPARATE PROCEDURE DUP-SCAN 60711 [place] FR[facility] XTR VEINS 0 MEDICAL EMY COMPLETE IMAGING ASS BILATERAL STUDY COLLECTIO 03034 LUCY AYALA N VENOUS 0 [facility] BLOOD INC INC VENIPUNCT URE COMPREHEN 01866 LUC[facility] A[facility]ALA SIVE 0 [facility] METABOLIC INC INC PANEL PULMONARY 98651 [place] STRESS 0 MEDICAL JAM TESTING SERV SIMPLE FOUNDATIO BLOOD 10289 LUCY AYALA COUNT 0 [facility] COMPLETE INC INC AUTO&AUTO DIFRNTL WBC BRNCDILAT 03404 LUCY AYALA RSPSE 0 [facility] SPMTRY INC INC PRE&POST- BRNCDILAT ADMN CT THORAX 51657 [place] W/O 0 MEDICAL KEY CONTRAST IMAGING MATERIAL ASS COMPREHEN 91682 COMBINED COMBINED SIVE 0 PHYSICIAN PHYSICIAN METABOLIC S LAB S LAB PANEL COLLECTIO 42256 COMBINED COMBINED N VENOUS 0 PHYSICIAN PHYSICIAN BLOOD S LAB S LAB VENIPUNCT URE 3D 02945 [place] RENDERING 0 MEDICAL KEY IMAGING W/INTERP& ASS POSTPROC DIFF WORK STATION RADIOLOGI 74668 [place] FR[facility] C EXAM 0 MEDICAL EMY CHEST 2 IMAGING VIEWS ASS FRONTAL&L ATERAL PRTBLE E0431 MILDRED MILDRED GASEOUS 0 HOME MED HOME MED O2 SYS EQUIP. EQUIP. RENT; [facility] HUMIDFR&M ASK O2 CONC 1 E1390 [place] 0 HOME MED HOME MED 85%/>02 EQUIP. EQUIP. CONC AT [facility] FLW RATE INJECTION J1940 ERIKA JAMES, 0 DON R DON R FUROSEMID E UP TO 20 MG O2 CONC 1 E1390 [place] 0 HOME MED HOME MED 85%/>02 EQUIP. EQUIP. CONC AT [facility] FLW RATE ECG 13709 ERIKA JAMES, ROUTINE 0 DON R DON R ECG W/LEAST 12 LDS W/I&R RADIOLOGI 36874 ERIKA JAMES C EXAM 0 DON R DON R CHEST 2 VIEWS FRONTAL&L ATERAL PRTBLE E0431 MILDRED LEVY GASEOUS 0 HOME MED HOME MED O2 SYS EQUIP. EQUIP. RENT; [facility] FLWMTR HUMIDFR&M ASK RADIOLOGI 38724 ERIKA JAMES C 0 DON R DON R EXAMINATI ON CHEST SINGLE VIEW [facility] 77193 ERIKA JAMES, DISCHARGE 0 DON R DON R DAY MANAGEMEN T 30 MIN/< SBS 40249 [facility] 0 DON R DON R CARE/DAY 25 MINUTES RADIOLOGI 48064 [place] EXAM 0 MEDICAL JANE P CHEST 2 IMAGING VIEWS ASSOCIATE FRONTAL&L S ATERAL SBSQ 35634 [facility] 0 DON R DON R CARE/DAY 25 [facility]ES [facility] 65[facility] 0 DON R DON R CARE/DAY [address] THORAX 53209 [place] [facility], 0 MEDICAL SHASHI W/CONTRAS IMAGING T ASSOCIATE MATERIAL S 3D 72559 [place] [facility], RENDERING 0 MEDICAL SHASHI IMAGING W/INTERP& ASSOCIATE POSTPROC S DIFF WORK STATION SBS 53804 [facility] 0 DON R DON R CARE/DAY 25 MINUTES SBSQ 69930 [facility] 0 DON R DON R CARE/DAY 25 MINUTES RADIOLOGI 87117 ERIKA JAMES C 0 DON R DON R EXAMINATI ON CHEST SINGLE VIEW FRONTAL INITIAL 96650 [facility] R DON R CARE/DAY 50 MINUTES RADIOLOGI 89483 Kristy OROSCO EXAM 0 MEDICAL SHASHI CHEST 2 IMAGING VIEWS ASSOCIATE FRONTAL&L S ATERAL OPHTH 46213 [facility] 9 DONTE A DONTE A XM&EVAL COMPRHNSV ESTAB PT 1/> SCANNING 30107 RETINA & NINI, OPHTHALMI 9 VITREOUS CALLIE W C IMAGING ASSOCIATE S O POSTERIOR SGM UNI OPHTH 91898 RETINA & NINI, MEDICAL 9 VITREOUS CALLIE W XM&EVAL ASSOCIATE INTERMEDI S O ATE ESTAB PT INJECTION J1040 ERIKA JAMES, 8 DON R DON R METHYLPRE DNISOLONE ACETATE 80 MG SCANNING 29092 RETINA & NINI, OPHTHALMI 8 VITREOUS CALLIE W C IMAGING ASSOCIATE S O POSTERIOR SGM UNI OPHTH 65154 RETINA & NINI, MEDICAL 8 VITREOUS CALLIE W XM&EVAL ASSOCIATE INTERMEDI S O ATE ESTAB PT INJECTION J1040 ERIKA JAMES, 8 DON R DON R METHYLPRE DNISOLONE ACETATE 80 MG OPHTH 94452 [facility] 8 DONTE A DONTE A XM&EVAL COMPRHNSV ESTAB PT 1/> SCANNING 12548 RETINA & NINI, OPHTHALMI 8 VITREOUS CALLIE W C IMAGING ASSOCIATE S O POSTERIOR SGM UNI OPHTH 15112 RETINA & NINI, MEDICAL 8 VITREOUS CALLIE W XM&EVAL ASSOCIATE INTERMEDI S O ATE ESTAB PT INJECTION [id number] ERIKA JAMES, 8 DON R DON R METHYLPRE DNISOLONE ACETATE 80 MG RADIOLOGI 73144 ERIKA JAMES EXAM 8 DON R DON R CHEST 2 VIEWS FRONTAL&L ATERAL SCANNING 63925 RETINA & RETINA & OPHTHALMI 8 VITREOUS VITREOUS C IMAGING ASSOCIATE ASSOCIATE S O S O POSTERIOR SGM UNI OPHTH 52752 [facility] & RETINA & MEDICAL 8 VITREOUS VITREOUS XM&EVAL ASSOCIATE ASSOCIATE INTERMEDI S O S O ATE ESTAB PT OPHTH 62138 [facility] & RET[facility] & MEDICAL 8 VITREOUS VITREOUS XM&EVAL ASSOCIATE ASSOCIATE INTERMEDI S O S O ATE ESTAB PT SCANNING 99344 [facility] & RETINA & OPHTHALMI 8 VITREOUS VITREOUS C IMAGING ASSOCIATE ASSOCIATE S O S O POSTERIOR SGM UNI INJECTION J1100 ERIKA JAMES, 8 DON R DON R DEXAMETHO SONE SODIUM PHOSPHATE 1 MG Encounters Encounter Start End Date Code Location Performer Type Date OFFICE 27938 [facility] OUTPATIEN 7 7 PHYSICIAN T VISIT S GROUP 25 MINUTES [facility] OFF[facility] 92582 [facility] OUTPATIEN 7 7 PHYSICIAN T VISIT S GROUP 40 MINUTES OFFICE 66034 A C KIRILL OUTPATIEN 7 7 P[place]AR [place]ITE[place] T VISIT [facility] 15 MINUTES OFFICE 01555 [facility] 7 Y OF CK T VISIT [place] 25 HOSPI MINUTES OFFICE 55718 A C KIRILL OUTPATIEN 7 7 [place]AR [place] T VISIT [facility] 15 MINUTES OFFICE 67816 A C KIRILL OUTPATIEN 7 7 [facility] [place] T VISIT [facility] 15 MINUTES HOSPITAL LUCY - 7 7 [facility] INPATIENT INC OFFICE 08632 A C KIRILL OUTPATIEN 7 7 P[place]AR [place]ITE[place] T VISIT [facility] 15 MINUTES OFFICE 10500 A C KIRILL OUTPATIEN 7 7 P[place]AR [place] T VISIT [facility] 15 MINUTES OFFICE 99165 ELOI POLLOCK OUTPATIEN 6 6 MEDICAL JAM T VISIT [facility] 25 FOUNDATIO MINUTES [facility] LUCY [facility] 6 6 [facility] T OFFICE 96539 [facility] MORALES OUTPATIEN 6 6 PHYSICIAN RITA T VISIT S GROUP 10 MINUTES HOSPITAL LUCY - 6 6 [facility] T OFFICE 82206 LUCY EVAN OUTPATIEN 6 6 [facility] VISIT HOSPITAL 10 P MINUTES OFFICE 86991 A Kristy ROY OUTPATIEN 6 6 PILAR [place]LEITEZ T VISIT [facility] 15 MINUTES OFFICE 90409 [place] OUTPATIEN 6 6 MEDICAL JAM T VISIT SERV 15 FOUNDATIO MINUTES N OFFICE 76206 [facility] ALLRAN JR OUTPATIEN 6 6 PHYSICIAN RITA T VISIT S GROUP 15 MINUTES OFFICE 84465 LUCY EVAN OUTPATIEN 6 6 [facility] 20 HOSPITAL MINUTES HOSPITAL LUCY - 6 6 [facility] INC T OFFICE 88437 [facility] JR OUTPATIEN 6 6 PHYSICIAN RITA T NEW 45 S GROUP MINUTES HOSPITAL LUCY - 6 6 [facility] T OFFICE 09086 [place] OUTPATIEN 6 6 MEDICAL JAM T VISIT SERV 25 FOUNDATIO MINUTES N OFFICE 67100 A Kristy ROY OUTPATIEN 6 6 P[place]AR [place] T VISIT [facility] 15 MINUTES OFFICE 60128 [place] OUTPATI[place] 6 6 MEDICAL JAM T VISIT SERV 25 FOUNDATIO MINUTES N EMERGENCY 50030 [facility] Y OF MADALYN VISIT [facility] SEVERITY& THREAT [facility] LUCY - 6 6 [facility] OUTPATIEN INC T OFFICE 21764 A Kristy WEST OUTPATIEN 6 6 [facility] [place] T VISIT [facility]SC 15 MINUTES OFFICE 69495 A Kristy WEST OUTPATIEN 6 6 [facility] [place] T VISIT PSC 15 MINUTES OFFICE 46295 ELIO POLLOCK OUTPATIEN 6 6 MEDICAL JAM T VISIT SERV 40 FOUNDATIO MINUTES N HOSPITAL LUCY - 6 6 [facility] LUCY - 6 6 [facility] OUTPATIEN INC OFFICE 31095 ELIO POLLOCK OUTPATIEN 6 6 MEDICAL T VISIT SERV 25 FOUNDATIO MINUTES N OFFICE 55959 ELIO DODSONPOLLOCK OUTPATIEN 6 6 MEDICAL JAM T VISIT SERV 15 FOUNDATIO MINUTES [facility] LUCY - 5 5 [facility] OUTPATIEN INC [facility] LUCY - 5 5 [facility] LUCY - 5 5 [facility] OUTPAT[facility]EN [facility] OFFICE 51474 A C FIELD AMB OUTPATIEN 5 5 PILAR PLEITEZ T VISIT PSC 15 MINUTES OFFICE 06671 A C FIELD AMB OUTPATIEN 4 4 P[facility]LE[facility] T VISIT [facility] 15 MINUTES [facility]OSPITAL LUCY - 4 4 [facility] LUCY - 4 4 [facility] LUCY - 4 4 [facility] OUTPATIEN [facility] 4 4 [facility] - 4 4 [facility] OFFICE [id number] FIELD AMB FIELD AMB OUTPATIEN 4 4 T VISIT 15 MINUTES OFFICE [id number] FIELD AMB FIELD AMB OUTPATIEN 3 3 T VISIT 15 MINUTES OFFICE 69971 A C FIELD AMB OUTPATIEN 3 3 PILAR PLEITEZ T NEW 30 PSC MINUTES OFFICE [id number] JAMES JAMES OUTPATIEN 3 3 DON DON T VISIT 15 MINUTES OFFICE 92610 ERIKA MELENDREZS OUTPATIEN 3 3 DON DON T VISIT 15 MINUTES [facility] LUC[facility] - 3 3 [facility] - 2 2 [facility] OFFICE [id number] ERIKA MELENDREZS OUTPATIEN 2 2 DON DON T [facility]ISIT 15 MINUTES [facility]OSP[facility] LUCY - 2 2 [facility] L[facility] - 2 2 [facility] OUTPATIEN [facility] - 2 2 [facility] - 2 2 [facility] OUTPATIEN [facility] OFFICE 81641 ERIKA MELENDREZS OUTPATIEN 2 2 DON DON T VISIT 15 MINUTES OFFICE 00447 ERIKA MELENDREZS OUTPATIEN 1 1 DON DON T VISIT 15 MINUTES OFFICE 92233 ERIKA MELENDREZS OUTPATIEN 1 1 DON DON T VISIT 15 MINUTES OFFICE 96401 ERIKA MELENDREZS OUTPATIEN 1 1 DON DON T VISIT 15 MINUTES OFFICE 53947 ERIKA MELENDREZS OUTPATIEN 1 1 DON DON T VISIT 15 MINUTES HOSPITAL [facility]IVERSIT - 0 0 [facility] 0 0 [facility] 0 0 [facility] - [facility] 0 [facility] OFFICE 56798 JAMESERIKA VELASCO OUTPATIRYLEE 0 0 DON R DON R T VISIT 15 MINUTES OFFICE 50180 ERIKA JAMES OUTPATIRYLEE 0 0 DON R DON R T VISIT 25 MINUTES OFFICE 21445 ERIKA JAMES OUTPATIRYLEE 0 0 DON R DON R T VISIT 15 MINUTES OFFICE 58924 ERIKA JAMES OUTPATIEN 8 8 DON R DON R T VISIT 15 MINUTES OFFICE 74000 ERIKA JAMES OUTPATIEN 8 8 DON R DON R T VISIT 15 MINUTES OFFICE 34430 ERIKA JAMES OUTPATIEN 8 8 DON R DON R T VISIT 15 MINUTES OFFICE 28491 ERIKA JAMES OUTPATIEN 8 8 DON R DON R T VISIT 15 MINUTES OFFICE 31857 ERIKA JAMES OUTPATIEN 8 8 DON R DON R T VISIT 15 MINUTES
--- OUTSIDE RECORDS SUMMARY | 2016-12-05 20:05 | External Medical Summary Rpt ---
Author Author , RANDALL PEREIRA Address Unknown Phone [email or web address] Care Team Providers Care Health Teacher Name Role Phone A Kristy QUEZADA MD [...] Unavailable ROBBINS JESS, ROBBINS Unavailable Unavailable JESS [facility] Unavailable Unavailable SERVICE, [facility] Unavailable Unavailable SERVICE, [facility] Unavailable Unavailable [...] Unavailable TAYLOR KEYANA, TAYLOR Unavailable Unavailable KEYANA [facility] Unavailable Unavailable INC, [facility] Unavailable Unavailable HOSPITAL P, [facility] P DONTE RUIZ, Unavailable Unavailable DONTE RUIZ [facility], Unavailable Unavailable [facility] ARMENDARIZ JENNA, ARMENDARIZ JENNA Unavailable Unavailable HUI MIKHAIL, HUI MIKHAIL Unavailable Unavailable BECKY MAR, BECKY Unavailable Unavailable MAR [facility], [facility] NINI, CALLIE W, Unavailable Unavailable NINI, CALLIE W [facility] Un[facility] GLENN JR, GLENN JR Unavailable Unavailable GLENN JR DWI, GLENN Unavailable Unavailable JR DWI [facility] Unavailable Unavailable INTERNAL MED, [facility] JAMES CON, JAMES CON [...] PHARM #[id number] [facility] Unavailable Unavailable [id number] # [id number], [facility] [id number] # [id number] TANIYA ABIMAEL, TANIYA ABIMAEL Unavailable [...] Unavailable MADALYN OTTO SUSAN, OTTO Unavailable Unavailable [facility], Unavailable Unavailable [facility] Un[facility] HIEU FRANCO, HIEU Unavailable Unavailable [facility], Unavailable [facility], Unavailable [facility]available [facility] MARINA NIXON, Unavailable Unavailable MARINA NIXON Purpose Continuity of Care Document - 04-25-2007 through 2016 Problems Code Diagnosis DOS Provider Status 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 10-09-2016 [facility] E785 HYPERLIPIDE 10-04-2016 [facility] UNSPECIFIED GROUP I119 HYPERTENSIV 10-04-2016 [facility] E HEART PHYSICIANS DISEASE GROUP WITHOUT HEART FAILURE 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 CHRONIC 10-04-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 UNS R0600 DYSPNEA 10-04-2016 [facility] UNSPECIFIED PHYSICIANS GROUP R0602 SHORTNESS 09-14-2016 [place] [facility] R918 OTHER 09-14-2016 [place] NONSPECIFIC MEDICAL ABNORMAL IMAGING ASS FINDING OF LUNG FIELD R938 ABNORMAL 09-14-2016 [facility] FIND ON DX [facility] IMAGING OT INC SPEC BODY STRCT R9431 ABNORMAL 09-14-2016 [facility] ELECTROCARD [facility] IOGRAM INC J410 SIMPLE 09-04-2016 A Kristy GARLAND MD PSC BRONCHITIS I4891 UNSPECIFIED 09-02-2016 [facility]IAL HOME FIBRILLATIO MEDICAL N EQUIPME I200 UNSTABLE 08-27-2016 [facility] ANGINA PHYSICIANS GROUP I10 ESSENTIAL 08-25-2016 [facility] P N L43077 [facility] KOBUK 08-25-2016 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 R634 ABNORMAL 01-11-2016 [facility] WEIGHT LOSS [facility] INC R1110 VOMITING 01-09-2016 [facility] UNSPECIFIED PHYSICIANS GROUP K828 OTHER 01-02-2016 [place] SPECIFIED MEDICAL DISEASES OF IMAGING ASS GALLBLADDER R630 ANOREXIA 01-02-2016 [facility] K921 MELENA 11-07-2015 [facility] K5710 DIVERTICULO 11-03-2015 [place] SIS SM MEDICAL INTEST W/O IMAGING ASS PERF/ABSC W/O BLEED R195 OTHER FECAL 11-03-2015 [facility] ABNORMALITI IMAGING ASS ES N88558 LYMPHOCYTOS 10-26-2015 [facility] IS PATHOLOGY SYMPTOMATIC LAB NETW J690 PNEUMONITIS 10-26-2015 [place] [facility] DUE TO SERV INHALATION [facility] OF FOOD AND VOMIT Z09 ENC F/U 10-20-2015 A Kristy QUEZADA EXAM AFTR PSC CMPL TX OTH THAN MALIG NEOPLSM B370 CANDIDAL 10-19-2015 [facility] STOMATITIS SERV [facility] R112 NAUSEA WITH 10-19-2015 [place] [facility] VOMITING SERV UNSPECIFIED FOUNDATION I509 HEART 10-15-2015 [facility] FAILURE HOME UNSPECIFIED MEDICAL EQUIPME R531 WEAKNESS 09-20-2015 [facility] 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[facility] R BLOCK SERV [facility] I4510 UNSPECIFIED 09-15-2015 [place] [facility] RIGHT SERV BUNDLE-BRAN F[facility]ATION CH BLOCK R001 BRADYCARDIA 09-15-2015 [facility] UNSPECIFIED [facility] B965 PSEUDOMONAS 09-14-2015 [facility] CAUSE OF SERV DZ [facility] CLASSIFIED ELSEWHERE J9600 ACUTE 09-14-2015 [facility]PIRATORY SERV FAIL UNS FOUNDATION HYPOXIA/HYP ERCAPNIA J9811 ATELECTASIS 09-14-2015 [facility] K76473 ENCOUNTER 09-14-2015 [place] [facility] SURG SERV [facility]ARE [...] POSTPROCEDU FOUNDATION RAL STATES 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 K4030 UNILAT 08-25-2015 [facility] INGUINAL [facility] NGUYEN W/OBST HOSPI W/O GANGRN NOT RECUR K4040 UNILAT 08-25-2015 [place] [facility] IN[facility]AL SERV NGUYEN FOUNDATION W/GANGREN NOT SPEC RECUR Z7901 SHELTER 08-25-2015 [place] [facility] CURRENT USE SERV OF [facility] ANTICOAGULA NTS A71128 ELEVATED 08-24-2015 [facility] BLOOD [facility] P UNSPECIFIED K4090 UNILAT 08-24-2015 [place] [facility] IN[facility]INAL SERV NGUYEN W/O FOUNDATION OBST/GANGRE N NOT RECUR K5660 UNSPECIFIED 08-24-2015 [facility] SERVICE OBSTRUCTION R1031 RIGHT LOWER 08-24-2015 [facility] PAIN HOSPI 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 J189 PNEUMONIA 08-03-2015 [place] UNSPECIFIED MEDICAL ORGANISM IMAGING ASS J439 EMPHYSEMA 08-03-2015 [facility] UNSPECIFIED [facility]EN INTERNAL MED J929 PLEURAL 08-03-2015 [place] PLAQUE MEDICAL WITHOUT IMAGING ASS ASBESTOS R002 PALPITATION 08-03-2015 [place] [facility] S [facility] R031 NONSPECIFIC 08-03-2015 [place] [facility] LOW SERV BLOOD-PRESS [facility] URE READING R42 DIZZINESS 08-03-2015 [facility] GIDDINESS FOUND[facility] 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 08-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 [place] [facility] SUPPLEMENTA INTERNAL L OXYGEN MED J42 UNSPECIFIED 07-13-2015 [place] CHRONIC MEDICAL BRONCHITIS IMAGING ASS Z7722 CONTACT W/ 07-13-2015 [place] [facility] & SUSPECTED SERV EXPOS [facility] ENVIR TOBACCO SMOKE J40 BRONCHITIS 03-25-2015 [place] NOT MEDICAL SPECIFIED IMAGING ASS ACUTE OR CHRONIC R091 PLEURISY 01-21-2015 [facility] 4280 CONGESTIVE 01-14-2015 [facility] HE[facility] HOME FAILURE MEDICAL UNSPECIFIED EQUIPME 04085 OBSTRUCTIVE 01-14-2015 [facility] WITHOUT EXACERBAT 496 CHRONIC 01-14-[address] [facility] [address] HOME OBSTRUCTION MEDICAL NEC EQUIPME 28179 NUCLEAR 12-28-2014 [facility] SCLEROSIS JAMILAH 58983 OBST 09-06-2014 A Kristy QUEZADA CHRONIC PSC BRONCHITIS W/ACUTE BRONCHITIS 07133 LOSS OF 09-06-2014 A Kristy QUEZADA WEIGHT PSC 34452 OTHER CHEST 09-06-2014 A Kristy QUEZADA PAIN PSC 38500 OBSTRUCTIVE 09-05-2014 [facility] SLEEP HOME APNEA MEDICAL EQUIPME 7242 LUMBAGO 04-01-2014 A Kristy QUEZADA MD PSC V0382 NEED PROPH 04-01-2014 A Kristy QUEZADA VACCINATION PSC AGAINST STREP PNEUMONE 71137 ATRIAL 01-13-2014 [facility] F[facility]RILLATIO [facility] N INC 73942 REFLUX 01-13-2014 [facility] ESOPHAGITIS [facility] INC 36008 UNS 01-13-2014 [facility] GASTRITIS&G [facility] ASTRODUODIT INC IS W/O MENTION HEMORR 28377 ABDOMINAL 01-13-2014 [facility] PAIN, [facility] GENERALIZED INC V5869 LONG-TERM 01-13-2014 [facility] (CURRENT) [facility] USE OF INC OTHER MEDICATIONS 04588 CHEST PAIN 11-24-2013 [facility] UNSPECIFIED [facility] INC 5110 PLEURISY 10-29-2013 [place] WITHOUT MEDICAL MENTION IMAGING ASS EFFUS/CURRE NT TB 7862 COUGH 10-29-2013 [facility] 09844 INSOMNIA 12-16-2012 A Kristy QUEZADA UNSPECIFIED PSC 62412 OTHER 12-16-2012 A Kristy QUEZADA MALAISE AND PSC FATIGUE 28871 FEVER 05-23-2012 J[facility] UNSPECIFIED DON 40530 WHEEZING 05-23-2012 JAMES DON 1120 CANDIDIASIS 05-21-2012 JAMES OF MOUTH DON 78640 OTHER 05-21-2012 FRANCESCA DISEASES OF EMY LUNG NOT ELSEWHERE CLASSIFIED 4940 BRONCHIECTA 01-28-2012 [place] SIS WITHOUT MEDICAL ACUTE IMAGING ASS EXACERBATIO N 5119 UNSPECIFIED 01-28-2012 [place] PLEURAL MEDICAL EFFUSION IMAGING ASS 84214 OTHER 01-28-2012 [facility] NONSPECIFIC [facility] ABNORMAL INC FINDING OF LUNG FIELD 75582 OSTEOARTHRO 01-02-2012 JAMES S INVLV MX DON [place]ITES [place] [address]73 OBSTRUCTIVE 11-12-2011 [facility] CHRONIC [facility] BRONCHITIS INC WITH EXACERBATIO N 36018 ESOPHAGEAL 11-12-2011 [facility] REFLUX [facility] INC 2859 UNSPECIFIED 10-05-2011 [facility] ANEMIA [facility] INC 5180 PULMONARY 10-05-2011 [place] COLLAPSE [facility]ICAL IMAGING ASS 486 PNEUMONIA, 09-28-2011 [place] ORGANISM MEDICAL UNSPECIFIED IMAGING ASS 5070 PNEUMONITIS 09-28-2011 [place] DUE TO JAM INHALATION OF FOOD OR VOMITUS 83606 SHORTNESS 09-28-2011 [facility] OF BREATH [facility] INC 86051 ABDOMINAL 09-28-2011 [facility] PAIN, [facility] EPIGASTRIC INC V1261 PERSONAL 09-28-2011 [facility] HISTORY JAM PNEUMONIA RECURRENT 97242 PNEUMONIA 06-08-2011 JAMES DUE TO DON OTHER SPECIFIED BACTERIA 2724 OTHER AND 05-11-2011 COMBINED UNSPECIFIED PHYSICIANS LA HYPERLIPIDE [place] 2768 HYPOPOTASSE 05-11-2011 COMBINED [place] PHYSICIANS LA 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 A N OF RETINA UNSPECIFIED 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 07-20-2008 [facility] & 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 33665 EXUDATIVE 07-20-2008 [place] & SENILE [facility]RE[facility] MACULAR ASSOC[facility]ATES DEGENERATIO O N OF RETINA 14782 CRYSTALLINE 07-20-2008 [place] & DEPOSITS VITREOUS IN VITREOUS ASSOCIATES O 4610 ACUTE 02-27-2008 JAMES, MAXILLARY DON R SINUSITIS 4659 ACUTE URIS 02-27-2008 E[facility], OF DON R UNSPECIFIED SITE 8472 LUMBAR 11-14-2007 ERIKA, SPRAIN AND DON R STRAIN 4660 ACUTE 08-02-2007 ERIKA, BRONCHITIS DON R 4871 INFLUENZA 07-04-2007 ERIKA, WITH OTHER DON R RESPIRATORY MANIFESTATI ONS 89620 PAIN IN 04-25-2007 ERIKA, JOINT, DON R SHOULDER REGION 46912 UNSPECIFIED 04-25-2007 ERIKA, SYNOVITIS DON R AND [...] YOUR YOUR SM VOL 7 PHARMACY [facility] PNEUMAT NEBULIZR DISPBL ECG 88602 [facility] ROUTINE 7 PHYSICIAN ECG S GROUP W/LEAST 12 LDS [place] [address] [facility]A UREA 7 [facility] NITROGEN INC INC QUANTITAT ARCENIO CREATININ 27341 [facility] A[facility] E BLOOD 7 [facility] THORAX 10650 [facility] A[facility]ALA 7 [facility] W/CONTRAS INC INC T MATERIAL ALBUTEROL J7620 YOUR YOUR TO 2.5 7 PHARMACY PHARMACY [facility] IPRATROPI UM BROM TO 0.5 MG ADMN SET A7003 YOUR YOUR SM VOL 7 PHARMACY PHARMACY [facility] PNEUMAT NEBULIZR DISPBL ALBUTEROL J7620 A C A C TO 2.5 7 PILAR QUEZADA MD MG & PSC PSC IPRATROPI UM BROM TO 0.5 MG ECG 54642 [facility] ROUTINE 7 PHYSICIAN ECG S GROUP W/LEAST 12 LDS I&R ONLY O2 CONC 1 E1390 MLIDRED LUIS [facility] 7 HOME HOME 85%/>02 MEDICAL MEDICAL CONC AT EQUIPME EQUIPME [facility] FLW RATE R & L HRT 41954 [facility] CATH 7 PHYSICIAN WINJX HRT S GROUP ART& L VENTR IMG RADIOLOGI 77933 [facility] 7 MEDICAL EXAMINATI IMAGING ON CHEST ASS SINGLE VIEW FRONTAL ECG 67490 [facility] ELIZABETH JR ROUTINE 7 [facility] W/LEAST P 12 LDS I&R ONLY ALBUTEROL J7620 YOUR YOUR TO 2.5 7 PHARMACY PHARMACY [facility] IPRATROPI UM BROM TO 0.5 MG ADMN SET A7003 YOUR YOUR SM VOL 7 PHARMACY PHARMACY [facility] PNEUMAT NEBULIZR DISPBL O2 CONC 1 E1390 [facility] LEVY [facility] 7 HOME HOME 85%/>02 MEDICAL MEDICAL CONC AT EQUIPME EQUIPME [facility] O2 CONC 1 E1390 [facility] 7 HOME HOME 85%/>02 MEDICAL MEDICAL CONC AT EQUIPME [facility]251 [facility] 7 MEDICAL CARE/DAY SERV 25 FOUNDATIO MINUTES N RADIOLOGI 21622 [facility] C EXAM 7 MEDICAL MEDICAL CHEST 2 IMAGING IMAGING VIEWS ASS ASS FRONTAL&L ATERAL O2 CONC 1 E1390 [facility] 7 HOME HOME 85%/>02 MEDICAL MEDICAL CONC AT EQUIP[facility] O2 CONC 1 E1390 [facility] [place] 6 HOME HOME 85%/>02 MEDICAL MEDICAL CONC AT E[facility] O2 CONC 1 E1390 [facility] 6 HOME HOME 85%/>02 MEDICAL MEDICAL CONC AT EQUIPME [facility] PHRM Q0513 YOUR YOUR DISPENSIN 6 PHARMACY PHARMACY G [facility] [employer] INHALATIO N RX; PER 30 DAYS ALBUTEROL J7620 YOUR YOUR TO 2.5 6 PHARMACY PHARMACY [facility] [employer] IPRATROPI UM BROM TO 0.5 MG ADMN SET A7003 YOUR YOUR SM VOL 6 PHARMACY PHARMACY NONFILTR [facility] PNEUMAT NEBULIZR DISPBL O2 CONC 1 E1390 [facility] 6 HOME HOME 85%/>02 MEDICAL MEDICAL CONC AT E[facility] G0463 [facility] A[facility]AL[facility] OUTPATIEN 6 [facility] T CLIN INC INC VISIT ASSESS & MGMT PT O2 CONC 1 E1390 [facility] 6 HOME HOME 85%/>02 MEDICAL MEDICAL CONC [place] [facility]QUIPME [place] [address] [facility] ABDOMEN 6 [facility] W/CONTRAS INC INC T MATERIAL BLOOD 87957 [facility] COUNT 6 [facility] COMPLETE INC INC AUTO&AUTO DIFRNTL WBC COLLECTIO 34364 [facility] N VENOUS 6 [facility] BLOOD INC INC VENIPUNCT URE COMPREHEN 19082 [facility] SIVE 6 [facility] METABOLIC INC INC PANEL LOCM Q9967 [facility] A[facility]A 300-399 6 [facility] MG/ML INC INC IODINE CONCENTRA TION PER ML ANES 34558 [facility] UPPER GI 6 ANESTH PALMA ENDOSCOPY OF THE PROXIMAL BLUE TO DUODENUM O2 CONC 1 E1390 [facility] [place] 6 HOME HOME 85%/>02 MEDICAL MEDICAL CONC AT EQUIPME [facility] FLW RATE RADEX 63849 [facility] AYALA UPPER GI 6 MEM HOS[facility] W/WO INC INC GLUCAGON/ DELAY IMAGES W/KUB O2 CONC 1 E1390 [facility] [place] 6 HOME MAR 85%/>02 MEDICAL CONC AT [facility] FLW RATE RADEX 37459 TEX FONTANEZ ALL UPPER GI 6 MEDICAL W/WO IMAGING GLUCAGON/ ASS DELAY IMGES W/O KUB COLLECTIO 26677 [facility] N VENOUS 6 [facility] BLOOD INC INC VENIPUNCT URE FLOW 55603 [facility] CYTOMETRY 6 [facility] HOS[facility] CELL INC INC SURF MARKER TECHL ONLY EA FLOW 53875 [facility] CYTOMETRY 6 [facility] CELL INC INC SURF MARKER TECHL ONLY 1ST FLOW 95578 MOLECULAR MOLECULAR CYTOMETRY 6 [facility] PATHOLOGY PATHOLOGY 2-8 LAB NETW LAB NETW MARKERS NEBULIZER E0570 [facility] LEVY WITH 6 HOME HOME COMPRESSO MEDICAL MEDICAL R EQUIPME EQUIPME O2 CONC 1 E1390 [facility] D[place] 6 HOME KEY 85%/>02 MEDICAL CONC AT [facility] FLW RATE WALKER E0143 [facility] FOLDING 6 WHEELED ADJUSTABL E/FIXED HEIGHT SEAT E0156 [facility] ATTACHMEN 6 T WALKER ECG 28277 [place] TANIYA ABIMAEL ROUTINE 6 MEDICAL ECG SERV W/LEAST FOUNDATIO 12 LDS N I&R ONLY ECG 70704 [place] PELAE[facility] ROUTINE 6 MEDICAL NAN ECG SERV W/LEAST FOUNDATIO 12 LDS N I&R ONLY RADIOLOGI 67102 [place] JAMES CON C 6 MEDICAL EXAMINATI SERV ON CHEST FOUNDATIO SINGLE N VIEW FRONTAL SBSQ 61765 [place] [facility] 6 MEDICAL KEYANA CARE/DAY SERV 25 FOUNDATIO MINUTES N RADIOLOGI 48899 [place] JEANEK 6 MEDICAL AYA MAR EXAMINATI SERV ON CHEST FOUNDATIO SINGLE N VIEW FRONTAL SBSQ 97595 [place] [facility] 6 MEDICAL KEYANA CARE/DAY SERV 15 FOUNDATIO MINUTES N SBSQ 97171 [facility] 6 MEDICAL KEYANA CARE/DAY SERV 15 FOUNDATIO MINUTES N RADIOLOGI 56767 [place] [facility] 6 MEDICAL EXAMINATI SERV ON CHEST FOUNDATIO SINGLE N VIEW FRONTAL SBSQ 40236 [facility] 6 MEDICAL CARE/DAY SERV 25 FOUNDATIO MINUTES N RADIOLOGI [address] [place] [facility] C 6 MEDICAL EXAMINATI SERV ON CHEST FOUNDATIO SINGLE N VIEW FRONTAL RADIOLOGI 55016 [place] MAH[facility] LEATHA C 6 MEDICAL EXAMINATI SERV ON CHEST FOUNDATIO SINGLE N VIEW FRONTAL RADEX 84522 [place] [facility] ABDOMEN 1 6 MEDICAL SUSAN SERV ANTEROPOS FOUNDATIO TERIOR N VIEW ECG 76004 [facility] ROUTINE 6 MEDICAL ECG SERV W/LEAST FOUNDATIO 12 LDS N I&R ONLY SBSQ 97930 [place] [facility] 6 MEDICAL CARE/DAY SERV 25 FOUNDATIO MINUTES N CRITICAL 03174 [place] [facility] 6 MEDICAL ILL/INJUR SERV ED FOUNDATIO PATIENT N INIT 30-74 MIN ECG 26189 [place] [facility] ROUTINE 6 MEDICAL ECG SERV W/LEAST FOUNDATIO 12 LDS N I&R ONLY RADEX 55981 [facility] ABDOMEN 1 6 [facility] [place]IOR VIEW RADIOLOGI 11904 [place] [facility] LEATHA C 6 MEDICAL EXAMINATI SERV ON CHEST FOUNDATIO SINGLE N [place] FRONT[place] CT THORAX 60458 [place] JAMES CON 6 MEDICAL W/CONTRAS SERV T FOUNDATIO MATERIAL N RADIOLOGI 13411 [place] [facility]IEK C 6 MEDICAL AYA MAR EXAMINATI SERV ON CHEST FOUNDATIO SINGLE N VIEW FRONTAL RADEX 96543 [facility] ABDOMEN 1 6 Y OF CAR [place] [address] [place] REYEZ CLEO ABDOMEN & 6 MEDICAL PELVIS SERV W/CONTRAS FOUNDATIO T N MATERIAL SBSQ 90020 [place] [facility] 6 MEDICAL CARE/DAY SERV 25 FOUNDATIO MINUTES N INITIAL 59783 [place] [facility] 6 MEDICAL SUN KAYODE CARE/DAY SERV 30 FOUNDATIO MINUTES N ECHO 45699 [place] [facility] TTHR R-T 6 MEDICAL ERIKA 2D SERV W/WOM-MOD FOUNDATIO E COMPL N SPEC&COLR D SBSQ 29840 [facility] 6 MEDICAL AND CARE/DAY SERV 25 FOUNDATIO MINUTES N RADIOLOGI 86074 [place] [facility] CON C 6 MEDICAL EXAMINATI SERV ON CHEST FOUNDATIO SINGLE N VIEW FRONTAL RADEX ABD 37987 [place] PAUL[facility] COMPL 6 MEDICAL JURGEN AQT ABD SERV ANNEL W/S/E/D FOUNDATIO VIEWS 1 N VIEW CH ECG 43062 [facility] ROUTINE 6 MEDICAL ECG SERV W/LEAST FOUNDATIO 12 LDS N I&R ONLY SBSQ 91417 [facility] 6 MEDICAL AND CARE/DAY SERV 25 FOUNDATIO MINUTES N RADIOLOGI 65934 [place] [facility] CON C 6 MEDICAL EXAMINATI SERV ON CHEST FOUNDATIO SINGLE N VIEW FRONTAL ECG 78867 [place] [facility] ROUTINE 6 MEDICAL ECG SERV W/LEAST FOUNDATIO 12 LDS N I&R ONLY RADIOLOGI 14333 [place] CON C 6 MEDICAL EXAMINATI SERV ON CHEST FOUNDATIO SINGLE N VIEW FRONTAL RADIOLOGI 52153 [place] WILLIEK C 6 MEDICAL AYA MAR EXAMINATI SERV ON CHEST FOUNDATIO SINGLE N VIEW FRONTAL RADEX 57816 [facility] ABDOMEN 1 6 Y OF TEX ANTEROPOS HOSPI TERIOR VIEW RADIOLOGI 41989 [place] ROBB[facility] C 6 MEDICAL JESS EXAMINATI SERV ON CHEST FOUNDATIO SINGLE N [place]IEW FRONTAL RADEX 71921 [place] ZAGUROVSK ABDOMEN 1 6 MEDICAL AYA MAR SERV ANTEROPOS FOUNDATIO TERIOR N VIEW CT THORAX 80224 [place] ARMENDARIZ JENNA 6 MEDICAL W/CONTRAS SERV T FOUNDATIO MATERIAL N RADIOLOGI 76441 [place] ZAGUROVSK C 6 MEDICAL AYA MAR EXAMINATI SERV ON CHE[place] [address] [place] AYOOB AND ABDOMEN & 6 MEDICAL PELVIS SERV W/CONTRAS FOUNDATIO T N MATERIAL RADEX 31453 [facility] ABDOMEN 1 6 Y OF [place] ANTEROPOS HOSPI TERIOR VIEW RADEX 06443 [facility] ABDOMEN 1 6 Y OF [place] ANTEROPOS HOSPI TERIOR VIEW SBSQ 67087 [facility] 6 MEDICAL AND CARE/DAY SERV 25 FOUNDATIO MINUTES N RADIOLOGI 16342 [place] DELL CAR C 6 MEDICAL EXAMINATI SERV ON CHEST FOUNDATIO SINGLE N VIEW FRONTAL SBSQ 87806 [place] [address] MEDICAL AND CARE/DAY SERV 25 FOUNDATIO MINUTES N ECG 33789 [place] PELAEZ ROUTINE 6 MEDICAL NAN ECG SERV W/LEAST FOUNDATIO 12 LDS N I&R ONLY RADIOLOGI 33781 [place] JAMES CON C 6 MEDICAL EXAMINATI SERV ON CHEST FOUNDATIO SINGLE N VIEW FRONTAL ECG 89752 [place] HUI MIKHAIL ROUTINE 6 MEDICAL ECG SERV W/LEAST FOUNDATIO 12 LDS N I&R ONLY RPR 1ST 17199 [facility] INGUN 6 MEDICAL RONNY HRNA AGE SERV 5 YRS/> FOUNDATIO INCARCERA N KISHOR ANESTHESI 59445 [facility] BET A HERNIA 7 Y OF REPAIR [place] [facility] ABDOMEN NOS ARTL 15388 [facility] CATHJ/CAN 6 Y OF Y OF NULJ [facility] SFUSION SPX PRQ SBSQ 30204 [facility] 6 MEDICAL RONNY CARE/DAY SERV 25 FOUNDATIO MINUTES N LEVEL III 00777 [place] HIEU SURG 6 MEDICAL FRANCO PATHOLOGY SERV FOUNDATIO GROSS&[place] [address] [facility] 6 MEDICAL FRANCO PATHOLOGY SERV FOUNDATIO GROSS&JESS N ROSCOPIC EXAM COMPREHEN 15081 [facility] SIVE 6 [facility] [address] [facility] AMYLASE 6 [facility] INC INC CREATINE 52987 LUCY AYALA KINASE MB 6 [facility] FRACTION INC INC ONLY INJECTION J2405 [facility] 6 [facility] ONDANSETR INC INC ON HCL PER 1 MG INJ J2543 [facility] A[facility] PIPERACIL 6 [facility] YONATHAN INC INC SOD/TAZOB ACTAM SOD 1 G/0.125 G INITIAL 06814 [facility] 6 MEDICAL CHR CARE/DAY SERV 50 FOUNDATIO MINUTES N RADIOLOGI 45230 [facility]AL[facility] C 6 [facility] EXAMINATI INC INC ON CHEST SINGLE VIEW FRONTAL THER 16024 LUCY AYALA PROPH/DX 6 [facility] NJX EA INC INC SEQL IV PUSH SBST/DRUG FAC ECG 62903 LUC[facility] AYALA ROUTINE 6 [facility] ECG INC INC W/LEAST 12 LDS TRCG ONLY W/O I&[place] [address] [place] [facility] ABDOMEN & 6 MEDICAL PELVIS IMAGING W/O ASS CONTRAST MATERIAL ECG 38725 LUCY BEVERLY ROUTINE 6 [facility] W/LEAST P 12 LDS I&[place] [address] LUC[facility] A[facility]AL[facility] INFUSION 6 [facility] THERAPY/P INC INC ROPHYLAXI S /DX 1ST TO 1 [place] [address] LUC[facility] AYALA TROPONIN 6 [facility] QUANTITAT INC INC ARCENIO BLOOD 62632 L[facility] A[facility]AL[facility] COUNT 6 [facility] COMPLETE INC INC AUTO&AUTO DIFRNTL WBC GROUND A0425 [facility] MILEAGE 6 AMBULANCE AMBULANCE PER SERVICE SERVICE STATUTE MILE CREATINE 98770 LUC[facility] AYALA KINASE 6 [facility] [place] [place] [address] LUC[facility] AYALA LIPASE 6 [facility] INC INC AMBULANCE A0429 [facility] SERVICE 6 AMBULANCE AMBULANCE BL SERVICE SERVICE EMERGENCY TRANSPORT BLOOD 52014 Darnell Wagner KIRILL JENNA COUNT 6 PILAR PLEITEZ COMPLETE PSC AUTO&AUTO DIFRNTL WBC COLLECTIO 51943 Darnell Wagner KIRILL JENNA N VENOUS 6 PILAR PLEITEZ BLOOD PSC VENIPUNCT URE NEBULIZER E0570 MILDRED LEVY WITH 6 HOME HOME [facility] EQUIPME EQUIPME INITIAL [id number] CARE/DAY INTERNAL 70 MED MINUTES ECG 25723 [facility] ROUTINE 6 [facility] W/LEAST P 12 LDS I&R ONLY RADIOLOGI 65878 TEX Wagner 6 MEDICAL EXAMINATI IMAGING ON CHEST ASS SINGLE VIEW FRONTAL NEBULIZER E0570 MILDRED LEVY WITH 6 HOME HOME [facility] EQUIPME EQUIPME PHRM Q0513 YOUR YOUR DISPENSIN 6 PHARMACY PHARMACY G FEE [employer] INHALATIO N RX; PER 30 DAYS ALBUTEROL J7620 YOUR YOUR TO 2.5 6 PHARMACY PHARMACY [facility] IPRATROPI UM BROM TO 0.5 MG ADMN SET A7003 YOUR YOUR SM VOL 6 PHARMACY PHARMACY NONFILTR [employer] PNEUMAT NEBULIZR DISPBL COLLECTIO 25412 LUCY AYALA N VENOUS 6 [facility] BLOOD INC INC VENIPUNCT URE COMPREHEN 65744 LUCY AYALA SIVE 6 [facility] METABOLIC INC INC PANEL BLOOD 08424 LUCY AYALA COUNT 6 [facility] COMPLETE INC INC AUTO&AUTO DIFRNTL WBC RADIOLOGI 32724 LUCY Wagner EXAM 6 [facility] CHEST 2 INC INC VIEWS FRONTAL&L ATERAL RADIOLOGI 18247 TEX Wagner 6 MEDICAL EXAMINATI IMAGING ON [...] TO 2.5 5 PHARMACY PHARMACY MG & [employer] IPRATROPI UM BROM TO 0.5 MG RADIOLOGI 87691 [facility] C EXAM 5 MEDICAL CHEST 2 IMAGING VIEWS ASS FRONTAL&L ATERAL CT THORAX 81249 [facility] 5 MEDICAL W/CONTRAS IMAGING T ASS MATERIAL RADIOLOGI 01225 [facility] C EXAM 5 MEDICAL CHEST 2 IMAGING VIEWS ASS FRONTAL&L ATERAL ALBUTEROL J7620 YOUR YOUR TO 2.5 5 PHARMACY PHARMACY MG [facility] [employer] [facility] IPRATROPI UM BROM TO 0.5 MG PHARM G0333 YOUR YOUR DISPEN 5 PHARMACY PHARMACY [facility] [employer] RX; INITIAL 30-DAY SUPPLY NEBULIZER E0570 MILDRED [place]Y WITH 5 HOME HOME [facility] EQUIPME EQUIPME CATARACT 75635 [facility] REMOVAL 5 JAMILAH JAMILAH INSERTION [...] EQUIPME EQUIPME ARWAY PRESS DEVICE EA POLYSOM 96138 NEERAJ KERN MAR 6/>YRS 4 SLEEP 4/> NEUROSCIE ADDL NCES CENT AMA ATTND POLYSOM 48884 LUCY AYLAA 6/>YRS 4 [facility] SLEEP 4/> INC INC ADDL AMA ATTND IMC/IMC G0461 LUCY AYALA PER 4 [facility] SPECIMEN; INC INC 1ST SNGL/MPX ANTIBODY STN SPECIAL 45476 LUCY AYALA STAIN 4 [facility] GROUP 1 INC INC MICROORGA NISMS I&R SPCL STN 07417 LUCY AYALA 2 I&R 4 [facility] EXCPT INC INC MICROORG/ ENZYME/[place] [address] LUCY AYALA INFUSION 4 [facility] THERAPY INC INC PROPHYLAX IS/[place] [address] LUCY AYALA SURG 4 [facility] PATHOLOGY INC INC GROSS&[place] [address] LUCY AYALA INFUSION 4 [facility] THERAPY/P INC INC ROPHYLAXI S /DX 1ST TO 1 HR SPMTRY 47066 LUCY AYALA W/VC 4 [facility] EXPIRATOR INC INC Y ALFREDO W/WO MXML VOL VNTJ ECHO 53203 LUCY AYALA TTHRC R-T 4 [facility] 2D INC INC W/WOM-MOD E COMPL SPEC&COLR D MYOCARDIA 84350 TEX Parra 4 MEDICAL EMY PERFUSION IMAGING PLANAR ASS MULTIPLE STUDIES CV STRS 58500 [facility] TST 4 XERS&/OR RX CONT ECG W/O I&R CV STRS 12081 GLENN ELIZABETH JR TST 4 DWI DWI XERS&/OR RX CONT ECG I&R ONLY MYOCARDIA 34112 LUCY AYALA L SPECT 4 [facility] MULTIPLE INC INC STUDIES RADIOLOGI 48264 TEX MA C EXAM 4 MEDICAL EMY [...] DON DON CEFAZOLIN SODIUM 500 MG RADIOLOGI 64262 LUCY AYALA C EXAM 3 [facility] [...] EQUIPME EQUIPME FLWMTR HUMIDFR&M ASK CT THORAX 29338 [facility] W/O 2 MEDICAL EMY CONTRAST IMAGING MATERIAL ASS 3D 11289 [facility] RENDERING 2 MEDICAL EMY IMAGING W/INTERP& ASS POSTPROC DIFF WORK STATION PRTBLE E0431 MILDRED MILDRED GASEOUS 2 HOME HOME O2 SYS MEDICAL MEDICAL RENT; EQUIPME EQUIPME FLWMTR HUMIDFR&M ASK TOBACCO 12093 JAMES JAMES USE 2 DON DON CESSATION INTERMEDI ATE 3-10 MINUTES PRTBLE E0431 MILDRED MILDRED GASEOUS 2 HOME HOME O2 SYS MEDICAL MEDICAL RENT; EQUIPME EQUIPME FLWMTR HUMIDFR&M ASK PRTBLE E0431 MILDRED MILDRED GASEOUS 2 HOME HOME O2 SYS MEDICAL MEDICAL RENT; EQUIPME EQUIPME FLWMTR HUMIDFR&M ASK SPMTRY 44169 MARIS MAGAÑAICK W/VC 2 JAM JAM EXPIRATOR Y ALFREDO W/WO MXML VOL VNTJ RADIOLOGI 54895 LUCY Wagner EXAM 2 [facility] CHEST 2 INC INC VIEWS FRONTAL&L ATERAL PRTBLE E0431 MILDRED MILDRED GASEOUS 2 HOME HOME O2 SYS MEDICAL MEDICAL RENT; EQUIPME EQUIPME FLWMTR HUMIDFR&M ASK BLOOD 22857 LUCY AYALA GASES ANY 2 [facility] INC INC COMBINATI ON PH PCO2 PO2 CO2 HCO3 GLUCOSE 88848 LUCY AYALA BODY 2 [facility] FLUID INC INC OTHER THAN BLOOD IRON 69821 LUCY AYALA BINDING 2 [facility] CAPACITY INC INC LACTATE 34192 LUCY AYALA DEHYDROGE 2 [facility] NASE LDH INC INC PROTEIN 79873 LUCY AYALA XCPT 2 [facility] REFRACTOM INC INC ETRY SERUM PLASMA/WH L BLD SMR PRIM 98041 LUCY AYALA SRC 2 [facility] GRAM/GIEM INC INC SA STAIN BCT FUNGI/VAHID L RADIOLOGI 38678 LUCY Wagner EXAM 2 [facility] CHEST 2 INC INC VIEWS FRONTAL&L ATERAL CT THORAX 08210 LUCY AYALA W/O 2 [facility] CONTRAST INC INC MATERIAL NONINVASI 83661 LUCY AYALA VE 2 [facility] EAR/PULSE INC INC OXIMETRY SINGLE DETER CYTP 81554 PATHOLOGY PATHOLOGY SLCTV 2 & & CELL CYTOLOGY CYTOLOGY ENHANCEME LAB LAB NT INTERPJ XCPT C/V CYANOCOBA 30259 LUCY AYALA BETTIE 2 [facility] VITAMIN INC INC B-12 THORACENT 65589 LUCY AYALA ESIS 2 [facility] PUNCTURE INC INC PLEURAL CAVITY ASPIRATIO N CUL BACT 08765 LUCY AYALA XCPT 2 [facility] URINE INC INC BLOOD/STO OL AEROBIC ISOL CULTURE 91304 LUCY AYALA BACTERIAL 2 [facility] ANY INC INC SOURCE ANAEROBIC ISO&ID CULTURE 45787 LUCY AYALA TUBERCLE/ 2 [facility] OTH INC INC ACID-FAST BACILLI ANY ISOL TISS FRED 62296 LUCY AYALA SLIDE 2 [facility] SAMPS INC INC SKN/HR/NL S FNGI/[place] [address] LUCY AYALA GUIDANCE 2 [facility] NEEDLE INC INC PLACEMENT COLLECTIO 28174 LUCY LUCY N VENOUS 2 [facility] BLOOD [facility] INC VENIPUNCT URE CELL 59758 L[facility]YJOAN BOBON COUNT 2 [facility] MISC BODY INC INC FLUIDS W/DIFFERE NTIAL COUNT CARBOXYHE 03469 LUCY AYALA MOGLOBIN 2 [facility] [place] [address] LUCY LUCY IRON 2 [facility] INC INC SPUTUM 23123 LUCY AYALA OBTAINING 2 [facility] SPEC INC INC AEROSOL INDUCED TX SPX ECG 52147 LUCY AYALA ROUTINE 2 [facility] ECG INC INC W/LEAST 12 LDS TRCG ONLY W/O I&R ECG 96503 [facility] BEVERLY ROUTINE 2 JENNA JENNA ECG W/LEAST 12 LDS I&R ONLY CT THORAX 69254 LUCY LUCY W/O 2 [facility] CONTRAST INC INC MATERIAL 3D 27855 [place] [facility] RENDERING 2 MEDICAL EMY IMAGING W/INTERP& ASS POSTPROC DIFF WORK STATION PRTBLE E0431 MILDRED BARBERRELL GASEOUS 2 HOME HOME O2 SYS MEDICAL MEDICAL RENT; EQUIPME EQUIPME FLWMTR HUMIDFR&M ASK PRTBLE E0431 MILDRED [place] GASEOUS 2 HOME HOME O2 SYS MEDICAL MEDICAL RENT; EQUIPME EQUIPME FLWMTR HUMIDFR&M ASK SPMTRY 18744 LUCY AYALA W/VC 2 [facility] EXPIRATOR INC INC Y ALFREDO W/WO MXML VOL VNTJ PRTBLE E0431 MILDRED [place] GASEOUS 2 HOME HOME O2 SYS MEDICAL MEDICAL RENT; EQUIPME EQUIPME FLWMTR HUMIDFR&M ASK PRTBLE E0431 MILDREDTEJINDER BARBERRELL GASEOUS 2 HOME HOME O2 SYS MEDICAL MEDICAL RENT; EQUIPME EQUIPME FLWMTR HUMIDFR&M ASK RADIOLOGI 48066 ERIKA JAMES C EXAM 2 DON DON CHEST 2 VIEWS FRONTAL&L ATERAL CT THORAX 67356 [place] [facility] 2 MEDICAL EMY W/CONTRAS IMAGING T ASS MATERIAL COMPREHEN 85533 COMBINED COMBINED SIVE 2 PHYSICIAN PHYSICIAN METABOLIC S LA S LA PANEL BLOOD 31869 COMBINED COMBINED COUNT 2 PHYSICIAN PHYSICIAN COMPLETE S LA S LA AUTO&AUTO DIFRNTL WBC LIPID 59115 COMBINED COMBINED PANEL 2 [place]YSIC[place] [address] COMBINED COMBINED PROSTATE 2 PHYSICIAN PHYSICIAN SPECIFIC [...] O2 SYS MEDICAL MEDICAL RENT; EQUIPME EQUIPME [facility] HUMIDFR&M ASK PRTBLE E0431 MILDRED LEVY GASEOUS 1 HOME HOME O2 SYS MEDICAL MEDICAL RENT; EQUIPME EQUIPME [facility] HUMIDFR&M ASK O2 CONC 1 E1390 MILDRED [facility] 1 HOME HOME 85%/>02 MEDICAL MEDICAL CONC AT EQUIPME EQUIPME [facility] FLW RATE O2 CONC 1 E1390 [place] HOME MED HOME MED 85%/>02 EQUIP. L EQUIP. L CONC AT [facility] FLW RATE PRTBLE E0431 MILDRED LEVY GASEOUS 1 HOME MED HOME MED O2 SYS EQUIP. L EQUIP. L RENT; [facility] HUMIDFR&M ASK PRTBLE E0431 MILDRED LEVY GASEOUS 1 HOME MED HOME MED O2 SYS EQUIP. L EQUIP. L RENT; [facility] HUMIDFR&M ASK O2 CONC 1 E1390 MILDRED [facility] 1 HOME MED HOME MED 85%/>02 EQUIP. L EQUIP. L CONC AT [facility] FLW RATE O2 CONC 1 E1390 MILDRED [facility] 1 HOME MED HOME MED 85%/>02 EQUIP. L EQUIP. L CONC AT [facility] FLW RATE PRTBLE E0431 MILDRED LEVY GASEOUS 1 HOME MED HOME MED O2 SYS EQUIP. L EQUIP. L RENT; [facility] HUMIDFR&M [facility] PRTBLE E0431 MILDRED LEVY GASEOUS 1 HOME MED HOME MED O2 SYS EQUIP. L EQUIP. L RENT; [facility] HUMIDFR&M ASK O2 CONC 1 E1390 MILDRED [facility] 1 HOME MED HOME MED 85%/>02 EQUIP. L EQUIP. L CONC AT [facility] FLW RATE O2 CONC 1 E1390 MILDRED [facility] 1 HOME MED HOME MED 85%/>02 EQUIP. L EQUIP. L CONC AT [facility] FLW RATE PRTBLE E0431 MILDRED LEVY GASEOUS 1 HOME MED HOME MED O2 SYS EQUIP. L EQUIP. L RENT; [facility] HUMIDFR&M ASK PRTBLE E0431 MILDRED [place] GASEOUS 0 HOME MED HOME MED O2 SYS EQUIP. L EQUIP. L RENT; [facility] HUMIDFR&M ASK O2 CONC 1 E1390 [place] 0 HOME MED HOME MED 85%/>02 EQUIP. L EQUIP. L CONC AT [facility] FLW RATE O2 CONC 1 E1390 [place] 0 HOME MED HOME MED 85%/>02 EQUIP. L EQUIP. L CONC AT [facility] FLW RATE PRTBLE E0431 MILDRED [place]RE[place] GASEOUS 0 HOME MED HOME MED O2 SYS EQUIP. L EQUIP. L RENT; FLWORR HUMIDFR&M ASK PRTBLE E0431 MILDRED [place] GASEOUS 0 HOME MED HOME MED O2 SYS EQUIP. L EQUIP. L RENT; [facility] HUMIDFR&M ASK O2 CONC 1 E1390 [place] 0 HOME MED HOME MED 85%/>02 EQUIP. L EQUIP. L CONC AT [facility] FLW RATE O2 CONC 1 E1390 [place] 0 HOME MED HOME MED 85%/>02 EQUIP. L EQUIP. L CONC AT [facility] FLW RATE PRTBLE E0431 MILDRED MILDRED GASEOUS 0 HOME MED HOME MED O2 SYS EQUIP. L EQUIP. L RENT; [facility] HUMIDFR&M ASK VIRUS 94989 [facility] CENTRIFUG 0 Y Y E [facility] ID IMFLUOR STAIN EA CULTURE 31576 [facility] FUNGI 0 Y Y DEFINITIV [facility] E ID EACH ORGANISM YEAST SMR PRIM 29737 [facility] SRC 0 Y Y GRAM/GIEM [facility] SA STAIN BCT FUNGI/VAHID L INJECTION J2250 [facility] 0 Y Y MID[place]OLAM [facility] HCL PER 1 MG CULTURE 97784 [facility] FNGI 0 Y Y MOLD/YEAS [facility] T PRSMPTV OTH XCPT BLOOD SPECIAL 93477 [facility] STAIN 0 Y Y GROUP 1 [facility] MICROORGA NISMS I&R BRONCHOSC 93465 [facility] OPY 0 Y Y W/[facility]ANS[facility] HOSPITAL ONCHIAL LUNG BX 1 LOBE IAADI 20246 [facility] PNEUMOCUS 0 Y Y TIS [facility] CARINII CULTURE 96827 [facility] TUBERCLE/ 0 Y Y OTH [facility] ACID-FAST BACILLI ANY ISOL SMR PRIM 23454 [facility] SRC 0 Y Y FLUORESCE [facility] NT&/AFS BCT FNGI PARASIT TISS FRED 64849 [facility] SLIDE 0 Y Y [facility] SKN/HR/NL S FNGI/ECTO PARASIT CUL BACT 94770 [facility] XCPT 0 Y Y URINE [facility] BLOOD/STO OL AEROBIC ISOL RADIOLOGI 66152 [facility] C 0 Y [facility] ON CHEST S[place]IEW FRONTAL BRNCHSC 89831 [facility] W/BRNCL 0 Y Y ALVEOLAR [facility] LAVAGE INJECTION J3010 [facility] FENTANYL 0 Y Y CITRATE [facility] 0.1 MG CELL 11167 [facility] COUNT 0 Y Y MISC BODY [facility] FLUIDS W/DIFFERE NTIAL COUNT IADNA NOS 54904 [facility] 0 Y Y AMPLIFIED [facility] PROBE TQ EACH ORGANISM VIRUS 59440 [facility] TISS CUL 0 [facility] ON CYTOPATHI C EFFECT CONCENTRA 86371 [facility] TION 0 Y Y INFECTIOU [facility] S AGENTS CYTP EVAL 30178 [facility] FINE 0 Y Y NEEDLE [facility] ASPIRATE INTERP & REPORT CYTP FINE 56324 [facility] NDL 0 Y Y ASPIRATE [facility] IMMT CYTOHIST STD DX 1ST [place] [address] [facility] SURG 0 Y Y PATHOLOGY [facility] GROSS&JESS ROSCOPIC EXAM BRONCHOSC 02881 [facility] OPY 0 Y Y NEEDLE [facility] TRACHEA MAIN STEM&/BRO N O2 CONC 1 E1390 [place] 0 HOME MED HOME MED 85%/>02 EQUIP. L EQUIP. L CONC AT [facility] FLW RATE PRTBLE E0431 MILDRED MILDRED GASEOUS 0 HOME MED HOME MED O2 SYS EQUIP. L EQUIP. L RENT; [facility] HUMIDFR&M ASK RADEX 92795 [place] [facility] ESOPHAGUS 0 MEDICAL EMY IMAGING ASS PHLEBOTOM 86241 COMBINED COMBINED Y 0 PHYSICIAN PHYSICIAN THERAPEUT S LA S LA IC SEPARATE PROCEDURE DUP-SCAN 54812 [place] [facility] XTR VEINS 0 MEDICAL EMY COMPLETE IMAGING ASS BILATERAL STUDY COLLECTIO 69505 [facility]UC[facility] N VENOUS 0 [facility] BLOOD INC INC VENIPUNCT URE COMPREHEN 33488 [facility] SIVE 0 [facility] METABOLIC INC INC PANEL PULMONARY 53397 [place] [facility] STRESS 0 MEDICAL JAM TESTING SERV SIMPLE FOUNDATIO BLOOD 19895 [facility] COUNT 0 [facility] COMPLETE INC INC AUTO&AUTO DIFRNTL WBC BRNCDILAT 97271 [facility] RSPSE 0 [facility] SPMTRY INC INC PRE&POST- BRNCDILAT ADMN CT THORAX 78634 [place] NE[facility] W/O 0 MEDICAL KEY CONTRAST IMAGING MATERIAL ASS COMPREHEN 90607 COMBINED COMBINED SIVE 0 PHYSICIAN PHYSICIAN METABOLIC S LAB S LAB PANEL COLLECTIO 74713 COMBINED COMBINED N VENOUS 0 PHYSICIAN PHYSICIAN BLOOD S LAB S LAB VENIPUNCT URE 3D 13893 [place] [facility] RENDERING 0 MEDICAL KEY IMAGING W/INTERP& ASS POSTPROC DIFF WORK STATION RADIOLOGI 00450 [place] [facility] C EXAM 0 MEDICAL EMY CHEST 2 IMAGING VIEWS ASS FRONTAL&L ATERAL PRTBLE E0431 MILDRED MILDRED GASEOUS 0 HOME MED HOME MED O2 SYS EQUIP. EQUIP. RENT; [facility] FLWORR HUMIDFR&M ASK O2 CONC 1 E1390 [place] 0 HOME MED HOME MED 85%/>02 EQUIP. EQUIP. CONC AT [facility] FLW RATE INJECTION J1940 ERIKA JAMES, 0 DON R DON R FUROSEMID E UP TO 20 MG O2 CONC 1 E1390 [place] 0 HOME MED HOME MED 85%/>02 EQUIP. EQUIP. CONC AT [facility] FLW RATE ECG 53293 ERIKA JAMES, ROUTINE 0 DON R DON R ECG W/LEAST 12 LDS W/I&R RADIOLOGI 87382 ERIKA JAMES C EXAM 0 DON R DON R CHEST 2 VIEWS FRONTAL&L ATERAL PRTBLE E0431 MILDRED LEVY GASEOUS 0 HOME MED HOME MED O2 SYS EQUIP. EQUIP. RENT; [facility] FLWMTR HUMIDFR&M ASK RADIOLOGI 03416 ERIKA JAMES C 0 DON R DON R EXAMINATI ON CHEST SINGLE VIEW [facility] 37781 ERIKA JAMES, DISCHARGE 0 DON R DON R DAY MANAGEMEN T 30 MIN/< SBS 15604 [facility] 0 DON R DON R CARE/DAY 25 MINUTES RADIOLOGI 19272 [place] NE[place] EXAM 0 MEDICAL JANE P CHEST 2 IMAGING VIEWS ASSOCIATE FRONTAL&L S ATERAL SBSQ 15421 [facility] 0 DON R DON R CARE/DAY 25 [facility]ES [facility] 439[facility] 0 DON R DON R CARE/DAY [address] THORAX 89034 [place] [facility], 0 MEDICAL SHASHI W/CONTRAS IMAGING T ASSOCIATE MATERIAL S 3D 98021 [place] [facility], RENDERING 0 MEDICAL SHASHI IMAGING W/INTERP& ASSOCIATE POSTPROC S DIFF WORK STATION SBS 56398 [facility] 0 DON R DON R CARE/DAY 25 MINUTES SBSQ 94988 [facility] 0 DON R DON R CARE/DAY 25 MINUTES RADIOLOGI 96365 ERIKA JAMES C 0 DON R DON R EXAMINATI ON CHEST SINGLE VIEW FRONTAL INITIAL 91639 [facility] DON R CARE/DAY 50 MINUTES RADIOLOGI 13696 Kristy OROSCO EXAM 0 MEDICAL SHASHI CHEST 2 IMAGING VIEWS ASSOCIATE FRONTAL&L S ATERAL OPHTH 11832 [facility] 9 DONTE A DONTE A XM&EVAL COMPRHNSV ESTAB PT 1/> SCANNING 87854 RETINA & NINI, OPHTHALMI 9 VITREOUS CALLIE W C IMAGING ASSOCIATE S O POSTERIOR SGM UNI OPHTH 04310 RETINA & NINI, MEDICAL 9 VITREOUS CALLIE W XM&EVAL ASSOCIATE INTERMEDI S O ATE ESTAB PT INJECTION J1040 ERIKA JAMES, 8 DON R DON R METHYLPRE DNISOLONE ACETATE 80 MG SCANNING 33499 RETINA & NINI, OPHTHALMI 8 VITREOUS CALLIE W C IMAGING ASSOCIATE S O POSTERIOR SGM UNI OPHTH 47522 RETINA & NINI, MEDICAL 8 VITREOUS CALLIE W XM&EVAL ASSOCIATE INTERMEDI S O ATE ESTAB PT INJECTION J1040 ERIKA JAMES, 8 DON R DON R METHYLPRE DNISOLONE ACETATE 80 MG OPHTH 35498 [facility] 8 DONTE A DONTE A XM&EVAL COMPRHNSV ESTAB PT 1/> SCANNING 82235 RETINA & NINI, OPHTHALMI 8 VITREOUS CALLIE W C IMAGING ASSOCIATE S O POSTERIOR SGM UNI OPHTH 08763 RETINA & NINI, MEDICAL 8 VITREOUS CALLIE W XM&EVAL ASSOCIATE INTERMEDI S O ATE ESTAB PT INJECTION J1040 ERIKA JAMES, 8 DON R DON R METHYLPRE DNISOLONE ACETATE 80 MG RADIOLOGI 97628 ERIKA JAMES EXAM 8 DON R DON R CHEST 2 VIEWS FRONTAL&L ATERAL SCANNING 72435 RETINA & RETINA & OPHTHALMI 8 VITREOUS VITREOUS C IMAGING ASSOCIATE ASSOCIATE S O S O POSTERIOR SGM UNI OPHTH 66039 [facility] & RETINA & MEDICAL 8 VITREOUS VITREOUS XM&EVAL ASSOCIATE ASSOCIATE INTERMEDI S O S O ATE ESTAB PT OPHTH 74898 [facility] & [facility] & MEDICAL 8 VITREOUS VITREOUS XM&EVAL ASSOCIATE ASSOCIATE INTERMEDI S O S O ATE ESTAB PT SCANNING 28449 RET[facility] & RETINA & OPHTHALMI 8 VITREOUS VITREOUS C IMAGING ASSOCIATE ASSOCIATE S O S O POSTERIOR SGM UNI INJECTION J1100 ERIKA JAMES, 8 DON R DON R DEXAMETHO SONE SODIUM PHOSPHATE 1 MG Encounters Encounter Start End Date Code Location Performer Type Date OFFICE 93714 [facility] OUT[facility] 7 7 PHYSICIAN T VISIT S GROUP 25 MINUTES [facility]OSPITAL LUC[facility] - 7 7 [facility] T OFFICE 84175 [facility] 7 7 PHYSICIAN T VISIT S GROUP 40 MINUTES OFFICE 08565 [facility]PATI[facility] 7 7 [facility]ES [facility] 96601 [facility] 7 Y OF CK T VISIT [place] 25 HOSPI MINUTES OFFICE 08017 A [facility] OUTPATIEN 7 7 PILAR [facility]LEITEZ T VISIT [facility] 15 MINUTES OFFICE 99852 [facility] OUTPATI[facility] 7 7 [facility] T VISIT [facility] 15 MINUTES [facility]OSPITAL LUCY - 7 7 [facility] INPATIENT INC OFFICE 98816 A C [facility] OUTPATIEN 7 7 PILAR [facility]LEITEZ T VISIT [facility] 15 MINUTES OFFICE 20934 A [facility] OUTPATIEN 7 7 PILAR PLEITEZ T VISIT PSC 15 MINUTES OFFICE 55265 [facility] OUTPATIEN 6 6 MEDICAL JAM T VISIT [facility] 25 FOUNDATIO MINUTES [facility] LUCY - 6 6 [facility] OUTPATIEN INC T OFFICE 69897 [facility] OUTPATI[facility] 6 6 PHYSICIAN RITA T VISIT S GROUP 10 MINUTES HOSPITAL LUCY - 6 6 [facility] OUTPATIEN INC T OFFICE 42023 [facility] OUTPATIEN 6 6 [facility] 10 P MINUTES OFFICE [id number] A Kristy ROY OUTPATIEN 6 6 PILAR PLEITEZ T VISIT PSC 15 MINUTES OFFICE 02662 [place] OUTPATIEN 6 6 MEDICAL JAM T VISIT SERV 15 FOUNDATIO MINUTES N OFFICE 12757 [facility] ALLRAN JR OUTPATIEN 6 6 PHYSICIAN RITA T VISIT S GROUP 15 MINUTES OFFICE 41132 LUC[facility] EVAN OUTPATIEN 6 6 [facility] 20 HOSPITAL MINUTES HOSPITAL LUCY - 6 6 [facility] OUTPATI[facility] INC T OFFICE 35045 [facility] OUTPATIEN 6 6 PHYSICIAN RITA T NEW 45 S GROUP MINUTES HOSPITAL LUCY - 6 6 [facility] OUTPATIEN INC T OFFICE 06867 [place] OUTPATIEN 6 6 MEDICAL JAM T VISIT SERV 25 FOUNDATIO MINUTES N OFFICE 58929 A Kristy ROY OUTPATIEN 6 6 PILAR PLEITEZ T VISIT PSC 15 MINUTES OFFICE 82426 [place] OUTPATIEN 6 6 MEDICAL JAM T VISIT SERV 25 FOUNDATIO MINUTES N EMERGENCY 93447 [facility] DEPT 6 6 Y OF MADALYN VISIT [facility] H[facility]VERITY& THREAT [facility] LUCY - 6 6 [facility] OUTPATIEN INC T OFFICE 23964 A Kristy WEST OUTPATIEN 6 6 PILAR PLEITEZ T VISIT PSC 15 MINUTES OFFICE 43651 A Kristy WEST OUTPATIEN 6 6 PILAR PLEITEZ T VISIT PSC 15 MINUTES OFFICE 19115 ELIO POLLOCK OUTPATIEN 6 6 MEDICAL JAM T VISIT SERV 40 FOUNDATIO MINUTES N HOSPITAL LUCY - 6 6 [facility] INPATIENT [facility] LUCY - 6 6 [facility] OUTPATIEN INC OFFICE 51594 ELIO POLLOCK OUTPATIEN 6 6 MEDICAL T VISIT SERV 25 FOUNDATIO MINUTES N OFFICE 70867 ELIO DODSONPOLLOCK OUTPATIEN 6 6 MEDICAL JAM T VISIT SERV 15 FOUNDATIO MINUTES [facility] LUCY [facility] 5 5 [facility] OUTPATIEN [facility] LUCY - 5 5 [facility]EN [facility] LUCY - 5 5 [facility] OUTPATIEN [facility] OFFICE 69030 A C FIELD AMB OUTPATIEN 5 5 PILAR PLEITEZ T VISIT PSC 15 MINUTES OFFICE 13337 A C FIELD AMB OUTPATIEN 4 4 PILAR PLEITEZ T VISIT PSC 15 MINUTES HOSPITAL LUCY - 4 4 [facility] OUTPATIEN [facility] LUCY - 4 4 [facility] OUTPATIEN [facility] LUCY - 4 4 [facility]PATI[facility] LUC[facility] - 4 4 [facility] LUCY - 4 4 [facility]PATI[facility] LUCY - 4 4 [facility]PATIEN [facility] LUCY - 4 4 [facility] OUTPATIEN [facility] OFFICE 73813 FIELD AMB FIELD AMB OUTPATIEN 4 4 T VISIT 15 MINUTES OFFICE 16658 FIELD AMB FIELD AMB OUTPATIEN 3 3 T VISIT 15 MINUTES OFFICE 87152 A C FIELD AMB OUTPATIEN 3 3 PILAR PLEITEZ T NEW 30 PSC MINUTES OFFICE 67186 JAMES JAMES OUTPATIEN 3 3 DON DON T VISIT 15 MINUTES OFFICE 96373 ERIKA MELENDREZS OUTPATIEN 3 3 DON DON T VISIT 15 MINUTES HOSPITAL LUCY - 3 3 [facility] LUCY - 2 2 [facility]EN [facility] OFFICE 80462 ERIKA MELENDREZS OUTPATIEN 2 2 DON DON T VISIT 15 MINUTES HOSPITAL LUCY [facility] 2 2 [facility] LUCY - 2 2 [facility]PATI[facility] LUCY - 2 2 [facility] OUTPATIEN [facility] OFFICE 17568 ERIKA MELENDREZS OUTPATIEN 2 2 DON DON T VISIT 15 MINUTES OFFICE 29749 ERIKA MELENDREZS OUTPATIEN 1 1 DON DON T VISIT 15 MINUTES OFFICE 89350 ERIKA MELENDREZS OUTPATIEN 1 1 DON DON T VISIT 15 MINUTES OFFICE 90533 ERIKA MELENDREZS OUTPATIEN 1 1 DON DON T VISIT 15 MINUTES OFFICE 98430 ERIKA MELENDREZS OUTPATIEN 1 1 DON DON T VISIT 15 MINUTES [facility] - 0 0 [facility] - 0 0 [facility]UCY - 0 0 [facility] OFFICE 41668 JAMESERIKA VELASCO OUTPATIRYLEE 0 0 DON R DON R T VISIT 15 MINUTES OFFICE 58420 ERIKA JAMES OUTPATIRYLEE 0 0 DON R DON R T VISIT 25 MINUTES OFFICE [id number] ERIKA JAMES OUTPATIRYLEE 0 0 DON R DON R T VISIT 15 MINUTES OFFICE [id number] ERIKA JAMES OUTPATIEN 8 8 DON R DON R T VISIT 15 MINUTES OFFICE [id number] ERIKA JAMES OUTPATIEN 8 8 DON R DON R T VISIT 15 MINUTES OFFICE [id number] ERIKA JAMES OUTPATIEN 8 8 DON R DON R T VISIT 15 MINUTES OFFICE [id number] ERIKA JAMES OUTPATIEN 8 8 DON R DON R T VISIT 15 MINUTES OFFICE [id number] ERIKA JAMES OUTPATIEN 8 8 DON R DON R T VISIT 15 MINUTES
--- OUTSIDE RECORDS SUMMARY | 2016-12-05 20:06 | External Medical Summary Rpt ---
Author Author , SOUMYA PEREIRA Address Unknown Phone [email or web address] Immunization Name Date Rout CVX Reac Dose [...]
--- OUTSIDE RECORDS SUMMARY | 2016-12-05 20:06 | External Medical Summary Rpt ---
Author Author , SOUMYA PEREIRA Address Unknown Phone [email or web address] Immunization Name Date Rout CVX Reac Dose [...]
--- OUTSIDE RECORDS SUMMARY | 2016-12-05 20:08 | External Medical Summary Rpt ---
Author Author [employer], [employer] Organization [employer] Address Unknown Phone Unavailable Results Fibrin D-dimer FEU [Mass/volume] in Platelet poor plasma Observa Value Referen Units Interpr Notes Date tion ce etation Range IS PATIENT ON ANTICOAGULANTS? N PTT RESULTS MUST BE CALLED IF PT ON HEPARIN!!! Y Fibrin 0 - 400 ng/mL High Dec 05 D-dimer alert NOTIFICAT 2016 6:05 FEU ION PM [Mass/vol RESULT ume] in SEMAJ.C Platelet REThe poor D-Dimer plasma values are presented in units of mass(ng/m L) ofD-Dimer units(DDU ).This test has been FDA approved as an aid in the assessmen tand evaluatio n of suspected DIC, and thromboem bolic eventsinc luding PE and DVT. However, it does not have approvalf or cut-off values for the exclusion of these condition s. INR in Blood by Coagulation assay Observa Value Referen Units Interpr Notes Date tion ce etation Range IS PATIENT ON ANTICOAGULANTS? N PTT RESULTS MUST BE CALLED IF PT ON HEPARIN!!! 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 N PTT RESULTS MUST BE CALLED IF PT ON HEPARIN!!! Y Activated 23.6 - SECONDS Normal No Nov 16 partial 34.0 informati 2017 6:05 thrombpla on in PM stin time source (aPTT) data in Platelet poor plasma by Coagulati on assay CBC W Auto Differential panel in Blood Observa Value Referen Units Interpr Notes Date tion ce etation Range Basophils 0 - 0.2 K/MM3 Normal No Nov 16 informati 2017 6:05 [#/volume on in PM ] in source Blood by data Automated count Basophils 0.1 - 2.0 % Normal No Nov 16 /100 informati 2017 6:05 leukocyte on in PM s in source Blood by data Automated count Eosinophi 0.0 - 0.4 K/mm3 High No Nov 16 ls informati 2017 6:05 [#/volume on in PM ] in source Blood by data Automated count Eosinophi 0.1 - % Normal No Dec 05 ls/100 12.0 informati 2017 6:05 leukocyte on in PM s in source Blood by data Automated count Granulocy 1.3 - 8.0 K/mm3 High No Nov 16 anisa informati 2017 6:05 [#/volume on in PM ] in source Blood by data Automated count Granulocy 37.0 - % Normal No Dec 05 anisa/100 80.0 informati 2017 6:05 leukocyte on in PM s in source Blood by data Automated count Hematocri 42.0 - % Normal No Dec 05 t [Volume 52.0 informati 2017 6:05 on in PM Fraction] source of Blood data Hemoglobi 14.1 - g/dL Low No Dec 05 n 18.0 informati 2017 6:05 [Mass/vol on in PM ume] in source Blood data Lymphocyt 0.7 - 4.5 K/mm3 Normal No Dec 05 es informati 2017 6:05 [#/volume on in PM ] in source Unspecifi data ed specimen by Automated count Lymphocyt 10 - 50 % Normal No Dec 05 es informati 2016 6:05 [#/volume on in PM ] in source Unspecifi data ed specimen by Automated count Erythrocy 27 - 31.2 pg Low No Dec 05 te mean informati 2017 6:05 corpuscul on in PM ar source hemoglobi data n [Entitic mass] Erythrocy 31.8 - g/dl Normal No Dec 05 te mean 35.4 informati 2016 6:05 corpuscul on in PM ar source hemoglobi data n concentra tion [Mass/vol ume] by Automated count Erythrocy 82.2 - fl Normal No Dec 05 te mean 97.8 informati 2016 6:05 corpuscul on in PM ar volume source [Entitic data volume] by Automated count Monocytes 0.1 - 1.0 K/mm3 Normal No Dec 05 inform2016 6:05 [#/volume on in PM ] in source Blood by data Automated count Monocytes 1.7 - 9.3 % Normal No Dec 05 informati 2016 6:05 leukocyte on in PM s in source Blood by data Automated count Platelet 7.4 - fl Normal No Dec 05 mean 10.4 informati 2016 6:05 volume on in PM [Entitic source volume] data in Blood by Automated count Platelets 142 - 424 K/mm3 Normal No Dec 05 inform2016 6:05 [#/volume on in PM ] in source Blood data Erythrocy 4.6 - 6.2 M/mm3 Normal No Dec 05 anisa informati 2016 6:05 [#/volume on in PM ] in source Amniotic data fluid Erythrocy 11.5 - % Normal No Dec 05 te 17.5 informati 2016 6:05 distribut on in PM ion width source [Entitic data volume] by Automated count Leukocyte 4.8 - K/MM3 High No Dec 05 s 10.8 informati 2016 6:05 [#/volume on in PM ] in source Blood data Differential panel, method unspecified - Observa Value Referen Units Interpr Notes Date tion ce etation Range Basophils 0 - 1 % Normal No Dec 05 informati 2016 6:05 leukocyte on in PM s in source Blood by data Automated count Eosinophi 0 - 3 % Normal No Dec 05 ls informati 2016 6:05 leukocyte on in PM s in source Blood by data Manual count LYMPH 35 10 - 50 % Normal Dec 052016 tion in 6:05 PM source data Monocytes 2 - 9 % Normal Dec 05 informati 2016 6:05 leukocyte on in PM s in source Blood by data Automated count Platele NORMAL No No No No Dec 05 ts informa informa inform inform2016 [Presen tion in tion in tion in tion in 6:05 PM ce] in source source source source Blood data data data data by Light microsc opy Neutrophi 42 - 76 % Normal No Dec 05 ls informati 2016 6:05 [#/volume on in PM ] in source Blood by data Automated count Cells No #CELLS No No Dec 05 Counted informati informati informati 2016 6:05 Total [#] on in on in on [...] - 2.0 % Normal No Nov 16 /100 informati [...] ML/MIN No REFERENCE Nov 16 informati RANGE: 2017 5:35 glomerula on in >60 AM r source ML/MIN/1. filtratio data 73 SQUARE n rate METERSIf (GF this patient is -A merican, then multiply theresult by 1.210. Glucose 74 - 106 mg/dL Normal No Nov 16 [Mass/vol informati 2016 5:35 ume] in on in AM Serum or source Plasma data Potassium 3.5 - 5.1 mmoL/L Normal No Nov 16 inform2016 5:35 [Moles/vo on in AM lume] in source Serum or data Plasma Sodium 136 - 145 mmoL/L Normal No Nov 16 [Moles/vo informati 2016 5:35 lume] in on in AM Serum or source Plasma data CBC W Auto Differential panel in Blood Observa Value Referen Units Interpr Notes Date tion ce etation Range Basophils 0 - 0.2 K/MM3 Normal No Nov 15 inform2016 2:30 [#/volume [...] 0.1 - % Normal No Nov 15 ls/100 12.0 informati 2016 2:30 leukocyte on in PM s in source Blood by data Automated count Granulocy 1.3 - 8.0 K/mm3 High No Nov 15 anisa informati 2016 2:30 [#/volume on in PM ] in source Blood by data Automated count Granulocy 37.0 - % High No Nov 15 anisa/100 80.0 informati 2016 2:30 leukocyte on in PM [...] No Nov 15 te mean 97.8 informati 2017 2:30 corpuscul on in PM ar volume source [Entitic data volume] by Automated count Monocytes 0.1 - 1.0 K/mm3 Normal No Nov 15 informati 2017 2:30 [#/volume on in PM ] in source Blood by data Automated count Monocytes 1.7 - 9.3 % Normal No Nov 15 /100 informati 2017 2:30 leukocyte on in PM s in source Blood by data Automated count Platelet 7.4 - fl Normal No Nov 15 mean 10.4 informati 2017 2:30 volume on in PM [Entitic source volume] data in Blood by Automated count Platelets 142 - 424 K/mm3 Normal No Nov 15 informati 2017 2:30 [#/volume on in PM ] in source Blood data Erythrocy 4.6 - 6.2 M/mm3 High No Nov 15 anisa informati 2017 2:30 [#/volume on in PM ] in source Amniotic data fluid Erythrocy 11.5 - % Normal No Nov 15 te 17.5 informati 2017 2:30 distribut on in PM ion width source [Entitic data volume] by Automated count Leukocyte 4.8 - K/MM3 High No Nov 15 s 10.8 alert informati 2016 2:30 [#/volume on in PM [...] 9 % Normal No Nov 15 /100 inform2016 2:30 leukocyte on in PM s in [...] 4.5 K/mm3 Normal No Nov 09 es 2016 [#/volume on in 10:03 AM ] [...] No No No Nov 09 ts informa inform inform2016 [Presen tion in tion in tion in tion in 10:03 ce] in source source source source AM Blood data data data data by Light microsc opy Neutrophi 42 - 76 % High No Nov 09 ls 2016 [#/volume on in 10:03 AM ] in source Blood by data Automated count Cells No #CELLS No No Nov 09 Counted informati informati inform2016 Total [#] on in on in on [...] Normal No Nov 05 t [Volume 52.0 ati 2016 6:30 on in AM Fraction] source [...] No Nov 05 te mean 97.8 informati 2016 6:30 corpuscul on in AM ar volume [...] U/L Normal No Nov 05 phosphata informati 2017 6:30 se on in AM [Enzymati source [...] 4.6 - 6.2 M/mm3 Normal No Oct 14 anisa informati 2016 6:15 [#/volume on in [...] 2 - 9 % Normal No Nov 02 /100 informati [...] formula Estimated >60 ML/MIN No REFERENCE Oct 14 informati RANGE: 2017 6:15 glomerula on in >60 AM r source ML/MIN/1. filtratio data 73 SQUARE n rate METERSIf (GF this patient is -A merican, then multiply theresult by 1.210. Glucose 74 - 106 mg/dL Normal No Oct 14 [Mass/vol informati 2017 6:15 ume] in on in AM Serum or source Plasma data Potassium 3.5 - 5.1 mmoL/L Normal No Oct 14 informati 2017 6:15 [Moles/vo on in AM [...] Normal No Nov 01 gravity 1.030 informati inform2016 of Urine on in on in 12:15 [...] - 0.2 K/MM3 Normal No Oct 31 inform2016 9:52 [#/volume on in PM ] in source Blood by data Automated count Basophils 0.1 - 2.0 % Normal No Oct 31ati 2016 9:52 [...] No Oct 31 n 18.0 informati informati 2017 9:52 [Mass/vol on in on in PM ume] in source source Blood data data Lymphocyt 0.7 - 4.5 K/mm3 High No Oct 31 es informati 2016 9:52 [#/volume on in PM ] in source Unspecifi data ed specimen by Automated count Lymphocyt 10 - 50 % Normal No Oct 31 es informati 2017 9:52 [#/volume on in PM [...] No Oct 31 te mean 97.8 informati 2017 9:52 corpuscul on in PM ar volume source [Entitic data volume] by Automated count Monocytes 0.1 - 1.0 K/mm3 Normal No Oct 31 informati 2016 9:52 [#/volume on in PM ] in source Blood by data Automated count Monocytes 1.7 - 9.3 % Normal No Oct 31 / informati 2016 9:52 leukocyte on in PM [...] No Oct 31 s 10.8 alert informati 2016 9:52 [#/volume on in PM [...] 2 - 9 % Normal No Oct 31 /ati 2016 9:52 leukocyte on in PM s [...] #CELLS No No Oct 31 Counted informati informati informati 2016 9:52 Total [#] on in on [...] - 2.0 % Normal No Oct 27 / informati 2016 4:10 leukocyte on in AM s in source Blood by data Automated count Eosinophi 0.0 - 0.4 K/mm3 Normal No Oct 27 ls informati 2016 4:10 [#/volume on in AM ] in source Blood by data Automated count Eosinophi 0.1 - % Low Oct 27 ls/100 12.0 informati 2016 4:10 [...] Blood data Hemoglobi 14.1 - g/dL Low Oct 27 n 18.0 informati 2016 4:10 [...] count Erythrocy 27 - 31.2 pg Low Oct 27 te mean informati 2017 4:10 corpuscul on in AM ar source hemoglobi data n [Entitic mass] Erythrocy 31.8 - g/dl Low No Oct 27 te mean 35.4 informati 2017 4:10 corpuscul on in AM ar source [...] in source Blood by data Automated count [place]. No No No No Oct 27 [...] Normal No Oct 27 e 1.30 informati 2017 4:10 [Mass/vol on in AM ume] in source Serum or data Plasma Creatinin 50 - 200 ML/MIN Normal No Oct 27 e renal informati 2017 4:10 clearance on in AM source predicted [...] 5.1 mmoL/L Normal No Oct 27 informati 2017 4:10 [Moles/vo on in AM lume] in [...] 0.2 K/MM3 Normal No Oct 25 informati 2017 5:30 [...] K/mm3 Normal No Oct 25 es informati 2016 [...] 1.0 K/mm3 Normal No Oct 25 informati 2016 5:30 [#/volume on in AM ] in source Blood by data Automated count Monocytes 1.7 - 9.3 % Low No Oct 6 /100 informati 2016 5:30 leukocyte on in AM s in source Blood by data Automated count Platelet 7.4 - fl Normal No Oct 25 mean 10.4 inform2016 5:30 volume on in AM [Entitic source volume] data in Blood by Automated count Platelets 142 - 424 K/mm3 Normal No Oct 25 inform2016 5:30 [#/volume on in AM ] in source Blood data Erythrocy 4.6 - 6.2 M/mm3 Normal No Oct 25 anisa informati 2016 5:30 [#/volume on in AM ] in source Amniotic data fluid Erythrocy 11.5 - % Normal No Oct 25 te 17.5 informati 2016 5:30 distribut on in AM ion width source [Entitic data volume] by Automated count Leukocyte 4.8 - K/MM3 High No Oct 25 s 10.8 2016 5:30 [#/volume on in AM ] [...] - 0.2 K/MM3 Normal No Oct 24 informati 2016 2:35 [#/volume on in PM [...] 50 % Normal No Oct 24 es inform2016 2:35 [#/volume [...] Automated count Platelet 7.4 - fl Normal Oct 24 mean 10.4 2016 2:35 volume on in PM [Entitic source volume] data in Blood by Automated count Platelets 142 - 424 K/mm3 No Oct 24ati informati 2016 2:35 [#/volume [...] 0 - 1 % High No Oct 24 informati 2016 2:35 leukocyte on in PM s in source Blood by data Automated count Eosinophi 0 - 3 % High No Oct 24ati 2016 2:35 leukocyte on in PM s in source Blood by data Manual count LYMPH 34 10 - 50 % Normal No Oct 24 inform2016 tion in 2:35 PM source data Monocytes 2 - 9 % Normal No Oct 24 informati 2016 2:35 leukocyte on in PM s in source Blood by data Automated count Platele NORMAL No No No No Oct 24 ts informa informa informa informa 2016 [Presen tion in tion in tion in tion in 2:35 PM ce] in source source source source Blood data data data data by Light microsc opy Neutrophi 42 - 76 % Normal No Oct 24 ls informati 2016 2:35 [#/volume on in PM ] in source Blood by data Automated count Cells No #CELLS No No Oct 24 Counted informati informati informati 2016 2:35 Total [#] on in on in [...] 2016 2:35 Coagulati on in on in [id number] PM on assay source source CATION data [...] assay Observa Value Referen Units Interpr Notes etation Range IS PATIENT ON ANTICOAGULANTS? N [...] Units Interpr Notes Date ce etation Range Urea 7 - 18 mg/dL Normal No September 14 nitrogen informati 2016 [Mass/vol on in 12:22 PM ume] in source Serum or data Plasma CREATININE Observa Value Referen Units Interpr Notes Date ti ce etation Range Creatinin 0.70 - mg/dL Normal No September 14 e 1.30 informati 2017 [Mass/vol on in 12:22 PM ume] in source Serum or data Plasma Estimated >60 ML/MIN No REFERENCE September 14 informati RANGE: 2017 glomerula on in >60 12:22 PM r source ML/MIN/1. filtratio data 73 SQUARE n rate METERSIf (GF this patient is -A merican, then multiply theresult by 1.210.
--- OUTSIDE RECORDS SUMMARY | 2016-12-05 20:08 | External Medical Summary Rpt ---
[...] 2016 2:35 Coagulati on in on in [id number] PM on assay source source CATION data [...]
--- NOTE | 2016-12-05 20:50 | RADIOLOGY REPORT PS360 ---
CHEST-PORTABLE HISTORY: dyspnea ORDERING PHYSICIAN: Berto Duarte MD PATIENT AGE: 76 years COMPARISON: 11/16/2016 FINDINGS: Dual-chamber pacemaker is present. The heart size is unremarkable. Chronic interstitial changes are present there are chronic pleural thickening in the lower lungs on. There are chronic changes in the lower lobes with some superimposed increased density in the left lower lobe which may relate to superimposed pneumonia. Upright PA and lateral chest may be of further value. IMPRESSION: Chronic pleural parenchymal changes with possible superimposed infiltrate in the left lower lobe
[2016-12-05 21:36] VITALS: BP 113/83
[2016-12-05 22:09] VITALS: BP 120/70
[2016-12-05 22:20] VITALS: BP 130/71
[2016-12-05 23:02] VITALS: BP 130/81
[2016-12-05 23:34] LABS: URINE BILIRUBIN - DIPSTICK NEGATIVE (NEG); URINE BLOOD NEGATIVE (NEG)
[2016-12-05 23:48] LABS: URINE SQUAMOUS CELLS OCC #/hpf (OCC)
[2016-12-06] VITALS (14 sets, daily range): BP systolic 120–154; BP diastolic 64–84
--- NOTE | 2016-12-06 08:14 | HISTORY AND PHYSICAL REPORT ---
Demographics: Admit date: 12/05/16 Chief complaint: Chest pain and shortness of breath PRIMARY DIAGNOSIS: AFIB WITH RVR Allergies: Coded Allergies: No Known Allergies (10/26/16) History of present illness: History of present illness: 76-year-old male with recent history of hospitalizations for atrial fibrillation with rapid ventricular response is also status post pacemaker placement presented to the emergency department yesterday evening after experiencing sudden onset of palpitations with chest pain and shortness of breath at approximately 3:30 PM. On presentation patient was found to be in atrial fibrillation with rapid ventricular response and he was started on a Cardizem drip. Patient's heart rate was lowered in the emergency department and by the time he arrived in the stepdown unit it appears the patient was back into a paced rhythm with a pulse rate of 70. He has been maintained on a Cardizem drip overnight. In addition to the previous admission symptoms the patient also reports an episode 72 hours prior to presentation to the ER where he developed RIGHT hand weakness and numbness in the fingers of his RIGHT hand. He had difficulty picking up objects. Patient has known atrial fibrillation but has not been tolerant of anticoagulants due to recurring gastrointestinal bleeds. Past medical history: Family HX Family Hx Insignificant No Diabetes No CAD No Hypertension Yes Hyperlipidemia No Cancer No TB No Immunization HX DT/Tetanus 1-4 Years Ago Flu Refused Pneumonia Received In Past TB Test in last year No General CAD? Yes Angina: No [place]: Yes Hypertension? Yes Hyperlipidemia? Yes CHF? No DVT? No PE? No COPD? Yes Asthma? Yes Anemia? No GERD? No Gastric ulcers? No GI Bleed? No Hernia? No Thyroid Problems? No Hypothyroidism? No CVA? No Seizures? No Diabetes? No Renal Insuffiency? No UTI? No Stones? No BPH? No GB Disease: No Nephritic Syndrome? No Asplenia? No Hepatitis? No Sickle Cell Disease? No Arthritis? No Migraines? No Cataracts? Yes Glaucoma? No MRSA? No HIV? No TB? No Anxiety? No Depression? No Cancer? No More? Yes Additional hx: ATRIAL FIB Past Surgical HX Previous Surgery?Y HERNIA REPAIR 1959' LT MUSCLE ARM & LEG RIGHT KNEE SURGERY CATARACTS ON R EYE HERNIA 2016 CARDIAC PACER 10/25/16 Current home meds: Active Scripts Bisoprolol Fumarate 10 MG PO DAILY #30 TAB Ref 1 Prov: 11/19/16 HYDROCODONE/ACETAMINOPHEN (Hydrocodon-Acetaminoph 7.5-325) 1 TAB PO BID #60 TAB Prov: 11/19/16 Reported Medications Omeprazole (Omeprazole 20MG) 40 MG PO DAILY 30 Days Furosemide 40 MG PO BID #30 CETIRIZINE HCL (Cetirizine 10MG) 10 MG PO DAILYP PRN ALLERGIES UMECLIDINIUM BRM/VILANTEROL TR (Anoro Ellipta 62.5-25 Mcg INH) 1 POW IH DAILY Fluticasone Furoate (Arnuity Ellipta) 100 MCG IH DAILY NITROGLYCERIN (Nitrostat) 0.4 MG SL [id number] PRN CHEST PAIN Roflumilast (Daliresp) 500 MCG PO DAILY Aspirin (Aspirin EC) 81 MG PO DAILY 30 Days Potassium Chloride 10 MEQ PO DAILY 30 Days Cyclobenzaprine Hcl (Cyclobenzaprine 10MG) 10 MG PO DAILY TAMSULOSIN HCL (Tamsulosin 0.4MG) 0.4 MG PO QHS Digoxin (Digitek) 250 MCG PO DAILY Social Hx: Smoking HX Tobacco No Type Cigarettes Packs/day < 1 PACK Are you/the child exposed to second-hand smoke: No Alcohol Alcohol: No Hx of Drug Use Drug Use? No Patien't marital status is Patient's support system is fair Comment: Patient chooses to live in an air-conditioned house with his . This is been brought up in the past but the patient is not willing to pay for the increase in his electricity Bill that air conditioning would cost Review of systems: Constitutional see HPI. Respiratory see HPI. Cardiovascular see HPI Gastrointestinal/Abdominal no symptoms reported Genitourinary no symptoms reported. Musculoskeletal no symptoms reported. Neurological Yes: no symptoms reported. Exam: Lab data for last 24 hours: Laboratory Tests 12/06/16 0310: Creatine Kinase 18 L, CK-MB (CK-2) Rel Index 4.4 H, CK and CKMB Interp 0.8, Troponin I 0.03 12/05/16 2220: Urine Color YELLOW, Urine Appearance CLEAR, Urine pH 6.0, Ur Specific [place] 1.025, Urine Protein 1+ H, Urine Ketones NEGATIVE, Urine Blood NEGATIVE, Urine Nitrate NEGATIVE, Urine Bilirubin NEGATIVE, Urine Urobilinogen 0.2, Ur Leukocyte Esterase NEGATIVE, Urine WBC 3-5, Ur Squamous Epith Cells OCC, Amorphous Sediment OCC, Urine Bacteria 1+, Hyaline Casts 3-5, Urine Glucose NEGATIVE 12/05/162102: Creatine Kinase 17 L, CK-MB (CK-2) Rel Index 2.9, CK and CKMB Interp < 0.5, Troponin I 0.03 12/05/162010: Lactic Acid 1.2 12/05/161919: VBG pH 7.35, VBG Total CO2 24.0, VBG O2 Sat (Calc) 96 H, VBG Base Excess -2.3, Mixed VBG pCO2 43.0, Mixed VBG pO2 93.0 H, Mixed VBG HCO3 23.0 12/05/161804: Sodium 142, Potassium 3.7, Chloride 108 H, Carbon Dioxide 26, BUN 9, Creatinine 1.4 H, Estimated Creat Clear 61, Estimated GFR (MDRD) 49, Glucose 115 H, Calcium 7.8 L, Total Bilirubin 0.3, AST 9 L, ALT 11 L, Alkaline Phosphatase 138 H, Creatine Kinase 19 L, CK-MB (CK-2) Rel Index 2.6, CK and CKMB Interp < 0.5, Troponin I 0.02, B-Natriuretic Peptide 43, Total Protein 5.7 L, Albumin 2.5 L, Globulin 3.2, Albumin/Globulin Ratio 0.8 L, PT 10.6, INR 0.98, APTT 23.6, D-Dimer 620 *H, WBC 15.5 H, RBC 5.17, Hgb 13.9 L, Hct 42.6, MCV 82.3, RDW 16.4, Plt Count 191, MPV 8.6, Gran % 67.0, Gran # 10.4 H, Total Counted 100 , Lymphocytes % 23.9, Monocytes % 5.2, Eosinophils % 3.0, Basophils % 0.9, Neutrophils 59, Lymphocytes (Manual) 35, Lymphocytes # 3.7, Monocytes (Manual) 4 , Monocytes # 0.8, Eosinophils # 0.5 H, Eosinophils # (Manual) 1, Basophils # 0.1, Basophils # (Manual) 1, Platelet Estimate NORMAL, PUBS MCHC 32.7, MCH 26.9 L Microbiology 12/05 2010 BLOOD: Anaerobic Blood Culture - RECD 12/05 2010 BLOOD: Aerobic Blood Culture - RECD 12/06 2007 BLOOD: Anaerobic Blood Culture - RECD 12/06 2007 BLOOD: Aerobic Blood Culture - RECD Admission vital signs: 1ST Vital Signs Result Date Time Pulse Ox 97 12/05 1801 B/P 123/64 12/05 1801 O2 Flow Rate 15 12/05 1801 Temp 98.0 12/05 1801 Pulse 161 12/05 1801 Resp 22 12/05 1801 O2 Delivery OXYGEN 12/05 2136 Additional information: Patient appears at his baseline level of health. He is chronically ill- appearing. Oropharynx is moist. Lungs have rhonchi with expiratory wheezes. Expiratory wheezes are slightly more prominent than baseline. Heart has a regular rate and rhythm. Abdomen is soft. 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 Rapid atrial fibrillation 2. Right hand weakness 3. Chronic bronchitis with COPD (chronic obstructive pulmonary disease) Plan: Patient has been admitted and was placed on a Cardizem drip. He is back to a paced rhythm. Cardizem will be discontinued and he will be started on his bisoprolol and digoxin. Patient will also be given some IV fluids. Lasix will be held and he has actually been taken off these as an outpatient. Patient be given Xopenex nebs and Solu-Medrol for the next 24 hours for his wheezing CT scan of the head today to rule out stroke due to his RIGHT hand weakness and numbness at 0814
--- NOTE | 2016-12-06 09:56 | RADIOLOGY REPORT PS360 ---
CT HEAD-W/WO CONTRAST INDICATION: RIGHT HAND WEAKNES,THAT DEVELOPED 72 HOURS AGO ORDERING PHYSICIAN: Fletcher Stevenson MD PATIENT AGE: 76 years COMPARISON: None TECHNIQUE: Axial images are obtained without and with contrast. FINDINGS: No midline shift, mass effect, intracranial hemorrhage, or hydrocephalus is evident. No enhancing lesions. There is moderate periventricular and subcortical white matter hypoattenuation consistent with ischemic gliotic change from microvascular disease. No intra or extra-axial enhancing lesions or hematomas. 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 Neoplasm is considered. A large nasopharyngeal polyp is also a consideration. Consider ENT consult for further evaluation.. IMPRESSION: 1. No acute intracranial pathology. 2. Chronic ischemic gliotic changes. 3. 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 Neoplasm or large antrochoanal polyp is considered 4. There is no evidence of intracranial hemorrhage, focal mass, or acute territorial infarction. A negative CT does not exclude an acute CVA. A follow-up head CT or MRI is recommended if neurological symptoms persist
--- NOTE | 2016-12-06 11:32 | PHARMACY CLINIC NOTE ---
Patient Demographics Patient Demographics Admission date: 12/05/16 Date: 12/06/16 Time: 1131 Allergies Coded Allergies: No Known Allergies (10/26/16) HEIGHT- FT: 6 IN: 0.00 K.299 VTE General Information Labs: Laboratory Tests 12/05 1805 Coagulation PT (9.4 - 11.8 SECONDS) 10.6 INR (0.9 - 1.1) 0.98 APTT (23.6 - 34.0 SECONDS) 23.6 Hematology Hgb (14.1 - 18.0 g/dL) 13.9 L Hct (42.0 - 52.0 %) 42.6 Plt Count (142 - 424 K/mm3) 191 Disclaimer The following section includes nursing documentation that has been pulled in for pharmacy review. Patient's VTE score: 2 Patient's VTE Risk: VERY LOW RISK Clinical trial participant? No VTE prophylaxis [id number] VTE prophylaxis ordered? Yes Type of prophylaxis/treatment: KISHOR at 1131
--- NOTE | 2016-12-06 14:12 | CONSULT NOTE ---
Standard Demographics Patient Demo Date of Consultation: 12/06/16 Referring Provider: Fletcher Stevenson MD Reason for Consultation: A. fib with RVR, chest pain PRIMARY DIAGNOSIS: AFIB WITH RVR Problem list Problem list: 1. Chronic obstructive pulmonary disease/chronic bronchitis A. Chronic oxygen therapy B. History of tobacco use discontinued one year ago 2. Hypertension A. Echo, 08/2016, 1. Normal left ventricular size, mild concentric left ventricular hypertrophy, visually estimated ejection fraction 55% with no obvious regional wall motion abnormality, grade 1 diastolic dysfunction seen without tissue Doppler evidence of raised left atrial pressure. 2. Mild mitral and tricuspid regurgitation, calculated right ventricular systolic pressure 47 mmHg consistent with moderate pulmonary hypertension. 3. No significant pericardial effusion noted. 3. History of atrial fibrillation. A. History of gastrointestinal bleed on Xarelto therapy. B. On eliquis C. 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 Non-obstructive CAD A. Cardiac cath, 09/2016, mild CAD, normal LVEF, mild LVEDP and pulmonary HTN. History of present illness: History of present illness: 76-year-old male with recent history of hospitalizations for atrial fibrillation with rapid ventricular response is also status post pacemaker placement presented to the emergency department yesterday evening after experiencing sudden onset of palpitations with chest pain and shortness of breath at approximately 3:30 PM. On presentation patient was found to be in atrial fibrillation with rapid ventricular response and he was started on a Cardizem drip. Patient's heart rate was lowered in the emergency department and by the time he arrived in the stepdown unit it appears the patient was back into a paced rhythm with a pulse rate of 70. He has been maintained on a Cardizem drip overnight. In addition to the previous admission symptoms the patient also reports an episode 72 hours prior to presentation to the ER where he developed RIGHT hand weakness and numbness in the fingers of his RIGHT hand. He had difficulty picking up objects. Patient has known atrial fibrillation but has not been tolerant of anticoagulants due to recurring gastrointestinal bleeds. The above per Dr. Stevenson. Pt with recurrent episodes of A. fib with RVR and subsequent chest pains. Attempts to control rate with medications difficult due to hypotension and respiratory problems. Intolerant of anticoagulation due to GI bleeding. Currently pt in bed in NAD. Telemetry is paced at 70 bpm. Troponins are normal X 3. Past Medical History: General: Hypertension Yes CVA No Seizures No TB No COPD Yes Asthma Yes Diabetes No Angina No MD Yes Hyperlipidemia Yes Cancer No Ulcers No MRSA No GB Disease No Additional hx ATRIAL FIB Past Surgical HX: Previous Surgery?Y HERNIA REPAIR 1959'S LT MUSCLE ARM & LEG RIGHT KNEE SURGERY CATARACTS ON R EYE HERNIA 2016 CARDIAC PACER 10/25/16 Allergies Coded Allergies: No Known Allergies (10/26/16) Home medications: Active Scripts HYDROCODONE/ACETAMINOPHEN (Hydrocodon-Acetaminoph 7.5-325) 1 TAB PO BID #60 TAB Prov: 11/19/16 Discontinued Scripts Bisoprolol Fumarate 10 MG PO DAILY #30 TAB Ref 1 Prov: 11/19/16 DC: 12/07/16 0712 Reported Medications UMECLIDINIUM BRM/VILANTEROL TR (Anoro Ellipta 62.5-25 Mcg INH) 1 PUFF IH DAILY Omeprazole (Omeprazole 20MG) 40 MG PO DAILY 30 Days CETIRIZINE HCL (Cetirizine 10MG) 10 MG PO DAILYP PRN ALLERGIES Fluticasone Furoate (Arnuity Ellipta) 100 MCG IH DAILY NITROGLYCERIN (Nitrostat) 0.4 MG SL [id number] PRN CHEST PAIN Roflumilast (Daliresp) 500 MCG PO DAILY Aspirin (Aspirin EC) 81 MG PO DAILY 30 Days Cyclobenzaprine Hcl (Cyclobenzaprine 10MG) 10 MG PO DAILY TAMSULOSIN HCL (Tamsulosin 0.4MG) 0.4 MG PO QHS Digoxin (Digitek) 250 MCG PO DAILY Current Medications: Current Medications Bisoprolol Fumarate 10 MG DAILY PO Pantoprazole Sodium 40 MG QHS PO Tamsulosin HCl 0.4 MG QHS PO (DC) Tamsulosin HCl 0.4 MG QHS PO Levalbuterol HCl 1.25 MG TIDRT INH (DC) Methylprednisolone Sodium Succinate 60 MG Q6 IV (DC) Methylprednisolone Sodium Succinate 60 MG Q6 IV Hydrocodone Bitart/Acetaminophen 0 .STK-MED ONE PO (DC) Aspirin 81 MG DAILY PO (DC) Aspirin 81 MG DAILY PO Bisoprolol Fumarate 10 MG DAILY PO (DC) Cyclobenzaprine HCl 10 MG DAILY PO (DC) Cyclobenzaprine HCl 10 MG DAILY PO Digoxin 0.25 MG DAILY PO (DC) Digoxin 0.25 MG DAILY PO Hydrocodone Bitart/Acetaminophen 1 TAB BID PO (DC) Hydrocodone Bitart/Acetaminophen 1 TAB BID PO Sodium Chloride 1,000 ML .[id number] IV Acetaminophen 650 MG Q6HP PRN PO Guaifenesin/Dextromethorphan 5 ML Q6HP PRN PO Nicotine 21 MG DAILYP PRN TD Nitroglycerin 0.4 MG [id number] PRN SL Sodium Chloride 10 ML PRN PRN IV Sodium Chloride 10 ML PRN PRN IV Levalbuterol HCl 1.25 MG TIDRT INH Sodium Chloride 1,000 ML .STK-MED ONE IV (DC) Bisoprolol Fumarate 0 .STK-MED ONE PO (DC) Sodium Chloride 10 ML PRN PRN IV (DC) Diltiazem HCl 0 .STK-MED ONE IV (DC) Sodium Chloride 100 ML .STK-MED ONE IV (DC) Acetaminophen 650 MG Q6HP PRN PO (DC) Guaifenesin/Dextromethorphan 5 ML Q6HP PRN PO (DC) Guaifenesin/Dextromethorphan 0 .STK-MED ONE .ROUTE (DC) Acetaminophen 0 .STK-MED ONE PO (DC) Sodium Chloride 100 ML .STK-MED ONE IV (DC) Azithromycin 0 .STK-MED ONE IV (DC) Ceftriaxone Sodium 0 .STK-MED ONE IV (DC) Sodium Chloride 250 ML .STK-MED ONE IV (DC) Azithromycin 500 MG DAILY IV (DC) Sodium Chloride 250 ML Ceftriaxone Sodium 1 GM DAILY IV (DC) Sodium Chloride 50 ML Enoxaparin Sodium 100 MG ONCE ONE SC (DC) Nicotine 21 MG DAILYP PRN TD (DC) Sodium Chloride 100 ML .STK-MED ONE IV (DC) Diltiazem HCl 0 .STK-MED ONE IV (DC) Aspirin 0 .STK-MED ONE .ROUTE (DC) Diltiazem HCl 0 .STK-MED ONE IV (DC) Nitroglycerin 0 .STK-MED ONE SL (DC) Albuterol/Ipratropium 0 .STK-MED ONE INH (DC) Albuterol/Ipratropium 3 ML ONCE ONE INH (DC) Aspirin 325 MG ONCE ONE PO (DC) Diltiazem HCl 20 MG ONCE ONE IV (DC) Diltiazem HCl 100 MG ONCE ONE IV (DC) Sodium Chloride 100 ML Nitroglycerin 0.4 MG [id number] PRN SL (DC) Sodium Chloride 10 ML PRN PRN IV (DC) Immunization HX DT/Tetanus 1-4 Years Flu Refused Pneumonia RECEIVED IN PAST TB Test in last year No Family history Family HX Family Hx Insignificant No Diabetes No CAD No Hypertension Yes Hyperlipidemia No Cancer No TB No Social Hx: Smoking HX Tobacco No Type Cigarettes Packs/day < 1 PACK Are you/the child exposed to second-hand smoke: No Alcohol Alcohol: No Hx of Drug Use Drug Use? No Review of systems: Constitutional weakness. Respiratory SOB with excertion. Cardiovascular see HPI, chest pain, palpitations Gastrointestinal/Abdominal No no symptoms reported Genitourinary No: no symptoms reported. Musculoskeletal muscle stiffness. Neurological Yes: see HPI, numbness, parasthesia. Exam: Admission Vital Signs: 1ST Vital Signs Result Date Time Pulse Ox 97 12/05 1801 B/P 123/64 12/05 1801 O2 Flow Rate 15 12/05 1801 Temp 98.0 12/05 1801 Pulse 161 12/05 1801 Resp 22 12/05 1801 O2 Delivery OXYGEN 12/05 2136 Last Vital Signs: Vital Signs Result Date Time O2 Flow Rate 2 12/06 1401 Pulse Ox 96 12/06 1401 O2 Delivery OXYGEN 12/06 1401 B/P 142/70 12/06 1227 Temp 97.6 12/06 1227 Pulse 73 12/06 1227 Resp 20 12/06 1227 Exam General appearance: alert, awake, no acute distress Neck: no carotid bruit, no JVD Cardiovascular: irregularly irregular Respiratory: diffuse bilateral rhonchi and wheezing. ABD: soft, no tenderness Extremities: moves all, no peripheral edema Neuro: alert, intact, oriented Laboratory data: Laboratory Tests 12/06/16 0310: Creatine Kinase 18 L, CK-MB (CK-2) Rel Index 4.4 H, CK and CKMB Interp 0.8, Troponin I 0.03 12/05/16 2220: Urine Color YELLOW, Urine Appearance CLEAR, Urine pH 6.0, Ur Specific Sawyer 1.025, Urine Protein 1+ H, Urine Ketones NEGATIVE, Urine Blood NEGATIVE, Urine Nitrate NEGATIVE, Urine Bilirubin NEGATIVE, Urine Urobilinogen 0.2, Ur Leukocyte Esterase NEGATIVE, Urine WBC 3-5, Ur Squamous Epith Cells OCC, Amorphous Sediment OCC, Urine Bacteria 1+, Hyaline Casts 3-5, Urine Glucose NEGATIVE 12/05/162102: Creatine Kinase 17 L, CK-MB (CK-2) Rel Index 2.9, CK and CKMB Interp < 0.5, Troponin I 0.03 12/05/162010: Lactic Acid 1.2 12/05/161919: VBG pH 7.35, VBG Total CO2 24.0, VBG O2 Sat (Calc) 96 H, VBG Base Excess -2.3, Mixed VBG pCO2 43.0, Mixed VBG pO2 93.0 H, Mixed VBG HCO3 23.0 12/05/161804: Sodium 142, Potassium 3.7, Chloride 108 H, Carbon Dioxide 26, BUN 9, Creatinine 1.4 H, Estimated Creat Clear 61, Estimated GFR (MDRD) 49, Glucose 115 H, Calcium 7.8 L, Total Bilirubin 0.3, AST 9 L, ALT 11 L, Alkaline Phosphatase 138 H, Creatine Kinase 19 L, CK-MB (CK-2) Rel Index 2.6, CK and CKMB Interp < 0.5, Troponin I 0.02, B-Natriuretic Peptide 43, Total Protein 5.7 L, Albumin 2.5 L, Globulin 3.2, Albumin/Globulin Ratio 0.8 L, PT 10.6, INR 0.98, APTT 23.6, D-Dimer 620 *H, WBC 15.5 H, RBC 5.17, Hgb 13.9 L, Hct 42.6, MCV 82.3, RDW 16.4, Plt Count 191, MPV 8.6, Gran % 67.0, Gran # 10.4 H, Total Counted 100 , Lymphocytes % 23.9, Monocytes % 5.2, Eosinophils % 3.0, Basophils % 0.9, Neutrophils 59, Lymphocytes (Manual) 35, Lymphocytes # 3.7, Monocytes (Manual) 4 , Monocytes # 0.8, Eosinophils # 0.5 H, Eosinophils # (Manual) 1, Basophils # 0.1, Basophils # (Manual) 1, Platelet Estimate NORMAL, PUBS MCHC 32.7, MCH 26.9 L Microbiology Date/Time Procedure - Status Source Growth 12/05 2010 Anaerobic Blood Culture - RECD BLOOD 12/05 2010 Aerobic Blood Culture - RECD BLOOD 12/06 2007 Anaerobic Blood Culture - RECD BLOOD 12/06 2007 Aerobic Blood Culture - RECD BLOOD Plan: Assessment: 1. Recurrent A.fib with RVR, currently paced rhythm at 70 bpm. With multiple admissions for recurrent A. fib with RVR despite medical therapy, possible TIA and inability to take anticoagulation due to recurrent GI bleeding, will discuss AV node ablation and left atrial appendage ligation with Dr. Stevenson, Dr. Armstrong and specialty physicians. 2. Tachy-charly syndrome with Pacemaker in situ 3. COPD, severe 4. HTN 5. Non-obstructive CAD by cath 09/2016 Recommendations: See above. at 1124
--- NOTE | 2016-12-06 16:09 | CONSULT NOTE ---
Consult Note Note: This patient was examined on December 06, 2016 well he was hospitalized in the intensive care unit, because of a cardiac issue and a possible stroke. He did have a CT of his head done on December 05, 2016 and that showed a LEFT nasopharyngeal mass extending from the maxillary sinus into the nasal cavity. It was consistent with a antral coloanal polyp, clinical examination revealed that the LEFT nasal fossa was completely blocked. In that he had a mass in the posterior aspect of the LEFT nasal fossa . The remainder of the examination was noncontributory. 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 And he will follow-up in the clinic in 2 weeks' time when he is feeling better generally. At that point we will schedule a removal of the lesion for him for definitive diagnosis and treatment. Dr. Mario Alberto Maxwell please send a copy to Dr. Demarcus Stevenson. at [phone]
[2016-12-07 04:24] VITALS: BP 167/87
--- NOTE | 2016-12-07 07:08 | ACUTE CARE PROGRESS NOTE (QUA) ---
Progress Notes Subjective Date 12/07/16 Time 0705 Note Patient has no new complaints this morning. CT scan of the head yesterday was negative for any evidence of infarct. He did however discover what appears to be a very large polyp in the LEFT nasal passage and maxillary sinus. Patient was evaluated by Dr. Maxwell. Cardiology service contacted hoop punch operator helper about AV node ablation and LEFT atrial appendage closure. Patient would require anticoagulation for 45 days after the procedure. In the past 2 years patient has been on both Xarelto and Eliquis for his atrial fibrillation and has developed gastrointestinal bleeding usually within about 2 weeks of starting the medicine. Patient has had multiple upper endoscopies in the last 3 years which show chronic gastritis and this is likely his source of bleeding when it occurs. Patient does not have any problems with gastrointestinal bleeding when he is not on anticoagulants. He has not had a colonoscopy. He is resting comfortably. Oriented to person place and time. Lungs have expiratory wheezes. Heart has a regular rate and rhythm. Abdomen is soft. Patient is back at baseline. He will be discharged home today. I will increase his bisoprolol to 10 mg twice daily. Patient is reluctant to proceed with further cardiac procedure because of the anticoagulation issue. I've explained to him that we may not really have much of a choice in pursuing this as neither he nor his physicians feel like being admitted to the hospital every 2 weeks is accomplishing much. Objective Findings Last VS-Temp:97.4 B/P:167/87 Pulse:70 Resp:20 SaO2:97 OXYGEN Last weight lbs:181 oz:7 K.299 Method:Bed Scales Assessment/Plan Problem List 1. Rapid atrial fibrillation 2. Right hand weakness 3. Chronic bronchitis with COPD (chronic obstructive pulmonary disease) Patient condition Stable Plan: initiate discharge plan This inpt stay is expected to cross 2 MNs from start of care Yes at 0708
--- NOTE | 2016-12-07 07:12 | Discharge Summary ---
Demographics Admit date: 12/05/16 Discharge date: 12/07/16 Discharge diagnoses Problem List 1. Rapid atrial fibrillation 2. Right hand weakness 3. Chronic bronchitis with COPD (chronic obstructive pulmonary disease) History of present illness History of present illness 76-year-old male with recent history of hospitalizations for atrial fibrillation with rapid ventricular response is also status post pacemaker placement presented to the emergency department yesterday evening after experiencing sudden onset of palpitations with chest pain and shortness of breath at approximately 3:30 PM. On presentation patient was found to be in atrial fibrillation with rapid ventricular response and he was started on a Cardizem drip. Patient's heart rate was lowered in the emergency department and by the time he arrived in the stepdown unit it appears the patient was back into a paced rhythm with a pulse rate of 70. He has been maintained on a Cardizem drip overnight. In addition to the previous admission symptoms the patient also reports an episode 72 hours prior to presentation to the ER where he developed RIGHT hand weakness and numbness in the fingers of his RIGHT hand. He had difficulty picking up objects. Patient has known atrial fibrillation but has not been tolerant of anticoagulants due to recurring gastrointestinal bleeds. Patient was admitted on a Cardizem drip which brought his rate under control by the evening of admission. The following morning Cardizem drip was discontinued and he was started on bisoprolol 10 mg. Cardiology service was consulted. Cardiology presented the option of AV node ablation and LEFT atrial appendage closure which required the patient to be on anticoagulants for 45 days post procedure. When I discussed this with the patient he brought up his history of gastrointestinal bleeding when on anticoagulants. He feels like he cannot do the procedure because of this. He has had 2 EGDs in the last 3 years and both showed chronic active gastritis. These are the likely source of his bleeds. He has not had a colonoscopy. He will need this as an outpatient. We discussed that at his current rate he is being to admitted to the hospital every 2-3 weeks and that is not desirable for anyone and he is also in agreement with this. At discharge his bisoprolol was increased to 10 mg twice a day. He will follow-up in my office in a week. I feel like his current issues are contributed to by his living situation as he lives at home with no air conditioning. I believe over the course of several weeks he will gradually become dehydrated which is triggering his atrial fibrillation. Patient usually responds well to fluids and Cardizem. His blood pressure however is preventing use of dual agents to control his rate. Medications Medications: Discharge meds are as noted. Follow up Follow up in office in: 7 DAYS with: Fletcher Stevenson MD at 0712
[2016-12-07] MEDS ORDERED: BISOPROLOL FUMA10 MG PO (07:13)
--- NOTE | 2016-12-07 07:41 | ACUTE CARE PROGRESS NOTE (QUA) ---
Progress Notes Subjective Date 12/07/16 Time 0736 Note 76 yo WM in bed in NAD. No chest pain. Telemetry shows a. pacing. Objective Findings Last VS-Temp:97.4 B/P:167/87 Pulse:70 Resp:20 SaO2:97 OXYGEN Last weight lbs:181 oz:7 K.299 Method:Bed Scales Exam General appearance: alert, awake, no acute distress Cardiovascular: regular rate & rhythm Respiratory: rhonchi Extremities: moves all, no peripheral edema Neuro: alert, intact, oriented Reviewed: medications, vital signs, lab results Assessment/Plan Problem List 1. Rapid atrial fibrillation 2. Right hand weakness 3. Chronic bronchitis with COPD (chronic obstructive pulmonary disease) Patient condition Stable Plan: Agree with discharge home. Increase bisoprolol to 10 mg BID. Discussed options of AV node ablation for rate control and either Watchman device or DES ligation for thromboembolic prophylaxis with patient and Dr. Stevenson. Workup for source of GI bleed will be undertaken. Pt has been intolerant of a/c in the past due to bleeding but consider lower dose due to renal function. Follow up in 1-2 wks. This inpt stay is expected to cross 2 MNs from start of care Yes at 0741
[2016-12-07 08:16] VITALS: BP 137/70
[2016-12-07 08:26] VITALS: BP 137/70
== END 2016-12-07 09:34 | disposition home or self-care (01) | DRG 310 ==
LOC: ER 17:58 → ICU 19:32 → ER 19:32 → 2ND 20:11 → ICU 20:11 → 2ND 12-06 17:09
PROVIDERS: Emergency Medicine
DX: I48.91 Unspecified atrial fibrillation (principal); I49.5 Sick sinus syndrome; Z99.81 Dependence on supplemental oxygen; J42 Unspecified chronic bronchitis; Z95.0 Presence of cardiac pacemaker; I25.10 Atherosclerotic heart disease of native coronary artery without angina pectoris; I10 Essential (primary) hypertension; Z87.891 Personal history of nicotine dependence
CPT/HCPCS: J0456

== ENCOUNTER 2017-02-15 17:50 | Observation (INO) | payer MEDICARE, MEDICAID ==
[~2017-02-15] VITALS: Ht 182.9 cm; Wt 85.8 kg
[2017-02-15 17:55] VITALS: BP 142/84
[2017-02-15 18:01] LABS: HEMOGLOBIN 14.7 g/dL (14.1-18.0); LYMPH # 4.1 K/mm3 (0.7-4.5); LYMPH % 22.4 % (10-50)
--- NOTE | 2017-02-15 19:00 | Emergency Room Report ---
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 AFEBRILE. CHEST DISCOMFORT. 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 N Clinical Suspician of Infection? N Mental Status: 1 - Regular (Normal Baseline) Sepsis Risk:Low Sepsis Risk Have you (or family members/close friends) recently traveled outside the [place]? N If Yes, where/when: Have you had exposure to infectious disease within the past month? TB? Other? Specify: ALLERGIES Coded Allergies: No Known Allergies (02/15/17) Home Medications Active Scripts HYDROCODONE/ACETAMINOPHEN (Hydrocodon-Acetaminoph 7.5-325) 1 TAB PO BID #60 TAB Prov: 11/19/16 Bisoprolol Fumarate 10 MG PO BID #60 TAB Ref 2 Prov: 12/07/16 Reported Medications UMECLIDINIUM BRM/VILANTEROL TR (Anoro Ellipta 62.5-25 Mcg INH) 1 PUFF IH DAILY Omeprazole (Omeprazole 20MG) 40 MG PO DAILY 30 Days CETIRIZINE HCL (Cetirizine 10MG) 10 MG PO DAILYP PRN ALLERGIES Fluticasone Furoate (Arnuity Ellipta) 100 MCG IH DAILY NITROGLYCERIN (Nitrostat) 0.4 MG SL [id number] PRN CHEST PAIN Roflumilast (Daliresp) 500 MCG PO DAILY Aspirin (Aspirin EC) 81 MG PO DAILY 30 Days Cyclobenzaprine Hcl (Cyclobenzaprine 10MG) 10 MG PO DAILY TAMSULOSIN HCL (Tamsulosin 0.4MG) 0.4 MG PO QHS Digoxin (Digitek) 250 MCG PO DAILY History Medical History General CAD? Yes Angina: No NM: Yes Hypertension? Yes Hyperlipidemia? Yes CHF? No DVT? No PE? No COPD? Yes Asthma? Yes Anemia? No GERD? No Gastric ulcers? No GI Bleed? No Hernia? No Thyroid Problems? No Hypothyroidism? No CVA? No Seizures? No Diabetes? No Renal Insuffiency? No End Stage Renal Disease? No UTI? No Stones? No BPH? No GB Disease: No Nephritic Syndrome? No Asplenia? No Hepatitis? No Sickle Cell Disease? No Arthritis? No Migraines? No Cataracts? Yes Glaucoma? No MRSA? No HIV? No TB? No Anxiety? No Depression? No Cancer? No More? Yes Additional hx: ATRIAL FIB Immunization Hx Ped.Immunizations UTD Yes DT/Tetanus 1-4 Years Ago Flu Refused Pneumonia Received In Past Surgical Hx Previous Surgery?Y HERNIA REPAIR 1959'S LT MUSCLE ARM & LEG RIGHT KNEE SURGERY CATARACTS ON R EYE HERNIA 2016 CARDIAC PACER 10/25/16 Family History Family Hx Diabetes No CAD No Hypertension Yes Hyperlipidemia No Cancer No TB No Social History Smoking Hx Smoker: Former Smoker Tobacco: No Type Cigarettes Packs/day < 1 Pack Alcohol Alcohol: No Review of Systems All Other Systems Reviewed and Negative Physical Exam Vital Signs Vital Signs Date Time Temp Pulse Resp B/P Pulse O2 O2 Flow FiO2 Ox Delivery Rate 02/15 192 86 24 147/104 96 3 02/15 1833 96 02/15 183 138 30 119/71 96 3 02/15 1755 98.0 129 18 142/84 88 General Appearance normal appearance, WD/WN, no apparent distress Respiratory Status Yes: respiratory distress. Lung Sounds bilateral: rales. 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 No Results/Orders Laboratory Tests 02/15/17 1913: ABG pH 7.41, ABG pCO2 (Temp Corrct 42.0, ABG pO2 (Temp Correct 74.7 L, ABG HCO3 26.1 H, ABG Total CO2 27.4 H, ABG O2 Sat (Calculated) 95.4, ABG Base Excess 1.5, Serg Test ACCEPTABLE 02/15/171809: Lactic Acid 2.0 02/15/171744: Sodium 143, Potassium 4.2, Chloride 105, Carbon Dioxide 33 H, BUN 13, Creatinine 1.0, Estimated Creat Clear 76, Estimated GFR (MDRD) 73, Glucose 109 H, Calcium 8.4 L, Total Bilirubin 0.4, AST 12 L, ALT 13, Alkaline Phosphatase 113, Creatine Kinase 23 L, CK-MB (CK-2) Rel Index 2.6, CK and CKMB Interp 0.6, Troponin I 0.02, B-Natriuretic Peptide 221 H, Total Protein 6.8, Albumin 3.0 L , Globulin 3.8 H, Albumin/Globulin Ratio 0.8 L, WBC 18.1 H, RBC 5.56, Hgb 14.7, Hct 47.9, MCV 86.2, RDW 15.3, Plt Count 160, MPV 10.0, Gran % 66.7, Gran # 12.0 H, Total Counted 100, Lymphocytes % 22.4, Monocytes % 4.2, Eosinophils % 5.8, Basophils % 0.9, Neutrophils 64, Band Neutrophils 1, Lymphocytes (Manual) 24, Lymphocytes # 4.1, Monocytes (Manual) 4, Monocytes # 0.8, Eosinophils # 1.1 H, Eosinophils # (Manual) 7 H, Basophils # 0.2, Platelet Estimate NORMAL, Polychromasia SL., Hypochromasia 1+, Rouleaux 1+, PUBS MCHC 30.6 L, MCH 26.4 L , Digoxin 1.22 Current Medication Orders Sig/Martin Start time Last Medication Dose Route Stop Time Status Admin Levofloxacin/Dextrose 100 ML ONCE ONE 02/15 1900 r IV 02/15 1959 Miscellaneous 1 EACH CONSULT PHARMACY 02/15 1900 AC Information * 02/16 0700 Piperacillin Sod/ 3.375 GM ONCE ONE 02/15 1900 DC Tazobactam Sod IV 02/15 192 Sodium Chloride 50 ML Albuterol/Ipratropium 0 .STK-MED ONE 02/15 1803 DC INH Albuterol/Ipratropium 3 ML ONCE ONE 02/15 1800 DC 02/15 INH 02/15 1801 180 Sodium Chloride 10 ML PRN PRN 02/15 1800 AC IV 02/17 1752 Orders Procedure Date/time Status Decision to admit 02/15 1953 Active CULTURE, SPUTUM 02/15 1935 Active [id number] BY SAME 02/15 1900 Active ELECTROCARDIOGRAM REQUEST 02/15 1900 Active ARTERIAL BLOOD GAS REQUEST 02/15 185 Active RT Aerosol Treatment, Provide 02/15 1807 Active 12 LEAD EKG-BESMARIBEL (INITIAL) 02/16 1756 Active ELECTROCARDIOGRAM REQUEST 02/15 1755 Active RT REQUEST DUONEB 02/15 1755 Active CHEST-PORTABLE 02/15 1755 Active IV SALINE LOCK 02/15 1755 Active OXYGEN PER NURSE 02/15 1755 Active CULTURE, BLOOD 02/15 1755 Active LACTIC ACID 02/15 1755 Complete DIGOXIN 02/15 1755 Complete CBC WITH AUTO DIFF 02/15 1755 Complete CARDIAC ENZYMES 02/15 1755 Complete CHEM 12 PROFILE 02/15 1755 Complete BRAIN NATRIURETIC PEPTIDE 02/15 1755 Complete DIFFERENTIAL-WBC 02/15 1745 Complete XRAY/CT/US XRAY/CT/US XRAY chest XR interpretation by reviewed by me Xray Results RLL pneumonia and ? LLL pneumonia Departure Departure Time of Disposition 1956 Disposition Still a Patient Clinical Impression Primary Impression: Pneumonia Qualifiers: Pneumonia type: due to unspecified organism Laterality: bilateral Lung location: lower lobe of lung Qualified Code: J18.9 - Pneumonia, unspecified organism Condition STABLE Referrals Fletcher Stevenson MD (Family) Additional Instructions Admitted to OBS to Dr. Stevenson with Dr. Sutherland covering Discharge Counseling Counseled pt/family regarding diagnosis, test results ED Critical Care Critical Care No If Critical Care minutes are documented, the time involved in the performance of seperately reportable procedures was not counted toward critical care time documented. I directly delivered medical care to this critically ill and/or injured patient. Timely evaluation and treatment was necessary to address the significant organ system(s) dysfunction present in this patient. at 1958
[2017-02-15 19:17] LABS: ARTERIAL PO2 74.7 MMHG (80-100)
[2017-02-15 19:18] LABS: ALLEN'S TEST ACCEPTABLE; ARTERIAL ABE 1.5 MMOL/L (-2.4-+2.3); ARTERIAL TCO2 27.4 MMOL/L (23-27)
[2017-02-15 19:35] LABS: NEUTROPHILS 64 % (42-76)
--- OUTSIDE RECORDS SUMMARY | 2017-02-15 19:40 | External Medical Summary Rpt | CCD ---
Author Author , RANDALL Organization RANDALL Address Unknown Phone [email or web address] Care Team Providers Care Brake Assembler Name Role Phone A Kristy QUEZADA MD PSC, Darnell Unavailable Unavailable Kristy QUEZADA MD PSC ABLECARE, ABLECARE Unavailable Unavailable SOL USN KAYODE, Unavailable Unavailable SOL SUN KAYODE ALLRAN JR RITA, ALLRAN Unavailable Unavailable JR RITA AYOOB AND, AYOOB AND Unavailable Unavailable BEINEKE, BEINEKE Unavailable Unavailable TANYA AND, TANYA Unavailable Unavailable AND BESSON, BESSON Unavailable Unavailable BESSON JENNA, BESSON Unavailable Unavailable JENNA WALLACE JAMILAH, Unavailable Unavailable WALLACE JAMILAH WALLACE JAMILAH, Unavailable Unavailable WALLACE JAMILAH FONTANEZ, FONTANEZ Unavailable Unavailable FONTANEZ ALL, FONTANEZ ALL Unavailable Unavailable ROBBINS JESS, ROBBINS Unavailable Unavailable JESS [facility] Unavailable Unavailable SERVICE, [facility] Unavailable Unavailable SERVICE, [facility]available Unavailable [place], [...] KEYANA, TAYLOR Unavailable Unavailable KEYANA [facility]UC[facility] Unavailable Unavailable INC, [facility] Unavailable Unavailable HOSPITAL P, [facility] P RUIZ, DONTE A, Unavailable Unavailable RUIZ, DONTE A [facility], Unavailable Unavailable [facility] ARMENDARIZ JENNA, ARMENDARIZ JENNA Unavailable Unavailable HUI MIKHAIL, HUI MIKHAIL Unavailable Unavailable BECKY MAR, BECKY Unavailable Unavailable MAR [facility] Unavailable Unavailable IMAGING ASS, [facility] [...] [facility] [place] Unavailable Unavailable INTERNAL MED, [facility] JAMES CON, JAMES CON Unavailable Unavailable POLLOCK, POLLOCK Unavailable Unavailable POLLOCK JAM, Unavailable Unavailable POLLOCK JAM POLLOCK JAM, Unavailable Unavailable POLLOCK JAM NELLY KEY, NELLY Unavailable Unavailable KEY NELLY, JANE P, Unavailable Unavailable JANE [facility] P [facility] Unavailable Unavailable [facility], [facility] Unavailable Unavailable [facility], [facility] LORI BET, LORI BET Unavailable Unavailable KIRILL, KIRILL Unavailable Unavailable KIRILL JENNA, KIRILL JENNA Unavailable Unavailable ALIRIO BRILL YOL, Unavailable Unavailable ALIRIO BRILL YOL REYEZ CLEO, REYEZ CLEO Unavailable Unavailable [facility], Unavailable [facility]available [facility], [facility] Unavailable Unavailable LAB, [facility] PAVEZ MAR, PAVEZ MAR Unavailable Unavailable PAULA JURGEN Unavailable Unavailable ANNEL, PAULA JURGEN ANNEL [facility] Unavailable Unavailable [facility], [id number], Unavailable Unavailable [id number] Unavailable Unavailable [id number] [address] [id number], [facility] [id number] # [id number] TANIYA ABIMAEL, TANIYA ABIMAEL Unavailable [...] JAMES DON JAMES, DON R, Unavailable Unavailable KRISH JAMES RONNY, MANDI Unavailable Unavailable RONNY WALDROP, JANENE Unavailable Unavailable PALMA BERGMAN, JANENE Unavailable Unavailable OTTO BOOTH Unavailable Unavailable [facility], Unavailable Unavailable [facility] Unavailable [facility] HIEU GAMEZ, HIEU Unavailable Unavailable [facility], Unavailable [facility], Unavailable [facility]available [facility] ZAJANIYA MAR, Unavailable Unavailable ZAMEHREENKAYA MAR Purpose Continuity of Care Document - 04-25-2007 through 2016 Problems Code Diagnosis DOS Provider Status 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 12-28-2016 [facility] J349 UNSPECIFIED 12-06-2016 [facility] MEDICAL OF NOSE AND IMAGING ASS NASAL SINUSES R531 WEAKNESS 12-06-2016 [facility] I4891 UNSPECIFIED 12-05-2016 [place] A[facility]IAL [facility] P N I495 SICK SINUS 12-05-2016 [place] SYNDROME [facility] P J42 UNSPECIFIED 12-05-2016 [place] CHRONIC [facility] BRONCHITIS [facility] P R0600 DYSPNEA 12-05-2016 [facility] UNSPECIFIED [facility]ING ASS 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-2016 [facility] 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 Z950 PRESENCE OF 11-26-2016 [facility] CARDIAC PHYSICIANS PACEMAKER GROUP E785 HYPERLIPIDE 11-15-2016 [facility] UNSPECIFIED GROUP I10 ESSENTIAL 11-15-2016 [facility] HYPERTENSIO [facility] P N I119 HYPERTENSIV 11-15-2016 [facility] E HEART PHYSICIANS DISEASE GROUP WITHOUT HEART FAILURE I2510 [facility] [place] 11-15-2016 [facility] 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 R110 NAUSEA 11-15-2016 [facility] R55 SYNCOPE AND 11-15-2016 [facility] COLLAPSE PHYSICIANS GROUP R0602 SHORTNESS 11-02-2016 [facility] OF BREATH MEDICAL IMAGING ASS R079 CHEST PAIN 11-02-2016 [facility] UNSPECIFIED [facility]ICAL IM[facility]ING ASS I4519 OTHER RIGHT 10-31-2016 [facility] ROBLES, BUNDLE-BRAN PLLC CH BLOCK J189 PNEUMONIA 10-31-2016 [facility] UNSPECIFIED PHYSICIANS, ORGANISM PLLC [id number] PERSONAL 10-31-2016 [facility] HISTORY OF PHYSICIANS, NICOTINE PLLC DEPENDENCE 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 10-24-2016 [facility] P I509 HEART 10-24-2016 [facility] P J441 CHRONIC 10-24-2016 [facility] P DZ W/EXACERBAT ION Z4509 ENCOUNTER 10-24-2016 [facility] MANAGEMENT INC OT CARDIAC DEVICE R918 OTHER 09-14-2016 [facility] NONSPECIFIC MEDICAL ABNORMAL IMAGING ASS FINDING OF LUNG FIELD J410 SIMPLE 09-04-2016 A Kristy QUEZADA CHRONIC PSC BRONCHITIS R938 ABNORMAL 09-04-2016 [facility] FIND ON DX PHYSICIANS IMAGING OT GROUP SPEC BODY STRCT I200 UNSTABLE 08-27-2016 [facility] ANGINA PHYSICIANS GROUP [id number] [facility] [place] 08-25-2016 [email or web address] P ANGINA PECTORIS I272 OTHER 08-25-2016 [facility] P HYPERTENSIO N 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 [facility] FIBRILLATIO INC N Z7901 MCFP 08-25-2016 [facility] CURRENT USE [facility] OF INC ANTICOAGULA NTS I482 CHRONIC 06-14-2016 A Kristy QUEZADA ATRIAL [...] ACUTE LOWER [facility] INC RESPIRATORY INFECTION I5020 UNSPECIFIED 05-10-2016 A Kristy QUEZADA SYSTOLIC PSC CONGESTIVE HEART FAILURE C9110 CHRONIC 01-11-2016 [facility] 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 R634 ABNORMAL 01-11-2016 [facility] WEIGHT LOSS [facility] INC R1110 VOMITING 01-09-2016 [facility] UNSPECIFIED PHYSICIANS GROUP K828 OTHER 01-02-2016 [facility] SPECIFIED MEDICAL DISEASES OF IMAGING ASS GALLBLADDER R630 ANOREXIA 01-02-2016 [facility] K921 MELENA 11-07-2015 [facility] PHYSIC[facility]ANS GROUP K5710 DIVERTICULO 11-03-2015 [facility] SIS SM MEDICAL INTEST W/O IMAGING ASS PERF/ABSC W/O BLEED R195 OTHER FECAL 11-03-2015 [facility] ABNORMALITI IMAGING ASS ES P64574 LYMPHOCYTOS 10-26-2015 MO[facility] IS PATHOLOGY SYMPTOMATIC LAB NETW J690 PNEUMONITIS 10-26-2015 [facility] MEDICAL DUE TO SERV INHALATION FOUNDATION OF FOOD AND VOMIT Z09 ENC F/U 10-20-2015 A C QUEZADA EXAM AFTR PSC CMPL TX OTH THAN MALIG NEOPLSM B370 CANDIDAL 10-19-2015 [facility] STOMATITIS SERV FOUNDATION R112 NAUSEA WITH 10-19-2015 [facility] VOMITING SERV UNSPECIFIED FOUNDATION R9431 ABNORMAL 09-18-2015 [facility] ELECTROCARD SERV IOGRAM FOUNDATION I4510 UNSPECIFIED 09-15-2015 [facility] RIGHT SERV BUNDLE-BRAN FOUNDATION CH BLOCK R001 BRADYCARDIA 09-15-2015 [facility] SERV UNSPECIFIED FOUNDATION B965 PSEUDOMONAS 09-14-2015 [facility] CAUSE OF SERV DZ FOUNDATION CLASSIFIED ELSEWHERE J9600 ACUTE 09-14-2015 [facility] RESPIRATORY SERV FAIL UNS FOUNDATION HYPOXIA/HYP ERCAPNIA J9811 ATELECTASIS 09-14-2015 [facility] SERV [facility] M23160 ENCOUNTER 09-14-2015 [facility] SURG SERV AFTERCARE FOUNDATION FLW SURG DIGESTIVE SYS Z049 ENCOUNTER 09-13-2015 [facility] EXAMINATION SERV &OBSERVATIO FOUNDATION N FOR UNS REASON K5900 CONSTIPATIO 09-12-2015 [facility] N SERV UNSPECIFIED FOUNDATION R140 ABDOMINAL 09-10-2015 [facility] DISTENSION SERV GASEOUS FOUNDATION R0989 OTH SPEC SX 09-09-2015 [facility] & SIGNS SERV INVLV THE FOUNDATION CIRC & RESP SYS A419 SEPSIS 09-08-2015 [facility] UNSPECIFIED SERV [...] ABDOMINAL SERV PAIN FOUNDATION Z4682 ENCOUNTER 09-08-2015 [facility] ADJUST HOSPI NON-VASCULA R CATHETER 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 SERV UNSPECIFIED FOUNDATION I517 CARDIOMEGAL 09-07-2015 [place] [facility] Y SERV [facility] I5189 OTHER 09-07-2015 [place] [facility] ILL-DEFINED SERV HEART [facility]OUND[facility] DISEASES R0902 HYPOXEMIA 09-06-2015 [place] [facility] R0689 OTHER 09-02-2015 [facility] ABNORMALITI SERV ES OF FOUNDATION BREATHING J942 HEMOTHORAX 08-30-2015 [place] [facility] J948 OTHER 08-30-2015 [place] [facility] SPECIFIED SERV PLEURAL FOUNDATION CONDITIONS L538 OTHER 08-30-2015 [place] [facility] SPECIFIED SERV ERYTHEMATOU FOUNDATION S CONDITIONS Z9889 OTHER 08-30-2015 [place] [facility] SPECIFIED SERV POSTPROCEDU FOUNDATION RAL STATES 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 K4030 UNILAT 08-25-2015 [place] INGUINAL [facility] NGUYEN W/OBST HOSPI W/O GANGRN NOT RECUR K4040 UNILAT 08-25-2015 [facility] INGUINAL SERV NGUYEN FOUNDATION W/GANGREN NOT SPEC RECUR U38446 ELEVATED 08-24-2015 [facility] BLOOD [facility] P UNSPECIFIED K4090 UNILAT 08-24-2015 [facility] INGUINAL SERV NGUYEN W/O FOUNDATION OBST/GANGRE N NOT RECUR K5660 UNSPECIFIED 08-24-2015 [facility] AMBULANCE SERVICE OBSTRUCTION R1031 RIGHT LOWER 08-24-2015 [facility] PAIN HOSPI J439 EMPHYSEMA 08-03-2015 [place] UNSPECIFIED [place] [facility] J929 PLEURAL 08-03-2015 [facility] [facility] [facility] WITHOUT IMAGING ASS ASBESTOS R002 PALPITATION 08-03-2015 [facility] S SERV FOUNDATION R031 NONSPECIFIC 08-03-2015 [facility] LOW SERV BLOOD-PRESS FOUNDATION URE READING R42 DIZZINESS 08-03-2015 [facility] AND SERV GIDDINESS FOUNDATION Z7722 CONTACT W/ 07-13-2015 [facility] & SUSPECTED SERV EXPOS FOUNDATION ENVIR TOBACCO SMOKE J40 BRONCHITIS 03-25-2015 [place] NOT MEDICAL SPECIFIED IMAGING ASS ACUTE OR CHRONIC R091 PLEURISY 01-21-2015 [facility] 4280 CONGESTIVE 01-14-2015 [facility] FAILURE MEDICAL UNSPECIFIED EQUIPME 05878 OBSTRUCTIVE 01-14-2015 [facility]ACY [facility] WITHOUT EXACERBAT 496 CHRONIC 01-14-[address] [facility] [address] HOME OBSTRUCTION MEDICAL NEC EQUIPME 03678 NUCLEAR 12-28-2014 [facility] SCLEROSIS JAMILAH 96632 OBST 09-06-2014 A Kristy QUEZADA CHRONIC PSC BRONCHITIS W/ACUTE BRONCHITIS 58208 LOSS OF 09-06-2014 A Kristy QUEZADA WEIGHT PSC 01405 OTHER CHEST 09-06-2014 A Kristy QUEZADA PAIN PSC 54812 OBSTRUCTIVE 09-05-2014 [facility] SLEEP HOME APNEA MEDICAL EQUIPME 7242 LUMBAGO 04-01-2014 A Kristy QUEZADA MD PSC V0382 NEED PROPH 04-01-2014 A Kristy QUEZADA VACCINATION PSC AGAINST STREP PNEUMONE 86028 ATRIAL 01-13-2014 [facility] FIBRILLATIO [facility] N INC 59204 REFLUX 01-13-2014 [facility] ESOPHAGITIS [facility] INC 10709 UNS 01-13-2014 [facility] GASTRITIS&G [facility] ASTRODUODIT INC IS W/O MENTION HEMORR 33052 ABDOMINAL 01-13-2014 [facility] PAIN, [facility] GENERALIZED INC V5869 LONG-TERM 01-13-2014 [facility] (CURRENT) [facility] USE OF INC OTHER MEDICATIONS 07261 CHEST PAIN 11-24-2013 [facility] UNSPECIFIED [facility] INC 5110 PLEURISY 10-29-2013 [place] WITHOUT MEDICAL MENTION IMAGING ASS EFFUS/CURRE NT TB 7862 COUGH 10-29-2013 [facility] 82884 INSOMNIA 12-16-2012 A Kristy BANSAL MD PSC 16582 OTHER 12-16-2012 A Kristy QUEZADA MALAISE AND PSC FATIGUE 48180 FEVER 05-23-2012 [facility] UNSPECIFIED DON 46126 WHEEZING 05-23-2012 JAMES DON 1120 CANDIDIASIS 05-21-2012 J[facility] OF MOUTH DON 90167 OTHER 05-21-2012 FRANCESCA DISEASES OF EMY LUNG NOT ELSEWHERE CLASSIFIED 4940 BRONCHIECTA 01-28-2012 [place] SIS WITHOUT MEDICAL ACUTE IMAGING ASS EXACERBATIO N 5119 UNSPECIFIED 01-28-2012 [place] PLEURAL MEDICAL EFFUSION IMAGING ASS 20660 OTHER 01-28-2012 [facility] NONSPECIFIC [facility] ABNORMAL INC FINDING OF LUNG FIELD 47522 OSTEOARTHRO 01-02-2012 JAMES S INVLV MX DON SITES BUT [place] SPEC GEN 50698 OBSTRUCTIVE 11-12-2011 [facility] CHRONIC [facility] BRONCHITIS INC WITH EXACERBATIO N 15818 ESOPHAGEAL 11-12-2011 [facility] REFLUX [facility] INC 2859 UNSPECIFIED 10-05-2011 [facility] ANEMIA [facility] INC 5180 PULMONARY 10-05-2011 [facility] COLLAPSE MEDICAL IMAGING ASS 486 PNEUMONIA, 09-28-2011 [place] ORGANISM MEDICAL UNSPECIFIED IMAGING ASS 5070 PNEUMONITIS 09-28-2011 [place] DUE TO JAM INHALATION OF FOOD OR VOMITUS 13580 SHORTNESS 09-28-2011 [facility] OF BREATH [facility] INC 15226 ABDOMINAL 09-28-2011 [facility] PAIN, MEM HOS[facility] EPIGASTRIC INC V1261 PERSONAL 09-28-2011 [place] HISTORY JAM PNEUMONIA RECURRENT 50803 PNEUMONIA 06-08-2011 JAMES DUE TO DON OTHER SPECIFIED BACTERIA 2724 OTHER AND 05-11-2011 [facility] UNSPECIFIED PHYSICIANS [place] HYPERLIPIDE [place] 2768 HYPOPOTASSE 05-11-2011 [facility]ED [place] PHYSICIANS [place] 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 6019 UNSPECIFIED 05-11-2011 [place] [address] PAIN IN 05-11-2011 COMBINED JOINT, PHYSICIANS MULTIPLE LA SITES 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 5183 PULMONARY 11-28-2009 [facility] A 80890 ACUTE 11-28-2009 [facility] MEDICAL RESPIRATORY SERV FAILURE FOUNDATIO 7856 ENLARGEMENT 11-28-2009 [facility] NODES 7931 NONSPEC 11-28-2009 [facility] MEDICAL FIND RAD SERV OTH EXAM FOUNDATIO BODY STRUCT LUNG FIELD V1582 PERS HX 11-28-2009 [place] TOBACCO USE [facility] PRESENTING HAZARDS HEALTH V7282 PRE-OPERATI 11-28-2009 [facility] MEDICAL VE SERV RESPIRATORY FOUNDATIO EXAMINATION 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 47974 DYSPHAGIA 11-18-2009 [place] UNSPECIFIED MEDICAL IMAGING ASS 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, 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 14712 OSTEOARTHRO 08-23-2009 [facility] SIS UNSPEC DON R WHETHER GEN/LOC LOWER LEG 65703 OSTEOARTHRO 08-23-2009 [facility]KA S UNSPEC DON R GEN/LOC OTH SPEC SITES 94596 MACULAR 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 RUIZ N OF RETINA UNSPECIFIED 54943 NONEXUDATIV 07-20-2008 [facility] & 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 36889 EXUDATIVE 07-20-2008 [facility] SENILE [facility]OC[facility] DEGENERATIO O N OF RETINA 66880 CRYSTALLINE 07-20-2008 [facility] & DEPOSITS VITREOUS IN VITREOUS ASSOCIATES O 4610 ACUTE 02-27-2008 JAMES, MAXILLARY DON R SINUSITIS 4659 ACUTE URIS 02-27-2008 JAMES, OF DON R UNSPECIFIED SITE 8472 LUMBAR 11-14-2007 JAMES, SPRAIN AND DON R STRAIN 4660 ACUTE 08-02-2007 JAMES, BRONCHITIS DON R 4871 INFLUENZA 07-04-2007 JAMES, WITH OTHER DON R RESPIRATORY MANIFESTATI ONS 30510 PAIN IN 04-25-2007 JAMES, JOINT, DON R SHOULDER REGION 15696 UNSPECIFIED 04-25-2007 JAMES, SYNOVITIS DON R AND TENOSYNOVIT IS Medications Na ND Rx Da Fi Fi Am Da Di Ph RX Ph St me C No te ll ll ou ys ag ar # ys at rm s nt no ma ic us Or Da si cy ia de te s n re d CE 16 09 10 30 30 00 RI Ac TI 71 -1 -0 .0 00 TE ti RI 40 1- 6- 00 01 ve ZI 27 20 20 18 AI NE 10 17 17 50 D 2 54 PH HC AR L MA 10 CY MG #3 93 TA 8 BL ET CE 16 08 08 30 30 00 RI Ac TI 71 -0 -2 .0 00 TE ti RI 40 1- 5- 00 01 ve ZI 27 20 20 18 AI NE 10 17 17 50 D 2 54 PH HC AR L MA 10 CY MG #3 93 TA 8 BL ET RA 11 07 08 30 30 00 [...] ET 03 93 8 # 03 93 00 05 06 3 [address] Ac 22 -1 -2 .0 TE 41 EP ti 82 7- 1- 00 28 HE ve 05 20 20 AI NS 95 10 10 D 0 PH DO AR N MA R CY 03 93 8 # 03 93 00 05 05 3 [address] Ac 22 -1 -1 .0 TE 41 EP ti 82 7- 7- 00 28 HE ve 05 20 20 AI NS 95 10 10 D 0 PH DO AR N MA R CY 03 93 8 # 03 93 AR 00 04 04 00 12 6 RI [...] Order Detail nces retati t Range on Digoxin level (02-15-2017 17:45) Digoxin = 1.22 1.15-2. complet level 017 ng/mL 56 ed 17:45 Urinalysis dipstick W Reflex Microscopic panel in Urine (12-05-2016 22:20) Amorpho OCC NONE complet us 017 ed sedimen 22:20 t [Presen ce] in Urine sedimen t by Light microsc opy Bacteri 1+ O complet a 017 ed [Presen 22:20 ce] in Urine sedimen t by Light microsc opy Hyaline 3-5 NONE complet casts 017 ed [Presen 22:20 ce] in Urine sedimen t by Light microsc opy Epithel OCC OCC complet ial 017 ed cells.s 22:20 quamous [Presen ce] in Urine sedimen t by Microsc opy high power field Leukocy 08-16-2 3-5 O complet anisa 017 wbc/hpf ed [#/volu 22:20 me] in Urine Urinalysis dipstick W Reflex Microscopic panel in Urine (12-05-2016 22:20) Appeara CLEAR CLEAR complet nce of 017 ed Urine 22:20 Bilirub NEGATIV NEG complet in 017 E ed [Presen 22:20 ce] in Urine by Test strip Erythro NEGATIV NEG complet cytes 017 E ed [Presen 22:20 ce] in Urine Color YELLOW YELLOW complet of 017 ed Urine 22:20 Ketones NEGATIV NEG complet 017 E ed [Presen 22:20 ce] in Urine by Automat ed test strip Mucus NEGATIV NEG complet [Presen 017 E ed ce] in 22:20 Urine sedimen t by Light microsc opy Nitrite NEGATIV NEG complet 017 E ed [Presen 22:20 ce] in Urine by Test strip Urobili 0.2 NEG complet nogen 017 ed [Presen 22:20 ce] in Urine by Test strip Differential panel, method unspecified - (12-05-2016 18:05) [...] panel, method unspecified - (11-05-2016 06:30) Hypochr -17-2 1+ complet omia 017 ed [Presen 06:30 ce] in Blood LYMPH 31 % 10% - Normal complet 017 50% ed 06:30 Platele 11-05-2 NORMAL complet ts 017 ed [Presen 06:30 ce] in Blood by Light microsc opy Differential panel, method unspecified - (11-02-2016 06:15) Anisocy -14-2 1+ complet tosis 017 ed [Presen 06:15 ce] in Blood Hypochr -14-2 1+ complet omia 017 ed [Presen 06:15 [...] sedimen t by Light microsc opy Nitrite 07-13-2 NEGATIV NEG complet 017 E ed [Presen [...] YOUR SM VOL 7 PHARMACY PHARMACY NONFILTR [employer] PNEUMAT NEBULIZR DISPBL ALBUTEROL J7620 YOUR YOUR TO 2.5 7 PHARMACY PHARMACY [facility] IPRATROPI [place] [address] [place] [address] [facility] 7 MEDICAL N W/O & IMAGING W/CONTRAS ASS T MATERIAL ECG 53306 [facility] BEVERLY ROUTINE 7 [facility] W/LEAST P 12 LDS I&R ONLY RADIOLOGI 38347 TEX FONTANEZ C 7 MEDICAL EXAMINATI IMAGING ON CHEST ASS SINGLE VIEW FRONTAL O2 CONC 1 E1390 [facility] LUIS PORT 7 HOME HOME 85%/>02 MEDICAL MEDICAL CONC AT EQUIPME EQUIPME PRSC FLW RATE INTERROGA 88611 [facility] RHIANNON TION EVAL 7 PHYSICIAN REMOTE S GROUP </90 D 1/2/CLOUD ADMINISTRATOR LEAD PM RADIOLOGI 31744 [facility] EXAM 7 MEDICAL CHEST 2 IMAGING VIEWS ASS FRONTAL&L ATERAL ECG 29757 [facility] BEVERLY ROUTINE 7 [facility] W/LEAST P 12 LDS I&R ONLY ECG 86355 [facility] ELIZABETH ROUTINE 7 [facility] W/LEAST P 12 LDS I&R ONLY RADIOLOGI 35405 [place] FRANCESCA C EXAM 7 MEDICAL CHEST 2 IMAGING VIEWS ASS FRONTAL&L ATERAL ECG 32288 LAMIN LAMIN ROUTINE 7 PHYSICIAN PHYSICIAN ECG S, PLLC S, PLLC W/LEAST 12 LDS I&R ONLY RADIOLOGI 26622 [place] [facility] 7 MEDICAL EXAMINATI IMAGING ON CHEST ASS SINGLE VIEW FRONTAL RADIOLOGI 18676 [facility] 7 MEDICAL EXAMINATI [place]AGING [place] [address] [facility] NEW/RPLCM 7 PHYSICIAN T PRM PM S GROUP W/TRANSV ELTRD ATRIAL&VE NT ECG 60192 [facility] BEVERLY ROUTINE 7 [facility] W/LEAST P 12 LDS I&R ONLY ECG 70283 [facility] ROUTINE 7 [facility] W/LEAST P 12 LDS I&R ONLY RADIOLOGI 37163 [facility] 7 MEDICAL EXAMINATI IMAGING ON CHEST ASS SINGLE VIEW FRONTAL ALBUTEROL J7620 YOUR YOUR TO 2.5 7 PHARMACY PHARMACY [facility] [employer] [facility] IPRATROPI UM BROM TO 0.5 MG ADMN SET A7003 YOUR YOUR SM VOL 7 PHARMACY PHARMACY NONFILTR LLC LLC PNEUMAT NEBULIZR DISPBL ECG 02123 [facility] ROUTINE 7 PHYSICIAN ECG S GROUP W/LEAST 12 LDS I&R ONLY O2 CONC 1 E1390 [facility] VARMA 7 HOME HOME 85%/>02 MEDICAL MEDICAL CONC AT EQUIPME EQUIPME PRSC FLW RATE CT THORAX 76985 [facility] 7 MEDICAL W/CONTRAS IMAGING T ASS MATERIAL ADMN SET A7003 YOUR YOUR SM VOL 7 PHARMACY PHARMACY NONFILTR LLC LLC PNEUMAT NEBULIZR DISPBL ALBUTEROL J7620 YOUR YOUR TO 2.5 7 PHARMACY PHARMACY [facility] [employer] [facility] IPRATROPI UM BROM TO 0.5 MG ALBUTEROL J7620 A C A C TO 2.5 7 PILAR QUEZADA MD MG & PSC PSC IPRATROPI UM BROM TO 0.5 MG ECG 20215 [facility] ROUTINE 7 PHYSICIAN ECG S GROUP W/LEAST 12 LDS I&R ONLY O2 CONC 1 E1390 [facility]IS PORT 7 HOME HOME 85%/>02 MEDICAL MEDICAL CONC AT EQUIPME EQUIPME PRSC FLW RATE NONINVASI 07661 [facility] AYALA VE 7 MEM HOS[facility]OS[facility] EAR/PULSE INC INC OXIMETRY SINGLE DETER R & L HRT 72612 [facility] CATH 7 PHYSICIAN WINJX HRT S GROUP ART& L VENTR [facility] G0378 LUC[facility] AYALA OBSERVATI 7 MEM [facility] ON INC INC SERVICE [facility] G0378 LUCY AYALA OBSERVATI 7 [facility] H[facility]OS[facility] ON INC INC SERVICE PER HOUR NONINVASI 48501 L[facility] AYALA VE 7 [facility] EAR/PULSE INC INC OXIMETRY SINGLE DETER ECG [id number] [facility] ROUTINE 7 [facility] ECG INC INC W/LEAST 12 LDS TRCG ONLY W/O I&[place] [address] [facility] INFUSION 7 [facility] THERAPY/P INC INC ROPHYLAXI S /DX 1ST TO 1 HR ECG 72992 LUCY ELIZABETH JR ROUTINE 7 [facility] W/LEAST P 12 LDS I&[place] [address] [facility] INFUSION 7 [facility] THER INC INC PROPH ADDL SEQUENTIA L TO 1 [facility] G0378 [facility] OBSERVATI 7 [facility] ON INC INC SERVICE PER HOUR RADIOLOGI 45225 [facility] C 7 [facility] EXAMINATI INC INC ON CHEST SINGLE VIEW FRONTAL ADMN SET [id number] YOUR YOUR SM VOL 7 PHARMACY PHARMACY [employer] PNEUMAT NEBULIZR DISPBL ALBUTEROL J7620 YOUR YOUR TO 2.5 7 PHARMACY PHARMACY [employer] IPRATROPI UM BROM TO 0.5 MG O2 CONC 1 E1390 [facility] 7 HOME HOME 85%/>02 MEDICAL MEDICAL CONC AT EQUIPME EQUIPME PRSC FLW RATE O2 CONC 1 E1390 [facility] [place] 7 HOME HOME 85%/>02 MEDICAL MEDICAL CONC AT EQUIPME EQUIPME PRSC FLW RATE SBSQ 32511 [facility] 7 MEDICAL CARE/DAY SERV 25 FOUNDATIO MINUTES N RADIOLOGI 83671 [facility] EXAM 7 MEDICAL MEDICAL CHEST 2 IMAGING [...] YOUR YOUR SM VOL 6 PHARMACY PHARMACY [employer] PNEUMAT NEBULIZR DISPBL PHRM Q0513 YOUR YOUR DISPENSIN 6 PHARMACY PHARMACY G F[employer] INHALATIO N RX; PER 30 DAYS ALBUTEROL J7620 YOUR YOUR TO 2.5 6 PHARMACY PHARMACY [employer] IPRATROPI UM BROM TO 0.5 MG O2 CONC 1 E1390 [facility] 6 HOME HOME 85%/>02 MEDICAL MEDICAL CONC AT EQUIPME EQUIPME PRSC [facility] G0463 [facility] OUTPATIEN 6 [facility] T CLIN INC INC VISIT ASSESS & MGMT PT O2 CONC 1 E1390 [facility] [place] 6 HOME HOME 85%/>02 MEDICAL MEDICAL CONC AT EQUIPME EQUIPME PRSC FLW RATE BLOOD 82941 LUC[facility]AL[facility] COUNT 6 [facility] COMPLETE INC INC AUTO&AUTO DIFRNTL WBC LOCM Q9967 LUCY AYALA [phone] [facility] MG/ML INC INC IODINE CONCENTRA TION PER ML COLLECTIO 54378 LUC[facility] AYAL[facility] N VENOUS 6 [facility] BLOOD INC INC VENIPUNCT URE COMPREHEN 27271 LUCY AYALA SIVE 6 [facility] [address] LUCY AYALA ABDOMEN 6 [facility] W/CONTRAS INC INC T MATERIAL ANES [id number] [facility] - CHEYENNE UPPER GI 6 ANESTH PALMA ENDOSCOPY OF THE PROXIMAL BLUE TO DUODENUM O2 CONC 1 E1390 MILDRED BARBERRELL DEL PORT 6 HOME HOME 85%/>02 MEDICAL MEDICAL CONC AT [facility] FLW RATE O2 CONC 1 E1390 MILDREDTEJINDER PENA DEL PORT 6 HOME MAR 85%/>02 MEDICAL CONC AT [facility] FLW RATE RADEX 51718 LUCY AYALA UPPER GI 6 [facility] W/WO INC INC GLUCAGON/ DELAY IMAGES W/KUB RADEX 41020 [place] FONT[facility] ALL UPPER GI 6 MEDICAL W/WO IMAGING GLUCAGON/ ASS DELAY IMGES W/O KUB FLOW 36291 MOLECULAR MOLECULAR CYTOMETRY [address] [facility] PATHOLOGY PATHOLOGY 2-8 LAB NETW LAB NETW MARKERS COLLECTIO 03514 LUCY AYALA N VENOUS 6 [facility] BLOOD INC INC VENIPUNCT URE FLOW 01794 LUCY AYALA CYTOMETRY 6 [facility] CELL INC INC SURF MARKER TECHL ONLY EA FLOW 16221 LUCY AYALA CYTOMETRY 6 [facility] CELL INC INC SURF MARKER TECHL ONLY 1ST NEBULIZER E0570 MILDRED LEVY WITH 6 HOME HOME COMPRESSO MEDICAL MEDICAL R EQUIPME EQUIPME O2 CONC 1 E1390 MILDRED DILLON DEL PORT 6 HOME KEY 85%/>02 MEDICAL CONC AT [facility] FLW RATE WALKER E0143 [facility] FOLDING 6 WHEELED ADJUSTABL E/FIXED HEIGHT SEAT E0156 [facility] ATTACHMEN 6 T WALKER ECG 71885 [place] TANIYA ABIMAEL ROUTINE 6 MEDICAL ECG SERV W/LEAST FOUNDATIO 12 LDS N I&R ONLY ECG 95775 [place] PELAEZ ROUTINE 6 MEDICAL NAN ECG SERV W/LEAST FOUNDATIO 12 LDS N I&R ONLY RADIOLOGI 94446 [place] JAMES CON C 6 MEDICAL EXAMINATI SERV ON CHEST FOUNDATIO SINGLE N VIEW FRONTAL SBSQ 44722 [facility] 6 MEDICAL KEYANA CARE/DAY SERV 25 FOUNDATIO MINUTES N RADIOLOGI 85289 [place] ZAGUROVSK C 6 MEDICAL AYA MAR EXAMINATI SERV ON CHEST FOUNDATIO SINGLE N VIEW FRONTAL SBSQ 03012 [facility] 6 MEDICAL KEYANA CARE/DAY SERV 15 FOUNDATIO MINUTES N SBSQ [address]23 [facility] 6 MEDICAL KEYANA CARE/DAY SERV 15 FOUNDATIO MINUTES N RADIOLOGI 40748 [place] ARMENDARIZ JENNA C 6 MEDICAL EXAMINATI SERV ON CHEST FOUNDATIO SINGLE N VIEW FRONTAL RADIOLOGI 85139 [place] MAHMOOD LEATHA C 6 MEDICAL EXAMINATI SERV ON CHEST FOUNDATIO SINGLE N VIEW FRONTAL SBSQ 83018 [facility] 6 MEDICAL CARE/DAY SERV 25 FOUNDATIO MINUTES N SBSQ 79293 [facility] 6 MEDICAL CARE/DAY SERV 25 FOUNDATIO MINUTES N RADIOLOGI 14827 [place] MHAMOOD LEATHA C 6 MEDICAL EXAMINATI SERV ON CHEST FOUNDATIO SINGLE N VIEW FRONTAL ECG 96167 [facility] ROUTINE 6 MEDICAL ECG SERV W/LEAST FOUNDATIO 12 LDS N I&R ONLY RADEX 05673 [place] OTTO ABDOMEN 1 6 MEDICAL SUSAN SERV ANTEROPOS FOUNDATIO TERIOR N VIEW RADEX 85113 [facility] 1 6 Y OF CAR [facility] TERIOR VIEW ECG 65584 [place] [facility] R[facility] 6 MEDICAL ECG SERV W/LEAST FOUNDATIO 12 LDS N I&R ONLY RADIOLOGI 25306 [place] JAMES CON C 6 MEDICAL EXAMINATI SERV ON CHEST FOUNDATIO SINGLE N VIEW FRONTAL CRITICAL 02457 [place] [facility] CARE 6 MEDICAL ILL/INJUR SERV ED FOUNDATIO PATIENT N INIT 30-74 MIN SBSQ 13498 [place] [facility] 6 MEDICAL CARE/DAY SERV 25 FOUNDATIO MINUTES N RADIOLOGI 82763 [place] JONAHGUROVSK C 6 MEDICAL AYA MAR EXAMINATI SERV ON CHEST FOUNDATIO SINGLE N VIEW FRONTAL CT THORAX 08078 [place] JAMES CON 6 MEDICAL W/[place] [address] [place] ERYEZ CLEO ABDOMEN & 6 MEDICAL PELVIS SERV W/CONTRAS FOUNDATIO T N MATERIAL RADEX 97436 [facility] 6 Y [facility] CAR [facility] TERIOR VIEW ECG 34662 [place] SAGE CHI ROUTINE 6 MEDICAL ECG SERV W/LEAST FOUNDATIO 12 LDS N I&R ONLY ECHO 35376 ELIO [facility]ED [facility] R-[facility] 6 MEDICAL ERIKA 2D SERV W/WOM-MOD FOUNDATIO E COMPL N SPEC&COLR D RADEX ABD 27204 [place] PAULA COMPL 6 MEDICAL JURGEN AQT ABD SERV ANNEL W/S/E/D FOUNDATIO VIEWS 1 N VIEW CH RADIOLOGI 17846 [place] JAMES CON C 6 MEDICAL EXAMINATI SERV ON CHEST FOUNDATIO SINGLE N VIEW FRONTAL SBSQ 10299 [facility] 6 MEDICAL AND CARE/DAY SERV 25 FOUNDATIO MINUTES N INITIAL 68375 [facility] 6 MEDICAL SUN KAYODE CARE/DAY SERV 30 FOUNDATIO MINUTES N SBSQ 98584 [facility] 6 MEDICAL AND CARE/DAY SERV 25 FOUNDATIO MINUTES N RADIOLOGI 63399 [place] JAMES CON C 6 MEDICAL EXAMINATI SERV ON CHEST FOUNDATIO SINGLE N VIEW FRONTAL RADIOLOGI 94481 [place] JAMES CON C 6 MEDICAL EXAMINATI SERV ON CHEST FOUNDATIO SINGLE N VIEW FRONTAL ECG 02802 [place] SAGE CHI ROUTINE 6 MEDICAL ECG SERV W/LEAST FOUNDATIO 12 LDS N I&R ONLY RADIOLOGI 00250 [place] ZAGUROVSK C 6 MEDICAL AYA MAR EXAMINATI SERV ON CHEST FOUNDATIO SINGLE N VIEW FRONTAL RADEX 16841 [facility] ABDOM[facility] 1 6 Y OF [facility] TERIOR VIEW RADEX 28266 [place] ZAGUROVSK ABDOMEN 1 6 MEDICAL AYA MAR SERV ANTEROPOS FOUNDATIO TERIOR N VIEW RADIOLOGI 41554 [place] ROBBINS C 6 MEDICAL JESS EXAMINATI SERV ON CHEST FOUNDATIO SINGLE N VIEW FRONTAL RADIOLOGI 03563 [place] ZAGUROVSK C 6 MEDICAL AYA MAR EXAMINATI SERV ON CHEST FOUNDATIO SINGLE N VIEW FRONTAL CT THORAX 77221 [place] ARMENDARIZ JENNA 6 MEDICAL W/[place] [address] [place] AYOOB AND ABDOMEN & 6 MEDICAL PELVIS SERV W/CONTRAS FOUNDATIO T N MATERIAL RADEX 02660 [facility] ABDOM[facility] 1 6 [facility] TERIOR VIEW RADEX 26053 [facility] ABDOMEN 1 6 Y OF [facility] TERIOR VIEW SBSQ 22713 [facility] 6 MEDICAL AND CARE/DAY SERV 25 FOUNDATIO MINUTES N SBSQ 54782 [facility] 6 MEDICAL AND CARE/DAY SERV 25 FOUNDATIO MINUTES N RADIOLOGI 09026 [place] DELL CAR C 6 MEDICAL EXAMINATI SERV ON CHEST FOUNDATIO SINGLE N VIEW FRONTAL RADIOLOGI 11779 [place] JAMES CON C 6 MEDICAL EXAMINATI SERV ON CHEST FOUNDATIO SINGLE N VIEW FRONTAL ECG 70606 [place] PELAEZ ROUTINE 6 MEDICAL NAN ECG SERV W/LEAST FOUNDATIO 12 LDS N I&R ONLY ECG 91389 [place] HUI MIKHAIL ROUTINE 6 MEDICAL ECG SERV W/LEAST FOUNDATIO 12 LDS N I&R ONLY SBSQ 11837 [facility] 6 MEDICAL RONNY CARE/DAY SERV 25 FOUNDATIO MINUTES N ARTL 51534 [facility] CATH/[facility] 6 Y OF Y OF [facility] [place] [address] ELIO HIEU SURG 6 MEDICAL FRANCO PATHOLOGY SERV FOUNDATIO GROSS&JESS N ROSCOPIC EXAM LEVEL III 18433 ELIO HIEU SURG 6 MEDICAL FRANCO PATHOLOGY SERV FOUNDATIO GROSS&JESS N ROSCOPIC EXAM RPR 1ST 99274 ELIO RAYMOND INGUN 6 MEDICAL RONNY HRNA AGE SERV 5 YRS/> FOUNDATIO INCARCERA N KISHOR ANESTHESI 84399 [facility] BET A HERNIA 6 Y OF REPAIR [facility] ABDOMEN NOS INJECTION J2405 LUCY AYALA 6 [facility] ONDANSETR INC INC ON HCL PER [address] [place] [address] LUCY AYALA AMYLASE 6 [facility] INC INC CREATINE 70065 LUCY AYALA KINASE MB 6 [facility] FRACTION INC INC ONLY COMPREHEN 33141 LUCY AYALA SIVE 6 [facility] METABOLIC INC INC PANEL INITIAL 88242 [facility] 6 MEDICAL CHR CARE/DAY SERV 50 FOUNDATIO MINUTES N GROUND A0425 [facility] MILEAGE 6 AMBULANCE AMBULANCE PER SERVICE SERVICE STATUTE MILE AMBULANCE A0429 [facility] SERVICE 6 AMBULANCE AMBULANCE BLS SERVICE SERVICE EMERGENCY TRANSPORT RADIOLOGI 21950 [place] FONT[facility] ALL C 6 MEDICAL EXAMINATI IMAGING ON CHEST ASS SINGLE VIEW FRONTAL THER 10357 LUCY AYALA PROPH/DX 6 [facility] NJX EA INC INC SEQL IV PUSH SBST/DRUG FAC INJ J2543 LUCY AYALA PIPERACIL 6 [facility] YONATHAN INC INC SOD/TAZOB ACTAM SOD 1 G/0.125 G BLOOD 96544 LUCY AYALA COUNT 6 [facility] COMPLETE INC INC AUTO&AUTO DIFRNTL WBC ECG 84142 LUCY BEVERLY ROUTINE 6 [facility] W/LEAST P 12 LDS I&[place] [address] LUCY AYALA TROPONIN 6 [facility] [place] [address] [place] FONT[facility] ALL ABDOMEN & 6 MEDICAL PELVIS IMAGING W/O ASS CONTRAST MATERIAL ECG 36439 LUCY AYALA ROUTINE 6 [facility] ECG INC INC W/LEAST 12 LDS TRCG ONLY W/[place] [address] LUCY AYALA INFUSION 6 [facility] THERAPY/P INC INC ROPHYLAXI S /DX 1ST TO 1 HR CREATINE 04825 LUCY AYALA KINASE 6 [facility] [place] [address] LUCY AYALA LIPASE 6 [facility] INC INC BLOOD 35741 Darnell ROY JENNA COUNT 6 PILAR PLEITEZ COMPLETE PSC AUTO&AUTO DIFRNTL WBC COLLECTIO 53187 Darnell WEST N VENOUS 6 PILAR PLEITEZ BLOOD PSC VENIPUNCT URE NEBULIZER E0570 MILDRED LEVY WITH 6 HOME HOME COMPRESSO MEDICAL MEDICAL R EQUIPME EQUIPME ECG 22558 LUCY BEVERLY ROUTINE 6 [facility] W/LEAST P 12 LDS I&R ONLY INITIAL [address]/DAY INTERNAL 70 MED MINUTES RADIOLOGI 83292 [place] FRANCESCA 6 MEDICAL EXAMINATI IMAGING ON CHEST ASS SINGLE VIEW FRONTAL NEBULIZER E0570 MILDRED LEVY WITH 6 HOME HOME COMPRESSO MEDICAL MEDICAL R EQUIPME EQUIPME ALBUTEROL J7620 YOUR YOUR TO 2.5 6 PHARMACY PHARMACY [employer] IPRATROPI UM BROM TO 0.5 MG RADIOLOGI 53239 [place] FONT[facility] C 6 MEDICAL EXAMINATI IMAGING ON CHEST ASS SINGLE VIEW FRONTAL ADMN SET A7003 YOUR YOUR SM VOL 6 PHARMACY PHARMACY [employer] LLC PNEUMAT NEBULIZR DISPBL BLOOD 64885 LUCY AYALA COUNT 6 [facility] COMPLETE INC INC AUTO&AUTO DIFRNTL WBC COLLECTIO 46797 LUCY AYALA N VENOUS 6 [facility] BLOOD INC INC VENIPUNCT URE COMPREHEN 44701 LUCY AYALA SIVE 6 [facility] METABOLIC INC INC PANEL RADIOLOGI 38214 LUCY AYALA C EXAM 6 [facility] CHEST 2 INC INC VIEWS FRONTAL&L ATERAL PHRM Q0513 YOUR YOUR DISPENSIN 6 PHARMACY PHARMACY [employer] INHALATIO N RX; PER 30 DAYS NEBULIZER E0570 MILDRED LEVY WITH 6 HOME HOME COMPRESSO MEDICAL MEDICAL R EQUIPME EQUIPME NEBULIZER E0570 MILDRED LEVY WITH 6 HOME HOME COMPRESSO MEDICAL MEDICAL R EQUIPME EQUIPME ALBUTEROL J7620 YOUR YOUR TO 2.5 5 PHARMACY PHARMACY [employer] IPRATROPI UM BROM TO 0.5 MG PHRM Q0513 YOUR YOUR DISPENSIN 5 PHARMACY PHARMACY [employer] INHALATIO N RX; PER 30 DAYS RADIOLOGI 96535 [place] ESTEE [facility] C EXAM 5 MEDICAL CHEST 2 IMAGING VIEWS ASS FRONTAL&L ATERAL CT THORAX 51664 LUCY AYALA 5 [facility] W/CONTRAS INC INC T MATERIAL RADIOLOGI 05967 LUCY AYALA C EXAM 5 [facility] CHEST 2 INC INC VIEWS FRONTAL&L ATERAL ALBUTEROL J7620 YOUR YOUR TO 2.5 5 PHARMACY PHARMACY [employer] IPRATROPI UM BROM TO 0.5 MG NEBULIZER E0570 MILDRED LEVY WITH 5 HOME HOME COMPRESSO MEDICAL MEDICAL R EQUIPME EQUIPME PHARM G0333 YOUR YOUR DISPEN 5 PHARMACY PHARMACY [employer] RX; INITIAL 30-DAY SUPPLY CATARACT 72856 [facility] REMOVAL 5 JAMILAH JAMILAH INSERTION OF LENS [...] EQUIPME EQUIPME ARWAY PRESS DEVICE EA POLYSOM 67309 NEERAJ KERN MAR 6/>YRS 4 SLEEP 4/> NEUROSCIE ADDL NCES CENT AMA ATTND POLYSOM 24808 LUCY AYALA 6/>YRS 4 [facility] SLEEP 4/> INC INC ADDL AMA ATTND IMC/IMC G0461 LUCY AYALA PER 4 [facility] SPECIMEN; INC INC 1ST SNGL/MPX ANTIBODY STN SPECIAL 55195 LUCY AYALA STAIN 4 [facility] GROUP 1 INC INC MICROORGA NISMS I&R SPCL STN 27160 LUCY AYALA 2 I&R 4 [facility] EXCPT INC INC MICROORG/ ENZYME/[place] L[place] [address] LUCY AYALA SURG 4 [facility] PATHOLOGY INC INC GROSS&[place] [address] LUCY AYALA INFUSION 4 [facility] THERAPY INC INC PROPHYLAX IS/[place] [address] LUCY AYALA INFUSION 4 [facility] THERAPY/P INC INC ROPHYLAXI S /DX 1ST TO 1 HR SPMTRY 89810 LUCY AYALA W/VC 4 [facility] EXPIRATOR INC INC Y ALFREDO W/WO MXML VOL VNTJ ECHO 43472 LUCY AYALA TTHRC R-T 4 [facility] 2D INC INC W/WOM-MOD E COMPL SPEC&COLR D CV STRS 09527 KEITH MORENO TST 4 XERS&/OR RX CONT ECG W/O I&R MYOCARDIA 01973 LUCY Parra SPECT 4 [facility] MULTIPLE INC INC STUDIES MYOCARDIA 08896 TEX Parra 4 MEDICAL EMY PERFUSION IMAGING PLANAR ASS MULTIPLE STUDIES CV STRS 42628 GLENN JR GLENN JR TST 4 DWI DWI XERS&/OR RX CONT ECG I&R ONLY RADIOLOGI 77744 [facility] EXAM 4 MEDICAL EMY CHEST 2 IMAGING [...] SONE ACETATE & PHOSPHATE 3 MG RADIOLOGI 11853 [facility] C EXAM 3 EMY EMY CHEST 2 VIEWS FRONTAL&L ATERAL INJECTION J0690 JAMES JAMES [...] RENT; EQUIPME EQUIPME FLWMTR HUMIDFR&M ASK 3D 42098 LUCY AYALA RENDERING 2 [facility] INC INC W/INTERP& POSTPROC DIFF WORK STATION CT THORAX 69471 LUCY AYALA W/O 2 [facility] CONTRAST INC INC MATERIAL PRTBLE E0431 MILDRED MILDRED GASEOUS 2 HOME HOME O2 SYS MEDICAL MEDICAL RENT; EQUIPME EQUIPME FLWMTR HUMIDFR&M ASK TOBACCO 39607 JAMES JAMES USE 2 DON DON CESSATION INTERMEDI ATE 3-10 MINUTES PRTBLE E0431 MILDRED MILDRED GASEOUS 2 HOME HOME O2 SYS MEDICAL MEDICAL RENT; EQUIPME EQUIPME FLWMTR HUMIDFR&M ASK PRTBLE E0431 MILDRED MILDRED GASEOUS 2 HOME HOME O2 SYS MEDICAL MEDICAL RENT; EQUIPME EQUIPME FLWMTR HUMIDFR&M ASK RADIOLOGI 68503 [facility] C EXAM 2 MEDICAL EMY CHEST 2 IMAGING VIEWS ASS FRONTAL&L ATERAL SPMTRY 42738 LUCY AYALA W/VC 2 [facility] EXPIRATOR INC INC Y ALFREDO W/WO MXML VOL VNTJ PRTBLE E0431 MILDRED MILDRED GASEOUS 2 HOME HOME O2 SYS MEDICAL MEDICAL RENT; EQUIPME EQUIPME FLWMTR HUMIDFR&M ASK SMR PRIM 27789 LUCY AYALA SRC 2 [facility] GRAM/GIEM INC INC SA STAIN BCT FUNGI/VAHID L CELL 83740 LUCY AYALA COUNT 2 [facility] MISC BODY INC INC FLUIDS W/DIFFERE NTIAL COUNT CYTP 70382 PATHOLOGY PATHOLOGY SLCTV 2 & & CELL CYTOLOGY CYTOLOGY ENHANCEME LAB LAB NT INTERPJ XCPT C/V COLLECTIO 79776 LUCY AYALA N VENOUS 2 [facility] BLOOD INC INC VENIPUNCT URE RADIOLOGI 11428 [facility] C EXAM 2 MEDICAL EMY CHEST 2 IMAGING VIEWS ASS FRONTAL&[place] [address] LUCY AYALA IRON 2 [facility] INC INC CARBOXYHE 07472 LUCY AYALA MOGLOBIN 2 [facility] QUANTITAT INC INC ARCENIO THORACENT 61235 [facility] ESIS 2 MEDICAL EMY PUNCTURE IMAGING PLEURAL ASS CAVITY ASPIRATIO N TISS FRED 23607 LUCY AYALA SLIDE 2 [facility] SAMPS INC INC SKN/HR/NL S FNGI/[place] [address] [facility] GUIDANCE 2 MEDICAL EMY NEEDLE IMAGING PLACEMENT ASS CUL BACT 99399 LUCY AYALA XCPT 2 [facility] URINE INC INC BLOOD/STO OL AEROBIC ISOL CULTURE 28296 LUCY AYALA BACTERIAL 2 [facility] ANY INC INC SOURCE ANAEROBIC ISO&ID CULTURE 75453 LUCY AYALA TUBERCLE/ 2 [facility] OTH INC INC ACID-FAST BACILLI ANY ISOL CT THORAX 02235 [facility] FRANCESCA W/O 2 MEDICAL EMY CONTRAST IMAGING MATERIAL ASS LACTATE 60154 LUCY AYALA DEHYDROGE 2 [facility] NASE LDH INC INC PROTEIN 72948 LUCY AYALA XCPT 2 [facility] REFRACTOM INC INC ETRY SERUM PLASMA/WH L BLD BLOOD 01044 LUCY LUCY GASES ANY 2 [facility] INC INC COMBINATI ON PH PCO2 PO2 CO2 HCO3 GLUCOSE 37816 LUCY BOBON BODY 2 [facility] FLUID INC INC OTHER THAN BLOOD IRON 78119 LUCY LUCY BINDING 2 [facility] CAPACITY INC INC NONINVASI 16385 LUCYJOAN BOBON VE 2 [facility] EAR/PULSE INC INC OXIMETRY SINGLE DETER CYANOCOBA 66191 LUCY LUCY BETTIE 2 [facility] VITAMIN INC INC B-12 ECG 32089 LUCY AYALA ROUTINE 2 [facility] ECG INC INC W/LEAST 12 LDS TRCG ONLY W/O I&R ECG 78463 RUSH BVEERLY ROUTINE 2 JENNA JENNA ECG W/LEAST 12 LDS I&R ONLY CT THORAX 75867 LUCY LUCY W/O 2 [facility] CONTRAST INC INC MATERIAL 3D 91341 [facility] FRANCESCA RENDERING 2 MEDICAL EMY IMAGING W/INTERP& ASS POSTPROC DIFF WORK STATION SPUTUM 48638 LUCYJOAN AYALA OBTAINING 2 [facility] SPEC INC INC AEROSOL INDUCED TX SPX PRTBLE E0431 MILDRED LEVY GASEOUS 2 HOME HOME O2 SYS MEDICAL MEDICAL RENT; EQUIPME EQUIPME FLWCTR HUMIDFR&M ASK PRTBLE E0431 MILDRED MILDRED GASEOUS 2 HOME HOME O2 SYS MEDICAL MEDICAL RENT; EQUIPME EQUIPME FLWMTR HUMIDFR&M ASK SPMTRY 89962 MARIS POLLOCK W/VC 2 JAM JAM EXPIRATOR Y ALFREDO W/WO MXML VOL VNTJ PRTBLE E0431 MILDREDTEJINDER BARBERRELL GASEOUS 2 HOME HOME O2 SYS MEDICAL MEDICAL RENT; EQUIPME EQUIPME FLWMTR HUMIDFR&M ASK PRTBLE E0431 MILDREDTEJINDER BARBERRELL GASEOUS 2 HOME HOME O2 SYS MEDICAL MEDICAL RENT; EQUIPME EQUIPME FLWMTR HUMIDFR&M ASK RADIOLOGI 71458 JAMESKRISTA JAMES C EXAM 2 DON DON CHEST 2 VIEWS FRONTAL&L ATERAL CT THORAX 80200 [facility] MEDICAL EMY W/CONTRAS IMAGING T ASS MATERIAL BLOOD 52739 COMBINED COMBINED COUNT 2 PHYSICIAN PHYSICIAN COMPLETE S LA S LA AUTO&AUTO DIFRNTL WBC LIPID 77997 COMBINED COMBINED PANEL 2 PHYSICIAN PHYSICIAN S LA S LA COMPREHEN 72947 COMBINED COMBINED SIVE 2 PHYSICIAN PHYSICIAN [place] [address] COMBINED COMBINED PROSTATE 2 PHYSICIAN PHYSICIAN SPECIFIC S LA S LA ANTIGEN TOTAL PRTBLE E0431 MILDRED BARBERRELL GASEOUS 2 HOME HOME O2 SYS MEDICAL MEDICAL RENT; EQUIPME EQUIPME FLWMTR HUMIDFR&M ASK O2 CONC 1 E1390 MILDRED LEVY DEL PORT 2 HOME HOME 85%/>02 MEDICAL MEDICAL CONC AT EQUIPME EQUIPME PRSC FLW RATE O2 CONC 1 E1390 MILDRED BARBERRELL DEL PORT 1 HOME HOME 85%/>02 MEDICAL [...] 85%/>02 MEDICAL MEDICAL CONC AT EQUIPME EQUIPME [facility] FLW RATE O2 CONC 1 E1390 MILDRED VARMA 1 HOME HOME 85%/>02 MEDICAL MEDICAL CONC AT EQUIPME EQUIPME [facility] FLW RATE PRTBLE E0431 MILDRED LEVY GASEOUS 1 HOME HOME O2 SYS MEDICAL MEDICAL RENT; EQUIPME EQUIPME FLWCTR HUMIDFR&M ASK PRTBLE E0431 MILDRED LEVY GASEOUS 1 HOME HOME O2 SYS MEDICAL MEDICAL RENT; [facility]K O2 CONC 1 E1390 MILDRED VARMA 1 HOME HOME 85%/>02 MEDICAL MEDICAL CONC AT EQUIPME EQUIPME [facility] FLW RATE O2 CONC 1 E1390 MILDRED LUIS [facility] 1 HOME MED HOME MED 85%/>02 EQUIP. L EQUIP. L CONC AT [facility] FLW RATE PRTBLE E0431 MILDRED LEVY GASEOUS 1 HOME MED HOME MED O2 SYS EQUIP. L EQUIP. L RENT; [facility] HUMIDFR&M ASK PRTBLE E0431 MILDRED LEVY GASEOUS 1 HOME MED HOME MED O2 SYS EQUIP. L EQUIP. L RENT; [facility] HUMIDFR&M ASK O2 CONC 1 E1390 MIL[place]ED [place] 1 HOME MED HOME MED 85%/>02 EQUIP. L EQUIP. L CONC AT [facility] FLW RATE O2 CONC 1 E1390 MILDRED LUIS [facility] 1 HOME MED HOME MED 85%/>02 EQUIP. L EQUIP. L CONC AT [facility] FLW RATE PRTBLE E0431 MILDRED LEVY GASEOUS 1 HOME MED HOME MED O2 SYS EQUIP. L EQUIP. L [facility]; [facility] PRTB[facility] E0431 MILDRED LEVY GASEOUS 1 HOME MED HOME MED O2 SYS EQUIP. L EQUIP. L RENT; [facility] HUMIDFR&M ASK O2 CONC 1 E1390 MILDRED LUIS [facility] 1 HOME MED HOME MED 85%/>02 EQUIP. L EQUIP. L CONC AT [facility] FLW RATE O2 CONC 1 E1390 MILDRED [place] 1 HOME MED HOME MED 85%/>02 EQUIP. L EQUIP. L CONC AT [facility] FLW RATE PRTBLE E0431 MILDRED LEVY GASEOUS 1 HOME MED HOME MED O2 SYS EQUIP. L EQUIP. L RENT; [facility] HUMIDFR&M ASK PRTBLE E0431 MILDRED BARBERRELL GASEOUS 0 HOME MED HOME MED O2 SYS EQUIP. L EQUIP. L RENT; [facility] HUMIDFR&M ASK O2 CONC 1 E1390 MILDRED LEVY [place] 0 HOME MED HOME MED 85%/>02 EQUIP. L EQUIP. L CONC AT [facility] FLW RATE O2 CONC 1 E1390 MILDRED [place] 0 HOME MED HOME MED 85%/>02 EQUIP. L EQUIP. L CONC AT [facility] FLW RATE PRTBLE E0431 MILDRED BARBERRELL GASEOUS 0 HOME MED HOME MED O2 SYS EQUIP. L EQUIP. L RENT; [facility] HUMIDFR&M ASK PRTBLE E0431 MILDRED BARBERRELL GASEOUS 0 HOME MED HOME MED O2 SYS EQUIP. L EQUIP. L RENT; [facility] HUMIDFR&M ASK O2 CONC 1 E1390 MILDRED LEVY [place] 0 HOME MED HOME MED 85%/>02 EQUIP. L EQUIP. L CONC AT [facility] FLW RATE O2 CONC 1 E1390 [place] 0 HOME MED HOME MED 85%/>02 EQUIP. L EQUIP. L CONC AT [facility] FLW RATE PRTBLE E0431 MILDRED LEVY GASEOUS 0 HOME MED HOME MED O2 SYS EQUIP. L EQUIP. L RENT; [facility] HUMIDFR&M ASK SMR PRIM 07705 [facility] SRC 0 Y Y [facility] ST[facility] BCT FUNGI/VAHID L VIRUS 78986 [facility] 0 Y Y E [facility] ID IMFLUOR STAIN EA CYTP FINE 55692 [place] REINA NDL 0 MEDICAL ASPIRATE SERV IMMT FOUNDATIO CYTOHIST STD DX 1ST CYTP EVAL 69370 [place] REINA FINE 0 MEDICAL NEEDLE SERV ASPIRATE FOUNDATIO INTERP & REPORT CONCENTRA 54755 [facility] TION 0 Y Y INFECTIOU [facility] S AGENTS VIRUS 71077 [facility] TISS CUL 0 [facility]ATHI C EFFECT IADNA NOS 01552 [facility] 0 Y Y AMPLIFIED [facility] PROBE TQ EACH ORGANISM CULTURE 05026 [facility] FUNGI 0 Y Y DEFINITINYU [facility] E ID EACH ORGANISM YEAST CELL 92812 [facility] COUNT 0 Y Y MISC BODY [facility] FLUIDS W/[place] [address] [place] SURG 0 MEDICAL BRILL YOL PATHOLOGY SERV FOUNDATIO GROSS&JESS ROSCOPIC EXAM CULTURE 52916 [facility] TUBERCLE/ 0 Y Y OTH [facility] ACID-FAST BACILLI ANY ISOL SMR PRIM 66087 [facility] SRC 0 Y Y FLUORESCE [facility] NT&/AFS BCT FNGI PARASIT CUL BACT 44466 [facility] XCPT 0 Y Y URINE [facility] BLOOD/STO OL AEROBIC ISOL BRNCHSC 54913 [facility] W/BRNCL 0 Y Y ALVEOLAR [facility] LAVAGE TISS FRED 66166 [facility] SLIDE 0 Y Y [facility] SKN/HR/NL S FNGI/ECTO PARASIT IAADI 85252 [facility] PNEUMOCUS 0 Y Y TIS [facility] CARINII CULTURE 79924 [facility] FNGI 0 Y Y MOLD/YEAS [facility] T PRSMPTV OTH XCPT BLOOD SPECIAL 87774 [place] STAIN 0 MEDICAL BRILL YOL GROUP 1 SERV MICROORGA FOUNDATIO NISMS I&R BRONCHOSC 13445 [place] OPY 0 MEDICAL MARIAN W/TRANSBR SERV ONCHIAL FOUNDATIO LUNG BX 1 LOBE BRONCHOSC 72806 [place] OPY 0 MEDICAL MARIAN NEEDLE BX SERV TRACHEA FOUNDATIO MAIN STEM&/BRO N INJECTION [id number] [facility] UNIVERS FENTANYL 0 Y Y [facility] 0.1 MG RADIOLOGI 09910 ELIO ROBBINS C 0 MEDICAL JESS EXAMINATI SERV ON CHEST FOUNDATIO [place] FRONTAL INJECTION J2250 [facility] UNIVERSIT 0 Y Y MIDAZOLAM [facility] HCL PER 1 MG O2 CONC 1 E1390 [place] 0 HOME MED HOME MED 85%/>02 EQUIP. L EQUIP. L CONC AT [facility] FLW RATE PRTBLE E0431 MILDRED LEVY GASEOUS 0 HOME MED HOME MED O2 SYS EQUIP. L EQUIP. L RENT; [facility] HUMIDFR&M ASK PHLEBOTOM 64166 COMBINED COMBINED Y 0 PHYSICIAN PHYSICIAN THERAPEUT S LA S LA IC SEPARATE PROCEDURE DUP-SCAN 40796 [facility] XTR VEINS 0 [facility] COMPLETE INC INC BILATERAL STUDY RADEX 06005 [facility] ESOPHAGUS 0 [facility] INC INC BRNCDILAT 09479 [facility] RSPSE 0 [facility] SPMTRY INC INC PRE&POST- BRNCDILAT ADMN BLOOD 48198 [facility] COUNT 0 [facility] COMPLETE INC INC AUTO&AUTO DIFRNTL WBC PULMONARY 30287 [place] POLLOCK STRESS 0 MEDICAL JAM TESTING SERV SIMPLE FOUNDATIO COMPREHEN 32827 [facility] SIVE 0 [facility] METABOLIC INC INC PANEL COLLECTIO 25948 [facility] N VENOUS 0 [facility] BLOOD INC INC VENIPUNCT URE COMPREHEN 66953 COMBINED COMBINED SIVE 0 PHYSICIAN PHYSICIAN METABOLIC S LAB S LAB PANEL COLLECTIO 02145 COMBINED COMBINED N VENOUS 0 PHYSICIAN PHYSICIAN BLOOD S LAB S LAB VENIPUNCT URE 3D 98287 [place] NELLY RENDERING 0 MEDICAL KEY IMAGING W/INTERP& ASS POSTPROC DIFF WORK STATION CT THORAX 32242 [place] NELLY W/O 0 MEDICAL KEY CONTRAST IMAGING MATERIAL ASS RADIOLOGI 41051 LUCY Wagner EXAM 0 [facility] CHEST 2 INC INC VIEWS FRONTAL&L ATERAL O2 CONC 1 E1390 [place] [place] PORT 0 HOME MED HOME MED 85%/>02 EQUIP. EQUIP. CONC AT [facility] FLW RATE PRTBLE E0431 MILDR[facility] MILDRED GASEOUS 0 HOME MED HOME MED O2 SYS EQUIP. EQUIP. RENT; [facility] FLWMTR HUMIDFR&M ASK PRTBLE E0431 MILDR[facility] MILDRED GASEOUS 0 HOME MED HOME MED O2 SYS EQUIP. EQUIP. RENT; [facility] FLWMTR HUMIDFR&M ASK RADIOLOGI 70173 ERIKA JAMES C EXAM 0 DON R DON R CHEST 2 VIEWS FRONTAL&L ATERAL O2 CONC 1 E1390 [place] [place] 0 HOME MED HOME MED 85%/>02 EQUIP. EQUIP. CONC AT [facility] FLW RATE INJECTION J1940 ERIKA JAMES, 0 DON R DON R FUROSEMID E UP TO 20 MG ECG 01711 ERIKA JAMES, ROUTINE 0 DON R DON R ECG W/LEAST 12 LDS W/I&R RADIOLOGI 51981 ERIKA JAMES C 0 DON R DON R EXAMINATI ON CHEST SINGLE [facility] 34624 ERIKA JAMES, DISCHARGE 0 DON R DON R DAY MANAGEMEN T 30 MIN/< SBSQ 97287 [facility] R DON R CARE/DAY 25 MINUTES RADIOLOGI 50076 [place] Kristy VILLEGAS EXAM 0 MEDICAL JANE P CHEST 2 IMAGING VIEWS ASSOCIATE FRONTAL&L S ATERAL SBSQ 99153 JAMES, [facility] 0 DON R DON R CARE/DAY 25 MINUTES SBSQ 65525 JAMES, [facility] 0 DON R DON R CARE/DAY 25 MINUTES SBSQ 52850 [facility] 0 DON R DON R CARE/DAY [address] THORAX 70295 [place] FRANCESCA, 0 MEDICAL SHASHI W/CONTRAS IMAGING T ASSOCIATE MATERIAL S 3D 06713 [place] FRANCESCA, RENDERING 0 MEDICAL SHASHI IMAGING W/INTERP& ASSOCIATE POSTPROC S DIFF WORK STATION SBSQ 62911 [facility] 0 DON R DON R CARE/DAY 25 MINUTES RADIOLOGI 16577 [facility] 0 DON R DON R EXAMINATI ON CHEST SINGLE VIEW FRONTAL RADIOLOGI 14207 [facility] C EXAM 0 MEDICAL SHASHI CHEST 2 IMAGING VIEWS ASSOCIATE FRONTAL&L S ATERAL INITIAL 00152 [facility] 0 DON R DON R CARE/DAY 50 MINUTES OPHTH 94651 [facility], [facility] 9 DONTE A DONTE A XM&EVAL COMPRHNSV ESTAB PT 1/> OPHTH 35625 RETINA & NINI, [facility] 9 VITREOUS CALLIE W XM&EVAL ASSOCIATE INTERMEDI S O ATE ESTAB PT SCANNING 80496 RET[facility] & NINI, [facility] 9 VITREOUS CALLIE W C IMAGING ASSOCIATE S O POSTERIOR SGM UNI INJECTION J1040 ERIKA JAMES, 8 DON R DON R METHYLPRE DNISOLONE ACETATE 80 MG SCANNING 82400 RETINA & NINI, [facility] 8 VITREOUS CALLIE W C IMAGING ASSOCIATE S O POSTERIOR SGM UNI OPHTH 84255 RETINA & NINI, [facility] 8 VITREOUS CALLIE W XM&EVAL ASSOCIATE INTERMEDI S O ATE ESTAB PT INJECTION J1040 ERIKA JAMES 8 DON R DON R METHYLPRE DNISOLONE ACETATE 80 MG OPHTH 60694 [facility] 8 DONTE A DONTE A XM&EVAL COMPRHNSV ESTAB PT 1/> OPHTH 59214 RETINA & NINI, [facility] 8 VITREOUS CALLIE W XM&EVAL ASSOCIATE INTERMEDI S O ATE ESTAB PT SCANNING 80890 [facility] NINI, [facility] 8 VITREOUS CALLIE W C IMAGING ASSOCIATE S O POSTERIOR SGM UNI INJECTION J1040 ERIKA JAMES, Adán RUTHERFORD R KRISH R METHYLPRE DNISOLONE ACETATE 80 MG RADIOLOGI 39930 ERIKA JAMES C EXAM 8 DON R KRISH R CHEST 2 VIEWS FRONTAL&L ATERAL SCANNING 32639 [facility] & [facility] 8 VITREOUS VITREOUS C IMAGING ASSOCIATE ASSOCIATE S O S O POSTERIOR SGM UNI OPHTH 68212 [facility] & MEDICAL 8 VITREOUS VITREOUS XM&EVAL ASSOCIATE ASSOCIATE INTERMEDI S O S O ATE ESTAB PT OPHTH 91240 [facility] & MEDICAL 8 VITREOUS VITREOUS XM&EVAL ASSOCIATE ASSOCIATE INTERMEDI S O S O ATE ESTAB PT SCANNING 27553 [facility] & OPH[facility]MI 8 VITREOUS VITREOUS C IMAGING ASSOCIATE ASSOCIATE S O S O POSTERIOR SGM UNI INJECTION J1100 ERIKA JAMES, Adán RUTHERFORD R DON R DEXAMETHO SONE SODIUM PHOSPHATE 1 MG Encounters Encounter Start End Date Code Location Performer Type Date OFFICE 22649 [facility] OUT[facility] 7 7 PHYSICIAN T VISIT S GROUP 40 MINUTES HOSPITAL LUCY - 7 7 [facility] OFFICE 11273 [facility] 7 7 PHYSICIAN T VISIT S GROUP 25 MINUTES OFFICE 48577 [facility] OUT[facility] 7 7 PHYSICIAN T VISIT S GROUP 40 MINUTES HOSPITAL LUCY - 7 7 [facility] OUTPATIEN INC T OFFICE 68303 A Kristy ROY OUTPATIEN 7 7 PILAR PLEITEZ T VISIT [facility] 15 MINUTES OFFICE 43595 [facility] 7 Y OF CK T VISIT [place] 25 HOSPI MINUTES OFFICE 23859 A Kristy ROY OUTPATIRYLEE 7 7 PILAR [place] T VISIT [facility] 15 MINUTES HOSPITAL LUCY - 7 7 [facility] INPATIENT INC OFFICE 21127 A Kristy ROY OUTPATIEN 7 7 PILAR PLEITEZ T VISIT PSC 15 MINUTES OFFICE 93049 A Kristy ROY OUTPATIRYLEE 7 7 P[place]AR [place]LEITE[place] T VISIT PSC 15 MINUTES OFFICE 15680 A Kristy ROY OUTPATIRYLEE 7 7 PILAR PLEITEZ T VISIT PSC 15 MINUTES OFFICE 91532 [facility] POLLOCK OUTPATIEN 6 6 MEDICAL JAM T VISIT SERV 25 FOUNDATIO MINUTES N HOSPITAL LUCY - 6 6 [facility] T OFFICE 62875 [facility] OUTPATIEN 6 6 PHYSICIAN RITA T VISIT S GROUP 10 MINUTES HOSPITAL LUCY - 6 6 [facility] OUTPATIEN INC T OFFICE 41061 LUCY EVAN OUTPATIEN 6 6 [facility] VISIT HOSPITAL 10 P MINUTES OFFICE 41469 A Kristy ROY OUTPATIEN 6 6 PILAR PLEITEZ T VISIT PSC 15 MINUTES OFFICE 47758 ELIO POLLOCK OUTPATIEN 6 6 MEDICAL JAM T VISIT SERV 15 FOUNDATIO MINUTES N OFFICE 94053 LUCY EVAN OUTPATIEN 6 6 [facility] 20 HOSPITAL MINUTES P OFFICE 69186 [facility] 6 6 PHYSICIAN RITA T VISIT S GROUP 15 MINUTES HOSPITAL LUCY - 6 6 [facility]PATI[facility] INC T OFFICE 40098 [facility] OUTPATI[facility] 6 6 PHYSICIAN RITA T NEW 45 S GROUP MINUTES HOSPITAL LUCY - 6 6 [facility] OUTPATIEN INC T OFFICE 42442 [place] [facility] OUTPATIEN 6 6 MEDICAL JAM T VISIT SERV 25 FOUNDATIO MINUTES N OFFICE 37783 A Kristy ROY OUTPATIEN 6 6 PILAR PLEITEZ T VISIT PSC 15 MINUTES OFFICE 70478 ELIO POLLOCK OUTPATIEN 6 6 MEDICAL JAM T VISIT SERV 25 FOUNDATIO MINUTES N EMERGENCY 25066 [facility] DEPT 6 6 Y OF MADALYN VISIT [facility] SEVERITY& THREAT RUST LUCY - 6 6 [facility] OUTPATIEN [facility] OFFICE 37805 A Kristy ROY JENNA OUTPATIEN 6 6 PILAR PLEITEZ T VISIT PSC 15 MINUTES OFFICE 85454 A Kristy ROY JENNA OUTPATIEN 6 6 PILAR PLEITEZ T VISIT PSC 15 MINUTES HOSPITAL LUCY - 6 6 [facility] INPATIENT INC OFFICE 74790 [place] [facility] OUTPATIEN 6 6 MEDICAL JAM T VISIT SERV 40 FOUNDATIO MINUTES N OFFICE 64441 [place] [facility] OUTPATIEN 6 6 MEDICAL T VISIT SERV 25 FOUNDATIO MINUTES [facility] LUCY - 6 6 [facility] OUTPATIEN [facility] OFFICE 72336 [place] OUTPATIEN 6 6 MEDICAL JAM T VISIT SERV 15 FOUNDATIO MINUTES [facility] LUCY - 5 5 [facility] OUTPATIEN [facility] LUCY - 5 5 [facility] OUTPATIEN [facility] LUCY - 5 5 [facility]PATIEN [facility] OFFICE 21423 A C FIELD AMB OUTPATIEN 5 5 PILAR PLEITEZ T VISIT PSC 15 MINUTES OFFICE 22316 A C FIELD AMB OUTPATIEN 4 4 PILAR PLEITE[place] T VISIT PSC 15 MINUTES HOSPITAL LUCY - 4 4 [facility] OUTPATIEN [facility] LUCY - 4 4 [facility] OUTPATIEN [facility] LUCY - 4 4 [facility]PATIEN [facility] LUCY - 4 4 [facility]PATI[facility] LUCY - 4 4 [facility]PATI[facility] LUCY - 4 4 [facility] LUCY - 4 4 [facility]PATIEN [facility] OFFICE 17557 FIELD AMB FIELD AMB OUTPATIEN 4 4 T VISIT 15 MINUTES OFFICE 58259 FIELD AMB FIELD AMB OUTPATIEN 3 3 T VISIT 15 MINUTES OFFICE 32974 A C FIELD AMB OUTPATIEN 3 3 PILAR PLEITEZ T NEW 30 PSC MINUTES OFFICE 06452 JAMES JAMES OUTPATIEN 3 3 DON DON T VISIT 15 MINUTES HOSPITAL LUCY - 3 3 [facility] OUTPATIEN [facility] OFFICE 24770 JAMES JAMES OUTPATIEN 3 3 DON DON T VISIT 15 MINUTES HOSPITAL LUCY - 2 2 [facility] OUTPATIEN [facility] OFFICE 66107 JAMES JAMES OUTPATIEN 2 2 DON DON T VISIT 15 MINUTES HOSPITAL LUCY - 2 2 [facility] OUTPATIEN [facility] LUCY - 2 2 [facility] OUTPATIEN [facility] LUCY - 2 2 [facility] LUCY - 2 2 [facility]PATIEN [facility] OFFICE 09995 JAMES JAMES OUTPATIEN 2 2 DON DON T VISIT 15 MINUTES OFFICE 32751 JAMES JAMES OUTPATIEN 1 1 DON DON T VISIT 15 MINUTES OFFICE 32857 [facility]AMES JAMES OUTPATIEN 1 1 DON DON T VISIT 15 MINUTES OFFICE 89523 [facility]AMES JAMES OUTPATIEN 1 1 DON DON T VISIT 15 MINUTES OFFICE 73531 JAMES JAMES OUTPATIEN 1 1 DON DON T VISIT 15 MINUTES [facility] LUC[facility] - 0 0 [facility] LUCY - 0 0 [facility] LUCY - 0 0 [facility]IEN [facility] OFFICE 08969 ERIKA JAMES OUTPATIEN 0 0 DON R DON R T VISIT 15 MINUTES OFFICE 57877 ERIKA JAMES OUTPATIEN 0 0 DON R DON R T VISIT 25 MINUTES OFFICE 03244 ERIKA JAMES OUTPATIEN 0 0 DON R DON R T VISIT 15 MINUTES OFFICE 66268 ERIKA JAMES OUTPATIEN 8 8 DON R DON R T VISIT 15 MINUTES OFFICE 04058 ERIKA JAMES OUTPATIEN 8 8 DON R DON R T VISIT 15 MINUTES OFFICE 01255 ERIKA JAMES OUTPATIEN 8 8 DON R DON R T VISIT 15 MINUTES OFFICE 36707 ERIKA JAMES OUTPATIEN 8 8 DON R DON R T VISIT 15 MINUTES OFFICE 45778 ERIKA JAMES OUTPATIEN 8 8 DON R DON R T VISIT 15 MINUTES
--- OUTSIDE RECORDS SUMMARY | 2017-02-15 19:40 | External Medical Summary Rpt | CCD ---
Author Author , ARNDALL Organization RANDALL Address Unknown Phone [email or web address] Care Team Providers Care Archivist Nonprofit Foundation Name Role Phone A Kristy QUEZADA MD PSC, Darnell Unavailable Unavailable Kristy QUEZADA MD PSC [facility], [facility] Unavailable Unavailable SOL SUN KAYODE, [...] Unavailable ROBBINS JESS, ROBBINS Unavailable Unavailable JESS [facility] Unavailable Unavailable SERVICE, [facility] Unavailable Unavailable SERVICE, [facility] Unavailable Unavailable [...] TAYLOR KEYANA, TAYLOR Unavailable Unavailable KEYANA [facility] Unavailable Unavailable INC, [facility] Unavailable Unavailable HOSPITAL P, [facility] HOSPITAL P RUIZ, DONTE A, Unavailable Unavailable RUIZ, DONTE A [facility], Unavailable Unavailable [facility] ARMENDARIZ JENNA, ARMENDARIZ JENNA Unavailable Unavailable HUI MIKHAIL, HUI MIKHAIL Unavailable Unavailable BECKY MAR, BECKY Unavailable Unavailable MAR [facility] Unavailable Unavailable IMAGING ASS, [facility] [...] DWI [place] Unavailable Unavailable INTERNAL MED, [facility] MED JAMES CON, JAMES CON [...] PHARM #[id number] [facility] Unavailable Unavailable [id number] # [id number], [facility] [id number] # [id number] TANIYA ABIMAEL, TANIYA ABIMAEL Unavailable [...] Unavailable Unavailable OTTO BOOTH Unavailable Unavailable [facility], Unavailable Unavailable 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 Z950 PRESENCE OF 11-26-2016 [facility] CARDIAC PHYSICIANS PACEMAKER GROUP E785 HYPERLIPIDE 11-15-2016 [facility] WILMAR PHYSICIANS UNSPECIFIED GROUP I10 ESSENTIAL 11-15-2016 [facility] HYPERTENSIO [facility] P N I119 HYPERTENSIV 11-15-2016 [facility] E HEART PHYSICIANS DISEASE GROUP WITHOUT HEART FAILURE I2510 [place] 11-15-2016 [facility] 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 R110 NAUSEA 11-15-2016 [facility] R55 SYNCOPE AND 11-15-2016 [facility] COLLAPSE PHYSICIANS GROUP R0602 SHORTNESS 11-02-2016 [facility] R079 CHEST PAIN 11-02-2016 [facility] UNSPECIFIED [facility]ICAL IMAGING ASS I4519 OTHER RIGHT 10-31-2016 [facility] ROBLES, BUNDLE-BRAN PLLC CH BLOCK J189 PNEUMONIA 10-31-2016 [facility] UNSPECIFIED PHYSICIANS, ORGANISM PLLC [id number] PERSONAL 10-31-2016 [facility] HISTORY OF PHYSICIANS, NICOTINE PLLC DEPENDENCE 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 10-24-2016 [facility] P I509 HEART 10-24-2016 [facility] P J441 CHRONIC 10-24-2016 [facility] P DZ W/EXACERBAT ION Z4509 ENCOUNTER 10-24-2016 [facility] OT CARDIAC DEVICE R918 OTHER 09-14-2016 [facility] NONSPECIFIC MEDICAL ABNORMAL IMAGING ASS FINDING OF LUNG FIELD J410 SIMPLE 09-04-2016 A Kristy QUEZADA CHRONIC PSC BRONCHITIS R938 ABNORMAL 09-04-2016 [facility] FIND ON DX PHYSICIANS IMAGING OT GROUP SPEC BODY STRCT I200 UNSTABLE 08-27-2016 [facility] ANGINA PHYSICIANS GROUP [id number] [place]D [place] 08-25-2016 [facility] P ANGINA PECTORIS I272 OTHER 08-25-2016 [facility] P HYPERTENSIO N I480 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 [facility] FIBRILLATIO INC N Z7901 DETENTION 08-25-2016 [facility] CURRENT USE [facility] OF [...] PSC CONGESTIVE HEART FAILURE C9110 CHRONIC 01-11-2016 [facility] 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 R634 ABNORMAL 01-11-2016 [facility] WEIGHT LOSS [facility] INC R1110 VOMITING 01-09-2016 [facility] UNSPECIFIED PHYSICIANS GROUP K828 OTHER 01-02-2016 [facility] SPECIFIED MEDICAL DISEASES OF IMAGING ASS GALLBLADDER R630 ANOREXIA 01-02-2016 [facility] K921 MELENA 11-07-2015 [facility] PHYSICIANS GROUP K5710 DIVERTICULO 11-03-2015 [facility] SIS SM MEDICAL INTEST W/O IMAGING ASS PERF/ABSC W/O BLEED R195 OTHER FECAL 11-03-2015 [facility] MED[facility] ABNORMALITI IMAGING ASS ES H01120 LYMPHOCYTOS 10-26-2015 [facility] IS PATHOLOGY SYMPTOMATIC LAB NETW J690 PNEUMONITIS 10-26-2015 MD MEDICAL DUE TO SERV INHALATION FOUNDATION OF FOOD AND VOMIT Z09 ENC F/U 10-20-2015 A C QUEZADA EXAM AFTR PSC CMPL TX OTH THAN MALIG NEOPLSM B370 CANDIDAL 10-19-2015 [facility] MEDICAL STOMATITIS SERV FOUNDATION R112 NAUSEA WITH 10-19-2015 MD MEDICAL VOMITING SERV UNSPECIFIED FOUNDATION R9431 ABNORMAL 09-18-2015 MD MEDICAL ELECTROCARD SERV IOGRAM FOUNDATION I4510 UNSPECIFIED 09-15-2015 MD MEDICAL RIGHT SERV BUNDLE-BRAN FOUNDATION CH BLOCK R001 BRADYCARDIA 09-15-2015 MD MEDICAL SERV UNSPECIFIED FOUNDATION B965 PSEUDOMONAS 09-14-2015 MD MEDICAL CAUSE OF SERV DZ FOUNDATION CLASSIFIED ELSEWHERE J9600 ACUTE 09-14-2015 MD MEDICAL RESPIRATORY SERV FAIL UNS FOUNDATION HYPOXIA/HYP ERCAPNIA J9811 ATELECTASIS 09-14-2015 [facility] SERV FOUNDATION C16655 ENCOUNTER 09-14-2015 MD MEDICAL SURG SERV AFTERCARE FOUNDATION FLW SURG DIGESTIVE SYS Z049 ENCOUNTER 09-13-2015 MD MEDICAL EXAMINATION SERV &OBSERVATIO FOUNDATION N FOR UNS REASON K5900 CONSTIPATIO 09-12-2015 MD MEDICAL N SERV UNSPECIFIED FOUNDATION R140 ABDOMINAL 09-10-2015 MD MEDICAL DISTENSION SERV GASEOUS FOUNDATION R0989 OTH SPEC SX 09-09-2015 MD MEDICAL & SIGNS SERV INVLV THE FOUNDATION CIRC & RESP SYS A419 SEPSIS 09-08-2015 MD MEDICAL UNSPECIFIED SERV ORGANISM FOUNDATION E873 ALKALOSIS 09-08-2015 [facility] SERV FOUNDATION E876 HYPOKALEMIA 09-08-2015 [facility] SERV FOUNDATION J90 PLEURAL 09-08-2015 MD MEDICAL EFFUSION SERV NOT FOUNDATION ELSEWHERE CLASSIFIED J9620 ACUTE 09-08-2015 MD MEDICAL CHRONIC SERV RESP FAIL FOUNDATION UNS HYPOXIA/HYP ERCAPNIA J984 OTHER 09-08-2015 MD MEDICAL DISORDERS SERV OF LUNG FOUNDATION R109 UNSPECIFIED 09-08-2015 MD MEDICAL ABDOMINAL SERV PAIN FOUNDATION Z4682 ENCOUNTER 09-08-2015 [facility] ADJUST HOSPI NON-VASCULA R CATHETER 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-07-2015 [facility] MEDICAL DISORDER SERV UNSPECIFIED FOUNDATION I517 CARDIOMEGAL 09-07-2015 [place] [facility] Y SERV [facility] I5189 OTHER 09-07-2015 [place] [facility] ILL-DEFINED SERV HEART FOUNDATION DISEASES R0902 HYPOXEMIA 09-06-2015 [place] [facility] SERV [facility] R0689 OTHER 09-02-2015 [facility] MEDICAL ABNORMALITI SERV ES OF FOUNDATION BREATHING J942 HEMOTHORAX 08-30-2015 [place] [facility] J948 OTHER 08-30-2015 [place] [facility] SPECIFIED SERV PLEURAL FOUNDATION CONDITIONS L538 OTHER 08-30-2015 [place] [facility] SPECIFIED SERV ERYTHEMATOU FOUNDATION S CONDITIONS Z9889 OTHER 08-30-2015 [facility] MEDICAL SPECIFIED SERV POSTPROCEDU FOUNDATION RAL STATES 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 K4030 UNILAT 08-25-2015 [facility] INGUINAL [facility] NGUYEN W/OBST HOSPI W/O GANGRN NOT RECUR K4040 UNILAT 08-25-2015 [facility] MEDICAL INGUINAL SERV NGUYEN FOUNDATION W/GANGREN NOT SPEC RECUR M99217 ELEVATED 08-24-2015 [facility] BLOOD [facility] P UNSPECIFIED K4090 UNILAT 08-24-2015 [facility] MEDICAL INGUINAL SERV NGUYEN W/O FOUNDATION OBST/GANGRE N NOT RECUR K5660 UNSPECIFIED 08-24-2015 [facility] AMBULANCE SERVICE OBSTRUCTION R1031 RIGHT LOWER 08-24-2015 [facility] J439 EMPHYSEMA 08-03-2015 [place] UNSPECIFIED [place] INTERNAL MED J929 PLEURAL 08-03-2015 [facility] [facility] [facility] WITHOUT IMAGING ASS ASBESTOS R002 PALPITATION 08-03-2015 [facility] MEDICAL S SERV FOUNDATION R031 NONSPECIFIC 08-03-2015 [facility] MEDICAL LOW SERV BLOOD-PRESS FOUNDATION URE READING R42 DIZZINESS 08-03-2015 [facility]ICAL AND SERV GIDDINESS FOUNDATION Z7722 CONTACT W/ 07-13-2015 [facility] MEDICAL & SUSPECTED SERV EXPOS FOUNDATION ENVIR TOBACCO SMOKE J40 BRONCHITIS 03-25-2015 [facility] NOT MEDICAL SPECIFIED IMAGING ASS ACUTE OR CHRONIC R091 PLEURISY 01-21-2015 [facility] 4280 CONGESTIVE 01-14-2015 [facility] HEART HOME FAILURE MEDICAL UNSPECIFIED EQUIPME 62047 OBSTRUCTIVE 01-14-2015 [facility] WITHOUT EXACERBAT 496 CHRONIC 01-14-[address] [facility] [address] [facility] OBSTRUCTION MEDICAL NEC EQUIPME 74021 NUCLEAR 12-28-2014 [facility] SCLEROSIS JAMILAH 79087 OBST 09-06-2014 A Kristy QUEZADA CHRONIC PSC BRONCHITIS W/ACUTE BRONCHITIS 66131 LOSS OF 09-06-2014 A Kristy QUEZADA WEIGHT PSC 44898 OTHER CHEST 09-06-2014 A Kristy QUEZADA PAIN PSC 79664 OBSTRUCTIVE 09-05-2014 [facility] SLEEP HOME APNEA MEDICAL EQUIPME 7242 LUMBAGO 04-01-2014 A Kristy QUEZADA MD PSC V0382 NEED PROPH 04-01-2014 A Kristy QUEZADA VACCINATION PSC AGAINST STREP PNEUMONE 56578 ATRIAL 01-13-2014 [facility] FIBRILLATIO [facility] N INC 82188 REFLUX 01-13-2014 [facility] ESOPHAGITIS [facility] INC 80216 UNS 01-13-2014 [facility] GASTRITIS&G [facility] ASTRODUODIT INC IS W/O MENTION HEMORR 26315 ABDOMINAL 01-13-2014 [facility] PAIN, [facility] GENERALIZED INC V5869 LONG-TERM 01-13-2014 [facility] (CURRENT) [facility] USE OF INC OTHER MEDICATIONS 34073 CHEST PAIN 11-24-2013 [facility] UNSPECIFIED [facility] INC 5110 PLEURISY 10-29-2013 [facility] WITHOUT MEDICAL MENTION IMAGING ASS EFFUS/CURRE NT TB 7862 COUGH 10-29-2013 [facility] 03707 INSOMNIA 12-16-2012 A Kristy BANSAL MD PSC 70793 OTHER 12-16-2012 A Kristy QUEZADA MALAISE AND PSC FATIGUE 52109 FEVER 05-23-2012 J[facility] UNSPECIFIED DON 19537 WHEEZING 05-23-2012 JAMES DON 1120 CANDIDIASIS 05-21-2012 J[facility] OF MOUTH DON 23011 OTHER 05-21-2012 FRANCESCA DISEASES OF EMY LUNG NOT ELSEWHERE CLASSIFIED 4940 BRONCHIECTA 01-28-2012 [place] SIS WITHOUT MEDICAL ACUTE IMAGING ASS EXACERBATIO N 5119 UNSPECIFIED 01-28-2012 [place] PLEURAL MEDICAL EFFUSION IMAGING ASS 86409 OTHER 01-28-2012 [facility] NONSPECIFIC [facility] ABNORMAL INC FINDING OF LUNG FIELD 42991 OSTEOARTHRO 01-02-2012 JAMES S INVLV MX DON SITES BUT [place] SPEC GEN 97122 OBSTRUCTIVE 11-12-2011 [facility] CHRONIC [facility] BRONCHITIS INC WITH EXACERBATIO N 58505 ESOPHAGEAL 11-12-2011 [facility] REFLUX [facility] INC 2859 UNSPECIFIED 10-05-2011 [facility] ANEMIA [facility] INC 5180 PULMONARY 10-05-2011 [facility] COLLAPSE [facility] 486 PNEUMONIA, 09-28-2011 [place] ORGANISM MEDICAL UNSPECIFIED IMAGING ASS 5070 PNEUMONITIS 09-28-2011 [place] DUE TO JAM INHALATION OF FOOD OR VOMITUS 02144 SHORTNESS 09-28-2011 [facility] OF BREATH [facility] INC 07186 ABDOMINAL 09-28-2011 [facility] PAIN, MEM [facility] EPIGASTRIC INC V1261 PERSONAL 09-28-2011 [place] HISTORY JAM PNEUMONIA RECURRENT 29393 PNEUMONIA 06-08-2011 J[facility] DUE TO DON OTHER SPECIFIED BACTERIA 2724 OTHER AND 05-11-2011 COMBINED UNSPECIFIED PHYSICIANS LA HYPERLIPIDE [place] 2768 HYPOPOTASSE 05-11-2011 COMBINED [place] PHYSICIANS LA 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 6019 UNSPECIFIED 05-11-2011 [place] [address] PAIN IN 05-11-2011 COMBINED JOINT, PHYSICIANS MULTIPLE LA SITES 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 5183 PULMONARY 11-28-2009 [facility] A 46569 ACUTE 11-28-2009 MD MEDICAL RESPIRATORY SERV FAILURE FOUNDATIO 7856 ENLARGEMENT 11-28-2009 [facility] NODES 7931 NONSPEC 11-28-2009 MD MEDICAL FIND RAD SERV OTH EXAM FOUNDATIO BODY STRUCT LUNG FIELD V1582 PERS HX 11-28-2009 [facility] TOBACCO USE [facility] PRESENTING HAZARDS HE[facility] V7282 PRE-OPERATI 11-28-2009 MD MEDICAL VE SERV RESPIRATORY FOUNDATIO EXAMINATION 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 80015 DYSPHAGIA 11-18-2009 [place] UNSPECIFIED [facility]ICAL IMAGING ASS 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, 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 47497 OSTEOARTHRO 08-23-2009 ERIKA SIS UNSPEC DON R WHETHER GEN/LOC LOWER LEG 07407 OSTEOARTHRO 08-23-2009 ERIKA S UNSPEC DON R GEN/LOC OTH SPEC SITES 37598 MACULAR 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 RUIZ N OF RETINA UNSPECIFIED 67606 NONEXUDATIV 07-20-2008 RETINA & 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 83705 EXUDATIVE 07-20-2008 RET[facility] & SENILE VITREOUS MACULAR ASSOCIATES DEGENERATIO O N OF RETINA 24063 CRYSTALLINE 07-20-2008 RETINA & DEPOSITS VITREOUS IN VITREOUS ASSOCIATES O 4610 ACUTE 02-27-2008 JAMES, MAXILLARY DON R SINUSITIS 4659 ACUTE URIS 02-27-2008 JAMES, OF DON R UNSPECIFIED SITE 8472 LUMBAR 11-14-2007 JAMES, SPRAIN AND DON R STRAIN 4660 ACUTE 08-02-2007 JAMES, BRONCHITIS DON R 4871 INFLUENZA 07-04-2007 JAMES, WITH OTHER DON R RESPIRATORY MANIFESTATI ONS 15310 PAIN IN 04-25-2007 JAMES, JOINT, DON R SHOULDER REGION 72135 UNSPECIFIED 04-25-2007 JAMES, SYNOVITIS DON R AND [...] CY 03 93 8 # 03 93 SD [...] YOUR SM VOL 7 PHARMACY PHARMACY NONFILTR [employer] PNEUMAT NEBULIZR DISPBL ALBUTEROL J7620 YOUR YOUR TO 2.5 7 PHARMACY PHARMACY [employer] [facility] [place]ATROP[place] [address] [place] [address] [facility]BRAI 7 MEDICAL N W/O & IMAGING W/CONTRAS ASS T MATERIAL ECG 32971 [facility] BEVERLY ROUTINE 7 [facility] W/LEAST P 12 LDS I&R ONLY RADIOLOGI 85108 TEX FONTANEZ C 7 MEDICAL EXAMINATI IMAGING ON CHEST ASS SINGLE VIEW FRONTAL O2 CONC 1 E1390 [facility] LUIS PORT 7 HOME HOME 85%/>02 MEDICAL MEDICAL CONC AT EQUIPME EQUIPME PRSC FLW RATE INTERROGA 82550 [facility] RHIANNON TION EVAL 7 PHYSICIAN REMOTE S GROUP </90 D 1/2/AUXILIARY OPERATOR LEAD PM RADIOLOGI 71633 [facility] EXAM 7 MEDICAL CHEST 2 IMAGING VIEWS ASS FRONTAL&L ATERAL ECG 97112 [facility] BEVERLY ROUTINE 7 [facility] W/LEAST P 12 LDS I&R ONLY ECG 34076 [facility] ELIZABETH ROUTINE 7 [facility] W/LEAST P 12 LDS I&R ONLY RADIOLOGI 11640 [place] FRANCESCA C EXAM 7 MEDICAL CHEST 2 IMAGING VIEWS ASS FRONTAL&L ATERAL ECG 84262 L[facility] LAMIN ROUTINE 7 PHYSICIAN PHYSICIAN ECG S, PLLC S, PLLC W/LEAST 12 LDS I&R ONLY RADIOLOGI 68517 [facility] 7 MEDICAL EXAMINATI IMAGING ON CHEST ASS SINGLE VIEW FRONTAL RADIOLOGI 61176 [facility] 7 MEDICAL EXAMINATI IMAGING ON CHEST ASS SINGLE VIEW FRONTAL INS 34649 [facility] NEW/RPLCM 7 PHYSICIAN T PRM PM S GROUP W/TRANSV ELTRD ATRIAL&VE NT ECG 01574 [facility] BEVERLY ROUTINE 7 [facility] W/LEAST P 12 LDS I&R ONLY ECG 91131 [facility] ROUTINE 7 [facility] W/LEAST P 12 LDS I&R ONLY RADIOLOGI 92662 [facility] 7 MEDICAL EXAMINATI IMAGING ON CHEST ASS SINGLE VIEW FRONTAL ALBUTEROL J7620 YOUR YOUR TO 2.5 7 PHARMACY PHARMACY [employer] IPRATROPI UM BROM TO 0.5 MG ADMN SET A7003 YOUR YOUR SM VOL 7 PHARMACY PHARMACY NONFILTR LLC LLC PNEUMAT NEBULIZR DISPBL ECG 57511 [facility] ROUTINE 7 PHYSICIAN ECG S GROUP W/LEAST 12 LDS I&R ONLY O2 CONC 1 E1390 [facility] VARMA 7 HOME HOME 85%/>02 MEDICAL MEDICAL CONC AT EQUIPME EQUIPME PRSC FLW RATE CT THORAX 98600 [facility] 7 MEDICAL W/CONTRAS IMAGING T [...] IPRATROPI UM BROM TO 0.5 MG ECG 91943 [facility] ROUTINE 7 PHYSICIAN ECG S GROUP W/LEAST 12 LDS I&R ONLY O2 CONC 1 E1390 [facility] [place] PORT 7 HOME HOME 85%/>02 MEDICAL MEDICAL CONC AT EQUIPME EQUIPME PRSC FLW RATE NONINVASI 60487 [facility] AYALA VE 7 [facility] EAR/PULSE INC INC OXIMETRY SINGLE DETER R & L HRT 72386 [facility] CATH 7 PHYSICIAN WINJX HRT S GROUP ART& L VENTR [facility] G0378 LUCY AYALA OBSERVATI 7 [facility] ON INC INC SERVICE [facility] G0378 LUCY AYALA OBSERVATI 7 [facility]OS[facility] ON INC INC SERVICE PER HOUR NONINVASI 33962 [facility] AYALA VE 7 [facility] EAR/PULSE INC INC OXIMETRY SINGLE DETER ECG 73139 [facility] AYALA ROUTINE 7 [facility] ECG INC INC W/LEAST 12 LDS TRCG ONLY W/O I&[place] [address] LUC[facility] AYALA INFUSION 7 [facility] THERAPY/P INC INC ROPHYLAXI S /DX 1ST TO 1 HR ECG 56465 L[facility] ELIZABETH JR ROUTINE 7 [facility] W/LEAST P 12 LDS I&[place] [address] LUC[facility] AYALA INFUSION 7 [facility] THER INC INC PROPH ADDL SEQUENTIA L TO 1 HR HOSPITAL G0378 [facility] AYALA OBSERVATI 7 [facility] ON INC INC SERVICE PER HOUR RADIOLOGI 27751 [facility] AYALA C 7 [facility] H[facility]OS[facility] EXAMINATI INC INC ON CHEST SINGLE VIEW FRONTAL ADMN SET A7003 YOUR YOUR SM VOL 7 PHARMACY PHARMACY [employer] PNEUMAT NEBULIZR DISPBL ALBUTEROL J7620 YOUR YOUR TO 2.5 7 PHARMACY PHARMACY [employer] IPRATROPI UM BROM TO 0.5 MG O2 CONC 1 E1390 [facility] LEVY DEL PORT 7 HOME HOME 85%/>02 MEDICAL MEDICAL CONC AT EQUIPME EQUIPME PRSC FLW RATE O2 CONC 1 E1390 [facility] LEVY [place] PORT 7 HOME HOME 85%/>02 MEDICAL MEDICAL CONC AT EQUIPME EQUIPME PRSC FLW RATE SBSQ 99444 [facility] 7 MEDICAL CARE/DAY SERV 25 FOUNDATIO MINUTES N RADIOLOGI 39442 [facility] EXAM 7 MEDICAL MEDICAL CHEST 2 IMAGING [...] YOUR YOUR SM VOL 6 PHARMACY PHARMACY [employer] PNEUMAT NEBULIZR DISPBL PHRM Q0513 YOUR YOUR DISPENSIN 6 PHARMACY PHARMACY G FEE [employer] INHALATIO N RX; PER 30 DAYS ALBUTEROL J7620 YOUR YOUR TO 2.5 6 PHARMACY PHARMACY [employer] IPRATROPI UM BROM TO 0.5 MG O2 [...] AT EQUIPME EQUIPME PRSC FLW RATE BLOOD 76784 [facility] AYALA COUNT 6 [facility] COMPLETE INC INC AUTO&AUTO DIFRNTL WBC LOCM Q9967 [facility] AYALA [phone] 6 [facility] MG/ML INC INC IODINE CONCENTRA TION PER ML COLLECTIO 15404 LUCY AYALA N VENOUS 6 [facility] BLOOD INC INC VENIPUNCT URE COMPREHEN 37789 [facility] AYALA SIVE 6 [facility] [address] LUCY AYALA ABDOMEN 6 [facility] W/CONTRAS INC INC T MATERIAL ANES 69119 [facility] UPPER GI 6 ANESTH PALMA ENDOSCOPY OF THE PROXIMAL BLUE TO DUODENUM O2 CONC 1 E1390 [facility] BARBERRELL DEL PORT 6 HOME HOME 85%/>02 MEDICAL MEDICAL CONC AT EQUIPME EQUIPVIBRA LONG TERM ACUTE CARE HOSPITAL FLW RATE O2 CONC 1 E1390 MIL[facility]EDTEJINDER PENA DEL PORT 6 HOME MAR 85%/>02 MEDICAL CONC AT EQUIPVIBRA LONG TERM ACUTE CARE HOSPITAL FLW RATE RADEX 49683 [facility] AYALA UPPER GI 6 [facility] W/WO INC INC GLUCAGON/ DELAY IMAGES W/KUB RADEX 27538 [place] FONTANEZ ALL UPPER GI 6 MEDICAL W/WO IMAGING GLUCAGON/ ASS DELAY IMGES W/O KUB FLOW 97748 MOLECULAR MOLECULAR CYTOMETRY 6 [facility] PATHOLOGY PATHOLOGY 2-8 LAB NETW LAB NETW MARKERS COLLECTIO 36228 [facility] AYALA N VENOUS 6 [facility] BLOOD INC INC VENIPUNCT URE FLOW 28452 L[facility] AYALA CYTOMETRY 6 [facility] CELL INC INC SURF MARKER TECHL ONLY EA FLOW 31239 LUC[facility] AYALA CYTOMETRY 6 [facility] CELL INC INC SURF MARKER TECHL ONLY 1ST NEBULIZER E0570 [facility] LEVY WITH 6 HOME HOME COMPRESSO MEDICAL MEDICAL R EQUIPME EQUIPME O2 CONC 1 E1390 [facility] DILLON DEL PORT 6 HOME KEY 85%/>02 MEDICAL CONC AT EQUIPVIBRA LONG TERM ACUTE CARE [facility]OSPITAL FLW RATE WALKER E0143 [facility] F[facility]ING 6 WHEELED ADJUSTABL E/FIXED HEIGHT SEAT E0156 [facility] ATTACHMEN 6 T WALKER ECG 42817 [place] TANIYA ABIMAEL ROUTINE 6 MEDICAL ECG SERV W/LEAST FOUNDATIO 12 LDS N I&R ONLY ECG 01187 [place] PELAEZ ROUTINE 6 MEDICAL NAN ECG SERV W/LEAST FOUNDATIO 12 LDS N I&R ONLY RADIOLOGI 58852 [place] JAMES CON C 6 MEDICAL EXAMINATI SERV ON CHEST FOUNDATIO SINGLE N VIEW FRONTAL SBSQ 86502 [facility] 6 MEDICAL KEYANA CARE/DAY SERV 25 FOUNDATIO MINUTES N RADIOLOGI 95785 [place] ZAGUROVSK C 6 MEDICAL AYA MAR EXAMINATI SERV ON CHEST FOUNDATIO SINGLE N VIEW FRONTAL SBSQ 70490 [facility] 6 MEDICAL KEYANA CARE/DAY SERV 15 FOUNDATIO MINUTES N SBSQ 14957 [facility] 6 MEDICAL KEYANA CARE/DAY SERV 15 FOUNDATIO MINUTES N RADIOLOGI 96426 [place] ARMENDARIZ JENNA C 6 MEDICAL EXAMINATI SERV ON CHEST FOUNDATIO SINGLE N VIEW FRONTAL RADIOLOGI 93518 [place] MAHMOOD LEATHA C 6 MEDICAL EXAMINATI SERV ON CHEST FOUNDATIO SINGLE N VIEW FRONTAL SBSQ 25991 [facility] 6 MEDICAL CARE/DAY SERV 25 FOUNDATIO MINUTES N SBSQ 74933 [facility] 6 MEDICAL CARE/DAY SERV 25 FOUNDATIO MINUTES N RADIOLOGI 26454 [place] MAHMOOD LEATHA C 6 MEDICAL EXAMINATI SERV ON CHEST FOUNDATIO SINGLE N VIEW FRONTAL ECG 45550 [facility] ROUTINE 6 MEDICAL ECG SERV W/LEAST FOUNDATIO 12 LDS N I&R ONLY RADEX 77888 [place] OTTO ABDOMEN 1 6 MEDICAL SUSAN SERV ANTEROPOS FOUNDATIO TERIOR N VIEW RADEX 12093 [facility] ABDOMEN 1 6 Y OF CAR [place] [facility] TER[facility] VIEW ECG 83886 [place] [facility] MEDICAL ECG SERV W/LEAST FOUNDATIO 12 LDS N I&R ONLY RADIOLOGI 75752 [place] JAMES CON C 6 MEDICAL EXAMINATI SERV ON CHEST FOUNDATIO SINGLE N VIEW FRONTAL CRITICAL 03468 [place] [facility] CARE 6 MEDICAL ILL/INJUR SERV ED FOUNDATIO PATIENT N INIT 30-74 MIN SBSQ 93024 [place] [facility] 6 MEDICAL CARE/DAY SERV 25 FOUNDATIO MINUTES N RADIOLOGI 84513 [place] JONAHGUROVSK C 6 MEDICAL AYA MAR EXAMINATI SERV ON CHEST FOUNDATIO SINGLE N VIEW FRONTAL CT THORAX 08039 [place] CON 6 MEDICAL W/[place] [address] [place] RE[facility] CLEO ABDOMEN & 6 MEDICAL PELVIS SERV W/CONTRAS FOUNDATIO T N MATERIAL RADEX 16041 [facility] 1 6 [facility] [place] [facility] TERIOR VIEW ECG 75641 [place] [facility] ROUTINE 6 MEDICAL ECG SERV W/LEAST FOUNDATIO 12 LDS N I&R ONLY ECHO 31375 [facility] R-T 6 MEDICAL ERIKA 2D SERV W/WOM-MOD FOUNDATIO E COMPL N SPEC&COLR D RADEX ABD 37240 [place] PAULA COMPL 6 MEDICAL JURGEN AQT ABD SERV ANNEL W/S/E/D FOUNDATIO VIEWS 1 N VIEW CH RADIOLOGI 99789 [place] J[facility] CON C 6 MEDICAL EXAMINATI SERV ON CHEST FOUNDATIO SINGLE N VIEW FRONTAL SBSQ 49663 [facility] 6 MEDICAL AND CARE/DAY SERV 25 FOUNDATIO MINUTES N INITIAL 99839 [facility] 6 MEDICAL SUN KAYODE CARE/DAY SERV 30 FOUNDATIO MINUTES N SBSQ 71206 [facility] 6 MEDICAL AND CARE/DAY SERV 25 FOUNDATIO MINUTES N RADIOLOGI 56488 [place] [facility] CON C 6 MEDICAL EXAMINATI SERV ON CHEST FOUNDATIO SINGLE N VIEW FRONTAL RADIOLOGI 59504 [place] [facility] CON C 6 MEDICAL EXAMINATI SERV ON CHEST FOUNDATIO SINGLE N VIEW FRONTAL ECG 27700 [place] [facility] ROUTINE 6 MEDICAL ECG SERV W/LEAST FOUNDATIO 12 LDS N I&R ONLY RADIOLOGI 41715 [place] ZAGUROVSK C 6 MEDICAL AYA MAR EXAMINATI SERV ON CHEST FOUNDATIO SINGLE N VIEW FRONTAL RADEX 87435 [facility] ABDOMEN 1 6 Y OF [place] [facility] TERIOR VIEW RADEX [address] [place] ZAGUROVSK ABDOMEN 1 6 MEDICAL AYA MAR SERV ANTEROPOS FOUNDATIO TERIOR N VIEW RADIOLOGI 19591 [place] ROBBINS C 6 MEDICAL JESS EXAMINATI SERV ON CHEST FOUNDATIO SINGLE N VIEW FRONTAL RADIOLOGI 94106 [place] ZAGUROVSK C 6 MEDICAL AYA MAR EXAMINATI SERV ON CHEST FOUNDATIO SINGLE N VIEW FRONTAL CT THORAX 10026 [place] ARMENDARIZ JENNA 6 MEDICAL W/[place] [address] [place] AYOOB AND ABDOMEN & 6 MEDICAL PELVIS SERV W/CONTRAS FOUNDATIO T N MATERIAL RADEX 73161 [facility] SHANELL ABDOMEN 1 6 [place] [facility] TERIOR VIEW RADEX 28612 [facility] ABDOMEN 1 6 [place] [facility] TERIOR VIEW SBSQ 67187 [facility] 6 MEDICAL AND CARE/DAY SERV 25 FOUNDATIO MINUTES N SBSQ 12357 [facility] 6 MEDICAL AND CARE/DAY SERV 25 FOUNDATIO MINUTES N RADIOLOGI 69577 [place] DELL CAR C 6 MEDICAL EXAMINATI SERV ON CHEST FOUNDATIO SINGLE N VIEW FRONTAL RADIOLOGI 60995 [place] JAMES CON C 6 MEDICAL EXAMINATI SERV ON CHEST FOUNDATIO SINGLE N VIEW FRONTAL ECG 66177 [place] PELAEZ ROUTINE 6 MEDICAL NAN ECG SERV W/LEAST FOUNDATIO 12 LDS N I&R ONLY ECG 00702 [place] HUI MIKHAIL ROUTINE 6 MEDICAL ECG SERV W/LEAST FOUNDATIO 12 LDS N I&R ONLY SBSQ 87470 [facility] 6 MEDICAL RONNY CARE/DAY SERV 25 FOUNDATIO MINUTES N ARTL 10681 [facility] C[facility] 6 Y OF Y OF [facility] [place] L[place] [address] ELIO HIEU SURG 6 MEDICAL FRANCO PATHOLOGY SERV FOUNDATIO GROSS&JESS N ROSCOPIC EXAM LEVEL III 09726 ELIO HIEU SURG 6 MEDICAL FRANCO PATHOLOGY SERV FOUNDATIO GROSS&JESS N ROSCOPIC EXAM RPR 1ST 60678 ELIO RAYMOND INGUN 6 MEDICAL RONNY HRNA AGE SERV 5 YRS/> FOUNDATIO INCARCERA N KISHOR ANESTHESI 92728 [facility] BET A HERNIA 6 Y OF REPAIR [place] [facility] ABDOMEN NOS INJECTION J2405 LUCY AYALA 6 [facility] ONDANSETR INC INC ON HCL [place] 1 [place] [address] LUCY AYALA AMYLASE 6 [facility] INC INC CREATINE 00555 LUCY AYALA KINASE MB 6 [facility] FRACTION INC INC ONLY COMPREHEN 86399 LUCY AYALA SIVE 6 [facility] METABOLIC INC INC PANEL INITIAL 14461 [facility] 6 MEDICAL CHR CARE/DAY SERV 50 FOUNDATIO MINUTES N GROUND A0425 [facility] MILEAGE 6 AMBULANCE AMBULANCE PER SERVICE SERVICE STATUTE MILE AMBULANCE A0429 [facility] SERVICE 6 AMBULANCE AMBULANCE BLS SERVICE SERVICE EMERGENCY TRANSPORT RADIOLOGI 49742 [place] FONTANE[place] ALL C 6 MEDICAL EXAMINATI IMAGING ON CHEST ASS SINGLE VIEW FRONTAL THER 77035 LUCY AYALA PROPH/DX 6 [facility] NJX EA INC INC SEQL IV PUSH SBST/DRUG FAC INJ J2543 LUCY AYALA PIPERACIL 6 [facility] YONATHAN INC INC SOD/TAZOB ACTAM SOD 1 G/0.125 G BLOOD 17084 LUCY AYALA COUNT 6 [facility] COMPLETE INC INC AUTO&AUTO DIFRNTL WBC ECG 37395 LUCY BEVERLY ROUTINE 6 [facility] W/LEAST P 12 LDS I&[place] [address] LUCY AYALA TROPONIN 6 [facility] [place] [address] [place] FONT[place] ALL ABDOMEN & 6 MEDICAL PELVIS IMAGING W/O ASS CONTRAST MATERIAL ECG 99127 LUCY AYALA ROUTINE 6 [facility] ECG INC INC W/LEAST 12 LDS TRCG ONLY W/[place] [address] LUCY AYALA INFUSION 6 [facility] THERAPY/P INC INC ROPHYLAXI S /DX 1ST TO 1 HR CREATINE 09228 LUCY AYALA KINASE 6 [facility] [place] [address] LUCY AYALA LIPASE 6 [facility] INC INC BLOOD 79548 Darnell ROY JENNA COUNT 6 PILAR PLEITEZ COMPLETE PSC AUTO&AUTO DIFRNTL WBC COLLECTIO 70950 Darnell WEST N VENOUS 6 PILAR PLEITEZ BLOOD PSC VENIPUNCT URE NEBULIZER E0570 MILDRED LEVY WITH 6 HOME HOME COMPRESSO MEDICAL MEDICAL R EQUIPME EQUIPME ECG 87959 LUCY BEVERLY ROUTINE 6 [facility] W/LEAST P 12 LDS I&R ONLY INITIAL [address]/DAY INTERNAL 70 MED MINUTES RADIOLOGI 55331 [place] FRANCESCA 6 MEDICAL EXAMINATI IMAGING ON CHEST ASS SINGLE VIEW FRONTAL NEBULIZER E0570 MILDRED LEVY WITH 6 HOME HOME COMPRESSO MEDICAL MEDICAL R EQUIPME EQUIPME ALBUTEROL J7620 YOUR YOUR TO 2.5 6 PHARMACY PHARMACY [employer] IPRATROPI UM BROM TO 0.5 MG RADIOLOGI 30480 [place] FONTANEZ C 6 MEDICAL EXAMINATI IMAGING ON CHEST ASS SINGLE VIEW FRONTAL ADMN SET A7003 YOUR YOUR SM VOL 6 PHARMACY PHARMACY [employer] LLC PNEUMAT NEBULIZR DISPBL BLOOD 73149 LUCY AYALA COUNT 6 [facility] COMPLETE INC INC AUTO&AUTO DIFRNTL WBC COLLECTIO 63071 LUCY AYALA N VENOUS 6 [facility] BLOOD INC INC VENIPUNCT URE COMPREHEN 08085 LUCY AYALA SIVE 6 [facility] METABOLIC INC INC PANEL RADIOLOGI 36812 LUCY AYALA C EXAM 6 [facility] CHEST 2 INC INC VIEWS FRONTAL&L ATERAL PHRM Q0513 YOUR YOUR DISPENSIN 6 PHARMACY PHARMACY [employer] INHALATIO N RX; PER 30 DAYS NEBULIZER E0570 MILDRED LEVY WITH 6 HOME HOME COMPRESSO MEDICAL MEDICAL R EQUIPME EQUIPME NEBULIZER E0570 MILDRED LEVY WITH 6 HOME HOME COMPRESSO MEDICAL MEDICAL R EQUIPME EQUIPME ALBUTEROL J7620 YOUR YOUR TO 2.5 5 PHARMACY PHARMACY [employer] IPRATROPI UM BROM TO 0.5 MG PHRM Q0513 YOUR YOUR DISPENSIN 5 PHARMACY PHARMACY [employer] INHALATIO N RX; PER 30 DAYS RADIOLOGI 50914 [place] ESTEE ELIZABETH C EXAM 5 MEDICAL CHEST 2 IMAGING VIEWS ASS FRONTAL&L ATERAL CT THORAX 63560 LUCY AYALA 5 [facility] W/CONTRAS INC INC T MATERIAL RADIOLOGI 65820 LUCY AYALA C EXAM 5 [facility] CHEST 2 INC INC VIEWS FRONTAL&L ATERAL ALBUTEROL J7620 YOUR YOUR TO 2.5 5 PHARMACY PHARMACY [employer] IPRATROPI UM BROM TO 0.5 MG NEBULIZER E0570 MILDRED LEVY WITH 5 HOME HOME COMPRESSO MEDICAL MEDICAL R EQUIPME EQUIPME PHARM G0333 YOUR YOUR DISPEN 5 PHARMACY PHARMACY FEE INHAL [employer] RX; INITIAL 30-DAY SUPPLY CATARACT 17714 [facility] REMOVAL 5 JAMILAH JAMILAH INSERTION [...] EQUIPME EQUIPME ARWAY PRESS DEVICE EA POLYSOM 79794 NEERAJ KERN MAR 6/>YRS 4 SLEEP 4/> NEUROSCIE ADDL NCES CENT AMA ATTND POLYSOM 19525 LUCY AYALA 6/>YRS 4 [facility] SLEEP 4/> INC INC ADDL AMA ATTND IMC/IMC G0461 LUCY AYALA PER 4 [facility] SPECIMEN; INC INC 1ST SNGL/MPX ANTIBODY STN SPECIAL 56026 LUCY AYALA STAIN 4 [facility] GROUP 1 INC INC MICROORGA NISMS I&R SPCL STN 24781 LUCY AYALA 2 I&R 4 [facility] EXCPT INC INC MICROORG/ ENZYME/[place] L[place] [address] LUCY AYALA SURG 4 [facility] PATHOLOGY INC INC GROSS&[place] [address] LUCY AYALA INFUSION 4 [facility] THERAPY INC INC PROPHYLAX [place] [address] LUCY AYALA INFUSION 4 [facility] THERAPY/P INC INC ROPHYLAXI S /DX 1ST TO 1 HR SPMTRY 62091 LUCY AYALA W/VC 4 [facility] EXPIRATOR INC INC Y ALFREDO W/WO MXML VOL VNTJ ECHO 30803 LUCY AYALA TTHRC R-T 4 [facility] 2D INC INC W/WOM-MOD E COMPL SPEC&COLR D CV STRS 33194 KEITH MORENO TST 4 XERS&/OR RX CONT ECG W/O I&R MYOCARDIA 18358 LUCY Parra SPECT 4 [facility] MULTIPLE INC INC STUDIES MYOCARDIA 75453 TEX Parra 4 MEDICAL EMY PERFUSION IMAGING PLANAR ASS MULTIPLE STUDIES CV STRS 43407 GLENN JR GLENN JR TST 4 DWI DWI XERS&/OR RX CONT ECG I&R ONLY RADIOLOGI 96970 [facility] EXAM 4 MEDICAL EMY [...] SONE ACETATE & PHOSPHATE [address] [facility] C EXAM 3 EMY EMY CHEST 2 [...] RENT; EQUIPME EQUIPME FLWMTR HUMIDFR&M ASK 3D 04471 LUCY AYALA RENDERING 2 [facility] INC INC W/INTERP& POSTPROC DIFF WORK STATION CT THORAX 11316 LUCY AYALA W/O 2 [facility] CONTRAST INC INC MATERIAL PRTBLE E0431 MILDRED MILDRED GASEOUS 2 HOME HOME O2 SYS MEDICAL MEDICAL RENT; EQUIPME EQUIPME FLWMTR HUMIDFR&M ASK TOBACCO 76850 JAMES JAMES USE 2 DON DON CESSATION INTERMEDI ATE 3-10 MINUTES PRTBLE E0431 MILDRED MILDRED GASEOUS 2 HOME HOME O2 SYS MEDICAL MEDICAL RENT; EQUIPME EQUIPME FLWMTR HUMIDFR&M ASK PRTBLE E0431 MILDRED MILDRED GASEOUS 2 HOME HOME O2 SYS MEDICAL MEDICAL RENT; EQUIPME EQUIPME FLWMTR HUMIDFR&M ASK RADIOLOGI 12860 [facility] C EXAM 2 MEDICAL EMY CHEST 2 IMAGING VIEWS ASS FRONTAL&L ATERAL SPMTRY 69700 LUCY AYALA W/VC 2 [facility] EXPIRATOR INC INC Y ALFREDO W/WO MXML VOL VNTJ PRTBLE E0431 MILDRED MILDRED GASEOUS 2 HOME HOME O2 SYS MEDICAL MEDICAL RENT; EQUIPME EQUIPME FLWMTR HUMIDFR&M ASK SMR PRIM 59530 LUCY AYALA SRC 2 [facility] GRAM/GIEM INC INC SA STAIN BCT FUNGI/VAHID L CELL 25893 LUCY AYALA COUNT 2 [facility] MISC BODY INC INC FLUIDS W/DIFFERE NTIAL COUNT CYTP 04918 PATHOLOGY PATHOLOGY SLCTV 2 & & CELL CYTOLOGY CYTOLOGY ENHANCEME LAB LAB NT INTERPJ XCPT C/V COLLECTIO 87662 LUCY AYALA N VENOUS 2 [facility] BLOOD INC INC VENIPUNCT URE RADIOLOGI 25264 [facility] C EXAM 2 MEDICAL EMY CHEST 2 IMAGING VIEWS ASS FRONTAL&[place] [address] LUCY AYALA IRON 2 [facility] INC INC CARBOXYHE 18972 LUCY AYALA MOGLOBIN 2 [facility] QUANTITAT INC INC ARCENIO THORACENT 23526 [facility] ESIS 2 MEDICAL EMY PUNCTURE IMAGING PLEURAL ASS CAVITY ASPIRATIO N TISS FRED 97876 LUCY AYALA SLIDE 2 [facility] SAMPS INC INC SKN/HR/NL S FNGI/[place] [address] [facility] GUIDANCE 2 MEDICAL EMY NEEDLE IMAGING PLACEMENT ASS CUL BACT 64717 LUCY AYALA XCPT 2 [facility] URINE INC INC BLOOD/STO OL AEROBIC ISOL CULTURE 97734 LUCY AYALA BACTERIAL 2 [facility] ANY INC INC SOURCE ANAEROBIC ISO&ID CULTURE 41263 LUCY AYALA TUBERCLE/ 2 [facility] OTH INC INC ACID-FAST BACILLI ANY ISOL CT THORAX 71896 [facility] W/O 2 MEDICAL EMY CONTRAST IMAGING MATERIAL ASS LACTATE 93717 LUCY AYALA DEHYDROGE 2 [facility] NASE LDH INC INC PROTEIN 19992 LUCY AYALA XCPT 2 [facility] REFRACTOM INC INC ETRY SERUM PLASMA/WH L BLD BLOOD 01517 LUCY LUCY GASES ANY 2 [facility] INC INC COMBINATI ON PH PCO2 PO2 CO2 HCO3 GLUCOSE 30928 LUCY BOBON BODY 2 [facility] FLUID INC INC OTHER THAN BLOOD IRON 92565 LUCY LUCY BINDING 2 [facility] CAPACITY INC INC NONINVASI 69377 LUCYJOAN BOBON VE 2 [facility] EAR/PULSE INC INC OXIMETRY SINGLE DETER CYANOCOBA 39863 LUCY LUCY BETTIE 2 [facility] VITAMIN INC INC B-12 ECG 20793 LUCY AYALA ROUTINE 2 [facility] ECG INC INC W/LEAST 12 LDS TRCG ONLY W/O I&R ECG 41505 RUSH BEVERLY ROUTINE 2 JENNA JENNA ECG W/LEAST 12 LDS I&R ONLY CT THORAX 24997 LUCY LUCY W/O 2 [facility] CONTRAST INC INC MATERIAL 3D 65123 [facility] RENDERING 2 MEDICAL EMY IMAGING W/INTERP& ASS POSTPROC DIFF WORK STATION SPUTUM 81900 LUCYJOAN AYALA OBTAINING 2 [facility] SPEC INC INC AEROSOL INDUCED TX SPX PRTBLE E0431 MILDRED LEVY GASEOUS 2 HOME HOME O2 SYS MEDICAL MEDICAL RENT; EQUIPME EQUIPME FLWCOR HUMIDFR&M ASK PRTBLE E0431 MILDRED MILDRED GASEOUS 2 HOME HOME O2 SYS MEDICAL MEDICAL RENT; EQUIPME EQUIPME FLWMTR HUMIDFR&M ASK SPMTRY 80259 MARIS POLLOCK W/VC 2 JAM JAM EXPIRATOR Y ALFREDO W/WO MXML VOL VNTJ PRTBLE E0431 MILDREDTEJINDER BARBERRELL GASEOUS 2 HOME HOME O2 SYS MEDICAL MEDICAL RENT; EQUIPME EQUIPME FLWMTR HUMIDFR&M ASK PRTBLE E0431 MILDREDTEJINDER BARBERRELL GASEOUS 2 HOME HOME O2 SYS MEDICAL MEDICAL RENT; EQUIPME EQUIPME FLWMTR HUMIDFR&M ASK RADIOLOGI 17080 JAMESKRISTA JAMES C EXAM 2 DON DON CHEST 2 VIEWS FRONTAL&L ATERAL CT THORAX 15768 [facility] EMY W/CONTRAS IMAGING T ASS MATERIAL BLOOD 75203 COMBINED COMBINED COUNT 2 PHYSICIAN PHYSICIAN COMPLETE S LA S LA AUTO&AUTO DIFRNTL WBC LIPID 26915 COMBINED COMBINED PANEL 2 PHYSICIAN PHYSICIAN S LA S LA COMPREHEN 61289 COMBINED COMBINED SIVE 2 PHYSICIAN PHYSICIAN [place] [address] COMBINED COMBINED PROSTATE 2 PHYSICIAN PHYSICIAN SPECIFIC [...] EQUIPME EQUIPME [facility] FLW RATE PRTBLE E0431 MILDRED LEVY GASEOUS 1 HOME HOME O2 SYS MEDICAL MEDICAL RENT; EQUIPME EQUIPME FLWCOR HUMIDFR&M ASK PRTBLE E0431 MILDRED LEVY GASEOUS 1 HOME HOME O2 SYS MEDICAL MEDICAL RENT; [facility] HUM[facility] ASK O2 CONC 1 E1390 MILDRED VARMA 1 HOME HOME 85%/>02 MEDICAL MEDICAL CONC AT EQUIPME EQUIPME [facility] FLW RATE O2 CONC 1 E1390 MILDRED LUIS [facility] 1 HOME MED HOME MED 85%/>02 EQUIP. L EQUIP. L CONC AT [facility] FLW RATE PRTBLE E0431 MILDRED LEVY GASEOUS 1 HOME MED HOME MED O2 SYS EQUIP. L EQUIP. L RENT; [facility] HUMIDFR&M ASK PRTBLE E0431 MILDRED LEVY GASEOUS 1 HOME MED HOME MED O2 SYS EQUIP. L EQUIP. L RENT; [facility] HUMIDFR&M ASK O2 CONC 1 E1390 [place] 1 HOME MED HOME MED 85%/>02 EQUIP. L EQUIP. L CONC AT [facility] FLW RATE O2 CONC 1 E1390 MILDRED LUIS [facility] 1 HOME MED HOME MED 85%/>02 EQUIP. L EQUIP. L CONC AT [facility] FLW RATE PRTBLE E0431 MILDRED LEVY GASEOUS 1 HOME MED HOME MED O2 SYS EQUIP. L EQUIP. L [facility]; [facility] PRTBLE E0431 MILDRED LEVY GASEOUS 1 HOME MED HOME MED O2 SYS EQUIP. L EQUIP. L RENT; [facility] HUMIDFR&M ASK O2 CONC 1 E1390 MILDRED [place] [facility] 1 HOME MED HOME MED 85%/>02 EQUIP. L EQUIP. L CONC AT [facility] FLW RATE O2 CONC 1 E1390 [place] 1 HOME MED HOME MED 85%/>02 EQUIP. L EQUIP. L CONC AT [facility] FLW RATE PRTBLE E0431 MILDRED LEVY GASEOUS 1 HOME MED HOME MED O2 SYS EQUIP. L EQUIP. L RENT; [facility] HUMIDFR&M ASK PRTBLE E0431 MILDRED BARBERRELL GASEOUS 0 HOME MED HOME MED O2 SYS EQUIP. L EQUIP. L RENT; [facility] HUMIDFR&M ASK O2 CONC 1 E1390 IMLDRED [place] 0 HOME MED HOME MED 85%/>02 EQUIP. L EQUIP. L CONC AT [facility] FLW RATE O2 CONC 1 E1390 [place] 0 HOME MED HOME MED 85%/>02 EQUIP. L EQUIP. L CONC AT [facility] FLW RATE PRTBLE E0431 MILDRED BARBERRELL GASEOUS 0 HOME MED HOME MED O2 SYS EQUIP. L EQUIP. L RENT; [facility] HUMIDFR&M ASK PRTBLE E0431 MILDRED BARBERRELL GASEOUS 0 HOME MED HOME MED O2 SYS EQUIP. L EQUIP. L RENT; [facility] HUMIDFR&M ASK O2 CONC 1 E1390 MILDRED [...] O2 SYS EQUIP. L EQUIP. L RENT; [facility] HUMIDFR&M ASK SMR PRIM 31977 [facility] SRC 0 Y Y GRAM/GIAULTMAN [facility] SA STAIN BCT FUNGI/VAHID L VIRUS 71184 [facility] 0 Y Y E [facility] ID IMFLUOR STAIN EA CYTP FINE 79189 [place] BRENDEN REINA NDL 0 MEDICAL ASPIRATE SERV IMMT FOUNDATIO CYTOHIST STD DX 1ST CYTP EVAL 95446 [place] BREND[place] REINA FINE 0 MEDICAL NEEDLE SERV ASPIRATE FOUNDATIO INTERP & REPORT CONCENTRA 30082 [facility] TION 0 Y Y INFECTIOU [facility] S AGENTS VIRUS 13500 [facility] TISS CUL 0 [facility] ON CYTOPATHI C EFFECT IADNA NOS 13217 [facility] 0 Y Y AMPLIFIED [facility] PROBE TQ EACH ORGANISM CULTURE 34454 [facility] FUNGI 0 [facility] E ID EACH ORGANISM YEAST CELL 76846 [facility] COUNT 0 Y Y MISC BODY [facility] FLU[place] [address] [place] ALIRIO SURG 0 MEDICAL BRILL YOL PATHOLOGY SERV FOUNDATIO GROSS&JESS ROSCOPIC EXAM CULTURE 59912 [facility] TUBERCLE/ 0 Y Y OTH [facility] ACID-FAST BACILLI ANY ISOL SMR PRIM 07075 [facility] SRC 0 Y Y FLUORESCE [facility] NT&/AFS BCT FNGI PARASIT CUL BACT 14710 [facility] XCPT 0 Y Y URINE [facility] BLOOD/STO OL AEROBIC ISOL BRNCHSC 42471 [facility] W/BRNCL 0 Y Y ALVEOLAR [facility] LAVAGE TISS FRED 91427 [facility] SLIDE 0 Y Y [facility] SKN/HR/NL S FNGI/ECTO PARASIT IAADI 82887 [facility] PNEUMOCUS 0 Y Y TIS [facility] CARINII CULTURE 96214 [facility] FNGI 0 Y Y MOLD/YEAS [facility] T PRSMPTV OTH XCPT BLOOD SPECIAL 97141 [place] ALIRIO STAIN 0 MEDICAL BRILL YOL GROUP 1 SERV MICROORGA FOUNDATIO NISMS I&R BRONCHOSC 44424 [place] KUMAR OPY 0 MEDICAL MARIAN W/TRANSBR SERV ONCHIAL FOUNDATIO LUNG BX 1 LOBE BRONCHOSC 12953 [place] KUMAR OPY 0 MEDICAL MARIAN NEEDLE BX SERV TRACHEA FOUNDATIO MAIN STEM&/BRO N INJECTION J3010 [facility] UNIVERS FENTANYL 0 Y Y CITRATE [facility] 0.1 MG RADIOLOGI 62612 ELIO ROBBINS C 0 MEDICAL JESS EXAMINATI SERV ON CHEST FOUNDATIO [place] FRONTAL INJECTION J2250 [facility] 0 Y Y MIDAZOLAM [facility] HCL PER 1 MG O2 CONC 1 E1390 MILDRED LEVY [place] 0 HOME MED HOME MED 85%/>02 EQUIP. L EQUIP. L CONC AT [facility] FLW RATE PRTBLE E0431 MILDRED LEVY GASEOUS 0 HOME MED HOME MED O2 SYS EQUIP. L EQUIP. L RENT; FLWMTR HUMIDFR&M ASK PHLEBOTOM 95056 COMBINED COMBINED Y 0 PHYSICIAN PHYSICIAN THERAPEUT S LA S LA IC SEPARATE PROCEDURE DUP-SCAN 37056 LUCY AYALA XTR VEINS 0 [facility] COMPLETE INC INC BILATERAL STUDY RADEX 72946 LUCY AYALA ESOPHAGUS 0 [facility] INC INC BRNCDILAT 96743 LUCY AYALA RSPSE 0 [facility] SPMTRY INC INC PRE&POST- BRNCDILAT ADMN BLOOD 85924 LUCY AYALA COUNT 0 [facility] COMPLETE INC INC AUTO&AUTO DIFRNTL WBC PULMONARY 46619 [place] POLLOCK STRESS 0 MEDICAL JAM TESTING SERV SIMPLE FOUNDATIO COMPREHEN 45351 LUCY AYALA SIVE 0 [facility] METABOLIC INC INC PANEL COLLECTIO 89141 LUCY AYALA N VENOUS 0 [facility] BLOOD INC INC VENIPUNCT URE COMPREHEN 44140 COMBINED COMBINED SIVE 0 PHYSICIAN PHYSICIAN METABOLIC S LAB S LAB PANEL COLLECTIO 16459 COMBINED COMBINED N VENOUS 0 PHYSICIAN PHYSICIAN BLOOD S LAB S LAB VENIPUNCT URE 3D 60233 [place] NELLY RENDERING 0 MEDICAL KEY IMAGING W/INTERP& ASS POSTPROC DIFF WORK STATION CT THORAX 13819 [place] NELLY W/O 0 MEDICAL KEY CONTRAST IMAGING MATERIAL ASS RADIOLOGI 48170 LUCY Wagner EXAM 0 [facility] CHEST 2 INC INC VIEWS FRONTAL&L ATERAL O2 CONC 1 E1390 MILDRED BARBERRELL [place] 0 HOME MED HOME MED 85%/>02 EQUIP. EQUIP. CONC AT [facility] FLW RATE PRTBLE E0431 MILDRED MILDRED GASEOUS 0 HOME MED HOME MED O2 SYS EQUIP. EQUIP. RENT; [facility] FLWMTR HUMIDFR&M ASK PRTBLE E0431 MILDRED MILDRED GASEOUS 0 HOME MED HOME MED O2 SYS EQUIP. EQUIP. RENT; [facility] FLWMTR HUMIDFR&M ASK RADIOLOGI 36103 ERIKA JAMES C EXAM 0 DON R DON R CHEST 2 VIEWS FRONTAL&L ATERAL O2 CONC 1 E1390 MILDRED BAR[place]LL [place] 0 HOME MED HOME MED 85%/>02 EQUIP. EQUIP. CONC AT [facility] FLW RATE INJECTION J1940 ERIKA JAMES, 0 DON R DON R FUROSEMID E UP TO 20 MG ECG 34241 ERIKA JAMES, ROUTINE 0 DON R DON R ECG W/LEAST 12 LDS W/I&R RADIOLOGI 77656 ERIKA JAMES C 0 DON R DON R EXAMINATI ON CHEST [facility] 13550 ERIKA JAMES, DISCHARGE 0 DON R DON R DAY MANAGEMEN T 30 MIN/< SBSQ 05733 [facility] R DON R CARE/DAY 25 MINUTES RADIOLOGI 72260 [place] Kristy VILLEGAS EXAM 0 MEDICAL JANE P CHEST 2 IMAGING VIEWS ASSOCIATE FRONTAL&L S ATERAL SBSQ 01681 JAMES, [facility] 0 DON R DON R CARE/DAY 25 MINUTES SBSQ 87869 JAMES, [facility] 0 DON R DON R CARE/DAY 25 MINUTES SBSQ 96185 [facility] 0 DON R DON R CARE/DAY [address] THORAX 81227 [place] FRANCESCA, 0 MEDICAL SHASHI W/CONTRAS IMAGING T ASSOCIATE MATERIAL S 3D 46371 [place] FRANCESCA, RENDERING 0 MEDICAL SHASHI IMAGING W/INTERP& ASSOCIATE POSTPROC S DIFF WORK STATION SBSQ 08792 [facility] 0 DON R DON R CARE/DAY 25 MINUTES RADIOLOGI [id number] [facility] 0 DON R DON R EXAMINATI ON CHEST [place] FRONTAL RADIOLOGI 95360 [facility] C EXAM 0 MEDICAL SHASHI CHEST 2 IMAGING VIEWS ASSOCIATE FRONTAL&L S ATERAL INITIAL 25384 [facility] 0 DON R DON R CARE/DAY 50 MINUTES OPHTH 32723 [facility] 9 DONTE A DONTE A XM&EVAL COMPRHNSV ESTAB PT 1/> OPHTH 04185 [facility] & NINI, [facility] 9 VITREOUS CALLIE W XM&EVAL ASSOCIATE INTERMEDI S O ATE ESTAB PT SCANNING 98854 [facility] NINI, [facility] 9 VITREOUS CALLIE W C IMAGING ASSOCIATE S O POSTERIOR SGM UNI INJECTION J1040 ERIKA JAMES, 8 DON R DON R METHYLPRE DNISOLONE ACETATE 80 MG SCANNING 62444 [facility], [facility] 8 VITREOUS CALLIE W C IMAGING ASSOCIATE S O POSTERIOR SGM UNI OPHTH 16997 [facility] & NINI, [facility] 8 VITREOUS CALLIE W XM&EVAL ASSOCIATE INTERMEDI S O ATE ESTAB PT INJECTION J1040 ERIKA JAMES 8 DON R DON R METHYLPRE DNISOLONE ACETATE 80 MG OPHTH 81382 [facility] 8 DONTE A DONTE A XM&EVAL COMPRHNSV ESTAB PT 1/> OPHTH 38165 [facility] NINI, [facility] 8 VITREOUS CALLIE W XM&EVAL ASSOCIATE INTERMEDI S O ATE ESTAB PT SCANNING 67393 [facility]INI, [facility] 8 VITREOUS CALLIE W C IMAGING ASSOCIATE S O POSTERIOR SGM UNI INJECTION J1040 ERIKA JAMES, Adán RUTHERFORD R KRISH R METHYLPRE DNISOLONE ACETATE 80 MG RADIOLOGI 89536 ERIKA JAMES C EXAM 8 DON R KRISH R CHEST 2 VIEWS FRONTAL&L ATERAL SCANNING 56707 [facility] & [facility] 8 VITREOUS VITREOUS C IMAGING ASSOCIATE ASSOCIATE S O S O POSTERIOR SGM UNI OPHTH 01395 [facility] & MEDICAL 8 VITREOUS VITREOUS XM&EVAL ASSOCIATE ASSOCIATE INTERMEDI S O S O ATE ESTAB PT OPHTH 28979 [facility] & MEDICAL 8 VITREOUS VITREOUS XM&EVAL ASSOCIATE ASSOCIATE INTERMEDI S O S O ATE ESTAB PT SCANNING 61409 [facility] & [facility] 8 VITREOUS VITREOUS C IMAGING ASSOCIATE ASSOCIATE S O S O POSTERIOR SGM UNI INJECTION J1100 ERIKA JAMES, Adán RUTHERFORD R DON R DEXAMETHO SONE SODIUM PHOSPHATE 1 MG Encounters Encounter Start End Date Code Location Performer Type Date OFFICE 30507 [facility]ANNON OUTPATIEN 7 7 PHYSICIAN T VISIT S GROUP 40 MINUTES [facility]OSPITAL LUCY - 7 7 [facility] INC OFFICE 19536 [facility] OUTPATIEN 7 7 PHYSICIAN T VISIT S GROUP 25 MINUTES OFFICE 64099 [facility] OUTPATIEN 7 7 PHYSICIAN T VISIT S GROUP 40 MINUTES HOSPITAL LUCY - 7 7 [facility] OUTPATIEN INC T OFFICE 01866 A Kristy ROY OUTPATIEN 7 7 PILAR PLEITEZ T VISIT [facility] 15 MINUTES OFFICE 56460 [facility] Y OF CK T VISIT [place] 25 HOSPI MINUTES OFFICE 26667 A Kristy ROY OUTPATIRYLEE 7 7 PILAR PLEITEZ T VISIT [facility] 15 MINUTES HOSPITAL LUCY - 7 7 [facility] INPATIENT INC OFFICE 99657 A Kristy ROY OUTPATIEN 7 7 PILAR PLEITEZ T VISIT [facility] 15 MINUTES OFFICE 95367 A Kristy ROY OUTPATIRYLEE 7 7 PILAR PLEITEZ T VISIT PSC 15 MINUTES OFFICE 65874 A Kristy ROY OUTPATIRYLEE 7 7 PILAR PLEITEZ T VISIT PSC 15 MINUTES OFFICE 35781 ELIO POLLOCK OUTPATIEN 6 6 MEDICAL JAM T VISIT SERV 25 FOUNDATIO MINUTES N HOSPITAL LUCY - 6 6 [facility]PATI[facility] INC T OFFICE 44054 [facility] ALLRAN JR OUTPATIEN 6 6 PHYSICIAN RITA T VISIT S GROUP 10 MINUTES HOSPITAL LUCY - 6 6 [facility] OUTPATIEN INC T OFFICE 75511 [facility] OUTPATIEN 6 6 [facility] VISIT HOSPITAL 10 P MINUTES OFFICE 31623 A Kristy ROY OUTPATIEN 6 6 PILAR PLEITEZ T VISIT PSC 15 MINUTES OFFICE 89170 ELIO POLLOCK OUTPATIEN 6 6 MEDICAL JAM T VISIT SERV 15 FOUNDATIO MINUTES N OFFICE 67439 [facility] EVAN OUTPATIEN 6 6 [facility] 20 HOSPITAL MINUTES P OFFICE 79996 [facility] ALL[facility] JR OUTPATIEN 6 6 PHYSICIAN RITA T VISIT S GROUP 15 MINUTES HOSPITAL LUCY - 6 6 [facility] OUTPATIEN INC T OFFICE 24290 [facility] ALLRAN JR OUTPATIEN 6 6 PHYSICIAN RITA T NEW 45 S GROUP MINUTES HOSPITAL LUCY - [facility] OFFICE 63046 [place] [facility] 6 6 MEDICAL JAM T VISIT SERV 25 FOUNDATIO MINUTES N OFFICE 07294 A Kristy ROY OUTPATIEN 6 6 PILAR PLEITEZ T VISIT PSC 15 MINUTES OFFICE 77813 ELIO POLLOCK OUTPATIEN 6 6 MEDICAL JAM T VISIT SERV 25 FOUNDATIO MINUTES N EMERGENCY [id number] [facility] DEPT 6 6 Y OF MADALYN VISIT [facility]VERITY& THREAT [facility] LUCY - 6 6 [facility] OFFICE 44320 A Kristy ROY JENNA OUTPATIEN 6 6 PILAR PLEITEZ T VISIT PSC 15 MINUTES OFFICE 99008 A Kristy ROY JENNA OUTPATIEN 6 6 PILAR PLEITEZ T VISIT PSC 15 MINUTES [facility]OSP[facility] LUCY - 6 6 [facility] OFFICE 15926 [place] [facility] 6 6 MEDICAL JAM T VISIT SERV 40 FOUNDATIO MINUTES N OFFICE 36723 [place] [facility] [facility]PAT[facility] 6 6 MEDICAL T VISIT SERV 25 FOUNDATIO MINUTES [facility] LUC[facility] 6 6 [facility] OFFICE 02236 [place] [facility] OUTPATI[facility] 6 6 MEDICAL JAM T VISIT SERV 15 FOUNDATIO MINUTES [facility] LUCY - 5 5 [facility] OUT[facility] LUCY - 5 5 [facility] LUCY [facility] 5 5 [facility] OFFICE 45330 A C FIELD AMB OUTPATIEN 5 5 PILAR PLEITEZ T VISIT PSC 15 MINUTES OFFICE 99928 A C FIELD AMB OUTPATIEN 4 4 [...] [facility] LUC[facility] - 4 4 [facility] OUTPATIEN [facility] LUCY - 4 4 [facility] OFFICE 34922 FIELD AMB FIELD AMB OUTPATIEN 4 4 T VISIT 15 MINUTES OFFICE 89454 FIELD AMB FIELD AMB OUTPATIEN 3 3 T VISIT 15 MINUTES OFFICE 12909 A C FIELD AMB OUTPATIEN 3 3 PILAR PLEITEZ T NEW 30 PSC MINUTES OFFICE 57476 JAMES JAMES OUTPATIEN 3 3 DON DON T VISIT 15 MINUTES [facility] LUCY - 3 3 [facility] OFFICE 90043 JAMES JAMES OUTPATIEN 3 3 DON DON T VISIT 15 MINUTES [facility] LUCY - 2 2 [facility] OFFICE 90871 JAMES JAMES OUTPATIEN 2 2 DON DON T [facility]ISIT 15 MINUTES [facility] LUCY - 2 2 [facility] LUCY - 2 2 [facility] OUTPATIEN [facility] - 2 2 [facility] LUCY - 2 2 [facility] OFFICE 91426 JAMES JAMES OUTPATIEN 2 2 DON DON T VISIT 15 MINUTES OFFICE 74399 [facility] OUTPATIEN 1 1 DON DON T VISIT 15 MINUTES OFFICE 11092 JAMES JAMES OUTPATIEN 1 1 DON DON T VISIT 15 MINUTES OFFICE 00485 [facility] OUTPATIEN 1 1 DON DON T VISIT 15 MINUTES OFFICE 29893 J[facility]AMES OUTPATIEN 1 1 DON DON T VISIT 15 MINUTES [facility]OSP[facility] - [facility] - 0 0 [facility] - 0 0 [facility] LUCY - 0 0 [facility] OFFICE 81238 ERIKA JAMES OUTPATIEN 0 0 DON R DON R T VISIT 15 MINUTES OFFICE 04116 ERIKA JAMES OUTPATIEN 0 0 DON R DON R T VISIT 25 MINUTES OFFICE 22343 ERIKA JAMES OUTPATIEN 0 0 DON R DON R T VISIT 15 MINUTES OFFICE 32759 ERIKA JAMES OUTPATIEN 8 8 DON R DON R T VISIT 15 MINUTES OFFICE 10469 ERIKA JAMES OUTPATIEN 8 8 DON R DON R T VISIT 15 MINUTES OFFICE 13125 ERIKA JAMES OUTPATIEN 8 8 DON R DON R T VISIT 15 MINUTES OFFICE 21212 ERIKA JAMES OUTPATIEN 8 8 DON R DON R T VISIT 15 MINUTES OFFICE 32790 ERIKA JAMES OUTPATIEN 8 8 DON R DON R T VISIT 15 MINUTES
--- OUTSIDE RECORDS SUMMARY | 2017-02-15 19:46 | External Medical Summary Rpt | CCD ---
Author Author , RANDALL Dial RANDALL Address Unknown Phone [email or web address] Care Team Providers Care Roll Setter Name Role Phone A Kristy QUEZADA MD [...] JAMILAH WALLACE JAMILAH, Unavailable Unavailable WALLACE JAMILAH FOTNANEZ, FONTANEZ Unavailable Unavailable FONTANEZ ALL, FONTANEZ ALL Unavailable Unavailable ROBBINS JESS, ROBBINS Unavailable Unavailable JESS [facility] Unavailable Unavailable SERVICE, [facility] Unavailable Unavailable SERVICE, [facility] Unavailable [...] TAYLOR KEYANA, TAYLOR Unavailable Unavailable KEYANA [facility] Unavailable Unavailable INC, [facility] Unavailable Unavailable HOSPITAL P, [facility] P DONTE RUIZ, Unavailable Unavailable DONTE RUIZ A [facility], Unavailable Unavailable [facility] ARMENDARIZ JENNA, ARMENDARIZ JENNA Unavailable Unavailable HUI MIKHAIL, HUI MIKHAIL Unavailable Unavailable BECKY MAR, BECKY Unavailable Unavailable [facility] NINI, CALLIE W, Unavailable Unavailable CALLIE TERRAZAS W [facility] Un[facility] Unavailable [facility] GLENN JR, GLENN JR Unavailable Unavailable GLENN JR DWI, GLENN Unavailable Unavailable JR DWI [facility] Unavailable Unavailable INTER[facility] MED, [facility] JAMES CON, JAMES CON [...] Unavailable REYEZ CLEO, REYEZ CLEO Unavailable Unavailable LAMIN [...] PHARM #[id number] [facility] Unavailable Unavailable [id number] # [id number], [facility] [id number] # [id number] SHANELL, SHANELL Unavailable Unavailable SHANELL CAR, Unavailable Unavailable SHANELL CAR SHASHY KEY, SHASHY Unavailable Unavailable KEY RHIANNON, RHIANNON Unavailable Unavailable SONG MIREYA, SONG MIERYA Unavailable Unavailable MIL[facility]ED ERIKA, MILDRED Unavailable Unavailable [...] Unavailable MADALYN OTTO SUSAN, OTTO Unavailable Unavailable [facility], Unavailable [facility] Unavailable [facility] HIEU GAMEZ, HIUE Unavailable Unavailable [facility], Unavailable [facility], Unavailable [facility]available [facility] MARINA NIXON, Unavailable Unavailable MARINA NIXON Purpose Continuity of Care Document - 04-25-2007 through 2016 Problems Code Diagnosis DOS Provider Status 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 12-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 [facility]IS LLC J349 UNSPECIFIED 12-06-2016 [place] DISORDER MEDICAL OF NOSE AND IMAGING ASS NASAL SINUSES R531 WEAKNESS 12-06-2016 [facility] I4891 UNSPECIFIED 12-05-2016 [facility]IAL [facility] P N I495 SICK SINUS 12-05-2016 [facility] SYNDROME [facility] P J42 UNSPECIFIED 12-05-2016 [facility] CHRONIC [facility] BRONCHITIS [place] [facility] P R0600 DYSPNEA 12-05-2016 [place] UNSPECIFIED [facility]ICAL IMAGING ASS 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-2016 [facility] 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 Z950 PRESENCE OF 11-26-2016 [facility] PACEMAKER GROUP E785 HYPERLIPIDE 11-15-2016 [facility] UNSPECIFIED GROUP I10 ESSENTIAL 11-15-2016 [facility] HYPERTENSIO [place] [facility] P N I119 HYPERTENSIV 11-15-2016 [facility] E HEART [facility]YS[facility]ANS DISEASE GROUP WITHOUT HEART FAILURE 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 R110 NAUSEA 11-15-2016 [facility] R55 SYNCOPE AND 11-15-2016 [facility] COLLAPSE [facility] GROUP R0602 SHORTNESS 11-02-2016 [facility] IM[facility] ASS R079 CHEST PAIN 11-02-2016 [place] UNSPECIFIED [facility]ICAL IMAGING ASS I4519 OTHER RIGHT 10-31-2016 [facility] PHYSICIANS, BUNDLE-BRAN PLLC CH BLOCK J189 PNEUMONIA 10-31-2016 [facility] UNSPECIFIED PHYSICIANS, ORGANISM PLLC F24495 PERSONAL 10-31-2016 [facility] HISTORY OF PHYSICIANS, NICOTINE PLLC DEPENDENCE 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 10-24-2016 [facility] P I509 HEART 10-24-2016 [facility] P J441 CHRONIC 10-24-2016 [facility] P DZ W/EXACERBAT ION Z4509 ENCOUNTER 10-24-2016 [facility] ADJUST & [facility] MANAGEMENT INC OT CARDIAC DEVICE R918 OTHER 09-14-2016 [place] NONSPECIFIC MEDICAL ABNORMAL IMAGING ASS FINDING OF LUNG FIELD J410 SIMPLE 09-04-2016 A Kristy QUEZADA CHRONIC PSC BRONCHITIS R938 ABNORMAL 09-04-2016 [facility] FIND ON DX PHYSICIANS IMAGING OT GROUP SPEC BODY STRCT I200 UNSTABLE 08-27-2016 [facility] AN[facility]A [facility] GROUP A68674 ASHD [place] 08-25-2016 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 08-25-2016 [facility] CURRENT USE [facility] OF [...] PSC CONGESTIVE HEART FAILURE C9110 CHRONIC 01-11-2016 [facility] 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 R634 ABNORMAL 01-11-2016 [facility] WEIGHT LOSS [facility] INC R1110 VOMITING 01-09-2016 [facility] UNSPECIFIED PHYSICIANS GROUP K828 OTHER 01-02-2016 [place] SPECIFIED MEDICAL DISEASES OF IMAGING ASS GALLBLADDER R630 ANOREXIA 01-02-2016 [facility] K921 MELENA 11-07-2015 [facility] K5710 DIVERTICULO 11-03-2015 [place] SIS SM MEDICAL INTEST W/O IMAGING ASS PERF/ABSC W/O BLEED R195 OTHER FECAL 11-03-2015 [place] [facility] ABNORMALITI IMAGING ASS ES W17330 LYMPHOCYTOS 10-26-2015 [facility] IS PATHOLOGY SYMPTOMATIC LAB NETW J690 PNEUMONITIS 10-26-2015 [facility] DUE TO SERV INHALATION FOUNDATION OF FOOD AND VOMIT Z09 ENC F/U 10-20-2015 A C QUEZADA EXAM AFTR PSC CMPL TX OTH THAN ETIENNE NEOPLSM B370 CANDIDAL 10-19-2015 [facility] STOMATITIS SERV FOUNDATION R112 NAUSEA WITH 10-19-2015 [facility] VOMITING SERV UNSPECIFIED FOUNDATION R9431 ABNORMAL 09-18-2015 [facility] ELECTROCARD SERV IOGRAM FOUNDATION I4510 UNSPECIFIED 09-15-2015 [facility] RIGHT SERV BUNDLE-BRAN FOUNDATION CH BLOCK R001 BRADYCARDIA 09-15-2015 [facility] UNSPECIFIED [facility] B965 PSEUDOMONAS 09-14-2015 [place] [facility] CAUSE OF SERV DZ [facility] CLASSIFIED ELSEWHERE J9600 ACUTE 09-14-2015 [facility] RESPIRATORY SERV FAIL UNS FOUNDATION HYPOXIA/HYP ERCAPNIA J9811 ATELECTASIS 09-14-2015 [facility] A64983 ENCOUNTER 09-14-2015 [facility] SURG SERV AFTERCARE [...] ABDOMINAL SERV PAIN FOUNDATION Z4682 ENCOUNTER 09-08-2015 [facility] ADJUST HOSPI NON-VASCULA R CATHETER 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-07-2015 [facility] DISORDER SERV UNSPECIFIED FOUNDATION I517 CARDIOMEGAL 09-07-2015 [place] [facility] Y [facility] I5189 OTHER 09-07-2015 [facility] ILL-DEFINED SERV HEART FOUNDATION DISEASES R0902 HYPOXEMIA 09-06-2015 [facility] R0689 OTHER 09-02-2015 [facility] ABNORMALITI SERV ES OF FOUNDATION BREATHING J942 HEMOTHORAX 08-30-2015 [facility] J948 OTHER 08-30-2015 [place] [facility] SPECIFIED SERV PLEURAL FOUNDATION CONDITIONS L538 OTHER 08-30-2015 [facility] SPECIFIED SERV ERYTHEMATOU FOUNDATION S CONDITIONS Z9889 OTHER 08-30-2015 [facility] SPECIFIED SERV POSTPROCEDU FOUNDATION RAL STATES 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 K4030 UNILAT 08-25-2015 [place] [facility]GU[facility]AL [facility] NGUYEN W/OBST HOSPI W/O GANGRN NOT RECUR K4040 UNILAT 08-25-2015 [facility] INGUINAL SERV NGUYEN FOUNDATION W/GANGREN NOT SPEC RECUR V53972 ELEVATED 08-24-2015 [facility] CELL COUNT HOSPITAL P UNSPECIFIED K4090 UNILAT 08-24-2015 [facility] INGUINAL SERV NGUYEN W/O FOUNDATION OBST/GANGRE N NOT RECUR K5660 UNSPECIFIED 08-24-2015 [facility] AMBULANCE SERVICE OBSTRUCTION R1031 RIGHT LOWER 08-24-2015 [facility] PAIN HOSPI J439 EMPHYSEMA 08-03-2015 [place] UNSPECIFIED [place] INTERNAL MED J929 PLEURAL 08-03-2015 [place] PLAQUE MEDICAL WITHOUT IMAGING ASS ASBESTOS R002 PALPITATION 08-03-2015 [facility] S SERV F[facility]ATION R031 NONSPECIFIC 08-03-2015 [facility] LOW SERV BLOOD-PRESS FOUNDATION URE READING R42 DIZZINESS 08-03-2015 [facility] AND SERV GIDDINESS FOUNDATION Z7722 CONTACT W/ 07-13-2015 [facility] & SUSPECTED SERV EXPOS FOUNDATION ENVIR TOBACCO SMOKE J40 BRONCHITIS 03-25-2015 [place] NOT MEDICAL SPECIFIED IMAGING ASS ACUTE OR CHRONIC R091 PLEURISY 01-21-2015 [facility] 4280 CONGESTIVE 01-14-2015 [facility] HEART HOME FAILURE MEDICAL UNSPECIFIED EQUIPME 85025 OBSTRUCTIVE 01-14-2015 [facility]ACY [facility] WITHOUT EXACERBAT 496 CHRONIC 01-14-[address] [facility] [address] HOME OBSTRUCTION MEDICAL NEC EQUIPME 95347 NUCLEAR 12-28-2014 [facility] SCLEROSIS JAMILAH 28217 OBST 09-06-2014 A Kristy QUEZADA CHRONIC PSC BRONCHITIS W/ACUTE BRONCHITIS 12880 LOSS OF 09-06-2014 A Kristy QUEZADA WEIGHT PSC 25252 OTHER CHEST 09-06-2014 A Kristy TREVINO MD PSC 35796 OBSTRUCTIVE 09-05-2014 [facility] SLEEP HOME APNEA MEDICAL EQUIPME 7242 LUMBAGO 04-01-2014 A Kristy QUEZADA MD PSC V0382 NEED PROPH 04-01-2014 A Kristy QUEZADA VACCINATION PSC AGAINST STREP PNEUMONE 37492 ATRIAL 01-13-2014 [facility] FIBRILLATIO [facility] N INC 83792 REFLUX 01-13-2014 [facility] ESOPHAGITIS [facility] INC 03156 UNS 01-13-2014 [facility] GASTRITIS&G [facility] ASTRODUODIT INC IS W/O MENTION HEMORR 70035 ABDOMINAL 01-13-2014 [facility] PAIN, MEM [facility] GENERALIZED INC V5869 LONG-TERM 01-13-2014 [facility] (CURRENT) [facility] USE OF INC OTHER MEDICATIONS 23004 CHEST PAIN 11-24-2013 [facility] UNSPECIFIED [facility] INC 5110 PLEURISY 10-29-2013 [place] WITHOUT MEDICAL MENTION IMAGING ASS EFFUS/CURRE NT TB 7862 COUGH 10-29-2013 [place] 75976 INSOMNIA 12-16-2012 A Kristy BANSAL MD PSC 22455 OTHER 12-16-2012 A Kristy QUEZADA MALAISE AND PSC FATIGUE 00662 FEVER 05-23-2012 J[facility] UNSPECIFIED DON 25770 WHEEZING 05-23-2012 JAMES DON 1120 CANDIDIASIS 05-21-2012 JAMES OF MOUTH DON 81729 OTHER 05-21-2012 FRANCESCA DISEASES OF EMY LUNG NOT ELSEWHERE CLASSIFIED 4940 BRONCHIECTA 01-28-2012 [place] SIS WITHOUT MEDICAL ACUTE IMAGING ASS EXACERBATIO N 5119 UNSPECIFIED 01-28-2012 [place] PLEURAL MEDICAL EFFUSION IMAGING ASS 03575 OTHER 01-28-2012 [facility] NONSPECIFIC [facility] ABNORMAL INC FINDING OF LUNG FIELD 98007 OSTEOARTHRO 01-02-2012 JAMES S INVLV MX DON SITES [place] [address] OBSTRUCTIVE 11-12-2011 [facility] CHRONIC [facility] BRONCHITIS INC WITH EXACERBATIO N 32519 ESOPHAGEAL 11-12-2011 [facility] REFLUX [facility] INC 2859 UNSPECIFIED 10-05-2011 [facility] ANEMIA [facility] INC 5180 PULMONARY 10-05-2011 [place] COLLAPSE MEDICAL IMAGING ASS 486 PNEUMONIA, 09-28-2011 [place] ORGANISM MEDICAL UNSPECIFIED IMAGING ASS 5070 PNEUMONITIS 09-28-2011 [place] DUE TO JAM INHALATION OF FOOD OR VOMITUS 54677 SHORTNESS 09-28-2011 [facility] OF BREATH [facility] INC 21803 ABDOMINAL 09-28-2011 [facility] PAIN, MEM HOS[facility] EPIGASTRIC INC V1261 PERSONAL 09-28-2011 [place] HISTORY JAM PNEUMONIA RECURRENT 34094 PNEUMONIA 06-08-2011 [facility] DUE TO DON OTHER SPECIFIED BACTERIA 2724 OTHER AND 05-11-2011 COMBINED UNSPECIFIED PHYSICIANS LA HYPERLIPIDE [place] 2768 HYPOPOTASSE 05-11-2011 COMBINED [place] PHYSICIANS LA 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 6019 UNSPECIFIED 05-11-2011 [place] [address] PAIN IN 05-11-2011 COMBINED JOINT, PHYSICIANS MULTIPLE LA SITES 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 5183 PULMONARY 11-28-2009 [facility] A 45521 ACUTE 11-28-2009 [facility] RESPIRATORY SERV FAILURE FOUNDATIO 7856 ENLARGEMENT 11-28-2009 [facility] NODES 7931 NONSPEC 11-28-2009 [facility] FIND RAD SERV OTH EXAM FOUNDATIO BODY STRUCT LUNG FIELD V1582 PERS HX 11-28-2009 [place] TOBACCO USE [place] [facility] PRESENTING HAZARDS HE[facility] V7282 PRE-OPERATI 11-28-2009 [facility] VE SERV RESPIRATORY FOUNDATIO EXAMINATION 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 06533 DYSPHAGIA 11-18-2009 [place] UNSPECIFIED MEDICAL IMAGING ASS 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, 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 31637 OSTEOARTHRO 08-23-2009 [facility] SIS UNSPEC DON R WHETHER GEN/LOC LOWER LEG 37386 OSTEOARTHRO 08-23-2009 ERIKA, S UNSPEC DON R GEN/LOC OTH SPEC SITES 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 [place] & 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 07-20-2008 [facility] & SENILE VITREOUS MACULAR ASSOCIATES DEGENERATIO O N OF RETINA 32929 CRYSTALLINE 07-20-2008 [place] & DEPOSITS VITREOUS IN VITREOUS ASSOCIATES O 4610 ACUTE 02-27-2008 ERIKA, MAXILLARY DON R SINUSITIS 4659 ACUTE URIS 02-27-2008 E[facility]KA, OF DON R UNSPECIFIED SITE 8472 LUMBAR 11-14-2007 JAMES, SPRAIN AND DON R STRAIN 4660 ACUTE 08-02-2007 ERIKA, BRONCHITIS DON R 4871 INFLUENZA 07-04-2007 ERIKA, WITH OTHER DON R RESPIRATORY MANIFESTATI ONS 21260 PAIN IN 04-25-2007 ERIKA, JOINT, DON R SHOULDER REGION 72360 UNSPECIFIED 04-25-2007 JAMES, SYNOVITIS DON R AND [...] CY 03 93 8 # 03 93 ME 00 04 04 00 12 6 RI [...] YOUR SM VOL 7 PHARMACY PHARMACY NONFILTR [employer] PNEUMAT NEBULIZR DISPBL ALBUTEROL J7620 YOUR YOUR TO 2.5 7 PHARMACY PHARMACY [employer] LLC [place]ATROP[place] [address] [place] [address] [facility] HEAD/BRAI 7 MEDICAL N W/O & IMAGING W/CONTRAS ASS T MATERIAL RADIOLOGI 92288 [facility] 7 MEDICAL EXAMINATI IMAGING ON CHEST ASS [place] FRONTAL ECG 72653 [facility] BEVERLY ROUTINE 7 [facility] W/LEAST P 12 LDS I&R ONLY O2 CONC [address] [facility] 7 HOME HOME 85%/>02 MEDICAL MEDICAL CONC AT EQUIPCO [facility] FLW RATE INTERROGA 21165 [facility] TION EVAL 7 PHYSICIAN REMOTE S GROUP </90 D 1/2/PROJECT/PRODUCTION MANAGER IMAGING LEAD PM RADIOLOGI 62318 [facility] EXAM 7 MEDICAL CHEST 2 IMAGING VIEWS ASS FRONTAL&L ATERAL ECG 02541 [facility] ROUTINE 7 PHYSICIAN ECG S GROUP W/LEAST 12 LDS I&R ONLY ECG 49857 [facility] ELIZABETH JR ROUTINE 7 [facility] W/LEAST P 12 LDS I&R ONLY RADIOLOGI 75908 [facility] EXAM 7 MEDICAL CHEST 2 IMAGING VIEWS ASS FRONTAL&L ATERAL ECG 02860 L[facility] KIMBLE ROUTINE 7 PHYSICIAN PHYSICIAN ECG S, PLLC S, PLLC W/LEAST 12 LDS I&R ONLY RADIOLOGI 33130 [facility] 7 MEDICAL EXAMINATI IMAGING ON CHEST ASS SINGLE VIEW FRONTAL RADIOLOGI 85523 [place] [facility] 7 MEDICAL EXAMINATI IMAGING ON CHEST ASS [place] FRONTAL INS 55657 [facility] NEW/RPLCM 7 PHYSICIAN T PRM PM S GROUP W/TRANSV ELTRD ATRIAL&VE NT ECG 34516 [facility] ROUTINE 7 [facility] W/LEAST P 12 LDS I&R ONLY ECG 47960 [facility] ROUTINE 7 [facility] W/LEAST P 12 LDS I&R ONLY RADIOLOGI 43303 [facility] 7 MEDICAL EXAMINATI IMAGING ON CHEST ASS SINGLE VIEW FRONTAL ALBUTEROL J7620 YOUR YOUR TO 2.5 7 PHARMACY PHARMACY MG & [employer] IPRATROPI UM BROM TO 0.5 MG ADMN SET A7003 YOUR YOUR SM VOL 7 PHARMACY PHARMACY [employer] PNEUMAT NEBULIZR DISPBL ECG 61525 [facility] ROUTINE 7 PHYSICIAN ECG S GROUP W/LEAST 12 LDS I&R ONLY O2 CONC 1 E1390 [facility] VARMA 7 HOME HOME 85%/>02 MEDICAL MEDICAL CONC AT EQUIPME [facility] FLW RATE CT THORAX 87564 [facility] [facility] 7 MEDICAL W/CONTRAS IMAGING T ASS MATERIAL ADMN SET A7003 YOUR YOUR SM VOL 7 PHARMACY PHARMACY TrulyILTR [employer] PNEUMAT NEBULIZR DISPBL ALBUTEROL J7620 YOUR YOUR TO 2.5 7 PHARMACY PHARMACY MG & [employer] IPRATROPI UM BROM TO 0.5 MG ALBUTEROL J7620 A C A C TO 2.5 7 PILAR QUEZADA MD MG & PSC PSC IPRATROPI UM BROM TO 0.5 MG ECG 43970 [facility] ROUTINE 7 PHYSICIAN ECG S GROUP W/LEAST 12 LDS I&R ONLY O2 CONC [address] E[address] [facility] 7 HOME HOME 85%/>02 MEDICAL MEDICAL CONC AT [facility] FLW RATE NONINVASI 63041 [facility] AYALA VE 7 MEM HOSP [facility]OS[facility] EAR/PULSE INC INC OXIMETRY SINGLE DETER R & L HRT 01155 [facility] CATH 7 PHYSICIAN WINJX HRT S GROUP ART& L VENTR IMG HOSPITAL G0378 [facility] AYALA OBSERVATI 7 MEM HOSP [facility]OS[facility] ON INC INC SERVICE PER HOUR HOSPITAL G0378 LUCY AYALA OBSERVATI 7 MEM HOSP [facility] HOS[facility] ON INC INC SERVICE PER HOUR NONINVASI 24584 L[facility] AYALA VE 7 MEM HOSP [facility]OS[facility] EAR/PULSE [place] [address] LUC[facility] AYALA INFUSION 7 MEM HOSP MEM HOS[facility] THERAPY/P INC INC ROPHYLAXI S /DX 1ST TO 1 HR ECG 31686 [facility] ELIZABETH JR ROUTINE 7 [facility] W/LEAST P 12 LDS I&R ONLY HOSPITAL G0378 [facility] AYALA OBSERVATI 7 MEM HOS[facility] ON INC INC SERVICE PER HOUR RADIOLOGI 98928 [facility] 7 MEDICAL EXAMINATI IMAGING [place] [address] L[facility] AYALA INFUSION 7 MEM HOS[facility] THER INC INC PROPH ADDL SEQUENTIA L TO 1 HR ECG 62740 [facility] AYALA ROUTINE 7 MEM HOSP MEM HOSP ECG INC INC W/LEAST 12 LDS TRCG ONLY W/O I&R ADMN SET A7003 YOUR YOUR SM VOL 7 PHARMACY PHARMACY NONFILTR LLC LLC PNEUMAT NEBULIZR DISPBL ALBUTEROL J7620 YOUR YOUR TO 2.5 7 PHARMACY PHARMACY [employer] IPRATROPI UM BROM TO 0.5 MG O2 CONC [address] E[address] [facility] 7 HOME HOME 85%/>02 MEDICAL MEDICAL CONC AT EQUIPME EQUIPME [facility] FLW RATE O2 CONC 1 E1390 [facility] [place] 7 HOME HOME 85%/>02 MEDICAL MEDICAL CONC AT EQUIPME EQUIPME PRS FLW RATE SBSQ 10301 [facility] 7 MEDICAL CARE/DAY SERV 25 FOUNDATIO MINUTES N RADIOLOGI 76550 [facility] C EXAM 7 MEDICAL MEDICAL CHEST 2 IMAGING IMAGING VIEWS ASS ASS FRONTAL&L ATERAL O2 CONC 1 E1390 [facility] 7 HOME HOME 85%/>02 MEDICAL MEDICAL CONC AT EQUIPME EQUIPME PRS FLW RATE O2 CONC 1 E1390 [facility] [place] 6 HOME HOME 85%/>02 MEDICAL MEDICAL CONC AT EQUIPME EQUIPME [facility] FLW RATE O2 CONC [address] E[address] [facility] 6 HOME HOME 85%/>02 MEDICAL MEDICAL CONC AT EQUIPME EQUIPME [facility] FLW RATE ALBUTEROL J7620 YOUR YOUR TO 2.5 6 PHARMACY PHARMACY [employer] IPRATROPI UM BROM TO 0.5 MG PHRM Q0513 YOUR YOUR DISPENSIN 6 PHARMACY PHARMACY G FEE [employer] INHALATIO N RX; PER 30 DAYS ADMN SET A7003 YOUR YOUR SM VOL 6 PHARMACY PHARMACY NONFILTR [employer] PNEUMAT NEBULIZR DISPBL O2 CONC 1 E1390 [facility] VARMA 6 HOME HOME 85%/>02 MEDICAL MEDICAL CONC AT EQUIPME EQUIPME [facility] FLW RATE HOSPITAL G0463 [facility] AYAL[facility] OUTPATIEN 6 MEM HOSP MEM HOS[facility] T CLIN INC INC VISIT ASSESS & MGMT PT O2 CONC 1 E1390 [facility] [place] 6 HOME HOME 85%/>02 MEDICAL MEDICAL CONC AT EQUIPME EQUIPME [facility] FLW RATE BLOOD 31256 L[facility] A[facility]AL[facility] COUNT 6 MEM HOS[facility] COMPLETE INC INC AUTO&[place] [address] L[facility] AYALA ABDOMEN 6 MEM HOSP [facility]OS[facility] W/CONTRAS INC INC T MATERIAL COMPREHEN 96378 [facility] SIVE 6 [facility] HOS[facility] METABOLIC INC INC PANEL COLLECTIO 55003 [facility] Voss VENOUS 6 [facility] H[facility] BLOOD INC INC VENIPUNCT URE LOCM Q9967 LUCY AYALA [phone] [facility] MG/ML INC INC IODINE CONCENTRA TION PER ML ANES 43765 EDOUARD WATTERS UPPER GI 6 ANESTH PALMA ENDOSCOPY OF THE PROXIMAL BLUE TO DUODENUM O2 CONC 1 E1390 [facility] LEVY [place] 6 HOME HOME 85%/>02 MEDICAL MEDICAL CONC AT [facility] FLW RATE O2 CONC 1 E1390 [facility] [place] 6 HOME MAR 85%/>02 MEDICAL CONC AT [facility] FLW RATE RADEX 91716 JOSE LHARPER FONTANEZ ALL UPPER GI 6 MEDICAL W/WO IMAGING GLUCAGON/ ASS DELAY IMGES W/O KUB RADEX 72571 [facility] AYALA UPPER GI 6 MEM HOSP [facility]OS[facility] W/WO INC INC GLUCAGON/ DELAY IMAGES W/KUB COLLECTIO 85833 [facility]AL[facility] N VENOUS 6 [facility] H[facility] BLOOD INC INC VENIPUNCT URE FLOW 25475 LUCY AYALA CYTOMETRY 6 [facility] HOSP CELL INC INC SURF MARKER TECHL ONLY EA FLOW 41202 MOLECULAR MOLECULAR CYTOMETRY 6 INTERP PATHOLOGY PATHOLOGY 2-8 LAB NETW LAB NETW MARKERS FLOW 41298 [facility] AYALA CYTOMETRY 6 [facility] H[facility] CELL INC INC SURF MARKER TECHL ONLY 1ST NEBULIZER E0570 [facility] LEVY WITH 6 HOME HOME COMPRESSO MEDICAL MEDICAL R EQUIPCO EQUIPCO O2 CONC 1 E1390 MILDRED DILLON DEL PORT 6 HOME KEY 85%/>02 MEDICAL [facility] FLW RATE SEAT E0156 [facility] ATTACHMEN 6 T WALKER WALKER E0143 [facility] FOLDING 6 WHEELED ADJUSTABL E/FIXED HEIGHT ECG 63687 [place] [facility] ROUTINE 6 MEDICAL ECG SERV W/LEAST FOUNDATIO 12 LDS N I&R ONLY ECG 05949 [place] PELAEZ ROUTINE 6 MEDICAL NAN ECG SERV W/LEAST FOUNDATIO 12 LDS N I&R ONLY RADIOLOGI 73877 [place] JAMES CON C 6 MEDICAL EXAMINATI SERV ON CHEST FOUNDATIO SINGLE N VIEW FRONTAL SBSQ 95483 [facility] 6 MEDICAL KEYANA CARE/DAY SERV 25 FOUNDATIO MINUTES N SBSQ 06439 [facility] 6 MEDICAL KEYANA CARE/DAY SERV 15 FOUNDATIO MINUTES N RADIOLOGI 16202 [place] JONAHGUR[facility]SK C 6 MEDICAL AYA MAR EXAMINATI SERV ON CHEST FOUNDATIO SINGLE N VIEW FRONTAL RADIOLOGI 07943 [place] [facility] 6 MEDICAL EXAMINATI SERV ON CHEST FOUNDATIO SINGLE N VIEW FRONTAL SBSQ 45404 [facility] 6 MEDICAL KEYANA CARE/DAY SERV 15 FOUNDATIO MINUTES N SBSQ 21493 [facility] 6 MEDICAL CARE/DAY SERV 25 FOUNDATIO MINUTES N RADIOLOGI 66211 [place] [facility] 6 MEDICAL EXAMINATI SERV ON CHEST FOUNDATIO SINGLE N VIEW FRONTAL RADIOLOGI 17004 [facility] C 6 MEDICAL EXAMINATI SERV ON CHEST FOUNDATIO SINGLE N VIEW FRONTAL ECG 19299 [facility] ROUTINE 6 MEDICAL ECG SERV W/LEAST FOUNDATIO 12 LDS N I&R ONLY SBSQ 93516 [facility] 6 MEDICAL CARE/DAY SERV 25 FOUNDATIO MINUTES N RADEX 65098 [place] [facility]OM[facility] 1 6 MEDICAL SUSAN SERV ANTEROPOS FOUNDATIO TERIOR N VIEW RADEX 18094 [facility]OM[facility] 1 6 Y OF CAR [place] [facility] TERIOR VIEW CRITICAL 39891 [facility] CARE 6 MEDICAL ILL/INJUR SERV ED FOUNDATIO PATIENT N INIT 30-74 MIN RADIOLOGI 81716 [place] [facility] CON C 6 MEDICAL EXAMINATI SERV ON CHEST FOUNDATIO SINGLE N VIEW FRONTAL ECG 56091 [facility] ROUTINE 6 MEDICAL ECG SERV W/LEAST FOUNDATIO 12 LDS N I&[place] [address] [place] [facility] ABDOMEN & 6 MEDICAL PELVIS SERV W/CONTRAS FOUNDATIO T N MATERIAL [facility] THORAX 82978 [place] [facility] CON 6 MEDICAL W/CONTRAS SERV T FOUNDATIO MATERIAL N RADIOLOGI 54782 [place] [facility] C 6 MEDICAL AYA MAR EXAMINATI SERV ON CHEST FOUNDATIO SINGLE N VIEW FRONTAL SBSQ 22657 [place] [facility] 6 MEDICAL CARE/DAY SERV 25 FOUNDATIO MINUTES N RADEX 57650 [facility] ABDOMEN 1 6 Y OF CAR [place] [facility] HOSPI TERIOR VIEW SBSQ 86239 [facility] 6 MEDICAL AND CARE/DAY SERV 25 FOUNDATIO MINUTES N INITIAL 68206 [facility] 6 MEDICAL SUN [place] CARE/DAY SERV 30 FOUNDATIO MINUTES N RADIOLOGI 51412 [place] [facility] CON C 6 MEDICAL EXAMINATI SERV ON CHEST FOUNDATIO SINGLE N VIEW FRONTAL RADEX ABD 36345 [place] [facility] COMPL 6 MEDICAL JURGEN AQT ABD SERV ANNEL W/S/E/D FOUNDATIO VIEWS 1 N VIEW CH ECHO 64047 [place] [facility] 6 MEDICAL ERIKA 2D SERV W/WOM-MOD FOUNDATIO E COMPL N SPEC&COLR D ECG 55569 [place] [facility] ROUTINE 6 MEDICAL ECG SERV W/LEAST FOUNDATIO 12 LDS N I&R ONLY SBSQ 00585 [facility] 6 MEDICAL AND CARE/DAY SERV 25 FOUNDATIO MINUTES N RADIOLOGI 88372 [place] JAMES CON C 6 MEDICAL EXAMINATI SERV ON CHEST FOUNDATIO SINGLE N VIEW FRONTAL RADIOLOGI 20563 [place] JAMES CON C 6 MEDICAL EXAMINATI SERV ON CHEST FOUNDATIO SINGLE N VIEW FRONTAL ECG 30629 [place] SAGE CHI ROUTINE 6 MEDICAL ECG SERV W/LEAST FOUNDATIO 12 LDS N I&R ONLY RADIOLOGI 58049 [place] WILLIEK C 6 MEDICAL AYA MAR EXAMINATI SERV ON CHEST FOUNDATIO SINGLE N VIEW FRONTAL RADEX 79204 [facility] SH[facility] ABDOMEN 1 6 Y OF [place] [facility] TERIOR [place]IEW RADEX 18973 [place] SETH ABDOMEN 1 6 MEDICAL AYA MAR SERV ANTEROPOS FOUNDATIO TERIOR N VIEW RADIOLOGI 79861 [place] ROBBINS C 6 MEDICAL JESS EXAMINATI SERV ON CHEST FOUNDATIO SINGLE N [place]IEW FRONTAL RADIOLOGI 64563 [place] JONAHGUROVSK C 6 MEDICAL AYA MAR EXAMINATI SERV ON CHE[place] [address] [place] AYOOB AND ABDOMEN & 6 MEDICAL PELVIS SERV W/CONTRAS FOUNDATIO T N MATERIAL CT THORAX 46123 [place] ARMENDARIZ JENNA 6 MEDICAL W/CONTRAS SERV T FOUNDATIO MATERIAL N RADEX 88409 [facility] ABDOMEN 1 6 [place] [facility] TERIOR [place]IEW RADEX 21103 [facility] ABDOMEN 1 6 [place] [facility] TERIOR VIEW SBSQ 10509 [facility] 6 MEDICAL AND CARE/DAY SERV 25 FOUNDATIO MINUTES N SBSQ 38649 [place] [address] MEDICAL AND CARE/DAY SERV 25 FOUNDATIO MINUTES N RADIOLOGI 43097 [place] DELL CAR C 6 MEDICAL EXAMINATI SERV ON CHEST FOUNDATIO SINGLE N VIEW FRONTAL RADIOLOGI 44963 [place] JAMES CON C 6 MEDICAL EXAMINATI SERV ON CHEST FOUNDATIO SINGLE N VIEW FRONTAL ECG 77562 [place] PELAEZ ROUTINE 6 MEDICAL NAN ECG SERV W/LEAST FOUNDATIO 12 LDS N I&R ONLY ECG 56190 [place] HUI MIKHAIL ROUTINE 6 MEDICAL ECG SERV W/LEAST FOUNDATIO 12 [place] [address] [place] HIEU SURG 6 MEDICAL FRANCO PATHOLOGY SERV FOUNDATIO GROSS&JESS N ROSCOPIC EXAM LEVEL III 99125 [place] HIEU SURG 6 MEDICAL FRANCO PATHOLOGY SERV FOUNDATIO GROSS&JESS N ROSCOPIC EXAM SBSQ 90286 [facility] 6 MEDICAL RONNY CARE/DAY SERV 25 FOUNDATIO MINUTES N ANESTHESI 80005 [facility]ERSIT LORI BET A HERNIA 6 Y OF REPAIR [place] [facility] ABDOMEN NOS RPR 1ST 70424 [facility] INGUN 6 MEDICAL RONNY HRNA AGE SERV 6 YRS/> FOUNDATIO INCARCERA N KISHOR ARTL 53239 [facility] UNIVERS CATHJ/CAN 6 Y OF Y OF NULJ [facility] [place] [address] LUCY AYALA LIPASE 6 [facility] INC INC THER 86657 LUCY AYALA PROPH/DX 6 [facility] NJX EA INC INC SEQL IV PUSH SBST/DRUG FAC BLOOD 55134 LUCY AYALA COUNT 6 [facility] COMPLETE INC INC AUTO&[place] [address] LUCY AYALA TROPONIN 6 [facility] [address] [place] FONTANE[place] ALL ABDOMEN & 6 MEDICAL PELVIS IMAGING W/O ASS CONTRAST MATERIAL ECG 35627 LUCY AYALA ROUTINE 6 [facility] ECG INC INC W/LEAST 12 LDS TRCG ONLY W/O I&R INITIAL 60189 [facility] 6 MEDICAL CHR CARE/DAY SERV 50 FOUNDATIO MINUTES N GROUND A0425 [facility] MILE[facility] 6 AMBULANCE AMBULANCE PER SERVICE SERVICE STATUTE MILE AMBULANCE A0429 [facility] SERVICE 6 AMBULANCE AMBULANCE BLS SERVICE SERVICE EMERGENCY TRANSPORT CREATINE 81771 LUCY AYALA KINASE 6 [facility] [place] [address] LUCY AYALA AMYLASE 6 [facility] INC INC CREATINE 63065 LUCY AYALA KINASE MB 6 [facility] FRACTION INC INC ONLY INJECTION J2405 LUCY AYALA 6 [facility] ONDANSETR INC INC ON HCL PER 1 MG INJ J2543 LUCY AYALA PIPERACIL 6 [facility] YONATHAN INC INC SOD/TAZOB ACTAM SOD 1 G/0.125 G COMPREHEN 84494 LUCY AYALA SIVE 6 [facility] METABOLIC INC INC PANEL ECG 50783 LUCY BEVERLY ROUTINE 6 [facility] W/LEAST P 12 LDS I&R ONLY RADIOLOGI 69126 [place] FONT[place] ALL C 6 MEDICAL EXAMINATI IMAGING [place] [address] LUCY AYALA INFUSION 6 [facility] THERAPY/P INC INC ROPHYLAXI S /DX 1ST TO 1 HR COLLECTIO 50917 Darnell Wagner KIRILL JENNA N VENOUS 6 PILAR PLEITEZ BLOOD PSC VENIPUNCT URE BLOOD 48980 Darnell Wagner KIRILL JENNA COUNT 6 PILAR PLEITEZ COMPLETE PSC AUTO&AUTO DIFRNTL WBC NEBULIZER E0570 MILDRED MILDRED WITH 6 HOME HOME COMPRESSO MEDICAL MEDICAL R EQUIPME EQUIPME INITIAL 87446 [facility] 6 [facility]/DAY INTERNAL 70 MED MINUTES RADIOLOGI 18827 [place] FRANCESCA 6 MEDICAL EXAMINATI IMAGING ON CHEST ASS SINGLE VIEW FRONTAL ECG 78479 [facility] 6 [facility] W/LEAST P 12 LDS I&R ONLY NEBULIZER E0570 MILDRED LEVY WITH 6 HOME HOME COMPRESSO MEDICAL MEDICAL R EQUIPME EQUIPME ADMN SET A7003 YOUR YOUR SM VOL 6 PHARMACY PHARMACY NONFILTR PubNub PNEUMAT NEBULIZR DISPBL COMPREHEN 86184 LUCY AYALA SIVE 6 [facility] METABOLIC INC INC PANEL ALBUTEROL J7620 YOUR YOUR TO 2.5 6 PHARMACY PHARMACY MG & [employer] IPRATROPI UM BROM TO 0.5 MG PHRM Q0513 YOUR YOUR DISPENSIN 6 PHARMACY PHARMACY G FEE [employer] INHALATIO N RX; PER 30 DAYS RADIOLOGI 59130 [place] EST[place] Wagner 6 MEDICAL EXAMINATI IMAGING ON CHEST ASS SINGLE VIEW FRONTAL COLLECTIO 96422 LUCY AYALA N VENOUS 6 [facility] BLOOD INC INC VENIPUNCT URE RADIOLOGI 94687 LUCY Wagner EXAM 6 [facility] CHEST 2 INC INC VIEWS FRONTAL&L ATERAL BLOOD 74674 LUCY AYALA COUNT 6 [facility] MEM [...] IPRATROPI UM BROM TO 0.5 MG RADIOLOGI 70970 [facility] ALL C EXAM 5 MEDICAL CHEST 2 IMAGING VIEWS ASS FRONTAL&L ATERAL CT THORAX 62207 [facility] ALL 5 MEDICAL W/CONTRAS IMAGING T ASS MATERIAL RADIOLOGI 95048 [facility] ALL C EXAM 5 MEDICAL [...] COMPRESSO MEDICAL MEDICAL R EQUIPME EQUIPME CATARACT 81526 REMOVAL 5 JAMILAH JAMILAH INSERTION OF LENS [...] PRESSURE DEVICE CONTINUOU E0601 MILDRED BARBERRELL S 4 HOME HOME POSITIVE MEDICAL MEDICAL AIRWAY EQUIPME EQUIPME PRESSURE DEVICE FULL FACE A7030 MILDRED MILDRED MASK 4 HOME HOME USED MEDICAL MEDICAL W/POS EQUIPME EQUIPME ARWAY PRESS DEVICE EA POLYSOM 78412 NEERAJ KERN MAR 6/>YRS 4 SLEEP 4/> NEUROSCIE ADDL NCES CENT AMA ATTND POLYSOM 59887 LUCY AYALA 6/>YRS 4 [facility] SLEEP 4/> [place] [address] LUYC AYALA SURG 4 [facility] PATHOLOGY INC INC GROSS&JESS ROSCOPIC EXAM SPECIAL 55054 LUCY AYALA STAIN 4 [facility] GROUP 1 INC INC MICROORGA NISMS I&R SPCL STN 92054 LUCY AYALA 2 I&R 4 [facility] EXCPT INC INC MICROORG/ ENZYME/IM CYT IMC/IMC G0461 LUCY AYALA PER 4 [facility] SPECIMEN; INC INC 1ST SNGL/[place] [address] LUCY AYALA INFUSION 4 [facility] THERAPY INC [place] [address] LUCY AYALA INFUSION 4 [facility] THERAPY/P INC INC ROPHYLAXI S /DX 1ST TO 1 HR SPMTRY 87068 LUCY AYALA W/VC 4 [facility] EXPIRATOR INC INC Y ALFREDO W/WO MXML VOL VNTJ ECHO 22894 LUCY AYALA TTHRC R-T 4 [facility] 2D INC INC W/WOM-MOD E COMPL SPEC&COLR D CV STRS 69559 GLENN MORALES GLENN JR TST 4 DWI DWI XERS&/OR RX CONT ECG I&R ONLY MYOCARDIA 90630 TEX Parra 4 MEDICAL EMY PERFUSION IMAGING PLANAR ASS MULTIPLE STUDIES CV STRS 38695 [facility] TST 4 XERS&/OR RX CONT ECG W/O I&R MYOCARDIA 34925 LUCY AYALA L SPECT 4 [facility] MULTIPLE INC INC STUDIES RADIOLOGI 22402 TEX Wagner EXAM 4 MEDICAL EMY CHEST [...] SONE ACETATE & PHOSPHATE 3 MG RADIOLOGI 69132 LUCY AYALA C EXAM 3 [facility] [...] RENT; EQUIPME EQUIPME FLWMTR HUMIDFR&M ASK 3D 15174 [facility] RENDERING 2 MEDICAL EMY IMAGING W/INTERP& ASS POSTPROC DIFF WORK STATION CT THORAX 88818 [facility] W/O 2 MEDICAL EMY CONTRAST IMAGING MATERIAL ASS PRTBLE E0431 MILDRED MILDRED GASEOUS 2 HOME HOME O2 SYS MEDICAL MEDICAL RENT; EQUIPME EQUIPME FLWMTR HUMIDFR&M ASK TOBACCO 73220 ERIKA WHITLOCKHENS USE 2 DON DON CESSATION INTERMEDI ATE 3-10 MINUTES PRTBLE E0431 MILDRED MILDRED GASEOUS 2 HOME HOME O2 SYS MEDICAL MEDICAL RENT; EQUIPME EQUIPME FLWMTR HUMIDFR&M ASK PRTBLE E0431 MILDRED MILDRED GASEOUS 2 HOME HOME O2 SYS MEDICAL MEDICAL RENT; EQUIPME EQUIPME FLWMTR HUMIDFR&M ASK SPMTRY 90412 MARIS POLLOCK W/VC 2 JAM JAM EXPIRATOR Y ALFREDO W/WO MXML VOL VNTJ RADIOLOGI 63862 TEX MA C EXAM 2 MEDICAL EMY CHEST 2 IMAGING VIEWS ASS FRONTAL&L ATERAL PRTBLE E0431 MILDRED LEVY GASEOUS 2 HOME HOME O2 SYS MEDICAL MEDICAL RENT; EQUIPME EQUIPME FLWMTR H[place]IDFR&[place] [address] LUCY AYALA GUIDANCE 2 [facility] NEEDLE INC INC PLACEMENT THORACENT 42334 LUCY AYALA ESIS 2 [facility] PUNCTURE INC INC PLEURAL CAVITY ASPIRATIO N RADIOLOGI 40140 LUCY AYALA C EXAM 2 [facility] CHEST 2 INC INC VIEWS FRONTAL&L ATERAL CYTP 88856 PATHOLOGY PATHOLOGY SLCTV 2 & & CELL CYTOLOGY CYTOLOGY ENHANCEME LAB LAB NT INTERPJ XCPT C/V CT THORAX 93817 LUCY AYALA W/O 2 [facility] CONTRAST INC INC MATERIAL CARBOXYHE 50949 LUCY AYALA MOGLOBIN 2 [facility]OS[facility] QUANTITAT INC INC ARCENIO CELL 43694 LUCY AYALA COUNT 2 [facility] MISC BODY INC INC FLUIDS W/DIFFERE NTIAL COUNT COLLECTIO 11200 LUCY AYALA N VENOUS 2 [facility] BLOOD INC INC VENIPUNCT URE NONINVASI 81610 LUCY AYALA VE 2 [facility] EAR/PULSE INC INC OXIMETRY SINGLE DETER CUL BACT 57574 LUCY AYALA XCPT 2 [facility] URINE INC INC BLOOD/STO OL AEROBIC ISOL CULTURE 69659 LUCY AYALA BACTERIAL 2 [facility] ANY INC INC SOURCE ANAEROBIC ISO&ID CULTURE 68439 LUCY AYALA TUBERCLE/ 2 [facility] OTH INC INC ACID-FAST BACILLI ANY ISOL TISS FRED 26440 LUCY AYALA SLIDE 2 [facility] SAMPS INC INC SKN/HR/NL S FNGI/ECTO PARASIT SMR PRIM 44127 LUCY AYALA SRC 2 [facility] GRAM/GIEM INC INC SA STAIN BCT FUNGI/VAHID L CYANOCOBA 20286 LUCY BOBON BETTIE 2 [facility] VITAMIN INC INC B-12 BLOOD 30646 LUCY AYALA GASES ANY 2 [facility] INC INC COMBINATI ON PH PCO2 PO2 CO2 HCO3 GLUCOSE 68623 LUCY AYALA BODY 2 [facility] FLUID INC INC OTHER THAN BLOOD IRON 07852 LUCY AYALA BINDING 2 [facility] CAPACITY INC INC LACTATE 44499 LUCY BOBON DEHYDROGE 2 [facility] [place] [address] LUCY AYALA IRON 2 [facility] INC INC PROTEIN 59464 LUCY AYALA XCPT 2 [facility] REFRACTOM INC INC ETRY SERUM PLASMA/WH L BLD CT THORAX 84688 LUCY AYALA W/O 2 [facility] CONTRAST INC INC MATERIAL ECG 34040 RUSH BEVERLY ROUTINE 2 JENNA JENNA ECG W/LEAST 12 LDS I&R ONLY SPUTUM 48245 LUCYJOAN AYALA OBTAINING 2 [facility]OS[facility] SPEC INC INC AEROSOL INDUCED TX SPX 3D 67792 [facility] RENDERING 2 MEDICAL EMY IMAGING W/INTERP& ASS POSTPROC DIFF WORK STATION ECG 19939 LUCYJOAN AYALA ROUTINE 2 [facility]OS[facility] ECG INC INC W/LEAST 12 LDS TRCG ONLY W/O I&R PRTBLE E0431 MILDRED LEVY GASEOUS 2 HOME HOME O2 SYS MEDICAL MEDICAL RENT; EQUIPME EQUIPME FLWMTR HUMIDFR&M ASK PRTBLE E0431 MILDR[place] LEVY GASEOUS 2 HOME HOME O2 SYS MEDICAL MEDICAL RENT; EQUIPME EQUIPME FLWMTR HUMIDFR&M ASK SPMTRY 38404 LUCY AYALA W/VC 2 [facility]OS[facility] EXPIRATOR INC INC Y ALFREDO W/WO MXML VOL VNTJ PRTBLE E0431 MILDRED MILDRED GASEOUS 2 HOME HOME O2 SYS MEDICAL MEDICAL RENT; EQUIPME EQUIPME FLWMTR HUMIDFR&M ASK PRTBLE E0431 MILDRED MILDRED GASEOUS 2 HOME HOME O2 SYS MEDICAL MEDICAL RENT; EQUIPME EQUIPME FLWMTR HUMIDFR&M ASK RADIOLOGI 02888 ERIKA JAMES C EXAM 2 DON DON CHEST 2 VIEWS FRONTAL&L ATERAL CT THORAX 27700 [place] FR[place] 2 MEDICAL EMY W/CONTRAS IMAGING T ASS MATERIAL LIPID 22246 COMBINED COMBINED PANEL 2 PHYSICIAN PHYSICIAN S LA S LA COMPREHEN 90326 COMBINED COMBINED SIVE 2 PHYSICIAN PHYSICIAN METABOLIC S LA S LA PANEL BLOOD 55323 COMBINED COMBINED COUNT 2 PHYSICIAN PHYSICIAN COMPLETE S LA S LA AUTO&[place] [address] COMBINED COMBINED PROSTATE 2 PHYSICIAN PHYSICIAN SPECIFIC [...] ASK O2 CONC [address] [facility] 1 HOME HOME 85%/>02 MEDICAL MEDICAL CONC AT EQUIPME EQUIPME [facility] FLW RATE O2 CONC 1 E[address] [facility] 1 HOME HOME 85%/>02 MEDICAL MEDICAL CONC AT EQUIPME EQUIPME [facility] FLW RATE PRTBLE E0431 MILDRED LEVY GASEOUS 1 HOME HOME O2 SYS MEDICAL MEDICAL RENT; [facility] AS[facility] PRTBLE E0431 MILDRED LEVY GASEOUS 1 HOME MED HOME MED O2 SYS EQUIP. L EQUIP. L [facility]; [facility] HUMIDFR&M ASK O2 CONC [address] [facility] 1 HOME MED HOME MED 85%/>02 EQUIP. L EQUIP. L CONC AT [facility] FLW RATE O2 CONC [address] E[address] [facility] 1 HOME MED HOME MED 85%/>02 EQUIP. L EQUIP. L CONC AT [facility] FLW RATE PRTBLE E0431 MILDRED LEVY GASEOUS 1 HOME MED HOME MED O2 SYS EQUIP. L EQUIP. L RENT; [facility] HUMIDFR&M ASK PRTBLE E0431 MILDRED LEVY GASEOUS 1 HOME MED HOME MED O2 SYS EQUIP. L EQUIP. L RENT; [facility] HUMIDFR&M ASK O2 CONC [address] [facility] 1 HOME MED HOME MED 85%/>02 EQUIP. L EQUIP. L CONC AT [facility] FLW RATE O2 CONC [address] [facility] 1 HOME MED HOME MED 85%/>02 EQUIP. L EQUIP. L CONC AT [facility] FLW RATE PRTBLE E0431 MILDRED LEVY GASEOUS 1 HOME MED HOME MED O2 SYS EQUIP. L EQUIP. L RENT; [facility] HUMIDFR&M ASK PRTBLE E0431 MILDRED LEVY GASEOUS 1 HOME MED HOME MED O2 SYS EQUIP. L EQUIP. L RENT; [facility] HUMIDFR&M ASK O2 CONC [address] [facility] 1 HOME MED HOME MED 85%/>02 EQUIP. L EQUIP. L CONC AT [facility] FLW RATE O2 CONC 1 E1390 [place] 0 HOME MED HOME MED 85%/>02 EQUIP. L EQUIP. L CONC AT [facility] FLW RATE PRTBLE E0431 MILDRED MILDRED GASEOUS 0 HOME MED HOME MED O2 SYS EQUIP. L EQUIP. L RENT; FLWMTR HUMIDFR&M ASK PRTBLE E0431 MILDRED MILDRED GASEOUS 0 HOME MED HOME MED O2 SYS EQUIP. L EQUIP. L RENT; [facility] HUMIDFR&M ASK O2 CONC 1 E1390 [place] 0 HOME MED HOME MED 85%/>02 EQUIP. L EQUIP. L CONC AT [facility] FLW RATE O2 CONC 1 E1390 [place] 0 HOME MED HOME MED 85%/>02 EQUIP. L EQUIP. L CONC AT [facility] FLW RATE PRTBLE E0431 MILDRED MILDRED GASEOUS 0 HOME MED HOME MED O2 SYS EQUIP. L EQUIP. L RENT; [facility] HUMIDFR&M ASK PRTBLE E0431 MILDRED MILDRED GASEOUS 0 HOME MED HOME MED O2 SYS EQUIP. L EQUIP. L RENT; [facility] HUMIDFR&M ASK O2 CONC 1 E1390 [place] 0 HOME MED HOME MED 85%/>02 EQUIP. L EQUIP. L CONC AT [facility] FLW RATE VIRUS 89508 [facility] CENTRIFUG 0 Y Y E [facility] ID IMFLUOR STAIN EA CULTURE 30072 [facility] FUNGI 0 Y Y DEFINITIST. [facility] E ID EACH ORGANISM [facility] PRIM 10389 [facility] 0 Y Y GRAM/GIEM [facility] SA STAIN BCT FUNGI/VAHID L IAADI 15095 [facility] PNEUMOCUS 0 Y Y TIS [facility] CARINII [facility] PRIM 48269 [facility] 0 Y Y FLUORESCE [facility] NT&/AFS BCT FNGI PARASIT TISS FRED 79512 [facility] SLIDE 0 Y Y [facility] SKN/HR/NL S FNGI/ECTO PARASIT CULTURE 22008 [facility] TUBERCLE/ 0 Y Y [facility] ACID-FAST BACILLI ANY ISOL BRNCHSC 07300 [facility] W/BRNCL 0 Y Y ALVEOLAR [facility] LAVAGE CUL BACT 45644 [facility] XCPT 0 Y Y URINE [facility] BLOOD/STO OL AEROBIC ISOL INJECTION J3010 [facility] FENTANYL 0 Y Y CITRATE [facility] 0.1 MG INJECTION J2250 [facility] 0 Y Y MIDAZOLAM [facility] HCL PER 1 MG CULTURE 28041 [facility] FNGI 0 Y Y MOLD/YEAS [facility] T PRSMPTV OTH XCPT BLOOD SPECIAL 84719 [facility] STAIN 0 Y Y GROUP 1 [facility] MICROORGA NISMS I&R BRONCHOSC 83929 [facility] OPY 0 Y Y W/TRANSBR [facility] ONCHIAL LUNG BX 1 LOBE BRONCHOSC 43795 [facility] OPY 0 Y Y NEEDLE BX [facility] TRACHEA MAIN STEM&/BRO N CYTP EVAL 55629 [facility] FINE 0 Y Y NEEDLE [facility] ASPIRATE INTERP & REPORT CELL 59900 [facility] COUNT 0 Y Y MISC BODY [facility] FLUIDS W/[place] [address] [facility] SURG 0 Y Y PATHOLOGY [facility] GROSS&JESS ROSCOPIC EXAM CYTP FINE 19129 [facility] NDL 0 Y Y ASPIRATE [facility] IMMT CYTOHIST STD DX 1ST CONCENTRA 72011 [facility] TION 0 Y Y INFECTIOU [facility] S AGENTS VIRUS 90504 [facility] TISS CUL 0 Y [facility] ON CYTOPATHI C EFFECT IADNA NOS 24502 [facility] 0 Y Y AMPLIFIED [facility] PROBE TQ EACH ORGANISM RADIOLOGI 50669 [facility] C 0 Y [facility] ON CHEST [place] FRONTAL PRTBLE E0431 MILDRED MILDRED GASEOUS 0 HOME MED HOME MED O2 SYS EQUIP. L EQUIP. L RENT; [facility] HUMIDFR&M ASK O2 CONC 1 E1390 MILDRED [place] 0 HOME MED HOME MED 85%/>02 EQUIP. L EQUIP. L CONC AT [facility] FLW RATE RADEX 85529 [place] [facility] ESOPHAGUS 0 MEDICAL EMY IMAGING ASS PHLEBOTOM 40399 COMBINED COMBINED Y 0 PHYSICIAN PHYSICIAN THERAPEUT S LA S LA IC SEPARATE PROCEDURE DUP-SCAN 09303 [place] [facility] XTR VEINS 0 MEDICAL EMY COMPLETE IMAGING ASS BILATERAL STUDY BRNCDILAT 57350 LUCY LUCY RSPSE 0 [facility] SPMTRY INC INC PRE&POST- BRNCDILAT ADMN COLLECTIO 71481 LUCY LUCY N VENOUS 0 [facility] BLOOD INC INC VENIPUNCT URE PULMONARY 07937 [place] PO[place] STRESS 0 MEDICAL JAM TESTING SERV SIMPLE FOUNDATIO COMPREHEN 09796 LUCY LUCY SIVE 0 [facility] METABOLIC INC INC PANEL BLOOD 56384 LUCY LUCY COUNT 0 [facility] COMPLETE INC INC AUTO&AUTO DIFRNTL WBC COMPREHEN 05170 COMBINED COMBINED SIVE 0 PHYSICIAN PHYSICIAN METABOLIC S LAB S LAB PANEL 3D 70274 [place] NE[place] RENDERING 0 MEDICAL KEY IMAGING W/INTERP& ASS POSTPROC DIFF WORK STATION COLLECTIO 29918 COMBINED COMBINED N VENOUS 0 PHYSICIAN PHYSICIAN BLOOD S LAB S LAB VENIPUNCT URE CT THORAX 20968 [place] NELLY W/O 0 MEDICAL KEY CONTRAST IMAGING MATERIAL ASS RADIOLOGI 08124 [place] FRANCES[place] C EXAM 0 MEDICAL EMY CHEST 2 IMAGING VIEWS ASS FRONTAL&L ATERAL PRTBLE E0431 [facility] GASEOUS 0 HOME MED HOME MED O2 SYS EQUIP. EQUIP. RENT; [facility] FLWMTR HUMIDFR&M ASK O2 CONC 1 E1390 [place] DEL PORT 0 HOME MED HOME MED 85%/>02 EQUIP. EQUIP. CONC AT [facility] FLW RATE O2 CONC 1 E1390 [place] 0 HOME MED HOME MED 85%/>02 EQUIP. EQUIP. CONC AT [facility] FLW RATE INJECTION J1940 ERIKA JAMES, 0 DON R DON R FUROSEMID E UP TO 20 MG PRTBLE E0431 [place] GASEOUS 0 HOME MED HOME MED O2 SYS EQUIP. EQUIP. RENT; [facility] FLWMTR HUMIDFR&M ASK ECG 19712 ERIKA JAMES, ROUTINE 0 DON R DON R ECG W/LEAST 12 LDS W/I&R RADIOLOGI 06825 ERIKA JAMES C EXAM 0 DON R DON R CHEST 2 VIEWS FRONTAL&L ATERAL RADIOLOGI 24636 ERIKA JAMES C 0 DON R DON R EXAMINATI ON CHEST [facility] 01662 ERIKA JAMES, DISCHARGE 0 DON R DON R DAY MANAGEMEN T 30 MIN/< RADIOLOGI 04682 Kristy VALENTIN EXAM 0 MEDICAL JANE P CHEST 2 IMAGING VIEWS ASSOCIATE FRONTAL&L S ATERAL SBSQ 48373 [facility] 0 DON R DON R CARE/DAY 25 MINUTES SBSQ 28541 [facility] 0 DON R DON R CARE/DAY 25 MINUTES SBSQ 57022 [facility] 0 DON R DON R CARE/DAY 25 MINUTES SBSQ 55992 [facility] 0 DON R DON R CARE/DAY 25 MINUTES 3D 59924 [place], RENDERING 0 MEDICAL SHASHI IMAGING W/INTERP& ASSOCIATE POSTPROC S DIFF WORK STATION CT THORAX 31240 [place] [facility], 0 MEDICAL SHASHI W/CONTRAS IMAGING T ASSOCIATE MATERIAL S SBSQ 84756 [facility] 0 DON R DON R CARE/DAY 25 MINUTES RADIOLOGI 26323 ERIKA JAMES C 0 DON R DON R EXAMINATI ON [facility] 20166 Kristy OROSCO EXAM 0 MEDICAL SHASHI CHEST 2 IMAGING VIEWS ASSOCIATE FRONTAL&L S ATERAL [facility]ITIAL 64373 [facility]DAY 50 MINUTES OPHTH 87783 [facility] 9 DONTE A DONTE A XM&EVAL COMPRHNSV ESTAB PT 1/> OPHTH 16229 [facility] NINI, [facility] 9 VITREOUS CALLIE W XM&EVAL ASSOCIATE INTERMEDI S O ATE ESTAB PT SCANNING 96806 [facility] N[facility]I, [facility] 9 VITREOUS CALLIE W C IMAGING ASSOCIATE S O POSTERIOR SGM UNI INJECTION J1040 ERIKA JAMES, 8 DON R DON R METHYLPRE DNISOLONE ACETATE 80 MG SCANNING 57881 [facility]I, [facility] 8 VITREOUS CALLIE W C IMAGING ASSOCIATE S O POSTERIOR SGM UNI OPHTH 00395 [facility], MEDICAL 8 VITREOUS CALLIE W XM&EVAL ASSOCIATE INTERMEDI S O ATE ESTAB PT INJECTION J1040 ERIKA JAMES 8 DON R DON R METHYLPRE DNISOLONE ACETATE 80 MG OPHTH 26069 [facility] 8 DONTE A DONTE A XM&EVAL COMPRHNSV ESTAB PT 1/> OPHTH 48034 [facility] & [facility], [facility] 8 VITREOUS CALLIE W XM&EVAL ASSOCIATE INTERMEDI S O ATE ESTAB PT SCANNING 18080 [facility] N[facility]I, [facility] 8 VITREOUS CALLIE W C IMAGING ASSOCIATE S O POSTERIOR SGM UNI INJECTION J1040 ERIKA JAMES 8 DON R DON R METHYLPRE DNISOLONE ACETATE 80 MG RADIOLOGI 78108 ERIKA JAMES C EXAM 8 DON R DON R CHEST 2 VIEWS FRONTAL&L ATERAL OPHTH 43292 [facility] & MEDICAL 8 VITREOUS VITREOUS XM&EVAL ASSOCIATE ASSOCIATE INTERMEDI S O S O ATE ESTAB PT SCANNING 23663 [facility] & [facility] 8 VITREOUS VITREOUS C IMAGING ASSOCIATE ASSOCIATE S O S O POSTERIOR SGM UNI SCANNING 74539 [facility] & [facility] 8 VITREOUS VITREOUS C IMAGING ASSOCIATE ASSOCIATE S O S O POSTERIOR SGM UNI OPHTH 91566 [facility] & MEDICAL 8 VITREOUS VITREOUS XM&EVAL ASSOCIATE ASSOCIATE INTERMEDI S O S O ATE ESTAB PT INJECTION J1100 ERIKA JAMES, 8 DON R DON R DEXAMETHO SONE SODIUM PHOSPHATE 1 MG Encounters Encounter Start End Date Code Location Performer Type Date OFFICE 12323 [facility] OUTPATIEN 7 7 PHYSICIAN T VISIT S GROUP 40 MINUTES [facility] - 7 7 [facility] [id number] [facility] OUTPAT[facility] 7 7 PHYSICIAN T VISIT S GROUP 25 MINUTES OFFICE 20791 [facility] OUTPAT[facility] 7 7 PHYSICIAN T [facility]ISIT S GROUP 40 MINUTES [facility]OSP[facility] - 7 7 [facility] T OFFICE 77215 [facility] 7 7 [facility] T VISIT PSC 15 MINUTES OFFICE 37564 [facility] [facility] OUTPATIEN 7 7 Y OF CK T VISIT [place] 25 HOSPI MINUTES OFFICE 14130 A C [place] OUTPATIEN 7 7 PILAR PLEITEZ T VISIT PSC 15 MINUTES OFFICE 14310 A C [facility] OUTPATIEN 7 7 [facility] [place] T VISIT PSC 15 MINUTES [facility] LUC[facility] - 7 7 [facility] OFFICE 95161 A C [place] OUTPATIEN 7 7 P[place]AR [place] T VISIT PSC 15 MINUTES OFFICE 80542 A C [facility] OUTPATIEN 7 7 P[place] T VISIT PSC 15 MINUTES OFFICE 49428 ELIO POLLOCK OUTPATIEN 6 6 MEDICAL JAM T VISIT [facility] [address] [facility] LUCY - 6 6 [facility] T OFFICE 75649 [facility] OUT[facility] 6 6 PHYSICIAN RITA T VISIT S GROUP 10 MINUTES [facility]OSP[facility] LUCY - 6 6 [facility] OUT[facility] INC T OFFICE 31509 [facility]UCY EVAN OUTPATIEN 6 6 [facility] VISIT HOSPITAL 10 P MINUTES OFFICE 49277 A Kristy ROY OUTPATIEN 6 6 PILAR [place]LE[place] T VISIT PSC 15 MINUTES OFFICE 33136 ELIO POLLOCK OUTPATIEN 6 6 MEDICAL JAM T VISIT SERV 15 FOUNDATIO MINUTES N OFFICE 17377 [facility] 6 6 PHYSICIAN RITA T VISIT S GROUP 15 MINUTES OFFICE 46529 [facility] EVAN OUTPATIEN 6 6 [facility] HOSPITAL MINUTES [facility] LUCY - 6 6 [facility] OUTPATI[facility] INC T OFFICE 70323 [facility] OUT[facility] 6 6 PHYSICIAN RITA T NEW 45 S GROUP MINUTES OFFICE 89040 [place] PO[place] OUTPATIEN 6 6 MEDICAL JAM T VISIT SERV 25 FOUNDATIO MINUTES [facility]OSPITAL LUCY - 6 6 [facility] OUTPATIEN INC T OFFICE 06794 A Kristy ROY OUTPATIEN 6 6 PILAR PLEITE[place] T VISIT PSC 15 MINUTES OFFICE 66737 ELIO POLLOCK OUTPATIEN 6 6 MEDICAL JAM T VISIT SERV 25 FOUNDATIO MINUTES [facility]OSPITAL LUCY - 6 6 [facility] OUTPATIEN INC T EMERGENCY 19485 FATUMA WATTERS DEPT 6 6 Y OF MADALYN VISIT [facility] HOS[facility] SEVERITY& THREAT FUN OFFICE 38801 A Kristy WEST OUTPATIRYLEE 6 6 PILAR [place] T VISIT PSC 15 MINUTES OFFICE 10386 A C [facility] JENNA OUTPATIEN 6 6 P[place]AR [place] T VISIT PSC 15 MINUTES OFFICE 81483 ELIO POLLOCK OUTPATIEN 6 6 MEDICAL JAM T VISIT SERV [address] [facility] LUCY - 6 6 [facility]IENT [facility] LUCY - 6 6 [facility] OUTPATIEN [facility] OFFICE 61234 [place] POLLOCK OUTPATIEN 6 6 MEDICAL T VISIT SERV 25 FOUNDATIO MINUTES OFFICE 45600 ELIO DODSONPOLLOCK OUTPATIEN 6 6 MEDICAL JAM T VISIT SERV [address] [facility] LUCY - 5 5 [facility] 5 5 [facility] - 5 5 [facility] OFFICE 29269 A C FIELD AMB OUTPATIEN 5 5 PILAR PLEITEZ T VISIT PSC 15 MINUTES OFFICE 77427 A C FIELD AMB OUTPATIEN 4 4 [...] 4 4 [facility] OUTPAT[facility]EN [facility] OFFICE 68340 FIELD AMB FIELD AMB OUTPATIEN 4 4 T VISIT 15 MINUTES OFFICE 98210 FIELD AMB FIELD AMB OUTPATIEN 3 3 T VISIT 15 MINUTES OFFICE 88332 A C FIELD AMB OUTPATIEN 3 3 PILAR PLEITEZ T NEW 30 PSC MINUTES OFFICE 04329 ERIKA MELENDREZS OUTPATIEN 3 3 DON DON T VISIT 15 MINUTES OFFICE 62621 JAMES JAMES OUTPATIEN 3 3 DON DON T VISIT 15 MINUTES [facility]OSP[facility] LUCY - 3 3 [facility] LUC[facility] - 2 2 [facility] OUT[facility]EN [facility] OFFICE 75009 ERIKA WHITLOCKHENS OUTPATIEN 2 2 DON DON T VISIT 15 MINUTES [facility]OSPITAL LUCY - 2 2 [facility] 2 [facility] OFFICE 45265 ERIKA MELENDREZS OUTPATIEN 2 2 DON DON T VISIT 15 MINUTES OFFICE 92780 JAMES JAMES OUTPATIEN 1 1 DON DON T VISIT 15 MINUTES OFFICE 70164 JAMES JAMES OUTPATIEN 1 1 DON DON T VISIT 15 MINUTES OFFICE 60173 JAMES JAMES OUTPATIEN 1 1 DON DON T VISIT 15 MINUTES OFFICE 13631 JAMES JAMES OUTPATIEN 1 1 DON DON T VISIT 15 MINUTES HOSPITAL UNIVERS[facility] - 0 0 [facility] LUC[facility] - 0 0 [facility] LUCY - 0 0 [facility]PATI[facility] INC T OFFICE 22416 ERIKA JAMES OUTPATIRYLEE 0 0 DON R DON R T VISIT 15 MINUTES OFFICE 18214 ERIKA JAMES OUTPATIEN 0 0 DON R DON R T VISIT 25 MINUTES OFFICE 85894 ERIKA JAMES OUTPATIEN 0 0 DON R DON R T VISIT 15 MINUTES OFFICE 55138 ERIKA JAMES OUTPATIEN 8 8 DON R DON R T VISIT 15 MINUTES OFFICE 41868 ERIKA JAMES OUTPATIRYLEE 8 8 DON R DON R T VISIT 15 MINUTES OFFICE 70353 ERIKA JAMES OUTPATIEN 8 8 DON R DON R T VISIT 15 MINUTES OFFICE 91200 ERIKA JAMES OUTPATIRYLEE 8 8 DON R DON R T VISIT 15 MINUTES OFFICE 38567 ERIKA JAMES OUTPATIEN 8 8 DON R DON R T VISIT 15 MINUTES
--- OUTSIDE RECORDS SUMMARY | 2017-02-15 19:46 | External Medical Summary Rpt | CCD ---
Author Author , RANDALL Dial RANDALL Address Unknown Phone [email or web address] | [facility] Care Team Providers Care Benefit Authorizer Name Role Phone A Kristy QUEZADA MD [...] Unavailable [facility] Unavailable Unavailable SERVICE, [facility] Unavailable Unavailable SERVICE, [facility] Unavailable Unavailable [place], [...] TAYLOR KEYANA, TAYLOR Unavailable Unavailable KEYANA [facility] Unavailable Unavailable INC, [facility] Unavailable Unavailable HOSPITAL P, [facility] P DONTE RUIZ, Unavailable Unavailable DONTE RUIZ A [facility], Unavailable Unavailable [facility] ARMENDARIZ JENNA, ARMENDARIZ JENNA Unavailable Unavailable HUI MIKHAIL, HUI MIKHAIL Unavailable Unavailable BECKY MAR, BECKY Unavailable Unavailable [facility], [facility] NINI, CALLIE W, Unavailable Unavailable CALLIE TERRAZAS W [facility] Un[facility] Unavailable [facility] GLENN JR, GLENN JR Unavailable Unavailable GLENN JR DWI, GLENN Unavailable Unavailable JR DWI [facility] Unavailable Unavailable INTERNAL MED, [facility] JAMES CON, JAMES [...] PHARM #[id number] [facility] Unavailable Unavailable [id number] # [id number], [facility] [id number] # [id number] SHANELL, SHANELL Unavailable Unavailable SHANELL [...] Unavailable MADALYN OTTO SUSAN, OTTO Unavailable Unavailable [facility], Unavailable [facility]available [facility] H[facility]U GAMEZ, HIEU Unavailable Unavailable [facility], Unavailable [facility]available [facility], Unavailable [facility]available [facility] MARINA NIXON, Unavailable Unavailable MARINA NIXON Purpose Continuity of Care Document - 04-25-2007 through 2016 Problems Code Diagnosis DOS Provider Status 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 12-28-2016 [facility] J349 UNSPECIFIED 12-06-2016 [place] [facility] OF NOSE AND IMAGING ASS NASAL SINUSES R531 WEAKNESS 12-06-2016 [facility] I4891 UNSPECIFIED 12-05-2016 [place] ATRIAL [facility] P N I495 SICK SINUS 12-05-2016 [place] SYNDROME [facility] P J42 UNSPECIFIED 12-05-2016 [place] CHRONIC [facility] BRONCHITIS [facility] P R0600 DYSPNEA 12-05-2016 [place] UNSPECIFIED [facility] IM[facility]ING ASS 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-2016 [facility] 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 Z950 PRESENCE OF 11-26-2016 [facility] CARDIAC PHYSICIANS PACEMAKER GROUP E785 HYPERLIPIDE 11-15-2016 [facility] UNSPECIFIED GROUP I10 ESSENTIAL 11-15-2016 [facility] HYPERTENSIO [facility] P N I119 HYPERTENSIV 11-15-2016 [facility] E HEART PHYSICIANS DISEASE GROUP WITHOUT HEART FAILURE I2510 [facility]D [place] DEE-NI' 11-15-2016 [facility] CORONARY PHYSICIANS ARTERY W/O GROUP ANGINA PECTORIS 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 R079 CHEST PAIN 11-02-2016 [place] UNSPECIFIED [facility]ICAL IMAGING ASS I4519 OTHER RIGHT 10-31-2016 [facility], [facility]DLE[facility]AN PLLC CH BLOCK J189 PNEUMONIA 10-31-2016 [facility] UNSPECIFIED PHYSICIANS, ORGANISM PLLC D02060 PERSONAL 10-31-2016 [facility] HISTORY OF PHYSICIANS, NICOTINE PLLC DEPENDENCE 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 10-24-2016 [facility] P I509 HEART 10-24-2016 [facility] UNSPECIFIED HOSPITAL P J441 CHRONIC 10-24-2016 [facility] P DZ W/EXACERBAT ION Z4509 ENCOUNTER 10-24-2016 [facility]NAGEMENT INC OT CARDIAC DEVICE R918 OTHER 09-14-2016 [place] NONSPECIFIC MEDICAL ABNORMAL IMAGING ASS FINDING OF LUNG FIELD J410 SIMPLE 09-04-2016 A Kristy QUEZADA CHRONIC PSC BRONCHITIS R938 ABNORMAL 09-04-2016 [facility] FIND ON DX PHYSICIANS IMAGING OT GROUP SPEC BODY STRCT I200 UNSTABLE 08-27-2016 [facility] ANGINA PHYSICIANS GROUP [id number] ASHD [place] DEE-NI' 08-25-2016 [facility] P ANGINA PECTORIS I272 OTHER 08-25-2016 [facility] P HYPERTENSIO N I480 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 [facility] FIBRILLATIO INC N 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 [facility] OF [...] PSC CONGESTIVE HEART FAILURE C9110 CHRONIC 01-11-2016 [facility] 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 R634 ABNORMAL 01-11-2016 [facility] WEIGHT LOSS [facility] INC R1110 VOMITING 01-09-2016 [facility] UNSPECIFIED PHYSICIANS GROUP K828 OTHER 01-02-2016 [place] SPECIFIED MEDICAL DISEASES OF IMAGING ASS GALLBLADDER R630 ANOREXIA 01-02-2016 [facility] K921 MELENA 11-07-2015 [facility] K5710 DIVERTICULO 11-03-2015 [place] SIS SM MEDICAL INTEST W/O IMAGING ASS PERF/ABSC W/O BLEED R195 OTHER FECAL 11-03-2015 [place] [facility] ABNORMALITI IMAGING ASS ES W65839 LYMPHOCYTOS 10-26-2015 [facility] IS PATHOLOGY SYMPTOMATIC LAB NETW J690 PNEUMONITIS 10-26-2015 [facility] DUE TO SERV INHALATION FOUNDATION OF FOOD AND VOMIT Z09 ENC F/U 10-20-2015 A C QUEZADA EXAM AFTR PSC CMPL TX OTH THAN ETIENNE NEOPLSM B370 CANDIDAL 10-19-2015 [facility] STOMATITIS SERV FOUNDATION R112 NAUSEA WITH 10-19-2015 [facility] VOMITING SERV UNSPECIFIED FOUNDATION R9431 ABNORMAL 09-18-2015 [facility] ELECTROCARD SERV IOGRAM FOUNDATION I4510 UNSPECIFIED 09-15-2015 [facility] RIGHT SERV BUNDLE-BRAN FOUNDATION CH BLOCK R001 BRADYCARDIA 09-15-2015 [facility] UNSPEC[facility]IED [facility] B965 PSEUDOMONAS 09-14-2015 [place] [facility] CAUSE OF SERV DZ [facility] CLASSIFIED ELSEWHERE J9600 ACUTE 09-14-2015 [facility] RESPIRATORY SERV FAIL UNS FOUNDATION HYPOXIA/HYP ERCAPNIA J9811 ATELECTASIS 09-14-2015 [facility] Z25098 ENCOUNTER 09-14-2015 [facility] SURG SERV AFTERCARE FOUNDATION FLW SURG DIGESTIVE SYS Z049 ENCOUNTER 09-13-2015 [facility] EXAMINATION SERV &OBSERVATIO FOUNDATION N FOR UNS REASON K5900 CONSTIPATIO 09-12-2015 [facility] N SERV UNSPECIFIED FOUNDATION R140 ABDOMINAL 09-10-2015 [place] [facility] DISTENSION SERV GASEOUS [facility] R0989 OTH SPEC SX 09-09-2015 [facility] & SIGNS SERV INVLV THE FOUNDATION CIRC & RESP SYS A419 SEPSIS 09-08-2015 [facility] UNSPECIFIED SERV ORGANISM FOUNDATION E873 ALKALOSIS 09-08-2015 [facility] E876 HYPOKALEMIA 09-08-2015 [facility] J90 PLEURAL 09-08-2015 [place] [facility] EFFUSION SERV NOT FOUNDATION ELSEWHERE CLASSIFIED J9620 ACUTE 09-08-2015 [facility] CHRONIC SERV RESP FAIL FOUNDATION UNS HYPOXIA/HYP ERCAPNIA J984 OTHER 09-08-2015 [facility] DISORDERS SERV OF LUNG FOUNDATION R109 UNSPECIFIED 09-08-2015 [facility] ABDOMINAL SERV PAIN FOUNDATION Z4682 ENCOUNTER 09-08-2015 [facility] NON-VASCULA R CATHETER 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-07-2015 [facility] DISORDER SERV UNSPECIFIED FOUNDATION I517 CARDIOMEGAL 09-07-2015 [place] [facility] Y SERV [facility] I5189 OTHER 09-07-2015 [facility] ILL-DEFINED SERV HEART FOUNDATION DISEASES R0902 HYPOXEMIA 09-06-2015 [facility] R0689 OTHER 09-02-2015 [facility] ABNORMALITI SERV ES OF FOUNDATION BREATHING J942 HEMOTHORAX 08-30-2015 [facility] J948 OTHER 08-30-2015 [place] [facility] SPECIFIED SERV PLEURAL FOUNDATION CONDITIONS L538 OTHER 08-30-2015 [facility] SPECIFIED SERV ERYTHEMATOU FOUNDATION S CONDITIONS Z9889 OTHER 08-30-2015 [facility] SPECIFIED SERV POSTPROCEDU FOUNDATION RAL STATES 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 K4030 UNILAT 08-25-2015 [place] INGUINAL [facility] NGUYEN W/OBST HOSPI W/O GANGRN NOT RECUR K4040 UNILAT 08-25-2015 [facility] INGUINAL SERV NGUYEN FOUNDATION W/GANGREN NOT SPEC RECUR L45400 ELEVATED 08-24-2015 [facility] P UNSPECIFIED K4090 UNILAT 08-24-2015 [facility] INGUINAL SERV NGUYEN W/O FOUNDATION OBST/GANGRE N NOT RECUR K5660 UNSPECIFIED 08-24-2015 [facility] AMBULANCE SERVICE OBSTRUCTION R1031 RIGHT LOWER 08-24-2015 [facility] PAIN HOSPI J439 EMPHYSEMA 08-03-2015 [place] UNSPECIFIED [place] INTERNAL MED J929 PLEURAL 08-03-2015 [place] [facility] MEDICAL WITHOUT IMAGING ASS ASBESTOS R002 PALPITATION 08-03-2015 [facility] S SERV FOUNDATION R031 NONSPECIFIC 08-03-2015 [facility] LOW SERV BLOOD-PRESS FOUNDATION URE READING R42 DIZZINESS 08-03-2015 [facility] AND SERV GIDDINESS FOUNDATION Z7722 CONTACT W/ 07-13-2015 [facility] & SUSPECTED SERV EXPOS FOUNDATION ENVIR TOBACCO SMOKE J40 BRONCHITIS 03-25-2015 [place] NOT MEDICAL SPECIFIED IMAGING ASS ACUTE OR CHRONIC R091 PLEURISY 01-21-2015 [place] [facility] 4280 CONGESTIVE 01-14-2015 [facility] HE[facility] HOME FAILURE MEDICAL UNSPECIFIED EQUIPME 87301 OBSTRUCTIVE 01-14-2015 [facility] WITHOUT EXACERBAT 496 CHRONIC 01-14-[address] [facility] HOME OBSTRUCTION MEDICAL NEC EQUIPME 72149 NUCLEAR 12-28-2014 [place] SCLEROSIS JAMILAH 78008 OBST 09-06-2014 A Kristy QUEZADA CHRONIC PSC BRONCHITIS W/ACUTE BRONCHITIS 18873 LOSS OF 09-06-2014 A Kristy QUEZADA WEIGHT PSC 02131 OTHER CHEST 09-06-2014 A Kristy TREVINO MD PSC 05735 OBSTRUCTIVE 09-05-2014 [facility] SLEEP HOME APNEA MEDICAL EQUIPME 7242 LUMBAGO 04-01-2014 A Kristy QUEZADA MD PSC V0382 NEED PROPH 04-01-2014 A Kristy QUEZADA VACCINATION PSC AGAINST STREP PNEUMONE 36410 ATRIAL 01-13-2014 [facility] FIBRILLATIO [facility] N INC 37734 REFLUX 01-13-2014 [facility] ESOPHAGITIS [facility] INC 60858 UNS 01-13-2014 [facility] GASTRITIS&G [facility] ASTRODUODIT INC IS W/O MENTION HEMORR 49796 ABDOMINAL 01-13-2014 [facility] PAIN, [facility] GENERALIZED INC V5869 LONG-TERM 01-13-2014 [facility] (CURRENT) [facility] USE OF INC OTHER MEDICATIONS 62171 CHEST PAIN 11-24-2013 [facility] UNSPECIFIED [facility] INC 5110 PLEURISY 10-29-2013 [place] WITHOUT MEDICAL MENTION IMAGING ASS EFFUS/CURRE NT TB 7862 COUGH 10-29-2013 [place] [facility] 61017 INSOMNIA 12-16-2012 A Kristy BANSAL MD PSC 68684 OTHER 12-16-2012 A Kristy QUEZADA MALAISE AND PSC FATIGUE 67533 FEVER 05-23-2012 [facility] UNSPECIFIED DON 70256 WHEEZING 05-23-2012 J[facility] DON 1120 CANDIDIASIS 05-21-2012 [facility] OF MOUTH DON 29099 OTHER 05-21-2012 [facility] DISEASES OF EMY LUNG NOT ELSEWHERE CLASSIFIED 4940 BRONCHIECTA 01-28-2012 [place] SIS WITHOUT MEDICAL ACUTE IMAGING ASS EXACERBATIO N 5119 UNSPECIFIED 01-28-2012 [place] PLEURAL MEDICAL EFFUSION IMAGING ASS 40484 OTHER 01-28-2012 [facility] NONSPECIFIC [facility] ABNORMAL INC FINDING OF LUNG FIELD 76634 OSTEOARTHRO 01-02-2012 JAMES S INVLV MX DON SITES BUT [place] SPEC GEN 25300 OBSTRUCTIVE 11-12-2011 [facility] CHRONIC [facility] BRONCHITIS INC WITH EXACERBATIO N 93214 ESOPHAGEAL 11-12-2011 [facility] REFLUX [facility] INC 2859 UNSPECIFIED 10-05-2011 [facility] ANEMIA [facility] INC 5180 PULMONARY 10-05-2011 [place] COLLAPSE MEDICAL IMAGING ASS 486 PNEUMONIA, 09-28-2011 [place] ORGANISM MEDICAL UNSPECIFIED IMAGING ASS 5070 PNEUMONITIS 09-28-2011 [place] DUE TO JAM INHALATION OF FOOD OR VOMITUS 12757 SHORTNESS 09-28-2011 [facility] OF BREATH [facility] INC 37241 ABDOMINAL 09-28-2011 [facility] PAIN, MEM [facility] EPIGASTRIC INC V1261 PERSONAL 09-28-2011 [place] HISTORY JAM PNEUMONIA RECURRENT 00101 PNEUMONIA 06-08-2011 [facility] DUE TO DON OTHER SPECIFIED BACTERIA 2724 OTHER AND 05-11-2011 [facility] UNSPECIFIED PHYSICIANS [place] HYPERLIPIDE [place] 2768 HYPOPOTASSE 05-11-2011 [facility] [place] PHYSICIANS [place] 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 6019 UNSPECIFIED 05-11-2011 [place] [address] PAIN IN 05-11-2011 COMBINED JOINT, PHYSICIANS MULTIPLE LA SITES 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 5183 PULMONARY 11-28-2009 [facility] A 11189 ACUTE 11-28-2009 [facility] RESPIRATORY SERV FAILURE FOUNDATIO 7856 ENLARGEMENT 11-28-2009 [facility] NODES 7931 NONSPEC 11-28-2009 [facility] MEDICAL FIND RAD SERV OTH EXAM FOUNDATIO BODY STRUCT LUNG FIELD V1582 PERS HX 11-28-2009 [place] TOBACCO USE [facility] PRESENTING [facility] V7282 PRE-OPERATI 11-28-2009 [facility]ICAL VE SERV RESPIRATORY FOUNDATIO EXAMINATION 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 56088 DYSPHAGIA 11-18-2009 [place] UNSPECIFIED MEDICAL IMAGING ASS 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[facility], 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 71552 OSTEOARTHRO 08-23-2009 [facility] SIS UNSPEC DON R WHETHER GEN/LOC LOWER LEG 72026 OSTEOARTHRO 08-23-2009 [facility], S UNSPEC DON R GEN/LOC OTH SPEC SITES 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 A N OF RETINA UNSPECIFIED 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 RETINA & 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-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[facility] & SENILE VITREOUS MACULAR ASSOCIATES DEGENERATIO O N OF RETINA 46653 CRYSTALLINE 07-20-2008 [facility] & DEPOSITS VITREOUS IN VITREOUS ASSOCIATES O 4610 ACUTE 02-27-2008 [facility], MAXILLARY DON R SINUSITIS 4659 ACUTE URIS 02-27-2008 [facility], OF DON R UNSPECIFIED SITE 8472 LUMBAR 11-14-2007 JAMES, SPRAIN AND DON R STRAIN 4660 ACUTE 08-02-2007 [facility], BRONCHITIS DON R 4871 INFLUENZA 07-04-2007 [facility], WITH OTHER DON R RESPIRATORY MANIFESTATI ONS 59158 PAIN IN 04-25-2007 ERIKA, JOINT, DON R SHOULDER REGION 48781 UNSPECIFIED 04-25-2007 JAMES, SYNOVITIS DON R AND [...] CY 03 93 8 # 03 93 [place] [...] YOUR SM VOL 7 PHARMACY PHARMACY NONFILTR [employer] PNEUMAT NEBULIZR DISPBL ALBUTEROL J7620 YOUR YOUR TO 2.5 7 PHARMACY PHARMACY [employer] IPRATROPI [place] [address] [place] [address] [facility] HEAD/BRAI 7 MEDICAL N W/O & IMAGING W/CONTRAS ASS T MATERIAL RADIOLOGI 34138 [facility] 7 MEDICAL EXAMINATI IMAGING ON CHEST ASS SINGLE VIEW FRONTAL ECG 15427 [facility] BEVERLY ROUTINE 7 [facility] W/LEAST P 12 LDS I&R ONLY O2 CONC 1 E1390 [facility] LEVY [facility] 7 HOME HOME 85%/>02 MEDICAL MEDICAL CONC AT [facility]WY [facility] FLW RATE INTERROGA 60193 [facility] RHIANNON TION EVAL 7 PHYSICIAN REMOTE S GROUP </90 D 1/2/SHIPPING ROOM HELPER LEAD PM RADIOLOGI 58014 [facility] EXAM 7 MEDICAL CHEST 2 IMAGING VIEWS ASS FRONTAL&L ATERAL ECG 61396 [facility] RHIANNON ROUTINE 7 PHYSICIAN ECG S GROUP W/LEAST 12 LDS I&R ONLY ECG 89522 [facility] ELIZABETH JR ROUTINE 7 [facility] W/LEAST P 12 LDS I&R ONLY RADIOLOGI [facility]94 [facility] 7 MEDICAL CHEST 2 IMAGING VIEWS ASS FRONTAL&L ATERAL ECG 58431 L[facility] KIMBLE ROUTINE 7 PHYSICIAN PHYSICIAN ECG S, PLLC S, PLLC W/LEAST 12 LDS I&R ONLY RADIOLOGI 85651 [facility] 7 MEDICAL EXAMINATI IMAGING ON CHEST ASS SINGLE VIEW FRONTAL RADIOLOGI 77767 [place] [facility] C 7 MEDICAL EXAMINATI [place]ING [place] [address] [facility] NEW/RPLCM 7 PHYSICIAN T PRM PM S GROUP W/TRANSV ELTRD ATRIAL&VE NT ECG 62123 [facility] ROUTINE 7 [facility] W/LEAST P 12 LDS I&R ONLY ECG 59243 [facility] ROUTINE 7 [facility] W/LEAST P 12 LDS I&R ONLY RADIOLOGI 16449 [facility] 7 MEDICAL EXAMINATI IMAGING ON CHEST ASS SINGLE VIEW FRONTAL ALBUTEROL J7620 YOUR YOUR TO 2.5 7 PHARMACY PHARMACY MG & [employer] IPRATROPI UM BROM TO 0.5 MG ADMN SET A7003 YOUR YOUR SM VOL 7 PHARMACY PHARMACY [employer] PNEUMAT NEBULIZR DISPBL ECG 10558 [facility] ROUTINE 7 PHYSICIAN ECG S GROUP W/LEAST 12 LDS I&R ONLY O2 CONC 1 E1390 [facility] VARMA 7 HOME HOME 85%/>02 MEDICAL MEDICAL CONC AT EQUIPME EQUIPESTES [facility] FLW RATE CT THORAX 88033 [place] [facility] 7 MEDICAL W/CONTRAS IMAGING T ASS MATERIAL ADMN SET A7003 YOUR YOUR SM VOL 7 PHARMACY PHARMACY [email or web address] [employer] PNEUMAT NEBULIZR DISPBL ALBUTEROL J7620 YOUR YOUR TO 2.5 7 PHARMACY PHARMACY MG & [employer] IPRATROPI UM BROM TO 0.5 MG ALBUTEROL J7620 A C A C TO 2.5 7 PILAR QUEZADA MD MG & PSC PSC IPRATROPI UM BROM TO 0.5 MG ECG 65149 [facility] ROUTINE 7 PHYSICIAN ECG S GROUP W/LEAST 12 LDS I&R ONLY O2 CONC 1 E1390 [facility] LUIS [facility] 7 HOME HOME 85%/>02 MEDICAL MEDICAL CONC [facility] FLW [facility]ATE NONINVASI 81404 [facility] AYALA VE 7 MEM HOSP [facility] EAR/PULSE INC INC OXIMETRY SINGLE DETER R & L HRT 26458 [facility] CATH 7 PHYSICIAN WINJX HRT S GROUP ART& L VENTR IMG HOSPITAL G0378 [facility] AYALA OBSERVATI 7 MEM HOSP [facility] ON INC INC SERVICE PER HOUR HOSPITAL G0378 L[facility] AYALA OBSERVATI 7 MEM HOSP [facility]OS[facility] ON INC INC SERVICE PER HOUR NONINVASI 41592 [facility] AYALA VE 7 [facility] EAR/PULSE [place] [address] [facility] AYALA INFUSION 7 MEM HOSP [facility] THERAPY/P INC INC ROPHYLAXI S /DX 1ST TO 1 HR ECG 39878 [facility] ELIZABETH JR ROUTINE 7 [facility] W/LEAST P 12 LDS I&R ONLY HOSPITAL G0378 [facility] AYALA OBSERVATI 7 [facility] ON INC INC SERVICE PER HOUR RADIOLOGI 75739 [facility] 7 MEDICAL EXAMINATI IMAGING [place] [address] [facility] AYALA INFUSION 7 [facility] THER INC INC PROPH ADDL SEQUENTIA L TO 1 HR ECG 10938 [facility] AYALA ROUTINE 7 [facility] ECG INC INC W/LEAST 12 LDS TRCG ONLY W/O I&R ADMN SET A7003 YOUR YOUR SM VOL 7 PHARMACY PHARMACY NONFILTR LLC LLC PNEUMAT NEBULIZR DISPBL ALBUTEROL J7620 YOUR YOUR TO 2.5 7 PHARMACY PHARMACY [employer] IPRATROPI UM BROM TO 0.5 MG O2 CONC 1 E1390 [facility]IS [facility] 7 HOME HOME 85%/>02 MEDICAL MEDICAL CONC AT EQUIPME EQUIPME [facility] FLW RATE O2 CONC 1 E1390 [facility] 7 HOME HOME 85%/>02 MEDICAL MEDICAL CONC AT EQUIPME EQUIPME PRS FLW RATE SBSQ 35693 [facility] 7 MEDICAL CARE/DAY SERV 25 FOUNDATIO MINUTES N RADIOLOGI 64147 [facility] C EXAM 7 MEDICAL MEDICAL CHEST 2 IMAGING IMAGING VIEWS ASS ASS FRONTAL&L ATERAL O2 CONC 1 E1390 [facility] 7 HOME HOME 85%/>02 MEDICAL MEDICAL CONC AT EQUIPME EQUIPME PRS FLW RATE O2 CONC 1 E1390 [facility] [place] 6 HOME HOME 85%/>02 MEDICAL MEDICAL CONC AT EQUIPME EQUIPME [facility] FLW RATE O2 CONC 1 E1390 [facility] 6 HOME HOME 85%/>02 MEDICAL MEDICAL CONC AT EQUIPME EQUIPME [facility] FLW RATE ALBUTEROL J7620 YOUR YOUR TO 2.5 6 PHARMACY PHARMACY [employer] IPRATROPI UM BROM TO 0.5 MG PHRM Q0513 YOUR YOUR DISPENSIN 6 PHARMACY PHARMACY G FEE [employer] INHALATIO N RX; PER 30 DAYS ADMN SET A7003 YOUR YOUR SM VOL 6 PHARMACY PHARMACY NONFILTR [email or web address] PNEUMAT NEBULIZR DISPBL O2 CONC 1 E1390 [facility] VARMA 6 HOME HOME 85%/>02 MEDICAL MEDICAL CONC AT EQUIPME EQUIPME [facility] FLW RATE HOSPITAL G0463 [facility] OUTPATIEN 6 MEM H[facility] T CLIN INC INC VISIT ASSESS & MGMT PT O2 CONC 1 E1390 [facility] 6 HOME HOME 85%/>02 MEDICAL MEDICAL CONC AT EQUIPME EQUIPME [facility] FLW RATE BLOOD 38489 [facility] A[facility]AL[facility] COUNT 6 [facility] COMPLETE INC INC AUTO&[place] [address] [facility] ABDOMEN 6 [facility] W/CONTRAS INC INC T MATERIAL COMPREHEN 52975 [facility] SIVE 6 [facility] METABOLIC INC INC PANEL COLLECTIO 81720 [facility] Voss VENOUS 6 [facility] BLOOD INC INC VENIPUNCT URE LOCM Q9967 L[facility] AYALA [phone] [facility] MG/ML INC INC IODINE CONCENTRA TION PER ML ANES 16084 EDOUARD WATTERS UPPER GI 6 ANESTH PALMA ENDOSCOPY OF THE PROXIMAL BLUE TO DUODENUM O2 CONC 1 E1390 [facility] LEVY [place] 6 HOME HOME 85%/>02 MEDICAL MEDICAL CONC AT [facility] FLW RATE O2 CONC 1 E1390 MILDRED PENA DEL PORT 6 HOME MAR 85%/>02 MEDICAL CONC AT [facility] FLW RATE RADEX 51000 JOSE LHARPER FONTANEZ ALL UPPER GI 6 MEDICAL W/WO IMAGING GLUCAGON/ ASS DELAY IMGES W/O KUB RADEX 97421 LUCY AYALA UPPER GI 6 [facility] W/WO INC INC GLUCAGON/ DELAY IMAGES W/KUB COLLECTIO 10176 LUCY AYALA N VENOUS 6 [facility] BLOOD INC INC VENIPUNCT URE FLOW 74657 LUCY AYALA CYTOMETRY 6 [facility] CELL INC INC SURF MARKER TECHL ONLY EA FLOW 49557 MOLECULAR MOLECULAR CYTOMETRY 6 INTERP PATHOLOGY PATHOLOGY 2-8 LAB NETW LAB NETW MARKERS FLOW 19276 LUCY AYALA CYTOMETRY 6 [facility] CELL INC INC SURF MARKER TECHL ONLY 1ST NEBULIZER E0570 MILDRED LEVY WITH 6 HOME HOME COMPRESSO MEDICAL MEDICAL R EQUIPWY EQUIPWY O2 CONC 1 E1390 MILDRED DILLON DEL PORT 6 HOME KEY 85%/>02 MEDICAL CONC AT [facility] FLW RATE SEAT E0156 [facility] ATTACHMEN 6 T WALKER WALKER E0143 [facility] FOLDING 6 WHEELED ADJUSTABL E/FIXED HEIGHT ECG 27829 [place] SAGE CHI ROUTINE 6 MEDICAL ECG SERV W/LEAST FOUNDATIO 12 LDS N I&R ONLY ECG 38117 [place] PELAEZ ROUTINE 6 MEDICAL NAN ECG SERV W/LEAST FOUNDATIO 12 LDS N I&R ONLY RADIOLOGI 71897 [place] JAMES CON C 6 MEDICAL EXAMINATI SERV ON CHEST FOUNDATIO SINGLE N VIEW FRONTAL SBSQ 43524 [facility] 6 MEDICAL KEYANA CARE/DAY SERV 25 FOUNDATIO MINUTES N SBSQ 50895 [facility] 6 MEDICAL KEYANA CARE/DAY SERV 15 FOUNDATIO MINUTES N RADIOLOGI 38008 [place] JONAHGUROVSK C 6 MEDICAL AYA MAR EXAMINATI SERV ON CHEST FOUNDATIO SINGLE N VIEW FRONTAL RADIOLOGI 48566 [place] [facility] 6 MEDICAL EXAMINATI SERV ON CHEST FOUNDATIO SINGLE N VIEW FRONTAL SBSQ 93598 [facility] 6 MEDICAL KEYANA CARE/DAY SERV 15 FOUNDATIO MINUTES N SBSQ 54767 [facility] 6 MEDICAL CARE/DAY SERV 25 FOUNDATIO MINUTES N RADIOLOGI 17509 [place] NOVI LEATHA C 6 MEDICAL EXAMINATI SERV ON CHEST FOUNDATIO SINGLE N VIEW FRONTAL RADIOLOGI 77402 [place] [facility] C 6 MEDICAL EXAMINATI SERV ON CHEST FOUNDATIO SINGLE N VIEW FRONTAL ECG 43605 [facility] ROUTINE 6 MEDICAL ECG SERV W/LEAST FOUNDATIO 12 LDS N I&R ONLY SBSQ 41965 [facility] 6 MEDICAL CARE/DAY SERV 25 FOUNDATIO MINUTES N RADEX 11160 [place] ABDOMEN 1 6 MEDICAL SUSAN SERV ANTEROPOS FOUNDATIO TERIOR N VIEW RADEX 82378 [facility] FLANAGAN ABDOMEN 1 6 Y OF CAR [place] [facility] TERIOR VIEW CRITICAL 81410 [facility] CARE 6 MEDICAL ILL/INJUR SERV ED FOUNDATIO PATIENT N INIT 30-74 MIN RADIOLOGI 56016 [place] JAMES CON C 6 MEDICAL EXAMINATI SERV ON CHEST FOUNDATIO SINGLE N VIEW FRONTAL ECG 57247 [facility] ROUTINE 6 MEDICAL ECG SERV W/LEAST FOUNDATIO 12 LDS N I&[place] [address] [place] REYEZ CELO ABDOMEN & 6 MEDICAL PELVIS SERV W/CONTRAS FOUNDATIO T N MATERIAL CT THORAX 97542 [place] JAMES CON 6 MEDICAL W/CONTRAS SERV T FOUNDATIO MATERIAL N RADIOLOGI 06241 [place] JONAHGUROVSK C 6 MEDICAL AYA MAR EXAMINATI SERV ON CHEST FOUNDATIO SINGLE N VIEW FRONTAL SBSQ 14846 [place] [facility] 6 MEDICAL CARE/DAY SERV 25 FOUNDATIO MINUTES N RADEX 36810 UNIVERSIT FLANAGAN ABDOMEN 1 6 Y OF CAR [place] [facility] TERIOR VIEW SBSQ 07551 [facility] 6 MEDICAL AND CARE/DAY SERV 25 FOUNDATIO MINUTES N INITIAL 11561 [facility] 6 MEDICAL SUN KAYODE CARE/DAY SERV 30 FOUNDATIO MINUTES N RADIOLOGI 54598 [place] JAMES CON C 6 MEDICAL EXAMINATI SERV ON CHEST FOUNDATIO SINGLE N VIEW FRONTAL RADEX ABD 13979 [place] PAULA COMPL 6 MEDICAL JURGEN AQT ABD SERV ANNEL W/S/E/D FOUNDATIO VIEWS 1 N VIEW CH ECHO 56083 [place] [facility] 6 MEDICAL ERIKA 2D SERV W/WOM-MOD FOUNDATIO E COMPL N SPEC&COLR D ECG 71872 [place] SAGE CHI ROUTINE 6 MEDICAL ECG SERV W/LEAST FOUNDATIO 12 LDS N I&R ONLY SBSQ 26920 [facility] 6 MEDICAL AND CARE/DAY SERV 25 FOUNDATIO MINUTES N RADIOLOGI 61850 [place] JAMES CON C 6 MEDICAL EXAMINATI SERV ON CHEST FOUNDATIO SINGLE N VIEW FRONTAL RADIOLOGI 89841 [place] JAMES CON C 6 MEDICAL EXAMINATI SERV ON CHEST FOUNDATIO SINGLE N VIEW FRONTAL ECG 53936 [place] SAGE CHI ROUTINE 6 MEDICAL ECG SERV W/LEAST FOUNDATIO 12 LDS N I&R ONLY RADIOLOGI 63397 [place] WILLIEK C 6 MEDICAL AYA MAR EXAMINATI SERV ON CHEST FOUNDATIO SINGLE N VIEW FRONTAL RADEX 12064 UNIVERSIT SHANELL ABDOMEN 1 6 Y OF [place] [facility] TERIOR [place] RADEX 35086 [place] SETH ABDOMEN 1 6 MEDICAL AYA MAR SERV ANTEROPOS FOUNDATIO TERIOR N VIEW RADIOLOGI 89993 [place] ROBBINS C 6 MEDICAL JESS EXAMINATI SERV ON CHEST FOUNDATIO SINGLE N VIEW FRONTAL RADIOLOGI 53418 [place] JONAHGUROVSK C 6 MEDICAL AYA MAR EXAMINATI SERV ON [place] [address] [place] AYOOB AND ABDOMEN & 6 MEDICAL PELVIS SERV W/CONTRAS FOUNDATIO T N MATERIAL [place] THORAX 42438 [place] ARMENDARIZ JENNA 6 MEDICAL W/CONTRAS SERV T FOUNDATIO MATERIAL N RADEX 39257 UNIVERSIT SHANELL ABDOMEN 1 6 Y OF [place] [facility] TERIOR [place]IEW RADEX 32798 UNIVERS[facility] SHANELL ABDOMEN 1 6 Y OF [place] [facility] TERIOR VIEW SBSQ 64632 [facility] 6 MEDICAL AND CARE/DAY SERV 25 FOUNDATIO MINUTES N SBSQ 67789 [place] [address] MEDICAL AND CARE/DAY SERV 25 FOUNDATIO MINUTES N RADIOLOGI 39219 [place] DELL CAR C 6 MEDICAL EXAMINATI SERV ON CHEST FOUNDATIO SINGLE N VIEW FRONTAL RADIOLOGI 46226 [place] JAMES CON C 6 MEDICAL EXAMINATI SERV ON CHEST FOUNDATIO SINGLE N VIEW FRONTAL ECG 15675 [place] PELAEZ ROUTINE 6 MEDICAL NAN ECG SERV W/LEAST FOUNDATIO 12 LDS N I&R ONLY ECG 14409 [place] HUI MIKHAIL ROUTINE 6 MEDICAL ECG SERV W/LEAST FOUNDATIO 12 LDS N [place] [address] [place] HIEU SURG 6 MEDICAL FRANCO PATHOLOGY SERV FOUNDATIO GROSS&JESS N ROSCOPIC EXAM LEVEL III 13460 [place] HIEU SURG 6 MEDICAL FRANCO PATHOLOGY SERV FOUNDATIO GROSS&JESS N ROSCOPIC EXAM SBSQ 97674 [facility] 6 MEDICAL RONNY CARE/DAY SERV 25 FOUNDATIO MINUTES N ANESTHESI 60563 UNIVERSIT LORI BET A HERNIA 6 Y OF REPAIR [place] [facility] ABDOMEN NOS RPR 1ST 73662 [facility] INGUN 6 MEDICAL RONNY HRNA AGE SERV 5 YRS/> FOUNDATIO INCARCERA N KISHOR ARTL 79027 [facility] UNIVERS CATHJ/CAN 6 Y OF Y OF NULJ [facility] [place] [address] LUCY AYALA LIPASE 6 [facility] INC INC THER 24459 LUCY AYALA PROPH/DX 6 [facility] NJX EA INC INC SEQL IV PUSH SBST/DRUG FAC BLOOD 26776 LUCY AYALA COUNT 6 [facility] COMPLETE INC INC AUTO&[place] [address] LUCY AYALA TROPONIN 6 [facility] [place] [address] [place] F[place] ALL ABDOMEN & 6 MEDICAL PELVIS IMAGING W/O ASS CONTRAST MATERIAL ECG 43555 LUCY AYALA ROUTINE 6 [facility] ECG INC INC W/LEAST 12 LDS TRCG ONLY W/O I&R INITIAL 46453 [facility] 6 MEDICAL CHR CARE/DAY SERV 50 FOUNDATIO MINUTES N GROUND A0425 [facility] 6 AMBULANCE AMBULANCE PER SERVICE SERVICE STATUTE MILE AMBULANCE A0429 [facility] 6 AMBULANCE AMBULANCE BLS SERVICE SERVICE EMERGENCY TRANSPORT CREATINE 41578 LUCY AYALA KINASE 6 [facility] [place] [address] LUCY AYALA AMYLASE 6 [facility] INC INC CREATINE 38869 LUCY AYALA KINASE MB 6 [facility] FRACTION INC INC ONLY INJECTION J2405 LUCY AYALA 6 [facility] ONDANSETR INC INC ON HCL PER 1 MG INJ J2543 LUCY AYALA PIPERACIL 6 [facility] YONATHAN INC INC SOD/TAZOB ACTAM SOD 1 G/0.125 G COMPREHEN 76443 LUCY AYALA SIVE 6 [facility] METABOLIC INC INC PANEL ECG 28193 LUCY BEVERLY ROUTINE 6 [facility] W/LEAST P 12 LDS I&R ONLY RADIOLOGI 37145 [place] ALL C 6 MEDICAL EXAMINATI IMAGING [place] [address] LUCY AYALA INFUSION 6 [facility] THERAPY/P INC INC ROPHYLAXI S /DX 1ST TO 1 HR COLLECTIO 25192 Darnell Wagner KIRILL JENNA N VENOUS 6 PILAR PLEITEZ BLOOD PSC VENIPUNCT URE BLOOD 15943 Darnell Wagner KIRILL JENNA COUNT 6 PILAR PLEITEZ COMPLETE PSC AUTO&AUTO DIFRNTL WBC NEBULIZER E0570 MILDRED MILDRED WITH 6 HOME HOME COMPRESSO MEDICAL MEDICAL R EQUIPME EQUIPME INITIAL 17805 [facility] 6 [facility]/DAY INTERNAL 70 MED MINUTES RADIOLOGI 33981 [place] FRANC[place] 6 MEDICAL EXAMINATI IMAGING ON CHEST ASS SINGLE VIEW FRONTAL ECG 35845 [facility] ROUTINE 6 [facility] W/LEAST P 12 LDS I&R ONLY NEBULIZER E0570 MILDRED LEVY WITH 6 HOME HOME COMPRESSO MEDICAL MEDICAL R EQUIPME EQUIPME ADMN SET A7003 YOUR YOUR SM VOL 6 PHARMACY PHARMACY NONFILTR [email or web address] PNEUMAT NEBULIZR DISPBL COMPREHEN 00394 LUCY AYALA SIVE 6 [facility] METABOLIC INC INC PANEL ALBUTEROL J7620 YOUR YOUR TO 2.5 6 PHARMACY PHARMACY MG & [employer] IPRATROPI UM BROM TO 0.5 MG PHRM Q0513 YOUR YOUR DISPENSIN 6 PHARMACY PHARMACY G FEE [employer] INHALATIO N RX; PER 30 DAYS RADIOLOGI 18486 [place] EST[place] Wagner 6 MEDICAL EXAMINATI IMAGING ON CHEST ASS SINGLE VIEW FRONTAL COLLECTIO 47413 LUCY AYALA N VENOUS 6 [facility] BLOOD INC INC VENIPUNCT URE RADIOLOGI 54168 LUCY Wagner EXAM 6 [facility] CHEST 2 INC INC VIEWS FRONTAL&L ATERAL BLOOD 92955 LUCY AYALA COUNT 6 [facility] MEM [...] IPRATROPI UM BROM TO 0.5 MG RADIOLOGI 30619 [facility] ALL C EXAM 5 MEDICAL CHEST 2 IMAGING VIEWS ASS FRONTAL&L ATERAL CT THORAX 13185 [facility] ALL 5 MEDICAL W/CONTRAS IMAGING T ASS MATERIAL RADIOLOGI 22732 [facility] ALL C EXAM 5 MEDICAL CHEST 2 IMAGING VIEWS ASS FRONTAL&L ATERAL PHARM G0333 YOUR YOUR DISPEN 5 PHARMACY PHARMACY [employer] RX; INITIAL 30-DAY SUPPLY ALBUTEROL J7620 YOUR YOUR TO 2.5 5 PHARMACY PHARMACY [employer] IPRATROPI UM BROM TO 0.5 MG NEBULIZER E0570 MILDRED LEVY WITH 5 HOME HOME COMPRESSO MEDICAL MEDICAL R EQUIPME EQUIPME CATARACT 03535 [facility] REMOVAL 5 JAMILAH JAMILAH INSERTION OF LENS [...] EQUIPME EQUIPME ARWAY PRESS DEVICE EA POLYSOM 74677 NEERAJ KERN MAR 6/>YRS 4 SLEEP 4/> NEUROSCIE ADDL NCES CENT AMA ATTND POLYSOM 87785 LUCY AYALA 6/>YRS 4 [facility] SLEEP 4/> [place] [address] LUCY AYALA SURG 4 [facility] PATHOLOGY INC INC GROSS&JESS ROSCOPIC EXAM SPECIAL 43175 LUCY AYALA STAIN 4 [facility] GROUP 1 INC INC MICROORGA NISMS I&R SPCL STN 64548 LUCY AYALA 2 I&R 4 [facility] EXCPT INC INC MICROORG/ ENZYME/IM CYT IMC/IMC G0461 LUCY AYALA PER 4 [facility] SPECIMEN; INC INC 1ST SNGL/[place] [address] LUCY AYALA INFUSION 4 [facility] THERAPY INC INC PROPHYLAX IS/[place] [address] LUCY AYALA INFUSION 4 [facility] THERAPY/P INC INC ROPHYLAXI S /DX 1ST TO 1 HR SPMTRY 69130 LUCY AYALA W/VC 4 [facility] EXPIRATOR INC INC Y ALFREDO W/WO MXML VOL VNTJ ECHO 89543 LUCY AYALA TTHRC R-T 4 [facility] 2D INC INC W/WOM-MOD E COMPL SPEC&COLR D CV STRS 89273 GLENN MORALES GLENN JR TST 4 DWI DWI XERS&/OR RX CONT ECG I&R ONLY MYOCARDIA 39343 TEX Parra 4 MEDICAL EMY PERFUSION IMAGING PLANAR ASS MULTIPLE STUDIES CV STRS 22212 [facility] TST 4 XERS&/OR RX CONT ECG W/O I&R MYOCARDIA 27695 LUCY AYALA L SPECT 4 [facility] MULTIPLE INC INC STUDIES RADIOLOGI 96119 TEX Wagner EXAM 4 MEDICAL EMY CHEST [...] SONE ACETATE & PHOSPHATE 3 MG RADIOLOGI 49350 LUCY AYALA C EXAM 3 [facility] [...] RENT; EQUIPME EQUIPME FLWMTR HUMIDFR&M ASK 3D 56141 [facility] RENDERING 2 MEDICAL EMY IMAGING W/INTERP& ASS POSTPROC DIFF WORK STATION CT THORAX 26016 [facility] W/O 2 MEDICAL EMY CONTRAST IMAGING MATERIAL ASS PRTBLE E0431 MILDRED MILDRED GASEOUS 2 HOME HOME O2 SYS MEDICAL MEDICAL RENT; EQUIPME EQUIPME FLWMTR HUMIDFR&M ASK TOBACCO 05355 ERIKA WHITLOCKHENS USE 2 DON DON CESSATION INTERMEDI ATE 3-10 MINUTES PRTBLE E0431 MILDRED MILDRED GASEOUS 2 HOME HOME O2 SYS MEDICAL MEDICAL RENT; EQUIPME EQUIPME FLWMTR HUMIDFR&M ASK PRTBLE E0431 MILDRED MILDRED GASEOUS 2 HOME HOME O2 SYS MEDICAL MEDICAL RENT; EQUIPME EQUIPME FLWMTR HUMIDFR&M ASK SPMTRY 29220 MARIS POLLOCK W/VC 2 JAM JAM EXPIRATOR Y ALFREDO W/WO MXML VOL VNTJ RADIOLOGI 56669 TEX MA C EXAM 2 MEDICAL EMY CHEST 2 IMAGING VIEWS ASS FRONTAL&L ATERAL PRTBLE E0431 MILDRED LEVY GASEOUS 2 HOME HOME O2 SYS MEDICAL MEDICAL RENT; EQUIPME EQUIPME FLWMTR H[place]IDFR&[place] [address] LUCY AYALA GUIDANCE 2 [facility] NEEDLE INC INC PLACEMENT THORACENT 71992 LUCY AYALA ESIS 2 [facility] PUNCTURE INC INC PLEURAL CAVITY ASPIRATIO N RADIOLOGI 47814 LUCY AYALA C EXAM 2 [facility] CHEST 2 INC INC VIEWS FRONTAL&L ATERAL CYTP 06534 PATHOLOGY PATHOLOGY SLCTV 2 & & CELL CYTOLOGY CYTOLOGY ENHANCEME LAB LAB NT INTERPJ XCPT C/V CT THORAX 22055 LUCY AYALA W/O 2 [facility] CONTRAST INC INC MATERIAL CARBOXYHE 55384 LUCY AYALA MOGLOBIN 2 [facility] QUANTITAT INC INC ARCENIO CELL 92079 LUCY AYALA COUNT 2 [facility] MISC BODY INC INC FLUIDS W/DIFFERE NTIAL COUNT COLLECTIO 55060 LUCY AYALA N VENOUS 2 [facility] BLOOD INC INC VENIPUNCT URE NONINVASI 51352 LUCY AYALA VE 2 [facility] EAR/PULSE INC INC OXIMETRY SINGLE DETER CUL BACT 88852 LUCY AYALA XCPT 2 [facility] URINE INC INC BLOOD/STO OL AEROBIC ISOL CULTURE 73665 LUCY AYALA BACTERIAL 2 [facility] ANY INC INC SOURCE ANAEROBIC ISO&ID CULTURE 18977 LUCY AYALA TUBERCLE/ 2 [facility] OTH INC INC ACID-FAST BACILLI [place]OL T[place] FRED 51707 LUCY AYALA SLIDE 2 [facility] SAMPS INC INC SKN/HR/NL S FNGI/ECTO PARASIT SMR PRIM 25123 LUCY AYALA SRC 2 [facility] GRAM/GIEM INC INC SA STAIN BCT FUNGI/VAHID L CYANOCOBA 36731 LUCY BOBON BETTIE 2 [facility] VITAMIN INC INC B-12 BLOOD 38291 LUCY AYALA GASES ANY 2 [facility] INC INC COMBINATI ON PH PCO2 PO2 CO2 HCO3 GLUCOSE 50337 LUCY AYALA BODY 2 [facility] FLUID INC INC OTHER THAN BLOOD IRON 46978 LUCY AYALA BINDING 2 [facility] CAPACITY INC INC LACTATE 28093 LUCY BOBON DEHYDROGE 2 [facility] [place] [address] LUCY AYALA IRON 2 [facility] INC INC PROTEIN 41356 LUCY AYALA XCPT 2 [facility] REFRACTOM INC INC ETRY SERUM PLASMA/WH L BLD CT THORAX 66737 LUCY AYALA W/O 2 [facility] CONTRAST INC INC MATERIAL ECG 46843 [facility] ROUTINE 2 JENNA JENNA ECG W/LEAST 12 LDS I&R ONLY SPUTUM 52468 LUCYJOAN AYALA OBTAINING 2 [facility] SPEC INC INC AEROSOL INDUCED TX SPX 3D 99249 [facility] R[facility]ING 2 MEDICAL EMY IMAGING W/INTERP& ASS POSTPROC DIFF WORK STATION ECG 41776 LUCYJOAN AYALA ROUTINE 2 [facility] ECG INC INC W/LEAST 12 LDS TRCG ONLY W/O I&R PRTBLE E0431 MILDRED LEVY GASEOUS 2 HOME HOME O2 SYS MEDICAL MEDICAL RENT; EQUIPME EQUIPME FLWMTR HUMIDFR&M ASK PRTBLE E0431 MILDRED LEVY GASEOUS 2 HOME HOME O2 SYS MEDICAL MEDICAL RENT; EQUIPME EQUIPME FLWMTR HUMIDFR&M ASK SPMTRY 18957 LUCY AYALA W/VC 2 [facility] EXPIRATOR INC INC Y ALFREDO W/WO MXML VOL VNTJ PRTBLE E0431 MILDRED MILDRED GASEOUS 2 HOME HOME O2 SYS MEDICAL MEDICAL RENT; EQUIPME EQUIPME FLWMTR HUMIDFR&M ASK PRTBLE E0431 MILDRED MILDRED GASEOUS 2 HOME HOME O2 SYS MEDICAL MEDICAL RENT; EQUIPME EQUIPME FLWMTR HUMIDFR&M ASK RADIOLOGI 04161 ERIKA JAMES C EXAM 2 DON DON CHEST 2 VIEWS FRONTAL&L ATERAL CT THORAX 42364 [place] FRANC[place] 2 MEDICAL EMY W/CONTRAS IMAGING T ASS MATERIAL LIPID 46631 COMBINED COMBINED PANEL 2 PHYSICIAN PHYSICIAN S LA S LA COMPREHEN 18840 COMBINED COMBINED SIVE 2 PHYSICIAN PHYSICIAN METABOLIC S LA S LA PANEL BLOOD 38679 COMBINED COMBINED COUNT 2 PHYSICIAN PHYSICIAN COMPLETE S LA S LA AUTO&[place] [address] COMBINED COMBINED PROSTATE 2 PHYSICIAN PHYSICIAN SPECIFIC [...] 85%/>02 MEDICAL MEDICAL CONC AT EQUIPME EQUIPME [facility] FLW RATE O2 CONC 1 E1390 MILDRED [facility] 1 HOME HOME 85%/>02 MEDICAL MEDICAL CONC AT EQUIPME EQUIPME [facility] FLW RATE PRTBLE E0431 MILDRED LEVY GASEOUS 1 HOME HOME O2 SYS MEDICAL MEDICAL RENT; [facility]QUIP[facility] H[facility]&M ASK PRTBLE E0431 MILDRED LEVY GASEOUS 1 HOME MED HOME MED O2 SYS EQUIP. L EQUIP. L RENT; [facility] HUMIDFR&M ASK O2 CONC 1 E1390 MILDRED [facility] 1 HOME MED HOME MED 85%/>02 EQUIP. L EQUIP. L CONC AT [facility] FLW RATE O2 CONC 1 E1390 MILDRED [facility] 1 HOME MED HOME MED 85%/>02 EQUIP. L EQUIP. L CONC AT [facility] FLW RATE PRTBLE E0431 MILDRED LEVY GASEOUS 1 HOME MED HOME MED O2 SYS EQUIP. L EQUIP. L RENT; [facility] HUMIDFR&M ASK PRTBLE E0431 MILDRED LEVY GASEOUS 1 HOME MED HOME MED O2 SYS EQUIP. L EQUIP. L RENT; [facility] HUMIDFR&M ASK O2 CONC 1 E1390 MILDRED [facility] 1 HOME MED HOME MED 85%/>02 EQUIP. L EQUIP. L CONC AT [facility] FLW RATE O2 CONC 1 E1390 MILDRED [facility] 1 HOME MED HOME MED 85%/>02 EQUIP. L EQUIP. L CONC AT [facility] FLW RATE PRTBLE E0431 MILDRED LEVY GASEOUS 1 HOME MED HOME MED O2 SYS EQUIP. L EQUIP. L RENT; [facility] HUMIDFR&M ASK PRTBLE E0431 MILDRED LEVY GASEOUS 1 HOME MED HOME MED O2 SYS EQUIP. L EQUIP. L RENT; [facility] HUMIDFR&M ASK O2 CONC 1 E1390 MILDRED [facility] 1 HOME MED HOME MED 85%/>02 EQUIP. L EQUIP. L CONC AT [facility] FLW RATE O2 CONC 1 E1390 [place] 0 HOME MED HOME MED 85%/>02 EQUIP. L EQUIP. L CONC AT [facility] FLW RATE PRTBLE E0431 MILDRED MILDRED GASEOUS 0 HOME MED HOME MED O2 SYS EQUIP. L EQUIP. L RENT; FLWM[facility] HUMIDFR&M ASK PRTBLE E0431 MILDRED MILDRED GASEOUS 0 HOME MED HOME MED O2 SYS EQUIP. L EQUIP. L RENT; [facility] HUMIDFR&M ASK O2 CONC 1 E1390 [place] 0 HOME MED HOME MED 85%/>02 EQUIP. L EQUIP. L CONC AT [facility] FLW RATE O2 CONC 1 E1390 [place] 0 HOME MED HOME MED 85%/>02 EQUIP. L EQUIP. L CONC AT [facility] FLW RATE PRTBLE E0431 MILDRED MILDRED GASEOUS 0 HOME MED HOME MED O2 SYS EQUIP. L EQUIP. L RENT; [facility] HUMIDFR&M ASK PRTBLE E0431 MILDRED MILDRED GASEOUS 0 HOME MED HOME MED O2 SYS EQUIP. L EQUIP. L RENT; [facility] HUMIDFR&M ASK O2 CONC 1 E1390 [place] 0 HOME MED HOME MED 85%/>02 EQUIP. L EQUIP. L CONC AT [facility] FLW RATE VIRUS 28342 [facility] CENTRIFUG 0 Y Y E [facility] ID IMFLUOR STAIN EA CULTURE 31162 [facility] FUNGI 0 Y [facility] E ID EACH ORGANISM [facility] PRIM 91490 [facility] 0 Y Y GRAM/GIEM [facility] SA STAIN BCT FUNGI/VAHID L IAADI 09169 [facility] PNEUMOCUS 0 Y Y TIS [facility] CARINII [facility] PRIM 91422 [facility] 0 Y Y FLUORESCE [facility] NT&/AFS BCT FNGI PARASIT TISS FRED 07079 [facility] SLIDE 0 Y Y [facility] SKN/HR/NL S FNGI/ECTO PARASIT CULTURE 31726 [facility] TUBERCLE/ 0 Y Y [facility] ACID-FAST BACILLI ANY ISOL BRNCHSC 75887 [facility] W/BRNCL 0 Y Y ALVEOLAR [facility] LAVAGE CUL BACT 70024 [facility] XCPT 0 Y Y URINE [facility] BLOOD/STO OL AEROBIC ISOL INJECTION J3010 [facility] FENTANYL 0 Y Y CITRATE [facility] 0.1 MG INJECTION J2250 [facility] 0 Y Y MIDAZOLAM [facility] HCL PER 1 MG CULTURE 65964 [facility] FNGI 0 Y Y MOLD/YEAS [facility] T PRSMPTV OTH XCPT BLOOD SPECIAL 36338 [facility] STAIN 0 Y Y GROUP 1 [facility] MICROORGA NISMS I&R BRONCHOSC 25853 [facility] OPY 0 Y Y W/TRANSBR [facility] ONCHIAL LUNG BX 1 LOBE BRONCHOSC 38250 [facility] OPY 0 Y Y NEEDLE BX [facility] TRACHEA MAIN STEM&/BRO N CYTP EVAL 81896 [facility] FINE 0 Y Y NEEDLE [facility] ASPIRATE INTERP & REPORT CELL 97578 [facility] COUNT 0 Y Y MISC BODY [facility] FLUIDS W/[place] [address] [facility] SURG 0 Y Y PATHOLOGY [facility] GROSS&JESS ROSCOPIC EXAM CYTP FINE 52391 [facility] NDL 0 Y Y ASPIRATE [facility] IMMT CYTOHIST STD DX 1ST CONCENTRA 91963 [facility] TION 0 Y Y INFECTIOU [facility] S AGENTS VIRUS 46757 [facility] TISS CUL 0 [facility] ON CYTOPATHI C EFFECT IADNA NOS 15701 [facility] 0 Y Y AMPLIFIED [facility] PROBE TQ EACH ORGANISM RADIOLOGI 99588 [facility] C 0 [facility] ON CHEST [place] FRONTAL PRTBLE E0431 MILDRED MILDRED GASEOUS 0 HOME MED HOME MED O2 SYS EQUIP. L EQUIP. L RENT; [facility] HUMIDFR&M ASK O2 CONC 1 E1390 [place]DRED L[place]Y DEL PORT 0 HOME MED HOME MED 85%/>02 EQUIP. L EQUIP. L CONC AT [facility] FLW RATE RADEX 28473 [place] FRANC[place] ESOPHAGUS 0 MEDICAL EMY IMAGING ASS PHLEBOTOM 10329 COMBINED COMBINED Y 0 PHYSICIAN PHYSICIAN THERAPEUT S LA S LA IC SEPARATE PROCEDURE DUP-SCAN 30653 [place] FRANC[place] XTR VEINS 0 MEDICAL EMY COMPLETE IMAGING ASS BILATERAL STUDY BRNCDILAT 75560 [facility] RSPSE 0 [facility] SPMTRY INC INC PRE&POST- BRNCDILAT ADMN COLLECTIO 94545 [facility] N VENOUS 0 [facility] BLOOD INC INC VENIPUNCT URE PULMONARY 70128 [place] PO[place] STRESS 0 MEDICAL JAM TESTING SERV SIMPLE FOUNDATIO COMPREHEN 55559 [facility] SIVE 0 [facility] METABOLIC INC INC PANEL BLOOD 03938 [facility] LUCY COUNT 0 [facility] COMPLETE INC INC AUTO&AUTO DIFRNTL WBC COMPREHEN 51306 COMBINED COMBINED SIVE 0 PHYSICIAN PHYSICIAN METABOLIC S LAB S LAB PANEL 3D 68821 [place] NELLY RENDERING 0 MEDICAL KEY IMAGING W/INTERP& ASS POSTPROC DIFF WORK STATION COLLECTIO 26802 COMBINED COMBINED N VENOUS 0 PHYSICIAN PHYSICIAN BLOOD S LAB S LAB VENIPUNCT URE CT THORAX 28860 [place] NELLY W/O 0 MEDICAL KEY CONTRAST IMAGING MATERIAL ASS RADIOLOGI 24628 [place] FRANCES[place] C EXAM 0 MEDICAL EMY CHEST 2 IMAGING VIEWS ASS FRONTAL&L ATERAL PRTBLE E0431 [facility] LEVY GASEOUS 0 HOME MED HOME MED O2 SYS EQUIP. EQUIP. RENT; [facility] FLWMTR HUMIDFR&M ASK O2 CONC 1 E1390 [place] DEL PORT 0 HOME MED HOME MED 85%/>02 EQUIP. EQUIP. CONC AT [facility] FLW RATE O2 CONC 1 E1390 [place] 0 HOME MED HOME MED 85%/>02 EQUIP. EQUIP. CONC AT [facility] FLW RATE INJECTION J1940 ERIKA JAMES, 0 DON R DON R FUROSEMID E UP TO 20 MG PRTBLE E0431 [place] LEVY GASEOUS 0 HOME MED HOME MED O2 SYS EQUIP. EQUIP. RENT; [facility] FLWMTR HUMIDFR&M ASK ECG 58065 ERIKA JAMES, ROUTINE 0 DON R DON R ECG W/LEAST 12 LDS W/I&R RADIOLOGI 27016 ERIKA JAMES C EXAM 0 DON R DON R CHEST 2 VIEWS FRONTAL&L ATERAL RADIOLOGI 97012 ERIKA JAMES C 0 DON R DON R EXAMINATI ON CHEST [facility] 28112 ERIKA JAMES, DISCHARGE 0 DON R DON R DAY MANAGEMEN T 30 MIN/< RADIOLOGI 83345 Kristy VALENTIN EXAM 0 MEDICAL JANE P CHEST 2 IMAGING VIEWS ASSOCIATE FRONTAL&L S ATERAL SBSQ 80326 [facility] 0 DON R DON R CARE/DAY 25 MINUTES SBSQ 19110 [facility] 0 DON R DON R CARE/DAY 25 MINUTES SBSQ 38146 [facility] 0 DON R DON R CARE/DAY 25 MINUTES SBSQ 67069 [facility] 0 DON R DON R CARE/DAY 25 MINUTES 3D 50049 [place], RENDERING 0 MEDICAL SHASHI IMAGING W/INTERP& ASSOCIATE POSTPROC S DIFF WORK STATION CT THORAX 61805 [place] FR[place], 0 MEDICAL SHASHI W/CONTRAS IMAGING T ASSOCIATE MATERIAL S SBSQ 68965 [facility] 0 DON R DON R CARE/DAY 25 MINUTES RADIOLOGI 93885 ERIKA JAMES C 0 DON R DON R EXAMINATI ON CHEST [facility] 06085 Kristy OROSCO EXAM 0 MEDICAL SHASHI CHEST 2 IMAGING VIEWS ASSOCIATE FRONTAL&L S ATERAL INITIAL 50650 [facility] CARE/DAY 50 MINUTES OPHTH 14466 [facility] 9 DONTE A DONTE A XM&EVAL COMPRHNSV ESTAB PT 1/> OPHTH 47722 RETINA & NINI, [facility] 9 VITREOUS CALLIE W XM&EVAL ASSOCIATE INTERMEDI S O ATE ESTAB PT SCANNING 89429 RET[facility] & NINI, [facility] 9 VITREOUS CALLIE W C IMAGING ASSOCIATE S O POSTERIOR SGM UNI INJECTION J1040 ERIKA JAMES, 8 DON R DON R METHYLPRE DNISOLONE ACETATE 80 MG SCANNING 26110 [facility] & NINI, [facility] 8 VITREOUS CALLIE W C IMAGING ASSOCIATE S O POSTERIOR SGM UNI OPHTH 98627 [facility] & NINI, MEDICAL 8 VITREOUS CALLIE W XM&EVAL ASSOCIATE INTERMEDI S O ATE ESTAB PT INJECTION J1040 ERIKA JAMES 8 DON R DON R METHYLPRE DNISOLONE ACETATE 80 MG OPHTH 13813 [facility] 8 DONTE A DONTE A XM&EVAL COMPRHNSV ESTAB PT 1/> OPHTH 79699 RETINA & [facility], [facility] 8 VITREOUS CALLIE W XM&EVAL ASSOCIATE INTERMEDI S O ATE ESTAB PT SCANNING 36744 [facility] & NINI, [facility] 8 VITREOUS CALLIE W C IMAGING ASSOCIATE S O POSTERIOR SGM UNI INJECTION J1040 ERIKA JAMES 8 DON R DON R METHYLPRE DNISOLONE ACETATE 80 MG RADIOLOGI 61741 ERIKA JAMES C EXAM 8 DON R DON R CHEST 2 VIEWS FRONTAL&L ATERAL OPHTH 18383 RETINA & RETINA & MEDICAL 8 VITREOUS VITREOUS XM&EVAL ASSOCIATE ASSOCIATE INTERMEDI S O S O ATE ESTAB PT SCANNING [id number] RETINA & RETINA & OPHTHALMI 8 VITREOUS VITREOUS C IMAGING ASSOCIATE ASSOCIATE S O S O POSTERIOR SGM UNI SCANNING [id number] RETINA & RETINA & OPHTHALMI 8 VITREOUS VITREOUS C IMAGING ASSOCIATE ASSOCIATE S O S O POSTERIOR SGM UNI OPHTH [id number] RET[place] & RETINA & MEDICAL 8 VITREOUS VITREOUS XM&EVAL ASSOCIATE ASSOCIATE INTERMEDI S O S O ATE ESTAB PT INJECTION [id number] EIRKA JAMES, 8 DON R DON R DEXAMETHO SONE SODIUM PHOSPHATE 1 MG Encounters Encounter Start End Date Code Location Performer Type Date OFFICE [id number] [facility] OUTPATIEN 7 7 PHYSICIAN T VISIT S GROUP 40 MINUTES HOSPITAL LUCY - 7 7 [facility] OFFICE 80798 [facility] OUTPATIEN 7 7 PHYSICIAN T VISIT S GROUP 25 MINUTES OFFICE 58263 [facility] OUTPATIEN 7 7 PHYSICIAN T VISIT S GROUP 40 MINUTES HOSPITAL LUCY - 7 7 [facility] OUTPATIEN INC T OFFICE 09984 A C KIR[facility] OUTPATIEN 7 7 PILAR PLEITEZ T VISIT PSC 15 MINUTES OFFICE 52471 [facility] 7 Y OF CK T VISIT [place] 25 HOSPI MINUTES OFFICE 96691 A C [facility] OUTPATIEN 7 7 [facility]AR [place] T VISIT PSC 15 MINUTES OFFICE 80512 [facility] OUTPATIEN 7 7 [facility] [place] T VISIT PSC 15 MINUTES HOSPITAL LUCY - 7 7 [facility] INPATIENT INC OFFICE 25722 A C KIRILL OUTPATIEN 7 7 PILAR [place]LE[place] T VISIT PSC 15 MINUTES OFFICE 24519 A C KIRILL OUTPATIEN 7 7 P[place] [place] T VISIT PSC 15 MINUTES OFFICE 41037 ELIO PO[facility]OCK OUTPATIEN 6 6 MEDICAL JAM T VISIT [facility] 25 FOUNDATIO MINUTES [facility] LUCY - 6 6 [facility] OUTPATIEN INC T OFFICE 66997 [facility] ALLRAN JR OUTPATIEN 6 6 PHYSICIAN RITA T VISIT S GROUP 10 MINUTES HOSPITAL LUCY - 6 6 [facility]IEN INC T OFFICE 56325 LUCY EVAN OUTPATIEN 6 6 [facility] VISIT HOSP[facility] 10 P MINUTES OFFICE 26803 A Kristy ROY OUTPATIEN 6 6 PILAR PLEITEZ T VISIT PSC 15 MINUTES OFFICE 59675 ELIO POLLOCK OUTPATIEN 6 6 MEDICAL JAM T VISIT SERV 15 FOUNDATIO MINUTES N OFFICE 13847 [facility] ALLRAN JR OUTPATIEN 6 6 PHYSICIAN RITA T VISIT S GROUP 15 MINUTES OFFICE 06487 LUCY EVAN OUTPATIEN 6 6 [facility] 20 HOSPITAL MINUTES [facility] LUCY - 6 6 [facility] OUTPATIEN INC T OFFICE 35865 [facility] ALL[facility] JR OUTPATIEN 6 6 PHYSICIAN RITA T NEW 45 S GROUP MINUTES OFFICE 24174 [place] OUTPATIEN 6 6 MEDICAL JAM T VISIT SERV 25 FOUNDATIO MINUTES HOSPITAL LUCY - 6 6 [facility] OUTPATIEN INC T OFFICE 03525 A Kristy ROY OUTPATIEN 6 6 PILAR PLEITEZ T VISIT PSC 15 MINUTES OFFICE 38672 ELIO POLLOCK OUTPATIEN 6 6 MEDICAL JAM T VISIT SERV 25 FOUNDATIO MINUTES HOSPITAL LUCY - 6 6 [facility] OUTPATIEN INC T EMERGENCY 72620 FATUMA WATTERS DEPT 6 6 Y OF MADALYN VISIT [facility] HOSPI SEVERITY& THREAT FUN OFFICE 99702 A Kristy WEST OUTPATIRYLEE 6 6 P[place]AR [place]LE[place] T VISIT PSC 15 MINUTES OFFICE 64181 A C KIRILL JENNA OUTPATIEN 6 6 PILAR PLEITEZ T VISIT PSC 15 MINUTES OFFICE 70310 ELIO POLLOCK OUTPATIEN 6 6 MEDICAL JAM T VISIT SERV 40 FOUNDATIO MINUTES [facility] LUCY [facility] 6 6 [facility] INPATIENT [facility] LUCY - 6 6 [facility] OUTPATIEN [facility] OFFICE 76127 [place] PO[place] OUTPATIEN 6 6 MEDICAL T VISIT SERV 25 FOUNDATIO MINUTES OFFICE 20539 ELIO DODSONPOLLOCK OUTPATIEN 6 6 MEDICAL JAM T VISIT SERV 15 FOUNDATIO MINUTES [facility] LUCY - 5 5 [facility] OUTPATIEN [facility] LUCY - 5 5 [facility] OUTPATIEN [facility] LUCY - 5 5 [facility] OUTPATIEN [facility] OFFICE 64769 A C FIELD AMB OUTPATIEN 5 5 PILAR PLEITEZ T VISIT PSC 15 MINUTES OFFICE 15731 A C FIELD AMB OUTPATIEN 4 4 [...] LUCY - 4 4 [facility] OUTPATIEN [facility] OFFICE 88358 FIELD AMB FIELD AMB OUTPATIEN 4 4 T VISIT 15 MINUTES OFFICE 61823 FIELD AMB FIELD AMB OUTPATIEN 3 3 T VISIT 15 MINUTES OFFICE 74460 A C FIELD AMB OUTPATIEN 3 3 PILAR PLEITEZ T NEW 30 PSC MINUTES OFFICE 43943 ERIKA MELENDREZS OUTPATIEN 3 3 DON DON T VISIT 15 MINUTES OFFICE 11243 JAMES JAMES OUTPATIEN 3 3 DON DON T VISIT 15 MINUTES HOSPITAL LUCY - 3 3 [facility] OUTPATIEN [facility] LUCY - 2 2 [facility] OUTPATIEN [facility] OFFICE 65400 ERIKA WHITLOCKHENS OUTPATIEN 2 2 DON DON T VISIT 15 MINUTES HOSPITAL LUCY - 2 2 [facility] 2 [facility] OUT[facility] OFFICE 93828 ERIKA MELENDREZS OUTPATIEN 2 2 DON DON T VISIT 15 MINUTES OFFICE 15297 JAMES JAMES OUTPATIEN 1 1 DON DON T VISIT 15 MINUTES OFFICE 00528 JAMES JAMES OUTPATIEN 1 1 DON DON T VISIT 15 MINUTES OFFICE 90184 JAMES JAMES OUTPATIEN 1 1 DON DON T VISIT 15 MINUTES OFFICE 53488 JAMES JAMES OUTPATIEN 1 1 DON DON T VISIT 15 MINUTES HOSPITAL UNIVERSIT - 0 0 [facility] LUC[facility] - 0 0 [facility]EN [facility] LUC[facility] - 0 0 [facility] LUC[facility] - 0 0 [facility] OUTPATI[facility] INC T [facility]OSPITAL LUCY - 0 0 [facility] OUTPATIEN INC T OFFICE 91086 ERIKA JAMES OUTPATIRYLEE 0 0 DON R DON R T VISIT 15 MINUTES OFFICE 35393 ERIKA JAMES OUTPATIEN 0 0 DON R DON R T VISIT 25 MINUTES OFFICE 40354 ERIKA JAMES OUTPATIEN 0 0 DON R DON R T VISIT 15 MINUTES OFFICE 23496 ERIKA JAEMS OUTPATIEN 8 8 DON R DON R T VISIT 15 MINUTES OFFICE 73874 ERIKA JAMES OUTPATIRYLEE 8 8 DON R DON R T VISIT 15 MINUTES OFFICE 57807 ERIKA JAMES OUTPATIEN 8 8 DON R DON R T VISIT 15 MINUTES OFFICE 19888 ERIKA JAMES OUTPATIRYLEE 8 8 DON R DON R T VISIT 15 MINUTES OFFICE 34573 ERIKA JAMES OUTPATIEN 8 8 DON R DON R T VISIT 15 MINUTES"
--- OUTSIDE RECORDS SUMMARY | 2017-02-15 19:47 | External Medical Summary Rpt | CCD ---
Author Author , RANDALL PEREIRA Address Unknown Phone [email or web address] Immunization Name Date Rout CVX Reac Dose Comm Prov Is Faci e tion ent ider Refu lity Give sed n Zost 09-1 121 1 mL Hist JIM No RITE er 9-20 oric S AID0 17 al STEP 3938 Info HEN rmat ion - Sour ce Unsp ecif ied PPV2 07-0 33 999 Hist D203 No D203 3 1-20 oric 45 45 16 al Info rmat ion - Sour ce Unsp ecif ied PPV2 05-3 Subc 33 0.5 Hist [facility] No [facility] 3 1-20 utan mL oric 1 1 16 eous al Info rmat ion - Sour ce Unsp ecif ied
--- OUTSIDE RECORDS SUMMARY | 2017-02-15 19:47 | External Medical Summary Rpt | CCD ---
Author Author , RANDALL PEREIRA Address Unknown Phone [email or web address] Immunization Name Date Rout CVX Reac Dose [...]
--- OUTSIDE RECORDS SUMMARY | 2017-02-15 19:49 | External Medical Summary Rpt ---
Author Author RANDALL Thompson, [employer] Address Unknown Phone Unavailable Results Digoxin [Mass/volume] in Serum or Plasma Observa Value Referen Units Interpr Notes Date tion ce etation Range Digoxin 1.15 - ng/mL Normal No Feb 15 [Mass/vol 2.56 informati 2017 5:45 ume] in on in PM Serum or source Plasma data Cardiac enzymes Observa Value Referen Units Interpr Notes Date ti ce etation Range Creatine 0 - 4.0 U/L High No Dec 06 kinase.MB informati 2017 3:10 /Creatine on in AM source kinase.to data jenae [Ratio] in Serum or Plasma Creatine 0.0 - 3.6 ng/mL No No Dec 06 kinase.MB informati informati 2017 3:10 on in on in AM [Mass/vol source source ume] in data data Serum or Plasma Creatine 39 - 308 U/L Low No Dec 06 kinase informati 2017 3:10 [Enzymati on in AM c source activity/ data volume] in Serum or Plasma Troponin 0.00 - ng/mL Normal No Dec 06 I.cardiac 0.06 informati 2017 3:10 on in AM [Mass/vol source ume] in data Serum or Plasma Urinalysis dipstick W Reflex Microscopic panel in Urine Observa Value Referen Units Interpr Notes Date tion ce etation Range Collected by nurse? Y Hold specimen in OE? N Appeara CLEAR CLEAR No No No Dec 05 nce of informa informa informa 2017 Urine tion in tion in tion in 10:20 source source source PM data data data Amorpho OCC NONE No No No Dec 05 us informa informa informa 2017 sedimen tion in tion in tion in 10:20 t source source source PM [Presen data data data ce] in Urine sedimen t by Light microsc opy Bacteri 1+ O No No No Dec 05 a informa informa informa 2017 [Presen tion in tion in tion in 10:20 ce] in source source source PM Urine data data data sedimen t by Light microsc opy Bilirub NEGATIV NEG No No No Dec 05 in E informa informa informa 2017 [Presen tion in tion in tion in 10:20 ce] in source source source PM Urine data data data by Test strip Erythro NEGATIV NEG No No No Dec 05 cytes E informa informa informa 2017 [Presen tion in tion in tion in 10:20 ce] in source source source PM Urine data data data Color YELLOW YELLOW No No No Nov 16 of informa informa informa 2017 Urine tion in tion in tion in 10:20 source source source PM data data data Glucose NEG No No No Dec 05 [Mass/vol informati informati informati 2017 ume] in on in on in on in 10:20 PM Urine by source source source Test data data data strip Hyaline 3-5 NONE #/lpf No No Dec 05 casts informa informa 2017 [Presen tion in tion in 10:20 ce] in source source PM Urine data data sedimen t by Light microsc opy Ketones NEGATIV NEG mg/dL No No Dec 05 E informa informa 2016 [Presen tion in tion in 10:20 ce] in source source PM Urine data data by Automat ed test strip Mucus NEGATIV NEG No No No Dec 05 [Presen E informa informa informa 2017 ce] in tion in tion in tion in 10:20 Urine source source source PM sedimen data data data t by Light microsc opy Nitrite NEGATIV NEG No No No Dec 05 E informa informa informa 2016 [Presen tion in tion in tion in 10:20 ce] in source source source PM Urine data data data by Test strip pH of 5.0 - 8.5 No Normal No Nov 16 Urine informati informati 2017 on in on in 10:20 PM source source data data Protein NEG mg/dL High No Nov 16 [Mass/vol informati 2017 ume] in on in 10:20 PM Urine by source Automated data test strip Specific 1.005 - No Normal No Dec 05 gravity 1.030 informati informati 2017 of Urine on in on in 10:20 PM source source data data Epithel OCC OCC #/hpf No No Aug 16 ial informa informa 2017 cells.s tion in tion in 10:20 quamous source source PM data data [Presen ce] in Urine sedimen t by Microsc opy high power field Urobili 0.2 NEG E.U./dL No No Dec 05 nogen informa informa 2016 [Presen tion in tion in 10:20 ce] in source source PM Urine data data by Test strip Leukocy [3 O wbc/hpf No No Dec 05 anisa wbc/hpf informa informa 2016 [#/volu ; 5 tion in tion in 10:20 me] in wbc/hpf source source PM Urine ] data data Urinalysis dipstick W Reflex Microscopic panel in Urine Observa Value Referen Units Interpr Notes Date tion ce etation Range Collected by nurse? Y Hold specimen in OE? N Appeara CLEAR CLEAR No No No Dec 05 nce of informa informa informa 2017 Urine tion in tion in tion in 10:20 source source source PM data data data Bilirub NEGATIV NEG No No No Dec 05 in E informa informa informa 2016 [Presen tion in tion in tion in 10:20 ce] in source source source PM Urine data data data by Test strip Erythro NEGATIV NEG No No No Dec 05 cytes E informa informa informa 2016 [Presen tion in tion in tion in 10:20 ce] in source source source PM Urine data data data Color YELLOW YELLOW No No No Dec 05 of informa informa informa 2016 Urine tion in tion in tion in 10:20 source source source PM data data data Glucose NEG No No No Dec 05 [Mass/vol informati informati informati 2017 ume] in on in on in on in 10:20 PM Urine by source source source Test data data data strip Ketones NEGATIV NEG mg/dL No No Dec 05 E informa informa 2016 [Presen tion in tion in 10:20 ce] in source source PM Urine data data by Automat ed test strip Mucus NEGATIV NEG No No No Dec 05 [Presen E informa informa informa 2016 ce] in tion in tion in tion in 10:20 Urine source source source PM sedimen data data data t by Light microsc opy Nitrite NEGATIV NEG No No No Dec 05 E informa informa informa 2016 [Presen tion in tion in tion in 10:20 ce] in source source source PM Urine data data data by Test strip pH of 5.0 - 8.5 No Normal No Nov 16 Urine informati inform 2017 on in on in 10:20 PM source source data data Protein NEG mg/dL High No Dec 05 [Mass/vol inform2016 ume] in on in 10:20 PM Urine by source Automated data test strip Specific 1.005 - No Normal No Dec 05 gravity 1.030 informati inform2016 of Urine on in on in 10:20 PM source source data data Urobili 0.2 NEG E.U./dL No No Dec 05 nogen informa inform2016 [Presen tion in tion in 10:20 ce] in source source PM Urine data data by Test strip Lactate [Moles/volume] in Blood Observa Value Referen Units Interpr Notes Date tion ce etation Range Lactate 0.4 - 2.0 mmol/L Normal No Dec 05 [Moles/vo informati 2016 8:11 lume] in on in PM Blood source data Gas panel in Venous blood Observa Value Referen Units Interpr Notes Date tion ce etation Range Base -2.4-2.3 MMOL/L Normal No Dec 05 excess in informati 2017 7:20 Venous on in PM blood source data Bicarbona 23 - 27 MMOL/L Normal No Dec 05 te informati 2017 7:20 [Moles/vo on in PM lume] in source Venous data blood Carbon 41 - 51 MMHG Normal No Dec 05 dioxide informati 2017 7:20 [Partial on in PM pressure] source in data Venous blood pH of 7.31 - MMOL/L Normal No Dec 05 Venous 7.41 informati 2017 7:20 blood on in PM source data Oxygen 35 - 40 MMHG High No Dec 05 content informati 2017 7:20 in Venous on in PM blood source data Oxygen 75 - 80 % High No Dec 05 saturatio informati 2017 7:20 n.calcula on in PM sergio from source oxygen data partial pressure in Venous blood Carbon 23 - 27 MMOL/L Normal No Dec 05 dioxide, informati 2017 7:20 total on in PM [Moles/vo source lume] in data Venous blood Fibrin D-dimer FEU [Mass/volume] in Platelet poor [...] INDICATIO Dec 05 Blood by informati N 2016 6:05 Coagulati on in PM on assay [...] Y Activated 23.6 - SECONDS Normal No Dec 05 partial 34.0 informati 2016 6:05 thrombpla on in PM stin time source (aPTT) data in Platelet poor plasma by Coagulati on assay CBC W Auto Differential panel in Blood Observa Value Referen Units Interpr Notes Date ti ce etation Range Basophils 0 - 0.2 K/MM3 Normal No Dec 05 informati 2017 6:05 [#/volume on in PM [...] % Normal No Dec 05 es informati 2017 6:05 [#/volume on in PM ] in source Unspecifi data ed specimen by Automated count Erythrocy 27 - 31.2 pg Low No Dec 05 te mean informati 2017 6:05 corpuscul on in PM ar source hemoglobi data n [Entitic mass] Erythrocy 31.8 - g/dl Normal No Dec 05 te mean 35.4 informati 2017 6:05 corpuscul on in PM ar source hemoglobi data n concentra tion [Mass/vol ume] by Automated count Erythrocy 82.2 - fl Normal No Dec 05 te mean 97.8 informati 2017 6:05 corpuscul on in PM ar volume source [Entitic data volume] by Automated count Monocytes 0.1 - 1.0 K/mm3 Normal No Nov 16 informati 2016 6:05 [#/volume on in PM [...] data fluid Erythrocy 11.5 - % Normal Dec 05 te 17.5 informati 2016 6:05 [...] - 3 % Normal No Dec 05 ls100 informati 2016 6:05 leukocyte on in PM s in source Blood by data Manual count LYMPH 35 10 - 50 % Normal No Dec 052016 tion in 6:05 PM source data Monocytes 2 - 9 % Normal No Dec 05 informati 2016 6:05 leukocyte on in PM s in source Blood by data Automated count Platele NORMAL No No No No Dec 05 ts informa informa informa informa 2016 [Presen tion in tion in tion in tion in 6:05 PM ce] in source source source source Blood data data data data by Light microsc opy Neutrophi 42 - 76 % Normal No Dec 05 ls 2016 6:05 [#/volume on in PM ] in source Blood by data Automated count Cells No #CELLS No Dec 05 Counted informati informati informati [...] Blood data Hemoglobi 14.1 - g/dL No Nov 16 n 18.0 informati informati [...] 106 mg/dL Normal No Nov 16 [Mass/vol inform2016 5:35 ume] in on in AM Serum [...] 1.0 K/mm3 Normal No Nov 15 informati 2016 [...] - 424 K/mm3 Normal No Nov 15 inform2016 2:30 [...] 5 % Normal No Nov 15 es informati 2016 2:30 Variant/1 on in PM 00 [...] 76 % High No Nov 15 ls ati 2016 2:30 [#/volume on in PM [...] Normal No Nov 09 t [Volume 52.0 ati 2016 on in 10:03 AM Fraction] source of Blood data Hemoglobi 14.1 - g/dL Normal No Nov 09 n 18.0 2016 [Mass/vol on in 10:03 AM ume] in source Blood data Lymphocyt 0.7 - 4.5 K/mm3 Normal No Nov 09 es ati 2016 [#/volume on in 10:03 AM ] in source Unspecifi data ed specimen by Automated count Lymphocyt 10 - 50 % Normal No Nov 09 es 2016 [#/volume [...] 142 - 424 K/mm3 Normal No Nov 09 inform2016 [#/volume [...] ng/mL Normal No Nov 05 [Mass/vol 2.56 informati 2016 3:46 ume] in on in PM [...] % High No Nov 05 es informati 2017 6:30 Variant/1 on in AM 00 source leukocyte data s in Blood by Manual count Hypochr 1+ No No No No Nov 05 omia informa informa informa informa 2017 [Presen tion in tion in tion in tion in 6:30 AM ce] in source source source source Blood data data data data LYMPH 31 10 - 50 % Normal No Nov 05 informa 2016 tion in 6:30 AM source data Monocytes [...] Normal No Nov 05 [Mass/vol 10.1 informati 2017 6:30 ume] in on in [...] 15 - 37 U/L Low No Nov 052016 6:30 aminotran on in AM sferase source [...] - 2.0 % Normal No Nov 02 / informati 2016 6:15 leukocyte on in [...] 1.7 - 9.3 % Normal No Nov 02 /100 informati 2016 6:15 leukocyte on in [...] Nov 02 smear informa informa informa informa 2016 finding tion in tion in tion in [...] No Nov 02 Counted informati informati informati 2017 6:15 Total [#] on in on in [...] mmol/L Normal No Nov 01 [Moles/vo informati 2017 lume] in on in 12:20 AM Blood [...] 9.3 % Normal No Oct 31 informati 2017 9:52 leukocyte on in PM [...] Interpr Notes Date ti ce etation Range Anisocy 1+ No No No No Oct 31 tosis informa informa informa informa 2016 [Presen tion in tion in tion in tion in 9:52 PM ce] in source source source source Blood data data data data Eosinophi 0 - 3 % High No Oct 31 ls informati 2016 9:52 leukocyte on in PM s in source Blood by data Manual count LYMPH 27 10 - 50 % Normal No Oct [id number] tion in 9:52 PM source data Monocytes 2 - 9 % Normal No Oct 31 informati 2016 [...] % Low No Oct 27 12.0 informati 2017 4:10 leukocyte on in AM s in source Blood by data Automated count Granulocy 1.3 - 8.0 K/mm3 High No Oct 27 anisa informati 2016 4:10 [#/volume on in AM ] in source Blood by data Automated count Granulocy 37.0 - % High No Oct 27 anisa/100 80.0 informati 2017 4:10 leukocyte on in AM s in source Blood by data Automated count Hematocri 42.0 - % Normal No Oct 27 t [Volume 52.0 informati 2016 4:10 on in AM Fraction] source of Blood data Hemoglobi 14.1 - g/dL Low No Oct 27 n 18.0 informati 2017 4:10 [Mass/vol on in AM ume] in source Blood data Lymphocyt 0.7 - 4.5 K/mm3 Normal No Oct 27 es informati 2017 4:10 [#/volume on in AM ] in source Unspecifi data ed specimen by Automated count Lymphocyt 10 - 50 % Normal No Oct 27 informati 2016 [...] - 9.3 % Normal No Oct 27 / informati 2017 4:10 leukocyte on in AM [...] Normal No Oct 27 te 17.5 informati 2017 4:10 distribut on in AM ion width [...] % Normal No Oct 27 ls.band informati 2016 4:10 form/100 on in AM leukocyte source s in data Blood by Automated count Hypochr 1+ No No No No Oct 27 omia informa informa informa informa 2016 [Presen tion in tion in tion in tion in 4:10 AM ce] in source source source source Blood data data data data LYMPH 14 10 - 50 % Normal No Oct 27 informa 2017 tion in 4:10 AM source data Platele [...] % High No Oct 27 ls informati 2017 4:10 [#/volume on in AM [...] % Normal No Oct 25 / informati 2017 5:30 leukocyte on in AM [...] 10 - 50 % Normal No Oct 252016 5:30 [#/volume on in AM ] in source Unspecifi data ed specimen by Automated count Erythrocy 27 - 31.2 pg Low No Oct 25 te mean informati 2016 5:30 corpuscul on in AM ar source hemoglobi data n [Entitic mass] Erythrocy 31.8 - g/dl Low No Oct 25 te mean 35.4 informati 2016 5:30 corpuscul on in AM [...] 1.7 - 9.3 % Low No Oct 25 /100 informati 2016 5:30 leukocyte on in AM s in source Blood by data Automated count Platelet 7.4 - fl Normal No Oct 25 mean 10.4 informati 2016 5:30 volume on in AM [Entitic source volume] data in Blood by Automated count Platelets 142 - 424 K/mm3 Normal No Oct 25 informati 2016 [...] No No Oct 24 s informati informati 2016 5:10 [#/volume on in on in PM [...] 100 pg/mL Normal No Oct 24 tic informati 2017 2:35 peptide B on in PM source [Mass/vol data ume] in Serum or Plasma CBC W Auto Differential panel in Blood Observa Value Referen Units Interpr Notes Date tion ce etation Range Basophils 0 - 0.2 K/MM3 Normal No Oct 242016 2:35 [#/volume on in PM ] in source Blood by data Automated count Basophils 0.1 - 2.0 % Normal No Oct 24 /100 inform2016 [...] % Normal No Oct 24 anisa/100 80.0 2016 2:35 leukocyte on in PM s in source Blood by data Automated count Hematocri 42.0 - % Normal No Oct 24 t [Volume 52.0 2016 2:35 on in PM Fraction] source of Blood data Hemoglobi 14.1 - g/dL Normal No Oct 24 n 18.0 2016 2:35 [Mass/vol on in PM ume] [...] Platelets 142 - 424 K/mm3 No Oct 24 informati informati 2016 2:35 [#/volume on in on [...] No No Oct 24 ts informa a inform2016 [Presen tion in tion in tion [...] 2016 2:35 Coagulati on in on in [id number] PM on assay source source CATION data [...] Plasma Observa Value Referen Units Interpr Notes ti ce etation Range Urea 7 - 18 mg/dL Normal No September 14 nitrogen informati 2016 [Mass/vol on in 12:22 PM ume] in source Serum or data Plasma CREATININE Observa Value Referen Units Interpr Notes Date tion ce etation Range Creatinin 0.70 - mg/dL Normal No September 14 e 1.30 informati 2016 [Mass/vol on in 12: PM ume] in source Serum or data Plasma Estimated >60 ML/MIN No REFERENCE September 14 informati RANGE: 2017 glomerula on in >60 12:22 PM r source ML/MIN/1. filtratio data 73 SQUARE n rate METERSIf (GF this patient is -A merican, then multiply theresult by 1.210.
--- OUTSIDE RECORDS SUMMARY | 2017-02-15 19:49 | External Medical Summary Rpt ---
[...] 2016 2:35 Coagulati on in on in [id number] PM on assay source source CATION data [...]
[2017-02-15 21:54] VITALS: BP 165/81
[2017-02-15 22:03] VITALS: BP 165/81
[2017-02-16 00:05] VITALS: BP 128/56
[2017-02-16 03:39] VITALS: BP 139/68
--- NOTE | 2017-02-16 06:44 | RADIOLOGY REPORT PS360 ---
CHEST-PORTABLE HISTORY: SOA ORDERING PHYSICIAN: Fletcher Stevenson MD PATIENT AGE: 76 years COMPARISON: 12/05/2016 FINDINGS: Normal heart size. Bipolar pacemaker is present.. Chronic changes are present involving the lungs and pleura with blunting of the CP angles bilaterally and mild pleural calcification on the right. No lobar consolidation or collapse.. No acute bony abnormalities. IMPRESSION: Chronic pleural-parenchymal changes with no acute finding
[2017-02-16 06:51] LABS: LYMPH # 1.9 K/mm3 (0.7-4.5); LYMPH % 14.6 % (10-50)
[2017-02-16 07:07] LABS: HEMOGLOBIN 12.1 g/dL (14.1-18.0)
--- NOTE | 2017-02-16 08:02 | Discharge Summary Standard ---
Demographics: Admit date: 02/15/17 Chief complaint: Atrial fibrillation exacerbation PRIMARY DIAGNOSIS: PNEUMONIA-HEALTHCARE ACQUIRED Allergies: Coded Allergies: No Known Allergies (02/15/17) History of present illness: History of present illness: 76-year-old white male with end-stage emphysema and recurrent atrial fibrillation/multifocal atrial tachycardia who came to the emergency department last night with feelings of rapid heart rate and shortness of air. He was found to be in atrial fibrillation but was given IV fluids and this alone spontaneously seemed to convert his atrial fibrillation to sinus rhythm. Workup by ER physician revealed "pneumonia in both lower lobes" and patient had a mild leukocytosis and was admitted to hospital for IV therapy. ER physician started triple coverage for "hospital-acquired pneumonia" although patient has not been in the hospital since over 8 weeks ago. Patient was kept overnight. He's had no further runs of A. fib. He is alert, pleasant, and very talkative. He notes that he feels "exactly the same as I do at home." He complains of chronic chest pain, chronic cough, chronic shortness of air. He has sputum production but this is his baseline. He wishes to go home. On review of his chest x-ray there is no change management specialist baseline and official radiology report confirms this that he simply has chronic scarring. Past medical history: Family HX Diabetes No CAD No Hypertension Yes Hyperlipidemia No Cancer No TB No Immunization HX Ped.Immunizations UTD Yes DT/Tetanus 1-4 Years Ago Flu Refused Pneumonia Received In Past TB Test in last year No General CAD? Yes Angina: No [place]: Yes Hypertension? Yes Hyperlipidemia? Yes CHF? No DVT? No PE? No COPD? Yes Asthma? Yes Anemia? No GERD? No Gastric ulcers? No GI Bleed? No Hernia? No Thyroid Problems? No Hypothyroidism? No CVA? No Seizures? No Diabetes? No Renal Insuffiency? No UTI? No Stones? No BPH? No GB Disease: No Nephritic Syndrome? No Asplenia? No Hepatitis? No Sickle Cell Disease? No Arthritis? No Migraines? No Cataracts? Yes Glaucoma? No MRSA? No HIV? No TB? No Anxiety? No Depression? No Cancer? No More? Yes Additional hx: ATRIAL FIB Past Surgical HX Previous Surgery?Y HERNIA REPAIR 1960'S LT MUSCLE ARM & LEG RIGHT KNEE SURGERY CATARACTS ON R EYE HERNIA 2016 CARDIAC PACER 10/25/16 Current home meds: Active Scripts HYDROCODONE/ACETAMINOPHEN (Hydrocodon-Acetaminoph 7.5-325) 1 TAB PO BID #60 TAB Prov: 11/19/16 Bisoprolol Fumarate 10 MG PO BID #60 TAB Ref 2 Prov: 12/07/16 Reported Medications UMECLIDINIUM BRM/VILANTEROL TR (Anoro Ellipta 62.5-25 Mcg INH) 1 PUFF IH DAILY Omeprazole (Omeprazole 20MG) 40 MG PO DAILY 30 Days CETIRIZINE HCL (Cetirizine 10MG) 10 MG PO DAILYP PRN ALLERGIES Fluticasone Furoate (Arnuity Ellipta) 100 MCG IH DAILY NITROGLYCERIN (Nitrostat) 0.4 MG SL [id number] PRN CHEST PAIN Roflumilast (Daliresp) 500 MCG PO DAILY Aspirin (Aspirin EC) 81 MG PO DAILY 30 Days Cyclobenzaprine Hcl (Cyclobenzaprine 10MG) 10 MG PO DAILY TAMSULOSIN HCL (Tamsulosin 0.4MG) 0.4 MG PO QHS Digoxin (Digitek) 250 MCG PO DAILY Social Hx: Smoking HX Tobacco No Type Cigarettes Packs/day < 1 PACK Are you/the child exposed to second-hand smoke: Yes Alcohol Alcohol: No Hx of Drug Use Drug Use? No Patien't marital status is Patient's support system is excellent Comment: Patient maintains DNR status at his home, takes excellent care of him. Review of systems: Constitutional No: malaise, weakness. Respiratory see HPI. Cardiovascular see HPI Gastrointestinal/Abdominal No no symptoms reported Genitourinary No: no symptoms reported. Musculoskeletal back pain, muscle pain, muscle stiffness. Neurological No: see HPI. Exam: Lab data for last 24 hours: Laboratory Tests 02/16/17 0615: WBC 12.6 H, RBC 4.62, Hgb 12.1 L, Hct 39.6 L, MCV 85.7, RDW 15.3, Plt Count 147, MPV 10.0, Gran % 83.0 H, Gran # 10.5 H, Lymphocytes % 14.6, Monocytes % 2.3, Eosinophils % 0.0 L, Basophils % 0.1, Lymphocytes # 1.9, Monocytes # 0.3, Eosinophils # 0.0, Basophils # 0.0, PUBS MCHC 30.6 L, MCH 26.2 L 02/15/172212: Influenza Type A Ag NOT DETECTED, Influenza Type B Ag NOT DETECTED 02/15/171912: ABG pH 7.41, ABG pCO2 (Temp Corrct 42.0, ABG pO2 (Temp Correct 74.7 L, ABG HCO3 26.1 H, ABG Total CO2 27.4 H, ABG O2 Sat (Calculated) 95.4, ABG Base Excess 1.5, Serg Test ACCEPTABLE 02/15/171809: Lactic Acid 2.0 02/15/171744: Sodium 143, Potassium 4.2, Chloride 105, Carbon Dioxide 33 H, BUN 13, Creatinine 1.0, Estimated Creat Clear 76, Estimated GFR (MDRD) 73, Glucose 109 H, Calcium 8.4 L, Total Bilirubin 0.4, AST 12 L, ALT 13, Alkaline Phosphatase 113, Creatine Kinase 23 L, CK-MB (CK-2) Rel Index 2.6, CK and CKMB Interp 0.6, Troponin I 0.02, B-Natriuretic Peptide 221 H, Total Protein 6.8, Albumin 3.0 L , Globulin 3.8 H, Albumin/Globulin Ratio 0.8 L, WBC 18.1 H, RBC 5.56, Hgb 14.7, Hct 47.9, MCV 86.2, RDW 15.3, Plt Count 160, MPV 10.0, Gran % 66.7, Gran # 12.0 H, Total Counted 100, Lymphocytes % 22.4, Monocytes % 4.2, Eosinophils % 5.8, Basophils % 0.9, Neutrophils 64, Band Neutrophils 1, Lymphocytes (Manual) 24, Lymphocytes # 4.1, Monocytes (Manual) 4, Monocytes # 0.8, Eosinophils # 1.1 H, Eosinophils # (Manual) 7 H, Basophils # 0.2, Platelet Estimate NORMAL, Polychromasia SL., Hypochromasia 1+, Rouleaux 1+, PUBS MCHC 30.6 L, MCH 26.4 L , Mycoplasma pneumon IgM NON-REACTIVE, Digoxin 1.22 Microbiology 02/15 2245 SPUTUM: Organism ID (Sequencing 2)(JESS) - ORD 02/15 1935 SPUTUM: Sputum Culture - RES 02/15 1935 SPUTUM: Gram Stain - RES 02/15 1810 BLOOD: Anaerobic Blood Culture - RECD 02/15 1810 BLOOD: Aerobic Blood Culture - RECD 02/15 1810 BLOOD: Anaerobic Blood Culture - RECD 02/15 1810 BLOOD: Aerobic Blood Culture - RECD Admission vital signs: 1ST Vital Signs Result Date Time Pulse Ox 88 02/15 1755 B/P 142/84 02/15 1755 Temp 98.0 02/15 1755 Pulse 129 02/15 1755 Resp 18 02/15 1755 O2 Flow Rate 3 02/15 1830 O2 Delivery OXYGEN 02/15 1913 Additional information: Patient is bearded. Appears older than his stated age of 76. Oropharynx clear. No JVD. Heart rate regular. Heart auscultation is compromised because of his rhonchi and crackles. Lungs have diffuse rhonchi and crackles but symmetric air entry. Deep breathing produced a cough productive of yellow sputum. He has no diminished lung sounds in either base. He has no edema or clubbing. He is able to move all his extremities and has been up and around the restroom and had eaten 100% of his breakfast. Hospital Course Hospital Course: Patient was watched overnight as noted. He seems at his baseline. He wishes to go home. I think discharging this patient and place him on prednisone, azithromycin and Omnicef would be reasonable. He has an appointment with his regular physician in 3 days. Medications Medications: Discharge meds are as noted. Follow up Follow up in office in: 3 DAYS with: Fletcher Stevenson MD at 0801
[2017-02-16] MEDS ORDERED: ZITHROMAX Z-PA250 M2 PO (08:03)
[2017-02-16] MEDS ORDERED: PREDNISONE 20MG20 MG PO (08:03)
[2017-02-16] MEDS ORDERED: OMNICEF 300 MG300 MG PO (08:03)
[2017-02-16 08:20] VITALS: BP 146/79
[2017-02-16 11:29] VITALS: BP 146/79
== END 2017-02-16 11:31 | disposition home or self-care (01) ==
LOC: ER 17:50 → 2ND 19:55
PROVIDERS: General Practice
DX: J18.9 Pneumonia, unspecified organism (principal); Y95 Nosocomial condition; I10 Essential (primary) hypertension; J44.9 Chronic obstructive pulmonary disease, unspecified; Z72.0 Tobacco use; Z95.0 Presence of cardiac pacemaker; R06.00 Dyspnea, unspecified; I48.91 Unspecified atrial fibrillation
CPT/HCPCS: G0238; G0378; J2543; J3370

== ENCOUNTER 2017-03-29 23:18 | Emergency (ER) | payer MEDICARE, MEDICAID ==
[~2017-03-29] VITALS: Ht 182.9 cm; Wt 88.0 kg
[~2017-03-29 23:18] MED LIST changes: +OMNICEF 300 MG300 MG PO; +PREDNISONE 20MG20 MG PO; +ZITHROMAX Z-PA250 M2 PO
--- OUTSIDE RECORDS SUMMARY | 2017-03-29 23:42 | External Medical Summary Rpt | CCD ---
Author Author , RANDALL PEREIRA Address Unknown Phone [email or web address] Care Team Providers Care Sales Representative Supervisor Name Role Phone [facility] Unavailable Unavailable [id number] # [phone], [facility] [phone] # [phone] Purpose Continuity of Care Document - 09-05-2009 through 2016 Problems Code Diagnosis DOS Provider Status D64.9 ANEMIA, UNSPECIFIED D72.829 ELEVATED WHITE BLOOD CELL COUNT, UNSPECIFIED I45.2 BIFASCICULA R BLOCK I48.91 UNSPECIFIED ATRIAL FIBRILLATIO N I50.9 HEART FAILURE, UNSPECIFIED J18.9 PNEUMONIA, UNSPECIFIED ORGANISM J20.9 ACUTE BRONCHITIS, UNSPECIFIED J44.0 CHRONIC OBSTRUCTIVE PULMON DISEASE W ACUTE LOWER RESP INFCT J44.1 CHRONIC OBSTRUCTIVE PULMONARY DISEASE W (ACUTE) EXACERBATIO N J44.9 CHRONIC OBSTRUCTIVE PULMONARY DISEASE, UNSPECIFIED K40.90 [...] ia de te s n re d LO 63 05 08 3 60 20 [...] CY 03 93 8 # 03 93 Results Labs Lab Lab Date Result Refere Interp Status Commen Order Detail nces retati t Range on Antibiotic sensitivity studies (02-18-2017 06:22) Levoflo = 1 complet xacin 017 ug/ml ed suscept 06:22 ibility test by minimum inhibit ory concent ration Trimeth <= 20 complet oprim/s 017 ug/ml ed ulfamet 06:22 hoxazol e suscept ibility test by minimum inhibit ory concent ration CBC w auto diff (02-16-2017 06:15) Blood = 39.6 42.0-52 complet hematoc 017 % .0 ed rit 06:15 (volume fractio n) Blood = 12.1 14.1-18 complet hemoglo 017 g/dL .0 ed bin 06:15 measure ment (mass/v olum Absolut = 1.9 0.7-4.5 complet e 017 K/mm3 ed lymphoc 06:15 yte count Lymphoc = 14.6 10-50 complet yte 017 % ed count, 06:15 blood, automat ed Mean = 26.2 27-31.2 complet corpusc 017 pg ed ular 06:15 hemoglo bin (MCH) determ Automat = 30.6 31.8-35 complet ed 017 g/dl .4 ed erythro 06:15 cyte mean corpusc ular h Automat = 85.7 82.2-97 complet ed 017 fl .8 ed erythro 06:15 cyte mean corpusc ular v Absolut = 0.3 0.1-1.0 complet e 017 K/mm3 ed monocyt 06:15 e count [place] % = 2.3 % 1.7-9.3 complet 017 ed 06:15 Automat = 10.0 7.4-10. complet ed 017 fl 4 ed blood 06:15 platele t mean volume wenceslao Blood = 147 142-424 complet platele 017 K/mm3 ed t count 06:15 Red = 4.62 4.6-6.2 complet blood 017 M/mm3 ed cell 06:15 count Automat = 15.3 11.5-17 complet ed 017 % .5 ed erythro 06:15 cyte distrib ution width Blood = 12.6 4.8-10. complet leukocy 017 K/MM3 8 ed anisa 06:15 count (number /volume ) Automat = 0.0 0-0.2 complet ed 017 K/MM3 ed blood 06:15 basophi l count (count/ vo Baso % = 0.1 % 0.1-2.0 complet 017 ed 06:15 Automat = 0.0 0.0-0.4 complet ed 017 K/mm3 ed blood 06:15 eosinop hil count Automat = 0.0 % 0.1-12. complet ed 017 0 ed blood 06:15 eosinop hils/10 0 leukocy t Blood = 10.5 1.3-8.0 complet granulo 017 K/mm3 ed cytes 06:15 automat ed count (numb Granulo = 83.0 37.0-80 complet cyte 017 % .0 ed percent 06:15 age Influenza A and B virus antigen assay (02-15-2017 22:13) Influen NOT NOT complet za A ag 017 DETECTE DETECTD ed QL 22:13 D NOT DETECTE D L Influen NOT NOT complet za 017 DETECTE DETECTD ed virus B 22:13 D NOT DETECTE antigen D L detecti on Urine Legionella pneumophila 1 antigen d (02-15-2017 21:35) Urine Negativ Negativ complet Legione 017 e e ed lla 21:35 Negativ pneumop e L brian 1 antigen d Comment: Presumptive negative for L. pneumophila serogroup 1 antigen Comment: in urine, suggesting no recent or current infection. Comment: Legionnaires' disease cannot be ruled out since other Comment: serogroups and species may also cause disease. Comment: Performed at: [facility] Comment: [address], [place] [id number] Comment: Bar Pointer: Octavio Granger MD, Phone: [phone] Sputum culture (02-15-2017 19:35) Sputum [id number] complet culture 017 02 ed 19:35 Stenotr ophomon as maltoph glen SCT STM STENOTR OPHOMON MALTOPH GLEN L Arterial blood gas (02-15-2017 19:13) Arteria = 1.5 -2.4-+2 complet l blood 017 MMOL/L .3 ed base 19:13 excess determi nation Serg's ACCEPTA complet test 017 BLE ed before 19:13 ACCEPTA arteria BLE L l blood gas Arteria = 26.1 22.0-26 complet l blood 017 MMOL/L .0 ed 19:13 bicarbo esperanza measure ment ( Arteria = 28%, complet l blood 017 2LPM NC ed total 19:13 oxygen content pura Arteria = 42.0 35.0-45 complet l blood 017 MMHG .0 ed 19:13 partial pressur e of carbo Arteria = 7.41 7.35-7. complet l blood 017 MMOL/L 45 ed pH 19:13 measure ment Arteria = 74.7 80-100 complet l whole 017 MMHG ed blood 19:13 PO2 at POC Arteria = 95.4 90-100 complet l blood 017 % ed oxygen 19:13 saturat ion calcula Arteria = 27.4 23-27 complet l blood 017 MMOL/L ed carbon 19:13 dioxide , total wenceslao Blood lactic acid measurement (moles/vol (02-15-2017 18:10) Blood = 2.0 0.4-2.0 complet lactic 017 mmol/L ed acid 18:10 measure ment (moles/ vol Digoxin level (02-15-2017 17:45) Digoxin = 1.22 1.15-2. complet level 017 ng/mL 56 ed 17:45 Brain natriuretic peptide (02-15-2017 17:45) Brain = 221 0-100 complet natriur 017 pg/mL ed etic 17:45 peptide Cardiac enzymes (02-15-2017 17:45) Serum = 2.6 0-4.0 complet or 017 U/L ed plasma 17:45 creatin e kinase MB (CK-M Serum = 0.6 0.0-3.6 complet or 017 ng/mL ed plasma 17:45 creatin e kinase MB measu Serum = 23 39-308 complet or 017 U/L ed plasma 17:45 creatin e kinase measure m Serum = 0.02 0.00-0. complet or 017 ng/mL 06 ed plasma 17:45 troponi n i.cardi ac measu Comprehensive metabolic panel (02-15-2017 17:45) Serum = 0.8 1.1-1.8 complet or 017 ed plasma 17:45 albumin /globul in mass ra Serum = 3.0 3.4-5.0 complet or 017 gm/dL ed plasma 17:45 albumin measure ment (mas Serum = 113 46-116 complet or 017 U/L ed plasma 17:45 alkalin e phospha tase wenceslao Serum = 0.4 0.2-1.0 complet or 017 mg/dL ed plasma 17:45 total bilirub in measure m Serum = 13 7-18 complet or 017 mg/dL ed plasma 17:45 urea nitroge n measure men Serum = 8.4 8.5-10. complet or 017 mg/dL 1 ed plasma 17:45 calcium measure ment (mas Serum = 105 98-107 complet or 017 mmoL/L ed plasma 17:45 chlorid e measure ment (mo Carbon = 33 21.0-32 complet dioxide 017 mmoL/L .0 ed 17:45 measure ment Serum = 1.0 0.70-1. complet or 017 mg/dL 30 ed plasma 17:45 creatin ine measure ment ( Estimat = 76 50-200 complet ion of 017 ML/MIN ed creatin 17:45 ine renal clearan ce Estimat = 73 >60 complet ed 017 ML/MIN ed glomeru 17:45 lar filtrat ion rate (GF Comment: REFERENCE RANGE: >60 ML/MIN/1.73 SQUARE METERS Comment: If this patient is -Moroccan, then multiply the Comment: result by 1.210. Serum = 3.8 1.3-3.2 complet globuli 017 gm/dL ed n 17:45 measure ment (mass/v olume) Serum = 109 74-106 complet or 017 mg/dL ed plasma 17:45 glucose measure ment (mas Serum = 4.2 3.5-5.1 complet potassi 017 mmoL/L ed um 17:45 measure ment Serum = 143 136-145 complet sodium 017 mmoL/L ed measure 17:45 ment Serum = 12 15-37 complet or 017 U/L ed plasma 17:45 asparta te aminotr ansfera ALT = 13 12-78 complet (SGPT) 017 U/L ed ser/mary 17:45 s Protein = 6.8 6.4-8.2 complet total 017 gm/dL ed ser/mary 17:45 s CBC w auto diff (02-15-2017 17:45) Automat = 0.2 0-0.2 complet ed 017 K/MM3 ed blood 17:45 basophi l count (count/ vo Baso % = 0.9 % 0.1-2.0 complet 017 ed 17:45 Automat = 1.1 0.0-0.4 complet ed 017 K/mm3 ed blood 17:45 eosinop hil count Automat = 5.8 % 0.1-12. complet ed 017 0 ed blood 17:45 eosinop hils/10 0 leukocy t Blood = 12.0 1.3-8.0 complet granulo 017 K/mm3 ed cytes 17:45 automat ed count (numb Granulo = 66.7 37.0-80 complet cyte 017 % .0 ed percent 17:45 age Blood = 47.9 42.0-52 complet hematoc 017 % .0 ed rit 17:45 (volume fractio n) Blood = 14.7 14.1-18 complet hemoglo 017 g/dL .0 ed bin 17:45 measure ment (mass/v olum Absolut = 4.1 0.7-4.5 complet e 017 K/mm3 ed lymphoc 17:45 yte count Lymphoc = 22.4 10-50 complet yte 017 % ed count, 17:45 blood, automat ed Mean = 26.4 27-31.2 complet corpusc 017 pg ed ular 17:45 hemoglo bin (MCH) determ Automat = 30.6 31.8-35 complet ed 017 g/dl .4 ed erythro 17:45 cyte mean corpusc ular h Automat = 86.2 82.2-97 complet ed 017 fl .8 ed erythro 17:45 cyte mean corpusc ular v Absolut = 0.8 0.1-1.0 complet e 017 K/mm3 ed monocyt 17:45 e count [place] % = 4.2 % 1.7-9.3 complet 017 ed 17:45 Automat = 10.0 7.4-10. complet ed 017 fl 4 ed blood 17:45 platele t mean volume wenceslao Blood = 160 142-424 complet platele 017 K/mm3 ed t count 17:45 Red = 5.56 4.6-6.2 complet blood 017 M/mm3 ed cell 17:45 count Automat = 15.3 11.5-17 complet ed 017 % .5 ed erythro 17:45 cyte distrib ution width Blood = 18.1 4.8-10. complet leukocy 017 K/MM3 8 ed anisa 17:45 count (number /volume ) Differential panel, method unspecified - (02-15-2017 17:45) LYMPH 24 % 10-50 complet 017 ed 17:45 Monocyt = 4 % 2-9 complet e % 017 ed 17:45 Platele NORMAL complet t 017 NORMAL ed estimat 17:45 L e Blood SL. SL. complet polychr 017 L ed omasia 17:45 detecti on by light m Neutrop = 64 % 42-76 complet hil 017 ed count 17:45 Erythro 1+ 1+ L complet cyte 017 ed rouleau 17:45 x microsc opic examina Blood = 100 complet total 017 #CELLS ed cell 17:45 count Automat = 1 % 0-8 complet ed 017 ed blood 17:45 band neutrop hil percent a Manual = 7 % 0-3 complet blood 017 ed eosinop 17:45 hils/10 0 leukocy anisa Hypochr 1+ 1+ L complet omatic 017 ed red 17:45 blood cell detecti on Mycoplasma IgM (02-15-2017 17:45) Mycopla NON-RYANNE NONREAC complet sma IgM 017 CTIVE TIVE ed 17:45 NON-RYANNE CTIVE L
--- OUTSIDE RECORDS SUMMARY | 2017-03-29 23:42 | External Medical Summary Rpt | CCD ---
Author Author , RANDALL PEREIRA Address Unknown Phone [email or web address] Care Team Providers Care Trimmer Sorter Name Role Phone [facility] Unavailable Unavailable [phone] # [phone], [facility] [phone] # [phone] Purpose Continuity of Care Document [...] 017 K/mm3 ed monocyt 06:15 e count [place] % = 2.3 % 1.7-9.3 complet 017 [...] may also cause disease. Comment: Performed at: [facility] Comment: [address] [place], [place] [id number] Comment: Card Puncher: Octavio Granger MD, Phone: [phone] Sputum culture (02-15-2017 19:35) Sputum [id number] complet culture 017 02 ed 19:35 Stenotr [...] SQUARE METERS Comment: If this patient is -Ivorian, then multiply the Comment: result by 1.210. [...] 017 K/mm3 ed monocyt 17:45 e count [place] % = 4.2 % 1.7-9.3 complet 017 [...]
--- OUTSIDE RECORDS SUMMARY | 2017-03-29 23:43 | External Medical Summary Rpt | CCD ---
Demographics Preferred Language Nepali Marital Status Unknown Restorationist Affiliation Unknown Race Unknown Ethnic Group Unknown Author Author , RANDALL PEREIRA Address Unknown Phone [email or web address] Team Providers Care Windows Server Administrator Name Role Phone [facility] Unavailable Unavailable [phone] # [phone], [facility] [phone] # [phone] Purpose Continuity of Care Document - 09-05-2009 through 2016 Medications Na ND Rx Da Fi Fi [...]
--- OUTSIDE RECORDS SUMMARY | 2017-03-29 23:43 | External Medical Summary Rpt | CCD ---
Author Author , RANDALL PEREIRA Address Unknown Phone [email or web address] Immunization Name Date Rout CVX Reac Dose [...]
--- OUTSIDE RECORDS SUMMARY | 2017-03-29 23:43 | External Medical Summary Rpt | CCD ---
Author Author , RANDALL PEREIRA Address Unknown Phone [email or web address] Immunization Name Date Rout CVX Reac Dose [...]
--- OUTSIDE RECORDS SUMMARY | 2017-03-29 23:43 | External Medical Summary Rpt | CCD ---
Demographics Preferred Language Upper Sorbian Marital Status Unknown Druze Affiliation Unknown Race Unknown Ethnic Group Unknown Author Author , RANDALL PEREIRA Address Unknown Phone [email or web address] Team Providers Care Meat Grader Name Role Phone [facility] Unavailable Unavailable [phone] # [phone], [facility] [phone] # [phone] Purpose Continuity of Care Document - 09-05-2009 [...]
[2017-03-29 23:52] LABS: LYMPH # 3.4 K/mm3 (0.7-4.5)
[2017-03-29] MEDS ORDERED: AMOXICILLIN 50500 MG PO (23:56)
[2017-03-30 00:06] LABS: HEMOGLOBIN 13.8 g/dL (14.1-18.0)
[2017-03-30 00:16] LABS: BUN 13 mg/dL (7-18)
[2017-03-30 00:19] LABS: GFR (ESTIMATED) 59 ML/MIN (>60)
[2017-03-30 00:33] LABS: URINE BILIRUBIN - DIPSTICK 3+ (NEG); URINE BLOOD NEGATIVE (NEG)
--- NOTE | 2017-03-30 00:57 | Emergency Room Report ---
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 STARTED AT 2199 AND STATES ITS WORSE WITH DEEP RESPIRATIONS AND DOESNT RADIATE. 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 N Clinical Suspician of Infection? Y Mental Status: 1 - Regular (Normal Baseline) Sepsis Risk:Severe Sepsis Risk Have you (or family members/close friends) recently traveled outside the [place]? N If Yes, where/when: Have you had exposure to infectious disease within the past month? N TB? Other? Specify: Source patient, RN notes reviewed, EMS, old records Exam Limitations no limitations Comment pt with prod cough and ant chest pain assoc with resp - pt has pacemaker -pt with no hemoptysis and denied abd pain or melena Cardiac Chest Pain Chest pain indicative of cardiac No Timing/Duration this evening Severity moderate ALLERGIES Coded Allergies: No Known Allergies (02/15/17) Home Medications Active Scripts Azithromycin (Zithromax) 250 MG PO DAILY #6 TAB Prov: 02/16/17 CEFDINIR (Cefdinir) 300 MG PO BID #14 CAP Prov: 02/16/17 HYDROCODONE/ACETAMINOPHEN (Hydrocodon-Acetaminoph 7.5-325) 1 TAB PO BID #60 TAB Prov: 11/19/16 Bisoprolol Fumarate 10 MG PO BID #60 TAB Ref 2 Prov: 12/07/16 Reported Medications UMECLIDINIUM BRM/VILANTEROL TR (Anoro Ellipta 62.5-25 Mcg INH) 1 PUFF IH DAILY Omeprazole (Omeprazole 20MG) 40 MG PO DAILY 30 Days CETIRIZINE HCL (Cetirizine 10MG) 10 MG PO DAILYP PRN ALLERGIES Fluticasone Furoate (Arnuity Ellipta) 100 MCG IH DAILY NITROGLYCERIN (Nitrostat) 0.4 MG SL [id number] PRN CHEST PAIN Roflumilast (Daliresp) 500 MCG PO DAILY Aspirin (Aspirin EC) 81 MG PO DAILY 30 Days Amoxicillin Trihydrate (Amoxicillin 500MG) 500 MG PO TID #42 Cyclobenzaprine Hcl (Cyclobenzaprine 10MG) 10 MG PO DAILY TAMSULOSIN HCL (Tamsulosin 0.4MG) 0.4 MG PO QHS Digoxin (Digitek) 250 MCG PO DAILY History Medical History General CAD? Yes Angina: No [place]: Yes Hypertension? Yes Hyperlipidemia? Yes CHF? No DVT? No PE? No COPD? Yes Asthma? Yes Anemia? No GERD? No Gastric ulcers? No GI Bleed? No Hernia? No Thyroid Problems? No Hypothyroidism? No CVA? No Seizures? No Diabetes? No Renal Insuffiency? No End Stage Renal Disease? No UTI? No Stones? No BPH? No GB Disease: No Nephritic Syndrome? No Asplenia? No Hepatitis? No Sickle Cell Disease? No Arthritis? No Migraines? No Cataracts? Yes Glaucoma? No MRSA? No HIV? No TB? No Anxiety? No Depression? No Cancer? No More? Yes Additional hx: ATRIAL FIB Immunization Hx DT/Tetanus 1-4 Years Ago Flu Refused Pneumonia Received In Past Surgical Hx Previous Surgery?Y HERNIA REPAIR 1960'S LT MUSCLE ARM & LEG RIGHT KNEE SURGERY CATARACTS ON R EYE HERNIA 2016 CARDIAC PACER 10/25/16 Family History Family Hx Diabetes No CAD No Hypertension Yes Hyperlipidemia No Cancer No TB No Social History Smoking Hx Smoker: Current Every Day Smoker Tobacco: Yes Type Cigarettes Packs/day < 1 Pack Alcohol Alcohol: No Drugs none Review of Systems All Other Systems Reviewed and Negative Constitutional denies fever Eyes denies drainage ENT denies: ear discharge, epistaxis, throat pain. Respiratory cough, denies shortness of breath, denies wheezing Cardiovascular see HPI, chest pain, denies palpitations, denies syncope Gastrointestinal denies abdominal pain, denies diarrhea, denies vomiting Genitourinary denies: dysuria, frequency, hesitancy, hematuria. Musculoskeletal denies back pain, denies joint pain, denies joint swelling, denies neck pain Skin denies rash Psychiatric/Neurological denies headache, denies seizure Physical Exam Vital Signs Vital Signs Date Time Temp Pulse Resp B/P Pulse O2 O2 Flow FiO2 Ox Delivery Rate 03/30 0451 98.2 70 20 144/89 96 2 03/30 0301 75 22 139/85 98 03/30 0212 70 24 110/70 98 03/30 0055 98.2 70 24 107/68 98 03/30 0010 70 24 125/83 97 2 03/30 0004 24 03/29 2355 98.2 70 24 125/83 98 2 03/29 2354 24 03/29 2350 98.2 70 24 128/74 97 2 03/29 2345 24 03/29 2321 98.2 69 24 134/77 97 2 - WBC >12,000 or <4,000 or 10% bands? 2 or more SIRS Criteria Met? B/P:144/89 MAP:96 Creatinine >2.0? UA output<0.5ml/kg/hr for 2 hrs? Platelet count >100,000? Lactate >2.0mmol/1? INR >1.2 or PTT > than 60 sec? Evidence of Organ Dysfunction? Provider documented clinical suspician of infection? Y Sepsis Criteria Count: 2 Sepsis Risk: Severe Sepsis Risk General Appearance no apparent distress Eye Exam - bilateral eye PERRL, bilateral eye EOMI, bilateral eye icterus Ear, Nose, Throat normal ENT inspection Neck supple Respiratory Status No: respiratory distress. Lung Sounds bilateral: rhonchi. 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 No Results/Orders Laboratory Tests 03/30/17 0025: Urine Color DK YELLOW, Urine Appearance CLEAR, Urine pH 6.0, Ur Specific [place] 1.025, Urine Protein TRACE H, Urine Ketones TRACE H, Urine Blood NEGATIVE, Urine Nitrate NEGATIVE, Urine Bilirubin 3+ H, Urine Urobilinogen 4.0, Ur Leukocyte Esterase NEGATIVE, Urine WBC 3-5, Ur Squamous Epith Cells OCC, Urine Glucose NEGATIVE 03/30/17 0000: Digoxin 1.45 03/30/17 0000: Troponin I < 0.02, ESR 8, Hepatitis A Ab Total Pending, Hep Bs Antigen Pending, Hep Bs Antibody Pending, Hep B Core Total Ab Pending, Hepatitis C Antibody Pending, Acetaminophen 0 L 03/29/172335: Lactic Acid 1.1 03/29/172335: Sodium 121 L, Potassium 3.6, Chloride 99, Carbon Dioxide 27, BUN 13, Creatinine 1.2, Estimated Creat Clear 66, Estimated GFR (MDRD) 59, Glucose 141 H, Calcium 8.1 L, Total Bilirubin 4.4 H, AST 168 H, ALT 204 H, Alkaline Phosphatase 365 H, Creatine Kinase 18 L, CK-MB (CK-2) Rel Index 2.8, CK and CKMB Interp 0.5, Troponin I < 0.02, Total Protein 6.6, Albumin 2.7 L, Globulin 3.9 H, Albumin/ Globulin Ratio 0.7 L, WBC 18.0 H, RBC 5.28, Hgb 13.8 L, Hct 44.3, MCV 83.9, RDW 16.6, Plt Count 208, MPV 10.1, Gran % 72.0, Gran # 13.0 H, Total Counted 100, Lymphocytes % 19.0, Monocytes % 4.3, Eosinophils % 4.0, Basophils % 0.7, Neutrophils 72, Lymphocytes (Manual) 14, Lymphocytes # 3.4, Monocytes (Manual) 9 , Monocytes # 0.8, Eosinophils # 0.7 H, Eosinophils # (Manual) 5 H, Basophils # 0.1, Platelet Estimate NORMAL, PUBS MCHC 31.0 L, MCH 26.0 L Current Medication Orders Sig/Martin Start time Last Medication Dose Route Stop Time Status Admin Nitroglycerin 0.4 MG [id number] PRN 03/29 2345 AC 03/30 SL 0004 Sodium Chloride 10 ML PRN PRN 03/29 2345 AC IV 03/30 2341 Nitroglycerin 0 .STK-MED ONE 03/29 2344 DC Orders Procedure Date/time Status DIET-NOTHING BY MOUTH 03/30 B Active Acetaminophen 03/[address] CHEST W/O CONTRAST 03/[address] ABD & PELVIS W/O CONTRAST 03/30 112 Active TROPONIN I 03/30 110 Complete HEPATITIS PROFILE (A,B,&C) 03/30 109 Active SED RATE 03/[address] SCAN REQ 03/30 0108 Active URINALYSIS/COMPLETE 03/30 0016 Complete DIGOXIN 03/30 0000 Complete IV SALINE LOCK 03/29 2342 Active CULTURE, BLOOD 03/29 2342 Active LACTIC ACID 03/29 2342 Complete DIFFERENTIAL-WBC 03/29 2336 Complete CHEST-PORTABLE 03/29 232 Active 12 LEAD EKG-GLENN (INITIAL) 03/29 2328 Active ELECTROCARDIOGRAM REQUEST 03/29 2328 Active IV SALINE LOCK 03/29 2328 Active GAS STATION CASHIER 03/29 2328 Active CBC WITH AUTO DIFF 03/29 2328 Complete CARDIAC ENZYMES 03/29 2328 Complete CHEM 12 PROFILE 03/29 2328 Complete CM/EKG 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 Rhythm Paced Rhythm EKG compared w/(date of old), RBBB XRAY/CT/US XRAY/CT/US 1 XRAY chest XR interpretation by reviewed by me Xray Results abnormal XRAY/CT/US 2 CT abdomen, pelvis, chest CT interpretation by discussed w/radiologist Time results known: 05 CT Results abnormal (see report) Departure Departure Time of Disposition 518 Disposition DC Home or Self Care(routine) Clinical Impression Primary Impression: Bronchitis Secondary Impressions: Cardiac pacemaker in situ, Elevated LFTs Condition STABLE Referrals Fletcher Gunderson MD (Family) discussed with dr gunderson Patient Instructions DI for Cough -- Adult Additional Instructions call dr gunderson for follow up this week Discharge Counseling Counseled pt/family regarding diagnosis, test results, medications/RX, follow up needs ED Critical Care Critical Care No at [id number]
--- NOTE | 2017-03-30 00:57 | Emergency Room Report ---
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 STARTED AT 2199 AND STATES ITS WORSE WITH DEEP RESPIRATIONS AND DOESNT RADIATE. C/O PROCUTIVE COUGH WITH YELLOW/BROWN SPUTUM Onset of symptoms date/time:03/29/1712/06/2199 or onset unknown for: Treatment Prior to Arrival: EMS TRANSPORT TEAROOM HOST Provided by:RETAIL SALES DIRECTOR Sepsis Risk Assessment: Temp: 98.2 B/P: 125/83 MAP: 96 Pulse: 70 Resp: 24 Recent fever? N Clinical Suspician of Infection? Y Mental Status: 1 - Regular (Normal Baseline) Sepsis Risk:Severe Sepsis Risk Have you (or family members/close friends) recently traveled outside the [place]? N If Yes, where/when: Have you had exposure to infectious disease within the past month? N TB? Other? Specify: Source patient, RN notes reviewed, EMS, old records Exam Limitations no limitations Comment pt with prod cough and ant chest pain assoc with resp - pt has pacemaker -pt with no hemoptysis and denied abd pain or melena Cardiac Chest Pain Chest pain indicative of cardiac No Timing/Duration this evening Severity moderate ALLERGIES Coded Allergies: No Known Allergies (02/15/17) Home Medications Active Scripts Azithromycin (Zithromax) 250 MG PO DAILY #6 TAB Prov: 02/16/17 CEFDINIR (Cefdinir) 300 MG PO BID #14 CAP Prov: 02/16/17 HYDROCODONE/ACETAMINOPHEN (Hydrocodon-Acetaminoph 7.5-325) 1 TAB PO BID #60 TAB Prov: 11/19/16 Bisoprolol Fumarate 10 MG PO BID #60 TAB Ref 2 Prov: 12/07/16 Reported Medications UMECLIDINIUM BRM/VILANTEROL TR (Anoro Ellipta 62.5-25 Mcg INH) 1 PUFF IH DAILY Omeprazole (Omeprazole 20MG) 40 MG PO DAILY 30 Days CETIRIZINE HCL (Cetirizine 10MG) 10 MG PO DAILYP PRN ALLERGIES Fluticasone Furoate (Arnuity Ellipta) 100 MCG IH DAILY NITROGLYCERIN (Nitrostat) 0.4 MG SL [id number] PRN CHEST PAIN Roflumilast (Daliresp) 500 MCG PO DAILY Aspirin (Aspirin EC) 81 MG PO DAILY 30 Days Amoxicillin Trihydrate (Amoxicillin 500MG) 500 MG PO TID #42 Cyclobenzaprine Hcl (Cyclobenzaprine 10MG) 10 MG PO DAILY TAMSULOSIN HCL (Tamsulosin 0.4MG) 0.4 MG PO QHS Digoxin (Digitek) 250 MCG PO DAILY History Medical History General CAD? Yes Angina: No [place]: Yes Hypertension? Yes Hyperlipidemia? Yes CHF? No DVT? No PE? No COPD? Yes Asthma? Yes Anemia? No GERD? No Gastric ulcers? No GI Bleed? No Hernia? No Thyroid Problems? No Hypothyroidism? No CVA? No Seizures? No Diabetes? No Renal Insuffiency? No End Stage Renal Disease? No UTI? No Stones? No BPH? No GB Disease: No Nephritic Syndrome? No Asplenia? No Hepatitis? No Sickle Cell Disease? No Arthritis? No Migraines? No Cataracts? Yes Glaucoma? No MRSA? No HIV? No TB? No Anxiety? No Depression? No Cancer? No More? Yes Additional hx: ATRIAL FIB Immunization Hx DT/Tetanus 1-4 Years Ago Flu Refused Pneumonia Received In Past Surgical Hx Previous Surgery?Y HERNIA REPAIR 1960'S LT MUSCLE ARM & LEG RIGHT KNEE SURGERY CATARACTS ON R EYE HERNIA 2016 CARDIAC PACER 10/25/16 Family History Family Hx Diabetes No CAD No Hypertension Yes Hyperlipidemia No Cancer No TB No Social History Smoking Hx Smoker: Current Every Day Smoker Tobacco: Yes Type Cigarettes Packs/day < 1 Pack Alcohol Alcohol: No Drugs none Review of Systems All Other Systems Reviewed and Negative Constitutional denies fever Eyes denies drainage ENT denies: ear discharge, epistaxis, throat pain. Respiratory cough, denies shortness of breath, denies wheezing Cardiovascular see HPI, chest pain, denies palpitations, denies syncope Gastrointestinal denies abdominal pain, denies diarrhea, denies vomiting Genitourinary denies: dysuria, frequency, hesitancy, hematuria. Musculoskeletal denies back pain, denies joint pain, denies joint swelling, denies neck pain Skin denies rash Psychiatric/Neurological denies headache, denies seizure Physical Exam Vital Signs Vital Signs Date Time Temp Pulse Resp B/P Pulse O2 O2 Flow FiO2 Ox Delivery Rate 03/30 0451 98.2 70 20 144/89 96 2 03/30 0301 75 22 139/85 98 03/30 0212 70 24 110/70 98 03/30 0055 98.2 70 24 107/68 98 03/30 0010 70 24 125/83 97 2 03/30 0004 24 03/29 2355 98.2 70 24 125/83 98 2 03/29 2354 24 03/29 2350 98.2 70 24 128/74 97 2 03/29 2345 24 03/29 2321 98.2 69 24 134/77 97 2 - WBC >12,000 or <4,000 or 10% bands? 2 or more SIRS Criteria Met? B/P:144/89 MAP:96 Creatinine >2.0? UA output<0.5ml/kg/hr for 2 hrs? Platelet count >100,000? Lactate >2.0mmol/1? INR >1.2 or PTT > than 60 sec? Evidence of Organ Dysfunction? Provider documented clinical suspician of infection? Y Sepsis Criteria Count: 2 Sepsis Risk: Severe Sepsis Risk General Appearance no apparent distress Eye Exam - bilateral eye PERRL, bilateral eye EOMI, bilateral eye icterus Ear, Nose, Throat normal ENT inspection Neck supple Respiratory Status No: respiratory distress. Lung Sounds bilateral: rhonchi. Cardiovascular regular rate/rhythm, systolic murmur Peripheral Pulses Pulses normal Yes Gastrointestinal soft, no organomegaly, no pulsatile mass, no guarding, no rebound Back no CVA tenderness Extremities normal inspection Strength 4 Upper Ext (L), 4 Upper Ext (R), 4 Lower Ext (L), 4 Lower Ext (R) Neurologic alert, sports trainer II-XII nml as tested, no motor/sensory deficits Reflexes Reflexes normal No Mental status normal mood/affect Skin no rash cons.w/shingles Medical Decision Making LABS/Meds/Orders Pt receiving controlled substance in ED? No Results/Orders Laboratory Tests 03/30/17 0025: Urine Color DK YELLOW, Urine Appearance CLEAR, Urine pH 6.0, Ur Specific [place] 1.025, Urine Protein TRACE H, Urine Ketones TRACE H, Urine Blood NEGATIVE, Urine Nitrate NEGATIVE, Urine Bilirubin 3+ H, Urine Urobilinogen 4.0, Ur Leukocyte Esterase NEGATIVE, Urine WBC 3-5, Ur Squamous Epith Cells OCC, Urine Glucose NEGATIVE 03/30/17 0000: Digoxin 1.45 03/30/17 0000: Troponin I < 0.02, ESR 8, Hepatitis A Ab Total Pending, Hep Bs Antigen Pending, Hep Bs Antibody Pending, Hep B Core Total Ab Pending, Hepatitis C Antibody Pending, Acetaminophen 0 L 03/29/172335: Lactic Acid 1.1 03/29/172335: Sodium 121 L, Potassium 3.6, Chloride 99, Carbon Dioxide 27, BUN 13, Creatinine 1.2, Estimated Creat Clear 66, Estimated GFR (MDRD) 59, Glucose 141 H, Calcium 8.1 L, Total Bilirubin 4.4 H, AST 168 H, ALT 204 H, Alkaline Phosphatase 365 H, Creatine Kinase 18 L, CK-MB (CK-2) Rel Index 2.8, CK and CKMB Interp 0.5, Troponin I < 0.02, Total Protein 6.6, Albumin 2.7 L, Globulin 3.9 H, Albumin/ Globulin Ratio 0.7 L, WBC 18.0 H, RBC 5.28, Hgb 13.8 L, Hct 44.3, MCV 83.9, RDW 16.6, Plt Count 208, MPV 10.1, Gran % 72.0, Gran # 13.0 H, Total Counted 100, Lymphocytes % 19.0, Monocytes % 4.3, Eosinophils % 4.0, Basophils % 0.7, Neutrophils 72, Lymphocytes (Manual) 14, Lymphocytes # 3.4, Monocytes (Manual) 9 , Monocytes # 0.8, Eosinophils # 0.7 H, Eosinophils # (Manual) 5 H, Basophils # 0.1, Platelet Estimate NORMAL, PUBS MCHC 31.0 L, MCH 26.0 L Current Medication Orders Sig/Martin Start time Last Medication Dose Route Stop Time Status Admin Nitroglycerin 0.4 MG [id number] PRN 03/29 2345 AC 03/30 SL 0004 Sodium Chloride 10 ML PRN PRN 03/29 2345 AC IV 03/30 2341 Nitroglycerin 0 .STK-MED ONE 03/29 2344 DC Orders Procedure Date/time Status DIET-NOTHING BY MOUTH 03/30 B Active Acetaminophen 03/[address] CHEST W/O CONTRAST 03/[address] ABD & PELVIS W/O CONTRAST 03/30 112 Active TROPONIN I 03/30 110 Complete HEPATITIS PROFILE (A,B,&C) 03/30 109 Active SED RATE 03/[address] SCAN REQ 03/30 0108 Active URINALYSIS/COMPLETE 03/30 0016 Complete DIGOXIN 03/30 0000 Complete IV SALINE LOCK 03/29 2342 Active CULTURE, BLOOD 03/29 2342 Active LACTIC ACID 03/29 2342 Complete DIFFERENTIAL-WBC 03/29 2336 Complete CHEST-PORTABLE 03/29 232 Active 12 LEAD EKG-GLENN (INITIAL) 03/29 2328 Active ELECTROCARDIOGRAM REQUEST 03/29 2328 Active IV SALINE LOCK 03/29 2328 Active WARDROBE SPECIALTY WORKER 03/29 2328 Active CBC WITH AUTO DIFF 03/29 2328 Complete CARDIAC ENZYMES 03/29 2328 Complete CHEM 12 PROFILE 03/29 2328 Complete CM/EKG CM/vendor management consultant Rhythm Paced Rhythm EKG compared w/(date of old), RBBB XRAY/CT/US XRAY/CT/US 1 XRAY chest XR interpretation by reviewed by me Xray Results abnormal XRAY/CT/US 2 CT abdomen, pelvis, chest CT interpretation by discussed w/radiologist Time results known: 05 CT Results abnormal (see report) Departure Departure Time of Disposition 518 Disposition DC Home or Self Care(routine) Clinical Impression Primary Impression: Bronchitis Secondary Impressions: Cardiac pacemaker in situ, Elevated LFTs Condition STABLE Referrals Fletcher Gunderson MD (Family) discussed with dr gunderson Patient Instructions DI for Cough -- Adult Additional Instructions call dr gunderson for follow up this week Discharge Counseling Counseled pt/family regarding diagnosis, test results, medications/RX, follow up needs ED Critical Care Critical Care No at 0501
[2017-03-30 01:11] LABS: NEUTROPHILS 72 % (42-76)
[2017-03-30 01:37] LABS: URINE SQUAMOUS CELLS OCC #/hpf (OCC)
--- NOTE | 2017-03-30 08:50 | RADIOLOGY REPORT PS360 ---
CHEST-PORTABLE COMPARISON: Portable upright chest 02/15/2017 HISTORY: S pain TECHNIQUE: Portable upright chest FINDINGS: The lung kingsley are well expanded. And appear clear of infiltrate. Chronic pleural-parenchymal scarring seen at both lung bases with linear pleural calcification along both lower lateral chest hein. There is chronic pleural scarring and blunting of both costo phrenic angles. The cardiac pacemaker and dual chamber electrodes are again noted. Cardiac size is normal and is no evidence of failure. IMPRESSION: Nonacute chest findings
--- NOTE | 2017-03-30 08:53 | RADIOLOGY REPORT PS360 ---
CT CHEST W/O CONTRAST COMPARISON: None HISTORY: Chest pain TECHNIQUE: Multiple axial scans obtained from the thoracic inlet the hemidiaphragms and were performed without IV contrast. Sagittal and coronal reformats were evaluated as well. FINDINGS: The lung kingsley are well expanded. The lung apices are clear. The screw mistiming is unremarkable. There is no acute pneumonic infiltrate. There is a calcified granuloma left lower lobe. There is diffuse pleural scarring along the posterior lateral chest hein bilaterally with focal pleural calcification in the right costo phrenic angle. Suggest clinical correlation for exposure to asbestos. There is borderline cardio megaly and there is a cardiac pacemaker with dual chamber electrodes in place. IMPRESSION: Chronic pleural-parenchymal scarring at both lung bases with prominent pleural calcination right lower lateral chest wall, no acute chest pathology noted, I agree the [facility] report
--- NOTE | 2017-03-30 09:11 | RADIOLOGY REPORT PS360 ---
CT ABD PELVIS W/O CONTRAST COMPARISON: CT scan abdomen pelvis 08/24/2015 HISTORY: Generalized abdominal pain TECHNIQUE: Multiple axial scans obtained from the hemidiaphragms the pelvic floor and were performed without IV or oral contrast. Sagittal coronal reformats were evaluated as well. FINDINGS: There are chronic changes in the lower lung kingsley described on the CT scan of the chest report. The liver is normal size and shows diffuse fatty infiltration. Stomach is distended with ingested food particles. The spleen pancreas and gallbladder appear grossly normal. The adrenal glands are normal. There is slight enlargement of the left adrenal gland maintaining its adreniform shape suggesting mild hyperplasia, the right adrenal gland is normal. The kidneys are normal in size and there are no calculi and is no obstructive uropathy. The small bowel appears normal. I do not definitely identify the appendix but there are no pericecal inflammatory changes. There is moderate scattered stool throughout the colon. There is especially large amount stool in the lower sigmoid colon and rectum. The urinary bladder is partially decompressed, the prostate is normal size containing multiple calcifications. IMPRESSION: Findings as described, no acute abdominal or pelvic pathology identified, I agree with the [facility] report
[2017-03-30 10:46] VITALS: BP 144/94
[2017-04-02 04:39] LABS: HBsAg Screen Negative (Negative); Hep A Ab, IgM Negative (Negative); Hep B Core Ab, IgM Negative (Negative); Hep C Virus Ab <0.1 (0.0-0.9)
[2017-04-19] MEDS ORDERED: BACTRIM DS 8001 TA1 PO (07:23)
== END 2017-03-30 10:45 | disposition home or self-care (01) ==
LOC: ER 23:18
PROVIDERS: Emergency Medicine
DX: J44.9 Chronic obstructive pulmonary disease, unspecified (principal); Z95.0 Presence of cardiac pacemaker; I25.10 Atherosclerotic heart disease of native coronary artery without angina pectoris; I25.2 Old myocardial infarction; I10 Essential (primary) hypertension; E78.5 Hyperlipidemia, unspecified; F17.210 Nicotine dependence, cigarettes, uncomplicated; R79.89 Other specified abnormal findings of blood chemistry; Z79.82 Long term (current) use of aspirin; Z79.51 Long term (current) use of inhaled steroids; Z79.899 Other long term (current) drug therapy